=== PATIENT | male | born 1950 | race Caucasian/White ===

== ENCOUNTER 2020-03-23 05:42 | Inpatient (IN) | payer OTHER, SELFPAY ==
[2020-03-23 06:06] VITALS: BP 149/61; PULSE 60; RESP 18; TEMP 36.8; O2SAT 98; BMI 22.0
--- NOTE | 2020-03-23 06:43 | ED_ITS ---
HPI - Extremity Problem General Chief complaint: General Medical Stated complaint: SWOLLEN HAND/INJURY Time Seen by Provider: 03/23/20 06:42 Source: patient Mode of arrival: ambulatory Limitations: no limitations History of Present Illness HPI Narrative: working on tractor screw punctured L hand near thenar eminence, removed it cleansed, hand swollen with fevers and now has streaking rash up arm MD Complaint: extremity pain and extremity swelling Onset (ago): day(s) (yesterday) Pain Consistency: constant Location: left Quality: stabbing and aching Radiation: none Relieving factors: nothing Exacerbating factors: range of motion Associated symptoms: fever and rash Context: recent travel Related Data Allergies Allergy/AdvReac Type Severity Reaction Status Date / Time aspirin Allergy Unknown Unknown Verified 03/23/20 07:05 gabapentin [Neurontin] Allergy Unknown Unknown Verified 03/23/20 07:05 Codeine Sulfate AdvReac Unknown vomiting Uncoded 05/29/16 00:00 Review of Systems Review of Systems: Constitutional : pos Fever, No Chills ENT/Mouth : No sore throat, No Rhinorrhea Eyes: No Eye Pain, No Swelling, No Redness Cardiovascular : No Chest Pain, No SOB Respiratory : No Cough, No Sputum Gastrointestinal : No Nausea, No Vomiting, No Diarrhea, No abdominal Pain Genitourinary : No Dysuria, No Hematuria Musculoskeletal : pos joint pain, No Myalgias, No Joint Swelling Skin : pos Skin Lesions, positive skin rash Neuro : No Weakness, No Numbness, No Headache Psych : No Anxiety, No Depression Heme/Lymph: No Bruising, No Bleeding,No Lymphadenopathy Endocrine : No Polyuria, No Polydipsia All other systems reviewed and are negative [facility] Past Medical History Medical History Back pain Diaphragm injury Herniated disc Liver laceration Pelvis fracture Sciatica Surgical History H/O ankle fusion H/O knee surgery Social History Social History (Updated 03/23/20 @ 07:06 by Teena Durand DO) Smoking Status: Never smoker Use of substances other than those prescribed or required for medical reasons: No Advance Directives: No Physical Exam Vital Signs: Vital Signs: Last Vital Signs Temp 98.2 F 03/23/20 06:06 Pulse 60 03/23/20 06:06 Resp 18 03/23/20 06:06 BP 149/61 H 03/23/20 06:06 Pulse Ox 98 03/23/20 06:06 Body Mass Index 22.0 Appearance: Alert. Oriented X3. No acute distress. Eyes: Pupils equal, round and reactive to light. ENT: Pharynx normal. Neck: Normal inspection. Neck supple. CVS: Normal heart rate and rhythm. Pulses normal. Respiratory: No respiratory distress. Breath sounds normal. Abdomen: Soft and nontender. Skin: Skin warm and dry. L arm lymphangitis to elbow, L hand swollen thenar eminence with puncture wound no drainage swelling on palmar and dorsum of hand, ROM intact, NV intact Extremities: No lower extremity edema. No calf ttp Neuro: Oriented X 3. No motor deficit. No sensory deficit. Course Course Course Narrative: message sent to Dr. Dobbins with pictures of hand Dr. Dobbins has seen the patient in the hospital - no need for surgery at this time, will admit for IV antibiotics given cellulitis/fevers/lymphangitis MDM - Extremity (Nontraumatic) MDM Narrative Medical decision making narrative: 69 yo male with puncture wound to left hand now with cellulitis and swelling, lymphangitis will need labs, cultures, xray for retained FB, IV antibiotics discuss with Dr. Dobbins will need admission for IV antibiotics Lab Data Result diagrams: 03/23/20 07:42 03/23/20 07:42 Labs: Lab Results 03/23/20 03/23/20 03/23/20 Range/Units 06:38 06:38 06:38 WBC 10.0 (4.8-10.8) X10*3/uL RBC 4.54 L (4.60-5.80) X10*6/uL Hgb 13.4 L (14.0-18.0) g/dl Hct 41.0 L (42-52) % MCV 90.3 (80-98) fL MCH 29.5 (27.0-33.0) pg MCHC 32.7 (31.0-36.0) g/dl RDW 12.1 (11.0-16.0) % Plt Count 214 (160-400) X10*3/uL MPV 9.8 (9.4-12.4) fL Immature Gran % (Auto) 0.3 (0.0-0.4) % Neut % (Auto) 78.4 H (45-73) % Lymph % (Auto) 10.6 L (20-40) % [place] % (Auto) 9.0 (2-11) % Eos % (Auto) 1.5 (0-4) % Baso % (Auto) 0.2 (0-2) % Lymph # (Auto) 1.1 L (1.2-4.9) X10*3/uL [place] # (Auto) 0.9 (0.1-1.2) X10*3/uL Eos # (Auto) 0.2 (0.0-0.4) X10*3/uL Baso # (Auto) 0.0 (0.0-0.2) X10*3/uL Abs Immat Gran (auto) 0.03 (0.00-0.03) X10*3/uL Absolute Neuts (auto) 7.8 (2.0-8.3) X10*3/uL Absolute Nucleated RBC 0.000 (0.0-0.012) X10*3/uL Nucleated RBC % (auto) 0.0 (0.0-0.2) /100WBC PT (10.8-13.0) SEC INR (0.9-1.1) APTT (24.1-38.0) SEC Hold Blue Top Sodium Cancelled Potassium Cancelled Chloride Cancelled Carbon Dioxide Cancelled Anion Gap Cancelled BUN Cancelled Creatinine Cancelled Estim Creat Clear Calc Cancelled Estimated GFR Cancelled Random Glucose Cancelled Lactic Acid 1.5 (0.5-2.0) mmol/L Calcium Cancelled Magnesium (1.6-2.6) mg/dL Total Bilirubin Cancelled Direct Bilirubin (0.0-0.5) mg/dL AST Cancelled ALT Cancelled Alkaline Phosphatase Cancelled Total Protein Cancelled Albumin Cancelled COVID-19 (MILIND) (Negative) COVID-19 Clin Com 03/23/20 03/23/20 03/23/20 Range/Units 07:42 07:42 07:42 WBC 9.5 (4.8-10.8) X10*3/uL RBC 4.36 L (4.60-5.80) X10*6/uL Hgb 12.8 L (14.0-18.0) g/dl Hct 39.3 L (42-52) % MCV 90.1 (80-98) fL MCH 29.4 (27.0-33.0) pg MCHC 32.6 (31.0-36.0) g/dl RDW 12.0 (11.0-16.0) % Plt Count 205 (160-400) X10*3/uL MPV 10.0 (9.4-12.4) fL Immature Gran % (Auto) 0.3 (0.0-0.4) % Neut % (Auto) 78.8 H (45-73) % Lymph % (Auto) 10.4 L (20-40) % [place] % (Auto) 8.8 (2-11) % Eos % (Auto) 1.5 (0-4) % Baso % (Auto) 0.2 (0-2) % Lymph # (Auto) 1.0 L (1.2-4.9) X10*3/uL [place] # (Auto) 0.8 (0.1-1.2) X10*3/uL Eos # (Auto) 0.1 (0.0-0.4) X10*3/uL Baso # (Auto) 0.0 (0.0-0.2) X10*3/uL Abs Immat Gran (auto) 0.03 (0.00-0.03) X10*3/uL Absolute Neuts (auto) 7.5 (2.0-8.3) X10*3/uL Absolute Nucleated RBC 0.000 (0.0-0.012) X10*3/uL Nucleated RBC % (auto) 0.0 (0.0-0.2) /100WBC PT 12.3 (10.8-13.0) SEC INR 1.0 (0.9-1.1) APTT 31.4 (24.1-38.0) SEC Hold Blue Top SEE NOTE Sodium 138 Potassium 4.2 Chloride 103 Carbon Dioxide 28 Anion Gap 11 L BUN 11 Creatinine 0.90 Estim Creat Clear Calc 71.0 Estimated GFR > 60 Random Glucose 97 Lactic Acid (0.5-2.0) mmol/L Calcium 8.8 Magnesium 2.0 (1.6-2.6) mg/dL Total Bilirubin 0.8 Direct Bilirubin 0.4 (0.0-0.5) mg/dL AST 15 ALT 11 Alkaline Phosphatase 67 Total Protein 6.1 L Albumin 3.9 COVID-19 (MILIND) (Negative) COVID-19 Clin Com 03/23/20 03/23/20 Range/Units 07:42 07:42 WBC (4.8-10.8) X10*3/uL RBC (4.60-5.80) X10*6/uL Hgb (14.0-18.0) g/dl Hct (42-52) % MCV (80-98) fL MCH (27.0-33.0) pg MCHC (31.0-36.0) g/dl RDW (11.0-16.0) % Plt Count (160-400) X10*3/uL MPV (9.4-12.4) fL Immature Gran % (Auto) (0.0-0.4) % Neut % (Auto) (45-73) % Lymph % (Auto) (20-40) % [place] % (Auto) (2-11) % Eos % (Auto) (0-4) % Baso % (Auto) (0-2) % Lymph # (Auto) (1.2-4.9) X10*3/uL [place] # (Auto) (0.1-1.2) X10*3/uL Eos # (Auto) (0.0-0.4) X10*3/uL Baso # (Auto) (0.0-0.2) X10*3/uL Abs Immat Gran (auto) (0.00-0.03) X10*3/uL Absolute Neuts (auto) (2.0-8.3) X10*3/uL Absolute Nucleated RBC (0.0-0.012) X10*3/uL Nucleated RBC % (auto) (0.0-0.2) /100WBC PT (10.8-13.0) SEC INR (0.9-1.1) APTT (24.1-38.0) SEC Hold Blue Top Sodium Potassium Chloride Carbon Dioxide Anion Gap BUN Creatinine Estim Creat Clear Calc Estimated GFR Random Glucose Lactic Acid 0.5 (0.5-2.0) mmol/L Calcium Magnesium (1.6-2.6) mg/dL Total Bilirubin Direct Bilirubin (0.0-0.5) mg/dL AST ALT Alkaline Phosphatase Total Protein Albumin COVID-19 (MILIND) Negative (Negative) COVID-19 Clin Com See Note Discharge Plan Discharge Clinical Impression: Cellulitis, Puncture wound Patient Disposition: Admitted As Inpatient
--- NOTE | 2020-03-23 06:43 | XR_ITS ---
EXAMINATION: LEFT HAND 3 VIEWS CLINICAL INFORMATION: Concern for foreign body. COMPARISON: None. TECHNIQUE: PA, lateral, oblique views of the left hand were obtained. FINDINGS: There are no fractures or dislocations. There is no significant soft tissue swelling. There is mild degenerative change at the first carpal metacarpal joint. There are no demonstrable radiopaque foreign bodies. XR/XR hand LT min 3V IMPRESSION: No demonstrable radiopaque foreign bodies.
[2020-03-23 06:46] LABS: MANUAL DIFF FLAG NO
[2020-03-23 06:53] LABS: Basophils Percent Auto 0.2 % (0-2); Eosinophils Absolute Auto 0.2 X10*3/uL (0.0-0.4); Eosinophils Percent Auto 1.5 % (0-4); Hemoglobin 13.4 g/dl (14.0-18.0); Imm Gran Abs Auto 0.03 X10*3/uL (0.00-0.03); Imm Gran Pct Auto 0.3 % (0.0-0.4); Lymphocytes Absolute Auto 1.1 X10*3/uL (1.2-4.9); Lymphocytes Percent Auto 10.6 % (20-40); Mean Corpuscular HGB Conc 32.7 g/dl (31.0-36.0); Mean Corpuscular Hemoglobin 29.5 pg (27.0-33.0); Mean Corpuscular Volume 90.3 fL (80-98); Mean Platelet Volume 9.8 fL (9.4-12.4); Monocytes Absolute Auto 0.9 X10*3/uL (0.1-1.2); Neutrophils Absolute Auto 7.8 X10*3/uL (2.0-8.3); Neutrophils Percent Auto 78.4 % (45-73); Platelet Count 214 X10*3/uL (160-400); Red Blood Count 4.54 X10*6/uL (4.60-5.80); Red Cell Distribution Width 12.1 % (11.0-16.0)
--- NOTE | 2020-03-23 07:06 | PC.NURSE ---
REPORT FROM LUZMARIA ZAPIEN.
[2020-03-23 07:09] LABS: Lactic Acid 1.5 mmol/L (0.5-2.0)
[2020-03-23 07:51] LABS: MANUAL DIFF FLAG NO
[2020-03-23 07:52] LABS: Basophils Percent Auto 0.2 % (0-2); Eosinophils Absolute Auto 0.1 X10*3/uL (0.0-0.4); Eosinophils Percent Auto 1.5 % (0-4); Hematocrit 39.3 % (42-52); Hemoglobin 12.8 g/dl (14.0-18.0); Imm Gran Abs Auto 0.03 X10*3/uL (0.00-0.03); Imm Gran Pct Auto 0.3 % (0.0-0.4); Lymphocytes Percent Auto 10.4 % (20-40); Mean Corpuscular HGB Conc 32.6 g/dl (31.0-36.0); Mean Corpuscular Hemoglobin 29.4 pg (27.0-33.0); Mean Corpuscular Volume 90.1 fL (80-98); Monocytes Absolute Auto 0.8 X10*3/uL (0.1-1.2); Monocytes Percent Auto 8.8 % (2-11); Neutrophils Absolute Auto 7.5 X10*3/uL (2.0-8.3); Neutrophils Percent Auto 78.8 % (45-73); Platelet Count 205 X10*3/uL (160-400); Red Blood Count 4.36 X10*6/uL (4.60-5.80); White Blood Count 9.5 X10*3/uL (4.8-10.8)
[2020-03-23 07:56] LABS: Prothrombin Time 12.3 SEC (10.8-13.0)
[2020-03-23] MEDS: Piperacillin Sodium/Tazobactam 3.375 GM in 0.9 % Sodium Chloride 50 ML IV ×3 (07:58→20:11)
[2020-03-23 07:59] LABS: Partial Thromboplastin Time 31.4 SEC (24.1-38.0)
[2020-03-23 08:08] LABS: Lactic Acid 0.5 mmol/L (0.5-2.0)
[2020-03-23 08:12] LABS: Alanine Aminotransferase 11 U/L (0-40); Albumin Level 3.9 g/dL (3.5-5.0); Alkaline Phosphatase 67 U/L (39-117); Anion Gap 11 (12-20); Aspartate Amino Transferase 15 U/L (5-37); Bilirubin Direct 0.4 mg/dL (0.0-0.5); Bilirubin Total 0.8 mg/dL (0.0-1.0); Blood Urea Nitrogen 11 mg/dL (9-16); Calcium 8.8 mg/dL (8.4-10.2); Carbon Dioxide 28 mmol/L (22-29); Chloride 103 mmol/L (96-108); Estimated Glomerular Filt Rate > 60; Glucose Random 97 mg/dL (60-115); Potassium 4.2 mmol/l (3.3-5.1); Sodium 138 mmol/L (135-145); Total Protein 6.1 g/dL (6.5-8.0)
[2020-03-23 08:15] LABS: COVID-19 Test Negative (Negative)
[2020-03-23] MEDS: vancomycin HCL 750 MG in 0.9 % Sodium Chloride 250 ML 265 MG IV ×2 (08:23→20:56)
[2020-03-23] MEDS: 0.9 % Sodium Chloride 500 ML IV (08:26)
[2020-03-23 10:00] VITALS: BP 136/58; PULSE 58; RESP 18; O2SAT 98
--- NOTE | 2020-03-23 10:10 | P.HPHOSP_ITS ---
History of Present Illness Date of Service: 03/23/20 Chief Complaint: fever, chills, left hand injury 69M complaining of fever, chills. patient had injury to left hand on day ptp. he was fixing a lawnmower and a spring penetrating his skin. that evening he had fever and chills that resolved with tylenol. the next day he noted red streaking from hand up arm so he came to ED. in ED patient was afebrile, no signs of sepsis, but had lymphagenic streaking, therefore, hand surgeon consulted who recommended admission for IV abx. xray of hand showed no retained foreign body. ROM is ok, patient was given tDAP, vanc, zosyn. Review of Systems Review of Systems: Constitutional: fever, Chills Eyes: denies blurry vision ENT: denies sore throat CVS: denies chest pain Respiratory: Denies dyspnea GI: no abdominal pain : denies dysuria MSK: denies neck pain Skin: red streaking Neuro: denies specific motor weakness Psych: denies suicidal ideation Endocrine: denies heat/cold intoleratnce Hematologic: denies easy bleeding Allergy: denies hives [facility] Medical History (Updated 03/23/20 @ 09:49 by Aleksey Coats MD) Diaphragm injury Liver laceration Pelvis fracture Sciatica Small bowel obstruction Family History Mother Colon cancer Sister Pancreatic cancer Surgical History H/O ankle fusion H/O knee surgery Social History (Updated 03/23/20 @ 09:51 by Aleksey Coats MD) Smoking Status: Former smoker Use of substances other than those prescribed or required for medical reasons: No Advance Directives: No Meds Allergies Allergy/AdvReac Type Severity Reaction Status Date / Time aspirin Allergy Unknown Unknown Verified 03/23/20 07:05 gabapentin [Neurontin] Allergy Unknown Unknown Verified 03/23/20 07:05 Codeine Sulfate AdvReac Unknown vomiting Uncoded 05/29/16 00:00 Home Medications Medication Instructions Recorded Confirmed Type lansoprazole 60 mg PO DAILY@1500 03/23/20 03/23/20 History lovastatin 20 mg PO DAILY@1500 03/23/20 03/23/20 History oxycodone 5 mg PO BID@1900,0000 PRN 03/23/20 03/23/20 History ropinirole 0.25 mg PO DAILY@1500 03/23/20 03/23/20 History Physical Exam Vital Signs and Narrative: Vital Signs: Last Vital Signs Temp 98.2 F 03/23/20 06:06 Pulse 58 03/23/20 10:00 Resp 18 03/23/20 10:00 BP 136/58 L 03/23/20 10:00 Pulse Ox 98 03/23/20 10:00 Body Mass Index 22.0 General: no acute distress HEENT: atraumatic Neck: normal to visual inspection CVS: S1, S2, RRR Resp: CTA bilateral Chest: non tender GI: soft, non tender, non distended : no CVA tenderness Skin: left hand minimal swelling, red streaking up arm, decent ROM, no loss of sensation Extremities: no edema Neuro: Oriented X3, grossly intact Psych: cooperative, Results Labs CBC and Chem 7: 03/23/20 07:42 03/23/20 07:42 Labs: Laboratory Results - last 24 hr 03/23/20 03/23/20 03/23/20 06:38 06:38 06:38 MCV 90.3 MCH 29.5 MCHC 32.7 RDW 12.1 Plt Count 214 MPV 9.8 Immature Gran % (Auto) 0.3 Neut % (Auto) 78.4 H Lymph % (Auto) 10.6 L [place] % (Auto) 9.0 Eos % (Auto) 1.5 Baso % (Auto) 0.2 Lymph # (Auto) 1.1 L [place] # (Auto) 0.9 Eos # (Auto) 0.2 Baso # (Auto) 0.0 Abs Immat Gran (auto) 0.03 Absolute Neuts (auto) 7.8 Absolute Nucleated RBC 0.000 Nucleated RBC % (auto) 0.0 PT INR APTT Hold Blue Top Anion Gap Cancelled Estim Creat Clear Calc Cancelled Estimated GFR Cancelled Random Glucose Cancelled Lactic Acid 1.5 Calcium Cancelled Magnesium Total Bilirubin Cancelled Direct Bilirubin AST Cancelled ALT Cancelled Alkaline Phosphatase Cancelled Total Protein Cancelled Albumin Cancelled COVID-19 (MILIND) COVID-19 Clin Com 03/23/20 03/23/20 03/23/20 07:42 07:42 07:42 MCV 90.1 MCH 29.4 MCHC 32.6 RDW 12.0 Plt Count 205 MPV 10.0 Immature Gran % (Auto) 0.3 Neut % (Auto) 78.8 H Lymph % (Auto) 10.4 L [place] % (Auto) 8.8 Eos % (Auto) 1.5 Baso % (Auto) 0.2 Lymph # (Auto) 1.0 L [place] # (Auto) 0.8 Eos # (Auto) 0.1 Baso # (Auto) 0.0 Abs Immat Gran (auto) 0.03 Absolute Neuts (auto) 7.5 Absolute Nucleated RBC 0.000 Nucleated RBC % (auto) 0.0 PT 12.3 INR 1.0 APTT 31.4 Hold Blue Top SEE NOTE Anion Gap 11 L Estim Creat Clear Calc 71.0 Estimated GFR > 60 Random Glucose 97 Lactic Acid Calcium 8.8 Magnesium 2.0 Total Bilirubin 0.8 Direct Bilirubin 0.4 AST 15 ALT 11 Alkaline Phosphatase 67 Total Protein 6.1 L Albumin 3.9 COVID-19 (MILIND) COVID-19 [employer] Com 03/23/20 03/23/20 07:42 07:42 MCV MCH MCHC RDW Plt Count MPV Immature Gran % (Auto) Neut % (Auto) Lymph % (Auto) [place] % (Auto) Eos % (Auto) Baso % (Auto) Lymph # (Auto) [place] # (Auto) Eos # (Auto) Baso # (Auto) Abs Immat Gran (auto) Absolute Neuts (auto) Absolute Nucleated RBC Nucleated RBC % (auto) PT INR APTT Hold Blue Top Anion Gap Estim Creat Clear Calc Estimated GFR Random Glucose Lactic Acid 0.5 Calcium Magnesium Total Bilirubin Direct Bilirubin AST ALT Alkaline Phosphatase Total Protein Albumin COVID-19 (MILIND) Negative COVID-19 Clin Com See Note Imaging Radiologist's Impressions: Impressions Hand X-Ray 03/23/20 06:43 IMPRESSION: No demonstrable radiopaque foreign bodies. Assessment and Plan (1) Cellulitis: Qualifiers: Laterality: left Site of cellulitis: extremity Site of cellulitis of extremity: upper extremity Qualified Code(s): L03.114 - Cellulitis of left upper limb Status: Acute (2) Puncture wound: Status: Acute (3) [place] esophagus: Status: Acute (4) Restless leg syndrome: Status: Acute (5) HLD (hyperlipidemia): Status: Acute (6) Osteoarthritis: Status: Acute 69M presented with fevers and puncture wound hand injury/cellulitis vanc, zosyn, monitor saira esophogus continue ppi hld statin OA oxycodone RLS ropinirole
--- NOTE | 2020-03-23 10:56 | PM.CNOR ---
History of Present Illness HPI Consult date: 03/23/20 Consult reason: other (Left hand pain, swelling, puncture wound) Chief complaint: SWOLLEN HAND/INJURY Narrative: The patient is a 69-year-old man who sustained a puncture wound to the thenar aspect of his left hand yesterday while working a tractor. He woke up this morning with increased pain and swelling after a night with fevers and chills. He is seen today in the emergency department. He denies any problems with numbness and tingling in his fingers. PENDING SALE TO [facility] Past Medical History Medical History (Updated 03/23/20 @ 11:06 by Mini Dobbins MD) Diaphragm injury Liver laceration Pelvis fracture Sciatica Small bowel obstruction Family History Family History Mother Colon cancer Sister Pancreatic cancer Surgical History Surgical History H/O ankle fusion H/O knee surgery Social History Social History (Updated 03/23/20 @ 09:51 by Aleksey Coats MD) Smoking Status: Former smoker Use of substances other than those prescribed or required for medical reasons: No Advance Directives: No Meds Allergies Allergy/AdvReac Type Severity Reaction Status Date / Time aspirin Allergy Unknown Unknown Verified 03/23/20 07:05 gabapentin [Neurontin] Allergy Unknown Unknown Verified 03/23/20 07:05 Codeine Sulfate AdvReac Unknown vomiting Uncoded 05/29/16 00:00 Home Medications Medication Instructions Recorded Confirmed Type lansoprazole 60 mg PO DAILY@1500 03/23/20 03/23/20 History lovastatin 20 mg PO DAILY@1500 03/23/20 03/23/20 History oxycodone 5 mg PO BID@1900,0000 PRN 03/23/20 03/23/20 History ropinirole 0.25 mg PO DAILY@1500 03/23/20 03/23/20 History Physical Exam Vital Signs: Vital Signs: Last Vital Signs Temp 98.2 F 03/23/20 06:06 Pulse 58 03/23/20 10:00 Resp 18 03/23/20 10:00 BP 136/58 L 03/23/20 10:00 Pulse Ox 98 03/23/20 10:00 Body Mass Index 22.0 Const: General: cooperative, healthy appearing and no acute distress Orientation/consciousness: oriented to person and oriented to place HENMT: Head: Yes normocephalic and Yes atraumatic Eyes: EOM: EOMs intact bilaterally Resp: Effort & Inspection: normal respiratory effort and able to speak in complete sentences Cardio: Jugular venous distension: no JVD Skin: General skin exam: turgor normal Rashes: no rashes Neuro: General: oriented to person and oriented to place Extrem: Other: Evaluation of left Upper Extremity: Neuro: Median, ulnar, radial nerves motor and sensory grossly intact. Vascular: Cap refill brisk. ROM: Can bring fingers closed to a fist and back out to full or nearly full extension. Painless flexion and extension of all digits including the left thumb. Can oppose thumb to all fingertips Smooth and painless left wrist ROM Skin: He has got an approximately 4-5 mm wound over the thenar aspect of his left hand. It is crusted over without any drainage. He is tender to palpation in the thenar eminence near this puncture wound, but the area is soft and without any fluctuance. He has good active range of motion of his left thumb and other digits without significant discomfort. General: He does have some mild swelling in the thenar aspect of his left hand and does appear to have lymphangitis extending up the volar aspect of his left forearm to the mid forearm. Radiographs: Radiographs of his left hand show no evidence of metallic foreign body. This Psych: Appearance: grossly normal Affect: normal affect Attitude: cooperative Results Labs Result Diagrams: 03/23/20 07:42 03/23/20 07:42 Labs: Abnormal lab results 03/23/20 03/23/20 03/23/20 Range/Units 06:38 07:42 07:42 RBC 4.54 L 4.36 L (4.60-5.80) X10*6/uL Hgb 13.4 L 12.8 L (14.0-18.0) g/dl Hct 41.0 L 39.3 L (42-52) % Neut % (Auto) 78.4 H 78.8 H (45-73) % Lymph % (Auto) 10.6 L 10.4 L (20-40) % Lymph # (Auto) 1.1 L 1.0 L (1.2-4.9) X10*3/uL Anion Gap 11 L (12-20) Total Protein 6.1 L (6.5-8.0) g/dL H & H 03/23/20 03/23/20 Range/Units 06:38 07:42 Hgb 13.4 L 12.8 L (14.0-18.0) g/dl Hct 41.0 L 39.3 L (42-52) % Coagulation 03/23/20 Range/Units 07:42 INR 1.0 (0.9-1.1) All other labs normal. Assessment and Plan (1) Cellulitis of left hand: Status: Acute He has a puncture wound in the thenar aspect of his left hand with evidence of cellulitis and lymphangitis. At present he has no evidence of flexor tenosynovitis or the deep space hand infection. No operative treatment required at this time. Recommend medical management IV antibiotics.
[2020-03-23 11:11] VITALS: BP 140/59; PULSE 58; RESP 16; TEMP 36.8; O2SAT 98
--- NOTE | 2020-03-23 13:06 | PC.NURSE ---
REPORT ATTEMPTED. THEY WILL CALL BACK
--- NOTE | 2020-03-23 13:30 | PC.NURSE ---
gave report darren rn
[2020-03-23] MEDS: Omeprazole 40 MG CAPSULE.DR PO (14:34)
[2020-03-23] MEDS: Pravastatin Sodium 20 MG TABLET PO (14:34)
[2020-03-23] MEDS: rOPINIRole HCL 0.25 MG TABLET PO (14:34)
[2020-03-23] MEDS: oxyCODONE HCl Immed Release 5 MG TABLET PO ×2 (14:34→22:21)
[2020-03-23] MEDS: Enoxaparin Sodium 40 MG/0.4 ML SYRINGE SUBCUT (14:35)
[2020-03-23 15:29] VITALS: BP 158/88; PULSE 65; RESP 18; TEMP 36.3; O2SAT 97
[2020-03-23] MEDS: 0.9 % Sodium Chloride Flush 3 ML SYRINGE IVFLUSH (20:11)
[2020-03-23 23:25] VITALS: BP 105/52; PULSE 50; RESP 16; TEMP 36.3; O2SAT 96
[2020-03-24] MEDS: Piperacillin Sodium/Tazobactam 3.375 GM in 0.9 % Sodium Chloride 50 ML IV ×2 (01:59→08:04)
[2020-03-24 06:59] LABS: MANUAL DIFF FLAG NO
[2020-03-24 07:15] LABS: Basophils Percent Auto 0.2 % (0-2); Eosinophils Absolute Auto 0.2 X10*3/uL (0.0-0.4); Eosinophils Percent Auto 1.7 % (0-4); Hematocrit 39.7 % (42-52); Hemoglobin 12.9 g/dl (14.0-18.0); Imm Gran Abs Auto 0.03 X10*3/uL (0.00-0.03); Imm Gran Pct Auto 0.3 % (0.0-0.4); Lymphocytes Absolute Auto 0.9 X10*3/uL (1.2-4.9); Lymphocytes Percent Auto 10.1 % (20-40); Mean Corpuscular HGB Conc 32.5 g/dl (31.0-36.0); Mean Corpuscular Hemoglobin 29.3 pg (27.0-33.0); Mean Corpuscular Volume 90.2 fL (80-98); Mean Platelet Volume 10.2 fL (9.4-12.4); Monocytes Absolute Auto 0.6 X10*3/uL (0.1-1.2); Monocytes Percent Auto 6.8 % (2-11); Neutrophils Percent Auto 80.9 % (45-73); Platelet Count 207 X10*3/uL (160-400); White Blood Count 8.6 X10*3/uL (4.8-10.8)
[2020-03-24 07:51] LABS: Anion Gap 11 (12-20); Blood Urea Nitrogen 10 mg/dL (9-16); Calcium 8.6 mg/dL (8.4-10.2); Carbon Dioxide 28 mmol/L (22-29); Chloride 106 mmol/L (96-108); Creatinine Clr Calc Pharmacy 75.2; Estimated Glomerular Filt Rate > 60; Glucose Random 103 mg/dL (60-115); Sodium 141 mmol/L (135-145)
[2020-03-24 08:00] VITALS: BP 148/71; PULSE 54; RESP 18; TEMP 36.3; O2SAT 97
[2020-03-24] MEDS: 0.9 % Sodium Chloride Flush 3 ML SYRINGE IVFLUSH (08:05)
--- NOTE | 2020-03-24 09:08 | PM.DS ---
DS: Providers Provider Date of admission: 03/23/20 10:18 Primary care physician: Unknown Physician Consults: 03/23/20 08:51 Consult to Orthopedics Stat Consulting Provider: Mini Dobbins Reason for consultation: L hand infection Has provider been notified: Yes DS: Diagnosis Discharge Diagnosis (1) Cellulitis of left hand: Status: Acute DS: Medications Discharge Medications Home Medications: Home Medications Medication Instructions Recorded Confirmed lansoprazole 60 mg PO DAILY@1500 03/23/20 03/23/20 lovastatin 20 mg PO DAILY@1500 03/23/20 03/23/20 oxycodone 5 mg PO BID@1900,0000 PRN 03/23/20 03/23/20 ropinirole 0.25 mg PO DAILY@1500 03/23/20 03/23/20 Previous Rx's Medication Instructions Recorded amoxicillin-pot clavulanate 1 tab PO Q12H #14 tab 03/24/20 [Augmentin] doxycycline hyclate 100 mg PO BID #14 cap 03/24/20 DS: Summary Hospital Course Hospital Course: patient was admitted for left hand cellulitis due to puncture with foreign body. He was treated with vancomycin and Zosyn. He had no fevers while in hospital, his erythema improved. He was seen by Hand surgery who recommended antibiotics, no need for intervention. His x-ray of his hand showed no retained foreign body. Patient is now doing better and will be discharged home on 7 more days of doxycycline and Augmentin. Time Spent with Patient Time attestation: Total time spent providing and/or coordinating discharge services: Physical Exam Vital Signs: Vital Signs: Last Vital Signs Temp 97.3 F 03/24/20 08:00 Pulse 54 03/24/20 08:00 Resp 18 03/24/20 08:00 BP 148/71 H 03/24/20 08:00 Pulse Ox 97 03/24/20 08:00 Body Mass Index 22.0 General: AO X 3, no acute distress Resp: CTA bilateral CVS: S1,S2,RRR GI: soft, non tender, non distended Neuro: motor grossly intact Psych: appropriate affect left hand: puncture wound with some local inflammation, but overall swelling down and erythema resolved DS: Data Data Completed and Pending Labs on day of discharge: 03/23/20 06:38 Complete Blood Count Auto Diff Stat Lactic Acid Stat 03/23/20 06:43 XR hand LT min 3V Stat Piperacillin Sodium/Tazobactam [Zosyn] 3.375 gm 0.9 % Sodium Chloride [Ns] 50 ml IV ONCE vancomycin HCL 750 mg 0.9 % Sodium Chloride [Ns] 250 ml IV ONCE 03/23/20 06:45 0.9 % Sodium Chloride [Ns] 500 ml IV 500 mls/hr 03/23/20 07:29 vancomycin HCL 750 mg IV .STK-MED ONE 03/23/20 07:30 Piperacillin Sodium/Tazobactam [Zosyn] 3.375 gm IV .STK-MED ONE 03/23/20 07:42 Basic Metabolic Panel Stat COVID-19 ID NOW ([facility]) Stat Complete Blood Count Auto Diff Stat Hold Lt Blue - Possible Coag Stat Lactic Acid Stat Liver Panel Stat Magnesium Stat Partial Thromboplastin Time Stat Prothrombin Time INR Stat 03/23/20 08:02 Diphth,Pertuss(ACell),Tet Vacc [Boostrix TDAP] 0.5 ml IM .ONCE ONE 03/23/20 10:16 Transfer Order Routine 03/23/20 14:24 Piperacillin Sodium/Tazobactam [Zosyn] 3.375 gm IV .STK-MED ONE 03/23/20 19:59 Piperacillin Sodium/Tazobactam [Zosyn] 3.375 gm IV .STK-MED ONE 03/23/20 20:49 vancomycin HCL 750 mg IV .STK-MED ONE 03/24/20 01:54 Piperacillin Sodium/Tazobactam [Zosyn] 3.375 gm IV .STK-MED ONE 03/24/20 06:30 Basic Metabolic Panel DAILY@0600 Complete Blood Count Auto Diff DAILY@0600 03/24/20 07:52 Piperacillin Sodium/Tazobactam [Zosyn] 3.375 gm IV .STK-MED ONE Laboratory Last Values WBC 8.6 X10*3/uL (4.8-10.8) 03/24/20 06:30 RBC 4.40 X10*6/uL (4.60-5.80) L 03/24/20 06:30 Hgb 12.9 g/dl (14.0-18.0) L 03/24/20 06:30 Hct 39.7 % (42-52) L 03/24/20 06:30 MCV 90.2 fL (80-98) 03/24/20 06:30 MCH 29.3 pg (27.0-33.0) 03/24/20 06:30 MCHC 32.5 g/dl (31.0-36.0) 03/24/20 06:30 RDW 12.0 % (11.0-16.0) 03/24/20 06:30 Plt Count 207 X10*3/uL (160-400) 03/24/20 06:30 MPV 10.2 fL (9.4-12.4) 03/24/20 06:30 Immature Gran % (Auto) 0.3 % (0.0-0.4) 03/24/20 06:30 Neut % (Auto) 80.9 % (45-73) H 03/24/20 06:30 Lymph % (Auto) 10.1 % (20-40) L 03/24/20 06:30 [place] % (Auto) 6.8 % (2-11) 03/24/20 06:30 Eos % (Auto) 1.7 % (0-4) 03/24/20 06:30 Baso % (Auto) 0.2 % (0-2) 03/24/20 06:30 Lymph # (Auto) 0.9 X10*3/uL (1.2-4.9) L 03/24/20 06:30 [place] # (Auto) 0.6 X10*3/uL (0.1-1.2) 03/24/20 06:30 Eos # (Auto) 0.2 X10*3/uL (0.0-0.4) 03/24/20 06:30 Baso # (Auto) 0.0 X10*3/uL (0.0-0.2) 03/24/20 06:30 Abs Immat Gran (auto) 0.03 X10*3/uL (0.00-0.03) 03/24/20 06:30 Absolute Neuts (auto) 7.0 X10*3/uL (2.0-8.3) 03/24/20 06:30 Absolute Nucleated RBC 0.000 X10*3/uL (0.0-0.012) 03/24/20 06:30 Nucleated RBC % (auto) 0.0 /100WBC (0.0-0.2) 03/24/20 06:30 PT 12.3 SEC (10.8-13.0) 03/23/20 07:42 INR 1.0 (0.9-1.1) 03/23/20 07:42 APTT 31.4 SEC (24.1-38.0) 03/23/20 07:42 Hold Blue Top SEE NOTE 03/23/20 07:42 Sodium 141 mmol/L (135-145) 03/24/20 06:30 Potassium 4.0 mmol/l (3.3-5.1) 03/24/20 06:30 Chloride 106 mmol/L (96-108) 03/24/20 06:30 Carbon Dioxide 28 mmol/L (22-29) 03/24/20 06:30 Anion Gap 11 (12-20) L 03/24/20 06:30 BUN 10 mg/dL (9-16) 03/24/20 06:30 Creatinine 0.85 mg/dL (0.5-1.4) 03/24/20 06:30 Estim Creat Clear Calc 75.2 03/24/20 06:30 Estimated GFR > 60 03/24/20 06:30 Random Glucose 103 mg/dL (60-115) 03/24/20 06:30 Lactic Acid 0.5 mmol/L (0.5-2.0) 03/23/20 07:42 Calcium 8.6 mg/dL (8.4-10.2) 03/24/20 06:30 Magnesium 2.0 mg/dL (1.6-2.6) 03/23/20 07:42 Total Bilirubin 0.8 mg/dL (0.0-1.0) 03/23/20 07:42 Direct Bilirubin 0.4 mg/dL (0.0-0.5) 03/23/20 07:42 AST 15 U/L (5-37) 03/23/20 07:42 ALT 11 U/L (0-40) 03/23/20 07:42 Alkaline Phosphatase 67 U/L (39-117) 03/23/20 07:42 Total Protein 6.1 g/dL (6.5-8.0) L 03/23/20 07:42 Albumin 3.9 g/dL (3.5-5.0) 03/23/20 07:42 COVID-19 (MILIND) Negative (Negative) 03/23/20 07:42 COVID-19 Clin Com See Note 03/23/20 07:42 Preliminary micro results at discharge 03/23/20 06:38 Blood Culture - Preliminary Blood - Venous No growth after 24 hours. 03/23/20 06:38 Blood Culture - Preliminary Blood - Venous No growth after 24 hours. Discharge Plan Discharge Patient Disposition: Home, Self-Care Referrals: Physician,Unknown [Primary Care Provider] - Discharge Medications: New doxycycline hyclate 100 mg capsule 100 mg PO BID Qty: 14 RF: 0 amoxicillin-pot clavulanate [Augmentin] 875-125 mg tablet 1 tab PO Q12H Qty: 14 RF: 0 Continued ropinirole 0.25 mg Tablet 0.25 mg PO DAILY@1500 RF: 0 lansoprazole 30 mg Capsule,Delayed Release(Dr/Ec) 60 mg PO DAILY@1500 RF: 0 lovastatin 20 mg Tablet 20 mg PO DAILY@1500 RF: 0 oxycodone 5 mg Tablet 5 mg PO BID@1900,0000 PRN (Reason: Pain) RF: 0 Discharge Orders: Discharge Order (Routine); Ordered 03/24/20 Ordered By: Aleksey Coats Activity on Discharge: As tolerated Visit Report Forms: Patient Portal Discharge page Care Plan Goals: recovery Health Concerns: cellultis Plan of Treatment: doxy and augmentin for 7 days, monitor for fevers, redness, return to ED if symptoms worsen
--- NOTE | 2020-03-24 09:22 | MHC.CM.PN ---
PATIENT IS FULLY INDEPENDENT WITH HIS ADLS. HE DOES HAVE A SINGLE PRONG CANE THAT HE RELIES ON OCCASIONALLY HE GETS HIS MEDICATIONS [facility]ROUGH [facility]. CAR IS IN LOT, AND HE IS DISCHARGED TODAY WITH NO NEED FOR SERVICES.
== END 2020-03-24 10:31 | disposition home or self-care (01) | DRG 605 ==
LOC: HO.ED 08:53 → HO.S3 13:05
PROVIDERS: Admitting Provider Internal Medicine; Emergency Provider Emergency Medicine; Visit Provider Internal Medicine
DX: S61.432A Puncture wound without foreign body of left hand, initial encounter (principal); L03.114 Cellulitis of left upper limb; W45.0XXA Nail entering through skin, initial encounter; Y93.89 Activity, other specified; Y92.9 Unspecified place or not applicable; Y99.9 Unspecified external cause status; G25.81 Restless legs syndrome; M19.90 Unspecified osteoarthritis, unspecified site; K22.70 Barrett's esophagus without dysplasia; Z20.828 Contact with and (suspected) exposure to other viral communicable diseases; Z23 Encounter for immunization; Z87.891 Personal history of nicotine dependence; Z79.891 Long term (current) use of opiate analgesic; Z79.899 Other long term (current) drug therapy
CPT/HCPCS: 36415; 73130; 80048; 80053; 80076; 83605; 83735; 85025; 85610; 85730; 87040; 87635; 90471; 90715; 96365; 96367; 99283; 99285; J1650; J2543; J3370

== ENCOUNTER 2020-11-11 07:31 | Outpatient (REF) | payer OTHER, MEDICARE, SELFPAY ==
--- NOTE | ~2020-11-11 | CT_ITS ---
EXAMINATION: CT CHEST WITH CONTRAST CLINICAL INFORMATION: Follow-up lung nodule. Smoking history. COMPARISON: Previous chest CT scans most recent November 2018 TECHNIQUE: Multidetector volumetric CT imaging of the chest was obtained after the administration of 65 mL of Omnipaque 350 intravenous contrast without immediate adverse reactions. Axial MIP volume rendering provided. Sagittal and coronal reformatted images were obtained. This CT examination was performed using dose optimization techniques as appropriate, variously including the following: *Automated exposure control *Adjustment of mA and/or kV according to patient size (this includes techniques or standardized protocols for targeted exams where dose is matched to indication/reason for exam; i.e. extremities or head) *Use of iterative reconstruction technique DLP: 83 mGy-cm FINDINGS: OIL EXPERT: Unremarkable LUNGS: There are 2 peripheral or subpleural left lower lobe nodules that are unchanged. These measure 1 cm axial image 176 series 5 and 0.5 cm axial image 179 series 5. There is scarring or subsegmental atelectasis in the posterior medial right lower lobe adjacent to vertebral body bony osteophyte. The lungs are otherwise clear. MEDIASTINUM: There is mild coronary artery calcification. The mediastinum is otherwise normal. PLEURA: There is no pleural effusion. No pleural mass or thickening. AXILLA: No lymphadenopathy. UPPER ABDOMEN: Unremarkable OSSEOUS STRUCTURES: There are degenerative changes of the spine and scoliosis. There are degenerative changes at the shoulder joints. There is a periarticular soft tissue ossification adjacent to the right shoulder joint that is unchanged. There is old sternal and right rib fractures. CT/CT chest w con IMPRESSION: Stable pulmonary nodules.
[2020-11-11] MEDS: iohexoL 350 MG/ML 100 ML INFUS..BTL 65 ML IV (08:15)
== END 2020-11-11 07:32 | disposition home or self-care (01) ==
LOC: HO.CT 07:31
PROVIDERS: Visit Provider Internal Medicine
DX: R91.1 Solitary pulmonary nodule (principal)
CPT/HCPCS: 71260; Q9967

== ENCOUNTER 2020-11-21 11:46 | Inpatient (IN) | payer OTHER, MEDICARE, SELFPAY ==
[2020-11-21] VITALS (8 sets, daily range): BP systolic 113–134; BP diastolic 58–75; PULSE 66–109; RESP 16–20; TEMP 36.5–37.2; O2SAT 95–100; BMI 21.2
--- NOTE | ~2020-11-21 | CT_ITS ---
EXAMINATION: CT ABDOMEN AND PELVIS WITH CONTRAST CLINICAL INFORMATION: Nausea, vomiting and diarrhea and diffuse abdominal pain COMPARISON: Previous CT of the abdomen and pelvis January 2016 TECHNIQUE: Multidetector volumetric images were obtained from the superior aspect of the liver through the pubic symphysis following administration 85 mL of Omnipaque 350 intravenous contrast. Sagittal and coronal reformatted images were obtained on the technologist's workstation. Oral contrast: Yes This CT examination was performed using dose optimization techniques as appropriate, variously including the following: *Automated exposure control *Adjustment of mA and/or kV according to patient size (this includes techniques or standardized protocols for targeted exams where dose is matched to indication/reason for exam; i.e. extremities or head) *Use of iterative reconstruction technique DLP: 360 mGy-cm FINDINGS: LUNG BASES: There is a 1.1 cm left lower lobe nodule axial image 9 series 5 that is stable. There is a 5 mm left lower lobe nodule adjacent to the diaphragmatic pleural surface axial image 11 series 5 that is stable. LIVER, GALLBLADDER, AND BILIARY TREE: The liver is normal in size, shape, and attenuation. No focal hepatic lesion or biliary ductal dilatation is present. The gallbladder is upper normal in size. No gallstones are seen. PANCREAS: Unremarkable. SPLEEN: Unremarkable. ADRENAL GLANDS: Unremarkable. KIDNEYS AND URETERS: There are small left renal cysts. The kidneys are otherwise unremarkable. BLADDER: Unremarkable. GASTROINTESTINAL TRACT: There is diverticulosis of the colon. There is mild wall thickening of the distal left and sigmoid colon. Long segment distribution is more suggestive of colitis than diverticulitis. Sigmoid colon. There is also question of mild wall thickening of the distal small bowel versus changes due to underdistention. There are fluid-filled distended loops of small and large bowel suggestive of an ileus. There is no transition zone to suggest mechanical obstruction. The appendix is unremarkable. The stomach is not optimally distended. ABDOMINAL WALL: No significant hernia is appreciated. LYMPH NODES: Normal. VASCULAR: There is evidence of severe atherosclerotic disease. PELVIC VISCERA: There are radiation seeds in the prostate gland. OSSEOUS STRUCTURES: There are old right pelvic fractures. There are degenerative changes of the lumbar spine and severe scoliosis. There are degenerative changes at the hip joints. There is a sclerotic lesion in the right iliac bone that is stable and probably represents a bone island. CT/CT abdomen pelvis w con IMPRESSION: Fluid-filled loops of small and large bowel suggestive of an ileus. No transition zone to suggest mechanical obstruction. Diverticulosis of the colon. Areas of wall thickening of the distal left and sigmoid colon and small bowel questionable for colitis and enteritis. Upper normal-size gallbladder. No gallstone seen. Small left renal cysts. Radiation seeds in the prostate gland. Severe atherosclerotic disease. Stable left lower lobe pulmonary nodules.
--- NOTE | ~2020-11-21 | XR_ITS ---
EXAMINATION: XR CHEST CLINICAL INFORMATION: Diffuse abdominal pain. COMPARISON: CT chest 11/11/2020 TECHNIQUE: Frontal view of the chest was obtained. FINDINGS: The lungs are well-expanded and clear acute pneumonic process. Pulmonary nodules seen on the recent chest CT are not visualized well on this chest x-ray. Heart size and pulmonary vascularity is normal. There is mild scoliosis of lower dorsal and lumbar spine. XR/XR chest 1V IMPRESSION: No acute cardiopulmonary process seen.
--- NOTE | 2020-11-21 12:05 | ECG_ITS ---
Test Reason : NAUSEA Blood Pressure : / mmHG Vent. Rate : 072 BPM Atrial Rate : 072 BPM P-R Int : 128 ms QRS Dur : 084 ms QT Int : 362 ms P-R-T Axes : 076 083 076 degrees QTc Int : 396 ms Normal sinus rhythm Possible Left atrial enlargement Nonspecific T wave abnormality Abnormal ECG When compared with ECG of 18-NOV-2017 14:59, Nonspecific T wave abnormality now evident in Inferior leads Nonspecific T wave abnormality now evident in Lateral leads Referred By: Paris Izquierdo Electronically Signed By:Xavi Gastelum
[2020-11-21] MEDS: 0.9 % Sodium Chloride 1,000 ML 999 ML IVCONT (12:34)
[2020-11-21] MEDS: Morphine Sulfate 4 MG/ML CARTRIDGE IVPUSH ×3 (12:34→21:42)
[2020-11-21] MEDS: ondansetron HCL 4 MG/2 ML VIAL IVPUSH ×2 (12:34→16:44)
[2020-11-21 12:49] LABS: Prothrombin Time 11.7 SEC (9.9-13.0)
[2020-11-21 12:52] LABS: Basophils Percent Auto 0.1 % (0-2); Hematocrit 46.3 % (42-52); Hemoglobin 15.3 g/dl (14.0-18.0); Imm Gran Abs Auto 0.05 X10*3/uL (0.00-0.03); Imm Gran Pct Auto 0.3 % (0.0-0.4); Lymphocytes Absolute Auto 0.2 X10*3/uL (1.2-4.9); Lymphocytes Percent Auto 1.1 % (20-40); MANUAL DIFF FLAG SCAN; Mean Corpuscular Hemoglobin 29.1 pg (27.0-33.0); Mean Platelet Volume 10.2 fL (9.4-12.4); Monocytes Absolute Auto 0.7 X10*3/uL (0.1-1.2); Monocytes Percent Auto 4.4 % (2-11); Neutrophils Absolute Auto 14.6 X10*3/uL (2.0-8.3); Neutrophils Percent Auto 94.1 % (45-73); Platelet Count 214 X10*3/uL (160-400); Red Blood Count 5.26 X10*6/uL (4.60-5.80); Red Cell Distribution Width 12.3 % (11.0-16.0); SCAN SMEAR FLAG 1; White Blood Count 15.5 X10*3/uL (4.8-10.8)
[2020-11-21 13:13] LABS: SLIDE REVIEW VERIFIED
[2020-11-21 13:20] LABS: Lactic Acid 1.2 mmol/L (0.5-2.0)
--- NOTE | 2020-11-21 13:22 | ED_ITS ---
HPI - Nausea/Vomiting/Diarrhea General Chief complaint: Nausea/Vomiting/Diarrhea Stated complaint: n/v/d Time Seen by Provider: 11/21/20 12:04 Source: patient and EMS Mode of arrival: EMS Limitations: no limitations History of Present Illness HPI Narrative: 70-year-old male With a past medical history of Monterroso's e sophagus, prostate cancer, hyperlipidemia, lung nodule, osteoarthritis and restless leg syndrome presenting to the ED via EMS with complaints of nausea/vomiting/diarrhea with diffuse abdominal pain that started prior to arrival. Reports that he has vomited approximately 9 times. His also has abdominal pain with diarrhea although no nausea with vomiting. He reports that he ate a hamburger and some zucchini solid that his cooks yesterday that he believes was well cooked. He reports an associated fever of 101.0 prior to arrival with chills. He denies any headaches, dizziness, change in vision, chest pain, shortness of breath, palpitations, dyspnea on exertion, orthopnea, back pain, black or bloody stools, hematuria, dysuria, lower extremity edema, recent travel or any other symptoms complaints or concerns at this time MD elicited complaint: nausea, vomiting, diarrhea and abdominal pain Onset (ago): minute(s) Description of vomiting: bilious Description of diarrhea: watery Associated nausea: Yes Associated abdominal pain: Yes Location of pain: diffuse Pain consistency: constant Severity: severe Pain scale (0-10): 10 Quality: aching Exacerbating factors: vomiting Relieving factors: none Associated symptoms: fever/chills Treatment prior to arrival: other Related Data Home Medications Medication Instructions Recorded Confirmed lovastatin 20 mg PO DAILY 03/23/20 11/21/20 oxycodone 5 mg PO TID PRN 03/23/20 11/21/20 ropinirole 0.25 mg PO BEDTIME 03/23/20 11/21/20 omeprazole 20 mg PO DAILY 11/21/20 11/21/20 Allergies Allergy/AdvReac Type Severity Reaction Status Date / Time aspirin Allergy Unknown Unknown Verified 11/21/20 11:56 gabapentin [Neurontin] Allergy Unknown Unknown Verified 11/21/20 11:56 Codeine Sulfate AdvReac Unknown vomiting Uncoded 11/21/20 11:56 Review of Systems Review of Systems: Constitutional : + Fever, + Chills, No Night Sweats, No Fatigue, No Malaise Cardiovascular : No Chest Pain, No SOB Respiratory : No Cough, No Sputum, No Wheezing, No Dyspnea Gastrointestinal : + Nausea, + Vomiting, + Diarrhea, + abdominal Pain, No Hematochezia, No Melena Genitourinary : No irregular bleeding, No Dysuria, No Urinary Frequency, No Hematuria,No Urinary Incontinence, No Urgency, No Flank Pain Musculoskeletal : No joint pain, No Myalgias, No Joint Swelling Skin : No Skin Lesions, No rash Neuro : No Weakness, No Numbness, No Paresthesias, No Loss of Consciousness, No Dizziness, No Headache Heme/Lymph: No Lymphadenopathy Endocrine : No Temperature Intolerance Yes all other systems are reviewed and are negative Gastrointestinal: Gastrointestinal: Reports nausea PMFSH Past Medical History Attestation statement: The following information was validated with the patient. Medical History Diaphragm injury Liver laceration Lung nodule < 6cm on CT Pelvis fracture Sciatica Small bowel obstruction Surgical History H/O ankle fusion H/O knee surgery Family History Family History Mother Colon cancer Sister Pancreatic cancer Social History Social History Household Members: Spouse Housing: House Do you presently have visiting nurse or other home services: No Alcohol intake: current Alcohol intake frequency: a few times a month Alcohol type: beer Patient Tobacco Use Status: Former Tobacco user Quit Date: 1999 Cigarette Packs Per Day: 1 Use of substances other than those prescribed or required for medical reasons: No Substance Use Type: Marijuana Advance Directives: No Advance Directives Information Provided: No service: Yes Current occupational status: disabled Physical Exam Vital Signs: Vital Signs: Last Vital Signs Temp 99.0 F 11/21/20 12:58 Pulse 71 11/21/20 16:46 Resp 20 11/21/20 16:46 BP 134/66 11/21/20 16:46 Pulse Ox 97 11/21/20 16:46 Body Mass Index 21.2 vital signs have been reviewed as normal and appeared to be correct. Blood pressure normal. Heart rate tachycardic at 109. Respiration rate normal. Temperature normal. Oxygen saturation normal. Appearance: Alert. Oriented X3. No acute distress. Head: Normal external exam. Normocephalic. Eyes: PERRLA. EOMI. Conjunctiva and sclera normal. Eyelids normal. ENT: Pharynx normal. Uvula midline. Moist mucous membranes Neck: Normal inspection. Neck supple. FROM. No adenopathy. No meningeal signs. CVS: Normal heart rate and rhythm. Heart sound normal. No murmurs noted. Pulses normal throughout. Respiratory: No respiratory distress. Painless inspiration. Breath sounds normal. No wheezes/rales/rhonchi noted. Chest nontender. No accessory muscle usage noted or decreased air movement noted. Abdomen: Soft and moderate tenderness to palpation diffusely with guarding. Nondistended. No rigidity. Bowel sounds normal in all 4 quadrants. No distention noted. No organomegaly noted. No visible injury noted. No rebound tenderness. Negative Rovsing sign. Negative obturator's sign. Negative psoas sign. Negative Morales sign. Back: No CVA tenderness. Full range of motion noted. Skin: Skin warm and dry. Normal skin color. Normal skin turgor. No rashes/lesions/lacerations noted. Extremities: Extremities exhibit normal range of motion. Extremities nontender. Neuro: Oriented X 3. No motor deficit. No sensory deficit. Reflexes normal. Normal steady gait. Course Course Course Narrative: 12:05pm - 70-year-old male With a past medical history of Monterroso's esophagus, prostate cancer, hyperlipidemia, lung nodule, osteoarthritis and restless leg syndrome presenting to the ED via EMS with complaints of nausea/vomiting/diarrhea with diffuse abdominal pain that started prior to arrival. Plan: Labs, EKG, chest x-ray, blood cultures, lactic acid provide a L of IV flu ids, 4 mg of Zofran and 4 mg of morphine and obtain a CT scan of abdomen and pelvis with IV contrast and re-evaluate. Reevaluation(s) Reevaluation #1: - labs return patient [place] [id number]. This could be reactive from the nausea/vomiting/diarrhea that he had. BUN 19. Random glucose 124. Magnesium 1.5. Total bilirubin 1.3. Otherwise all other labs are within normal limits. Patient negative for COVID/RSV/flu. - chest x-ray within normal limits no acute processes are noted. - awaiting CT scan abdomen pelvis with IV contrast. Time: 13:00 Reevaluation #2: - CT scan abdomen pelvis revealed fluid-filled loops of small and large bowel suggestive of an ileus no obstruction noted at this time. Also questioning colitis and enteritis. - therefore consulted with the hospitalist for admission at this time. Patient understands agrees with this plan. Time: 17:38 MDM - Nausea/Vomiting/Diarrhea Medical Records Attestation: I reviewed the patient's medical records. Lab Data Attestation: I reviewed the patient's lab results. Result diagrams: 11/21/20 12:35 11/21/20 12:36 Labs: Lab Results 11/21/20 11/21/20 11/21/20 Range/Units 12:35 12:35 12:35 WBC 15.5 H (4.8-10.8) X10*3/uL RBC 5.26 (4.60-5.80) X10*6/uL Hgb 15.3 (14.0-18.0) g/dl Hct 46.3 (42-52) % MCV 88.0 (80-98) fL MCH 29.1 (27.0-33.0) pg MCHC 33.0 (31.0-36.0) g/dl RDW 12.3 (11.0-16.0) % Plt Count 214 (160-400) X10*3/uL MPV 10.2 (9.4-12.4) fL Immature Gran % (Auto) 0.3 (0.0-0.4) % Neut % (Auto) 94.1 H (45-73) % Lymph % (Auto) 1.1 L (20-40) % [place] % (Auto) 4.4 (2-11) % Eos % (Auto) 0.0 (0-4) % Baso % (Auto) 0.1 (0-2) % Lymph # (Auto) 0.2 L (1.2-4.9) X10*3/uL [place] # (Auto) 0.7 (0.1-1.2) X10*3/uL Eos # (Auto) 0.0 (0.0-0.4) X10*3/uL Baso # (Auto) 0.0 (0.0-0.2) X10*3/uL Abs Immat Gran (auto) 0.05 H (0.00-0.03) X10*3/uL Absolute Neuts (auto) 14.6 H (2.0-8.3) X10*3/uL Absolute Nucleated RBC 0.000 (0.0-0.012) X10*3/uL Nucleated RBC % (auto) 0.0 (0.0-0.2) /100WBC Smear Tech's Comments VERIFIED Hold Purple Top PT (9.9-13.0) SEC INR (0.9-1.1) Sodium (135-145) mmol/L Potassium (3.3-5.1) mmol/L Chloride (96-108) mmol/L Carbon Dioxide (22-29) mmol/L Anion Gap (12-20) BUN (9-16) mg/dL Creatinine (0.5-1.4) mg/dL Estim Creat Clear Calc Estimated GFR Random Glucose (60-115) mg/dL Lactic Acid 1.2 (0.5-2.0) mmol/L Calcium (8.4-10.2) mg/dL Magnesium (1.6-2.6) mg/dL Total Bilirubin (0.0-1.0) mg/dL AST (5-37) U/L ALT (0-40) U/L Alkaline Phosphatase (39-117) U/L B-Natriuretic Peptide 94 (<100) pg/mL Total Protein (6.5-8.0) g/dL Albumin (3.5-5.0) g/dL Lipase (8-78) U/L Coronavirus (PCR) (Negative) Influenza Type A (PCR) (Negative) Influenza Type B (PCR) (Negative) RSV RNA Qual (PCR) (Negative) 11/21/20 11/21/20 11/21/20 Range/Units 12:36 12:36 12:36 WBC (4.8-10.8) X10*3/uL RBC (4.60-5.80) X10*6/uL Hgb (14.0-18.0) g/dl Hct (42-52) % MCV (80-98) fL MCH (27.0-33.0) pg MCHC (31.0-36.0) g/dl RDW (11.0-16.0) % Plt Count (160-400) X10*3/uL MPV (9.4-12.4) fL Immature Gran % (Auto) (0.0-0.4) % Neut % (Auto) (45-73) % Lymph % (Auto) (20-40) % [place] % (Auto) (2-11) % Eos % (Auto) (0-4) % Baso % (Auto) (0-2) % Lymph # (Auto) (1.2-4.9) X10*3/uL [place] # (Auto) (0.1-1.2) X10*3/uL Eos # (Auto) (0.0-0.4) X10*3/uL Baso # (Auto) (0.0-0.2) X10*3/uL Abs Immat Gran (auto) (0.00-0.03) X10*3/uL Absolute Neuts (auto) (2.0-8.3) X10*3/uL Absolute Nucleated RBC (0.0-0.012) X10*3/uL Nucleated RBC % (auto) (0.0-0.2) /100WBC Smear Tech's Comments Hold Purple Top SEE NOTE PT 11.7 (9.9-13.0) SEC INR 1.0 (0.9-1.1) Sodium 141 (135-145) mmol/L Potassium 4.1 (3.3-5.1) mmol/L Chloride 107 (96-108) mmol/L Carbon Dioxide 22 (22-29) mmol/L Anion Gap 16 (12-20) BUN 19 H (9-16) mg/dL Creatinine 1.02 (0.5-1.4) mg/dL Estim Creat Clear Calc 59.6 Estimated GFR > 60 Random Glucose 124 H (60-115) mg/dL Lactic Acid (0.5-2.0) mmol/L Calcium 8.9 D (8.4-10.2) mg/dL Magnesium 1.5 L (1.6-2.6) mg/dL Total Bilirubin 1.3 H (0.0-1.0) mg/dL AST 15 (5-37) U/L ALT 11 (0-40) U/L Alkaline Phosphatase 60 (39-117) U/L B-Natriuretic Peptide (<100) pg/mL Total Protein 6.8 (6.5-8.0) g/dL Albumin 4.3 (3.5-5.0) g/dL Lipase 61 (8-78) U/L Coronavirus (PCR) (Negative) Influenza Type A (PCR) (Negative) Influenza Type B (PCR) (Negative) RSV RNA Qual (PCR) (Negative) 11/21/20 Range/Units 12:46 WBC (4.8-10.8) X10*3/uL RBC (4.60-5.80) X10*6/uL Hgb (14.0-18.0) g/dl Hct (42-52) % MCV (80-98) fL MCH (27.0-33.0) pg MCHC (31.0-36.0) g/dl RDW (11.0-16.0) % Plt Count (160-400) X10*3/uL MPV (9.4-12.4) fL Immature Gran % (Auto) (0.0-0.4) % Neut % (Auto) (45-73) % Lymph % (Auto) (20-40) % [place] % (Auto) (2-11) % Eos % (Auto) (0-4) % Baso % (Auto) (0-2) % Lymph # (Auto) (1.2-4.9) X10*3/uL [place] # (Auto) (0.1-1.2) X10*3/uL Eos # (Auto) (0.0-0.4) X10*3/uL Baso # (Auto) (0.0-0.2) X10*3/uL Abs Immat Gran (auto) (0.00-0.03) X10*3/uL Absolute Neuts (auto) (2.0-8.3) X10*3/uL Absolute Nucleated RBC (0.0-0.012) X10*3/uL Nucleated RBC % (auto) (0.0-0.2) /100WBC Smear Tech's Comments Hold Purple Top PT (9.9-13.0) SEC INR (0.9-1.1) Sodium (135-145) mmol/L Potassium (3.3-5.1) mmol/L Chloride (96-108) mmol/L Carbon Dioxide (22-29) mmol/L Anion Gap (12-20) BUN (9-16) mg/dL Creatinine (0.5-1.4) mg/dL Estim Creat Clear Calc Estimated GFR Random Glucose (60-115) mg/dL Lactic Acid (0.5-2.0) mmol/L Calcium (8.4-10.2) mg/dL Magnesium (1.6-2.6) mg/dL Total Bilirubin (0.0-1.0) mg/dL AST (5-37) U/L ALT (0-40) U/L Alkaline Phosphatase (39-117) U/L B-Natriuretic Peptide (<100) pg/mL Total Protein (6.5-8.0) g/dL Albumin (3.5-5.0) g/dL Lipase (8-78) U/L Coronavirus (PCR) NEGATIVE (Negative) Influenza Type A (PCR) NEGATIVE (Negative) Influenza Type B (PCR) NEGATIVE (Negative) RSV RNA Qual (PCR) NEGATIVE (Negative) Imaging Data Chest x-ray: Attestation: I personally reviewed and interpreted this imaging study as follows: Radiologist's impression: FINDINGS: The lungs are well-expanded and clear acute pneumonic process. Pulmonary nodules seen on the recent chest CT are not visualized well on this chest x-ray. Heart size and pulmonary vascularity is normal. There is mild scoliosis of lower dorsal and lumbar spine. XR/XR chest 1V IMPRESSION: No acute cardiopulmonary process seen. CT scan abdomen pelvis with IV contrast: Attestation: I personally reviewed and interpreted this imaging study as follows: Radiologist's impression: FINDINGS: LUNG BASES: There is a 1.1 cm left lower lobe nodule axial image 9 series 5 that is stable. There is a 5 mm left lower lobe nodule adjacent to the diaphragmatic pleural surface axial image 11 series 5 that is stable. LIVER, GALLBLADDER, AND BILIARY TREE: The liver is normal in size, shape, and attenuation. No focal hepatic lesion or biliary ductal dilatation is present. The gallbladder is upper normal in size. No gallstones are seen. PANCREAS: Unremarkable. SPLEEN: Unremarkable. ADRENAL GLANDS: Unremarkable. KIDNEYS AND URETERS: There are small left renal cysts. The kidneys are otherwise unremarkable. BLADDER: Unremarkable. GASTROINTESTINAL TRACT: There is diverticulosis of the colon. There is mild wall thickening of the distal left and sigmoid colon. Long segment distribution is more suggestive of colitis than diverticulitis. Sigmoid colon. There is also question of mild wall thickening of the distal small bowel versus changes due to underdistention. There are fluid-filled distended loops of small and large bowel suggestive of an ileus. There is no transition zone to suggest mechanical obstruction. The appendix is unremarkable. The stomach is not optimally distended. ABDOMINAL WALL: No significant hernia is appreciated. LYMPH NODES: Normal. VASCULAR: There is evidence of severe atherosclerotic disease. PELVIC VISCERA: There are radiation seeds in the prostate gland. OSSEOUS STRUCTURES: There are old right pelvic fractures. There are degenerative changes of the lumbar spine and severe scoliosis. There are degenerative changes at the hip joints. There is a sclerotic lesion in the right iliac bone that is stable and probably represents a bone island. CT/CT abdomen pelvis w con IMPRESSION: Fluid-filled loops of small and large bowel suggestive of an ileus. No transition zone to suggest mechanical obstruction. Diverticulosis of the colon. Areas of wall thickening of the distal left and sigmoid colon and small bowel questionable for colitis and enteritis. Upper normal-size gallbladder. No gallstone seen. Small left renal cysts. Radiation seeds in the prostate gland. Severe atherosclerotic disease. Stable left lower lobe pulmonary nodules. ECG Data Attestation: I personally reviewed and interpreted this ECG as follows: ECG interpretation date: 11/21/20 ECG interpretation time: 16:08 Interpretation: Normal sinus rhythm with left atrial enlargement with nonspecific T-wave abnormalities no acute ischemic changes are noted.Similar when compared to prior EKG 11/18/2017 Critical Care Time Critical Care Time Critical Care Time: Yes Total Critical Care Time: 60 Attestation: I personally attest to this time spent taking care of the patient Discharge Plan Discharge Clinical Impression: Nausea & vomiting, Diarrhea, Abdominal pain, Ileus Patient Disposition: Admitted As Inpatient Prescriptions: No Action omeprazole 20 mg Capsule,Delayed Release(Dr/Ec) 20 mg PO DAILY RF: 0 ropinirole 0.25 mg Tablet 0.25 mg PO BEDTIME RF: 0 lovastatin 20 mg Tablet 20 mg PO DAILY RF: 0 oxycodone 5 mg Tablet 5 mg PO TID PRN (Reason: Pain) RF: 0
[2020-11-21 13:24] LABS: Alanine Aminotransferase 11 U/L (0-40); Albumin Level 4.3 g/dL (3.5-5.0); Alkaline Phosphatase 60 U/L (39-117); Anion Gap 16 (12-20); Aspartate Amino Transferase 15 U/L (5-37); Bilirubin Total 1.3 mg/dL (0.0-1.0); Blood Urea Nitrogen 19 mg/dL (9-16); Calcium 8.9 mg/dL (8.4-10.2); Carbon Dioxide 22 mmol/L (22-29); Chloride 107 mmol/L (96-108); Creatinine Clr Calc Pharmacy 59.6; Estimated Glomerular Filt Rate > 60; Glucose Random 124 mg/dL (60-115); Lipase 61 U/L (8-78); Magnesium 1.5 mg/dL (1.6-2.6); Potassium 4.1 mmol/L (3.3-5.1); Sodium 141 mmol/L (135-145); Total Protein 6.8 g/dL (6.5-8.0)
[2020-11-21 13:31] LABS: B Type Natriuretic Peptide 94 pg/mL (<100)
[2020-11-21 13:37] LABS: Influenza A PCR NEGATIVE (Negative); Influenza B PCR NEGATIVE (Negative); Resp Syncy Virus RNA Qual PCR NEGATIVE (Negative); SARS COV2 PCR INHOUSE NEGATIVE (Negative)
[2020-11-21] MEDS: Magnesium Sulfate/H2O 2 GM/50 ML PIGGYBACK IV (13:45)
[2020-11-21] MEDS: Piperacillin Sodium/Tazobactam 3.375 GM in 0.9 % Sodium Chloride 50 ML IV ×2 (15:19→21:41)
[2020-11-21] MEDS: iohexoL 350 MG/ML 100 ML INFUS..BTL IV (16:34)
--- NOTE | 2020-11-21 17:26 | PHA.MEDREC ---
Pharmacy Consult ? Medication Reconciliation Pharmacy has completed the medication reconciliation.
[2020-11-21] MEDS: HYDROmorphone HCl 1 MG/ML SYRINGE IVPUSH (17:39)
--- NOTE | 2020-11-21 19:10 | PC.NURSE ---
assumed care of pt. Pt resting in stretcher c/o pain to abd area and back pain 01/20. Pt awake, respirations easy, n/l. skin w/d. VS obtained.
--- NOTE | 2020-11-21 19:13 | P.HPHOSP_ITS ---
History of Present Illness Date of Service: 11/21/20 Chief Complaint: vomiting, diarrhea, abd discomfort Mr Khan is a 70 year-old male with prostate CA s/p XRT, RLS, HLD, lung nodules, Monterroso's esophagus, and chronic back pain due to a fall sustained in the [place]. He presents to the ED with the acute onset of nausea leading to non- bloody, nonbilious emesis along with copious water diarrhea that started this morning. He also complains of crampy generalized abdominal pain, moderate in intensity. His was sick with a similar illness last night but this resolved today. They attributed their illness to a meal of hamburger and zucchini yesterday for dinner. He denies high-risk food exposures such as undercooked meats or seafood. No recent travel history. No fever. No lightheadedness. No recent antibiotic use. No chest pain and no cough or dyspnea. In the ED, he was given IV fluids, ondansetron, and IV morphine. He was found to have leukocytosis and hypomagnesemia. CT of the abdomen showed fluid-filled loops of small and large bowel suggestive of an ileus without a transition point to suggest an obstruction. There was question of enterocolitis as well. He was given a dose of IV piperacillin/tazobactam. Review of Systems Review of Systems: Yes all other systems are reviewed and are negative [facility] Medical History Diaphragm injury Liver laceration Lung nodule < 6cm on CT Pelvis fracture Sciatica Small bowel obstruction Family History Mother Colon cancer Sister Pancreatic cancer Surgical History H/O ankle fusion H/O knee surgery Social History Household Members: Spouse Housing: House Do you presently have visiting nurse or other home services: No Alcohol intake: current Alcohol intake frequency: a few times a month Alcohol type: beer Patient Tobacco Use Status: Former Tobacco user Quit Date: 1999 Cigarette Packs Per Day: 1 Use of substances other than those prescribed or required for medical reasons: No Substance Use Type: Marijuana Advance Directives: No Advance Directives Information Provided: No service: Yes Current occupational status: disabled Meds Allergies Allergy/AdvReac Type Severity Reaction Status Date / Time aspirin Allergy Unknown Unknown Verified 11/21/20 11:56 gabapentin [Neurontin] Allergy Unknown Unknown Verified 11/21/20 11:56 Codeine Sulfate AdvReac Unknown vomiting Uncoded 11/21/20 11:56 Active Medications: Current Medications Generic Name Dose Route Start Last Admin Trade Name Freq PRN Reason Stop Dose Admin Acetaminophen 650 mg 11/21/20 19:09 Acetaminophen 325 Mg Tablet PO Q6H PRN Pain, Mild (Pain Scale 1-3) Enoxaparin Sodium 40 mg 11/21/20 19:15 Enoxaparin Sodium 40 Mg/0.4 Ml Syringe SUBCUT Q24H DANNY Lactated Ringer's 1,000 mls @ 100 mls/hr 11/21/20 19:15 Lr IVCONT .Q10H DANNY Ondansetron HCl 4 mg 11/21/20 19:09 Ondansetron Hcl 4 Mg/2 Ml Vial IVPUSH Q8H PRN Nausea and Vomiting Pharmacy Consult 1 each 11/21/20 17:17 Consult Rx Perform Med Rec MISCELLANE ONCE PRN Consult order Sodium Chloride 3 ml 11/22/20 00:00 0.9 % Sodium Chloride Flush 3 Ml [facility] Medications Medication Instructions Recorded Confirmed Last Taken Type lovastatin 20 mg PO DAILY 03/23/20 11/21/20 11/20/20 History oxycodone 5 mg PO TID PRN 03/23/20 11/21/20 11/20/20 History ropinirole 0.25 mg PO BEDTIME 03/23/20 11/21/20 11/20/20 History omeprazole 20 mg PO DAILY 11/21/20 11/21/20 11/20/20 History Physical Exam Vital Signs and Narrative: Vital Signs: Last Vital Signs Temp 99.0 F 11/21/20 12:58 Pulse 71 11/21/20 16:46 Resp 20 11/21/20 16:46 BP 134/66 11/21/20 16:46 Pulse Ox 97 11/21/20 16:46 Body Mass Index 21.2 Gen: in no acute distress HEENT: sclera anicteric, moist mucus membranes Neck: supple Lungs: clear to auscultation bilaterally Heart: regular rate and rhythm, no murmurs Abd: soft, generalized tenderness without rebound or guarding Ext: no edema Skin: warm/well-perfused Neuro: alert and oriented x3, no focal findings Psych: appropriate affect Results Labs CBC and Chem 7: 11/21/20 12:35 11/21/20 12:36 Labs: Laboratory Results - last 24 hr 11/21/20 11/21/20 11/21/20 12:35 12:35 12:35 MCV 88.0 MCH 29.1 MCHC 33.0 RDW 12.3 Plt Count 214 MPV 10.2 Immature Gran % (Auto) 0.3 Neut % (Auto) 94.1 H Lymph % (Auto) 1.1 L [place] % (Auto) 4.4 Eos % (Auto) 0.0 Baso % (Auto) 0.1 Lymph # (Auto) 0.2 L [place] # (Auto) 0.7 Eos # (Auto) 0.0 Baso # (Auto) 0.0 Abs Immat Gran (auto) 0.05 H Absolute Neuts (auto) 14.6 H Absolute Nucleated RBC 0.000 Nucleated RBC % (auto) 0.0 Smear Tech's Comments VERIFIED Hold Purple Top PT INR Anion Gap Estim Creat Clear Calc Estimated GFR Random Glucose Lactic Acid 1.2 Calcium Magnesium Total Bilirubin AST ALT Alkaline Phosphatase B-Natriuretic Peptide 94 Total Protein Albumin Lipase Coronavirus (PCR) Influenza Type A (PCR) Influenza Type B (PCR) RSV RNA Qual (PCR) 11/21/20 11/21/20 11/21/20 12:36 12:36 12:36 MCV MCH MCHC RDW Plt Count MPV Immature Gran % (Auto) Neut % (Auto) Lymph % (Auto) [place] % (Auto) Eos % (Auto) Baso % (Auto) Lymph # (Auto) [place] # (Auto) Eos # (Auto) Baso # (Auto) Abs Immat Gran (auto) Absolute Neuts (auto) Absolute Nucleated RBC Nucleated RBC % (auto) Smear Tech's Comments Hold Purple Top SEE NOTE PT 11.7 INR 1.0 Anion Gap 16 Estim Creat Clear Calc 59.6 Estimated GFR > 60 Random Glucose 124 H Lactic Acid Calcium 8.9 D Magnesium 1.5 L Total Bilirubin 1.3 H AST 15 ALT 11 Alkaline Phosphatase 60 B-Natriuretic Peptide Total Protein 6.8 Albumin 4.3 Lipase 61 Coronavirus (PCR) Influenza Type A (PCR) Influenza Type B (PCR) RSV RNA Qual (PCR) 11/21/20 12:46 MCV MCH MCHC RDW Plt Count MPV Immature Gran % (Auto) Neut % (Auto) Lymph % (Auto) [place] % (Auto) Eos % (Auto) Baso % (Auto) Lymph # (Auto) [place] # (Auto) Eos # (Auto) Baso # (Auto) Abs Immat Gran (auto) Absolute Neuts (auto) Absolute Nucleated RBC Nucleated RBC % (auto) Smear Tech's Comments Hold Purple Top PT INR Anion Gap Estim Creat Clear Calc Estimated GFR Random Glucose Lactic Acid Calcium Magnesium Total Bilirubin AST ALT Alkaline Phosphatase B-Natriuretic Peptide Total Protein Albumin Lipase Coronavirus (PCR) NEGATIVE Influenza Type A (PCR) NEGATIVE Influenza Type B (PCR) NEGATIVE RSV RNA Qual (PCR) NEGATIVE Imaging Radiologist's Impressions: Impressions Chest X-Ray 11/21/20 13:27 IMPRESSION: No acute cardiopulmonary process seen. Abdomen/Pelvis CT 11/21/20 15:38 IMPRESSION: Fluid-filled loops of small and large bowel suggestive of an ileus. No transition zone to suggest mechanical obstruction. Diverticulosis of the colon. Areas of wall thickening of the distal left and sigmoid colon and small bowel questionable for colitis and enteritis. Upper normal-size gallbladder. No gallstone seen. Small left renal cysts. Radiation seeds in the prostate gland. Severe atherosclerotic disease. Stable left lower lobe pulmonary nodules. Assessment and Plan (1) Ileus: Status: Acute 70 year-old male with prostate CA s/p XRT, RLS, HLD, lung nodules, Monterroso's esophagus, and chronic back pain presenting with acute onset of nausea, vomiting, and diarrhea and found to have ileus and possible enterocolitis # ileus - ?etiology. no evidence of SBO. admit to M/S. keep NPO and give IV fluid hydration. replete Mg as below. # enterocolitis - start pip/ervin, send stool studies (C diff, WBCs, culture), consult GI # hypoMg - replete # leukocytosis - likely due to ileus + enterocolitis. not septic. monitor # RLS - continue ropinirole # HLD - continue statin # chronic pain - continue prn oxycodone # Monterroso esophagus - continue PPI # VTE ppx - LMWH # code - full Quality Stroke Does the patient have a stroke diagnosis?: No VTE Prior VTE?: No VTE Risk Level:: Medical - moderate - high VTE Device Contraindication: N/A - Device Ordered VTE Drug Contraindication: N/A - Med Ordered
[2020-11-21] MEDS: Lactated Ringers 1,000 ML 100 ML IVCONT (19:31)
[2020-11-21 19:33] LABS: C Reactive Protein 4.24 mg/dL (< or = 0.50)
[2020-11-21] MEDS: Enoxaparin Sodium 40 MG/0.4 ML SYRINGE SUBCUT (19:34)
--- NOTE | 2020-11-21 19:36 | PC.NURSE ---
pt medicated for pain to abd area and back rating pain 9/10.
--- NOTE | 2020-11-21 20:49 | MHC.CM.PN ---
Met with pt, bed pending. IMM reviewed and signed per protocol 11/21/20@2019. PCP [facility]. [place] [facility]. Pt is a [employer] and is vet connected. HCP reviewed, completed and signed per protocol. Uploaded into [employer] and [email or web address]. HCP/ Shaneka Khan ([phone]). Lives with . Occasionally uses a cane, has no services. D/C plan is home without services. to provide transportation home. CM to follow for d/c needs.
--- NOTE | 2020-11-21 23:46 | PC.NURSE ---
FLOOR UNABLE TO TAKE REPORT AT THIS TIME. WILL RETURN CALL.
--- NOTE | 2020-11-22 00:34 | PC.NURSE ---
REPORT GIVEN TO LUZMARIA PETERSON. PT TO FLOOR ON STRETCHER IN [facility] AT THIS TIME. IV FLUSHES EASILY W/O RESISTANCE.
--- NOTE | 2020-11-22 01:31 | PC.NURSE ---
PT TO ROOM AT THIS TIME. PT LEFT ED IN NAD. BELONGINGS WITH PT.
[2020-11-22 01:46] VITALS: BP 148/67; PULSE 65; RESP 15; TEMP 36.4; O2SAT 97
[2020-11-22 02:14] VITALS: BMI 20.6
[2020-11-22] MEDS: Piperacillin Sodium/Tazobactam 3.375 GM in 0.9 % Sodium Chloride 50 ML IV ×3 (03:48→14:39)
[2020-11-22 04:00] VITALS: BP 108/57; PULSE 55; RESP 16; TEMP 36.6; O2SAT 99
[2020-11-22] MEDS: Lactated Ringers 1,000 ML 100 ML IVCONT ×2 (04:52→22:20)
[2020-11-22 06:22] LABS: Hematocrit 37.4 % (42-52); Hemoglobin 12.4 g/dl (14.0-18.0); Mean Corpuscular HGB Conc 33.2 g/dl (31.0-36.0); Mean Corpuscular Hemoglobin 29.4 pg (27.0-33.0); Mean Corpuscular Volume 88.6 fL (80-98); Mean Platelet Volume 10.7 fL (9.4-12.4); Red Blood Count 4.22 X10*6/uL (4.60-5.80); Red Cell Distribution Width 12.7 % (11.0-16.0); White Blood Count 5.9 X10*3/uL (4.8-10.8)
[2020-11-22 06:48] LABS: Anion Gap 13 (12-20); Blood Urea Nitrogen 13 mg/dL (9-16); Calcium 8.1 mg/dL (8.4-10.2); Carbon Dioxide 21 mmol/L (22-29); Chloride 109 mmol/L (96-108); Creatinine Clr Calc Pharmacy 64.1; Estimated Glomerular Filt Rate > 60; Glucose Random 97 mg/dL (60-115); Potassium 3.9 mmol/L (3.3-5.1); Sodium 139 mmol/L (135-145)
[2020-11-22 07:03] LABS: Platelet Count 159 X10*3/uL (160-400)
[2020-11-22 07:24] VITALS: BP 144/67; PULSE 56; RESP 18; TEMP 36.5; O2SAT 99
[2020-11-22] MEDS: 0.9 % Sodium Chloride Flush 3 ML SYRINGE IVFLUSH (08:46)
[2020-11-22] MEDS: ondansetron HCL 4 MG/2 ML VIAL IVPUSH (09:54)
[2020-11-22] MEDS: oxyCODONE HCl Immed Release 5 MG TABLET PO (09:54)
[2020-11-22 10:51] LABS: Glucose Urine UA NEG (NEG); Leukocyte Esterase Urine NEG (NEG); Nitrite Urine NEG (NEG); PH 5.5 (5.0-8.0); Specific Gravity - Urine 1.025 (1.005-1.025); Urine Blood NEG (NEG); Urine Ketones 15 MG/DL (NEG); Urine Protein TRACE MG/DL (NEG-TRACE)
[2020-11-22 10:55] LABS: Appearance Urine CLEAR; Color Urine YELLOW
[2020-11-22 11:24] VITALS: BP 144/65; PULSE 51; RESP 17; TEMP 36.7; O2SAT 98
--- NOTE | 2020-11-22 11:30 | MHC.CM.PN ---
PER PHYSICIAN ROUNDS, PLANS ARE TWO MORE DAYS OF IV ABX AND DC TO HOME WITH NO SERVICES. CASE MANAGEMENT FOLLOWING FOR ANY CHANGE IN PLANS OR DC NEEDS.
[2020-11-22] MEDS: Morphine Sulfate 2 MG/ML CARTRIDGE IVPUSH ×3 (11:56→18:26)
[2020-11-22] MEDS: Pramoxine HCl 1 % Rectal Foam 15 GM 1 APPL PR ×2 (13:08→22:15)
[2020-11-22 13:25] LABS: Leukocytes Stool Qualitative NEGATIVE (NEGATIVE)
[2020-11-22 13:31] LABS: CDiff Gene PCR POSITIVE (Negative)
[2020-11-22 13:46] LABS: OBS Int Ctl Valid YES; OBS1 NEGATIVE (NEGATIVE)
[2020-11-22 14:11] LABS: CDIFF Internal ctrl Dots and bkg OK (V); CDiff Toxin Negative (Negative)
[2020-11-22 15:25] VITALS: BP 160/67; PULSE 50; RESP 16; TEMP 36.3; O2SAT 98
--- NOTE | 2020-11-22 16:18 | P.PNIM_ITS ---
Subjective Subjective Date of Service: 11/22/20 Interval History: Still c/o abd discomfort/cramping, nausea, and watery diarrhea Physical Exam Vital Signs: Vital Signs: Last Vital Signs Temp 97.4 F 11/22/20 15:25 Pulse 50 11/22/20 15:25 Resp 16 11/22/20 15:25 BP 160/67 H 11/22/20 15:25 Pulse Ox 98 11/22/20 15:25 Body Mass Index 20.6 Gen: in no acute distress HEENT: sclera anicteric, moist mucus membranes Neck: supple Lungs: clear to auscultation bilaterally Heart: regular rate and rhythm, no murmurs Abd: soft, generalized tenderness without rebound or guarding Ext: no edema Skin: warm/well-perfused Neuro: alert and oriented x3, no focal findings Psych: appropriate affect Objective Data Current Medications Generic Name Dose Route Start Last Admin Trade Name Freq PRN Reason Stop Dose Admin Acetaminophen 650 mg 11/21/20 19:09 Acetaminophen 325 Mg Tablet PO Q6H PRN Pain, Mild (Pain Scale 1-3) Enoxaparin Sodium 40 mg 11/21/20 19:15 11/21/20 19:34 Enoxaparin Sodium 40 Mg/0.4 Ml Syringe SUBCUT 40 mg Q24H DANNY Administration Lactated Ringer's 1,000 mls @ 100 mls/hr 11/21/20 19:15 11/22/20 15:14 Lr IVCONT Infused .Q10H DANNY Infusion Piperacillin Sod/Tazobactam 50 mls @ 100 mls/hr 11/21/20 21:00 11/22/20 15:14 Sod 3.375 gm/ Sodium Chloride IV Infused Q6H DANNY Infusion Morphine Sulfate 2 mg 11/22/20 10:35 11/22/20 14:39 Morphine Sulfate 2 Mg/Ml Cartridge IVPUSH 2 mg Q2H PRN Administration pain,severe Omeprazole 20 mg 11/22/20 06:30 11/22/20 05:44 Omeprazole 20 Mg Capsule. PO Not Given DAILY@0630 DANNY Ondansetron HCl 4 mg 11/21/20 19:09 11/22/20 09:54 Ondansetron Hcl 4 Mg/2 Ml Vial IVPUSH 4 mg Q8H PRN Administration Nausea and Vomiting Ondansetron HCl 4 mg 11/21/20 21:01 Ondansetron Hcl 4 Mg/2 Ml Vial IVPUSH Q8H PRN Nausea and Vomiting Oxycodone HCl 5 mg 11/21/20 19:12 11/22/20 09:54 Oxycodone Hcl Immed Release 5 Mg Tablet PO 5 mg TID PRN Administration Pain Pharmacy Consult 1 each 11/21/20 17:17 Consult Rx Perform Med Rec MISCELLANE ONCE PRN Consult order Pramoxine HCl 1 appl 11/22/20 11:00 11/22/20 14:39 Pramoxine Hcl 1 % Rectal Foam [address] Not Given TID DANNY Pravastatin Sodium 20 mg 11/22/20 21:00 Pravastatin Sodium 20 Mg Tablet PO BEDTIME [facility] Ropinirole HCl 0.25 mg 11/21/20 21:00 11/21/20 23:40 Ropinirole Hcl 0.25 Mg Tablet PO Not Given BEDTIME [facility] Sodium Chloride 3 ml 11/22/20 00:00 11/22/20 08:46 0.9 % Sodium Chloride Flush 3 Ml Syringe IVFLUSH 3 ml QSHIFT [facility] Administration Labs CBC & Chem 7: 11/22/20 05:36 11/22/20 05:36 Labs: Laboratory Results - last 24 hr 11/21/20 11/22/20 11/22/20 12:36 05:36 05:36 WBC 5.9 RBC 4.22 L Hgb 12.4 L Hct 37.4 L MCV 88.6 MCH 29.4 MCHC 33.2 RDW 12.7 Plt Count 159 L D MPV 10.7 Absolute Nucleated RBC 0.000 Nucleated RBC % (auto) 0.0 Sodium 139 Potassium 3.9 Chloride 109 H Carbon Dioxide 21 L Anion Gap 13 BUN 13 Creatinine 0.92 Estim Creat Clear Calc 64.1 Estimated GFR > 60 Random Glucose 97 Calcium 8.1 L D Magnesium 2.0 C-Reactive Protein 4.24 H Urine Color Urine Appearance Urine pH Ur Specific [place] Urine Protein Urine Glucose (UA) Urine Ketones Urine Blood Urine Nitrite Ur Leukocyte Esterase Stool Collect Date Stool Occult Blood Stool 2 Collect Date Stool Occult Blood #2 Stool 3 Collect Date Stool Occult Blood #3 Stool Leukocytes, Qual C. difficile Tox B Gene C. difficile Toxin A&B C. difficile Interpret 11/22/20 11/22/20 11/22/20 10:23 10:23 10:23 WBC RBC Hgb Hct MCV MCH MCHC RDW Plt Count MPV Absolute Nucleated RBC Nucleated RBC % (auto) Sodium Potassium Chloride Carbon Dioxide Anion Gap BUN Creatinine Estim Creat Clear Calc Estimated GFR Random Glucose Calcium Magnesium C-Reactive Protein Urine Color Urine Appearance Urine pH Ur Specific [place] Urine Protein Urine Glucose (UA) Urine Ketones Urine Blood Urine Nitrite Ur Leukocyte Esterase Stool Collect Date Cancelled Stool Occult Blood Cancelled Stool 2 Collect Date Cancelled Stool Occult Blood #2 Cancelled Stool 3 Collect Date Cancelled Stool Occult Blood #3 Cancelled Stool Leukocytes, Qual NEGATIVE C. difficile Tox B Gene POSITIVE A* C. difficile Toxin A&B Negative C. difficile Interpret SEE NOTE 11/22/20 11/22/20 10:23 Unknown WBC RBC Hgb Hct MCV MCH MCHC RDW Plt Count MPV Absolute Nucleated RBC Nucleated RBC % (auto) Sodium Potassium Chloride Carbon Dioxide Anion Gap BUN Creatinine Estim Creat Clear Calc Estimated GFR Random Glucose Calcium Magnesium C-Reactive Protein Urine Color YELLOW Urine Appearance CLEAR Urine pH 5.5 Ur Specific [place] 1.025 Urine Protein TRACE Urine Glucose (UA) NEG Urine Ketones 15 Urine Blood NEG Urine Nitrite NEG Ur Leukocyte Esterase NEG Stool Collect Date Stool Occult Blood NEGATIVE Stool 2 Collect Date Stool Occult Blood #2 Stool 3 Collect Date Stool Occult Blood #3 Stool Leukocytes, Qual C. difficile Tox B Gene C. difficile Toxin A&B C. difficile Interpret Microbiology Microbiology Results: Microbiology 11/21/20 12:46 Blood Culture - Preliminary Blood - Venous No growth after 24 hours. 11/21/20 12:35 Blood Culture - Preliminary Blood - Venous No growth after 24 hours. Quality Stroke Does the patient have a stroke diagnosis?: No VTE Prior VTE?: No VTE Risk Level:: Medical - moderate - high VTE Device Contraindication: N/A - Device Ordered VTE Drug Contraindication: N/A - Med Ordered Assessment and Plan (1) C. difficile colitis: Status: Acute Assessment and Plan: hospital d#2 70 year-old male with prostate CA s/p XRT, RLS, HLD, lung nodules, Monterroso's esophagus, and chronic back pain presenting with acute onset of nausea, vom iting, and diarrhea and found to have ileus and enterocolitis, C diff positive # ileus - due to colitis. continue NPO, IV fluid hydration # C diff colitis - d/c pip/ervin, start PO vancomycin d#05/26 # hypoMg - repleted # leukocytosis - due to colitis. resolved. # RLS - continue ropinirole # HLD - continue statin # chronic pain - continue prn oxycodone # Monterroso esophagus - continue PPI # VTE ppx - LMWH
[2020-11-22] MEDS: vancomycin HCL 125 MG CAPSULE 250 MG PO ×2 (18:15→22:17)
[2020-11-22] MEDS: Enoxaparin Sodium 40 MG/0.4 ML SYRINGE SUBCUT (18:16)
[2020-11-22 19:11] VITALS: BP 136/63; PULSE 48; RESP 14; TEMP 36.6; O2SAT 98
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
[2020-11-22] MEDS: Pravastatin Sodium 20 MG TABLET PO (22:16)
[2020-11-22] MEDS: rOPINIRole HCL 0.25 MG TABLET PO (22:16)
[2020-11-23] VITALS (9 sets, daily range): BP systolic 142–186; BP diastolic 69–83; PULSE 50–79; RESP 15–20; TEMP 36.2–36.8; O2SAT 98
[2020-11-23] MEDS: Morphine Sulfate 2 MG/ML CARTRIDGE IVPUSH ×5 (05:23→23:16)
[2020-11-23] MEDS: vancomycin HCL 125 MG CAPSULE 250 MG PO ×4 (05:25→23:12)
[2020-11-23] MEDS: Omeprazole 20 MG CAPSULE.DR PO (05:49)
[2020-11-23 06:57] LABS: Hematocrit 36.5 % (42-52); Hemoglobin 11.9 g/dl (14.0-18.0); Mean Corpuscular HGB Conc 32.6 g/dl (31.0-36.0); Mean Corpuscular Hemoglobin 28.8 pg (27.0-33.0); Mean Corpuscular Volume 88.4 fL (80-98); Mean Platelet Volume 10.6 fL (9.4-12.4); Platelet Count 153 X10*3/uL (160-400); Red Blood Count 4.13 X10*6/uL (4.60-5.80); Red Cell Distribution Width 12.2 % (11.0-16.0); White Blood Count 4.5 X10*3/uL (4.8-10.8)
[2020-11-23 07:24] LABS: Anion Gap 11 (12-20); Blood Urea Nitrogen 8 mg/dL (9-16); C Reactive Protein 4.04 mg/dL (< or = 0.50); Calcium 8.3 mg/dL (8.4-10.2); Carbon Dioxide 25 mmol/L (22-29); Chloride 107 mmol/L (96-108); Creatinine Clr Calc Pharmacy 73.7; Estimated Glomerular Filt Rate > 60; Glucose Random 103 mg/dL (60-115); Magnesium 1.8 mg/dL (1.6-2.6); Potassium 3.7 mmol/L (3.3-5.1); Sodium 139 mmol/L (135-145)
[2020-11-23] MEDS: Lactated Ringers 1,000 ML 100 ML IVCONT ×2 (08:04→18:17)
[2020-11-23] MEDS: Pramoxine HCl 1 % Rectal Foam 15 GM 1 APPL PR (08:05)
--- NOTE | 2020-11-23 11:38 | HO.PM.IMPN ---
Subjective Subjective Date of Service: 11/23/20 Interval History: nausea/abd cramping/diarrhea improving; tolerating clear liquids Physical Exam Vital Signs: Vital Signs: Last Vital Signs Temp 97.8 F 11/23/20 11:36 Pulse 56 11/23/20 11:36 Resp 17 11/23/20 11:36 BP 156/74 H 11/23/20 11:36 Pulse Ox 98 11/23/20 11:36 Body Mass Index 20.6 Gen: in no acute distress HEENT: sclera anicteric, moist mucus membranes Neck: supple Lungs: clear to auscultation bilaterally Heart: regular rate and rhythm, no murmurs Abd: soft, non-tender Ext: no edema Skin: warm/well-perfused Neuro: alert and oriented x3, no focal findings Psych: appropriate affect Objective Data Current Medications Generic Name Dose Route Start Last Admin Trade Name Freq PRN Reason Stop Dose Admin Acetaminophen 650 mg 11/21/20 19:09 Acetaminophen 325 Mg Tablet PO Q6H PRN Pain, Mild (Pain Scale 1-3) Enoxaparin Sodium 40 mg 11/21/20 19:15 11/22/20 18:16 Enoxaparin Sodium 40 Mg/0.4 Ml Syringe SUBCUT 40 mg Q24H DANNY Administration Lactated Ringer's 1,000 mls @ 100 mls/hr 11/21/20 19:15 11/23/20 08:04 Lr IVCONT 100 mls/hr .Q10H DANNY Administration Morphine Sulfate 2 mg 11/22/20 10:35 11/23/20 09:04 Morphine Sulfate 2 Mg/Ml Cartridge IVPUSH 2 mg Q2H PRN Administration pain,severe Omeprazole 20 mg 11/22/20 06:30 11/23/20 05:49 Omeprazole 20 Mg Capsule. PO 20 mg DAILY@0630 DANNY Administration Ondansetron HCl 4 mg 11/21/20 19:09 11/22/20 09:54 Ondansetron Hcl 4 Mg/2 Ml Vial IVPUSH 4 mg Q8H PRN Administration Nausea and Vomiting Ondansetron HCl 4 mg 11/21/20 21:01 Ondansetron Hcl 4 Mg/2 Ml Vial IVPUSH Q8H PRN Nausea and Vomiting Oxycodone HCl 5 mg 11/21/20 19:12 11/22/20 09:54 Oxycodone Hcl Immed Release 5 Mg Tablet PO 5 mg TID PRN Administration Pain Pharmacy Consult 1 each 11/21/20 17:17 Consult Rx Perform Med Rec MISCELLANE ONCE PRN Consult order Pramoxine HCl 1 appl 11/22/20 11:00 11/23/20 08:05 Pramoxine Hcl 1 % Rectal Foam 15 Gm [place] 1 appl TID DANNY Administration Pravastatin Sodium 20 mg 11/22/20 21:00 11/22/20 22:16 Pravastatin Sodium 20 Mg Tablet PO 20 mg BEDTIME DANNY Administration Ropinirole HCl 0.25 mg 11/21/20 21:00 11/22/20 22:16 Ropinirole Hcl 0.25 Mg Tablet PO 0.25 mg BEDTIME DANNY Administration Sodium Chloride 3 ml 11/22/20 00:00 11/23/20 08:04 0.9 % Sodium Chloride Flush 3 Ml Syringe IVFLUSH Not Given QSHIFT DANNY Vancomycin HCl 250 mg 11/22/20 17:00 11/23/20 05:25 Vancomycin Hcl 125 Mg Capsule PO 250 mg Q6H DANNY Administration Labs CBC & Chem 7: 11/23/20 06:07 11/23/20 06:07 Labs: Laboratory Results - last 24 hr 11/22/20 11/22/20 11/22/20 10:23 10:23 10:23 WBC RBC Hgb Hct MCV MCH MCHC RDW Plt Count MPV Absolute Nucleated RBC Nucleated RBC % (auto) Sodium Potassium Chloride Carbon Dioxide Anion Gap BUN Creatinine Estim Creat Clear Calc Estimated GFR Random Glucose Calcium Magnesium C-Reactive Protein Stool Collect Date Cancelled Stool Occult Blood Cancelled Stool 2 Collect Date Cancelled Stool Occult Blood #2 Cancelled Stool 3 Collect Date Cancelled Stool Occult Blood #3 Cancelled Stool Leukocytes, Qual NEGATIVE C. difficile Tox B Gene POSITIVE A* C. difficile Toxin A&B Negative C. difficile Interpret SEE NOTE 11/22/20 11/23/20 11/23/20 Unknown 06:07 06:07 WBC 4.5 L RBC 4.13 L Hgb 11.9 L Hct 36.5 L MCV 88.4 MCH 28.8 MCHC 32.6 RDW 12.2 Plt Count 153 L MPV 10.6 Absolute Nucleated RBC 0.000 Nucleated RBC % (auto) 0.0 Sodium 139 Potassium 3.7 Chloride 107 Carbon Dioxide 25 Anion Gap 11 L BUN 8 L Creatinine 0.80 Estim Creat Clear Calc 73.7 Estimated GFR > 60 Random Glucose 103 Calcium 8.3 L Magnesium 1.8 C-Reactive Protein 4.04 H Stool Collect Date Stool Occult Blood NEGATIVE Stool 2 Collect Date Stool Occult Blood #2 Stool 3 Collect Date Stool Occult Blood #3 Stool Leukocytes, Qual C. difficile Tox B Gene C. difficile Toxin A&B C. difficile Interpret Microbiology Microbiology Results: Microbiology 11/22/20 10:23 Stool Culture - Preliminary Stool Culture in progress. 11/21/20 12:46 Blood Culture - Preliminary Blood - Venous No growth after 24 hours. 11/21/20 12:35 Blood Culture - Preliminary Blood - Venous No growth after 24 hours. Quality Stroke Does the patient have a stroke diagnosis?: No VTE Prior VTE?: No VTE Risk Level:: Medical - moderate - high VTE Device Contraindication: N/A - Device Ordered VTE Drug Contraindication: N/A - Med Ordered Assessment and Plan (1) C. difficile colitis: Status: Acute Assessment and Plan: hospital d#3 70 year-old male with prostate CA s/p XRT, RLS, HLD, lung nodules, Monterroso's esophagus, and chronic back pain presenting with acute onset of nausea, vomiting, and diarrhea and found to have ileus and enterocolitis, C diff positive # ileus - resolving clinically, advance diet as tolerated # C diff colitis - d/c'ed pip/ervin, continue PO vancomycin d#2 # hypoMg - repleted # leukocytosis - due to colitis. resolved. # RLS - continue ropinirole # HLD - continue statin # chronic pain - continue prn oxycodone # Monterroso esophagus - continue PPI # VTE ppx - LMWH
--- NOTE | 2020-11-23 15:58 | PM.GIPN ---
Subjective Subjective Date of Service: 11/23/20 Critical Care Time (minutes): 0 Comment: feels better, no vomiting, 2 bowel movements today, tolerating liquids Physical Exam Vital Signs: Vital Signs: Last Vital Signs Temp 97.2 F 11/23/20 15:25 Pulse 50 11/23/20 15:25 Resp 20 11/23/20 15:25 BP 181/75 H 11/23/20 15:25 Pulse Ox 98 11/23/20 15:25 Body Mass Index 20.6 Const: Other: comfortable GI: Other: soft, nontender Objective Data Labs CBC & Chem 7: 11/23/20 06:07 11/23/20 06:07 Progress Note: A&P Assessment and plan (1) Diarrhea: Status: Acute Assessment and Plan: not clear that c diff is cause of this acute illness but agree with rx regardless. continue present plan advance diet as tolerated. discussed with patient and RN Time Spent With Patient Time: Total time spent is greater than 50% in coordination of care (as documented) at patient's floor/unit and/or counseling patient: Time with patient: less than 15 minutes Procedures Date of Service Date of Service: 11/23/20 Quality Stroke Does the patient have a stroke diagnosis?: No VTE Prior VTE?: No VTE Risk Level:: Medical - moderate - high VTE Device Contraindication: N/A - Device Ordered VTE Drug Contraindication: N/A - Med Ordered
[2020-11-23] MEDS: Enoxaparin Sodium 40 MG/0.4 ML SYRINGE SUBCUT (19:17)
[2020-11-23] MEDS: rOPINIRole HCL 0.25 MG TABLET PO (21:39)
[2020-11-23] MEDS: Pravastatin Sodium 20 MG TABLET PO (21:39)
[2020-11-24] VITALS (7 sets, daily range): BP systolic 114–166; BP diastolic 54–76; PULSE 50–62; RESP 15–20; TEMP 36.1–36.6; O2SAT 97–100
[2020-11-24] MEDS: Lactated Ringers 1,000 ML 100 ML IVCONT (03:17)
[2020-11-24] MEDS: Omeprazole 20 MG CAPSULE.DR PO (05:34)
[2020-11-24] MEDS: vancomycin HCL 125 MG CAPSULE 250 MG PO ×3 (05:34→16:05)
[2020-11-24] MEDS: oxyCODONE HCl Immed Release 5 MG TABLET PO (05:37)
[2020-11-24] MEDS: Pramoxine HCl 1 % Rectal Foam 15 GM 1 APPL PR ×2 (09:18→12:39)
[2020-11-24] MEDS: 0.9 % Sodium Chloride Flush 3 ML SYRINGE IVFLUSH ×2 (09:19→16:05)
[2020-11-24] MEDS: Morphine Sulfate 2 MG/ML CARTRIDGE IVPUSH ×3 (09:23→18:21)
--- NOTE | 2020-11-24 11:27 | HO.PM.IMPN ---
Subjective Subjective Date of Service: 11/24/20 Interval History: tolerating diet 5-6 watery BMs in last 24h abd pain mostly resolved, no nausea Physical Exam Vital Signs: Vital Signs: Last Vital Signs Temp 97.3 F 11/24/20 07:49 Pulse 51 11/24/20 07:49 Resp 16 11/24/20 07:49 BP 166/76 H 11/24/20 07:49 Pulse Ox 100 11/24/20 07:49 Body Mass Index 20.6 Gen: in no acute distress HEENT: sclera anicteric, moist mucus membranes Neck: supple Lungs: clear to auscultation bilaterally Heart: regular rate and rhythm, no murmurs Abd: soft, non-tender Ext: no edema Skin: warm/well-perfused Neuro: alert and oriented x3, no focal findings Psych: appropriate affect Objective Data Current Medications Generic Name Dose Route Start Last Admin Trade Name Freq PRN Reason Stop Dose Admin Acetaminophen 650 mg 11/21/20 19:09 Acetaminophen 325 Mg Tablet PO Q6H PRN Pain, Mild (Pain Scale 1-3) Enoxaparin Sodium 40 mg 11/21/20 19:15 11/23/20 19:17 Enoxaparin Sodium 40 Mg/0.4 Ml Syringe SUBCUT 40 mg Q24H DANNY Administration Morphine Sulfate 2 mg 11/22/20 10:35 11/24/20 09:23 Morphine Sulfate 2 Mg/Ml Cartridge IVPUSH 2 mg Q2H PRN Administration pain,severe Omeprazole 20 mg 11/22/20 06:30 11/24/20 05:34 Omeprazole 20 Mg Capsule. PO 20 mg DAILY@0630 DANNY Administration Ondansetron HCl 4 mg 11/21/20 19:09 11/22/20 09:54 Ondansetron Hcl 4 Mg/2 Ml Vial IVPUSH 4 mg Q8H PRN Administration Nausea and Vomiting Ondansetron HCl 4 mg 11/21/20 21:01 Ondansetron Hcl 4 Mg/2 Ml Vial IVPUSH Q8H PRN Nausea and Vomiting Oxycodone HCl 5 mg 11/21/20 19:12 11/24/20 05:37 Oxycodone Hcl Immed Release 5 Mg Tablet PO 5 mg TID PRN Administration Pain Pharmacy Consult 1 each 11/21/20 17:17 Consult Rx Perform Med Rec MISCELLANE ONCE PRN Consult order Tommyxine HCl 1 appl 11/22/20 11:00 11/24/20 09:18 Pramoxine Hcl 1 % Rectal Foam 15 Gm MA 1 appl TID DANNY Administration Pravastatin Sodium 20 mg 11/22/20 21:00 11/23/20 21:39 Pravastatin Sodium 20 Mg Tablet PO 20 mg BEDTIME DANNY Administration Ropinirole HCl 0.25 mg 11/21/20 21:00 11/23/20 21:39 Ropinirole Hcl 0.25 Mg Tablet PO 0.25 mg BEDTIME DANNY Administration Sodium Chloride 3 ml 11/22/20 00:00 11/24/20 09:19 0.9 % Sodium Chloride Flush 3 Ml Syringe IVFLUSH 3 ml QSHIFT DANNY Administration Vancomycin HCl 250 mg 11/22/20 17:00 11/24/20 05:34 Vancomycin Hcl 125 Mg Capsule PO 250 mg Q6H DANNY Administration Labs CBC & Chem 7: 11/23/20 06:07 11/23/20 06:07 Microbiology Microbiology Results: Microbiology 11/22/20 10:23 Stool Culture - Preliminary Stool Normal so far. 11/21/20 12:46 Blood Culture - Preliminary Blood - Venous No growth after 48 hours. 11/21/20 12:35 Blood Culture - Preliminary Blood - Venous No growth after 48 hours. Quality Stroke Does the patient have a stroke diagnosis?: No VTE Prior VTE?: No VTE Risk Level:: Medical - moderate - high VTE Device Contraindication: N/A - Device Ordered VTE Drug Contraindication: N/A - Med Ordered Assessment and Plan (1) C. difficile colitis: Status: Acute Assessment and Plan: hospital d#4 70 year-old male with prostate CA s/p XRT, RLS, HLD, lung nodules, Monterroso's esophagus, and chronic back pain presenting with acute onset of nausea, vomiting, and diarrhea and found to have ileus and enterocolitis, C diff positive # ileus - resolved, on low-residue diet now # C diff colitis - d/c'ed pip/ervin, continue PO vancomycin d#07/24 # hypoMg - repleted # leukocytosis - due to colitis. resolved. # RLS - continue ropinirole # HLD - continue statin # chronic pain - continue prn oxycodone # Monterroso esophagus - continue PPI # VTE ppx - LMWH # dispo - likely home tomorrow if continues to do well and BMs decreased
--- NOTE | 2020-11-24 11:49 | MHC.CM.PN ---
PER PHYSICIAN ROUNDS, PLAN IS TO KEEP PATIENT ONE MORE DAY AND DC TOMORROW (11/25/20) IF ISSUES HAVE RESOLVED.
[2020-11-24] MEDS: Enoxaparin Sodium 40 MG/0.4 ML SYRINGE SUBCUT (18:21)
[2020-11-24] MEDS: Pravastatin Sodium 20 MG TABLET PO (21:12)
[2020-11-24] MEDS: rOPINIRole HCL 0.25 MG TABLET PO (21:12)
[2020-11-25] MEDS: 0.9 % Sodium Chloride Flush 3 ML SYRINGE IVFLUSH (00:46)
[2020-11-25] MEDS: vancomycin HCL 125 MG CAPSULE 250 MG PO ×2 (00:46→10:48)
[2020-11-25] MEDS: oxyCODONE HCl Immed Release 5 MG TABLET PO ×3 (02:22→09:18)
[2020-11-25 04:00] VITALS: BP 124/60; PULSE 63; RESP 18; TEMP 36.2; O2SAT 98
--- NOTE | 2020-11-25 06:21 | PC.NURSE ---
Loss of IV access - refusing attempt of new IV. Reports oxycodone worked well which was given at 0222, but not due. Dr Dennis made aware - ordered extra dose.
[2020-11-25] MEDS: Omeprazole 20 MG CAPSULE.DR PO (06:30)
[2020-11-25 07:54] VITALS: BP 126/84; PULSE 62; RESP 16; TEMP 36.3; O2SAT 97
[2020-11-25 08:10] LABS: Hematocrit 40.1 % (42-52); Hemoglobin 13.4 g/dl (14.0-18.0); Mean Corpuscular HGB Conc 33.4 g/dl (31.0-36.0); Mean Corpuscular Hemoglobin 29.1 pg (27.0-33.0); Mean Platelet Volume 10.1 fL (9.4-12.4); Platelet Count 186 X10*3/uL (160-400); Red Blood Count 4.61 X10*6/uL (4.60-5.80); Red Cell Distribution Width 11.9 % (11.0-16.0); White Blood Count 6.2 X10*3/uL (4.8-10.8)
[2020-11-25 08:35] LABS: Anion Gap 12 (12-20); Blood Urea Nitrogen 8 mg/dL (9-16); C Reactive Protein 0.78 mg/dL (< or = 0.50); Carbon Dioxide 29 mmol/L (22-29); Creatinine Clr Calc Pharmacy 72.8; Estimated Glomerular Filt Rate > 60
[2020-11-25] MEDS: Pramoxine HCl 1 % Rectal Foam 15 GM 1 APPL PR (09:13)
[2020-11-25] MEDS: Acetaminophen 325 MG TABLET 650 MG PO (09:17)
[2020-11-25 09:28] LABS: Calcium 9.3 mg/dL (8.4-10.2); Chloride 105 mmol/L (96-108); Glucose Random 104 mg/dL (60-115); Potassium 3.9 mmol/L (3.3-5.1); Sodium 142 mmol/L (135-145)
--- NOTE | 2020-11-25 11:40 | P.DS_ITS ---
DS: Providers Provider Date of Service: 11/25/20 Date of admission: 11/21/20 19:09 Primary care physician: [facility] [address] [place] [id number] Consults: 11/21/20 19:09 Consult to Gastroenterology Routine Consulting Provider: [facility] Reason for consultation: ileus but diarrhea DS: Diagnosis Discharge Diagnosis (1) C. difficile colitis: Status: Acute (2) Ileus: Status: Acute (3) Leukocytosis: Status: Acute (4) Hypomagnesemia: Status: Acute DS: Medications Discharge Medications Home Medications: Home Medications Medication Instructions Recorded Confirmed lovastatin 20 mg PO DAILY 03/23/20 11/21/20 oxycodone 5 mg PO TID PRN 03/23/20 11/21/20 ropinirole 0.25 mg PO BEDTIME 03/23/20 11/21/20 omeprazole 20 mg PO DAILY 11/21/20 11/21/20 Previous Rx's Medication Instructions Recorded vancomycin 250 mg PO Q6H 12 Days #96 cap 11/25/20 DS: Summary Hospital Course Hospital Course: From my admission H+P, 11/21/20: Mr Khan is a 70 year-old male with prostate CA s/p XRT, RLS, HLD, lung nodules, Monterroso's esophagus, and chronic back pain due to a fall sustained in the [place]. He presents to the ED with the acute onset of nausea leading to non- bloody, nonbilious emesis along with copious water diarrhea that started this morning. He also complains of crampy generalized abdominal pain, moderate in intensity. His was sick with a similar illness last night but this resolved today. They attributed their illness to a meal of hamburger and zucchini yesterday for dinner. He denies high-risk food exposures such as undercooked meats or seafood. No recent travel history. No fever. No lightheadedness. No recent antibiotic use. No chest pain and no cough or dyspnea. In the ED, he was given IV fluids, ondansetron, and IV morphine. He was found to have leukocytosis and hypomagnesemia. CT of the abdomen showed fluid-filled loops of small and large bowel suggestive of an ileus without a transition point to suggest an obstruction. There was question of enterocolitis as well. He was given a dose of IV piperacillin/tazobactam. The patient was admitted to the medical/surgical floor. He was initially given piperacillin/tazobactam for entercolitis. He was switched to PO vancomycin when he tested positive for Clostridium difficile. Diarrhea resolved. Magnesium was repleted. He was discharged home to complete a total of 14 days of PO vancomycin including 2 days done in the hospital. He should follow up with his primary care doctor in 1 week. Time Spent with Patient Time attestation: Total time spent providing and/or coordinating discharge services: 35 Discharge coordination time: Greater than 30 minutes Quality: Stroke Does the patient have a stroke diagnosis?: No Physical Exam Vital Signs: Vital Signs: Last Vital Signs Temp 97.3 F 11/25/20 07:54 Pulse 62 11/25/20 07:54 Resp 16 11/25/20 07:54 BP 126/84 11/25/20 07:54 Pulse Ox 97 11/25/20 07:54 Body Mass Index 20.6 Gen: in no acute distress HEENT: sclera anicteric, moist mucus membranes Neck: supple Lungs: clear to auscultation bilaterally Heart: regular rate and rhythm, no murmurs Abd: soft, non-tender, non-distended, normal bowel sounds Ext: no edema Skin: warm/well-perfused Neuro: alert and oriented x3, no focal findings Psych: appropriate affect DS: Data Data Completed and Pending Completed studies during hospitalization [Text1]: Laboratory Results WBC 6.2 X10*3/uL (4.8-10.8) 11/25/20 08:00 RBC 4.61 X10*6/uL (4.60-5.80) 11/25/20 08:00 Hgb 13.4 g/dl (14.0-18.0) L 11/25/20 08:00 Hct 40.1 % (42-52) L 11/25/20 08:00 MCV 87.0 fL (80-98) 11/25/20 08:00 MCH 29.1 pg (27.0-33.0) 11/25/20 08:00 MCHC 33.4 g/dl (31.0-36.0) 11/25/20 08:00 RDW 11.9 % (11.0-16.0) 11/25/20 08:00 Plt Count 186 X10*3/uL (160-400) 11/25/20 08:00 MPV 10.1 fL (9.4-12.4) 11/25/20 08:00 Immature Gran % (Auto) 0.3 % (0.0-0.4) 11/21/20 12:35 Neut % (Auto) 94.1 % (45-73) H 11/21/20 12:35 Lymph % (Auto) 1.1 % (20-40) L 11/21/20 12:35 [place] % (Auto) 4.4 % (2-11) 11/21/20 12:35 Eos % (Auto) 0.0 % (0-4) 11/21/20 12:35 Baso % (Auto) 0.1 % (0-2) 11/21/20 12:35 Lymph # (Auto) 0.2 X10*3/uL (1.2-4.9) L 11/21/20 12:35 [place] # (Auto) 0.7 X10*3/uL (0.1-1.2) 11/21/20 12:35 Eos # (Auto) 0.0 X10*3/uL (0.0-0.4) 11/21/20 12:35 Baso # (Auto) 0.0 X10*3/uL (0.0-0.2) 11/21/20 12:35 Abs Immat Gran (auto) 0.05 X10*3/uL (0.00-0.03) H 11/21/20 12:35 Absolute Neuts (auto) 14.6 X10*3/uL (2.0-8.3) H 11/21/20 12:35 Absolute Nucleated RBC 0.000 X10*3/uL (0.0-0.012) 11/25/20 08:00 Nucleated RBC % (auto) 0.0 /100WBC (0.0-0.2) 11/25/20 08:00 Smear Tech's Comments VERIFIED 11/21/20 12:35 Hold Purple Top SEE NOTE 11/21/20 12:36 PT 11.7 SEC (9.9-13.0) 11/21/20 12:36 INR 1.0 (0.9-1.1) 11/21/20 12:36 Sodium 142 mmol/L (135-145) 11/25/20 08:00 Potassium 3.9 mmol/L (3.3-5.1) 11/25/20 08:00 Chloride 105 mmol/L (96-108) 11/25/20 08:00 Carbon Dioxide 29 mmol/L (22-29) 11/25/20 08:00 Anion Gap 12 (12-20) 11/25/20 08:00 BUN 8 mg/dL (9-16) L 11/25/20 08:00 Creatinine 0.81 mg/dL (0.5-1.4) 11/25/20 08:00 Estim Creat Clear Calc 72.8 11/25/20 08:00 Estimated GFR > 60 11/25/20 08:00 Random Glucose 104 mg/dL (60-115) 11/25/20 08:00 Lactic Acid 1.2 mmol/L (0.5-2.0) 11/21/20 12:35 Calcium 9.3 mg/dL (8.4-10.2) D 11/25/20 08:00 Magnesium 1.8 mg/dL (1.6-2.6) 11/23/20 06:07 Total Bilirubin 1.3 mg/dL (0.0-1.0) H 11/21/20 12:36 AST 15 U/L (5-37) 11/21/20 12:36 ALT 11 U/L (0-40) 11/21/20 12:36 Alkaline Phosphatase 60 U/L (39-117) 11/21/20 12:36 C-Reactive Protein 0.78 mg/dL (< or = 0.50) H 11/25/20 08:00 B-Natriuretic Peptide 94 pg/mL (<100) 11/21/20 12:35 Total Protein 6.8 g/dL (6.5-8.0) 11/21/20 12:36 Albumin 4.3 g/dL (3.5-5.0) 11/21/20 12:36 Lipase 61 U/L (8-78) 11/21/20 12:36 Urine Color YELLOW 11/22/20 10:23 Urine Appearance CLEAR 11/22/20 10:23 Urine pH 5.5 (5.0-8.0) 11/22/20 10:23 Ur Specific [place] 1.025 (1.005-1.025) 11/22/20 10:23 Urine Protein TRACE MG/DL (NEG-TRACE) 11/22/20 10:23 Urine Glucose (UA) NEG MG/DL (NEG) 11/22/20 10:23 Urine Ketones 15 MG/DL (NEG) 11/22/20 10:23 Urine Blood NEG (NEG) 11/22/20 10:23 Urine Nitrite NEG (NEG) 11/22/20 10:23 Ur Leukocyte Esterase NEG (NEG) 11/22/20 10:23 Stool Collect Date Cancelled 11/22/20 10:23 Stool Occult Blood NEGATIVE (NEGATIVE) 11/22/20 Unknown Stool 2 Collect Date Cancelled 11/22/20 10:23 Stool Occult Blood #2 Cancelled 11/22/20 10:23 Stool 3 Collect Date Cancelled 11/22/20 10:23 Stool Occult Blood #3 Cancelled 11/22/20 10:23 Stool Leukocytes, Qual NEGATIVE (NEGATIVE) 11/22/20 10:23 C. difficile Tox B Gene POSITIVE (Negative) A* 11/22/20 10:23 C. difficile Toxin A&B Negative (Negative) 11/22/20 10:23 C. difficile Interpret SEE NOTE 11/22/20 10:23 Coronavirus (PCR) NEGATIVE (Negative) 11/21/20 12:46 Influenza Type A (PCR) NEGATIVE (Negative) 11/21/20 12:46 Influenza Type B (PCR) NEGATIVE (Negative) 11/21/20 12:46 RSV RNA Qual (PCR) NEGATIVE (Negative) 11/21/20 12:46 Impressions Chest X-Ray 11/21/20 13:27 IMPRESSION: No acute cardiopulmonary process seen. Abdomen/Pelvis CT 11/21/20 15:38 IMPRESSION: Fluid-filled loops of small and large bowel suggestive of an ileus. No transition zone to suggest mechanical obstruction. Diverticulosis of the colon. Areas of wall thickening of the distal left and sigmoid colon and small bowel questionable for colitis and enteritis. Upper normal-size gallbladder. No gallstone seen. Small left renal cysts. Radiation seeds in the prostate gland. Severe atherosclerotic disease. Stable left lower lobe pulmonary nodules. Discharge Plan Discharge Patient Disposition: Home, Self-Care Discharge Diagnosis: Clostridium difficile colitis Referrals: Catherine Sutton MD [Physician] - 1 Week Physician,Unknown [Primary Care Provider] - 1 Week Discharge Medications: New vancomycin 125 mg Capsule 250 mg PO Q6H 12 Days Qty: 96 RF: 0 Continued omeprazole 20 mg Capsule,Delayed Release(Dr/Ec) 20 mg PO DAILY RF: 0 ropinirole 0.25 mg Tablet 0.25 mg PO BEDTIME RF: 0 lovastatin 20 mg Tablet 20 mg PO DAILY RF: 0 oxycodone 5 mg Tablet 5 mg PO TID PRN (Reason: Pain) RF: 0 Discharge Orders: Discharge Order (Routine); Ordered 11/25/20 Ordered By: Juliet Shelton Diet: advance to usual diet Activity on Discharge: As tolerated Stand Alone Forms: Patient Portal Discharge page Care Plan Goals: relief of abdominal symptoms Health Concerns: C. difficile colitis Plan of Treatment: vancomycin 250 mg 4x a day for 12 days see your primary care doctor in 1 week Assessment: as above Patient Instructions: C. Diff (Clostridioides Difficile) Infection (DC)
--- NOTE | 2020-11-25 11:44 | MHC.CM.PN ---
Male 70 DX Illeus Patient is discharged home today with family transport
[2020-11-25 12:00] VITALS: BP 154/70; PULSE 64; RESP 17; TEMP 36.4; O2SAT 98
--- NOTE | 2020-11-25 13:34 | MHC.CM.PN ---
Received call from after DC Fritzo @,000 thru [facility]. Requested MD to fax to [facility]
== END 2020-11-25 12:50 | disposition home or self-care (01) | DRG 372 ==
LOC: HO.ED 19:12 → HO.EDOVER 19:34 → HO.S3 22:54
PROVIDERS: Physician Assistant Medical; Admitting Provider Family Medicine; Emergency Provider Internal Medicine; Visit Provider Family Medicine
DX: A04.72 Enterocolitis due to Clostridium difficile, not specified as recurrent (principal); K56.7 Ileus, unspecified; E83.42 Hypomagnesemia; G25.81 Restless legs syndrome; E78.5 Hyperlipidemia, unspecified; D72.829 Elevated white blood cell count, unspecified; K22.70 Barrett's esophagus without dysplasia; Z85.46 Personal history of malignant neoplasm of prostate; Z20.822 Contact with and (suspected) exposure to COVID-19; Z87.891 Personal history of nicotine dependence; Z88.5 Allergy status to narcotic agent; Z88.6 Allergy status to analgesic agent; Z79.899 Other long term (current) drug therapy
CPT/HCPCS: 0241U; 36415; 71045; 74177; 80048; 80053; 81003; 82270; 82272; 83605; 83690; 83735; 83880; 85025; 85027; 85610; 86140; 87040; 87045; 87046; 87324; 87493; 89055; 93005; 99285; J1170; J1650; J2270; J2405; J2543; J3475; Q9967

== ENCOUNTER 2021-02-07 06:14 | Day surgery (SDC) | payer MEDICARE, SELFPAY ==
--- NOTE | 2021-02-06 08:10 | P.CONAN_ITS ---
Documented by User: Alivia Perdomo NP 02/06/21 08:12 HPI - Anesthesia Eval Consult details Narrative: 70yo M for Upper Endoscopy and Colonoscopy [facility] Active Problems Active Problems: All Active Problems (Updated 02/02/21 @ 11:05 by Mariama Santiago, RN) Cellulitis (Acute) Puncture wound (Acute) Monterroso esophagus (Acute) Prostate cancer (Acute) Restless leg syndrome (Acute) HLD (hyperlipidemia) (Acute) Osteoarthritis (Acute) Cellulitis of left hand (Acute) Lung nodule (Chronic) Leukocytosis (Acute) Hypomagnesemia (Acute) Past Medical History Medical History (Updated 02/06/21 @ 08:11 by Alivia Perdomo NP) Abdominal pain Barretts esophagus C. difficile colitis Diaphragm injury Diarrhea Elevated cholesterol Ileus Liver laceration Lung nodule < 6cm on CT Nausea & vomiting Pelvis fracture Restless leg syndrome Sciatica Small bowel obstruction Upper GI bleed Family History Family History Mother Colon cancer Sister Pancreatic cancer Surgical History Surgical History (Updated 02/02/21 @ 11:15 by Mariama Santiago RN) H/O ankle fusion H/O knee surgery History of esophagogastroduodenoscopy (EGD) History of exploratory laparotomy History of prostate biopsy History of total left knee replacement (TKR) Hx of colonoscopy Hx of exploratory laparotomy Social History Social History Household Members: Spouse Housing: House Do you presently have visiting nurse or other home services: No Alcohol intake: current Alcohol intake frequency: a few times a month Alcohol type: beer Patient Tobacco Use Status: Former Tobacco user Quit Date: 1999 Cigarette Packs Per Day: 1 Second Hand Smoke Exposure: No Use of substances other than those prescribed or required for medical reasons: Yes Substance Use Type: Marijuana Substance Use Frequency: Daily Are you DNR?: No Advance Directives: No Advance Directives Information Provided: Yes service: Yes Current occupational status: disabled Meds Allergies Allergy/AdvReac Type Severity Reaction Status Date / Time aspirin Allergy Unknown Unknown Verified 02/02/21 11:40 gabapentin [Neurontin] Allergy Unknown Unknown Verified 02/02/21 11:40 Codeine Sulfate AdvReac Unknown vomiting Uncoded 02/02/21 11:40 Home Medications Medication Instructions Recorded Confirmed Last Taken Type lovastatin 20 mg tablet 20 mg PO DAILY 03/23/20 02/02/21 11/20/20 History oxycodone 5 mg tablet 5 mg PO TID PRN 03/23/20 02/02/21 11/20/20 History ropinirole 0.25 mg tablet 0.25 mg PO BEDTIME 03/23/20 02/02/21 11/20/20 History omeprazole 20 mg capsule,delayed 20 mg PO DAILY 11/21/20 02/02/21 11/20/20 History release Exam Exam Date and Time: February 06, [id number] Assessment and Plan Assessment Anesthesia Assessment: Chart Reviewed Documented by User: Kishan Sanchez MD 02/07/21 07:28 [facility] Past Medical History Medical History (Updated 02/06/21 @ 08:11 by Alivia Perdomo NP) Abdominal pain Barretts esophagus C. difficile colitis Diaphragm injury Diarrhea Elevated cholesterol Ileus Liver laceration Lung nodule < 6cm on CT Nausea & vomiting Pelvis fracture Restless leg syndrome Sciatica Small bowel obstruction Upper GI bleed Family History Family History Mother Colon cancer Sister Pancreatic cancer Family history of problems with anesthesia: No Surgical History Surgical History (Updated 02/02/21 @ 11:15 by Mariama Santiago RN) H/O ankle fusion H/O knee surgery History of esophagogastroduodenoscopy (EGD) History of exploratory laparotomy History of prostate biopsy History of total left knee replacement (TKR) Hx of colonoscopy Hx of exploratory laparotomy History of Problems with Anesthesia: No Social History Social History Household Members: Spouse Housing: House Do you presently have visiting nurse or other home services: No Alcohol intake: current Alcohol intake frequency: a few times a month Alcohol type: beer Patient Tobacco Use Status: Former Tobacco user Quit Date: 1999 Cigarette Packs Per Day: 1 Second Hand Smoke Exposure: No Use of substances other than those prescribed or required for medical reasons: Yes Substance Use Type: Marijuana Substance Use Frequency: Daily Are you DNR?: No Advance Directives: No Advance Directives Information Provided: Yes service: Yes Current occupational status: disabled Meds Allergies Allergy/AdvReac Type Severity Reaction Status Date / Time aspirin Allergy Unknown Unknown Verified 02/02/21 11:40 gabapentin [Neurontin] Allergy Unknown Unknown Verified 02/02/21 11:40 Codeine Sulfate AdvReac Unknown vomiting Uncoded 02/02/21 11:40 Home Medications Medication Instructions Recorded Confirmed Last Taken Type lovastatin 20 mg tablet 20 mg PO DAILY 03/23/20 02/02/21 11/20/20 History oxycodone 5 mg tablet 5 mg PO TID PRN 03/23/20 02/02/21 11/20/20 History ropinirole 0.25 mg tablet 0.25 mg PO BEDTIME 03/23/20 02/02/21 11/20/20 History omeprazole 20 mg capsule,delayed 20 mg PO DAILY 11/21/20 02/02/21 11/20/20 History release Exam Airway Mallampati Class: II TM Dist: >3cm Neck ROM: Full Denture: Upper Loose/Missing/Broken Teeth: Yes (lower poor dentition) Heart: [id number] Lungs: CTA b/l Assessment and Plan Assessment Anesthesia Assessment: Anesthesia Plan Discussed Final Anesthetic Review Family History of Problems with Anesthesia: No History of Problems with Anesthesia: No NPO: Yes ASA Class: III Final Preanesthetic Review: No Changes in Pt Med Stat, Meds/Allgs Chart Reviewed, Consent Obtained/Reviewed and Anes Risks/Benef Reviewed Patient Risk: Intermediate Procedure Risk: Low Assessment/Block/Sedation in SS: Assess/Block/Sedation-SS Anesthetic Plan Anesthetic Plan: MAC: and Agree w/ Assess. and Plan Disposition: Standard PACU
[2021-02-07 06:30] VITALS: BP 128/55; PULSE 53; RESP 16; TEMP 37; O2SAT 99; BMI 20.5
[2021-02-07] MEDS: Lactated Ringers 1,000 ML 100 ML IVCONT (06:50)
--- NOTE | 2021-02-07 07:25 | MHC.SHP ---
Pre-Procedural Eval Section A Date of Service: 02/07/21 Section B Chief Complaint: hx of polyps,barretts Details of Present Illness: see H&P no changes Relevant Family History (Specify if Yes): No Relevant Social History: None Present Medications: see Short Stay Collaborative assessment Medical History: No relevant PMH History of Previous Operations: No relevant previous surgery Allergies: Allergies Allergy/AdvReac Type Severity Reaction Status Date / Time aspirin Allergy Unknown Unknown Verified 02/02/21 11:40 gabapentin [Neurontin] Allergy Unknown Unknown Verified 02/02/21 11:40 Codeine Sulfate AdvReac Unknown vomiting Uncoded 02/02/21 11:40 Review of Systems Sugical H&P ROS: Negative: Constitution, Cardiovascular, Respiratory, Neurological, Psychiatric, Hem-Onc, Allergic/Immunologic, Gastrointestinal, Genitourinary, Musculoskeletal, Integumentary, Endocrine and Eyes/Ears/Nose/Throat Exam Surgical H&P Exam: Normal: HEENT, Normal: Heart, Normal: Lungs, Normal: Extremities, Normal: Abdomen, Normal: Skin and Normal: Neurological Plan Diagnosis/Plan: Unchanged I have reviewed the history and physical and performed a pertinent physical examination on my patient. No changes have occurred unless specified.
[2021-02-07 08:08] VITALS: BP 97/44; PULSE 59; RESP 17; TEMP 36.2; O2SAT 97
--- NOTE | 2021-02-07 08:08 | PM.OP ---
Brief Operative Note Date of Service: 02/07/21 Pre-op diagnosis: barretts, screening Post-op diagnosis: same Procedure: egd, colon Surgeon: Teja Barraza Anesthesia: MAC Was an Substance Abuse Therapist used for this Procedure?: No Estimated blood loss (mL): 5 Pathology: other (bxs esophagus, antrum) Condition: stable Disposition: PACU
[2021-02-07 08:23] VITALS: BP 121/62; PULSE 59; RESP 20; TEMP 36.2; O2SAT 99
--- NOTE | 2021-02-07 09:21 | OP_ITS ---
SURGEON: Teja Barraza MD INDICATIONS: 1. Monterroso's esophagus. 2. Screening and history of colon polyps. PREOPERATIVE DIAGNOSIS: POSTOPERATIVE DIAGNOSIS: PROCEDURE PERFORMED: 1. Upper endoscopy with biopsy. 2. Colonoscopy to the terminal ileum. ESTIMATED BLOOD LOSS: COMPLICATIONS: ANESTHESIA: ASSISTANTS: SPECIMENS: MEDICATIONS: Monitored anesthesia care. DESCRIPTION OF PROCEDURE: History and physical performed. The risks and benefits of the procedure were explained to the patient. Informed consent was obtained. The patient was placed in the left lateral decubitus position. The Olympus video gastroscope was introduced into the esophagus, stomach, and duodenum. Examination was performed. The scope was removed. He was repositioned for colonoscopy. A digital rectal exam was performed and was found to be normal. The Olympus pediatric video colonoscope was introduced into the rectum and advanced to the cecum without difficulty. The cecum was identified by transillumination, palpation, and identification of ileocecal valve. Examination was performed. The scope was removed. He tolerated both procedures well and was taken to recovery area in stable condition. FINDINGS: Upper endoscopy: Esophagus normal. The esophagus was remarkable for a segment of Monterroso's esophagus in the distal esophagus with no raised lesions or ulcerated areas. There was no esophagitis. Biopsies were obtained in all 4 quadrants at 36, 34 and 32 cm. Stomach: The stomach showed no evidence of masses or ulcers. There were several benign-appearing gastric polyps in the fundus. Antral biopsies were obtained to rule out H pylori. Duodenum: The bulb and second portion were normal. Colonoscopy: The terminal ileum was examined and appeared normal. The visualized colonic mucosa was within normal limits without evidence of masses or ulcers. There was moderate sigmoid diverticulosis with redundancy and luminal narrowing. The quality of the prep was good. There were telangiectasias in the rectum consistent with a prior history of radiation therapy. Retroflexed examination showed moderate-sized internal hemorrhoids. IMPRESSION: 1. Monterroso's esophagus. 2. Diverticulosis. RECOMMENDATION: 1. Followup the biopsy results. 2. Repeat colonoscopy could be considered in 10 years. MD JUAN Allen/BEULAH / [id number] MTDD
== END 2021-02-07 09:00 | disposition home or self-care (01) ==
PROVIDERS: Visit Provider Internal Medicine Gastroenterology
PROC: (CPT 43239; principal; 2021-02-07 07:30)
DX: Z12.11 Encounter for screening for malignant neoplasm of colon (principal); K57.30 Diverticulosis of large intestine without perforation or abscess without bleeding; K64.8 Other hemorrhoids; K62.7 Radiation proctitis; Q43.8 Other specified congenital malformations of intestine; Z86.010 Personal history of colon polyps; K22.70 Barrett's esophagus without dysplasia; K31.7 Polyp of stomach and duodenum
CPT/HCPCS: 43239; G0105; 88305; 88342; J3010

== ENCOUNTER 2021-04-05 08:20 | Outpatient (REF) | payer MEDICARE, SELFPAY ==
[2021-04-05 09:21] LABS: CDiff Gene PCR NEGATIVE (Negative)
== END 2021-04-05 08:21 | disposition home or self-care (01) ==
LOC: HO.LNP 08:20
PROVIDERS: Visit Provider Internal Medicine Gastroenterology
DX: R19.7 Diarrhea, unspecified (principal)
CPT/HCPCS: 87493

== ENCOUNTER 2022-07-05 07:18 | Outpatient (REF) | payer OTHER, MEDICARE, SELFPAY ==
--- NOTE | ~2022-07-05 | XR_ITS ---
EXAMINATION: XR CHEST CLINICAL INFORMATION: Lung nodules. Weight loss. COMPARISON: Previous chest CT and chest x-ray November 2020 TECHNIQUE: 2 views of the chest were obtained. FINDINGS: The cardiac and mediastinal contours are stable. The lungs are clear. Small pulmonary nodules seen by chest CT are not appreciated by chest x-ray. There is no pleural effusion or pneumothorax. There are degenerative changes of the spine. There are periarticular soft tissue calcifications adjacent to the right shoulder. Old sternal fracture. XR/XR chest 2V IMPRESSION: No evidence for acute disease in the chest.
--- NOTE | ~2022-07-05 | MR_ITS ---
EXAMINATION: MR CERVICAL SPINE WITHOUT CONTRAST CLINICAL INFORMATION: Chronic neck pain and numbness in 3 digits of the left hand. COMPARISON: No relevant prior imaging. TECHNIQUE: MRI of the cervical spine was obtained using routine sequences without contrast. FINDINGS: There is 2 mm anterolisthesis of C4 on C5 and 3 mm anterolisthesis of C7 on T1 related to advanced facet degenerative changes at these levels. Slight retrolisthesis of C5 on C6 and C6 on C7. Vertebral body heights are preserved. Mixed type I and type II degenerative endplate changes at C5-C6 and type II endplate changes at C6-C7. There is loss of intervertebral disc height and T2 signal intensity at multiple levels related to disc degeneration. There is no overt cord compression and no abnormal intramedullary signal changes. The cervicomedullary junction is normal. Limited visualization of the posterior fossa reveals no abnormal finding. Occipital condyles and lateral C1 masses are intact. There is advanced degenerative arthrosis of the atlantodental joint. C1-C2 articular facets are unremarkable. At C2-C3 the annular contour is normal. No canal or neuroforaminal , scattered At C3-C4 there is a bulging disc. Mild canal stenosis. Uncovertebral joint spurring and facet degenerative change causes severe bilateral neuroforaminal encroachment. At C4-C5 there is a slightly bulging disc. No canal stenosis. No substantial neuroforaminal encroachment. At C5-C6 there is a bulging disc and buckling of the ligamenta flava. Moderate canal stenosis. Uncovertebral joint spurring and facet degenerative change causes severe bilateral neuroforaminal encroachment. At C6-C7 there is a bulging disc and buckling of ligamenta flava. Moderate canal stenosis. Uncovertebral spurring and facet degenerative change causes moderate bilateral neuroforaminal encroachment. At C7-T1 there is a pseudodisc bulge. Advanced bilateral facet degenerative change. No canal stenosis. Mild to moderate bilateral neuroforaminal encroachment. Visualized soft tissues of the neck are normal. Vascular flow voids are maintained. MR/MR cervical spine wo con IMPRESSION: There is multilevel degenerative spondylosis of the cervical spine with 2 to 3 mm anterolisthesis of C4 on C5 and C7 on T1 related to facet degenerative changes at these levels. Slight retrolisthesis of C5 on C6 and C6 on C7. There is moderate canal stenosis at C5-C6 and C6-C7. Mild canal stenosis at C3-C4. No overt cord compression and no abnormal intramedullary signal changes. There are varying degrees of neuroforaminal encroachment related to uncovertebral joint spurring and facet degenerative change as described above.
== END 2022-07-05 07:19 | disposition home or self-care (01) ==
LOC: HO.MRI 07:18
PROVIDERS: PCP Internal Medicine; Visit Provider Internal Medicine
DX: R91.1 Solitary pulmonary nodule (principal); M54.12 Radiculopathy, cervical region
CPT/HCPCS: 71046; 72141

== ENCOUNTER 2023-06-15 07:10 | Inpatient (IN) | payer OTHER, SELFPAY ==
[2023-06-15] VITALS (11 sets, daily range): BP systolic 101–144; BP diastolic 47–76; PULSE 56–185; RESP 10–23; TEMP 36.5–36.9; O2SAT 91–99; BMI 22.2; BMI 21.8
--- NOTE | 2023-06-15 | ECG_ITS ---
Test Reason : CP Blood Pressure : / mmHG Vent. Rate : 142 BPM Atrial Rate : 000 BPM P-R Int : 000 ms QRS Dur : 086 ms QT Int : 258 ms P-R-T Axes : 000 068 268 degrees QTc Int : 396 ms Atrial fibrillation with rapid ventricular response with premature ventricular or aberrantly conducted complexes Marked ST abnormality, possible inferior subendocardial injury Abnormal ECG ST less depressed in Anterior leads Referred By: Ninoska Davalos Electronically Signed By:RYAN INMAN MD
--- NOTE | 2023-06-15 | ECG_ITS ---
Test Reason : CP Blood Pressure : / mmHG Vent. Rate : 063 BPM Atrial Rate : 063 BPM P-R Int : 142 ms QRS Dur : 084 ms QT Int : 402 ms P-R-T Axes : 081 080 089 degrees QTc Int : 411 ms Normal sinus rhythm Nonspecific T wave abnormality Abnormal ECG When compared with ECG of 15-JUN-2023 10:48, Sinus rhythm has replaced Atrial fibrillation Vent. rate has decreased BY [address] no longer depressed in Inferior leads ST no longer depressed in Anterolateral leads Referred By: Aleksey Coats Electronically Signed By:JULES HAUJA
--- NOTE | ~2023-06-15 | XR_ITS ---
EXAMINATION: XR CHEST CLINICAL INFORMATION: Shortness of breath COMPARISON: Chest radiograph from 07/05/2023 TECHNIQUE: 2 views of the chest were obtained. FINDINGS: Stable hyperinflation the bilateral lung phillips. Chronic interstitial markings. No pneumothorax. Trachea is midline. Cardiac mediastinal silhouette is stable. Aorta demonstrates atherosclerotic calcification. No large pleural effusion. Osteopenia with multilevel degenerative changes of the thoracolumbar spine. Persistent ossific density overlying the right scapula. XR/XR chest 2V IMPRESSION: 1. Stable hyperinflation the bilateral lung phillips. 2. Chronic interstitial markings.
--- NOTE | 2023-06-15 07:11 | ECG_ITS ---
Test Reason : CP Blood Pressure : / mmHG Vent. Rate : 090 BPM Atrial Rate : 090 BPM P-R Int : 136 ms QRS Dur : 084 ms QT Int : 340 ms P-R-T Axes : 084 078 066 degrees QTc Int : 415 ms Normal sinus rhythm Possible Left atrial enlargement Nonspecific ST abnormality Abnormal ECG When compared with ECG of 21-NOV-2020 16:08, Nonspecific T wave abnormality no longer evident in Inferior leads Nonspecific T wave abnormality no longer evident in Lateral leads Referred By: Generic ED Physician Electronically Signed By:RYAN INMAN MD
[2023-06-15 07:51] LABS: MANUAL DIFF FLAG NO
[2023-06-15 07:54] LABS: Basophils Percent Auto 0.2 % (0-2); Eosinophils Absolute Auto 0.6 X10*3/uL (0.0-0.4); Eosinophils Percent Auto 7.2 % (0-4); Hematocrit 42.9 % (42.0-52.0); Hemoglobin 14.3 g/dl (14.0-18.0); Imm Gran Abs Auto 0.04 X10*3/uL (0.00-0.03); Imm Gran Pct Auto 0.5 % (0.0-0.4); Lymphocytes Absolute Auto 1.1 X10*3/uL (1.2-4.9); Lymphocytes Percent Auto 12.4 % (20-40); Mean Corpuscular HGB Conc 33.3 g/dl (31.0-36.0); Mean Corpuscular Hemoglobin 29.5 pg (27.0-33.0); Mean Corpuscular Volume 88.5 fL (80.0-98.0); Mean Platelet Volume 9.6 fL (9.4-12.4); Monocytes Absolute Auto 0.7 X10*3/uL (0.1-1.2); Monocytes Percent Auto 7.9 % (2-11); Neutrophils Absolute Auto 6.4 x10*3/uL (2.0-8.3); Neutrophils Percent Auto 71.8 % (45-73); Platelet Count 228 X10*3/uL (160-400); Red Blood Count 4.85 X10*6/uL (4.60-5.80); Red Cell Distribution Width 12.8 % (11.0-16.0); White Blood Count 8.9 X10*3/uL (4.8-10.8)
[2023-06-15 08:02] LABS: Prothrombin Time 11.7 SEC (11.1-13.3)
[2023-06-15 08:04] LABS: VBG Base Excess 3.9 mmol/L; VBG HCO3 31 mmol/L (22-26); VBG pCO2 58 mmHg; VBG pH 7.33 (7.32-7.43); VBG pO2 39 mmHg
[2023-06-15 08:09] LABS: Venous Blood Gas Refer to POC result
[2023-06-15 08:10] LABS: Alanine Aminotransferase 17 U/L (0-40); Albumin Level 4.5 g/dL (3.5-5.0); Alkaline Phosphatase 88 U/L (39-117); Anion Gap 13 (12-20); Aspartate Amino Transferase 17 U/L (5-37); Bilirubin Total 0.5 mg/dL (0.0-1.0); Blood Urea Nitrogen 11 mg/dL (9-16); Calcium 10.1 mg/dL (8.4-10.2); Carbon Dioxide 29 mmol/L (22-29); Chloride 106 mmol/L (96-108); Creatinine Clr Calc Pharmacy 67.5; Estimated Glomerular Filt Rate > 60; Glucose Random 112 mg/dL (60-115); Potassium 4.6 mmol/L (3.3-5.1); Sodium 143 mmol/L (135-145); Total Protein 7.3 g/dL (6.5-8.0)
[2023-06-15 08:13] LABS: B Type Natriuretic Peptide 117 pg/mL (<100)
[2023-06-15 08:14] LABS: Lactic Acid 2.4 mmol/L (0.5-2.0)
[2023-06-15 08:20] LABS: Troponin-I High Sensitivity < 2.7 ng/L (<3.5-35.0)
[2023-06-15] MEDS: methylPREDNISolone Sod Succ 125 MG/2 ML VIAL IVPUSH (08:57)
[2023-06-15] MEDS: Albuterol Sulfate 2.5 MG, Albuterol Sulfate (0.083%) 2.5 MG 5 MG INHALE (09:04)
--- NOTE | 2023-06-15 09:09 | ED.SOB ---
HPI - SOB/Dyspnea General Chief Complaint: Dyspnea Stated Complaint: chest pain diff breathing Time Seen by Provider: 06/15/23 07:29 Source: patient Mode of arrival: ambulatory History of Present Illness HPI Narrative: 72-year-old male who presents for increasing shortness of breath for the past week with increased productive cough, yellow phlegm and reports left-sided chest discomfort with dyspnea on exertion and increased work of breathing. He has a former smoker but denies any diagnoses chronic obstructive lung disease. Related Data Home Medications Medication Instructions Recorded Confirmed lovastatin 20 mg tablet 20 mg PO DAILY 03/23/20 11/12/22 oxycodone 5 mg tablet 5 mg PO TID PRN Pain 03/23/20 11/12/22 ropinirole 0.25 mg tablet 0.25 mg PO BEDTIME 03/23/20 11/12/22 omeprazole 20 mg capsule,delayed 20 mg PO DAILY 11/21/20 11/12/22 release Allergies Allergy/AdvReac Type Severity Reaction Status Date / Time Codeine Sulfate AdvReac Unknown vomiting Uncoded 06/15/23 07:23 Review of Systems Review of Systems: Pertinent positives and negatives as stated in HPI PMFSH Past Medical History Source: nursing notes reviewed Medical History Restless leg syndrome Elevated cholesterol Upper GI bleed Barretts esophagus C. difficile colitis Ileus Abdominal pain Diarrhea Nausea & vomiting Lung nodule < 6cm on CT Small bowel obstruction Diaphragm injury Pelvis fracture Liver laceration Sciatica Surgical History History of prostate biopsy History of total left knee replacement (TKR) Hx of exploratory laparotomy History of exploratory laparotomy History of esophagogastroduodenoscopy (EGD) Hx of colonoscopy H/O ankle fusion H/O knee surgery Family History Family History Mother Colon cancer Sister Pancreatic cancer Social History Social History Household Members: Spouse Housing: House Are you a primary residential child care counselor to a significant other at home: No Do you presently have visiting nurse or other home services: No Alcohol intake: current Alcohol intake frequency: a few times a month Alcohol type: beer 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 Tobacco Use Status: Former Tobacco user Quit Date: 1999 Tobacco use type: Cigarette Cigarette Packs Per Day: 1 Smoked in Last 30 Days: No Second Hand Smoke Exposure: No Use of substances other than those prescribed or required for medical reasons: No Substance Use Type: Marijuana Advance Directives: No Advance Directives Information Provided: No service: Yes Current occupational status: disabled Physical Exam Vital Signs: Vital Signs: Last Vital Signs Temp 98.4 F 06/15/23 10:55 Pulse 151 H 06/15/23 10:55 Resp 16 06/15/23 10:55 BP 117/47 L 06/15/23 10:55 Pulse Ox 96 06/15/23 10:55 O2 Del Method Nasal Cannula 06/15/23 10:55 O2 Flow Rate 3 06/15/23 10:55 BMI result Body Mass Index 22.2 VITAL SIGNS: Reviewed. GENERAL: Well developed, well nourished, in no acute distress. HEAD: Normocephalic/atraumatic EYES: PERRLA, EOMI EARS: Ext canals without abnormality NOSE: Nares patent bilateral OROPHARYNX: no oral lesions noted, posterior pharynx clear NECK: Supple, no adenopathy LUNGS: Decreased breath sounds with crackles, increased work of breathing. SpO2<95> CARDIOVASCULAR: Regular rate and rhythm without noted murmurs, no JVD or lower extremity edema. ABDOMEN: Soft, non-tender, non-distended with bowel sounds. MUSCULOSKELETAL: No tenderness, deformities, or effusions noted on gross inspection. EXTREMITIES: No cyanosis, clubbing or edema. SKIN: Inspection of the skin reveals no rashes NEUROLOGIC: Alert and oriented x 4. Strength and sensation to light touch were grossly intact x 4. Medications Administered Generic Name Dose Route Start Last Admin Trade Name Freq PRN Reason Stop Dose Admin Diltiazem HCl 125 mg/ Sodium 125 mls @ 0 mls/hr 06/15/23 11:00 06/15/23 11:04 Chloride IVCONT 10 mg/hr .Q0M DANNY 10 mls/hr Administration Protocol Per Protocol Discontinued Medications Generic Name Dose Route Start Last Admin Trade Name Freq PRN Reason Stop Dose Admin Adenosine 6 mg 06/15/23 10:29 06/15/23 10:23 Adenosine 6 Mg/2 Ml Vial IVPUSH 06/15/23 10:30 6 mg ONCE ONE Administration Adenosine 12 mg 06/15/23 10:30 06/15/23 10:26 Adenosine 6 Mg/2 Ml Vial IVPUSH 06/15/23 10:31 12 mg ONCE ONE Administration Albuterol Sulfate 2.5 mg/ 5 mg 06/15/23 08:59 06/15/23 09:04 Albuterol Sulfate 2.5 mg INHALE 06/15/23 09:00 5 mg ONCE ONE Administration Diltiazem HCl 10 mg 06/15/23 10:40 06/15/23 10:44 Diltiazem Hcl 50 Mg/10 Ml Vial IVPUSH 06/15/23 10:41 10 mg STAT STA Administration Furosemide 20 mg 06/15/23 09:12 06/15/23 09:40 Furosemide 20 Mg/2 Ml Vial IVPUSH 06/15/23 09:13 20 mg ONCE ONE Administration Protocol Doxycycline Hyclate 100 mg/ 250 mls @ 166.67 mls/hr 06/15/23 09:14 06/15/23 09:40 Sodium Chloride IV 06/15/23 10:43 166.67 mls/hr ONCE ONE Administration Methylprednisolone Sodium Succinate 125 mg 06/15/23 08:50 06/15/23 08:57 Methylprednisolone Sod Succ 125 Mg/2 Ml Vial IVPUSH 06/15/23 08:51 125 mg ONCE ONE Administration Metoprolol Tartrate 5 mg 06/15/23 10:29 06/15/23 10:14 Metoprolol Tartrate 5 Mg/5 Ml Vial IVPUSH 06/15/23 10:30 5 mg ONCE ONE Administration Metoprolol Tartrate 5 mg 06/15/23 10:30 06/15/23 10:29 Metoprolol Tartrate 5 Mg/5 Ml Vial IVPUSH 06/15/23 10:31 5 mg ONCE ONE Administration Medical Decision Making Medical Decision Making [facility] Narrative: 0730: 72-year-old male with history and clinical presentation, DDX: Viral illness, bronchitis, pneumonia, COPD, CHF I reviewed all investigations and hematologic indices do not demonstrate a leukocytosis or left shift and there is no anemia or thrombocytopenia. Coagulation studies are within normal limits. VBG does not demonstrate respiratory acidosis but there is a mild hypercapnia appreciated and likely consistent with a COPD picture. Patient will receive e.d. bronchodilator protocol as well as steroids. Chemistry indices do not demonstrate an CONCHA and there is no electrolyte or liver enzyme derangements. High sensitivity troponin is undetectable, lactic acid is noted to be elevated at 2.4 and BNP is noted to be mildly elevated-117 and will receive 20 mg of Lasix. Chest x-ray does not demonstrate any infiltrates or abnormal venous congestion but appearance is consistent with a COPD. Due to the degree of increased sputum production and COPD will treat with antibiotics. Suspected dispo is home. 1000: Informed by nursing that patient's heart rate was over 200, patient complaint of pain in the right arm as well as his neck. 1010: EKG demonstrates suspicion for atrial fibrillation, however given the rate very difficult to determine at this point in initiated 5 mg of Lopressor which did reduce patient heart rate into the 150s-170s. EKG demonstrates ST depressions likely indicative of subendocardial injury secondary to RVR/tachycardia. Patient then received 6 mg of adenosine with resumption of tachycardic rate and repeat EKG demonstrates HR-156 and still reports it as atrial fibrillation with RVR though in lead 2 as well as V1 I appreciate occasional P waves. And suspect that patient may be going in and out of atrial fibrillation. Proceeded with another 12 mg of adenosine to determine heart rhythm, however heart rate immediately resumed into the 150s. At this time, gave an additional 5 mg of Lopressor, patient remains conscious, hemodynamically stable and neck/arm pain has completely resolved. Dispo at this time will be admission. Administered 10 mg Cardizem, blood pressure remained stable, heart rate did somewhat improve, ST depressions have significantly improved, however will need to initiate Cardizem drip at this time. 1101: I discussed the case with Cardiology, Dr. Segura, who agrees with Cardizem drip and recommend Xarelto and switching breathing treatments to Xopenex. [email or web address] Score for Atrial Fibrillation Stroke Risk from [email or web address] on 06/15/2023 All calculations should be rechecked by clinician prior to use RESULT SUMMARY: 2 points Stroke risk was 2.2% per year in >90,000 patients (the [place] Atrial Fibrillation Cohort Study) and 2.9% risk of stroke/TIA/systemic embolism. One recommendation suggests a 0 score for men or 1 score for women (no clinical risk factors) is ?low? risk and may not require anticoagulation; a 1 score for men or 2 score for women is ?low-moderate? risk and should consider antiplatelet or anticoagulation; and a score >= for men or >= for women is ?moderate-high? risk and should otherwise be an anticoagulation candidate. INPUTS: Age ?> 1 = 65-74 Sex ?> 0 = Male CHF history ?> 0 = No Hypertension history ?> 1 = Yes Stroke/TIA/thromboembolism history ?> 0 = No Vascular disease history (prior SD, peripheral artery disease, or aortic plaque) ?> 0 = No Diabetes history ?> 0 = No HAS-BLED Score for Major Bleeding Risk from [email or web address] on 06/15/2023 All calculations should be rechecked by clinician prior to use RESULT SUMMARY: 2 points Risk was 4.1% in one validation study (Lorna 2010) and 1.88 bleeds per 100 patient-years in another validation study (Pisters 2010). Anticoagulation can be considered, however patient does have moderate risk for major bleeding (~2/100 patient-years). INPUTS: Hypertension ?> 0 = No Renal disease ?> 0 = No Liver disease ?> 0 = No Stroke history ?> 0 = No Prior major bleeding or predisposition to bleeding ?> 1 = Yes Labile INR ?> 0 = No Age >65 ?> 1 = Yes Medication usage predisposing to bleeding ?> 0 = No Alcohol use ?> 0 = No Antibiotics were discontinued due to critical emergent intervention being required but has been restarted. Differential Diagnosis Differential Diagnoses: The differential diagnosis associated with the presentation includes Please see the discussion above Admission/Observation Consideration of admission/observation: Escalation of care including admission/observation considered Please see the discussion above Consult Healthcare Provider Management of the patient was discussed with: Hospitalist and Organizational Psychologist Please see the discussion above Lab Data MDM Lab Attestation statement: I reviewed the patient's lab results. Please see the discussion above 06/15/23 07:44 06/15/23 07:44 Labs: Lab Results 06/15/23 06/15/23 06/15/23 Range/Units 07:44 07:46 07:57 WBC 8.9 (4.8-10.8) X10*3/uL RBC 4.85 (4.60-5.80) X10*6/uL Hgb 14.3 (14.0-18.0) g/dl Hct 42.9 (42.0-52.0) % MCV 88.5 (80.0-98.0) fL MCH 29.5 (27.0-33.0) pg MCHC 33.3 (31.0-36.0) g/dl RDW 12.8 (11.0-16.0) % Plt Count 228 (160-400) X10*3/uL MPV 9.6 (9.4-12.4) fL Immature Gran % (Auto) 0.5 H (0.0-0.4) % Neut % (Auto) 71.8 (45-73) % Lymph % (Auto) 12.4 L (20-40) % Williamson % (Auto) 7.9 (2-11) % Eos % (Auto) 7.2 H (0-4) % Baso % (Auto) 0.2 (0-2) % Lymph # (Auto) 1.1 L (1.2-4.9) X10*3/uL Williamson # (Auto) 0.7 (0.1-1.2) X10*3/uL Eos # (Auto) 0.6 H (0.0-0.4) X10*3/uL Baso # (Auto) 0.0 (0.0-0.2) X10*3/uL Abs Immat Gran (auto) 0.04 H (0.00-0.03) X10*3/uL Absolute Neuts (auto) 6.4 (2.0-8.3) x10*3/uL Absolute Nucleated RBC 0.000 (0.0-0.012) X10*3/uL Nucleated RBC % (auto) 0.0 (0.0-0.2) /100WBC PT 11.7 (11.1-13.3) SEC INR 1.0 (0.9-1.1) VBG pH 7.33 (7.32-7.43) VBG pCO2 58 mmHg VBG pO2 39 mmHg VBG HCO3 31 H (22-26) mmol/L VBG O2 Saturation 55.0 % VBG Base Excess 3.9 mmol/L Sodium 143 (135-145) mmol/L Potassium 4.6 (3.3-5.1) mmol/L Chloride 106 (96-108) mmol/L Carbon Dioxide 29 (22-29) mmol/L Anion Gap 13 (12-20) BUN 11 (9-16) mg/dL Creatinine 0.91 (0.5-1.4) mg/dL Estim Creat Clear Calc 67.5 Estimated GFR > 60 Random Glucose 112 (60-115) mg/dL Lactic Acid 2.4 H* (0.5-2.0) mmol/L Calcium 10.1 D (8.4-10.2) mg/dL Total Bilirubin 0.5 (0.0-1.0) mg/dL AST 17 (5-37) U/L ALT 17 (0-40) U/L Alkaline Phosphatase 88 (39-117) U/L Troponin I High Sens < 2.7 (<3.5-35.0) ng/L B-Natriuretic Peptide 117 H (<100) pg/mL Total Protein 7.3 (6.5-8.0) g/dL Albumin 4.5 (3.5-5.0) g/dL COVID-19 (MILIND) (Negative) COVID-19 Clin Com Influenza Type A (CARISSA) (Negative) Influenza Type B (CARISSA) (Negative) Influenza A & B Note 06/15/23 Range/Units 09:07 WBC (4.8-10.8) X10*3/uL RBC (4.60-5.80) X10*6/uL Hgb (14.0-18.0) g/dl Hct (42.0-52.0) % MCV (80.0-98.0) fL MCH (27.0-33.0) pg MCHC (31.0-36.0) g/dl RDW (11.0-16.0) % Plt Count (160-400) X10*3/uL MPV (9.4-12.4) fL Immature Gran % (Auto) (0.0-0.4) % Neut % (Auto) (45-73) % Lymph % (Auto) (20-40) % Williamson % (Auto) (2-11) % Eos % (Auto) (0-4) % Baso % (Auto) (0-2) % Lymph # (Auto) (1.2-4.9) X10*3/uL Williamson # (Auto) (0.1-1.2) X10*3/uL Eos # (Auto) (0.0-0.4) X10*3/uL Baso # (Auto) (0.0-0.2) X10*3/uL Abs Immat Gran (auto) (0.00-0.03) X10*3/uL Absolute Neuts (auto) (2.0-8.3) x10*3/uL Absolute Nucleated RBC (0.0-0.012) X10*3/uL Nucleated RBC % (auto) (0.0-0.2) /100WBC PT (11.1-13.3) SEC INR (0.9-1.1) VBG pH (7.32-7.43) VBG pCO2 mmHg VBG pO2 mmHg VBG HCO3 (22-26) mmol/L VBG O2 Saturation % VBG Base Excess mmol/L Sodium (135-145) mmol/L Potassium (3.3-5.1) mmol/L Chloride (96-108) mmol/L Carbon Dioxide (22-29) mmol/L Anion Gap (12-20) BUN (9-16) mg/dL Creatinine (0.5-1.4) mg/dL Estim Creat Clear Calc Estimated GFR Random Glucose (60-115) mg/dL Lactic Acid (0.5-2.0) mmol/L Calcium (8.4-10.2) mg/dL Total Bilirubin (0.0-1.0) mg/dL AST (5-37) U/L ALT (0-40) U/L Alkaline Phosphatase (39-117) U/L Troponin I High Sens (<3.5-35.0) ng/L B-Natriuretic Peptide (<100) pg/mL Total Protein (6.5-8.0) g/dL Albumin (3.5-5.0) g/dL COVID-19 (MILIND) Negative (Negative) COVID-19 Clin Com See Note Influenza Type A (CARISSA) Negative (Negative) Influenza Type B (CARISSA) Negative (Negative) Influenza A & B Note See Note Independent Interpretation I performed an independent interpretation of an: EKG Interpretation: Normal sinus rhythm, HR-90, AR/QRS/QTC is within normal limits. Radiology Impression Discussion of test interpretation with radiology: I have reviewed the radiologist's reading. Radiologist Impression: Please see the discussion above External Record Review External record reviewed: Outpatient record, Prior outpatient labs and Prior outpatient radiology Critical Care Time Critical Care Time Critical Care Time: Yes Total Critical Care Time: 120 Attestation: I personally attest to this time spent taking care of the patient. Discharge Plan Discharge Clinical Impression: Atrial flutter with rapid ventricular response, COPD exacerbation Patient Disposition: Admitted As Inpatient Prescriptions: No Action omeprazole 20 mg Capsule,Delayed Release(Dr/Ec) 20 mg PO DAILY ropinirole 0.25 mg Tablet 0.25 mg PO BEDTIME lovastatin 20 mg Tablet 20 mg PO DAILY oxycodone 5 mg Tablet 5 mg PO TID PRN (Reason: Pain)
[2023-06-15 09:33] LABS: COVID-19 Test Negative (Negative); IDNOW Serial# 08D9AD1C
[2023-06-15 09:34] LABS: IDNOW Serial# 152EDE1D; Influenza A Negative (Negative); Influenza B2 Negative (Negative)
[2023-06-15] MEDS: Doxycycline Hyclate 100 MG in 0.9 % Sodium Chloride 250 ML 166.67 MG IV (09:40)
[2023-06-15] MEDS: Furosemide 20 MG/2 ML VIAL IVPUSH (09:40)
[2023-06-15 09:49] LABS: Reflex Lactate? Lactic Acid Added
--- NOTE | 2023-06-15 10:08 | ECG_ITS ---
Test Reason : CP Blood Pressure : / mmHG Vent. Rate : 181 BPM Atrial Rate : 000 BPM P-R Int : 000 ms QRS Dur : 084 ms QT Int : 260 ms P-R-T Axes : 000 075 258 degrees QTc Int : 451 ms Atrial fibrillation with rapid ventricular response Marked ST abnormality, possible inferior subendocardial injury Marked ST abnormality, possible anterolateral subendocardial injury Abnormal ECG When compared with ECG of 15-JUN-2023 07:16, Significant changes have occurred Referred By: Ninoska Davalos Electronically Signed By:RYAN INMAN MD
--- NOTE | 2023-06-15 10:13 | PC.NURSE ---
PT C/O L FOREARM PAIN RADIATING TO L SIDE OF NECK. AT BEDSIDE HR 200 THEN 183. 02 APPLIED AT 3L/M VIA N/C. HEPLOCK #18 TO R AC. LOPRESSOR 5MG ADMINISTERED AT 1014 WITH SOME EFFECT THEN HEART RATE INCREASE TO 180. ADENOSINE 6MG WITH RAPID NS FLUSHED ADMINISTERED AT 1023 WITH NO EFFECT. ADENOSINE 12MG WITH RAPID NS FLUSH ADMINISTERED, HR 140-160. LOPRESSOR 5MG IV GIVEN AT 1029 AFTER WHICH HR IS UP TO 162.
[2023-06-15] MEDS: Metoprolol Tartrate 5 MG/5 ML VIAL IVPUSH ×2 (10:14→10:29)
--- NOTE | 2023-06-15 10:15 | PC.NURSE ---
PER MD - ABT DOXYCYLINE HELD. ABT WAS INFUSING IN L FOREARM.
[2023-06-15] MEDS: Adenosine 6 MG/2 ML VIAL IVPUSH (10:23)
[2023-06-15] MEDS: Adenosine 6 MG/2 ML VIAL 12 MG IVPUSH (10:26)
[2023-06-15] MEDS: dilTIAZem HCL 50 MG/10 ML VIAL 10 MG IVPUSH (10:44)
--- NOTE | 2023-06-15 10:55 | PC.NURSE ---
PER MD - ABT DOXYCYLINE IV RE-STARTED.
[2023-06-15] MEDS: dilTIAZem HCL 125 MG in 0.9 % Sodium Chloride 100 ML 10 MG IVCONT (11:04)
--- NOTE | 2023-06-15 11:25 | PC.NURSE ---
CARDIAZEM DRIP INCREASED FROM 10MG/HR TO 15MG/HR. H[facility]P [facility] ([facility]) AT BEDSIDE. PT AWARE OF PLAN OF CARE FOR ADMISSION TO HOSP. PROD-COUGH CLEAR THEN NOW YELLOW..
[2023-06-15] MEDS: Rivaroxaban 20 MG TABLET PO (11:47)
--- NOTE | 2023-06-15 11:52 | PHA.MEDREC ---
Pharmacy Consult ? Medication Reconciliation Pharmacy has completed the medication reconciliation. patient [facility]
[2023-06-15 12:12] LABS: ~Lactic Acid-LAB USE ONLY 2.3 mmol/L (0.5-2.0)
--- NOTE | 2023-06-15 12:14 | P.HPHOSP_ITS ---
History of Present Illness Date of Service: 06/15/23 Attending physician on admission: Aleksey Coats Chief Complaint: sob, cough 72 year old male with history of chronic low back pain, hld, barretts esophagus, prostate ca s/o xrt, pulmonary nodules who is a former smoker presented to the ED earlier today for evaluation of SOB ongoing x several weeks. Describes intermittent periods of both BARR and SOB at rest. Also has orthopnea. [place] with associated sharp chest pains that resolved after several minutes without radiation. No chest pressure. Has no known history of chronic lung disease but is a former smoker who quit about 20 years ago. Reports using his 's albuterol inhaler which did help his SOB. yesterday, developed productive cough w/ yellow/white sputum production. No fevers, chills, sore throat, congestion, abd pain, n/v/d, lightheadedness, palpitations, chest pressure. On arrival, pt slightly tachpneic with diffuse expiratory wheezing, vitals otherwise stable. CXR negative for pneumonia but showed chronic interstitial marking, no leukocytosis. Pt given IV methylprednisolone and duoneb. Developed new onset rapid afib/flutter with HR 180-200s. Given IV adenosine 6mg and 12 mg, 10mg labetolol, 10mg diliazem without much improvement. Starte don cardizem drip per protocol. He is currently asymptomatic with HR 130-170, maxxed on dilt drip. Renal function normal, electrolytes normal. Initial lactic acid 2.4, repeat 2.3. Trop below detectable limits, BNP 117. Negative for COVID19, influenza. TSH pending. VBG reassuring. IN the ED< also given 20mg xarelto per cardiology, doxycycline, 20mg lasix. Review of Systems 2 Review of Systems: General: No fevers, malaise, unintentional weight loss HEENT: No blurred vision, diplopia. No sore throat, nasal congestion, rhinorrhea, sinus pain, ear pain Cardiovascular: No chest pain, palpitations, or leg edema Respiratory: +orthopnea, +sob, +barr, +cough. No wheezing GI: No abdominal pain, nausea, vomiting, diarrhea, constipation, melena, hematochezia : No dysuria, hematuria, increased urinary frequency, decreased urinary output MSK: No myalgia, back pain Neuro: No headaches, weakness, paresthesias Skin: No rashes or lesions [facility] Medical History Restless leg syndrome Elevated cholesterol Upper GI bleed Barretts esophagus C. difficile colitis Ileus Abdominal pain Diarrhea Nausea & vomiting Lung nodule < 6cm on CT Small bowel obstruction Diaphragm injury Pelvis fracture Liver laceration Sciatica Family History Mother Colon cancer Sister Pancreatic cancer Surgical History History of prostate biopsy History of total left knee replacement (TKR) Hx of exploratory laparotomy History of exploratory laparotomy History of esophagogastroduodenoscopy (EGD) Hx of colonoscopy H/O ankle fusion H/O knee surgery Social History Household Members: Spouse Housing: House Are you a primary healthcare project manager to a significant other at home: No Do you presently have visiting nurse or other home services: No Alcohol intake: current Alcohol intake frequency: a few times a month Alcohol type: beer 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 Tobacco Use Status: Former Tobacco user Quit Date: 1999 Tobacco use type: Cigarette Cigarette Packs Per Day: 1 Smoked in Last 30 Days: No Second Hand Smoke Exposure: No Use of substances other than those prescribed or required for medical reasons: No Substance Use Type: Marijuana Advance Directives: No Advance Directives Information Provided: No service: Yes Current occupational status: disabled Meds Allergies Allergy/AdvReac Type Severity Reaction Status Date / Time Codeine Sulfate AdvReac Unknown vomiting Uncoded 06/15/23 07:23 Active Medications: Current Medications Acetaminophen (Acetaminophen 325 Mg Tablet) 650 mg PO Q6H PRN PRN Reason: Pain, Mild (Pain Scale 1-3) Digoxin (Digoxin 0.5 Mg/2 Ml Ampul) 0.25 mg IVPUSH Q6H DANNY Stop: 06/15/23 18:16 Diltiazem HCl 125 mg/ Sodium (Chloride) 125 mls @ 0 mls/hr IVCONT .Q0M DANNY; Protocol Last Admin: 06/15/23 11:04 Dose: 10 mg/hr, 10 mls/hr Ondansetron HCl (Ondansetron Hcl 4 Mg/2 Ml Vial) 4 mg IVPUSH Q8H PRN PRN Reason: Nausea and Vomiting Rivaroxaban (Rivaroxaban 20 Mg Tablet) 20 mg PO DAILY [facility] Senna (Sennosides 8.6 Mg Tablet) 17.2 mg PO BEDTIME PRN PRN Reason: Constipation Sodium Chloride (0.9 % Sodium Chloride Flush 3 Ml Syringe) 3 ml IVFLUSH QSHIFT [facility] Home Medications Medication Instructions Recorded Confirmed Last Taken Type lovastatin 20 mg tablet 20 mg PO BEDTIME 03/23/20 06/15/23 11/20/20 History ropinirole 0.25 mg tablet 0.25 mg PO BEDTIME 03/23/20 06/15/23 11/20/20 History omeprazole 20 mg capsule,delayed 40 mg PO DAILY 11/21/20 06/15/23 11/20/20 History release acetaminophen 500 mg tablet 1,000 mg PO Q8H PRN Pain 06/15/23 06/15/23 Unknown History food supplemt, lactose-reduced 1 ea PO DAILY 06/15/23 06/15/23 Unknown History latanoprost 0.005 % eye drops 1 drp ophthalmic (eye) BEDTIME 06/15/23 06/15/23 Unknown History lidocaine 5 % topical patch 1 patch topical DAILY PRN Pain 06/15/23 06/15/23 Unknown History ondansetron 4 mg disintegrating 4 mg PO DAILY PRN Nausea And 06/15/23 06/15/23 Unknown History tablet Vomiting oxycodone-acetaminophen 5 mg-325 1 tab PO TID PRN Pain 06/15/23 06/15/23 Unknown History mg tablet (Percocet) sodium chloride 0.65 % nasal spray 1 spray intranasal DAILY 06/15/23 06/15/23 Unknown History aerosol (Saline Nasal) Physical Exam 2 Vital Signs and Narrative: Vital Signs: Last Vital Signs Temp 98.4 F 06/15/23 10:55 Pulse 153 H 06/15/23 11:27 Resp 22 H 06/15/23 11:27 BP 102/60 06/15/23 11:27 Pulse Ox 96 06/15/23 11:27 O2 Del Method Nasal Cannula 06/15/23 11:27 O2 Flow Rate 2 06/15/23 11:27 BMI result Body Mass Index 22.2 Constitutional - Awake and Alert, No apparent distress Eyes - PERRLA, EOMI Cardiovascular - S1S2, RRR, No edema Respiratory - Normal lung expansion, Normal respiratory effort, No respiratory distress, crackles bilateral lower lobes Gastrointestinal - NT / ND; +BS; No rebound or guarding Extremities - no calf tenderness bilaterally, no swelling Skin - Warm/Dry Neurological - Alert & oriented x3 Psychological - Appropriate affect Results Labs 06/15/23 07:44 06/15/23 07:44 Labs: Laboratory Results - last 24 hr 06/15/23 06/15/23 06/15/23 07:44 07:46 07:57 MCV 88.5 MCH 29.5 MCHC 33.3 RDW 12.8 Plt Count 228 MPV 9.6 Immature Gran % (Auto) 0.5 H Neut % (Auto) 71.8 Lymph % (Auto) 12.4 L [place] % (Auto) 7.9 Eos % (Auto) 7.2 H Baso % (Auto) 0.2 Lymph # (Auto) 1.1 L [place] # (Auto) 0.7 Eos # (Auto) 0.6 H Baso # (Auto) 0.0 Abs Immat Gran (auto) 0.04 H Absolute Neuts (auto) 6.4 Absolute Nucleated RBC 0.000 Nucleated RBC % (auto) 0.0 PT 11.7 INR 1.0 VBG pH 7.33 VBG pCO2 58 VBG pO2 39 VBG HCO3 31 H VBG O2 Saturation 55.0 VBG Base Excess 3.9 Anion Gap 13 Estim Creat Clear Calc 67.5 Estimated GFR > 60 Random Glucose 112 Lactic Acid 2.4 H* Lactic Acid F/U @ 2Hr Calcium 10.1 D Total Bilirubin 0.5 AST 17 ALT 17 Alkaline Phosphatase 88 B-Natriuretic Peptide 117 H Total Protein 7.3 Albumin 4.5 COVID-19 (MILIND) COVID-19 Clin Com Influenza Type A (CARISSA) Influenza Type B (CARISSA) Influenza A & B Note 06/15/23 06/15/23 09:07 11:35 MCV MCH MCHC RDW Plt Count MPV Immature Gran % (Auto) Neut % (Auto) Lymph % (Auto) [place] % (Auto) Eos % (Auto) Baso % (Auto) Lymph # (Auto) [place] # (Auto) Eos # (Auto) Baso # (Auto) Abs Immat Gran (auto) Absolute Neuts (auto) Absolute Nucleated RBC Nucleated RBC % (auto) PT INR VBG pH VBG pCO2 VBG pO2 VBG HCO3 VBG O2 Saturation VBG Base Excess Anion Gap Estim Creat Clear Calc Estimated GFR Random Glucose Lactic Acid Lactic Acid F/U @ 2Hr 2.3 H* Calcium Total Bilirubin AST ALT Alkaline Phosphatase B-Natriuretic Peptide Total Protein Albumin COVID-19 (MILIND) Negative COVID-19 Clin Com See Note Influenza Type A (CARISSA) Negative Influenza Type B (CARISSA) Negative Influenza A & B Note See Note Imaging Radiologist's Impressions: Impressions Chest X-Ray 06/15/23 08:23 IMPRESSION: 1. Stable hyperinflation the bilateral lung phillips. 2. Chronic interstitial markings. Assessment and Plan (1) COPD exacerbation: Status: Acute (2) Atrial flutter with rapid ventricular response: Status: Acute Plan 72 year old male with history of chronic low back pain, hld, barretts esophagus, prostate ca s/o xrt, pulmonary nodules who is a former smoker admitted for further management of afib rvr. #New onset Atrial Fibrillation with RVR -HRs 180-200s received 6 mg then 12mg adenosine in ED -Continue cardizem drip per protocol -Load with digoxin 0.25mg now then q6h x2 -echo -[id number] 2. Xarelto 20mg daily per cardiology -cardiology consult. May need cardioversion per dr. ames -cardiac diet -mag WNL, tsh pending -monitor on telemetry #Possible COPD exacerbation -cxr with intersitital lung disease. has mirela improved with albuterol and productive cough -no known hx, but has signficant smoking hx quit 20years ago -resp panel -iv methylprednisolone 40mg bid -hold on further duonebs. xopenex prn -iv doxycycline -symptomatic management #HLD -continue statin #barretts esophagus -ppi #pulmonary nodules -outpt follow up DVT prophylaxis- xarelto full code pt requires inpt stay at least 2 midnights for management of new onset afib rvr on cardizem drip requiring digoxin load, ac initiation, and possible cardioversion pending expert evaluation. Quality Stroke Does the patient have a stroke diagnosis?: No VTE Prior VTE?: No VTE Risk Level:: Medical - moderate - high VTE Device Contraindication: Treatment Not Indicated VTE Drug Contraindication: N/A - Med Ordered
[2023-06-15] MEDS: Digoxin 0.5 MG/2 ML AMPUL 0.25 MG IVPUSH ×2 (12:38→18:29)
--- NOTE | 2023-06-15 12:39 | PC.NURSE ---
medication administered per provider order.
[2023-06-15 12:42] LABS: TSH reflex Free T4 1.13 uIU/mL (0.32-4.0)
[2023-06-15] MEDS: methylPREDNISolone Sod Succ 40 MG/ML VIAL IVPUSH (13:07)
[2023-06-15] MEDS: Lidocaine 4 % Patch ADH..PATCH 1 PATCH TRANSDERMA (13:07)
[2023-06-15] MEDS: oxyCODONE HCl Immed Release 5 MG TABLET PO ×2 (13:08→21:56)
--- NOTE | 2023-06-15 13:11 | PC.NURSE ---
pt c/o increase in back pain. rating level at a 8/10 at this time. prn medication administered per provider order. family bedside. call gastelum placed within reach.
[2023-06-15 13:39] LABS: Reflex Lactate? 2 Y
[2023-06-15 14:27] LABS: ~Lactic Acid-LAB USE ONLY 2.8 mmol/L (0.5-2.0)
[2023-06-15] MEDS: Metoprolol Tartrate 25 MG TABLET PO (21:44)
[2023-06-15] MEDS: Pravastatin Sodium 20 MG TABLET PO (21:44)
[2023-06-15] MEDS: rOPINIRole HCL 0.25 MG TABLET PO (21:44)
[2023-06-15] MEDS: Latanoprost 0.005 % Ophth Sol 2.5 ML DROPS 1 DROP EYE-BOTH (21:45)
[2023-06-15] MEDS: Acetaminophen 325 MG TABLET 650 MG PO (21:57)
[2023-06-15] MEDS: Magnesium Hydrox/Alum Hydrox 30 ML ORAL.SUSP PO (22:02)
[2023-06-16] MEDS: Doxycycline Hyclate 100 MG in 0.9 % Sodium Chloride 250 ML 166.67 MG IV (01:49)
[2023-06-16] MEDS: 0.9 % Sodium Chloride Flush 3 ML SYRINGE IVFLUSH ×3 (01:50→15:37)
[2023-06-16] MEDS: methylPREDNISolone Sod Succ 40 MG/ML VIAL IVPUSH (01:50)
[2023-06-16 03:06] VITALS: BP 133/60; PULSE 51; RESP 20; TEMP 36.1; O2SAT 93
[2023-06-16] MEDS: Omeprazole 40 MG CAPSULE.DR PO (06:42)
[2023-06-16] MEDS: oxyCODONE HCl Immed Release 5 MG TABLET PO ×3 (06:45→22:01)
[2023-06-16] MEDS: Acetaminophen 325 MG TABLET 650 MG PO ×2 (06:45→22:02)
[2023-06-16 07:08] LABS: Basophils Percent Auto 0.1 % (0-2); Hematocrit 39.3 % (42.0-52.0); Hemoglobin 13.1 g/dl (14.0-18.0); Imm Gran Abs Auto 0.12 X10*3/uL (0.00-0.03); Imm Gran Pct Auto 0.7 % (0.0-0.4); Lymphocytes Absolute Auto 0.7 X10*3/uL (1.2-4.9); Lymphocytes Percent Auto 3.8 % (20-40); MANUAL DIFF FLAG SCAN; Mean Corpuscular HGB Conc 33.3 g/dl (31.0-36.0); Mean Corpuscular Hemoglobin 29.4 pg (27.0-33.0); Mean Corpuscular Volume 88.1 fL (80.0-98.0); Mean Platelet Volume 10.1 fL (9.4-12.4); Monocytes Absolute Auto 0.4 X10*3/uL (0.1-1.2); Monocytes Percent Auto 2.3 % (2-11); Neutrophils Absolute Auto 17.1 x10*3/uL (2.0-8.3); Neutrophils Percent Auto 93.1 % (45-73); Platelet Count 252 X10*3/uL (160-400); Red Blood Count 4.46 X10*6/uL (4.60-5.80); Red Cell Distribution Width 13.1 % (11.0-16.0); SCAN SMEAR FLAG 1; White Blood Count 18.4 X10*3/uL (4.8-10.8)
[2023-06-16 07:17] LABS: Anion Gap 14 (12-20); Blood Urea Nitrogen 21 mg/dL (9-16); Calcium 9.8 mg/dL (8.4-10.2); Carbon Dioxide 24 mmol/L (22-29); Chloride 108 mmol/L (96-108); Creatinine Clr Calc Pharmacy 60.4; Estimated Glomerular Filt Rate > 60; Glucose Random 146 mg/dL (60-115); Potassium 4.3 mmol/L (3.3-5.1); Sodium 142 mmol/L (135-145)
[2023-06-16 07:28] VITALS: BP 140/62; PULSE 66; RESP 18; TEMP 36.7; O2SAT 94
[2023-06-16 07:28] LABS: SLIDE REVIEW VERIFIED
--- NOTE | 2023-06-16 08:26 | MHC.CM.PN ---
CM met with Patient and his /HCP at bedside. Patient lives in a house with his and he uses a cane to assist with mobility. Home/self care is the goal and CM has initiated and will follow for dc planning. PCP is Dr. Noel.
--- NOTE | 2023-06-16 08:45 | P.PNIM_ITS ---
Subjective Subjective Date of Service: 06/16/23 Interval History: converted to nsr, feeling back to baseline Physical Exam 2 Vital Signs: Vital Signs: Last Vital Signs Temp 98.1 F 06/16/23 07:28 Pulse 66 06/16/23 07:28 Resp 18 06/16/23 07:28 BP 140/62 H 06/16/23 07:28 Pulse Ox 94 06/16/23 07:28 O2 Del Method Room Air 06/16/23 07:28 O2 Flow Rate 2 06/15/23 11:27 BMI result Body Mass Index 21.8 General: AO X 3, no acute distress Resp: mostly CTA, some basilar crackles, no accessory muscles used CVS: S1,S2,RRR GI: soft, non tender, non distended Neuro: motor grossly intact, alert Psych: appropriate affect, appropriate insight Objective Data Active Medications Acetaminophen (Acetaminophen 325 Mg Tablet) 650 mg PO Q6H PRN PRN Reason: Pain, Mild (Pain Scale 1-3) Last Admin: 06/16/23 06:45 Dose: 650 mg Documented By: SARABJIT Guaifenesin (Guaifenesin 200 Mg/10 Ml 10 Ml Liquid) 10 ml PO Q4H PRN PRN Reason: Cough Latanoprost (Latanoprost 0.005 % Ophth Yuly 2.5 Ml Drops) 1 drop EYE-BOTH BEDTIME [facility] Last Admin: 06/15/23 21:45 Dose: 1 drop Documented By: SARABJIT Levalbuterol HCl (Levalbuterol Hcl 1.25 Mg/3 Ml Vial.Neb) 1.25 mg INHALE Q3H PRN PRN Reason: sob/wheezing Lidocaine (Lidocaine 4 % Patch Adh..Patch) 1 patch TRANSDERMA DAILY PRN PRN Reason: Pain Last Admin: 06/15/23 13:07 Dose: 1 patch Documented By: DARION Metoprolol Tartrate (Metoprolol Tartrate 25 Mg Tablet) 25 mg PO BID [facility]; Protocol Last Admin: 06/15/23 21:44 Dose: 25 mg Documented By: SARABJIT Omeprazole (Omeprazole 40 Mg Capsule.Dr) 40 mg PO DAILY@0630 [facility] Last Admin: 06/16/23 06:42 Dose: 40 mg Documented By: SARABJIT Ondansetron HCl (Ondansetron Hcl 4 Mg/2 Ml Vial) 4 mg IVPUSH Q8H PRN PRN Reason: Nausea and Vomiting Oxycodone HCl (Oxycodone Hcl Immed Release 5 Mg Tablet) 5 mg PO TID PRN PRN Reason: Pain Last Admin: 06/16/23 06:45 Dose: 5 mg Documented By: SARABJIT Pravastatin Sodium (Pravastatin Sodium 20 Mg Tablet) 20 mg PO BEDTIME [facility] Last Admin: 06/15/23 21:44 Dose: 20 mg Documented By: SARABJIT Rivaroxaban (Rivaroxaban 20 Mg Tablet) 20 mg PO DAILY@1730 [facility] Ropinirole HCl (Ropinirole Hcl 0.25 Mg Tablet) 0.25 mg PO BEDTIME [facility] Last Admin: 06/15/23 21:44 Dose: 0.25 mg Documented By: SARABJIT Senna (Sennosides 8.6 Mg Tablet) 17.2 mg PO BEDTIME PRN PRN Reason: Constipation Sodium Chloride (0.9 % Sodium Chloride Flush 3 Ml Syringe) 3 ml IVFLUSH QSHIFT [facility] Last Admin: 06/16/23 01:50 Dose: 3 ml Documented By: SARABJIT Sodium Chloride (Sodium Chloride 0.65 % Nasal 44 Ml Sprbtl) 1 spray NOSTRIL-B DAILY [facility] Labs 06/16/23 06:19 06/16/23 06:19 Labs: Laboratory Results - last 24 hr 06/15/23 06/15/23 06/15/23 07:44 09:07 11:35 MCV MCH MCHC RDW Plt Count MPV Immature Gran % (Auto) Neut % (Auto) Lymph % (Auto) [place] % (Auto) Eos % (Auto) Baso % (Auto) Lymph # (Auto) [place] # (Auto) Eos # (Auto) Baso # (Auto) Abs Immat Gran (auto) Absolute Neuts (auto) Absolute Nucleated RBC Nucleated RBC % (auto) Smear Tech's Comments Anion Gap Estim Creat Clear Calc Estimated GFR Random Glucose Lactic Acid F/U @ 2Hr 2.3 H* Lactic Acid F/U @ 4Hr Calcium Magnesium 2.0 TSH 1.13 COVID-19 (MILIND) Negative COVID-19 Clin Com See Note Influenza Type A (CARISSA) Negative Influenza Type B (CARISSA) Negative Influenza A & B Note See Note 06/15/23 06/16/23 14:08 06:19 MCV 88.1 MCH 29.4 MCHC 33.3 RDW 13.1 Plt Count 252 MPV 10.1 Immature Gran % (Auto) 0.7 H Neut % (Auto) 93.1 H Lymph % (Auto) 3.8 L [place] % (Auto) 2.3 Eos % (Auto) 0.0 Baso % (Auto) 0.1 Lymph # (Auto) 0.7 L [place] # (Auto) 0.4 Eos # (Auto) 0.0 Baso # (Auto) 0.0 Abs Immat Gran (auto) 0.12 H Absolute Neuts (auto) 17.1 H Absolute Nucleated RBC 0.000 Nucleated RBC % (auto) 0.0 Smear Tech's Comments VERIFIED Anion Gap 14 Estim Creat Clear Calc 60.4 Estimated GFR > 60 Random Glucose 146 H Lactic Acid F/U @ 2Hr Lactic Acid F/U @ 4Hr 2.8 H* Calcium 9.8 Magnesium TSH COVID-19 (MILIND) COVID-19 Clin Com Influenza Type A (CARISSA) Influenza Type B (CARISSA) Influenza A & B Note Assessment and Plan (1) Atrial flutter with rapid ventricular response: Status: Acute Plan 72M PMH chronic low back pain, barretss esophoagus, prostate ca, pulm nodules, former smoker presented with sob new onset afib with rvr now in NSR continue metoprolol, xarelto follow up echo, cardio eval hyperinflation on cxr/ smoking history suspect underlying copd does not appear to be in acute exacerbation at this time, will hold off on further steroids, antibiotics and monitor continue duonebs as needed hld statin barretts ppi dvt prophylaxis- xarelto full code reason for continued hospitalization:monitoring for afib control, awaiting echo, cardio eval Quality Stroke Does the patient have a stroke diagnosis?: No VTE Prior VTE?: No VTE Risk Level:: Medical - moderate - high VTE Device Contraindication: Treatment Not Indicated VTE Drug Contraindication: N/A - Med Ordered
[2023-06-16] MEDS: Metoprolol Tartrate 25 MG TABLET PO ×2 (08:56→22:00)
[2023-06-16 10:09] LABS: Adenovirus PCR Not Detected (Not Detect.); Bordetella parapertussis PCR Not Detected (Not Detect.); Bordetella pertussis PCR Not Detected (Not Detect.); Chlamydia pneumoniae PCR Not Detected (Not Detect.); Coronavirus 229E PCR Not Detected (Not Detect.); Coronavirus HKU1 PCR Not Detected (Not Detect.); Coronavirus NL63 PCR Not Detected (Not Detect.); Coronavirus OC43 PCR Not Detected (Not Detect.); Human metapneumovirus PCR Not Detected (Not Detect.); Influenza A PCR Not Detected (Not Detect.); Influenza B PCR Not Detected (Not Detect.); Mycoplasma pneumoniae PCR Not Detected (Not Detect.); Parainfluenza 1 PCR Not Detected (Not Detect.); Parainfluenza 2 PCR Not Detected (Not Detect.); Parainfluenza 3 PCR Not Detected (Not Detect.); Parainfluenza 4 PCR Not Detected (Not Detect.); RSV PCR Not Detected (Not Detect.); Rhino/Enterovirus PCR Not Detected (Not Detect.)
[2023-06-16 10:41] LABS: SARS-CoV-2 PCR Not Detected (Not Detect.)
[2023-06-16 11:21] VITALS: BP 138/62; PULSE 67; RESP 18; TEMP 37.2; O2SAT 97
--- NOTE | 2023-06-16 11:39 | P.CONCA_ITS ---
History of Present Illness History of Present Illness Date of Service: 06/16/23 Requesting physician: Aleksey Coats Consult reason: atrial fibrillation Chief complaint: AFIB RVR Narrative: I was asked to see Clifford in cardiology consultation today for new onset atrial fibrillation rapid ventricular response. He has prior history of chronic back pain and not cardiac therapy, prostate cancer, restless leg syndrome, hyperlipidemia with no prior cardiac history. Stop smoking 25 years ago over the last 3 weeks has been having exertional symptoms which have been progressing. He said 3 4 weeks ago, he is generally very active he started noticing when he would exert himself get pain in the left side of the chest. This then subsided. However he is continued to have progressively increasing shortness of breath. He tried his 's inhaler and said felt better. Then try to manage this at home but continued to deteriorate with symptoms at rest and having shortness of breath when he would lay down. He also had cough productive of phlegm. He eventually decided to come to the emergency room. In the emergency room he was noted to have COPD exacerbation with wheezing and was given treatment with Proventil. Subsequently he developed left arm discomfort into the neck and then subsequently noted that heart rate was significantly elevated. Initially try to be controlled with IV adenosine as it was felt that was SVT, subsequently given labetalol and then Cardizem drip. He was then sudden Cardizem drip due to uncontrolled rate. Also given oral anticoagulation therapy with Xarelto in the ED after discussion with me. Patient since then converted to sinus rhythm overnight. However gives concerning symptoms of orthopnea. He has had no leg edema. He says overall he feels extremely well and back to normal. Review of Systems 2 Constitutional: Constitutional: Reports no additional constitutional complaints Eyes: Eyes: Reports no additional eye complaints Cardiovascular: Cardiovascular: Reports chest pain with activity, Denies syncope, Denies rapid heart rate, Denies leg edema, Denies lightheadedness, Denies palpitations, Reports dyspnea on exertion and Reports orthopnea Respiratory: Respiratory: Reports cough, Reports excessive phlegm production and Reports dyspnea on exertion Gastrointestinal: Gastrointestinal: Reports no additional gastrointestinal complaints Musculoskeletal: Musculoskeletal: Reports no additional musculoskeletal complaints Integumentary/Breasts: Skin/Breast: Reports system reviewed and no additional complaints, except as docu Neurologic: Reports system reviewed and no additional complaints, except as documented and Denies syncope Psychiatric: Psychiatric: Reports no additional psychiatric complaints Endocrine: Endocrine: Denies palpitations PMFSH Past Medical History Medical History Restless leg syndrome Elevated cholesterol Upper GI bleed Barretts esophagus C. difficile colitis Ileus Abdominal pain Diarrhea Nausea & vomiting Lung nodule < 6cm on CT Small bowel obstruction Diaphragm injury Pelvis fracture Liver laceration Sciatica Family History Family History Mother Colon cancer Sister Pancreatic cancer Surgical History Surgical History History of prostate biopsy History of total left knee replacement (TKR) Hx of exploratory laparotomy History of exploratory laparotomy History of esophagogastroduodenoscopy (EGD) Hx of colonoscopy H/O ankle fusion H/O knee surgery Social History Social History Household Members: Spouse Housing: House Are you a primary client care consultant to a significant other at home: No Do you presently have visiting nurse or other home services: No Alcohol intake: current Alcohol intake frequency: a few times a month Alcohol type: beer 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 If so, by whom?: No Do you feel safe in your current relationship?: Yes Is there a partner from a previous relationship who is making you feel unsafe now?: No Are you made to feel afraid or neglected: No Advance Directives: No Advance Directives Information Provided: No Do you have thoughts of harming others: None Recently lost weight without trying: No Eating poorly because of decreased appetite: No Nutrition Risks: No Nutritional Risk service: Yes Current occupational status: disabled Meds Allergies Allergy/AdvReac Type Severity Reaction Status Date / Time Codeine Sulfate AdvReac Unknown vomiting Uncoded 06/15/23 07:23 Active Medications: Current Medications Acetaminophen (Acetaminophen 325 Mg Tablet) 650 mg PO Q6H PRN PRN Reason: Pain, Mild (Pain Scale 1-3) Last Admin: 06/16/23 06:45 Dose: 650 mg Dronedarone (Dronedarone Hcl 400 Mg Tablet) 400 mg PO BID [facility] Guaifenesin (Guaifenesin 200 Mg/10 Ml 10 Ml Liquid) 10 ml PO Q4H PRN PRN Reason: Cough Latanoprost (Latanoprost 0.005 % Ophth Yuly 2.5 Ml Drops) 1 drop EYE-BOTH BEDTIME [facility] Last Admin: 06/15/23 21:45 Dose: 1 drop Levalbuterol HCl (Levalbuterol Hcl 1.25 Mg/3 Ml Vial.Neb) 1.25 mg INHALE Q3H PRN PRN Reason: sob/wheezing Lidocaine (Lidocaine 4 % Patch Adh..Patch) 1 patch TRANSDERMA DAILY PRN PRN Reason: Pain Last Admin: 06/15/23 13:07 Dose: 1 patch Metoprolol Tartrate (Metoprolol Tartrate 25 Mg Tablet) 25 mg PO BID [facility]; Protocol Last Admin: 06/16/23 08:56 Dose: 25 mg Omeprazole (Omeprazole 40 Mg Capsule.Dr) 40 mg PO DAILY@0630 [facility] Last Admin: 06/16/23 06:42 Dose: 40 mg Ondansetron HCl (Ondansetron Hcl 4 Mg/2 Ml Vial) 4 mg IVPUSH Q8H PRN PRN Reason: Nausea and Vomiting Oxycodone HCl (Oxycodone Hcl Immed Release 5 Mg Tablet) 5 mg PO TID PRN PRN Reason: Pain Last Admin: 06/16/23 06:45 Dose: 5 mg Pravastatin Sodium (Pravastatin Sodium 20 Mg Tablet) 20 mg PO BEDTIME [facility] Last Admin: 06/15/23 21:44 Dose: 20 mg Rivaroxaban (Rivaroxaban 20 Mg Tablet) 20 mg PO DAILY@1730 [facility] Ropinirole HCl (Ropinirole Hcl 0.25 Mg Tablet) 0.25 mg PO BEDTIME [facility] Last Admin: 06/15/23 21:44 Dose: 0.25 mg Senna (Sennosides 8.6 Mg Tablet) 17.2 mg PO BEDTIME PRN PRN Reason: Constipation Sodium Chloride (0.9 % Sodium Chloride Flush 3 Ml Syringe) 3 ml IVFLUSH QSHIFT [facility] Last Admin: 06/16/23 08:57 Dose: 3 ml Sodium Chloride (Sodium Chloride 0.65 % Nasal 44 Ml Sprbtl) 1 spray NOSTRIL-B DAILY [facility] Home Medications Medication Instructions Recorded Confirmed Last Taken Type lovastatin 20 mg tablet 20 mg PO BEDTIME 03/23/20 06/15/23 11/20/20 History ropinirole 0.25 mg tablet 0.25 mg PO BEDTIME 03/23/20 06/15/23 11/20/20 History omeprazole 20 mg capsule,delayed 40 mg PO DAILY 11/21/20 06/15/23 11/20/20 History release acetaminophen 500 mg tablet 1,000 mg PO Q8H PRN Pain 06/15/23 06/15/23 Unknown History food supplemt, lactose-reduced 1 ea PO DAILY 06/15/23 06/15/23 Unknown History latanoprost 0.005 % eye drops 1 drp ophthalmic (eye) BEDTIME 06/15/23 06/15/23 Unknown History lidocaine 5 % topical patch 1 patch topical DAILY PRN Pain 06/15/23 06/15/23 Unknown History ondansetron 4 mg disintegrating 4 mg PO DAILY PRN Nausea And 06/15/23 06/15/23 Unknown History tablet Vomiting oxycodone-acetaminophen 5 mg-325 1 tab PO TID PRN Pain 06/15/23 06/15/23 Unknown History mg tablet (Percocet) sodium chloride 0.65 % nasal spray 1 spray intranasal DAILY 06/15/23 06/15/23 Unknown History aerosol (Saline Nasal) Physical Exam 2 Vital Signs: Vital Signs: Last Vital Signs Temp 98.9 F 06/16/23 11:21 Pulse 67 06/16/23 11:21 Resp 18 06/16/23 11:21 BP 138/62 06/16/23 11:21 Pulse Ox 97 06/16/23 11:21 O2 Del Method Room Air 06/16/23 11:21 O2 Flow Rate 2 06/15/23 11:27 BMI result Body Mass Index 21.8 Const: General: cooperative, comfortable, no acute distress, alert, awake and Physically active Nutritional Appearance: thin Orientation/consciousness: patient oriented x3 Limitations: no limitations HEENT: Head: Yes normocephalic and Yes atraumatic Neck: Neck: Yes trachea midline, Yes supple and Yes no JVD Resp: Effort & Inspection: normal respiratory effort Auscultation: crackles (coarse) on the left at the base, wheezes and diminished lung sounds Cardio: Jugular venous distension: no JVD Palpation: normal PMI Rate: r egular rate Rhythm: regular rhythm Heart sounds: S1 normal heart sound present, S2 normal heart sound present, no click, no gallops, no murmurs and no rubs GI: Auscultation: normal bowel sounds Skin: General skin exam: no rashes or lesions noted Neuro: General: patient oriented x3 and no focal motor deficits Extrem: General: Yes no clubbing, cyanosis or edema Objective Labs and Meds 06/16/23 06:19 06/16/23 06:19 Lab results: Laboratory Results - last 24 hr 06/15/23 06/15/23 06/15/23 07:44 11:35 14:08 WBC RBC Hgb Hct MCV MCH MCHC RDW Plt Count MPV Immature Gran % (Auto) Neut % (Auto) Lymph % (Auto) Greer % (Auto) Eos % (Auto) Baso % (Auto) Lymph # (Auto) Greer # (Auto) Eos # (Auto) Baso # (Auto) Abs Immat Gran (auto) Absolute Neuts (auto) Absolute Nucleated RBC Nucleated RBC % (auto) Smear Tech's Comments Sodium Potassium Chloride Carbon Dioxide Anion Gap BUN Creatinine Estim Creat Clear Calc Estimated GFR Random Glucose Lactic Acid F/U @ 2Hr 2.3 H* Lactic Acid F/U @ 4Hr 2.8 H* Calcium Magnesium 2.0 TSH 1.13 Respiratory Panel Wagner Adenovirus (Rapid PCR) B.pert (TEM-PCR) B.parapertussis DNA PCR C. pneumoniae DNA (PCR) Coronavirus OC43 (PCR) Coronavirus HKU1 (PCR) Coronavirus 229E (PCR) Coronavirus NL63 (PCR) Human Metapneumovir PCR Influenza A (RT-PCR) Influenza B (RT-PCR) M. pneumoniae (PCR) Parainfluenza 1 (PCR) Parainfluenza 2 (PCR) Parainfluenza 3 (PCR) Parainfluenza 4 (PCR) RSV (PCR) Entero/Rhino (PCR) SARS-CoV-2 RNA (RT-PCR) 06/15/23 06/16/23 14:35 06:19 WBC 18.4 H RBC 4.46 L Hgb 13.1 L Hct 39.3 L MCV 88.1 MCH 29.4 MCHC 33.3 RDW 13.1 Plt Count 252 MPV 10.1 Immature Gran % (Auto) 0.7 H Neut % (Auto) 93.1 H Lymph % (Auto) 3.8 L Greer % (Auto) 2.3 Eos % (Auto) 0.0 Baso % (Auto) 0.1 Lymph # (Auto) 0.7 L Greer # (Auto) 0.4 Eos # (Auto) 0.0 Baso # (Auto) 0.0 Abs Immat Gran (auto) 0.12 H Absolute Neuts (auto) 17.1 H Absolute Nucleated RBC 0.000 Nucleated RBC % (auto) 0.0 Smear Tech's Comments VERIFIED Sodium 142 Potassium 4.3 Chloride 108 Carbon Dioxide 24 Anion Gap 14 BUN 21 H Creatinine 1.00 Estim Creat Clear Calc 60.4 Estimated GFR > 60 Random Glucose 146 H Lactic Acid F/U @ 2Hr Lactic Acid F/U @ 4Hr Calcium 9.8 Magnesium TSH Respiratory Panel Wagner See Note Adenovirus (Rapid PCR) Not Detected B.pert (TEM-PCR) Not Detected B.parapertussis DNA PCR Not Detected C. pneumoniae DNA (PCR) Not Detected Coronavirus OC43 (PCR) Not Detected Coronavirus HKU1 (PCR) Not Detected Coronavirus 229E (PCR) Not Detected Coronavirus NL63 (PCR) Not Detected Human Metapneumovir PCR Not Detected Influenza A (RT-PCR) Not Detected Influenza B (RT-PCR) Not Detected M. pneumoniae (PCR) Not Detected Parainfluenza 1 (PCR) Not Detected Parainfluenza 2 (PCR) Not Detected Parainfluenza 3 (PCR) Not Detected Parainfluenza 4 (PCR) Not Detected RSV (PCR) Not Detected Entero/Rhino (PCR) Not Detected SARS-CoV-2 RNA (RT-PCR) Not Detected EKG 2. Showed atrial fibrillation rapid ventricular response with nonspecific ST T wave changes. EKG 3. Shows normal sinus rhythm with nonspecific ST T wave changes Assessment and Plan (1) Atrial flutter with rapid ventricular response: Status: Acute Symptomatic atrial fibrillation with rapid ventricular response. Unclear if he had prior atrial fibrillation that were causing his exertional symptoms and/or shortness of breath. Patient has converted to sinus rhythm with rate control. To avoid recurrent hospitalization related to AFib I think he will benefit from therapy with Multaq 400 mg b.i.d.. Given his symptoms of exertional chest pain as well as some symptoms suggestive of orthopnea would get an echocardiogram while inpatient. Echocardiogram to be done tomorrow. Continue Xarelto for oral anticoagulation. CHADSVASc score of 1 for now and if he has significant biatrial enlargement should consider long-term oral anticoagulation. Will need a stress test as outpatient to rule out obstructive coronary artery disease. If by tomorrow echocardiogram shows normal LV ejection fraction without any concerning findings can be discharged home. Procedures Date of Service Date of Service: 06/16/23
[2023-06-16] MEDS: Dronedarone HCl 400 MG TABLET PO ×2 (12:51→22:00)
[2023-06-16 15:32] VITALS: BP 159/67; PULSE 68; RESP 20; TEMP 36.8; O2SAT 95
[2023-06-16] MEDS: Rivaroxaban 20 MG TABLET PO (17:35)
[2023-06-16 19:54] VITALS: BP 103/48; PULSE 70; RESP 20; TEMP 36.6; O2SAT 93
[2023-06-16] MEDS: Pravastatin Sodium 20 MG TABLET PO (22:00)
[2023-06-16] MEDS: rOPINIRole HCL 0.25 MG TABLET PO (22:00)
[2023-06-16] MEDS: Lidocaine 4 % Patch ADH..PATCH 1 PATCH TRANSDERMA (22:00)
[2023-06-16] MEDS: Latanoprost 0.005 % Ophth Sol 2.5 ML DROPS 1 DROP EYE-BOTH (22:19)
[2023-06-16 23:58] VITALS: BP 127/58; PULSE 50; RESP 20; TEMP 36.6; O2SAT 96
[2023-06-17 03:40] VITALS: BP 141/63; PULSE 50; RESP 20; TEMP 36.2; O2SAT 96
[2023-06-17] MEDS: Omeprazole 40 MG CAPSULE.DR PO (06:41)
--- NOTE | 2023-06-17 07:00 | CA_ITS ---
Transthoracic Echocardiogram Patient (Last, First, Middle): Clifford Khan A Gender: Male Date of : 1950 Age: 72 Procedure Date: 06/17/2023 Procedure Type: Transthoracic Echocardiogram Location: [facility] Height: 172.72 cm Weight: 64.86 kg BSA: 1.77 m2 Heart Rate: 60 bpm BP: 141 / 63 mmHg Economic Forecaster: SB Referring MD: Ninoska BUENROSTRO Symptoms: new onset afib Study Quality: Adequate ECG Rhythm: Sinus Conclusions: - The left ventricular systolic function is normal. The calculated ejection fraction is 62% by biplane method. - No obvious valvular pathology seen on this study. Findings Left Ventricle Normal left ventricular cavity size. There is normal left ventricular wall thickness. The left ventricular systolic function is normal. The calculated ejection fraction is 62% by biplane method. There is no evidence of regional wall motion abnormalities. Diastolic function is normal for age. LV peak GLS -17.4%. Right Ventricle Mildly increased right ventricular cavity size. There is normal right ventricular systolic function. Atria The left atrium is normal in size. The right atrium is mildly dilated. Aortic Valve There is a normal trileaflet aortic valve. There is mild calcification of the aortic valve. There is no aortic valve stenosis. There is no aortic valve regurgitation. Mitral Valve The mitral valve appears normal. There is no mitral valve regurgitation. There is no mitral valve stenosis. Pulmonic Valve The pulmonic valve is likely normal. Tricuspid Valve There is mild tricuspid valve regurgitation. Borderline RVSP. Great Vessels The asc aorta is normal in size. Venous The inferior vena cava is mildly dilated and collapses greater than 50% with inspiration. Pericardium/Pleural There is no evidence of pericardial effusion. Prior Study Comparison No prior study available for comparison. Recommendations, Care & Conclusions No obvious valvular pathology seen on this study. Measurements 2D Linear Measurements IVSd: 0.96 0.6-0.9/0.6-1.0 cm LVIDd: 5.39 3.9-5.3/4.2-5.9 cm LVIDd Index: 3.05 2.4-3.2/2.2-3.1 cm/m2 LVIDs: 3.34 2.0-3.6 cm LVPWd: 0.74 0.7-1.1 cm LA Diam: 3.60 2.7-3.8/3.0-4.0 cm LAIDs Index: 2.03 1.5-2.3 cm/m2 LV Mass: 207.80 67-162/88-224 g LV Mass Index: 117.40 43-95/49-115 g/m2 LVOT Diam: 2.10 3.0+(-)1.3 cm 2D Systolic Function EF 4C: 56.90 >55% EF 2C: 66.50 >55% EF BiP: 62.40 >55% Mitral Valve MV Pk E: 0.64 MV PK A: 0.58 MV Decel Time: 155.00 E/A: 1.10 E'Lateral: 9.57 E'Medial: 7.72 E/E' Med: 8.30 E/E' Lat: 6.70 PHT: 45.00 MVA PHT: 4.89 Decel [place]: 4.11 Aortic Valve AoV Pk Luis: 1.33 AoV Pk Grad: 7.00 SANTOS: 3.72 LVOT LVOT Pk Luis: 1.30 LVOT Mn Luis: 0.83 LVOT VTI: 0.28 LVOT Pk Grad: 7.00 LVOT Mn Grad: 3.00 LVOT Diam: 2.10 LVOT Area: 3.46 Diastolic Function MV Pk E: 0.64 MV Pk A: 0.58 E/A: 1.10 E'Medial: 7.72 E/E' Med: 8.30 E' Laterial: 9.57 E/E' Lat: 6.70 Right Ventricle TAPSE (mm): 26.50 TVS' Luis: 18.50 Tricuspid Valve TR Pk Luis: 2.80 TR Pk Grad: 31.00 RA Press: 8.00 RVSP: 39.00 Great Vessels Aorta Sinus of Valsalva: 3.30 2.0-3.5 cm Ao Asc: 3.20 2.1-3.4 cm Pulmonary Valve PV Pk Luis: 1.01 Peak PV Grad: 4.00 Updated in Other Vendor System with Status of Final James Craft MD electronically signed on 06/17/2023 7:14:06 AM with status of Final
[2023-06-17 07:46] VITALS: BP 152/62; PULSE 51; RESP 18; TEMP 36.4; O2SAT 95
[2023-06-17 08:38] LABS: Hematocrit 41.5 % (42.0-52.0); Hemoglobin 13.6 g/dl (14.0-18.0); Mean Corpuscular HGB Conc 32.8 g/dl (31.0-36.0); Mean Corpuscular Hemoglobin 29.1 pg (27.0-33.0); Mean Corpuscular Volume 88.9 fL (80.0-98.0); Mean Platelet Volume 10.1 fL (9.4-12.4); Platelet Count 248 X10*3/uL (160-400); Red Blood Count 4.67 X10*6/uL (4.60-5.80); Red Cell Distribution Width 13.2 % (11.0-16.0); White Blood Count 18.5 X10*3/uL (4.8-10.8)
[2023-06-17 08:54] LABS: Anion Gap 12 (12-20); Blood Urea Nitrogen 28 mg/dL (9-16); Calcium 9.9 mg/dL (8.4-10.2); Carbon Dioxide 28 mmol/L (22-29); Chloride 104 mmol/L (96-108); Estimated Glomerular Filt Rate > 60; Glucose Fasting 85 mg/dL (60-99); Sodium 140 mmol/L (135-145)
[2023-06-17] MEDS: Metoprolol Tartrate 25 MG TABLET PO (09:37)
[2023-06-17] MEDS: Dronedarone HCl 400 MG TABLET PO (09:38)
[2023-06-17] MEDS: 0.9 % Sodium Chloride Flush 3 ML SYRINGE IVFLUSH (09:39)
--- NOTE | 2023-06-17 10:04 | PM.PNCARD ---
Subjective Subjective Date of Service: 06/17/23 Interval history: He states he is feeling better. No new complaints. On telemetry, in sinus rhythm. Review of Systems Review of Systems Yes all other systems are reviewed and are negative Constitutional: Reports as per HPI and Reports no additional constitutional complaints Eyes: Reports as per HPI and Denies no additional eye complaints Denies system reviewed and no additional complaints, except as documented and Reports as per HPI Cardiovascular: Reports as per HPI, Reports no additional cardiovascular complaints, Denies acrocyanosis, Denies cool extremities, Denies chest pain, Denies leg edema, Denies lightheadedness, Denies palpitations and Denies dyspnea Respiratory: Reports as per HPI, Denies no additional respiratory complaints and Denies dyspnea Gastrointestinal: Reports as per HPI and Denies no additional gastrointestinal complaints Genitourinary: Reports no additional male genitourinary complaints and Reports as per HPI Musculoskeletal: Reports no additional musculoskeletal complaints and Reports as per HPI Skin/Breast: Reports system reviewed and no additional complaints, except as docu Reports system reviewed and no additional complaints, except as documented and Reports as per HPI Psychiatric: Reports no additional psychiatric complaints and Reports as per HPI Endocrine: Reports no additional endocrine complaints, Reports as per HPI and Denies palpitations Hematologic/Lymphatic: Reports no additional hematologic/lymphatic complaints and Reports as per HPI Allergic/Immunologic: Reports no additional allergic/immunologic complaints and Reports as per HPI Physical Exam Vital Signs: Last Vital Signs Temp 97.6 F 06/17/23 07:46 Pulse 51 06/17/23 07:46 Resp 18 06/17/23 07:46 BP 152/62 H 06/17/23 07:46 Pulse Ox 95 06/17/23 07:46 O2 Del Method Room Air 06/17/23 07:46 O2 Flow Rate 2 06/15/23 11:27 BMI result Body Mass Index 21.8 Const General: comfortable and no acute distress Orientation/consciousness: patient oriented x3 HEENT Other: Unremarkable Head: Yes normal to inspection Neck Neck: Yes normal visual inspection Chest Chest palpation & inspection: normal inspection of the chest Resp Other: Few crackles. Cardio Palpation: normal PMI Heart sounds: S1 normal heart sound present, S2 normal heart sound present, no gallops, no murmurs and no rubs GI Palpation (GI): Soft to palpation Back/Spine/Pelvis Other: unremarkable Skin General skin exam: no rashes or lesions noted Neuro General: patient oriented x3 Extrem General: Yes normal to inspection Psych Mental Status: mental status grossly normal Objective Labs and Meds 06/17/23 08:16 06/17/23 08:16 Lab results: Laboratory Results - last 24 hr 06/15/23 06/17/23 14:35 08:16 WBC 18.5 H RBC 4.67 Hgb 13.6 L Hct 41.5 L MCV 88.9 MCH 29.1 MCHC 32.8 RDW 13.2 Plt Count 248 MPV 10.1 Absolute Nucleated RBC 0.000 Nucleated RBC % (auto) 0.0 Sodium 140 Potassium 4.0 Chloride 104 Carbon Dioxide 28 Anion Gap 12 BUN 28 H Creatinine 1.06 Estim Creat Clear Calc 57.0 Estimated GFR > 60 Fasting Glucose 85 Calcium 9.9 Respiratory Panel Wagner See Note Adenovirus (Rapid PCR) Not Detected B.pert (TEM-PCR) Not Detected B.parapertussis DNA PCR Not Detected C. pneumoniae DNA (PCR) Not Detected Coronavirus OC43 (PCR) Not Detected Coronavirus HKU1 (PCR) Not Detected Coronavirus 229E (PCR) Not Detected Coronavirus NL63 (PCR) Not Detected Human Metapneumovir PCR Not Detected Influenza A (RT-PCR) Not Detected Influenza B (RT-PCR) Not Detected M. pneumoniae (PCR) Not Detected Parainfluenza 1 (PCR) Not Detected Parainfluenza 2 (PCR) Not Detected Parainfluenza 3 (PCR) Not Detected Parainfluenza 4 (PCR) Not Detected RSV (PCR) Not Detected Entero/Rhino (PCR) Not Detected SARS-CoV-2 RNA (RT-PCR) Not Detected Progress Note: A&P Assessment and plan (1) Atrial fibrillation with rapid ventricular response: Status: Acute (2) COPD exacerbation: Status: Acute Plan In the EKG from 15 of June, he had atrial fibrillation rapid ventricular response. Currently in sinus rhythm. He has been started on Multaq and metoprolol. Also on Xarelto. Echocardiogram with LVEF of 62%. Normal diastolic function and global longitudinal strain also within normal limits. Slightly increased right size. No significant valvular issues. At the current time, continue Multaq and metoprolol without changes. Continue with anticoagulation. Follow-up will be arranged. Time Spent With Patient Time: Total time managing care of this patient today 42 minutes. This includes time spent in review of chart, laboratory data, imaging studies, review of telemetry, counseling patient, discussion with hospitalist, RN, documentation, coordination of care. Progress Note: Quality Stroke Does the patient have a stroke diagnosis?: No Procedures Date of Service Date of Service: 06/17/23
--- NOTE | 2023-06-17 10:29 | P.DS_ITS ---
DS: Providers Provider Date of Service: 06/17/23 Date of admission: 06/15/23 13:22 Primary care physician: Shahnaz Noel MD Consults: 06/15/23 12:06 Consult to Cardiology Routine Consulting Provider: [facility] [place] [facility] Reason for consultation: new onset afib rvr DS: Diagnosis Discharge Diagnosis (1) Atrial fibrillation with rapid ventricular response: Status: Acute (2) COPD exacerbation: Status: Acute DS: Summary Hospital Course Hospital Course: from initial hpi: 72 year old male with history of chronic low back pain, hld, barretts esophagus, prostate ca s/o xrt, pulmonary nodules who is a former smoker presented to the ED earlier today for evaluation of SOB ongoing x several weeks. Describes intermittent periods of both BARR and SOB at rest. Also has orthopnea. [place] with associated sharp chest pains that resolved after several minutes without radiation. No chest pressure. Has no known history of chronic lung disease but is a former smoker who quit about 20 years ago. Reports using his 's albuterol inhaler which did help his SOB. yesterday, developed productive cough w/ yellow/white sputum production. No fevers, chills, sore throat, congestion, abd pain, n/v/d, lightheadedness, palpitations, chest pressure. On arrival, pt slightly tachpneic with diffuse expiratory wheezing, vitals otherwise stable. CXR negative for pneumonia but showed chronic interstitial marking, no leukocytosis. Pt given IV methylprednisolone and duoneb. Developed new onset rapid afib/flutter with HR 180-200s. Given IV adenosine 6mg and 12 mg, 10mg labetolol, 10mg diliazem without much improvement. Starte don cardizem drip per protocol. He is currently asymptomatic with HR 130-170, maxxed on dilt drip. Renal function normal, electrolytes normal. Initial lactic acid 2.4, repeat 2.3. Trop below detectable limits, BNP 117. Negative for COVID19, influenza. TSH pending. VBG reassuring. IN the ED< also given 20mg xarelto per cardiology, doxycycline, 20mg lasix. hospital course: Patient was admitted for new onset atrial fibrillation with rapid ventricular response. He was put on IV diltiazem infusion and given IV digoxin. He converted to normal sinus rhythm. He was seen by Cardiology recommended metoprolol, Multaq, Xarelto. Echo was unremarkable. Patient is feeling back to baseline. Patient noticed to have hyperinflation on chest x-ray and given smoking history and likely underlying mild COPD. For hyperlipidemia was continued on statin. For Monterroso's esophagus continued on PPI. Patient is feeling better will be discharged home. Time Attestation Discharge coordination time: Greater than 30 minutes Quality: Safe Use of Opioids Does Pt have an Active Cancer Diagnosis on the Problem List?: No Quality: Stroke Does the patient have a stroke diagnosis?: No Physical Exam Vital Signs: Vital Signs: Last Vital Signs Temp 97.6 F 06/17/23 07:46 Pulse 51 06/17/23 07:46 Resp 18 06/17/23 07:46 BP 152/62 H 06/17/23 07:46 Pulse Ox 95 06/17/23 07:46 O2 Del Method Room Air 06/17/23 07:46 O2 Flow Rate 2 06/15/23 11:27 BMI result Body Mass Index 21.8 Const: General: comfortable and no acute distress Orientation/co nsciousness: patient oriented x3 HEENT: Other: Unremarkable Head: Yes normal to inspection Neck: Neck: Yes normal visual inspection Chest: Chest palpation & inspection: normal inspection of the chest Resp: Other: Few crackles. Cardio: Palpation: normal PMI Heart sounds: S1 normal heart sound present, S2 normal heart sound present, no gallops, no murmurs and no rubs GI: Palpation (GI): Soft to palpation Back/Spine/Pelvis: Other: unremarkable Skin: General skin exam: no rashes or lesions noted Neuro: General: patient oriented x3 Extrem: General: Yes normal to inspection Psych: Mental Status: mental status grossly normal DS: Data Data Completed and Pending Labs on day of discharge: Laboratory Results - last 24 hr 06/15/23 06/17/23 14:35 08:16 WBC 18.5 H RBC 4.67 Hgb 13.6 L Hct 41.5 L MCV 88.9 MCH 29.1 MCHC 32.8 RDW 13.2 Plt Count 248 MPV 10.1 Absolute Nucleated RBC 0.000 Nucleated RBC % (auto) 0.0 Sodium 140 Potassium 4.0 Chloride 104 Carbon Dioxide 28 Anion Gap 12 BUN 28 H Creatinine 1.06 Estim Creat Clear Calc 57.0 Estimated GFR > 60 Fasting Glucose 85 Calcium 9.9 Respiratory Panel Wagner See Note Adenovirus (Rapid PCR) Not Detected B.pert (TEM-PCR) Not Detected B.parapertussis DNA PCR Not Detected C. pneumoniae DNA (PCR) Not Detected Coronavirus OC43 (PCR) Not Detected Coronavirus HKU1 (PCR) Not Detected Coronavirus 229E (PCR) Not Detected Coronavirus NL63 (PCR) Not Detected Human Metapneumovir PCR Not Detected Influenza A (RT-PCR) Not Detected Influenza B (RT-PCR) Not Detected M. pneumoniae (PCR) Not Detected Parainfluenza 1 (PCR) Not Detected Parainfluenza 2 (PCR) Not Detected Parainfluenza 3 (PCR) Not Detected Parainfluenza 4 (PCR) Not Detected RSV (PCR) Not Detected Entero/Rhino (PCR) Not Detected SARS-CoV-2 RNA (RT-PCR) Not Detected Preliminary micro results at discharge 06/15/23 07:54 Blood Culture - Preliminary Blood - Venous No growth after 48 hours. 06/15/23 07:46 Blood Culture - Preliminary Blood - Venous No growth after 48 hours. Discharge Plan Discharge Anticipated Discharge Date/Time: 06/17/23 10:27 Patient Disposition: Home, Self-Care Discharge Diagnosis: afib Referrals: Shahnaz Noel MD [Primary Care Provider] - 1 Week Discharge Medications: New metoprolol tartrate 25 mg Tablet 25 mg PO BID Qty: 240 0RF Protocol: Hold for SBP/HR < HOLD for SBP < : 90 HOLD for HR < : 60 Multaq 400 mg Tablet 400 mg PO BID Qty: 240 0RF Xarelto 20 mg Tablet 20 mg PO DAILY@1730 Qty: 30 0RF Continued omeprazole 20 mg Capsule,Delayed Release(Dr/Ec) 40 mg PO DAILY ropinirole 0.25 mg Tablet 0.25 mg PO BEDTIME lovastatin 20 mg Tablet 20 mg PO BEDTIME latanoprost 0.005 % Drops 1 drp OPHTHALMIC (EYE) BEDTIME acetaminophen 500 mg tablet 1,000 mg PO Q8H PRN (Reason: Pain) oxycodone-acetaminophen [Percocet] 5-325 mg Tablet 1 tab PO TID PRN (Reason: Pain) lidocaine 5 % Adhesive Patch,Medicated 1 patch TOPICAL DAILY PRN (Reason: Pain) Rx Instructions: leave on most painful area for up to 12 hrs ondansetron 4 mg Tablet,Disintegrating 4 mg PO DAILY PRN (Reason: Nausea And Vomiting) food supplemt, lactose-reduced Liquid 1 ea PO DAILY Saline Nasal 0.65 % Aerosol,Shirley 1 spray INTRANASAL DAILY Discharge Orders: Discharge Order (Routine); Ordered 06/17/23 Ordered By: Aleksey Coats Diet: Advance to usual diet Activity on Discharge: As tolerated Stand Alone Forms: Patient Portal Discharge page Care Plan Goals: manage afib, prevent strokes Health Concerns: afib Plan of Treatment: start xarelto - blood thinner to prevent strokes start multaq and metoprolol - to help control/prevent afib follow up with cardiology Assessment: see above
--- NOTE | 2023-06-17 11:25 | MHC.CM.PN ---
PT MEDICALLY CLEARED FOR DC HOME SELF CARE, PT PRESCRIBED XERELTO AND CM HAS GIVEN PT 30 DAY FREE COUPON CARD/PAMPHLET D/T HIGH COST, PT'S WILL TRANSPORT PT.
== END 2023-06-17 11:50 | disposition home or self-care (01) | DRG 309 ==
LOC: HO.ED 11:29 → HO.EDOVER 13:22 → HO.IMC 15:46
PROVIDERS: Admitting Provider Physician Assistant; Emergency Provider Student in an Organized Health Care Education/Training Program; PCP Internal Medicine; Referring Provider Internal Medicine; Visit Provider Internal Medicine
DX: I48.91 Unspecified atrial fibrillation (principal); J44.1 Chronic obstructive pulmonary disease with (acute) exacerbation; I48.92 Unspecified atrial flutter; E78.5 Hyperlipidemia, unspecified; K22.70 Barrett's esophagus without dysplasia; R91.8 Other nonspecific abnormal finding of lung field; Z20.822 Contact with and (suspected) exposure to COVID-19; Z87.891 Personal history of nicotine dependence; Z79.899 Other long term (current) drug therapy
CPT/HCPCS: 36415; 71046; 80048; 80053; 82803; 83605; 83735; 83880; 84443; 84484; 85025; 85027; 85610; 87040; 87502; 87633; 87635; 93005; 93306; 93356; 94640; 99285; J0153; J1160; J1940; J2920; J2930; Q9957

== ENCOUNTER → 2023-06-15 07:11 | Outpatient (BNV) | payer OTHER, SELFPAY | PROVIDERS: Emergency Provider Student in an Organized Health Care Education/Training Program; PCP Internal Medicine; Visit Provider Internal Medicine Cardiovascular Disease | DX: R94.31 Abnormal electrocardiogram [ECG] [EKG] (principal) | CPT/HCPCS: 93010 ==

== ENCOUNTER 2023-06-15 13:22 | Outpatient (BNV) | payer OTHER, MEDICARE, SELFPAY | END 2023-06-17 07:00 | PROVIDERS: Admitting Provider Physician Assistant; Emergency Provider Student in an Organized Health Care Education/Training Program; PCP Internal Medicine; Visit Provider Internal Medicine | DX: I36.1 Nonrheumatic tricuspid (valve) insufficiency (principal); I35.8 Other nonrheumatic aortic valve disorders | CPT/HCPCS: 93306 ==

== ENCOUNTER → 2023-06-15 13:22 | Outpatient (BNV) | payer OTHER, SELFPAY | PROVIDERS: Admitting Provider Physician Assistant; Emergency Provider Student in an Organized Health Care Education/Training Program; PCP Internal Medicine; Visit Provider Internal Medicine Cardiovascular Disease | DX: I48.91 Unspecified atrial fibrillation (principal); J44.1 Chronic obstructive pulmonary disease with (acute) exacerbation | CPT/HCPCS: 99222; 99233 ==

== ENCOUNTER → 2023-06-15 13:22 | Outpatient (BNV) | payer OTHER, SELFPAY | PROVIDERS: Admitting Provider Physician Assistant; Emergency Provider Student in an Organized Health Care Education/Training Program; PCP Internal Medicine; Visit Provider Physician Assistant | DX: I48.91 Unspecified atrial fibrillation (principal); J44.1 Chronic obstructive pulmonary disease with (acute) exacerbation | CPT/HCPCS: 99223; 99232; 99239 ==

== ENCOUNTER 2023-07-05 08:35 | Outpatient (AMB) | payer OTHER, MEDICARE, SELFPAY ==
[2023-07-05 08:38] VITALS: BP 124/50; PULSE 43; BMI 22.0
--- NOTE | 2023-07-05 08:38 | MHC.OFFVIS ---
Intake Vital Signs 07/05/23 08:38 Height 5 ft 8 in Weight 144 lb 9.972 oz BMI 22.0 BP 124/50 L Blood Pressure Location Lt brachial Position Sitting Pulse 43 L Pulse Source Monitor Intake Visit Reasons: f/up [facility] [place] pt Relationship Manager Required: No Allergies Codeine Sulfate Adverse Reaction (Unknown, Uncoded 07/05/23 08:41) vomiting Medication List - Last Reconciled 07/05/23 by SHAKA Viramontes apixaban (Eliquis) 5 mg PO BID 90 days dronedarone (Multaq) 400 mg PO BID 90 days food supplemt, lactose-reduced 1 ea PO DAILY latanoprost 0.005% 1 drp ophthalmic (eye) BEDTIME lidocaine 5% 1 patch topical DAILY PRN lovastatin 20 mg PO BEDTIME metoprolol tartrate 25 mg See Protocol PO BID 90 days omeprazole 40 mg PO DAILY ondansetron 4 mg PO DAILY PRN oxycodone-acetaminophen 5-325 mg (Percocet) 1 tab PO TID PRN ropinirole 0.25 mg PO BEDTIME sodium chloride 0.65% (Saline Nasal) 1 spray intranasal DAILY HPI f/up [facility] [place] NS pt HPI Details Clifford is a 72-year-old male past medical history of prior smoking, COPD, hyperlipidemia who was recently admitted to [facility] for shortness of breath, COPD exacerbation. He was found to have new atrial fibrillation which was treated with heart rate control and converted to sinus rhythm. He initially was thought to have SVT and was treated with adenosine without affect. He was then put on a diltiazem drip. He was started on anticoagulation. Echocardiogram showed normal EF. Today he reports that he has been doing well since his hospital discharge. Does not have any concerning heart palpitations. He says he did feel his heart going fast when he was in the emergency room. He will get an occasional ache to the left chest region which is random. No chest discomfort brought on by physical activity. He has chronic issues with shortness of breath from his COPD. He sleeps with 1 pillow. No PND, edema. No lightheadedness, presyncope, syncope, falls. No bleeding issues with anticoagulation use. Takes meds as directed. [facility] Medical History Restless leg syndrome Elevated cholesterol Upper GI bleed Barretts esophagus C. difficile colitis Ileus Abdominal pain Diarrhea Nausea & vomiting Lung nodule < 6cm on CT Small bowel obstruction Diaphragm injury Pelvis fracture Liver laceration Sciatica Surgical History History of prostate biopsy History of total left knee replacement (TKR) Hx of exploratory laparotomy History of exploratory laparotomy History of esophagogastroduodenoscopy (EGD) Hx of colonoscopy H/O ankle fusion H/O knee surgery Family History Mother Colon cancer Sister Pancreatic cancer Social History Household Members: Spouse Housing: House Are you a primary child caregiver private home to a significant other at home: No Do you presently have visiting nurse or other home services: No Alcohol intake: current Alcohol intake frequency: a few times a month Alcohol type: beer 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 Tobacco Use Status: Former Tobacco user Quit Date: 1999 Tobacco use type: Cigarette Cigarette Packs Per Day: 1 Second Hand Smoke Exposure: No Substance Use Type: Marijuana service: Yes Current occupational status: disabled Review of Systems Const All systems reviewed & are unremarkable except as noted in HPI and below ENT Denies dizziness Card Denies chest pain, Denies chest pain at rest, Denies chest pain with activity, Denies rapid heart rate, Denies pedal edema, Denies edema, Denies leg edema, Denies lightheadedness, Denies palpitations, Denies dyspnea, Reports dyspnea on exertion and Denies orthopnea Resp Denies cough, Denies dyspnea and Reports dyspnea on exertion GI Denies hematochezia and Denies change in stool character Musc Denies abnormal gait, Denies limited range of motion, Denies muscle cramps, Denies muscle weakness, Denies numbness, Denies radiating pain into limb, Denies stiffness and Denies tingling Neuro Denies abnormal gait, Denies dizziness, Denies numbness and Denies tingling Endo Denies palpitations Physical Exam Vital Signs: Last Vital Signs Pulse 43 L 07/05/23 08:38 BP 124/50 L 07/05/23 08:38 BMI result Body Mass Index 22.0 Const General: cooperative, healthy appearing, comfortable and no acute distress Orientation/consciousness: patient oriented x3 Neck Neck: Yes normal visual inspection Resp Effort & Inspection: normal respiratory effort Auscultation: clear to auscultation bilaterally, no crackles, no rales, no rhonchi and no wheezes Cardio Jugular venous distension: no JVD Rate: regular rate Rhythm: regular rhythm Heart sounds: S1 normal heart sound present, S2 normal heart sound present, no murmurs and no rubs Neuro General: patient oriented x3 Extrem General: Yes normal to inspection and No no pedal edema Psych Appearance: grossly normal Mental Status: mental status grossly normal Speech and movement: Normal speech and movement present Office Procedures EKG Details: Today, read by me, marked sinus bradycardia, no acute ST or T-wave abnormalities, rate 43, QTC 380 millisecond [id number], Complete Assessment & Plan Assessment & Plan (1) Paroxysmal atrial fibrillation: Code(s): I48.0 - Paroxysmal atrial fibrillation Plan: Newer finding of atrial fibrillation while in the emergency room with COPD exacerbation. Initially thought to have SVT and treated with adenosine without affect. He was then put on diltiazem and did convert back to normal sinus rhythm. He has not had known recurrent atrial fibrillation. Echocardiogram showed EF 62%, no valve abnormalities, right atrium mildly dilated. He was discharged with Multaq and metoprolol. He is on Eliquis for anticoagulation. No bleeding issues reported. EKG done today shows marked sinus bradycardia, rate 53, QTC 390 milliseconds. He denies issues with fatigue or lightheadedness. He is currently on metoprolol tartrate 25 mg b.i.d.. Will reduce his dose by half, down to 12.5 mg b.i.d.. Continue Multaq and Eliquis. Will check Holter monitor to assess average heart rate and for recurrent atrial fibrillation. Will check a stress test to evaluate for ischemia. If he has shortness of breath that day or unable to get heart rate up with exercise then may need to change to pharmacological nuclear stress test. Cardiology follow-up in 6-8 weeks, sooner if needed. (2) Chest discomfort: Code(s): R07.89 - Other chest pain Plan: Intermittent left-sided chest aching. Nonexertional. Cardiac risks of age, remote smoking, hyperlipidemia. With new onset paroxysmal AFib and vague chest discomfort will check a nuclear stress test as above. (3) COPD exacerbation: Code(s): J44.1 - Chronic obstructive pulmonary disease with (acute) exacerbation Plan: Stable at present (4) Hospital discharge follow-up: Code(s): Z09 - Encounter for follow-up examination after completed treatment for conditions other than malignant neoplasm Plan: As above (5) Anticoagulated: Code(s): Z79.01 - technician terminal and repeater (current) use of anticoagulants Plan: On Eliquis for anticoagulation. No bleeding issues reported (6) Sinus bradycardia: Code(s): R00.1 - Bradycardia, unspecified Plan: Sinus bradycardia noted on EKG today. Reducing metoprolol. It continues to have low heart rate will plan to stop metoprolol altogether Plan Time spent on chart review, documentation, interview, assessment Orders: Orders NM cardiolite stress test Today I48.0 - Paroxysmal atrial fibrillation, R07.89 - Other chest pain CA stress test Today I48.0 - Paroxysmal atrial fibrillation, R07.89 - Other chest pain ECG 3 day holter monitor Today I48.0 - Paroxysmal atrial fibrillation Medications: Changed From metoprolol tartrate 25 mg See Protocol PO BID 90 days 180 tabs 0RF To metoprolol tartrate 12.5 mg See Protocol PO BID 90 days 90 tabs 3RF Coding Level of Care Code Est Pt Level 4 (86953) Diagnoses Paroxysmal atrial fibrillation I48.0 Chest discomfort R07.89 COPD exacerbation J44.1 Hospital discharge follow-up Z09 Anticoagulated Z79.01 Sinus bradycardia R00.1 CPT Codes EKG - CPT: [id number], Complete ([id number]) Time Spent (min) 30
== END 2023-07-05 09:18 | disposition home or self-care (01) ==
PROVIDERS: PCP Internal Medicine; Visit Provider Nurse Practitioner Family
DX: I48.0 Paroxysmal atrial fibrillation (principal); R07.89 Other chest pain; J44.1 Chronic obstructive pulmonary disease with (acute) exacerbation; Z09 Encounter for follow-up examination after completed treatment for conditions other than malignant neoplasm; Z79.01 Long term (current) use of anticoagulants; R00.1 Bradycardia, unspecified
CPT/HCPCS: 93010; 99214

== ENCOUNTER → 2023-07-05 08:35 | Outpatient (BNVA) | payer OTHER, MEDICARE, SELFPAY | PROVIDERS: PCP Internal Medicine; Visit Provider Nurse Practitioner Family | DX: Z09 Encounter for follow-up examination after completed treatment for conditions other than malignant neoplasm (principal); I48.0 Paroxysmal atrial fibrillation; R07.89 Other chest pain; R00.1 Bradycardia, unspecified; J44.1 Chronic obstructive pulmonary disease with (acute) exacerbation; Z79.01 Long term (current) use of anticoagulants | CPT/HCPCS: 93005; 99212 ==

== ENCOUNTER → 2023-08-13 07:57 | Outpatient (REF) | payer OTHER, SELFPAY ==
--- NOTE | ~2023-08-13 | NM_ITS ---
Exercise Myocardial perfusion study Indication: Paroxysmal atrial fibrillation to evaluate for myocardial ischemia Technique: The patient was brought in for an exercise perfusion study on 08/13/2023. Patient performed exercise as per Bhanu protocol and was injected 25 mCi of sestamibi was given intravenously one target HR was achieved. Images were obtained using the SPECT gamma camera interlaced with the gating device. Images were obtained in supine position. Resting perfusion study was performed on 08/19/2023. Patient was administered 25 mCi of sestamibi intravenously at rest. Images were then obtained in supine position. Images obtained with and without CT attenuation. Total DLP 79 mGy-cm. Images were processed with the software and compared side to side in short axis, horizontal long axis and vertical long axis views. Findings: Both Stress and rest perfusion study were suboptimal due to intense subdiaphragmatic uptake in the liver as well as the stomach interfering with inferior wall uptake The stress perfusion study showed non attenuated images show minimal thinning of the inferoapical wall as well as mildly reduced uptake in the inferoseptal of the LV myocardium otherwise normal myocardial uptake and other segments attenuation corrected images are suboptimal with diffuse knee reduced uptake in multiple segments.. The gated study shows normal LV systolic function with visually estimated LVEF of greater than 50%. LV cavity is normal in size. The gated study shows normal systolic wall thickening and contraction of all segments. There is no transient ischemic dilation. Resting study shows non attenuated images show no significant change in perfusion pattern compared to stress perfusion study. Gating at rest reveals normal systolic wall motion with ejection fraction at greater than 50%. The findings are consistent with no clear major reversible defect suggestive of ischemia although this test is suboptimal due to intense subdiaphragmatic uptake interfering with myocardial uptake. NM/NM cardiolite stress test Impression: 1. No clear significant ischemia although suboptimal study 2. Gated LVEF is greater than 50% 3. Transient ischemic dilatation not present Stress EKG is positive for ischemia
--- NOTE | 2023-08-13 08:05 | HM_ITS ---
Conclusion: 1. Patient was monitored for total period of 2 days and 18 hours 2. Baseline was normal sinus rhythm with average heart rate of 56 beats per minute 3. Frequent sinus bradycardia noted with 76.5% of time heart rate below 60 beats per minute without any significant pauses 4. Occasional PACs noted with brief runs of SVTs with no sustained runs of atrial fibrillation 5. No patient reported events MTDD
--- NOTE | 2023-08-13 08:05 | CA_ITS ---
Acquisition Time: 2023-08-13 08:03:50 Total Exercise Time: 00:05:15 Test Indications: AFIB Medications: Protocol: ANAYELI Max HR: 113 BPM 76% of Pred: 147 BPM Max BP: 180/064 mmHG Max Work Load: 7.0 METS Exercise stress test with exercise 5 min 15 sec of Anayeli protocol, achieving 77% MPHR, 7 METs, with moderate shortness of breath, no chest discomfort, with isolated PACs, with normotensive response to exercise, with EKG changes meeting criteria for ischemia: horizontal to upsloping ST depression inferolateral leads which becomes downsloping ST segements in those leads. In recovery his breathing normalized. Nuclear images pending. Test reviewed with Dr Segura. Referred By: Shyla Khan Overread By: SHYLA KHNA
== END ==
LOC: HO.CARD 07:57
PROVIDERS: PCP Internal Medicine; Visit Provider Nurse Practitioner Family
DX: R07.89 Other chest pain (principal); I48.0 Paroxysmal atrial fibrillation
CPT/HCPCS: 78452; 93017; 93242; A9500; J0280; J2785

== ENCOUNTER → 2023-08-13 08:05 | Outpatient (BNV) | payer OTHER, MEDICARE, SELFPAY | PROVIDERS: PCP Internal Medicine; Visit Provider Nurse Practitioner Family | DX: I48.0 Paroxysmal atrial fibrillation (principal); R00.1 Bradycardia, unspecified | CPT/HCPCS: 78452; 93016; 93018; 93244 ==

== ENCOUNTER 2023-10-29 09:01 | Outpatient (AMB) | payer OTHER, SELFPAY ==
[2023-10-29 09:14] VITALS: BP 128/74; PULSE 40; BMI 21.1
--- NOTE | 2023-10-29 09:14 | MHC.OFFVIS ---
Vital Signs 10/29/23 09:14 Height 5 ft 8 in Weight 138 lb 14.259 oz BMI 21.1 BP 128/74 Blood Pressure Location Lt brachial Position Sitting Pulse 40 L Intake Visit Reasons: 8 wk f/up stress and holter (rs) Intake Note: 8 week follow-up after stress test and holter with ekg c/o sob with excertion Hospice Aide Required: No Border Police: Border Police Present Accompanied by: Spouse Allergies Codeine Sulfate Adverse Reaction (Unknown, Uncoded 07/05/23 08:41) vomiting Medication List - Last Reconciled 10/29/23 by Franky Segura MD apixaban (Eliquis) 5 mg PO BID 90 days dronedarone (Multaq) 400 mg PO BID 90 days food supplemt, lactose-reduced 1 ea PO DAILY latanoprost 0.005% 1 drp ophthalmic (eye) BEDTIME lidocaine 5% 1 patch topical DAILY PRN lovastatin 20 mg PO BEDTIME metoprolol tartrate 12.5 mg See Protocol PO BID 90 days omeprazole 40 mg PO DAILY ondansetron 4 mg PO DAILY PRN oxycodone-acetaminophen 5-325 mg (Percocet) 1 tab PO TID PRN ropinirole 0.25 mg PO BEDTIME sodium chloride 0.65% (Saline Nasal) 1 spray intranasal DAILY HPI Comments Details: Clifford comes for follow-up. He complains of slow heart rate but denies any symptoms of lightheadedness, syncope. He says he gets short of breath when he walks his dog but has no orthopnea, PND, leg edema. Was diagnose with COPD exacerbation June but no follow-up pulmonary function test has been performed. Denies any prolonged palpitation irregular heartbeat. No bleeding issues or neurologic events. Recent myocardial perfusion imaging was within normal limits and Holter monitor showed frequent sinus bradycardia. He has no episodes of atrial flutter/fibrillation. Denies any exertional chest pain. [facility] Medical History (Updated 10/29/23 @ 09:43 by Franky Segura MD) Paroxysmal atrial flutter Atrial flutter with rapid ventricular response Restless leg syndrome Elevated cholesterol Upper GI bleed Barretts esophagus C. difficile colitis Ileus Abdominal pain Diarrhea Nausea & vomiting Lung nodule < 6cm on CT Small bowel obstruction Diaphragm injury Pelvis fracture Liver laceration Sciatica Surgical History History of prostate biopsy History of total left knee replacement (TKR) Hx of exploratory laparotomy History of exploratory laparotomy History of esophagogastroduodenoscopy (EGD) Hx of colonoscopy H/O ankle fusion H/O knee surgery Family History Mother Colon cancer Sister Pancreatic cancer Social History Household Members: Spouse Housing: House Are you a primary manager medicare marketing to a significant other at home: No Do you presently have visiting nurse or other home services: No Alcohol intake: current Alcohol intake frequency: a few times a month Alcohol type: beer 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 Tobacco Use Status: Former Tobacco user Tobacco use type: Cigarette Cigarette Packs Per Day: 1 Second Hand Smoke Exposure: No Substance Use Type: Marijuana service: Yes Current occupational status: disabled Review of Systems Const Denies chills, Denies fatigue, Denies fever(s), Denies frequent falls, Denies weakness, Denies weight gain and Denies weight loss ENT Denies dizziness Card Denies chest pain, Denies leg edema, Denies lightheadedness, Denies palpitations, Denies dyspnea, Denies dyspnea on exertion, Denies orthopnea and Denies other (loss of consciousness) Resp Denies cough, Denies dyspnea and Denies dyspnea on exertion GI Denies hematochezia and Denies change in stool character Musc Denies abnormal gait, Denies muscle weakness, Denies numbness, Denies radiating pain into limb and Denies tingling Neuro Denies abnormal gait, Denies dizziness, Denies frequent falls, Denies numbness, Denies tingling and Denies weakness Endo Denies fatigue and Denies palpitations Physical Exam Vital Signs: Last Vital Signs Pulse 40 L 10/29/23 09:14 BP 128/74 10/29/23 09:14 BMI result Body Mass Index 21.1 Const General: cooperative, healthy appearing, comfortable and no acute distress Orientation/consciousness: patient oriented x3 Neck Neck: Yes normal visual inspection Resp Effort & Inspection: normal respiratory effort Auscultation: clear to auscultation bilaterally, no crackles, no rales, no rhonchi, no wheezes and diminished lung sounds Cardio Jugular venous distension: no JVD Rate: regular rate Rhythm: regular rhythm Heart sounds: S1 normal heart sound present, S2 normal heart sound present, no murmurs and no rubs Neuro General: patient oriented x3 Extrem General: Yes normal to inspection and No no pedal edema Psych Appearance: grossly normal Mental Status: mental status grossly normal Speech and movement: Normal speech and movement present Office Procedures EKG Details: EKG shows marked sinus bradycardia 40 beats per minute [place] [id number], Complete Assessment & Plan Assessment & Plan (1) Sinus bradycardia: Code(s): R00.1 - Bradycardia, unspecified Category: Medical Plan: Sinus bradycardia suggestive sinoatrial ryan dysfunction exacerbated by medical therapy although also patient good functional status. Will discontinue metoprolol therapy at this point time. Continue Multaq therapy. I do not think patient needs a pacemaker therapy at this point time. If he develops any other symptoms of lightheadedness or syncope advised to call my office. (2) Paroxysmal atrial flutter: Code(s): I48.92 - Unspecified atrial flutter Category: Medical Plan: Paroxysmal atrial flutter currently well controlled with Multaq therapy. Continue the same. Avoidance of stimulants was discussed. Will require EKGs every 3 months. Continue full oral anticoagulation, currently on Eliquis 5 mg b.i.d.. (3) SOB (shortness of breath) on exertion: Code(s): R06.02 - Shortness of breath Plan: Shortness of breath exertion, underlying pulmonary parenchymal disease can not be ruled out. Suggest PFTs. Further follow-up based on the PFT findings. Also could be related to chronotropic incompetence. Will discontinue metoprolol therapy as above. Will follow up in the clinic every 3 months for EKG in 1 year with me. Orders: Orders PFT pulmonary function test Today Medications: Discontinued metoprolol tartrate Discontinued Reason: Doctor's Order 12.5 mg See Protocol PO BID 90 days 90 tabs 3RF Coding Level of Care Code Est Pt Level 4 (77162) Diagnoses Sinus bradycardia R00.1 Paroxysmal atrial flutter I48.92 SOB (shortness of breath) on exertion R06.02 CPT Codes EKG - CPT: 91065-[id number], Complete ([id number])
== END 2023-10-29 09:42 | disposition home or self-care (01) ==
PROVIDERS: PCP Internal Medicine; Referring Provider Internal Medicine; Visit Provider Internal Medicine Cardiovascular Disease
DX: R00.1 Bradycardia, unspecified (principal); I48.92 Unspecified atrial flutter; R06.02 Shortness of breath
CPT/HCPCS: 93010; 99214

== ENCOUNTER → 2023-10-29 09:01 | Outpatient (BNVA) | payer OTHER, SELFPAY | PROVIDERS: PCP Internal Medicine; Visit Provider Internal Medicine Cardiovascular Disease | DX: R00.1 Bradycardia, unspecified (principal); I48.92 Unspecified atrial flutter; R06.02 Shortness of breath; Z79.01 Long term (current) use of anticoagulants | CPT/HCPCS: 93005; 99212 ==

== ENCOUNTER → 2024-01-28 08:35 | Outpatient (BNVA) | payer OTHER, SELFPAY | PROVIDERS: PCP Internal Medicine; Visit Provider Internal Medicine Cardiovascular Disease ==

== ENCOUNTER 2024-03-31 15:53 | Inpatient (IN) | payer OTHER, SELFPAY ==
--- NOTE | ~2024-03-31 | CT_ITS ---
EXAMINATION: CT ABDOMEN AND PELVIS WITH CONTRAST CLINICAL INFORMATION: Testicular/pelvic pain COMPARISON: CT dated March 31, 2024 TECHNIQUE: Multidetector volumetric images were obtained from the superior aspect of the liver through the pubic symphysis following administration 85 mL of Omnipaque 350 intravenous contrast without reported immediate complication. Sagittal and coronal reformatted images were obtained on the technologist's workstation. Oral contrast: No This CT examination was performed using dose optimization techniques as appropriate, variously including the following: *Automated exposure control *Adjustment of mA and/or kV according to patient size (this includes techniques or standardized protocols for targeted exams where dose is matched to indication/reason for exam; i.e. extremities or head) *Use of iterative reconstruction technique DLP: 732 mGy-cm FINDINGS: Subcutaneous emphysema and diffuse edema pattern within the posterior scrotum /anterior perineal region into the inguinal soft tissues bilaterally. There is no extension into the peritoneal pelvic cavity. The scrotal sac demonstrates no gross fluid collection. The testicles demonstrated normal enhancement. LIVER, GALLBLADDER, AND BILIARY TREE: Liver measures 15 cm. No focal mass. Portal vein and hepatic veins are patent. Intrahepatic portion of the IVC is patent. No intrahepatic biliary ductal dilatation. Layering hyperdensity within the dependent portion of the gallbladder. No pericholecystic fluid collection or gallbladder wall thickening. Common bile duct measures 4 mm. PANCREAS: No focal pancreatic mass or peripancreatic fluid collection. No main pancreatic ductal dilatation. Reduced volume of the pancreatic parenchyma. SPLEEN: 10 cm. No focal mass. ADRENAL GLANDS: No nodular lesions. KIDNEYS AND URETERS: Normal enhancement pattern throughout the renal parenchyma. Small cystic lesions throughout the renal cortex and corticomedullary junction in both kidneys. No gross renal mass. No hydronephrosis. BLADDER: Hyperdensity within the dependent portion of the posterior bladder. There is gas in the anterior aspect of the lumen. GASTROINTESTINAL TRACT: Numerous diverticula throughout the left hemicolon. Abundant stool. Residual contrast within a nondilated large intestine. Gas and fluid-filled mildly prominent distal small bowel loops. No intestinal obstruction pattern. No pneumoperitoneum. No ascites. No peripheral enhancing fluid collection in the peritoneal cavity. No pneumatosis intestinalis. Appendix is normal. ABDOMINAL WALL: Small fat-containing periumbilical hernia. LYMPH NODES: No gross lymphadenopathy, retroperitoneal or mesentery.. VASCULAR: Irregular shaped mixed plaques throughout the abdominal aorta wall and iliac arteries the origin of the mesenteric arteries and the main renal arteries. No aneurysm or dissection in the abdominal aorta. PELVIC VISCERA: Posttreatment changes in the prostate region OSSEOUS STRUCTURES: S-shaped curvature of the thoracolumbar spine with a dextroconvex rotoscoliosis apex at L2 and a levoconvex curvature at T11-T12. Focal 1 cm blastic lesion posterior right iliac bone. Osteopenia versus osteoporosis. No acute fracture in the axial skeleton. Old traumatic deformity superior inferior right pubic rami. Coxofemoral joints are intact with normal alignment. Linear attenuation abnormalities in the lung bases. 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 Discussed with the nurse, ( Jaki), taking care of the patient at 7:25 AM on 04/02/2024 Fleischner guidelines were followed. Electronically signed by: William Hanson MD 04/02/2024 07:46 AM [facility]
--- NOTE | ~2024-03-31 | CT_ITS ---
EXAMINATION: CT ABDOMEN AND PELVIS WITH CONTRAST CLINICAL INFORMATION: Bloody urine COMPARISON: CT chest November 11, 2020, CT abdomen/pelvis November 21, 2020 TECHNIQUE: Multiple axial images were obtained from the superior aspect of the liver through the pubic symphysis after the administration of 85 mL of intravenous Omnipaque. Images were evaluated on independent dedicated 3-D workstation and 3-D images were reconstructed with concurrent radiologist supervision and subsequently interpreted. Oral contrast was not administered. This CT examination was performed using dose optimization techniques as appropriate, variously including the following: *Automated exposure control *Adjustment of mA and/or kV according to patient size (this includes techniques or standardized protocols for targeted exams where dose is matched to indication/reason for exam; i.e. extremities or head) *Use of iterative reconstruction technique DLP: 352 mGy-Cm FINDINGS: LUNG BASES: 1.2 cm pleural solid nodule, unchanged since 2020. Atelectatic changes at the bases. CARDIOMEDIASTINUM: The visualized heart is normal in size without pericardial effusion. No coronary artery calcification. LIVER: Homogeneous in attenuation. Normal in size. GALLBLADDER: Noninflamed. BILIARY SYSTEM: No intrahepatic or extrahepatic biliary dilation. PANCREAS: Homogeneous in attenuation. SPLEEN: Normal in size. GENITOURINARY: Bilateral kidneys demonstrate symmetric enhancement. Centimeter bilateral cortical renal cysts; no follow-up needed. No perinephric fluid collection. No renal calculi. Mild bilateral hydroureter. Urinary bladder wall thickening. Questionable subcentimeter hypodense mass at the left ureteral orifice. ADRENAL GLANDS: Unremarkable. REPRODUCTIVE: Prostate with brachytherapy seeds. GASTROINTESTINAL: The visualized alimentary tract is normal in course. Severe sigmoid diverticular disease. No diverticulitis. No evidence of obstruction. APPENDIX: The appendix is not visualized; however, no pericecal inflammatory changes are seen in the right lower quadrant. PERITONEUM: No pneumoperitoneum. No intra-abdominal fluid collection. VASCULATURE: The abdominal aorta is normal in course and caliber. Moderate aortic and bilateral iliac atherosclerotic disease. LYMPH NODES: No pathologically enlarged abdominal or pelvic lymph nodes. SOFT TISSUES/MUSCULOSKELETAL: Chronic right initial tuberosity fracture. Rounded sclerotic focus within the right iliac bone measuring 1.1 cm, stable since 2020 and likely represents a bone infarct versus bone island. Severe multilevel degenerative changes. CT/CT abdomen pelvis w IV con IMPRESSION: 1. No acute abdominal or pelvic pathology. 2. Circumferential bladder wall thickening may be related to underdistention or prior radiation treatment. 3. Mild bilateral hydroureter. No obstructing renal or ureteral calculus. 4. Suspected enhancing mass at the left ureteral orifice measuring 6 mm. Recommend urology consult and further evaluation with direct cystoscopy. Fleischner guidelines were followed. Electronically signed by: Nabil Reina DO 03/31/2024 09:28 PM [facility]
--- NOTE | ~2024-03-31 | CT_ITS ---
EXAMINATION: CT ANGIOGRAM HEAD CT ANGIOGRAM NECK CLINICAL INFORMATION: Ongoing severe neck pain. COMPARISON: Cervical spine MRI from 07/05/2022. TECHNIQUE: Initial noncontrast hatchery supervisor imaging of the head and neck was performed. Noncontrast head CT was also performed. Test bolus sequences followed by intravenous administration 80 mL of Omnipaque 350. Helical imaging was performed in the axial plane from the aortic arch to the skull vertex. Delayed postcontrast imaging of the head was also performed. The data was processed at the echo vascular technologist's workstation for generation of MIP sequences. Angled MIPs and volume rendered reformatted images were also generated at an offline 3D workstation. Stenoses are assessed in accordance with NASCET criteria unless otherwise indicated. This CT examination was performed using dose optimization techniques as appropriate, variously including the following: *Automated exposure control. *Adjustment of mA and/or kV according to patient size (this includes techniques or standardized protocols for targeted exams where dose is matched to indication/reason for exam; i.e. extremities or head). *Use of iterative reconstruction technique. DLP: 2446 mGy-cm FINDINGS: CT Head: There is no evidence of acute intracranial hemorrhage or edematous territorial infarction. Campbell-white matter differentiation is preserved. A few foci of hypoattenuation in the periventricular and deep white matter are consistent with mild microangiopathy. The ventricles are normal in morphology and size. No evidence for obstructive hydrocephalus. No abnormal mass effect or midline shift. No extra-axial fluid collections. No pathologic intra-axial enhancement or regional oligemia. No acute soft tissue or osseous abnormalities. Complete opacification of the left maxillary sinus with hyperostotic changes of the valdes. Hyperattenuating material centrally within the left maxillary sinus. Mild mucosal thickening of the remaining paranasal sinuses. The mastoid air cells and middle ear cavities are clear. Bilateral lens extractions. CT Neck: The thyroid gland and remaining cervical soft tissues are within normal limits. Straightening of the normal cervical lordosis. Moderate degenerative arthropathy of the atlantodental articulation. Ankylosis of the left C2-C3 facets. Mild degenerative interfaces of C4 on C5. Moderate degenerative retrolisthesis of C5 on C6. Moderate degenerative anterolisthesis of C7 on T1. Advanced degenerative disc disease from C3-C7. Disc-osteophyte complex formation from C5-C7 appears to cause at least moderate spinal canal stenoses at these levels. Facet and uncovertebral joint arthropathy leads to osseous encroachment on the neural foramina from C3-T1. CT Upper Chest: Mild centrilobular emphysema. The visualized lung apices and upper mediastinum are within normal limits. Neck CTA: Aortic Arch: Normal contour and caliber with mild calcific atherosclerotic disease. Classic 3 vessel branching pattern of the aortic arch. Great Vessel Origins: No significant stenosis of the branch origins. Right Common Carotid Artery: No focal stenosis or occlusion. Cervical Right Internal Carotid Artery: Mixed fibrofatty and calcific atherosclerotic disease of the carotid bulb and proximal internal carotid artery causing 85% stenosis. Left Common Carotid Artery: No focal stenosis or occlusion. Cervical Left Internal Carotid Artery: Mixed fibrofatty and calcific atherosclerotic disease of the carotid bulb and proximal internal carotid artery causing less than 50% stenosis. Cervical Right Vertebral Artery: Dominant. No focal stenosis or occlusion. Cervical Left Vertebral Artery: No focal stenosis or occlusion. Brain CTA: Intracranial Internal Carotid Arteries: Calcific atherosclerotic disease of the intracranial internal carotid arteries without occlusion or flow-limiting stenosis. Right Anterior Cerebral Artery: Normal A1 segment. Normal opacification of the distal DENG segments. Left Anterior Cerebral Artery: Normal A1 segment. Normal opacification of the distal DENG segments. Anterior Communicating Artery: Normal. Right Middle Cerebral Artery: Normal M1 segment of the MCA without focal stenosis or occlusion. Normal arborization of the distal segments. Left Middle Cerebral Artery: Normal M1 segment of the MCA without focal stenosis or occlusion. Normal arborization of the distal segments. Right Vertebral Artery: Normal V4 segment. Normal opacification of the proximal segments of the posterior inferior cerebellar artery. Left Vertebral Artery: Normal V4 segment. Normal opacification of the proximal segments of the posterior inferior cerebellar artery. Basilar Artery: Normal without focal stenosis or occlusion. Normal appearance of the proximal superior cerebellar arteries. Right Posterior Cerebral Artery: Normal P1 segment. Normal opacification of the distal B[place]QU[place] LEAD segments. Left Posterior Cerebral Artery: Normal P1 segment. Normal opacification of the distal B[place] LEAD segments. Normal opacification of the superior sagittal, straight, transverse, and sigmoid sinuses. CT/CT angio head neck IMPRESSION: 1. No evidence of acute intracranial hemorrhage or edematous territorial infarction. Mild underlying microangiopathy. 2. CTA of the head and neck without proximal occlusion. 3. 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 4. Advanced multilevel degenerative spondyloarthropathy of the cervical spine. Most notably on this limited exam without intrathecal contrast, there appears to be at least moderate spinal canal stenoses from C5-C7. Osseous encroachment on the neural foramina from C3-T1. 5. Prominent chronic left maxillary sinusitis. Electronically signed by: Lucas Silva DO 04/08/2024 03:49 PM [facility]
[2024-03-31 15:57] VITALS: BP 144/65; PULSE 64; O2SAT 99
[2024-03-31 16:04] VITALS: BP 149/68; PULSE 71; RESP 18; TEMP 36.7; O2SAT 96; BMI 25.1
--- NOTE | 2024-03-31 16:11 | ED_ITS ---
HPI - General Adult General Chief complaint: General Medical Stated complaint: hematuria, covid + Time Seen by Provider: 03/31/24 16:02 History of Present Illness HPI narrative: Patient is 73 years old history of prostate cancer history of atrial fibrillation currently on Eliquis presented today with having bloody urine. Patient claims that he is urinating blood. There was no clots associated with this. History of prostate cancer in the past. No abdominal pain. No change in bowel movement. Patient is from home. No coughing or congestion but tested positive for COVID recently. Related Data Home Medications ?Medication ?Instructions ?Recorded ?Confirmed lovastatin 20 mg tablet 20 mg PO BEDTIME 03/23/20 10/29/23 ropinirole 0.25 mg tablet 0.25 mg PO BEDTIME 03/23/20 10/29/23 omeprazole 20 mg capsule,delayed 40 mg PO DAILY 11/21/20 10/29/23 release latanoprost 0.005 % eye drops 1 drp ophthalmic (eye) BEDTIME 06/15/23 10/29/23 lidocaine 5 % topical patch 1 patch topical DAILY PRN Pain 06/15/23 10/29/23 ondansetron 4 mg disintegrating 4 mg PO DAILY PRN Nausea And 06/15/23 10/29/23 tablet Vomiting oxycodone-acetaminophen 5 mg-325 1 tab PO TID PRN Pain 06/15/23 10/29/23 mg tablet (Percocet) sodium chloride 0.65 % nasal spray 1 spray intranasal DAILY 06/15/23 10/29/23 aerosol (Saline Nasal) food supplemt, lactose-reduced 1 ea PO DAILY 10/29/23 10/29/23 Previous Rx's ?Medication ?Instructions ?Recorded apixaban 5 mg tablet (Eliquis) 5 mg PO BID 90 days #180 tabs 06/20/23 dronedarone 400 mg tablet (Multaq) 400 mg PO BID 90 days #180 tabs 09/17/23 Allergies Allergy/AdvReac Type Severity Reaction Status Date / Time Codeine Sulfate AdvReac Unknown vomiting Uncoded 03/31/24 16:06 Review of Systems 2 Review of Systems: Positive bloody urine Yes all other systems are reviewed and are negative PMFSH Past Medical History Attestation statement: The following information was validated with the patient. Medical History Paroxysmal atrial flutter Atrial flutter with rapid ventricular response Restless leg syndrome Elevated cholesterol Upper GI bleed Barretts esophagus C. difficile colitis Ileus Abdominal pain Diarrhea Nausea & vomiting Lung nodule < 6cm on CT Small bowel obstruction Diaphragm injury Pelvis fracture Liver laceration Sciatica Surgical History History of prostate biopsy History of total left knee replacement (TKR) Hx of exploratory laparotomy History of exploratory laparotomy History of esophagogastroduodenoscopy (EGD) Hx of colonoscopy H/O ankle fusion H/O knee surgery Family History Family History Mother Colon cancer Sister Pancreatic cancer Social History Social History Household Members: Spouse Housing: House Are you a primary care services manager to a significant other at home: No Do you presently have visiting nurse or other home services: No Alcohol intake: current Alcohol intake frequency: a few times a month Alcohol type: beer 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 Tobacco Use Status: Former Tobacco user Tobacco use type: Cigarette Cigarette Packs Per Day: 1 Smoked in Last 30 Days: No Second Hand Smoke Exposure: No Use of substances other than those prescribed or required for medical reasons: No Substance Use Type: Marijuana Advance Directives: Yes Advance Directives on File: Yes Advance Directives Date on File: 11/22/20 Do you have a plan to hurt others: No Plan service: Yes Current occupational status: disabled Physical Exam ED Vital Signs: Vital Signs - 24 hr 03/31/24 16:04 03/31/24 17:08 03/31/24 19:11 Temperature 98.0 F 99.5 F 99.5 F Pulse Rate 71 65 70 Respiratory Rate 18 18 18 Blood Pressure 149/68 H 128/69 138/64 Pulse Oximetry 96 97 96 Oxygen Delivery Method Room Air Room Air Room Air BMI result Body Mass Index 25.1 Appearance: Alert. Oriented X3. No acute distress. Eyes: Pupils equal, round and reactive to light. ENT: Pharynx normal. Neck: Normal inspection. Neck supple. No lymph nodes noted. No crepitus CVS: Normal heart rate and rhythm. Pulses normal. Normal S1 and S2 Respiratory: No respiratory distress. Breath sounds normal. No Wheezing. No rales Abdomen: Soft and nontender. No rigidity. No distention. good BS x4 Skin: Skin warm and dry. Normal skin color. Normal skin turgor. Extremities: No lower extremity edema. Neurovascular intact to all extremities. No Lacerations. No Rash Neuro: Oriented X 3. No motor deficit. No sensory deficit. Moving all extermities. No slurred speech Medications Administered Discontinued Medications Generic Name Dose Route Start Last Admin Trade Name Pj PRN Reason Stop Dose Admin Hydrocodone Bitart/Acetaminophen 1 tab 03/31/24 20:39 03/31/24 20:52 Hydrocodone Bit/Acetam 5/325 Tablet PO 03/31/24 20:40 1 tab ONCE ONE Administration Iohexol 85 ml 03/31/24 18:46 03/31/24 18:46 Iohexol 350 Mg/Ml 100 Ml Infus..Btl IV 03/31/24 18:47 85 ml ONCE ONE Administration Medical Decision Making Medical Decision Making [facility] Narrative: Will get COVID test. Postvoid bladder scan. Urine will be sent for infection. CT scan of the abdomen pelvis to look for mass. Check INR to see patient is actually taking his Eliquis. Currently in no distress. Patient has been compliant in taking his medication per him. Patient's sodium came back at 01:26. Baseline is 140. The hemoglobin came back at 12 point 4. Baseline is in the 13-,1/2 range. Considering patient is on Eliquis. He is likely compliant as INR was elevated. Will require close monitoring. Repeat hemoglobin was ordered. Patient's CT scan of the abdomen pelvis showed a likely mass in the bladder. Question contributing to the hematuria. Question malignancy. Will contact the urologist. Will contact the hospitalist team for admission. Differential Diagnosis Differential Diagnoses: The differential diagnosis associated with the presentation includes Atrial fibrillation, on anticoagulation, urinary tract infection, hematuria, urinary retention, COVID Admission/Observation Consideration of admission/observation: Escalation of care including admission/observation considered Consult Healthcare Provider Management of the patient was discussed with: Hospitalist and Glazing Machine Operator (Urology) Lab Data [facility] Lab Attestation statement: I reviewed the patient's lab results. 03/31/24 16:31 03/31/24 16:31 Labs: Lab Results 03/31/24 03/31/24 03/31/24 Range/Units 16:31 18:10 18:41 WBC 6.7 (4.8-10.8) X10*3/uL RBC 4.18 L (4.60-5.80) X10*6/uL Hgb 12.4 L (14.0-18.0) g/dl Hct 35.9 L (42.0-52.0) % MCV 85.9 (80.0-98.0) fL MCH 29.7 (27.0-33.0) pg MCHC 34.5 (31.0-36.0) g/dl RDW 12.2 (11.0-16.0) % Plt Count 195 (160-400) X10*3/uL MPV 9.6 (9.4-12.4) fL Immature Gran % (Auto) 0.9 H (0.0-0.4) % Neut % (Auto) 75.8 H (45-73) % Lymph % (Auto) 6.9 L (20-40) % [place] % (Auto) 16.0 H (2-11) % Eos % (Auto) 0.3 (0-4) % Baso % (Auto) 0.1 (0-2) % Lymph # (Auto) 0.5 L (1.2-4.9) X10*3/uL [place] # (Auto) 1.1 (0.1-1.2) X10*3/uL Eos # (Auto) 0.0 (0.0-0.4) X10*3/uL Baso # (Auto) 0.0 (0.0-0.2) X10*3/uL Abs Immat Gran (auto) 0.06 H (0.00-0.03) X10*3/uL Absolute Neuts (auto) 5.1 (2.0-8.3) x10*3/uL Absolute Nucleated RBC 0.000 (0.0-0.012) X10*3/uL Nucleated RBC % (auto) 0.0 (0.0-0.2) /100WBC PT 15.6 H (10.9-12.4) SEC INR 1.3 H (0.9-1.1) Sodium 126 L (135-145) mmol/L Potassium 3.7 (3.3-5.1) mmol/L Chloride 95 L (96-108) mmol/L Carbon Dioxide 26 (22-29) mmol/L Anion Gap 9 L (12-20) BUN 9 (9-16) mg/dL Creatinine 0.82 (0.5-1.4) mg/dL Estim Creat Clear Calc 84.1 Estimated GFR > 60 Random Glucose 95 (60-115) mg/dL Calcium 8.4 D (8.4-10.2) mg/dL Total Bilirubin 0.5 (0.0-1.0) mg/dL Direct Bilirubin 0.2 (0.0-0.5) mg/dL AST 21 (5-37) U/L ALT 17 (0-40) U/L Alkaline Phosphatase 69 (39-117) U/L Total Protein 5.9 L (6.5-8.0) g/dL Albumin 3.8 (3.5-5.0) g/dL Lipase 13 (8-78) U/L Urine Color RED Urine Appearance Cloudy Urine pH 7.0 (5.0-9.0) Ur Specific [place] 1.015 (1.005-1.025) Urine Protein 100 (2+) H (Neg-Trace) mg/dL Urine Glucose (UA) Negative (Negative) mg/dL Urine Ketones 40 (Negative) mg/dL Urine Blood Moderate (2+) H (Negative) Urine Nitrite Negative (Negative) Ur Leukocyte Esterase Trace H (Negative) Urine RBC >20 H (0-2) /HPF Urine WBC 0-5 (0-5) /HPF Ur Squamous Epith Cells 0-2 (0-2) /HPF Urine Bacteria Trace (None Seen) Hyaline Casts 0-2 (0-2) /LPF Influenza Type A (PCR) NEGATIVE (Negative) Influenza Type B (PCR) NEGATIVE (Negative) RSV RNA Qual (PCR) NEGATIVE (Negative) SARS-CoV-2 RNA (RT-PCR) POSITIVE A (Negative) Blood Type B Negative Antibody Screen NEGATIVE Discharge Plan Discharge Clinical Impression: Acute hyponatremia, Hematuria, Bladder mass, COVID Patient Disposition: Admitted As Inpatient Print Language: Turkish
[2024-03-31 16:35] LABS: MANUAL DIFF FLAG NO
[2024-03-31 16:42] LABS: Basophils Percent Auto 0.1 % (0-2); Eosinophils Percent Auto 0.3 % (0-4); Hematocrit 35.9 % (42.0-52.0); Hemoglobin 12.4 g/dl (14.0-18.0); Imm Gran Abs Auto 0.06 X10*3/uL (0.00-0.03); Imm Gran Pct Auto 0.9 % (0.0-0.4); Lymphocytes Absolute Auto 0.5 X10*3/uL (1.2-4.9); Lymphocytes Percent Auto 6.9 % (20-40); Mean Corpuscular HGB Conc 34.5 g/dl (31.0-36.0); Mean Corpuscular Hemoglobin 29.7 pg (27.0-33.0); Mean Corpuscular Volume 85.9 fL (80.0-98.0); Mean Platelet Volume 9.6 fL (9.4-12.4); Monocytes Absolute Auto 1.1 X10*3/uL (0.1-1.2); Neutrophils Absolute Auto 5.1 x10*3/uL (2.0-8.3); Neutrophils Percent Auto 75.8 % (45-73); Platelet Count 195 X10*3/uL (160-400); Red Blood Count 4.18 X10*6/uL (4.60-5.80); Red Cell Distribution Width 12.2 % (11.0-16.0); White Blood Count 6.7 X10*3/uL (4.8-10.8)
[2024-03-31 16:43] LABS: INTERNATIONAL NORM RATIO 1.3 (0.9-1.1); Prothrombin Time 15.6 SEC (10.9-12.4)
[2024-03-31 17:08] VITALS: BP 128/69; PULSE 65; RESP 18; TEMP 37.5; O2SAT 97
[2024-03-31 17:21] LABS: Alanine Aminotransferase 17 U/L (0-40); Albumin Level 3.8 g/dL (3.5-5.0); Alkaline Phosphatase 69 U/L (39-117); Anion Gap 9 (12-20); Aspartate Amino Transferase 21 U/L (5-37); Bilirubin Direct 0.2 mg/dL (0.0-0.5); Bilirubin Total 0.5 mg/dL (0.0-1.0); Blood Urea Nitrogen 9 mg/dL (9-16); Calcium 8.4 mg/dL (8.4-10.2); Carbon Dioxide 26 mmol/L (22-29); Chloride 95 mmol/L (96-108); Creatinine Clr Calc Pharmacy 84.1; Estimated Glomerular Filt Rate > 60; Glucose Random 95 mg/dL (60-115); Lipase 13 U/L (8-78); Potassium 3.7 mmol/L (3.3-5.1); Sodium 126 mmol/L (135-145); Total Protein 5.9 g/dL (6.5-8.0)
[2024-03-31 17:26] LABS: Influenza A PCR NEGATIVE (Negative); Influenza B PCR NEGATIVE (Negative); Resp Syncy Virus RNA Qual PCR NEGATIVE (Negative); SARS COV2 PCR INHOUSE POSITIVE (Negative)
[2024-03-31] MEDS: iohexoL 350 MG/ML 100 ML INFUS..BTL 85 ML IV (18:46)
[2024-03-31 18:55] LABS: Appearance Urine Cloudy; Color Urine RED; Glucose Urine UA Negative (Negative); Leukocyte Esterase Urine Trace (Negative); Nitrite Urine Negative (Negative); Specific Gravity - Urine 1.015 (1.005-1.025); UMIC TRIGGER UACC YES; Urine Blood Moderate (2+) (Negative); Urine Ketones 40 mg/dL (Negative); Urine Protein 100 (2+) mg/dL (Neg-Trace)
[2024-03-31 18:56] LABS: Bacteria Urine Trace (None Seen); Hyaline Casts Urine 0-2 /LPF (0-2); RBC Urine >20 /HPF (0-2); Squamous Epithelial Cell Urine 0-2 /HPF (0-2); WBC Urine 0-5 /HPF (0-5)
[2024-03-31 19:11] VITALS: BP 138/64; PULSE 70; RESP 18; TEMP 37.5; O2SAT 96
--- NOTE | 2024-03-31 19:12 | PC.NURSE ---
this RN assumed care of pt, pt a&ox4, respirations even and unlabored. pt denies pain at this time, pt noted to have bloody urine in urinal but denies pain to urinate. vss.
[2024-03-31] MEDS: HYDROcodone Bit/Acetam 5/325 TABLET 1 TAB PO (20:52)
--- NOTE | 2024-03-31 20:52 | PC.NURSE ---
pt reporting 10/10 lower back pain. pt reports he takes medication at home as needed for pain. pt medicated per jul, tolerated well with water.
[2024-03-31 23:13] LABS: MANUAL DIFF FLAG NO
[2024-03-31 23:15] LABS: Basophils Percent Auto 0.2 % (0-2); Eosinophils Percent Auto 0.3 % (0-4); Hematocrit 38.6 % (42.0-52.0); Hemoglobin 13.4 g/dl (14.0-18.0); Imm Gran Abs Auto 0.06 X10*3/uL (0.00-0.03); Imm Gran Pct Auto 0.9 % (0.0-0.4); Lymphocytes Absolute Auto 0.8 X10*3/uL (1.2-4.9); Lymphocytes Percent Auto 11.7 % (20-40); Mean Corpuscular HGB Conc 34.7 g/dl (31.0-36.0); Mean Corpuscular Hemoglobin 29.5 pg (27.0-33.0); Mean Corpuscular Volume 84.8 fL (80.0-98.0); Mean Platelet Volume 9.3 fL (9.4-12.4); Monocytes Percent Auto 15.5 % (2-11); Neutrophils Absolute Auto 4.7 x10*3/uL (2.0-8.3); Neutrophils Percent Auto 71.4 % (45-73); Platelet Count 191 X10*3/uL (160-400); Red Blood Count 4.55 X10*6/uL (4.60-5.80); Red Cell Distribution Width 12.1 % (11.0-16.0); White Blood Count 6.6 X10*3/uL (4.8-10.8)
--- NOTE | 2024-03-31 23:37 | PM.IMHP ---
History of Present Illness Date of Service: 03/31/24 Chief Complaint: Hematuria This is a 73-year-old male with pertinent history of prostate cancer status post radiation, atrial fibrillation on Eliquis, restless leg syndrome, mixed hyperlipidemia, gastroesophageal reflux disease, chronic pain with chronic opioid use who presents to the emergency department for evaluation of blood in urine. He noticed blood in urine on the day of presentation. It has been persistent. No clots noted. Patient took a home test and tested positive for COVID-19 infection. His also has COVID as per the patient. No dyspnea or chest pain. Hematuria is painless and patient denies nausea, vomiting or abdominal pain. No fever, chills, palpitations, changes in bowel habits. In the emergency department, imaging with suspected ureteral mass. Urology was consulted who requested admission. Review of Systems Constitutional: Constitutional: Reports no additional constitutional complaints Cardiovascular: Cardiovascular: Reports no additional cardiovascular complaints Respiratory: Respiratory: Reports no additional respiratory complaints Gastrointestinal: Gastrointestinal: Reports no additional gastrointestinal complaints Genitourinary: Genitourinary: Reports hematuria [facility] Medical History Paroxysmal atrial flutter Atrial flutter with rapid ventricular response Restless leg syndrome Elevated cholesterol Upper GI bleed Barretts esophagus C. difficile colitis Ileus Abdominal pain Diarrhea Nausea & vomiting Lung nodule < 6cm on CT Small bowel obstruction Diaphragm injury Pelvis fracture Liver laceration Sciatica Family History Mother Colon cancer Sister Pancreatic cancer Surgical History History of prostate biopsy History of total left knee replacement (TKR) Hx of exploratory laparotomy History of exploratory laparotomy History of esophagogastroduodenoscopy (EGD) Hx of colonoscopy H/O ankle fusion H/O knee surgery Social History Household Members: Spouse Housing: House Are you a primary healthcare translator to a significant other at home: No Do you presently have visiting nurse or other home services: No Alcohol intake: current Alcohol intake frequency: a few times a month Alcohol type: beer 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 Tobacco Use Status: Former Tobacco user Tobacco use type: Cigarette Cigarette Packs Per Day: 1 Smoked in Last 30 Days: No Second Hand Smoke Exposure: No Use of substances other than those prescribed or required for medical reasons: No Substance Use Type: Marijuana Advance Directives: Yes Advance Directives on File: Yes Advance Directives Date on File: 11/22/20 Do you have a plan to hurt others: No Plan service: Yes Current occupational status: disabled Meds Allergies Allergy/AdvReac Type Severity Reaction Status Date / Time Codeine Sulfate AdvReac Unknown vomiting Uncoded 03/31/24 16:06 Home Medications ?Medication ?Instructions ?Recorded ?Confirmed ?Last Taken ?Type lovastatin 20 mg tablet 20 mg PO BEDTIME 03/23/20 10/29/23 11/20/20 History ropinirole 0.25 mg tablet 0.25 mg PO BEDTIME 03/23/20 10/29/23 11/20/20 History omeprazole 20 mg capsule,delayed 40 mg PO DAILY 11/21/20 10/29/23 11/20/20 History release latanoprost 0.005 % eye drops 1 drp ophthalmic (eye) BEDTIME 06/15/23 10/29/23 Unknown History lidocaine 5 % topical patch 1 patch topical DAILY PRN Pain 06/15/23 10/29/23 Unknown History ondansetron 4 mg disintegrating 4 mg PO DAILY PRN Nausea And 06/15/23 10/29/23 Unknown History tablet Vomiting oxycodone-acetaminophen 5 mg-325 1 tab PO TID PRN Pain 06/15/23 10/29/23 Unknown History mg tablet (Percocet) sodium chloride 0.65 % nasal spray 1 spray intranasal DAILY 06/15/23 10/29/23 Unknown History aerosol (Saline Nasal) food supplemt, lactose-reduced 1 ea PO DAILY 10/29/23 10/29/23 Unknown History Physical Exam Vital Signs and Narrative: Vital Signs: Last Vital Signs Temp 99.5 F 03/31/24 19:11 Pulse 70 03/31/24 19:11 Resp 18 03/31/24 19:11 BP 138/64 03/31/24 19:11 Pulse Ox 96 03/31/24 19:11 O2 Del Method Room Air 03/31/24 19:11 BMI result Body Mass Index 25.1 Middle-aged male lying in bed in no distress Neck supple, no JVD Regular rate and rhythm, S1-S2 heard Regular breath sounds bilaterally, no wheezing or crackles appreciated Abdomen soft nontender, no guarding, no rigidity Patient is awake, alert and oriented to self, place, time and person ; no focal motor deficit Psych: Anxious No pedal edema Results Labs 03/31/24 23:08 03/31/24 16:31 Labs: Laboratory Results - last 24 hr 03/31/24 03/31/24 03/31/24 16:31 18:10 18:41 MCV 85.9 MCH 29.7 MCHC 34.5 RDW 12.2 Plt Count 195 MPV 9.6 Immature Gran % (Auto) 0.9 H Neut % (Auto) 75.8 H Lymph % (Auto) 6.9 L [place] % (Auto) 16.0 H Eos % (Auto) 0.3 Baso % (Auto) 0.1 Lymph # (Auto) 0.5 L [place] # (Auto) 1.1 Eos # (Auto) 0.0 Baso # (Auto) 0.0 Abs Immat Gran (auto) 0.06 H Absolute Neuts (auto) 5.1 Absolute Nucleated RBC 0.000 Nucleated RBC % (auto) 0.0 PT 15.6 H INR 1.3 H Anion Gap 9 L Estim Creat Clear Calc 84.1 Estimated GFR > 60 Random Glucose 95 Calcium 8.4 D Total Bilirubin 0.5 Direct Bilirubin 0.2 AST 21 ALT 17 Alkaline Phosphatase 69 Total Protein 5.9 L Albumin 3.8 Lipase 13 Urine Color RED Urine Appearance Cloudy Urine pH 7.0 Ur Specific [place] 1.015 Urine Protein 100 (2+) H Urine Glucose (UA) Negative Urine Ketones 40 Urine Blood Moderate (2+) H Urine Nitrite Negative Ur Leukocyte Esterase Trace H Urine RBC >20 H Urine WBC 0-5 Ur Squamous Epith Cells 0-2 Urine Bacteria Trace Hyaline Casts 0-2 Influenza Type A (PCR) NEGATIVE Influenza Type B (PCR) NEGATIVE RSV RNA Qual (PCR) NEGATIVE SARS-CoV-2 RNA (RT-PCR) POSITIVE A Blood Type B Negative Antibody Screen NEGATIVE 03/31/24 23:08 MCV 84.8 MCH 29.5 MCHC 34.7 RDW 12.1 Plt Count 191 MPV 9.3 L Immature Gran % (Auto) 0.9 H Neut % (Auto) 71.4 Lymph % (Auto) 11.7 L [place] % (Auto) 15.5 H Eos % (Auto) 0.3 Baso % (Auto) 0.2 Lymph # (Auto) 0.8 L [place] # (Auto) 1.0 Eos # (Auto) 0.0 Baso # (Auto) 0.0 Abs Immat Gran (auto) 0.06 H Absolute Neuts (auto) 4.7 Absolute Nucleated RBC 0.000 Nucleated RBC % (auto) 0.0 PT INR Anion Gap Estim Creat Clear Calc Estimated GFR Random Glucose Calcium Total Bilirubin Direct Bilirubin AST ALT Alkaline Phosphatase Total Protein Albumin Lipase Urine Color Urine Appearance Urine pH Ur Specific [place] Urine Protein Urine Glucose (UA) Urine Ketones Urine Blood Urine Nitrite Ur Leukocyte Esterase Urine RBC Urine WBC Ur Squamous Epith Cells Urine Bacteria Hyaline Casts Influenza Type A (PCR) Influenza Type B (PCR) RSV RNA Qual (PCR) SARS-CoV-2 RNA (RT-PCR) Blood Type Antibody Screen Imaging Radiologist's Impressions: Impressions Abdomen/Pelvis CT 03/31/24 18:30 IMPRESSION: 1. No acute abdominal or pelvic pathology. 2. Circumferential bladder wall thickening may be related to underdistention or prior radiation treatment. 3. Mild bilateral hydroureter. No obstructing renal or ureteral calculus. 4. Suspected enhancing mass at the left ureteral orifice measuring 6 mm. Recommend urology consult and further evaluation with direct cystoscopy. Fleischner guidelines were followed. Electronically signed by: Nabil Reina DO 03/31/2024 09:28 PM [facility] [place] Plan (1) Hematuria: Status: Acute (2) Hyponatremia: Status: Acute Plan This is a 73-year-old male with pertinent history of prostate cancer status post radiation, atrial fibrillation on Eliquis, restless leg syndrome, mixed hyperlipidemia, gastroesophageal reflux disease, chronic pain with chronic opioid use who presents to the emergency department for evaluation of blood in urine. #. Hematuria: Will admit patient with cardiac monitoring. Placed order for Rasmussen catheter and will initiate CBI. Imaging with suspected mass at left ureteral orifice. Consulted Urology, appreciate assistance. Closely monitor H&H. Hold Eliquis #. Hyponatremia, moderate: Monitor with IV crystalloid resuscitation in the ER. Urine studies pending #. COVID-19 infection: Patient maintaining normal oxygen saturation on room air. Defer Decadron #. Atrial fibrillation: Hold anticoagulation as above #. Mixed hyperlipidemia on statin #. Gastroesophageal reflux disease on PPI #. Restless leg syndrome on ropinirole #. Chronic pain: On p.r.n. oxycodone Med rec pending DVT prophylaxis: Mechanical Full code Admit as inpatient and will require two night minimum hospital stay for evaluation of hematuria, monitoring of hemodynamics and H&H (as above), which is not possible in a lesser acute setting. Specialist consult pending Quality Stroke Does the patient have a stroke diagnosis?: No VTE Prior VTE?: No VTE Risk Level:: Medical - moderate - high VTE Device Contraindication: N/A - Device Ordered VTE Drug Contraindication: Treatment Not Indicated
[2024-04-01] VITALS (10 sets, daily range): BP systolic 128–157; BP diastolic 57–85; PULSE 61–90; RESP 14–18; TEMP 36.4–37.3; O2SAT 94–97
[2024-04-01 00:22] LABS: Osmolality Urine 284 mosm/kg (373-1093)
[2024-04-01] MEDS: Lactated Ringers 1,000 ML 999 ML IV (00:52)
[2024-04-01] MEDS: LORazepam 1 MG TABLET PO (00:52)
--- NOTE | 2024-04-01 01:07 | PC.NURSE ---
CBI begun per provider order at this time, 22F placed, pt noted to drain 200ML bloody urine, no clots noted. pt tolerated well, denies pain at this time.
[2024-04-01] MEDS: Morphine Sulfate 4 MG/ML CARTRIDGE IVPUSH ×3 (01:36→11:36)
[2024-04-01 01:38] LABS: Osmolality, Serum 271 mosm/kg (281-305)
[2024-04-01 06:02] LABS: Hematocrit 37.9 % (42.0-52.0); Hemoglobin 13.1 g/dl (14.0-18.0); Mean Corpuscular HGB Conc 34.6 g/dl (31.0-36.0); Mean Corpuscular Hemoglobin 29.4 pg (27.0-33.0); Mean Corpuscular Volume 85.2 fL (80.0-98.0); Platelet Count 209 X10*3/uL (160-400); Red Blood Count 4.45 X10*6/uL (4.60-5.80); Red Cell Distribution Width 12.2 % (11.0-16.0); White Blood Count 4.5 X10*3/uL (4.8-10.8)
[2024-04-01 06:28] LABS: Anion Gap 14 (12-20); Blood Urea Nitrogen 8 mg/dL (9-16); Calcium 9.3 mg/dL (8.4-10.2); Carbon Dioxide 24 mmol/L (22-29); Chloride 100 mmol/L (96-108); Creatinine Clr Calc Pharmacy 89.6; Estimated Glomerular Filt Rate > 60; Glucose Random 85 mg/dL (60-115); Potassium 4.4 mmol/L (3.3-5.1); Sodium 134 mmol/L (135-145)
--- NOTE | 2024-04-01 06:50 | PC.NURSE ---
pt CBI noted to be bright red at this time, CBI continuing at this time.
[2024-04-01] MEDS: 0.9 % Sodium Chloride Flush 3 ML SYRINGE IVFLUSH ×2 (07:41→23:25)
--- NOTE | 2024-04-01 08:19 | PC.NURSE ---
Care of Pt assumed at change of shift. Pt resting quietly with family at bedside. Pt c/o pain to back and requests PRN. Rasmussen bag emptied with 2200 ml of punch colored drainage. Pt is A&Ox3 Breaths and speech are slow, even, and unlabored. Pt and family inquire about next steps and advised that a bed assignment is in the works. All care will continue in ED until Pt has an inpatient room.
--- NOTE | 2024-04-01 11:04 | P.PNIM_ITS ---
Subjective Subjective Date of Service: 04/01/24 Interval History: on CBI; urine tinged pink sick with Covid; pt has mild cold-like symptoms but no dyspnea and is not hypoxic Review of Systems Review of Systems: Yes all other systems are reviewed and are negative Physical Exam 2 Vital Signs: Vital Signs: Last Vital Signs Temp 98.4 F 04/01/24 06:48 Pulse 62 04/01/24 08:25 Resp 17 04/01/24 08:25 BP 143/67 H 04/01/24 08:25 Pulse Ox 94 04/01/24 08:25 O2 Del Method Room Air 04/01/24 08:25 BMI result Body Mass Index 25.1 Gen: in no acute distress HEENT: sclera anicteric, moist mucus membranes Neck: supple Lungs: clear to auscultation bilaterally Heart: regular rate and rhythm, no murmurs Abd: soft, non-tender, non-distended : CBI tinged pink Ext: no edema Skin: warm/well-perfused Neuro: alert and oriented x3, no focal findings Psych: appropriate affect Objective Data Active Medications Acetaminophen (Acetaminophen 325 Mg Tablet) 650 mg PO Q6H PRN PRN Reason: Pain, Mild (Pain Scale 1-3), fever or headache Calcium Carbonate (Calcium Carbonate 750 Mg Tab.Chew) 750 mg PO Q4H PRN PRN Reason: Heartburn Magnesium Hydroxide (Milk Of Magnesia 30 Ml Oral.Susp) 30 ml PO DAILY PRN PRN Reason: Constipation Melatonin (Melatonin 3 Mg Tablet) 6 mg PO BEDTIME PRN PRN Reason: Insomnia Morphine Sulfate (Morphine Sulfate 4 Mg/Ml Cartridge) 4 mg IVPUSH Q4H PRN; Protocol PRN Reason: Pain, Severe (Pain Scale 7-10) Last Admin: 04/01/24 07:41 Dose: 4 mg Documented By: JOEY Ondansetron HCl (Ondansetron Hcl 4 Mg/2 Ml Vial) 4 mg IVPUSH Q8H PRN PRN Reason: Nausea and Vomiting Sodium Chloride (0.9 % Sodium Chloride Flush 3 Ml Syringe) 3 ml IVFLUSH QSHIFT [facility] Last Admin: 04/01/24 07:41 Dose: 3 ml Documented By: JOEY Labs 04/01/24 05:16 04/01/24 05:16 Labs: Laboratory Results - last 24 hr 03/31/24 03/31/24 03/31/24 16:31 18:10 18:41 MCV 85.9 MCH 29.7 MCHC 34.5 RDW 12.2 Plt Count 195 MPV 9.6 Immature Gran % (Auto) 0.9 H Neut % (Auto) 75.8 H Lymph % (Auto) 6.9 L [place] % (Auto) 16.0 H Eos % (Auto) 0.3 Baso % (Auto) 0.1 Lymph # (Auto) 0.5 L [place] # (Auto) 1.1 Eos # (Auto) 0.0 Baso # (Auto) 0.0 Abs Immat Gran (auto) 0.06 H Absolute Neuts (auto) 5.1 Absolute Nucleated RBC 0.000 Nucleated RBC % (auto) 0.0 PT 15.6 H INR 1.3 H Anion Gap 9 L Estim Creat Clear Calc 84.1 Estimated GFR > 60 Random Glucose 95 Osmolality Calcium 8.4 D Total Bilirubin 0.5 Direct Bilirubin 0.2 AST 21 ALT 17 Alkaline Phosphatase 69 Total Protein 5.9 L Albumin 3.8 Lipase 13 Urine Color RED Urine Appearance Cloudy Urine pH 7.0 Ur Specific [place] 1.015 Urine Protein 100 (2+) H Urine Glucose (UA) Negative Urine Ketones 40 Urine Blood Moderate (2+) H Urine Nitrite Negative Ur Leukocyte Esterase Trace H Urine RBC >20 H Urine WBC 0-5 Ur Squamous Epith Cells 0-2 Urine Bacteria Trace Hyaline Casts 0-2 Urine Osmolality 284 L Ur Random Sodium 58.0 Influenza Type A (PCR) NEGATIVE Influenza Type B (PCR) NEGATIVE RSV RNA Qual (PCR) NEGATIVE SARS-CoV-2 RNA (RT-PCR) POSITIVE A Blood Type B Negative Antibody Screen NEGATIVE 03/31/24 04/01/24 04/01/24 23:08 01:15 05:16 MCV 84.8 85.2 MCH 29.5 29.4 MCHC 34.7 34.6 RDW 12.1 12.2 Plt Count 191 209 MPV 9.3 L 10.0 Immature Gran % (Auto) 0.9 H Neut % (Auto) 71.4 Lymph % (Auto) 11.7 L [place] % (Auto) 15.5 H Eos % (Auto) 0.3 Baso % (Auto) 0.2 Lymph # (Auto) 0.8 L [place] # (Auto) 1.0 Eos # (Auto) 0.0 Baso # (Auto) 0.0 Abs Immat Gran (auto) 0.06 H Absolute Neuts (auto) 4.7 Absolute Nucleated RBC 0.000 0.000 Nucleated RBC % (auto) 0.0 0.0 PT INR Anion Gap 14 Estim Creat Clear Calc 89.6 Estimated GFR > 60 Random Glucose 85 Osmolality 271 L Calcium 9.3 D Total Bilirubin Direct Bilirubin AST ALT Alkaline Phosphatase Total Protein Albumin Lipase Urine Color Urine Appearance Urine pH Ur Specific [place] Urine Protein Urine Glucose (UA) Urine Ketones Urine Blood Urine Nitrite Ur Leukocyte Esterase Urine RBC Urine WBC Ur Squamous Epith Cells Urine Bacteria Hyaline Casts Urine Osmolality Ur Random Sodium Influenza Type A (PCR) Influenza Type B (PCR) RSV RNA Qual (PCR) SARS-CoV-2 RNA (RT-PCR) Blood Type Antibody Screen Assessment and Plan (1) Hematuria: Status: Acute Plan d2 for 73yo M with prostate CA s/p XRT, pAF on apixaban, RLS, chronic pain presenting with hematuria and also to have Covid-19 without hypoxia hematuria associated with ureteral mass - CBI, Urology consult, hold apixaban hypoNa - corrected quickly after 1L LR; recheck Na q4h and ensure not correcting faster than 10-12 mEq/24 hr [if correcting too quickly, may need hypotonic fluid] Covid-19 infection - not hypoxic; no specific therapy indicated unless he becomes hypoxic pAF - hold apixaban; continue dronedarone RLS - continue ropinirole HLD - continue statin GERD - continue PPI chronic pain - prn oxycodone VTE ppx - SCDs; hold apixaban dispo - eventual home In my clinical judgment, the patient requires continued inpatient hospitalization for the following reasons: urologic consultation Total time managing care of this patient today: 40 minutes. Quality Stroke Does the patient have a stroke diagnosis?: No VTE Prior VTE?: No VTE Risk Level:: Medical - moderate - high VTE Device Contraindication: N/A - Device Ordered VTE Drug Contraindication: Treatment Not Indicated
[2024-04-01 11:41] LABS: Sodium 135 mmol/L (135-145)
--- NOTE | 2024-04-01 12:15 | MHC.CM.PN ---
Pt lives with his , HCP is on file, names his Shane[facility]. He does not have home care. PCP is confirmed: Dr. Noel at the [place] in [facility]. For DME the pt uses a cane. He is a disabled . Transport home at [place] is via family, DCP: home with services. Cm to follow for DC needs.
[2024-04-01] MEDS: Dextrose 5 % 1,000 ML 100 ML IVCONT (13:39)
--- NOTE | 2024-04-01 14:40 | PHA.MEDREC ---
Addendum entered by Masha Headley RPh 04/01/24 15:00: Med rec was reviewed by [facility]. Original Note: Pharmacy Consult ? Medication Reconciliation Pharmacy has completed the medication reconciliation. spoke to patient to confirm med list. [facility] since 8:46 am. Just received med list at 2:30pm. [facility] to confirm med rec.
[2024-04-01 15:02] LABS: Sodium 133 mmol/L (135-145)
[2024-04-01] MEDS: Omeprazole 40 MG CAPSULE.DR PO (15:18)
[2024-04-01] MEDS: HYDROmorphone HCl 1 MG/ML SYRINGE IVPUSH ×3 (16:37→23:22)
--- NOTE | 2024-04-01 19:22 | MHC.EDTECH ---
pt stated he is urinating outside his catheter, RN made aware
[2024-04-01 19:29] LABS: Sodium 134 mmol/L (135-145)
--- NOTE | 2024-04-01 20:35 | PC.NURSE ---
Irrigation bags not in ED. Notified dive supervisor.
[2024-04-01] MEDS: Dronedarone HCl 400 MG TABLET PO (22:24)
[2024-04-01] MEDS: rOPINIRole HCL 0.25 MG TABLET PO (22:24)
[2024-04-01] MEDS: Metoprolol Tartrate 12.5 MG HALFTAB PO (22:27)
[2024-04-02] MEDS: HYDROmorphone HCl 1 MG/ML SYRINGE IVPUSH ×5 (02:22→18:51)
[2024-04-02 03:47] VITALS: BP 117/58; PULSE 83; RESP 14; TEMP 36.4; O2SAT 93
--- NOTE | 2024-04-02 03:48 | PC.NURSE ---
Pt has cbi. During this shift I had to irrigate and flush cbi constantly with nursing load out supervisor. Patient was in excruciating pain when irrigated manually and PRN Dilaudid was given for pain management with little improvement. Clots and bright red urine was draining majority of night. Urine flow would intermittently stop, causing additional pain for patient when urinating. Pt at 03:30 noted to have severe scrotal edema. Nursing load out supervisor and MD notified . CBI clamped/3way removed for the mean time. On-call urologist notified via [employer].
[2024-04-02] MEDS: iohexoL 350 MG/ML 100 ML INFUS..BTL 85 ML IV (04:49)
[2024-04-02] MEDS: Omeprazole 40 MG CAPSULE.DR PO (05:26)
[2024-04-02 06:53] LABS: Anion Gap 16 (12-20); Blood Urea Nitrogen 12 mg/dL (9-16); Calcium 8.8 mg/dL (8.4-10.2); Carbon Dioxide 19 mmol/L (22-29); Chloride 99 mmol/L (96-108); Creatinine Clr Calc Pharmacy 82.1; Estimated Glomerular Filt Rate > 60; Glucose Random 98 mg/dL (60-115); Potassium 4.1 mmol/L (3.3-5.1); Sodium 130 mmol/L (135-145)
[2024-04-02 07:54] VITALS: BP 104/67; PULSE 90; RESP 18; TEMP 37.2; O2SAT 95
[2024-04-02 08:26] LABS: Estimated Average Glucose 105 mg/dL; Hemoglobin A1C 114.3153 umol/L; Hemoglobin A1c % 5.3 % (<6.0); Total Hemoglobin (HGBA1C) 3368.3856 umol/L
[2024-04-02 08:29] LABS: C Reactive Protein 1.78 mg/dL (< or = 0.50)
[2024-04-02] MEDS: Piperacillin Sodium/Tazobactam 3.375 GM in 0.9 % Sodium Chloride 50 ML IV ×3 (09:16→20:26)
[2024-04-02] MEDS: Lactated Ringers 1,000 ML 100 ML IVCONT ×2 (09:17→21:48)
[2024-04-02] MEDS: Clindamycin Phosphate/D5W 600 MG/50 ML PIGGYBACK 100 MG IV ×2 (09:53→17:38)
[2024-04-02] MEDS: Metoprolol Tartrate 12.5 MG HALFTAB PO (10:24)
[2024-04-02] MEDS: DAPTOmycin 500 MG in 0.9 % Sodium Chloride 50 ML 100.33 MG IV (10:24)
[2024-04-02] MEDS: Dronedarone HCl 400 MG TABLET PO ×2 (10:24→20:26)
[2024-04-02 11:41] VITALS: BP 112/66; PULSE 88; RESP 16; TEMP 36.9; O2SAT 96
--- NOTE | 2024-04-02 13:21 | P.PNIM_ITS ---
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 Review of Systems Review of Systems: Yes all other systems are reviewed and are negative Physical Exam 2 Vital Signs: Vital Signs: Last Vital Signs Temp 98.5 F 04/02/24 11:41 Pulse 88 04/02/24 11:41 Resp 16 04/02/24 11:41 BP 112/66 04/02/24 11:41 Pulse Ox 96 04/02/24 11:41 O2 Del Method Room Air 04/02/24 11:41 BMI result Body Mass Index 25.1 Gen: in no acute distress HEENT: sclera anicteric, moist mucus membranes Neck: supple Lungs: clear to auscultation bilaterally Heart: regular rate and rhythm, no murmurs Abd: soft, non-tender, non-distended : extensive scrotal/perineal swelling without overt necrosis Ext: no edema Skin: warm/well-perfused Neuro: alert and oriented x3, no focal findings Psych: appropriate affect Objective Data Active Medications Acetaminophen (Acetaminophen 325 Mg Tablet) 650 mg PO Q6H PRN PRN Reason: Pain, Mild (Pain Scale 1-3), fever or headache Calcium Carbonate (Calcium Carbonate 750 Mg Tab.Chew) 750 mg PO Q4H PRN PRN Reason: Heartburn Dronedarone (Dronedarone Hcl 400 Mg Tablet) 400 mg PO BID COUNTS INCLUDE 234 BEDS AT THE [facility] Last Admin: 04/02/24 10:24 Dose: 400 mg Documented By: KULDIP Hydromorphone HCl (Hydromorphone Hcl 1 Mg/Ml Syringe) 1 mg IVPUSH Q3H PRN; Protocol PRN Reason: Pain, Severe (Pain Scale 7-10) Last Admin: 04/02/24 12:50 Dose: 1 mg Documented By: KULDIP Piperacillin Sod/Tazobactam (Sod 3.375 gm/ Sodium Chloride) 50 mls @ 100 mls/hr IV Q6H COUNTS INCLUDE 234 BEDS AT THE [facility] Last Infusion: 04/02/24 09:51 Dose: Infused Documented By: KULDIP Daptomycin 500 mg/ Sodium (Chloride) 60 mls @ 100.325 mls/hr IV Q24H COUNTS INCLUDE 234 BEDS AT THE [facility] Last Infusion: 04/02/24 11:07 Dose: Infused Documented By: KULDIP Clindamycin Phosphate (Cleocin) 600 mg in 50 mls @ 100 mls/hr IV Q8H COUNTS INCLUDE 234 BEDS AT THE [facility] Last Infusion: 04/02/24 10:23 Dose: Infused Documented By: KULDIP Lactated Ringer's (Lr) 1,000 mls @ 100 mls/hr IVCONT .Q10H COUNTS INCLUDE 234 BEDS AT THE [facility] Last Admin: 04/02/24 09:17 Dose: 100 mls/hr Documented By: KULDIP Latanoprost (Latanoprost 0.005 % Ophth Yuly 2.5 Ml Drops) 1 drop EYE-BOTH BEDTIME COUNTS INCLUDE 234 BEDS AT THE [facility] Last Admin: 04/01/24 21:00 Dose: Not Given Documented By: JAYLAN Non-Admin Reason: Med Not Available Magnesium Hydroxide (Milk Of Magnesia 30 Ml Oral.Susp) 30 ml PO DAILY PRN PRN Reason: Constipation Melatonin (Melatonin 3 Mg Tablet) 6 mg PO BEDTIME PRN PRN Reason: Insomnia Metoprolol Tartrate (Metoprolol Tartrate 12.5 Mg Halftab) 12.5 mg PO BID COUNTS INCLUDE 234 BEDS AT THE [facility]; Protocol Last Admin: 04/02/24 10:24 Dose: 12.5 mg Documented By: KULDIP Omeprazole (Omeprazole 40 Mg Capsule.Dr) 40 mg PO DAILY@0630 COUNTS INCLUDE 234 BEDS AT THE [facility] Last Admin: 04/02/24 05:26 Dose: 40 mg Documented By: JAYLAN Ondansetron HCl (Ondansetron Hcl 4 Mg/2 Ml Vial) 4 mg IVPUSH Q8H PRN PRN Reason: Nausea and Vomiting Oxycodone HCl (Oxycodone Hcl Immed Release 5 Mg Tablet) 5 mg PO TID PRN PRN Reason: Pain Pravastatin Sodium (Pravastatin Sodium 20 Mg Tablet) 20 mg PO DAILY COUNTS INCLUDE 234 BEDS AT THE [facility] Ropinirole HCl (Ropinirole Hcl 0.25 Mg Tablet) 0.25 mg PO BEDTIME COUNTS INCLUDE 234 BEDS AT THE [facility] Last Admin: 04/01/24 22:24 Dose: 0.25 mg Documented By: JAYLAN Sodium Chloride (0.9 % Sodium Chloride Flush 3 Ml Syringe) 3 ml IVFLUSH QSHIFT COUNTS INCLUDE 234 BEDS AT THE [facility] Last Admin: 04/02/24 07:23 Dose: Not Given Documented By: HO.MCDONOH Non-Admin Reason: IV Running Labs 11/20/24 05:16 04/02/24 06:03 Labs: Laboratory Results - last 24 hr 04/01/24 04/02/24 06:03 06:03 Hold Purple Top SEE NOTE Anion Gap 16 Estim Creat Clear Calc 82.1 Estimated GFR > 60 Random Glucose 98 Estimat Average Glucose 105 Hemoglobin A1c % 5.3 Calcium 8.8 C-Reactive Protein 1.78 H Impressions Abdomen/Pelvis CT 04/02/24 04:20 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 Discussed with the nurse, ( Jaki), taking care of the patient at 7:25 AM on 04/02/2024 Fleischner guidelines were followed. 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 Discussed with Urology; no operative management for now until another 2 days off apixaban sclerotic iliac lesion - suspicion for metastatic prostate CA, will need Oncolgy follow-up hypoNa - corrected at appropriate rate Covid-19 infection - not hypoxic; no specific therapy indicated unless he becomes hypoxic pAF - hold apixaban; continue dronedarone RLS - continue ropinirole HLD - continue statin GERD - continue PPI chronic pain - prn oxycodone VTE ppx - SCDs; hold apixaban dispo - eventual home In my clinical judgment, the patient requires continued inpatient hospitalization for the following reasons: urologic consultation Total time managing care of this patient today: 5 minutes. Quality Stroke Does the patient have a stroke diagnosis?: No VTE Prior VTE?: No VTE Risk Level:: Medical - moderate - high VTE Device Contraindication: N/A - Device Ordered VTE Drug Contraindication: Treatment Not Indicated
[2024-04-02 15:24] VITALS: BP 105/57; PULSE 93; RESP 12; TEMP 36.6; O2SAT 95
[2024-04-02] MEDS: 0.9 % Sodium Chloride Flush 3 ML SYRINGE IVFLUSH (15:55)
[2024-04-02 19:51] VITALS: BP 110/67; PULSE 80; RESP 14; TEMP 36.6; O2SAT 94
[2024-04-02] MEDS: rOPINIRole HCL 0.25 MG TABLET PO (20:26)
[2024-04-03] VITALS (7 sets, daily range): BP systolic 96–137; BP diastolic 48–75; PULSE 74–89; RESP 16–22; TEMP 36–37.4; O2SAT 92–97
[2024-04-03] MEDS: Latanoprost 0.005 % Ophth Sol 2.5 ML DROPS 1 DROP EYE-BOTH ×2 (00:27→22:50)
[2024-04-03] MEDS: Clindamycin Phosphate/D5W 600 MG/50 ML PIGGYBACK 100 MG IV ×3 (00:27→16:44)
[2024-04-03] MEDS: Piperacillin Sodium/Tazobactam 3.375 GM in 0.9 % Sodium Chloride 50 ML IV ×4 (01:42→22:12)
[2024-04-03] MEDS: HYDROmorphone HCl 1 MG/ML SYRINGE IVPUSH ×6 (03:43→23:35)
[2024-04-03] MEDS: Omeprazole 40 MG CAPSULE.DR PO (06:09)
[2024-04-03 07:37] LABS: Hematocrit 33.9 % (42.0-52.0); Hemoglobin 11.3 g/dl (14.0-18.0); Mean Corpuscular HGB Conc 33.3 g/dl (31.0-36.0); Mean Corpuscular Hemoglobin 28.8 pg (27.0-33.0); Mean Corpuscular Volume 86.3 fL (80.0-98.0); Mean Platelet Volume 9.5 fL (9.4-12.4); Platelet Count 210 X10*3/uL (160-400); Red Blood Count 3.93 X10*6/uL (4.60-5.80); White Blood Count 5.4 X10*3/uL (4.8-10.8)
[2024-04-03] MEDS: Dronedarone HCl 400 MG TABLET PO ×2 (08:04→22:28)
[2024-04-03] MEDS: 0.9 % Sodium Chloride Flush 3 ML SYRINGE IVFLUSH ×2 (08:04→15:25)
[2024-04-03 08:05] LABS: Anion Gap 12 (12-20); Blood Urea Nitrogen 11 mg/dL (9-16); Calcium 7.8 mg/dL (8.4-10.2); Carbon Dioxide 25 mmol/L (22-29); Chloride 101 mmol/L (96-108); Creatinine Clr Calc Pharmacy 88.4; Estimated Glomerular Filt Rate > 60; Glucose Random 104 mg/dL (60-115); Sodium 134 mmol/L (135-145)
[2024-04-03] MEDS: DAPTOmycin 500 MG in 0.9 % Sodium Chloride 50 ML 100.33 MG IV (10:36)
--- NOTE | 2024-04-03 11:45 | MHC.CM.PN ---
EMR REVIEWED PT W/COVID19 AND HEMATURIA, UROLOGY PENDING, NO PLAN FOR DC AT THIS TIME, CM WILL CONT TO FOLLOW DC NEEDS.
--- NOTE | 2024-04-03 12:32 | P.PNIM_ITS ---
Subjective Subjective Date of Service: 04/03/24 Interval History: scrotal pain under control; swollen + discolored; no fever no cough urinating gregoria blood Review of Systems Review of Systems: Yes all other systems are reviewed and are negative Physical Exam 2 Vital Signs: Vital Signs: Last Vital Signs Temp 97.5 F 04/03/24 10:52 Pulse 89 04/03/24 10:52 Resp 18 04/03/24 10:52 BP 96/48 L 04/03/24 10:52 Pulse Ox 95 04/03/24 10:52 O2 Del Method Room Air 04/03/24 10:52 BMI result Body Mass Index 25.1 Gen: in no acute distress HEENT: sclera anicteric, moist mucus membranes Neck: supple Lungs: clear to auscultation bilaterally Heart: regular rate and rhythm, no murmurs Abd: soft, non-tender, non-distended : extensive scrotal/perineal swelling with dark discoloration Ext: no edema Skin: warm/well-perfused Neuro: alert and oriented x3, no focal findings Psych: appropriate affect Objective Data Active Medications Acetaminophen (Acetaminophen 325 Mg Tablet) 650 mg PO Q6H PRN PRN Reason: Pain, Mild (Pain Scale 1-3), fever or headache Calcium Carbonate (Calcium Carbonate 750 Mg Tab.Chew) 750 mg PO Q4H PRN PRN Reason: Heartburn Dronedarone (Dronedarone Hcl 400 Mg Tablet) 400 mg PO BID [facility] Last Admin: 04/03/24 08:04 Dose: 400 mg Documented By: JIMBO Hydromorphone HCl (Hydromorphone Hcl 1 Mg/Ml Syringe) 1 mg IVPUSH Q3H PRN; Protocol PRN Reason: Pain, Severe (Pain Scale 7-10) Last Admin: 04/03/24 12:10 Dose: 1 mg Documented By: JIMBO Piperacillin Sod/Tazobactam (Sod 3.375 gm/ Sodium Chloride) 50 mls @ 100 mls/hr IV Q6H [facility] Last Infusion: 04/03/24 09:22 Dose: Infused Documented By: JIMBO Daptomycin 500 mg/ Sodium (Chloride) 60 mls @ 100.325 mls/hr IV Q24H [facility] Last Infusion: 04/03/24 12:14 Dose: Infused Documented By: JIMBO Clindamycin Phosphate (Cleocin) 600 mg in 50 mls @ 100 mls/hr IV Q8H [facility] Last Infusion: 04/03/24 11:11 Dose: Infused Documented By: JIMBO Lactated Ringer's (Lr) 1,000 mls @ 100 mls/hr IVCONT .Q10H [facility] Last Admin: 04/03/24 06:08 Dose: Not Given Documented By: LINK Non-Admin Reason: IV Running Latanoprost (Latanoprost 0.005 % Ophth Yuly 2.5 Ml Drops) 1 drop EYE-BOTH BEDTIME [facility] Last Admin: 04/03/24 00:27 Dose: 1 drop Documented By: LINK Magnesium Hydroxide (Milk Of Magnesia 30 Ml Oral.Susp) 30 ml PO DAILY PRN PRN Reason: Constipation Melatonin (Melatonin 3 Mg Tablet) 6 mg PO BEDTIME PRN PRN Reason: Insomnia Metoprolol Tartrate (Metoprolol Tartrate 12.5 Mg Halftab) 12.5 mg PO BID [facility]; Protocol Last Admin: 04/03/24 08:10 Dose: Not Given Documented By: JIMBO Non-Admin Reason: pt not on med at home Omeprazole (Omeprazole 40 Mg Capsule.Dr) 40 mg PO DAILY@0630 [facility] Last Admin: 04/03/24 06:09 Dose: 40 mg Documented By: LINK Ondansetron HCl (Ondansetron Hcl 4 Mg/2 Ml Vial) 4 mg IVPUSH Q8H PRN PRN Reason: Nausea and Vomiting Oxycodone HCl (Oxycodone Hcl Immed Release 5 Mg Tablet) 5 mg PO TID PRN PRN Reason: Pain Pravastatin Sodium (Pravastatin Sodium 20 Mg Tablet) 20 mg PO DAILY [facility] Ropinirole HCl (Ropinirole Hcl 0.25 Mg Tablet) 0.25 mg PO BEDTIME [facility] Last Admin: 04/02/24 20:26 Dose: 0.25 mg Documented By: LINK Sodium Chloride (0.9 % Sodium Chloride Flush 3 Ml Syringe) 3 ml IVFLUSH QSHIFT [facility] Last Admin: 04/03/24 08:04 Dose: 3 ml Documented By: JIMBO Labs 04/03/24 07:10 04/03/24 07:10 Labs: Laboratory Results - last 24 hr 04/03/24 07:10 MCV 86.3 MCH 28.8 MCHC 33.3 RDW 12.0 Plt Count 210 MPV 9.5 Absolute Nucleated RBC 0.000 Nucleated RBC % (auto) 0.0 Anion Gap 12 Estim Creat Clear Calc 88.4 Estimated GFR > 60 Random Glucose 104 Calcium 7.8 L D Assessment and Plan (1) Hematuria: Status: Acute Plan d4 for 73yo M with prostate CA s/p XRT, pAF on apixaban, RLS, chronic pain presenting with hematuria and also to have Covid-19 without hypoxia 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 ID consult pending. Urology following. Last Eliquis was 03/31/24. sclerotic iliac lesion - suspicion for metastatic prostate CA, will need Oncology outpatient follow-up hypoNa - corrected at appropriate rate Covid-19 infection - not hypoxic; no specific therapy indicated unless he becomes hypoxic pAF - hold apixaban; continue dronedarone RLS - continue ropinirole HLD - continue statin GERD - continue PPI chronic pain - prn oxycodone, IV hydromorphone for acute pain VTE ppx - SCDs; hold apixaban dispo - eventual home In my clinical judgment, the patient requires continued inpatient hospitalization for the following reasons: IV ABX Total time managing care of this patient today: 45 minutes. Quality Stroke Does the patient have a stroke diagnosis?: No VTE Prior VTE?: No VTE Risk Level:: Medical - moderate - high VTE Device Contraindication: N/A - Device Ordered VTE Drug Contraindication: Treatment Not Indicated
[2024-04-03] MEDS: Lactated Ringers 1,000 ML 100 ML IVCONT (14:46)
[2024-04-03] MEDS: vancomycin HCL 125 MG CAPSULE PO ×2 (18:06→23:35)
[2024-04-03] MEDS: oxyCODONE HCl Immed Release 5 MG TABLET PO ×2 (18:06→22:12)
--- NOTE | 2024-04-03 21:41 | PM.EVENT ---
Event Note Date of Service: 04/03/24 Event Note: Blood splash to eye for prior shift nurse . Ordering viral hepatitis panel and HIV Time Spent With Patient Time: Total time managing care of this patient today ____ minutes.
--- NOTE | 2024-04-03 22:27 | W.PM.IDCN ---
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 He also has COVID. He has h/o prostate cancer and bladder irradiation. He has no fever or chills previously and now temperature 99.4. He is on Zosyn,Daptomycin and Clindamycin. 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 Review of Systems Review of Systems: Yes all other systems are reviewed and are negative PMFSH Past Medical History Medical History Paroxysmal atrial flutter Atrial flutter with rapid ventricular response Restless leg syndrome Elevated cholesterol Upper GI bleed Barretts esophagus C. difficile colitis Ileus Abdominal pain Diarrhea Nausea & vomiting Lung nodule < 6cm on CT Small bowel obstruction Diaphragm injury Pelvis fracture Liver laceration Sciatica Family History Family History Mother Colon cancer Sister Pancreatic cancer Family history: reviewed and not pertinent Surgical History Surgical History History of prostate biopsy History of total left knee replacement (TKR) Hx of exploratory laparotomy History of exploratory laparotomy History of esophagogastroduodenoscopy (EGD) Hx of colonoscopy H/O ankle fusion H/O knee surgery Social History Social History Household Members: Spouse Housing: House Are you a primary rn intensive care unit to a significant other at home: No Do you presently have visiting nurse or other home services: No Alcohol intake: current Alcohol intake frequency: a few times a month Alcohol type: beer 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 Tobacco Use Status: Former Tobacco user Tobacco use type: Cigarette Cigarette Packs Per Day: 1 Smoked in Last 30 Days: No Second Hand Smoke Exposure: No Use of substances other than those prescribed or required for medical reasons: No Substance Use Type: Marijuana Last Used Substance: Days (ago) Currently Displaying Signs/Symptoms of Drug Intoxication Withdrawal: No Advance Directives: Yes Advance Directives on File: Yes Advance Directives Date on File: 11/22/20 Do you have a plan to hurt others: No Plan Recently lost weight without trying: No Nutrition Risks: No Nutritional Risk service: Yes Current occupational status: disabled Meds Allergies Allergy/AdvReac Type Severity Reaction Status Date / Time Codeine Sulfate AdvReac Unknown vomiting Uncoded 03/31/24 16:06 Active Medications: Current Medications Acetaminophen (Acetaminophen 325 Mg Tablet) 650 mg PO Q6H PRN PRN Reason: Pain, Mild (Pain Scale 1-3), fever or headache Calcium Carbonate (Calcium Carbonate 750 Mg Tab.Chew) 750 mg PO Q4H PRN PRN Reason: Heartburn Dronedarone (Dronedarone Hcl 400 Mg Tablet) 400 mg PO BID [facility] Last Admin: 04/03/24 08:04 Dose: 400 mg Hydromorphone HCl (Hydromorphone Hcl 1 Mg/Ml Syringe) 1 mg IVPUSH Q3H PRN; Protocol PRN Reason: Pain, Severe (Pain Scale 7-10) Last Admin: 04/03/24 21:09 Dose: 1 mg Piperacillin Sod/Tazobactam (Sod 3.375 gm/ Sodium Chloride) 50 mls @ 100 mls/hr IV Q6H [facility] Last Admin: 04/03/24 22:12 Dose: 100 mls/hr Daptomycin 500 mg/ Sodium (Chloride) 60 mls @ 100.325 mls/hr IV Q24H [facility] Last Infusion: 04/03/24 12:14 Dose: Infused Clindamycin Phosphate (Cleocin) 600 mg in 50 mls @ 100 mls/hr IV Q8H [facility] Last Infusion: 04/03/24 17:29 Dose: Infused Lactated Ringer's (Lr) 1,000 mls @ 100 mls/hr IVCONT .Q10H [facility] Last Admin: 04/03/24 14:46 Dose: 100 mls/hr Latanoprost (Latanoprost 0.005 % Ophth Yuly 2.5 Ml Drops) 1 drop EYE-BOTH BEDTIME [facility] Last Admin: 04/03/24 00:27 Dose: 1 drop Magnesium Hydroxide (Milk Of Magnesia 30 Ml Oral.Susp) 30 ml PO DAILY PRN PRN Reason: Constipation Melatonin (Melatonin 3 Mg Tablet) 6 mg PO BEDTIME PRN PRN Reason: Insomnia Metoprolol Tartrate (Metoprolol Tartrate 12.5 Mg Halftab) 12.5 mg PO BID [facility]; Protocol Last Admin: 04/03/24 22:14 Dose: Not Given Omeprazole (Omeprazole 40 Mg Capsule.Dr) 40 mg PO DAILY@0630 [facility] Last Admin: 04/03/24 06:09 Dose: 40 mg Ondansetron HCl (Ondansetron Hcl 4 Mg/2 Ml Vial) 4 mg IVPUSH Q8H PRN PRN Reason: Nausea and Vomiting Oxycodone HCl (Oxycodone Hcl Immed Release 5 Mg Tablet) 5 mg PO TID PRN PRN Reason: Pain Last Admin: 04/03/24 22:12 Dose: 5 mg Pravastatin Sodium (Pravastatin Sodium 20 Mg Tablet) 20 mg PO DAILY [facility] Ropinirole HCl (Ropinirole Hcl 0.25 Mg Tablet) 0.25 mg PO BEDTIME [facility] Last Admin: 04/02/24 20:26 Dose: 0.25 mg Sodium Chloride (0.9 % Sodium Chloride Flush 3 Ml Syringe) 3 ml IVFLUSH QSHIFT [facility] Last Admin: 04/03/24 15:25 Dose: 3 ml Vancomycin HCl (Vancomycin Hcl 125 Mg Capsule) 125 mg PO Q6H [facility] Last Admin: 04/03/24 18:06 Dose: 125 mg Home Medications ?Medication ?Instructions ?Recorded ?Confirmed ?Last Taken ?Type lovastatin 20 mg tablet 20 mg PO BEDTIME 03/23/20 04/01/24 03/31/24 History ropinirole 0.25 mg tablet 0.25 mg PO BEDTIME 03/23/20 04/01/24 03/31/24 History omeprazole 20 mg capsule,delayed 40 mg PO DAILY@0630 11/21/20 04/01/24 03/31/24 History release latanoprost 0.005 % eye drops 1 drp ophthalmic (eye) BEDTIME 06/15/23 04/01/24 03/31/24 History lidocaine 5 % topical patch 1 patch topical DAILY PRN Pain 06/15/23 04/01/24 Unknown History ondansetron 4 mg disintegrating 4 mg PO DAILY PRN Nausea And 06/15/23 04/01/24 Unknown History tablet Vomiting oxycodone-acetaminophen 5 mg-325 1 tab PO TID PRN Pain 06/15/23 04/01/24 Unknown History mg tablet (Percocet) food supplemt, lactose-reduced 1 ea PO DAILY 10/29/23 04/01/24 Unknown History metoprolol tartrate 25 mg tablet 12.5 mg PO BID 04/01/24 04/01/24 03/31/24 History naloxone 4 mg/actuation nasal spray 4 mg intranasal Q3M PRN Opioid 04/01/24 04/01/24 Unknown History Reversal Physical Exam Vital Signs: Vital Signs: Last Vital Signs Temp 99.4 F 04/03/24 19:47 Pulse 74 04/03/24 19:47 Resp 21 H 04/03/24 19:47 BP 135/64 04/03/24 19:47 Pulse Ox 97 04/03/24 19:47 O2 Del Method Room Air 04/03/24 19:47 BMI result Body Mass Index 25.1 Const: General: cooperative HEENT: Head: Yes normal to inspection Face and sinus: Yes normal facial exam Mouth: Normal oral and palatal mucosa present Teeth and gingiva: dentition normal Eyes: General: appearance normal, both eyes and all related structures Pupils: Equal, round and reactive pupils present Resp: Effort & Inspection: normal respiratory effort Cardio: Rate: regular rate Rhythm: regular rhythm GI: Palpation (GI): Soft to palpation and nontender : Other: scrotal area covered in blood ,swelling, no specific pain or erythema General: Yes no CVA tenderness Back/Spine/Pelvis: Back: no CVA tenderness Skin: General skin exam: no rashes or lesions noted Neuro: General: moves all extremities Cranial nerves: Yes Equal, round and reactive pupils present Extrem: General: Yes normal to inspection Psych: Appearance: grossly normal Results Labs 04/03/24 07:10 04/03/24 07:10 Labs: Short CBC 04/03/24 Range/Units 07:10 WBC 5.4 (4.8-10.8) X10*3/uL Hgb 11.3 L (14.0-18.0) g/dl Hct 33.9 L (42.0-52.0) % Plt Count 210 (160-400) X10*3/uL BMP 04/03/24 07:10 Sodium 134 L Potassium 4.0 Chloride 101 Carbon Dioxide 25 BUN 11 Creatinine 0.78 Calcium 7.8 L D Assessment and Plan (1) COVID: Status: Acute (2) Bladder mass: Status: Acute (3) Cellulitis: Qualifiers: Laterality: left Site of cellulitis: extremity Site of cellulitis of extremity: upper extremity Qualified Code(s): L03.114 - Cellulitis of left upper limb Status: Acute Plan I do not see any clinical signs of Fourniers gangrene at this time. There is no toxicity with no fever,severe pain or cellulitis,just swelling and CT scan read indicating that. Swelling may not be due to infection also. He has hematuria and potential bladder mass. Suggest May continue Daptomycin and Clindamycin and Zosyn overnight but if no bacteremia by morning and not worsening or have temperature or leukocytosis then stop Daptomycin and Clindamycin and continue Zosyn and await cultures. Urology to see when bleeding improved Possbly leave when improved on Augmentin
[2024-04-03] MEDS: rOPINIRole HCL 0.25 MG TABLET PO (22:28)
[2024-04-04] MEDS: Clindamycin Phosphate/D5W 600 MG/50 ML PIGGYBACK 100 MG IV ×3 (01:31→16:25)
[2024-04-04] MEDS: Piperacillin Sodium/Tazobactam 3.375 GM in 0.9 % Sodium Chloride 50 ML IV ×4 (02:02→20:20)
[2024-04-04] MEDS: Lactated Ringers 1,000 ML 100 ML IVCONT ×3 (02:08→23:18)
[2024-04-04] MEDS: HYDROmorphone HCl 1 MG/ML SYRINGE IVPUSH ×7 (02:59→23:18)
[2024-04-04] MEDS: oxyCODONE HCl Immed Release 5 MG TABLET PO ×3 (03:01→19:40)
[2024-04-04 03:56] VITALS: BP 121/60; PULSE 85; RESP 19; TEMP 37.4; O2SAT 95
[2024-04-04] MEDS: vancomycin HCL 125 MG CAPSULE PO ×3 (06:03→17:36)
[2024-04-04] MEDS: Omeprazole 40 MG CAPSULE.DR PO (06:03)
[2024-04-04 08:00] VITALS: BP 139/66; PULSE 74; RESP 20; TEMP 37.1; O2SAT 95
[2024-04-04] MEDS: Dronedarone HCl 400 MG TABLET PO ×2 (08:25→20:47)
[2024-04-04] MEDS: 0.9 % Sodium Chloride Flush 3 ML SYRINGE IVFLUSH ×2 (08:37→16:28)
--- NOTE | 2024-04-04 10:31 | P.PNIM_ITS ---
Subjective Subjective Date of Service: 04/04/24 Interval History: retaining urine yesterday afternoon so urologist placed Rasmussen and pt now on CBI bruising/swelling of scrotum no fever no cough Review of Systems Review of Systems: Yes all other systems are reviewed and are negative Physical Exam 2 Vital Signs: Vital Signs: Last Vital Signs Temp 98.7 F 04/04/24 08:00 Pulse 74 04/04/24 08:00 Resp 20 04/04/24 08:00 BP 139/66 04/04/24 08:00 Pulse Ox 95 04/04/24 08:00 O2 Del Method Room Air 04/04/24 08:00 BMI result Body Mass Index 25.1 Gen: in no acute distress HEENT: sclera anicteric, moist mucus membranes Neck: supple Lungs: clear to auscultation bilaterally Heart: regular rate and rhythm, no murmurs Abd: soft, non-tender, non-distended : extensive scrotal/perineal swelling with dark discoloration, Rasmussen with CBI with punch-colored fluid Ext: no edema Skin: warm/well-perfused Neuro: alert and oriented x3, no focal findings Psych: appropriate affect Objective Data Active Medications Acetaminophen (Acetaminophen 325 Mg Tablet) 650 mg PO Q6H PRN PRN Reason: Pain, Mild (Pain Scale 1-3), fever or headache Calcium Carbonate (Calcium Carbonate 750 Mg Tab.Chew) 750 mg PO Q4H PRN PRN Reason: Heartburn Dronedarone (Dronedarone Hcl 400 Mg Tablet) 400 mg PO BID [facility] Last Admin: 04/04/24 08:25 Dose: 400 mg Documented By: BLAYNE Hydromorphone HCl (Hydromorphone Hcl 1 Mg/Ml Syringe) 1 mg IVPUSH Q3H PRN; Protocol PRN Reason: Pain, Severe (Pain Scale 7-10) Last Admin: 04/04/24 09:57 Dose: 1 mg Documented By: BLAYNE Piperacillin Sod/Tazobactam (Sod 3.375 gm/ Sodium Chloride) 50 mls @ 100 mls/hr IV Q6H [facility] Last Infusion: 04/04/24 09:52 Dose: Infused Documented By: BLAYNE Daptomycin 500 mg/ Sodium (Chloride) 60 mls @ 100.325 mls/hr IV Q24H [facility] Last Infusion: 04/03/24 12:14 Dose: Infused Documented By: JIMBO Clindamycin Phosphate (Cleocin) 600 mg in 50 mls @ 100 mls/hr IV Q8H [facility] Last Infusion: 04/04/24 09:52 Dose: Infused Documented By: BLAYNE Lactated Ringer's (Lr) 1,000 mls @ 100 mls/hr IVCONT .Q10H [facility] Last Admin: 04/04/24 02:08 Dose: 100 mls/hr Documented By: ANCA Latanoprost (Latanoprost 0.005 % Ophth Yuly 2.5 Ml Drops) 1 drop EYE-BOTH BEDTIME [facility] Last Admin: 04/03/24 22:50 Dose: 1 drop Documented By: JACI Magnesium Hydroxide (Milk Of Magnesia 30 Ml Oral.Susp) 30 ml PO DAILY PRN PRN Reason: Constipation Melatonin (Melatonin 3 Mg Tablet) 6 mg PO BEDTIME PRN PRN Reason: Insomnia Omeprazole (Omeprazole 40 Mg Capsule.) 40 mg PO DAILY@0630 [facility] Last Admin: 04/04/24 06:03 Dose: 40 mg Documented By: ANCA Ondansetron HCl (Ondansetron Hcl 4 Mg/2 Ml Vial) 4 mg IVPUSH Q8H PRN PRN Reason: Nausea and Vomiting Oxycodone HCl (Oxycodone Hcl Immed Release 5 Mg Tablet) 5 mg PO TID PRN PRN Reason: Pain Last Admin: 04/04/24 08:29 Dose: 5 mg Documented By: BLAYNE Pravastatin Sodium (Pravastatin Sodium 20 Mg Tablet) 20 mg PO DAILY [facility] Ropinirole HCl (Ropinirole Hcl 0.25 Mg Tablet) 0.25 mg PO BEDTIME [facility] Last Admin: 04/03/24 22:28 Dose: 0.25 mg Documented By: JACI Sodium Chloride (0.9 % Sodium Chloride Flush 3 Ml Syringe) 3 ml IVFLUSH QSHIFT [facility] Last Admin: 04/04/24 08:37 Dose: 3 ml Documented By: BLAYNE Vancomycin HCl (Vancomycin Hcl 125 Mg Capsule) 125 mg PO Q6H [facility] Last Admin: 04/04/24 06:03 Dose: 125 mg Documented By: ANCA Labs 04/03/24 07:10 04/03/24 07:10 Assessment and Plan (1) Hematuria: Status: Acute Plan d5 for 73yo M with prostate CA s/p XRT, pAF on apixaban, RLS, chronic pain presenting with hematuria and also to have Covid-19 without hypoxia 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 ID consulted. Urology following. Last Eliquis was 03/31/24 and waiting at least 5 days for operative intervention due to risk of bleeding from irradiated bladder sclerotic iliac lesion - suspicion for metastatic prostate CA, will need Oncology outpatient follow-up hypoNa - corrected at appropriate rate Covid-19 infection - not hypoxic; no specific therapy indicated unless he becomes hypoxic pAF - hold apixaban; will eventually need to go on warfarin or have Watchman device - continue dronedarone RLS - continue ropinirole HLD - continue statin GERD - continue PPI chronic pain - prn oxycodone, IV hydromorphone for acute pain VTE ppx - SCDs; hold apixaban dispo - eventual home In my clinical judgment, the patient requires continued inpatient hospitalization for the following reasons: IV ABX, operative intervention Total time managing care of this patient today: 45 minutes. Quality Stroke Does the patient have a stroke diagnosis?: No VTE Prior VTE?: No VTE Risk Level:: Medical - moderate - high VTE Device Contraindication: N/A - Device Ordered VTE Drug Contraindication: Treatment Not Indicated
[2024-04-04] MEDS: DAPTOmycin 500 MG in 0.9 % Sodium Chloride 50 ML 100.33 MG IV (10:48)
[2024-04-04 11:17] LABS: Hematocrit 30.8 % (42.0-52.0); Hemoglobin 10.6 g/dl (14.0-18.0); Mean Corpuscular HGB Conc 34.4 g/dl (31.0-36.0); Mean Corpuscular Hemoglobin 29.4 pg (27.0-33.0); Mean Corpuscular Volume 85.6 fL (80.0-98.0); Mean Platelet Volume 9.5 fL (9.4-12.4); Platelet Count 190 X10*3/uL (160-400); Red Cell Distribution Width 11.9 % (11.0-16.0)
[2024-04-04 11:33] LABS: Anion Gap 12 (12-20); Blood Urea Nitrogen 8 mg/dL (9-16); C Reactive Protein 4.27 mg/dL (< or = 0.50); Calcium 8.4 mg/dL (8.4-10.2); Carbon Dioxide 26 mmol/L (22-29); Chloride 100 mmol/L (96-108); Creatinine Clr Calc Pharmacy 84.1; Estimated Glomerular Filt Rate > 60; Glucose Random 101 mg/dL (60-115); Potassium 3.5 mmol/L (3.3-5.1); Sodium 134 mmol/L (135-145)
[2024-04-04 11:44] VITALS: BP 145/64; PULSE 75; RESP 18; TEMP 36.7; O2SAT 95
[2024-04-04 11:57] LABS: HBc Num1 0.15 S/CO (0.00-0.79); HIV AB/AG Nonreactive (Nonreactive); HIV Num 1 0.11 S/CO (0.00-0.99); Hepatitis A Antibody IgM 0.18 Index (0-0.79); Hepatitis B Core Antibody Nonreactive (Nonreactive); Hepatitis B Surface Antigen Negative (Negative); ~HepC Num1 0.09 S/CO (0.00-0.79); ~Hepatitis A Antibody IgM Nonreactive (Nonreactive); ~Hepatitis B Surface Antibody NONREACTIVE (Nonreactive); ~Hepatitis C Antibody Nonreactive (Nonreactive)
[2024-04-04 15:42] VITALS: BP 160/74; PULSE 75; RESP 17; TEMP 36.6; O2SAT 95
[2024-04-04] MEDS: Acetaminophen 325 MG TABLET 650 MG PO (19:39)
[2024-04-04 19:46] VITALS: BP 145/67; PULSE 76; RESP 17; TEMP 36.6; O2SAT 97
[2024-04-04] MEDS: rOPINIRole HCL 0.25 MG TABLET PO (20:47)
[2024-04-04 23:58] VITALS: BP 147/65; PULSE 67; RESP 17; TEMP 36.3; O2SAT 96
[2024-04-05] MEDS: vancomycin HCL 125 MG CAPSULE PO ×5 (00:48→22:41)
[2024-04-05] MEDS: Clindamycin Phosphate/D5W 600 MG/50 ML PIGGYBACK 100 MG IV ×3 (00:48→16:16)
[2024-04-05] MEDS: Piperacillin Sodium/Tazobactam 3.375 GM in 0.9 % Sodium Chloride 50 ML IV ×4 (02:29→19:39)
[2024-04-05] MEDS: HYDROmorphone HCl 1 MG/ML SYRINGE IVPUSH ×7 (03:10→22:55)
[2024-04-05 03:58] VITALS: BP 130/65; PULSE 70; RESP 18; TEMP 36.9; O2SAT 97
[2024-04-05] MEDS: Omeprazole 40 MG CAPSULE.DR PO (06:04)
[2024-04-05] MEDS: Lactated Ringers 1,000 ML 100 ML IVCONT (06:04)
--- NOTE | 2024-04-05 06:31 | PC.NURSE ---
Addendum entered by Rita Pearson RN 04/05/24 06:41: CBI changed every 30-40 minutes Original Note: CBI Wide open all shift, flowing freely no issues, punch colored urine in bag, no clots, pt reports no increased pain or spasms.
[2024-04-05 06:50] LABS: Hematocrit 28.7 % (42.0-52.0); Hemoglobin 9.9 g/dl (14.0-18.0); Mean Corpuscular HGB Conc 34.5 g/dl (31.0-36.0); Mean Corpuscular Hemoglobin 29.9 pg (27.0-33.0); Mean Corpuscular Volume 86.7 fL (80.0-98.0); Mean Platelet Volume 9.6 fL (9.4-12.4); Platelet Count 188 X10*3/uL (160-400); Red Blood Count 3.31 X10*6/uL (4.60-5.80); Red Cell Distribution Width 11.8 % (11.0-16.0); White Blood Count 8.1 X10*3/uL (4.8-10.8)
[2024-04-05 07:10] LABS: Anion Gap 13 (12-20); Blood Urea Nitrogen 7 mg/dL (9-16); Calcium 8.2 mg/dL (8.4-10.2); Carbon Dioxide 25 mmol/L (22-29); Chloride 101 mmol/L (96-108); Creatinine Clr Calc Pharmacy 89.6; Estimated Glomerular Filt Rate > 60; Glucose Random 82 mg/dL (60-115); Potassium 3.8 mmol/L (3.3-5.1); Sodium 135 mmol/L (135-145)
[2024-04-05] MEDS: 0.9 % Sodium Chloride Flush 3 ML SYRINGE IVFLUSH ×3 (07:32→19:43)
[2024-04-05] MEDS: oxyCODONE HCl Immed Release 5 MG TABLET PO ×2 (07:32→22:40)
[2024-04-05] MEDS: Acetaminophen 325 MG TABLET 650 MG PO (07:32)
[2024-04-05 08:00] VITALS: BP 157/70; PULSE 84; RESP 19; TEMP 36.7; O2SAT 93
[2024-04-05] MEDS: Dronedarone HCl 400 MG TABLET PO ×2 (08:29→19:42)
--- NOTE | 2024-04-05 09:26 | HO.PM.IMPN ---
Subjective Subjective Date of Service: 04/05/24 Interval History: no fever scrotal swelling improved Review of Systems Review of Systems: Yes all other systems are reviewed and are negative Physical Exam Vital Signs: Vital Signs: Last Vital Signs Temp 98.0 F 04/05/24 08:00 Pulse 84 04/05/24 08:00 Resp 19 04/05/24 08:00 BP 157/70 H 04/05/24 08:00 Pulse Ox 93 04/05/24 08:00 O2 Del Method Room Air 04/05/24 08:00 BMI result Body Mass Index 25.1 Gen: in no acute distress HEENT: sclera anicteric, moist mucus membranes Neck: supple Lungs: clear to auscultation bilaterally Heart: regular rate and rhythm, no murmurs Abd: soft, non-tender, non-distended : improvement in scrotal swelling with bruising, Rasmussen with CBI with punch-colored fluid Ext: no edema Skin: warm/well-perfused Neuro: alert and oriented x3, no focal findings Psych: appropriate affect Objective Data Active Medications Acetaminophen (Acetaminophen 325 Mg Tablet) 650 mg PO Q6H PRN PRN Reason: Pain, Mild (Pain Scale 1-3), fever or headache Last Admin: 04/05/24 07:32 Dose: 650 mg Documented By: HUGO Calcium Carbonate (Calcium Carbonate 750 Mg Tab.Chew) 750 mg PO Q4H PRN PRN Reason: Heartburn Dronedarone (Dronedarone Hcl 400 Mg Tablet) 400 mg PO BID [facility] Last Admin: 04/05/24 08:29 Dose: 400 mg Documented By: HUGO Hydromorphone HCl (Hydromorphone Hcl 1 Mg/Ml Syringe) 1 mg IVPUSH Q3H PRN; Protocol PRN Reason: Pain, Severe (Pain Scale 7-10) Last Admin: 04/05/24 06:20 Dose: 1 mg Documented By: REMI Piperacillin Sod/Tazobactam (Sod 3.375 gm/ Sodium Chloride) 50 mls @ 100 mls/hr IV Q6H [facility] Last Admin: 04/05/24 08:28 Dose: 100 mls/hr Documented By: HUGO Daptomycin 500 mg/ Sodium (Chloride) 60 mls @ 100.325 mls/hr IV Q24H [facility] Last Infusion: 04/04/24 11:46 Dose: Infused Documented By: BLAYNE Clindamycin Phosphate (Cleocin) 600 mg in 50 mls @ 100 mls/hr IV Q8H [facility] Last Infusion: 04/05/24 01:24 Dose: Infused Documented By: REMI Latanoprost (Latanoprost 0.005 % Ophth Yuly 2.5 Ml Drops) 1 drop EYE-BOTH BEDTIME [facility] Last Admin: 04/04/24 23:23 Dose: Not Given Documented By: REMI Non-Admin Reason: Med Not Available Magnesium Hydroxide (Milk Of Magnesia 30 Ml Oral.Susp) 30 ml PO DAILY PRN PRN Reason: Constipation Melatonin (Melatonin 3 Mg Tablet) 6 mg PO BEDTIME PRN PRN Reason: Insomnia Omeprazole (Omeprazole 40 Mg Capsule.Dr) 40 mg PO DAILY@0630 [facility] Last Admin: 04/05/24 06:04 Dose: 40 mg Documented By: REMI Ondansetron HCl (Ondansetron Hcl 4 Mg/2 Ml Vial) 4 mg IVPUSH Q8H PRN PRN Reason: Nausea and Vomiting Oxycodone HCl (Oxycodone Hcl Immed Release 5 Mg Tablet) 5 mg PO TID PRN PRN Reason: Pain Last Admin: 04/05/24 07:32 Dose: 5 mg Documented By: HUGO Pravastatin Sodium (Pravastatin Sodium 20 Mg Tablet) 20 mg PO DAILY [facility] Ropinirole HCl (Ropinirole Hcl 0.25 Mg Tablet) 0.25 mg PO BEDTIME [facility] Last Admin: 04/04/24 20:47 Dose: 0.25 mg Documented By: REMI Sodium Chloride (0.9 % Sodium Chloride Flush 3 Ml Syringe) 3 ml IVFLUSH QSHIFT [facility] Last Admin: 04/05/24 07:32 Dose: 3 ml Documented By: HUGO Vancomycin HCl (Vancomycin Hcl 125 Mg Capsule) 125 mg PO Q6H [facility] Last Admin: 04/05/24 06:04 Dose: 125 mg Documented By: REMI Labs 04/05/24 06:32 04/05/24 06:32 Labs: Laboratory Results - last 24 hr 04/04/24 04/05/24 11:09 06:32 MCV 85.6 86.7 MCH 29.4 29.9 MCHC 34.4 34.5 RDW 11.9 11.8 Plt Count 190 188 MPV 9.5 9.6 Absolute Nucleated RBC 0.000 0.000 Nucleated RBC % (auto) 0.0 0.0 Anion Gap 12 13 Estim Creat Clear Calc 84.1 89.6 Estimated GFR > 60 > 60 Random Glucose 101 82 Calcium 8.4 D 8.2 L C-Reactive Protein 4.27 H Hepatitis A IgM Ab Nonreactive Hep Bs Antigen Negative Hep Bs Antibody NONREACTIVE Hep B Core Total Ab Nonreactive Hepatitis C Ab (EIA) Nonreactive HIV 1&2 Ab/P24 Ag 4thGn Nonreactive Assessment and Plan (1) Hematuria: Status: Acute Plan d6 for 73yo M with prostate CA s/p XRT, pAF on apixaban, RLS, chronic pain presenting with hematuria and also to have Covid-19 without hypoxia 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 ID consulted. Urology following. Last Eliquis was 03/31/24 and waiting at least 5 days for operative intervention due to risk of bleeding from irradiated bladder; NPO after midnight for possible OR tomorrow sclerotic iliac lesion - suspicion for metastatic prostate CA, will need Oncology outpatient follow-up hypoNa, resolved - corrected at appropriate rate Covid-19 infection - not hypoxic; no specific therapy indicated unless he becomes hypoxic pAF - disctoninued apixaban; will eventually need to go on warfarin or have Watchman device given irradiated bladder at high risk of rebleeding - continue dronedarone; NOT on metoprolol tartrate due to hx excess bradycardia RLS - continue ropinirole HLD - continue statin GERD - continue PPI chronic pain - prn oxycodone, IV hydromorphone for acute pain VTE ppx - SCDs; hold apixaban dispo - eventual home In my clinical judgment, the patient requires continued inpatient hospitalization for the following reasons: IV ABX, operative intervention Total time managing care of this patient today: 45 minutes. Quality Stroke Does the patient have a stroke diagnosis?: No VTE Prior VTE?: No VTE Risk Level:: Medical - moderate - high VTE Device Contraindication: N/A - Device Ordered VTE Drug Contraindication: Treatment Not Indicated
[2024-04-05] MEDS: DAPTOmycin 500 MG in 0.9 % Sodium Chloride 50 ML 100.33 MG IV (10:33)
[2024-04-05 11:40] VITALS: BP 125/54; PULSE 61; RESP 19; TEMP 36.2; O2SAT 96
[2024-04-05 15:53] VITALS: BP 134/56; PULSE 73; RESP 19; TEMP 36.9; O2SAT 97
--- NOTE | 2024-04-05 16:54 | P.PNUR_ITS ---
Subjective Subjective Date of Service: 04/05/24 Interval history: Slowly resolving hematuria Eliquis reversing Adjust CBI so urine remains tinged but without clots Physical Exam 2 Vital Signs: Vital Signs: Last Vital Signs Temp 98.5 F 04/05/24 15:53 Pulse 73 04/05/24 15:53 Resp 19 04/05/24 15:53 BP 134/56 L 04/05/24 15:53 Pulse Ox 97 04/05/24 15:53 O2 Del Method Room Air 04/05/24 15:53 BMI result Body Mass Index 25.1 Const: General: cooperative, healthy appearing, comfortable and no acute distress Orientation/consciousness: patient oriented x3 HEENT: Face and sinus: Yes normal facial exam Mouth: moist mucous membranes Neck: Neck: Yes normal visual inspection, Yes full ROM and Yes trachea midline Chest: Chest palpation & inspection: normal inspection of the chest Resp: Effort & Inspection: normal respiratory effort, able to speak in complete sentences and no respiratory distress GI: Inspection: Yes normal to inspection Back/Spine/Pelvis: Cervical Spine: normal cervical lordosis Thoracic/Lumbar Spine: thoracic and lumbar spine normal to inspection Skin: General skin exam: no rashes or lesions noted Neuro: General: patient oriented x3, tone normal and moves all extremities Extrem: General: Yes normal to inspection and Yes capillary refill normal Urology Results Labs 04/05/24 06:32 04/05/24 06:32 Labs: Laboratory Results - last 24 hr 04/05/24 06:32 WBC 8.1 RBC 3.31 L Hgb 9.9 L Hct 28.7 L MCV 86.7 MCH 29.9 MCHC 34.5 RDW 11.8 Plt Count 188 MPV 9.6 Absolute Nucleated RBC 0.000 Nucleated RBC % (auto) 0.0 Sodium 135 Potassium 3.8 Chloride 101 Carbon Dioxide 25 Anion Gap 13 BUN 7 L Creatinine 0.77 Estim Creat Clear Calc 89.6 Estimated GFR > 60 Random Glucose 82 Calcium 8.2 L Progress Note: A&P Assessment and plan (1) Prostate cancer: Status: Acute (2) Hematuria: Status: Acute Plan DC Rasmussen catheter once free from hematuria for 24-36 hours Outpatient cystoscopy to review bladder Time Spent With Patient Time: Total time managing care of this patient today ____ minutes. Progress Note: Quality Stroke Does the patient have a stroke diagnosis?: No
[2024-04-05] MEDS: rOPINIRole HCL 0.25 MG TABLET PO (19:43)
[2024-04-05] MEDS: Latanoprost 0.005 % Ophth Sol 2.5 ML DROPS 1 DROP EYE-BOTH (19:44)
[2024-04-05 19:51] VITALS: BP 143/64; PULSE 85; RESP 17; TEMP 36.3; O2SAT 98
[2024-04-05 23:46] VITALS: BP 135/63; PULSE 74; RESP 14; TEMP 36.6; O2SAT 95
[2024-04-06] VITALS (9 sets, daily range): BP systolic 126–150; BP diastolic 58–67; PULSE 66–87; RESP 14–22; TEMP 36.1–37.9; O2SAT 93–99
[2024-04-06] MEDS: Clindamycin Phosphate/D5W 600 MG/50 ML PIGGYBACK 100 MG IV ×2 (01:35→09:24)
[2024-04-06] MEDS: Piperacillin Sodium/Tazobactam 3.375 GM in 0.9 % Sodium Chloride 50 ML IV ×2 (01:37→09:23)
[2024-04-06] MEDS: HYDROmorphone HCl 1 MG/ML SYRINGE IVPUSH ×5 (03:37→20:37)
[2024-04-06] MEDS: Dronedarone HCl 400 MG TABLET PO ×2 (09:24→20:16)
[2024-04-06] MEDS: 0.9 % Sodium Chloride Flush 3 ML SYRINGE IVFLUSH ×3 (09:24→20:38)
[2024-04-06] MEDS: Cyclobenzaprine HCl 5 MG TABLET PO (09:58)
[2024-04-06] MEDS: oxyCODONE HCl Immed Release 5 MG TABLET PO ×2 (09:58→17:11)
[2024-04-06] MEDS: DAPTOmycin 500 MG in 0.9 % Sodium Chloride 50 ML 100.33 MG IV (10:37)
[2024-04-06] MEDS: vancomycin HCL 125 MG CAPSULE PO (11:20)
--- NOTE | 2024-04-06 11:40 | P.PNIM_ITS ---
Subjective Subjective Date of Service: 04/06/24 Interval History: swelling of scrotum improved CBI still draining bloody urine no fever Review of Systems Review of Systems: Yes all other systems are reviewed and are negative Physical Exam 2 Vital Signs: Vital Signs: Last Vital Signs Temp 98.1 F 04/06/24 07:52 Pulse 68 04/06/24 07:52 Resp 16 04/06/24 07:52 BP 129/62 04/06/24 07:52 Pulse Ox 95 04/06/24 07:52 O2 Del Method Room Air 04/06/24 07:52 BMI result Body Mass Index 25.1 Gen: in no acute distress HEENT: sclera anicteric, moist mucus membranes Neck: supple Lungs: clear to auscultation bilaterally Heart: regular rate and rhythm, no murmurs Abd: soft, non-tender, non-distended : improvement in scrotal swelling with bruising, [place] with CBI with punch- colored fluid Ext: no edema Skin: warm/well-perfused Neuro: alert and oriented x3, no focal findings Psych: appropriate affect Objective Data Active Medications Acetaminophen (Acetaminophen 325 Mg Tablet) 650 mg PO Q6H PRN PRN Reason: Pain, Mild (Pain Scale 1-3), fever or headache Last Admin: 04/05/24 07:32 Dose: 650 mg Documented By: HUGO Calcium Carbonate (Calcium Carbonate 750 Mg Tab.Chew) 750 mg PO Q4H PRN PRN Reason: Heartburn Dronedarone (Dronedarone Hcl 400 Mg Tablet) 400 mg PO BID [facility] Last Admin: 04/06/24 09:24 Dose: 400 mg Documented By: BLAYNE Hydromorphone HCl (Hydromorphone Hcl 1 Mg/Ml Syringe) 1 mg IVPUSH Q3H PRN; Protocol PRN Reason: Pain, Severe (Pain Scale 7-10) Last Admin: 04/06/24 06:45 Dose: 1 mg Documented By: MACKENZIE Piperacillin Sod/Tazobactam (Sod 3.375 gm/ Sodium Chloride) 50 mls @ 100 mls/hr IV Q6H [facility] Last Infusion: 04/06/24 09:56 Dose: Infused Documented By: BLAYNE Daptomycin 500 mg/ Sodium (Chloride) 60 mls @ 100.325 mls/hr IV Q24H [facility] Last Infusion: 04/06/24 11:15 Dose: Infused Documented By: BLAYNE Clindamycin Phosphate (Cleocin) 600 mg in 50 mls @ 100 mls/hr IV Q8H [facility] Last Infusion: 04/06/24 09:55 Dose: Infused Documented By: BLAYNE Latanoprost (Latanoprost 0.005 % Ophth Yuly 2.5 Ml Drops) 1 drop EYE-BOTH BEDTIME [facility] Last Admin: 04/05/24 19:44 Dose: 1 drop Documented By: MACKENZIE Magnesium Hydroxide (Milk Of Magnesia 30 Ml Oral.Susp) 30 ml PO DAILY PRN PRN Reason: Constipation Melatonin (Melatonin 3 Mg Tablet) 6 mg PO BEDTIME PRN PRN Reason: Insomnia Omeprazole (Omeprazole 40 Mg Capsule.Dr) 40 mg PO DAILY@0630 [facility] Last Admin: 04/06/24 03:40 Dose: Not Given Documented By: MACKENZIE Non-Admin Reason: NPO Ondansetron HCl (Ondansetron Hcl 4 Mg/2 Ml Vial) 4 mg IVPUSH Q8H PRN PRN Reason: Nausea and Vomiting Oxycodone HCl (Oxycodone Hcl Immed Release 5 Mg Tablet) 5 mg PO TID PRN PRN Reason: Pain Last Admin: 04/06/24 09:58 Dose: 5 mg Documented By: BLAYNE Pravastatin Sodium (Pravastatin Sodium 20 Mg Tablet) 20 mg PO DAILY [facility] Ropinirole HCl (Ropinirole Hcl 0.25 Mg Tablet) 0.25 mg PO BEDTIME [facility] Last Admin: 04/05/24 19:43 Dose: 0.25 mg Documented By: MACKENZIE Sodium Chloride (0.9 % Sodium Chloride Flush 3 Ml Syringe) 3 ml IVFLUSH QSHIFT [facility] Last Admin: 04/06/24 09:24 Dose: 3 ml Documented By: BLAYNE Vancomycin HCl (Vancomycin Hcl 125 Mg Capsule) 125 mg PO Q6H [facility] Last Admin: 04/06/24 11:20 Dose: 125 mg Documented By: BLAYNE Labs 04/05/24 06:32 04/05/24 06:32 Assessment and Plan (1) Hematuria: Status: Acute Plan d7 for 73yo M with prostate CA s/p XRT, pAF on apixaban, RLS, chronic pain presenting with hematuria and also to have Covid-19 without hypoxia 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 ID consulted. Urology following. Last Eliquis was 03/31/24 and waiting at least 5 days for operative intervention due to risk of bleeding from irradiated bladder; NPO for possible OR. Will d/c antibiotics; per Urology, thought to have bruising/swelling rather than Neymar's gangrene sclerotic iliac lesion - suspicion for metastatic prostate CA, will need Oncology outpatient follow-up hypoNa, resolved - corrected at appropriate rate Covid-19 infection - not hypoxic; no specific therapy indicated unless he becomes hypoxic pAF - discontinued apixaban; will eventually need to go on warfarin or have Watchman device given irradiated bladder at high risk of rebleeding - continue dronedarone; NOT on metoprolol tartrate due to hx of excess bradycardia RLS - continue ropinirole HLD - continue statin GERD - continue PPI chronic pain - prn oxycodone, IV hydromorphone for acute pain VTE ppx - SCDs; hold apixaban dispo - eventual home In my clinical judgment, the patient requires continued inpatient hospitalization for the following reasons: IV ABX, operative intervention Total time managing care of this patient today: 35 minutes. Quality Stroke Does the patient have a stroke diagnosis?: No VTE Prior VTE?: No VTE Risk Level:: Medical - moderate - high VTE Device Contraindication: N/A - Device Ordered VTE Drug Contraindication: Treatment Not Indicated
[2024-04-06] MEDS: Hum Prothrombin Cplx(PCC)4Fact 2,000 UNIT in Container,Empty 0 ML 480 UNIT IV (18:44)
[2024-04-06] MEDS: rOPINIRole HCL 0.25 MG TABLET PO (20:16)
[2024-04-06] MEDS: Latanoprost 0.005 % Ophth Sol 2.5 ML DROPS 1 DROP EYE-BOTH (20:40)
[2024-04-07] VITALS (23 sets, daily range): BP systolic 74–155; BP diastolic 43–79; PULSE 77–164; RESP 17–20; TEMP 36.5–38; O2SAT 94–98
--- NOTE | 2024-04-07 | ECG_ITS ---
Test Reason : ST-T WAVE ABNORMALITY Blood Pressure : / mmHG Vent. Rate : 080 BPM Atrial Rate : 080 BPM P-R Int : 126 ms QRS Dur : 078 ms QT Int : 390 ms P-R-T Axes : 064 071 058 degrees QTc Int : 449 ms Sinus rhythm with Premature atrial complexes with Aberrant conduction T wave abnormality, consider anterolateral ischemia Abnormal ECG When compared with ECG of 07-APR-2024 15:08, No significant changes seen Referred By: Juliet Shelton Electronically Signed By:JULES AHUJA
--- NOTE | 2024-04-07 | ECG_ITS ---
Test Reason : tn elevation Blood Pressure : / mmHG Vent. Rate : 081 BPM Atrial Rate : 000 BPM P-R Int : 000 ms QRS Dur : 078 ms QT Int : 420 ms P-R-T Axes : 000 070 088 degrees QTc Int : 487 ms Artifact in tracing Normal sinus rhythm Premature atrial complexes Nonspecific ST and T wave abnormality Abnormal ECG When compared with ECG of 07-APR-2024 06:16, Vent. rate has decreased BY 91 BPM Rhythm change Improved ST depression Referred By: Juliet Shelton Electronically Signed By:JULES AHUJA
--- NOTE | 2024-04-07 | ECG_ITS ---
Test Reason : SVT Blood Pressure : / mmHG Vent. Rate : 172 BPM Atrial Rate : 000 BPM P-R Int : 000 ms QRS Dur : 162 ms QT Int : 264 ms P-R-T Axes : 000 076 073 degrees QTc Int : 446 ms Atrial fibrillation with rapid ventricular response Diffuse ST depression, consider ischemia Abnormal ECG When compared with ECG of 15-JUN-2023 18:20, Atrial fibrillation has replaced Sinus rhythm Vent. rate has increased BY 109 BPM QRS duration has increased ST now depressed in Inferior leads ST now depressed in Anterolateral leads Referred By: Era Burnette Electronically Signed By:JULES AHUJA
[2024-04-07] MEDS: HYDROmorphone HCl 1 MG/ML SYRINGE IVPUSH ×5 (00:33→20:32)
[2024-04-07] MEDS: Dronedarone HCl 400 MG TABLET PO (06:18)
--- NOTE | 2024-04-07 06:18 | PM.EVENT ---
Event Note Date of Service: 04/07/24 Event Note: Notified that pt went into rapid a fib with RVR on tele. He is asx, no SOB, palpitations or chest pain. has a hx of a fib on multaq and usually eliquis but has been holding due to gross hematuria. HR 160-170, BP 101/56, SBPs have been in the 140s. reheck BP 74/49, pt still alert and asx - stat EKG with rapid a fib with RVR, ST depression in the lateral leads - give multaq now and 1 dose metoprolol 5mg IV - BP low, given 1L NS bolus - check stat labs: CBC, lactic, trops Time Spent With Patient Time: Total time managing care of this patient today ____ minutes.
[2024-04-07] MEDS: Metoprolol Tartrate 5 MG/5 ML VIAL IVPUSH ×2 (06:25→17:50)
[2024-04-07] MEDS: 0.9 % Sodium Chloride 1,000 ML 999 ML IV (06:45)
[2024-04-07 06:55] LABS: MANUAL DIFF FLAG NO
[2024-04-07 06:58] LABS: Basophils Percent Auto 0.1 % (0-2); Eosinophils Absolute Auto 0.2 X10*3/uL (0.0-0.4); Eosinophils Percent Auto 1.4 % (0-4); Hematocrit 27.9 % (42.0-52.0); Hemoglobin 9.3 g/dl (14.0-18.0); Imm Gran Abs Auto 0.09 X10*3/uL (0.00-0.03); Imm Gran Pct Auto 0.6 % (0.0-0.4); Lymphocytes Absolute Auto 0.6 X10*3/uL (1.2-4.9); Lymphocytes Percent Auto 3.8 % (20-40); Mean Corpuscular HGB Conc 33.3 g/dl (31.0-36.0); Mean Corpuscular Volume 86.9 fL (80.0-98.0); Mean Platelet Volume 9.8 fL (9.4-12.4); Monocytes Absolute Auto 1.1 X10*3/uL (0.1-1.2); Monocytes Percent Auto 7.8 % (2-11); Neutrophils Absolute Auto 12.6 x10*3/uL (2.0-8.3); Neutrophils Percent Auto 86.3 % (45-73); Platelet Count 326 X10*3/uL (160-400); Red Blood Count 3.21 X10*6/uL (4.60-5.80); Red Cell Distribution Width 11.9 % (11.0-16.0); White Blood Count 14.6 X10*3/uL (4.8-10.8)
--- NOTE | 2024-04-07 07:00 | CA_ITS ---
Transthoracic Echocardiogram Patient (Last, First, Middle): Clifford Khan A Gender: Male Date of : 1950 Age: 73 Procedure Date: 04/07/2024 Procedure Type: Transthoracic Echocardiogram Location: [facility] – [place] Height: 180.34 cm Weight: 81.65 kg BSA: 2.02 m2 Heart Rate: 78 bpm BP: 98 / 76 mmHg Logistics Coordinator: ANDRESSA Referring MD: Juliet Shelton MD Symptoms: AF Study Quality: Adequate ECG Rhythm: Sinus with PACs Conclusions: - The left ventricular systolic function is low normal. The calculated ejection fraction is 52% by biplane method. - The basal inferolateral segment is hypokinetic. - No obvious valvular pathology seen on this study. Findings Left Ventricle Normal left ventricular cavity size. There is normal left ventricular wall thickness. The left ventricular systolic function is low normal. The calculated ejection fraction is 52% by biplane method. There is evidence of regional wall motion abnormalities. Diastolic function is normal for age. LV peak GLS -17.4%. Wall Motion Rest Echo Findings The basal inferolateral segment is hypokinetic. Right Ventricle Normal right ventricular cavity size and systolic function. Atria Both atria are normal in size. Aortic Valve There is a normal trileaflet aortic valve. There is no aortic valve stenosis. There is no aortic valve regurgitation. Mitral Valve The mitral valve appears normal. There is no mitral valve regurgitation. There is no mitral valve stenosis. Pulmonic Valve The pulmonic valve is likely normal. Tricuspid Valve There is mild tricuspid valve regurgitation. Mild pulmonary hypertension is present. Great Vessels The asc aorta is normal in size. Venous The inferior vena cava is mildly dilated and collapses greater than 50% with inspiration. Pericardium/Pleural There is no evidence of pericardial effusion. Prior Study Comparison Changes noted compared to prior study dated: 06/17/2023. LVEF lower. Suggestion of basal infero-lateral hypokinesis noted in prior images, but not well visualized. Just prior to the current study, he was in atrial fibrillation with rapid rate, but had converted to sinus. Recommendations, Care & Conclusions No obvious valvular pathology seen on this study. Measurements 2D Linear Measurements IVSd: 0.94 0.6-0.9/0.6-1.0 cm LVIDd: 4.62 3.9-5.3/4.2-5.9 cm LVIDd Index: 2.29 2.4-3.2/2.2-3.1 cm/m2 LVIDs: 3.11 2.0-3.6 cm LVPWd: 0.99 0.7-1.1 cm LA Diam: 3.50 2.7-3.8/3.0-4.0 cm LAIDs Index: 1.73 1.5-2.3 cm/m2 LV Mass: 189.70 67-162/88-224 g LV Mass Index: 93.91 43-95/49-115 g/m2 LVOT Diam: 2.10 3.0+(-)1.3 cm 2D Systolic Function EF 4C: 45.10 >55% EF 2C: 60.20 >55% EF BiP: 52.40 >55% Mitral Valve MV Pk E: 0.69 MV PK A: 0.72 MV Decel Time: 241.00 E/A: 1.00 E'Lateral: 11.40 E'Medial: 9.90 E/E' Med: 7.00 E/E' Lat: 6.10 PHT: 71.00 MVA PHT: 3.10 Decel Woodruff: 2.87 Aortic Valve AoV Pk Luis: 1.31 AoV Mn Luis: 0.98 AoV VTI: 0.23 AoV Pk Grad: 7.00 Aov Mn Grad: 4.00 SANTOS Cont.VTI: 2.62 LVOT LVOT Pk Luis: 0.97 LVOT Mn Luis: 0.61 LVOT VTI: 0.17 LVOT Pk Grad: 4.00 LVOT Mn Grad: 2.00 LVOT Diam: 2.10 LVOT Area: 3.46 Diastolic Function MV Pk E: 0.69 MV Pk A: 0.72 E/A: 1.00 E'Medial: 9.90 E/E' Med: 7.00 E' Laterial: 11.40 E/E' Lat: 6.10 Right Ventricle TAPSE (mm): 26.20 TVS' Luis: 16.80 Tricuspid Valve TR Pk Luis: 2.81 TR Pk Grad: 32.00 RA Press: 8.00 RVSP: 40.00 Great Vessels Aorta Sinus of Valsalva: 3.50 2.0-3.5 cm Ao Asc: 3.30 2.1-3.4 cm Updated in Other Vendor System with Status of Final James Craft MD electronically signed on 04/07/2024 12:23:18 PM with status of Final
[2024-04-07 07:14] LABS: C Reactive Protein 8.13 mg/dL (< or = 0.50); Lactic Acid 1.6 mmol/L (0.5-2.0)
--- NOTE | 2024-04-07 07:20 | PC.NURSE ---
Pt transferred to [facility] from ICU at approx 2015 s/p Kcentra administration. Upon initial assessment- pt A&Ox4, calm/cooperative, WAHL. C/o neck pain, pt states from watching TV with neck crooked, heat pack applied per pt request. NSR with frequent PACs on tele, HR 60-80s, SBP 140s. CBI infusing without issue overnight, see I&O- urine mostly pink-tinged, denies bladder discomfort. At approx 0600- pt converted to SVT up to 160s on tele, pt denies any SOB/CP or N/V. PORTER Burnette notified- orders for EKG (confirming afib RVR), administer 0900 dose of Multaq 400 mg PO now and Lopressor 5 mg IVP, given per JUL. S/p administration, SBP down to 70s. PORTER notified- order for 1L NS IV bolus. Currently HR 140-150s, SBP 110s, bolus infusing- pt remains A&Ox4. Report given to oncoming RN and nursing electronics production supervisor aware of pt status. updated and at bedside. Bed locked in lowest position, call gastelum in reach. See EMR/flowsheet for further details.
[2024-04-07 07:22] LABS: Troponin-I High Sensitivity 11.7 ng/L (<3.5-35.0)
[2024-04-07 07:39] LABS: Anion Gap 16 (12-20)
[2024-04-07 07:44] LABS: Blood Urea Nitrogen 9 mg/dL (9-16); Calcium 8.5 mg/dL (8.4-10.2); Carbon Dioxide 23 mmol/L (22-29); Chloride 100 mmol/L (96-108); Estimated Glomerular Filt Rate > 60; Glucose Random 99 mg/dL (60-115); Magnesium 2.1 mg/dL (1.6-2.6); Potassium 3.5 mmol/L (3.3-5.1); Sodium 135 mmol/L (135-145)
[2024-04-07] MEDS: dilTIAZem HCL 50 MG/10 ML VIAL 15 MG IVPUSH (07:52)
[2024-04-07] MEDS: dilTIAZem HCL 125 MG in 0.9 % Sodium Chloride 100 ML 10 MG IVCONT (08:17)
[2024-04-07] MEDS: Amiodarone HCL 200 MG TABLET 400 MG PO (09:58)
[2024-04-07] MEDS: 0.9 % Sodium Chloride Flush 3 ML SYRINGE IVFLUSH ×3 (09:59→22:54)
--- NOTE | 2024-04-07 10:03 | P.CONCA_ITS ---
History of Present Illness History of Present Illness Date of Service: 04/07/24 Chief complaint: hematuria Narrative: This is a cardiology consultation regarding atrial fibrillation with rapid ventricular response. Generally seen by Dr. Segura in clinic. Last appointment in October of this year. He has a history of paroxysmal atrial flutter/sinus bradycardia per last office note. He is maintained on Multaq. Current admissions because of hematuria issues. In this context, he has been off anticoagulation for the last several days. This morning, it seems he developed atrial fibrillation with rapid ventricular response. Hence we are consulted. Patient states he feels okay he does not really feel any clear-cut cardiac symptoms. Home medication for atrial fibrillation seems to be Multaq and Eliquis. Per hospitalist, he will not be able to take Eliquis in the future due to bleeding. Review of Systems 2 Review of Systems: Yes all other systems are reviewed and are negative Constitutional: Constitutional: Reports as per HPI and Reports no additional constitutional complaints Eyes: Eyes: Reports as per HPI and Denies no additional eye complaints ENT: Denies system reviewed and no additional complaints, except as documented and Reports as per HPI Cardiovascular: Cardiovascular: Reports as per HPI, Reports no additional cardiovascular complaints, Denies acrocyanosis, Denies cool extremities, Denies chest pain, Denies leg edema, Denies lightheadedness, Denies palpitations and Denies dyspnea Respiratory: Respiratory: Reports as per HPI, Denies no additional respiratory complaints and Denies dyspnea Gastrointestinal: Gastrointestinal: Reports as per HPI and Denies no additional gastrointestinal complaints Genitourinary: Genitourinary: Reports no additional male genitourinary complaints and Reports as per HPI Musculoskeletal: Musculoskeletal: Reports no additional musculoskeletal complaints and Reports as per HPI Integumentary/Breasts: Skin/Breast: Reports system reviewed and no additional complaints, except as docu Neurologic: Reports system reviewed and no additional complaints, except as documented and Reports as per HPI Psychiatric: Psychiatric: Reports no additional psychiatric complaints and Reports as per HPI Endocrine: Endocrine: Reports no additional endocrine complaints, Reports as per HPI and Denies palpitations Hematologic/Lymphatic: Hematologic/Lymphatic: Reports no additional hematologic/lymphatic complaints and Reports as per HPI Allergic/Immunologic: Allergic/Immunologic: Reports no additional allergic/immunologic complaints and Reports as per HPI PMFSH Past Medical History Medical History Paroxysmal atrial flutter Atrial flutter with rapid ventricular response Restless leg syndrome Elevated cholesterol Upper GI bleed Barretts esophagus C. difficile colitis Ileus Abdominal pain Diarrhea Nausea & vomiting Lung nodule < 6cm on CT Small bowel obstruction Diaphragm injury Pelvis fracture Liver laceration Sciatica Family History Family History Mother Colon cancer Sister Pancreatic cancer Family history: reviewed and not pertinent Surgical History Surgical History History of prostate biopsy History of total left knee replacement (TKR) Hx of exploratory laparotomy History of exploratory laparotomy History of esophagogastroduodenoscopy (EGD) Hx of colonoscopy H/O ankle fusion H/O knee surgery Social History Social History Household Members: Spouse Housing: House Are you a primary palliative care specialist to a significant other at home: No Do you presently have visiting nurse or other home services: No Alcohol intake: current Alcohol intake frequency: a few times a month Alcohol type: beer 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 Tobacco Use Status: Former Tobacco user Tobacco use type: Cigarette Cigarette Packs Per Day: 1 Smoked in Last 30 Days: No Second Hand Smoke Exposure: No Use of substances other than those prescribed or required for medical reasons: No Substance Use Type: Marijuana Last Used Substance: Days (ago) Currently Displaying Signs/Symptoms of Drug Intoxication Withdrawal: No Advance Directives: Yes Advance Directives on File: Yes Advance Directives Date on File: 11/22/20 Do you have a plan to hurt others: No Plan Recently lost weight without trying: No Nutrition Risks: No Nutritional Risk service: Yes Current occupational status: disabled Meds Allergies Allergy/AdvReac Type Severity Reaction Status Date / Time Codeine Sulfate AdvReac Unknown vomiting Uncoded 03/31/24 16:06 Active Medications: Current Medications Acetaminophen (Acetaminophen 325 Mg Tablet) 650 mg PO Q6H PRN PRN Reason: Pain, Mild (Pain Scale 1-3), fever or headache Last Admin: 04/05/24 07:32 Dose: 650 mg Amiodarone HCl (Amiodarone Hcl 200 Mg Tablet) 400 mg PO BID DANNY Last Admin: 04/07/24 09:58 Dose: 400 mg Calcium Carbonate (Calcium Carbonate 750 Mg Tab.Chew) 750 mg PO Q4H PRN PRN Reason: Heartburn Hydromorphone HCl (Hydromorphone Hcl 1 Mg/Ml Syringe) 1 mg IVPUSH Q3H PRN; Protocol PRN Reason: Pain, Severe (Pain Scale 7-10) Last Admin: 04/07/24 08:35 Dose: 1 mg Diltiazem HCl 125 mg/ Sodium (Chloride) 125 mls @ 0 mls/hr IVCONT .Q0M COUNT INCLUDES THE [facility]; Protocol Last Titration: 04/07/24 08:45 Dose: 15 mg/hr, 15 mls/hr Latanoprost (Latanoprost 0.005 % Ophth Yuly 2.5 Ml Drops) 1 drop EYE-BOTH BEDTIME COUNT INCLUDES THE [facility] Last Admin: 04/06/24 20:40 Dose: 1 drop Magnesium Hydroxide (Milk Of Magnesia 30 Ml Oral.Susp) 30 ml PO DAILY PRN PRN Reason: Constipation Melatonin (Melatonin 3 Mg Tablet) 6 mg PO BEDTIME PRN PRN Reason: Insomnia Omeprazole (Omeprazole 40 Mg Capsule.Dr) 40 mg PO DAILY@0630 COUNT INCLUDES THE [facility] Last Admin: 04/07/24 04:53 Dose: Not Given Ondansetron HCl (Ondansetron Hcl 4 Mg/2 Ml Vial) 4 mg IVPUSH Q8H PRN PRN Reason: Nausea and Vomiting Oxycodone HCl (Oxycodone Hcl Immed Release 5 Mg Tablet) 5 mg PO TID PRN PRN Reason: Pain Last Admin: 04/06/24 17:11 Dose: 5 mg Pravastatin Sodium (Pravastatin Sodium 20 Mg Tablet) 20 mg PO DAILY COUNT INCLUDES THE [facility] Ropinirole HCl (Ropinirole Hcl 0.25 Mg Tablet) 0.25 mg PO BEDTIME COUNT INCLUDES THE [facility] Last Admin: 04/06/24 20:16 Dose: 0.25 mg Sodium Chloride (0.9 % Sodium Chloride Flush 3 Ml Syringe) [facility] Last Admin: 04/07/24 09:59 Dose: 3 ml Home Medications ?Medication ?Instructions ?Recorded ?Confirmed ?Last Taken ?Type lovastatin 20 mg tablet 20 mg PO BEDTIME 03/23/20 04/01/24 03/31/24 History ropinirole 0.25 mg tablet 0.25 mg PO BEDTIME 03/23/20 04/01/24 03/31/24 History omeprazole 20 mg capsule,delayed 40 mg PO DAILY@0630 11/21/20 04/01/24 03/31/24 History release latanoprost 0.005 % eye drops 1 drp ophthalmic (eye) BEDTIME 06/15/23 04/01/24 03/31/24 History lidocaine 5 % topical patch 1 patch topical DAILY PRN Pain 06/15/23 04/01/24 Unknown History ondansetron 4 mg disintegrating 4 mg PO DAILY PRN Nausea And 06/15/23 04/01/24 Unknown History tablet Vomiting oxycodone-acetaminophen 5 mg-325 1 tab PO TID PRN Pain 06/15/23 04/01/24 Unknown History mg tablet (Percocet) food supplemt, lactose-reduced 1 ea PO DAILY 10/29/23 04/01/24 Unknown History naloxone 4 mg/actuation nasal spray 4 mg intranasal Q3M PRN Opioid 04/01/24 04/01/24 Unknown History Reversal Physical Exam 2 Vital Signs: Vital Signs: Last Vital Signs Temp 98.6 F 04/07/24 07:08 Pulse 91 04/07/24 09:00 Resp 20 04/07/24 07:08 BP 155/72 H 04/07/24 09:00 Pulse Ox 98 04/07/24 07:08 O2 Del Method Room Air 04/07/24 07:08 BMI result Body Mass Index 25.1 Const: General: comfortable and no acute distress O rientation/consciousness: patient oriented x3 HEENT: Other: Unremarkable Head: Yes normal to inspection Neck: Neck: Yes normal visual inspection Chest: Chest palpation & inspection: normal inspection of the chest Resp: Auscultation: clear to auscultation bilaterally Cardio: Palpation: normal PMI Heart sounds: S1 normal heart sound present, S2 normal heart sound present, no gallops, no murmurs and no rubs GI: Palpation (GI): Soft to palpation Back/Spine/Pelvis: Other: unremarkable Skin: General skin exam: no rashes or lesions noted Neuro: General: patient oriented x3 Extrem: General: Yes normal to inspection Psych: Mental Status: mental status grossly normal Objective Labs and Meds 04/07/24 06:47 04/07/24 06:47 Lab results: Laboratory Results - last 24 hr 04/07/24 04/07/24 04/07/24 06:47 06:47 06:47 WBC Cancelled 14.6 H RBC Cancelled 3.21 L Hgb Cancelled Hct MCV MCH MCHC RDW Plt Count MPV Immature Gran % (Auto) Neut % (Auto) Lymph % (Auto) [place] % (Auto) Eos % (Auto) Baso % (Auto) Lymph # (Auto) [place] # (Auto) Eos # (Auto) Baso # (Auto) Abs Immat Gran (auto) Absolute Neuts (auto) Absolute Nucleated RBC Nucleated RBC % (auto) Hold Purple Top Sodium Potassium Chloride Carbon Dioxide Anion Gap BUN Creatinine Estim Creat Clear Calc Estimated GFR Random Glucose Lactic Acid Calcium Magnesium Total Creatine Kinase Troponin I High Sens C-Reactive Protein 04/07/24 04/07/24 04/07/24 06:47 06:47 06:47 WBC RBC Hgb 9.3 L Hct Cancelled 27.9 L MCV Cancelled 86.9 MCH Cancelled MCHC RDW Plt Count MPV Immature Gran % (Auto) Neut % (Auto) Lymph % (Auto) [place] % (Auto) Eos % (Auto) Baso % (Auto) Lymph # (Auto) [place] # (Auto) Eos # (Auto) Baso # (Auto) Abs Immat Gran (auto) Absolute Neuts (auto) Absolute Nucleated RBC Nucleated RBC % (auto) Hold Purple Top Sodium Potassium Chloride Carbon Dioxide Anion Gap BUN Creatinine Estim Creat Clear Calc Estimated GFR Random Glucose Lactic Acid Calcium Magnesium Total Creatine Kinase Troponin I High Sens C-Reactive Protein 04/07/24 04/07/24 04/07/24 06:47 06:47 06:47 WBC RBC Hgb Hct MCV MCH 29.0 MCHC Cancelled 33.3 RDW Cancelled 11.9 Plt Count Cancelled MPV Immature Gran % (Auto) Neut % (Auto) Lymph % (Auto) [place] % (Auto) Eos % (Auto) Baso % (Auto) Lymph # (Auto) [place] # (Auto) Eos # (Auto) Baso # (Auto) Abs Immat Gran (auto) Absolute Neuts (auto) Absolute Nucleated RBC Nucleated RBC % (auto) Hold Purple Top Sodium Potassium Chloride Carbon Dioxide Anion Gap BUN Creatinine Estim Creat Clear Calc Estimated GFR Random Glucose Lactic Acid Calcium Magnesium Total Creatine Kinase Troponin I High Sens C-Reactive Protein 11/04/07/24 04/07/24 06:47 06:47 06:47 WBC RBC Hgb Hct MCV MCH MCHC RDW Plt Count 326 D MPV Cancelled 9.8 Immature Gran % (Auto) 0.6 H Neut % (Auto) 86.3 H Lymph % (Auto) 3.8 L [place] % (Auto) 7.8 Eos % (Auto) 1.4 Baso % (Auto) 0.1 Lymph # (Auto) 0.6 L [place] # (Auto) 1.1 Eos # (Auto) 0.2 Baso # (Auto) 0.0 Abs Immat Gran (auto) 0.09 H Absolute Neuts (auto) 12.6 H Absolute Nucleated RBC Cancelled 0.000 Nucleated RBC % (auto) Cancelled Hold Purple Top Sodium Potassium Chloride Carbon Dioxide Anion Gap BUN Creatinine Estim Creat Clear Calc Estimated GFR Random Glucose Lactic Acid Calcium Magnesium Total Creatine Kinase Troponin I High Sens C-Reactive Protein 04/07/24 04/07/24 06:47 06:52 WBC RBC Hgb Hct MCV MCH MCHC RDW Plt Count MPV Immature Gran % (Auto) Neut % (Auto) Lymph % (Auto) [place] % (Auto) Eos % (Auto) Baso % (Auto) Lymph # (Auto) [place] # (Auto) Eos # (Auto) Baso # (Auto) Abs Immat Gran (auto) Absolute Neuts (auto) Absolute Nucleated RBC Nucleated RBC % (auto) 0.0 Hold Purple Top SEE NOTE Sodium 135 Potassium 3.5 Chloride 100 Carbon Dioxide 23 Anion Gap 16 BUN 9 Creatinine 0.75 Estim Creat Clear Calc 92.0 Estimated GFR > 60 Random Glucose 99 Lactic Acid 1.6 Calcium 8.5 Magnesium 2.1 Total Creatine Kinase 56 Troponin I High Sens 11.7 D C-Reactive Protein 8.13 H ECG Interpretation: EKG from this morning shows atrial fibrillation with rapid ventricular response at 172/Min. This ST depression in the inferior as well as anterolateral leads. Currently, it seems like back in sinus rhythm with some PACs. EKG prior to this is from June of this year when he was in sinus rhythm at a rate of 63/Min. Assessment and Plan (1) Atrial fibrillation with rapid ventricular response: Status: Acute (2) Hematuria: Status: Acute (3) COVID: Status: Acute Plan High sensitivity troponin from this morning is within normal limits. Last echocardiogram is from February of this year with shows LVEF of 62%. No significant valvular findings. Overall, atrial fibrillation rapid ventricular responses a.m. during hospitalization for hematuria. Concurrent COVID infection. During the process of evaluation, he spontaneously converted to sinus rhythm with frequent PACs. We can stop the Multaq and start him on oral amiodarone. Hopefully, that will keep him in sinus rhythm. Per discussion with Dr. Shelton, he cannot be taking anticoagulation because of hematuria and that was per Urology advice. In that case, consideration for outpatient Watchman device. That will need to be addressed once the acute issues are resolved. Procedures Date of Service Date of Service: 04/07/24
[2024-04-07] MEDS: oxyCODONE HCl Immed Release 5 MG TABLET PO (11:14)
[2024-04-07 11:19] LABS: Troponin-I High Sensitivity 770.5 ng/L (<3.5-35.0)
--- NOTE | 2024-04-07 11:39 | PC.NURSE ---
at approximately 0800, dr bolden at bedside to hand irrigate da silva catheter. following hand irrigation, CBI noted to be clamped. clarified with MD: CBI to remain clamped.
--- NOTE | 2024-04-07 12:43 | P.PNUR_ITS ---
Subjective Subjective Date of Service: 04/07/24 Interval history: Slowly resolving hematuria Was given Eliquis reversal agent yesterday Irrigation performed at bedside with significant clot removal 60 cc irrigated with cath tip syringe. Second 60 cc amount irrigated and bladder clots irrigated. This process was repeated numerous times till efflux was essentially clear (CPT 95973) Slow CBI restarted This may be held and if urine clear within 12 hours Rasmussen catheter can be removed Physical Exam 2 Vital Signs: Vital Signs: Last Vital Signs Temp 99.1 F 04/07/24 11:07 Pulse 79 04/07/24 11:07 Resp 18 04/07/24 11:07 BP 101/58 L 04/07/24 11:07 Pulse Ox 96 04/07/24 11:07 O2 Del Method Room Air 04/07/24 11:07 BMI result Body Mass Index 25.1 Const: General: cooperative, healthy appearing, comfortable and no acute distress Orientation/consciousness: patient oriented x3 HEENT: Face and sinus: Yes normal facial exam Mouth: moist mucous membranes Neck: Neck: Yes normal visual inspection, Yes full ROM and Yes trachea midline Chest: Chest palpation & inspection: normal inspection of the chest Resp: Effort & Inspection: normal respiratory effort, able to speak in complete sentences and no respiratory distress GI: Inspection: Yes normal to inspection Back/Spine/Pelvis: Cervical Spine: normal cervical lordosis Thoracic/Lumbar Spine: thoracic and lumbar spine normal to inspection Skin: General skin exam: no rashes or lesions noted Neuro: General: patient oriented x3, tone normal and moves all extremities Extrem: General: Yes normal to inspection and Yes capillary refill normal Urology Results Labs 04/07/24 06:47 04/07/24 06:47 Labs: Laboratory Results - last 24 hr 04/07/24 04/07/24 04/07/24 06:47 06:47 06:47 WBC Cancelled 14.6 H RBC Cancelled 3.21 L Hgb Cancelled Hct MCV MCH MCHC RDW Plt Count MPV Immature Gran % (Auto) Neut % (Auto) Lymph % (Auto) [place] % (Auto) Eos % (Auto) Baso % (Auto) Lymph # (Auto) [place] # (Auto) Eos # (Auto) Baso # (Auto) Abs Immat Gran (auto) Absolute Neuts (auto) Absolute Nucleated RBC Nucleated RBC % (auto) Hold Purple Top Sodium Potassium Chloride Carbon Dioxide Anion Gap BUN Creatinine Estim Creat Clear Calc Estimated GFR Random Glucose Lactic Acid Calcium Magnesium Total Creatine Kinase Troponin I High Sens C-Reactive Protein 04/07/24 04/07/24 04/07/24 06:47 06:47 06:47 WBC RBC Hgb 9.3 L Hct Cancelled 27.9 L MCV Cancelled 86.9 MCH Cancelled MCHC RDW Plt Count MPV Immature Gran % (Auto) Neut % (Auto) Lymph % (Auto) [place] % (Auto) Eos % (Auto) Baso % (Auto) Lymph # (Auto) [place] # (Auto) Eos # (Auto) Baso # (Auto) Abs Immat Gran (auto) Absolute Neuts (auto) Absolute Nucleated RBC Nucleated RBC % (auto) Hold Purple Top Sodium Potassium Chloride Carbon Dioxide Anion Gap BUN Creatinine Estim Creat Clear Calc Estimated GFR Random Glucose Lactic Acid Calcium Magnesium Total Creatine Kinase Troponin I High Sens C-Reactive Protein 04/07/24 04/07/24 04/07/24 06:47 06:47 06:47 WBC RBC Hgb Hct MCV MCH 29.0 MCHC Cancelled 33.3 RDW Cancelled 11.9 Plt Count Cancelled MPV Immature Gran % (Auto) Neut % (Auto) Lymph % (Auto) [place] % (Auto) Eos % (Auto) Baso % (Auto) Lymph # (Auto) [place] # (Auto) Eos # (Auto) Baso # (Auto) Abs Immat Gran (auto) Absolute Neuts (auto) Absolute Nucleated RBC Nucleated RBC % (auto) Hold Purple Top Sodium Potassium Chloride Carbon Dioxide Anion Gap BUN Creatinine Estim Creat Clear Calc Estimated GFR Random Glucose Lactic Acid Calcium Magnesium Total Creatine Kinase Troponin I High Sens C-Reactive Protein 04/07/24 04/07/24 04/07/24 06:47 06:47 06:47 WBC RBC Hgb Hct MCV MCH MCHC RDW Plt Count 326 D MPV Cancelled 9.8 Immature Gran % (Auto) 0.6 H Neut % (Auto) 86.3 H Lymph % (Auto) 3.8 L [place] % (Auto) 7.8 Eos % (Auto) 1.4 Baso % (Auto) 0.1 Lymph # (Auto) 0.6 L [place] # (Auto) 1.1 Eos # (Auto) 0.2 Baso # (Auto) 0.0 Abs Immat Gran (auto) 0.09 H Absolute Neuts (auto) 12.6 H Absolute Nucleated RBC Cancelled 0.000 Nucleated RBC % (auto) Cancelled Hold Purple Top Sodium Potassium Chloride Carbon Dioxide Anion Gap BUN Creatinine Estim Creat Clear Calc Estimated GFR Random Glucose Lactic Acid Calcium Magnesium Total Creatine Kinase Troponin I High Sens C-Reactive Protein 04/07/24 04/07/24 04/07/24 06:47 06:52 10:31 WBC RBC Hgb Hct MCV MCH MCHC RDW Plt Count MPV Immature Gran % (Auto) Neut % (Auto) Lymph % (Auto) [place] % (Auto) Eos % (Auto) Baso % (Auto) Lymph # (Auto) [place] # (Auto) Eos # (Auto) Baso # (Auto) Abs Immat Gran (auto) Absolute Neuts (auto) Absolute Nucleated RBC Nucleated RBC % (auto) 0.0 Hold Purple Top SEE NOTE Sodium 135 Potassium 3.5 Chloride 100 Carbon Dioxide 23 Anion Gap 16 BUN 9 Creatinine 0.75 Estim Creat Clear Calc 92.0 Estimated GFR > 60 Random Glucose 99 Lactic Acid 1.6 Calcium 8.5 Magnesium 2.1 Total Creatine Kinase 56 Troponin I High Sens 11.7 D 770.5 H* D C-Reactive Protein 8.13 H Progress Note: A&P Assessment and plan (1) Prostate cancer: Status: Acute (2) Hematuria: Status: Acute Plan Stop CBI Outpatient follow-up cystoscopy Time Spent With Patient Time: Total time managing care of this patient today ____ minutes. Progress Note: Quality Stroke Does the patient have a stroke diagnosis?: No
--- NOTE | 2024-04-07 12:50 | HO.PM.IMPN ---
Subjective Subjective Date of Service: 04/07/24 Interval History: got PCC overnight per Urology recommendation [per nursing protocol, was given in ICU] pt went into symptomatic rapid AF this AM. Was given IV metoprolol and diltizem, then converted to NSR Urology hand irrigated Rasmussen, clots cleared and urine clear, now clamped c/o neck pain no chest pain Review of Systems Review of Systems: Yes all other systems are reviewed and are negative Physical Exam Vital Signs: Vital Signs: Last Vital Signs Temp 99.1 F 04/07/24 11:07 Pulse 79 04/07/24 11:07 Resp 18 04/07/24 11:07 BP 101/58 L 04/07/24 11:07 Pulse Ox 96 04/07/24 11:07 O2 Del Method Room Air 04/07/24 11:07 BMI result Body Mass Index 25.1 Gen: in no acute distress HEENT: sclera anicteric, moist mucus membranes Neck: supple Lungs: clear to auscultation bilaterally Heart: regular rate and rhythm, no murmurs Abd: soft, non-tender, non-distended : improvement in scrotal swelling with bruising, Rasmussen clear Ext: no edema Skin: warm/well-perfused Neuro: alert and oriented x3, no focal findings Psych: appropriate affect Objective Data Active Medications Acetaminophen (Acetaminophen 325 Mg Tablet) 650 mg PO Q6H PRN PRN Reason: Pain, Mild (Pain Scale 1-3), fever or headache Last Admin: 04/05/24 07:32 Dose: 650 mg Documented By: HUGO Amiodarone HCl (Amiodarone Hcl 200 Mg Tablet) 400 mg PO BID [facility] Last Admin: 04/07/24 09:58 Dose: 400 mg Documented By: RANI Calcium Carbonate (Calcium Carbonate 750 Mg Tab.Chew) 750 mg PO Q4H PRN PRN Reason: Heartburn Cyclobenzaprine HCl (Cyclobenzaprine Hcl 10 Mg Tablet) 10 mg PO TID PRN PRN Reason: neck pain Hydromorphone HCl (Hydromorphone Hcl 1 Mg/Ml Syringe) 1 mg IVPUSH Q3H PRN; Protocol PRN Reason: Pain, Severe (Pain Scale 7-10) Last Admin: 04/07/24 08:35 Dose: 1 mg Documented By: RANI Diltiazem HCl 125 mg/ Sodium (Chloride) 125 mls @ 0 mls/hr IVCONT .Q0M [facility]; Protocol Last Titration: 04/07/24 10:10 Dose: 0 mg/hr, 0 mls/hr Documented By: RANI Latanoprost (Latanoprost 0.005 % Ophth Yuly 2.5 Ml Drops) 1 drop EYE-BOTH BEDTIME [facility] Last Admin: 04/06/24 20:40 Dose: 1 drop Documented By: TRUDY Lidocaine (Lidocaine 4 % Patch Adh..Patch) 1 patch TRANSDERMA DAILY [facility]; Protocol Magnesium Hydroxide (Milk Of Magnesia 30 Ml Oral.Susp) 30 ml PO DAILY PRN PRN Reason: Constipation Melatonin (Melatonin 3 Mg Tablet) 6 mg PO BEDTIME PRN PRN Reason: Insomnia Omeprazole (Omeprazole 40 Mg Capsule.Dr) 40 mg PO DAILY@0630 [facility] Last Admin: 04/07/24 04:53 Dose: Not Given Documented By: TRUDY Non-Admin Reason: NPO Ondansetron HCl (Ondansetron Hcl 4 Mg/2 Ml Vial) 4 mg IVPUSH Q8H PRN PRN Reason: Nausea and Vomiting Oxycodone HCl (Oxycodone Hcl Immed Release 5 Mg Tablet) 5 mg PO TID PRN PRN Reason: Pain Last Admin: 04/07/24 11:14 Dose: 5 mg Documented By: RANI Pravastatin Sodium (Pravastatin Sodium 20 Mg Tablet) 20 mg PO DAILY [facility] Ropinirole HCl (Ropinirole Hcl 0.25 Mg Tablet) 0.25 mg PO BEDTIME [facility] Last Admin: 04/06/24 20:16 Dose: 0.25 mg Documented By: LEANNE Sodium Chloride (0.9 % Sodium Chloride Flush 3 Ml Syringe) 3 ml IVFLUSH QSHIFT [facility] Last Admin: 04/07/24 09:59 Dose: 3 ml Documented By: RANI Labs 04/07/24 06:47 04/07/24 06:47 Labs: Laboratory Results - last 24 hr 04/07/24 04/07/24 04/07/24 06:47 06:47 06:47 MCV Cancelled 86.9 MCH Cancelled 29.0 MCHC Cancelled RDW Plt Count MPV Immature Gran % (Auto) Neut % (Auto) Lymph % (Auto) [place] % (Auto) Eos % (Auto) Baso % (Auto) Lymph # (Auto) [place] # (Auto) Eos # (Auto) Baso # (Auto) Abs Immat Gran (auto) Absolute Neuts (auto) Absolute Nucleated RBC Nucleated RBC % (auto) Hold Purple Top Anion Gap Estim Creat Clear Calc Estimated GFR Random Glucose Lactic Acid Calcium Magnesium Total Creatine Kinase Troponin I High Sens C-Reactive Protein 04/07/24 04/07/24 04/07/24 06:47 06:47 06:47 MCV MCH MCHC 33.3 RDW Cancelled 11.9 Plt Count Cancelled 326 D MPV Cancelled Immature Gran % (Auto) Neut % (Auto) Lymph % (Auto) [place] % (Auto) Eos % (Auto) Baso % (Auto) Lymph # (Auto) [place] # (Auto) Eos # (Auto) Baso # (Auto) Abs Immat Gran (auto) Absolute Neuts (auto) Absolute Nucleated RBC Nucleated RBC % (auto) Hold Purple Top Anion Gap Estim Creat Clear Calc Estimated GFR Random Glucose Lactic Acid Calcium Magnesium Total Creatine Kinase Troponin I High Sens C-Reactive Protein 04/07/24 04/07/24 04/07/24 06:47 06:47 06:47 MCV MCH MCHC RDW Plt Count MPV 9.8 Immature Gran % (Auto) 0.6 H Neut % (Auto) 86.3 H Lymph % (Auto) 3.8 L [place] % (Auto) 7.8 Eos % (Auto) 1.4 Baso % (Auto) 0.1 Lymph # (Auto) 0.6 L [place] # (Auto) 1.1 Eos # (Auto) 0.2 Baso # (Auto) 0.0 Abs Immat Gran (auto) 0.09 H Absolute Neuts (auto) 12.6 H Absolute Nucleated RBC Cancelled 0.000 Nucleated RBC % (auto) Cancelled 0.0 Hold Purple Top SEE NOTE Anion Gap 16 Estim Creat Clear Calc 92.0 Estimated GFR > 60 Random Glucose 99 Lactic Acid 1.6 Calcium 8.5 Magnesium 2.1 Total Creatine Kinase 56 Troponin I High Sens C-Reactive Protein 8.13 H 04/07/24 04/07/24 06:52 10:31 MCV MCH MCHC RDW Plt Count MPV Immature Gran % (Auto) Neut % (Auto) Lymph % (Auto) [place] % (Auto) Eos % (Auto) Baso % (Auto) Lymph # (Auto) [place] # (Auto) Eos # (Auto) Baso # (Auto) Abs Immat Gran (auto) Absolute Neuts (auto) Absolute Nucleated RBC Nucleated RBC % (auto) Hold Purple Top Anion Gap Estim Creat Clear Calc Estimated GFR Random Glucose Lactic Acid Calcium Magnesium Total Creatine Kinase Troponin I High Sens 11.7 D 770.5 H* D C-Reactive Protein Assessment and Plan (1) Hematuria: Status: Acute Plan d8 for 73yo M with prostate CA s/p XRT, pAF on apixaban, RLS, chronic pain presenting with hematuria and also to have Covid-19 without hypoxia pAF - resolved; Cardiology consulted; changed dronaderaone to amiodarone; no more apixaban; should have outpt Watchman device evaluation troponin elevation - likely demand from hypotension [probably from PCC] or AF; no anginal symptoms; had normal nuclear stress test in August though suboptimal study; Cardiology following scrotal edema hematuria associated with ureteral mass - received antibiotic coverage with clindamycin/pip-ervin/dapto 04/02-; also on PO vancomycin given hx of Cdiff. ID consulted. Urology following. Doubt gangrene; more likely bruising/swelling related to Rasmussen - Last Eliquis was 03/31/24. Given PCC 04/07/24. - bedside irrigation of Rasmussen today until urine ran clear; if urine still clear in 12hr, to remove Rasmussen for voiding trial sclerotic iliac lesion - suspicion for metastatic prostate CA, will need Oncology outpatient follow-up hypoNa, resolved - corrected at appropriate rate Covid-19 infection - not hypoxic; no specific therapy indicated unless he becomes hypoxic RLS - continue ropinirole HLD - continue statin GERD - continue PPI chronic pain - prn oxycodone, IV hydromorphone for acute pain neck muscle spasm - lidocaine patch, cyclobenzaprine VTE ppx - SCDs; no AC due to hematuria dispo - eventual home In my clinical judgment, the patient requires continued inpatient hospitalization for the following reasons: hematuria Total time managing care of this patient today: 55 minutes. Quality Stroke Does the patient have a stroke diagnosis?: No VTE Prior VTE?: No VTE Risk Level:: Medical - moderate - high VTE Device Contraindication: N/A - Device Ordered VTE Drug Contraindication: Treatment Not Indicated
[2024-04-07] MEDS: Cyclobenzaprine HCl 10 MG TABLET PO ×2 (12:51→20:31)
[2024-04-07] MEDS: Lidocaine 4 % Patch ADH..PATCH 1 PATCH TRANSDERMA (12:52)
[2024-04-07 14:59] LABS: Troponin-I High Sensitivity 4982.1 ng/L (<3.5-35.0)
[2024-04-07] MEDS: Amiodarone/Dextrose 150 MG/100 ML PLAST..BAG 600 MG IV (16:24)
[2024-04-07] MEDS: Atorvastatin Calcium 80 MG TABLET PO (16:25)
[2024-04-07] MEDS: Digoxin 0.5 MG/2 ML AMPUL 0.25 MG IVPUSH ×2 (16:25→22:56)
[2024-04-07] MEDS: Amiodarone HCL 900 MG in 0.9 % Sodium Chloride 500 ML 34.53 MG IVCONT (16:52)
[2024-04-07] MEDS: Trolamine Salicylate 10 % Cream 141 gm Tube 1 APPL TOPICAL (17:51)
--- NOTE | 2024-04-07 19:11 | PC.NURSE ---
p: alteration in cardiac function i: per care plan e: at approximately 1600 pt flipped back into afib with rapid rate. paged. patient given: digoxin, amio loading dose, amio drip initiated, and 5 mg metoprolol. pt back to sinus with PACs at approximately 1800. p: alteration in genitourinary i: per care plan e: CBI remains clamed per Dr. Cox.
[2024-04-07] MEDS: rOPINIRole HCL 0.25 MG TABLET PO (20:31)
[2024-04-07 21:04] LABS: Troponin-I High Sensitivity 5983.2 ng/L (<3.5-35.0)
[2024-04-07] MEDS: Melatonin 3 MG TABLET 6 MG PO (22:45)
[2024-04-08] VITALS (7 sets, daily range): BP systolic 122–148; BP diastolic 53–68; PULSE 60–77; RESP 18–20; TEMP 36.4–37.1; O2SAT 93–97
[2024-04-08] MEDS: HYDROmorphone HCl 1 MG/ML SYRINGE IVPUSH ×5 (01:03→18:12)
[2024-04-08 01:21] LABS: INTERNATIONAL NORM RATIO 1.2 (0.9-1.1); Prothrombin Time 13.4 SEC (10.9-12.4)
[2024-04-08 01:24] LABS: Partial Thromboplastin Time 28.7 SEC (26.0-36.8)
[2024-04-08 01:54] LABS: Troponin-I High Sensitivity 3492.6 ng/L (<3.5-35.0)
[2024-04-08 02:05] LABS: D Dimer High Sensitivity 438 NG/ML
[2024-04-08] MEDS: Throat Lozenge, Medicated LOZENGE 1 LOZENGE MUCOUS MEM (03:10)
[2024-04-08] MEDS: iohexoL 350 MG/ML 100 ML INFUS..BTL 80 ML IV (03:30)
--- NOTE | 2024-04-08 05:39 | P.EN_ITS ---
Event Note Date of Service: 04/08/24 Event Note: 11:49 PM - Contacted in multiple occasions to let me know patient's daughter was requesting to speak with me (I already informed nursing I was taking care of other acute matters and speaking with other family members and that I will speak with daughter jackeline) and saying that if she does not speak with me she is going to look for me. I met with patient's daughter. She is very upset and expressed her concerns. She is concerned about the her dad's elevated troponin as it continues to increase and feels that his posterior neck pain is secondary to a heart attack according to a Google search that she read out loud to me. She feels we are not doing anything to help her dad. I expressed to her that I do understand her concerns. I informed that her dad is not getting treatment with blood thinners because he just had a significant bleeding event/hematuria that required Kcentra. I made her aware of the assessments/opinions and recommendations of the [employer] and urology services. She also requested that I reach out both services to ask if there is anything we can do in regards to patient's elevated troponin. Dr. Duke recommended asa/heparin drip when cleared by urology and if BP allows metoprolol [address] 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 I spoke with patient's daughter again and informed her about this. She understood and felt relieved as patient's troponin is starting to trend down. Time Spent With Patient Time: Total time managing care of this patient today ____ minutes.
[2024-04-08] MEDS: Omeprazole 40 MG CAPSULE.DR PO (06:39)
--- NOTE | 2024-04-08 07:28 | PC.NURSE ---
At the beginning of the shift, patient was c/o severe neck pain that's preventing him from moving, eating, or drinking comfortably. Patient's daughter Kari was at bedside expressing some concerns with patient's conditions at the time, sharing about two episodes of Afib RVR that occurred the same day. Repeat Troponin was more elevated than the one earlier, leading the daughter to be more anxious and worrisome about the situation. She voiced that she does not feel like the team is giving enough attention and care to the patient who could possibly crash and code with his elevated Troponin and episodes of Afib RVR happened earlier. She also expressed that his neck pain, labored breathing, and elevated Troponin level all seemed to be indications of a major cardiac event and the team is not addressing the problem appropriately. Education was provided to the daughter in multiple occasions to share the patient's conditions, to review medications and lab results, and to discuss current plan of care, with patient's presence and permission. Patient remained AOx4 with no neurological change with stable vital sign and good oxygen saturation in room air. The daughter requested to meet with the provider directly to discuss the situation - Dr. Fish was contacted and conducted a short meeting with the daughter to review the situation and discuss plan of care again. The daughter became very upset during the meeting, raised her voice a few times, and interrupted the conversation; she had to be redirected a few times, then apologized to the team at the end of the meeting for her inappropriate behaviors. She became relieved when the repeat Troponin level came down. CT head/neck was done to rule out any acute abnormality around the neck area - read pending. Patient was closely monitored overnight and was given adequate care to manage his pain and conditions.
[2024-04-08 08:03] LABS: Hematocrit 26.4 % (42.0-52.0); Hemoglobin 8.9 g/dl (14.0-18.0); Mean Corpuscular HGB Conc 33.7 g/dl (31.0-36.0); Mean Corpuscular Hemoglobin 29.1 pg (27.0-33.0); Mean Corpuscular Volume 86.3 fL (80.0-98.0); Mean Platelet Volume 10.2 fL (9.4-12.4); Platelet Count 305 X10*3/uL (160-400); Red Blood Count 3.06 X10*6/uL (4.60-5.80); Red Cell Distribution Width 11.9 % (11.0-16.0); White Blood Count 14.9 X10*3/uL (4.8-10.8)
[2024-04-08] MEDS: oxyCODONE HCl Immed Release 5 MG TABLET PO ×2 (08:04→22:52)
[2024-04-08] MEDS: Atorvastatin Calcium 80 MG TABLET PO (08:04)
[2024-04-08] MEDS: Amiodarone HCL 900 MG in 0.9 % Sodium Chloride 500 ML 34.53 MG IVCONT (08:04)
[2024-04-08] MEDS: 0.9 % Sodium Chloride Flush 3 ML SYRINGE IVFLUSH ×3 (08:07→23:47)
[2024-04-08 08:16] LABS: Anion Gap 12 (12-20); Blood Urea Nitrogen 8 mg/dL (9-16); Calcium 8.1 mg/dL (8.4-10.2); Carbon Dioxide 24 mmol/L (22-29); Chloride 99 mmol/L (96-108); Creatinine Clr Calc Pharmacy 106.1; Estimated Glomerular Filt Rate > 60; Glucose Random 108 mg/dL (60-115); Potassium 3.3 mmol/L (3.3-5.1); Sodium 132 mmol/L (135-145)
[2024-04-08 08:32] LABS: Appearance Urine Clear; Color Urine Yellow; Glucose Urine UA Negative (Negative); Leukocyte Esterase Urine Trace (Negative); Nitrite Urine Negative (Negative); Specific Gravity - Urine >= 1.030 (1.005-1.025); UMIC TRIGGER UA YES; Urine Blood Moderate (2+) (Negative); Urine Ketones 15 mg/dL (Negative); Urine Protein Trace mg/dL (Neg-Trace)
[2024-04-08 08:37] LABS: Bacteria Urine None Seen (None Seen); Hyaline Casts Urine 0-2 /LPF (0-2); RBC Urine >20 /HPF (0-2); Squamous Epithelial Cell Urine 0-2 /HPF (0-2)
--- NOTE | 2024-04-08 09:53 | PM.PNCARD ---
Subjective Subjective Date of Service: 04/08/24 Interval history: Seen and examined patient. Discussed with at the bedside and also discussed with son over the phone. Patient himself states he feels fine. No cardiac symptoms whatsoever. Clearly no chest pain. He has some neck pain which is musculoskeletal as it gets worse with turning the neck. Review of Systems Review of Systems Yes all other systems are reviewed and are negative Constitutional: Reports as per HPI and Reports no additional constitutional complaints Eyes: Reports as per HPI and Denies no additional eye complaints Denies system reviewed and no additional complaints, except as documented and Reports as per HPI Cardiovascular: Reports as per HPI, Reports no additional cardiovascular complaints, Denies acrocyanosis, Denies cool extremities, Denies chest pain, Denies leg edema, Denies lightheadedness, Denies palpitations and Denies dyspnea Respiratory: Reports as per HPI, Denies no additional respiratory complaints and Denies dyspnea Gastrointestinal: Reports as per HPI and Denies no additional gastrointestinal complaints Genitourinary: Reports no additional male genitourinary complaints and Reports as per HPI Musculoskeletal: Reports no additional musculoskeletal complaints and Reports as per HPI Skin/Breast: Reports system reviewed and no additional complaints, except as docu Reports system reviewed and no additional complaints, except as documented and Reports as per HPI Psychiatric: Reports no additional psychiatric complaints and Reports as per HPI Endocrine: Reports no additional endocrine complaints, Reports as per HPI and Denies palpitations Hematologic/Lymphatic: Reports no additional hematologic/lymphatic complaints and Reports as per HPI Allergic/Immunologic: Reports no additional allergic/immunologic complaints and Reports as per HPI Physical Exam Vital Signs: Last Vital Signs Temp 98.8 F 04/08/24 07:07 Pulse 63 04/08/24 07:07 Resp 18 04/08/24 07:07 BP 146/68 H 04/08/24 07:07 Pulse Ox 95 04/08/24 07:07 O2 Del Method Room Air 04/08/24 07:07 BMI result Body Mass Index 25.1 Const General: comfortable and no acute distress Orientation/consciousness: patient oriented x3 HEENT Other: Unremarkable Head: Yes normal to inspection Neck Neck: Yes normal visual inspection Chest Chest palpation & inspection: normal inspection of the chest Resp Auscultation: clear to auscultation bilaterally Cardio Palpation: normal PMI Heart sounds: S1 normal heart sound present, S2 normal heart sound present, no gallops, no murmurs and no rubs GI Palpation (GI): Soft to palpation Back/Spine/Pelvis Other: unremarkable Skin General skin exam: no rashes or lesions noted Neuro General: patient oriented x3 Extrem General: Yes normal to inspection Psych Mental Status: mental status grossly normal Objective Labs and Meds 04/08/24 06:25 04/08/24 06:25 Lab results: Laboratory Results - last 24 hr 04/07/24 04/07/24 04/07/24 10:31 13:54 14:03 WBC RBC Hgb Hct MCV MCH MCHC RDW Plt Count MPV Absolute Nucleated RBC Nucleated RBC % (auto) Hold Purple Top SEE NOTE PT INR APTT D-Dimer High Sensitivty Sodium Potassium Chloride Carbon Dioxide Anion Gap BUN Creatinine Estim Creat Clear Calc Estimated GFR Random Glucose Calcium Troponin I High Sens 770.5 H* D 4982.1 H* D Urine Color Urine Appearance Urine pH Ur Specific [place] Urine Protein Urine Glucose (UA) Urine Ketones Urine Blood Urine Nitrite Ur Leukocyte Esterase Urine RBC Urine WBC Ur Squamous Epith Cells Urine Bacteria Hyaline Casts 04/07/24 04/07/24 04/08/24 20:09 20:16 01:06 WBC RBC Hgb Hct MCV MCH MCHC RDW Plt Count MPV Absolute Nucleated RBC Nucleated RBC % (auto) Hold Purple Top SEE NOTE PT 13.4 H INR 1.2 H APTT 28.7 D-Dimer High Sensitivty 438 Sodium Potassium Chloride Carbon Dioxide Anion Gap BUN Creatinine Estim Creat Clear Calc Estimated GFR Random Glucose Calcium Troponin I High Sens 5983.2 H* 3492.6 H* Urine Color Urine Appearance Urine pH Ur Specific [place] Urine Protein Urine Glucose (UA) Urine Ketones Urine Blood Urine Nitrite Ur Leukocyte Esterase Urine RBC Urine WBC Ur Squamous Epith Cells Urine Bacteria Hyaline Casts 04/08/24 04/08/24 06:25 08:10 WBC 14.9 H RBC 3.06 L Hgb 8.9 L Hct 26.4 L MCV 86.3 MCH 29.1 MCHC 33.7 RDW 11.9 Plt Count 305 MPV 10.2 Absolute Nucleated RBC 0.000 Nucleated RBC % (auto) 0.0 Hold Purple Top PT INR APTT D-Dimer High Sensitivty Sodium 132 L Potassium 3.3 Chloride 99 Carbon Dioxide 24 Anion Gap 12 BUN 8 L Creatinine 0.65 Estim Creat Clear Calc 106.1 Estimated GFR > 60 Random Glucose 108 Calcium 8.1 L Troponin I High Sens Urine Color Yellow Urine Appearance Clear Urine pH 6.0 Ur Specific [place] >= 1.030 H Urine Protein Trace Urine Glucose (UA) Negative Urine Ketones 15 Urine Blood Moderate (2+) H Urine Nitrite Negative Ur Leukocyte Esterase Trace H Urine RBC >20 H Urine WBC 11-20 H Ur Squamous Epith Cells 0-2 Urine Bacteria None Seen Hyaline Casts 0-2 Progress Note: A&P Assessment and plan (1) Atrial fibrillation with rapid ventricular response: Status: Acute (2) NSTEMI (non-ST elevated myocardial infarction): Status: Acute (3) Hematuria: Status: Acute (4) COVID: Status: Acute Plan Cardiac data reviewed in detail. Yesterday, he had atrial fibrillation with rapid rate for a few hours in the morning and a couple of hours in the evening but then resolved with IV amiodarone. He is still on amiodarone drip. Anticoagulation has been stopped because of profound urinary bleeding. Troponin went up but now coming down and most likely this is the demand related troponin leak in the setting of atrial fibrillation rapid rate as well as urinary bleeding. Type 2 event. Do not believe it is acute plaque rupture. More than likely, he has got fixed coronary disease and troponin leak is from demand from the rapid rates. In the echocardiogram, there is suggestion of inferolateral wall motion abnormality but I suspect it is previously seen as well based on review of images but not as clearly. Discussed with Dr. Gaspar by tiger text who states that there is a risk of profound urinary bleeding from antiplatelet/anticoagulation but he is willing to approve just aspirin. Hence may start that. Yesterday, he had low blood pressure but today pressure is on the higher side and hence okay for beta-blockers. Statins. Recently behind the above care discussed in detail with at the bedside as well as son over the phone and they are in full agreement. In the long run, he may need a Watchman device. To be decided once acute issues resolve. Discussed with Dr. Shelton. Time Spent With Patient Time: Total time managing care of this patient today ____ minutes. Progress Note: Quality Stroke Does the patient have a stroke diagnosis?: No Procedures Date of Service Date of Service: 04/08/24
--- NOTE | 2024-04-08 10:52 | PM.UROPN ---
Subjective Subjective Date of Service: 04/08/24 Interval history: Urine clear on examination this morning CBI clamped If remains clear Rasmussen catheter can be removed later this morning Discussion regarding risk management of cardiac events using dual therapy Patient suffered from NSTEMI This is a biochemical marker based assessment of cardiac strain There was no evidence of EKG changes Management of myocardial infarction differs based on degree of cardiac hypoxia One of the difficulties with high sensitivity cardiac troponin assays is that approximately 1/3 of patients who test positive do not have significant coronary artery disease when angiography is performed. This complicates immediate management option choices. Published data from the CURE cardiac trial showed that addition of antiplatelet therapy to aspirin alone had no benefit regarding cardiovascular . The benefit from addition of antiplatelet therapy to aspirin alone was a 20% decrease in rate of recurrent NV at 12 months. Given this patient's high risk of hemorrhage from antiplatelet therapy secondary to radiation cystitis the balance of risk from addition of antiplatelet therapy to aspirin in the setting of post NSTEMI is not positive and would not be recommended from a urologic perspective. Physical Exam Vital Signs: Vital Signs: Last Vital Signs Temp 98.8 F 04/08/24 07:07 Pulse 63 04/08/24 07:07 Resp 18 04/08/24 07:07 BP 146/68 H 04/08/24 07:07 Pulse Ox 95 04/08/24 07:07 O2 Del Method Room Air 04/08/24 07:07 BMI result Body Mass Index 25.1 Const: General: cooperative, healthy appearing, comfortable and no acute distress Orientation/consciousness: patient oriented x3 HEENT: Face and sinus: Yes normal facial exam Mouth: moist mucous membranes Neck: Neck: Yes normal visual inspection, Yes full ROM and Yes trachea midline Chest: Chest palpation & inspection: normal inspection of the chest Resp: Effort & Inspection: normal respiratory effort, able to speak in complete sentences and no respiratory distress GI: Inspection: Yes normal to inspection Back/Spine/Pelvis: Cervical Spine: normal cervical lordosis Thoracic/Lumbar Spine: thoracic and lumbar spine normal to inspection Skin: General skin exam: no rashes or lesions noted Neuro: General: patient oriented x3, tone normal and moves all extremities Extrem: General: Yes normal to inspection and Yes capillary refill normal Urology Results Labs 04/08/24 06:25 04/08/24 06:25 Labs: Laboratory Results - last 24 hr 04/07/24 04/07/2424 10:31 13:54 14:03 WBC RBC Hgb Hct MCV MCH MCHC RDW Plt Count MPV Absolute Nucleated RBC Nucleated RBC % (auto) Hold Purple Top SEE NOTE PT INR APTT D-Dimer High Sensitivty Sodium Potassium Chloride Carbon Dioxide Anion Gap BUN Creatinine Estim Creat Clear Calc Estimated GFR Random Glucose Calcium Troponin I High Sens 770.5 H* D 4982.1 H* D Urine Color Urine Appearance Urine pH Ur Specific [place] Urine Protein Urine Glucose (UA) Urine Ketones Urine Blood Urine Nitrite Ur Leukocyte Esterase Urine RBC Urine WBC Ur Squamous Epith Cells Urine Bacteria Hyaline Casts 04/07/24 04/07/24 04/08/24 20:09 20:16 01:06 WBC RBC Hgb Hct MCV MCH MCHC RDW Plt Count MPV Absolute Nucleated RBC Nucleated RBC % (auto) Hold Purple Top SEE NOTE PT 13.4 H INR 1.2 H APTT 28.7 D-Dimer High Sensitivty 438 Sodium Potassium Chloride Carbon Dioxide Anion Gap BUN Creatinine Estim Creat Clear Calc Estimated GFR Random Glucose Calcium Troponin I High Sens 5983.2 H* 3492.6 H* Urine Color Urine Appearance Urine pH Ur Specific [place] Urine Protein Urine Glucose (UA) Urine Ketones Urine Blood Urine Nitrite Ur Leukocyte Esterase Urine RBC Urine WBC Ur Squamous Epith Cells Urine Bacteria Hyaline Casts 04/08/24 04/08/24 06:25 08:10 WBC 14.9 H RBC 3.06 L Hgb 8.9 L Hct 26.4 L MCV 86.3 MCH 29.1 MCHC 33.7 RDW 11.9 Plt Count 305 MPV 10.2 Absolute Nucleated RBC 0.000 Nucleated RBC % (auto) 0.0 Hold Purple Top PT INR APTT D-Dimer High Sensitivty Sodium 132 L Potassium 3.3 Chloride 99 Carbon Dioxide 24 Anion Gap 12 BUN 8 L Creatinine 0.65 Estim Creat Clear Calc 106.1 Estimated GFR > 60 Random Glucose 108 Calcium 8.1 L Troponin I High Sens Urine Color Yellow Urine Appearance Clear Urine pH 6.0 Ur Specific [place] >= 1.030 H Urine Protein Trace Urine Glucose (UA) Negative Urine Ketones 15 Urine Blood Moderate (2+) H Urine Nitrite Negative Ur Leukocyte Esterase Trace H Urine RBC >20 H Urine WBC 11-20 H Ur Squamous Epith Cells 0-2 Urine Bacteria None Seen Hyaline Casts 0-2 Progress Note: A&P Assessment and plan (1) Radiation cystitis: Status: Acute Plan Outpatient cystoscopy Time Spent With Patient Time: Total time managing care of this patient today ____ minutes. Progress Note: Quality Stroke Does the patient have a stroke diagnosis?: No
[2024-04-08] MEDS: Aspirin 81 MG TAB.CHEW PO (12:14)
[2024-04-08] MEDS: Metoprolol Tartrate 25 MG TABLET PO ×2 (12:14→20:38)
--- NOTE | 2024-04-08 12:32 | PC.NURSE ---
[address] way da silva removed at 1200, resistance noted with removal, irrigated multiple times while removing catheter. small amount of clots noted. Patient tolerated well. Due to void at 1800. at bedside.
--- NOTE | 2024-04-08 16:54 | P.PNIM_ITS ---
Subjective Subjective Date of Service: 04/08/24 Interval History: Converted back to NSR overnight. On amiodarone drip. Urine cleared of blood. Rasmussen was removed mid-day. No chest pain. Pt's main issue is neck pain. Review of Systems Review of Systems: Yes all other systems are reviewed and are negative Physical Exam 2 Vital Signs: Vital Signs: Last Vital Signs Temp 97.6 F 04/08/24 16:00 Pulse 77 04/08/24 16:00 Resp 19 04/08/24 16:00 BP 122/56 L 04/08/24 16:00 Pulse Ox 95 04/08/24 16:00 O2 Del Method Room Air 04/08/24 16:00 BMI result Body Mass Index 25.1 en: in no acute distress HEENT: sclera anicteric, moist mucus membranes Neck: supple Lungs: clear to auscultation bilaterally Heart: regular rate and rhythm, no murmurs Abd: soft, non-tender, non-distended : improved scrotal swelling and bruising Ext: no edema Skin: warm/well-perfused Neuro: alert and oriented x3, no focal findings Psych: appropriate affect Objective Data Active Medications Acetaminophen (Acetaminophen 325 Mg Tablet) 650 mg PO Q6H PRN PRN Reason: Pain, Mild (Pain Scale 1-3), fever or headache Last Admin: 04/05/24 07:32 Dose: 650 mg Documented By: HUGO Amiodarone HCl (Amiodarone Hcl 200 Mg Tablet) 400 mg PO BID [facility] Aspirin (Aspirin 81 Mg Tab.Chew) 81 mg PO DAILY [facility] Last Admin: 04/08/24 12:14 Dose: 81 mg Documented By: JIMBO Atorvastatin Calcium (Atorvastatin Calcium 80 Mg Tablet) 80 mg PO DAILY [facility] Last Admin: 04/08/24 08:04 Dose: 80 mg Documented By: JIMBO Benzocaine (Throat Lozenge, Medicated Lozenge) 1 lozenge MUCOUS MEM Q2H PRN PRN Reason: Sore Throat/cough Last Admin: 04/08/24 03:10 Dose: 1 lozenge Documented By: JAYLAN Calcium Carbonate (Calcium Carbonate 750 Mg Tab.Chew) 750 mg PO Q4H PRN PRN Reason: Heartburn Cyclobenzaprine HCl (Cyclobenzaprine Hcl 10 Mg Tablet) 10 mg PO TID PRN PRN Reason: neck pain Last Admin: 04/07/24 20:31 Dose: 10 mg Documented By: JAYLAN Guaifenesin/Dextromethorphan (Guaifenesin Dm 200/20/10 Ml 10 Ml Syrup) 10 ml PO Q4H PRN PRN Reason: Cough Hydromorphone HCl (Hydromorphone Hcl 1 Mg/Ml Syringe) 1 mg IVPUSH Q3H PRN; Protocol PRN Reason: Pain, Severe (Pain Scale 7-10) Last Admin: 04/08/24 12:13 Dose: 1 mg Documented By: JIMBO Amiodarone HCl 900 mg/ Sodium (Chloride) 518 mls @ 34.533 mls/hr IVCONT .Q15H1M [facility]; Protocol Last Admin: 04/08/24 08:04 Dose: 1 mg/min, 34.53 mls/hr Documented By: JIMBO Latanoprost (Latanoprost 0.005 % Ophth Yuly 2.5 Ml Drops) 1 drop EYE-BOTH BEDTIME [facility] Last Admin: 04/07/24 22:05 Dose: Not Given Documented By: JAYLAN Non-Admin Reason: Med Not Available Magnesium Hydroxide (Milk Of Magnesia 30 Ml Oral.Susp) 30 ml PO DAILY PRN PRN Reason: Constipation Melatonin (Melatonin 3 Mg Tablet) 6 mg PO BEDTIME PRN PRN Reason: Insomnia Last Admin: 04/07/24 22:45 Dose: 6 mg Documented By: JAYLAN Metoprolol Tartrate (Metoprolol Tartrate 25 Mg Tablet) 25 mg PO BID [facility]; Protocol Last Admin: 04/08/24 12:14 Dose: 25 mg Documented By: JIMBO Omeprazole (Omeprazole 40 Mg Capsule.Dr) 40 mg PO DAILY@0630 [facility] Last Admin: 04/08/24 06:39 Dose: 40 mg Documented By: JAYLAN Ondansetron HCl (Ondansetron Hcl 4 Mg/2 Ml Vial) 4 mg IVPUSH Q8H PRN PRN Reason: Nausea and Vomiting Oxycodone HCl (Oxycodone Hcl Immed Release 5 Mg Tablet) 5 mg PO TID PRN PRN Reason: Pain Last Admin: 04/08/24 08:04 Dose: 5 mg Documented By: JIMBO Ropinirole HCl (Ropinirole Hcl 0.25 Mg Tablet) 0.25 mg PO BEDTIME [facility] Last Admin: 04/07/24 20:31 Dose: 0.25 mg Documented By: JAYLAN Sodium Chloride (0.9 % Sodium Chloride Flush 3 Ml Syringe) 3 ml IVFLUSH QSHIFT [facility] Last Admin: 04/08/24 08:07 Dose: 3 ml Documented By: JIMBO Trolamine Salicylate (Trolamine Salicylate 10 % Cream 141 Gm Tube) 1 appl TOPICAL QID PRN; Protocol PRN Reason: neck muscle spasm Last Admin: 04/07/24 17:51 Dose: 1 appl Documented By: WOYTOWL Labs 04/08/24 06:25 04/08/24 06:25 Labs: Laboratory Results - last 24 hr 04/07/24 04/07/24 04/08/24 20:09 20:16 01:06 MCV MCH MCHC RDW Plt Count MPV Absolute Nucleated RBC Nucleated RBC % (auto) Hold Purple Top SEE NOTE PT 13.4 H INR 1.2 H APTT 28.7 D-Dimer High Sensitivty 438 Anion Gap Estim Creat Clear Calc Estimated GFR Random Glucose Calcium Magnesium Troponin I High Sens 5983.2 H* 3492.6 H* Urine Color Urine Appearance Urine pH Ur Specific [place] Urine Protein Urine Glucose (UA) Urine Ketones Urine Blood Urine Nitrite Ur Leukocyte Esterase Urine RBC Urine WBC Ur Squamous Epith Cells Urine Bacteria Hyaline Casts 04/08/24 04/08/24 04/08/24 06:25 08:10 10:40 MCV 86.3 MCH 29.1 MCHC 33.7 RDW 11.9 Plt Count 305 MPV 10.2 Absolute Nucleated RBC 0.000 Nucleated RBC % (auto) 0.0 Hold Purple Top PT INR APTT D-Dimer High Sensitivty Anion Gap 12 Estim Creat Clear Calc 106.1 Estimated GFR > 60 Random Glucose 108 Calcium 8.1 L Magnesium 2.0 Troponin I High Sens Urine Color Yellow Urine Appearance Clear Urine pH 6.0 Ur Specific [place] >= 1.030 H Urine Protein Trace Urine Glucose (UA) Negative Urine Ketones 15 Urine Blood Moderate (2+) H Urine Nitrite Negative Ur Leukocyte Esterase Trace H Urine RBC >20 H Urine WBC 11-20 H Ur Squamous Epith Cells 0-2 Urine Bacteria None Seen Hyaline Casts 0-2 Microbiology Microbiology Results: Microbiology 04/07/24 10:31 Blood Culture - Preliminary Blood - Venous No growth after 24 hours. 04/07/24 10:31 Blood Culture - Preliminary Blood - Venous No growth after 24 hours. 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 clot pAF - Recurred yesterday and was given 2 doses IV digoxin and IV amiodarone load then drip. Has now converted to NSR again. After amiodarone drip ends tonight, we will continue loading with 400 mg PO bid x10 days, then maintenance 200 mg daily. Pt's prior antiarrhythmic [dronedarone] has been discontinued. Starting metoprolol given NSTEMI - No more apixaban per Urology given irradiated bladder. Should have outpt evaluation for Watchman device. A second, less safe option, would be warfarin. NSTEMI - Had normal nuclear stress test in August though suboptimal study. TTE 04/07: - The left ventricular systolic function is low normal. The calculated ejection fraction is 52% by biplane method. - The basal inferolateral segment is hypokinetic. - No obvious valvular pathology seen on this study. - per Cardiology, likely fixed coronary disease with troponin leak from demand ischemia from hypotensive episode after PCC and AF/RVR. - per Urology, since urine clear, start ASA cautiously today. - also intensified statin to atorva 80 mg and starting metoprolol 25 mg bid hematuria associated with ureteral mass vs. clot - Last Eliquis was 03/31/24. Given PCC 04/06/24 at recommendation of urologist. Tentatively planned for OR 04/07 but then bedside irrigation of Rasmussen was done with multiple clots flushed until urine ran clear. No inpatient operative intervention planned. To follow up with Urology as outpatient for cystoscopy. acute blood loss anemia - monitor H+H; remains above transfusion threshold scrotal edema - received antibiotic coverage with clindamycin/pip-ervin/dapto 04/02-; also was on PO vancomycin given hx of Cdiff. ID and Urology consulted. Doubt gangrene; more likely bruising/swelling related to Rasmussen per both ID and Urology sclerotic iliac lesion - suspicion for metastatic prostate CA, will need Oncology outpatient follow-up hypoNa, resolved - corrected at appropriate rate Covid-19 infection - never hypoxic and has been >5d since onset; per ID can d/c isolation RLS - continue ropinirole HLD - continue statin GERD - continue PPI chronic pain - prn oxycodone, IV hydromorphone for acute pain of bladder spasm neck muscle spasm - Aspercreme, cyclobenzaprine, oxycodone VTE ppx - SCDs; no AC due to hematuria dispo - per PT eval, STR recommended In my clinical judgment, the patient requires continued inpatient hospitalization for the following reasons: hematuria, NSTEMI, AF/RVR Total time managing care of this patient today: 50 minutes. Quality Stroke Does the patient have a stroke diagnosis?: No VTE Prior VTE?: No VTE Risk Level:: Medical - moderate - high VTE Device Contraindication: N/A - Device Ordered VTE Drug Contraindication: Treatment Not Indicated
--- NOTE | 2024-04-08 18:00 | P.CDIM_ITS ---
PROVIDER RESPONSE TEXT: To clarify, the appropriate diagnosis supported by the clinical indicators: Acute Blood Loss Anemia QUERY TEXT: PHYSICIAN'S DOCUMENTATION REQUEST Date of Query: 04/06/2024 08:56 AM EST Patient Name: Clifford Khan Admit Date: 04/01/2024 Dear Juliet Shelton MD, A review of the medical record indicates additional documentation may be needed. Please review below and update the documentation accordingly. A diagnosis of hematuria was included in the signed Urology Progress Note 04/05/24. On CBI and Eliqui s reversing Additional clinical indicators in the record include: PMH: prostate cancer H&H on 04/01/24: 13.1/37.9 H&H on 04/05/24: 9.9/28.7 Please indicate diagnosis for the labs for this patient: Acute Blood Loss Anemia Other Anemia, please specify Other (explain) Clinically unable to determine (explain) Thank you, Heather Sainz RN Use of terms such as suspected, likely, concern for, or probable (associated with a specific diagnosi s that is being evaluated, monitored, or treated as if it exists) are acceptable and can be coded in the inpatient se tting, when documented at the time of discharge. Please use your independent medical judgment in providing your response. THIS QUERY IS PART OF THE PERMANENT MEDICAL RECORD
[2024-04-08] MEDS: Latanoprost 0.005 % Ophth Sol 2.5 ML DROPS 1 DROP EYE-BOTH (20:37)
[2024-04-08] MEDS: Amiodarone HCL 200 MG TABLET 400 MG PO (20:38)
[2024-04-08] MEDS: rOPINIRole HCL 0.25 MG TABLET PO (20:38)
[2024-04-09 03:06] VITALS: BP 150/64; PULSE 73; RESP 18; TEMP 36.7; O2SAT 95
[2024-04-09] MEDS: HYDROmorphone HCl 1 MG/ML SYRINGE IVPUSH ×5 (04:31→21:35)
--- NOTE | 2024-04-09 05:24 | PC.NURSE ---
Patient's CBI discontinued yesterday at 12 noon. Initially last evening urine was bright red. Dr. Gaspar notified. Encouraged to drink plenty of water. Patient has been requesting to get up to bathroom, and is refusing urinal at this time. Patient has urinated several times throughout night. Having some diarrhea, urine is now clear yellow. Will continue to monitor.
[2024-04-09] MEDS: Omeprazole 40 MG CAPSULE.DR PO (06:08)
[2024-04-09 06:38] LABS: Hematocrit 25.9 % (42.0-52.0); Mean Corpuscular HGB Conc 34.7 g/dl (31.0-36.0); Mean Corpuscular Hemoglobin 29.5 pg (27.0-33.0); Mean Corpuscular Volume 84.9 fL (80.0-98.0); Mean Platelet Volume 9.8 fL (9.4-12.4); Platelet Count 346 X10*3/uL (160-400); Red Blood Count 3.05 X10*6/uL (4.60-5.80); Red Cell Distribution Width 11.8 % (11.0-16.0)
[2024-04-09 06:51] LABS: Anion Gap 12 (12-20); Blood Urea Nitrogen 9 mg/dL (9-16); C Reactive Protein 10.42 mg/dL (< or = 0.50); Calcium 8.4 mg/dL (8.4-10.2); Carbon Dioxide 27 mmol/L (22-29); Chloride 100 mmol/L (96-108); Estimated Glomerular Filt Rate > 60; Glucose Random 117 mg/dL (60-115); Potassium 3.8 mmol/L (3.3-5.1); Sodium 135 mmol/L (135-145)
[2024-04-09] MEDS: Amiodarone HCL 200 MG TABLET 400 MG PO ×2 (07:43→21:31)
[2024-04-09] MEDS: Atorvastatin Calcium 80 MG TABLET PO (07:43)
[2024-04-09] MEDS: Aspirin 81 MG TAB.CHEW PO (07:43)
[2024-04-09] MEDS: Metoprolol Tartrate 25 MG TABLET PO ×2 (07:44→21:31)
[2024-04-09 07:49] VITALS: BP 121/63; PULSE 68; RESP 20; TEMP 36.3; O2SAT 96
[2024-04-09] MEDS: 0.9 % Sodium Chloride Flush 3 ML SYRINGE IVFLUSH ×3 (07:52→21:35)
--- NOTE | 2024-04-09 08:40 | MHC.CM.PN ---
PT is recommending STR; CM will follow.
[2024-04-09] MEDS: oxyCODONE HCl Immed Release 5 MG TABLET PO ×2 (10:24→15:25)
--- NOTE | 2024-04-09 11:32 | P.PNCA_ITS ---
Subjective Subjective Date of Service: 04/09/24 Interval history: He states he feels fine. No cardiac complaints. No chest pain whatsoever. is also at the bedside. Review of Systems Review of Systems Yes all other systems are reviewed and are negative Constitutional: Reports as per HPI and Reports no additional constitutional complaints Eyes: Reports as per HPI and Denies no additional eye complaints Denies system reviewed and no additional complaints, except as documented and Reports as per HPI Cardiovascular: Reports as per HPI, Reports no additional cardiovascular complaints, Denies acrocyanosis, Denies cool extremities, Denies chest pain, Denies leg edema, Denies lightheadedness, Denies palpitations and Denies dyspnea Respiratory: Reports as per HPI, Denies no additional respiratory complaints and Denies dyspnea Gastrointestinal: Reports as per HPI and Denies no additional gastrointestinal complaints Genitourinary: Reports no additional male genitourinary complaints and Reports as per HPI Musculoskeletal: Reports no additional musculoskeletal complaints and Reports as per HPI Skin/Breast: Reports system reviewed and no additional complaints, except as docu Reports system reviewed and no additional complaints, except as documented and Reports as per HPI Psychiatric: Reports no additional psychiatric complaints and Reports as per HPI Endocrine: Reports no additional endocrine complaints, Reports as per HPI and Denies palpitations Hematologic/Lymphatic: Reports no additional hematologic/lymphatic complaints and Reports as per HPI Allergic/Immunologic: Reports no additional allergic/immunologic complaints and Reports as per HPI Physical Exam Vital Signs: Last Vital Signs Temp 97.4 F 04/09/24 07:49 Pulse 68 04/09/24 07:49 Resp 20 04/09/24 07:49 BP 121/63 04/09/24 07:49 Pulse Ox 96 04/09/24 07:49 O2 Del Method Room Air 04/09/24 07:49 BMI result Body Mass Index 25.1 Const General: comfortable and no acute distress Orientation/consciousness: patient oriented x3 HEENT Other: Unremarkable Head: Yes normal to inspection Neck Neck: Yes normal visual inspection Chest Chest palpation & inspection: normal inspection of the chest Resp Auscultation: clear to auscultation bilaterally Cardio Palpation: normal PMI Heart sounds: S1 normal heart sound present, S2 normal heart sound present, no gallops, no murmurs and no rubs GI Palpation (GI): Soft to palpation Back/Spine/Pelvis Other: unremarkable Skin General skin exam: no rashes or lesions noted Neuro General: patient oriented x3 Extrem General: Yes normal to inspection Psych Mental Status: mental status grossly normal Objective Labs and Meds 04/09/24 06:19 04/09/24 06:19 Lab results: Laboratory Results - last 24 hr 04/09/24 06:19 WBC 14.0 H RBC 3.05 L Hgb 9.0 L Hct 25.9 L MCV 84.9 MCH 29.5 MCHC 34.7 RDW 11.8 Plt Count 346 MPV 9.8 Absolute Nucleated RBC 0.000 Nucleated RBC % (auto) 0.0 Sodium 135 Potassium 3.8 Chloride 100 Carbon Dioxide 27 Anion Gap 12 BUN 9 Creatinine 0.75 Estim Creat Clear Calc 92.0 Estimated GFR > 60 Random Glucose 117 H Calcium 8.4 C-Reactive Protein 10.42 H Imaging Radiologist's impression: Impressions Head/Neck CTA 04/08/24 02:00 IMPRESSION: 1. No evidence of acute intracranial hemorrhage or edematous territorial infarction. Mild underlying microangiopathy. 2. CTA of the head and neck without proximal occlusion. 3. 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 4. Advanced multilevel degenerative spondyloarthropathy of the cervical spine. Most notably on this limited exam without intrathecal contrast, there appears to be at least moderate spinal canal stenoses from C5-C7. Osseous encroachment on the neural foramina from C3-T1. 5. Prominent chronic left maxillary sinusitis. Electronically signed by: Lucas Silva DO 04/08/2024 03:49 PM [facility] [place]: A&P Assessment and plan (1) Atrial fibrillation with rapid ventricular response: Status: Acute (2) NSTEMI (non-ST elevated myocardial infarction): Status: Acute (3) Hematuria: Status: Acute (4) COVID: Status: Acute Plan Cardiac data reviewed in detail. Atrial fibrillation issue is resolved now with IV amiodarone and he has switched to p.o.. May continue that with loading dose 400 mg b.i.d. for 2 weeks followed by maintenance 200 mg daily. With regard to anticoagulation, contraindicated per Urology. Hence okay for aspirin. Eventually Watchman device. With regard to NSTEMI, could not anticoagulated again because of significant urinary bleeding. Clinically, no symptoms. Continue aspirin, beta-blockers, statins. Ischemic workup will need to be decided as even if we pursue a diagnostic catheterization/PCI, he will not be able to tolerate dual antiplatelet therapy. Hence more than likely conservative care only. We will need to watch out for any symptoms like angina. Outpatient follow-up will be arranged. Discussed with at the bedside and she is fully agreeable. Time Spent With Patient Time: Total time managing care of this patient today ____ minutes. Progress Note: Quality Stroke Does the patient have a stroke diagnosis?: No Procedures Date of Service Date of Service: 04/09/24
[2024-04-09 12:00] VITALS: BP 111/55; PULSE 61; RESP 20; TEMP 36.1; O2SAT 97
--- NOTE | 2024-04-09 13:11 | HO.PM.IMPN ---
Subjective Subjective Date of Service: 04/09/24 Physical Exam Vital Signs: Vital Signs: Last Vital Signs Temp 97.0 F 04/09/24 12:00 Pulse 61 04/09/24 12:00 Resp 20 04/09/24 12:00 BP 111/55 L 04/09/24 12:00 Pulse Ox 97 04/09/24 12:00 O2 Del Method Room Air 04/09/24 12:00 BMI result Body Mass Index 25.1 Objective Data Active Medications Acetaminophen (Acetaminophen 325 Mg Tablet) 650 mg PO Q6H PRN PRN Reason: Pain, Mild (Pain Scale 1-3), fever or headache Last Admin: 04/05/24 07:32 Dose: 650 mg Documented By: HUGO Amiodarone HCl (Amiodarone Hcl 200 Mg Tablet) 400 mg PO BID [facility] Last Admin: 04/09/24 07:43 Dose: 400 mg Documented By: RYANNE Aspirin (Aspirin 81 Mg Tab.Chew) 81 mg PO DAILY [facility] Last Admin: 04/09/24 07:43 Dose: 81 mg Documented By: RYANNE Atorvastatin Calcium (Atorvastatin Calcium 80 Mg Tablet) 80 mg PO DAILY [facility] Last Admin: 04/09/24 07:43 Dose: 80 mg Documented By: RYANNE Benzocaine (Throat Lozenge, Medicated Lozenge) 1 lozenge MUCOUS MEM Q2H PRN PRN Reason: Sore Throat/cough Last Admin: 04/08/24 03:10 Dose: 1 lozenge Documented By: JAYLAN Calcium Carbonate (Calcium Carbonate 750 Mg Tab.Chew) 750 mg PO Q4H PRN PRN Reason: Heartburn Cyclobenzaprine HCl (Cyclobenzaprine Hcl 10 Mg Tablet) 10 mg PO TID PRN PRN Reason: neck pain Last Admin: 04/07/24 20:31 Dose: 10 mg Documented By: JAYLAN Guaifenesin/Dextromethorphan (Guaifenesin Dm 200/20/10 Ml 10 Ml Syrup) 10 ml PO Q4H PRN PRN Reason: Cough Hydromorphone HCl (Hydromorphone Hcl 1 Mg/Ml Syringe) 1 mg IVPUSH Q3H PRN; Protocol PRN Reason: Pain, Severe (Pain Scale 7-10) Last Admin: 04/09/24 07:44 Dose: 1 mg Documented By: RYANNE Latanoprost (Latanoprost 0.005 % Ophth Yuly 2.5 Ml Drops) 1 drop EYE-BOTH BEDTIME [facility] Last Admin: 04/08/24 20:37 Dose: 1 drop Documented By: WILFREDO Magnesium Hydroxide (Milk Of Magnesia 30 Ml Oral.Susp) 30 ml PO DAILY PRN PRN Reason: Constipation Melatonin (Melatonin 3 Mg Tablet) 6 mg PO BEDTIME PRN PRN Reason: Insomnia Last Admin: 04/07/24 22:45 Dose: 6 mg Documented By: JAYLAN Metoprolol Tartrate (Metoprolol Tartrate 25 Mg Tablet) 25 mg PO BID [facility]; Protocol Last Admin: 04/09/24 07:44 Dose: 25 mg Documented By: RYANNE Omeprazole (Omeprazole 40 Mg Capsule.Dr) 40 mg PO DAILY@0630 [facility] Last Admin: 04/09/24 06:08 Dose: 40 mg Documented By: WILFREDO Ondansetron HCl (Ondansetron Hcl 4 Mg/2 Ml Vial) 4 mg IVPUSH Q8H PRN PRN Reason: Nausea and Vomiting Oxycodone HCl (Oxycodone Hcl Immed Release 5 Mg Tablet) 5 mg PO TID PRN PRN Reason: Pain Last Admin: 04/09/24 10:24 Dose: 5 mg Documented By: RYANNE Ropinirole HCl (Ropinirole Hcl 0.25 Mg Tablet) 0.25 mg PO BEDTIME [facility] Last Admin: 04/08/24 20:38 Dose: 0.25 mg Documented By: WILFREDO Sodium Chloride (0.9 % Sodium Chloride Flush 3 Ml Syringe) 3 ml IVFLUSH QSHIFT [facility] Last Admin: 04/09/24 07:52 Dose: 3 ml Documented By: RYANNE Trolamine Salicylate (Trolamine Salicylate 10 % Cream 141 Gm Tube) 1 appl TOPICAL QID PRN; Protocol PRN Reason: neck muscle spasm Last Admin: 04/07/24 17:51 Dose: 1 appl Documented By: WOYTOWL Labs 04/09/24 06:19 04/09/24 06:19 Labs: Laboratory Results - last 24 hr 04/09/24 06:19 MCV 84.9 MCH 29.5 MCHC 34.7 RDW 11.8 Plt Count 346 MPV 9.8 Absolute Nucleated RBC 0.000 Nucleated RBC % (auto) 0.0 Anion Gap 12 Estim Creat Clear Calc 92.0 Estimated GFR > 60 Random Glucose 117 H Calcium 8.4 C-Reactive Protein 10.42 H Microbiology Microbiology Results: Microbiology 04/07/24 10:31 Blood Culture - Preliminary Blood - Venous No growth after 48 hours. 04/07/24 10:31 Blood Culture - Preliminary Blood - Venous No growth after 48 hours. 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 clot PAF s/p IV digoxin and IV amiodarone load then drip. Has now converted to NSR again. continue loading with 400 mg PO bid x10 days, then maintenance 200 mg daily. Pt's prior antiarrhythmic [dronedarone] has been discontinued. Starting metoprolol given NSTEMI No more apixaban per Urology given irradiated bladder. Should have outpt evaluation for Watchman device, A second, less safe option, would be warfarin. NSTEMI Had normal nuclear stress test in August though suboptimal study. TTE 04/07 EF 52% Trop leak from demand ischemia from hypotension after afib rvr statin to high dose Started Metoprolol 25 mg BID Hematuria associated with ureteral mass vs. clot Last Eliquis was 03/31/24. Given PCC 04/06/24 at recommendation of urologist. Tentatively planned for OR 04/07 but then bedside irrigation of Rasmussen was done with multiple clots flushed until urine ran clear. No inpatient operative intervention planned. To follow up with Urology as outpatient for cystoscopy. Acute blood loss anemia monitor H+H; remains above transfusion threshold Scrotal edema received antibiotic coverage with clindamycin/pip-ervin/dapto 04/02-; also was on PO vancomycin given hx of Cdiff. ID and Urology consulted. Doubt gangrene; more likely bruising/swelling related to Rasmussen per both ID and Urology sclerotic iliac lesion suspicion for metastatic prostate CA will need Oncology outpatient follow-up HypoNa, resolved corrected Covid-19 infection never hypoxic and has been >5d since onset; per ID can d/c isolation RLS continue ropinirole HLD continue statin GERD continue PPI chronic pain prn oxycodone, IV hydromorphone for acute pain of bladder spasm neck muscle spasm Aspercreme, cyclobenzaprine, oxycodone VTE ppx CDs; no AC due to hematuria dispo per PT eval, STR recommended In my clinical judgment, the patient requires continued inpatient hospitalization for the following reasons: hematuria, NSTEMI, AF/RVR Total time managing care of this patient today: 50 minutes. Quality Stroke Does the patient have a stroke diagnosis?: No VTE Prior VTE?: No VTE Risk Level:: Medical - moderate - high VTE Device Contraindication: N/A - Device Ordered VTE Drug Contraindication: Treatment Not Indicated
[2024-04-09 16:00] VITALS: BP 108/48; PULSE 108; RESP 20; TEMP 36.7; O2SAT 97
[2024-04-09 20:00] VITALS: BP 142/67; PULSE 85; RESP 18; TEMP 36.4; O2SAT 97
[2024-04-09] MEDS: rOPINIRole HCL 0.25 MG TABLET PO (21:31)
[2024-04-09] MEDS: Latanoprost 0.005 % Ophth Sol 2.5 ML DROPS 1 DROP EYE-BOTH (21:40)
[2024-04-09 22:55] VITALS: BP 128/62; PULSE 75; RESP 18; TEMP 36.7; O2SAT 96
[2024-04-10] MEDS: HYDROmorphone HCl 1 MG/ML SYRINGE IVPUSH ×3 (01:32→08:55)
[2024-04-10 02:58] VITALS: BP 128/60; PULSE 62; RESP 18; TEMP 36.1; O2SAT 97
[2024-04-10] MEDS: Omeprazole 40 MG CAPSULE.DR PO (05:05)
[2024-04-10] MEDS: oxyCODONE HCl Immed Release 5 MG TABLET PO (07:35)
[2024-04-10 08:00] VITALS: BP 128/61; PULSE 64; RESP 20; TEMP 36.6; O2SAT 6
[2024-04-10] MEDS: Metoprolol Tartrate 25 MG TABLET PO (08:24)
[2024-04-10] MEDS: Atorvastatin Calcium 80 MG TABLET PO (08:25)
[2024-04-10] MEDS: Aspirin 81 MG TAB.CHEW PO (08:25)
[2024-04-10] MEDS: Amiodarone HCL 200 MG TABLET 400 MG PO (08:25)
[2024-04-10] MEDS: 0.9 % Sodium Chloride Flush 3 ML SYRINGE IVFLUSH (08:27)
--- NOTE | 2024-04-10 08:57 | PM.DS ---
DS: Providers Provider Date of Service: 04/10/24 Date of admission: 03/31/24 23:36 Primary care physician: Shahnaz Noel MD Consults: 03/31/24 23:35 Consult to Urology [place]ine [place] [facility] [place] [facility] Reason for consultation: hematuria 04/02/24 07:44 Consult to Infectious Diseases Routine Consulting Provider: Radha Anderson Reason for consultation: Neymar's gangrene? 04/06/24 10:00 Consult to Infectious Diseases ONCE [place]ing [place] [facility] [place] [facility] Reason for consultation: daptomycin continuation 04/07/24 07:23 Consult to Cardiology Routine Consulting Provider[place] [facility] [place] [facility] Reason for consultation: rapid afib DS: Diagnosis Discharge Diagnosis (1) Hematuria: Status: Acute DS: Summary Hospital Course Hospital Course: History and physical as per admitting provider. This is a 73-year-old male with pertinent history of prostate cancer status post radiation, atrial fibrillation on Eliquis, restless leg syndrome, mixed hyperlipidemia, gastroesophageal reflux disease, chronic pain with chronic opioid use who presents to the emergency department for evaluation of blood in urine. He noticed blood in urine on the day of presentation. It has been persistent. No clots noted. Patient took a home test and tested positive for COVID-19 infection. His also has COVID as per the patient. No dyspnea or chest pain. Hematuria is painless and patient denies nausea, vomiting or abdominal pain. No fever, chills, palpitations, changes in bowel habits. In the emergency department, imaging with suspected ureteral mass. Urology was consulted who requested admission. PAF s/p IV digoxin and IV amiodarone load then drip. Converted to NSR again. Continue loading with 400 mg PO bid x8 days, then maintenance 200 mg daily. Pt's prior antiarrhythmic [dronedarone] has been discontinued. Started on metoprolol 25mg BID given NSTEMI. No more apixaban per Urology given irradiated bladder and bleeding risk. Should have outpt evaluation for Watchman device, A second, less safe option, would be warfarin. NSTEMI Had normal nuclear stress test in August though suboptimal study. TTE 04/07 EF 52%. Trop leak from demand ischemia from hypotension after afib rvr. statin to high dose 80 mg daily. Started Metoprolol 25 mg BID Hematuria associated with ureteral mass vs. clot. Last Eliquis was 03/31/24. Given PCC 04/06/24 at recommendation of urologist. Tentatively planned for OR 04/07 but then bedside irrigation of Rasmussen was done with multiple clots flushed until urine ran clear. No inpatient operative intervention planned. Follow up with Urology as outpatient for cystoscopy. Acute blood loss anemia remained above transfusion threshold Scrotal edema received antibiotic coverage with clindamycin/pip-ervin/dapto , no gangrene; more likely bruising/swelling related to Rasmussen per both ID and Urology sclerotic iliac lesion suspicion for metastatic prostate CA. will need Oncology outpatient follow-up HypoNa, resolved corrected Covid-19 infection never hypoxic and has been >5d since onset; per ID can d/c isolation RLS continue ropinirole HLD continue statin GERD continue PPI chronic pain prn oxycodone, treated with IV Dilaudid for bladder spasms, home with 5 days of oral Dilaudid for breakthrough pain neck muscle spasm Aspercreme, cyclobenzaprine, oxycodone Time Attestation Discharge Coordination Time (in mins): 40 Quality: Safe Use of Opioids Does Pt have an Active Cancer Diagnosis on the Problem List?: No Quality: Stroke Does the patient have a stroke diagnosis?: No Physical Exam Vital Signs: Vital Signs: Last Vital Signs Temp 97.8 F 04/10/24 08:00 Pulse 64 04/10/24 08:00 Resp 20 04/10/24 08:00 BP 128/61 04/10/24 08:00 Pulse Ox 6 L 04/10/24 08:00 O2 Del Method Room Air 04/10/24 08:00 BMI result Body Mass Index 25.1 Appearing in no acute distress head is normocephalic atraumatic eyes pupils are PERRLA sclera is anicteric mouth throat mucous membranes are intact and moist neck is supple no lymphadenopathy, no JVD noted lung sounds are clear to auscultation heart regular rate rhythm, clear S1, S2 positive bowel sounds, abdomen is soft, nontender neuro patient is alert x3, no focal deficits DS: Data Data Completed and Pending Labs on day of discharge: Preliminary micro results at discharge 04/07/24 10:31 Blood Culture - Preliminary Blood - Venous No growth after 48 hours. 04/07/24 10:31 Blood Culture - Preliminary Blood - Venous No growth after 48 hours. Discharge Plan Discharge Anticipated Discharge Date/Time: 04/10/24 08:32 Patient Disposition: Home Health Service Discharge Diagnosis: Paroxysmal atrial fibrillation with rapid ventricular response NSTEMI Hematuria associated with ureteral mass versus clot Acute blood loss anemia Scrotal edema Hyponatremia COVID-19 Referrals: Jeronimo Gaspar MD [Physician] - None Shahnaz Noel MD [Primary Care Provider] - 1 Week James Craft MD [Physician] - None Discharge Medications: New atorvastatin 80 mg Tablet 80 mg PO DAILY Qty: 30 0RF amiodarone 200 mg Tablet 400 mg PO BID Qty: 54 0RF Rx Instructions: 400 mg twice daily for 8 days then 200 mg daily metoprolol tartrate 25 mg Tablet 25 mg PO BID Qty: 60 0RF Protocol: Hold for SBP/HR < HOLD for SBP < : 90 HOLD for HR < : 60 hydromorphone [Dilaudid] 2 mg tablet 2 mg PO BID PRN (Reason: pain) 5 Days Qty: 10 0RF Rx Instructions: Partial Fill upon patient request. Continued omeprazole 20 mg Capsule,Delayed Release(Dr/Ec) 40 mg PO DAILY@0630 ropinirole 0.25 mg Tablet 0.25 mg PO BEDTIME latanoprost 0.005 % Drops 1 drp OPHTHALMIC (EYE) BEDTIME oxycodone-acetaminophen [Percocet] 5-325 mg Tablet 1 tab PO TID PRN (Reason: Pain) lidocaine 5 % Adhesive Patch,Medicated 1 patch TOPICAL DAILY PRN (Reason: Pain) Rx Instructions: leave on most painful area for up to 12 hrs ondansetron 4 mg Tablet,Disintegrating 4 mg PO DAILY PRN (Reason: Nausea And Vomiting) food supplemt, lactose-reduced Liquid 1 ea PO DAILY naloxone 4 mg/actuation Delong,Non-Aerosol 4 mg INTRANASAL Q3M PRN (Reason: Opioid Reversal) Rx Instructions: spray 1 dose into ONE nostril; alternate nostrils w each dose until help arrives Discontinued Eliquis 5 mg tablet 5 mg PO BID 90 Days Qty: 180 3RF Multaq 400 mg tablet 400 mg PO BID 90 Days Qty: 180 3RF lovastatin 20 mg Tablet 20 mg PO BEDTIME Discharge Orders: Discharge Order (Routine); Ordered 04/10/24 Ordered By: Christine Mirza Diet: Advance to usual diet Activity on Discharge: As tolerated Stand Alone Forms: Patient Portal Discharge page Print Language: [place] Care Plan Goals: New has been started on new medications: Amiodarone 400 mg twice daily for 8 more days then 200 mg daily Metoprolol 25 mg twice a day Atorvastatin 80 mg daily Health Concerns: Paroxysmal atrial fibrillation with rapid ventricular response NSTEMI Hematuria associated with ureteral mass versus clot Acute blood loss anemia Scrotal edema Hyponatremia COVID-19 Plan of Treatment: Follow-up with primary care provider as needed Take all medications as prescribed Assessment: See discharge summary
--- NOTE | 2024-04-10 11:10 | MHC.CM.PN ---
Pt is medically cleared for discharge home self-care, pts to transport him home.
== END 2024-04-10 10:22 | disposition home health service (06) | DRG 698 ==
LOC: HO.ED 22:59 → HO.EDOVER 04-01 00:17 → HO.IMC 04-01 19:04 → HO.ICU 04-06 18:09 → HO.IMC 04-06 21:22
PROVIDERS: Family Medicine; Internal Medicine; Physician Assistant; Admitting Provider Student in an Organized Health Care Education/Training Program; Emergency Provider Emergency Medicine Emergency Medical Services; PCP Internal Medicine; Visit Provider Nurse Practitioner Acute Care
DX: N30.41 Irradiation cystitis with hematuria (principal); I21.A1 Myocardial infarction type 2; U07.1 COVID-19; C79.51 Secondary malignant neoplasm of bone; E87.1 Hypo-osmolality and hyponatremia; D62 Acute posthemorrhagic anemia; N28.89 Other specified disorders of kidney and ureter; I49.1 Atrial premature depolarization; N50.89 Other specified disorders of the male genital organs; T66.XXXS Radiation sickness, unspecified, sequela; I48.0 Paroxysmal atrial fibrillation; K21.9 Gastro-esophageal reflux disease without esophagitis; G89.29 Other chronic pain; G25.81 Restless legs syndrome; E78.2 Mixed hyperlipidemia; Z85.46 Personal history of malignant neoplasm of prostate; Z79.899 Other long term (current) drug therapy
CPT/HCPCS: 0241U; 36415; 70496; 70498; 74177; 80048; 80076; 81001; 82550; 83036; 83605; 83690; 83735; 83930; 83935; 84295; 84300; 84484; 85025; 85027; 85379; 85610; 85730; 86140; 86704; 86706; 86709; 86803; 86850; 86900; 86901; 87040; 87340; 87389; 93005; 93306; 93356; 97162; 97530; 99285; C1758; J0282; J0283; J0736; J0878; J1160; J1171; J2270; J2543; J7120; J7168; Q9957; Q9967

== ENCOUNTER → 2024-03-31 16:39 | Outpatient (BNV) | payer OTHER, SELFPAY | PROVIDERS: Emergency Provider Emergency Medicine Emergency Medical Services; Visit Provider Student in an Organized Health Care Education/Training Program | DX: R31.9 Hematuria, unspecified (principal) | CPT/HCPCS: 99223; 99231; 99232; 99233; 99239; 99499 ==

== ENCOUNTER 2024-03-31 23:36 | Outpatient (BNV) | payer OTHER, SELFPAY | END 2024-04-07 07:00 | PROVIDERS: Admitting Provider Student in an Organized Health Care Education/Training Program; Emergency Provider Emergency Medicine Emergency Medical Services; PCP Internal Medicine; Visit Provider Internal Medicine | DX: R94.31 Abnormal electrocardiogram [ECG] [EKG] (principal); I36.1 Nonrheumatic tricuspid (valve) insufficiency; I48.91 Unspecified atrial fibrillation; I47.10 Supraventricular tachycardia, unspecified | CPT/HCPCS: 93010; 93306; 93356 ==

== ENCOUNTER 2024-03-31 23:36 | Outpatient (BNV) | payer OTHER, SELFPAY | END 2024-04-02 04:20 | PROVIDERS: Admitting Provider Student in an Organized Health Care Education/Training Program; Emergency Provider Emergency Medicine Emergency Medical Services; PCP Internal Medicine; Visit Provider Radiology Diagnostic Radiology | DX: R10.2 Pelvic and perineal pain (principal); N50.819 Testicular pain, unspecified; N32.89 Other specified disorders of bladder | CPT/HCPCS: 74177 ==

== ENCOUNTER → 2024-03-31 23:36 | Outpatient (BNV) | payer OTHER, SELFPAY | PROVIDERS: Admitting Provider Student in an Organized Health Care Education/Training Program; Emergency Provider Emergency Medicine Emergency Medical Services; PCP Internal Medicine; Visit Provider Internal Medicine | DX: I48.91 Unspecified atrial fibrillation (principal); I21.4 Non-ST elevation (NSTEMI) myocardial infarction; R31.9 Hematuria, unspecified; U07.1 COVID-19 | CPT/HCPCS: 99223; 99233 ==

== ENCOUNTER → 2024-03-31 23:36 | Outpatient (BNV) | payer OTHER, SELFPAY | PROVIDERS: Admitting Provider Student in an Organized Health Care Education/Training Program; Emergency Provider Emergency Medicine Emergency Medical Services; PCP Internal Medicine; Visit Provider Internal Medicine | DX: U07.1 COVID-19 (principal); N32.89 Other specified disorders of bladder; L03.114 Cellulitis of left upper limb | CPT/HCPCS: 99222 ==

== ENCOUNTER → 2024-03-31 23:36 | Outpatient (BNV) | payer OTHER, SELFPAY | PROVIDERS: Admitting Provider Student in an Organized Health Care Education/Training Program; Emergency Provider Emergency Medicine Emergency Medical Services; PCP Internal Medicine; Visit Provider Urology | DX: N30.40 Irradiation cystitis without hematuria (principal) | CPT/HCPCS: 99231; 99232 ==

== ENCOUNTER → 2024-04-28 08:44 | Outpatient (BNVA) | payer OTHER, SELFPAY | PROVIDERS: PCP Internal Medicine; Visit Provider Internal Medicine Cardiovascular Disease | DX: N30.40 Irradiation cystitis without hematuria (principal); C61 Malignant neoplasm of prostate | CPT/HCPCS: 52000; 81003; 99212 ==

== ENCOUNTER 2024-04-28 10:41 | Outpatient (AMB) | payer OTHER, SELFPAY ==
--- OUTSIDE RECORDS SUMMARY | 2024-04-28 10:48 | XMS_ITS | Continuity of Care Document ---
Author Name [facility] Organization [facility] Care Team Providers Care Fabrication Specialist Name Role Phone [facility] Unavailable Unavailable Problems Combined list of problems from Department of Defense and Veterans Affairs facilities. It does not include entries that were removed or entered in error. Problem Status Onset Date Problem Type Date of Resolution Comments Source AF - Atrial fibrillation Active Condition Jul 04, 2023 Entered By: NEHEMIAH LORD Comment: Dx 06/2023 Afib w/RVR [place] Estes's esophagus Active Condition Mar 04, 2015 Entered By: VENKATA GONZALEZ Comment: Dx via EGD 2000: other EGD's Since; No Esoph or Gastric CAOct 2014 Entered By: VENKATA GONZALEZ Comment: Next EGD due 2015 (along w/ f/u Colonoscopy)Mar 04, 2015 Entered By: VENKATA GONZALEZ Comment: also, UGI Bld early : NSAID-InducedJun 2022 Entered By: NEHEMIAH LORD Comment: 01/2021 Estes's, IM, no dysplasia - repeat in 5 y [place] Care by local physician Active Condition Mar 04, 2015 Entered By: VENKATA GONZALEZ Comment: Dr Lewis at [facility]; Dr. Maher @ [facility] Degeneration of intervertebral disc Active Condition Mar 04, 2015 Entered By: VENKATA GONZALEZ Comment: TKR, L Knee early ; Candidate for TK, R Side in FutureMar 04, 2015 Entered By: VENKATA GONZALEZ Comment: MMT of R Knee as wellJan 2018 Entered By: OMER REYES Comment: cervical spondylosis, DDD imaging 03/29 C3-C7Jan 2018 Entered By: OMER REYES Comment: diffuse DDD throughout L/S 03/29 [place] History of tobacco use Active Condition Mar 04, 2015 Entered By: VENKATA GONZALEZ Comment: Quit 2007;Mar 04, 2015 Entered By: VENKATA GONZALEZ Comment: H/O Pneumothorax, L Lung ; Had Thoracostomy, etc.Mar 04, 2015 Entered By: VENKATA GONZALEZ Comment: Nodule, LLL, in FEB 24?? pending PET; METS vs. ScarSep 2017 Entered By: OMER REYES Comment: neg AAA screening 2017 [place] Hyperlipidemia Active Condition [facility] IELD LBP - Low back pain Active Condition Mar 04, 2015 Entered By: VENKATA GONZALEZ Comment: LBP; Never Surg; Focal; no Dist Radiation [place] Localized, secondary osteoarthritis of the ankle and/or foot Active Condition Mar 04, 2015 Entered By: VENKATA GONZALEZ Comment: Post-Traumatic Arthriti sL Ankle; Surg Fused about 2014 Entered By: VENKATA GONZALEZ Comment: (Pseudoarthosis) DARSHAN: Fall from Ladder; Open Fx;Mar 04, 2015 Entered By: VENKATA GONZALEZ Comment: L Ankle Pain has Persisted; Gets Inj's via Ortho as of 2014 Entered By: VENKATA GONZALEZ Comment: On Oxy Not SA due to Prolonged post Pseudoarthosis Pain [place] Long-term current use of anticoagulant Active Condition [facility] ([facility]) Lumbosacral spondylosis with radiculopathy Active Condition [facility] Prostate cancer Active Condition Mar 04, 2015 Entered By: VENKATA GONZALEZ Comment: Dx via Bx JUL 25 ([place]); 9 Sections Malig; 3 BenignMar 04, 2015 Entered By: VENKATA GONZALEZ Comment: Finished RT early FEB 24; [place] Entered By: OMER REYES Comment: see note 07/25/16- all notes sent to scan [place] Restless legs Active Condition Feb Entered By: VENKATA GONZALEZ Comment: on Ropinirole in FEB 24 [place] Screening for malignant neoplasm colon Active Condition Mar 04, 2015 Entered By: VENKATA GONZALEZ Comment: Screening Colonoscopy w/i last 10 Yrs; Neg CRCMar 04, 2015 Entered By: VENKATA GONZALEZ Comment: pending f/u Colonoscopy in 2016 (along w/ EGD)Jul 25, 2016 Entered By: OMER REYES Comment: sigmoid diverticulosis on CT 2018 Entered By: KARTHIK DOMINIQUE Comment: Dr. Teja Barraza Due Colon/EGD Apr 2021 - Q 5 Years [place] Shared care - hospice and GP Active Condition Mar 08, 2015 Entered By: OMER ERYES Comment: PCP: Dr. Maher [facility] [place] [facility] Shoulder joint pain Active Condition Mar 04, 2015 Entered By: VENKATA GONZALEZ Comment: Candidate for Replacement, R Side; Deferred; just do Inj'sOct 2014 Entered By: VENKATA GONZALEZ Comment: OA, L Shldr also (less pain than R side) [place] Solitary nodule of lung Active Condition Dec 17, 2016 Entered By: OMER REYES Comment: Ct scan 09/26Jun 2022 Entered By: NEHEMIAH LORD [facility] Entered By: NEHEMIAH LORD Comment: last CT chest 10/2021 stable subcentimeter nodules [facility] [place] [facility] Unintentional weight loss Active Condition Nov 09, 2022 Entered By: NEHEMIAH LORD Comment: after [facility] Diagnosis: ICD-10-CM I21.4 Non-ST elevation (NSTEMI) myocardial infarction Active Diagnosis [place] Diagnosis: ICD-10-CM L60.0 Ingrowing nail Active Diagnosis [facility] Diagnosis: ICD-10-CM M13.872 Other specified arthritis, left ankle and foot Active Diagnosis [facility] [place] [facility] Diagnosis: ICD-10-CM R06.09 Other forms of dyspnea Active Diagnosis [facility] Diagnosis: ICD-10-CM R06.00 Dyspnea, unspecified Active Diagnosis [facility] [place] [facility] Diagnosis: ICD-10-CM Z46.0 Encounter for fit/adjst of spectacles and contact lenses Active Diagnosis [facility] Diagnosis: ICD-10-CM H40.1111 Primary open-angle glaucoma, right eye, mild stage Active Diagnosis [facility] [place] [facility] Diagnosis: ICD-10-CM I48.91 Unspecified atrial fibrillation Active Diagnosis [place] Diagnosis: ICD-10-CM M46.1 Sacroiliitis, not elsewhere classified [facility] Diagnosis: ICD-10-CM M54.17 Radiculopathy, lumbosacral region Active [facility] [place] Diagnosis: ICD-10-CM R63.4 Abnormal weight loss Active Diagnosis [place] Diagnosis: ICD-10-CM Z79.01 snf (current) use of anticoagulants Active Diagnosis [facility] (6[facility]GE) Diagnosis: ICD-10-CM I48.20 Chronic atrial fibrillation, unspecified Active Diagnosis [facility] (6[facility]) Diagnosis: ICD-10-CM M20.41 Other hammer toe(s) (acquired), right foot Active Diagnosis [place] Diagnosis: ICD-10-CM M54.16 Radiculopathy, lumbar region [facility] [place] [facility] Diagnosis: ICD-10-CM Z71.3 Dietary counseling and surveillance Active Diagnosis [place] Diagnosis: ICD-10-CM M47.27 Other spondylosis with radiculopathy, lumbosacral region Active Diagnosis [place] Medications Combined list of outpatient medications from Department of Defense and [facility] Affairs facilities.Medications provided include 1) outpatient medications from the last 15 months, and 2) patient-reported medications. Medication Details Route Status Patient Instructions Prescription Expires Prescription Number Last Dispense Date Ordering Provider Order Date Order Qty Source ACETAMINOPH EN 500MG TAB TAKE TWO TABLETS BY MOUTH THREE TIMES DAILY NEEDED ORAL ACTIVE JOSHUA KOO 2018 [facility] IELD AMIODARONE HCL 200MG TAB TAKE ONE TABLET BY MOUTH ONCE DAILY ORAL ACTIVE NEHEMIAH CISSE 2023 [facility] IELD APIXABAN 5MG TAB TAKE ONE TABLET BY MOUTH EVERY 12 HOURS ORAL DISCONT INUED BY PROVIDE R 06/20/2024 [id number] [place] RADER 2023 180 [facility] [place] [facility] ASPIRIN 81MG TAB,EC TAKE ONE TABLET BY MOUTH ONCE DAILY ORAL ACTIVE NEHEMIAH CISSE 2023 [place] ATORVASTATI N CA 80MG TAB TAKE ONE TABLET BY MOUTH ONCE DAILY FOR HIGH CHOLESTE ROL ORAL ACTIVE 04/21/2025 [id number] 4 NEHEMIAH CISSE 2023 90 [place] DRONEDARONE 400MG TAB TAKE ONE TABLET BY MOUTH TWICE DAILY ORAL DISCONT INUED BY PROVIDE R 09/17/2024 [id number] [place] RADER 2023 180 [facility] [place] DRONEDARONE 400MG TAB TAKE ONE TABLET BY MOUTH TWICE DAILY FOR PAROXYSM AL ATRIAL FIBRILLA TION ORAL 09/16/2023 [id number] [place] RADER 2023 180 [place]ON ENSURE PLUS LIQUID VANILLA DRINK 1 CAN BY MOUTH TWICE DAILY ORAL ACTIVE 04/29/2024 [id number] NEHEMIAH CISSE 2022 48 [place] ENSURE PLUS LIQUID VANILLA DRINK 1 CAN BY MOUTH TWICE DAILY ORAL DISCONT INUED 03/28/2023 [id number] NEHEMIAH CISSE 2021 48 [place] FERROUS SO4 325MG TAB TAKE ONE TABLET BY MOUTH ONCE DAILY TO SUPPLEME NT IRON TO SUPPLEME NT IRON ORAL ACTIVE 04/27/2025 [id number] NEHEMIAH CISSE 2023 100 [place] LATANOPROST 0.005% SOLN,OPH INSTILL 1 DROP INTO EACH EYE AT BEDTIME FOR WIDE-ANG LE GLAUCOMA OPHTHA LMIC ACTIVE 08/12/2024 [id number] ,LAC EY J 2023 7.5 [facility] LATANOPROST 0.005% SOLN,OPH INSTILL 1 DROP INTO EACH EYE AT BEDTIME FOR WIDE-ANG LE GLAUCOMA OPHTHA LMIC DISCONT INUED 09/05/2023 [id number] ,LAC EY J 2022 10 [facility] LIDOCAINE 5% PATCH APPLY 1 PATCH TOPICALL Y ONCE DAILY FOR NERVE PAIN (LEAVE PATCH ON FOR 12 HOURS, THEN REMOVE PATCH) TOPICA L ACTIVE 04/21/2025 [id number] NEHEMIAH CISSE 2023 30 [place] LIDOCAINE 5% PATCH APPLY 1 PATCH TOPICALL Y ONCE DAILY FOR NERVE PAIN (LEAVE PATCH ON FOR 12 HOURS, THEN REMOVE PATCH) TOPICA L DISCONT INUED 10/11/2024 [id number] 4 NEHEMIAH CISSE 2023 30 [place] LIDOCAINE 5% PATCH APPLY 1 PATCH TOPICALL Y ONCE DAILY FOR NERVE PAIN (LEAVE PATCH ON FOR 12 HOURS, THEN REMOVE PATCH) TOPICA L DISCONT INUED 09/04/2023 [id number] NEHEMIAH CISSE 2022 30 [place] LOVASTATIN 20MG TAB TAKE ONE TABLET BY MOUTH AT BEDTIME FOR CHOLESTE ROL -- AVOID GRAPEFRU IT JUICE ORAL DISCONT INUED BY PROVIDE R 10/11/2024 [id number] NEHEMIAH CISSE 2023 90 [place] LOVASTATIN 20MG TAB TAKE ONE TABLET BY MOUTH AT BEDTIME FOR CHOLESTE ROL -- AVOID GRAPEFRU IT JUICE ORAL DISCONT INUED 10/10/2023 [id number] NEHEMIAH CISSE 2022 90 [place] METOPROLOL TARTRATE 25MG TAB TAKE ONE-HALF TABLET BY MOUTH TWICE DAILY FOR BLOOD PRESSURE /HEART ORAL DISCONT INUED BY PROVIDE R 10/08/2024 [id number] NEHEMIAH CISSE 2023 90 [place] METOPROLOL TARTRATE 25MG TAB TAKE ONE TABLET BY MOUTH TWICE DAILY FOR BLOOD PRESSURE /HEART ORAL 09/16/2023 [id number] [place] RADER 2023 180 [place] METOPROLOL TARTRATE 25MG TAB TAKE ONE TABLET BY MOUTH TWICE DAILY ORAL ACTIVE NEHEMIAH CISSE M 2023 [place] NALOXONE HCL 4MG/SPRAY SOLN,SPRAY, NASAL INSTILL 1 SPRAY ONE NOSTRIL ONE TIME NEEDED FOR OPIOID OVERDOSE CALL 911 WITH ADMINIST RATION. REPEAT WITH SECOND DEVICE IF SYMPTOMS RETURN NASAL 04/20/2024 [id number] Alphonso CARDONA AVID A 2023 2 [place] OMEPRAZOLE 20MG CAP,EC TAKE TWO CAPSULES BY MOUTH EVERY MORNING 30 MINUTES BEFORE BREAKFAS T ORAL ACTIVE 10/11/2024 [id number] 4 NEHEMIAH CISSE M 2023 180 [place] OMEPRAZOLE 20MG CAP,EC TAKE TWO CAPSULES BY MOUTH EVERY MORNING 30 MINUTES BEFORE BREAKFAS T ORAL DISCONT INUED 09/22/2023 [id number] Alphonso CARDONA AVID A 2022 180 [place] ONDANSETRON HCL 4MG TAB TAKE ONE TABLET BY MOUTH ONCE DAILY NEEDED FOR VOMITING /NAUSEA ORAL 03/29/2024 [id number] NEHEMIAH CISSE M 2022 90 [place] OXYCODONE HCL 5MG/ACETAMI NOPHEN 325MG TAB TAKE 1 TABLET BY MOUTH THREE TIMES DAILY NEEDED FOR PAIN [NEXT FILL DATE 05/15/24] ORAL ACTIVE 05/13/2024 [id number] NEHEMIAH CISSE M 2023 84 [place] OXYCODONE HCL 5MG/ACETAMI NOPHEN 325MG TAB TAKE 1 TABLET BY MOUTH THREE TIMES DAILY NEEDED FOR PAIN [NEXT FILL DATE 04/17/24] ORAL DISCONT INUED 04/19/2024 [id number] NEHEMIAH CISSE M 2023 84 [place] OXYCODONE HCL 5MG/ACETAMI NOPHEN 325MG TAB TAKE 1 TABLET BY MOUTH THREE TIMES DAILY NEEDED FOR PAIN NEXT FILL 02/19/24* * ORAL DISCONT INUED 02/20/2024 [id number] Alphonso CARDONA A 2023 84 [place] OXYCODONE HCL 5MG/ACETAMI NOPHEN 325MG TAB TAKE 1 TABLET BY MOUTH THREE TIMES DAILY NEEDED FOR PAIN NEXT FILL 01/22/24* * ORAL DISCONT INUED 01/21/2024 [id number] Alphonso CARDONA A 2023 84 [place] OXYCODONE HCL 5MG/ACETAMI NOPHEN 325MG TAB TAKE 1 TABLET BY MOUTH THREE TIMES DAILY NEEDED FOR PAIN NEXT FILL 09/27/23* * ORAL DISCONT INUED 09/26/2023 [id number] NEHEMIAH CISSE 2023 84 [place] OXYCODONE HCL 5MG/ACETAMI NOPHEN 325MG TAB TAKE 1 TABLET BY MOUTH THREE TIMES DAILY NEEDED FOR PAIN NEXT FILL 08/30/23* * ORAL DISCONT INUED 08/28/2023 [id number] NEHEMIAH CISSE 2023 84 [place] OXYCODONE HCL 5MG/ACETAMI NOPHEN 325MG TAB TAKE 1 TABLET BY MOUTH THREE TIMES DAILY NEEDED FOR PAIN (NEXT FILL 06/07/23) ORAL DISCONT INUED 06/26/2023 [id number] NEHEMIAH CISSE 2023 30 [place] OXYCODONE HCL 5MG/ACETAMI NOPHEN 325MG TAB TAKE 1 TABLET BY MOUTH THREE TIMES DAILY NEEDED FOR PAIN (NEXT FILL 06/07/23) ORAL DISCONT INUED 06/06/2023 [id number] TYRONE GONZALEZ 2022 54 [place] OXYCODONE HCL 5MG/ACETAMI NOPHEN 325MG TAB TAKE 1 TABLET BY MOUTH THREE TIMES DAILY NEEDED FOR PAIN (NEXT FILL 05/10/23 ) ORAL DISCONT INUED 05/10/2023 [id number] NEHEMIAH CISSE M 2022 54 [place] OXYCODONE HCL 5MG/ACETAMI NOPHEN 325MG TAB TAKE 1 TABLET BY MOUTH THREE TIMES A DAY FOR PAIN ORAL DISCONT INUED 05/02/2023 [id number] NEHEMIAH CISSE M 2022 54 [place] OXYCODONE HCL 5MG/ACETAMI NOPHEN 325MG TAB TAKE 1 TABLET BY MOUTH THREE TIMES A DAY FOR PAIN ORAL DISCONT INUED 04/07/2023 [id number] NEHEMIAH CISSE M 2022 84 [place] OXYCODONE HCL 5MG/ACETAMI NOPHEN 325MG TAB TAKE 1 TABLET BY MOUTH THREE TIMES DAILY NEEDED FOR PAIN NEXT FILL 03/18/24* * ORAL 03/19/2024 [id number] Alphonso CARDONA 2023 84 [place] OXYCODONE HCL 5MG/ACETAMI NOPHEN 325MG TAB TAKE 1 TABLET BY MOUTH THREE TIMES DAILY NEEDED NEXT FILL 12/23/23* * ORAL 12/22/2023 [id number] NEHEMIAH CISSE M 2023 84 [facility] OXYCODONE HCL 5MG/ACETAMI NOPHEN 325MG TAB TAKE 1 TABLET BY MOUTH THREE TIMES DAILY NEEDED NEXT FILL 11/25/23* * ORAL 11/22/2023 [id number] NEHEMIAH CISSE M 2023 84 [place] OXYCODONE HCL 5MG/ACETAMI NOPHEN 325MG TAB TAKE 1 TABLET BY MOUTH THREE TIMES DAILY NEEDED FOR PAIN NEXT FILL 10/25/23* * ORAL 10/25/2023 [id number] NEHEMIAH CISSE 2023 84 [place] OXYCODONE HCL 5MG/ACETAMI NOPHEN 325MG TAB TAKE 1 TABLET BY MOUTH THREE TIMES DAILY NEEDED FOR PAIN NEXT FILL 08/02/23* * ORAL 07/30/2023 [id number] NEHEMIAH CISSE M 2023 84 [place] OXYCODONE HCL 5MG/ACETAMI NOPHEN 325MG TAB TAKE 1 TABLET BY MOUTH THREE TIMES DAILY NEEDED FOR PAIN (NEXT FILL 07/05/23 ) ORAL 06/28/2023 [id number] NEHEMIAH CISSE M 2023 84 [facility] OXYCODONE HCL 5MG/ACETAMI NOPHEN 325MG TAB TAKE 1 TABLET BY MOUTH THREE TIMES A DAY FOR PAIN ORAL 03/08/2023 [id number] NEHEMIAH CISSE M 2022 84 [place] RIVAROXABAN 20MG TAB TAKE ONE TABLET BY MOUTH ONCE DAILY - TAKE WITH FOOD ORAL DISCONT INUED 09/16/2023 [id number] [place] RADER M 2023 90 [place] ROPINIROLE HCL 0.25MG TAB TAKE ONE TABLET BY MOUTH DAILY ORAL SUSPEND ED 12/08/2024 [id number] 5 NEHEMIAH CISSE M 2023 90 [facility] IELD ROPINIROLE HCL 0.25MG TAB TAKE ONE TABLET BY MOUTH DAILY ORAL DISCONT INUED 11/09/2023 [id number] 4 NEHEMIAH CISSE M 2022 90 [place] ZINC OXIDE 16% PASTE,TOP APPLY SUFFICIE NT AMOUNT TOPICALL Y ONCE DAILY FOR SKIN IRRITATI ON TOPICA L ACTIVE 04/21/2025 [id number] 4 NEHEMIAH CISSE M 2023 60 [place] Allergies, Adverse Reactions, Alerts Combined list of allergies from Department of Defense and Veterans Affairs facilities. It does not include entries that were removed or entered in error. Substance Category Reaction Severity Reaction type Status Date Reported Comments Source CODEINE Propensity to adverse reactions to drug (finding) Low blood pressure active 5 [facility] NEURONTIN Propensity to adverse reactions to drug (finding) Depressive disorder active 8 [facility] Immunizations Combined list of available immunizations from the Department of Defense and Veterans Affairs facilities. Immunization Series Date Given Administered By Site Reaction Lot Number CVX Code Drug Services Tech Status Comments Source INFLUENZA, UNSPECIFIED FORMULATION 2023 88 complet ed [facility] INFLUENZA, UNSPECIFIED FORMULATION 2022 88 complet ed [facility] INFLUENZA VACCINE, QUADRIVALENT, ADJUVANTED 2021 205 complet ed [facility] ZOSTER RECOMBINANT 2 2021 187 complet ed [facility] INFLUENZA VACCINE, QUADRIVALENT, ADJUVANTED 2020 205 complet ed [place] ZOSTER RECOMBINANT 1 2020 187 complet ed [place] COVID-19 (PFIZER), MRNA, LNP-S, PF, 30 MCG/0.3 ML DOSE 2 2020 208 complet ed [facility] COVID-19 (PFIZER), MRNA, LNP-S, PF, 30 MCG/0.3 ML DOSE 1 2020 208 complet ed [facility] COVID-19 (PFIZER), MRNA, LNP-S, PF, 30 MCG/0.3 ML DOSE 2 2019 208 complet ed [facility] INFLUENZA, SEASONAL, INJECTABLE 2018 141 complet ed [facility] [place] Fluzone high dose , [employer] Lot [id number], , Left Deltoid [facility] PNEUMOCOCCAL CONJUGATE PCV 13 2018 133 complet ed Pfizer lot [id number] exp Right Deltoid [facility] INFLUENZA, SEASONAL, INJECTABLE 2017 [address] [facility] [address] [place] [facility] INFLUENZA, SEASONAL, INJECTABLE 2017 [address] [facility] [address] [facility] INFLUENZA, SEASONAL, INJECTABLE 2016 141 complet ed [facility] INFLUENZA, SEASONAL, INJECTABLE 2016 141 complet ed Site: Left Deltoid [facility] PNEUMOCOCCAL POLYSACCHARID E PPV23 2016 33 complet ed [place] FLU,3 YRS (HISTORICAL) 2015 88 complet ed [facility] [place] [facility] PNEUMOCOCCAL CONJUGATE PCV 13 2014 133 complet ed [place] ZOSTER (HISTORICAL) 2014 121 complet ed [place] DTAP, UNSPECIFIED FORMULATION 2014 107 complet ed [place] [facility] FLU,3 YRS (HISTORICAL) 2014 88 complet ed outside pcp [facility] FLU,3 YRS (HISTORICAL) 2014 88 complet ed [facility] Results Combined list of recent chemistry, hematology and other laboratory results from Department of Defense and Veterans Affairs, ranging from 15 months to all on record, depending upon the facility. Order Name Results Value Reference Range Date Interpretation Specimen Comments Source BASIC METABOLIC PANEL (fasting) UREA NITROGEN [MASS/VOLUM E] IN SERUM OR PLASMA 13 mg/dL 7 - 25 04/20 Specimen Type: SERUM No comment entered. Ordering Provider: JOSE REIS Report Released Date/Time: Apr 15, 2024 02:47 PM Reporting Lab: [address] [address] Performing Lab: [address] [address] [facility] BASIC METABOLIC PANEL (fasting) GLUCOSE [MASS/VOLUM E] IN SERUM OR PLASMA 105 mg/dL 65 - 100 04/20 H Specimen Type: SERUM No comment entered. Ordering Provider: JOSE REIS Report Released Date/Time: Apr 15, 2024 02:47 PM Reporting [facility]: [facility] [address] [address] Performing Lab: [facility] [address] [address] [place] BASIC METABOLIC PANEL (fasting) SODIUM [MOLES/VOLU ME] IN SERUM OR PLASMA 136 mmol/L 135 - 145 04/20 Specimen Type: SERUM No comment entered. Ordering Provider: JOSE REIS Report Released Date/Time: Apr 15, 2024 02:47 PM Reporting Lab: [facility] [address] Performing Lab: [facility] [address] [place] BASIC METABOLIC PANEL (fasting) POTASSIUM [MOLES/VOLU ME] IN SERUM OR PLASMA 4.9 mmol/L 3.5 - 5.0 04/20 Specimen Type: SERUM No comment entered. Ordering Provider: JOSE REIS Report Released Date/Time: Apr 15, 2024 02:47 PM Reporting Lab: [facility] [address] [address] Performing Lab: [facility] [address] [address] [place] BASIC METABOLIC PANEL (fasting) CHLORIDE [MOLES/VOLU ME] IN SERUM OR PLASMA 101 mmol/L 100 - 110 04/20 Specimen Type: SERUM No comment entered. Ordering Provider: JOSE REIS Report Released Date/Time: Apr 15, 2024 02:47 PM Reporting Lab: [facility] [address] [address] Performing Lab: [facility] [address] [address] [place] BASIC METABOLIC PANEL (fasting) CARBON DIOXIDE, TOTAL [MOLES/VOLU ME] IN SERUM OR PLASMA 25 meq/L 20 - 30 04/20 Specimen Type: SERUM No comment entered. Ordering Provider: JOSE REIS Report Released Date/Time: Apr 15, 2024 02:47 PM Reporting Lab: [facility]TR[facility] [address] [address] Performing Lab: [facility] [address] [address] [place] BASIC METABOLIC PANEL (fasting) CREATININE [MASS/VOLUM E] IN SERUM OR PLASMA 1.04 mg/dL 0.50 - 1.40 04/20 Specimen Type: SERUM No comment entered. Ordering Provider: JOSE REIS Report Released Date/Time: Apr 15, 2024 02:47 PM Reporting Lab: [facility] [address] [address] Performing Lab: [facility] [address] [address] [place] BASIC METABOLIC PANEL (fasting) GLOMERULAR FILTRATION RATE/1.73 SQ M.PREDICTED [VOLUME RATE/AREA] IN SERUM, PLASMA OR BLOOD BY CREATININE- BASED FORMULA (CKD-EPI 2020) 75 mL/min 60 04/20 Specimen Type: SERUM No comment entered. Ordering Provider: JOSE REIS Report Released Date/Time: Apr 15, 2024 02:47 PM Reporting Lab: [facility]PITALTR[facility] [address] [address] Performing Lab: [facility] [address] [place] CBC AND DIFF (AUTO) LEUKOCYTES [#/VOLUME] IN BLOOD BY AUTOMATED COUNT 9.20 10*3/u L 4.50 - 11.00 04/20 Specimen Type: BLOOD No comment entered. Ordering Provider: JOSE REIS Report Released Date/Time: Apr 15, 2024 02:47 PM Reporting Lab: [facility]ITALTR[facility] [address] [address] Performing Lab: [facility] [place] [facility] [address] [facility] [address] [place] CBC AND DIFF (AUTO) ERYTHROCYTE S [#/VOLUME] IN BLOOD BY AUTOMATED COUNT 3.75 10*6/u L 4.23 - 5.66 04/20 L Specimen Type: BLOOD No comment entered. Ordering Provider: JOSE REIS Report Released Date/Time: Apr 15, 2024 02:47 PM Reporting Lab: [facility] [place] [facility] [address] [facility] [address] Performing Lab: [facility]ITALR[facility]ERN [facility]ITALUSE[address] [address] [place] CBC AND DIFF (AUTO) HEMOGLOBIN [MASS/VOLUM E] IN BLOOD 10.7 g/dL 12.8 - 17 04/20 L Specimen Type: BLOOD No comment entered. Ordering Provider: JOSE REIS Report Released Date/Time: Apr 15, 2024 02:47 PM Reporting Lab: [facility]ITALRFLORALA MEMORIAL HOSPITALTRN [facility] HOSPITALUSETS [address] [address] Performing Lab: [facility]ITALRAT[facility]ERN [facility]PITALUSE[address] [address] [place] CBC AND DIFF (AUTO) HEMATOCRIT [VOLUME FRACTION] OF BLOOD BY AUTOMATED COUNT 32.5 39.2 - 50.4 04/20 L Specimen Type: BLOOD No comment entered. Ordering Provider: JOSE REIS Report Released Date/Time: Apr 15, 2024 02:47 PM Reporting Lab: [facility]PITALRFLORALA MEMORIAL HOSPITALTRN [facility]ITALUSE[address] [address] Performing Lab: [facility]ITALRAT[facility]ERN [facility]ITALUSE[address] [address] [place] CBC AND DIFF (AUTO) MCV [ENTITIC VOLUME] BY AUTOMATED COUNT 86.7 fL 82 - 99 04/20 Specimen Type: BLOOD No comment entered. Ordering Provider: JOSE REIS Report Released Date/Time: Apr 15, 2024 02:47 PM Reporting Lab: [facility] [place] [facility] [address] [facility] [address] Performing Lab: [facility] [address] [address] [place] CBC AND DIFF (AUTO) MCHC [MASS/VOLUM E] BY AUTOMATED COUNT 32.9 g/dL 30.8 - 35.1 04/20 Specimen Type: BLOOD No comment entered. Ordering Provider: JOSE REIS Report Released Date/Time: Apr 15, 2024 02:47 PM Reporting Lab: [facility] [address] [address] Performing Lab: [facility] [address] [address] [place] CBC AND DIFF (AUTO) PLATELETS [#/VOLUME] IN BLOOD BY AUTOMATED COUNT 622 10*3/u L 140 - 360 04/20 H Specimen Type: BLOOD No comment entered. Ordering Provider: JOSE REIS Report Released Date/Time: Apr 15, 2024 02:47 PM Reporting Lab: [facility] [address] [address] Performing Lab: [facility]ERN [facility]USE[address] [address] [place] CBC AND DIFF (AUTO) ERYTHROCYTE DISTRIBUTIO N WIDTH [RATIO] BY AUTOMATED COUNT 12.3 12.0 - 16.0 04/20 Specimen Type: BLOOD No comment entered. Ordering Provider: JOSE REIS Report Released Date/Time: Apr 15, 2024 02:47 PM Reporting Lab: [facility] [address] [address] Performing Lab: [facility]ITALR[facility]ERN [facility]ITALUSE[address] [address] [place] CBC AND DIFF (AUTO) MONOCYTES [#/VOLUME] IN BLOOD BY AUTOMATED COUNT 0.71 10*3/u L 0.30 - 1.10 04/20 Specimen Type: BLOOD No comment entered. Ordering Provider: JOSE REIS Report Released Date/Time: Apr 15, 2024 02:47 PM Reporting Lab: [facility] [place] [address] [address] Performing Lab: [facility] [place] [address] [address] [place] CBC AND DIFF (AUTO) MCH [ENTITIC MASS] BY AUTOMATED COUNT 28.5 pg 26.2 - 32.6 04/20 Specimen Type: BLOOD No comment entered. Ordering Provider: JOSE REIS Report Released Date/Time: Apr 15, 2024 02:47 PM Reporting Lab: [facility] [place] [place] [address] [address] Performing Lab: [facility] [place] [address] [address] [place] CBC AND DIFF (AUTO) NEUTROPHILS /100 LEUKOCYTES IN BLOOD BY AUTOMATED COUNT 72.7 43.7 - 75.8 04/20 Specimen Type: BLOOD No comment entered. Ordering Provider: JOSE REIS Report Released Date/Time: Apr 15, 2024 02:47 PM Reporting Lab: [facility] [place] [address] [address] Performing Lab: [facility] [place] [address] [address] [place] CBC AND DIFF (AUTO) LYMPHOCYTES /100 LEUKOCYTES IN BLOOD BY AUTOMATED COUNT 9.6 14.0 - 42.3 04/20 L Specimen Type: BLOOD No comment entered. Ordering Provider: JOSE REIS Report Released Date/Time: Apr 15, 2024 02:47 PM Reporting Lab: [facility] [place] [address] [address] Performing Lab: [facility] [place] [place] [address] [address] [place] CBC AND DIFF (AUTO) MONOCYTES/1 00 LEUKOCYTES IN BLOOD BY AUTOMATED COUNT 7.7 5.1 - 13.7 12/09 /2024 Specimen Type: BLOOD No comment entered. Ordering Provider: JOSE REIS Report Released Date/Time: Apr 15, 2024 02:47 PM Reporting Lab: [facility] [place] [facility] [address] [facility] [address] Performing Lab: [facility] [address] [address] [place] CBC AND DIFF (AUTO) EOSINOPHILS /100 LEUKOCYTES IN BLOOD BY AUTOMATED COUNT 9.1 0.4 - 6.8 04/20 H Specimen Type: BLOOD No comment entered. Ordering Provider: JOSE REIS Report Released Date/Time: Apr 15, 2024 02:47 PM Reporting Lab: [facility] [address] [address] Performing Lab: [place] [facility] [address] [address] [place] CBC AND DIFF (AUTO) BASOPHILS/1 00 LEUKOCYTES IN BLOOD BY AUTOMATED COUNT 0.4 0.1 - 2.0 04/20 Specimen Type: BLOOD No comment entered. Ordering Provider: JOSE REIS Report Released Date/Time: Apr 15, 2024 02:47 PM Reporting Lab: [facility] [address] [address] Performing Lab: [facility] [address] [address] [place] CBC AND DIFF (AUTO) NEUTROPHILS [#/VOLUME] IN BLOOD BY AUTOMATED COUNT 6.68 10*3/u L 2.20 - 7.60 04/20 Specimen Type: BLOOD No comment entered. Ordering Provider: JOSE REIS Report Released Date/Time: Apr 15, 2024 02:47 PM Reporting Lab: [facility] [place] [address] [address] Performing Lab: [place] [facility] [facility] [address] [address] [place] CBC AND DIFF (AUTO) LYMPHOCYTES [#/VOLUME] IN BLOOD BY AUTOMATED COUNT 0.88 10*3/u L 1.00 - 3.20 04/20 L Specimen Type: BLOOD No comment entered. Ordering Provider: JOSE REIS Report Released Date/Time: Apr 15, 2024 02:47 PM Reporting Lab: [facility] [address] [address] Performing Lab: [facility] [address] [address] [place] CBC AND DIFF (AUTO) EOSINOPHILS [#/VOLUME] IN BLOOD BY AUTOMATED COUNT 0.84 10*3/u L 0.03 - 0.44 04/20 H Specimen Type: BLOOD No comment entered. Ordering Provider: JOSE REIS Report Released Date/Time: Apr 15, 2024 02:47 PM Reporting Lab: [facility] [address] [address] Performing Lab: [facility] [address] [address] [place] CBC AND DIFF (AUTO) BASOPHILS [#/VOLUME] IN BLOOD BY AUTOMATED COUNT 0.04 10*3/u L 0.01 - 0.13 04/20 Specimen Type: BLOOD No comment entered. Ordering Provider: JOSE REIS Report Released Date/Time: Apr 15, 2024 02:47 PM Reporting Lab: [facility] [address] [address] Performing Lab: [facility] [address] [address] [place] CBC AND DIFF (AUTO) IMMATURE GRANULOCYTE S/100 LEUKOCYTES IN BLOOD BY AUTOMATED COUNT 0.5 0.0 - 0.7 04/20 Specimen Type: BLOOD No comment entered. Ordering Provider: JOSE REIS Report Released Date/Time: Apr 15, 2024 02:47 PM Reporting Lab: [place] [address] [address] Performing Lab: [address] [address] [place] CBC AND DIFF (AUTO) IMMATURE GRANULOCYTE S [#/VOLUME] IN BLOOD 0.05 10*3/u L 0.00 - 0.06 04/20 Specimen Type: BLOOD No comment entered. Ordering Provider: JOSE REIS Report Released Date/Time: Apr 15, 2024 02:47 PM Reporting Lab: [address] [address] Performing Lab: [address] [address] [place] CBC AND DIFF (AUTO) NRBC % 0.0 0.0 - 0.0 04/20 Specimen Type: BLOOD No comment entered. Ordering Provider: JOSE REIS Report Released Date/Time: Apr 15, 2024 02:47 PM Reporting Lab: [address] [address] Performing Lab: [address] [address] [place] CBC AND DIFF (AUTO) NRBC, ABS 0.00 10*3/u L 0.00 - 0.00 04/20 Specimen Type: BLOOD No comment entered. Ordering Provider: JOSE REIS Report Released Date/Time: Apr 15, 2024 02:47 PM Reporting Lab: [address] [address] Performing Lab: [address] [address] [place] HEMOGLOBI N A1C PANEL HEMOGLOBIN A1C/HEMOGLO BIN.TOTAL IN BLOOD BY HPLC 5.1 4.0 - 5.6 04/20 Specimen Type: BLOOD Comment: Values obtained from A1C measurement s can vary. For atypical A1C assays, a reported value of 7.0 could actually be between 6.72 and 7.28 if measured by a reference method. A reported value of 9.0 could actually be between 8.73 and 9.27. Ref: http://www. ngsp.org/[place] Pdata.asp Ordering Provider: JOSE REIS Report Released Date/Time: Apr 15, 2024 02:47 PM Reporting Lab: [facility]PITALRFLORALA MEMORIAL HOSPITALTRN [facility]ITALUSETS [address] [address] Performing Lab: [facility]OSPITALRFLORALA MEMORIAL HOSPITALTRN [facility]ITALUSE[address] [address] [place] LIPID PANEL FASTING CHOLESTEROL [MASS/VOLUM E] IN SERUM OR PLASMA 118 mg/dL 04/20 Specimen Type: SERUM No comment entered. Ordering Provider: JOSE REIS Report Released Date/Time: Apr 15, 2024 02:47 PM Reporting Lab: [facility]USE[address] [address] Performing Lab: [facility]OSPITALRFLORALA MEMORIAL HOSPITALTRN [facility]ITALUSETS [address] [address] [place] LIPID PANEL FASTING TRIGLYCERID E [MASS/VOLUM E] IN SERUM OR PLASMA 58 mg/dL 0 - 150 04/20 Specimen Type: SERUM No comment entered. Ordering Provider: JOSE REIS Report Released Date/Time: Apr 15, 2024 02:47 PM Reporting Lab: [facility]ITALRFLORALA MEMORIAL HOSPITALTRN [place] [address] [address] Performing Lab: [facility]ITALRFLORALA MEMORIAL HOSPITALTRN [place] [address] [address] [place] LIPID PANEL FASTING CHOLESTEROL IN LDL [MASS/VOLUM E] IN SERUM OR PLASMA BY CALCULATION 55 mg/dL 0 - 129 04/20 Specimen Type: SERUM No comment entered. Ordering Provider: JOSE REIS Report Released Date/Time: Apr 15, 2024 02:47 PM Reporting Lab: [facility]TR[facility] [address] Performing Lab: [facility] [place] [address] [place] LIPID PANEL FASTING CHOLESTEROL .TOTAL/CHOL ESTEROL IN HDL [MASS RATIO] IN SERUM OR PLASMA 2.3 04/20 Specimen Type: SERUM No comment entered. Ordering Provider: JOSE REIS Report Released Date/Time: Apr 15, 2024 02:47 PM Reporting Lab: [facility] [address] Performing Lab: [facility] [address] [place] LIPID PANEL FASTING CHOLESTEROL IN HDL [MASS/VOLUM E] IN SERUM OR PLASMA 51 mg/dL 40 - 60 04/20 Specimen Type: SERUM No comment entered. Ordering Provider: JOSE REIS Report Released Date/Time: Apr 15, 2024 02:47 PM Reporting Lab: [facility]USE[address] [address] Performing Lab: [facility] [address] [place] LIVER FUNCTION PROTEIN [MASS/VOLUM E] IN SERUM OR PLASMA 6.6 g/dL 6.0 - 8.3 04/20 Specimen Type: SERUM No comment entered. Ordering Provider: JOSE REIS Report Released Date/Time: Apr 15, 2024 02:47 PM Reporting Lab: [facility]USE[address] [address] Performing Lab: [facility]ITALUSETS [address] [address] [place] LIVER FUNCTION ALBUMIN [MASS/VOLUM E] IN SERUM OR PLASMA 3.8 g/dL 3.5 - 5.0 04/20 Specimen Type: SERUM No comment entered. Ordering Provider: JOSE REIS Report Released Date/Time: Apr 15, 2024 02:47 PM Reporting Lab: [facility]ITALUSE[address] [address] Performing Lab: [facility] [address] [facility] [address] [place] LIVER FUNCTION ALKALINE PHOSPHATASE [ENZYMATIC ACTIVITY/VO LUME] IN SERUM OR PLASMA 111 U/L 40 - 150 04/20 Specimen Type: SERUM No comment entered. Ordering Provider: JOSE REIS Report Released Date/Time: Apr 15, 2024 02:47 PM Reporting Lab: [facility] [address] [facility] [address] Performing Lab: [facility] [facility]ITAL[facility] [address] [place] LIVER FUNCTION ASPARTATE AMINOTRANSF ERASE [ENZYMATIC ACTIVITY/VO LUME] IN SERUM OR PLASMA 18 U/L 5 - 34 04/20 Specimen Type: SERUM No comment entered. Ordering Provider: JOSE REIS Report Released Date/Time: Apr 15, 2024 02:47 PM Reporting Lab: [facility] [place] [address] [address] Performing Lab: [facility] [address] [address] [place] LIVER FUNCTION ALANINE AMINOTRANSF ERASE [ENZYMATIC ACTIVITY/VO LUME] IN SERUM OR PLASMA 34 U/L 04/20 Specimen Type: SERUM No comment entered. Ordering Provider: JOSE REIS Report Released Date/Time: Apr 15, 2024 02:47 PM Reporting Lab: [place] [facility] [place] [address] [address] Performing Lab: [facility]ITAL[facility] TRN [place] [address] [place] LIVER FUNCTION BILIRUBIN.T OTAL [MASS/VOLUM E] IN SERUM OR PLASMA 0.3 mg/dL 0.2 - 1.2 04/20 Specimen Type: SERUM No comment entered. Ordering Provider: JOSE REIS Report Released Date/Time: Apr 15, 2024 02:47 PM Reporting Lab: [facility]ITALUSETS [facility] [address] [facility] [address] Performing Lab: [facility]ITALUSE[facility] [address] [facility] [address] [place] TSH THYROTROPIN [UNITS/VOLU ME] IN SERUM OR PLASMA 2.13 u[IU]/ mL 0.35 - 5.00 04/20 Specimen Type: SERUM No comment entered. Ordering Provider: JOSE REIS Report Released Date/Time: Apr 15, 2024 02:47 PM Reporting Lab: [facility] [address] [address] Performing Lab: [address] [address] [place] FERRITIN FERRITIN [MASS/VOLUM E] IN SERUM OR PLASMA 63 ng/mL 20 - 300 04/20 Specimen Type: SERUM No comment entered. Ordering Provider: JOSE REIS Report Released Date/Time: Apr 20, 2024 09:28 AM Reporting Lab: [facility] [address] [address] Performing Lab: [facility]USE[address] [address] [place] IRON & TIBC PANEL IRON BINDING CAPACITY [MASS/VOLUM E] IN SERUM OR PLASMA 360 ug/dL 204 - 475 04/20 Specimen Type: SERUM No comment entered. Ordering Provider: JOSE REIS Report Released Date/Time: Apr 20, 2024 09:28 AM Reporting Lab: [facility]ITALUSETS [address] [address] Performing Lab: [facility]USE[address] [address] [place] IRON & TIBC PANEL IRON [MASS/VOLUM E] IN SERUM OR PLASMA 25 ug/dL 40 - 160 04/20 L Specimen Type: SERUM No comment entered. Ordering Provider: JOSE REIS Report Released Date/Time: Apr 20, 2024 09:28 AM Reporting Lab: [facility] [address] [facility] [address] Performing Lab: [facility] [address] [facility] [address] [place] IRON & TIBC PANEL IRON/IRON BINDING CAPACITY.TO ARTEMIO [MASS RATIO] IN SERUM OR PLASMA 6.9 20.0 - 50.0 04/20 L Specimen Type: SERUM No comment entered. Ordering Provider: JOSE REIS Report Released Date/Time: Apr 20, 2024 09:28 AM Reporting Lab: [facility] [address] [facility] [address] Performing Lab: [address] [address] [place] IRON & TIBC PANEL TRANSFERRIN [MASS/VOLUM E] IN SERUM OR PLASMA 273 mg/dL 200 - 360 04/20 Specimen Type: SERUM No comment entered. Ordering Provider: JOSE REIS Report Released Date/Time: Apr 20, 2024 09:28 AM Reporting Lab: [address] [address] Performing Lab: [address] [address] [place] VITAMIN B12 COBALAMIN (VITAMIN B12) [MASS/VOLUM E] IN SERUM OR PLASMA 1032 pg/mL 200 - 900 04/20 H Specimen Type: SERUM No comment entered. Ordering Provider: JOSE REIS Report Released Date/Time: Apr 20, 2024 09:28 AM Reporting Lab: [address] [address] Performing Lab: [address] [address] [place] METHADONE SCREEN METHADONE [PRESENCE] IN URINE BY SCREEN METHOD None detect ed(Neg ative) 01/23 L Specimen Type: URINE Comment: THIAGO test are qualitative , any L or H flags only indicate a [facility] alert was sent. Ordering Provider: JOSE REIS Report Released Date/Time: Jan 22, 2024 11:28 AM Reporting Lab: [facility] [place] [facility] [address] [facility] [address] Performing Lab: [facility] [place] [facility] [address] [facility] [address] [facility] Vital Signs Combined list of inpatient and outpatient Vital Signs from Department of Defense and Veterans Affairs, ranging from 12 months to all on record, depending upon the facility. Vital Sign Value Date Comments Source SYSTOLIC BLOOD PRESSURE 149 04/20/20 24 08:53:25 [place] DIASTOLIC BLOOD PRESSURE 56 024 08:53:25 [place] PULSE OXIMETRY 99 04/20/2024 08:53:25 [place] WEIGHT 132.2 04/20/2024 08:53:25 [place] BMI 20kg/m2 04/20/2024 08:53:25 [place] TEMPERATURE 97.3 04/20/2024 08:53:25 [place] PULSE 48 04/20/2024 08:53:25 [place] SYSTOLIC BLOOD PRESSURE 120 01/30/20 24 07:31:46 [facility] [place] [place] [facility] DIASTOLIC BLOOD PRESSURE 70 024 07:31:46 [facility] [place] [facility] PAIN 7 01/30/2024 07:31:46 [place] [facility] [place] [facility] SYSTOLIC BLOOD PRESSURE 135 10/08/19 24 11:04:13 [place] DIASTOLIC BLOOD PRESSURE 69 024 11:04:13 [place] PULSE OXIMETRY 99 10/08/2023 11:04:13 [place] TEMPERATURE 97.8 10/08/2023 11:04:13 [place] PULSE 56 10/08/2023 11:04:13 [place] PULSE OXIMETRY 98 10/02/2023 08:01:39 [facility] [place] [facility] WEIGHT 141 10/02/2023 08:01:39 [facility] [place] [facility] BMI 21kg/m2 10/02/2023 08:01:39 [facility] [place] [facility] PAIN 6 10/02/2023 08:01:39 [facility] [place] [facility] PULSE 44 10/02/2023 08:01:39 [facility] [place] [facility] RESPIRATION 18 10/02/2023 08:01:39 [facility] [place] [facility] SYSTOLIC BLOOD PRESSURE 130 08/12/19 24 07:32:37 [facility] [place] [facility] DIASTOLIC BLOOD PRESSURE 70 024 07:32:37 [facility] [place] [facility] PAIN 4 08/12/2023 07:32:37 [facility] [place] [facility] Encounters Combined list of: 1) Encounters from Department of Veterans Affairs facilities going back up to thelast 18 months. 2) Encounters from the Department of Defense facilities going back up to 280 months. 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
WES CESAR F 12/05 [place] [facility] Out[facility] Encounter [id number] 12/07 [facility] [place] [facility] [place] [facility] OFFICE O/P EST HI 40-54 MIN [id number] Diagnos is: ICD-10- CM M54.17 Radicul opathy, lumbosa cral region< br/> BERNABE PRIETO EDUARDO 12/12 [facility] En[facility] [id number] 12/12 [facility] [place] [facility] [place] NUTRITION INDIV SUBSEQ [id number] Diagnos is: ICD-10- CM Z71.3 Dietary personal counselor ing and surveil jerrica<b r/> DANIELLE PARR P 12/24 [place] [facility] Encounter [id number] 01/07 [facility] [place] En[facility] [id number] 01/07 [facility] [place] OFFICE O/P EST LOW 20-29 MIN [id number] Diagnos is: ICD-10- CM M54.16 Radicul opathy, lumbar region< br/> Alphonso COHEN 01/09 [facility] En[facility] [id number] 01/24 [facility] En[facility] [id number] 01/28 [facility] En[facility] [id number] 02/05 [facility] [place] [id number] 02/06 [place] [facility] Encounter [id number] 02/06 [facility] En[facility] [id number] 02/07 [facility] [place] En[facility] [id number] 02/10 [facility] [place] Encounter [id number] 02/11 [facility] [place] En[facility] [id number] 02/19 [facility] [place] Encounter [id number] 02/22 [facility] En[facility] [id number] 02/28 [facility] Encounter [id number] 03/04 [facility] [place] En[facility] [id number] 03/06 [facility] En[facility] [id number] 03/08 [facility] En[facility] [id number] 03/11 [facility] [place] En[facility] [id number] 03/15 [facility] En[facility] [id number] 03/15 [facility] GAIT TRAINING THERAPY [id number] Diagnos is: ICD-10- CM M20.41 Other hammer toe(s) (acquir ed), right foot
MANDO BULLOCK 03/18 [facility] GAIT TRAINING THERAPY [id number] Diagnos is: ICD-10- CM M20.41 Other hammer toe(s) (acquir ed), right foot
CLEOPATRA GAGE 03/19 [place] [facility] Out[facility] Encounter [id number] 03/25 [facility]counter [id number] 03/27 [facility]counter [id number] 04/01 [facility]counter [id number] 04/08 [facility] [id number] 04/10 [facility]counter [id number] 04/10 [facility] [id number] 04/29 [facility]counter [id number] 04/29 [facility] [id number] 05/07 [facility]counter [id number] 05/10 [facility] OFFICE O/P EST LOW 20 MIN [id number] Diagnos is: ICD-10- CM L60.0 Ingrowi ng nail
WES CESAR ES F 05/22 [facility] [place] [facility]counter [id number] 05/22 [facility]counter [id number] 05/24 [facility]counter [id number] 05/24 [facility]counter [id number] 05/28 [facility]counter [id number] 06/05 [facility]counter [id number] 06/15 [facility] Out[facility]counter [id number] 06/15 [facility] [id number] 06/17 [facility] [facility] [id number] 06/18 [facility] Outpatient Encounter [id number] 06/18 [place] [facility] (6[facility]GE) MTMS BY PHARM IPHONE DEVELOPER 15 MIN [id number] Diagnos is: ICD-10- CM I48.20 Chronic atrial fibrill ation, unspeci fied
RENEE,ALB ERT SHAQ 06/19 [facility] [place]631GE[facility] [place] [facility] Outpatient Encounter [id number] 06/19 [place] [facility] (6[facility]GE) MTMS BY PHARM IPHONE DEVELOPER 15 MIN [id number] Diagnos is: ICD-10- CM Z79.01 snf (curren t) use of anticoa gulants
RENEE,ALB ERT SHAQ 06/21 [facility] (631GE) [place] MED NUTRITION INDIV SUBSEQ [id number] Diagnos is: ICD-10- CM R63.4 Abnorma l weight loss
DANIELLE PARR 06/24 [place] [facility] Outpatient Encounter [id number] 06/29 [facility] Outpatient Encounter [id number] 06/30 [facility] Outpatient Encounter [id number] 07/03 [facility] Outpatient Encounter [id number] 07/04 [facility] OFFICE O/P EST HI 40 MIN [id number] Diagnos is: ICD-10- CM I48.91 Unspeci fied atrial fibrill ation<b r/> JUAN QUINONEZ 07/04 [place] [facility] Outpatient Encounter [id number] 07/05 [facility] Outpatient Encounter [id number] 07/16 [facility] OFFICE O/P EST HI 40 MIN [id number] Diagnos is: ICD-10- CM M54.17 Radicul opathy, lumbosa cral region< br/> BERNABE PRIETO THI 07/16 [facility] Outpatient Encounter [id number] 07/16 [facility] (6[facility]GE) MTMS BY PHARM EST 15 MIN [id number] Diagnos is: ICD-10- CM I48.91 Unspeci fied atrial fibrill ation<b r/> CHUY ELKINS 07/22 [facility] Encounter [id number] 07/28 [facility] Encounter [id number] 07/31 [facility] Encounter [id number] 08/06 [facility] OFF[facility] O/P EST MOD 30 MIN [id number] Diagnos is: ICD-10- CM M46.1 Sacroil iitis, not elsewhe re classif ied<br/ > Alphonso COHEN 08/11 [facility] Encounter [id number] 08/12 [facility] Encounter [id number] 08/25 [facility] Out[facility] Encounter [id number] 08/29 [facility] Encounter [id number] 09/10 [facility] Encounter [id number] 09/12 [facility] Encounter [id number] 09/16 [facility] Out[facility] Encounter [id number] 09/23 [facility] OFFICE O/P EST HI 40 MIN [id number] Diagnos is: ICD-10- CM M46.1 Sacroil iitis, not elsewhe re classif ied<br/ > BERNABE PRIETO MAGALI THI 10/01 [facility] Out[facility] Encounter [id number] 10/01 [facility] [place] OFFICE O/P EST SF 10 MIN [id number] Diagnos is: ICD-10- CM I48.91 Unspeci fied atrial fibrill ation<b r/> JUAN QUINONEZ 10/07 [place] [facility] Out[facility] Encounter [id number] 10/10 [facility] Outpatient Encounter [id number] 10/20 [facility] [place] OFFICE O/P EST MOD 30 MIN [id number] Diagnos is: ICD-10- CM L60.0 Ingrowi ng nail
WES CESAR F 10/22 [place] [facility] Out[facility] Encounter [id number] 10/28 [facility] Encounter [id number] 10/28 [facility] COMPRE OPH EXAM EST PT 1/> [id number] Diagnos is: ICD-10- CM H40.111 1 Primary open-an gle glaucom a, right eye, mild stage<b r/> CINTHYA MARKS Carolyn 11/18 [facility] FIT SPECTACLES MULTIFOCAL [id number] Diagnos is: ICD-10- CM Z46.0 Encount er for fit/adj st of spectac les and contact lenses< br/> SELINAVERONICALillian William Leon 11/18 [facility] Out[facility] Encounter [id number] 11/21 [facility] Encounter [id number] 12/04 [facility] Out[facility] Encounter [id number] 12/05 [facility] Encounter [id number] 12/07 [facility] Out[facility] Encounter [id number] 12/19 [facility] EVALUATION OF WHEEZING [id number] Diagnos is: ICD-10- CM R06.00 Dyspnea , unspeci fied
JARMOLOWIC Z,CASANDRA 12/22 [facility] CO/MEMBANE DIFFUSE CAPACITY [id number] Diagnos is: ICD-10- CM R06.00 Dyspnea , unspeci fied
Lillian MOSQUEDA MD 12/22 [facility] Encounter [id number] 12/22 [facility] PULM FUNCTION TEST BY GAS [id number] Diagnos is: ICD-10- CM R06.09 Other forms of dyspnea
Lillian MOSQUEDA MD 12/22 [facility] Out[facility] Encounter [id number] 12/29 [facility] Out[facility] Encounter [id number] 01/05 [facility] Out[facility] Encounter [id number] 01/13 [facility] Out[facility] Encounter [id number]/19 [facility] Out[facility] Encounter [id number] 01/21 [facility] Out[facility] Encounter [id number] 01/22 [facility] OFFICE O/P EST MOD 30 MIN [id number] Diagnos is: ICD-10- CM M13.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
Alphonso COHEN 01/29 [facility] Out[facility] Encounter [id number] 01/29 [facility] Out[facility] Encounter [id number] 02/16 [facility] Out[facility] Encounter [id number] 03/06 [facility] OFFICE O/P EST LOW 20 MIN [id number] Diagnos is: ICD-10- CM L60.0 Ingrowi ng nail
WES CESAR ES F 03/11 [facility] [place] [facility] Encounter [id number] 03/13 [facility] Out[facility] Encounter [id number] 03/16 [facility] Outpatient Encounter [id number] 03/18 [facility] Out[facility] Encounter [id number] 03/20 [facility] Out[facility] Encounter [id number] 03/20 [facility] Out[facility] Encounter [id number] 04/02 [facility] Out[facility] Encounter [id number] 04/07 [facility] Out[facility] Encounter [id number] 04/13 [facility] Out[facility] Encounter [id number] 04/13 [facility] Out[facility] Encounter [id number] 04/13 [facility] Out[facility]counter [id number] 1.04/13 [facility] Out[facility] Encounter [id number] 04/16 [facility] Out[facility] Encounter [id number] 1.04/16 [facility] Out[facility] Encounter [id number] 1.04/16 [facility] OFFICE O/P EST HI 40 MIN [id number] Diagnos is: ICD-10- CM I21.4 Non-ST elevati on (NSTEMI ) myocard ial infarct ion<br/ > JUAN QUINONEZ 04/20 [facility] Out[facility] Encounter [id number] 04/20 [facility] Outpatient Encounter [id number] 04/26 [facility] Social History Combined list of available smoking, tobacco, and other social history from Department of Defense and Veterans Affairs facilities. Social History Type Response Date Comment Sourc e Tobacco smoking status [facility] [place] QU[place] 15 YRS OR MORE 07/04[place]2023 [facility] History of tobacco use [facility] FOR[facility] 07/04/2023 [facility] History of tobacco use [facility] FORMER USER 03/14/2022 [facility] History of tobacco use [facility] FORMER USER 02[facility]08/2021 [facility] History of tobacco use VA-TOBACCO QUIT 5 TO < 15 YRS 10/09/2019 [facility] History of tobacco use VA-TOBACCO QUIT 15 YRS OR MORE 10/31/2018 [facility] History of tobacco use QUIT TOBACCO USE > 7 YEARS AGO 07/12/2017 [facility] History of tobacco use QUIT TOBACCO USE > 7 YEARS AGO 03/30/2016 [facility] History of tobacco use QUIT TOBACCO USE > 7 YEARS AGO 03/04/2015 [facility] Plan of Care List of future care activities from [facility] facilities. Additional future care activities may be listed in the Assessment and Plan section. Date/Time Care Activity Care Activity Detail Facili ty 04/28/2024 AMBULATORY - MEDICINE AMBULATORY [place]IC[place] [facility] [facility] 06/22/2024 AMBULATORY - NONE AMBULATORY - NONE [facility] [place] [facility] 07/10/2024 AMBULATORY - MEDICINE AMBULATORY - MEDICI NE [facility] 07/22/2024 AMBULATORY - MEDICINE AMBULATORY - MEDICI NE [facility] 04/20/2024 Consult Order [facility]Bernard MONTERO Cons Pharmacy Resource Tech's Choice [facility] Advance Directives List of completed, amended, or rescinded Advance Directives on record at [facility] facilities. An actual copy of the Directive is not included. Date Advance Directive Provider Source 02/21/2021 ADVANCE DIRECTIVE BEL ESCALANTE
--- OUTSIDE RECORDS SUMMARY | 2024-04-28 10:49 | XMS_ITS ---
Author Name [facility] [facility] [place] [facility] [place] Address [address] [place] [address] Care Team Providers Care Market Manager Name Role Phone NEHEMIAH CUEVAS Primary Care Provide r Unavailable Insurance Providers: All historical and current Section Date Range: From patient's date of to the date document was created. This section includes the names of all active insurance providers for the patient. Insurance Provider Type of Coverage Plan Name Start of Policy Coverage End of Policy Coverage Group Number Member ID Insurance Provider's Telephone Number Policy Orellana's Name Patient's Relationship to Policy Orellana ANA [facility] Aug 11, 2014 [id number] DHAVAL SHAQ Wagner PATIENT ANA [facility] MEDICARE SUPPLEMEN [facility] Aug 11, 2014 [id number] [phone] DHAVAL SHAQ Wagner PATIENT [facility] MEDICARE SUPPLEMEN ARTEMIO MEDEX 2 Aug 11, 2014 [id number] [phone] DHAVAL SHAQ Wagner PATIENT [facility] MEDIC[facility] SUPPLEMEN ARTEMIO MEDEX 2 Aug 11, 2014 [id number] DHAVAL SHAQ Wagner PATIENT [place] MEDICARE SUPPLEMEN ARTEMIO MEDEX 2 Aug 11, 2014 [id number] AR[place] SHAQ Wagner PATIENT [employer] [place] MEDICARE SUPPLEMEN [facility] [place] [facility] Aug 11, 2014 [id number] [phone] SHAQ WONG PATIENT USMANA [facility] (WNR) MEDICARE ADVANTAGE HUMAN A INSUR [facility] Jan 11, 2022 [id number] [phone] ARCHOCTAVIOEA SHAQ Wagner PATIENT USMANA [facility] (WNR) MEDICARE ADVANTAGE [facility] (WNR) Jan 11, 2022 [id number] [phone] ARCHAMBEA SHAQ Wagner PATIENT MEDICARE (WNR) MEDICARE () PART A Dec 11, 2014 PART A [id number] [phone] ARCHAMBEA SHAQ Wagner PATIENT MEDICARE (WNR) MEDICARE () PART A Aug 11, 2014 PART A [id number] ARCHAMBEA Bernard,SHAQ PATIENT MEDICARE (WNR) MEDICARE () PART B Aug 11, 2014 PART B [id number] ARCHAMBEA SHAQ Wagner PATIENT MEDICARE (WNR) MEDICARE () PART A Aug 11, 2014 PART A [id number] ARCHAMBEA SHAQ Wagner PATIENT MEDICARE (WNR) MEDICARE () PART B Aug 11, 2014 PART B [id number] ARCHAMBEA SHAQ Wagner PATIENT MEDICARE (WNR) MEDICARE () PART A Aug 11, 2014 PART A [id number] [phone] ARCHAMBEA U,SHAQ PATIENT MEDICARE (WNR) MEDICARE () PART B Aug 11, 2014 PART B [id number] ARCHAMBEA U,SHAQ PATIENT MEDICARE (WNR) MEDICARE () PART B Aug 11, 2014 PART B [id number] ARCHAMBEA SHAQ Wagner PATIENT [facility] (WNR) MEDICARE ADVANTAGE [facility] (WNR) May 13, 2020 [id number] ARCHAMBEA SHAQ Wagner PATIENT Selected Encounter This section includes the information on record at [place] for the Encounter. Date/Time Encounter Type Encounter Description Reason Provider Source October 02, 2023 08:00 AM OFFICE O/P EST HI 40 MIN PM&RS PHYSICIAN ICD-10-CM M46.1 Sacroiliitis, not elsewhere classified BERNABE PRIETO Lillian Encounter Template Text not used by [place] Assessments - Encounter Diagnoses This section includes the primary and secondary diagnoses documented for the Encounter. Date/Time Primary/Secondary Diagnosis Diagnosis Name Provider Source October 02, 2023 08:47 AM PRIMARY Sacroiliitis, not elsewhere classified BERNABE PRIETO [place] [facility] [place] [facility] October 02, 2023 08:47 AM SECONDARY Low back pain, unspecified BERNABE PRIETO [place] [facility] [place] [facility] Plan of Treatment: Future Appointments (+ 6 months) and Future Tests (+/- 45 days) The Plan of Treatment section includes future care activities for the patient from all [place] treatmentfacilities. This section includes future appointments and future orders which are active, pending or scheduled. Future Appointments This section includes appointments that were scheduled to occur 6 months from the date of the Encounter, up to a maximum of 20 appointments. The data comes from all [place] treatment facilities. Appointment Date/Time Appointment Type Appointme nt Facility Name October 08, 2023 11:00 AM AMBULATORY - MEDICINE [facility] October 09, 2023 08:30 AM AMBULATORY - MEDICINE [place] [facility] [place] [facility] Oct 23, 2023 08:30 AM AMBULATORY - MEDICINE [facility] Nov 19, 2023 08:30 AM AMBULATORY - [place]ICINE [place] [facility] [place] [facility] Nov 28, 2023 07:30 AM AMBULATORY [facility] [place] [facility] Dec 23, 2023 07:30 AM AMBULATORY - [place]ICINE [place] [facility] [place] [facility] Dec 23, 2023 03:15 PM AMBULATORY - MEDICINE [facility] Jan 28, 2024 08:00 AM AMBULATORY [place] MEDICINE [place] [facility] [place] [facility] Jan 30, 2024 07:30 AM AMBULATORY - [place]ICINE [place] [facility] [place] [facility] Mar 06, 2024 08:45 AM AMBULATORY - [place]ICINE [place] [facility] [place] [facility] Mar 11, 2024 08:30 AM [facility] Mar 16, 2024 08:30 AM AMBULATORY - MEDICINE [place] [facility] [place] [facility] Vital Signs: All taken on the encounter date This section contains inpatient and outpatient Vital Signs collected on the date of the Encounter. Date/Time Temperature Pulse Blood Pressure Respiratory Rate SP02 Pain Height Weight Body Mass Index Source October 02, 2023 08:37 AM 50 150/70 97 6 [facility] [place] [facility] October 02, 2023 08:17 AM 146/80 [facility] [place] [facility] October 02, 2023 08:01 AM 44 18 98 6 141 21 [facility] [place] [facility] Social History: Smoking Status (Most current) and Tobacco Use (All prior to encounter date) This section includes the most current, and the historical, smoking and tobacco- related health factors from the [place] facility where the Encounter took place. Current Smoking Status This section includes the most current smoking, or tobacco-related health factor, from the [place] facility where the Encounter took place. Date/Time Current Smoking Status Comment Facil ity Jul 04, 2023 09:00 AM VA-TOBACCO QUIT 15 YRS OR MORE [place] [facility] [place] [facility] Tobacco Use History This section includes a history of the smoking, or tobacco-related health factors, that were collected on or before the date of the Encounter. The data comes from the [place] facility where the Encounter took place. Date/Time Smoking Status/Tobacco Use Comment F acility Jul 04, 2023 09:00 AM VA-TOBACCO QUIT 15 YRS OR MORE [facility] [place] [facility] Mar 14, 2022 03:02 PM VA-TOBACCO FORMER USER [facility] [place] [facility] Mar 14, 2022 03:02 PM VA-TOBACCO QUIT 15 YRS OR MORE [facility] [place] [facility] Feb 08, 2021 09:00 AM VA-TOBACCO FORMER USER [facility] [place] [facility] Feb 08, 2021 09:00 AM VA-TOBACCO QUIT 15 YRS OR MORE [facility] [place] [facility] October 09, 2019 01:12 PM VA-TOBACCO FORMER USER [facility] [place] [facility] October 09, 2019 01:12 PM VA-TOBACCO QUIT 5 TO < 15 YRS [facility] Advance Directives: All historical and current Section Date Range: From patient's date of to the date document was created. This section includes ALL of a patient's completed or amended [place] Advance and Rescinded Directives. The entries below indicate that a directive exists for the patient, but an actual copy is not included with this document. The data comes from all [place] facilities. Date Advance Directives Provider Source Feb 21, 2021 ADVANCE DIRECTIVE [facility] Radiology Reports: +/- 30 days of the encounter Radiology Reports For cases when an order for radiology services may have been completed prior to the date of the Encounter, the report list includes the Radiology Reports that were completed up to 30 days before dateof the Encounter. For cases when an order for radiology services may have been completed after the date of the Encounter, the report list also includes the Radiology Reports that were completed up to30 days after date of the Encounter. The data comes from all [place] treatment facilities. Date/Time Radiology Report Provider Source October 02, 2023 08:18 AM FLUOROSCOPIC NITIN NCE FOR NEEDLE PLACEMENT: SHAQ GREGORIO [id number] -[id number] M Exm Date: OCTOBER 02, 2023@08:18 Req Phys: BERNABE PRIETO Pat Loc: [facility]/NO/MED REHAB/SPINE INJ (Re Img Loc: [facility]/BUILDING 1 Service: Unknown [facility] , (Case [id number] COMPLETE) FLUOROSCOPIC GUIDANCE FOR NEEDLE (RAD Detailed) CPT:46621 Proc Modifiers : LEFT Reason for Study: SI joint injection Clinical History: Report Status: Verified Date Reported: OCTOBER 02, 2023 Date Verified: OCTOBER 02, 2023 Supervisory Forester E-Sig:/ES/LOU VICTORIA JR Report: Study: Pain injection of the left sacroiliac joint. Findings: Fluoroscopic guidance was provided to Pain Management for interventional pain injection. No dictation provided for this study. Images captured for documentation only. Total fluoroscopy time used was 8.2 seconds. Total cumulative dose is 1.96 mGy. Impression: Fluoroscopic guidance for interventional pain injection. Primary Diagnostic Code: No immediate attention required Primary Interpreting Staff: LOU VICTORIA JR, Radiologist (Supervisory Forester) /LOU WASHINGTON JR [facility] Encounter Notes: All associated encounter notes This section contains the clinical notes associated to the Encounter. Date/Time Encounter Note(s) Provider Source October 02, 2023 08:34 AM PHYSICAL MEDICINE REHAB NOTE: LOCAL TITLE: PM&R BACK/JOINT PROCEDURE NOTE STANDARD TITLE: PHYSICAL MEDICINE REHAB NOTE DATE OF NOTE: OCTOBER 02, 2023@08:34 ENTRY DATE: OCTOBER 02, 2023@08:34:38 AUTHOR: BERNABE PRIETO TH EXP COSIGNER: URGENCY: STATUS: COMPLETED PROCEDURE NOTE: SACROILIAC JOINT INJECTION WITH FLUOROSCOPY PROCEDURE: 1) Left sacroiliac joint injection 2) Fluoroscopic needle guidance REASON FOR PROCEDURE: Sacroiliac joint pain/sacroiliitis PHYSICIAN: Bernabe Prieto DO MEDICATIONS INJECTED: 40 mg triamcinolone and 1 mL of 1%lidocaine. Lot #: [id number] Exp: 03/2025 LOCAL ANESTHETIC INJECTED: 1 mL of 1% lidocaine per site CONTRAST AGENT USED: 0.2mL of Omnipaque 300 CONTRAST AGENT WASTED: 0mL of Omnipaque 300 SEDATION MEDICATIONS: None ESTIMATED BLOOD LOSS: None COMPLICATIONS: None HISTORY: presents today for treatment of left buttock and low back symptoms. Have been attributed to left sacroiliac joint. Lumbar radicular pain improved with previous epidural injection July 17, 2023. The right foot feels wonderful since the toe amp on the right side. He has great with regard for his orthopedic surgeon. He did mention that he has been having some difficulties with pain in the left foot. He had a previous ankle fusion. Pain is below the lateral malleolus and walking on uneven surfaces seems to aggravate symptoms considerably. Pain in the low back region also bothers him with sitting. Pain is in the left buttock. Extension aggravates symptoms. No radicular symptoms. No bowel or bladder involvement. His pain levels are upwards of 6 out of 10 on an analog scale but can escalate to 8 out of 10. He has not had any fevers or chills. No recent vaccinations. EXAM: Vitals in chart. Awake, alert, in no apparent distress. Gets on and off exam table without difficulties. Provocative maneuvers for sacroiliac joint dysfunction on the left are positive. Negative Lasegue's maneuver. Negative seated straight leg raise. Mild atrophy of the gluteal region. He has well-healed incision anteriorly in the ankle. There is limited motion at the ankle itself and the subtalar joint he has discomfort with inversion and eversion. High arch noted. No tenderness in foot to light touch. Mild loss of sensation in the left foot. Good color. Distal pulses intact. INFORMED CONSENT: Verbal and written consent in Imed. TIME OUT NOTE TIME: September@08:19 correctly stated: [X]Full name: SHAQ GREGORIO [X]Last 4 of #: [id number] [X]: Aug STAFF NAME: Alivia Medel LPN LOCATION: Marked site in the left low back. TECHNIQUE: Time-out was taken to identify the correct patient, procedure and side prior to starting the procedure. With the patient lying in the prone position, the patient was prepped and draped in the usual sterile fashion using ChloraPrep and a fenestrated drape. The sacroiliac joint was determined under fluoroscopy. Local anesthetic was given by raising a skin wheal and going down to the hub of a 30-gauge 0.5-inch needle. The 3.5-inch 25-gauge Quincke needle was advanced into the above sacroiliac joint. After a negative aspirate to make sure that there was no intravascular placement, Omnipaque 300 was injected to confirm intraarticular spread, and confirm no vascular runoff. Medication was then injected slowly. The procedure was completed without complications and was tolerated well. The patient was monitored after the procedure. The patient (or responsible alliance party) was given post-procedure and discharge instructions to follow at home. The patient was discharged in stable condition. 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 PLAN: - Left SI joint injection today. - Post-injection follow-up with PM&R RANDA in 2-4 weeks. - Discharge instructions provided including the use of ice q2 hrs x 48 hrs prn post injection soreness/pain. - Referred to Dr. Alexander ([facility]) for continued care of left ankle pain, possibly needing CSI. If conservative intervention is recommended and patient wishes to continue injections at the [place], he will contact me or PCP for a referral to Podiatry (Dr. Novoa) for cortisone injections. - Bracing may provide improved control as well as potential injection. - Further consideration of surgical treatment also is an option if conservative treatment fails. - Engage in some form of low impact aerobic activity daily such as walking daily for 30 minutes or longer if tolerated. Pacing and rest breaks as needed. - Will need to revisit home exercise program pending response to today's injection. - No medication changes. - Contact me with any issues/questions MDM: 45 minutes Patient was seen and evaluated with Aki Eng PA-C prior to injection. Medication Reconciliation: Outpatient: Has the patient been taking medications as documented in the EMLR? YES: The patient has been taking medications as documented in the EMLR. Essential Medication List for Review used to complete this medication reconciliation. INCLUDED IN THIS LIST: Alphabetical list of active outpatient prescriptions dispensed from this [place] (local) and dispensed from another [place] or [facility] facility (remote) as well as inpatient orders (local, pending and active), local clinic medications, locally documented non-VA medications, and local prescriptions that have or been discontinued in the past 90 days. - All changes in medications, including all non-VA/Herbal/OTC medications were entered into CPRS. - If there were any medications the patient should no longer take, they were discontinued. - The patient/caregiver was instructed to update this list, discard old lists, and take this list to the next appointment, whether with a VA or non-VA provider. /robe/ BERNABE PRIETO DO OUT AND OUT CIGAR MAKER HAND Signed: 10/02/2023 08:47 BERNABE PRIETO [place] [facility] October 02, 2023 08:20 AM DISCHARGE NOTE: LOCAL TITLE: DISCHARGE INSTRUCTIONS/OUTPATIENT STANDARD TITLE: DISCHARGE NOTE DATE OF NOTE: OCTOBER 02, 2023@08:20 ENTRY DATE: OCTOBER 02, 2023@08:20:19 AUTHOR: BERNABE PRIETO TH EXP COSIGNER: URGENCY: STATUS: COMPLETED Your ATTENDING PHYSICIAN for today's injection is: Bernabe Prieto DO Reason for Visit: Left SI joint injection - Physical/Activity Limitations: No strenous activity for 24 Hours - Diet: Resume Previous Diet - Medication reconciliation performed. Active Outpatient Medications (including Supplies): Active Outpatient Medications Status 1) APIXABAN 5MG TAB TAKE ONE TABLET BY MOUTH EVERY 12 ACTIVE HOURS 2) DRONEDARONE 400MG TAB TAKE ONE TABLET BY MOUTH TWICE ACTIVE DAILY 3) FLUTICASONE PROP 50MCG 120D NASAL INHL INSTILL 1 ACTIVE SPRAY INTO EACH NOSTRIL AT BEDTIME 4) LATANOPROST 0.005% OPH SOLN INSTILL 1 DROP INTO EACH HOLD EYE AT BEDTIME FOR WIDE-ANGLE GLAUCOMA 5) LOVASTATIN 20MG TAB TAKE ONE TABLET BY MOUTH AT ACTIVE BEDTIME FOR CHOLESTEROL -- AVOID GRAPEFRUIT JUICE 6) NUTRITION SUPL ENSURE PLUS/VANILLA LIQ DRINK 1 CAN BY ACTIVE MOUTH TWICE DAILY 7) ONDANSETRON HCL 4MG TAB TAKE ONE TABLET BY MOUTH ONCE ACTIVE DAILY NEEDED FOR VOMITING/NAUSEA 8) OXYCODONE HCL 5MG/APAP 325MG TAB TAKE 1 TABLET BY ACTIVE MOUTH THREE TIMES DAILY NEEDED FOR PAIN NEXT FILL 10/25/23 9) ROPINIROLE HCL 0.25MG TAB TAKE ONE TABLET BY MOUTH ACTIVE DAILY Active Non-VA Medications Status 1) Non-VA ACETAMINOPHEN 500MG TAB 1000MG BY MOUTH THREE ACTIVE TIMES DAILY NEEDED 10 Total Medications No changes to current medications Resume your prior meds at you next regular scheduled dose except Aspirin, Plavix, Warfarin which can be restarted the next day if you are taking these medications. Medication Education 1. Take medications in the exact amount ordered by the clinician. Do not take more or less. 2. Keep each medication in the original and separate containers. 3. Ice every 2 hours as needed for post injection soreness/pain. Keep on for 15 minutes. Do not use heat within the first 48 hours unless specifically instructed by your doctor. 4. Keep a complete list of all your medications and share with all your health care providers, include all over the counter medications, vitamins or supplements. 5. Do not drink alcoholic beverage, drive or operate machinery, cook or make important decisions for twenty-four (24) hours. A responsible adult should remain with you for the next twenty-four hours and you should REST quietly during this time. Recommended plan for follow up: As scheduled Please call TELEPHONE ASSISTANCE if you experience: Fever 101.5, Dizziness or light-headedness, Redness, discharge, warmth to the touch or foul smelling discharge from wound, Shortness of breath, Nausea, vomiting, diarrhea, or no bowel movement for more than 48 hrs, Newly onset headache, Changes in behavior If you feel the medications are making you sick, your symptoms worsen or you are experiencing problems contact: TELEPHONE ASSISTANCE at [phone] or extension [phone] Or [phone] extension [phone] (MARAH Bunch) or extension [phone] (LUZMARIA Jett) If you are in an emotional crisis, feeling suicidal or having any troubling or self-destructive or violent impulses - please call [phone] (or [phone]); press 1 for Veterans to ask for help 24hours per day. Discharge Instructions printed and given to patient: No. Verbal instructions provided due to COVID-19 restrictions. Patient/Caregiver verbalizes understanding of discharge instructions: Yes Diagnostic studies discussed with patient: N/A I have discussed these instructions with the patient/responsible adult and/or demonstrated appropriate care for the patient post discharge. A copy of these discharge instructions have been printed and given to the patient at the time of discharge. /robe/ BERNABE PRIETO DO OUT AND OUT CIGAR MAKER HAND Signed: 10/02/2023 09:39 [facility]BE [facility]
--- OUTSIDE RECORDS SUMMARY | 2024-04-28 10:49 | XMS_ITS | Encounter Summary ---
Author Name [place] Address [address] [place] [id number] Care Team Providers Care Banking Analyst Name Role Phone NEHEMIAH CUEVAS Primary Care [...] Member ID Insurance Provider's Telephone Number Policy Orlelana's Name Patient's Relationship to Policy Orellana ANA [facility] Aug 11, 2014 [id number] DHAVAL SHAQ Wagner PATIENT [facility] SUPPLEMEN ARTEMIO [facility] Aug 11, 2014 [id number] ARCHSTEPHANIA SHAQ Wagner [facility] SUPPLEMEN ARTEMIO MEDEX 2 Aug 11, 2014 [id number] DHAVAL SHAQ Wagner [facility] SUPPLEMEN ARTEMIO MEDEX 2 Aug 11, 2014 [id number] ARCHSTEPHANIA SHAQ Wagner PATIENT BCBS [place] MEDICARE SUPPLEMEN ARTEMIO MEDEX 2 Aug 11, 2014 [id number] ARCHOCTAVIOEA SHAQ Wagner [place] MEDICARE SUPPLEMEN [facility] [place] [facility] Aug 11, 2014 [id number] [phone] SHAQ WONG PATIENT USMANA [facility] (WNR) MEDICARE ADVANTAGE HUMAN A INSUR [place] [facility] Jan 11, 2022 [id number] [phone] ARCHOCTAVIOEA SHAQ Wagner PATIENT USMANA MCR (WNR) MEDICARE ADVANTAGE [facility] (WNR) Jan 11, 2022 [id number] [phone] ARCHAMBEA SHAQ Wagner PATIENT MEDICARE (WNR) MEDICARE (M) PART A Dec 11, 2014 PART A [id number] [phone] AR[place]AMBEA SHAQ Wagner PATIENT MEDICARE (WNR) MEDICARE (M) PART A Aug 11, 2014 PART A [id number] ARCHAMBEA SHAQ Wagner PATIENT MEDICARE (WNR) MEDICARE () PART B Aug 11, 2014 PART B [id number] ARCHAMBEA SHAQ Wagner PATIENT MEDICARE (WNR) MEDICARE () PART B Aug 11, 2014 PART B [id number] [phone] ARCHAMBEA SHAQ Wagner PATIENT MEDICARE (WNR) MEDICARE (M) PART A Aug 11, 2014 PART A [id number] ARCHAMBEA SHAQ Wagner PATIENT MEDICARE (WNR) MEDICARE () PART B Aug 11, 2014 PART B [id number] ARCHAMBEA SHAQ Wagner PATIENT MEDICARE (WNR) MEDICARE (M) PART A Aug 11, 2014 PART A [id number] [phone] ARCHAMBEA SHAQ Wagner PATIENT MEDICARE (WNR) MEDICARE (M) PART B Aug 11, 2014 PART B [id number] ARCHAMBEA SHAQ Wagner [facility] (WNR) MEDICARE ADVANTAGE [facility] (WNR) May 13, 2020 [id number] ARCHOCTAVIOEA SHAQ Wagner PATIENT Selected Encounter This section includes the information on record at [place] for the Encounter. Date/Time Encounter Type Encounter Description Reason Pro vider Source Aug 13, 2023 12:00 AM Outpatient Encounter EVENT (HISTORICAL) IHE Encounter Template Text not used by [place] Plan of Treatment: Future Appointments (+ 6 months) and Future Tests (+/- 45 days) The Plan of Treatment section includes future care activities for the patient from all [place] treatmentfacilities. This section includes future appointments and future orders which are active, pending or scheduled. Future Appointments This section includes appointments that were scheduled to occur 6 months from the date of the Encounter, up to a maximum of 20 appointments. The data comes from all [place] treatment facilities. Appointment Date/Time Appointment Type Appointme nt Facility Name Aug 30, 2023 08:45 AM AMBULATORY - MEDICINE [place] [facility] [place] [facility] October 02, 2023 08:00 AM AMBULATORY - REHAB MEDICIN [facility] [place] [facility] October 08, 2023 11:00 AM [facility]ULATORY - MEDICINE [facility] October 09, 2023 08:30 AM AMBULATORY - MEDICINE [place] [facility] [place] [facility] Oct 23, 2023 08:30 AM AMBULATORY - MEDICINE [facility] Nov 19, 2023 08:30 AM AMBULATORY - MEDICINE [place] [facility] [place] [facility] Nov 28, 2023 07:30 AM AMBULATORY - REHAB MEDICIN E [place] [facility] [place] [facility] Dec 23, 2023 07:30 AM AMBULATORY - MEDICINE [place] [facility] [place] [facility] Dec 23, 2023 03:15 PM AMBULATORY - MEDICINE [facility] Jan 28, 2024 08:00 AM AMBULATORY - MEDICINE [place] [facility] [place] [facility] Jan 30, 2024 07:30 AM AMBULATORY - MEDICINE [place] [facility] [place] [facility] Social History: Smoking Status (Most current) and Tobacco Use (All prior to encounter date) This section includes the most current, and the historical, smoking and tobacco- related health factors from the [facility] facility where the Encounter took place. Current Smoking Status This section includes the most current smoking, or tobacco-related health factor, from the [place] facility where the Encounter took place. Date/Time Current Smoking Status Comment Lor gonzalez Jul 04, 2023 09:00 AM [place]-TOBACCO QUIT 15 YRS OR MORE [facility] Tobacco Use History This section includes a history of the smoking, or tobacco-related health factors, that were collected on or before the date of the Encounter. The data comes from the [place] facility where the Encounter took place. Date/Time Smoking Status/Tobacco Use Comment F acility Jul 04, 2023 09:00 AM VA-TOBACCO [facility] [place] [facility] Mar 14, 2022 03:02 PM VA-TOBACCO FORMER USER [place] [facility] [place] [facility] Mar 14, 2022 03:02 PM VA-TOBACCO QUIT 15 YRS OR MORE [facility] [place] [facility] Feb 08, 2021 09:00 AM VA-TOBACCO FORMER USER [place] [facility] [place] [facility] Feb 08, 2021 09:00 AM VA-TOBACCO QUIT 15 YRS OR MORE [facility] [place] [facility] October 09, 2019 01:12 PM VA-TOBACCO FORMER USER [facility] October 09, 2019 01:12 PM VA-TOBACCO QUIT 5 TO < 15 YRS [facility] Advance Directives: All historical and current Section Date Range: From patient's date of to the date document was created. This section includes ALL of a patient's completed or amended [place] Advance and Rescinded Directives. The entries below indicate that a directive exists for the patient, but an actual copy is not included with this document. The data comes from all [place] facilities. Date Advance Directives Provider Source Feb 21, 2021 ADVANCE DIRECTIVE BEL ESCALANTE [facility] Radiology Reports: +/- 30 days of the [...] the Encounter. The data comes from all [place] treatment facilities. Date/Time Radiology Report Provider Source Jul 17, 2023 11:09 AM FLUOROSCOPIC NITIN LOYOLA OF NEEDLE/SPINE: SHAQ GREGORIO [id number] -1950 M Exm Date: JUL 17, 2023@11:09 Req Phys: BERNABE PRIETO THI Pat Loc: CWM/NO/MED REHAB/SPINE INJ (Re Img Loc: [facility] 1 Service: Unknown (Case [id number] COMPLETE) FLUOROSCOPIC GUIDANCE OF NEEDLE/S(RAD Detailed) CPT:29536 Reason for Study: transforaminal epidural steroid injection Clinical History: Report Status: Verified Date Reported: JUL 17, 2023 Date Verified: JUL 17, 2023 Box Car Checker E-Sig:/ES/LOU VICTORIA JR Report: Study: Pain injection of the lumbar spine. Findings: Fluoroscopic guidance was provided to Pain Management for interventional pain injection. No dictation provided for this study. Images captured for documentation only. Total fluoroscopy time used was 27.6 seconds. Total cumulative dose is 10.31 mGy. Impression: Fluoroscopic guidance for interventional pain injection. Primary Diagnostic Code: No immediate attention required Primary Interpreting Staff: LOU VICTORIA JR, Radiologist (Box Car Checker) /LOU WASHINGTON JR [facility] Encounter Notes: All associated encounter notes This section contains the clinical notes associated to the Encounter. Date/Time Encounter Note(s) Provider Source Aug 13, 2023 12:00 AM NONVA CONSULT: LOCAL TITLE: COMMUNITY CARE-CONSULT RESULT NOTE STANDARD TITLE: NONVA CONSULT DATE OF NOTE: AUG 13, 2023 ENTRY DATE: OCTOBER 03, 2023@11:01:43 AUTHOR: FRANK SWANSON EXP COSIGNER: URGENCY: STATUS: COMPLETED VistA Imaging - Scanned Document SCANNED DOCUMENT SIGNATURE NOT REQUIRED Electronically Filed: 10/03/2023 by: FRANK VELARDE [facility]
--- OUTSIDE RECORDS SUMMARY | 2024-04-28 10:49 | XMS_ITS | Encounter Summary ---
Author Name [place] Address [address] [place] [address] Care Team Providers Care Peer Health Promoter Name Role Phone NEHEMIAH CUEVAS Primary Care [...] Name Patient's Relationship to Policy [facility]rellana [facility] Aug 11, 2014 [id number] DHAVAL SHAQ Wagner PATIENT [facility]MEN ARTEMIO [facility] Aug 11, 2014 [id number] [phone] DHAVAL SHAQ Wagner [facility]PP[facility] ARTEMIO MEDEX 2 Aug 11, 2014 [id number] DHAVAL SHAQ Wagner [facility] SUPPLEMEN ARTEMIO MEDEX 2 Aug 11, 2014 [id number] [phone] ARCHAMBRENATA SHAQ Wagner [place] SUPPLEMEN ARTEMIO MEDEX 2 Aug 11, 2014 [id number] ARCHAMBEA SHAQ Wagner PATIENT [place] MEDICARE SUPPLEMEN [facility] [place] [facility] Aug 11, 2014 [id number] [phone] SHAQ WONG PATIENT USMANA [facility] (WNR) MEDICARE ADVANTAGE HUMAN A INSUR [place] [facility] Jan 11, 2022 [id number] [phone] ARCHOCTAVIOEA SHAQ Wagner PATIENT USMANA [facility] (WNR) MEDICARE ADVANTAGE [facility] (WNR) Jan 11, 2022 [id number] [phone] ARCHAMBEA SHAQ Wagner PATIENT MEDICARE (WNR) MEDICARE () PART A Dec 11, 2014 PART A [id number] [phone] ARCHAMBEA SHAQ Wagner PATIENT MEDICARE (WNR) MEDICARE () PART A Aug 11, 2014 PART A [id number] ARCHAMBEA SHAQ Wagner PATIENT MEDICARE (WNR) MEDICARE () PART B Aug 11, 2014 PART B [id number] ARCHAMBEA SHAQ Wagner PATIENT MEDICARE (WNR) MEDICARE () PART A Aug 11, 2014 PART A [id number] ARCHAMBEA SHAQ Wagner PATIENT MEDICARE (WNR) MEDICARE () PART B Aug 11, 2014 PART B [id number] ARCHAMBEA SHAQ Wagner PATIENT MEDICARE (WNR) MEDICARE () PART A Aug 11, 2014 PART A [id number] [phone] ARCHAMBEA SHAQ Wagner PATIENT MEDICARE (WNR) MEDICARE () PART B Aug 11, 2014 PART B [id number] ARCHAMBEA U,SHAQ PATIENT MEDICARE (WNR) MEDICARE (M) PART B Aug 11, 2014 PART B [id number] [phone] ARCHAMBEA SHAQ Wagner [facility] (WNR) MEDICARE ADVANTAGE [facility] (WNR) May 13, 2020 [id number] ARCHAMBEA SHAQ Wagner PATIENT Selected Encounter This section includes the information on record at [place] for the Encounter. Date/Time Encounter Type Encounter Description Reason Pro vider Source October 02, 2023 08:19 AM Outpatient Encounter EVENT (HISTORICAL) IHE Encounter Template Text not used by [place] Plan of Treatment: Future Appointments (+ 6 months) and Future Tests (+/- 45 days) The Plan of Treatment section includes future care activities for the patient from all [place] treatmentfacilities. This section includes future appointments and future orders which are active, pending or scheduled. Future Appointments This section includes appointments that were scheduled to occur 6 months from the date of the Encounter, up to a maximum of 20 appointments. The data comes from all [place] treatment facilities. Appointment Date/Time Appointment Type Appointme nt Facility Name October 08, 2023 11:00 AM [facility] October 09, 2023 08:30 AM AMBULATORY - MEDICINE [place] [facility] [place] [facility] Oct 23, 2023 08:30 AM AMBULATORY - MEDICINE [facility] Nov 19, 2023 08:30 AM AMBULATORY - MEDICINE [place] [facility] [place] [facility] Nov 28, 2023 07:30 AM AMBULATORY - REHAB MEDICIN E [place] [facility] [facility] Dec 23, 2023 07:30 AM AMBULATORY - MEDICINE [place] [facility] [place] [facility] Dec 23, 2023 03:15 PM AMBULATORY - MEDICINE [facility] Jan 28, 2024 08:00 AM AMBULATORY - MEDICINE [place] [facility] [place] [facility] Jan 30, 2024 07:30 AM AMBULATORY - MEDICINE [place] [facility] [place] [facility] Mar 06, 2024 08:45 AM AMBULATORY - MEDICINE [place] [facility] [place] [facility] Mar 11, 2024 08:30 AM AMBULATORY - MEDICINE [facility] Mar 16, 2024 08:30 AM AMBULATORY - MEDICINE [place] [facility] [place] [facility] Vital Signs: All taken on the encounter date This section contains inpatient and outpatient Vital Signs collected on the date of the Encounter. Date/Time Temperature Pulse Blood Pressure Respiratory Rate SP02 Pain Height Weight Body Mass Index Source October 02, 2023 08:37 AM 50 150/70 97 6 [place] [facility] [place] [facility] October 02, 2023 08:17 AM 146/80 [facility] [place] [facility] October 02, 2023 08:01 AM 44 18 98 6 141 21 [place] [facility] Social History: Smoking Status (Most current) and Tobacco Use (All prior to encounter date) This section includes the most current, and the historical, smoking and tobacco- related health factors from the [place] facility where the Encounter took place. Current Smoking Status This section includes the most current smoking, or tobacco-related health factor, from the [place] facility where the Encounter took place. Date/Time Current Smoking Status Comment Facil ity Jul 04, 2023 09:00 AM VA-TOBACCO QUIT 15 YRS OR MORE [facility] Tobacco Use History This section includes a history of the smoking, or tobacco-related health factors, that were collected on or before the date of the Encounter. The data comes from the [place] facility where the Encounter took place. Date/Time Smoking Status/Tobacco Use Comment F acility Jul 04, 2023 09:00 AM VA-TOBACCO QUIT 15 YRS OR MORE [place] [facility] [place] [facility] Mar 14, 2022 03:02 PM VA-TOBACCO FORMER USER [place] [facility] [place] [facility] Mar 14, 2022 03:02 PM VA-TOBACCO QUIT 15 YRS OR MORE [facility] [place] [facility] Feb 08, 2021 09:00 AM VA-TOBACCO FORMER USER [place] [facility] [place] [facility] Feb 08, 2021 09:00 AM VA-TOBACCO QUIT 15 YRS OR MORE [place] [facility] [place] [facility] October 09, 2019 01:12 PM VA-TOBACCO FORMER USER [place] [facility] [place] [facility] October 09, 2019 01:12 PM VA-TOBACCO QUIT 5 TO < 15 YRS [place] [facility] [place] [facility] Advance Directives: All historical and current Section Date Range: From patient's date of to the date document was created. This section includes ALL of a patient's completed or amended [place] Advance and Rescinded Directives. The entries below indicate that a directive exists for the patient, but an actual copy is not included with this document. The data comes from all [place] facilities. Date Advance Directives Provider Source Feb 21, 2021 ADVANCE DIRECTIVE BEL ESCALANTE [facility] Radiology Reports: +/- 30 days of the [...] the Encounter. The data comes from all [place] treatment facilities. Date/Time Radiology Report Provider Source October 02, 2023 08:18 AM FLUOROSCOPIC NITIN NCE FOR NEEDLE PLACEMENT: SHAQ GREGORIO [id number] -[id number] M Exm Date: OCTOBER 02, 2023@08:18 Req Phys: BERNABE PRIETO THI Pat Loc: CWM/NO/MED REHAB/SPINE INJ (Re Img Loc: [facility] 1 Service: Unknown [facility] , (Case [id number] COMPLETE) FLUOROSCOPIC GUIDANCE FOR NEEDLE (RAD Detailed) CPT:32674 Proc Modifiers : LEFT Reason for Study: SI joint injection Clinical History: Report Status: Verified Date Reported: OCTOBER 02, 2023 Date Verified: OCTOBER 02, 2023 Power Superintendent E-Sig:/ES/LOU VICTORIA JR Report: Study: Pain injection [...] Primary Interpreting Staff: LOU VICTORIA JR, Radiologist (Power Superintendent) /LOU WASHINGTON JR [facility]
--- OUTSIDE RECORDS SUMMARY | 2024-04-28 10:50 | XMS_ITS | Encounter Summary ---
Author Name [facility] [facility] [place] Organization [facility] [place] [facility] [place] Address [address] [place] [address] Care Team Providers Care Concessionist Name Role Phone NEHEMIAH CUEVAS Primary Care [...] Name Patient's Relationship to Policy Orellana ANA [facility] Aug 11, 2014 [id number] [phone] DHAVAL SHAQ Wagner PATIENT [facility] SUPPLEMEN [facility]EMIO [facility] Aug 11, 2014 [id number] DHAVAL SHAQ [facility] ARTEMIO MEDEX 2 Aug 11, 2014 [id number] [phone] DHAVAL SHAQ Wagner [facility] MEDEX 2 Aug 11, 2014 [id number] [phone] DHAVAL SHAQ [place] MEDEX 2 Aug 11, 2014 [id number] [phone] ARCHAMBEA SHAQ Wagner PATIENT [facility] [place] MEDICARE SUPPLEMEN [facility] Aug 11, 2014 [id number] [phone] LAURIEEA SHAQ Wagner PATIENT HUMANA [facility] (WNR) MEDICARE ADVANTAGE HUMAN A INSUR [place] [facility] Jan 11, 2022 [id number] [phone] ARCHOCTAVIOEA SHAQ Wagner PATIENT USMANA [facility] (WNR) MEDICARE ADVANTAGE [facility] (WNR) Jan 11, 2022 [id number] [phone] ARCHAMBEA SHAQ Wagner PATIENT MEDICARE (WNR) MEDICARE (M) PART A Dec 11, 2014 PART A [id number] [phone] ARCHAMBEA U,SHAQ PATIENT MEDICARE (WNR) MEDICARE () PART A Aug 11, 2014 PART A [id number] ARCHAMBEA SHAQ Wagner PATIENT MEDICARE (WNR) MEDICARE () PART B Aug 11, 2014 PART B [id number] ARCHAMBEA U,SHAQ PATIENT MEDICARE (WNR) MEDICARE () PART A Aug 11, 2014 PART A [id number] ARCHAMBEA U,SHAQ PATIENT MEDICARE (WNR) MEDICARE () PART B Aug 11, 2014 PART B [id number] ARCHAMBEA Bernard,SHAQ PATIENT MEDICARE (WNR) MEDICARE () PART A Aug 11, 2014 PART A [id number] ARCHAMBEA U,SHAQ PATIENT MEDICARE (WNR) MEDICARE () PART B Aug 11, 2014 PART B [id number] [id number] ARCHAMBEA U,SHAQ PATIENT MEDICARE (WNR) MEDICARE () PART B Aug 11, 2014 PART B [id number] ARCHAMBEA SHAQ Wagner PATIENT [facility] (WNR) MEDICARE ADVANTAGE [facility] (WNR) May 13, 2020 [id number] ARCHAMBEA USHAQ PATIENT Selected Encounter This section includes the information on record at ME for the Encounter. Date/Time Encounter Type Encounter Description Reason Pro vider Source Oct 21, 2023 08:49 AM Outpatient Encounter ADMIN PAT ACTIVTIES (SURINDERNONCT) IHE Encounter Template Text not used by ME Plan of Treatment: Future Appointments (+ 6 months) and Future Tests (+/- 45 days) The Plan of Treatment section includes future care activities for the patient from all [facility]. This section includes future appointments and future orders which are active, pending or scheduled. Future Appointments This section includes appointments that were scheduled to occur 6 months from the date of the Encounter, up to a maximum of 20 appointments. The data comes from all ME treatment facilities. Appointment Date/Time Appointment Type Appointme nt Facility Name Oct 23, 2023 08:30 AM AMBULATORY - MEDICINE [facility] Nov 19, 2023 08:30 AM AMBUL[facility] [place] [facility] Nov 28, 2023 07:30 AM AMBULATORY - REHAB MEDICIN E [facility] [place] [facility] Dec 23, 2023 07:30 AM AMBULATORY - MEDICINE [facility] [place] [facility] Dec 23, 2023 03:15 PM AMBULATORY - MEDICINE [facility] Jan 28, 2024 08:00 AM AMBULATORY - MEDICINE [facility] [place] [facility] Jan 30, 2024 07:30 AM AMBULATORY - MEDICINE [facility] [place] [facility] Mar 06, 2024 08:45 AM AMBULATORY - MEDICINE [facility] [place] [facility] Mar 11, 2024 08:30 AM AMBULATORY - MEDICINE [facility] Mar 16, 2024 08:30 AM AMBULATORY - MEDICINE [facility] [place] [facility] Apr 07, 2024 10:00 AM AMBULATORY - MEDICINE [facility] [place] [facility] Apr 20, 2024 08:30 AM AMBULATORY - MEDICINE [facility] Social History: Smoking Status (Most current) and Tobacco Use (All prior to encounter date) This section includes the most current, and the historical, smoking and tobacco- related health factors from the ME facility where the Encounter took place. Current Smoking Status This section includes the most current smoking, or tobacco-related health factor, from the [place] facility where the Encounter took place. Date/Time Current Smoking Status Comment Facil carlos Jul 04, 2023 09:00 AM [facility] Tobacco Use History This section includes a history of the smoking, or tobacco-related health factors, that were collected on or before the date of the Encounter. The data comes from the ME facility where the Encounter took place. Date/Time Smoking Status/Tobacco Use Comment F acility Jul 04, 2023 09:00 AM VA-TOBACCO QUIT 15 YRS OR MORE [facility] [place] [facility] Mar 14, 2022 03:02 PM VA-TOBACCO FORMER USER [facility] [place] [facility] Mar 14, 2022 03:02 PM VA-TOBACCO QUIT 15 YRS OR MORE [facility] [place] [facility] Feb 08, 2021 09:00 AM VA-TOBACCO FORMER USER [facility] [place] [facility] Feb 08, 2021 09:00 AM VA-TOBACCO QUIT 15 YRS OR MORE [facility] [place] [facility] October 09, 2019 01:12 PM VA-TOBACCO FORMER USER [facility] [place] [facility] October 09, 2019 01:12 PM VA-TOBACCO QUIT 5 TO < 15 YRS [facility] Advance Directives: All historical and current Section Date Range: From patient's date of to the date document was created. This section includes ALL of a patient's completed or amended ME Advance and Rescinded Directives. The entries below indicate that a directive exists for the patient, but an actual copy is not included with this document. The data comes from all [place] facilities. Date Advance Directives Provider Source Feb 21, 2021 ADVANCE DIRECTIVE BEL ESCALANTE [facility] Radiology Reports: +/- 30 days of [...] the Encounter. The data comes from all [place] treatment facilities. Date/Time Radiology Report Provider Source October 02, 2023 08:18 AM FLUOROSCOPIC NITIN NCE FOR NEEDLE PLACEMENT: SHAQ GREGORIO [id number] -1950 M Exm Date: OCTOBER 02, 2023@08:18 Req Phys: BERNABE PRIETO Pat Loc: CWM/NO/MED REHAB/SPINE INJ (Re Img Loc: [facility]/BUILDING 1 Service: Unknown [facility] , (Case [id number] COMPLETE) FLUOROSCOPIC GUIDANCE FOR NEEDLE (RAD Detailed) CPT:89579 Proc Modifiers : LEFT Reason for Study: SI joint injection Clinical History: Report Status: Verified Date Reported: OCTOBER 02, 2023 Date Verified: OCTOBER 02, 2023 Letterpress Printing Machinist E-Sig:/ES/LOU VICTORIA JR Report: Study: Pain injection [...] Primary Interpreting Staff: LOU VICTORIA JR, Radiologist (Letterpress Printing Machinist) /LOU W[place] JR [facility] Encounter Notes: All associated encounter notes This section contains the clinical notes associated to the Encounter. Date/Time Encounter Note(s) Provider Source Oct 21, 2023 08:49 AM ADMINISTRATIVE NOTE: LOCAL TITLE: CCC: SCHEDULING ADMINISTRATION STANDARD TITLE: ADMINISTRATIVE NOTE DATE OF NOTE: OCT 21, 2023@08:49:34 ENTRY DATE: OCT 21, 2023@08:49:34 AUTHOR: MATEO AUSTIN COSIGNER: URGENCY: STATUS: COMPLETED Patient Demographics Patient Name: SHAQ GREGORIO Patient Primary Phone: [phone] Patient Primary Address: [address] [place] [address] Patient : 1950 Patient Age: 73 Call Back Number: Caller/Recipient Relation to Patient: Self Administrative Administrative Note Reason: Medication Renewal [place] Medications Refill/Renewal Request: MEDICATION RENEWAL Medication renewal method: Phone Medication renewal requester: Patient The name(s) of the medication(s) is/are: OXYCODONE HCL 5MG/APAP 325MG TAB Patient requesting medication for MAIL ORDER /es/ LANDEN AUSTIN Signed: 10/21/2023 08:49 Receipt Acknowledged By: 10/22/2023 14:00 /es/ MILI DEAN RN REGISTERED NURSE 10/26/2023 12:32 /es/ NEHEMIAH CUEVAS MD PHYSICIAN MATEO AUSTIN [facility]
--- OUTSIDE RECORDS SUMMARY | 2024-04-28 10:50 | XMS_ITS | Encounter Summary ---
Author Name [facility] [place] Address [address] [place] [address] Care Team Providers Care Carburizer Name Role Phone NEHEMIAH CUEVAS Primary Care [...] Name Patient's Relationship to Policy Orellana ANA [facility] Aug 11, 2014 [id number] [phone] DHAVAL SHAQ Wagner PATIENT [facility] SUPPLEMEN ARTEMIO [facility] Aug 11, 2014 [id number] [phone] DHAVAL SHAQ Wagner [facility] SUPPLEMEN ARTEMIO MEDEX 2 Aug 11, 2014 [id number] DHAVAL SHAQ Wagner [facility] SUPPLEMEN [place] MEDEX 2 Aug 11, 2014 [id number] DHAVAL SHAQ Wagner PAT[place] SUPPLEMEN [place]IO MEDEX 2 Aug 11, 2014 [id number] ARCHAMBEA SHAQ Wagner PATIENT [employer] [place] MEDICARE SUPPLEMEN [facility] [place] [facility] Aug 11, 2014 [id number] [phone] LAURIEEA SHAQ Wagner PATIENT HUMANA [facility] (WNR) MEDICARE ADVANTAGE HUMAN A INSUR [place] [facility] Jan 11, 2022 [id number] [phone] ARCHOCTAVIOEA SHAQ Wagner PATIENT USMANA [facility] (WNR) MEDICARE ADVANTAGE [facility] (WNR) Jan 11, 2022 [id number] [phone] ARCHAMBEA SHAQ Wagner PATIENT MEDICARE (WNR) MEDICARE (M) PART A Dec 11, 2014 PART A [id number] [phone] ARCHAMBEA U,SHAQ PATIENT MEDICARE (WNR) MEDICARE () PART A Aug 11, 2014 PART A [id number] ARCHAMBEA SHAQ Wagner PATIENT MEDICARE (WNR) MEDICARE () PART B Aug 11, 2014 PART B [id number] [phone] ARCHAMBEA U,SHAQ PATIENT MEDICARE (WNR) MEDICARE () PART A Aug 11, 2014 PART A [id number] ARCHAMBEA U,SHAQ PATIENT MEDICARE (WNR) MEDICARE () PART B Aug 11, 2014 PART B [id number] ARCHAMBEA Bernard,SHAQ PATIENT MEDICARE (WNR) MEDICARE () PART A Aug 11, 2014 PART A [id number] ARCHAMBEA U,SHAQ PATIENT MEDICARE (WNR) MEDICARE () PART B Aug 11, 2014 PART B [id number] ARCHAMBEA U,SHAQ PATIENT MEDICARE (WNR) MEDICARE () PART B Aug 11, 2014 PART B [id number] ARCHAMBEA SHAQ Wagner PATIENT [facility] (WNR) MEDICARE ADVANTAGE [facility] (WNR) May 13, 2020 [id number] ARCHAMBEA USHAQ PATIENT Selected Encounter This section includes the information on record at [place] for the Encounter. Date/Time Encounter Type Encounter Description Reason Pro vider Source October 11, 2023 08:08 AM Outpatient Encounter ADMIN PAT ACTIVTIES (KISHAN) IHE Encounter Template Text not used by MT Plan of Treatment: Future Appointments (+ 6 months) and Future Tests (+/- 45 days) The Plan of Treatment section includes future care activities for the patient from all [place] treatmentfaunc health caldwellities. This section includes future appointments and future orders which are active, pending or scheduled. Future Appointments This section includes appointments that were scheduled to occur 6 months from the date of the Encounter, up to a maximum of 20 appointments. The data comes from all [place] treatment facilities. Appointment Date/Time Appointment Type Appointme nt Facility Name Oct 23, 2023 08:30 AM AMBULATORY - MEDICINE [facility] Nov 19, 2023 08:30 AM AMBULATORY - MEDICINE [place] [facility] [place] [facility] Nov 28, 2023 07:30 AM AMBULATORY - [facility] Dec 23, 2023 07:30 AM AMBULATORY - MEDICINE [place] [facility] [place] [facility] Dec 23, 2023 03:15 PM AMBULATORY - MEDICINE [facility] Jan 28, 2024 08:00 AM AMBULATORY - MEDICINE [place] [facility] [place] [facility] Jan 30, 2024 07:30 AM AMBULATORY - MEDICINE [place] [facility] [place] [facility] Mar 06, 2024 08:45 AM AMBULATORY - MEDICINE [place] [facility] [place] [facility] Mar 11, 2024 08:30 AM AMBULATORY - MEDICINE [facility] Mar 16, 2024 08:30 AM AMBULATORY - MEDICINE [place] [facility] [place] [facility] Apr 07, 2024 10:00 AM AMBULATORY - MEDICINE [place] [facility] [place] [facility] Social History: Smoking Status (Most current) and Tobacco Use (All prior to encounter date) This section includes the most current, and the historical, smoking and tobacco- related health factors from the [place] facility where the Encounter took place. Current Smoking Status This section includes the most current smoking, or tobacco-related health factor, from the [place] facility where the Encounter took place. Date/Time Current Smoking Status Kristie gonzalez Jul 04, 2023 09:00 AM MT-TOBACCO QUIT 15 YRS OR MORE [facility] Tobacco Use History This section includes a history of the smoking, or tobacco-related health factors, that were collected on or before the date of the Encounter. The data comes from the [place] facility where the Encounter took place. Date/Time Smoking Status/Tobacco Use Comment F acility Jul 04, 2023 09:00 AM VA-TOBACCO QUIT 15 YRS OR MORE [place] [facility] [place] [facility] Mar 14, 2022 03:02 PM VA-TOBACCO FORMER USER [place] [facility] [facility] Mar 14, 2022 03:02 PM VA-TOBACCO QUIT 15 YRS OR MORE [place] [facility] [place] [facility] Feb 08, 2021 09:00 AM VA-TOBACCO FORMER USER [place] [facility] [place] [facility] Feb 08, 2021 09:00 AM VA-TOBACCO QUIT 15 YRS OR MORE [place] [facility] [place] [facility] October 09, 2019 01:12 PM VA-TOBACCO FORMER USER [facility] October 09, 2019 01:12 PM VA-TOBACCO QUIT 5 TO < 15 Y[facility] Advance Directives: All historical and current Section Date Range: From patient's date of to the date document was created. This section includes ALL of a patient's completed or amended [place] Advance and Rescinded Directives. The entries below indicate that a directive exists for the patient, but an actual copy is not included with this document. The data comes from all [place] facilities. Date Advance Directives Provider Source Feb 21, 2021 ADVANCE DIRECTIVE BEL ESCALANTE [facility] Radiology Reports: +/- 30 days of the [...] the Encounter. The data comes from all [place] treatment facilities. Date/Time Radiology Report Provider Source October 02, 2023 08:18 AM FLUOROSCOPIC NITIN NCE FOR NEEDLE PLACEMENT: SHAQ GREGORIO [id number] -1950 M Exm Date: OCTOBER 02, 2023@08:18 Req Phys: BERNABE PRIETO Pat Loc: CWM/NO/MED REHAB/SPINE INJ (Re Img Loc: [facility]/BUILDING 1 Service: Unknown [facility] , (Case [id number] COMPLETE) FLUOROSCOPIC GUIDANCE FOR NEEDLE (RAD Detailed) CPT:53228 Proc Modifiers : LEFT Reason for Study: SI joint injection Clinical History: Report Status: Verified Date Reported: OCTOBER 02, 2023 Date Verified: OCTOBER 02, 2023 Sql Data Analyst E-Sig:/ES/LOU VICTORIA JR Report: Study: Pain injection [...] Primary Interpreting Staff: LOU VICTORIA JR, Radiologist (Sql Data Analyst) /LOU [place] JR [facility] Encounter Notes: All associated encounter notes This section contains the clinical notes associated to the Encounter. Date/Time Encounter Note(s) Provider Source October 11, 2023 08:08 AM ADMINISTRATIVE NOTE: LOCAL TITLE: CCC: SCHEDULING ADMINISTRATION STANDARD TITLE: ADMINISTRATIVE NOTE DATE OF NOTE: OCTOBER 11, 2023@08:08:06 ENTRY DATE: OCTOBER 11, 2023@08:08:06 AUTHOR: SARAH SNEED EXP COSIGNER: URGENCY: STATUS: COMPLETED Patient Demographics Patient Name: SHAQ GREGORIO Patient Primary Phone: [phone] Patient Primary [address]: [address] [place] [address] Patient : 1950 Patient Age: 73 Caller/Recipient Relation to Patient: Self Administrative Administrative Note Reason: Medication Renewal [place] Medications Refill/Renewal Request: Rx # - Medication Name - Dosage - SIG - Number of Refills - Facility - Status [id number] - LOVASTATIN 20MG TAB - 1 TABLET - TAKE ONE TABLET BY MOUTH AT BEDTIME FOR CHOLESTEROL -- AVOID GRAPEFRUIT JUICE - 0 - READING - 631BY - [id number] - OMEPRAZOLE 20MG EC CAP - 2 CAPSULES - TAKE TWO CAPSULES BY MOUTH EVERY MORNING 30 MINUTES BEFORE BREAKFAST - 0 - READING - [id number] - LIDOCAINE 5% PATCH - 1 PATCH - APPLY 1 PATCH TOPICALLY ONCE DAILY FOR NERVE PAIN (LEAVE PATCH ON FOR 12 HOURS, THEN REMOVE PATCH) - 9 - EDIN - Mail /es/ SARAH MANCILLA 1 [facility] Signed: 10/11/2023 08:08 Receipt Acknowledged By: 10/11/2023 10:57 /es/ MILI DEAN RN REGISTERED NURSE 10/11/2023 08:49 /es/ NEHEMIAH CUEVAS MD PHYSICIAN [facility]
--- OUTSIDE RECORDS SUMMARY | 2024-04-28 10:50 | XMS_ITS | Encounter Summary ---
Author Name [facility] [place] Organization [facility] [place] Address [address] [place] [id number] Care Team Providers Care Major Gifts Director Name Role Phone NEHEMIAH CUEVAS Primary Care [...] Name Patient's Relationship to Policy Orellana ANA [facility] Aug 11, 2014 [id number] DHAVAL SHAQ Wagner PATIENT [facility]NA [facility] SUPPLEMEN [facility]IO [facility] Aug 11, 2014 [id number] DHAVAL SHAQ Wagner [facility] SUPPLEMEN ARTEMIO MEDEX 2 Aug 11, 2014 [id number] DHAVAL SHAQ Wagner PATIENT BCBS MD MEDICARE SUPPLEMEN ARTEMIO MEDEX 2 Aug 11, 2014 [id number] DHAVAL SHAQ Wagner PATIENT BCBS [place] MEDICARE SUPPLEMEN ARTEMIO MEDEX 2 Aug 11, 2014 [id number] [phone] [place] SHAQ Wagner PATIENT [facility] [place] MEDICARE SUPPLEMEN [facility] [place] [facility] Aug 11, 2014 [id number] [phone] SHAQ WONG PATIENT USMANA [facility] (WNR) MEDICARE ADVANTAGE HUMAN A INSUR [facility] Jan 11, 2022 [id number] [phone] ARCHOCTAVIOEA SHAQ Wagner PATIENT USMANA [facility] (WNR) MEDICARE ADVANTAGE [facility] (WNR) Jan 11, 2022 [id number] [phone] AR[place]AMBEA SHAQ Wagner PATIENT MEDICARE (WNR) MEDICARE () PART A Dec 11, 2014 PART A [id number] [place] SHAQ Wagner PATIENT MEDICARE (WNR) MEDICARE () PART A Aug 11, 2014 PART A [id number] [phone] [place] SHAQ Wagner PATIENT MEDICARE (WNR) MEDICARE () PART B Aug 11, 2014 PART B [id number] [place] SHAQ Wagner PATIENT MEDICARE (WNR) MEDICARE () PART B Aug 11, 2014 PART B [id number] [phone] [place] SHAQ Wagner PATIENT MEDICARE (WNR) MEDICARE () PART A Aug 11, 2014 PART A [id number] [place] SHAQ Wagner PATIENT MEDICARE (WNR) MEDICARE () PART B Aug 11, 2014 PART B [id number] [place] SHAQ Wagner PATIENT MEDICARE (WNR) MEDICARE () PART A Aug 11, 2014 PART A [id number] [place] SHAQ Wagner PATIENT MEDICARE (WNR) MEDICARE (M) PART B Aug 11, 2014 PART B [id number] [phone] AR[place] SHAQ Wagner [facility] (WNR) MEDICARE ADVANTAGE [facility] (WNR) May 13, 2020 [id number] [phone] AR[place]AMBEA SHAQ Wagner PATIENT Selected Encounter This section includes the information on record at [place] for the Encounter. Date/Time Encounter Type Encounter Description Reason Pro vider Source Jul 05, 2023 12:00 AM Outpatient Encounter COMMUNITY CARE CONSULT IHE Encounter Template Text not used by [place] Plan of Treatment: Future Appointments (+ 6 months) and Future Tests (+/- 45 days) The Plan of Treatment section includes future care activities for the patient from all [place] treatmentfacilities. This section includes future appointments and future orders which are active, pending or scheduled. Future Appointments This section includes appointments that were scheduled to occur 6 months from the date of the Encounter, up to a maximum of 20 appointments. The data comes from all [place] treatment facilities. Appointment Date/Time Appointment Type Appointme nt Facility Name Jul 17, 2023 11:00 AM AMBULATORY [facility] Aug 12, 2023 07:30 AM AMBULATORY [facility] Aug 30, 2023 08:45 AM AMBULATORY - MEDICINE [place] [facility] October 02, 2023 08:00 AM AMBULATORY [facility] October 08, 2023 11:00 AM [facility] October 09, 2023 08:30 AM AMBULATORY - MEDICINE [place] [facility] [place] Oct 23, 2023 08:30 AM [facility] Nov 19, 2023 08:30 AM AMBULATORY - MEDICINE [place] [facility] [place] Nov 28, 2023 07:30 AM AMBULATORY - [facility]ICIN [facility] Dec 23, 2023 07:30 AM AMBULATORY - MEDICINE [place] [facility] Dec 23, 2023 03:15 PM AMBULATORY - MEDICINE [facility] Lab Results: +/- 30 days of the encounter This section includes the Chemistry and Hematology Lab Results on record with [place] for the patient. Radiology Reports and Pathology Reports are provided separately, in subsequent sections. Lab Results This section contains the Chemistry/Hematology Results that were resulted 30 days before or 30 daysafter the date of the Encounter. Date/Time Source Result Type Result - Unit Interpretation Reference Range Comment Jun 27, 2023 07:32 AM [facility]ENTRAL VITAMIN D (25-OH) Specimen Type: SERUM No comment entered. Ordering Provider: NEHEMIAH DAVIES Report Released Date/Time: Nov 09, 2022 12:33 PM Reporting Lab: [address] [address] Performing Lab: [address] [address] VITAMIN D (25-OH) 48 ng/mL 20-50 Jun 27, 2023 07:32 AM CENTRAL BASIC METABOLIC PANEL (fasting) Specime n Type: SERUM No comment entered. Ordering Provider: NEHEMIAH DAVIES Report Released Date/Time: Nov 09, 2022 12:33 PM Reporting Lab: [address] [address] Performing Lab: [address] [address] UREA NITROGEN 18 mg/dL 7-25 GLUCOSE 96 mg/dL 65-100 SODIUM 141 mmol/L 135-145 POTASSIUM 4.8 mmol/L 3.5-5.0 CHLORIDE 106 mmol/L 100-110 CO2 28 meq/L 20-30 CREATININE, Serum 1.11 mg/dL 0.50-1.40 eGFR(CKD-EPI 2020) 70 mL/min >60 Jun 27, 2023 07:32 AM CENTRAL LIVER FUNCTION Specimen Type: SERUM No comment entered. Ordering Provider: NEHEMIAH DAVIES Report Released Date/Time: Nov 09, 2022 12:33 PM Reporting Lab: [address] [address] Performing Lab: [address] [address] PROTEIN,TOTAL 6.7 g/dL 6.0-8.3 ALBUMIN 4.1 g/dL 3.5-5.0 ALKALINE PHOSPHATASE 66 U/L 40-150 AST 14 U/L 5-34 ALT 21 U/L BILIRUBIN, TOTAL 0.4 mg/dL 0.2-1.2 Jun 27, 2023 07:32 AM CENTRAL LIPID PANEL FASTING Specimen Type: SERUM No comment entered. Ordering Provider: NEHEMIAH DAVIES Report Released Date/Time: Nov 09, 2022 12:33 PM Reporting Lab: [facility] [address] [address] Performing Lab: [facility] [address] [address] CHOLESTEROL 156 mg/dL TRIGLYCERIDE 83 mg/dL 0-150 LDL calculated 78 mg/dL 0-129 CHOL/HDL 2.6 HDL CHOLESTEROL 61 mg/dL H 40-60 Jun 27, 2023 07:32 AM CENTRAL VITAMIN B12 Specimen Type: SERUM No comment entered. Ordering Provider: NEHEMIAH DAVIES Report Released Date/Time: Nov 09, 2022 12:33 PM Reporting Lab: [address] [address] Performing Lab: [address] [address] VITAMIN B12 591 pg/mL 200-900 Jun 27, 2023 07:32 AM CENTRAL MAGNESIUM Specimen Type: SERUM No comment entered. Ordering Provider: NEHEMIAH DAVIES Report Released Date/Time: Nov 09, 2022 12:33 PM Reporting Lab: [facility] [address] [address] Performing Lab: [facility] [address] [address] MAGNESIUM 2.1 mg/dL 1.6-2.6 Jun 27, 2023 07:32 AM CENTRAL CBC AND DIFF (AUTO) Specimen Type: BLOOD No comment entered. Ordering Provider: NEHEMIAH DAVIES Report Released Date/Time: Nov 09, 2022 12:33 PM Reporting Lab: [facility] [address] [address] Performing Lab: [facility] [address] [address] WBC 8.96 10*3/uL 4.50-11.00 RBC 4.81 10*6/uL 4.23-5.66 HGB 14.0 g/dL 12.8-17 HCT 42.4 39.2-50.4 MCV 88.1 fL 82-99 MCHC 33.0 g/dL 30.8-35.1 PLT 312 10*3/uL 140-360 RDW-CV 12.3 12.0-16.0 [place], Abs 0.59 10*3/uL 0.30-1.10 MCH 29.1 pg 26.2-32.6 Neut % 65.4 43.7-75.8 Lymph % 21.4 14.0-42.3 [place] % 6.6 5.1-13.7 Eos % 4.4 0.4-6.8 Baso % 0.6 0.1-2.0 Neut, Abs 5.87 10*3/uL 2.20-7.60 Lymph, Abs 1.92 10*3/uL 1.00-3.20 Eos, Abs 0.39 10*3/uL 0.03-0.44 Baso, Abs 0.05 10*3/uL 0.01-0.13 Immature Gran % 1.6 H 0.0-0.7 Immature Gran, Abs 0.14 10*3/uL H 0.00-0.06 Social History: Smoking Status (Most current) and Tobacco Use (All prior to encounter date) This section includes the most current, and the historical, smoking and tobacco- related health factors from the [place] facility where the Encounter took place. Current Smoking Status This section includes the most current smoking, or tobacco-related health factor, from the [place] facility where the Encounter took place. Date/Time Current Smoking Status Comment Lor ity Jul 04, 2023 09:00 AM VA-TOBACCO FORMER USER [facility] Tobacco Use History This section includes a history of the smoking, or tobacco-related health factors, that were collected on or before the date of the Encounter. The data comes from the [place] facility where the Encounter took place. Date/Time Smoking Status/Tobacco Use Comment F [email or web address] Jul 04, 2023 09:00 AM ND-TOBACCO QUIT 15 YRS OR MORE [facility] Mar 14, 2022 03:02 PM VA-TOBACCO FORMER USER [facility] Mar 14, 2022 03:02 PM VA-TOBACCO QUIT 15 YRS OR MORE [facility] Feb 08, 2021 09:00 AM VA-TOBACCO FORMER USER [facility] [place] Feb 08, 2021 09:00 AM VA-TOBACCO QUIT 15 YRS OR MORE [facility] [place] October 09, 2019 01:12 PM VA-TOBACCO FORMER USER [facility] October 09, 2019 01:12 PM VA-TOBACCO QUIT 5 TO < 15 [facility] Advance Directives: All historical and current Section Date Range: From patient's date of to the date document was created. This section includes ALL of a patient's completed or amended [place] Advance and Rescinded Directives. The entries below indicate that a directive exists for the patient, but an actual copy is not included with this document. The data comes from all [place] facilities. Date Advance Directives Provider Source Feb 21, 2021 ADVANCE DIRECTIVE BEL ESCALANTE FORMERLY [facility], [facility]–1983 Radiology Reports: +/- 30 days of the [...] the Encounter. The data comes from all [place] treatment facilities. Date/Time Radiology Report Provider Source Jul 17, 2023 11:09 AM FLUOROSCOPIC NITIN NCE OF NEEDLE/SPINE: SHAQ GREGORIO [id number] -[id number] M Exm Date: JUL 17, 2023@11:09 Req Phys: BERNABE PRIETO Pat Loc: [facility]/NO/MED REHAB/SPINE INJ (Re Img Loc: [facility] 1 Service: Unknown (Case [id number] COMPLETE) FLUOROSCOPIC GUIDANCE OF NEEDLE/S(RAD Detailed) CPT:02127 Reason for Study: transforaminal epidural steroid injection Clinical History: Report Status: Verified Date Reported: JUL 17, 2023 Date Verified: JUL 17, 2023 Core Man E-Sig:/ES/LOU VICTORIA JR Report: Study: Pain injection [...] Primary Interpreting Staff: LOU VICTORIA JR, Radiologist (Core Man) /LOU WASHINGTON JR [facility] Encounter Notes: All associated encounter notes This section contains the clinical notes associated to the Encounter. Date/Time Encounter Note(s) Provider Source Jul 05, 2023 12:00 AM NONVA CONSULT: LOCAL TITLE: COMMUNITY CARE-CONSULT RESULT NOTE STANDARD TITLE: NONVA CONSULT DATE OF NOTE: JUL 05, 2023 ENTRY DATE: OCTOBER 03, 2023@11:03:10 AUTHOR: FRANK SWANSON EXP COSIGNER: URGENCY: STATUS: COMPLETED VistA Imaging - Scanned Document SCANNED DOCUMENT SIGNATURE NOT REQUIRED Electronically Filed: 10/03/2023 by: FRANK VELARDE [facility]
--- OUTSIDE RECORDS SUMMARY | 2024-04-28 10:50 | XMS_ITS | Encounter Summary ---
Author Name [facility] [place] [facility] [place] Address [address] [place] [address] Care Team Providers Care Geochemical Manager Name Role Phone NEHEMIAH CUEVAS Primary [...] Name Patient's Relationship to Policy Orellana ANA [facility] Aug 11, 2014 [id number] DHAVAL SHAQ Wagner PATIENT [facility] BCBS [facility] MEDICARE SUPPLEMEN ARTEMIO [facility] Aug 11, 2014 [id number] ALEJANDROOCTAVIORENATA SHAQ Wagner PATIENT [place] SUPPLEMEN ARTEMIO MEDEX 2 Aug 11, 2014 [id number] DHAVAL SHAQ Wagner [place] SUPP[place] ARTEMIO MEDEX 2 Aug 11, 2014 [id number] DHAVAL SHAQ Wagner [place] SUPPLEMEN ARTEMIO MEDEX 2 Aug 11, 2014 [id number] [phone] LAURIESHAQ CAST PATIENT [place] MEDICARE SUPPLEMEN [facility] [place] [place] [facility] Aug 11, 2014 [id number] SHAQ WONG PATIENT [employer] M[facility] (WNR) MEDICARE ADVANTAGE [facility] (WNR) Jan 11, 2022 [id number] [phone] ARCHOCTAVIOEA SHAQ Wagner PATIENT [employer]NA MCR (WNR) MEDICARE ADVANTAGE [facility] Jan 11, 2022 [id number] [phone] ARCHOCTAVIOEA SHAQ Wagner PATIENT MEDICARE (WNR) MEDICARE (M) PART A Dec 11, 2014 PART A [id number] [phone] ARCHOCTAVIOEA SHAQ Wagner PATIENT MEDICARE (WNR) MEDICARE (M) PART A Aug 11, 2014 PART A [id number] ARCHAMBEA Bernard,SHAQ PATIENT MEDICARE (WNR) MEDICARE (M) PART B Aug 11, 2014 PART B [id number] ARCHOCTAVIOEA SHAQ Wagner PATIENT MEDICARE (WNR) MEDICARE (M) PART A Aug 11, 2014 PART A [id number] ARCHAMBEA SHAQ Wagner PATIENT MEDICARE (WNR) MEDICARE (M) PART B Aug 11, 2014 PART B [id number] [phone] ARCHAMBEA Bernard,SHAQ PATIENT MEDICARE (WNR) MEDICARE (M) PART A Aug 11, 2014 PART A [id number] ARCHAMBEA SHAQ Wagner PATIENT MEDICARE (WNR) MEDICARE (M) PART B Aug 11, 2014 PART B [id number] [phone] ARCHAMBEA Bernard,SHAQ PATIENT MEDICARE (WNR) MEDICARE (M) PART B Aug 11, 2014 PART B [id number] ARCHOCTAVIOEA SHAQ Wagner [facility] (WNR) MEDICARE ADVANTAGE [facility] (WNR) May 13, 2020 [id number] [phone] ARCHOCTAVIOEA SHAQ Wagner PATIENT Selected Encounter This section includes the information on record at [place] for the Encounter. Date/Time Encounter Type Encounter Description Reason Provider Source Oct 23, 2023 08:30 AM OFFICE O/P EST MOD 30 MIN PODIATRY ICD-10-CM L60.0 Ingrowing nail RINA CESAR [facility] Encounter Template Text not used by [place] Assessments - Encounter Diagnoses This section includes the primary and secondary diagnoses documented for the Encounter. Date/Time Primary/Secondary Diagnosis Diagnosis Name Provider Source Oct 23, 2023 08:51 AM PRIMARY Ingrowing RINA Waters [place] Oct 23, 2023 08:51 AM SECONDARY Peripheral vascular disease, unspecified RINA CESAR [place] Plan of Treatment: Future Appointments (+ 6 months) and Future Tests (+/- 45 days) The Plan of Treatment section includes future care activities for the patient from [facility] [place] [facility]. This section includes future appointments and future orders which are active, pending or scheduled. Future Appointments This section includes appointments that were scheduled to occur 6 months from the date of the Encounter, up to a maximum of 20 appointments. The data comes from all [place] treatment facilities. Appointment Date/Time Appointment Type Appointme nt Facility Name Nov 19, 2023 08:30 AM AM[place]ULATORY [place]IC[place] [facility] [place] [facility] Nov 28, 2023 07:30 AM AMBULATORY - REHAB MEDICIN [facility] [place] [facility] Dec 23, 2023 07:30 AM AMBULATORY [place]IC[place] [facility] [place] [facility] Dec 23, 2023 03:15 PM AMBULATORY - MEDICINE [facility] Jan 28, 2024 08:00 AM AMBULATORY - [place]ICINE [place] [facility] [place] [facility] Jan 30, 2024 07:30 AM AMBULATORY [place]IC[place] [facility] [place] [facility] Mar 06, 2024 08:45 AM AMBULATORY [place]ICINE [place] [facility] [place] [facility] Mar 11, 2024 08:30 AM AMBULATORY - MEDICINE [facility] Mar 16, 2024 08:30 AM AMBULATORY [place]ICINE [place] [facility] [place] [facility] Apr 07, 2024 10:00 AM AMBULATORY [place]ICINE [place] [facility] [place] [facility] Apr 20, 2024 08:30 AM AMBULATORY - MEDICINE [facility] Social History: Smoking Status (Most current) and Tobacco Use (All prior to encounter date) This section includes the most current, and the historical, smoking and tobacco- related health factors from the [place] facility where the Encounter took place. Current Smoking Status This section includes the most current smoking, or tobacco-related health factor, from the [place] facility where the Encounter took place. Date/Time Current Smoking Status Comment Lor gonzalez Oct 31, 2018 11:38 AM VA-TOBACCO QUIT 15 YRS OR MORE [facility] Tobacco Use History This section includes a history of the smoking, or tobacco-related health factors, that were collected on or before the date of the Encounter. The data comes from the [place] facility where the Encounter took place. Date/Time Smoking Status/Tobacco Use Comment F acility Oct 31, 2018 11:38 AM VA-TOBACCO QUIT 15 YRS OR MORE [facility] Jul 12, 2017 08:51 AM QUIT TOBACCO USE > 7 YEARS AGO [facility] Mar 30, 2016 08:29 AM QUIT TOBACCO USE > 7 YEARS AGO [facility] Mar 04, 2015 10:57 AM QUIT TOBACCO USE > 7 YEARS AGO [facility] Advance Directives: All historical and current Section Date Range: From patient's date of to the date document was created. This section includes ALL of a patient's completed or amended [place] Advance and Rescinded Directives. The entries below indicate that a directive exists for the patient, but an actual copy is not included with this document. The data comes from all [facility]. Date Advance Directives Provider Source Feb 21, 2021 ADVANCE DIRECTIVE BEL ESCALANTE [facility] Radiology Reports: +/- 30 days of the [...] the Encounter. The data comes from all [place] treatment facilities. Date/Time Radiology Report Provider Source October 02, 2023 08:18 AM FLUOROSCOPIC NITIN NCE FOR NEEDLE PLACEMENT: SHAQ GREGORIO [id number] -[id number] M Exm Date: OCTOBER 02, 2023@08:18 Req Phys: BERNABE PRIETO THI Pat Loc: [facility]/NO/MED REHAB/SPINE INJ (Re Img Loc: [facility]/BUILDING 1 Service: Unknown [facility] , (Case [id number] COMPLETE) FLUOROSCOPIC GUIDANCE FOR NEEDLE (RAD Detailed) CPT:21041 Proc Modifiers : LEFT Reason for Study: SI joint injection Clinical History: Report Status: Verified Date Reported: OCTOBER 02, 2023 Date Verified: OCTOBER 02, 2023 Sandblast Carver E-Sig:/ES/LOU VICTORIA JR Report: Study: Pain injection [...] Primary Interpreting Staff: LOU VICTORIA JR, Radiologist (Sandblast Carver) /LOU WASHINGTON JR [facility] Encounter Notes: All associated encounter notes This section contains the clinical notes associated to the Encounter. Date/Time Encounter Note(s) Provider Source Oct 23, 2023 08:52 AM PODIATRY NOTE: LOCAL TITLE: PODIATRY PAVE FOOT EXAM STANDARD TITLE: PODIATRY NOTE DATE OF NOTE: OCT 23, 2023@08:52 ENTRY DATE: OCT 23, 2023@08:52:15 AUTHOR: RINA CESAR COSIGNER: URGENCY: STATUS: COMPLETED PAVE FOOT EXAM A foot risk level was completed. The following risk level was identified for this patient: +POD RISK SCORE+ *--LEVEL 3 - (HIGH RISK)* ANY of the following: Severe obstructive peripheral arterial disease Ulceration; OR history of ulceration, osteomyelitis, or amputation Charcot joint w/foot deformity Chronic kidney disease, stage 4 or higher (Decreased sensation, foot deformity, and minor foot infection may be present or absent) LEVEL 3 FOOT EDUCATION: 1. Advised patient that extra depth footwear with soft molded inserts and braces may be required. 2. Advised patient not to walk barefoot. Instructed the patient to pay close attention to the style and fit of shoes. 3. Explained the importance of daily foot checks. Explained that loss of sensation leads to callouses. Callouses break down, which result in ulcers that may lead to gangrene and amputation. 4. Stressed the importance of daily foot hygiene. Warm (not hot) bathing of the feet, complete drying and thorough inspection for changes in the condition of the skin constitute daily foot care. Demonstrated how to do a thorough foot check. 5. Emphasized the use of clean, non-restrictive socks/stockings and well fitting shoes. 6. Stressed the importance of immediate follow-up of any foot injuries or ulcers. Explained that he/she should be non-weight bearing whenever there are lesions on the foot, to prevent cellular damage. Level of Understanding: Good Patient/Family Response to Foot Care Teaching Patient walks barefoot: A few times per month Patient/caregiver able to clean feet at least once daily: Yes Patient/caregiver has difficulty examining feet: No /robe/ RINA CESAR DPM DRY CURER Signed: 10/23/2023 08:52 RINA CESAR [facility] Oct 23, 2023 07:23 AM PODIATRY NOTE: LOCAL TITLE: PODIATRY NOTE STANDARD TITLE: PODIATRY NOTE DATE OF NOTE: OCT 23, 2023@07:23 ENTRY DATE: OCT 23, 2023@07:23:31 AUTHOR: RINA CESAR EXP COSIGNER: URGENCY: STATUS: COMPLETED NOTE: HAS RECEIVED BOTH COVID VACCINE DOSES + BOOSTER AT [facility] LAST SEEN FOR TREATMENT: 05/22/2023 s: Pt. is a 73 yo alert [facility] MALE who is seen for CONTINUED podiatric examination & CARE for treatment of a presenting complaint of a painful ingrown toenail. Patient had BEEN RENDERING SELF CARE prior to initial visit. Patient has been referred by: DR. CUEVAS Location of symptoms are: NAILS 1-2-3-4-5 BILATERAL. Onset of symptoms has been several weeks due to this being a recurrent condition that has been exacerbating over the past few Weeks. Duration of symptoms is intermittently with periods of exacerbation and remission. Description of symptoms is of an ACHING NATURE Contributing factors are: shoes and increased activity. PMH: Active problems - Computerized Problem List is the source for the following: *NOTE: REVIEWED ABOVE, NOTING NON-CONTRIBUTORY TO THE CC *NOTE: PLEASE SEE PROBLEM LIST TEMPLATE FOR COMPLETE LIST NEEDED. Family History: Non-contributory Social History: N/A *NOTE: DENIES ANY RECENT CHANGES IN MEDS UPON QUESTIONING TODAY-SEE RECONCILIATION PERFORMED THIS DATE BELOW TOBACCO USE =NONE Allergies:CODEINE, NEURONTIN Previous Surgery/Hospitalization: N/A TO THE CC . HEIGHT:129 lb [58.51 kg] (09/07/2021 09:26) WEIGHT:68 in [172.7 cm] (02/21/2021 09:21) REVIEW OF SYSTEMS: DEFERRED BEING NON-CONTRIBUTORY TO THE CC & I HAVE REVIEWED THE PCP NOTES & PMH WELL. O: DERMATOLOGICAL: Exam reveals skin color, TEMP & text to be WNL. There is absence of hair noted. Nails are WNL BUT INCURVATED AND IN NEED OF ATTENTION AT THIS TIME. There ARE NO superficial-painful hyperkeratotic lesions noted at this time. There are no rashes, ulcers, indurations or nodules noted. VASCULAR: Exam reveals DP & PT pulses to be +2 equal & symmetrical bilateral. CFT is >3 sec x 10. There are no superficial varices noted and there is no edema noted. MUSCULOSKELETAL: Exam reveals muscle strength and tone to be equal & symmetricalbilaterally & WNL for an individual of this age and present physical- medical condition. There is pain free ROM at all joints distal to and including the ankle.THERE IS EVIDENCE OF PREVIOUS SURGERY (LEFT ANKLE FUSION) AND NOTED BILATERAL HAV DEFORMITIES-ASYMPTOMATIC AND CONTRACTED 2ND RT DIGIT. HAD HT SURGERY BUT EXPERIENCING ANKLE PAIN AND WILL BE SEEING HIS ORTHOPEDIC SURGEON FOR EVALUATION. NEUROLOGICAL: Exam reveals S/D, vibratory, light touch & proprioception sensations to be equal & symmetrical bilaterally & WNL for an individual of this age and present physical-medical status. Protective sensation utilizing a Conroy-Elaine lOg monofilament is 10/10 bilateral. *NOTE: *YEARLY COMPLETE PAVE EXAM PERFORMED TODAY - SEE BELOW. BIOMECHANICAL: Exam is deferred at this time due as BEING non-contributory to the cc . 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 All care rendered without complications & the patient is progressing well after podiatric care this date and will be scheduled for periodic podiatric care in an attempt to prevent future complications. Treatment by a non-professional could be extremely hazardous to the patient's wellbeing due to the underlying medical conditions. REturn to Clinic: 24WEEKS(03/11 @ 8:30AM) *DISCUSSED NEW PROTOCOLS AND CALLED MYA TODAY FOR RESCHEDULING I DISCUSSED THE FINDINGS & PLAN WITH PATIENT (UNCHANGED SINCE PREVIOUS VISIT) & PATIENT AGREES AND UNDERSTANDS PLAN Medication Reconciliation: PERFORMED TODAY - SEE BELOW. JLV Link Data on this list may not be complete. Please check JLV. Allergies/ADRs (Tool #5) FACILITY ALLERGY/ADR -------- [facility] NO KNOWN ALLERGIES [facility] CODEINE [facility] NEURONTIN Med Recon NoGlossary (Tool #1) INCLUDED IN THIS LIST: Alphabetical list of active outpatient prescriptions dispensed from this [place] (local) and dispensed from another [place] or [facility] facility (remote) as well as inpatient orders (local pending and active), local clinic medications, locally documented non-VA medications, and local prescriptions that have or been discontinued in the past 90 days. Non-VA Meds Last Documented On: Nov 20, 2018 NOTE The display of VA prescriptions dispensed from another [place] or [facility] facility (remote) is limited to active outpatient prescription entries matched to National Drug File at the originating site and may not include some items such as investigational drugs, compounds, etc. NOT INCLUDED IN THIS LIST: Medications self-entered by the patient into personal health records (i.e. [employer]) are NOT included in this list. Non-VA medications documented outside this [place], remote inpatient orders (regardless of status) and remote clinic medications are NOT included in this list. The patient and provider must always discuss medications the patient is taking, regardless of where the medication was dispensed or obtained. Non-VA ACETAMINOPHEN 500MG TAB TAKE TWO TABLETS BY MOUTH THREE TIMES DAILY NEEDED Medication prescribed by Non-VA provider. OUTPT APIXABAN 5MG TAB (Status = Active) TAKE ONE TABLET BY MOUTH EVERY 12 HOURS Rx# [id number] Last Released: 09/16/23 Qty/Days Supply: Rx Expiration Date: 06/20/24 Refills Remainin OUTPT DRONEDARONE 400MG TAB (Status = ) TAKE ONE TABLET BY MOUTH TWICE DAILY FOR PAROXYSMAL ATRIAL FIBRILLATION Rx# [id number] Last Released: 06/20/23 Qty/Days Supply: Rx Expiration Date: 09/16/23 Refills Remainin Indication: FOR PAROXYSMAL ATRIAL FIBRILLATION OUTPT DRONEDARONE 400MG TAB (Status = Active) TAKE ONE TABLET BY MOUTH TWICE DAILY Rx# [id number] Last Released: 09/19/23 Qty/Days Supply: Rx Expiration Date: 09/17/24 Refills Remainin OUTPT FLUTICASONE PROP 50MCG 120D NASAL INHL (Status = Active) INSTILL 1 SPRAY INTO EACH NOSTRIL AT BEDTIME Rx# [id number] Last Released: 11/12/22 Qty/Days Supply: 06/11 Rx Expiration Date: 11/09/23 Refills Remainin Indication: FOR NASAL IRRITATION/INFLAMMATION OUTPT LATANOPROST 0.005% OPH SOLN (Status = Discontinued) INSTILL 1 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 Rx# [id number] Last Released: 04/03/23 Qty/Days Supply: Rx Expiration Date: 09/05/23 Refills Remainin Indication: FOR WIDE-ANGLE GLAUCOMA OUTPT LATANOPROST 0.005% OPH SOLN (Status = Active) INSTILL 1 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 Rx# [id number] Last Released: Qt/Days Supply: Rx Expiration Date: 08/12/24 Refills Remainin Indication: FOR WIDE-ANGLE GLAUCOMA OUTPT LIDOCAINE 5% PATCH (Status = Discontinued) APPLY 1 PATCH TOPICALLY ONCE DAILY FOR NERVE PAIN (LEAVE PATCH ON FOR 12 HOURS, THEN REMOVE PATCH) Rx# [id number] Last Released: 06/08/23 Qty/Days Supply: Rx Expiration Date: 09/04/23 Refills Remainin Indication: FOR NERVE PAIN OUTPT LIDOCAINE 5% PATCH (Status = Active) APPLY 1 PATCH TOPICALLY ONCE DAILY FOR NERVE PAIN (LEAVE PATCH ON FOR 12 HOURS, THEN REMOVE PATCH) Rx# [id number] Last Released: 10/14/23 Qty/Days Supply: Rx Expiration Date: 10/11/24 Refills Remainin Indication: FOR NERVE PAIN OUTPT LOVASTATIN 20MG TAB (Status = Discontinued) TAKE ONE TABLET BY MOUTH AT BEDTIME FOR CHOLESTEROL -- AVOID GRAPEFRUIT JUICE Rx# [id number] Last Released: 07/13/23 Qty/Days Supply: Rx Expiration Date: 10/10/23 Refills Remainin OUTPT LOVASTATIN 20MG TAB (Status = Active) TAKE ONE TABLET BY MOUTH AT BEDTIME FOR CHOLESTEROL -- AVOID GRAPEFRUIT JUICE Rx# [id number] Last Released: 10/14/23 Qty/Days Supply: Rx Expiration Date: 10/11/24 Refills Remainin OUTPT METOPROLOL TARTRATE 25MG TAB (Status = ) TAKE ONE TABLET BY MOUTH TWICE DAILY FOR BLOOD PRESSURE/HEART Rx# [id number] Last Released: 06/22/23 Qty/Days Supply: 180 Rx Expiration Date: 09/16/23 Refills Remainin OUTPT METOPROLOL TARTRATE 25MG TAB (Status = Active) TAKE ONE-HALF TABLET BY MOUTH TWICE DAILY FOR BLOOD PRESSURE/HEART Rx# [id number] Last Released: 10/10/23 Qty/Days Supply: Rx Expiration Date: 10/08/24 Refills Remainin Indication: FOR HIGH BLOOD PRESSURE OUTPT NUTRITION SUPL ENSURE PLUS/VANILLA LIQ (Status = Active) DRINK 1 CAN BY MOUTH TWICE DAILY Rx# [id number] Last Released: 10/12/23 Qty/Days Supply: Rx Expiration Date: 04/29/24 Refills Remainin OUTPT OMEPRAZOLE 20MG EC CAP (Status = Discontinued) TAKE TWO CAPSULES BY MOUTH EVERY MORNING 30 MINUTES BEFORE BREAKFAST Rx# [id number] Last Released: 07/13/23 Qty/Days Supply: Rx Expiration Date: 09/22/23 Refills Remainin OUTPT OMEPRAZOLE 20MG EC CAP (Status = Active) TAKE TWO CAPSULES BY MOUTH EVERY MORNING 30 MINUTES BEFORE BREAKFAST Rx# [id number] Last Released: 10/14/23 Qty/Days Supply: Rx Expiration Date: 10/11/24 Refills Remainin OUTPT ONDANSETRON HCL 4MG TAB (Status = Active) TAKE ONE TABLET BY MOUTH ONCE DAILY NEEDED FOR VOMITING/NAUSEA Rx# [id number] Last Released: 04/01/23 Qty/Days Supply: Rx Expiration Date: 03/29/24 Refills Remainin OUTPT OXYCODONE HCL 5MG/APAP 325MG TAB (Status = ) TAKE 1 TABLET BY MOUTH THREE TIMES DAILY NEEDED FOR PAIN NEXT FILL 08/02/23 Rx# [id number] Last Released: 07/02/23 Qty/Days Supply: Rx Expiration Date: 07/30/23 Refills Remainin Indication: FOR PAIN OUTPT OXYCODONE HCL 5MG/APAP 325MG TAB (Status = Discontinued) TAKE 1 TABLET BY MOUTH THREE TIMES DAILY NEEDED FOR PAIN NEXT FILL 08/30/23 Rx# [id number] Last Released: 07/31/23 Qty/Days Supply: Rx Expiration Date: 08/28/23 Refills Remainin Indication: FOR PAIN OUTPT OXYCODONE HCL 5MG/APAP 325MG TAB (Status = Discontinued) TAKE 1 TABLET BY MOUTH THREE TIMES DAILY NEEDED FOR PAIN NEXT FILL 09/27/23 Rx# [id number] Last Released: 08/28/23 Qty/Days Supply: Rx Expiration Date: 09/26/23 Refills Remainin Indication: FOR PAIN OUTPT OXYCODONE HCL 5MG/APAP 325MG TAB (Status = Active) TAKE 1 TABLET BY MOUTH THREE TIMES DAILY NEEDED FOR PAIN NEXT FILL 10/25/23 Rx# [id number] Last Released: 09/25/23 Qty/Days Supply: Rx Expiration Date: 10/25/23 Refills Remainin Indication: FOR PAIN OUTPT ROPINIROLE HCL 0.25MG TAB (Status = Active) TAKE ONE TABLET BY MOUTH DAILY Rx# [id number] Last Released: 09/03/23 Qty/Days Supply: 90 Rx Expiration Date: 11/09/23 Refills Remainin SUPPLIES PAVE Foot Check: A complete foot check was completed at this encounter. VISUAL INSPECTION: Includes inspection for skin breaks, deformity, erythema, trauma, pallor on elevation, dependent rubor, nail deformities, extensive callus and pitting edema. Visual exam results: Normal Comment: NO GROSS ABNORMALITIES NOTED AT THIS TIME PEDAL PULSES: Includes palpation of dorsalis and posterior tibial pulses and signs/symptoms of vascular compromise like pain, pallor, parasthesia or paralysis. Absent: Comment: DP & PT PULSES ARE ABSENT NON-PALPABLE BILAT SENSORY CHECK: Includes 10 gram Monofilament (Conroy-Elaine) test of sensation. Intact (Greater than or equal to 80% of sites checked) Abnormal (Less than 80% of sites checked): Intact Comment: VIBRATORY & MONOFILAMENT ARE WNL BILAT HIGH-RISK: HIGH RISK INFORMATION PROVIDED: 1. Advised patient that extra depth footwear with soft molded inserts and braces may be required. 2. Advised patient not to walk barefoot. 3. Explained the importance of daily foot checks. 4. Stressed the importance of daily foot hygiene, including bathing, complete drying and thorough inspection for changes. The patient verbalized understanding and was offered a detailed handout on diabetic foot care. Patient is established patient of Podiatry and/or Vascular: Last scheduled appointment: MAY 22, 2023@08:00 ANDREW/SOLANGE/PODIATRY/ARSENIO Comment: 05/22/2023 /robe/ RINA CESAR DPM DRY CURER Signed: 10/23/2023 08:52 RINA CESAR
--- OUTSIDE RECORDS SUMMARY | 2024-04-28 10:51 | XMS_ITS | Encounter Summary ---
Author Name [facility] [place] [facility] [place] Organization [facility] [place] Address [address] [place] [address] Care Team Providers Care Gravity Meter Operator Name Role Phone NEHEMIAH CUEVAS Primary Care [...] [facility] Aug 11, 2014 [id number] DHAVAL SHAQ Wagner PATIENT ANA [facility] MEDICARE SUPPLEMEN ARTEMIO [facility] Aug 11, 2014 [id number] DHAVAL SHAQ [facility]PPLEMEN ARTEMIO MEDEX 2 Aug 11, 2014 [id number] DHAVAL SHAQ Wagner [facility] SUPPLEMEN ARTEMIO MEDEX 2 Aug 11, 2014 [id number] DHAVAL SHAQ Wagner PATIENT [place] SUPPLEMEN ARTEMIO MEDEX 2 Aug 11, 2014 [id number] [phone] ARCHAMBEA SHAQ Wagner PATIENT [place] MEDICARE SUPPLEMEN [facility] [place] [facility] Aug 11, 2014 [id number] LAURIEEA SHAQ Wagner PATIENT HUMANA [facility] (WNR) MEDICARE ADVANTAGE HUMAN A INSUR [facility] Jan 11, 2022 [id number] [phone] ARCHOCTAVIOEA SHAQ Wagner PATIENT USMANA [facility] (WNR) MEDICARE ADVANTAGE [facility] (WNR) Jan 11, 2022 [id number] [phone] ARCHAMBEA SHAQ Wagner PATIENT MEDICARE (WNR) MEDICARE (M) PART A Dec 11, 2014 PART A [id number] ARCHAMBEA U,SHAQ PATIENT MEDICARE (WNR) MEDICARE () PART A Aug 11, 2014 PART A [id number] ARCHAMBEA SHAQ Wagner PATIENT MEDICARE (WNR) MEDICARE () PART B Aug 11, 2014 PART B [id number] ARCHAMBEA U,SHAQ PATIENT MEDICARE (WNR) MEDICARE () PART A Aug 11, 2014 PART A [id number] ARCHAMBEA U,SHAQ PATIENT MEDICARE (WNR) MEDICARE () PART B Aug 11, 2014 PART B [id number] ARCHAMBEA Bernard,SHAQ PATIENT MEDICARE (WNR) MEDICARE () PART A Aug 11, 2014 PART A [id number] ARCHAMBEA U,SHAQ PATIENT MEDICARE (WNR) MEDICARE () PART B Aug 11, 2014 PART B [id number] ARCHAMBEA U,SHAQ PATIENT MEDICARE (WNR) MEDICARE () PART B Aug 11, 2014 PART B [id number] ARCHAMBEA SHAQ Wagner PATIENT [facility] (WNR) MEDICARE ADVANTAGE [facility] (WNR) May 13, 2020 [id number] ARCHAMBEA USHAQ PATIENT Selected Encounter This section includes the information on record at [place] for the Encounter. Date/Time Encounter Type Encounter Description Reason Pro vider Source Apr 29, 2023 10:43 AM Outpatient Encounter ADMIN PAT ACTIVTIES (MASNONCT) IHE Encounter Template Text not used by [place] Plan of Treatment: Future Appointments (+ 6 months) and Future Tests (+/- 45 days) The Plan of Treatment section includes future care activities for the patient from all [facility]. This section includes future appointments and future orders which are active, pending or scheduled. Future Appointments This section includes appointments that were scheduled to occur 6 months from the date of the Encounter, up to a maximum of 20 appointments. The data comes from all [place] treatment facilities. Appointment Date/Time Appointment Type Appointme nt Facility Name May 22, 2023 08:00 AM [facility]UL[facility] Jun 24, 2023 08:30 AM AMBULATORY - NONE [facility] [facility] Jul 04, 2023 09:00 AM AMBULATORY - MEDICINE [facility] Jul 05, 2023 08:45 AM AMBULATORY - MEDICINE [facility] [place] [facility] Jul 17, 2023 11:00 AM AMBULATORY - REHAB MEDICIN E [facility] [place] [facility] Aug 12, 2023 07:30 AM AMBULATORY - REHAB MEDICIN E [facility] [place] [facility] Aug 30, 2023 08:45 AM AMBULATORY - MEDICINE [facility] [place] [facility] October 02, 2023 08:00 AM AMBULATORY - REHAB MEDICIN E [facility] [place] [facility] October 08, 2023 11:00 AM AMBULATORY [facility] October 09, 2023 08:30 AM AMBULATORY - MEDICINE [place] [facility] [place] [facility] Oct 23, 2023 08:30 AM AMBULATORY - MEDICINE [facility] Lab Results: +/- 30 days of the encounter This section includes the Chemistry and Hematology Lab Results on record with PR for the patient. Radiology Reports and Pathology Reports are provided separately, in subsequent sections. Lab Results This section contains the Chemistry/Hematology Results that were resulted 30 days before or 30 daysafter the date of the Encounter. Date/Time Source Result Type Result - Unit Interpretation Reference Range Comment Apr 02, 2023 07:57 AM EDIN ETG SCREEN (wx) Specimen Type: URINE Comment: *ETG SCREEN(wx) Not Performed: Apr 03, 2023@04:38 by [id number] *[facility]CIALIST [employer] Reason: SEE R/VTX 23 1670 This test was developed and it's performance characteristics determined by [facility]. It has not been cleared or approved by the FDA. The laboratory is regulated under CLIA as qualified to perform high-complexity testing. This test is used for clinical purposes. It should not be regarded as investigational or for research. Cutoff: 150 ng/mL Ordering Provider: NEHEMIAH BURKS Report Released Date/Time: Apr 01, 2023 08:53 AM Reporting Lab[facility] [address] [address] Performing Lab: [facility] [address] [address] ETG SCREEN (wx) comment Apr 02, 2023 07:57 AM [place] ETHYL GLUCURONIDE CONFIRMATION (WROX) S pecimen Type: URINE Comment: *ETG SCREEN(wx) Not Performed: Apr 03, 2023@04:38 by [id number] *[employer] Reason: SEE R/VTX 23 1670 This test was developed and it's performance characteristics determined by [facility]. It has not been cleared or approved by the FDA. The laboratory is regulated under CLIA as qualified to perform high-complexity testing. This test is used for clinical purposes. It should not be regarded as investigational or for research. Cutoff: 150 ng/mL Ordering Provider: NEHEMIAH BURKS Report Released Date/Time: Apr 01, 2023 08:53 AM Reporting Lab: [facility] [address] [address] Performing Lab: [facility] [address] [address] Ethyl Sulfate None Detected ng/mL Negative, Cutoff = 100 ng/mL Ethyl Glucuronide Conf None Detected ng/mL Negative, Cutoff = 500 ng/ml Apr 02, 2023 07:57 AM [place] METHADONE SCREEN Specimen Type: URINE Comment: THIAGO test are qualitative, any L or H flags only indicate a [facility] alert was sent. Ordering Provider: NEHEMIAH BURKS Report Released Date/Time: Apr 01, 2023 08:53 AM Reporting Lab: [facility] [address] [address] Performing Lab: [facility] [address] [address] METHADONE SCREEN None detected(Negati ve) L Negative Apr 02, 2023 07:57 AM [place] AMPHETAMINES SCREEN PANEL Specimen Type : URINE Comment: Urine with Cr <5 is diluted or substituted. Cr between 5 and 20 is very dilute. Urine with SG of 1.001 or less is diluted or substituted. SG of 1.003 or less is very dilute. Urine with a pH <3 or >11 has been adulterated and is unsuitable for testing by our current method. Urine with pH between 3 and 4 OR 10 and 11 may have been adulterated. Ordering Provider: NEHEMIAH BURKS Report Released Date/Time: Apr 01, 2023 08:53 AM Reporting Lab: [address] [address] Performing Lab: [address] [address] AMPHETAMINES SCREEN NONE-DETECTED None-Detec siri, Cutoff = 1000 ng/mL PH, THIAGO 5.4 [pH] 4-10 CREATININE, THIAGO 186.37 mg/dL >20 SP.GRAVITY, THIAGO 1.019 1.00 3-1.02 0 Apr 02, 2023 07:57 AM [place] FENTANYL SCREEN PANEL Specimen Type: URINE Comment: Urine with Cr <5 is diluted or substituted. Cr between 5 and 20 is very dilute. Urine with SG of 1.001 or less is diluted or substituted. SG of 1.003 or less is very dilute. Urine with a pH <3 or >11 has been adulterated and is unsuitable for testing by our current method. Urine with pH between 3 and 4 OR 10 and 11 may have been adulterated. Ordering Provider: NEHEMIAH BURKS Report Released Date/Time: Apr 01, 2023 08:53 AM Reporting Lab: [address] [address] Performing Lab: [address] [address] FENTANYL SCREEN NONE-DETECTE D ng/mL Negative: Cutoff = 1.00 ng/mL PH, THIAGO 5.4 [pH] 4-10 CREATININE, THIAGO 189.68 mg/dL >20 SP.GRAVITY, THIAGO 1.019 1.00 3-1.02 0 Apr 02, 2023 07:57 AM [place] ALCOHOL, ETHYL URINE PANEL Specimen Typ e: URINE Comment: Urine with Cr <5 is diluted or substituted. Cr between 5 and 20 is very dilute. Urine with SG of 1.001 or less is diluted or substituted. SG of 1.003 or less is very dilute. Urine with a pH <3 or >11 has been adulterated and is unsuitable for testing by our current method. Urine with pH between 3 and 4 OR 10 and 11 may have been adulterated. Ordering Provider: NEHEMIAH BURKS Report Released Date/Time: Apr 01, 2023 08:53 AM Reporting Lab: [address] [address] Performing Lab: [address] [address] ALCOHOL, ETHYL URINE NONE-DETECTED mg/dL NONE-DETEC SIRI, cutoff = 10 mg/dL PH, THIAGO 5.4 [pH] 4-10 CREATININE, THIAGO 186.37 mg/dL >20 SP.GRAVITY, THIAGO 1.019 1.00 3-1.02 0 Apr 02, 2023 07:57 AM [place] BENZODIAZEPINES SCREEN PANEL Specimen T ype: URINE Comment: Urine with Cr <5 is diluted or substituted. Cr between 5 and 20 is very dilute. Urine with SG of 1.001 or less is diluted or substituted. SG of 1.003 or less is very dilute. Urine with a pH <3 or >11 has been adulterated and is unsuitable for testing by our current method. Urine with pH between 3 and 4 OR 10 and 11 may have been adulterated. Ordering Provider: NEHEMIAH BURKS Report Released Date/Time: Apr 01, 2023 08:53 AM Reporting Lab: [address] [address] Performing Lab: [address] [address] BENZODIAZEPINES SCREEN NONE-DETECTED None-Detec siri, Cutoff = 200 ng/mL PH, THIAGO 5.4 [pH] 4-10 CREATININE, THIAGO 186.37 mg/dL >20 SP.GRAVITY, THIAGO 1.019 1.00 3-1.02 0 Apr 02, 2023 07:57 AM [place] BUPRENORPHINE SCREEN PANEL Specimen Typ e: URINE Comment: Urine with Cr <5 is diluted or substituted. Cr between 5 and 20 is very dilute. Urine with SG of 1.001 or less is diluted or substituted. SG of 1.003 or less is very dilute. Urine with a pH <3 or >11 has been adulterated and is unsuitable for testing by our current method. Urine with pH between 3 and 4 OR 10 and 11 may have been adulterated. Ordering Provider: NEHEMIAH BURKS Report Released Date/Time: Apr 01, 2023 08:53 AM Reporting Lab: [address] [address] Performing Lab: [address] [address] BUPRENORPHINE (URINE) NONE-DETECTED None Detected, Cutoff = 10.0 ng/mL PH, THIAGO 5.4 [pH] 4-10 CREATININE, THIAGO 186.37 mg/dL >20 SP.GRAVITY, THIAGO 1.019 1.00 3-1.02 0 Apr 02, 2023 07:57 AM [place] CANNABINOIDS SCREEN PANEL Specimen Type : URINE Comment: Urine with Cr <5 is diluted or substituted. Cr between 5 and 20 is very dilute. Urine with SG of 1.001 or less is diluted or substituted. SG of 1.003 or less is very dilute. Urine with a pH <3 or >11 has been adulterated and is unsuitable for testing by our current method. Urine with pH between 3 and 4 OR 10 and 11 may have been adulterated. Ordering Provider: NEHEMIAH BURKS Report Released Date/Time: Apr 01, 2023 08:53 AM Reporting Lab: [address] [address] Performing Lab: [address] [address] CANNABINOIDS SCREEN POSITIVE HH None-Detec siri,Cutoff = 50 ng/mL PH, THIAGO 5.4 [pH] 4-10 CREATININE, THIAGO 186.37 mg/dL >20 SP.GRAVITY, THIAGO 1.019 1.00 3-1.02 0 Apr 02, 2023 07:57 AM [place] COCAINE SCREEN PANEL Specimen Type: URINE Comment: Urine with Cr <5 is diluted or substituted. Cr between 5 and 20 is very dilute. Urine with SG of 1.001 or less is diluted or substituted. SG of 1.003 or less is very dilute. Urine with a pH <3 or >11 has been adulterated and is unsuitable for testing by our current method. Urine with pH between 3 and 4 OR 10 and 11 may have been adulterated. Ordering Provider: NEHEMIAH BURKS Report Released Date/Time: Apr 01, 2023 08:53 AM Reporting Lab: [address] [address] Performing Lab: [address] [address] COCAINE SCREEN NONE-DETECTED N one-Detec siri,Cutoff = 300 ng/mL PH, THIAGO 5.4 [pH] 4-10 CREATININE, THIAGO 186.37 mg/dL >20 SP.GRAVITY, THIAGO 1.019 1.00 3-1.02 0 Apr 02, 2023 07:57 AM [place] OXYCODONE SCREEN PANEL Specimen Type: URINE Comment: Urine with Cr <5 is diluted or substituted. Cr between 5 and 20 is very dilute. Urine with SG of 1.001 or less is diluted or substituted. SG of 1.003 or less is very dilute. Urine with a pH <3 or >11 has been adulterated and is unsuitable for testing by our current method. Urine with pH between 3 and 4 OR 10 and 11 may have been adulterated. Ordering Provider: NEHEMIAH BURKS Report Released Date/Time: Apr 01, 2023 08:53 AM Reporting Lab: [address] [address] Performing Lab: [address] [address] OXYCODONE SCREEN POSITIVE HH None-Detec siri, Cutoff = 100 ng/mL PH, THIAGO 5.4 [pH] 4-10 CREATININE, THIAGO 186.37 mg/dL >20 SP.GRAVITY, THIAGO 1.019 1.00 3-1.02 0 Apr 02, 2023 07:57 AM [place] OPIATES SCREEN PANEL Specimen Type: URINE Comment: Urine with Cr <5 is diluted or substituted. Cr between 5 and 20 is very dilute. Urine with SG of 1.001 or less is diluted or substituted. SG of 1.003 or less is very dilute. Urine with a pH <3 or >11 has been adulterated and is unsuitable for testing by our current method. Urine with pH between 3 and 4 OR 10 and 11 may have been adulterated. Ordering Provider: NEHEMIAH BURKS Report Released Date/Time: Apr 01, 2023 08:53 AM Reporting Lab: [address] [address] Performing Lab: [address] [address] OPIATES SCREEN POSITIVE HH None- Detec siri, Cutoff = 300 ng/mL PH, THIAGO 5.4 [pH] 4-10 CREATININE, THIAGO 186.37 mg/dL >20 SP.GRAVITY, THIAGO 1.019 1.00 3-1.02 0 Social History: Smoking Status (Most current) and Tobacco Use (All prior to encounter date) This section includes the most current, and the historical, smoking and tobacco- related health factors from the PR facility where the Encounter took place. Current Smoking Status This section includes the most current smoking, or tobacco-related health factor, from the PR facility where the Encounter took place. Date/Time Current Smoking Status Comment Facil carlos Mar 14, 2022 03:02 PM VA-TOBACCO QUIT 15 YRS OR MORE [facility] Tobacco Use History This section includes a history of the smoking, or tobacco-related health factors, that were collected on or before the date of the Encounter. The data comes from the PR facility where the Encounter took place. Date/Time Smoking Status/Tobacco Use Comment F acility Mar 14, 2022 03:02 PM VA-TOBACCO QUIT 15 YRS OR MORE [facility] Feb 08, 2021 09:00 AM VA-TOBACCO FORMER USER [facility] Feb 08, 2021 09:00 AM VA-TOBACCO QUIT 15 YRS OR MORE [facility] [place] [facility] October 09, 2019 01:12 PM VA-TOBACCO FORMER USER [facility] [facility] October 09, 2019 01:12 PM VA-TOBACCO QUIT 5 TO < 15 [facility] Advance Directives: All historical and current Section Date Range: From patient's date of to the date document was created. This section includes ALL of a patient's completed or amended [place] Advance and Rescinded Directives. The entries below indicate that a directive exists for the patient, but an actual copy is not included with this document. The data comes from all PR facilities. Date Advance Directives Provider Source Feb 21, 2021 ADVANCE DIRECTIVE BEL ESCALANTE [facility] Encounter Notes: All associated encounter notes This section contains the clinical notes associated to the Encounter. Date/Time Encounter Note(s) Provider Source Apr 29, 2023 10:43 AM ADMINISTRATIVE NOTE: LOCAL TITLE: CCC: SCHEDULING ADMINISTRATION STANDARD TITLE: ADMINISTRATIVE NOTE DATE OF NOTE: APR 29, 2023@10:43 ENTRY DATE: APR 29, 2023@10:43:57 AUTHOR: CRISS FERNANDEZ EXP COSIGNER: URGENCY: STATUS: COMPLETED pt reported needed renewal for mail of NUTRITION SUPL ENSURE PLUS/VANILLA LIQ notified pact team /robe/ CRISS MANCILLA 1 [facility] AMSA Signed: 04/29/2023 10:46 Receipt Acknowledged By: 04/29/2023 12:22 /es/ NEHEMIAH CUEVAS MD PHYSICIAN 04/29/2023 10:51 /es/ JEREMY WICK RN REGISTERED NURSE CRISS FERNANDEZ [facility]
--- OUTSIDE RECORDS SUMMARY | 2024-04-28 10:51 | XMS_ITS | Encounter Summary ---
Author Name [facility] [place] Organization [place] Address [address] [place] [address] Care Team Providers Care Reimbursement Liaison Name Role Phone NEHEMIAH CUEVAS Primary Care [...] Member ID Insurance Provider's Telephone Number Policy Orellnaa's Name Patient's Relationship to Policy Orellana ANA [facility] Aug 11, 2014 [id number] [phone] DHAVAL SHAQ Wagner PATIENT ANA BCBS [facility] MEDICARE SUPPLEMEN [facility] Aug 11, 2014 [id number] [phone] DHAVAL SHAQ [facility] SUPPLEMEN ARTEMIO MEDEX 2 Aug 11, 2014 [id number] DHAVAL SHAQ Wagner [place] SUPP[place] ARTEMIO MEDEX 2 Aug 11, 2014 [id number] [phone] DHAVAL SHAQ Wagner [place] SUPPLEMEN ARTEMIO MEDEX 2 Aug 11, 2014 [id number] ARCHAMBEA SHAQ Wagner PATIENT [facility] [place] MEDICARE SUPPLEMEN [facility] [place] [facility] Aug 11, 2014 [id number] ARCHOCTAVIOEA SHAQ Wagner PATIENT USMANA [facility] (WNR) MEDICARE ADVANTAGE HUMAN A INSUR [place] [facility] Jan 11, 2022 [id number] ARCHAMBEA SHAQ Wagner PATIENT USMANA [facility] (WNR) MEDICARE ADVANTAGE [facility] (WNR) Jan 11, 2022 [id number] [phone] ARCHAMBEA USHAQ PATIENT MEDICARE (WNR) MEDICARE (M) PART A Dec 11, 2014 PART A [id number] ARCHAMBEA U,SHAQ PATIENT MEDICARE (WNR) MEDICARE () PART A Aug 11, 2014 PART A [id number] ARCHAMBEA U,SHAQ PATIENT MEDICARE (WNR) MEDICARE () PART B Aug 11, 2014 PART B [id number] ARCHAMBEA U,SHAQ PATIENT MEDICARE (WNR) MEDICARE () PART B Aug 11, 2014 PART B [id number] ARCHAMBEA SHAQ Wagner PATIENT MEDICARE (WNR) MEDICARE () PART A Aug 11, 2014 PART A [id number] ARCHAMBEA U,SHAQ PATIENT MEDICARE (WNR) MEDICARE () PART B Aug 11, 2014 PART B [id number] ARCHAMBEA U,SHAQ PATIENT MEDICARE (WNR) MEDICARE () PART A Aug 11, 2014 PART A [id number] ARCHAMBEA U,SHAQ PATIENT MEDICARE (WNR) MEDICARE (M) PART B Aug 11, 2014 PART B [id number] ARCHAMBEA SHAQ Wagner PATIENT [facility] (WNR) MEDICARE ADVANTAGE [facility] (WNR) May 13, 2020 [id number] ARCHAMBEA SHAQ Wagner PATIENT Selected Encounter This section includes the information on record at [place] for the Encounter. Date/Time Encounter Type Encounter Description Reason Pro vider Source May 07, 2023 01:03 PM Outpatient Encounter ADMIN PAT ACTIVTIES (KISHAN) IHE Encounter Template Text not used by [place] Plan of Treatment: Future Appointments (+ 6 months) and Future Tests (+/- 45 days) The Plan of Treatment section includes future care activities for the patient from all [place] [facility]. This section includes future appointments and future orders which are active, pending or scheduled. Future Appointments This section includes appointments that were scheduled to occur 6 months from the date of the Encounter, up to a maximum of 20 appointments. The data comes from all [place] treatment facilities. Appointment Date/Time Appointment Type Appointme nt Facility Name May 22, 2023 08:00 AM AMBULATORY - [facility]ICINE [facility] Jun 24, 2023 08:30 AM AMBULATORY - NONE [place] [facility] [place] [facility] Jul 04, 2023 09:00 AM AMBULATORY - MEDICINE [facility] Jul 05, 2023 08:45 AM AMBULATORY - MEDICINE [place] [facility] [place] [facility] Jul 17, 2023 11:00 AM AMBULATORY - REHAB MEDICIN E [facility] [place] [facility] Aug 12, 2023 07:30 AM AMBULATORY - REHAB MEDICIN E [facility] [place] [facility] Aug 30, 2023 08:45 AM AMBULATORY - MEDICINE [place] [facility] [place] [facility] October 02, 2023 08:00 AM AMBULATORY - REHAB MEDICIN E [facility] [facility] October 08, 2023 11:00 AM [facility] October 09, 2023 08:30 AM AMBULATORY - MEDICINE [place] [facility] [place] [facility] Oct 23, 2023 08:30 AM [facility]ULAT[facility] Social History: Smoking Status (Most current) and Tobacco Use (All prior to encounter date) This section includes the most current, and the historical, smoking and tobacco- related health factors from the VA facility where the Encounter took place. Current Smoking Status This section includes the most current smoking, or tobacco-related health factor, from the [place] facility where the Encounter took place. Date/Time Current Smoking Status Kristie gonzalez Mar 14, 2022 03:02 PM VA-TOBACCO FORMER USER [facility] [place] [facility] Tobacco Use History This section includes a history of the smoking, or tobacco-related health factors, that were collected on or before the date of the Encounter. The data comes from the [place] facility where the Encounter took place. Date/Time Smoking Status/Tobacco Use Comment F acility Mar 14, 2022 03:02 PM VA-TOBACCO QUIT 15 YRS OR MORE [facility] Feb 08, 2021 09:00 AM [facility] Feb 08, 2021 09:00 AM VA-TOBACCO QUIT 15 YRS OR MORE [facility] October 09, 2019 01:12 PM VA-TOBACCO FORMER USER [facility] October 09, 2019 01:12 PM DE-TOBACCO QUIT 5 TO < 15 YRS [facility] Advance Directives: All historical and current Section Date Range: From patient's date of to the date document was created. This section includes ALL of a patient's completed or amended [place] Advance and Rescinded Directives. The entries below indicate that a directive exists for the patient, but an actual copy is not included with this document. The data comes from all [place] facilities. Date Advance Directives Provider Source Feb 21, 2021 ADVANCE DIRECTIVE BEL ESCALANTE [facility] Encounter Notes: All associated encounter notes This section contains the clinical notes associated to the Encounter. Date/Time Encounter Note(s) Provider Source May 07, 2023 01:03 PM ADMINISTRATIVE NOTE: LOCAL TITLE: CCC: SCHEDULING ADMINISTRATION STANDARD TITLE: ADMINISTRATIVE NOTE DATE OF NOTE: MAY 07, 2023@13:03:22 ENTRY DATE: MAY 07, 2023@13:03:22 AUTHOR: INOCENCIA NYE COSIGNER: URGENCY: STATUS: COMPLETED Patient Demographics Patient Name: SHAQ GREGORIO Patient Primary Phone: [phone] Patient Primary [address]: [address] [id number] Patient : 1950 Patient Age: 72 Caller/Recipient Relation to Patient: Self Administrative Administrative Note Reason: Medication Renewal Medications Refill/Renewal Request: Rx #[id number] - OXYCODONE HCL 5MG/APAP 325MG TAB Administrative Note Comments: Please renew and mail to patient. /es/ INOCENCIA NYE Signed: 05/07/2023 13:03 Receipt Acknowledged By: 05/14/2023 11:15 /es/ ANGEL SANCHEZN RN-BC REGISTERED NURSE for JEREMY WICK 05/07/2023 13:17 /es/ VENKATA GONZALEZ PA-C STAFF PHYSICIAN HOME ASSESSMENT NURSE for INOCENCIA BHATTI [facility]
--- OUTSIDE RECORDS SUMMARY | 2024-04-28 10:51 | XMS_ITS | Encounter Summary ---
Author Name [facility] [place] Organization [place] Address [address] [place] [id number] Care Team Providers Care Electrical Worker Name Role Phone NEHEMIAH CUEVAS Primary Care [...] Patient's Relationship to Policy Orellana ANA [facility] Aug 11, 2014 [id number] [phone] DHAVAL WagnerSHAQ PATIENT ANA [facility] MEDICARE SUPPLEMEN [facility] Aug 11, 2014 [id number] DHAVAL SHAQ Wagner PATIENT [facility] MEDICARE SUPPLEMEN [facility]EMIO MEDEX 2 Aug 11, 2014 [id number] [phone] DHAVAL SHAQ Wagner PATIENT [facility] MEDICARE SUPPLEMEN [facility] MEDEX 2 Aug 11, 2014 [id number] DHAVAL SHAQ Wagner PATIENT [place] SUPPLEMEN [facility] MEDEX 2 Aug 11, 2014 [id number] [phone] ARCHOCTAVIOEA SHAQ Wagner [place] MEDICARE SUPPLEMEN [facility] [place] [place] [facility] Aug 11, 2014 [id number] [phone] SHAQ WONG PATIENT USMANA [facility] (WNR) MEDICARE ADVANTAGE [facility] (WNR) Jan 11, 2022 [id number] [phone] ARCHAMBEA SHAQ Wagner PATIENT USMANA [facility] (WNR) MEDICARE ADVANTAGE HUMAN A INSUR ANCE COM Jan 11, 2022 [id number] [phone] ARCHAMBEA SHAQ Wagner PATIENT MEDICARE (WNR) MEDICARE (M) PART A Dec 11, 2014 PART A [id number] ARCHAMBEA SHAQ Wagner PATIENT MEDICARE (WNR) MEDICARE (M) PART A Aug 11, 2014 PART A [id number] [phone] ARCHAMBEA SHAQ Wagner PATIENT MEDICARE (WNR) MEDICARE () PART B Aug 11, 2014 PART B [id number] [phone] ARCHAMBEA SHAQ Wagner PATIENT MEDICARE (WNR) MEDICARE () PART A Aug 11, 2014 PART A [id number] ARCHAMBEA Bernard,SHAQ PATIENT MEDICARE (WNR) MEDICARE () PART B Aug 11, 2014 PART B [id number] [phone] ARCHAMBEA U,SHAQ PATIENT MEDICARE (WNR) MEDICARE (M) PART A Aug 11, 2014 PART A [id number] ARCHAMBEA Bernard,SHAQ PATIENT MEDICARE (WNR) MEDICARE (M) PART B Aug 11, 2014 PART B [id number] ARCHAMBEA U,SHAQ PATIENT MEDICARE (WNR) MEDICARE (M) PART B Aug 11, 2014 PART B [id number] [phone] ARCHAMBEA SHAQ Wagner [facility] (WNR) MEDICARE ADVANTAGE [facility] (WNR) May 13, 2020 [id number] ARCHAMBEA SHAQ Wagner PATIENT Selected Encounter This section includes the information on record at [place] for the Encounter. Date/Time Encounter Type Encounter Description Reason Pro vider Source Apr 29, 2023 10:52 AM Outpatient Encounter PRIMARY CARE/MEDICINE IHE Encounter Template Text not used by [place] Plan of Treatment: Future Appointments (+ 6 months) and Future Tests (+/- 45 days) The Plan of Treatment section includes future care activities for the patient from all [place] treatmentfacilities. This section includes future appointments and future orders which are active, pending or scheduled. Future Appointments This section includes appointments that were scheduled to occur 6 months from the date of the Encounter, up to a maximum of 20 appointments. The data comes from all [place] treatment facilities. Appointment Date/Time Appointment Type Appointme nt Facility Name May 22, 2023 08:00 AM AMBULATORY - MEDICINE [facility] Jun 24, 2023 08:30 AM AMBULATORY - NONE [facility] [place] [facility] Jul 04, 2023 09:00 AM [facility] Jul 05, 2023 08:45 AM AMBULATORY - MEDICINE [place] [facility] [facility] Jul 17, 2023 11:00 AM AMBULATORY - REHAB MEDICIN [facility] [place] [facility] Aug 12, 2023 07:30 AM AMBULATORY - REHAB MEDICIN E [facility] [place] [facility] Aug 30, 2023 08:45 AM AMBULATORY - MEDICINE [place] [facility] [facility] October 02, 2023 08:00 AM AMBULATORY - REHAB MEDICIN E [facility] [place] [facility] October 08, 2023 11:00 AM AM[facility]ULATORY [facility] October 09, 2023 08:30 AM AMBULATORY - MEDICINE [place] [facility] [facility] Oct 23, 2023 08:30 AM AMBULATORY - MEDICINE [facility] Lab Results: +/- 30 days of the encounter This section includes the Chemistry and Hematology Lab Results on record with [place] for the patient. Radiology Reports and Pathology Reports are provided separately, in subsequent sections. Lab Results This section contains the Chemistry/Hematology Results that were resulted 30 days before or 30 daysafter the date of the Encounter. Date/Time Source Result Type Result - Unit Interpretation Reference Range Comment Apr 02, 2023 07:57 AM [facility] ETG SCREEN (wx) Specimen Type: URINE Comment: *ETG SCREEN(wx) Not Performed: Apr 03, 2023@04:38 by [id number] *SPECIAL DELIVERY MESSENGER Reason: SEE R/VTX 23 1670 This test was developed and it's performance characteristics determined by [facility]. It has not been cleared or approved by the FDA. The laboratory is regulated under CLIA as qualified to perform high-complexity testing. This test is used for clinical purposes. It should not be regarded as investigational or for research. Cutoff: 150 ng/mL Ordering Provider: NEHEMIAH BURKS Report Released Date/Time: Apr 01, 2023 08:53 AM Reporting Lab: [facility] [address] [address] Performing Lab: [facility] [address] [address] ETG SCREEN (wx) comment Apr 02, 2023 07:57 AM [facility] ETHYL GLUCURONIDE CONFIRMATION (WROX) S pecimen Type: URINE Comment: *ETG SCREEN(wx) Not Performed: Apr 03, 2023@04:38 by [id number] *SPECIAL DELIVERY MESSENGER Reason: SEE R/VTX 23 1670 This test was developed and it's performance characteristics determined by [facility]. It has not been cleared or approved by the FDA. The laboratory is regulated under CLIA as qualified to perform high-complexity testing. This test is used for clinical purposes. It should not be regarded as investigational or for research. Cutoff: 150 ng/mL Ordering Provider: NEHEMIAH BURKS Report Released Date/Time: Apr 01, 2023 08:53 AM Reporting Lab[facility] [address] [address] Performing Lab: [facility] [address] [address] Ethyl Sulfate None Detected ng/mL Negative, Cutoff = 100 ng/mL Ethyl Glucuronide Conf None Detected ng/mL Negative, Cutoff = 500 ng/ml Apr 02, 2023 07:57 AM [facility] METHADONE SCREEN Specimen Type: URINE Comment: THIAGO test are qualitative, any L or H flags only indicate a VA alert was sent. Ordering Provider: NEHEMIAH BURKS Report Released Date/Time: Apr 01, 2023 08:53 AM Reporting Lab: [facility] [address] [address] Performing Lab: [facility] [address] [address] METHADONE SCREEN None detected(Negati ve) L Negative Apr 02, 2023 07:57 AM [facility] ALCOHOL, ETHYL URINE PANEL Specimen Typ e: [...] Apr 01, 2023 08:53 AM Reporting Lab: [address] [address] Performing Lab: [address] [address] ALCOHOL, ETHYL URINE NONE-DETECTED mg/dL NONE-DETEC SIRI, cutoff = 10 mg/dL PH, THIAGO 5.4 [pH] 4-10 CREATININE, THIAGO 186.37 mg/dL >20 SP.GRAVITY, THIAGO 1.019 1.00 3-1.02 0 Apr 02, 2023 07:57 AM [facility] AMPHETAMINES SCREEN PANEL Specimen Type : URINE [...] Apr 01, 2023 08:53 AM Reporting Lab: [facility] [address] [address] Performing Lab: [address] [address] AMPHETAMINES SCREEN NONE-DETECTED None-Detec siri, Cutoff = 1000 ng/mL PH, THIAGO 5.4 [pH] 4-10 CREATININE, THIAGO 186.37 mg/dL >20 SP.GRAVITY, THIAGO 1.019 1.00 3-1.02 0 Apr 02, 2023 07:57 AM [facility] BENZODIAZEPINES SCREEN PANEL Specimen T ype: URINE [...] Apr 01, 2023 08:53 AM Reporting Lab: [address] [address] Performing Lab: [address] [address] BENZODIAZEPINES SCREEN NONE-DETECTED None-Detec siri, Cutoff = 200 ng/mL PH, THIAGO 5.4 [pH] 4-10 CREATININE, THIAGO 186.37 mg/dL >20 SP.GRAVITY, THIAGO 1.019 1.00 3-1.02 0 Apr 02, 2023 07:57 AM [facility] FENTANYL SCREEN PANEL Specimen Type: URINE Comment: [...] Apr 01, 2023 08:53 AM Reporting Lab: [address] [address] Performing Lab: [address] [address] FENTANYL SCREEN NONE-DETECTE D ng/mL Negative: Cutoff = 1.00 ng/mL PH, THIAGO 5.4 [pH] 4-10 CREATININE, THIAGO 189.68 mg/dL >20 SP.GRAVITY, THIAGO 1.019 1.00 3-1.02 0 Apr 02, 2023 07:57 AM [facility] BUPRENORPHINE SCREEN PANEL Specimen Typ e: URINE [...] Apr 01, 2023 08:53 AM Reporting Lab: [address] [address] Performing Lab: [address] [address] BUPRENORPHINE (URINE) NONE-DETECTED None Detected, Cutoff = 10.0 ng/mL PH, THIAGO 5.4 [pH] 4-10 CREATININE, THIAGO 186.37 mg/dL >20 SP.GRAVITY, THIAGO 1.019 1.00 3-1.02 0 Apr 02, 2023 07:57 AM [facility] OPIATES SCREEN PANEL Specimen Type: URINE Comment: [...] Apr 01, 2023 08:53 AM Reporting Lab: [address] [address] Performing Lab: [address] [address] OPIATES SCREEN POSITIVE HH None- Detec siri, Cutoff = 300 ng/mL PH, THIAGO 5.4 [pH] 4-10 CREATININE, THIAGO 186.37 mg/dL >20 SP.GRAVITY, THIAGO 1.019 1.00 3-1.02 0 Apr 02, 2023 07:57 AM [facility] COCAINE SCREEN PANEL Specimen Type: URINE Comment: [...] Apr 01, 2023 08:53 AM Reporting Lab: [address] [address] Performing Lab: [address] [address] COCAINE SCREEN NONE-DETECTED N one-Detec siri,Cutoff = 300 ng/mL PH, THIAGO 5.4 [pH] 4-10 CREATININE, THIAGO 186.37 mg/dL >20 SP.GRAVITY, THIAGO 1.019 1.00 3-1.02 0 Apr 02, 2023 07:57 AM [facility] CANNABINOIDS SCREEN PANEL Specimen Type : URINE [...] may have been adulterated. Ordering Provider: NEHEMIAH BUKRS Report Released Date/Time: Apr 01, 2023 08:53 AM Reporting Lab: [facility] [address] [address] Performing Lab: [address] [address] CANNABINOIDS SCREEN POSITIVE None-Detec siri,Cutoff = 50 ng/mL PH, THIAGO 5.4 [pH] 4-10 CREATININE, THIAGO 186.37 mg/dL >20 SP.GRAVITY, THIAGO 1.019 1.00 3-1.02 0 Apr 02, 2023 07:57 AM [facility] OXYCODONE SCREEN PANEL Specimen Type: URINE Comment: [...] Apr 01, 2023 08:53 AM Reporting Lab: [address] [address] Performing Lab: [address] [address] OXYCODONE SCREEN POSITIVE HH None-Detec siri, Cutoff = 100 ng/mL PH, THIAGO 5.4 [pH] 4-10 CREATININE, THIAGO 186.37 mg/dL >20 SP.GRAVITY, THIAGO 1.019 1.00 3-1.02 0 Social History: Smoking Status (Most current) and Tobacco Use (All prior to encounter date) This section includes the most current, and the historical, smoking and tobacco- related health factors from the [place] facility where the Encounter took place. Current Smoking Status This section includes the most current smoking, or tobacco-related health factor, from the [place] facility where the Encounter took place. Date/Time Current Smoking Status Comment Facil carlos Mar 14, 2022 03:02 PM VA-TOBACCO FORMER USER [facility] Tobacco Use History This section includes a history of the smoking, or tobacco-related health factors, that were collected on or before the date of the Encounter. The data comes from the [place] facility where the Encounter took place. Date/Time Smoking Status/Tobacco Use Comment F acility Mar 14, 2022 03:02 PM VA-TOBACCO QUIT 15 YRS OR MORE [facility] [place] [facility] Feb 08, 2021 09:00 AM VA-TOBACCO FORMER USER [place] [facility] [place] [facility] Feb 08, 2021 09:00 AM VA-TOBACCO QUIT 15 YRS OR MORE [place] [facility] [place] [facility] October 09, 2019 01:12 PM VA-TOBACCO FORMER USER [place] [facility] [place] [facility] October 09, 2019 01:12 PM VA-TOBACCO QUIT 5 TO < 15 YRS [facility] Advance Directives: All historical and current Section Date Range: From patient's date of to the date document was created. This section includes ALL of a patient's completed or amended [place] Advance and Rescinded Directives. The entries below indicate that a directive exists for the patient, but an actual copy is not included with this document. The data comes from all [place] facilities. Date Advance Directives Provider Source Feb 21, 2021 ADVANCE DIRECTIVE BEL [facility] Encounter Notes: All associated encounter notes This section contains the clinical notes associated to the Encounter. Date/Time Encounter Note(s) Provider Source Apr 29, 2023 10:52 AM MEDICATION MGT NOT E: LOCAL TITLE: OUTPATIENT MEDICATION REQUEST STANDARD TITLE: MEDICATION MGT NOTE DATE OF NOTE: APR 29, 2023@10:52 ENTRY DATE: APR 29, 2023@10:52:10 AUTHOR: JEREMY WICK EXP COSIGNER: URGENCY: STATUS: COMPLETED Medication Request Date of Request: Apr Please renew and mail. NUTRITION SUPL ENSURE PLUS/VANILLA LIQ DRINK 1 CAN BY MOUTH TWICE DAILY Quantity: 48 Refills: 11 /robe/ JEREMY WICK RN REGISTERED NURSE Signed: 04/29/2023 10:52 Receipt Acknowledged By: 04/29/2023 10:54 /es/ NEHEMIAH CUEVAS MD PHYSICIAN JEREMY WICK
--- OUTSIDE RECORDS SUMMARY | 2024-04-28 10:51 | XMS_ITS ---
Author Name [facility] [place] Organization [place] Address [address] [place] [address] Care Team Providers Care Sample Wrapper Name Role Phone NEHEMIAH CUEVAS Primary Care [...] Name Patient's Relationship to Policy [facility] Aug 11, 2014 [id number] DHAVAL SHAQ Wagner PATIENT ANA BCBS [facility] MEDICARE SUPPLEMEN [facility] Aug 11, 2014 [id number] DHAVAL SHAQ Wagner [facility] SUPPLEMEN [facility] MEDEX 2 Aug 11, 2014 [id number] [phone] DHAVAL SHAQ Wagner PATIENT [place] MED[place] SUPPLEMEN [facility] MEDEX 2 Aug 11, 2014 [id number] ARCHAMBRENATA SHAQ Wagner [place] SUPPLEMEN [facility] MEDEX 2 Aug 11, 2014 [id number] ARCHAMBEA SHAQ Wagner PATIENT [place] MEDICARE SUPPLEMEN [facility] [place] [facility] [place] Aug 11, 2014 [id number] SHAQ WONG PATIENT USMANA [facility] (WNR) MEDICARE ADVANTAGE [facility] (WNR) Jan 11, 2022 [id number] [phone] ARCHAMBEA SHAQ Wagner PATIENT USMANA [facility] (WNR) MEDICARE ADVANTAGE HUMAN A INSUR ANCE [facility] Jan 11, 2022 [id number] [phone] ARCHAMBEA SHAQ Wagner PATIENT MEDICARE (WNR) MEDICARE () PART A Dec 11, 2014 PART A [id number] ARCHAMBEA U,SHAQ PATIENT MEDICARE (WNR) MEDICARE () PART B Aug 11, 2014 PART B [id number] ARCHAMBEA Brenard,SHAQ PATIENT MEDICARE (WNR) MEDICARE () PART A Aug 11, 2014 PART A [id number] ARCHAMBEA Bernard,SHAQ PATIENT MEDICARE (WNR) MEDICARE () PART B Aug 11, 2014 PART B [id number] ARCHAMBEA Bernard,SHAQ PATIENT MEDICARE (WNR) MEDICARE () PART A Aug 11, 2014 PART A [id number] ARCHAMBEA Bernard,SHAQ PATIENT MEDICARE (WNR) MEDICARE () PART B Aug 11, 2014 PART B [id number] [phone] ARCHAMBEA U,SHAQ PATIENT MEDICARE (WNR) MEDICARE () PART A Aug 11, 2014 PART A [id number] [phone] ARCHAMBEA U,SHAQ PATIENT MEDICARE (WNR) MEDICARE (M) PART B Aug 11, 2014 PART B [id number] [phone] ARCHAMBEA SHAQ Wagner [facility] (WNR) MEDICARE ADVANTAGE [facility] (WNR) May 13, 2020 [id number] [phone] ARCHAMBEA SHAQ Wagner PATIENT Selected Encounter This section includes the information on record at [place] for the Encounter. Date/Time Encounter Type Encounter Description Reason Pro vider Source May 22, 2023 08:00 AM Outpatient Encounter PRIMARY CARE/MEDICINE IHE Encounter Template Text not used by [place] Plan of Treatment: Future Appointments (+ 6 months) and Future Tests (+/- 45 days) The Plan of Treatment section includes future care activities for the patient from all [place] treatmentfacilities. This section includes future appointments and future orders which are active, pending or scheduled. Future Appointments This section includes appointments that were scheduled to occur 6 months from the date of the Encounter, up to a maximum of 20 appointments. The data comes from all [place] treatment facilities. Appointment Date/Time Appointment Type Appointme nt Facility Name Jun 24, 2023 08:30 AM AMBULATORY - NONE [facility] [place] [facility] Jul 04, 2023 09:00 AM AMBULATORY - MEDICINE [facility] Jul 05, 2023 08:45 AM AMBULATORY - MEDICINE [place] [facility] [place] [facility] Jul 17, 2023 11:00 AM AMBULATORY - REHAB MEDICIN E [facility] [place] [facility] Aug 12, 2023 07:30 AM AMBULATORY - REHAB MEDICIN E [facility] [place] [facility] Aug 30, 2023 08:45 AM AMBULATORY - MEDICINE [place] [facility] [place] [facility] October 02, 2023 08:00 AM AMBULATORY - REHAB MEDICIN E [facility] [place] [facility] October 08, 2023 11:00 AM AMBULATORY - MEDICINE [facility] October 09, 2023 08:30 AM AMBULATORY - MEDICINE [place] [facility] [place] [facility] Oct 23, 2023 08:30 AM AMBULATORY - MEDICINE [facility] Nov 19, 2023 08:30 AM AMBULATORY - MEDICINE [place] [facility] [place] [facility] Social History: Smoking Status (Most current) and Tobacco Use (All prior to encounter date) This section includes the most current, and the historical, smoking and tobacco- related health factors from the [place] facility where the Encounter took place. Current Smoking Status This section includes the most current smoking, or tobacco-related health factor, from the [place] facility where the Encounter took place. Date/Time Current Smoking Status Comment Lor gonzalez Mar 14, 2022 03:02 PM VA-TOBACCO FORMER USER [facility] [place] [facility] Tobacco Use History This section includes a history of the smoking, or tobacco-related health factors, that were collected on or before the date of the Encounter. The data comes from the [place] facility where the Encounter took place. Date/Time Smoking Status/Tobacco Use Comment F acility Mar 14, 2022 03:02 PM VA-TOBACCO QUIT 15 YRS OR MORE [facility] Feb 08, 2021 09:00 AM [facility] Feb 08, 2021 09:00 AM VA-TOBACCO QUIT 15 YRS OR [facility] October 09, 2019 01:12 PM VA-TOBACCO FORMER USER [facility] October 09, 2019 01:12 PM SD-TOBACCO QUIT 5 TO < 15 YRS [facility] Advance Directives: All historical and current Section Date Range: From patient's date of to the date document was created. This section includes ALL of a patient's completed or amended [place] Advance and Rescinded Directives. The entries below indicate that a directive exists for the patient, but an actual copy is not included with this document. The data comes from all [place] facilities. Date Advance Directives Provider Source Feb 21, 2021 ADVANCE DIRECTIVE BEL [facility] Encounter Notes: All associated encounter notes This section contains the clinical notes associated to the Encounter. Date/Time Encounter Note(s) Provider Source May 09, 2023 12:16 PM ACCOUNTING OF DISC LOSURES NOTE: LOCAL TITLE: STATE PRESCRIPTION DRUG MONITORING PROGRAM STANDARD TITLE: ACCOUNTING OF DISCLOSURES NOTE DATE OF NOTE: MAY 09, 2023@12:16:51 ENTRY DATE: MAY 09, 2023@12:16:51 AUTHOR: VENKATA BARDALES EXP COSIGNER: URGENCY: STATUS: COMPLETED This PDMP query was submitted by Venkata Bardales. The clinical justification for this PDMP query is to review controlled substances prescribed outside of the [facility], and any additional information that may become available, as an important component of standard clinical care, and in accordance with [facility] policy. Patient information was shared with the PDMP [place]. No prescription(s) for controlled substances outside the [facility] were found in the last 90 days. /robe/ VENKATA BARDALES PA-C STAFF PHYSICIAN SAMPLE WRAPPER Signed: 05/09/2023 12:17 VENKATA BARDALES
--- OUTSIDE RECORDS SUMMARY | 2024-04-28 10:53 | XMS_ITS ---
[place] N[place]ITION [place] SUBSEQ [place] Encounter Summary Created on: April 28, 2024 DARLINE SHAQ Bhakta : 1950 Sex: Male Author Name [facility] [place] [facility] [place] [facility] [place] Address [address] [place] [id number] Care Team Providers Care Skirt Trimmer Name Role Phone NEHEMIAH NOEL Primary Care Provide r Unavailable Insurance Providers: [...] Name Patient's Relationship to Policy Orellana ANA [facility] Aug 11, 2014 [id number] [phone] DHAVAL SHAQ Wagner PATIENT ANTHEM [place] SUPPLEMEN [facility]EMIO [facility] Aug 11, 2014 [id number] DHAVAL SHAQ Wagner PATIENT [place] SUPP[place] ARTEMIO MEDEX 2 Aug 11, 2014 [id number] DHAVAL SHAQ [place] [facility]EX 2 Aug 11, 2014 [id number] [phone] ARCHSTEPHANIA SHAQ [place] [facility] MEDEX 2 Aug 11, 2014 [id number] [phone] SHAQ WONG [place] MED[place] SUPPLEMEN [facility] [facility] [place] Aug 11, 2014 [id number] SHAQ WONG PATIENT USMANA [facility] (WNR) MEDICARE ADVANTAGE HUMAN A INSUR [facility] Jan 11, 2022 [id number] [phone] LAURIEEA SHAQ Wagner PATIENT USMANA MCR (WNR) MEDICARE ADVANTAGE [facility] (WNR) Jan 11, 2022 [id number] [phone] LAURIEEA SHAQ Wagner PATIENT MEDICARE (WNR) MEDICARE (M) PART A Dec 11, 2014 PART A [id number] ARCHAMBEA SHAQ Wagner PATIENT MEDICARE (WNR) MEDICARE (M) PART A Aug 11, 2014 PART A [id number] ARCHAMBEA SHAQ Wagner PATIENT MEDICARE (WNR) MEDICARE (M) PART B Aug 11, 2014 PART B [id number] ARCHAMBEA SHAQ Wagner PATIENT MEDICARE (WNR) MEDICARE (M) PART A Aug 11, 2014 PART A [id number] [phone] ARCHAMBEA SHAQ Wagner PATIENT MEDICARE (WNR) MEDICARE (M) PART B Aug 11, 2014 PART B [id number] [phone] ARCHAMBEA SHAQ Wagner PATIENT MEDICARE (WNR) MEDICARE (M) PART A Aug 11, 2014 PART A [id number] ARCHOCTAVIOEA SHAQ Wagner PATIENT MEDICARE (WNR) MEDICARE (M) PART B Aug 11, 2014 PART B [id number] ARCHAMBEA SHAQ Wagner PATIENT MEDICARE (WNR) MEDICARE (M) PART B Aug 11, 2014 PART B [id number] LAURIEEA SHAQ Wagner [facility] (WNR) MEDICARE ADVANTAGE [facility] (WNR) May 13, 2020 [id number] ARCHOCTAVIOEA SHAQ Wagner PATIENT Selected Encounter This section includes the information on record at [place] for the Encounter. Date/Time Encounter Type Encounter Description Reason Provider Source Jun 24, 2023 08:30 AM MED NUTRITION INDIV SUBSEQ NUTRITION/DIETETIC S-INDIVIDUAL ICD-10-CM R63.4 Abnormal weight loss VICTORIA PARR [facility] Encounter Template Text not used by [place] Assessments - Encounter Diagnoses This section includes the primary and secondary diagnoses documented for the Encounter. Date/Time Primary/Secondary Diagnosis Diagnosis Name Provider Source Jun 24, 2023 08:47 AM PRIMARY Abnormal weight loss VICTORIA PARR [place] Jun 24, 2023 08:47 AM SECONDARY Body mass index [BMI] 22.0-22.9, adult VICTORIA PARR [place] Jun 24, 2023 08:47 AM SECONDARY Dietary counseling and surveillance VICTORIA PARR [place] Plan of Treatment: Future Appointments (+ 6 months) and Future Tests (+/- 45 days) The Plan of Treatment section includes future care activities for the patient [facility] [place] [facility] This section includes future appointments and future orders which are active, pending or scheduled. Future Appointments This section includes appointments that were scheduled to occur 6 months from the date of the Encounter, up to a maximum of 20 appointments. The data comes from all [place] treatment facilities. Appointment Date/Time Appointment Type Appointme nt Facility Name Jul 04, 2023 09:00 AM AMBULATORY - MEDICINE [facility] Jul 05, 2023 08:45 AM AM[place] [facility] Jul 17, 2023 11:00 AM [facility] [place] Aug 12, 2023 07:30 AM [facility]BULAT[facility] Aug 30, 2023 08:45 AM [place] [facility] [place] [facility] October 02, 2023 08:00 AM AMBULATORY [facility] [place] [facility] [place] [facility] October 08, 2023 11:00 AM AMBULATORY - MEDICINE [facility] October 09, 2023 08:30 AM [place] [facility] [place] [facility] Oct 23, 2023 08:30 AM [facility] Nov 19, 2023 08:30 AM [place] [facility] [place] [facility] Nov 28, 2023 07:30 AM [facility] Dec 23, 2023 07:30 AM [facility] Dec 23, 2023 03:15 PM AMBULATORY - MEDICINE [facility] Lab Results: +/- 30 days of the encounter This section includes the Chemistry and Hematology Lab Results on record with [place] for the patient. Radiology Reports and Pathology Reports are provided separately, in subsequent sections. Lab Results This section contains the Chemistry/Hematology Results that were resulted 30 days before or 30 daysafter the date of the Encounter. Date/Time Source Result Type Result - Unit Interpretation Reference Range Comment Jun 27, 2023 07:32 AM [facility] LIPID PANEL FASTING Specimen Type: SERUM No comment entered. Ordering Provider: NEHEMIAH DAVIES Report Released Date/Time: Nov 09, 2022 12:33 PM Reporting Lab: [address] [address] Performing Lab: [facility] [address] [address] CHOLESTEROL 156 mg/dL TRIGLYCERIDE 83 mg/dL 0-150 LDL calculated 78 mg/dL 0-129 CHOL/HDL 2.6 HDL CHOLESTEROL 61 mg/dL H 40-60 Jun 27, 2023 07:32 AM [place] BASIC METABOLIC PANEL (fasting) Specime n Type: SERUM No comment entered. Ordering Provider: NEHEMIAH DAVIES Report Released Date/Time: Nov 09, 2022 12:33 PM Reporting Lab: [facility] [address] [address] Performing Lab: [address] [address] UREA NITROGEN 18 mg/dL 7-25 GLUCOSE 96 mg/dL 65-100 SODIUM 141 mmol/L 135-145 POTASSIUM 4.8 mmol/L 3.5-5.0 CHLORIDE 106 mmol/L 100-110 CO2 28 meq/L 20-30 CREATININE, Serum 1.11 mg/dL 0.50-1.40 eGFR(CKD-EPI 2020) 70 mL/min >60 Jun 27, 2023 07:32 AM [place] LIVER FUNCTION Specimen Type: SERUM No comment entered. Ordering Provider: NEHEMIAH DAVIES Report Released Date/Time: Nov 09, 2022 12:33 PM Reporting Lab: [facility] [address] [facility] [address] Performing Lab: [address] [address] PROTEIN,TOTAL 6.7 g/dL 6.0-8.3 ALBUMIN 4.1 g/dL 3.5-5.0 ALKALINE PHOSPHATASE 66 U/L 40-150 AST 14 U/L 5-34 ALT 21 U/L BILIRUBIN, TOTAL 0.4 mg/dL 0.2-1.2 Jun 27, 2023 07:32 AM [place] VITAMIN D (25-OH) Specimen Type: SERUM No comment entered. Ordering Provider: NEHEMIAH DAVIES Report Released Date/Time: Nov 09, 2022 12:33 PM Reporting Lab: [facility] [address] [address] Performing Lab: [address] [address] VITAMIN D (25-OH) 48 ng/mL 20-50 Jun 27, 2023 07:32 AM [place] VITAMIN B12 Specimen Type: SERUM No comment entered. Ordering Provider: NEHEMIAH DAVIES Report Released Date/Time: Nov 09, 2022 12:33 PM Reporting Lab: [address] [address] Performing Lab: [address] [address] VITAMIN B12 591 pg/mL 200-900 Jun 27, 2023 07:32 AM [place] MAGNESIUM Specimen Type: SERUM No comment entered. Ordering Provider: NEHEMIAH DAVIES Report Released Date/Time: Nov 09, 2022 12:33 PM Reporting Lab: [address] [address] Performing Lab: [facility] [address] [facility] [address] MAGNESIUM 2.1 mg/dL 1.6-2.6 Jun 27, 2023 07:32 AM [place] CBC AND DIFF (AUTO) Specimen Type: BLOOD No comment entered. Ordering Provider: NEHEMIAH DAVIES Report Released Date/Time: Nov 09, 2022 12:33 PM Reporting Lab: [facility] [address] [facility] [address] Performing Lab: [facility] [address] [facility] [address] WBC 8.96 10*3/uL 4.50-11.00 RBC 4.81 10*6/uL 4.23-5.66 HGB 14.0 g/dL 12.8-17 HCT 42.4 39.2-50.4 MCV 88.1 fL 82-99 MCHC 33.0 g/dL 30.8-35.1 PLT 312 10*3/uL 140-360 RDW-CV 12.3 12.0-16.0 [place], Abs 0.59 10*3/uL 0.30-1.10 MCH 29.1 pg 26.2-32.6 Neut % 65.4 43.7-75.8 Lymph % 21.4 14.0-42.3 [place] % 6.6 5.1-13.7 Eos % 4.4 0.4-6.8 [...] and tobacco- related health factors from the [place] facility where the Encounter took place. Current Smoking Status This section includes the most current smoking, or tobacco-related health factor, from the [place] facility where the Encounter took place. Date/Time Current Smoking Status Comment Lor ity Oct 31, 2018 11:38 AM VA-TOBACCO QUIT 15 YRS OR MORE [facility] Tobacco Use History This section includes a history of the smoking, or tobacco-related health factors, that were collected on or before the date of the Encounter. The data comes from the [place] facility where the Encounter took place. Date/Time Smoking Status/Tobacco Use Comment F acility Oct 31, 2018 11:38 AM VA-TOBACCO QUIT 15 YRS OR MORE [facility] Jul 12, 2017 08:51 AM QUIT TOBACCO USE > 7 YEARS AGO [place] Mar 30, 2016 08:29 AM QUIT TOBACCO USE > 7 YEARS AGO [place] Mar 04, 2015 10:57 AM QUIT TOBACCO USE > 7 YEARS AGO [place] Advance Directives: All historical and current Section Date Range: From patient's date of to the date document was created. This section includes ALL of a patient's completed or amended [place] Advance and Rescinded Directives. The entries below indicate that a directive exists for the patient, but an actual copy is not included with this document. The data comes from all [facility]. Date Advance Directives Provider Source Feb 21, 2021 ADVANCE DIRECTIVE BEL ESCALANTE [facility] Radiology Reports: +/- 30 days of the [...] the Encounter. The data comes from all [place] treatment facilities. Date/Time Radiology Report Provider Source Jul 17, 2023 11:09 AM FLUOROSCOPIC NITIN NCE OF NEEDLE/SPINE: SHAQ GREGORIO [id number] -1950 M Ex Date: JUL 17, 2023@11:09 Req Phys: BERNABE PRIETO THI Pat Loc: [facility]/NO/MED REHAB/SPINE INJ (Re Img Loc: [facility] 1 Service: Unknown (Case [id number] COMPLETE) FLUOROSCOPIC GUIDANCE OF NEEDLE/S(RAD Detailed) CPT:02524 Reason for Study: transforaminal epidural steroid injection Clinical History: Report Status: Verified Date Reported: JUL 17, 2023 Date Verified: JUL 17, 2023 Incubator Machine Operator E-Sig:/ES/LOU VICTORIA JR Report: Study: Pain injection [...] Primary Interpreting Staff: LOU VICTORIA JR, Radiologist (Incubator Machine Operator) /LOU WASHINGTON JR [facility] Encounter Notes: All associated encounter notes This section contains the clinical notes associated to the Encounter. Date/Time Encounter Note(s) Provider Source Jun 24, 2023 08:30 AM NUTRITION DIETETIC S NOTE: LOCAL TITLE: NUTRITION PROGRESS NOTE STANDARD TITLE: NUTRITION DIETETICS NOTE DATE OF NOTE: JUN 24, 2023@08:30 ENTRY DATE: JUN 24, 2023@08:41:51 AUTHOR: BRENDA PARR COSIGNER: URGENCY: STATUS: COMPLETED Reason for Nutrition referral: Primary Diagnosis: Dietary Surveillance and Counseling (Z71.3) Secondary Diagnosis: Abnormal Weight Loss (R63.4) Date of Nutrition Referral: 03/15/22 Referred to Nutrition Clinic By: Dr. Noel Date of Nutrition Visit: Jun 24, 2023 Visit #: 4 Time Spent with Patient: 40 minutes Patient identified using the following two forms of ID: Date of , Patient Full Name NUTRITION ASSESSMENT: Anthropometric Measurements: Ht:68 in [172.7 cm] (02/21/2021 09:21) Wt:145.8 lb [66.13 kg] (06/24/2023 08:27) Weight History: 138.9 lb 07/09/2022 134.1 lb 03/26/2022 Wt is up over past year BMI: 22.2 IBW: 154 lb Biochemical Data/Medical Tests: No updated labs Nutrition Focused Physical Findings: Appetite: Good Other issues/concerns: None Nutrition-Focused Physical Exam Reminder: A selection MUST be made in The Nutrition-Focused Physical Exam Summary section No significant physical signs of nutrient excesses or deficits Nutrition History: Food/Nutrition Related History: Met with who reports he has decreased ensure intake to 1 bottle per day. He is happy with his weight gain and feels like he is close to his goal weight. He reports good energy level and continues to walk regulary during the day. he Continues to eat 2-3 meals per day. Occassionally will skip lunch. In the past 3 months, did you ever run out of food and you were not able to access more food or have the money to buy more food? No Physical Activity: Walks daily NUTRITION DIAGNOSIS: Involuntary weight loss related to physiological causes increasing nutrient needs,(e.g., due to prolonged catabolic illness, trauma, malabsorption, infection) as evidenced by reported weight loss. [X] Resolved [ ] Improvement Shown [ ] Unresolved/No Improvement [ ] No Longer Appropriate NUTRITION INTERVENTION: NUTRITION EDUCATION provided on the following topic(s): Healthy Meal Planning, Healthy Weight Gain Strategies , Potential Benefits of Weight Gain, Oral medical nutritional supplement , Printed Nutrition educational materials provided during this encounter: None Food and/or Nutrient Delivery: Recommend Oral Nutritional Supplement as follows: Product:Ensure Plus Dosage:1 bottles per day Provides: 350 kcal / 13 gm protein Education Narrative: Discussed supplement use and small frequent meals. Barriers to Education: None Comprehension: Good Motivation: Good Goals: 1. Consume 1 bottles of ensure plus per day. 2. Consume small frequent meals/snacks every 2-3 hours NUTRITION COUNSELING: Strategies: Goal Setting, Self Monitoring, Problem Solving COORDINATION OF NUTRITION CARE: Follow-up with: PCP MONITORING/EVALUATION: 1. Follow-up visit: Jun 22, 2024 2. Monitor progress toward achievement of Nutrition Intervention Goals 3. Assess comprehension and motivation based on dietary changes made 4. Monitor progress toward achievement of Clinical Outcome Goals: Weight, Labs, Oral Intake CLINICAL OUTCOME GOALS: Indicator: Weight Criteria: Unintentional weight loss Goal: Stable weight by follow-up Progress: Wt is up. Continue goal. WHOLE HEALTH WHOLE HEALTH EDUCATION Whole Health Education was provided. /robe/ BRENDA PARR STAFF DIETITIAN Signed: 06/24/2023 08:53 BRENDA PARR [place] [facility]
--- OUTSIDE RECORDS SUMMARY | 2024-04-28 10:53 | XMS_ITS | Encounter Summary ---
Author Name [facility] [place] [facility] [place] [facility] [place] Address [address] [place] [id number] Care Team Providers Care Drill Sharpener Operator Name Role Phone NEHEMIAH CUEVAS Primary [...] Name Patient's Relationship to Policy Orellana ANA [facility] Aug 11, 2014 [id number] [phone] DHAVAL WagnerSHAQ [facility]IENT [facility] SUPPLEMEN ARTEMIO [facility] Aug 11, 2014 [id number] [phone] DHAVAL SHAQ [facility] ARTEMIO MEDEX 2 Aug 11, 2014 [id number] DHAVAL SHAQ [facility] SUPP[facility]MEN ARTEMIO MEDEX 2 Aug 11, 2014 [id number] DHAVAL WagnerSHAQ PATIENT [place] MEDIC[place] SUPPLEMEN ARTEMIO MEDEX 2 Aug 11, 2014 [id number] [phone] ARCHAMBEA SHAQ Wagner PATIENT [facility] MEDICARE SUPPLEMEN [facility] [place] [facility] Aug 11, 2014 [id number] [phone] SHAQ WONG PATIENT [facility] (WNR) MEDICARE ADVANTAGE HUMAN A INSUR [facility] Jan 11, 2022 [id number] [phone] ARCHOCTAVIOEA SHAQ Wagner PATIENT [employer] MCR (WNR) MEDICARE ADVANTAGE [facility] (WNR) Jan 11, 2022 [id number] [phone] ARCHAMBEA SHAQ Wagner PATIENT MEDICARE (WNR) MEDICARE (M) PART A Dec 11, 2014 PART A [id number] [phone] ARCHAMBEA SHAQ Wagner PATIENT MEDICARE (WNR) MEDICARE () PART A Aug 11, 2014 PART A [id number] ARCHAMBEA SHAQ Wagnre PATIENT MEDICARE (WNR) MEDICARE () PART B Aug 11, 2014 PART B [id number] ARCHAMBEA SHAQ Wagner PATIENT MEDICARE (WNR) MEDICARE () PART B Aug 11, 2014 PART B [id number] [phone] ARCHAMBEA SHAQ Wagner PATIENT MEDICARE (WNR) MEDICARE () PART A Aug 11, 2014 PART A [id number] ARCHAMBEA SHAQ Wagner PATIENT MEDICARE (WNR) MEDICARE () PART B Aug 11, 2014 PART B [id number] ARCHAMBEA SHAQ Wagner PATIENT MEDICARE (WNR) MEDICARE () PART A Aug 11, 2014 PART A [id number] ARCHAMBEA SHAQ Wagner PATIENT MEDICARE (WNR) MEDICARE (M) PART B Aug 11, 2014 PART B [id number] ARCHAMBEA SHAQ Wagner [facility] (WNR) MEDICARE ADVANTAGE [facility] (WNR) May 13, 2020 [id number] ARCHOCTAVIOEA SHAQ Wagner PATIENT Selected Encounter This section includes the information on record at [place] for the Encounter. 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 This section includes future appointments and future orders which are active, pending or scheduled. Future Appointments This section includes appointments that were scheduled to occur 6 months from the date of the Encounter, up to a maximum of 20 appointments. The data comes from all [place] treatment facilities. Appointment Date/Time Appointment Type Appointme nt Facility Name Jun 24, 2023 08:30 AM AMBULATORY - NONE [facility] [place] [facility] Jul 04, 2023 09:00 AM [facility] Jul 05, 2023 08:45 AM AMBULATORY - [place]ICINE [place] [facility] [place] [facility] Jul 17, 2023 11:00 AM AMBULATORY - REHAB MEDICIN E [facility] [place] [facility] Aug 12, 2023 07:30 AM AMBULATORY - REHAB MEDICIN E [facility] [place] [facility] Aug 30, 2023 08:45 AM AMBULATORY - MEDICINE [facility] [place] [facility] October 02, 2023 08:00 AM AMBULATORY - REHAB MEDICIN E [facility] [place] [facility] October 08, 2023 11:00 AM AMBULATORY - MEDICINE [facility] October 09, 2023 08:30 AM AMBULATORY - MEDICINE [place] [facility] [place] [facility] Oct 23, 2023 08:30 AM AMBULATORY - MEDICINE [facility] Nov 19, 2023 08:30 AM AMBULATORY [facility] MEDICINE [facility] Nov 28, 2023 07:30 AM AMBULAT[facility] Lab Results: +/- 30 days of the encounter This section includes the Chemistry and Hematology Lab Results on record with [place] for the patient. Radiology Reports and Pathology Reports are provided separately, in subsequent sections. Lab Results This section contains the Chemistry/Hematology Results that were resulted 30 days before or 30 daysafter the date of the Encounter. Date/Time Source Result Type Result - Unit Interpretation Reference Range Comment Jun 27, 2023 07:32 AM [place] VITAMIN D (25-OH) Specimen Type: SERUM No comment entered. Ordering Provider: NEHEMIAH DAVIES Report Released Date/Time: Nov 09, 2022 12:33 PM Reporting Lab: [address] [address] Performing Lab: [address] [address] VITAMIN D (25-OH) 48 ng/mL 20-50 Jun 27, 2023 07:32 AM [place] BASIC METABOLIC PANEL (fasting) Specime n Type: SERUM No comment entered. Ordering Provider: NEHEMIAH DAVIES Report Released Date/Time: Nov 09, 2022 12:33 PM Reporting Lab: [address] [address] Performing Lab: [address] [address] [place]A NITROGEN 18 mg/dL 7-25 GLUCOSE 96 mg/dL 65-100 SODIUM 141 mmol/L 135-145 POTASSIUM 4.8 mmol/L 3.5-5.0 CHLORIDE 106 mmol/L 100-110 CO2 28 meq/L 20-30 CREATININE, Serum 1.11 mg/dL 0.50-1.40 eGFR(CKD-EPI 2020) 70 mL/min >60 Jun 27, 2023 07:32 AM [place] LIVER FUNCTION Specimen Type: SERUM No comment entered. Ordering Provider: NEHEMIAH DAVIES Report Released Date/Time: Nov 09, 2022 12:33 PM Reporting [facility]: [facility] [address] [address] Performing Lab: [facility] [address] [address] PROTEIN,TOTAL 6.7 g/dL 6.0-8.3 ALBUMIN 4.1 g/dL 3.5-5.0 ALKALINE PHOSPHATASE 66 U/L 40-150 AST 14 U/L 5-34 ALT 21 U/L BILIRUBIN, TOTAL 0.4 mg/dL 0.2-1.2 Jun 27, 2023 07:32 AM [place] LIPID PANEL FASTING Specimen Type: SERUM No comment entered. Ordering Provider: NEHEMIAH DAVIES Report Released Date/Time: Nov 09, 2022 12:33 PM Reporting Lab: [address] [address] Performing Lab: [address] [address] CHOLESTEROL 156 mg/dL TRIGLYCERIDE 83 mg/dL 0-150 LDL calculated 78 mg/dL 0-129 CHOL/HDL 2.6 HDL CHOLESTEROL 61 mg/dL H 40-60 Jun 27, 2023 07:32 AM [place] VITAMIN B12 Specimen Type: SERUM No comment entered. Ordering Provider: NEHEMIAH DAVIES Report Released Date/Time: Nov 09, 2022 12:33 PM Reporting Lab: [address] [address] Performing Lab: [facility] [address] [address] VITAMIN B12 591 pg/mL 200-900 Jun 27, 2023 07:32 AM [place] MAGNESIUM Specimen Type: SERUM No comment entered. Ordering Provider: NEHEMIAH DAVIES Report Released Date/Time: Nov 09, 2022 12:33 PM Reporting Lab: [address] [address] Performing Lab: [facility] [address] [place] [address] MAGNESIUM 2.1 mg/dL 1.6-2.6 Jun 27, 2023 07:32 AM [place] CBC AND DIFF (AUTO) Specimen Type: BLOOD No comment entered. Ordering Provider: NEHEMIAH DAVIES Report Released Date/Time: Nov 09, 2022 12:33 PM Reporting Lab: [facility] [address] [facility] [address] Performing Lab: [facility] [address] [address] WBC 8.96 10*3/uL 4.50-11.00 RBC 4.81 10*6/uL 4.23-5.66 HGB 14.0 g/dL 12.8-17 HCT 42.4 39.2-50.4 MCV 88.1 fL 82-99 MCHC 33.0 g/dL 30.8-35.1 PLT 312 10*3/uL 140-360 RDW-CV 12.3 12.0-16.0 G[place]rie, Abs 0.59 10*3/uL 0.30-1.10 MCH 29.1 pg 26.2-32.6 Neut % 65.4 43.7-75.8 Lymph % 21.4 14.0-42.3 [place] % 6.6 5.1-13.7 Eos % 4.4 0.4-6.8 Baso % 0.6 0.1-2.0 Neut, Abs 5.87 10*3/uL 2.20-7.60 Lymph, Abs 1.92 10*3/uL 1.00-3.20 Eos, Abs 0.39 10*3/uL 0.03-0.44 Baso, Abs 0.05 10*3/uL 0.01-0.13 Immature Gran % 1.6 H 0.0-0.7 Immature Gran, Abs 0.14 10*3/uL H 0.00-0.06 Advance Directives: All historical and current Section Date Range: From patient's date of to the date document was created. This section includes ALL of a patient's completed or amended [place] Advance and Rescinded Directives. The entries below indicate that a directive exists for the patient, but an actual copy is not included with this document. The data comes from all [place] facilities. Date Advance Directives Provider Source Feb 21, 2021 ADVANCE DIRECTIVE BEL ESCALANTE MLKAVIN [facility] Radiology Reports: +/- 30 days of the [...] the Encounter. The data comes from all [place] treatment facilities. Date/Time Radiology Report Provider Source Jul 17, 2023 11:09 AM FLUOROSCOPIC NITIN NCE OF NEEDLE/SPINE: DARLINESHAQ Yony [id number] -1950 M Exm Date: JUL 17, 2023@11:09 Req Phys: BERNABE PRIETO THI Pat Loc: [facility]/NO/MED REHAB/SPINE INJ (Re Img Loc: [facility]BUILDING 1 Service: Unknown (Case [id number] COMPLETE) FLUOROSCOPIC GUIDANCE OF NEEDLE/S(RAD Detailed) CPT:30367 Reason for Study: transforaminal epidural steroid injection Clinical History: Report Status: Verified Date Reported: JUL 17, 2023 Date Verified: JUL 17, 2023 Distilling Department Supervisor E-Sig:/ES/LOU VICTORIA JR Report: Study: Pain injection [...] Primary Interpreting Staff: LOU VICTORIA JR, Radiologist (Distilling Department Supervisor) /LOU WASHINGTON JR [facility] Encounter Notes: All associated encounter notes This section contains the clinical notes associated to the Encounter. Date/Time Encounter Note(s) Provider Source Jun 21, 2023 08:27 AM PHARMACY MEDICATION MGT NOTE: LOCAL TITLE: PHARMACY ANTICOAGULATION NOTE STANDARD TITLE: PHARMACY MEDICATION MGT NOTE DATE OF NOTE: JUN 21, 2023@08:27 ENTRY DATE: JUN 21, 2023@08:31:38 AUTHOR: VIJAYA DURAN EXP COSIGNER: URGENCY: STATUS: COMPLETED Reason for visit: Initial Education for Apixaban/Eliquis Indication: atrial fibrillation Start Date: 06/25/23 Expected Duration: indefinite Referring Provider: Shyla Khan ([facility]) Patient Contact: Patient has given permission to leave anticoagulation message on answering machine or with person listed. Subjective: [place] seen by [facility] 06/17/23 following ER visit. EKG from 06/15 revealed AFib and [place] was initiated on Multaq, metoprolol and Xarelto. [place] is currently taking Xarelto without issue. [employer] [employer] identified significant DDI with Xarelto and Multaq and notifid [facility]. [facility] sent new rx for apixaban 5mg BID. reports he discussed transition with [facility] yesterday. denies any upcoming procedures. Denies alcohol. Labs: An INR was performed by a lab outside the [facility]. Patient reports outside Hgb results: Date: June 17, 2023 Results: 13.6 Location: Outside Healthcare Provider Patient reports outside HCT results: Date: June 17, 2023 Results: 41.5 Location: Outside Healthcare Provider Patient reports outside PLT results: Date: June 17, 2023 Results: 248 Location: Outside Healthcare Provider Patient reports outside SCR results: Date: June 17, 2023 Results: 1.06 Location: Outside Healthcare Provider Patient reports outside BUN results: Date: June 17, 2023 Results: 28 Location: Outside Healthcare Provider Patient reports outside ALT results: Date: June 15, 2023 Results: 17 Location: Outside Healthcare Provider Patient reports outside AST results: Date: June 15, 2023 Results: 17 Location: Outside Healthcare Provider CrCl: 57mL/min (Act BW) Vitals: Weight (BMI): 143 lb [64.86 kg] (12/24/2022 08:25) BMI: 21.8 Height: 68 in [172.7 cm] (02/21/2021 09:21) Active Outpatient Medications (including Supplies): APIXABAN 5MG TAB TAKE ONE TABLET BY MOUTH EVERY 12 HOURS HOLD DRONEDARONE 400MG TAB TAKE ONE TABLET BY MOUTH TWICE DAILY ACTIVE FOR PAROXYSMAL ATRIAL FIBRILLATION FLUTICASONE PROP 50MCG 120D NASAL INHL INSTILL 1 SPRAY ACTIVE INTO EACH NOSTRIL AT BEDTIME LATANOPROST 0.005% OPH SOLN INSTILL 1 DROP INTO EACH EYE ACTIVE AT BEDTIME FOR WIDE-ANGLE GLAUCOMA LIDOCAINE 5% PATCH APPLY 1 PATCH TOPICALLY ONCE DAILY FOR ACTIVE NERVE PAIN (LEAVE PATCH ON FOR 12 HOURS, THEN REMOVE PATCH) LOVASTATIN 20MG TAB TAKE ONE TABLET BY MOUTH AT BEDTIME ACTIVE FOR CHOLESTEROL -- AVOID GRAPEFRUIT JUICE METOPROLOL TARTRATE 25MG TAB TAKE ONE TABLET BY MOUTH ACTIVE TWICE DAILY FOR BLOOD PRESSURE/HEART NUTRITION SUPL ENSURE PLUS/VANILLA LIQ DRINK 1 CAN BY ACTIVE MOUTH TWICE DAILY OMEPRAZOLE 20MG EC CAP TAKE TWO CAPSULES BY MOUTH EVERY ACTIVE MORNING 30 MINUTES BEFORE BREAKFAST ONDANSETRON HCL 4MG TAB TAKE ONE TABLET BY MOUTH ONCE ACTIVE DAILY NEEDED FOR VOMITING/NAUSEA OXYCODONE HCL 5MG/APAP 325MG TAB TAKE 1 TABLET BY MOUTH ACTIVE THREE TIMES DAILY NEEDED FOR PAIN (NEXT FILL 07/05/23) ROPINIROLE HCL 0.25MG TAB TAKE ONE TABLET BY MOUTH DAILY ACTIVE Non-VA ACETAMINOPHEN 500MG TAB 1000MG BY MOUTH THREE TIMES ACTIVE DAILY NEEDED Interacting Meds: dronedarone (monitor) Apixaban: The patient was provided with the following education: --Purpose of Apixaban --Signs and symptoms of stroke and thrombosis and what to do should they occur --Medication Identification --Dosing recommendations -Apixaban may be taken with or without food --Storage recommendations -Store medication in a dry area at room temperature --Recommendations for missed doses or overdosage --Importance of medication compliance and avoiding lapses in therapy to minimize the risk of stroke --Monitor for signs/symptoms of bleeding, including: -[place] or brown urine -Red or black tarry stools -Coughing up blood -Vomiting blood or vomit that looks like coffee grounds -Reoccurring nosebleeds -Unusual bleeding from the gums -Bleeding from a cut that does not stop -Headaches, dizziness or weakness --Contact this clinic or provider if patient experiences and serious or intolerable adverse effects --Review risks associated with falling --Which medications to avoid due to drug interactions - avoid NSAIDs - limit EtOH --Importance of notifying all providers of any medication patient is taking or changes that may occur --What to do if patient wants to discontinue therapy --Contact this clinic or provider if scheduled for a procedure --Contact number for the [facility] provided Assessment/Plan: - Stop Xarelto - Initiate apixaban 5mg twice daily IN THE EVENING the day after last Xarelto dose - Consult for medical alert necklace placed Time Spent: 15 min Next Appt: 07/23/23 please mail handout Next PCP Appt: 07/04/23 EDUCATION Provided with verbal instructions: Yes Provided with written instructions: Yes Barriers to learning: No Readiness to learn: Yes Specific dose directions reviewed: Yes Opportunity for questions/discussion: Yes Reports understanding of instructions: Yes Further learning needs: No PBM PharmD Pharmacotherapy Rem V12: PHARMACIST INTERVENTIONS: ANTICOAGULATION THERAPY DIRECT ORAL ANTICOAGULANT (DOAC) MANAGEMENT Medication monitoring, no dosage change required, continue to monitor and assess Identify drug interaction Medication monitoring or diagnostic evaluation (e.g., other labs, EKG) Medication reconciliation (changes to active VA and non-VA medication lists to reconcile differences) No changes to medication lists made (medication review completed, no discrepancies identified) /robe/ VIJAYA DURAN Signed: 06/21/2023 08:55 Receipt Acknowledged By: 06/21/2023 09:02 /robe/ ALLISON PORTER CPHT Clinical Autotransfusionist VIJAYA DURAN [facility] ([id number])
--- OUTSIDE RECORDS SUMMARY | 2024-04-28 10:53 | XMS_ITS | Encounter Summary ---
Author Name Department of [place] Organization Department [place] Address [address] [place] [address] Care Team Providers Care Card Table Attendant Name Role Phone NEHEMIAH CUEVAS Primary Care [...] Name Patient's Relationship to Policy Orellana ANA [facility] Aug 11, 2014 [id number] DHAVAL SHAQ Wagner PATIENT [facility] MEDIC[facility] SUPPLEMEN ARTEMIO [facility] Aug 11, 2014 [id number] ARCHSTEPHANIA SHAQ [facility] SUPPLEMEN ARTEMIO MEDEX 2 Aug 11, 2014 [id number] DHAAVL SHAQ [facility] SUPPLEMEN ARTEMIO MEDEX 2 Aug 11, 2014 [id number] [phone] ARCHSTEPHANIA SHAQ [facility] MEDIC[facility] SUPPLEMEN ARTEMIO MEDEX 2 Aug 11, 2014 [id number] ARCHOCTAVIOEA SHAQ Wagner [facility] BLUEC[facility] MEDICARE SUPPLEMEN [facility] [place] Aug 11, 2014 [id number] [phone] SHAQ WONG PATIENT USMANA [facility] (WNR) MEDICARE ADVANTAGE HUMAN A INSUR [place] [facility] Jan 11, 2022 [id number] [phone] ARCHOCTAVIOEA SHAQ Wagner PATIENT USMANA MCR (WNR) MEDICARE ADVANTAGE [facility] (WNR) Jan 11, 2022 [id number] [phone] ARCHAMBEA SHAQ Wagner PATIENT MEDICARE (WNR) MEDICARE (M) PART A Dec 11, 2014 PART A [id number] ARCHAMBEA SHAQ Wagner PATIENT MEDICARE (WNR) MEDICARE () PART A Aug 11, 2014 PART A [id number] ARCHAMBEA SHAQ Wagner PATIENT MEDICARE (WNR) MEDICARE () PART B Aug 11, 2014 PART B [id number] ARCHAMBEA SHAQ Wagner PATIENT MEDICARE (WNR) MEDICARE () PART B Aug 11, 2014 PART B [id number] [phone] ARCHAMBEA SHAQ Wagner PATIENT MEDICARE (WNR) MEDICARE () PART A Aug 11, 2014 PART A [id number] [phone] ARCHAMBEA SHAQ Wagner PATIENT MEDICARE (WNR) MEDICARE () PART B Aug 11, 2014 PART B [id number] ARCHAMBEA SHAQ Wagner PATIENT MEDICARE (WNR) MEDICARE () PART A Aug 11, 2014 PART A [id number] ARCHAMBEA SHAQ Wagner PATIENT MEDICARE (WNR) MEDICARE (M) PART B Aug 11, 2014 PART B [id number] [phone] ARCHAMBEA SHAQ Wagner [facility] (WNR) MEDICARE ADVANTAGE [facility] (WNR) May 13, 2020 [id number] ARCHAMBEA SHAQ Wagner PATIENT Selected Encounter This section includes the information on record at [place] for the Encounter. Date/Time Encounter Type Encounter Description Reason Pro vider Source Jun 15, 2023 12:00 AM Outpatient Encounter EVENT (HISTORICAL) IHE Encounter Template Text not used by [place] Plan of Treatment: Future Appointments (+ 6 months) and Future Tests (+/- 45 days) The Plan of Treatment section includes future care activities for the patient from all [place] treatmentfacilities. This section includes future appointments and future orders which are active, pending or scheduled. Future Appointments This section includes appointments that were scheduled to occur 6 months from the date of the Encounter, up to a maximum of 20 appointments. The data comes from all [place] treatment facilities. Appointment Date/Time Appointment Type Appointme nt Facility Name Jun 24, 2023 08:30 AM AMBULATORY - NONE [facility] [place] [facility] Jul 04, 2023 09:00 AM AMBULATORY - MEDICINE [facility] Jul 05, 2023 08:45 AM AMBULATORY - MEDICINE [facility] [place] [place] [facility] Jul 17, 2023 11:00 AM AMBULATORY - REHAB MEDICIN E [facility] [place] [facility] Aug 12, 2023 07:30 AM AMBULATORY - REHAB MEDICIN E [facility] [facility] Aug 30, 2023 08:45 AM AMBULATORY - MEDICINE [facility] [place] [place] [facility] October 02, 2023 08:00 AM AMBULATORY - REHAB MEDICIN E [facility] [place] [facility] October 08, 2023 11:00 AM AMBULATORY - MEDICINE [facility] October 09, 2023 08:30 AM AMBULATORY - MEDICINE [facility] [place] [facility] Oct 23, 2023 08:30 AM AMBULATORY - MEDICINE [facility] Nov 19, 2023 08:30 AM AMBULATORY - MEDICINE [place] [facility] [place] [facility] Nov 28, 2023 07:30 AM AMBULATORY - REHAB MEDICIN E [facility] [place] [facility] Lab Results: +/- 30 days of the encounter This section includes the Chemistry and Hematology Lab Results on record with AL for the patient. Radiology Reports and Pathology Reports are provided separately, in subsequent sections. Lab Results This section contains the Chemistry/Hematology Results that were resulted 30 days before or 30 daysafter the date of the Encounter. Date/Time Source Result Type Result - Unit Interpretation Reference Range Comment Jun 27, 2023 07:32 AM [place] VITAMIN D (25-OH) Specimen Type: SERUM No comment entered. Ordering Provider: NEHEMIAH DAVIES Report Released Date/Time: Nov 09, 2022 12:33 PM Reporting Lab: [address] [address] Performing Lab: [address] [address] VITAMIN D (25-OH) 48 ng/mL 20-50 Jun 27, 2023 07:32 AM [place] BASIC METABOLIC PANEL (fasting) Specime n Type: SERUM No comment entered. Ordering Provider: NEHEMIAH DAVIES Report Released Date/Time: Nov 09, 2022 12:33 PM Reporting Lab: [address] [address] Performing Lab: [address] [address] UREA NITROGEN 18 mg/dL 7-25 GLUCOSE 96 mg/dL 65-100 SODIUM 141 mmol/L 135-145 POTASSIUM 4.8 mmol/L 3.5-5.0 CHLORIDE 106 mmol/L 100-110 CO2 28 meq/L 20-30 CREATININE, Serum 1.11 mg/dL 0.50-1.40 eGFR(CKD-EPI 2020) 70 mL/min >60 Jun 27, 2023 07:32 AM [place] LIVER FUNCTION Specimen Type: SERUM No comment entered. Ordering Provider: NEHEMIAH DAVIES Report Released Date/Time: Nov 09, 2022 12:33 PM Reporting Lab: [address] [address] Performing Lab: [address] [address] PROTEIN,TOTAL 6.7 g/dL 6.0-8.3 ALBUMIN 4.1 g/dL 3.5-5.0 ALKALINE PHOSPHATASE 66 U/L 40-150 AST 14 U/L 5-34 ALT 21 U/L BILIRUBIN, TOTAL 0.4 mg/dL 0.2-1.2 Jun 27, 2023 07:32 AM [place] LIPID PANEL FASTING Specimen Type: SERUM No comment entered. Ordering Provider: NEHEMIAH DAVIES Report Released Date/Time: Nov 09, 2022 12:33 PM Reporting Lab: [address] [address] Performing [facility]: [facility] [address] [address] CHOLESTEROL 156 mg/dL TRIGLYCERIDE 83 mg/dL 0-150 LDL calculated 78 mg/dL 0-129 CHOL/HDL 2.6 HDL CHOLESTEROL 61 mg/dL H 40-60 Jun 27, 2023 07:32 AM [place] VITAMIN B12 Specimen Type: SERUM No comment entered. Ordering Provider: NEHEMIAH DAVIES Report Released Date/Time: Nov 09, 2022 12:33 PM Reporting Lab: [address] [address] Performing Lab: [address] [address] VITAMIN B12 591 pg/mL 200-900 Jun 27, 2023 07:32 AM [place] MAGNESIUM Specimen Type: SERUM No comment entered. Ordering Provider: NEHEMIAH DAVIES Report Released Date/Time: Nov 09, 2022 12:33 PM Reporting Lab: [address] [address] [facility]forming [facility]: [facility] [address] MAGNESIUM 2.1 mg/dL 1.6-2.6 Jun 27, 2023 07:32 AM [place] CBC AND DIFF (AUTO) Specimen Type: BLOOD No comment entered. Ordering Provider: NEHEMIAH DAVIES Report Released Date/Time: Nov 09, 2022 12:33 PM Reporting Lab: [address] [address] Performing [facility]: [facility] [address] [facility] [address] WBC 8.96 10*3/uL 4.50-11.00 RBC 4.81 10*6/uL 4.23-5.66 HGB 14.0 g/dL 12.8-17 HCT 42.4 39.2-50.4 MCV 88.1 fL 82-99 MCHC 33.0 g/dL 30.8-35.1 PLT 312 10*3/uL 140-360 RDW-CV 12.3 12.0-16.0 [place], Abs 0.59 10*3/uL 0.30-1.10 MCH 29.1 pg 26.2-32.6 Neut % 65.4 43.7-75.8 Lymph % 21.4 14.0-42.3 [place] % 6.6 5.1-13.7 Eos % 4.4 0.4-6.8 [...] and tobacco- related health factors from the [place] facility where the Encounter took place. Current Smoking Status This section includes the most current smoking, or tobacco-related health factor, from the [place] facility where the Encounter took place. Date/Time Current Smoking Status Comment Facil ity Mar 14, 2022 03:02 PM VA-TOBACCO FORMER USER [facility] Tobacco Use History This section includes a history of the smoking, or tobacco-related health factors, that were collected on or before the date of the Encounter. The data comes from the [place] facility where the Encounter took place. Date/Time Smoking Status/Tobacco Use Comment F acility Mar 14, 2022 03:02 PM AL-TOBACCO QUIT 15 YRS OR MORE [facility] [place] [facility] Feb 08, 2021 09:00 AM VA-TOBACCO [facility] Feb 08, 2021 09:00 AM VA-TOBACCO QUIT [facility]RS OR [facility] October 09, 2019 01:12 PM [facility] October 09, 2019 01:12 PM VA-TOBACCO QUIT 5 TO < 15 YRS [facility] Advance Directives: All historical and current Section Date Range: From patient's date of to the date document was created. This section includes ALL of a patient's completed or amended VA Advance and Rescinded Directives. The entries below indicate that a directive exists for the patient, but an actual copy is not included with this document. The data comes from all [place] facilities. Date Advance Directives Provider Source Feb 21, 2021 ADVANCE DIRECTIVE BEL ESCALANTE
--- OUTSIDE RECORDS SUMMARY | 2024-04-28 10:53 | XMS_ITS | Encounter Summary ---
Author Name Department of Vetera Affairs [place]) Organization Department of Vetera [place] Address [address] [place] [address] Care Team Providers Care Automobile Radiator Mechanic Name Role Phone NEHEMIAH CUEVAS Primary Care [...] Name Patient's Relationship to Policy Orellana ANA [facility] Aug 11, 2014 [id number] [phone] DHAVAL WagnerSHAQ PATIENT [facility] MEDIC[facility] SUPPLEMEN ARTEMIO [facility] Aug 11, 2014 [id number] HDAVAL SHAQ Wagner [facility] SUPPLEMEN ARTEMIO MEDEX 2 Aug 11, 2014 [id number] DHAVAL SHAQ Wagner [facility] SUPPLEMEN ARTEMIO MEDEX 2 Aug 11, 2014 [id number] DHAVAL SHAQ Wagner PATIENT [place] MEDICARE SUPPLEMEN ARTEMIO MEDEX 2 Aug 11, 2014 [id number] [phone] ARCHOCTAVIOEA SHAQ Wagner [facility] [place] MEDICARE SUPPLEMEN [facility] [facility] [facility] [place] [facility] Aug 11, 2014 [id number] SHAQ WONG PATIENT USMANA [facility] (WNR) MEDICARE ADVANTAGE [facility] (WNR) Jan 11, 2022 [id number] [phone] ARCHAMBEA SHAQ Wagner PATIENT USMANA [facility] (WNR) MEDICARE ADVANTAGE HUMAN A INSUR ANCE COM Jan 11, 2022 [id number] [phone] ARCHAMBEA SHAQ Wagner PATIENT MEDICARE (WNR) MEDICARE (M) PART A Dec 11, 2014 PART A [id number] [phone] ARCHAMBEA SHAQ Wagner PATIENT MEDICARE (WNR) MEDICARE (M) PART A Aug 11, 2014 PART A [id number] ARCHAMBEA SHAQ Wagner PATIENT MEDICARE (WNR) MEDICARE () PART B Aug 11, 2014 PART B [id number] ARCHAMBEA SHAQ Wagner PATIENT MEDICARE (WNR) MEDICARE () PART A Aug 11, 2014 PART A [id number] ARCHAMBEA Bernard,SHAQ PATIENT MEDICARE (WNR) MEDICARE () PART B Aug 11, 2014 PART B [id number] ARCHAMBEA U,SHAQ PATIENT MEDICARE (WNR) MEDICARE (M) PART A Aug 11, 2014 PART A [id number] ARCHAMBEA Bernard,SHAQ PATIENT MEDICARE (WNR) MEDICARE (M) PART B Aug 11, 2014 PART B [id number] ARCHAMBEA U,SHAQ PATIENT MEDICARE (WNR) MEDICARE (M) PART B Aug 11, 2014 PART B [id number] ARCHAMBEA SHAQ Wagner [facility] (WNR) MEDICARE ADVANTAGE [facility] (WNR) May 13, 2020 [id number] ARCHAMBEA SHAQ Wagner PATIENT Selected Encounter This section includes the information on record at MD for the Encounter. Date/Time Encounter Type Encounter Description Reason Pro vider Source May 24, 2023 08:10 AM Outpatient Encounter PRIMARY CARE/MEDICINE IHE Encounter Template Text not used by MD Plan of Treatment: Future Appointments (+ 6 months) and Future Tests (+/- 45 days) The Plan of Treatment section includes future care activities for the patient from all [place] treatmentfacilities. This section includes future appointments and future orders which are active, pending or scheduled. Future Appointments This section includes appointments that were scheduled to occur 6 months from the date of the Encounter, up to a maximum of 20 appointments. The data comes from all MD treatment facilities. Appointment Date/Time Appointment Type Appointme nt Facility Name Jun 24, 2023 08:30 AM AMBULATORY - NONE [facility] [place] [facility] Jul 04, 2023 09:00 AM AMBULATORY - MEDICINE [facility] Jul 05, 2023 08:45 AM AMBULATORY - MEDICINE [facility] [place] [facility] Jul 17, 2023 11:00 AM AMBULATORY - REHAB MEDICIN E [facility] [place] [facility] Aug 12, 2023 07:30 AM AMBULATORY - REHAB MEDICIN E [facility] [place] [facility] Aug 30, 2023 08:45 AM AMBULATORY - MEDICINE [place] [facility] [place] [facility] October 02, 2023 08:00 AM AMBULATORY - REHAB MEDICIN E [facility] [place] [facility] October 08, 2023 11:00 AM AMBULATORY - [facility] October 09, 2023 08:30 AM AMBULATORY - MEDICINE [place] [facility] [place] [facility] Oct 23, 2023 08:30 AM AMBULATORY - MEDICINE [facility] Nov 19, 2023 08:30 AM AMBULATORY - MEDICINE [place] [facility] [place] [facility] Social History: Smoking Status (Most current) and Tobacco Use (All prior to encounter date) This section includes the most current, and the historical, smoking and tobacco- related health factors from the VA facility where the Encounter took place. Current Smoking Status This section includes the most current smoking, or tobacco-related health factor, from the MD facility where the Encounter took place. Date/Time Current Smoking Status Comment Lor gonzalez Mar 14, 2022 03:02 PM VA-TOBACCO FORMER USER [facility] [place] [facility] Tobacco Use History This section includes a history of the smoking, or tobacco-related health factors, that were collected on or before the date of the Encounter. The data comes from the MD facility where the Encounter took place. Date/Time Smoking Status/Tobacco Use Comment F acility Mar 14, 2022 03:02 PM VA-TOBACCO QUIT 15 YRS OR MORE [facility] Feb 08, 2021 09:00 AM [facility] Feb 08, 2021 09:00 AM [facility]-TOBACCO QUIT [facility]RS [facility] October 09, 2019 01:12 PM VA-TOBACCO FORMER USER [facility] October 09, 2019 01:12 PM MD-TOBACCO QUIT 5 TO < 15 YRS [facility] Advance Directives: All historical and current Section Date Range: From patient's date of to the date document was created. This section includes ALL of a patient's completed or amended MD Advance and Rescinded Directives. The entries below indicate that a directive exists for the patient, but an actual copy is not included with this document. The data comes from all MD facilities. Date Advance Directives Provider Source Feb 21, 2021 ADVANCE DIRECTIVE BEL ESCALANTE [facility] Encounter Notes: All associated encounter notes This section contains the clinical notes associated to the Encounter. Date/Time Encounter Note(s) Provider Source May 24, 2023 08:10 AM PRIMARY CARE NOTE: LOCAL TITLE: WALK-IN NOTE PRIMARY CARE (T) STANDARD TITLE: PRIMARY CARE NOTE DATE OF NOTE: MAY 24, 2023@08:10 ENTRY DATE: MAY 24, 2023@08:10:20 AUTHOR: NAKUL GERONIMO EXP COSIGNER: URGENCY: STATUS: COMPLETED <====Click to Start Advanced Medical Support [place] presents to the Primary Care clinic with the following request: [ X ]Medication Renewal/Refill [ ]Consultation with Team RN [ ]Symptoms [ ]Other The [place] states they are: [ ]Waiting [ X ]Not Waiting No Walk in visit scheduled with PACT Nurse [ X ] At this encounter the 's demographics were verified. [ X ] At this encounter the 's Insurance information was verified. [ ] At this encounter the below scheduled visits for the [place] were discussed and appointment reminder card was offered. Future appointments: 06/24/2023 08:30 CWM/SO/NUTRITION1 07/04/2023 09:00 CWM/SO/PACT 5 07/22/2023 09:00 CWM/NO/MED REHAB/SPINE IN 10/23/2023 08:30 CWM/SO/PODIATRY/ROSS 11/19/2023 08:30 NHM/OPTOMETRY// Patient presents to clinic requesting REFILL for OXYDODONE Patient states he was shorted one month supply Please contact patient /es/ GILBERT GERONIMO Advanced Information Systems Administrator Signed: 05/24/2023 08:12 Receipt Acknowledged By: 05/24/2023 10:04 /robe/ JEREMY WICK RN REGISTERED NURSE GILBERT GERONIMO [place]
--- OUTSIDE RECORDS SUMMARY | 2024-04-28 10:53 | XMS_ITS | Encounter Summary ---
Author Name Department [place] Address [address] [place] [address] Care Team Providers Care Parks Recreation Director Name Role Phone NEHEMIAH CUEVAS Primary [...] Name Patient's Relationship to Policy Orellana ANA [facility] Aug 11, 2014 [id number] DHAVAL SHAQ Wagner PATIENT ANA [place] MEDICARE SUPPLEMEN [facility] Aug 11, 2014 [id number] DHAVAL SHAQ Wagner PATIENT [place] MED[place] SUPPLEMEN ARTEMIO MEDEX 2 Aug 11, 2014 [id number] [phone] DHAVAL SHAQ Wagner [place] SUPPLEMEN ARTEMIO MEDEX 2 Aug 11, 2014 [id number] ARCHSTEPHANIA SHAQ Wagner PATIENT [place] MED[place] SUPPLEMEN ARTEMIO MEDEX 2 Aug 11, 2014 [id number] [phone] DHAVAL SHAQ Wagner [employer] MEDICARE SUPPLEMEN [facility] [facility] [place] [facility] Aug 11, 2014 [id number] LAURIEEA SHAQ Wagner PATIENT USMANA [facility] (WNR) MEDICARE ADVANTAGE [facility] (WNR) Jan 11, 2022 [id number] [phone] ARCHAMBEA SHAQ Wagner PATIENT USMANA [facility] (WNR) MEDICARE ADVANTAGE HUMAN A INSUR ANCLillian COM Jan 11, 2022 [id number] [phone] ARCHAMBEA U,SHAQ PATIENT MEDICARE (WNR) MEDICARE (M) PART A Dec 11, 2014 PART A [id number] ARCHAMBEA Bernard,SHAQ PATIENT MEDICARE (WNR) MEDICARE (M) PART A Aug 11, 2014 PART A [id number] ARCHAMBEA U,SHAQ PATIENT MEDICARE (WNR) MEDICARE (M) PART B Aug 11, 2014 PART B [id number] ARCHAMBEA U,SHAQ PATIENT MEDICARE (WNR) MEDICARE (M) PART A Aug 11, 2014 PART A [id number] [phone] ARCHAMBEA U,SHAQ PATIENT MEDICARE (WNR) MEDICARE (M) PART B Aug 11, 2014 PART B [id number] [phone] ARCHAMBEA U,SHAQ PATIENT MEDICARE (WNR) MEDICARE (M) PART A Aug 11, 2014 PART A [id number] ARCHAMBEA Bernard,SHAQ PATIENT MEDICARE (WNR) MEDICARE (M) PART B Aug 11, 2014 PART B [id number] ARCHAMBEA Bernard,SHAQ PATIENT MEDICARE (WNR) MEDICARE (M) PART B Aug 11, 2014 PART B [id number] [phone] ARCHAMBEA SHAQ Wagner [facility] (WNR) MEDICARE ADVANTAGE [facility] (WNR) May 13, 2020 [id number] ARCHAMBEA SHAQ Wagner PATIENT Selected Encounter This section includes the information on record at [place] for the Encounter. Date/Time Encounter Type Encounter Description Reason Pro vider Source IHE Encounter Template Text not used by VA Advance Directives: All historical and current Section Date Range: From patient's date of to the date document was created. This section includes ALL of a patient's completed or amended VA Advance and Rescinded Directives. The entries below indicate that a directive exists for the patient, but an actual copy is not included with this document. The data comes from all [place] facilities. Date Advance Directives Provider Source Feb 21, 2021 ADVANCE DIRECTIVE BEL ESCALANTE
--- OUTSIDE RECORDS SUMMARY | 2024-04-28 10:53 | XMS_ITS | Encounter Summary ---
Author Name [place] Address [address] [place] [address] Care Team Providers Care Senior Staff Psychologist Name Role Phone NEHEMIAH CUEVAS Primary Care [...] Name Patient's Relationship to Policy Orellana ANA [facility] Aug 11, 2014 [id number] [phone] DHAVAL SHAQ Wagner PATIENT ANA BCBS [facility] MEDICARE SUPPLEMEN ARTEMIO [facility] Aug 11, 2014 [id number] DHAVAL SHAQ [facility] SUPPLEMEN ARTEMIO MEDEX 2 Aug 11, 2014 [id number] [phone] DHAVAL SHAQ [place] SUPPLEMEN ARTEMIO MEDEX 2 Aug 11, 2014 [id number] DHAVAL SHAQ [place] SUPPLEMEN ARTEMIO MEDEX 2 Aug 11, 2014 [id number] ARCHAMBEA SHAQ Wagner PATIENT [facility] BLUECARD MEDICARE SUPPLEMEN [facility] [place] [facility] Aug 11, 2014 [id number] SHAQ WONG PATIENT USMANA [facility] (WNR) MEDICARE ADVANTAGE HUMAN A INSUR [facility] Jan 11, 2022 [id number] [phone] ARCHOCTAVIOEA SHAQ Wagner PATIENT USMANA MCR (WNR) MEDICARE ADVANTAGE [facility] (WNR) Jan 11, 2022 [id number] [phone] ARCHAMBEA SHAQ Wagner PATIENT MEDICARE (WNR) MEDICARE (M) PART A Dec 11, 2014 PART A [id number] [phone] ARCHAMBEA USHAQ PATIENT MEDICARE (WNR) MEDICARE () PART A Aug 11, 2014 PART A [id number] ARCHAMBEA SHAQ Wagner PATIENT MEDICARE (WNR) MEDICARE () PART B Aug 11, 2014 PART B [id number] [phone] ARCHAMBEA USHAQ PATIENT MEDICARE (WNR) MEDICARE () PART A Aug 11, 2014 PART A [id number] ARCHAMBEA SHAQ Wagner PATIENT MEDICARE (WNR) MEDICARE () PART B Aug 11, 2014 PART B [id number] ARCHAMBEA SHAQ Wagner PATIENT MEDICARE (WNR) MEDICARE () PART A Aug 11, 2014 PART A [id number] ARCHAMBEA U,SHAQ PATIENT MEDICARE (WNR) MEDICARE (M) PART B Aug 11, 2014 PART B [id number] ARCHAMBEA U,SHAQ PATIENT MEDICARE (WNR) MEDICARE (M) PART B Aug 11, 2014 PART B [id number] ARCHAMBEA SHAQ Wagner PATIENT [facility] (WNR) MEDICARE ADVANTAGE [facility] (WNR) May 13, 2020 [id number] ARCHAMBEA SHAQ Wagner PATIENT Selected Encounter This section includes the information on record at [place] for the Encounter. Date/Time Encounter Type Encounter Description Reason Pro vider Source Jun 05, 2023 08:39 AM Outpatient Encounter ADMIN PAT ACTIVTIES (MASNONCT) IHE Encounter Template Text not used by [place] Plan of Treatment: Future Appointments (+ 6 months) and Future Tests (+/- 45 days) The Plan of Treatment section includes future care activities for the patient from all [place] [facility]. This section includes future appointments and future orders which are active, pending or scheduled. Future Appointments This section includes appointments that were scheduled to occur 6 months from the date of the Encounter, up to a maximum of 20 appointments. The data comes from all [place] treatment facilities. Appointment Date/Time Appointment Type Appointme nt Facility Name Jun 24, 2023 08:30 AM AMBULATORY - NONE [facility] [place] [facility] Jul 04, 2023 09:00 AM [facility] Jul 05, 2023 08:45 AM AMBULATORY - MEDICINE [facility] [place] [facility] Jul 17, 2023 11:00 AM AMBULATORY - REHAB MEDICIN E [facility] [place] [facility] Aug 12, 2023 07:30 AM AMBULATORY - REHAB MEDICIN E [facility] [place] [facility] Aug 30, 2023 08:45 AM AMBULATORY - [place]ICINE [place] [facility] [place] [facility] October 02, 2023 08:00 AM AMBULATORY - REHAB MEDICIN E [facility] [place] [facility] October 08, 2023 11:00 AM [facility]ATORY [facility] MEDICINE [facility] October 09, 2023 08:30 AM AMBULATORY - MEDICINE [facility] [place] [facility] Oct 23, 2023 08:30 AM [facility]ATORY - MEDICINE [facility] Nov 19, 2023 08:30 AM AMBULATORY - MEDICINE [place] [facility] [place] [facility] Nov 28, 2023 07:30 AM AMBULATORY - REHAB MEDICIN E [facility] [place] [facility] Lab Results: +/- 30 days of the encounter This section includes the Chemistry and Hematology Lab Results on record with [place] for the patient. Radiology Reports and Pathology Reports are provided separately, in subsequent sections. Lab Results This section contains the Chemistry/Hematology Results that were resulted 30 days before or 30 daysafter the date of the Encounter. Date/Time Source Result Type Result - Unit Interpretation Reference Range Comment Jun 27, 2023 07:32 AM [facility] BASIC METABOLIC PANEL (fasting) Specime n Type: SERUM No comment entered. Ordering Provider: NEHEMIAH DAVIES Report Released Date/Time: Nov 09, 2022 12:33 PM Reporting Lab: [address] [address] Performing Lab: [address] [address] UREA NITROGEN 18 mg/dL 7-25 GLUCOSE 96 mg/dL 65-100 SODIUM 141 mmol/L 135-145 POTASSIUM 4.8 mmol/L 3.5-5.0 CHLORIDE 106 mmol/L 100-110 CO2 28 meq/L 20-30 CREATININE, Serum 1.11 mg/dL 0.50-1.40 eGFR(CKD-EPI 2020) 70 mL/min >60 Jun 27, 2023 07:32 AM [facility] VITAMIN D (25-OH) Specimen Type: SERUM No comment entered. Ordering Provider: NEHEMIAH DAVIES Report Released Date/Time: Nov 09, 2022 12:33 PM Reporting Lab: [address] [address] Performing Lab: [address] [address] VITAMIN D (25-OH) 48 ng/mL 20-50 Jun 27, 2023 07:32 AM [facility] LIPID PANEL FASTING Specimen Type: SERUM No comment entered. Ordering Provider: NEHEMIAH DAVIES Report Released Date/Time: Nov 09, 2022 12:33 PM Reporting Lab: [address] [address] Performing Lab: [address] [address] CHOLESTEROL 156 mg/dL TRIGLYCERIDE 83 mg/dL 0-150 LDL calculated 78 mg/dL 0-129 CHOL/HDL 2.6 HDL CHOLESTEROL 61 mg/dL H 40-60 Jun 27, 2023 07:32 AM [facility] LIVER FUNCTION Specimen Type: SERUM No comment entered. Ordering Provider: NEHEMIAH DAVIES Report Released Date/Time: Nov 09, 2022 12:33 PM Reporting Lab: [facility] [address] [address] Performing Lab: [address] [address] PROTEIN,TOTAL 6.7 g/dL 6.0-8.3 ALBUMIN 4.1 g/dL 3.5-5.0 ALKALINE PHOSPHATASE 66 U/L 40-150 AST 14 U/L 5-34 ALT 21 U/L BILIRUBIN, TOTAL 0.4 mg/dL 0.2-1.2 Jun 27, 2023 07:32 AM [facility] MAGNESIUM Specimen Type: SERUM No comment entered. Ordering Provider: NEHEMIAH DAVIES Report Released Date/Time: Nov 09, 2022 12:33 PM Reporting Lab: [facility] [address] [address] Performing Lab: [address] [address] MAGNESIUM 2.1 mg/dL 1.6-2.6 Jun 27, 2023 07:32 AM [facility] VITAMIN B12 Specimen Type: SERUM No comment entered. Ordering Provider: NEHEMIAH DAVIES Report Released Date/Time: Nov 09, 2022 12:33 PM Reporting Lab: [facility] [address] [address] Performing Lab: [facility] [address] VITAMIN B12 591 pg/mL 200-900 Jun 27, 2023 07:32 AM [facility] CBC AND DIFF (AUTO) Specimen Type: BLOOD No comment entered. Ordering Provider: NEHEMIAH DAVIES Report Released Date/Time: Nov 09, 2022 12:33 PM Reporting Lab: [facility] [address] [address] Performing Lab: [facility] [address] [facility] [address] WBC 8.96 10*3/uL 4.50-11.00 RBC 4.81 10*6/uL 4.23-5.66 HGB 14.0 g/dL 12.8-17 HCT 42.4 39.2-50.4 MCV 88.1 fL 82-99 MCHC 33.0 g/dL 30.8-35.1 PLT 312 10*3/uL 140-360 RDW-CV 12.3 12.0-16.0 [place], Abs 0.59 10*3/uL 0.30-1.10 MCH 29.1 pg 26.2-32.6 Neut % 65.4 43.7-75.8 Lymph % 21.4 14.0-42.3 [place] % 6.6 5.1-13.7 Eos % 4.4 0.4-6.8 [...] and tobacco- related health factors from the [place] facility where the Encounter took place. Current Smoking Status This section includes the most current smoking, or tobacco-related health factor, from the [place] facility where the Encounter took place. Date/Time Current Smoking Status Comment Facil ity Mar 14, 2022 03:02 PM VA-TOBACCO FORMER USER [facility] Tobacco Use History This section includes a history of the smoking, or tobacco-related health factors, that were collected on or before the date of the Encounter. The data comes from the [place] facility where the Encounter took place. Date/Time Smoking Status/Tobacco Use Comment F acility Mar 14, 2022 03:02 PM VA-TOBACCO QUIT 15 YRS OR MORE [place] [facility] [place] [facility] Feb 08, 2021 09:00 AM VA-TOBACCO FORMER USER [place] [facility] [place] [facility] Feb 08, 2021 09:00 AM VA-TOBACCO QUIT 15 YRS OR MORE [place] [facility] [place] [facility] October 09, 2019 01:12 PM VA-TOBACCO FORMER USER [place] [facility] [place] [facility] October 09, 2019 01:12 PM VA-TOBACCO QUIT 5 TO < 15 YRS [place] [facility] Advance Directives: All historical and current Section Date Range: From patient's date of to the date document was created. This section includes ALL of a patient's completed or amended [place] Advance and Rescinded Directives. The entries below indicate that a directive exists for the patient, but an actual copy is not included with this document. The data comes from all [place] facilities. Date Advance Directives Provider Source Feb 21, 2021 ADVANCE DIRECTIVE BEL ESCALANTE [facility] Encounter Notes: All associated encounter notes This section contains the clinical notes associated to the Encounter. Date/Time Encounter Note(s) Provider Source Jun 05, 2023 08:39 AM ADMINISTRATIVE NOT E: LOCAL TITLE: CCC: SCHEDULING ADMINISTRATION STANDARD TITLE: ADMINISTRATIVE NOTE DATE OF NOTE: JUN 05, 2023@08:39 ENTRY DATE: JUN 05, 2023@08:39:47 AUTHOR: MAYKEL LIU EXP COSIGNER: URGENCY: STATUS: COMPLETED CCC: SCHEDULING ADMINISTRATION Has ADDENDA Patient Demographics Patient Name: SHAQ GREGORIO Patient Primary Phone: [phone] Patient Primary Address: [address] [place] [address] Patient : 1950 Patient Age: 72 Caller/Recipient Relation to Patient: Self RENEWAL OXYCODONE MAIL /robe/ MAYKEL LIU VISN 1 [facility] AMSA Signed: 06/05/2023 08:40 Receipt Acknowledged By: 06/05/2023 09:36 /es/ JEREMY WICK RN REGISTERED NURSE 06/05/2023 14:54 /es/ NEHEMIAH CUEVAS MD PHYSICIAN 06/05/2023 ADDENDUM STATUS: COMPLETED Medication was mailed to the on 06/04/23 and he should receive the prescription in 7-10 days. /robe/ JEREMY WICK RN REGISTERED NURSE Signed: 06/05/2023 09:37 MAYKEL LIURL GUIDO [facility]
--- OUTSIDE RECORDS SUMMARY | 2024-04-28 10:53 | XMS_ITS | Encounter Summary ---
Author Name [facility] [place] Address [address] [place] [address] Care Team Providers Care Director Online Marketing Name Role Phone NEHEMIAH CUEVAS Primary Care [...] Name Patient's Relationship to Policy Orellana ANA [facility] Aug 11, 2014 [id number] DHAVAL SHAQ Wagner PATIENT ANA BCBS [facility] MEDICARE SUPPLEMEN ARTEMIO [facility] Aug 11, 2014 [id number] [phone] DHAVAL SHAQ [place] SUPPLEMEN ARTEMIO MEDEX 2 Aug 11, 2014 [id number] DHAVAL SHAQ [place] SUPPLEMEN ARTEMIO MEDEX 2 Aug 11, 2014 [id number] ARCHSTEPHANIA SHAQ Wagner [place] SUPPLEMEN ARTEMIO MEDEX 2 Aug 11, 2014 [id number] ARCHOCTAVIOEA SHAQ Wagner PATIENT [place] BLU[place]ARD MEDICARE SUPPLEMEN [facility] [place] [facility] Aug 11, 2014 [id number] SHAQ WONG PATIENT USMANA [facility] (WNR) MEDICARE ADVANTAGE [facility] (WNR) Jan 11, 2022 [id number] [phone] ARCHAMBEA SHAQ Wagner PATIENT USMANA [facility] (WNR) MEDICARE ADVANTAGE HUMAN A INSUR ANCE COM Jan 11, 2022 [id number] [phone] ARCHAMBEA SHAQ Wagner PATIENT MEDICARE (WNR) MEDICARE () PART A Dec 11, 2014 PART A [id number] ARCHAMBEA U,SHAQ PATIENT MEDICARE (WNR) MEDICARE () PART B Aug 11, 2014 PART B [id number] ARCHAMBEA Bernard,SHAQ PATIENT MEDICARE (WNR) MEDICARE () PART A Aug 11, 2014 PART A [id number] ARCHAMBEA Bernard,SHAQ PATIENT MEDICARE (WNR) MEDICARE () PART B Aug 11, 2014 PART B [id number] ARCHAMBEA Bernard,SHAQ PATIENT MEDICARE (WNR) MEDICARE () PART A Aug 11, 2014 PART A [id number] ARCHAMBEA Bernard,SHAQ PATIENT MEDICARE (WNR) MEDICARE () PART B Aug 11, 2014 PART B [id number] ARCHAMBEA U,SHAQ PATIENT MEDICARE (WNR) MEDICARE () PART A Aug 11, 2014 PART A [id number] [phone] ARCHAMBEA U,SHAQ PATIENT MEDICARE (WNR) MEDICARE () PART B Aug 11, 2014 PART B [id number] ARCHAMBEA SHAQ Wagner [facility] (WNR) MEDICARE ADVANTAGE [facility] (WNR) May 13, 2020 [id number] ARCHAMBEA SHAQ Wagner PATIENT Selected Encounter This section includes the information on record at [place] for the Encounter. Date/Time Encounter Type Encounter Description Reason Provider Source Jun 19, 2023 11:38 AM MTMS BY PHARM SENIOR CASE MANAGER 15 MIN TELEPHONE/KAYLIILLA RUCHI ICD-10-CM I48.20 Chronic atrial fibrillation, unspecified VIJAYA DURAN [facility] Encounter Template Text not used by [place] Assessments - Encounter Diagnoses This section includes the primary and secondary diagnoses documented for the Encounter. Date/Time Primary/Secondary Diagnosis Diagnosis Name Provider Source Jun 19, 2023 11:38 AM PRIMARY Chronic atrial fibrillation, unspecified VIJAYA DURAN [facility] ([id number]) Plan of Treatment: Future Appointments (+ 6 months) and Future Tests (+/- 45 days) The Plan of Treatment section includes future care activities for the patient from all [place] [facility]. This section includes future appointments and [...] AMBULATORY - NONE [facility] [place] [facility] Jul 04, 2023 09:00 AM [facility] Jul 05, 2023 08:45 AM AMBULATORY - MEDICINE [place] [facility] [facility] Jul 17, 2023 11:00 AM AMBULATORY - REHAB MEDICIN E [facility] [place] [facility] Aug 12, 2023 07:30 AM AMBULATORY - REHAB MEDICIN E [facility] [place] [facility] Aug 30, 2023 08:45 AM AMBULATORY - MEDICINE [facility] [place] [facility] October 02, 2023 08:00 AM AMBULATORY - REHAB MEDICIN E [facility] [place] [facility] October 08, 2023 11:00 AM [facility] October 09, 2023 08:30 AM AMBULATORY - MEDICINE [facility] [place] [facility] Oct 23, 2023 08:30 AM AMBULATORY - MEDICINE [facility] Nov 19, 2023 08:30 AM AMBULATORY - MEDICINE [place] [facility] [place] [facility] Nov 28, 2023 07:30 AM AMBULATORY - REHAB MEDICIN E [facility] [place] [facility] Lab Results: +/- 30 days of the [...] Range Comment Jun 27, 2023 07:32 AM [facility] LIPID PANEL FASTING Specimen Type: SERUM No comment entered. Ordering Provider: NEHEMIAH DAVIES Report Released Date/Time: Nov 09, 2022 12:33 PM Reporting Lab: [address] [address] Performing Lab: [address] [address] CHOLESTEROL 156 mg/dL TRIGLYCERIDE 83 mg/dL 0-150 LDL calculated 78 mg/dL 0-129 CHOL/HDL 2.6 HDL CHOLESTEROL 61 mg/dL H 40-60 Jun 27, 2023 07:32 AM [place] VITAMIN D (25-OH) Specimen Type: SERUM No comment entered. Ordering Provider: NEHEMIAH DAVIES Report Released Date/Time: Nov 09, 2022 12:33 PM Reporting Lab: [address] [address] Performing Lab: [address] [address] VITAMIN D (25-OH) 48 ng/mL 20-50 Jun 27, 2023 07:32 AM [place] LIVER FUNCTION Specimen Type: SERUM No comment entered. Ordering Provider: NEHEMIAH DAVIES Report Released Date/Time: Nov 09, 2022 12:33 PM Reporting Lab: [address] [address] Performing Lab: [address] [address] PROTEIN,TOTAL 6.7 g/dL 6.0-8.3 ALBUMIN 4.1 g/dL 3.5-5.0 ALKALINE PHOSPHATASE 66 U/L 40-150 AST 14 U/L 5-34 ALT 21 U/L BILIRUBIN, TOTAL 0.4 mg/dL 0.2-1.2 Jun 27, 2023 07:32 AM [place] BASIC METABOLIC PANEL (fasting) Specime n Type: SERUM No comment entered. Ordering Provider: NEHEMIAH DAVIES Report Released Date/Time: Nov 09, 2022 12:33 PM Reporting Lab: [facility] [address] [facility] [address] Performing Lab: [facility] [address] [address] UREA NITROGEN 18 mg/dL 7-25 GLUCOSE 96 mg/dL 65-100 SODIUM 141 mmol/L 135-145 POTASSIUM 4.8 mmol/L 3.5-5.0 CHLORIDE 106 mmol/L 100-110 CO2 28 meq/L 20-30 CREATININE, Serum 1.11 mg/dL 0.50-1.40 eGFR(CKD-EPI 2020) 70 mL/min >60 Jun 27, 2023 07:32 AM [place] MAGNESIUM Specimen Type: SERUM No comment entered. Ordering Provider: NEHEMIAH DAVIES Report Released Date/Time: Nov 09, 2022 12:33 PM Reporting Lab: [facility] [address] [address] Performing Lab: [facility] [address] [address] MAGNESIUM 2.1 mg/dL 1.6-2.6 Jun 27, 2023 07:32 AM [place] VITAMIN B12 Specimen Type: SERUM No comment entered. Ordering Provider: NEHEMIAH DAVIES Report Released Date/Time: Nov 09, 2022 12:33 PM Reporting Lab: [facility] [address] [address] Performing Lab: [facility] [address] [address] VITAMIN B12 591 pg/mL 200-900 Jun 27, 2023 07:32 AM [facility] CBC AND DIFF (AUTO) Specimen Type: BLOOD No comment entered. Ordering Provider: NEHEMIAH DAVIES Report Released Date/Time: Nov 09, 2022 12:33 PM Reporting Lab: [facility] [address] [facility] [address] Performing Lab: [facility] [address] [facility] [address] WBC 8.96 10*3/uL 4.50-11.00 RBC 4.81 10*6/uL 4.23-5.66 HGB 14.0 g/dL 12.8-17 HCT 42.4 39.2-50.4 MCV 88.1 fL 82-99 MCHC 33.0 g/dL 30.8-35.1 PLT 312 10*3/uL 140-360 RDW-CV 12.3 12.0-16.0 [place], Abs 0.59 10*3/uL 0.30-1.10 MCH 29.1 pg 26.2-32.6 Neut % 65.4 43.7-75.8 Lymph % 21.4 14.0-42.3 [place] % 6.6 5.1-13.7 Eos % 4.4 0.4-6.8 [...] BEL ESCALANTE [facility] Radiology Reports: +/- 30 days [...] AM FLUOROSCOPIC NITIN NCE OF NEEDLE/SPINE: DARLINESHAQ Bhakta [id number] -1950 M Exm Date: JUL 17, 2023@11:09 Req Phys: BERNABE PRIETO Pat Loc: CWM/NO/MED REHAB/SPINE INJ (Re Img Loc: [facility]BUILD[facility] 1 Service: Unknown (Case [id number] COMPLETE) FLUOROSCOPIC GUIDANCE OF NEEDLE/S(RAD Detailed) CPT:28971 Reason for Study: transforaminal epidural steroid injection Clinical History: Report Status: Verified Date Reported: JUL 17, 2023 Date Verified: JUL 17, 2023 Rn Faculty E-Sig:/ES/LOU VICTORIA JR Report: Study: Pain injection [...] Primary Interpreting Staff: LOU VICTORIA JR, Radiologist (Rn Faculty) /LOU WASHINGTON JR [place] [facility] Encounter Notes: All associated encounter notes This section contains the clinical notes associated to the Encounter. Date/Time Encounter Note(s) Provider Source Jun 19, 2023 04:26 PM ADDENDUM: LOCAL TITLE: Addendum STANDARD TITLE: ADDENDUM DATE OF NOTE: JUN 19, 2023@16:26:43 ENTRY DATE: JUN 19, 2023@16:26:44 AUTHOR: VIJAYA DURAN EXP COSIGNER: URGENCY: STATUS: COMPLETED [facility] ([phone]) returned message. RN states ordering provider is OOO. Informed RN that the [facility] is unable to provide Xarelto given significant DDI. Recommended consideration for apixaban. RN will review with covering provider 06/20/23. Provided [facility] tele number for questions/concerns and CC fax number for new rx if agreeable. /reba DURAN Signed: 06/19/2023 16:30 Receipt Acknowledged By: 06/20/2023 07:44 /robe/ ALLISON PORTER CPHT Clinical Airplane Engineer --- Original Document --- 06/19/23 PHARMACY ANTICOAGULATION NOTE: recently presented to non-VA ER and was diagnosed with AFib. [facility] received rx for Xarelto 20mg daily. Of note, non-[facility] Cardiology also initiated metoprolol and dronedarone. Spoke to Force via tele and confirmed event and medication changes. Upon review, significant DDI exists b/w Xarelto and dronedarone. Contacted [facility] at [phone] to review. Unable to speak with anyone, LVM requesting call back. Could consider apixaban over rivaroxaban as DDI is less severe. Will review in 3 business days unless non-VA Cardio calls back before then. /reba DURAN Signed: 06/19/2023 11:57 Receipt Acknowledged By: 06/19/2023 12:02 /reba PORTER CPHT Clinical Airplane Engineer 06/19/2023 12:00 /reba ROJO Clinical Airplane Engineer VIJAYA DURAN [facility] ([id number]) Jun 19, 2023 11:51 AM PHARMACY MEDICATION MGT NOTE: LOCAL TITLE: PHARMACY ANTICOAGULATION NOTE STANDARD TITLE: PHARMACY MEDICATION MGT NOTE DATE OF NOTE: JUN 19, 2023@11:51 ENTRY DATE: JUN 19, 2023@11:52:06 AUTHOR: VIJAYA DURAN EXP COSIGNER: URGENCY: STATUS: COMPLETED PHARMACY ANTICOAGULATION NOTE Has ADDENDA recently presented to non-VA ER and was diagnosed with AFib. [facility] received rx for Xarelto 20mg daily. Of note, non-[facility] Cardiology also initiated metoprolol and dronedarone. Spoke to via tele and Force confirmed event and medication changes. Upon review, significant DDI exists b/w Xarelto and dronedarone. Contacted [facility] at [phone] to review. Unable to speak with anyone, M requesting call back. Could consider apixaban over rivaroxaban as DDI is less severe. Will review in 3 business days unless non-[place] Cardio calls back before then. /robe/ VIJAYA DURAN Signed: 06/19/2023 11:57 Receipt Acknowledged By: 06/19/2023 12:02 /robe/ ALLISON PORTER CPHT Clinical Airplane Engineer 06/19/2023 12:00 /robe/ KEITH ROJO Clinical Airplane Engineer 06/19/2023 ADDENDUM STATUS: COMPLETED [facility] ([phone]) returned message. RN states ordering provider is OOO. Informed RN that the [facility] is unable to provide Xarelto given significant DDI. Recommended consideration for apixaban. RN will review with covering provider 06/20/23. Provided [facility] tele number for questions/concerns and CC fax number for new rx if agreeable. /robe/ VIJAYA DURAN Signed: 06/19/2023 16:30 Receipt Acknowledged By: * AWAITING SIGNATURE * ALLISON PORTER [facility] ([id number])
--- OUTSIDE RECORDS SUMMARY | 2024-04-28 10:53 | XMS_ITS | Encounter Summary ---
Author Name [facility] [place] Address [address] [place] [id number] Care Team Providers Care Mine Exploration Engineer Name Role Phone NEHEMIAH CUEVAS Primary Care [...] Name Patient's Relationship to Policy Orellana ANA [facility] Aug 11, 2014 [id number] [phone] DHAVAL SHAQ Wagner PATIENT [facility] BCBS [facility] MEDICARE SUPPLEMEN ARTEMIO [facility] Aug 11, 2014 [id number] ALEJANDROSHAQ COATES [place]IENT [place] SUPPLEMEN ARTEMIO MEDEX 2 Aug 11, 2014 [id number] DHAVAL SHAQ [place] ARTEMIO MEDEX 2 Aug 11, 2014 [id number] [phone] ARCHAMBRENATA SHAQ Wagner [place]PP[place] ARTEMIO MEDEX 2 Aug 11, 2014 [id number] ALEJANDROSHAQ COATES [place] MEDICARE SUPPLEMEN [place] [place] [facility] [place] Aug 11, 2014 [id number] [phone] SHAQ WONGA MCR (WNR) MEDICARE ADVANTAGE [facility] (WNR) Jan 11, 2022 [id number] [phone] LAURIEEA SHAQ Wagner PATIENT USMANA MCR (WNR) MEDICARE ADVANTAGE HUMAN A INSUR [facility] Jan 11, 2022 [id number] [phone] ARCHOCTAVIOEA SHAQ Wagner PATIENT MEDICARE (WNR) MEDICARE (M) PART A Dec 11, 2014 PART A [id number] ARCHOCTAVIOEA SHAQ Wagner PATIENT MEDICARE (WNR) MEDICARE (M) PART B Aug 11, 2014 PART B [id number] ARCHAMBEA SHAQ Wagner PATIENT MEDICARE (WNR) MEDICARE (M) PART A Aug 11, 2014 PART A [id number] [phone] ARCHAMBEA SHAQ Wagner PATIENT MEDICARE (WNR) MEDICARE (M) PART B Aug 11, 2014 PART B [id number] [phone] ARCHAMBEA SHAQ Wagner PATIENT MEDICARE (WNR) MEDICARE (M) PART A Aug 11, 2014 PART A [id number] ARCHAMBEA Bernard,SHAQ PATIENT MEDICARE (WNR) MEDICARE (M) PART B Aug 11, 2014 PART B [id number] [phone] ARCHOCTAVIOEA SHAQ Wagner PATIENT MEDICARE (WNR) MEDICARE (M) PART A Aug 11, 2014 PART A [id number] ARCHAMBEA SHAQ Wagner PATIENT MEDICARE (WNR) MEDICARE (M) PART B Aug 11, 2014 PART B [id number] ARCHOCTAVIOEA SHAQ Wagner [facility] (WNR) MEDICARE ADVANTAGE [facility] (WNR) May 13, 2020 [id number] SHAQ WONG PATIENT Selected Encounter This section includes the information on record at [place] for the Encounter. Date/Time Encounter Type Encounter Description Reason Provider Source May 22, 2023 08:00 AM OFFICE O/P EST LOW 20 MIN PODIATRY ICD-10-CM L60.0 Ingrowing nail RINA CESAR [facility] Encounter Template Text not used by [place] Assessments - Encounter Diagnoses This section includes the primary and secondary diagnoses documented for the Encounter. Date/Time Primary/Secondary Diagnosis Diagnosis Name Provider Source May 22, 2023 08:21 AM PRIMARY Ingrowing nail RINA CESAR [place] May 22, 2023 08:21 AM SECONDARY Pain in left toe(s) RINA CESAR [place] May 22, 2023 08:21 AM SECONDARY Pain in right toe(s) RINA CESAR [place] Plan of Treatment: Future Appointments (+ 6 months) and Future Tests (+/- 45 days) The Plan of Treatment section includes future care activities for the patient from all [place] [facility] This section includes future appointments and future orders which are active, pending or scheduled. Future Appointments This section includes appointments that were scheduled to occur 6 months from the date of the Encounter, up to a maximum of 20 appointments. The data comes from all [place] treatment facilities. Appointment Date/Time Appointment Type Appointme nt Facility Name Jun 24, 2023 08:30 AM AMBULATORY - NONE [facility] [place] [facility] Jul 04, 2023 09:00 AM AMBULATORY - MEDICINE [facility] Jul 05, 2023 08:45 AM AMBULATORY - MEDICINE [place] [facility] [place] [facility] Jul 17, 2023 11:00 AM AMBULATORY - REHAB MEDICIN E [facility] [place] [facility] Aug 12, 2023 07:30 AM AMBULATORY - REHAB MEDICIN E [facility] [facility] Aug 30, 2023 08:45 AM AMBULATORY - MEDICINE [facility] [place] [facility] October 02, 2023 08:00 AM AMBULATORY - REHAB MEDICIN E [facility] [facility] October 08, 2023 11:00 AM AMBULATORY - MEDICINE [facility] October 09, 2023 08:30 AM AMBULATORY - MEDICINE [place] [facility] [place] [facility] Oct 23, 2023 08:30 AM [facility] Nov 19, 2023 08:30 AM AMBULATORY - MEDICINE [place] [facility] [place] [facility] Social History: Smoking Status (Most current) and Tobacco Use (All prior to encounter date) This section includes the most current, and the historical, smoking and tobacco- related health factors from the [place] facility where the Encounter took place. Current Smoking Status This section includes the most current smoking, or tobacco-related health factor, from the [place] facility where the Encounter took place. Date/Time Current Smoking Status Comment Facil ity Oct 31, 2018 11:38 AM VA-TOBACCO QUIT 15 YRS OR MORE [place] Tobacco Use History This section includes a history of the smoking, or tobacco-related health factors, that were collected on or before the date of the Encounter. The data comes from the [place] facility where the Encounter took place. Date/Time Smoking Status/Tobacco Use Comment F acdaniel Oct 31, 2018 11:38 AM VA-TOBACCO QUIT 15 YRS OR MORE [place] Jul 12, 2017 08:51 AM QUIT TOBACCO USE > 7 YEARS AGO [place] Mar 30, 2016 08:29 AM QUIT TOBACCO USE > 7 YEARS AGO [place] Mar 04, 2015 10:57 AM QUIT TOBACCO USE > 7 YEARS AGO [place] Advance Directives: All historical and current Section Date Range: From patient's date of to the date document was created. This section includes ALL of a patient's completed or amended [place] Advance and Rescinded Directives. The entries below indicate that a directive exists for the patient, but an actual copy is not included with this document. The data comes from all [facility]. Date Advance Directives Provider Source Feb 21, 2021 ADVANCE DIRECTIVE BEL ESCALANTE [facility] Encounter Notes: All associated encounter notes This section contains the clinical notes associated to the Encounter. Date/Time Encounter Note(s) Provider Source May 22, 2023 07:24 AM PODIATRY NOTE: LOCAL TITLE: PODIATRY NOTE STANDARD TITLE: PODIATRY NOTE DATE OF NOTE: MAY 22, 2023@07:24 ENTRY DATE: MAY 22, 2023@07:24:52 AUTHOR: RINA CESAR EXP COSIGNER: URGENCY: STATUS: COMPLETED NOTE: HAS RECEIVED BOTH COVID VACCINE DOSES + BOOSTER AT [facility] LAST SEEN for treatment: 12/05/2022 s: Pt. is a 72 yo alert WDWN CAUC MALE who is seen for CONTINUED podiatric examination & CARE for treatment of a presenting complaint of a painful ingrown toenail. Patient had BEEN RENDERING SELF CARE prior to initial visit. THE AREA OF CONCERN IS THE LATERAL DISTAL ASPECT OF THE 3RD RT DIGIT WHERE THERE IS A HYPERKERATOSIS AT THAT SITE BUT NAIL IS NOT THE ISSUE Patient has been referred by: DR. CUEVAS Location of symptoms are: SEE ABOVE WELL CONTRACTED 2ND RT DIGIT WITH MEDIAL DIPJ AREA OF PREVIOUS DISCOMFORT THAT HE HAS BEEN TREATING WELL. Onset of symptoms has been several weeks due to this being a recurrent condition that has been exacerbating over the past few Weeks. Duration of symptoms is intermittently with periods of exacerbation and remission. Description of symptoms is of an ACHING NATURE WITH PAIN LEVEL 6/10 WHEN BAD AND 2-3/10 AFTER HE TREATS THE SITE Contributing factors are: shoes and increased activity. [...] is absence of hair noted. Nails are WNLBUT INCURVATED AND NOT IN NEED OF ATTENTION AT THIS TIME. [...] strength and tone to be equal & symmetrical bilaterally & WNL for an individual of this age and present physical-medical condition. There is pain free ROM at all joints distal to and including the ankle.THERE IS EVIDENCE OF PREVIOUS SURGERY (LEFT ANKLE FUSION) AND NOTED BILATERAL HAV DEFORMITIES-ASYMPTOMATIC AND CONTRACTED 2ND RT DIGIT. NEUROLOGICAL: Exam reveals S/D, vibratory, light touch & proprioception sensations to be equal & symmetrical bilaterally & WNL for an individual of this age and present physical-medical status. Protective sensation utilizing a Barnhill-Elaine lOg monofilament is 10/10 bilateral. BIOMECHANICAL: Exam is deferred at this time due as BEING non-contributory to the cc . 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 NOTE: PATIENT REQUESTED APPLICATION OF AGNO3 FOR LATERAL 3RD RT DIGIT EPONYCHIUM WHICH HAS SOME RESIDUAL HYPERKERATOSIS THAT HE STATES IS 90% BETTER SINCE LAST TREATMENT. ALSO NOTED THAT HE WILL HAD MULTIPLE HT CORRECTIONS RT FOOT APPROX 8 WEEKS AGO BARBI IS DOING QUITE WELL AT THIS TIME P: Treatment consists of TRIMMING-DEBRIDEMENT OF NAILS [...] the underlying medical conditions. REturn to Clinic: 24WEEKS DISCUSSED HIS SURGICAL PROCEDURES HAVING 3TOES RATHER THAN JUST ONE CORRECTED 2 WERE DISLOCATED AND ONE WAS FRACTURED. HAPPY THAT IT IS OVER *DISCUSSED NEW PROTOCOLS AND CALLED MYA TODAY FOR RESCHEDULING I DISCUSSED THE FINDINGS & PLAN WITH PATIENT (UNCHANGED SINCE PREVIOUS VISIT) & PATIENT AGREES AND UNDERSTANDS PLAN Medication Reconciliation: PERFORMED TODAY - SEE BELOW. Outpatient: Has the patient been taking medications as documented in the EMLR? YES: The patient has been taking medications as documented in the EMLR. Essential Medication List for Review used to complete this medication reconciliation. INCLUDED IN THIS LIST: Alphabetical list of active outpatient prescriptions dispensed from this VA (local) and dispensed from another VA or DoD facility (remote) as well as inpatient orders [...] whether with a VA or non-VA provider. JLV Link Data on this list may not be complete. Please check JLV. Allergies/ADRs (Tool #5) FACILITY ALLERGY/ADR -------- [facility] NO KNOWN ALLERGIES [facility] [place] [facility] CODEINE [facility] [place] [facility] NEURONTIN Med Recon NoGlossary (Tool #1) INCLUDED IN THIS LIST: Alphabetical list of active outpatient prescriptions dispensed from this VA (local) and dispensed from another [place] or [facility] facility (remote) as well as inpatient orders (local pending and active), local clinic medications, locally documented non-VA medications, and local prescriptions that have or been discontinued in the past 90 days. Non-VA Meds Last Documented On: Nov 20, 2018 NOTE The display of VA prescriptions dispensed from another VA or DoD facility (remote) is limited to active outpatient prescription entries matched to National Drug File at the originating site and may not include some items such as investigational drugs, compounds, etc. NOT INCLUDED IN THIS LIST: Medications self-entered by the patient into personal health records (i.e. LOOK[employer]) are NOT included in this list. Non-VA medications documented outside this [place], remote inpatient orders (regardless of status) and remote clinic medications are NOT included in this list. The patient and provider must always discuss medications the patient is taking, regardless of where the medication was dispensed or obtained. Non-VA ACETAMINOPHEN 500MG TAB TAKE TWO TABLETS BY MOUTH THREE TIMES DAILY NEEDED Medication prescribed by Non-VA provider. 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 Rx# [id number] Last Released: 04/03/23 Qty/Days Supply: Rx Expiration Date: 09/05/23 Refills Remainin Indication: FOR WIDE-ANGLE GLAUCOMA OUTPT LIDOCAINE 5% PATCH (Status = Active) APPLY 1 PATCH TOPICALLY ONCE DAILY FOR NERVE PAIN (LEAVE PATCH ON FOR 12 HOURS, THEN REMOVE PATCH) Rx# [id number] Last Released: 11/12/22 Qty/Days Supply: Rx Expiration Date: 09/04/23 Refills Remainin Indication: FOR NERVE PAIN OUTPT LOVASTATIN 20MG TAB (Status = Active) TAKE ONE TABLET BY MOUTH AT BEDTIME FOR CHOLESTEROL -- AVOID GRAPEFRUIT JUICE Rx# [id number] Last Released: 04/12/23 Qty/Days Supply: Rx Expiration Date: 10/10/23 Refills Remainin OUTPT NUTRITION SUPL ENSURE PLUS/VANILLA LIQ (Status = Discontinued) DRINK 1 CAN BY MOUTH TWICE DAILY Rx# [id number] Last Released: 03/04/23 Qty/Days Supply: Rx Expiration Date: 03/28/23 Refills Remainin OUTPT NUTRITION SUPL ENSURE PLUS/VANILLA LIQ (Status = Active) DRINK 1 CAN BY MOUTH TWICE DAILY Rx# [id number] Last Released: 05/07/23 Qty/Days Supply: Rx Expiration Date: 04/29/24 Refills Remainin OUTPT OMEPRAZOLE 20MG EC CAP (Status = Active) TAKE TWO CAPSULES BY MOUTH EVERY MORNING 30 MINUTES BEFORE BREAKFAST Rx# [id number] Last Released: 04/12/23 Qty/Days Supply: Rx Expiration Date: 09/22/23 Refills Remainin OUTPT ONDANSETRON HCL 4MG TAB (Status = Discontinued) TAKE ONE TABLET BY MOUTH ONCE DAILY NEEDED FOR VOMITING/NAUSEA Rx# [id number] Last Released: 03/16/22 Qty/Days Supply: Rx Expiration Date: 03/16/23 Refills Remainin OUTPT ONDANSETRON HCL 4MG TAB (Status = Active) TAKE ONE TABLET BY MOUTH ONCE DAILY NEEDED FOR VOMITING/NAUSEA Rx# [id number] Last Released: 04/01/23 Qty/Days Supply: Rx Expiration Date: 03/29/24 Refills Remainin OUTPT OXYCODONE HCL 5MG/APAP 325MG TAB (Status = ) TAKE 1 TABLET BY MOUTH THREE TIMES A DAY FOR PAIN Rx# [id number] Last Released: 02/11/23 Qty/Days Supply: Rx Expiration Date: 03/08/23 Refills Remainin Indication: FOR PAIN OUTPT OXYCODONE HCL 5MG/APAP 325MG TAB (Status = Discontinued) TAKE 1 TABLET BY MOUTH THREE TIMES A DAY FOR PAIN Rx# [id number] Last Released: 03/13/23 Qty/Days Supply: Rx Expiration Date: 04/07/23 Refills Remainin Indication: FOR PAIN OUTPT OXYCODONE HCL 5MG/APAP 325MG TAB (Status = Discontinued) TAKE 1 TABLET BY MOUTH THREE TIMES A DAY FOR PAIN Rx# [id number] Last Released: Qty/Days Supply: Rx Expiration Date: 05/02/23 Refills Remainin Indication: FOR PAIN OUTPT OXYCODONE HCL 5MG/APAP 325MG TAB (Status = Discontinued) TAKE 1 TABLET BY MOUTH THREE TIMES DAILY NEEDED FOR PAIN (NEXT FILL 05/10/23) Rx# [id number] Last Released: 04/12/23 Qty/Days Supply: Rx Expiration Date: 05/10/23 Refills Remainin Indication: FOR PAIN OUTPT OXYCODONE HCL 5MG/APAP 325MG TAB (Status = Active) TAKE 1 TABLET BY MOUTH THREE TIMES DAILY NEEDED FOR PAIN (NEXT FILL 06/07/23) Rx# [id number] Last Released: 05/09/23 Qty/Days Supply: 54/28 Rx Expiration Date: 06/06/23 Refills Remainin Indication: FOR PAIN OUTPT ROPINIROLE HCL 0.25MG TAB (Status = Active) TAKE ONE TABLET BY MOUTH DAILY Rx# [id number] Last Released: 03/13/23 Qty/Days Supply: Rx Expiration Date: 11/09/23 Refills Remainin SUPPLIES /robe/ RINA CESAR DPM CABLE TOOL OPERATOR Signed: 05/22/2023 08:22 RINA CESAR [place]
--- OUTSIDE RECORDS SUMMARY | 2024-04-28 10:53 | XMS_ITS | Encounter Summary ---
Author Name Department [place] Organization [place] Address [address] [place] [address] Care Team Providers Care Movie Shot Cameraman Name Role Phone NEHEMIAH CUEVAS Primary Care [...] Name Patient's Relationship to Policy [facility] Aug 11, 2014 [id number] DHAVAL SHAQ Wagner PATIENT [facility] MED[facility] SUPPLEMEN [facility]EMIO [facility] Aug 11, 2014 [id number] DHAVAL SHAQ Wagner [facility] SUPPLEMEN ARTEMIO MEDEX 2 Aug 11, 2014 [id number] DHAVAL SHAQ Wagner [facility] SUPPLEMEN ARTEMIO MEDEX 2 Aug 11, 2014 [id number] [phone] ARCHAMBRENATA SHAQ Wagner PATIENT [place] MED[place] SUPPLEMEN ARTEMIO MEDEX 2 Aug 11, 2014 [id number] [phone] ARCHAMBEA SHAQ Wagner PATIENT [place] MEDICARE SUPPLEMEN [employer] [place] [employer] [place] Aug 11, 2014 [id number] SHAQ WONG PATIENT USMANA [facility] (WNR) MEDICARE ADVANTAGE HUMAN A INSUR [place] [facility] Jan 11, 2022 [id number] [phone] ARCHOCTAVIOEA SHAQ Wagner PATIENT USMANA MCR (WNR) MEDICARE ADVANTAGE [facility] (WNR) Jan 11, 2022 [id number] [phone] ARCHAMBEA SHAQ Wagner PATIENT MEDICARE (WNR) MEDICARE () PART A Dec 11, 2014 PART A [id number] ARCHAMBEA SHAQ Wagner PATIENT MEDICARE (WNR) MEDICARE () PART A Aug 11, 2014 PART A [id number] ARCHAMBEA SHAQ Wagner PATIENT MEDICARE (WNR) MEDICARE () PART B Aug 11, 2014 PART B [id number] ARCHAMBEA SHAQ Wagner PATIENT MEDICARE (WNR) MEDICARE () PART A Aug 11, 2014 PART A [id number] ARCHAMBEA Bernard,SHAQ PATIENT MEDICARE (WNR) MEDICARE () PART B Aug 11, 2014 PART B [id number] [phone] ARCHAMBEA Bernard,SHAQ PATIENT MEDICARE (WNR) MEDICARE () PART A Aug 11, 2014 PART A [id number] [phone] ARCHAMBEA Bernard,SHAQ PATIENT MEDICARE (WNR) MEDICARE () PART B Aug 11, 2014 PART B [id number] ARCHAMBEA U,SHAQ PATIENT MEDICARE (WNR) MEDICARE (M) PART B Aug 11, 2014 PART B [id number] [phone] ARCHAMBEA SHAQ Wagner [facility] (WNR) MEDICARE ADVANTAGE [facility] (WNR) May 13, 2020 [id number] ARCHAMBEA SHAQ Wagner PATIENT Selected Encounter This section includes the information on record at [place] for the Encounter. Date/Time Encounter Type Encounter Description Reason Pro vider Source May 10, 2023 01:17 PM Outpatient Encounter PODIATRY IHE Encounter Template Text not used by [place] Plan of Treatment: Future Appointments (+ 6 months) and Future Tests (+/- 45 days) The Plan of Treatment section includes future care activities for the patient from all [place] [facility] This section includes future appointments and future orders which are active, pending or scheduled. Future Appointments This section includes appointments that were scheduled to occur 6 months from the date of the Encounter, up to a maximum of 20 appointments. The data comes from all [place] treatment facilities. Appointment Date/Time Appointment Type Appointme nt Facility Name May 22, 2023 08:00 AM AMBULATORY [facility] Jun 24, 2023 08:30 AM AMBULATORY - NONE [place] [facility] [place] [facility] Jul 04, 2023 09:00 AM AMBULATORY [facility] Jul 05, 2023 08:45 AM AMBULATORY - MEDICINE [place] [facility] [place] [facility] Jul 17, 2023 11:00 AM AMBULATORY - REHAB MEDICIN E [facility] [place] [facility] Aug 12, 2023 07:30 AM AMBULATORY - REHAB MEDICIN E [facility] [place] [facility] Aug 30, 2023 08:45 AM AMBULATORY - MEDICINE [place] [facility] [place] [facility] October 02, 2023 08:00 AM AMBULATORY - REHAB MEDICIN E [facility] [place] [facility] October 08, 2023 11:00 AM AM[facility]ULATORY [facility] October 09, 2023 08:30 AM AMBULATORY - MEDICINE [place] [facility] [place] [facility] Oct 23, 2023 08:30 AM AMBULATORY - MEDICINE [facility] Social History: Smoking Status (Most current) and Tobacco Use (All prior to encounter date) This section includes the most current, and the historical, smoking and tobacco- related health factors from the [place] facility where the Encounter took place. Current Smoking Status This section includes the most current smoking, or tobacco-related health factor, from the [place] facility where the Encounter took place. Date/Time Current Smoking Status Comment Lor gonzalez Mar 14, 2022 03:02 PM VA-TOBACCO QUIT 15 YRS OR MORE [facility] Tobacco Use History This section includes a history of the smoking, or tobacco-related health factors, that were collected on or before the date of the Encounter. The data comes from the [place] facility where the Encounter took place. Date/Time Smoking Status/Tobacco Use Comment F acility Mar 14, 2022 03:02 PM VA-TOBACCO QUIT 15 YRS OR MORE [facility] Feb 08, 2021 09:00 AM VA-TOBACCO FORMER USER [place] [facility] [place] [facility] Feb 08, 2021 09:00 AM VA-TOBACCO QUIT 15 YRS OR MORE [place] [facility] [place] [facility] October 09, 2019 01:12 PM VA-TOBACCO FORMER USER [place] [facility] [place] [facility] October 09, 2019 01:12 PM VA-TOBACCO QUIT 5 TO < 15 YRS [facility] Advance Directives: All historical and current Section Date Range: From patient's date of to the date document was created. This section includes ALL of a patient's completed or amended [place] Advance and Rescinded Directives. The entries below indicate that a directive exists for the patient, but an actual copy is not included with this document. The data comes from all [place] facilities. Date Advance Directives Provider Source Feb 21, 2021 ADVANCE DIRECTIVE BEL ESCALANTE [facility] Encounter Notes: All associated encounter notes This section contains the clinical notes associated to the Encounter. Date/Time Encounter Note(s) Provider Source May 10, 2023 01:17 PM ADMINISTRATIVE NOT E: LOCAL TITLE: ADMINISTRATIVE NOTE STANDARD TITLE: ADMINISTRATIVE NOTE DATE OF NOTE: MAY 10, 2023@13:17 ENTRY DATE: MAY 10, 2023@13:17:10 AUTHOR: TELMA CERVANTES EXP COSIGNER: URGENCY: STATUS: COMPLETED MSA spoke with and reminded of podiatry appt on 05/22/2023 8am. Location confirmed- [place] aware and agreeable /robe/ TELMA CERVANTES BURNER TECHNICIAN Signed: 05/10/2023 13:17 TELMA CERVANTES [place]
--- OUTSIDE RECORDS SUMMARY | 2024-04-28 10:53 | XMS_ITS | Encounter Summary ---
Author Name [facility] [place] Organization [place] Address [address] [place] [address] Care Team Providers Care Science Instructor Name Role Phone NEHEMIAH CUEVAS Primary Care [...] ANA [facility] Aug 11, 2014 [id number] [phone] DHAVAL SHAQ Wagner PATIENT [facility] MEDIC[facility] SUPPLEMEN ARTEMIO [facility] Aug 11, 2014 [id number] DHAVAL SHAQ Wagner [facility] SUPPLEMEN ARTEMIO MEDEX 2 Aug 11, 2014 [id number] DHAVAL SHAQ Wagner [facility] SUPPLEMEN ARTEMIO MEDEX 2 Aug 11, 2014 [id number] [phone] DHAVAL SHAQ Wagner PATIENT [place] SUPPLEMEN ARTEMIO MEDEX 2 Aug 11, 2014 [id number] ARCHAMBEA SHAQ Wagner PATIENT [place] MEDICARE SUPPLEMEN [employer] [place] [facility] [place] Aug 11, 2014 [id number] [phone] LAURIEEA SHAQ Wagner PATIENT USMANA [facility] (WNR) MEDICARE ADVANTAGE [facility] (WNR) Jan 11, 2022 [id number] [phone] ARCHAMBEA SHAQ Wagner PATIENT USMANA [facility] (WNR) MEDICARE ADVANTAGE HUMAN A INSUR ANCE COM Jan 11, 2022 [id number] [phone] ARCHAMBEA U,SHAQ PATIENT MEDICARE (WNR) MEDICARE () PART A Dec 11, 2014 PART A [id number] ARCHAMBEA U,SHAQ PATIENT MEDICARE (WNR) MEDICARE () PART B Aug 11, 2014 PART B [id number] [phone] ARCHAMBEA U,SHAQ PATIENT MEDICARE (WNR) MEDICARE () PART A Aug 11, 2014 PART A [id number] ARCHAMBEA U,SHAQ PATIENT MEDICARE (WNR) MEDICARE () PART B Aug 11, 2014 PART B [id number] ARCHAMBEA U,SHAQ PATIENT MEDICARE (WNR) MEDICARE () PART A Aug 11, 2014 PART A [id number] ARCHAMBEA U,SHAQ PATIENT MEDICARE (WNR) MEDICARE () PART B Aug 11, 2014 PART B [id number] [phone] ARCHAMBEA U,SHAQ PATIENT MEDICARE (WNR) MEDICARE () PART A Aug 11, 2014 PART A [id number] [phone] ARCHAMBEA U,SHAQ PATIENT MEDICARE (WNR) MEDICARE () PART B Aug 11, 2014 PART B [id number] ARCHAMBEA SHAQ Wagner PATIENT [facility] (WNR) MEDICARE ADVANTAGE [facility] (WNR) May 13, 2020 [id number] ARCHAMBEA USHAQ PATIENT Selected Encounter This section includes the information on record at MD for the Encounter. Date/Time Encounter Type Encounter Description Reason Pro vider Source Jun 19, 2023 03:00 PM Outpatient Encounter ADMIN PAT ACTIVTIES (MASNONCT) IHE Encounter Template Text not used by MD Plan of Treatment: Future Appointments (+ 6 months) and Future Tests (+/- 45 days) The Plan of Treatment section includes future care activities for the patient from all MD treatmentmulticare allen[facility] hospitalities. This section includes future appointments and [...] AMBULATORY - NONE [facility] [place] [facility] Jul 04, 2023 09:00 AM [facility]ORY - [facility]ICINE [facility] Jul 05, 2023 08:45 AM AMBULATORY - MEDICINE [facility] [place] [facility] Jul 17, 2023 11:00 AM AMBULATORY - REHAB MEDICIN E [facility] [place] [facility] Aug 12, 2023 07:30 AM AMBULATORY - REHAB MEDICIN E [facility] [place] [facility] Aug 30, 2023 08:45 AM AMBULATORY - MEDICINE [place] [facility] [place] [facility] October 02, 2023 08:00 AM AMBULATORY - REHAB MEDICIN E [facility] [place] [facility] October 08, 2023 11:00 AM [facility]ATORY [facility]IC[facility] October 09, 2023 08:30 AM AMBULATORY - MEDICINE [facility] [place] [facility] Oct 23, 2023 08:30 AM [facility]ATORY - MEDICINE [facility] Nov 19, 2023 08:30 AM AMBULATORY - MEDICINE [place] [facility] [place] [facility] Nov 28, 2023 07:30 AM AMBULATORY - REHAB MEDICIN E [facility] [place] [facility] Lab Results: +/- 30 days of the encounter This section includes the Chemistry and Hematology Lab Results on record with MD for the patient. Radiology Reports and Pathology Reports are provided separately, in subsequent sections. Lab Results This section contains the Chemistry/Hematology Results that were resulted 30 days before or 30 daysafter the date of the Encounter. Date/Time Source Result Type Result - Unit Interpretation Reference Range Comment Jun 27, 2023 07:32 AM PATERSON LIPID PANEL FASTING Specimen Type: SERUM No comment entered. Ordering Provider: NEHEMIAH DAVIES Report Released Date/Time: Nov 09, 2022 12:33 PM Reporting [facility] [address] [address] Performing [facility]: [facility] [address] [address] CHOLESTEROL 156 mg/dL TRIGLYCERIDE 83 mg/dL 0-150 LDL calculated 78 mg/dL 0-129 CHOL/HDL 2.6 HDL CHOLESTEROL 61 mg/dL H 40-60 Jun 27, 2023 07:32 AM PATERSON VITAMIN D (25-OH) Specimen Type: SERUM No comment entered. Ordering Provider: NEHEMIAH DAVIES Report Released Date/Time: Nov 09, 2022 12:33 PM [facility] [address] [facility]: [facility] [address] VITAMIN D (25-OH) 48 ng/mL 20-50 Jun 27, 2023 07:32 AM PATERSON LIVER FUNCTION Specimen Type: SERUM No comment entered. Ordering Provider: NEHEMIAH DAVIES Report Released Date/Time: Nov 09, 2022 12:33 PM Reporting [facility] [address] [facility]forming [facility] [address] [address] PROTEIN,TOTAL 6.7 g/dL 6.0-8.3 ALBUMIN 4.1 g/dL 3.5-5.0 ALKALINE PHOSPHATASE 66 U/L 40-150 AST 14 U/L 5-34 ALT 21 U/L BILIRUBIN, TOTAL 0.4 mg/dL 0.2-1.2 Jun 27, 2023 07:32 AM PATERSON BASIC METABOLIC PANEL (fasting) Specime n Type: SERUM No comment entered. Ordering Provider: NEHEMIAH DAVIES Report Released Date/Time: Nov 09, 2022 12:33 PM Reporting [facility] [address] [address] Performing [facility]: [facility] [address] [address] UREA NITROGEN 18 mg/dL 7-25 GLUCOSE 96 mg/dL 65-100 SODIUM 141 mmol/L 135-145 POTASSIUM 4.8 mmol/L 3.5-5.0 CHLORIDE 106 mmol/L 100-110 CO2 28 meq/L 20-30 CREATININE, Serum 1.11 mg/dL 0.50-1.40 eGFR(CKD-EPI 2020) 70 mL/min >60 Jun 27, 2023 07:32 AM PATERSON MAGNESIUM Specimen Type: SERUM No comment entered. Ordering Provider: NEHEMIAH DAVIES Report Released Date/Time: Nov 09, 2022 12:33 PM Reporting [facility] [address] [address] Performing Lab: [address] [address] MAGNESIUM 2.1 mg/dL 1.6-2.6 Jun 27, 2023 07:32 AM PATERSON VITAMIN B12 Specimen Type: SERUM No comment entered. Ordering Provider: NEHEMIAH DAVIES Report Released Date/Time: Nov 09, 2022 12:33 PM Reporting [facility] [address] [address] Performing [facility] [address] VITAMIN B12 591 pg/mL 200-900 Jun 27, 2023 07:32 AM PATERSON CBC AND DIFF (AUTO) Specimen Type: BLOOD No comment entered. Ordering Provider: NEHEMIAH DAVIES Report Released Date/Time: Nov 09, 2022 12:33 PM Reporting Lab: [address] [address] Performing Lab: [facility] [address] [facility] [address] WBC 8.96 10*3/uL 4.50-11.00 RBC 4.81 10*6/uL 4.23-5.66 HGB 14.0 g/dL 12.8-17 HCT 42.4 39.2-50.4 MCV 88.1 fL 82-99 MCHC 33.0 g/dL 30.8-35.1 PLT 312 10*3/uL 140-360 RDW-CV 12.3 12.0-16.0 [place], Abs 0.59 10*3/uL 0.30-1.10 MCH 29.1 pg 26.2-32.6 Neut % 65.4 43.7-75.8 Lymph % 21.4 14.0-42.3 [place] % 6.6 5.1-13.7 Eos % 4.4 0.4-6.8 [...] and tobacco- related health factors from the MD facility where the Encounter took place. Current Smoking Status This section includes the most current smoking, or tobacco-related health factor, from the [place] facility where the Encounter took place. Date/Time Current Smoking Status Comment Facil ity Mar 14, 2022 03:02 PM VA-TOBACCO FORMER USER [facility] Tobacco Use History This section includes a history of the smoking, or tobacco-related health factors, that were collected on or before the date of the Encounter. The data comes from the [place] facility where the Encounter took place. Date/Time Smoking Status/Tobacco Use Comment F acility Mar 14, 2022 03:02 PM VA-TOBACCO QUIT 15 YRS OR MORE [facility] [place] [facility] Feb 08, 2021 09:00 AM VA-TOBACCO FORMER USER [place] [facility] [place] [facility] Feb 08, 2021 09:00 AM VA-TOBACCO QUIT 15 YRS OR MORE [facility] [place] [facility] October 09, 2019 01:12 PM VA-TOBACCO [facility] October 09, 2019 01:12 PM VA-TOBACCO QUIT 5 TO < 15 YRS [facility] Advance Directives: All historical and current [...] Feb 21, 2021 ADVANCE DIRECTIVE BEL ESCALANTE [facility] Radiology Reports: +/- 30 days of [...] the Encounter. The data comes from all MD treatment facilities. Date/Time Radiology Report Provider Source Jul 17, 2023 11:09 AM FLUOROSCOPIC NITIN NCE OF NEEDLE/SPINE: SHAQ GREGORIO [id number] M Ex Date: JUL 17, 2023@11:09 Req Phys: BERNABE PRIETO THI Pat Loc: CWM/NO/MED REHAB/SPINE INJ (Re Img Loc: [facility] 1 Service: Unknown (Case [id number] COMPLETE) FLUOROSCOPIC GUIDANCE OF NEEDLE/S(RAD Detailed) CPT:64873 Reason for Study: transforaminal epidural steroid injection Clinical History: Report Status: Verified Date Reported: JUL 17, 2023 Date Verified: JUL 17, 2023 Nurse Wound E-Sig:/ES/LOU VICTORIA JR Report: Study: Pain injection [...] Primary Interpreting Staff: LOU VICTORIA JR, Radiologist (Nurse Wound) /LOU WASHINGTON JR [facility] Encounter Notes: All associated encounter notes This section contains the clinical notes associated to the Encounter. Date/Time Encounter Note(s) Provider Source Jun 19, 2023 03:01 PM PHARMACY OUTPATIENT MEDICATION MGT NOTE: LOCAL TITLE: [facility] PRESCRIPTION NOTE STANDARD TITLE: PHARMACY OUTPATIENT MEDICATION MGT NOTE DATE OF NOTE: JUN 19, 2023@15:01 ENTRY DATE: JUN 19, 2023@15:01:20 AUTHOR: JOHANA NYE COSIGNER: URGENCY: STATUS: COMPLETED Patient presented to MD pharmacy requesting the below medication/prescription be filled; or the below medication was faxed to MD pharmacy requesting to be filled for SHAQ GREGORIO THE BELOW MEDICATION(S) ARE NON-FORMULARY === NON-MD PRESCRIPTION DETAILS === Rx written:06/18/23 Medication:DRONEDARONE 400MG Dose/Directions:1 TABLET TWICE DAILY Quantity:180 Refills:90 Prescriber:ORVILLE RADER Practice site:[facility] CARDIOVASCULAR LULI: NPI (if available):[id number] === ELIGIBILITY TO FILL NON-VA RX: === Community Care Consult:NO- HOSPITAL DISCHARGE Type of Service Consult:CARDIOLOGY Medical history relevant to request:AFIB RVR === ACTION TAKEN/STATUS OF NON-VA RX: === [ ] Initiate request for Non-formulary or Prior Authorization medication ( ) Contacted provider's office to consider a formulary therapeutic alternative ( ) Contacted provider's office for additional necessary information to review PA & N/F ( ) Requested PA & NF to be reviewed by Clinical Pharmacist Specialist (X ) Medication approved and processed Inclusion Criteria The answers to ALL of the following must be fulfilled in order to meet criteria. [X]Restricted to MD / MD [facility] Cardiology provider or other locally designated provider for initial prescription [X]Symptomatic recurrent paroxysmal or persistent atrial fibrillation documented by electrocardiogram (ECG) within the past 6 months, with a second ECG in sinus rhythm or pending cardioversion [X] Intolerance (e.g., unmanageable significant adverse event), contraindication to, or ineffective therapy with at least one other antiarrhythmic agent used for the rhythm management of atrial fibrillation Patient failed rate control carvedilol while hospitalized Provider states patient is not a candidate for amiodarone or flecainide due to CAD and pulmonary concerns ( ) Medication does not meet criteria and therapeutic alternative suggested Time Spent:20 min /robe/ JOHANA NYE [facility] CLINICAL PHARMACIST Signed: 06/19/2023 15:11 JOHANA NYE [facility]
--- OUTSIDE RECORDS SUMMARY | 2024-04-28 10:53 | XMS_ITS | Encounter Summary ---
Author Name [place] Address [address] [place] [address] Care Team Providers Care Engineering Manager Electronics Name Role Phone NEHEMIAH NOEL Primary Care [...] Name Patient's Relationship to Policy [facility]rellana [facility] Aug 11, 2014 [id number] DHAVAL SHAQ Wagner PATIENT ANA BCBS [facility] MEDICARE SUPPLEMEN ARTEMIO [facility] Aug 11, 2014 [id number] DHAVAL SHAQ Wagner PATIENT [place] MEDIC[place] SUPPLEMEN ARTEMIO MEDEX 2 Aug 11, 2014 [id number] DHAVAL SHAQ Wagner PATIENT [facility] [place] MEDICARE SUPPLEMEN ARTEMIO MEDEX 2 Aug 11, 2014 [id number] [phone] ARCHSTEPHANIA SHAQ Wagner PATIENT [place] MED[place] SUPPLEMEN ARTEMIO MEDEX 2 Aug 11, 2014 [id number] ARCHOCTAVIOEA SHAQ Wagner [facility] [place] MEDICARE SUPPLEMEN [employer] [place] [place] Aug 11, 2014 [id number] SHAQ WONG PATIENT USMANA [facility] (WNR) MEDICARE ADVANTAGE HUMAN A INSUR [place] [facility] Jan 11, 2022 [id number] [phone] ARCHOCTAVIOEA SHAQ Wagner PATIENT USMANA [facility] (WNR) MEDICARE ADVANTAGE [facility] (WNR) Jan 11, 2022 [id number] [phone] ARCHAMBEA SHAQ Wagner PATIENT MEDICARE (WNR) MEDICARE (M) PART A Dec 11, 2014 PART A [id number] ARCHAMBEA SHAQ Wagner PATIENT MEDICARE (WNR) MEDICARE () PART A Aug 11, 2014 PART A [id number] ARCHAMBEA SHAQ Wagner PATIENT MEDICARE (WNR) MEDICARE () PART B Aug 11, 2014 PART B [id number] ARCHAMBEA SHAQ Wagner PATIENT MEDICARE (WNR) MEDICARE () PART B Aug 11, 2014 PART B [id number] [phone] ARCHAMBEA SHAQ Wagner PATIENT MEDICARE (WNR) MEDICARE () PART A Aug 11, 2014 PART A [id number] ARCHAMBEA SHAQ Wagner PATIENT MEDICARE (WNR) MEDICARE () PART B Aug 11, 2014 PART B [id number] ARCHAMBEA SHAQ Wagner PATIENT MEDICARE (WNR) MEDICARE () PART A Aug 11, 2014 PART A [id number] [phone] ARCHAMBEA SHAQ Wagner PATIENT MEDICARE (WNR) MEDICARE (M) PART B Aug 11, 2014 PART B [id number] ARCHAMBEA SHAQ Wagner [facility] (WNR) MEDICARE ADVANTAGE [facility] (WNR) May 13, 2020 [id number] [phone] ARCHAMBEA SHAQ Wagner PATIENT Selected Encounter This section includes the information on record at [place] for the Encounter. Date/Time Encounter Type Encounter Description Reason Pro vider Source May 24, 2023 10:06 AM Outpatient Encounter PRIMARY CARE/MEDICINE IHE Encounter Template Text not used by [place] Plan of Treatment: Future Appointments (+ 6 months) and Future Tests (+/- 45 days) The Plan of Treatment section includes future care activities for the patient from all [place] treatmentfacilities. This section includes future appointments and future orders which are active, pending or scheduled. Future Appointments This section includes appointments that were scheduled to occur 6 months from the date of the Encounter, up to a maximum of 20 appointments. The data comes from all [place] treatment facilities. Appointment Date/Time Appointment Type Appointme nt Facility Name Jun 24, 2023 08:30 AM AMBULATORY - NONE [facility] [place] [facility] Jul 04, 2023 09:00 AM AMBULATORY - MEDICINE [facility] Jul 05, 2023 08:45 AM AMBULATORY - MEDICINE [facility] [place] [facility] Jul 17, 2023 11:00 AM AMBULATORY - REHAB MEDICIN E [facility] [place] [facility] Aug 12, 2023 07:30 AM AMBULATORY - REHAB MEDICIN E [facility] [facility] Aug 30, 2023 08:45 AM AMBULATORY - MEDICINE [place] [facility] [place] [facility] October 02, 2023 08:00 AM AMBULATORY - REHAB MEDICIN E [facility] [facility] October 08, 2023 11:00 [facility] October 09, 2023 08:30 AM AMBULATORY - MEDICINE [place] [facility] [facility] Oct 23, 2023 08:30 AM AMBULATORY - MEDICINE [facility] Nov 19, 2023 08:30 AM AMBULATORY - MEDICINE [place] [facility] [facility] Social History: Smoking Status (Most current) and Tobacco Use (All prior to encounter date) This section includes the most current, and the historical, smoking and tobacco- related health factors from the VA facility where the Encounter took place. Current Smoking Status This section includes the most current smoking, or tobacco-related health factor, from the [place] facility where the Encounter took place. Date/Time Current Smoking Status Comment Lor gonzalez Mar 14, 2022 03:02 PM VA-TOBACCO FORMER USER [facility] [place] [facility] Tobacco Use History This section includes a history of the smoking, or tobacco-related health factors, that were collected on or before the date of the Encounter. The data comes from the [place] facility where the Encounter took place. Date/Time Smoking Status/Tobacco Use Comment F acility Mar 14, 2022 03:02 PM VA-TOBACCO [facility]IT 15 YRS [facility] Feb 08, 2021 09:00 AM [facility] Feb 08, 2021 09:00 AM VA-TOBACCO QUIT 15 YRS OR MORE [facility] October 09, 2019 01:12 PM VA-TOBACCO [facility] October 09, 2019 01:12 PM VA-TOBACCO QUIT 5 TO < 15 YRS [facility] Advance Directives: All historical and current Section Date Range: From patient's date of to the date document was created. This section includes ALL of a patient's completed or amended VA Advance and Rescinded Directives. The entries below indicate that a directive exists for the patient, but an actual copy is not included with this document. The data comes from all [place] facilities. Date Advance Directives Provider Source Feb 21, 2021 ADVANCE DIRECTIVE BEL ESCALANTE [facility] Encounter Notes: All associated encounter notes This section contains the clinical notes associated to the Encounter. Date/Time Encounter Note(s) Provider Source May 24, 2023 10:08 AM ACCOUNTING OF DISC LOSURES NOTE: LOCAL TITLE: STATE PRESCRIPTION DRUG MONITORING PROGRAM STANDARD TITLE: ACCOUNTING OF DISCLOSURES NOTE DATE OF NOTE: MAY 24, 2023@10:08:32 ENTRY DATE: MAY 24, 2023@10:08:32 AUTHOR: RAVINDER BUNN EXP COSIGNER: NEHEMIAH NOEL URGENCY: STATUS: COMPLETED This PDMP query was submitted by Ravinder Bunn LPN on behalf of Nehemiah Noel The clinical justification for this PDMP query is to review controlled substances prescribed outside of the [place], and any additional information that may become available, as an important component of standard clinical care, and in accordance with [facility] policy. Patient information was shared with the PDMP [facility] [place]. The VA prescriber, for which I am a delegate, will be alerted of these PDMP findings through co-signature of this progress note. No prescription(s) for controlled substances outside the VA were found in the last 90 days. /robe/ RAVINDER BUNN RN REGISTERED NURSE Signed: 05/24/2023 10:08 /robe/ NEHEMIAH NOEL MD PHYSICIAN Cosigned: 05/27/2023 19:33 RAVINDER BUNN IBAPAH May 24, 2023 10:06 AM PAIN MEDICATION MG T NOTE: LOCAL TITLE: OPIOID/CONTROLLED SUBSTANCE NOTE STANDARD TITLE: PAIN MEDICATION MGT NOTE DATE OF NOTE: MAY 24, 2023@10:06 ENTRY DATE: MAY 24, 2023@10:06:58 AUTHOR: RAVINDER BUNN EXP COSIGNER: URGENCY: STATUS: COMPLETED OPIOID/CONTROLLED SUBSTANCE NOTE Controlled Substance Renewal Request REQUESTED MEDICATIONS: OXYCODONE HCL NOT SA TAB 5MG TAKE ONE TABLET BY MOUTH TWICE DAILY NEEDED AND TAKE ONE TABLET ONCE DAILY NEEDED Quantity: 84 Refills: 0 MAIL TO PATIENT A valid consent for Long-Term Opioid therapy for Pain is required for opioid duration of 90 days or greater. CONSENT FOR LONG-TERM OPIOIDS FOR PAIN Apr 21, 2015 Prescription Drug Monitoring Program (PDMP): A PDMP note is required at every new prescription for a controlled substance. PDMP HISTORY 1 YEAR Info Disclosed: Patient Demographics Purpose: Accessing Prescription Drug Monitoring Program (PDMP) databases for review of controlled substances prescribed outside of the VA, and any additional information that may become available, as an important component of standard clinical care and in accordance with [facility] policy. 05/30/22 09:04 Ramsey Patel PDMP [facility] [place] 05/30/22 10:58 Liliya Noel PDMP [facility] [place] 06/28/22 15:15 Liliya Noel PDMP [facility] [place] 07/27/22 11:42 Haritha Nevarez PDMP [facility] [place] 09/04/22 16:11 Ramsey Patel PDMP [facility] [place] 10/05/22 13:14 Ramsey Patel PDMP [facility] [place] 11/08/22 09:34 Nadazdin-Bosjinnyic,Ognjenk PDMP [facility] [place] 12/07/22 14:07 Ramsey Patel PDMP [facility] [place] 01/07/23 08:26 Nadazdin-Boskovic,Ognjenk PDMP [facility] [place] 01/07/23 08:27 Nadazdin-Boskovic,Ognjenk PDMP [facility] [place] 02/05/23 13:11 Ramsey Patel PDMP [facility] [place] 03/06/23 13:07 HimanshuDidier Shaq PDMP [facility] [place] 03/08/23 09:53 Nadazdin-Boskovic,Ognjenk PDMP [facility] [place] 04/01/23 08:33 Amy Pittman PDMP [facility] [place] 04/01/23 08:35 Amy Pittman PDMP [facility] [place] 05/09/23 12:16 Zheng Bardales PDMP [facility] [place] Urine Drug Screen: A urine drug screen is required prior to reaching 90 days of opioid therapy and at least annually thereafter. Collection DT Specimen Test Name Result Units Ref Range 04/02/2023 07:57 URINE !! OPIATES SCREEN POSITIVE H* Ref: None-Detected, Cutoff = 300 ng/mL 04/02/2023 07:57 URINE !! OXYCODONE SCREEN POSITIVE H* Ref: None-Detected, Cutoff = 100 ng/mL 04/02/2023 07:57 URINE !! METHADONE SCREEN None detected(Negative) LRef: Negative 04/02/2023 07:57 URINE !! BenzoSc NONE-DETECTED Ref: None-Detected, Cutoff = 200 ng/mL 04/02/2023 07:57 URINE !! COCAINE SCREEN NONE-DETECTED Ref: None-Detected,Cutoff = 300 ng/mL 04/02/2023 07:57 URINE !! CANNABINOIDS SCREPOSITIVE H* Ref: None-Detected,Cutoff = 50 ng/mL 04/02/2023 07:57 URINE !! ALCOHOL, ETHYL URNONE-DETECTED mg/dL Ref: NONE-DETECTED, cutoff = 10 mg/dL 04/02/2023 07:57 URINE !! AMPHETAMINES SCRENONE-DETECTED Ref: None-Detected, Cutoff = 1000 ng/mL 04/02/2023 07:57 URINE !! BupreUr NONE-DETECTED Ref: None Detected, Cutoff = 10.0 ng/mL 04/02/2023 07:57 URINE !! Ethyl Sulfate None Detected ng/mL Ref: Negative, Cutoff = 100 ng/mL 04/02/2023 07:57 URINE !! EthylGlucConf None Detected ng/mL Ref: Negative, Cutoff = 500 ng/ml !! Indicates COMMENTS AVAILABLE...Refer to Interim Lab Report. Most Recent Naloxone Prescription Information: Reminder Term: VA-NALOXONE USE Drug: NALOXONE HCL 4MG/SPRAY SOLN NASAL SPRAY Outpatient Medication: NALOXONE HCL 4MG/SPRAY SOLN NASAL SPRAY 08/17/2021@16:29 Status: Start date: 08/16/2021@16:29 Stop date: 08/17/2021@16:29 Duration: 1 D Last release date: 08/16/2021@16:29 Days supply: Devendra /robe/ RAVINDER BUNN RN REGISTERED NURSE Signed: 05/24/2023 10:07 Receipt Acknowledged By: * AWAITING SIGNATURE * NEHEMIAH NOEL [place]
--- OUTSIDE RECORDS SUMMARY | 2024-04-28 10:53 | XMS_ITS | Encounter Summary ---
Author Name [facility] [place] Organization [place] Address [address] [place] [address] Care Team Providers Care Acupuncturist Name Role Phone NEHEMIAH CUEVAS Primary Care [...] Name Patient's Relationship to Policy Orellana [facility]NA [facility] Aug 11, 2014 [id number] DHAVAL SHAQ Wagner PATIENT [facility] MEDIC[facility] SUPPLEMEN [facility]EMIO [facility] Aug 11, 2014 [id number] [phone] DHAVAL [facility] SUPPLEMEN ARTEMIO MEDEX 2 Aug 11, 2014 [id number] [phone] DHAVAL SHAQ Wagner PATIENT [place] MEDICARE SUPPLEMEN ART[facility]IO MEDEX 2 Aug 11, 2014 [id number] [phone] DHAVAL SHAQ Wagner PATIENT [place] MEDICARE SUPPLEMEN ART[facility]IO MEDEX 2 Aug 11, 2014 [id number] ARCHAMBEA SHAQ Wagner PATIENT [place] MEDICARE SUPPLEMEN [facility] [place] [facility] [place] Aug 11, 2014 [id number] SHAQ WONG PATIENT USMANA [facility] (WNR) MEDICARE ADVANTAGE HUMAN A INSUR [facility] Jan 11, 2022 [id number] [phone] ARCHOCTAVIOEA SHAQ Wagner PATIENT USMANA [facility] (WNR) MEDICARE ADVANTAGE [facility] (WNR) Jan 11, 2022 [id number] [phone] ARCHAMBEA SHAQ Wagner PATIENT MEDICARE (WNR) MEDICARE () PART A Dec 11, 2014 PART A [id number] ARCHAMBEA SHAQ Wagner PATIENT MEDICARE (WNR) MEDICARE () PART A Aug 11, 2014 PART A [id number] ARCHAMBEA SHAQ Wagner PATIENT MEDICARE (WNR) MEDICARE () PART B Aug 11, 2014 PART B [id number] ARCHAMBEA SHAQ Wagner PATIENT MEDICARE (WNR) MEDICARE () PART A Aug 11, 2014 PART A [id number] ARCHAMBEA SHAQ Wagner PATIENT MEDICARE (WNR) MEDICARE () PART B Aug 11, 2014 PART B [id number] ARCHAMBEA SHAQ Wagner PATIENT MEDICARE (WNR) MEDICARE () PART A Aug 11, 2014 PART A [id number] ARCHAMBEA Bernard,SHAQ PATIENT MEDICARE (WNR) MEDICARE () PART B Aug 11, 2014 PART B [id number] ARCHAMBEA SHAQ Wagner PATIENT MEDICARE (WNR) MEDICARE () PART B Aug 11, 2014 PART B [id number] ARCHAMBEA SHAQ Wagner [facility] (WNR) MEDICARE ADVANTAGE [facility] (WNR) May 13, 2020 [id number] ARCHAMBEA SHAQ Wagner PATIENT Selected Encounter This section includes the information on record at [place] for the Encounter. Date/Time Encounter Type Encounter Description Reason Pro vider Source Jun 18, 2023 10:46 AM Outpatient Encounter COMMUNITY CARE CONSULT IHE Encounter Template Text not used by VA Plan of Treatment: Future Appointments (+ 6 months) and Future Tests (+/- 45 days) The Plan of Treatment section includes future care activities for the patient from all [place] treatmentfacilities. This section includes future appointments and future orders which are active, pending or scheduled. Future Appointments This section includes appointments that were scheduled to occur 6 months from the date of the Encounter, up to a maximum of 20 appointments. The data comes from all [place] treatment facilities. Appointment Date/Time Appointment Type Appointme nt Facility Name Jun 24, 2023 08:30 AM AMBULATORY - NONE [facility] [place] [facility] Jul 04, 2023 09:00 AM AMBULATORY - MEDICINE [facility] Jul 05, 2023 08:45 AM AMBULATORY - MEDICINE [facility] [place] [facility] Jul 17, 2023 11:00 AM AMBULATORY - REHAB MEDICIN E [facility] [place] [facility] Aug 12, 2023 07:30 AM AMBULATORY - REHAB MEDICIN E [facility] [place] [facility] Aug 30, 2023 08:45 AM AMBULATORY - MEDICINE [facility] [place] [facility] October 02, 2023 08:00 AM AMBULATORY - REHAB MEDICIN E [facility] [place] [facility] October 08, 2023 11:00 AM AMBULATORY - MEDICINE [facility] October 09, 2023 08:30 AM AMBULATORY - MEDICINE [facility] [place] [facility] Oct 23, 2023 08:30 AM AMBULATORY - MEDICINE [facility] Nov 19, 2023 08:30 AM AMBULATORY - MEDICINE [facility] [place] [facility] Nov 28, 2023 07:30 AM AMBULATORY - REHAB MEDICIN E [facility] [place] Lab Results: +/- 30 days of the encounter This section includes the Chemistry and Hematology Lab Results on record with [place] for the patient. Radiology Reports and Pathology Reports are provided separately, in subsequent sections. Lab Results This section contains the Chemistry/Hematology Results that were resulted 30 days before or 30 daysafter the date of the Encounter. Date/Time Source Result Type Result - Unit Interpretation Reference Range Comment Jun 27, 2023 07:32 AM [facility] BASIC METABOLIC PANEL (fasting) Specime n Type: SERUM No comment entered. Ordering Provider: NEHEMIAH DAVIES Report Released Date/Time: Nov 09, 2022 12:33 PM Reporting Lab: [address] [address] Performing Lab: [address] [address] UREA NITROGEN 18 mg/dL 7-25 GLUCOSE 96 mg/dL 65-100 SODIUM 141 mmol/L 135-145 POTASSIUM 4.8 mmol/L 3.5-5.0 CHLORIDE 106 mmol/L 100-110 CO2 28 meq/L 20-30 CREATININE, Serum 1.11 mg/dL 0.50-1.40 eGFR(CKD-EPI 2020) 70 mL/min >60 Jun 27, 2023 07:32 AM [facility] VITAMIN D (25-OH) Specimen Type: SERUM No comment entered. Ordering Provider: NEHEMIAH DAVIES Report Released Date/Time: Nov 09, 2022 12:33 PM Reporting Lab: [address] [address] Performing Lab: [address] [address] VITAMIN D (25-OH) 48 ng/mL 20-50 Jun 27, 2023 07:32 AM [facility] LIPID PANEL FASTING Specimen Type: SERUM No comment entered. Ordering Provider: NEHEMIAH DAVIES Report Released Date/Time: Nov 09, 2022 12:33 PM Reporting Lab: [address] [address] Performing Lab: [address] [address] CHOLESTEROL 156 mg/dL TRIGLYCERIDE 83 mg/dL 0-150 LDL calculated 78 mg/dL 0-129 CHOL/HDL 2.6 HDL CHOLESTEROL 61 mg/dL H 40-60 Jun 27, 2023 07:32 AM [facility] LIVER FUNCTION Specimen Type: SERUM No comment entered. Ordering Provider: NEHEMIAH DAVIES Report Released Date/Time: Nov 09, 2022 12:33 PM Reporting [facility]: [facility] [address] [address] Performing Lab: [address] [address] PROTEIN,TOTAL 6.7 g/dL 6.0-8.3 ALBUMIN 4.1 g/dL 3.5-5.0 ALKALINE PHOSPHATASE 66 U/L 40-150 AST 14 U/L 5-34 ALT 21 U/L BILIRUBIN, TOTAL 0.4 mg/dL 0.2-1.2 Jun 27, 2023 07:32 AM [facility] MAGNESIUM Specimen Type: SERUM No comment entered. Ordering Provider: NEHEMIAH DAVIES Report Released Date/Time: Nov 09, 2022 12:33 PM Reporting Lab: [address] [address] Performing [facility]: [facility] [address] [address] MAGNESIUM 2.1 mg/dL 1.6-2.6 Jun 27, 2023 07:32 AM [facility] VITAMIN B12 Specimen Type: SERUM No comment entered. Ordering Provider: NEHEMIAH DAVIES Report Released Date/Time: Nov 09, 2022 12:33 PM Reporting Lab: [facility] [address] [address] Performing Lab: [facility] [address] [address] VITAMIN B12 591 pg/mL 200-900 Jun 27, 2023 07:32 AM [facility] CBC AND DIFF (AUTO) Specimen Type: BLOOD No comment entered. Ordering Provider: NEHEMIAH DAVIES Report Released Date/Time: Nov 09, 2022 12:33 PM Reporting Lab: [address] [address] Performing Lab: [facility] [address] [address] WBC 8.96 10*3/uL 4.50-11.00 RBC 4.81 10*6/uL 4.23-5.66 HGB 14.0 g/dL 12.8-17 HCT 42.4 39.2-50.4 MCV 88.1 fL 82-99 MCHC 33.0 g/dL 30.8-35.1 PLT 312 10*3/uL 140-360 RDW-CV 12.3 12.0-16.0 [place], Abs 0.59 10*3/uL 0.30-1.10 MCH 29.1 pg 26.2-32.6 Neut % 65.4 43.7-75.8 Lymph % 21.4 14.0-42.3 [place] % 6.6 5.1-13.7 Eos % 4.4 0.4-6.8 [...] and tobacco- related health factors from the AR facility where the Encounter took place. Current Smoking Status This section includes the most current smoking, or tobacco-related health factor, from the AR facility where the Encounter took place. Date/Time Current Smoking Status Comment Facil ity Mar 14, 2022 03:02 PM VA-TOBACCO FORMER USER [facility] Tobacco Use History This section includes a history of the smoking, or tobacco-related health factors, that were collected on or before the date of the Encounter. The data comes from the AR facility where the Encounter took place. Date/Time Smoking Status/Tobacco Use Comment F acility Mar 14, 2022 03:02 PM VA-TOBACCO QUIT 15 YRS OR MORE [facility] [place] [facility] Feb 08, 2021 09:00 AM VA-TOBACCO FORMER USER [facility] [place] [facility] Feb 08, 2021 09:00 AM VA-TOBACCO QUIT 15 YRS OR MORE [facility] [place] [facility] October 09, 2019 01:12 PM VA-TOBACCO FORMER USER [facility] [place] [facility] October 09, 2019 01:12 PM VA-TOBACCO QUIT 5 TO < 15 YRS [facility] Advance Directives: All historical and current Section Date Range: From patient's date of to the date document was created. This section includes ALL of a patient's completed or amended VA Advance and Rescinded Directives. The entries below indicate that a directive exists for the patient, but an actual copy is not included with this document. The data comes from all AR facilities. Date Advance Directives Provider Source Feb [...] the Encounter. The data comes from all [place] treatment facilities. Date/Time Radiology Report Provider Source Jul 17, 2023 11:09 AM FLUOROSCOPIC NITIN NCE OF NEEDLE/SPINE: SHAQ GREGORIO [id number] -[id number] M Ex Date: JUL 17, 2023@11:09 Req Phys: BERNBAE PRIETOONG THI Pat Loc: [facility]/NO/MED REHAB/SPINE INJ (Re Img Loc: [facility] Service: Unknown (Case [id number] COMPLETE) FLUOROSCOPIC GUIDANCE OF NEEDLE/S(RAD Detailed) CPT:60794 Reason for Study: transforaminal epidural steroid injection Clinical History: Report Status: Verified Date Reported: JUL 17, 2023 Date Verified: JUL 17, 2023 Power Saw Operator E-Sig:/ES/LOU VICTORIA JR Report: Study: Pain [...] Interpreting Staff: LOU VICTORIA JR, Radiologist (Power Saw Operator) /LOU WASHINGTON JR [facility] Encounter Notes: All associated encounter notes This section contains the clinical notes associated to the Encounter. Date/Time Encounter Note(s) Provider Source Jun 18, 2023 11:21 AM ADDENDUM: LOCAL TITLE: Addendum STANDARD TITLE: ADDENDUM DATE OF NOTE: JUN 18, 2023@11:21:03 ENTRY DATE: JUN 18, 2023@11:21:04 AUTHOR: JEREMY WICK COSIGNER: URGENCY: STATUS: COMPLETED Will forward to PACT AMSA to please obtain the medical records. /robe/ JEREMY WICK RN REGISTERED NURSE Signed: 06/18/2023 11:21 Receipt Acknowledged By: 06/18/2023 12:13 /robe/ MONICA LINDQUIST --- Original Document --- 06/18/23 [facility] PRESENTING CARE COORD PLAN NOTE: Emergency Notification Intake Date Presenting to the Facility: Jun Method of Contact: Notified from [employer] worklist Notification ID: [id number] [facility] [place] [facility] [place] Hospital: [facility] Address: City: [place]: [place] Zip Code: Phone : Community Facility Point of Contact: Name: jennifer Phone: Chief complaint: CHEST PAIN, DIFF BREATHING Primary Diagnosis: AFIB RVR Disposition Admitted Route of Admission: ER Date of Admission: Jun Admitting Diagnosis: AFIB RVR Community Care Provider: Confirm Level of Care: /reba BERRIOS AMSA Signed: 06/18/2023 10:47 Receipt Acknowledged By: * AWAITING SIGNATURE * SHABNAM GREEN 06/18/2023 11:20 /robe/ JEREMY WICK RN REGISTERED NURSE * AWAITING SIGNATURE * VETO ACHARYA * AWAITING SIGNATURE * NEHEMIAH CUEVAS * AWAITING SIGNATURE * EUNICE COHEN * AWAITING SIGNATURE * ALLYSSA DIAZ 06/18/2023 ADDENDUM STATUS: UNSIGNED You may not VIEW this UNSIGNED Addendum. JEREMY WICK FINGAL Jun 18, 2023 10:46 AM NONVA NOTE: LOCAL TITLE: COMMUNITY CARE-BRENT SELF PRESENTING CARE COORD PLAN STANDARD TITLE: NONVA NOTE DATE OF NOTE: JUN 18, 2023@10:46 ENTRY DATE: JUN 18, 2023@10:46:20 AUTHOR: ORVILLE BERRIOS EXP COSIGNER: URGENCY: STATUS: COMPLETED COMMUNITY CARE-BRENT SELF PRESENTING CARE COORD PLAN NOTE Has ADDENDA Emergency Notification Intake Date Presenting to the Facility: Jun Method of Contact: Notified from [facility] worklist Notification ID: [id number] [facility] Ref[place] #: [facility] [place] Name: Hospital: [facility] Address: City: [place]: [place] Zip Code: Phone : [facility] Facility Point of Contact: Name: jennifer Phone: Chief complaint: CHEST PAIN, DIFF BREATHING Primary Diagnosis: AFIB RVR Disposition Admitted Route of Admission: ER Date of Admission: Jun Admitting Diagnosis: AFIB RVR Community Care Provider: Confirm Level of Care: /reba BERRIOS AMSA Signed: 06/18/2023 10:47 Receipt Acknowledged By: * AWAITING SIGNATURE * SHABNAM GREEN 06/18/2023 11:20 /robe/ JEREMY WICK RN REGISTERED NURSE * AWAITING SIGNATURE * VETO ACHARYA 06/20/2023 22:20 /robe/ NEHEMIAH CUEVAS MD PHYSICIAN * AWAITING SIGNATURE * EUNICE COHEN * AWAITING SIGNATURE * ALLYSSA DIAZ 06/18/2023 ADDENDUM STATUS: COMPLETED Will forward to PACT AMSA to please obtain the medical records. /robe/ JEREMY WICK RN REGISTERED NURSE Signed: 06/18/2023 11:21 Receipt Acknowledged By: 06/18/2023 12:13 /robe/ MONICA LINDQUIST 06/18/2023 ADDENDUM STATUS: COMPLETED STREAMING MEDIA SPECIALIST REQUESTED RECORDS. /robe/ MONICA LINDQUIST Signed: 06/18/2023 12:13 [place]LE BERRIOS FINGAL
--- OUTSIDE RECORDS SUMMARY | 2024-04-28 10:53 | XMS_ITS | Encounter Summary ---
Author Name [facility] [place] [facility] [place] Organization [place] Address [address] [place] [address] Care Team Providers Care General Handling Supervisor Name Role Phone NEHEMIAH CUEVAS Primary Care [...] Patient's Relationship to Policy Orellana ANA [facility] Aug 11, 2014 [id number] [phone] DHAVAL SHAQ Wagner PATIENT ANA BCBS OF [place] MEDICARE SUPPLEMEN [facility] Aug 11, 2014 [id number] DHAVAL SHAQ Wagner PATIENT [place] MED[place]ARE SUPPLEMEN [facility] MEDEX 2 Aug 11, 2014 [id number] DHAVAL SHAQ [place] [employer] MEDEX 2 Aug 11, 2014 [id number] [phone] ARCHSTEPHANIA SHAQ Wagner [place]MEN [facility]IO MEDEX 2 Aug 11, 2014 [id number] DHAVAL SHAQ Wagner [place] MEDICARE SUPPLEMEN [place] [place] Aug 11, 2014 [id number] [phone] LAURIEEA SHAQ Wanger PATIENT USMANA MCR (WNR) MEDICARE ADVANTAGE HUMAN A INSUR [facility] Jan 11, 2022 [id number] [phone] ARCHOCTAVIOEA SHAQ Wagner PATIENT USMANA MCR (WNR) MEDICARE ADVANTAGE [facility] (WNR) Jan 11, 2022 [id number] [phone] ARCHAMBEA Bernard,SHAQ PATIENT MEDICARE (WNR) MEDICARE (M) PART A Dec 11, 2014 PART A [id number] [phone] ARCHAMBEA Bernard,SHAQ PATIENT MEDICARE (WNR) MEDICARE (M) PART A Aug 11, 2014 PART A [id number] ARCHAMBEA Bernard,SHAQ PATIENT MEDICARE (WNR) MEDICARE () PART B Aug 11, 2014 PART B [id number] ARCHAMBEA U,SHAQ PATIENT MEDICARE (WNR) MEDICARE () PART A Aug 11, 2014 PART A [id number] ARCHAMBEA U,SHAQ PATIENT MEDICARE (WNR) MEDICARE () PART B Aug 11, 2014 PART B [id number] ARCHAMBEA U,SHAQ PATIENT MEDICARE (WNR) MEDICARE () PART A Aug 11, 2014 PART A [id number] [phone] ARCHAMBEA Bernard,SHAQ PATIENT MEDICARE (WNR) MEDICARE (M) PART B Aug 11, 2014 PART B [id number] ARCHAMBEA U,SHAQ PATIENT MEDICARE (WNR) MEDICARE (M) PART B Aug 11, 2014 PART B [id number] ARCHOCTAVIOEA SHAQ Wagner [facility] (WNR) MEDICARE ADVANTAGE [facility] (WNR) May 13, 2020 [id number] ARCHAMBEA SHAQ Wagner PATIENT Selected Encounter This section includes the information on record at [place] for the Encounter. Date/Time Encounter Type Encounter [...] this document. The data comes from all [place] facilities. Date Advance Directives Provider Source Feb 21, 2021 ADVANCE DIRECTIVE BEL ESCALANTE
--- OUTSIDE RECORDS SUMMARY | 2024-04-28 10:53 | XMS_ITS ---
Author Name [facility] [place] Organization [place] Address [address] [place] [address] Care Team Providers Care Legal Entity Controller Name Role Phone NEHEMIAH CUEVAS Primary Care [...] Name Patient's Relationship to Policy [facility] Aug 11, 2014 [id number] [phone] DHAVAL SHAQ Wagner PATIENT [facility] MEDIC[facility] SUPPLEMEN ARTEMIO [facility] Aug 11, 2014 [id number] [phone] DHAVAL SHAQ Wagner [facility] SUPPLEMEN ARTEMIO MEDEX 2 Aug 11, 2014 [id number] [phone] DHAVAL SHAQ Wagner [facility] MEDIC[facility] SUPPLEMEN ARTEMIO MEDEX 2 Aug 11, 2014 [id number] [phone] ARCHAMBRENTAA SHAQ Wagner PATIENT [place] SUPPLEMEN ARTEMIO MEDEX 2 Aug 11, 2014 [id number] ARCHAMBEA SHAQ Wagner PATIENT [place] MEDICARE SUPPLEMEN [employer] [facility] [place] Aug 11, 2014 [id number] [phone] SHAQ WONG PATIENT USMANA [facility] (WNR) MEDICARE ADVANTAGE [facility] (WNR) Jan 11, 2022 [id number] [phone] ARCHAMBEA SHAQ Wagner PATIENT USMANA [facility] (WNR) MEDICARE ADVANTAGE HUMAN A INSUR ANCE [facility] Jan 11, 2022 [id number] [phone] ARCHAMBEA SHAQ Wagner PATIENT MEDICARE (WNR) MEDICARE () PART A Dec 11, 2014 PART A [id number] [phone] ARCHAMBEA U,SHAQ PATIENT MEDICARE (WNR) MEDICARE () PART B Aug 11, 2014 PART B [id number] ARCHAMBEA Bernard,SHAQ PATIENT MEDICARE (WNR) MEDICARE () PART A Aug 11, 2014 PART A [id number] [phone] ARCHAMBEA Bernard,SHAQ PATIENT MEDICARE (WNR) MEDICARE () PART B Aug 11, 2014 PART B [id number] ARCHAMBEA Bernard,SHAQ PATIENT MEDICARE (WNR) MEDICARE () PART A Aug 11, 2014 PART A [id number] [phone] ARCHAMBEA Bernard,SHAQ PATIENT MEDICARE (WNR) MEDICARE () PART B Aug 11, 2014 PART B [id number] [phone] ARCHAMBEA U,SHAQ PATIENT MEDICARE (WNR) MEDICARE () PART A Aug 11, 2014 PART A [id number] [phone] ARCHAMBEA U,SHAQ PATIENT MEDICARE (WNR) MEDICARE (M) PART B Aug 11, 2014 PART B [id number] ARCHAMBEA SHAQ Wagner [facility] (WNR) MEDICARE ADVANTAGE [facility] (WNR) May 13, 2020 [id number] [phone] ARCHAMBEA SHAQ Wagner PATIENT Selected Encounter This section includes the information on record at [place] for the Encounter. Date/Time Encounter Type Encounter Description Reason Pro vider Source Jun 17, 2023 12:00 AM Outpatient Encounter EVENT (HISTORICAL) IHE Encounter Template Text not used by VA Plan of Treatment: Future Appointments (+ 6 months) and Future Tests (+/- 45 days) The Plan of Treatment section includes future care activities for the patient from all [place] treatmentfacilities. This section includes future appointments and future orders which are active, pending or scheduled. Future Appointments This section includes appointments that were scheduled to occur 6 months from the date of the Encounter, up to a maximum of 20 appointments. The data comes from all [place] treatment facilities. Appointment Date/Time Appointment Type Appointme nt Facility Name Jun 24, 2023 08:30 AM AMBULATORY - NONE [facility] [place] [facility] Jul 04, 2023 09:00 AM AMBULATORY - MEDICINE [facility] Jul 05, 2023 08:45 AM AMBULATORY - MEDICINE [facility] [place] [facility] Jul 17, 2023 11:00 AM AMBULATORY - REHAB MEDICIN E [facility] [place] [facility] Aug 12, 2023 07:30 AM AMBULATORY - REHAB MEDICIN E [facility] [place] [facility] Aug 30, 2023 08:45 AM AMBULATORY - MEDICINE [facility] [place] [facility] October 02, 2023 08:00 AM AMBULATORY - REHAB MEDICIN E [facility] [place] [facility] October 08, 2023 11:00 AM AMBULATORY - MEDICINE [facility] October 09, 2023 08:30 AM AMBULATORY - MEDICINE [facility] [place] [facility] Oct 23, 2023 08:30 AM AMBULATORY - MEDICINE [facility] Nov 19, 2023 08:30 AM AMBULATORY - MEDICINE [facility] [place] [facility] Nov 28, 2023 07:30 AM AMBULATORY - REHAB MEDICIN E [facility] [place] [facility] Lab Results: +/- 30 days of the encounter This section includes the Chemistry and Hematology Lab Results on record with [place] for the patient. Radiology Reports and Pathology Reports are provided separately, in subsequent sections. Lab Results This section contains the Chemistry/Hematology Results that were resulted 30 days before or 30 daysafter the date of the Encounter. Date/Time Source Result Type Result - Unit Interpretation Reference Range Comment Jun 27, 2023 07:32 AM [place] LIPID PANEL FASTING Specimen Type: SERUM No comment entered. Ordering Provider: NEHEMIAH DAVIES Report Released Date/Time: Nov 09, 2022 12:33 PM Reporting Lab: [address] [address] Performing Lab: [address] [address] CHOLESTEROL 156 mg/dL TRIGLYCERIDE 83 mg/dL 0-150 LDL calculated 78 mg/dL 0-129 CHOL/HDL 2.6 HDL CHOLESTEROL 61 mg/dL H 40-60 Jun 27, 2023 07:32 AM [place] VITAMIN D (25-OH) Specimen Type: SERUM No comment entered. Ordering Provider: NEHEMIAH DAVIES Report Released Date/Time: Nov 09, 2022 12:33 PM Reporting Lab: [address] [address] Performing Lab: [address] [address] VITAMIN D (25-OH) 48 ng/mL 20-50 Jun 27, 2023 07:32 AM [place] LIVER FUNCTION Specimen Type: SERUM No comment entered. Ordering Provider: NEHEMIAH DAVIES Report Released Date/Time: Nov 09, 2022 12:33 PM Reporting Lab: [address] [address] [facility] [address] PROTEIN,TOTAL 6.7 g/dL 6.0-8.3 ALBUMIN 4.1 g/dL 3.5-5.0 ALKALINE PHOSPHATASE 66 U/L 40-150 AST 14 U/L 5-34 ALT 21 U/L BILIRUBIN, TOTAL 0.4 mg/dL 0.2-1.2 Jun 27, 2023 07:32 AM [place] BASIC METABOLIC PANEL (fasting) Specime n Type: SERUM No comment entered. Ordering Provider: PAPI DAVIESKA M Report Released Date/Time: Nov 09, 2022 12:33 PM Reporting Lab: [address] [address] Performing Lab: [facility] [address] [address] UREA NITROGEN 18 mg/dL 7-25 GLUCOSE 96 mg/dL 65-100 SODIUM 141 mmol/L 135-145 POTASSIUM 4.8 mmol/L 3.5-5.0 CHLORIDE 106 mmol/L 100-110 CO2 28 meq/L 20-30 CREATININE, Serum 1.11 mg/dL 0.50-1.40 eGFR(CKD-EPI 2020) 70 mL/min >60 Jun 27, 2023 07:32 AM [place] MAGNESIUM Specimen Type: SERUM No comment entered. Ordering Provider: NEHEMIAH DAVIES Report Released Date/Time: Nov 09, 2022 12:33 PM Reporting Lab: [address] [address] Performing Lab: [address] [address] MAGNESIUM 2.1 mg/dL 1.6-2.6 Jun 27, 2023 07:32 AM [place] VITAMIN B12 Specimen Type: SERUM No comment entered. Ordering Provider: NEHEMIAH DAVIES Report Released Date/Time: Nov 09, 2022 12:33 PM Reporting Lab: [address] [address] Performing Lab: [facility] [address] [address] VITAMIN B12 591 pg/mL 200-900 Jun 27, 2023 07:32 AM [place] CBC AND DIFF (AUTO) Specimen Type: BLOOD No comment entered. Ordering Provider: NEHEMIAH DAVIES Report Released Date/Time: Nov 09, 2022 12:33 PM Reporting Lab: [address] [address] Performing Lab: [facility] [place] [facility] [address] [facility] [address] WBC 8.96 10*3/uL 4.50-11.00 RBC 4.81 10*6/uL 4.23-5.66 HGB 14.0 g/dL 12.8-17 HCT 42.4 39.2-50.4 MCV 88.1 fL 82-99 MCHC 33.0 g/dL 30.8-35.1 PLT 312 10*3/uL 140-360 RDW-CV 12.3 12.0-16.0 [place], Abs 0.59 10*3/uL 0.30-1.10 MCH 29.1 pg 26.2-32.6 Neut % 65.4 43.7-75.8 Lymph % 21.4 14.0-42.3 [place] % 6.6 5.1-13.7 Eos % 4.4 0.4-6.8 [...] and tobacco- related health factors from the [place] facility where the Encounter took place. Current Smoking Status This section includes the most current smoking, or tobacco-related health factor, from the [place] facility where the Encounter took place. Date/Time Current Smoking Status Comment Facil ity Mar 14, 2022 03:02 PM VA-TOBACCO FORMER USER [facility] Tobacco Use History This section includes a history of the smoking, or tobacco-related health factors, that were collected on or before the date of the Encounter. The data comes from the [place] facility where the Encounter took place. Date/Time Smoking Status/Tobacco Use Comment F acility Mar 14, 2022 03:02 PM HI-TOBACCO QUIT 15 YRS OR MORE [facility] [place] [facility] Feb 08, 2021 09:00 AM VA-TOBACCO FORMER USER [facility] [place] [facility] Feb 08, 2021 09:00 AM VA-TOBACCO QUIT 15 YRS OR MORE [facility] [place] [facility] October 09, 2019 01:12 PM VA-TOBACCO FORMER [facility] October 09, 2019 01:12 PM VA-TOBACCO QUIT 5 TO < 15 YRS [facility] Advance Directives: All historical and current Section Date Range: From patient's date of to the date document was created. This section includes ALL of a patient's completed or amended VA Advance and Rescinded Directives. The entries below indicate that a directive exists for the patient, but an actual copy is not included with this document. The data comes from all [place] facilities. Date Advance Directives Provider Source Feb 21, 2021 ADVANCE DIRECTIVE BEL ESCALANTE [facility] Radiology Reports: +/- 30 days of the [...] the Encounter. The data comes from all [place] treatment facilities. Date/Time Radiology Report Provider Source Jul 17, 2023 11:09 AM FLUOROSCOPIC NITIN NCE OF NEEDLE/SPINE: SHAQ GREGORIO [id number] M Ex Date: JUL 17, 2023@11:09 Req Phys: BERNABE PRIETOONG THI Pat Loc: CWM/NO/MED REHAB/SPINE INJ (Re Img Loc: [facility] 1 Service: Unknown (Case [id number] COMPLETE) FLUOROSCOPIC GUIDANCE OF NEEDLE/S(RAD Detailed) CPT:72202 Reason for Study: transforaminal epidural steroid injection Clinical History: Report Status: Verified Date Reported: JUL 17, 2023 Date Verified: JUL 17, 2023 Spray Technician E-Sig:/ES/LOU VICTORIA JR Report: Study: Pain injection [...] Primary Interpreting Staff: LOU VICTORIA JR, Radiologist (Spray Technician) /LOU WASHINGTON JR [facility]
--- OUTSIDE RECORDS SUMMARY | 2024-04-28 10:53 | XMS_ITS ---
Author Name [facility] [place] Organization [place] Address [address] [place] [address] Care Team Providers Care Fruit [employer] Farm Manager Name Role Phone NEHEMIAH CUEVAS Primary [...] Patient's Relationship to Policy [facility] Aug 11, 2014 [id number] [phone] DHAVAL SHAQ Wagner PATIENT ANA BCBS [facility] MEDICARE SUPPLEMEN ARTEMIO [facility] Aug 11, 2014 [id number] DHAVAL SHAQ Wagner [place]IENT [place] SUPPLEMEN ARTEMIO MEDEX 2 Aug 11, 2014 [id number] [phone] DHAVAL SHAQ Wagner [facility] SUPPLEMEN ARTEMIO MEDEX 2 Aug 11, 2014 [id number] ARCHSTEPHANIA SHAQ Wagner [place] SUPPLEMEN ARTEMIO MEDEX 2 Aug 11, 2014 [id number] ARCHOCTAVIOEA SHAQ Wagner [place] MEDICARE SUPPLEMEN [employer] [place] Aug 11, 2014 [id number] [phone] SHAQ WONG PATIENT USMANA [facility] (WNR) MEDICARE ADVANTAGE HUMAN A INSUR [facility] Jan 11, 2022 [id number] [phone] ARCHOCTAVIOEA SHAQ Wagner PATIENT USMANA [facility] (WNR) MEDICARE ADVANTAGE [facility] (WNR) Jan 11, 2022 [id number] [phone] ARCHAMBEA SHAQ Wagner PATIENT MEDICARE (WNR) MEDICARE (M) PART A Dec 11, 2014 PART A [id number] ARCHAMBEA SHAQ Wagner PATIENT MEDICARE (WNR) MEDICARE (M) PART A Aug 11, 2014 PART A [id number] ARCHAMBEA SHAQ Wagner PATIENT MEDICARE (WNR) MEDICARE () PART B Aug 11, 2014 PART B [id number] ARCHAMBEA SHAQ Wagner PATIENT MEDICARE (WNR) MEDICARE () PART B Aug 11, 2014 PART B [id number] [phone] ARCHAMBEA SHAQ Wagner PATIENT MEDICARE (WNR) MEDICARE (M) PART A Aug 11, 2014 PART A [id number] ARCHAMBEA SHAQ Wagner PATIENT MEDICARE (WNR) MEDICARE () PART B Aug 11, 2014 PART B [id number] [phone] ARCHAMBEA SHAQ Wagner PATIENT MEDICARE (WNR) MEDICARE (M) PART A Aug 11, 2014 PART A [id number] [phone] ARCHAMBEA SHAQ Wagner PATIENT MEDICARE (WNR) MEDICARE (M) PART B Aug 11, 2014 PART B [id number] ARCHAMBEA SHAQ Wagner [facility] (WNR) MEDICARE ADVANTAGE [facility] (WNR) May 13, 2020 [id number] [phone] ARCHOCTAVIOEA SHAQ Wagner PATIENT Selected Encounter This section includes the information on record at [place] for the Encounter. Date/Time Encounter Type Encounter Description Reason Pro vider Source May 28, 2023 08:33 AM Outpatient Encounter PRIMARY CARE/MEDICINE IHE Encounter Template Text not used by [place] Plan of Treatment: Future Appointments (+ 6 months) and Future Tests (+/- 45 days) The Plan of Treatment section includes future care activities for the patient from all [place] treatmentfacilities. This section includes future appointments and [...] AMBULATORY - NONE [facility] [place] [facility] Jul 04, 2023 09:00 AM AMBULATORY - MEDICINE [facility] Jul 05, 2023 08:45 AM AMBULATORY - MEDICINE [facility] [place] [facility] Jul 17, 2023 11:00 AM AMBULATORY - REHAB MEDICIN E [facility] [place] [facility] Aug 12, 2023 07:30 AM AMBULATORY - REHAB MEDICIN E [facility] [place] [facility] Aug 30, 2023 08:45 AM AMBULATORY - MEDICINE [place] [facility] [place] [facility] October 02, 2023 08:00 AM AMBULATORY - REHAB MEDICIN E [facility] [place] [facility] October 08, 2023 11:00 AM AMBULATORY - MEDICINE [facility] October 09, 2023 08:30 AM AMBULATORY - MEDICINE [place] [facility] [place] [facility] Oct 23, 2023 08:30 AM AMBULATORY - MEDICINE [facility] Nov 19, 2023 08:30 AM AMBULATORY - MEDICINE [place] [facility] [place] [facility] Lab Results: +/- 30 days of the encounter This section includes the Chemistry and Hematology Lab Results on record with [place] for the patient. Radiology Reports and Pathology Reports are provided separately, in subsequent sections. Lab Results This section contains the Chemistry/Hematology Results that were resulted 30 days before or 30 daysafter the date of the Encounter. Date/Time Source Result Type Result - Unit Interpretation Reference Range Comment Jun 27, 2023 07:32 AM [place] LIPID PANEL FASTING Specimen Type: SERUM No comment entered. Ordering Provider: NEHEMIAH DAVIES Report Released Date/Time: Nov 09, 2022 12:33 PM Reporting Lab: [address] [address] Performing Lab: [address] [address] CHOLESTEROL 156 mg/dL TRIGLYCERIDE 83 mg/dL 0-150 LDL calculated 78 mg/dL 0-129 CHOL/HDL 2.6 HDL CHOLESTEROL 61 mg/dL H 40-60 Jun 27, 2023 07:32 AM [place] LIVER FUNCTION Specimen Type: SERUM No comment entered. Ordering Provider: NEHEMIAH DAVIES Report Released Date/Time: Nov 09, 2022 12:33 PM Reporting Lab: [address] [address] Performing Lab: [address] [address] PROTEIN,TOTAL 6.7 g/dL 6.0-8.3 ALBUMIN 4.1 g/dL 3.5-5.0 ALKALINE PHOSPHATASE 66 U/L 40-150 AST 14 U/L 5-34 ALT 21 U/L BILIRUBIN, TOTAL 0.4 mg/dL 0.2-1.2 Jun 27, 2023 07:32 AM [place] VITAMIN B12 Specimen Type: SERUM No comment entered. Ordering Provider: NEHEMIAH DAVIES Report Released Date/Time: Nov 09, 2022 12:33 PM Reporting Lab: [address] [address] Performing Lab: [address] [address] VITAMIN B12 591 pg/mL 200-900 Jun 27, 2023 07:32 AM [place] BASIC METABOLIC PANEL (fasting) Specime n Type: SERUM No comment entered. Ordering Provider: NEHEMIAH DAVIES Report Released Date/Time: Nov 09, 2022 12:33 PM Reporting Lab: [address] [place] [address] Performing Lab: [address] [address] UREA NITROGEN 18 mg/dL 7-25 GLUCOSE 96 mg/dL 65-100 SODIUM 141 mmol/L 135-145 POTASSIUM 4.8 mmol/L 3.5-5.0 CHLORIDE 106 mmol/L 100-110 CO2 28 meq/L 20-30 CREATININE, Serum 1.11 mg/dL 0.50-1.40 eGFR(CKD-EPI 2020) 70 mL/min >60 Jun 27, 2023 07:32 AM [place] VITAMIN D (25-OH) Specimen Type: SERUM No comment entered. Ordering Provider: NEHEMIAH DAVIES Report Released Date/Time: Nov 09, 2022 12:33 PM Reporting Lab: [address] [address] Performing Lab: [address] [address] VITAMIN D (25-OH) 48 ng/mL 20-50 Jun 27, 2023 07:32 AM [place] MAGNESIUM Specimen Type: SERUM No comment entered. Ordering Provider: NEHEMIAH DAVIES Report Released Date/Time: Nov 09, 2022 12:33 PM Reporting Lab: [address] [address] Performing Lab: [address] [address] MAGNESIUM 2.1 mg/dL 1.6-2.6 Jun 27, 2023 07:32 AM [place] CBC AND DIFF (AUTO) Specimen Type: BLOOD No comment entered. Ordering Provider: NEHEMIAH DAVIES Report Released Date/Time: Nov 09, 2022 12:33 PM Reporting Lab: [address] [address] Performing Lab: [address] [address] WBC 8.96 10*3/uL 4.50-11.00 RBC 4.81 10*6/uL 4.23-5.66 HGB 14.0 g/dL 12.8-17 HCT 42.4 39.2-50.4 MCV 88.1 fL 82-99 MCHC 33.0 g/dL 30.8-35.1 PLT 312 10*3/uL 140-360 RDW-CV 12.3 12.0-16.0 [place], Abs 0.59 10*3/uL 0.30-1.10 MCH 29.1 pg 26.2-32.6 Neut % 65.4 43.7-75.8 Lymph % 21.4 14.0-42.3 [place] % 6.6 5.1-13.7 Eos % 4.4 0.4-6.8 [...] 14, 2022 03:02 PM VA-TOBACCO FORMER USER [facility] Tobacco Use History This section includes a history of the smoking, or tobacco-related health factors, that were collected on or before the date of the Encounter. The data comes from the [place] facility where the Encounter took place. Date/Time Smoking Status/Tobacco Use Comment F acility Mar 14, 2022 03:02 PM [place]-TO[facility]ACCO [facility] Feb 08, 2021 09:00 AM VA-TOBACCO FORMER USER [facility] [place] [facility] Feb 08, 2021 09:00 AM VA-TOBACCO QUIT 15 YRS OR MORE [place] [facility] [place] [facility] October 09, 2019 01:12 PM VA-TOBACCO FORMER USER [place] [facility] [place] [facility] October 09, 2019 01:12 PM VA-TOBACCO QUIT 5 TO < 15 YRS [facility] Advance Directives: All historical and current Section [...] Encounter. Date/Time Encounter Note(s) Provider Source May 28, 2023 08:46 AM ADDENDUM: LOCAL TITLE: Addendum STANDARD TITLE: ADDENDUM DATE OF NOTE: MAY 28, 2023@08:46:50 ENTRY DATE: MAY 28, 2023@08:46:48 AUTHOR: JEREMY WICK EXP COSIGNER: URGENCY: STATUS: COMPLETED came to the clinic because he was only prescribed 54 tablets of Percocet the last time it was ordered when it should have been 84 tablets. Pharmacy covered the missing amount for the , but the wants to make sure that his next refill is for the correct amount. Will forward this message to the provider. /robe/ JEREMY WICK RN REGISTERED NURSE Signed: 05/28/2023 08:48 Receipt Acknowledged By: 05/29/2023 15:38 /robe/ NEHEMIAH CUEVAS MD PHYSICIAN --- Original Document --- 05/28/23 WALK-IN NOTE PRIMARY CARE (T): <====Click to Start Advanced Medical Support [place] presents to the Primary Care clinic with the following request: [ X ]Medication Renewal/Refill [ ]Consultation with Team RN [ ]Symptoms [ ]Other The [place] states they are: [ X ]Waiting [ ]Not Waiting No Walk in visit scheduled with PACT Nurse [ X ] At this encounter the 's demographics were verified. [ X ] At this encounter the 's Insurance information was verified. [ X ] At this encounter the below scheduled visits for the [place] were discussed and appointment reminder card was offered. IS REQUESTING PRESCRIPTION RENEWAL/REFILL FOR OXYCODONE 5MG. GUIDOKYLIE WOULD LIKE TO SPEAK TO NURSE ABOUT PRESCRIPTION RENEWAL FOR . PLEASE CALL [phone]. Future appointments: 06/24/2023 08:30 CWM/SO/NUTRITION1 07/04/2023 09:00 CWM/SO/PACT 5 07/22/2023 09:00 CWM/NO/MED REHAB/SPINE IN 10/23/2023 08:30 CWM/SO/PODIATRY/ROSS 11/19/2023 08:30 NHM/OPTOMETRY// /es/ GERRI LAWRENCE ADVANCED ARMATURE BANDER Signed: 05/28/2023 08:36 Receipt Acknowledged By: 05/28/2023 08:46 /es/ JEREMY WICK RN REGISTERED NURSE 05/29/2023 10:13 /es/ MARAH MOSS LPN, NICHOLAS [place] May 28, 2023 08:33 AM PRIMARY CARE NOTE: LOCAL TITLE: WALK-IN NOTE PRIMARY CARE (T) STANDARD TITLE: PRIMARY CARE NOTE DATE OF NOTE: MAY 28, 2023@08:33 ENTRY DATE: MAY 28, 2023@08:33:44 AUTHOR: VÍCTOR LAWRENCE COSIGNER: URGENCY: STATUS: COMPLETED WALK-IN NOTE PRIMARY CARE (T) Has ADDENDA <====Click to Start Advanced Medical Support presents to the Primary Care clinic with the following request: [ X ]Medication Renewal/Refill [ ]Consultation with Team RN [ ]Symptoms [ ]Other The [place] states they are: [ X ]Waiting [ ]Not Waiting No Walk in visit scheduled with PACT Nurse [ X ] At this encounter the 's demographics were verified. [ X ] At this encounter the 's Insurance information was verified. [ X ] At this encounter the below scheduled visits for the were discussed and appointment reminder card was offered. IS REQUESTING PRESCRIPTION RENEWAL/REFILL FOR OXYCODONE 5MG. KRISTANHelena WOULD LIKE TO SPEAK TO NURSE ABOUT PRESCRIPTION RENEWAL FOR . PLEASE CALL [phone]. Future appointments: 06/24/2023 08:30 CWM/SO/NUTRITION1 07/04/2023 09:00 CWM/SO/PACT 5 07/22/2023 09:00 CWM/NO/MED REHAB/SPINE IN 10/23/2023 08:30 CWM/SO/PODIATRY/ROSS 11/19/2023 08:30 NHM/OPTOMETRY// /robe/ GERRI LAWRENCE ADVANCED ARMATURE BANDER Signed: 05/28/2023 08:36 Receipt Acknowledged By: 05/28/2023 08:46 /es/ JEREMY WICK RN REGISTERED NURSE 05/29/2023 10:13 /robe/ NATA MULLIGAN LPN LPN 05/28/2023 ADDENDUM STATUS: COMPLETED [place] came to the clinic because he was only prescribed 54 tablets of Percocet the last time it was ordered when it should have been 84 tablets. Pharmacy covered the missing amount for the , but the wants to make sure that his next refill is for the correct amount. Will forward this message to the provider. /robe/ JEREMY WICK RN REGISTERED NURSE Signed: 05/28/2023 08:48 Receipt Acknowledged By: * AWAITING SIGNATURE * NEHEMIAH CUEVAS SHARI K [place]
--- OUTSIDE RECORDS SUMMARY | 2024-04-28 10:54 | XMS_ITS | Encounter Summary ---
Author Name [facility] [place] [facility] [place] Address [address] [place] [address] Care Team Providers Care Management Trainee Marketing Name Role Phone NEHEMIAH CUEVAS Primary [...] Name Patient's Relationship to Policy Orellana ANA [facility] Aug 11, 2014 [id number] [phone] DHAVAL SHAQ Wagner PATIENT ANA [facility] MEDICARE SUPPLEMEN ARTEMIO [facility] Aug 11, 2014 [id number] [phone] DHAVAL SHAQ Wagner PATIENT [facility] MEDICARE SUPPLEMEN [facility] 2 Aug 11, 2014 [id number] DHAVAL SHAQ Wagner PATIENT [facility] MEDICARE SUPPLEMEN [facility] 2 Aug 11, 2014 [id number] DHAVAL SHAQ Wagner PATIENT [place] MEDICARE SUPPLEMEN [facility] 2 Aug 11, 2014 [id number] [phone] ARCHAMBEA SHAQ Wagner PATIENT [place] MEDICARE SUPPLEMEN [facility] [place] Aug 11, 2014 [id number] [phone] LAURIEEA SHAQ Wagner PATIENT HUMANA [facility] (WNR) MEDICARE ADVANTAGE HUMAN A INSUR [place] [facility] Jan 11, 2022 [id number] [phone] ARCHOCTAVIOEA SHAQ Wagner PATIENT USMANA [facility] (WNR) MEDICARE ADVANTAGE [facility] (WNR) Jan 11, 2022 [id number] [phone] ARCHAMBEA SHAQ Wagner PATIENT MEDICARE (WNR) MEDICARE (M) PART A Dec 11, 2014 PART A [id number] [phone] ARCHAMBEA U,SHAQ PATIENT MEDICARE (WNR) MEDICARE () PART A Aug 11, 2014 PART A [id number] ARCHAMBEA SHAQ Wagner PATIENT MEDICARE (WNR) MEDICARE () PART B Aug 11, 2014 PART B [id number] ARCHAMBEA U,SHAQ PATIENT MEDICARE (WNR) MEDICARE () PART A Aug 11, 2014 PART A [id number] ARCHAMBEA U,SHAQ PATIENT MEDICARE (WNR) MEDICARE () PART B Aug 11, 2014 PART B [id number] ARCHAMBEA Bernard,SHAQ PATIENT MEDICARE (WNR) MEDICARE () PART A Aug 11, 2014 PART A [id number] ARCHAMBEA U,SHAQ PATIENT MEDICARE (WNR) MEDICARE () PART B Aug 11, 2014 PART B [id number] ARCHAMBEA U,SHAQ PATIENT MEDICARE (WNR) MEDICARE () PART B Aug 11, 2014 PART B [id number] [phone] ARCHAMBEA SHAQ Wagner PATIENT [facility] (WNR) MEDICARE ADVANTAGE [facility] (WNR) May 13, 2020 [id number] ARCHAMBEA USHAQ PATIENT Selected Encounter This section includes the information on record at [place] for the Encounter. Date/Time Encounter Type Encounter Description Reason Pro vider Source Jun 29, 2023 09:47 AM Outpatient Encounter ADMIN PAT ACTIVTIES (MASNONCT) IHE Encounter Template Text not used by [place] Plan of Treatment: Future Appointments (+ 6 months) and Future Tests (+/- 45 days) The Plan of Treatment section includes future care activities for the patient from all [place] treatmentfaunc health rexities. This section includes future appointments and future [...] 04, 2023 09:00 AM AMBULATORY - MEDICINE [facility] Jul 05, 2023 08:45 AM AMBULATORY - MEDICINE [place] [facility] [place] [facility] Jul 17, 2023 11:00 AM AMBULATORY - [facility]HAB MEDICIN [facility] [place] [facility] Aug 12, 2023 07:30 AM AMBULATORY - REHAB MEDICIN E [facility] [place] [facility] Aug 30, 2023 08:45 AM AMBULATORY - MEDICINE [place] [facility] [place] [facility] October 02, 2023 08:00 AM AMBULATORY - REHAB MEDICIN E [facility] [place] [facility] October 08, 2023 11:00 AM [facility] October 09, 2023 08:30 AM AMBULATORY - MEDICINE [place] [facility] [place] [facility] Oct 23, 2023 08:30 AM AMBULATORY - MEDICINE [facility] Nov 19, 2023 08:30 AM AMBULATORY - MEDICINE [place] [facility] [place] [facility] Nov 28, 2023 07:30 AM AMBULATORY - REHAB MEDICIN E [facility] [place] [facility] Dec 23, 2023 07:30 AM AMBULATORY - MEDICINE [place] [facility] [place] [facility] Dec 23, 2023 03:15 PM AMBULATORY - MEDICINE [facility] Lab Results: +/- 30 days of the [...] Range Comment Jun 27, 2023 07:32 AM [facility] LIPID PANEL FASTING Specimen Type: SERUM No comment entered. Ordering Provider: NEHEMIAH DAVIES Report Released Date/Time: Nov 09, 2022 12:33 PM Reporting Lab: [facility] [address] [address] Performing Lab: [address] [address] CHOLESTEROL 156 mg/dL TRIGLYCERIDE 83 mg/dL 0-150 LDL calculated 78 mg/dL 0-129 CHOL/HDL 2.6 HDL CHOLESTEROL 61 mg/dL H 40-60 Jun 27, 2023 07:32 AM [facility] BASIC METABOLIC PANEL (fasting) Specime n Type: SERUM No comment entered. Ordering Provider: NEHEMIAH DAVIES Report Released Date/Time: Nov 09, 2022 12:33 PM Reporting Lab: [facility] [address] [address] Performing Lab: [facility] [address] UREA NITROGEN 18 mg/dL 7-25 GLUCOSE 96 mg/dL 65-100 SODIUM 141 mmol/L 135-145 POTASSIUM 4.8 mmol/L 3.5-5.0 CHLORIDE 106 mmol/L 100-110 CO2 28 meq/L 20-30 CREATININE, Serum 1.11 mg/dL 0.50-1.40 eGFR(CKD-EPI 2020) 70 mL/min >60 Jun 27, 2023 07:32 AM [facility] LIVER FUNCTION Specimen Type: SERUM No comment entered. Ordering Provider: NEHEMIAH DAVIES Report Released Date/Time: Nov 09, 2022 12:33 PM Reporting Lab: [facility] [address] [address] Performing Lab: [address] [address] PROTEIN,TOTAL 6.7 g/dL 6.0-8.3 ALBUMIN 4.1 g/dL 3.5-5.0 ALKALINE PHOSPHATASE 66 U/L 40-150 AST 14 U/L 5-34 ALT 21 U/L BILIRUBIN, TOTAL 0.4 mg/dL 0.2-1.2 Jun 27, 2023 07:32 AM [facility] VITAMIN D (25-OH) Specimen Type: SERUM No comment entered. Ordering Provider: NEHEMIAH DAVIES Report Released Date/Time: Nov 09, 2022 12:33 PM Reporting Lab: [address] [address] Performing Lab: [address] [address] VITAMIN D (25-OH) 48 ng/mL 20-50 Jun 27, 2023 07:32 AM [facility] VITAMIN B12 Specimen Type: SERUM No comment entered. Ordering Provider: NEHEMIAH DAVIES Report Released Date/Time: Nov 09, 2022 12:33 PM Reporting Lab: [address] [address] Performing Lab: [address] [address] VITAMIN B12 591 pg/mL 200-900 Jun 27, 2023 07:32 AM [facility] MAGNESIUM Specimen Type: SERUM No comment entered. Ordering Provider: NEHEMIAH DAVIES Report Released Date/Time: Nov 09, 2022 12:33 PM Reporting Lab: [address] [address] Performing Lab: [address] [address] MAGNESIUM 2.1 mg/dL 1.6-2.6 Jun 27, 2023 07:32 AM [facility] CBC AND DIFF (AUTO) Specimen Type: BLOOD No comment entered. Ordering Provider: NEHEMIAH DAVIES Report Released Date/Time: Nov 09, 2022 12:33 PM Reporting Lab: [address] [place] [address] Performing Lab: [facility] [address] [facility] [address] WBC 8.96 10*3/uL 4.50-11.00 RBC 4.81 10*6/uL 4.23-5.66 HGB 14.0 g/dL 12.8-17 HCT 42.4 39.2-50.4 MCV 88.1 fL 82-99 MCHC 33.0 g/dL 30.8-35.1 PLT 312 10*3/uL 140-360 RDW-CV 12.3 12.0-16.0 [place], Abs 0.59 10*3/uL 0.30-1.10 MCH 29.1 pg 26.2-32.6 Neut % 65.4 43.7-75.8 Lymph % 21.4 14.0-42.3 [place] % 6.6 5.1-13.7 Eos % 4.4 0.4-6.8 [...] ity Mar 14, 2022 03:02 PM VA-TOBACCO QUIT 15 YRS OR MORE [facility] Tobacco Use History This section includes a history of the smoking, or tobacco-related health factors, that were collected on or before the date of the Encounter. The data comes from the [place] facility where the Encounter took place. Date/Time Smoking Status/Tobacco Use Comment F acility Mar 14, 2022 03:02 PM VA-TOBACCO QUIT 15 YRS [facility] Feb 08, 2021 09:00 AM VA-TOBACCO FORMER USER [place] [facility] [place] [facility] Feb 08, 2021 09:00 AM VA-TOBACCO QUIT 15 YRS OR MORE [facility] October 09, 2019 01:12 PM VA-TOBACCO FORMER USER [facility] October 09, 2019 01:12 PM VA-TOBACCO QUIT 5 TO < 15 YRS [facility] Advance Directives: All historical and current Section Date Range: From patient's date of to the date document was created. This section includes ALL of a patient's completed or amended [place] Advance and Rescinded Directives. The entries below indicate that a directive exists for the patient, but an actual copy is not included with this document. The data comes from all [place] facilities. Date Advance Directives Provider Source Feb 21, 2021 ADVANCE DIRECTIVE BEL ESCALANTE [facility] Radiology Reports: +/- 30 days of [...] the Encounter. The data comes from all [place] treatment facilities. Date/Time Radiology Report Provider Source Jul 17, 2023 11:09 AM FLUOROSCOPIC NITIN NCE OF NEEDLE/SPINE: SHAQ GREGORIO [id number] -[id number] M Exm Date: JUL 17, 2023@11:09 Req Phys: BERNABE PRIETO Pat Loc: CWM/NO/MED REHAB/SPINE INJ (Re Img Loc: [facility]BUILDING 1 Service: Unknown (Case [id number] COMPLETE) FLUOROSCOPIC GUIDANCE OF NEEDLE/S(RAD Detailed) CPT:17962 Reason for Study: transforaminal epidural steroid injection Clinical History: Report Status: Verified Date Reported: JUL 17, 2023 Date Verified: JUL 17, 2023 Coil Machine Supervisor E-Sig:/ES/LOU VICTORIA JR Report: Study: Pain [...] Primary Interpreting Staff: LOU VICTORIA JR, Radiologist (Coil Machine Supervisor) /LOU WASHINGTON JR [facility] Encounter Notes: All associated encounter notes This section contains the clinical notes associated to the Encounter. Date/Time Encounter Note(s) Provider Source Jun 29, 2023 09:47 AM ADMINISTRATIVE NOT E: LOCAL TITLE: CCC: SCHEDULING ADMINISTRATION STANDARD TITLE: ADMINISTRATIVE NOTE DATE OF NOTE: JUN 29, 2023@09:47 ENTRY DATE: JUN 29, 2023@09:47:27 AUTHOR: JAIME VERA EXP COSIGNER: URGENCY: STATUS: COMPLETED Medication Verify Patient Demographics Successfully verified patient demographics Medication support request: Medication renewal Refill would like these mailed out OXYCODONE 5MG/APAP 325MG TAB OXYCODONE HCL 5MG/APAP 325MG TAB TAKE 1 TABLET BY MOUTH THREE TIMES A DAY FOR PAIN Quantity: 84 Refills: 0 Indication: FOR PAIN /robe/ JAIME LINDQUIST Signed: 06/29/2023 09:48 Receipt Acknowledged By: 06/30/2023 09:57 /es/ NEHEMIAH CUEVAS MD PHYSICIAN 07/02/2023 09:13 /es/ MILI DEAN RN REGISTERED NURSE JAIME VERA [facility]
--- OUTSIDE RECORDS SUMMARY | 2024-04-28 10:55 | XMS_ITS | Encounter Summary ---
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 Signed: 07/04/2023 14:10 Receipt Acknowledged By: 07/04/2023 14:23 /robe/ JOSE GALLEGOS [place]
--- OUTSIDE RECORDS SUMMARY | 2024-04-28 10:55 | XMS_ITS ---
Author Name [facility] [place] [facility] [place] [facility] [place] Address [address] [place] [id number] Care Team Providers Care Ore Bridge Operator Name Role Phone SHAHNAZ NOEL Primary Care Provide r Unavailable Insurance [...] ANA [facility] Aug 11, 2014 [id number] [phone] DHAVAL WagnerSHAQ PATIENT [facility] SUPPLEMEN ARTEMIO [facility] Aug 11, 2014 [id number] DHAVAL SHAQ Wagner [facility] ARTEMIO MEDEX 2 Aug 11, 2014 [id number] DHAVAL SHAQ Wagner [facility] SUPPLEMEN ARTEMIO MEDEX 2 Aug 11, 2014 [id number] DHAVAL SHAQ Wagner PATIENT [place] MED[place] SUPPLEMEN ARTEMIO MEDEX 2 Aug 11, 2014 [id number] ARCHOCTAVIOEA SHAQ Wagner [employer] MEDICARE SUPPLEMEN [facility] [facility] [facility] [place] Aug 11, 2014 [id number] [phone] SHAQ WONG PATIENT USMANA [facility] (WNR) MEDICARE ADVANTAGE HUMAN A INSUR [facility] Jan 11, 2022 [id number] [phone] ARCHOCTAVIOEA SHAQ Wagner PATIENT USMANA [facility] (WNR) MEDICARE ADVANTAGE [facility] (WNR) Jan 11, 2022 [id number] [phone] [place]A SHAQ Wagner PATIENT MEDICARE (WNR) MEDICARE () PART A Dec 11, 2014 PART A [id number] [place] SHAQ Wagner PATIENT MEDICARE ([place]NR) MEDICARE () PART A Aug 11, 2014 PART A [id number] [place] SHAQ Wagner PATIENT MEDICARE ([place]) MEDICARE () PART B Aug 11, 2014 PART B [id number] [place] SHAQ Wagner PATIENT MEDICARE ([place]NR) MEDICARE () PART A Aug 11, 2014 PART A [id number] [phone] [place] SHAQ Wagner PATIENT MEDICARE ([place]NR) MEDICARE () PART B Aug 11, 2014 PART B [id number] [place] SHAQ Wagner PATIENT MEDICARE ([place]NR) MEDICARE () PART A Aug 11, 2014 PART A [id number] [place] SHAQ Wagner PATIENT MEDICARE ([place]NR) MEDICARE () PART B Aug 11, 2014 PART B [id number] AR[place] SHAQ Wagner PATIENT MEDICARE ([place]NR) MEDICARE () PART B Aug 11, 2014 PART B [id number] AR[place] SHAQ Wagner [facility] (WNR) MEDICARE ADVANTAGE [facility] (WNR) May 13, 2020 [id number] [phone] ARCHAMBEA SHAQ Wagner PATIENT Selected Encounter This section includes the information on record at [place] for the Encounter. Date/Time Encounter Type Encounter Description Reason Pro vider Source Jun 30, 2023 09:50 AM Outpatient Encounter PRIMARY CARE/MEDICINE IHE Encounter Template Text not used by [place] Plan of Treatment: Future Appointments (+ 6 months) and Future Tests (+/- 45 days) The Plan of Treatment section includes future care activities for the patient from all [place] treatmentfacilities. This section includes future appointments and future orders which are active, pending or scheduled. Future Appointments This section includes appointments that were scheduled to occur 6 months from the date of the Encounter, up to a maximum of 20 appointments. The data comes from all [place] treatment facilities. Appointment Date/Time Appointment Type Appointme nt Facility Name Jul 04, 2023 09:00 AM AMBULATORY - MEDICINE [facility] Jul 05, 2023 08:45 AM AM[place]ORY [place] [facility] [facility] [place] [facility] Jul 17, 2023 11:00 AM AMBULATORY - [facility]ICIN [facility] [place] [facility] Aug 12, 2023 07:30 AM AMBULATORY - [facility]AB MEDICIN [facility] [place] [facility] Aug 30, 2023 08:45 AM AMBULATORY [place] [facility] [facility] [place] [facility] October 02, 2023 08:00 AM AMBULATORY - REHAB MEDICIN [facility] [place] [facility] October 08, 2023 11:00 AM AMBULATORY - MEDICINE [facility] October 09, 2023 08:30 AM [facility] [place] [facility] [facility] [place] [facility] Oct 23, 2023 08:30 AM AMBULATORY - MEDICINE [facility] Nov 19, 2023 08:30 AM [facility] [place] [facility] [facility] [place] [facility] Nov 28, 2023 07:30 AM AMBULATORY - REHAB MEDICIN [facility] [place] [facility] Dec 23, 2023 07:30 AM AM[place]ORY [place] [facility] [facility] [place] [facility] Dec 23, 2023 03:15 PM AMBULATORY - MEDICINE [facility] Lab Results: +/- 30 days of the encounter This section includes the Chemistry and Hematology Lab Results on record with [place] for the patient. Radiology Reports and Pathology Reports are provided separately, in subsequent sections. Lab Results This section contains the Chemistry/Hematology Results that were resulted 30 days before or 30 daysafter the date of the Encounter. Date/Time Source Result Type Result - Unit Interpretation Reference Range Comment Jun 27, 2023 07:32 AM [facility] BASIC METABOLIC PANEL (fasting) Specime n Type: SERUM No comment entered. Ordering Provider: SHAHNAZ DAVIES Report Released Date/Time: Nov 09, 2022 12:33 PM Reporting Lab: [address] [address] Performing Lab: [address] [address] UREA NITROGEN 18 mg/dL 7-25 GLUCOSE 96 mg/dL 65-100 SODIUM 141 mmol/L 135-145 POTASSIUM 4.8 mmol/L 3.5-5.0 CHLORIDE 106 mmol/L 100-110 CO2 28 meq/L 20-30 CREATININE, Serum 1.11 mg/dL 0.50-1.40 eGFR(CKD-EPI 2020) 70 mL/min >60 Jun 27, 2023 07:32 AM [facility] LIPID PANEL FASTING Specimen Type: SERUM No comment entered. Ordering Provider: SHAHNAZ DAVIES Report Released Date/Time: Nov 09, 2022 12:33 PM Reporting Lab: [address] [address] Performing Lab: [address] [address] CHOLESTEROL 156 mg/dL TRIGLYCERIDE 83 mg/dL 0-150 LDL calculated 78 mg/dL 0-129 CHOL/HDL 2.6 HDL CHOLESTEROL 61 mg/dL H 40-60 Jun 27, 2023 07:32 AM [facility] VITAMIN D (25-OH) Specimen Type: SERUM No comment entered. Ordering Provider: SHAHNAZ DAVIES Report Released Date/Time: Nov 09, 2022 12:33 PM Reporting Lab: [address] [address] Performing Lab: [address] [address] VITAMIN D (25-OH) 48 ng/mL 20-50 Jun 27, 2023 07:32 AM [facility] LIVER FUNCTION Specimen Type: SERUM No comment entered. Ordering Provider: SHAHNAZ DAVIES Report Released Date/Time: Nov 09, 2022 12:33 PM Reporting Lab: [facility] [address] [address] Performing Lab: [address] [address] PROTEIN,TOTAL 6.7 g/dL 6.0-8.3 ALBUMIN 4.1 g/dL 3.5-5.0 ALKALINE PHOSPHATASE 66 U/L 40-150 AST 14 U/L 5-34 ALT 21 U/L BILIRUBIN, TOTAL 0.4 mg/dL 0.2-1.2 Jun 27, 2023 07:32 AM [place] VITAMIN B12 Specimen Type: SERUM No comment entered. Ordering Provider: SHAHNAZ DAVIES Report Released Date/Time: Nov 09, 2022 12:33 PM Reporting Lab: [address] [address] Performing Lab: [address] [address] VITAMIN B12 591 pg/mL 200-900 Jun 27, 2023 07:32 AM [facility] MAGNESIUM Specimen Type: SERUM No comment entered. Ordering Provider: SHAHNAZ DAVIES Report Released Date/Time: Nov 09, 2022 12:33 PM Reporting Lab: [address] [address] Performing Lab: [address] [address] MAGNESIUM 2.1 mg/dL 1.6-2.6 Jun 27, 2023 07:32 AM [facility] CBC AND DIFF (AUTO) Specimen Type: BLOOD No comment entered. Ordering Provider: SHAHNAZ DAVIES Report Released Date/Time: Nov 09, 2022 12:33 PM Reporting Lab: [facility] [address] [address] Performing Lab: [facility] [address] [facility] [address] WBC 8.96 10*3/uL 4.50-11.00 RBC 4.81 10*6/uL 4.23-5.66 HGB 14.0 g/dL 12.8-17 HCT 42.4 39.2-50.4 MCV 88.1 fL 82-99 MCHC 33.0 g/dL 30.8-35.1 PLT 312 10*3/uL 140-360 RDW-CV 12.3 12.0-16.0 Dillon, Abs 0.59 10*3/uL 0.30-1.10 MCH 29.1 pg 26.2-32.6 Neut % 65.4 43.7-75.8 Lymph % 21.4 14.0-42.3 Dillon % 6.6 5.1-13.7 Eos % 4.4 0.4-6.8 [...] and tobacco- related health factors from the [place] facility where the Encounter took place. Current Smoking Status This section includes the most current smoking, or tobacco-related health factor, from the [place] facility where the Encounter took place. Date/Time Current Smoking Status Comment Facil ity Mar 14, 2022 03:02 PM VA-TOBACCO FORMER USER [facility] Tobacco Use History This section includes a history of the smoking, or tobacco-related health factors, that were collected on or before the date of the Encounter. The data comes from the [place] facility where the Encounter took place. Date/Time Smoking Status/Tobacco Use Comment F acility Mar 14, 2022 03:02 PM VA-TOBACCO QUIT 15 YRS OR MORE [facility] [place] [facility] Feb 08, 2021 09:00 AM VA-TOBACCO FORMER USER [facility] [place] [facility] Feb 08, 2021 09:00 AM VA-TOBACCO QUIT 15 YRS OR MORE [facility] [place] [facility] October 09, 2019 01:12 PM VA-TOBACCO FORMER USER [facility] [place] [facility] October 09, 2019 01:12 PM VA-TOBACCO QUIT 5 TO < 15 YRS [facility] Advance Directives: All historical and current Section Date Range: From patient's date of to the date document was created. This section includes ALL of a patient's completed or amended [place] Advance and Rescinded Directives. The entries below indicate that a directive exists for the patient, but an actual copy is not included with this document. The data comes from all [place] facilities. Date Advance Directives Provider Source Feb 21, 2021 ADVANCE DIRECTIVE BEL [facility] Radiology Reports: +/- 30 days of [...] the Encounter. The data comes from all [place] treatment facilities. Date/Time Radiology Report Provider Source Jul 17, 2023 11:09 AM FLUOROSCOPIC NITIN NCE OF NEEDLE/SPINE: SHAQ GREGORIO [id number] -[id number] M Exm Date: JUL 17, 2023@11:09 Req Phys: BERNABE PRIETO Pat Loc: C[facility]/NO/MED REHAB/SPINE INJ (Re Img Loc: [facility]/BUILDING 1 Service: Unknown (Case [id number] COMPLETE) FLUOROSCOPIC GUIDANCE OF NEEDLE/S(RAD Detailed) CPT:79665 Reason for Study: transforaminal epidural steroid injection Clinical History: Report Status: Verified Date Reported: JUL 17, 2023 Date Verified: JUL 17, 2023 Lpn Rn E-Sig:/ES/LOU VICTORIA JR Report: Study: Pain injection [...] Primary Interpreting Staff: LOU VICTORIA JR, Radiologist (Lpn Rn) /LOU WASHINGTON JR [facility] Encounter Notes: All associated encounter notes This section contains the clinical notes associated to the Encounter. Date/Time Encounter Note(s) Provider Source Jun 30, 2023 09:56 AM ACCOUNTING OF DISC LOSURES NOTE: LOCAL TITLE: STATE PRESCRIPTION DRUG MONITORING PROGRAM STANDARD TITLE: ACCOUNTING OF DISCLOSURES NOTE DATE OF NOTE: JUN 30, 2023@09:56:53 ENTRY DATE: JUN 30, 2023@09:56:53 AUTHOR: Anali NOEL COSIGNER: URGENCY: STATUS: COMPLETED This PDMP query was submitted by Shahnaz Noel. The clinical justification for this PDMP query is to review controlled substances prescribed outside of the [facility], and any additional information that may become available, as an important component of standard clinical care, and in accordance with [facility] policy. Patient information was shared with the PDMP Appriss Schlater. No prescription(s) for controlled substances outside the [facility] were found in the last 90 days. /robe/ SHAHNAZ NOEL MD PHYSICIAN Signed: 06/30/2023 09:56 BABAK NOEL [place]
--- OUTSIDE RECORDS SUMMARY | 2024-04-28 10:55 | XMS_ITS | Encounter Summary ---
Author Name [facility] [place] [facility] [place] Address [address] [place] [id number] Care Team Providers Care Print Color Matcher Name Role Phone NEHEMIAH CUEVAS Primary Care [...] Name Patient's Relationship to Policy [facility] Aug 11, 2014 [id number] [phone] DHAVAL SHAQ Wagner PATIENT ANA BCBS [facility]LY [facility] MEDICARE SUPPLEMEN [facility] Aug 11, 2014 [id number] [phone] DHAVAL SHAQ [facility] SUPPLEMEN [facility] Aug 11, 2014 [id number] DHAVAL SHAQ Wagner PATIENT [place] SUPPLEMEN [facility] Aug 11, 2014 [id number] [phone] ARCHAMBRENATA SHAQ Wagner PATIENT [place] SUPPLEMEN [facility] 2 Aug 11, 2014 [id number] ARCHAMBEA SHAQ Wagner PATIENT [place] MEDICARE SUPPLEMEN [facility] [place] [facility] Aug 11, 2014 [id number] [phone] SHAQ WONG PATIENT USMANA [facility] (WNR) MEDICARE ADVANTAGE [facility] (WNR) Jan 11, 2022 [id number] [phone] ARCHOCTAVIOEA SHAQ Wagner PATIENT USMANA [facility] (WNR) MEDICARE ADVANTAGE HUMAN A INSUR ANCE [facility] Jan 11, 2022 [id number] [phone] ARCHAMBEA SHAQ Wagner PATIENT MEDICARE (WNR) MEDICARE () PART A Dec 11, 2014 PART A [id number] [phone] ARCHAMBEA Bernard,SHAQ PATIENT MEDICARE (WNR) MEDICARE () PART B Aug 11, 2014 PART B [id number] ARCHAMBEA Bernard,SHAQ PATIENT MEDICARE (WNR) MEDICARE () PART A Aug 11, 2014 PART A [id number] ARCHAMBEA Bernard,SHAQ PATIENT MEDICARE (WNR) MEDICARE () PART B Aug 11, 2014 PART B [id number] [phone] ARCHAMBEA Bernard,SHAQ PATIENT MEDICARE (WNR) MEDICARE () PART A Aug 11, 2014 PART A [id number] [phone] ARCHAMBEA Bernard,SHAQ PATIENT MEDICARE (WNR) MEDICARE () PART B Aug 11, 2014 PART B [id number] ARCHAMBEA Bernard,SHAQ PATIENT MEDICARE (WNR) MEDICARE () PART A Aug 11, 2014 PART A [id number] [phone] ARCHAMBEA Bernard,SHAQ PATIENT MEDICARE (WNR) MEDICARE () PART B Aug 11, 2014 PART B [id number] ARCHAMBEA SHAQ Wagner [facility] (WNR) MEDICARE ADVANTAGE [facility] (WNR) May 13, 2020 [id number] ARCHAMBEA SHAQ Wagner PATIENT Selected Encounter This section includes the information on record at [place] for the Encounter. Date/Time Encounter Type Encounter Description Reason Pro vider Source Jul 03, 2023 12:34 PM Outpatient Encounter COMMUNITY CARE CONSULT IHE Encounter Template Text not used by [facility] Plan of Treatment: Future Appointments (+ 6 months) and Future Tests (+/- 45 days) The Plan of Treatment section includes future care activities for the patient from all [place] treatmentfacilities. This section includes future appointments and future orders which are active, pending or scheduled. Future Appointments This section includes appointments that were scheduled to occur 6 months from the date of the Encounter, up to a maximum of 20 appointments. The data comes from all [place] treatment facilities. Appointment Date/Time Appointment Type Appointme nt Facility Name Jul 04, 2023 09:00 AM AMBULATORY - MEDICINE [facility] Jul 05, 2023 08:45 AM AMBULATORY - MEDICINE [facility] [place] [facility] Jul 17, 2023 11:00 AM AMBULATORY [facility] [place] [facility] Aug 12, 2023 07:30 AM AMBULATORY - [facility]ICIN [facility] [place] [facility] Aug 30, 2023 08:45 AM AMBULATORY - MEDICINE [facility] [place] [facility] October 02, 2023 08:00 AM AMBULATORY - [facility]HAB MEDICIN [facility] [place] [facility] October 08, 2023 11:00 AM AMBULATORY - MEDICINE [facility] October 09, 2023 08:30 AM AMBULATORY - MEDICINE [place] [facility] [place] [facility] Oct 23, 2023 08:30 AM AMBULATORY - MEDICINE [facility] Nov 19, 2023 08:30 AM AMBULATORY - MEDICINE [place] [facility] [place] [facility] Nov 28, 2023 07:30 AM AMBULATORY - [facility]AB MEDICIN [facility] [place] [facility] Dec 23, 2023 07:30 AM AMBULATORY - MEDICINE [facility] [place] [facility] Dec 23, 2023 03:15 PM AMBULATORY - MEDICINE [facility] Lab Results: +/- 30 days of the encounter This section includes the Chemistry and Hematology Lab Results on record with [place] for the patient. Radiology Reports and Pathology Reports are provided separately, in subsequent sections. Lab Results This section contains the Chemistry/Hematology Results that were resulted 30 days before or 30 daysafter the date of the Encounter. Date/Time Source Result Type Result - Unit Interpretation Reference Range Comment Jun 27, 2023 07:32 AM [facility] LIPID PANEL FASTING Specimen Type: SERUM No comment entered. Ordering Provider: NEHEMIAH DAVIES Report Released Date/Time: Nov 09, 2022 12:33 PM Reporting Lab: [facility] [address] Performing Lab: [facility] [address] CHOLESTEROL 156 mg/dL TRIGLYCERIDE 83 mg/dL 0-150 LDL calculated 78 mg/dL 0-129 CHOL/HDL 2.6 HDL CHOLESTEROL 61 mg/dL H 40-60 Jun 27, 2023 07:32 AM [facility] VITAMIN D (25-OH) Specimen Type: SERUM No comment entered. Ordering Provider: NEHEMIAH DAVIES Report Released Date/Time: Nov 09, 2022 12:33 PM Reporting Lab: [facility] [place] [facility] [address] [facility] [address] Performing Lab: [facility] [address] VITAMIN D (25-OH) 48 ng/mL 20-50 Jun 27, 2023 07:32 AM [place] LIVER FUNCTION Specimen Type: SERUM No comment entered. Ordering Provider: NEHEMIAH DAVIES Report Released Date/Time: Nov 09, 2022 12:33 PM Reporting Lab: [facility] [address] [address] Performing Lab: [facility] [address] [address] PROTEIN,TOTAL 6.7 g/dL 6.0-8.3 ALBUMIN 4.1 g/dL 3.5-5.0 ALKALINE PHOSPHATASE 66 U/L 40-150 AST 14 U/L 5-34 ALT 21 U/L BILIRUBIN, TOTAL 0.4 mg/dL 0.2-1.2 Jun 27, 2023 07:32 AM [place] BASIC METABOLIC PANEL (fasting) Specime n Type: SERUM No comment entered. Ordering Provider: NEHEMIAH DAVIES Report Released Date/Time: Nov 09, 2022 12:33 PM Reporting [facility]: [facility] [address] [address] Performing Lab: [facility] [address] [address] UREA NITROGEN 18 mg/dL 7-25 GLUCOSE 96 mg/dL 65-100 SODIUM 141 mmol/L 135-145 POTASSIUM 4.8 mmol/L 3.5-5.0 CHLORIDE 106 mmol/L 100-110 CO2 28 meq/L 20-30 CREATININE, Serum 1.11 mg/dL 0.50-1.40 eGFR(CKD-EPI 2020) 70 mL/min >60 Jun 27, 2023 07:32 AM [place] MAGNESIUM Specimen Type: SERUM No comment entered. Ordering Provider: NEHEMIAH DAVIES Report Released Date/Time: Nov 09, 2022 12:33 PM Reporting Lab: [facility] [address] [address] Performing Lab: [address] [address] MAGNESIUM 2.1 mg/dL 1.6-2.6 Jun 27, 2023 07:32 AM [place] VITAMIN B12 Specimen Type: SERUM No comment entered. Ordering Provider: NEHEMIAH DAVIES Report Released Date/Time: Nov 09, 2022 12:33 PM Reporting [facility]: [facility] [address] [address] Performing Lab: [facility] [address] [address] VITAMIN B12 591 pg/mL 200-900 Jun 27, 2023 07:32 AM [place] CBC AND DIFF (AUTO) Specimen Type: BLOOD No comment entered. Ordering Provider: NEHEMIAH DAVIES Report Released Date/Time: Nov 09, 2022 12:33 PM Reporting Lab: [facility] [address] [address] Performing Lab: [facility] [address] [facility] [address] WBC 8.96 10*3/uL 4.50-11.00 RBC 4.81 10*6/uL 4.23-5.66 HGB 14.0 g/dL 12.8-17 HCT 42.4 39.2-50.4 MCV 88.1 fL 82-99 MCHC 33.0 g/dL 30.8-35.1 PLT 312 10*3/uL 140-360 RDW-CV 12.3 12.0-16.0 Bent, Abs 0.59 10*3/uL 0.30-1.10 MCH 29.1 pg 26.2-32.6 Neut % 65.4 43.7-75.8 Lymph % 21.4 14.0-42.3 Bent % 6.6 5.1-13.7 Eos % 4.4 0.4-6.8 [...] and tobacco- related health factors from the [place] facility where the Encounter took place. Current Smoking Status This section includes the most current smoking, or tobacco-related health factor, from the [place] facility where the Encounter took place. Date/Time Current Smoking Status Comment Facil ity Mar 14, 2022 03:02 PM VA-TOBACCO FORMER USER [facility] Tobacco Use History This section includes a history of the smoking, or tobacco-related health factors, that were collected on or before the date of the Encounter. The data comes from the [place] facility where the Encounter took place. Date/Time Smoking Status/Tobacco Use Comment F acility Mar 14, 2022 03:02 PM VA-TOBACCO QUIT 15 YRS OR MORE IN [facility] [place] [facility] Feb 08, 2021 09:00 AM VA-TOBACCO FORMER USER IN [facility] [place] [facility] Feb 08, 2021 09:00 AM VA-TOBACCO QUIT 15 YRS OR MORE IN [facility] [place] [facility] October 09, 2019 01:12 PM VA-TOBACCO FORMER USER IN [facility] [place] [facility] October 09, 2019 01:12 PM VA-TOBACCO QUIT 5 TO < 15 YRS [facility] Advance Directives: All historical and current Section Date Range: From patient's date of to the date document was created. This section includes ALL of a patient's completed or amended VA Advance and Rescinded Directives. The entries below indicate that a directive exists for the patient, but an actual copy is not included with this document. The data comes from all [place] facilities. Date Advance Directives Provider Source Feb 21, 2021 ADVANCE DIRECTIVE BEL ESCALANTE [facility] Radiology Reports: +/- 30 days of [...] the Encounter. The data comes from all [place] treatment facilities. Date/Time Radiology Report Provider Source Jul 17, 2023 11:09 AM FLUOROSCOPIC NITIN NCE OF NEEDLE/SPINE: SHAQ GREGORIO [id number] -[id number] M Exm Date: JUL 17, 2023@11:09 Req Phys: BERNABE PRIETO THI Pat Loc: [facility]/NO/MED REHAB/SPINE INJ (Re Img Loc: [facility]BUILDING 1 Service: Unknown (Case [id number] COMPLETE) FLUOROSCOPIC GUIDANCE OF NEEDLE/S(RAD Detailed) CPT:83024 Reason for Study: transforaminal epidural steroid injection Clinical History: Report Status: Verified Date Reported: JUL 17, 2023 Date Verified: JUL 17, 2023 Fare Enforcement Officer E-Sig:/ES/EDWARD A VICTORIA JR Report: Study: Pain injection of [...] Primary Interpreting Staff: LOU VICTORIA JR, Radiologist (Jordan) /LOU WASHINGTON JR [facility] Encounter Notes: All associated encounter notes This section contains the clinical notes associated to the Encounter. Date/Time Encounter Note(s) Provider Source Jul 03, 2023 12:34 PM ADMINISTRATIVE NOTE: LOCAL TITLE: ADMINISTRATIVE NOTE STANDARD TITLE: ADMINISTRATIVE NOTE DATE OF NOTE: JUL 03, 2023@12:34 ENTRY DATE: JUL 03, 2023@12:34:36 AUTHOR: BEKAH GARCIA COSIGNER: URGENCY: STATUS: COMPLETED [place] called community care provider to request a referral [place] is being followed by [facility] This [place] has a scheduled Cardiology appointment for this 07-05@[address] Segura has an appointment with Mack Mary Please submit a new community care cardiology consult if in agreement [facility] [address] [place] [address], [place] [address] /robe/ BEKAH GARCIA Signed: 07/03/2023 13:16 Receipt Acknowledged By: 07/05/2023 15:08 /es/ MILI DEAN RN REGISTERED NURSE 07/03/2023 20:40 /es/ NEHEMIAH CUEVAS MD PHYSICIAN 07/08/2023 19:44 /es/ JESSICA LYNN RN STAFF NURSE BEKAH GARCIA [facility]
--- OUTSIDE RECORDS SUMMARY | 2024-04-28 10:55 | XMS_ITS | Encounter Summary ---
Author Name [facility] [place] Organization [facility] [place] Address [address] [place] [id number] Care Team Providers Care Stationary Equipment Mechanic Name Role Phone NEHEMIAH CUEVAS Primary [...] Relationship to Policy [facility]rell[facility] Aug 11, 2014 [id number] [phone] DHAVAL SHAQ Wagner PATIENT ANA [facility] MEDICARE SUPPLEMEN ARTEMIO [facility] Aug 11, 2014 [id number] DHAVAL SHAQ Wagner PATIENT [place] SUPPLEMEN [facility]EX 2 Aug 11, 2014 [id number] DHAVAL SAHQ [facility] SUPPLEMEN ARTEMIO MEDEX 2 Aug 11, 2014 [id number] ARCHSTEPHANIA SAHQ Wagner [place] SUPPLEMEN ARTEMIO MEDEX 2 Aug 11, 2014 [id number] ARCHOCTAVIOEA SHAQ Wagner [facility] BLUECARD MEDICARE SUPPLEMEN [facility] Aug 11, 2014 [id number] SHAQ WONG PATIENT USMANA [facility] (WNR) MEDICARE ADVANTAGE HUMAN A INSUR [facility] Jan 11, 2022 [id number] [phone] ARCHOCTAVIOEA SHAQ Wagner PATIENT USMANA MCR (WNR) MEDICARE ADVANTAGE [facility] (WNR) Jan 11, 2022 [id number] [phone] ARCHAMBEA SHAQ Wagner PATIENT MEDICARE (WNR) MEDICARE () PART A Dec 11, 2014 PART A [id number] [phone] ARCHAMBEA SHAQ Wagner PATIENT MEDICARE ([place]NR) MEDICARE () PART A Aug 11, 2014 PART A [id number] ARCHAMBEA SHAQ Wagner PATIENT MEDICARE ([place]NR) MEDICARE () PART B Aug 11, 2014 PART B [id number] ARCHAMBEA SHAQ Wagner PATIENT MEDICARE ([place]NR) MEDICARE () PART A Aug 11, 2014 PART A [id number] ARCHAMBEA Bernard,SHAQ PATIENT MEDICARE (WNR) MEDICARE () PART B Aug 11, 2014 PART B [id number] [phone] ARCHAMBEA Bernard,SHAQ PATIENT MEDICARE ([place]NR) MEDICARE () PART A Aug 11, 2014 PART A [id number] ARCHAMBEA Bernard,SHAQ PATIENT MEDICARE ([place]NR) MEDICARE (M) PART B Aug 11, 2014 PART B [id number] ARCHAMBEA Bernard,SHAQ PATIENT MEDICARE ([place]NR) MEDICARE (M) PART B Aug 11, 2014 PART B [id number] ARCHAMBEA SHAQ Wagner [facility] (WNR) MEDICARE ADVANTAGE [facility] (WNR) May 13, 2020 [id number] ARCHAMBEA SHAQ Wagner PATIENT Selected Encounter This section includes the information on record at [place] for the Encounter. Date/Time Encounter Type Encounter Description Reason Pro vider Source Jul 04, 2023 09:00 AM Outpatient Encounter PRIMARY CARE/MEDICINE IHE Encounter Template Text not used by [place] Plan of Treatment: Future Appointments (+ 6 months) and Future Tests (+/- 45 days) The Plan of Treatment section includes future care activities for the patient from all [place] treatmentfacilities. This section includes future appointments and future orders which are active, pending or scheduled. Future Appointments This section includes appointments that were scheduled to occur 6 months from the date of the Encounter, up to a maximum of 20 appointments. The data comes from all [place] treatment facilities. Appointment Date/Time Appointment Type Appointme nt Facility Name Jul 05, 2023 08:45 AM [place]ATORY [place] [facility] Jul 17, 2023 11:00 AM AMBULATORY - [facility]ICIN [facility] Aug 12, 2023 07:30 AM AMBULATORY - REHAB MEDICIN E [facility] Aug 30, 2023 08:45 AM AMBULATORY [facility] MEDICINE [facility] [place] October 02, 2023 08:00 AM AMBULATORY - REHAB MEDICIN E [facility] [place] October 08, 2023 11:00 AM [facility]ULATORY - MEDICINE [facility] October 09, 2023 08:30 AM [place] [facility] [place] [facility] Oct 23, 2023 08:30 AM AMBULATORY - MEDICINE [facility] Nov 19, 2023 08:30 AM AM[facility]ULATORY [place] [facility]ICINE [place] [facility] [place] Nov 28, 2023 07:30 AM AMBULATORY - REHAB MEDICIN E [facility] [place] Dec 23, 2023 07:30 AM AM[place]ULATORY [place]INE [place] [facility] [place] [facility] Dec 23, 2023 03:15 PM AMBULATORY - MEDICINE [facility] Lab Results: +/- 30 days of the encounter This section includes the Chemistry and Hematology Lab Results on record with [place] for the patient. Radiology Reports and Pathology Reports are provided separately, in subsequent sections. Lab Results This section contains the Chemistry/Hematology Results that were resulted 30 days before or 30 daysafter the date of the Encounter. Date/Time Source Result Type Result - Unit Interpretation Reference Range Comment Jun 27, 2023 07:32 AM [facility] LIPID PANEL FASTING Specimen Type: SERUM No comment entered. Ordering Provider: NEHEMIAH DAVIES Report Released Date/Time: Nov 09, 2022 12:33 PM Reporting Lab: [address] [address] Performing Lab: [address] [address] CHOLESTEROL 156 mg/dL TRIGLYCERIDE 83 mg/dL 0-150 LDL calculated 78 mg/dL 0-129 CHOL/HDL 2.6 HDL CHOLESTEROL 61 mg/dL H 40-60 Jun 27, 2023 07:32 AM [facility] VITAMIN D (25-OH) Specimen Type: SERUM No comment entered. Ordering Provider: NEHEMIAH DAVIES Report Released Date/Time: Nov 09, 2022 12:33 PM Reporting Lab: [address] [address] Performing Lab: [address] [address] VITAMIN D (25-OH) 48 ng/mL 20-50 Jun 27, 2023 07:32 AM [facility] LIVER FUNCTION Specimen Type: SERUM No comment entered. Ordering Provider: NEHEMIAH DAVIES Report Released Date/Time: Nov 09, 2022 12:33 PM Reporting Lab: [address] [address] [facility] [address] PROTEIN,TOTAL 6.7 g/dL 6.0-8.3 ALBUMIN 4.1 g/dL 3.5-5.0 ALKALINE PHOSPHATASE 66 U/L 40-150 AST 14 U/L 5-34 ALT 21 U/L BILIRUBIN, TOTAL 0.4 mg/dL 0.2-1.2 Jun 27, 2023 07:32 AM [facility] BASIC METABOLIC PANEL (fasting) Specime n Type: SERUM No comment entered. Ordering Provider: PAPI DAVIESKA M Report Released Date/Time: Nov 09, 2022 12:33 PM Reporting Lab: [address] [address] Performing Lab: [address] [address] UREA NITROGEN 18 mg/dL 7-25 GLUCOSE 96 mg/dL 65-100 SODIUM 141 mmol/L 135-145 POTASSIUM 4.8 mmol/L 3.5-5.0 CHLORIDE 106 mmol/L 100-110 CO2 28 meq/L 20-30 CREATININE, Serum 1.11 mg/dL 0.50-1.40 eGFR(CKD-EPI 2020) 70 mL/min >60 Jun 27, 2023 07:32 AM [facility] VITAMIN B12 Specimen Type: SERUM No comment entered. Ordering Provider: NEHEMIAH DAVIES Report Released Date/Time: Nov 09, 2022 12:33 PM Reporting Lab: [address] [address] Performing Lab: [address] [address] VITAMIN B12 591 pg/mL 200-900 Jun 27, 2023 07:32 AM [facility] MAGNESIUM Specimen Type: SERUM No comment entered. Ordering Provider: NEHEMIAH DAVIES Report Released Date/Time: Nov 09, 2022 12:33 PM Reporting Lab: [address] [address] Performing Lab: [address] [address] MAGNESIUM 2.1 mg/dL 1.6-2.6 Jun 27, 2023 07:32 AM [facility] CBC AND DIFF (AUTO) Specimen Type: BLOOD No comment entered. Ordering Provider: NEHEMIAH DAVIES Report Released Date/Time: Nov 09, 2022 12:33 PM Reporting Lab: [address] [address] Performing Lab: [address] [place] [address] WBC 8.96 10*3/uL 4.50-11.00 RBC 4.81 10*6/uL 4.23-5.66 HGB 14.0 g/dL 12.8-17 HCT 42.4 39.2-50.4 MCV 88.1 fL 82-99 MCHC 33.0 g/dL 30.8-35.1 PLT 312 10*3/uL 140-360 RDW-CV 12.3 12.0-16.0 [place], Abs 0.59 10*3/uL 0.30-1.10 MCH 29.1 pg 26.2-32.6 Neut % 65.4 43.7-75.8 Lymph % 21.4 14.0-42.3 [place] % 6.6 5.1-13.7 Eos % 4.4 0.4-6.8 [...] and tobacco- related health factors from the [place] facility where the Encounter took place. Current Smoking Status This section includes the most current smoking, or tobacco-related health factor, from the [place] facility where the Encounter took place. Date/Time Current Smoking Status Comment Facil ity Jul 04, 2023 09:00 AM [place]-TOBACCO FORMER USER [facility] Tobacco Use History This section includes a history of the smoking, or tobacco-related health factors, that were collected on or before the date of the Encounter. The data comes from the [place] facility where the Encounter took place. Date/Time Smoking Status/Tobacco Use Comment F acility Jul 04, 2023 09:00 AM [place]-TOBAC[place] QUIT 15 YRS OR MORE [facility] Mar 14, 2022 03:02 PM VA-TOBACCO FORMER USER [facility] Mar 14, 2022 03:02 PM VA-TOBACCO QUIT 15 YRS OR MORE [facility] Feb 08, 2021 09:00 AM VA-TOBACCO FORMER USER [facility] Feb 08, 2021 09:00 AM VA-TOBACCO QUIT 15 YRS OR MORE [facility] [place] October 09, 2019 01:12 PM VA-TOBACCO FORMER USER [facility] [place] October 09, 2019 01:12 PM VA-TOBACCO QUIT 5 TO < 15 YRS [facility] [place] Advance Directives: All historical and current Section Date Range: From patient's date of to the date document was created. This section includes ALL of a patient's completed or amended [place] Advance and Rescinded Directives. The entries below indicate that a directive exists for the patient, but an actual copy is not included with this document. The data comes from all [place] facilities. Date Advance Directives Provider Source Feb 21, 2021 ADVANCE DIRECTIVE [facility] Radiology Reports: +/- 30 days of [...] the Encounter. The data comes from all [place] treatment facilities. Date/Time Radiology Report Provider Source Jul 17, 2023 11:09 AM FLUOROSCOPIC NITIN NCE OF NEEDLE/SPINE: SHAQ GREGORIO [id number] -[id number] M Exm Date: JUL 17, 2023@11:09 Req Phys: BERNABE PRIETO Pat Loc: [facility]/NO/MED REHAB/SPINE INJ (Re Img Loc: [facility]BUILD[facility] 1 Service: Unknown (Case [id number] COMPLETE) FLUOROSCOPIC GUIDANCE OF NEEDLE/S(RAD Detailed) CPT:85946 Reason for Study: transforaminal epidural steroid injection Clinical History: Report Status: Verified Date Reported: JUL 17, 2023 Date Verified: JUL 17, 2023 Driver License Agent E-Sig:/ES/LOU VICTORIA JR Report: Study: Pain injection [...] Primary Interpreting Staff: LOU VICTORIA JR, Radiologist (Driver License Agent) /LOU WASHINGTON JR [facility] Encounter Notes: All associated encounter notes This section contains the clinical notes associated to the Encounter. Date/Time Encounter Note(s) Provider Source Jul 04, 2023 09:14 AM PREVENTIVE MEDICIN E NURSING NOTE: LOCAL TITLE: CLINICAL REMINDERS/NURSING STANDARD TITLE: PREVENTIVE MEDICINE NURSING NOTE DATE OF NOTE: JUL 04, 2023@09:14 ENTRY DATE: JUL 04, 2023@09:14:55 AUTHOR: NATA MULLIGAN EXP COSIGNER: URGENCY: STATUS: COMPLETED Influenza Immunization: The patient has received the seasonal influenza vaccine for the current season at another location. Documented: INFLUENZA, UNSPECIFIED FORMULATION Historical Date Administered: Feb 2023 Exact date unknown Information Source: SOURCE UNSPECIFIED RHS Screen: RHS Screen Environmental Check Screening was not completed at this time due to: Another adult present Sexual Orientation: The patient thinks of their sexual orientation as: Straight or Heterosexual Alcohol Use Screen (AUDIT-C): Alcohol Screen: SCREEN FOR ALCOHOL (AUDIT-C) An alcohol screening test (AUDIT-C) was negative (score=1). 1. How often did you have a drink containing alcohol in the past year? Consider a drink to be a 12 ounce can or bottle of regular beer, 8 ounces of malt liquor, a 5 ounce glass of table wine, or a 1.5 ounce shot of liquor (like scotch, gin, or vodka). Monthly or less 2. How many drinks containing alcohol did you have on a typical day when you were drinking in the past year? One or two drinks 3. How often did you have six or more drinks on one occasion in the past year? Never Tobacco Use Screening: The patient is a former tobacco user. The patient quit fifteen or more years ago. Depression Screening: Perform PHQ-2 A PHQ-2 screen was performed. The score was 0 which is a negative screen for depression. Over the past two weeks, how often have you been bothered by the following problems? 1. Little interest or pleasure in doing things Not at all 2. Feeling down, depressed, or hopeless Not at all Homelessness/Food Insecurity Screen: In the past 2 months, have you been living in stable housing that you own, rent, or stay in as part of a household? Yes - Living in stable housing. Are you worried or concerned that in the next 2 months you may NOT have stable housing that you own, rent, or stay in as part of a household? No - Not worried about housing near future The reports the following: Within the past 12 months, you worried whether your food would run out before you got money to buy more. Never true Within the past 12 months, the food you bought just didn't last and you didn't have money to get more. Never true Advance Directive Screen MH AD: Patient has an Advance Directive on file at this [facility]. No updates are needed at this time. The patient received education about Advance Directives and written notification of his/her rights. Comment: DENIES ANY CHANGES COVID VACCINE - WILL SCHEDULE WHEN READY EYE EXAM - GOES TO [place] /robe/ NATA MULLIGAN LPN LPN Signed: 07/04/2023 09:18 NATA MULLIGAN
--- OUTSIDE RECORDS SUMMARY | 2024-04-28 10:56 | XMS_ITS ---
Author Name [facility] [place] [facility] [place] [facility] [place] [facility] [place] Address [address] [place] [address] Care Team Providers Care Fur Cutter Name Role Phone NEHEMIAH CUEVAS Primary Care [...] Name Patient's Relationship to Policy Orellana ANA [facility] Aug 11, 2014 [id number] DHAVAL SHAQ Wagner PATIENT ANA [facility] MEDICARE SUPPLEMEN ARTEMIO [facility] Aug 11, 2014 [id number] [phone] DHAVAL SHAQ Wagner PATIENT [facility] MEDICARE SUPPLEMEN ARTEMIO MEDEX 2 Aug 11, 2014 [id number] DHAVAL SHAQ Wagner PATIENT [facility] MEDICARE SUPPLEMEN ARTEMIO MEDEX 2 Aug 11, 2014 [id number] DHAVAL SHAQ [facility] SUPPLEMEN ARTEMIO MEDEX 2 Aug 11, 2014 [id number] [phone] ARCHAMBEA SHAQ Wagner PATIENT [facility] [place] [facility] MEDICARE SUPPLEMEN [facility] [place] [place] [facility] Aug 11, 2014 [id number] [phone] LAURIEEA SHAQ Wagner PATIENT HUMANA [facility] (WNR) MEDICARE ADVANTAGE HUMAN A INSUR [facility] Jan 11, 2022 [id number] [phone] ARCHOCTAVIOEA SHAQ Wagner PATIENT USMANA [facility] (WNR) MEDICARE ADVANTAGE [facility] (WNR) Jan 11, 2022 [id number] [phone] ARCHAMBEA SHAQ Wagner PATIENT MEDICARE (WNR) MEDICARE () PART A Dec 11, 2014 PART A [id number] ARCHAMBEA U,SHAQ PATIENT MEDICARE (WNR) MEDICARE () PART B Aug 11, 2014 PART B [id number] ARCHAMBEA SHAQ Wagner PATIENT MEDICARE (WNR) MEDICARE () PART A Aug 11, 2014 PART A [id number] [phone] ARCHAMBEA U,SHAQ PATIENT MEDICARE (WNR) MEDICARE () PART B Aug 11, 2014 PART B [id number] ARCHAMBEA U,SHAQ PATIENT MEDICARE (WNR) MEDICARE () PART A Aug 11, 2014 PART A [id number] ARCHAMBEA Bernard,SHAQ PATIENT MEDICARE (WNR) MEDICARE () PART B Aug 11, 2014 PART B [id number] [phone] ARCHAMBEA USHAQ PATIENT MEDICARE (WNR) MEDICARE () PART B Aug 11, 2014 PART B [id number] [phone] ARCHAMBEA U,SHAQ PATIENT MEDICARE (WNR) MEDICARE () PART A Aug 11, 2014 PART A [id number] ARCHAMBEA SHAQ Wagner PATIENT [facility] (WNR) MEDICARE ADVANTAGE [facility] (WNR) May 13, 2020 [id number] ARCHAMBEA SHAQ Wagner PATIENT Selected Encounter This section includes the information on record at [place] for the Encounter. Date/Time Encounter Type Encounter Description Reason Provider Source Jul 17, 2023 11:00 AM OFFICE O/P EST HI 40 MIN PM&RS PHYSICIAN ICD-10-CM M54.17 Radiculopathy, lumbosacral region BERNABE PRIETO Lillian Encounter Template Text not used by [place] Assessments - Encounter Diagnoses This section includes the primary and secondary diagnoses documented for the Encounter. Date/Time Primary/Secondary Diagnosis Diagnosis Name Provider Source Jul 17, 2023 01:43 PM PRIMARY Radiculopathy, lumbosacral region BERNABE PRIETO [place] [facility] [place] [facility] Jul 17, 2023 01:43 PM SECONDARY Low back pain, unspecified BERNABE PRIETO [place] [facility] [place] [facility] Plan of Treatment: Future Appointments (+ 6 months) and Future Tests (+/- 45 days) The Plan of Treatment section includes future care activities for the patient from all [place] [facility] This section includes future appointments and future orders which are active, pending or scheduled. Future Appointments This section includes appointments that were scheduled to occur 6 months from the date of the Encounter, up to a maximum of 20 appointments. The data comes from all [place] treatment facilities. Appointment Date/Time Appointment Type Appointme nt Facility Name Aug 12, 2023 07:30 AM AMBULATORY - REHAB MEDICIN E [facility] [place] [facility] Aug 30, 2023 08:45 AM AMBULATORY - MEDICINE [facility] [place] [facility] October 02, 2023 08:00 AM AMBULATORY - REHAB MEDICIN E [facility] [place] [facility] October 08, 2023 11:00 AM AM[facility]ULATORY - MEDICINE [facility] October 09, 2023 08:30 AM AMBULATORY - MEDICINE [facility] [place] [facility] Oct 23, 2023 08:30 AM [facility] Nov 19, 2023 08:30 AM AMBULATORY - MEDICINE [facility] [place] [facility] Nov 28, 2023 07:30 AM AMBULATORY - REHAB MEDICIN E [facility] [place] [facility] Dec 23, 2023 07:30 AM AMBULATORY - MEDICINE [facility] [place] [facility] Dec 23, 2023 03:15 PM AMBULATORY - MEDICINE [facility] Lab Results: +/- 30 days of the encounter This section includes the Chemistry and Hematology Lab Results on record with [place] for the patient. Radiology Reports and Pathology Reports are provided separately, in subsequent sections. Lab Results This section contains the Chemistry/Hematology Results that were resulted 30 days before or 30 daysafter the date of the Encounter. Date/Time Source Result Type Result - Unit Interpretation Reference Range Comment Jun 27, 2023 07:32 AM APPOMATTOX BASIC METABOLIC PANEL (fasting) Specime n Type: SERUM No comment entered. Ordering Provider: NEHEMIAH DAVIES Report Released Date/Time: Nov 09, 2022 12:33 PM Reporting Lab: [address] [address] Performing Lab: [address] [address] UREA NITROGEN 18 mg/dL 7-25 GLUCOSE 96 mg/dL 65-100 SODIUM 141 mmol/L 135-145 POTASSIUM 4.8 mmol/L 3.5-5.0 CHLORIDE 106 mmol/L 100-110 CO2 28 meq/L 20-30 CREATININE, Serum 1.11 mg/dL 0.50-1.40 eGFR(CKD-EPI 2020) 70 mL/min >60 Jun 27, 2023 07:32 AM APPOMATTOX VITAMIN D (25-OH) Specimen Type: SERUM No comment entered. Ordering Provider: NEHEMIAH DAVIES Report Released Date/Time: Nov 09, 2022 12:33 PM Reporting Lab: [address] [address] Performing Lab: [address] [address] VITAMIN D (25-OH) 48 ng/mL 20-50 Jun 27, 2023 07:32 AM APPOMATTOX LIPID PANEL FASTING Specimen Type: SERUM No comment entered. Ordering Provider: NEHEMIAH DAVIES Report Released Date/Time: Nov 09, 2022 12:33 PM Reporting Lab: [address] [address] Performing Lab: [facility] [address] [facility] [address] CHOLESTEROL 156 mg/dL TRIGLYCERIDE 83 mg/dL 0-150 LDL calculated 78 mg/dL 0-129 CHOL/HDL 2.6 HDL CHOLESTEROL 61 mg/dL H 40-60 Jun 27, 2023 07:32 AM APPOMATTOX LIVER FUNCTION Specimen Type: SERUM No comment entered. Ordering Provider: NEHEMIAH DAVIES Report Released Date/Time: Nov 09, 2022 12:33 PM Reporting Lab: [facility] [address] [facility] [address] Performing Lab: [facility] [address] [address] PROTEIN,TOTAL 6.7 g/dL 6.0-8.3 ALBUMIN 4.1 g/dL 3.5-5.0 ALKALINE PHOSPHATASE 66 U/L 40-150 AST 14 U/L 5-34 ALT 21 U/L BILIRUBIN, TOTAL 0.4 mg/dL 0.2-1.2 Jun 27, 2023 07:32 AM APPOMATTOX VITAMIN B12 Specimen Type: SERUM No comment entered. Ordering Provider: NEHEMIAH DAVIES Report Released Date/Time: Nov 09, 2022 12:33 PM Reporting Lab: [facility] [address] [facility] [address] Performing Lab: [facility]ITAL[facility]ENTER[facility] [address] VITAMIN B12 591 pg/mL 200-900 Jun 27, 2023 07:32 AM APPOMATTOX MAGNESIUM Specimen Type: SERUM No comment entered. Ordering Provider: NEHEMIAH DAVIES Report Released Date/Time: Nov 09, 2022 12:33 PM Reporting Lab: [facility]ENTERUSE[address] [address] Performing Lab: [facility] [address] MAGNESIUM 2.1 mg/dL 1.6-2.6 Jun 27, 2023 07:32 AM APPOMATTOX CBC AND DIFF (AUTO) Specimen Type: BLOOD No comment entered. Ordering Provider: NEHEMIAH DAVIES Report Released Date/Time: Nov 09, 2022 12:33 PM Reporting Lab: [place] [facility] [place] [facility] [address] [facility] [address] Performing Lab: [place] CNT [facility] [address] [facility] [address] WBC 8.96 10*3/uL 4.50-11.00 RBC 4.81 10*6/uL 4.23-5.66 HGB 14.0 g/dL 12.8-17 HCT 42.4 39.2-50.4 MCV 88.1 fL 82-99 MCHC 33.0 g/dL 30.8-35.1 PLT 312 10*3/uL 140-360 RDW-CV 12.3 12.0-16.0 [place], Abs 0.59 10*3/uL 0.30-1.10 MCH 29.1 pg 26.2-32.6 Neut % 65.4 43.7-75.8 Lymph % 21.4 14.0-42.3 [place] % 6.6 5.1-13.7 Eos % 4.4 0.4-6.8 [...] Height Weight Body Mass Index Source Jul 17, 2023 11:39 AM 50 [facility] [place] [facility] Jul 17, 2023 11:37 AM 130/70 95 6 [facility] [place] [facility] Jul 17, 2023 10:48 AM 48 160/80 24 98 7 [place] [facility] Social History: Smoking Status (Most current) and Tobacco Use (All prior to encounter date) This section includes the most current, and the historical, smoking and tobacco- related health factors from the [place] facility where the Encounter took place. Current Smoking Status This section includes the most current smoking, or tobacco-related health factor, from the [place] facility where the Encounter took place. Date/Time Current Smoking Status Comment Lor ity Jul 04, 2023 09:00 AM VA-TOBACCO FORMER USER [facility] Tobacco Use History This section includes a history of the smoking, or tobacco-related health factors, that were collected on or before the date of the Encounter. The data comes from the [place] facility where the Encounter took place. Date/Time Smoking Status/Tobacco Use Comment F roopa Jul 04, 2023 09:00 AM VA-TOBACCO QUIT 15 YRS OR MORE [place] [facility] [place] [facility] Mar 14, 2022 03:02 PM VA-TOBACCO FORMER USER [place] [facility] [place] [facility] Mar 14, 2022 03:02 PM VA-TOBACCO QUIT 15 YRS OR MORE [place] [facility] [place] [facility] Feb 08, 2021 09:00 AM VA-TOBACCO FORMER USER [place] [facility] [place] [facility] Feb 08, 2021 09:00 AM VA-TOBACCO QUIT 15 YRS OR MORE [place] [facility] [place] [facility] October 09, 2019 01:12 PM VA-TOBACCO FORMER USER [place] [facility] [place] [facility] October 09, 2019 01:12 PM VA-TOBACCO QUIT 5 TO < 15 YRS [facility] Advance Directives: All historical and current Section Date Range: From patient's date of to the date document was created. This section includes ALL of a patient's completed or amended [place] Advance and Rescinded Directives. The entries below indicate that a directive exists for the patient, but an actual copy is not included with this document. The data comes from all [place] facilities. Date Advance Directives Provider Source Feb 21, 2021 ADVANCE DIRECTIVE BEL ESCALANTE [facility] Radiology Reports: +/- 30 days of [...] the Encounter. The data comes from all [place] treatment facilities. Date/Time Radiology Report Provider Source Jul 17, 2023 11:09 AM FLUOROSCOPIC NITIN NCE OF NEEDLE/SPINE: SHAQ GREGORIO [id number] M Exm Date: JUL 17, 2023@11:09 Req Phys: BERNABE PRIETO THI Pat Loc: CWM/NO/MED REHAB/SPINE INJ (Re Img Loc: [facility]/BUILDING 1 Service: Unknown (Case [id number] COMPLETE) FLUOROSCOPIC GUIDANCE OF NEEDLE/S(RAD Detailed) CPT:65352 Reason for Study: transforaminal epidural steroid injection Clinical History: Report Status: Verified Date Reported: JUL 17, 2023 Date Verified: JUL 17, 2023 Candy Separator Hard E-Sig:/ES/LOU VICTORIA JR Report: Study: Pain injection [...] No immediate attention required Primary Interpreting Staff: OLU VICTORIA JR, Radiologist (Candy Separator Hard) /LOU WASHINGTON JR [place] [facility] Encounter Notes: All associated encounter notes This section contains the clinical notes associated to the Encounter. Date/Time Encounter Note(s) Provider Source Jul 17, 2023 11:35 AM PHYSICAL MEDICINE REHAB NOTE: LOCAL TITLE: PM&R BACK/JOINT PROCEDURE NOTE STANDARD TITLE: PHYSICAL MEDICINE REHAB NOTE DATE OF NOTE: JUL 17, 2023@11:35 ENTRY DATE: JUL 17, 2023@11:35:48 AUTHOR: BERNABE PRIETO EXP COSIGNER: URGENCY: STATUS: COMPLETED PROCEDURE NOTE: LUMBAR/SACRAL TRANSFORAMINAL EPIDURAL STEROID INJECTION PROCEDURE: 1) Left L5-S1 and S1 transforaminal epidural steroid injection 2) Fluoroscopic needle guidance REASON FOR PROCEDURE: Lumbosacral radiculopathy HISTORY: reports that the last left L5 and S1 transforaminal epidural injection 12/13/23 provided excellent pain relief, >70%, for about 4 months. During this time, he was able to sleep through the night and function with significantly decreased pain. Pain has since returned, not as severe as prior to injections but is still rated at 5/10 on average. Symptoms intermittently radiate down the left posterior leg, often ending at the knee but occasionally past the knee. Denies weakness, numbness, or tingling of the lower extremities. He has not been able to sleep well due to pain when turning in bed, and activities including prolonged walking increases pain. Cold, rainy weather also exacerbates pain. Denies fever, chills, night sweat, weight loss, bowel/bladder incontinence, or saddle paresthesia. Requests to proceed with repeat TFESI Patient was recently diagnosed with atrial fibrillation, on apixaban. Medical comorbidities include He had fusion of the right toes 15 secondary to hammertoes in March 2023 by NEOS, with removal of pins shortly after. He recovered well, though there is no significant mobility of those toes. EXAM: Vitals in chart. Vet is awake, alert, oriented, in NAD. Gets on/off table with minimal difficulties, not requiring assistance. Decreased lumbar range of motion with discomfort on flexion and rotation to the left. Lateral flexion and extension did not elicit pain, however did reproduce some of his radicular symptoms into the left buttocks and posterior leg in primarily L5 and S1 distribution. Tightness in the left hamstring. Negative straight leg raise bilaterally. Mild weakness of the left EHL and plantar flexion. Otherwise normal strength of all major muscle groups tested in bilateral lower extremities. Sensations intact to light touch in bilateral lower extremities. Gait is normal, symmetric, nonantalgic PHYSICIAN: Bernabe Prieto DO MEDICATIONS INJECTED: 5mg of dexamethasone + 1 ml of 1%Lidocaine + 0.5mL of 0.9% preservative free normal saline at each level. Total dose of dexamethasone: 10mg Total dose of lidocaine: 40mg LOT#: [id number] Exp: 07/07 LOCAL ANESTHETIC INJECTED: 1.0 mL of 1% lidocaine per site CONTRAST AGENT USED: 1.0 mL of Omnipaque 300 Contrast AGENT WASTED: 0mL of Omnipaque 300 SEDATION MEDICATIONS: None ESTIMATED BLOOD LOSS: None COMPLICATIONS: None INFORMED CONSENT: Verbal and written iMed consent in chart. TIME OUT NOTE TIME: JUL 17, 2023@11:10 [place] correctly stated: [X]Full name: SHAQ GREGORIO [X]Last 4 of #: [id number] [X]: Aug STAFF NAME: Alivia Medel LPN LOCATION: Marked site of injection on Left low back. TECHNIQUE: Time-out was taken to identify the correct patient, procedure and side prior to starting the procedure. Lying in a prone position, the patient was prepped and draped in the usual sterile fashion using ChloraPrep and a fenestrated drape. The area to be injected was determined under fluoroscopic guidance. Local anesthetic was given by raising a skin wheal and going down to the hub of a 30-gauge 0.5-inch needle. The 3.5-inch 22-gauge Quincke needle was advanced toward the 6 o'clock position of the pedicle at each above-named nerve root level. The needle was advanced to the final position via a lateral fluoroscopic intermittent image. Omnipaque 300 was injected and showed epidural spread and there was no vascular runoff. The medication was then injected after negative aspiration. Patient reported concordant radicular pain down the posterior leg during injections, moreso at L5-S1 than S1 neural foramen. The procedure was completed without complications and was tolerated well. The patient was monitored after the procedure. The patient (or responsible alliance party) was given post-procedure and discharge instructions to follow at home. The patient was discharged in stable condition. Pre-procedure pain level: 10 Post-procedure pain level: 10 ASSESSMENT: 72-year-old gentleman with chronic low back pain secondary to lumbosacral radiculopathy, presenting today for repeat left L5 and S1 transforaminal epidural injection. Recent diagnosis of atrial fibrillation, on apixaban, as well as recent surgery for hammertoes. PLAN: -Left L5-S1 and S1 transforaminal epidural steroid injection provided today. Discharge instructions provided including the use of ice every 2 hours for the next 24 hours if needed for postinjection soreness/pain - Follow-up with PM&R PA in 2-3 weeks. - Will consider repeating lumbar epidural injection in 4 months, if he continues to respond well. - Heat q2 hrs prn for muscle pain/tightness starting for 72 hours after today's injection. - Con't to take Oxycodone judiciously. Minimize use when cortisone is effective. - Encouraged Vet to continue engaging in some form of low impact aerobic activity daily, and engage in HEP as discussed. - Contact me with any issues. Total time: 45 minutes. Medication Reconciliation: Outpatient: Has the patient been taking medications as documented in the EMLR? YES: The patient has been taking medications as documented in the EMLR. Essential Medication List for Review used to complete this medication reconciliation. INCLUDED IN THIS LIST: Alphabetical list of active outpatient prescriptions dispensed from this [place] (local) and dispensed from another [place] or [facility] facility (remote) as well as inpatient [...] or non-VA provider. /robe/ BERNABE PRIETO DO PROMOTIONS ASSOCIATE Signed: 07/17/2023 13:44 BERNABE PRIETO [place] [facility] [place] [facility] Jul 17, 2023 11:07 AM DISCHARGE NOTE: LOCAL TITLE: DISCHARGE INSTRUCTIONS/OUTPATIENT STANDARD TITLE: DISCHARGE NOTE DATE OF NOTE: JUL 17, 2023@11:07 ENTRY DATE: JUL 17, 2023@11:07:10 AUTHOR: CONNERBERNABE DE [place] TH EXP COSIGNER: URGENCY: STATUS: COMPLETED Your ATTENDING PHYSICIAN for today's injection is: Bernabe Prieto DO Reason for Visit: Left L5-S1 and S1 transforaminal epidural steroid injection - Physical/Activity Limitations: No strenous activity for 24 Hours - Diet: Resume Previous Diet - Medication reconciliation performed. Active Outpatient Medications (including Supplies): Active Outpatient Medications Status 1) APIXABAN 5MG TAB TAKE ONE TABLET BY MOUTH EVERY 12 ACTIVE HOURS 2) DRONEDARONE 400MG TAB TAKE ONE TABLET BY MOUTH TWICE ACTIVE DAILY FOR PAROXYSMAL ATRIAL FIBRILLATION 3) FLUTICASONE PROP 50MCG 120D NASAL INHL INSTILL 1 ACTIVE SPRAY INTO EACH NOSTRIL AT BEDTIME 4) LATANOPROST 0.005% OPH SOLN INSTILL 1 DROP INTO EACH ACTIVE EYE AT BEDTIME FOR WIDE-ANGLE GLAUCOMA 5) LIDOCAINE 5% PATCH APPLY 1 PATCH TOPICALLY ONCE DAILY ACTIVE FOR NERVE PAIN (LEAVE PATCH ON FOR 12 HOURS, THEN REMOVE PATCH) 6) LOVASTATIN 20MG TAB TAKE ONE TABLET BY MOUTH AT ACTIVE BEDTIME FOR CHOLESTEROL -- AVOID GRAPEFRUIT JUICE 7) METOPROLOL TARTRATE 25MG TAB TAKE ONE TABLET BY MOUTH ACTIVE TWICE DAILY FOR BLOOD PRESSURE/HEART 8) NUTRITION SUPL ENSURE PLUS/VANILLA LIQ DRINK 1 CAN BY ACTIVE MOUTH TWICE DAILY 9) OMEPRAZOLE 20MG EC CAP TAKE TWO CAPSULES BY MOUTH ACTIVE EVERY MORNING 30 MINUTES BEFORE BREAKFAST 10) ONDANSETRON HCL 4MG TAB TAKE ONE TABLET BY MOUTH ONCE ACTIVE DAILY NEEDED FOR VOMITING/NAUSEA 11) OXYCODONE HCL 5MG/APAP 325MG TAB TAKE 1 TABLET BY ACTIVE MOUTH THREE TIMES DAILY NEEDED FOR PAIN NEXT FILL 08/02/23 12) ROPINIROLE HCL 0.25MG TAB TAKE ONE TABLET BY MOUTH ACTIVE DAILY Active Non-VA Medications Status 1) Non-VA ACETAMINOPHEN 500MG TAB 1000MG BY MOUTH THREE ACTIVE TIMES DAILY NEEDED 13 Total Medications No changes to current medications [...] are experiencing problems contact: TELEPHONE ASSISTANCE at [phone] or extension [phone] extension [phone] (MARAH Bunch) or extension [phone] (LUZMARIA Jett) If you are in an emotional crisis, feeling suicidal or having any troubling or self-destructive or violent impulses - please call [phone] (or [phone]); press 1 for Veterans to ask for [...] time of discharge. /robe/ BERNABE PRIETO DO PROMOTIONS ASSOCIATE Signed: 07/17/2023 11:11 BERNABE PRIETO [facility]
--- OUTSIDE RECORDS SUMMARY | 2024-04-28 10:56 | XMS_ITS | Encounter Summary ---
Author Name [facility] [place] Organization [place] Address [address] [place] [address] Care Team Providers [place] Agricultural Agent Name Role Phone NEHEMIAH CUEVAS Primary Care [...] Name Patient's Relationship to Policy Orellana ANA [facility] Aug 11, 2014 [id number] DHAVAL SHAQ Wagner [facility] SUPPLEMEN ARTEMIO [facility] Aug 11, 2014 [id number] ARCHSTEPHANIA SHAQ Wagner [facility] SUPPLEMEN ARTEMIO MEDEX 2 Aug 11, 2014 [id number] [phone] DHAVAL SHAQ Wagner [facility] SUPPLEMEN ARTEMIO MEDEX 2 Aug 11, 2014 [id number] ARCHSTEPHANIA SHAQ Wagner PATIENT BCBS [place] MEDICARE SUPPLEMEN ARTEMIO MEDEX 2 Aug 11, 2014 [id number] AR[address]CTAVIOEA SHAQ Wagner [facility] MEDICARE SUPPLEMEN [facility] [place] [facility] [place] [facility] Aug 11, 2014 [id number] SHAQ WONG PATIENT USMANA [facility] (WNR) MEDICARE ADVANTAGE HUMAN A INSUR [facility] Jan 11, 2022 [id number] [phone] ARCHOCTAVIOEA SHAQ Wagner PATIENT USMANA MCR (WNR) MEDICARE ADVANTAGE [facility] (WNR) Jan 11, 2022 [id number] [phone] ARCHAMBEA SHAQ Wagner PATIENT MEDICARE (WNR) MEDICARE () PART A Dec 11, 2014 PART A [id number] ARCHAMBEA SHAQ Wagner PATIENT MEDICARE (WNR) MEDICARE () PART A Aug 11, 2014 PART A [id number] ARCHAMBEA SHAQ Wagner PATIENT MEDICARE (WNR) MEDICARE () PART B Aug 11, 2014 PART B [id number] ARCHAMBEA SHAQ Wagner PATIENT MEDICARE (WNR) MEDICARE () PART A Aug 11, 2014 PART A [id number] ARCHAMBEA Bernard,SHAQ PATIENT MEDICARE (WNR) MEDICARE () PART B Aug 11, 2014 PART B [id number] ARCHAMBEA Bernard,SHAQ PATIENT MEDICARE (WNR) MEDICARE () PART A Aug 11, 2014 PART A [id number] ARCHAMBEA Bernard,SHAQ PATIENT MEDICARE (WNR) MEDICARE (M) PART B Aug 11, 2014 PART B [id number] ARCHAMBEA Bernard,SHAQ PATIENT MEDICARE (WNR) MEDICARE (M) PART B Aug 11, 2014 PART B [id number] [phone] ARCHAMBEA SHAQ Wagner [facility] (WNR) MEDICARE ADVANTAGE [facility] (WNR) May 13, 2020 [id number] ARCHAMBEA SHAQ Wagner PATIENT Selected Encounter This section includes the information on record at [place] for the Encounter. Date/Time Encounter Type Encounter Description Reason Pro vider Source Jun 18, 2023 12:00 AM Outpatient Encounter EVENT (HISTORICAL) IHE Encounter Template Text not used by [place] Plan of Treatment: Future Appointments (+ 6 months) and Future Tests (+/- 45 days) The Plan of Treatment section includes future care activities for the patient from all [place] treatmentfacilities. This section includes future appointments and [...] - NONE [facility] [place] [facility] Jul 04, 2023 09:00 AM AMBULATORY - MEDICINE [facility] Jul 05, 2023 08:45 AM AMBULATORY - MEDICINE [facility] [place] [facility] Jul 17, 2023 11:00 AM AMBULATORY - REHAB MEDICIN E [facility] [place] [facility] Aug 12, 2023 07:30 AM AMBULATORY - REHAB MEDICIN E [facility] [place] [facility] Aug 30, 2023 08:45 AM AMBULATORY - MEDICINE [facility] [place] [facility] October 02, 2023 08:00 AM AMBULATORY - REHAB MEDICIN E [facility] [place] [facility] October 08, 2023 11:00 AM AMBULATORY - MEDICINE [facility] October 09, 2023 08:30 AM AMBULATORY - MEDICINE [facility] [place] [facility] Oct 23, 2023 08:30 AM AMBULATORY - MEDICINE [facility] Nov 19, 2023 08:30 AM AMBULATORY - MEDICINE [place] [facility] [place] [facility] Nov 28, 2023 07:30 AM AMBULATORY - REHAB MEDICIN E [facility] [place] [facility] Lab Results: +/- 30 days of the [...] Range Comment Jun 27, 2023 07:32 AM [facility] LIPID PANEL FASTING Specimen Type: SERUM No comment entered. Ordering Provider: NEHEMIAH DAVIES Report Released Date/Time: Nov 09, 2022 12:33 PM Reporting Lab: [address] [address] Performing Lab: [address] [address] CHOLESTEROL 156 mg/dL TRIGLYCERIDE 83 mg/dL 0-150 LDL calculated 78 mg/dL 0-129 CHOL/HDL 2.6 HDL CHOLESTEROL 61 mg/dL H 40-60 Jun 27, 2023 07:32 AM [facility] VITAMIN D (25-OH) Specimen Type: SERUM No comment entered. Ordering Provider: NEHEMIAH DAVIES Report Released Date/Time: Nov 09, 2022 12:33 PM Reporting Lab: [address] [address] Performing Lab: [address] [address] VITAMIN D (25-OH) 48 ng/mL 20-50 Jun 27, 2023 07:32 AM [facility] LIVER FUNCTION Specimen Type: SERUM No comment entered. Ordering Provider: NEHEMIAH DAVIES Report Released Date/Time: Nov 09, 2022 12:33 PM Reporting Lab: [address] [address] Performing Lab: [address] [address] PROTEIN,TOTAL 6.7 g/dL 6.0-8.3 ALBUMIN 4.1 g/dL 3.5-5.0 ALKALINE PHOSPHATASE 66 U/L 40-150 AST 14 U/L 5-34 ALT 21 U/L BILIRUBIN, TOTAL 0.4 mg/dL 0.2-1.2 Jun 27, 2023 07:32 AM [facility] BASIC METABOLIC PANEL (fasting) Specime n Type: SERUM No comment entered. Ordering Provider: BABAK DAVIESNKA M Report Released Date/Time: Nov 09, 2022 12:33 PM Reporting Lab: [facility] [address] [facility] [address] Performing Lab: [facility] [address] [address] UREA NITROGEN 18 mg/dL 7-25 GLUCOSE 96 mg/dL 65-100 SODIUM 141 mmol/L 135-145 POTASSIUM 4.8 mmol/L 3.5-5.0 CHLORIDE 106 mmol/L 100-110 CO2 28 meq/L 20-30 CREATININE, Serum 1.11 mg/dL 0.50-1.40 eGFR(CKD-EPI 2020) 70 mL/min >60 Jun 27, 2023 07:32 AM [facility] VITAMIN B12 Specimen Type: SERUM No comment entered. Ordering Provider: NEHEMIAH DAVIES Report Released Date/Time: Nov 09, 2022 12:33 PM Reporting Lab: [address] [address] Performing Lab: [address] [address] VITAMIN B12 591 pg/mL 200-900 Jun 27, 2023 07:32 AM [facility] MAGNESIUM Specimen Type: SERUM No comment entered. Ordering Provider: NEHEMIAH DAVIES Report Released Date/Time: Nov 09, 2022 12:33 PM Reporting Lab: [address] [address] Performing Lab: [address] [address] MAGNESIUM 2.1 mg/dL 1.6-2.6 Jun 27, 2023 07:32 AM [facility] CBC AND DIFF (AUTO) Specimen Type: BLOOD No comment entered. Ordering Provider: NEHEMIAH DAVIES Report Released Date/Time: Nov 09, 2022 12:33 PM Reporting Lab: [address] [address] Performing Lab: [place] [address] [facility] [address] WBC 8.96 10*3/uL 4.50-11.00 RBC 4.81 10*6/uL 4.23-5.66 HGB 14.0 g/dL 12.8-17 HCT 42.4 39.2-50.4 MCV 88.1 fL 82-99 MCHC 33.0 g/dL 30.8-35.1 PLT 312 10*3/uL 140-360 RDW-CV 12.3 12.0-16.0 Tensas, Abs 0.59 10*3/uL 0.30-1.10 MCH 29.1 pg 26.2-32.6 Neut % 65.4 43.7-75.8 Lymph % 21.4 14.0-42.3 Tensas % 6.6 5.1-13.7 Eos % 4.4 0.4-6.8 [...] 14, 2022 03:02 PM VA-TOBACCO FORMER USER [facility] Tobacco Use History This section includes a history of the smoking, or tobacco-related health factors, that were collected on or before the date of the Encounter. The data comes from the [place] facility where the Encounter took place. Date/Time Smoking Status/Tobacco Use Comment F acility Mar 14, 2022 03:02 PM [place]-TOBACCO QUIT 15 YRS OR MORE [facility] [place] [facility] Feb 08, 2021 09:00 AM VA-TOBACCO FORMER USER [place] [facility] Feb 08, 2021 09:00 AM VA-TOBACCO QUIT 15 YRS OR MORE [place] [facility] [place] [facility] October 09, 2019 01:12 PM VA-TOBACCO FORMER USER [place] [facility] October 09, 2019 01:12 PM [facility]-TOBACCO QUIT 5 TO < 15 [facility] Advance Directives: All historical and current [...] Feb 21, 2021 ADVANCE DIRECTIVE BEL [facility] Radiology Reports: +/- 30 days [...] FLUOROSCOPIC NITIN NCE OF NEEDLE/SPINE: SHAQ GREGORIO [id number] -1950 M Ex Date: JUL 17, 2023@11:09 Req Phys: BERNABE PRIETO THI Pat Loc: CWM/NO/MED REHAB/SPINE INJ (Re Img Loc: [facility] 1 Service: Unknown (Case [id number] COMPLETE) FLUOROSCOPIC GUIDANCE OF NEEDLE/S(RAD Detailed) CPT:53753 Reason for Study: transforaminal epidural steroid injection Clinical History: Report Status: Verified Date Reported: JUL 17, 2023 Date Verified: JUL 17, 2023 Clinical Biostatistician E-Sig:/ES/LOU VICTORIA JR Report: Study: Pain injection [...] Primary Interpreting Staff: LOU VICTORIA JR, Radiologist (Clinical Biostatistician) /LOU WASHINGTON JR [facility] Encounter Notes: All associated encounter notes This section contains the clinical notes associated to the Encounter. Date/Time Encounter Note(s) Provider Source Jun 18, 2023 12:00 AM NURSING ADMINISTRA TIVE NOTE: LOCAL TITLE: NON-VA PRESCRIPTION STANDARD TITLE: NURSING ADMINISTRATIVE NOTE DATE OF NOTE: JUN 18, 2023 ENTRY DATE: JUL 19, 2023@06:58:56 AUTHOR: NARCISA AGUIRRE COSIGNER: URGENCY: STATUS: COMPLETED VistA Imaging - Scanned Document SCANNED DOCUMENT SIGNATURE NOT REQUIRED Electronically Filed: 07/19/2023 by: NARCISA YAN [facility]
--- OUTSIDE RECORDS SUMMARY | 2024-04-28 10:56 | XMS_ITS | Encounter Summary ---
Author Name [place] Address [address] [place] [address] Care Team Providers Care Deckhand Name Role Phone NEHEMIAH CUEVAS Primary Care [...] Name Patient's Relationship to Policy [facility] Aug 11, 2014 [id number] DHAVAL SHAQ Wagner PATIENT ANA BCBS [facility] MEDICARE SUPPLEMEN ARTEMIO [facility] Aug 11, 2014 [id number] DHAVAL SHAQ Wagner PATIENT BCBS [place] MEDICARE SUPPLEMEN ARTEMIO MEDEX 2 Aug 11, 2014 [id number] DHAVAL SHAQ Wagner PAT[place] SUPPLEMEN ARTEMIO MEDEX 2 Aug 11, 2014 [id number] ARCHSTEPHANIA SHAQ Wagner PATIENT [place] MED[place] SUPPLEMEN ARTEMIO MEDEX 2 Aug 11, 2014 [id number] [phone] ARCHOCTAVIOEA SHAQ Wagner [facility] BLUECARD MEDICARE SUPPLEMEN [facility] [place] [facility] [place] [facility] Aug 11, 2014 [id number] SHAQ WONG PATIENT USMANA [facility] (WNR) MEDICARE ADVANTAGE HUMAN A INSUR [facility] Jan 11, 2022 [id number] ARCHOCTAVIOEA SHAQ Wagner PATIENT USMANA MCR (WNR) MEDICARE ADVANTAGE [facility] (WNR) Jan 11, 2022 [id number] [phone] ARCHAMBEA SHAQ Wagner PATIENT MEDICARE (WNR) MEDICARE () PART A Dec 11, 2014 PART A [id number] ARCHAMBEA SHAQ Wagner PATIENT MEDICARE (WNR) MEDICARE () PART B Aug 11, 2014 PART B [id number] [phone] ARCHAMBEA SHAQ Wagner PATIENT MEDICARE (WNR) MEDICARE () PART A Aug 11, 2014 PART A [id number] ARCHAMBEA SHAQ Wagner PATIENT MEDICARE (WNR) MEDICARE () PART B Aug 11, 2014 PART B [id number] ARCHAMBEA SHAQ Wagner PATIENT MEDICARE (WNR) MEDICARE () PART A Aug 11, 2014 PART A [id number] ARCHAMBEA SHAQ Wagner PATIENT MEDICARE (WNR) MEDICARE () PART B Aug 11, 2014 PART B [id number] [phone] ARCHAMBEA SHAQ Wagner PATIENT MEDICARE (WNR) MEDICARE () PART B Aug 11, 2014 PART B [id number] ARCHAMBEA SHAQ Wagner PATIENT MEDICARE (WNR) MEDICARE () PART A Aug 11, 2014 PART A [id number] [phone] ARCHAMBEA SHAQ Wagner [facility] (WNR) MEDICARE ADVANTAGE [facility] (WNR) May 13, 2020 [id number] ARCHAMBEA SHAQ Wagner PATIENT Selected Encounter This section includes the information on record at [place] for the Encounter. Date/Time Encounter Type Encounter Description Reason Pro vider Source Jul 17, 2023 11:10 AM Outpatient Encounter EVENT (HISTORICAL) IHE Encounter Template Text not used by [place] Plan of Treatment: Future Appointments (+ 6 months) and Future Tests (+/- 45 days) The Plan of Treatment section includes future care activities for the patient from all [place] treatmentfacilities. This section includes future appointments and future orders which are active, pending or scheduled. Future Appointments This section includes appointments that were scheduled to occur 6 months from the date of the Encounter, up to a maximum of 20 appointments. The data comes from all [place] treatment facilities. Appointment Date/Time Appointment Type Appointme nt Facility Name Aug 12, 2023 07:30 AM AMBULATORY - REHAB MEDICIN E [place] [facility] [place] [facility] Aug 30, 2023 08:45 AM AMBULATORY - MEDICINE [place] [facility] [place] [facility] October 02, 2023 08:00 AM AMBULATORY - REHAB MEDICIN E [facility] [place] [facility] October 08, 2023 11:00 AM [facility]ULATORY - MEDICINE [facility] October 09, 2023 08:30 AM AMBULATORY - MEDICINE [place] [facility] [place] [facility] Oct 23, 2023 08:30 AM AMBULATORY - MEDICINE [facility] Nov 19, 2023 08:30 AM AMBULATORY - MEDICINE [place] [facility] [place] [facility] Nov 28, 2023 07:30 AM AMBULATORY - REHAB MEDICIN E [facility] [place] [facility] Dec 23, 2023 07:30 AM AMBULATORY - MEDICINE [place] [facility] [place] [facility] Dec 23, 2023 03:15 PM AMBULATORY - MEDICINE [facility] Lab Results: +/- 30 days of the encounter This section includes the Chemistry and Hematology Lab Results on record with [place] for the patient. Radiology Reports and Pathology Reports are provided separately, in subsequent sections. Lab Results This section contains the Chemistry/Hematology Results that were resulted 30 days before or 30 daysafter the date of the Encounter. Date/Time Source Result Type Result - Unit Interpretation Reference Range Comment Jun 27, 2023 07:32 AM [facility] BASIC METABOLIC PANEL (fasting) Specime n Type: SERUM No comment entered. Ordering Provider: NEHEMIAH DAVIES Report Released Date/Time: Nov 09, 2022 12:33 PM Reporting Lab: [address] [address] Performing Lab: [address] [address] UREA NITROGEN 18 mg/dL 7-25 GLUCOSE 96 mg/dL 65-100 SODIUM 141 mmol/L 135-145 POTASSIUM 4.8 mmol/L 3.5-5.0 CHLORIDE 106 mmol/L 100-110 CO2 28 meq/L 20-30 CREATININE, Serum 1.11 mg/dL 0.50-1.40 eGFR(CKD-EPI 2020) 70 mL/min >60 Jun 27, 2023 07:32 AM [facility] VITAMIN D (25-OH) Specimen Type: SERUM No comment entered. Ordering Provider: NEHEMIAH DAVIES Report Released Date/Time: Nov 09, 2022 12:33 PM Reporting Lab: [address] [address] Performing Lab: [address] [address] VITAMIN D (25-OH) 48 ng/mL 20-50 Jun 27, 2023 07:32 AM [facility] LIPID PANEL FASTING Specimen Type: SERUM No comment entered. Ordering Provider: NEHEMIAH DAVIES Report Released Date/Time: Nov 09, 2022 12:33 PM Reporting Lab: [address] [address] Performing Lab: [address] [address] CHOLESTEROL 156 mg/dL TRIGLYCERIDE 83 mg/dL 0-150 LDL calculated 78 mg/dL 0-129 CHOL/HDL 2.6 HDL CHOLESTEROL 61 mg/dL H 40-60 Jun 27, 2023 07:32 AM [facility] LIVER FUNCTION Specimen Type: SERUM No comment entered. Ordering Provider: NEHEMIAH DAVIES Report Released Date/Time: Nov 09, 2022 12:33 PM Reporting Lab: [facility] [address] [address] Performing Lab: [address] [address] PROTEIN,TOTAL 6.7 g/dL 6.0-8.3 ALBUMIN 4.1 g/dL 3.5-5.0 ALKALINE PHOSPHATASE 66 U/L 40-150 AST 14 U/L 5-34 ALT 21 U/L BILIRUBIN, TOTAL 0.4 mg/dL 0.2-1.2 Jun 27, 2023 07:32 AM [facility] VITAMIN B12 Specimen Type: SERUM No comment entered. Ordering Provider: NEHEMIAH DAVIES Report Released Date/Time: Nov 09, 2022 12:33 PM Reporting Lab: [address] [address] Performing Lab: [address] [address] VITAMIN B12 591 pg/mL 200-900 Jun 27, 2023 07:32 AM [facility] MAGNESIUM Specimen Type: SERUM No comment entered. Ordering Provider: NEHEMIAH DAVIES Report Released Date/Time: Nov 09, 2022 12:33 PM Reporting Lab: [address] [address] Performing Lab: [address] [address] MAGNESIUM 2.1 mg/dL 1.6-2.6 Jun 27, 2023 07:32 AM [facility] CBC AND DIFF (AUTO) Specimen Type: BLOOD No comment entered. Ordering Provider: NEHEMIAH DAVIES Report Released Date/Time: Nov 09, 2022 12:33 PM Reporting Lab: [address] [address] Performing Lab: [address] [address] WBC 8.96 10*3/uL 4.50-11.00 RBC 4.81 10*6/uL 4.23-5.66 HGB 14.0 g/dL 12.8-17 HCT 42.4 39.2-50.4 MCV 88.1 fL 82-99 MCHC 33.0 g/dL 30.8-35.1 PLT 312 10*3/uL 140-360 RDW-CV 12.3 12.0-16.0 Foard, Abs 0.59 10*3/uL 0.30-1.10 MCH 29.1 pg 26.2-32.6 Neut % 65.4 43.7-75.8 Lymph % 21.4 14.0-42.3 Foard % 6.6 5.1-13.7 Eos % 4.4 0.4-6.8 [...] Source Jul 17, 2023 11:39 AM 50 [facility] Jul 17, 2023 11:37 AM 130/70 95 6 [facility] Jul 17, 2023 10:48 AM 48 160/80 24 98 7 [facility] Social History: Smoking Status (Most current) and Tobacco Use (All prior to encounter date) This section includes the most current, and the historical, smoking and tobacco- related health factors from the [place] facility where the Encounter took place. Current Smoking Status This section includes the most current smoking, or tobacco-related health factor, from the [place] facility where the Encounter took place. Date/Time Current Smoking Status Kristie gonzalez Jul 04, 2023 09:00 AM [place]-TOBACCO FORMER USER [facility] Tobacco Use History This section includes a history of the smoking, or tobacco-related health factors, that were collected on or before the date of the Encounter. The data comes from the [place] facility where the Encounter took place. Date/Time Smoking Status/Tobacco Use Comment F acility Jul 04, 2023 09:00 AM VA-TOBACCO QUIT 15 YRS OR MORE [place] [facility] [place] [facility] Mar 14, 2022 03:02 PM VA-TOBACCO FORMER USER [place] [facility] [place] [facility] Mar 14, 2022 03:02 PM VA-TOBACCO QUIT 15 YRS OR MORE [facility] [place] [facility] Feb 08, 2021 09:00 AM VA-TOBACCO FORMER USER [place] [facility] [place] [facility] Feb 08, 2021 09:00 AM VA-TOBACCO QUIT 15 YRS OR MORE [place] [facility] [place] [facility] October 09, 2019 01:12 PM VA-TOBACCO FORMER USER [place] [facility] [place] [facility] October 09, 2019 01:12 PM VA-TOBACCO QUIT 5 TO < 15 YRS [place] [facility] [place] [facility] Advance Directives: All historical and current Section Date Range: From patient's date of to the date document was created. This section includes ALL of a patient's completed or amended [place] Advance and Rescinded Directives. The entries below indicate that a directive exists for the patient, but an actual copy is not included with this document. The data comes from all [place] facilities. Date Advance Directives Provider Source Feb 21, 2021 ADVANCE DIRECTIVE BEL ESCALANTE [facility] Radiology Reports: +/- 30 days [...] the Encounter. The data comes from all [place] treatment facilities. Date/Time Radiology Report Provider Source Jul 17, 2023 11:09 AM FLUOROSCOPIC NITIN NCE OF NEEDLE/SPINE: SHAQ GREGORIO [id number] -[id number] M Exm Date: JUL 17, 2023@11:09 Req Phys: BERNABE PRIETO THI Pat Loc: C[facility]/NO/MED REHAB/SPINE INJ (Re Img Loc: [facility] 1 Service: Unknown (Case [id number] COMPLETE) FLUOROSCOPIC GUIDANCE OF NEEDLE/S(RAD Detailed) CPT:22735 Reason for Study: transforaminal epidural steroid injection Clinical History: Report Status: Verified Date Reported: JUL 17, 2023 Date Verified: JUL 17, 2023 Senior Compliance Officer E-Sig:/ES/LOU VICTORIA JR Report: Study: Pain injection [...] Primary Interpreting Staff: LOU VICTORIA JR, Radiologist (Senior Compliance Officer) /LOU WASHINGTON JR [facility]
--- OUTSIDE RECORDS SUMMARY | 2024-04-28 10:56 | XMS_ITS | Encounter Summary ---
Author Name [place] Address [address] [place] [address] Care Team Providers Care Bowl Topper Name Role Phone NEHEMIAH CUEVAS Primary Care [...] Name Patient's Relationship to Policy Orellana ANA [facility] Aug 11, 2014 [id number] DHAVAL SHAQ Wagner PATIENT [facility] MEDICARE SUPPLEMEN ARTEMIO [facility] Aug 11, 2014 [id number] DHAVAL SHAQ Wagner PATIENT [employer] [place] MEDICARE SUPPLEMEN ARTEMIO MEDEX 2 Aug 11, 2014 [id number] [phone] DHAVAL SHAQ Wagner PATIENT [employer] [place] MEDICARE SUPPLEMEN ARTEMIO MEDEX 2 Aug 11, 2014 [id number] DHAVAL SHAQ Wagner PATIENT [place] SUPPLEMEN ARTEMIO MEDEX 2 Aug 11, 2014 [id number] [phone] ARCHAMBEA SHAQ Wagner PATIENT [place] MEDICARE SUPPLEMEN [facility] [place] [facility] [place] Aug 11, 2014 [id number] LAURIEEA SHAQ Wagner PATIENT USMANA [facility] (WNR) MEDICARE ADVANTAGE [facility] (WNR) Jan 11, 2022 [id number] [phone] ARCHAMBEA SHAQ Wagner PATIENT USMANA [facility] (WNR) MEDICARE ADVANTAGE HUMAN A INSUR ANCE COM Jan 11, 2022 [id number] [phone] ARCHAMBEA U,SHAQ PATIENT MEDICARE (WNR) MEDICARE () PART A Dec 11, 2014 PART A [id number] ARCHAMBEA U,SHAQ PATIENT MEDICARE ([place]NR) MEDICARE () PART B Aug 11, 2014 PART B [id number] ARCHAMBEA U,SHAQ PATIENT MEDICARE ([place]) MEDICARE () PART A Aug 11, 2014 PART A [id number] ARCHAMBEA U,SHAQ PATIENT MEDICARE ([place]) MEDICARE () PART B Aug 11, 2014 PART B [id number] ARCHAMBEA U,SHAQ PATIENT MEDICARE ([place]) MEDICARE () PART A Aug 11, 2014 PART A [id number] [phone] [id number] ARCHAMBEA U,SHAQ PATIENT MEDICARE ([place]) MEDICARE () PART B Aug 11, 2014 PART B [id number] [phone] [id number] ARCHAMBEA U,SHAQ PATIENT MEDICARE ([place]) MEDICARE () PART A Aug 11, 2014 PART A [id number] [phone] ARCHAMBEA U,SHAQ PATIENT MEDICARE ([place]) MEDICARE () PART B Aug 11, 2014 PART B [id number] ARCHAMBEA SHAQ Wagner PATIENT [facility] (WNR) MEDICARE ADVANTAGE [facility] (WNR) May 13, 2020 [id number] ARCHAMBEA USHAQ PATIENT Selected Encounter This section includes the information on record at [place] for the Encounter. Date/Time Encounter Type Encounter Description Reason Pro vider Source Jul 29, 2023 08:04 AM Outpatient Encounter ADMIN PAT ACTIVTIES (KISHAN) IHE Encounter Template Text not used by [place] Plan of Treatment: Future Appointments (+ 6 months) and Future Tests (+/- 45 days) The Plan of Treatment section includes future care activities for the patient from all [place] [facility]. This section includes future appointments and future [...] 07:30 AM AMBULATORY - [place]IC[place] [facility] [place] [facility] Aug 30, 2023 08:45 AM AMBULATORY [place]ICINE [place] [facility] [place] [facility] October 02, 2023 08:00 AM AMBULATORY - [facility] [facility]IN [place] [facility] [place] [facility] October 08, 2023 11:00 AM AMBULATORY - MEDICINE [facility] October 09, 2023 08:30 AM AMBULATORY [place]INE [place] [facility] [place] [facility] Oct 23, 2023 08:30 AM AMBULATORY - MEDICINE [facility] Nov 19, 2023 08:30 AM AMBULATORY - [place]ICINE [place] [facility] [place] [facility] Nov 28, 2023 07:30 AM AMBULATORY - REHAB MEDICIN E [facility] [place] [facility] Dec 23, 2023 07:30 AM AMBULATORY [place]ICINE [place] [facility] [place] [facility] Dec 23, 2023 03:15 PM AMBULATORY - MEDICINE [facility] Jan 28, 2024 08:00 AM AMBULATORY [place]ICINE [place] [facility] [place] [facility] Social History: Smoking Status (Most current) [...] Kristie gonzalez Jul 04, 2023 09:00 AM [facility] Tobacco Use History This section includes a history of the smoking, or tobacco-related health factors, that were collected on or before the date of the Encounter. The data comes from the [place] facility where the Encounter took place. Date/Time Smoking Status/Tobacco Use Comment F acility Jul 04, 2023 09:00 AM VA-TOBACCO QUIT 15 YRS OR MORE [facility] [place] [facility] Mar 14, 2022 03:02 PM VA-TOBACCO FORMER USER [place] [facility] [place] [facility] Mar 14, 2022 03:02 PM VA-TOBACCO QUIT 15 YRS OR MORE [facility] [place] [facility] Feb 08, 2021 09:00 AM VA-TOBACCO FORMER USER [place] [facility] [place] [facility] Feb 08, 2021 09:00 AM VA-TOBACCO QUIT 15 YRS OR MORE [facility] [place] [facility] October 09, 2019 01:12 PM VA-TOBACCO FORMER USER [place] [facility] [place] [facility] October 09, 2019 01:12 PM VA-TOBACCO QUIT 5 TO < [address] [facility] Advance Directives: All historical and current [...] 2021 ADVANCE DIRECTIVE BEL ESCALANTE [facility] Radiology Reports: +/- 30 days [...] FLUOROSCOPIC NITIN NCE OF NEEDLE/SPINE: SHAQ GREGORIO [id number] -1950 M Exm Date: JUL 17, 2023@11:09 Req Phys: BERNABE PRIETO Loc: CWM/NO/MED REHAB/SPINE INJ (Re Img Loc: [facility] 1 Service: Unknown (Case [id number] COMPLETE) FLUOROSCOPIC GUIDANCE OF NEEDLE/S(RAD Detailed) CPT:07391 Reason for Study: transforaminal epidural steroid injection Clinical History: Report Status: Verified Date Reported: JUL 17, 2023 Date Verified: JUL 17, 2023 Friction Paint Machine Tender E-Sig:/ES/LOU VICTORIA JR Report: Study: Pain injection [...] Primary Interpreting Staff: LOU VICTORIA JR, Radiologist (Friction Paint Machine Tender) /LOU WASHINGTON JR [facility] Encounter Notes: All associated encounter notes This section contains the clinical notes associated to the Encounter. Date/Time Encounter Note(s) Provider Source Jul 29, 2023 08:04 AM ADMINISTRATIVE NOT E: LOCAL TITLE: [facility]: SCHEDULING ADMINISTRATION STANDARD TITLE: ADMINISTRATIVE NOTE DATE OF NOTE: JUL 29, 2023@08:04:34 ENTRY DATE: JUL 29, 2023@08:04:34 AUTHOR: RICCO GUPTA EXP COSIGNER: URGENCY: STATUS: COMPLETED Patient Demographics Patient Name: SHAQ GREGORIO Patient Primary Phone: [phone] Patient Primary Address: [address] [place] [address] Patient : 1950 Patient Age: 72 Caller/Recipient Relation to Patient: Self Administrative Administrative Note Reason: Medication Renewal [place] Medications Refill/Renewal Request: [place] Requesting Refill of: Rx #[id number] - OXYCODONE HCL 5MG/APAP 325MG TAB [place] requesting medications to be mailed to address on file, commercial lines underwriter confirmed. /robe/ RICCO GUPTA [facility] A[facility] Signed: 07/29/2023 08:04 Receipt Acknowledged By: 07/29/2023 13:55 /es/ MILI DEAN RN REGISTERED NURSE 07/29/2023 09:13 /es/ NEHEMIAH CUEVAS MD PHYSICIAN [facility]
--- OUTSIDE RECORDS SUMMARY | 2024-04-28 10:56 | XMS_ITS | Encounter Summary ---
Author Name [place] Address [address] [place] [id number] Care Team Providers Care Electronics Technology Instructor Name Role Phone NEHEMIAH CUEVAS Primary [...] Name Patient's Relationship to Policy Orellana ANA [facility] Aug 11, 2014 [id number] DHAVAL SHAQ Wagner PATIENT [place] BCBS [facility] MEDICARE SUPPLEMEN ARTEMIO [facility] Aug 11, 2014 [id number] [phone] DHAVAL SHAQ Wagner PATIENT [place] MEDICARE SUPPLEMEN ARTEMIO MEDEX 2 Aug 11, 2014 [id number] [phone] DHAVAL SHAQ Wagner PATIENT [place] SUPPLEMEN ARTEMIO MEDEX 2 Aug 11, 2014 [id number] [phone] ARCHAMBRENATA SHAQ Wagner PATIENT [place] MEDICARE SUPPLEMEN ARTEMIO MEDEX 2 Aug 11, 2014 [id number] [phone] [place] SHAQ Wagner [place] MEDICARE SUPPLEMEN [facility] [place] [facility] [place] Aug 11, 2014 [id number] [phone] SHAQ WONG PATIENT USMANA [facility] (WNR) MEDICARE ADVANTAGE [facility] (WNR) Jan 11, 2022 [id number] [phone] ARCHOCTAVIOEA SHAQ Wagner PATIENT USMANA [facility] (WNR) MEDICARE ADVANTAGE HUMAN A INSUR ANCLillian [facility] Jan 11, 2022 [id number] ARCHAMBEA SHAQ Wagner PATIENT MEDICARE (WNR) MEDICARE () PART A Dec 11, 2014 PART A [id number] ARCHAMBEA SHAQ Wagner PATIENT MEDICARE ([place]NR) MEDICARE () PART A Aug 11, 2014 PART A [id number] [phone] ARCHAMBEA SHAQ Wagner PATIENT MEDICARE ([place]NR) MEDICARE () PART B Aug 11, 2014 PART B [id number] ARCHAMBEA SHAQ Wagner PATIENT MEDICARE ([place]NR) MEDICARE () PART A Aug 11, 2014 PART A [id number] ARCHAMBEA Bernard,SHAQ PATIENT MEDICARE ([place]NR) MEDICARE () PART B Aug 11, 2014 PART B [id number] ARCHAMBEA U,SHAQ PATIENT MEDICARE ([place]) MEDICARE () PART A Aug 11, 2014 PART A [id number] ARCHAMBEA Bernard,SHAQ PATIENT MEDICARE ([place]NR) MEDICARE () PART B Aug 11, 2014 PART B [id number] ARCHAMBEA U,SHAQ PATIENT MEDICARE ([place]) MEDICARE () PART B Aug 11, 2014 PART B [id number] ARCHAMBEA SHAQ Wagner [facility] (WNR) MEDICARE ADVANTAGE [facility] (WNR) May 13, 2020 [id number] ARCHAMBEA SHAQ Wagner PATIENT Selected Encounter This section includes the information on record at [place] for the Encounter. Date/Time Encounter Type Encounter Description Reason Pro vider Source Jul 17, 2023 10:51 AM Outpatient Encounter GENERAL INTERNAL MEDICINE IHE Encounter Template Text not used by [place] Plan of Treatment: Future Appointments (+ 6 months) and Future Tests (+/- 45 days) The Plan of Treatment section includes future care activities for the patient from all [place] [facility]. This section includes future appointments and future orders which are active, pending or scheduled. Future Appointments This section includes appointments that were scheduled to occur 6 months from the date of the Encounter, up to a maximum of 20 appointments. The data comes from all [place] treatment facilities. Appointment Date/Time Appointment Type Appointme nt Facility Name Aug 12, 2023 07:30 AM AMBULATORY - RE[place] MEDICIN E [place] [facility] [place] [place] [facility] Aug 30, 2023 08:45 AM AMBULATORY - MEDICINE [place] [facility] [place] [facility] October 02, 2023 08:00 AM AMBULATORY - REHAB MEDICIN E [place] [facility] [place] [facility] October 08, 2023 11:00 AM [facility]ORY [facility] October 09, 2023 08:30 AM AMBULATORY - MEDICINE [place] [facility] [place] [facility] Oct 23, 2023 08:30 AM AM[facility]ATORY - MEDICINE [facility] Nov 19, 2023 08:30 AM AMBULATORY - MEDICINE [place] [facility] [place] [facility] Nov 28, 2023 07:30 AM AMBULATORY - REHAB MEDICIN E [facility] [place] [facility] Dec 23, 2023 07:30 AM AMBULATORY - MEDICINE [place] [facility] [place] [facility] Dec 23, 2023 03:15 PM AMBULATORY - MEDICINE [facility] Lab Results: +/- 30 days of the encounter This section includes the Chemistry and Hematology Lab Results on record with [place] for the patient. Radiology Reports and Pathology Reports are provided separately, in subsequent sections. Lab Results This section contains the Chemistry/Hematology Results that were resulted 30 days before or 30 daysafter the date of the Encounter. Date/Time Source Result Type Result - Unit Interpretation Reference Range Comment Jun 27, 2023 07:32 AM POST LIPID PANEL FASTING Specimen Type: SERUM No comment entered. Ordering Provider: NEHEMIAH DAVIES Report Released Date/Time: Nov 09, 2022 12:33 PM Reporting Lab: [address] [address] Performing Lab: [address] [address] CHOLESTEROL 156 mg/dL TRIGLYCERIDE 83 mg/dL 0-150 LDL calculated 78 mg/dL 0-129 CHOL/HDL 2.6 HDL CHOLESTEROL 61 mg/dL H 40-60 Jun 27, 2023 07:32 AM POST BASIC METABOLIC PANEL (fasting) Specime n Type: SERUM No comment entered. Ordering Provider: NEHEMIAH DAVIES Report Released Date/Time: Nov 09, 2022 12:33 PM Reporting Lab: [address] [address] Performing Lab: [address] [address] UREA NITROGEN 18 mg/dL 7-25 GLUCOSE 96 mg/dL 65-100 SODIUM 141 mmol/L 135-145 POTASSIUM 4.8 mmol/L 3.5-5.0 CHLORIDE 106 mmol/L 100-110 CO2 28 meq/L 20-30 CREATININE, Serum 1.11 mg/dL 0.50-1.40 eGFR(CKD-EPI 2020) 70 mL/min >60 Jun 27, 2023 07:32 AM POST VITAMIN D (25-OH) Specimen Type: SERUM No comment entered. Ordering Provider: NEHEMIAH DAVIES Report Released Date/Time: Nov 09, 2022 12:33 PM Reporting Lab: [address] [address] Performing Lab: [address] [address] VITAMIN D (25-OH) 48 ng/mL 20-50 Jun 27, 2023 07:32 AM POST LIVER FUNCTION Specimen Type: SERUM No comment entered. Ordering Provider: NEHEMIAH DAVIES Report Released Date/Time: Nov 09, 2022 12:33 PM Reporting Lab: [address] [address] [facility] [address] [address] PROTEIN,TOTAL 6.7 g/dL 6.0-8.3 ALBUMIN 4.1 g/dL 3.5-5.0 ALKALINE PHOSPHATASE 66 U/L 40-150 AST 14 U/L 5-34 ALT 21 U/L BILIRUBIN, TOTAL 0.4 mg/dL 0.2-1.2 Jun 27, 2023 07:32 AM POST VITAMIN B12 Specimen Type: SERUM No comment entered. Ordering Provider: NEHEMIAH DAVIES Report Released Date/Time: Nov 09, 2022 12:33 PM Reporting Lab: [address] [address] Performing Lab: [address] [address] VITAMIN B12 591 pg/mL 200-900 Jun 27, 2023 07:32 AM POST MAGNESIUM Specimen Type: SERUM No comment entered. Ordering Provider: NEHEMIAH DAVIES Report Released Date/Time: Nov 09, 2022 12:33 PM Reporting Lab: [address] [address] Performing Lab: [address] [address] MAGNESIUM 2.1 mg/dL 1.6-2.6 Jun 27, 2023 07:32 AM POST CBC AND DIFF (AUTO) Specimen Type: BLOOD No comment entered. Ordering Provider: NEHEMIAH DAVIES Report Released Date/Time: Nov 09, 2022 12:33 PM Reporting Lab: [address] [address] Performing [facility]: [facility] [address] [address] WBC 8.96 10*3/uL 4.50-11.00 RBC 4.81 10*6/uL 4.23-5.66 HGB 14.0 g/dL 12.8-17 HCT 42.4 39.2-50.4 MCV 88.1 fL 82-99 MCHC 33.0 g/dL 30.8-35.1 PLT 312 10*3/uL 140-360 RDW-CV 12.3 12.0-16.0 [place], Abs 0.59 10*3/uL 0.30-1.10 MCH 29.1 pg 26.2-32.6 Neut % 65.4 43.7-75.8 Lymph % 21.4 14.0-42.3 [place] % 6.6 5.1-13.7 Eos % 4.4 0.4-6.8 [...] Source Jul 17, 2023 11:39 AM [facility] Jul 17, 2023 11:37 AM 130/70 95 6 [facility] Jul 17, 2023 10:48 AM 48 160/80 24 98 7 [facility] Social History: Smoking Status (Most current) and Tobacco Use (All prior to encounter date) This section includes the most current, and the historical, smoking and tobacco- related health factors from the [place] facility where the Encounter took place. Current Smoking Status This section includes the most current smoking, or tobacco-related health factor, from the [place] facility where the Encounter took place. Date/Time Current Smoking Status Kristie gonzalez Jul 04, 2023 09:00 AM [place]-TOBACCO FORMER USER [facility] Tobacco Use History This section includes a history of the smoking, or tobacco-related health factors, that were collected on or before the date of the Encounter. The data comes from the [place] facility where the Encounter took place. Date/Time Smoking Status/Tobacco Use Comment F acility Jul 04, 2023 09:00 AM VA-TOBACCO QUIT 15 YRS OR MORE [place] [facility] [place] [facility] Mar 14, 2022 03:02 PM VA-TOBACCO FORMER USER [facility] [place] [facility] Mar 14, 2022 03:02 PM VA-TOBACCO QUIT 15 YRS OR MORE [place] [facility] [place] [facility] Feb 08, 2021 09:00 AM VA-TOBACCO FORMER USER [place] [facility] [facility] Feb 08, 2021 09:00 AM VA-TOBACCO QUIT 15 YRS OR MORE [place] [facility] [place] [facility] October 09, 2019 01:12 PM VA-TOBACCO FORMER USER [place] [facility] [place] [facility] October 09, 2019 01:12 PM VA-TOBACCO QUIT 5 TO < 15 YRS [place] [facility] [place] [facility] Advance Directives: All historical and current Section Date Range: From patient's date of to the date document was created. This section includes ALL of a patient's completed or amended [place] Advance and Rescinded Directives. The entries below indicate that a directive exists for the patient, but an actual copy is not included with this document. The data comes from all [place] facilities. Date Advance Directives Provider Source Feb 21, 2021 ADVANCE DIRECTIVE BEL ESCALANTE [facility] Radiology Reports: +/- 30 days of the [...] the Encounter. The data comes from all [place] treatment facilities. Date/Time Radiology Report Provider Source Jul 17, 2023 11:09 AM FLUOROSCOPIC NITIN NCE OF NEEDLE/SPINE: SHAQ GREGORIO [id number] -1950 M Exm Date: JUL 17, 2023@11:09 Req Phys: BERNABE PRIETO Loc: CWM/NO/MED REHAB/SPINE INJ (Re Img Loc: [facility] 1 Service: Unknown (Case [id number] COMPLETE) FLUOROSCOPIC GUIDANCE OF NEEDLE/S(RAD Detailed) CPT:14990 Reason for Study: transforaminal epidural steroid injection Clinical History: Report Status: Verified Date Reported: JUL 17, 2023 Date Verified: JUL 17, 2023 Rotor Pilot E-Sig:/ES/LOU VICTORIA JR Report: Study: Pain injection [...] Primary Interpreting Staff: LOU VICTORIA JR, Radiologist (Rotor Pilot) /LOU WASHINGTON JR [facility] Encounter Notes: All associated encounter notes This section contains the clinical notes associated to the Encounter. Date/Time Encounter Note(s) Provider Source Jul 17, 2023 10:51 AM NURSING OUTPATIENT NOTE: LOCAL TITLE: NURSING/SPECIALTY CLINIC NOTE STANDARD TITLE: NURSING OUTPATIENT NOTE DATE OF NOTE: JUL 17, 2023@10:51 ENTRY DATE: JUL 17, 2023@10:51:49 AUTHOR: LILY MOJICA EXP COSIGNER: URGENCY: STATUS: COMPLETED Ophelia SHAQ GREGORIO into Medical Rehabilitation this date. B/P 160/80 (07/17/2023 10:48) right arm, sitting, taken manually level of heart. pulse 48 auscultate apical full minute. (07/17/2023 10:48). B/P left arm, sitting automatic cuff 174/74 . B/P re-check pre procedure Right arm, sitting taken manually level of heart 146/72. B/P taken end of visit / post procedure 130/70. Medications taken as prescribed. Denies chest pain/ +SOB - AFIB. agreeable and cooperative. Will alert PCP LANCE CUEVAS and care program resident. /robe/ Lily Mojica LPN LPN Signed: 07/17/2023 13:02 Receipt Acknowledged By: 07/17/2023 14:55 /es/ NEHEMIAH CUEVAS MD PHYSICIAN 07/17/2023 13:39 /es/ JEREMY WICK RN REGISTERED NURSE for [facility]
--- OUTSIDE RECORDS SUMMARY | 2024-04-28 10:56 | XMS_ITS | Encounter Summary ---
Author Name [facility] [place] Address [address] [place] [id number] Care Team Providers Care Inspector Final Assembly Mechanical Name Role Phone NEHEMIAH CUEVAS Primary Care [...] Name Patient's Relationship to Policy Orellana ANA [facility] Aug 11, 2014 [id number] [phone] DHAVAL SHAQ Wagner PATIENT ANA BCBS [facility] MEDICARE SUPPLEMEN ARTEMIO [facility] Aug 11, 2014 [id number] DHAVAL SHAQ Wagner PATIENT [place] MED[place] SUPPLEMEN ARTEMIO MEDEX 2 Aug 11, 2014 [id number] [phone] DHAVAL SHAQ Wagner [place] ARTEMIO MEDEX 2 Aug 11, 2014 [id number] [phone] DHAVAL SHAQ Wagner [place] ARTEMIO MEDEX 2 Aug 11, 2014 [id number] ARCHAMBEA SHAQ Wagner PATIENT [place] MEDICARE SUPPLEMEN [place] [place] [place] Aug 11, 2014 [id number] SHAQ WONG PATIENT USMANA [facility] (WNR) MEDICARE ADVANTAGE HUMAN A INSUR [facility] Jan 11, 2022 [id number] [phone] ARCHOCTAVIOEA SHAQ Wagner PATIENT USMANA [facility] (WNR) MEDICARE ADVANTAGE [facility] (WNR) Jan 11, 2022 [id number] [phone] ARCHAMBEA SHAQ Wagner PATIENT MEDICARE (WNR) MEDICARE () PART A Dec 11, 2014 PART A [id number] ARCHAMBEA SHAQ Wagner PATIENT MEDICARE (WNR) MEDICARE () PART B Aug 11, 2014 PART B [id number] ARCHAMBEA SHAQ Wagner PATIENT MEDICARE (WNR) MEDICARE () PART A Aug 11, 2014 PART A [id number] ARCHAMBEA SHAQ Wagner PATIENT MEDICARE (WNR) MEDICARE () PART B Aug 11, 2014 PART B [id number] [id number] ARCHAMBEA SHAQ Wagner PATIENT MEDICARE (WNR) MEDICARE () PART A Aug 11, 2014 PART A [id number] [phone] ARCHAMBEA SHAQ Wagner PATIENT MEDICARE (WNR) MEDICARE () PART B Aug 11, 2014 PART B [id number] ARCHAMBEA SHAQ Wagner PATIENT MEDICARE (WNR) MEDICARE () PART B Aug 11, 2014 PART B [id number] ARCHAMBEA SHAQ Wagner PATIENT MEDICARE (WNR) MEDICARE () PART A Aug 11, 2014 PART A [id number] ARCHAMBEA SHAQ Wagner [facility] (WNR) MEDICARE ADVANTAGE [facility] (WNR) May 13, 2020 [id number] ARCHOCTAVIOEA SHAQ Wagner PATIENT Selected Encounter This section includes the information on record at [place] for the Encounter. Date/Time Encounter Type Encounter Description Reason Provider Source Jul 23, 2023 09:59 AM MTMS BY PHARM JOSE 15 MIN TELEPHONE/ANCILLAR Y ICD-10-CM I48.91 Unspecified atrial fibrillation CHUY ELKINS Lillian Encounter Template Text not used by [place] Assessments - Encounter Diagnoses This section includes the primary and secondary diagnoses documented for the Encounter. 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. This section includes future appointments and future [...] MEDICIN E [facility] [facility] Aug 30, 2023 08:45 AM AMBULATORY - MEDICINE [place] [facility] [place] [facility] October 02, 2023 08:00 AM AMBULATORY - REHAB MEDICIN E [facility] [place] [facility] October 08, 2023 11:00 AM AMBUL[facility]ORY [facility] October 09, 2023 08:30 AM AMBULATORY - MEDICINE [place] [facility] [place] [place] [facility] Oct 23, 2023 08:30 AM [facility] Nov 19, 2023 08:30 AM AMBULATORY - MEDICINE [place] [facility] [place] [facility] Nov 28, 2023 07:30 AM AMBULATORY - REHAB MEDICIN E [facility] [place] [facility] Dec 23, 2023 07:30 AM AMBULATORY - MEDICINE [place] [facility] [place] [facility] Dec 23, 2023 03:15 PM AMBULATORY - MEDICINE [facility] Lab Results: +/- 30 days of the [...] Range Comment Jun 27, 2023 07:32 AM CANVAS BASIC METABOLIC PANEL (fasting) Specime n Type: SERUM No comment entered. Ordering Provider: NEHEMIAH DAVIES Report Released Date/Time: Nov 09, 2022 12:33 PM Reporting Lab: [address] [address] Performing Lab: [address] [address] UREA NITROGEN 18 mg/dL 7-25 GLUCOSE 96 mg/dL 65-100 SODIUM 141 mmol/L 135-145 POTASSIUM 4.8 mmol/L 3.5-5.0 CHLORIDE 106 mmol/L 100-110 CO2 28 meq/L 20-30 CREATININE, Serum 1.11 mg/dL 0.50-1.40 eGFR(CKD-EPI 2020) 70 mL/min >60 Jun 27, 2023 07:32 AM [facility]AS VITAMIN D (25-OH) Specimen Type: SERUM No comment entered. Ordering Provider: NEHEMIAH DAVIES Report Released Date/Time: Nov 09, 2022 12:33 PM Reporting Lab: [address] [address] Performing Lab: [address] [address] VITAMIN D (25-OH) 48 ng/mL 20-50 Jun 27, 2023 07:32 AM CANVAS LIPID PANEL FASTING Specimen Type: SERUM No comment entered. Ordering Provider: NEHEMIAH DAVIES Report Released Date/Time: Nov 09, 2022 12:33 PM Reporting Lab: [address] [address] Performing Lab: [address] [address] CHOLESTEROL 156 mg/dL TRIGLYCERIDE 83 mg/dL 0-150 LDL calculated 78 mg/dL 0-129 CHOL/HDL 2.6 HDL CHOLESTEROL 61 mg/dL H 40-60 Jun 27, 2023 07:32 AM CANVAS LIVER FUNCTION Specimen Type: SERUM No comment entered. Ordering Provider: NEHEMIAH DAVIES Report Released Date/Time: Nov 09, 2022 12:33 PM Reporting [facility]: [facility] [address] Performing Lab: [facility] [address] [address] PROTEIN,TOTAL 6.7 g/dL 6.0-8.3 ALBUMIN 4.1 g/dL 3.5-5.0 ALKALINE PHOSPHATASE 66 U/L 40-150 AST 14 U/L 5-34 ALT 21 U/L BILIRUBIN, TOTAL 0.4 mg/dL 0.2-1.2 Jun 27, 2023 07:32 AM [facility] VITAMIN B12 Specimen Type: SERUM No comment entered. Ordering Provider: NEHEMIAH DAVIES Report Released Date/Time: Nov 09, 2022 12:33 PM Reporting Lab: [facility] [address] [address] Performing Lab: [facility] [address] [address] VITAMIN B12 591 pg/mL 200-900 Jun 27, 2023 07:32 AM [facility] MAGNESIUM Specimen Type: SERUM No comment entered. Ordering Provider: NEHEMIAH DAVIES Report Released Date/Time: Nov 09, 2022 12:33 PM Reporting Lab: [facility] [address] [address] Performing Lab: [address] [address] MAGNESIUM 2.1 mg/dL 1.6-2.6 Jun 27, 2023 07:32 AM CANVAS CBC AND DIFF (AUTO) Specimen Type: BLOOD No comment entered. Ordering Provider: NEHEMIAH DAVIES Report Released Date/Time: Nov 09, 2022 12:33 PM Reporting Lab: [facility] [address] [address] Performing Lab: [facility] [address] [address] WBC 8.96 10*3/uL 4.50-11.00 RBC 4.81 10*6/uL 4.23-5.66 HGB 14.0 g/dL 12.8-17 HCT 42.4 39.2-50.4 MCV 88.1 fL 82-99 MCHC 33.0 g/dL 30.8-35.1 PLT 312 10*3/uL 140-360 RDW-CV 12.3 12.0-16.0 Briscoe, Abs 0.59 10*3/uL 0.30-1.10 MCH 29.1 pg 26.2-32.6 Neut % 65.4 43.7-75.8 Lymph % 21.4 14.0-42.3 Briscoe % 6.6 5.1-13.7 Eos % 4.4 0.4-6.8 [...] BEL ESCALANTE [facility] Radiology Reports: +/- 30 days of the [...] FLUOROSCOPIC NITIN NCE OF NEEDLE/SPINE: SHAQ GREGORIO [id number] -1950 M Exm Date: JUL 17, 2023@11:09 Req Phys: BERNABE PRIETO THI Pat Loc: CWM/NO/MED REHAB/SPINE INJ (Re Img Loc: [facility]/BUILDING 1 Service: Unknown (Case [id number] COMPLETE) FLUOROSCOPIC GUIDANCE OF NEEDLE/S(RAD Detailed) CPT:37577 Reason for Study: transforaminal epidural steroid injection Clinical History: Report Status: Verified Date Reported: JUL 17, 2023 Date Verified: JUL 17, 2023 Job Printer Apprentice E-Sig:/ES/LOU VICTORIA JR Report: Study: Pain injection [...] Primary Interpreting Staff: LOU VICTORIA JR, Radiologist (Job Printer Apprentice) /LOU WASHINGTON JR [facility] Encounter Notes: All associated encounter notes This section contains the clinical notes associated to the Encounter. Date/Time Encounter Note(s) Provider Source Jul 23, 2023 09:59 AM PHARMACY MEDICATIO N MGT NOTE: LOCAL TITLE: PHARMACY ANTICOAGULATION NOTE STANDARD TITLE: PHARMACY MEDICATION MGT NOTE DATE OF NOTE: JUL 23, 2023@09:59 ENTRY DATE: JUL 23, 2023@09:59:20 AUTHOR: CHUY ELKINS COSIGNER: URGENCY: STATUS: COMPLETED Follow-up: Anticoagulation DOAC Agent Progress Note Reason for visit: 4 week Apixaban/Eliquis Follow-Up Start Date: 06/25/23 Expected Duration: indefinite Referring Provider: Shyla Khan ([facility]) Patient Contact: Patient has given permission to leave anticoagulation message on answering machine or with person listed. Subjective: Called pt for 4 week apixaban f/u, he offers the following information: Missed Doses: No Last Refill: 06/21/23 for 90DS Refill Needed: No Administration Time: 5am and 5pm Bleeding: No Dizziness/Vision Changes/Extremity Weakness: No Med Changes: No Alcohol: Yes 1 beer once in a while Storage of Medication: Appropriate Surgeries/Procedures: No Objective: Labs: CBC (last 90 days): Collection DT Specimen Test Name Result Units Ref Range 06/27/2023 07:32 BLOOD WBC 8.96 K/cmm 4.50 - 11.00 06/27/2023 07:32 BLOOD RBC 4.81 M/cmm 4.23 - 5.66 06/27/2023 07:32 BLOOD HGB 14.0 g/dL 12.8 - 17 06/27/2023 07:32 BLOOD HCT 42.4 % 39.2 - 50.4 06/27/2023 07:32 BLOOD MCV 88.1 fl 82 - 99 06/27/2023 07:32 BLOOD MCHC 33.0 g/dL 30.8 - 35.1 06/27/2023 07:32 BLOOD PLT 312 K/cmm 140 - 360 06/27/2023 07:32 BLOOD RDW-CV 12.3 % 12.0 - 16.0 06/27/2023 07:32 BLOOD Neut % 65.4 % 43.7 - 75.8 06/27/2023 07:32 BLOOD Lymph % 21.4 % 14.0 - 42.3 06/27/2023 07:32 BLOOD Briscoe % 6.6 % 5.1 - 13.7 06/27/2023 07:32 BLOOD Eos % 4.4 % 0.4 - 6.8 06/27/2023 07:32 BLOOD Baso % 0.6 % 0.1 - 2.0 SrCr (last 6 weeks): CREATININE-EGFR 06/27/23 07:32 1.11 CRCL IBW: CrCl(est): 55.7 mL/min (Creat:1.11 06/27/23) CRCL ACT: 55.86 mL/min CRCL ADJ: 55.7 mL/min (06/27/23) LFTs WNL Jun 2023 Vitals: Weight (BMI): 146.6 lb [66.50 kg] (07/04/2023 08:49) Height: 68 in [172.7 cm] (02/21/2021 09:21) BMI: 22.3 Active Outpatient Medications (including Supplies): APIXABAN 5MG TAB TAKE ONE TABLET BY MOUTH EVERY 12 HOURS ACTIVE DRONEDARONE 400MG TAB TAKE ONE TABLET BY [...] ACTIVE THREE TIMES DAILY NEEDED FOR PAIN NEXT FILL 08/02/23 ROPINIROLE HCL 0.25MG TAB TAKE ONE TABLET BY MOUTH DAILY ACTIVE Non-VA ACETAMINOPHEN 500MG TAB 1000MG BY MOUTH THREE TIMES ACTIVE DAILY NEEDED Interacting Meds: dronedarone (increased bleeding risk) Assessment/Plan: - Pt taking medication appropriately - Continue : Apixaban 5mg twice daily - Given completion of therapy x4 weeks w/o concerns, will discharge to passive monitoring via DOAC dashboard Time Spent: 5 mins Next Appt: N/A- discharge to passive monitoring Next PCP Appt: 01/06/2024 09:00 CWM/SO/PACT 5 EDUCATION Provided with verbal instructions: Yes Provided with written instructions: No Barriers to learning: No Readiness to learn: Yes Specific dose directions reviewed: Yes Opportunity for questions/discussion: Yes Reports understanding of instructions: Yes Further learning needs: No /robe/ Chuy Elkins PharmD, BCACP Clinical Fact Checker Signed: 07/23/2023 10:03 Receipt Acknowledged By: 07/23/2023 10:06 /robe/ ALLISON PORTER CPHT Clinical Major General CHUY ELKINS [facility] (270GE)
--- OUTSIDE RECORDS SUMMARY | 2024-04-28 10:57 | XMS_ITS | Encounter Summary ---
Author Name [place] Address [address] [place] [address] Care Team Providers Care Outside Energy Sales Representatives Name Role Phone NEHEMIAH CUEVAS Primary Care [...] Name Patient's Relationship to Policy Orellana ANA [facility] Aug 11, 2014 [id number] [phone] DHAVAL SHAQ Wagner [facility] SUPP[facility] ARTEMIO [facility] Aug 11, 2014 [id number] [phone] DHAVAL SHAQ Wagner [facility] SUPPLEMEN ARTEMIO MEDEX 2 Aug 11, 2014 [id number] DHAVAL SHAQ Wagner [facility] SUPPLEMEN ARTEMIO MEDEX 2 Aug 11, 2014 [id number] DHAVAL SHAQ Wagner PATIENT [place] MEDICARE SUPPLEMEN ARTEMIO MEDEX 2 Aug 11, 2014 [id number] [phone] ARCHAMBEA SHAQ Wagner PATIENT [place] MEDICARE SUPPLEMEN [employer] [place] Aug 11, 2014 [id number] SHAQ WONG PATIENT USMANA [facility] (WNR) MEDICARE ADVANTAGE [facility] (WNR) Jan 11, 2022 [id number] [phone] ARCHAMBEA SHAQ Wagner PATIENT USMANA [facility] (WNR) MEDICARE ADVANTAGE HUMAN A INSUR ANCE COM Jan 11, 2022 [id number] [phone] ARCHAMBEA SHAQ Wagner PATIENT MEDICARE (WNR) MEDICARE () PART A Dec 11, 2014 PART A [id number] [phone] ARCHAMBEA U,SHAQ PATIENT MEDICARE (WNR) MEDICARE () PART A Aug 11, 2014 PART A [id number] ARCHAMBEA Bernard,SHAQ PATIENT MEDICARE (WNR) MEDICARE () PART B Aug 11, 2014 PART B [id number] ARCHAMBEA SHAQ Wagner PATIENT MEDICARE (WNR) MEDICARE () PART A Aug 11, 2014 PART A [id number] ARCHAMBEA U,SHAQ PATIENT MEDICARE (WNR) MEDICARE () PART B Aug 11, 2014 PART B [id number] ARCHAMBEA U,SHAQ PATIENT MEDICARE (WNR) MEDICARE () PART A Aug 11, 2014 PART A [id number] ARCHAMBEA U,SHAQ PATIENT MEDICARE (WNR) MEDICARE (M) PART B Aug 11, 2014 PART B [id number] ARCHAMBEA U,SHAQ PATIENT MEDICARE (WNR) MEDICARE () PART B Aug 11, 2014 PART B [id number] ARCHAMBEA SHAQ Wagner PATIENT [facility] (WNR) MEDICARE ADVANTAGE [facility] (WNR) May 13, 2020 [id number] ARCHAMBEA SHAQ Wagner PATIENT Selected Encounter This section includes the information on record at [place] for the Encounter. Date/Time Encounter Type Encounter Description Reason Pro vider Source Aug 07, 2023 12:23 PM Outpatient Encounter ADMIN PAT ACTIVTIES (KISHAN) IHE Encounter Template Text not used by [place] Plan of Treatment: Future Appointments (+ 6 months) and Future Tests (+/- 45 days) The Plan of Treatment section includes future care activities for the patient from all [place] [facility]. This section includes future appointments and future orders which are active, pending or scheduled. Future Appointments This section includes appointments that were scheduled to occur 6 months from the date of the Encounter, up to a maximum of 20 appointments. The data comes from all [place] treatment facilities. Appointment Date/Time Appointment Type Appointme nt Facility Name Aug 12, 2023 07:30 AM AMBULATORY - REHAB MEDICIN E [facility] [place] [facility] Aug 30, 2023 08:45 AM AMBULATORY - MEDICINE [place] [facility] October 02, 2023 08:00 AM AMBULATORY - REHAB MEDICIN E [place] [facility] [place] [facility] October 08, 2023 11:00 AM AMBULATORY - MEDICINE [facility] October 09, 2023 08:30 AM AMBULATORY - MEDICINE [place] [facility] Oct 23, 2023 08:30 AM AMBULATORY - MEDICINE [facility] Nov 19, 2023 08:30 AM AMBULATORY - MEDICINE [place] [facility] Nov 28, 2023 07:30 AM AMBULATORY - REHAB MEDICIN E [facility] [place] [facility] Dec 23, 2023 07:30 AM AMBULATORY - MEDICINE [place] [facility] [place] [facility] Dec 23, 2023 03:15 PM AMBULATORY - MEDICINE [facility] Jan 28, 2024 08:00 AM AMBULATORY - MEDICINE [place] [facility] [place] [facility] Jan 30, 2024 07:30 AM AMBULATORY - MEDICINE [place] [facility] [place] [facility] Social History: Smoking Status (Most current) and Tobacco Use (All prior to encounter date) This section includes the most current, and the historical, smoking and tobacco- related health factors from the [place] facility where the Encounter took place. Current Smoking Status This section includes the most current smoking, or tobacco-related health factor, from the [place] facility where the Encounter took place. Date/Time Current Smoking Status Comment Lor itgiuseppe Jul 04, 2023 09:00 AM [facility] Tobacco Use History This section includes a history of the smoking, or tobacco-related health factors, that were collected on or before the date of the Encounter. The data comes from the [place] facility where the Encounter took place. Date/Time Smoking Status/Tobacco Use Comment F acility Jul 04, 2023 09:00 AM VA-TOBACCO QUIT 15 YRS OR MORE [facility] [place] [facility] Mar 14, 2022 03:02 PM VA-TOBACCO FORMER USER [place] [facility] [place] [facility] Mar 14, 2022 03:02 PM VA-TOBACCO QUIT 15 YRS OR MORE [facility] [place] [facility] Feb 08, 2021 09:00 AM VA-TOBACCO FORMER USER [place] [facility] [place] [facility] Feb 08, 2021 09:00 AM VA-TOBACCO QUIT 15 YRS OR MORE [facility] [place] [facility] October 09, 2019 01:12 PM VA-TOBACCO FORMER USER [place] [facility] [place] [facility] October 09, 2019 01:12 PM VA-TOBACCO QUIT 5 TO < 15 YRS [facility] Advance Directives: All historical and current Section Date Range: From patient's date of to the date document was created. This section includes ALL of a patient's completed or amended [place] Advance and Rescinded Directives. The entries below indicate that a directive exists for the patient, but an actual copy is not included with this document. The data comes from all [place] facilities. Date Advance Directives Provider Source Feb 21, 2021 ADVANCE DIRECTIVE BEL ESCALANTE [facility] Radiology Reports: +/- 30 days of the [...] the Encounter. The data comes from all [place] treatment facilities. Date/Time Radiology Report Provider Source Jul 17, 2023 11:09 AM FLUOROSCOPIC NITIN NCE OF NEEDLE/SPINE: SHAQ GREGORIO [id number] -1950 M Exm Date: JUL 17, 2023@11:09 Req Phys: BERNABE PRIETO Loc: CWM/NO/MED REHAB/SPINE INJ (Re Img Loc: [facility]/BUILDING 1 Service: Unknown (Case [id number] COMPLETE) FLUOROSCOPIC GUIDANCE OF NEEDLE/S(RAD Detailed) CPT:32127 Reason for Study: transforaminal epidural steroid injection Clinical History: Report Status: Verified Date Reported: JUL 17, 2023 Date Verified: JUL 17, 2023 Flight/Transport Nurse E-Sig:/ROBE/LOU VICTORIA JR Report: Study: Pain injection of [...] Primary Interpreting Staff: LOU VICTORIA JR, Radiologist (Flight/Transport Nurse) /LOU WASHINGTON JR [facility] Encounter Notes: All associated encounter notes This section contains the clinical notes associated to the Encounter. Date/Time Encounter Note(s) Provider Source Aug 09, 2023 10:02 AM ADDENDUM: LOCAL TITLE: Addendum STANDARD TITLE: ADDENDUM DATE OF NOTE: AUG 09, 2023@10:02:08 ENTRY DATE: AUG 09, 2023@10:02:08 AUTHOR: MILI DEAN EXP COSIGNER: URGENCY: STATUS: COMPLETED contacted via telephone, advised that he would need to be assessed prior to issuing a consult for orthopedics. [place] offered sick-call and urgent care options. declines at this time, asks for appointment with PCP to address. Forwarding to [facility]- Please contact to assist with scheduling focused visit for foot pain. /robe/ MILI DEAN RN REGISTERED NURSE Signed: 08/09/2023 10:09 Receipt Acknowledged By: 08/09/2023 10:21 /robe/ MONICA RED AMSA --- Original Document --- 08/07/23 CCC: SCHEDULING ADMINISTRATION: Patient Demographics Patient Name: SHAQ GREGORIO Patient Primary Phone: [phone] Patient Primary Address: [address] [place] [address] Patient : 1950 Patient Age: 72 Caller/Recipient Relation to Patient: Self Administrative Administrative Note Reason: Other Administrative Note Comments: is asking for referral to get a left foot xray and f/u appt with [facility] [address] [place] [address], [place] [address] /es/ KENROY MANCILLA 1 [facility] AMSA Signed: 08/07/2023 12:24 Receipt Acknowledged By: 08/09/2023 10:09 /es/ MILI DEAN RN REGISTERED NURSE * AWAITING SIGNATURE * NATA MULLIGAN 08/09/2023 ADDENDUM STATUS: UNSIGNED You may not VIEW this UNSIGNED Addendum. MILI DEAN [facility] [place] [facility] Aug 07, 2023 12:23 PM ADMINISTRATIVE NOT E: LOCAL TITLE: CCC: SCHEDULING ADMINISTRATION STANDARD TITLE: ADMINISTRATIVE NOTE DATE OF NOTE: AUG 07, 2023@12:23:56 ENTRY DATE: AUG 07, 2023@12:23:56 AUTHOR: KENROY OROZCO EXP COSIGNER: URGENCY: STATUS: COMPLETED CCC: SCHEDULING ADMINISTRATION Has ADDENDA Patient Demographics Patient Name: SHAQ GREGORIO Patient Primary Phone: [phone] Patient Primary Address: [address] [place] [address] Patient : 1950 Patient Age: 72 Caller/Recipient Relation to Patient: Self Administrative Administrative Note Reason: Other Administrative Note Comments: [place] is asking for referral to get a left foot xray and f/u appt with [facility] [address] [place] [address], [place] [address] /es/ KENROY MANCILLA 1 [facility] LEXA Signed: 08/07/2023 12:24 Receipt Acknowledged By: 08/09/2023 10:09 /robe/ MILI DEAN RN REGISTERED NURSE 08/09/2023 13:24 /es/ NATA MULLIGAN LPN LPN 08/09/2023 ADDENDUM STATUS: COMPLETED contacted via telephone, advised that he would need to be assessed prior to issuing a consult for orthopedics. offered sick-call and urgent care options. [place] declines at this time, asks for appointment with PCP to address. Forwarding to [facility]- Please contact to assist with scheduling focused visit for foot pain. /robe/ MILI DEAN RN REGISTERED NURSE Signed: 08/09/2023 10:09 Receipt Acknowledged By: 08/09/2023 10:21 /reba LINDQUIST 08/09/2023 ADDENDUM STATUS: COMPLETED Heat Treat Worker spoke with to make appointment with PCP. /robe/ MONICA LINDQUIST Signed: 08/09/2023 10:21 KENROY OROZCO CN[facility]L [facility] GARZA [facility]
--- OUTSIDE RECORDS SUMMARY | 2024-04-28 10:57 | XMS_ITS | Encounter Summary ---
Author Name [facility] [place] Address [address] [place] [address] Care Team Providers Care Desktop Administrator Name Role Phone NEHEMIAH CUEVAS Primary Care [...] Name Patient's Relationship to Policy Orellana ANA [facility] Aug 11, 2014 [id number] DHAVAL SHAQ Wagner PATIENT ANA BCBS [facility] MEDICARE SUPPLEMEN ARTEMIO [facility] Aug 11, 2014 [id number] [phone] DHAVAL SHAQ Wagner PATIENT [facility] MEDICARE SUPPLEMEN ARTEMIO MEDEX 2 Aug 11, 2014 [id number] DHAVAL SHAQ Wagner PATIENT [place] MED[place] SUPPLEMEN ARTEMIO MEDEX 2 Aug 11, 2014 [id number] [phone] DHAVAL SHAQ Wagner [place] SUPPLEMEN ARTEMIO MEDEX 2 Aug 11, 2014 [id number] ARCHAMBEA SHAQ Wagner PATIENT [facility] BLUECARD MEDICARE SUPPLEMEN [facility] [place] [facility] Aug 11, 2014 [id number] [phone] LAURIEEA SHAQ Wagner PATIENT USMANA [facility] (WNR) MEDICARE ADVANTAGE HUMAN A INSUR [facility] Jan 11, 2022 [id number] [phone] ARCHOCTAVIOEA SHAQ Wagner PATIENT USMANA MCR (WNR) MEDICARE ADVANTAGE [facility] (WNR) Jan 11, 2022 [id number] [phone] ARCHAMBEA SHAQ Wagner PATIENT MEDICARE (WNR) MEDICARE (M) PART A Dec 11, 2014 PART A [id number] [phone] ARCHAMBEA U,SHAQ PATIENT MEDICARE (WNR) MEDICARE (M) PART A Aug 11, 2014 PART A [id number] ARCHAMBEA SHAQ Wagner PATIENT MEDICARE (WNR) MEDICARE (M) PART B Aug 11, 2014 PART B [id number] [phone] ARCHAMBEA SHAQ Wagner PATIENT MEDICARE (WNR) MEDICARE () PART A Aug 11, 2014 PART A [id number] [phone] ARCHAMBEA U,SHAQ PATIENT MEDICARE (WNR) MEDICARE (M) PART B Aug 11, 2014 PART B [id number] ARCHAMBEA U,SHAQ PATIENT MEDICARE (WNR) MEDICARE (M) PART A Aug 11, 2014 PART A [id number] ARCHAMBEA U,SHAQ PATIENT MEDICARE (WNR) MEDICARE (M) PART B Aug 11, 2014 PART B [id number] [phone] ARCHAMBEA U,SHAQ PATIENT MEDICARE (WNR) MEDICARE (M) PART B Aug 11, 2014 PART B [id number] [phone] ARCHAMBEA SHAQ Wagner PATIENT [facility] (WNR) MEDICARE ADVANTAGE [facility] (WNR) May 13, 2020 [id number] ARCHAMBEA SHAQ Wagner PATIENT Selected Encounter This section includes the information on record at [place] for the Encounter. Date/Time Encounter Type Encounter Description Reason Pro vider Source Aug 01, 2023 09:09 AM Outpatient Encounter ADMIN PAT ACTIVTIES (SURINDERNONCT) IHE Encounter Template Text not used by [place] Plan of Treatment: Future Appointments (+ 6 months) and Future Tests (+/- 45 days) The Plan of Treatment section includes future care activities for the patient from all [place] [facility] This section includes future appointments and [...] MEDICIN E [place] [facility] [place] [facility] Aug 30, 2023 08:45 AM AMBULATORY - MEDICINE [place] [facility] [place] [facility] October 02, 2023 08:00 AM AMBULATORY - REHAB MEDICIN E [facility] [place] [facility] October 08, 2023 11:00 [facility] October 09, 2023 08:30 AM AMBULATORY - MEDICINE [place] [facility] [place] [facility] Oct 23, 2023 08:30 AM AMBULATORY - MEDICINE [facility] Nov 19, 2023 08:30 AM AMBULATORY - MEDICINE [place] [facility] [facility] Nov 28, 2023 07:30 AM AMBULATORY - REHAB MEDICIN E [facility] [place] [facility] Dec 23, 2023 07:30 AM AMBULATORY - MEDICINE [place] [facility] [place] [facility] Dec 23, 2023 03:15 PM AMBULATORY - MEDICINE [facility] Jan 28, 2024 08:00 AM AMBULATORY - MEDICINE [place] [facility] [place] [facility] Jan 30, 2024 07:30 AM AMBULATORY - MEDICINE [place] [facility] [place] [facility] Social History: Smoking Status (Most [...] 04, 2023 09:00 AM [facility]CO [facility] Tobacco Use History This section includes a history of the smoking, or tobacco-related health factors, that were collected on or before the date of the Encounter. The data comes from the [place] facility where the Encounter took place. Date/Time Smoking Status/Tobacco Use Comment F acility Jul 04, 2023 09:00 AM VA-TOBACCO QUIT 15 YRS OR MORE [place] [facility] [place] [facility] Mar 14, 2022 03:02 PM VA-TOBACCO FORMER USER [place] [facility] [place] [facility] Mar 14, 2022 03:02 PM VA-TOBACCO QUIT 15 YRS OR MORE [place] [facility] [place] [facility] Feb 08, 2021 09:00 AM VA-TOBACCO FORMER USER [place] [facility] [place] [facility] Feb 08, 2021 09:00 AM VA-TOBACCO QUIT 15 YRS OR MORE [place] [facility] [place] [facility] October 09, 2019 01:12 PM VA-TOBACCO FORMER USER [place] [facility] [place] [facility] October 09, 2019 01:12 PM VA-TOBACCO QUIT 5 TO < 15 YRS [facility] Advance Directives: All historical and [...] 2021 ADVANCE DIRECTIVE BEL ESCALANTE [facility] Radiology Reports: +/- 30 days [...] FLUOROSCOPIC NITIN NCE OF NEEDLE/SPINE: SHAQ GREGORIO [id number] -1950 M Exm Date: JUL 17, 2023@11:09 Req Phys: BERNABE PRIETO Loc: CWM/NO/MED REHAB/SPINE INJ (Re Img Loc: [facility]/BUILDING 1 Service: Unknown (Case [id number] COMPLETE) FLUOROSCOPIC GUIDANCE OF NEEDLE/S(RAD Detailed) CPT:11210 Reason for Study: transforaminal epidural steroid injection Clinical History: Report Status: Verified Date Reported: JUL 17, 2023 Date Verified: JUL 17, 2023 Breaker Hand E-Sig:/ES/LOU VICTORIA JR Report: Study: Pain injection [...] Primary Interpreting Staff: LOU VICTORIA JR, Radiologist (Breaker Hand) /LOU WASHINGTON JR [facility] Encounter Notes: All associated encounter notes This section contains the clinical notes associated to the Encounter. Date/Time Encounter Note(s) Provider Source Aug 01, 2023 09:09 AM ADMINISTRATIVE NOTE: LOCAL TITLE: CCC: SCHEDULING ADMINISTRATION STANDARD TITLE: ADMINISTRATIVE NOTE DATE OF NOTE: AUG 01, 2023@09:09:52 ENTRY DATE: AUG 01, 2023@09:09:52 AUTHOR: CHAN PERDEU COSIGNER: URGENCY: STATUS: COMPLETED CCC: SCHEDULING ADMINISTRATION Has ADDENDA Patient Demographics Patient Name: SHAQ GREGORIO Patient Primary Phone: [phone] Patient Primary Address: [address] [place] [id number] Patient : 1950 Patient Age: 72 Caller/Recipient Relation to Patient: Self Administrative Administrative Note Reason: Community Care / [place] Act Administrative Note Comments: REQUESTING AUTHORIZATION TO BE SEEN OUTSIDE THE [place] [facility] AT [address] [address] PHONE NUMBER [phone] FAX NUMBER [phone] DR. RYAN INMAN HAS UPCOMING APPT ON AUGUST 27 2023 8:45AM. PLEASE ASSIST. /robe/ CHAN PERDUE Signed: 08/01/2023 09:10 Receipt Acknowledged By: 08/01/2023 16:10 /robe/ MILI DEAN RN REGISTERED NURSE 08/02/2023 15:17 /robe/ NATA MULLIGAN LPN LPN 08/01/2023 ADDENDUM STATUS: COMPLETED [place] has active CC Cardiology consult with [facility] Cardiology. No action required prior to visit on 08/27/23. Referral Number: [id number] Priority: Routine Referral Issue Date: 2023-07-04 Expiration Date: 2024-01-01 First Appointment Date: 2023-07-05 /reba DEAN RN REGISTERED NURSE Signed: 08/01/2023 16:10 CHAN PERDUE [place] [facility]
--- OUTSIDE RECORDS SUMMARY | 2024-04-28 10:57 | XMS_ITS | Encounter Summary ---
Author Name [facility] [place] Address [address] [place] [address] Care Team Providers Care Emergency Preparedness Coordinator Name Role Phone NEHEMIAH CUEVAS Primary Care [...] Name Patient's Relationship to Policy Orellana ANA [facility] Aug 11, 2014 [id number] DHAVAL SHAQ Wagner [facility] SUPPLEMEN ARTEMIO [facility] Aug 11, 2014 [id number] DHAVAL SHAQ [facility]PP[facility]MEN ARTEMIO MEDEX 2 Aug 11, 2014 [id number] DHAVAL SHAQ Wagner [facility] SUPPLEMEN ARTEMIO MEDEX 2 Aug 11, 2014 [id number] [phone] DHAVAL SHAQ Wagner PATIENT [place] MEDICARE SUPPLEMEN ARTEMIO MEDEX 2 Aug 11, 2014 [id number] AR[place]BEA SHAQ Wagner PATIENT [facility] MEDICARE SUPPLEMEN [facility] [place] [facility] Aug 11, 2014 [id number] SHAQ WONG PATIENT USMANA [facility] (WNR) MEDICARE ADVANTAGE [facility] (WNR) Jan 11, 2022 [id number] [phone] ARCHAMBEA SHAQ Wagner PATIENT USMANA [facility] (WNR) MEDICARE ADVANTAGE HUMAN A INSUR ANCE COM Jan 11, 2022 [id number] [phone] ARCHAMBEA SHAQ Wagner PATIENT MEDICARE (WNR) MEDICARE () PART A Dec 11, 2014 PART A [id number] ARCHAMBEA U,SHAQ PATIENT MEDICARE (WNR) MEDICARE () PART A Aug 11, 2014 PART A [id number] [phone] ARCHAMBEA Bernard,SHAQ PATIENT MEDICARE (WNR) MEDICARE () PART B Aug 11, 2014 PART B [id number] ARCHAMBEA SHAQ Wagner PATIENT MEDICARE (WNR) MEDICARE () PART A Aug 11, 2014 PART A [id number] ARCHAMBEA U,SHAQ PATIENT MEDICARE (WNR) MEDICARE () PART B Aug 11, 2014 PART B [id number] ARCHAMBEA U,SHAQ PATIENT MEDICARE (WNR) MEDICARE () PART A Aug 11, 2014 PART A [id number] [phone] ARCHAMBEA U,SHAQ PATIENT MEDICARE (WNR) MEDICARE (M) PART B Aug 11, 2014 PART B [id number] ARCHAMBEA U,SHAQ PATIENT MEDICARE (WNR) MEDICARE () PART B Aug 11, 2014 PART B [id number] [phone] ARCHAMBEA SHAQ Wagner PATIENT [facility] (WNR) MEDICARE ADVANTAGE [facility] (WNR) May 13, 2020 [id number] ARCHAMBEA SHAQ Wagner PATIENT Selected Encounter This section includes the information on record at [place] for the Encounter. Date/Time Encounter Type Encounter Description Reason Pro vider Source Aug 26, 2023 10:09 AM Outpatient Encounter ADMIN PAT ACTIVTIES (KISHAN) IHE Encounter Template Text not used by CT Plan of Treatment: Future Appointments (+ 6 months) and Future Tests (+/- 45 days) The Plan of Treatment section includes future care activities for the patient from all [place] treatment[facility]. This section includes future appointments and future [...] 30, 2023 08:45 AM AMBULATORY - MEDICINE [facility] [place] [place] [facility] October 02, 2023 08:00 AM AMBULATORY - REHAB MEDICIN E [place] [facility] [place] [facility] October 08, 2023 11:00 AM AMBULATORY - MEDICINE [facility] October 09, 2023 08:30 AM AMBULATORY - MEDICINE [facility] C [place] [place] [facility] Oct 23, 2023 08:30 AM AMBULATORY - MEDICINE [facility] Nov 19, 2023 08:30 AM AMBULATORY - MEDICINE [facility] [place] [place] [facility] Nov 28, 2023 07:30 AM AMBULATORY - REHAB MEDICIN E [place] [facility] [place] [facility] Dec 23, 2023 07:30 AM AMBULATORY - MEDICINE CT C [place] [place] [facility] Dec 23, 2023 03:15 PM AMBULATORY - MEDICINE [facility] Jan 28, 2024 08:00 AM AMBULATORY - MEDICINE [facility] [place] [place] [facility] Jan 30, 2024 07:30 AM AMBULAT[facility] Social History: Smoking Status (Most current) [...] 04, 2023 09:00 AM [facility] Tobacco Use History This section includes a history of the smoking, or tobacco-related health factors, that were collected on or before the date of the Encounter. The data comes from the [place] facility where the Encounter took place. Date/Time Smoking Status/Tobacco Use Comment F acility Jul 04, 2023 09:00 AM VA-TOBACCO QUIT 15 YRS OR [facility] Mar 14, 2022 03:02 PM VA-TOBACCO FORMER USER [facility] CNTR [facility] Mar 14, 2022 03:02 PM VA-TOBACCO QUIT 15 YRS OR [facility] Feb 08, 2021 09:00 AM VA-TOBACCO [facility] Feb 08, 2021 09:00 AM VA-TOBACCO QUIT 15 YRS OR MORE [facility] October 09, 2019 01:12 PM [facility]AC[facility] October 09, 2019 01:12 PM VA-TOBACCO QUIT 5 TO < 15 YRS [facility] Advance Directives: All historical and current [...] ADVANCE DIRECTIVE BEL ESCALANTE [facility] Encounter Notes: All associated encounter notes This section contains the clinical notes associated to the Encounter. Date/Time Encounter Note(s) Provider Source Aug 26, 2023 10:09 AM PHARMACY NOTE: LOCAL TITLE: PHARMACY CUSTOMER CARE MEDICATION RENEWAL STANDARD TITLE: PHARMACY NOTE DATE OF NOTE: AUG 26, 2023@10:09 ENTRY DATE: AUG 26, 2023@10:09:58 AUTHOR: JESSEE NGUYEN COSIGNER: URGENCY: STATUS: COMPLETED Date: Aug Division: [facility] referred by Pharmacy Call Center for medication renewal: Controlled substance Medications requested: [id number] OXYCODONE HCL 5MG/APAP 325MG TAB Defer to primary care provider To be mailed . Please review and renew if appropriate. *This note was generated by [facility] [facility] Customer Care. If you have any questions or need assistance, do not contact this author. Please refer all questions to your local, on-site pharmacy departments. /robe/ JESSEE NGUYEN CPhT [place], [place]/Pharmacy Customer Care Signed: 08/26/2023 10:10 Receipt Acknowledged By: 08/26/2023 16:00 /robe/ MILI DEAN RN REGISTERED NURSE 08/27/2023 13:24 /robe/ NEHEMIAH CUEVAS MD PHYSICIAN JESSEE NGUYEN [facility]
--- OUTSIDE RECORDS SUMMARY | 2024-04-28 10:57 | XMS_ITS | Encounter Summary ---
Author Name [place] Address [address] [place] [id number] Care Team Providers Care Blind Lacer Name Role Phone NEHEMIAH CUEAVS Primary Care Provide r Unavailable Insurance Providers: [...] Name Patient's Relationship to Policy Orellana ANA [facility] Aug 11, 2014 [id number] [phone] DHAVAL SHAQ Wagner PATIENT ANA BCBS [facility] MEDICARE SUPPLEMEN ARTEMIO [facility] Aug 11, 2014 [id number] DHAVAL SHAQ Wagner PATIENT [place] SUPPLEMEN ARTEMIO MEDEX 2 Aug 11, 2014 [id number] DHAVAL SHAQ [place] [facility] MEDEX 2 Aug 11, 2014 [id number] DHAVAL SHAQ Wagner [place] SUPPLE[place] [facility] MEDEX 2 Aug 11, 2014 [id number] ARCHAMBEA SHAQ Wagner PATIENT [place] MEDICARE SUPPLEMEN [facility] [place] Aug 11, 2014 [id number] [phone] LAURIEEA SHAQ Wagner PATIENT HUMANA [facility] (WNR) MEDICARE ADVANTAGE [facility] (WNR) Jan 11, 2022 [id number] [phone] ARCHAMBEA SHAQ Wagner PATIENT HUMANA [facility] (WNR) MEDICARE ADVANTAGE HUMAN A INSUR ANCE COM Jan 11, 2022 [id number] [phone] ARCHAMBEA U,SHAQ PATIENT MEDICARE (WNR) MEDICARE (M) PART A Dec 11, 2014 PART A [id number] [phone] ARCHAMBEA U,SHAQ PATIENT MEDICARE (WNR) MEDICARE () PART B Aug 11, 2014 PART B [id number] [phone] ARCHAMBEA U,SHAQ PATIENT MEDICARE (WNR) MEDICARE () PART A Aug 11, 2014 PART A [id number] ARCHAMBEA U,SHAQ PATIENT MEDICARE (WNR) MEDICARE () PART B Aug 11, 2014 PART B [id number] ARCHAMBEA U,SHAQ PATIENT MEDICARE (WNR) MEDICARE () PART A Aug 11, 2014 PART A [id number] ARCHAMBEA U,SHAQ PATIENT MEDICARE (WNR) MEDICARE () PART B Aug 11, 2014 PART B [id number] ARCHAMBEA U,SHAQ PATIENT MEDICARE (WNR) MEDICARE () PART A Aug 11, 2014 PART A [id number] ARCHAMBEA U,SHAQ PATIENT MEDICARE (WNR) MEDICARE (M) PART B Aug 11, 2014 PART B [id number] ARCHAMBEA SHAQ Wagner PATIENT [facility] (WNR) MEDICARE ADVANTAGE [facility] (WNR) May 13, 2020 [id number] ARCHAMBEA U,SHAQ PATIENT Selected Encounter This section includes the information on record at [place] for the Encounter. Date/Time Encounter Type Encounter Description Reason Provider Source Aug 12, 2023 07:30 AM OFFICE O/P EST MOD 30 MIN PM&RS PHYSICIAN ICD-10-CM M46.1 Sacroiliitis, not elsewhere classified NOEMY COHEN [facility] Encounter Template Text not used by [place] Assessments - Encounter Diagnoses This section includes the primary and secondary diagnoses documented for the Encounter. Date/Time Primary/Secondary Diagnosis Diagnosis Name Provider Source September 18, 2023 11:50 AM PRIMARY Sacroiliitis, not elsewhere classified ALYCE COHEN [place] [facility] [place] [facility] September 18, 2023 11:50 AM SECONDARY Intervertebral disc disorders w radiculopathy, lumbar region ALYCE COHEN [place] [facility] [place] [facility] Plan of Treatment: Future Appointments (+ 6 months) and Future Tests (+/- 45 days) The Plan of Treatment section includes future care activities for the patient from all [place] treatmentfacilities. This section includes future appointments and future orders which are active, pending or scheduled. Future Appointments This section includes appointments that were scheduled to occur 6 months from the date of the Encounter, up to a maximum of 20 appointments. The data comes from all [place] treatment facilities. Appointment Date/Time Appointment Type Appointme nt Facility Name Aug 30, 2023 08:45 AM AMBULATORY - MEDICINE [place] [facility] [place] [facility] October 02, 2023 08:00 AM AMBULATORY - REHAB MEDICIN E [place] [facility] [place] [facility] October 08, 2023 11:00 AM AM[facility]ULATORY [facility] October 09, 2023 08:30 AM AMBULATORY - MEDICINE [place] [facility] [facility] Oct 23, 2023 08:30 AM AMBULATORY - MEDICINE [facility] Nov 19, 2023 08:30 AM AMBULATORY - MEDICINE [place] [facility] [place] [facility] Nov 28, 2023 07:30 AM AMBULATORY - REHAB MEDICIN E [place] [facility] [place] [facility] Dec 23, 2023 07:30 AM AMBULATORY - MEDICINE [place] [facility] [place] [facility] Dec 23, 2023 03:15 PM AMBULATORY - MEDICINE [facility] Jan 28, 2024 08:00 AM AMBULATORY - MEDICINE [place] [facility] [place] [facility] Jan 30, 2024 07:30 AM AMBULATORY - MEDICINE [place] [facility] [place] [facility] Vital Signs: All taken on the encounter date This section contains inpatient and outpatient Vital Signs collected on the date of the Encounter. Date/Time Temperature Pulse Blood Pressure Respiratory Rate SP02 Pain Height Weight Body Mass Index Source Aug 12, 2023 07:32 AM 130/70 4 [place] [facility] [place] [facility] Social History: Smoking Status (Most current) and Tobacco Use (All prior to encounter date) This section includes the most current, and the historical, smoking and tobacco- related health factors from the [place] facility where the Encounter took place. Current Smoking Status This section includes the most current smoking, or tobacco-related health factor, from the [place] facility where the Encounter took place. Date/Time Current Smoking Status Comment Facil ity Jul 04, 2023 09:00 AM [facility] Tobacco Use History This section includes a history of the smoking, or tobacco-related health factors, that were collected on or before the date of the Encounter. The data comes from the [place] facility where the Encounter took place. Date/Time Smoking Status/Tobacco Use Comment F acility Jul 04, 2023 09:00 AM VA-TOBACCO QUIT 15 YRS OR MORE [place] [facility] [place] [facility] Mar 14, 2022 03:02 PM VA-TOBACCO FORMER USER [place] [facility] [place] [facility] Mar 14, 2022 03:02 PM VA-TOBACCO QUIT 15 YRS OR MORE [place] [facility] [place] [facility] Feb 08, 2021 09:00 AM VA-TOBACCO FORMER USER [place] [facility] [place] [facility] Feb 08, 2021 09:00 AM VA-TOBACCO QUIT 15 YRS OR MORE [place] [facility] [place] [facility] October 09, 2019 01:12 PM VA-TOBACCO FORMER USER [place] [facility] [place] [facility] October 09, 2019 01:12 PM VA-TOBACCO QUIT 5 TO < 15 YRS [place] [facility] [place] [facility] Advance Directives: All historical and current Section Date Range: From patient's date of to the date document was created. This section includes ALL of a patient's completed or amended [place] Advance and Rescinded Directives. The entries below indicate that a directive exists for the patient, but an actual copy is not included with this document. The data comes from all [place] facilities. Date Advance Directives Provider Source Feb 21, 2021 ADVANCE DIRECTIVE BORISBEL Carolyn IBRAHIM REPLACED BY [facility] Radiology Reports: +/- 30 days of the [...] the Encounter. The data comes from all [place] treatment facilities. Date/Time Radiology Report Provider Source Jul 17, 2023 11:09 AM FLUOROSCOPIC NITIN NCE OF NEEDLE/SPINE: SHAQ GREGORIO [id number] -[id number] M Exm Date: JUL 17, 2023@11:09 Req Phys: BERNABE PRIETO THI Pat Loc: CWM/NO/MED REHAB/SPINE INJ (Re Img Loc: [facility] 1 Service: Unknown (Case [id number] COMPLETE) FLUOROSCOPIC GUIDANCE OF NEEDLE/S(RAD Detailed) CPT:36964 Reason for Study: transforaminal epidural steroid injection Clinical History: Report Status: Verified Date Reported: JUL 17, 2023 Date Verified: JUL 17, 2023 Coke Oven Patcher E-Sig:/ES/LOU VICTORIA JR Report: Study: Pain injection [...] Primary Interpreting Staff: LOU VICTORIA JR, Radiologist (Coke Oven Patcher) /LOU WASHINGTON JR [facility] Encounter Notes: All associated encounter notes This section contains the clinical notes associated to the Encounter. Date/Time Encounter Note(s) Provider Source Aug 12, 2023 07:59 AM PHYSICAL MEDICINE REHAB PHYSICIAN NOTE: LOCAL TITLE: PM&R FOLLOW-UP STANDARD TITLE: PHYSICAL MEDICINE REHAB PHYSICIAN NOTE DATE OF NOTE: AUG 12, 2023@07:59 ENTRY DATE: AUG 12, 2023@07:59:41 AUTHOR: EMILY COHEN EXP COSIGNER: URGENCY: STATUS: COMPLETED AUG 12, 2023 SHAQ GREGORIO is a 72 y/o MALE who presents today for follow-up of left low back pain and left leg pain. 65% improvement and left leg pain after L5-S1 and S1 transforaminal epidural injection. Persistent pain left buttock and iliac crest pain. No numbness and tingling in the left leg. In May, had fusion of the toes on the right foot. Was placing much more weight on the left side. He has a left ankle fusion. Significant pain noted at nighttime with sleep. Accustomed to sleeping on his right side and has a aching sensation in the left buttock. He has to oftentimes shift to his back but then ultimately gets out of bed. Spends more time up in the recliner. Sleep is impaired. PMHx as obtained from Chart: Active problems - Computerized Problem List is the source for the followin. AF - Atrial fibrillation 2. Long-term current use of anticoagulant 3. Unintentional weight loss 4. Lumbosacral spondylosis with radiculopathy 5. Solitary nodule of lung 6. Shared care - hospice and GP 7. Screening for malignant neoplasm colon 8. Monterroso's esophagus 9. Prostate cancer 10. Localized, secondary osteoarthritis of the ankle and/or foot 11. Degeneration of intervertebral disc 12. LBP - Low back pain 13. Shoulder joint pain 14. Restless legs 15. Care by local physician 16. Hyperlipidemia 17. History of tobacco use Soc Hx: MARITAL STATUS - [employer] FROM Jan TO Oct ALL: CODEINE, NEURONTIN MEDS: Reviewed and Reconciled ROS: Constitutional - Denies fever or chills, night sweats, or unexplained weight loss. Head/Eyes/Ears/Neck- Denies headaches, visual changes. Cardiovascular - Denies chest pain/tightness, lower extremity swelling. Respiratory - Denies shortness of breath, or cough. GI - Denies nausea, vomiting, or loss of bowel fx/control. - Denies pelvic pain or loss of bladder function. Musculoskeletal - See HPI. Neuro - Denies numbness or tingling of the extremities. Skin/integuments - Denies rashes, lesions, or skin breakdown in the extremities. All other systems reviewed and are negative. PHYSICAL EXAMINATION: Vitals in chart. GEN: WD, WN. Awake, alert, cooperative with exam. PSYCH: Good eye contact. Appropriate affect and social interaction. HEENT: Normocephalic, atraumatic. CVS: Extremities warm/well perfused. No lower extremity edema. PULM: Breathing unlabored, no accessory muscle use. ABD: Nondistended. EXTREMITIES: No cyanosis or edema of bilateral upper and lower extremities. MUSCULOSKELETAL EXAM: Appears his stated age. Somewhat frail in appearance. Cervical posture is anterior. He has elevation of the left iliac crest. Some mild tenderness in the right parathoracic region. Levoscoliosis is noted by x- ray. Elevation of the left iliac crest as previously mentioned in part due to left total knee replacement. Ambulates with antalgic gait. Tenderness over the left sacroiliac joint. Positive German sign positive Tana positive Gaenslen's maneuver. Lasegue's maneuver negative. Knee reflexes intact. Weakness in hip abduction is noted. No sensory deficit in the lower extremity. Diagnostic Studies: No new imaging. ASSESSMENT/PLAN: Patient is a 72-year-old [place] with levoscoliosis and thoracic and low back pain. Lumbar radicular pain improved after epidural injection. Residual pain due to left sacroiliac joint dysfunction and pelvic instability. -Proceed with left sacroiliac joint injection. -Lift was placed under the right leg but this increases thoracic pain so we will not utilize. -After SI joint injection we will consider physical therapy. -Discussed difficulty and getting oxycodone in a timely fashion. He wishes to have this picked up. He will communicate this with primary care physician. Does not overutilize. FOLLOW-UP: Left sacroiliac joint injection Potential risks and side effects of any medication(s) prescribed today was reviewed with . Patient had many excellent questions, which I answered to the best of my ability and to patient's apparent satisfaction. MDM: _30 minutes which includes reviewing records, evaluating patient, documenting in medical record, educating, counseling and coordinating care. Medication Reconciliation: Outpatient: Has the patient been taking medications as documented in the EMLR? YES: The patient has been taking medications as documented in the EMLR. Essential Medication List for Review used to complete this medication reconciliation. INCLUDED IN THIS LIST: Alphabetical list of active outpatient prescriptions dispensed from this [place] (local) and dispensed from another VA or [...] with a VA or non-VA provider. /robe/ EMILY COHEN [facility] Signed: 08/12/2023 08:14 EMILY COHEN [place] [facility]
--- OUTSIDE RECORDS SUMMARY | 2024-04-28 10:59 | XMS_ITS | Encounter Summary ---
Author Name [place] Address [address] [place] [address] Care Team Providers Care Locomotive Boilermaker Name Role Phone NEHEMIAH CUEVAS Primary Care [...] Name Patient's Relationship to Policy Orellana ANA [facility] Aug 11, 2014 [id number] DHAVAL SHAQ Wagner PATIENT ANA BCBS [facility] MEDICARE SUPPLEMEN ARTEMIO [facility] Aug 11, 2014 [id number] [phone] DHAVAL SHAQ Wagner [facility] SUPPLEMEN ARTEMIO MEDEX 2 Aug 11, 2014 [id number] [phone] DHAVAL SHAQ Wagner [place]PP[place] ARTEMIO MEDEX 2 Aug 11, 2014 [id number] DHAVAL SHAQ Wagner [place]PPLEMEN ARTEMIO MEDEX 2 Aug 11, 2014 [id number] ARCHAMBEA SHAQ Wagner PATIENT [facility] [place] MEDICARE SUPPLEMEN [facility] [place] [facility] [place] Aug 11, 2014 [id number] [phone] LAURIEEA SHAQ Wagner PATIENT USMANA [facility] (WNR) MEDICARE ADVANTAGE HUMAN A INSUR [place] [facility] Jan 11, 2022 [id number] [phone] ARCHOCTAVIOEA SHAQ Wagner PATIENT USMANA MCR (WNR) MEDICARE ADVANTAGE [facility] (WNR) Jan 11, 2022 [id number] [phone] ARCHAMBEA SHAQ Wagner PATIENT MEDICARE (WNR) MEDICARE (M) PART A Dec 11, 2014 PART A [id number] ARCHAMBEA U,SHAQ PATIENT MEDICARE (WNR) MEDICARE () PART A Aug 11, 2014 PART A [id number] [phone] ARCHAMBEA SHAQ Wagner PATIENT MEDICARE (WNR) MEDICARE () PART B Aug 11, 2014 PART B [id number] [phone] ARCHAMBEA SHAQ Wagner PATIENT MEDICARE (WNR) MEDICARE () PART A Aug 11, 2014 PART A [id number] [phone] ARCHAMBEA U,SHAQ PATIENT MEDICARE (WNR) MEDICARE () PART B Aug 11, 2014 PART B [id number] ARCHAMBEA U,SHAQ PATIENT MEDICARE (WNR) MEDICARE () PART B Aug 11, 2014 PART B [id number] ARCHAMBEA USHAQ PATIENT MEDICARE (WNR) MEDICARE () PART A Aug 11, 2014 PART A [id number] ARCHAMBEA U,SHAQ PATIENT MEDICARE (WNR) MEDICARE (M) PART B Aug 11, 2014 PART B [id number] [phone] ARCHAMBEA SHAQ Wagner PATIENT [facility] (WNR) MEDICARE ADVANTAGE [facility] (WNR) May 13, 2020 [id number] ARCHAMBEA SHAQ Wagner PATIENT Selected Encounter This section includes the information on record at [place] for the Encounter. Date/Time Encounter Type Encounter Description Reason Pro vider Source September 11, 2023 07:17 AM Outpatient Encounter ADMIN PAT ACTIVTIES (KISHAN) IHE Encounter Template Text not used by [place] Plan of Treatment: Future Appointments (+ 6 months) and Future Tests (+/- 45 days) The Plan of Treatment section includes future care activities for the patient from all [place] [facility] This section includes future appointments and future orders which are active, pending or scheduled. Future Appointments This section includes appointments that were scheduled to occur 6 months from the date of the Encounter, up to a maximum of 20 appointments. The data comes from all [place] treatment facilities. Appointment Date/Time Appointment Type Appointme nt Facility Name October 02, 2023 08:00 AM AMBULATORY - REHAB MEDICIN E [place] [facility] [place] [facility] October 08, 2023 11:00 AM AMBULATORY - MEDICINE [facility] October 09, 2023 08:30 AM AMBULATORY - MEDICINE [place] [facility] [place] [facility] Oct 23, 2023 08:30 AM AMBULATORY - MEDICINE [facility] Nov 19, 2023 08:30 AM AMBULATORY - MEDICINE [place] [facility] [place] [facility] Nov 28, 2023 07:30 AM AMBULATORY - REHAB MEDICIN E [place] [facility] [place] [facility] Dec 23, 2023 07:30 AM AMBULATORY - MEDICINE [place] [facility] [place] [facility] Dec 23, 2023 03:15 PM AMBULATORY - MEDICINE [facility] Jan 28, 2024 08:00 AM AMBULATORY - MEDICINE [place] [facility] [place] [facility] Jan 30, 2024 07:30 AM AMBULATORY - MEDICINE [place] [facility] [place] [facility] Mar 06, 2024 08:45 AM AMBULATORY - MEDICINE [place] [facility] [place] [facility] Mar 11, 2024 08:30 AM AMBULATORY - MEDICINE [facility] Social History: Smoking Status (Most current) and Tobacco Use (All prior to encounter date) This section includes the most current, and the historical, smoking and tobacco- related health factors from the [place] facility where the Encounter took place. Current Smoking Status This section includes the most current smoking, or tobacco-related health factor, from the [place] facility where the Encounter took place. Date/Time Current Smoking Status Comment Facil carlos Jul 04, 2023 09:00 AM [facility] [place] [facility] Tobacco Use History This section includes a history of the smoking, or tobacco-related health factors, that were collected on or before the date of the Encounter. The data comes from the [place] facility where the Encounter took place. Date/Time Smoking Status/Tobacco Use Comment Joselyn blas Jul 04, 2023 09:00 AM VA-TOBACCO QUIT 15 YRS OR MORE [place] [facility] [place] [facility] Mar 14, 2022 03:02 PM VA-TOBACCO FORMER USER [place] [facility] [place] [facility] Mar 14, 2022 03:02 PM VA-TOBACCO QUIT 15 YRS OR MORE [place] [facility] [place] [facility] Feb 08, 2021 09:00 AM VA-TOBACCO FORMER USER [place] [facility] [place] [facility] Feb 08, 2021 09:00 AM VA-TOBACCO QUIT 15 YRS OR MORE [place] [facility] [place] [facility] October 09, 2019 01:12 PM VA-TOBACCO FORMER USER [place] [facility] [place] [facility] October 09, 2019 01:12 PM VA-TOBACCO QUIT 5 TO < 15 YRS [place] [facility] [place] [facility] Advance Directives: All historical and current Section Date Range: From patient's date of to the date document was created. This section includes ALL of a patient's completed or amended [place] Advance and Rescinded Directives. The entries below indicate that a directive exists for the patient, but an actual copy is not included with this document. The data comes from all [place] facilities. Date Advance Directives Provider Source Feb 21, 2021 ADVANCE DIRECTIVE BEL ESCALANTE [facility] Radiology Reports: +/- 30 days [...] the Encounter. The data comes from all [place] treatment facilities. Date/Time Radiology Report Provider Source October 02, 2023 08:18 AM FLUOROSCOPIC NITIN NCE FOR NEEDLE PLACEMENT: SHAQ GREGORIO [id number] -[id number] M Exm Date: OCTOBER 02, 2023@08:18 Req Phys: BERNABE PRIETO Loc: CWM/NO/MED REHAB/SPINE INJ (Re Img Loc: [facility]BUILDING 1 Service: Unknown [facility] , (Case [id number] COMPLETE) FLUOROSCOPIC GUIDANCE FOR NEEDLE (RAD Detailed) CPT:26002 Proc Modifiers : LEFT Reason for Study: SI joint injection Clinical History: Report Status: Verified Date Reported: OCTOBER 02, 2023 Date Verified: OCTOBER 02, 2023 Law Secretary E-Sig:/ES/LOU VICTORIA JR Report: Study: Pain injection [...] Primary Interpreting Staff: LOU VICTORIA JR, Radiologist (Law Secretary) /LOU WASHINGTON JR [facility] Encounter Notes: All associated encounter notes This section contains the clinical notes associated to the Encounter. Date/Time Encounter Note(s) Provider Source September 11, 2023 07:17 AM ADMINISTRATIVE NOT E: LOCAL TITLE: CCC: SCHEDULING ADMINISTRATION STANDARD TITLE: ADMINISTRATIVE NOTE DATE OF NOTE: SEPTEMBER 11, 2023@07:17 ENTRY DATE: SEPTEMBER 11, 2023@07:17:50 AUTHOR: CHERYL BROWN EXP COSIGNER: URGENCY: STATUS: COMPLETED CCC: SCHEDULING ADMINISTRATION Has ADDENDA vet stated he needs a call back in regards to prostate cancer - needs preauthorization from pcp vets # [phone] ref to pact team /robe/ CHERYL BROWN Signed: 09/11/2023 07:19 Receipt Acknowledged By: 09/12/2023 16:14 /es/ MILI DEAN RN REGISTERED NURSE 09/13/2023 11:45 /es/ NATA MULLIGAN LPN LPN 09/12/2023 ADDENDUM STATUS: COMPLETED Orma with history of prostate cancer, but no previous Urology consults found. Attempted to contact via telephone to discuss, unable to leave message as has non-descript voicemail. /robe/ MILI DEAN RN REGISTERED NURSE Signed: 09/12/2023 11:22 09/12/2023 ADDENDUM STATUS: COMPLETED contacted via telephone, confirmed request, provider is Dr. So at [facility]. Community care consult submitted for PCP review. /robe/ MILI DEAN RN REGISTERED NURSE Signed: 09/12/2023 16:14 [facility]
--- OUTSIDE RECORDS SUMMARY | 2024-04-28 10:59 | XMS_ITS | Encounter Summary ---
Author Name Department of [place] Organization [place] Address [address] [place] [id number] Care Team Providers Care Data Management Engineer Name Role Phone NEHEMIAH CUEVAS Primary [...] Name Patient's Relationship to Policy [facility] Aug 11, 2014 [id number] DHAVAL SHAQ Wagner PATIENT ANA BCBS [facility] MEDICARE SUPPLEMEN ARTEMIO [facility] Aug 11, 2014 [id number] DHAVAL SHAQ Wagner PATIENT [place] MEDIC[place] SUPPLEMEN ARTEMIO MEDEX 2 Aug 11, 2014 [id number] DHAVAL SHAQ Wagner PATIENT [place] SUPPLE[place] ARTEMIO MEDEX 2 Aug 11, 2014 [id number] DHAVAL SHAQ Wagner PATIENT [place] MED[place] SUPPLEMEN ARTEMIO MEDEX 2 Aug 11, 2014 [id number] [phone] ARCHAMBEA SHAQ Wagner PATIENT [place] MEDICARE SUPPLEMEN [place] [place] [facility] [place] Aug 11, 2014 [id number] [phone] SHAQ WONG PATIENT USMANA [facility] (WNR) MEDICARE ADVANTAGE HUMAN A INSUR [facility] Jan 11, 2022 [id number] [phone] ARCHOCTAVIOEA SHAQ Wagner PATIENT USMANA [facility] (WNR) MEDICARE ADVANTAGE [facility] (WNR) Jan 11, 2022 [id number] [phone] ARCHAMBEA SHAQ Wagner PATIENT MEDICARE (WNR) MEDICARE () PART A Dec 11, 2014 PART A [id number] ARCHAMBEA SHAQ Wagner PATIENT MEDICARE (WN) MEDICARE () PART A Aug 11, 2014 PART A [id number] ARCHAMBEA SHAQ Wagner PATIENT MEDICARE (WNR) MEDICARE () PART B Aug 11, 2014 PART B [id number] ARCHAMBEA SHAQ Wagner PATIENT MEDICARE (WNR) MEDICARE () PART A Aug 11, 2014 PART A [id number] [phone] ARCHAMBEA SHAQ Wganer PATIENT MEDICARE (WNR) MEDICARE () PART B Aug 11, 2014 PART B [id number] [phone] ARCHAMBEA SHAQ Wagner PATIENT MEDICARE (WNR) MEDICARE () PART B Aug 11, 2014 PART B [id number] ARCHAMBEA SHAQ Wagner PATIENT MEDICARE (WNR) MEDICARE () PART A Aug 11, 2014 PART A [id number] ARCHAMBEA Bernard,SHAQ PATIENT MEDICARE (WNR) MEDICARE () PART B Aug 11, 2014 PART B [id number] ARCHAMBEA SHAQ Wagner PATIENT [facility] (WNR) MEDICARE ADVANTAGE [facility] (WNR) May 13, 2020 [id number] ARCHAMBEA SHAQ Wagner PATIENT Selected Encounter This section includes the information on record at [place] for the Encounter. Date/Time Encounter Type Encounter Description Reason Pro vider Source Aug 30, 2023 12:00 AM Outpatient Encounter COMMUNITY CARE CONSULT IHE Encounter Template Text not used by VA Plan of Treatment: Future Appointments (+ 6 months) and Future Tests (+/- 45 days) The Plan of Treatment section includes future care activities for the patient from all [place] treatmentfacilities. This section includes future appointments and future orders which are active, pending or scheduled. Future Appointments This section includes appointments that were scheduled to occur 6 months from the date of the Encounter, up to a maximum of 20 appointments. The data comes from all [place] treatment facilities. Appointment Date/Time Appointment Type Appointme nt Facility Name October 02, 2023 08:00 AM AMBULATORY - REHAB MEDICIN E [place] [facility] [place] [facility] October 08, 2023 11:00 AM AMBULATORY - MEDICINE [facility] October 09, 2023 08:30 AM AMBULATORY - MEDICINE ID C [facility] [place] [facility] Oct 23, 2023 08:30 AM AMBULATORY - MEDICINE [facility] Nov 19, 2023 08:30 AM AMBULATORY - MEDICINE ID C [facility] [place] [facility] Nov 28, 2023 07:30 AM AMBULATORY - REHAB MEDICIN E ID [facility] [place] [facility] Dec 23, 2023 07:30 AM AMBULATORY - MEDICINE ID C [facility] [place] [facility] Dec 23, 2023 03:15 PM AMBULATORY - MEDICINE [facility] Jan 28, 2024 08:00 AM AMBULATORY - MEDICINE ID C [facility] [place] [facility] Jan 30, 2024 07:30 AM AMBULATORY - MEDICINE [facility] [place] [facility] Social History: Smoking Status (Most current) and Tobacco Use (All prior to encounter date) This section includes the most current, and the historical, smoking and tobacco- related health factors from the [place] facility where the Encounter took place. Current Smoking Status This section includes the most current smoking, or tobacco-related health factor, from the [place] facility where the Encounter took place. Date/Time Current Smoking Status Kristie gonzalez Jul 04, 2023 09:00 AM VA-TOBACCO FORMER USER ID CNT [facility] Tobacco Use History This section includes a history of the smoking, or tobacco-related health factors, that were collected on or before the date of the Encounter. The data comes from the [place] facility where the Encounter took place. Date/Time Smoking Status/Tobacco Use Comment F acility Jul 04, 2023 09:00 AM VA-TOBACCO QUIT 15 YRS OR MORE ID [facility] [place] [facility] Mar 14, 2022 03:02 PM VA-TOBACCO FORMER USER ID [facility] [place] [facility] Mar 14, 2022 03:02 PM VA-TOBACCO QUIT 15 YRS OR MORE VA [facility] [place] [facility] Feb 08, 2021 09:00 AM VA-TOBACCO FORMER USER VA [facility] [place] [facility] Feb 08, 2021 09:00 AM VA-TOBACCO QUIT 15 YRS OR MORE ID [facility] [place] [facility] October 09, 2019 01:12 PM VA-TOBACCO FORMER USER ID [facility] [place] [facility] October 09, 2019 01:12 PM VA-TOBACCO QUIT 5 TO < 15 YRS ID [facility] Advance Directives: All historical and current Section Date Range: From patient's date of to the date document was created. This section includes ALL of a patient's completed or amended [place] Advance and Rescinded Directives. The entries below indicate that a directive exists for the patient, but an actual copy is not included with this document. The data comes from all [place] facilities. Date Advance Directives Provider Source Feb 21, 2021 ADVANCE DIRECTIVE BEL ESCALANTE [facility] Encounter Notes: All associated encounter notes This section contains the clinical notes associated to the Encounter. Date/Time Encounter Note(s) Provider Source Aug 30, 2023 12:00 AM NONVA CONSULT: LOCAL TITLE: COMMUNITY CARE-CONSULT RESULT NOTE STANDARD TITLE: NONVA CONSULT DATE OF NOTE: AUG 30, 2023 ENTRY DATE: 2023@10:45:43 AUTHOR: FRANK SWANOSN EXP COSIGNER: URGENCY: STATUS: COMPLETED VistA Imaging - Scanned Document SCANNED DOCUMENT SIGNATURE NOT REQUIRED Electronically Filed: 2023 by: FRANK VELARDE [facility]
--- OUTSIDE RECORDS SUMMARY | 2024-04-28 11:00 | XMS_ITS | Encounter Summary ---
Author Name [place] Address [address] [place] [address] Care Team Providers Care Machine Shop Inspector Name Role Phone NEHEMIAH CUEVAS Primary Care [...] ANA [facility] Aug 11, 2014 [id number] DHAVAL SHAQ Wagner PATIENT ANA BCBS [facility] MEDICARE SUPPLEMEN ARTEMIO [facility] Aug 11, 2014 [id number] DHAVAL SHAQ Wagner [facility] SUPP[facility] ARTEMIO MEDEX 2 Aug 11, 2014 [id number] DHAVAL SHAQ Wagner PATIENT [place] MED[place]ARE SUPPLEMEN ARTEMIO MEDEX 2 Aug 11, 2014 [id number] DHAVLA SHAQ Wagner PAT[place] SUPPLEMEN ARTEMIO MEDEX 2 Aug 11, 2014 [id number] [phone] ARCHAMBEA SHAQ Wagner PATIENT [facility] [place] MEDICARE SUPPLEMEN [facility] [facility] [place] Aug 11, 2014 [id number] LAURIEEA SHAQ Wagner PATIENT USMANA [facility] (WNR) MEDICARE ADVANTAGE HUMAN A INSUR [facility] Jan 11, 2022 [id number] [phone] ARCHOCTAVIOEA SHAQ Wagner PATIENT USMANA [facility] (WNR) MEDICARE ADVANTAGE [facility] (WNR) Jan 11, 2022 [id number] [phone] ARCHAMBEA SHAQ Wagner PATIENT MEDICARE (WNR) MEDICARE (M) PART A Dec 11, 2014 PART A [id number] [phone] ARCHAMBEA U,SHAQ PATIENT MEDICARE (WNR) MEDICARE () PART A Aug 11, 2014 PART A [id number] ARCHAMBEA SHAQ Wagner PATIENT MEDICARE (WNR) MEDICARE () PART B Aug 11, 2014 PART B [id number] [phone] ARCHAMBEA SHAQ Wagner PATIENT MEDICARE (WNR) MEDICARE () PART A Aug 11, 2014 PART A [id number] [phone] ARCHAMBEA U,SHAQ PATIENT MEDICARE (WNR) MEDICARE () PART B Aug 11, 2014 PART B [id number] [phone] ARCHAMBEA U,SHAQ PATIENT MEDICARE (WNR) MEDICARE () PART B Aug 11, 2014 PART B [id number] ARCHAMBEA USHAQ PATIENT MEDICARE (WNR) MEDICARE () PART A Aug 11, 2014 PART A [id number] ARCHAMBEA U,SHAQ PATIENT MEDICARE (WNR) MEDICARE (M) PART B Aug 11, 2014 PART B [id number] [phone] ARCHAMBEA SHAQ Wagner PATIENT [facility] (WNR) MEDICARE ADVANTAGE [facility] (WNR) May 13, 2020 [id number] ARCHAMBEA SHAQ Wagner PATIENT Selected Encounter This section includes the information on record at [place] for the Encounter. Date/Time Encounter Type Encounter Description Reason Pro vider Source September 24, 2023 08:07 AM Outpatient Encounter ADMIN PAT ACTIVTIES (SURINDERNONCT) IHE Encounter Template Text not used by [place] Plan of Treatment: Future Appointments (+ 6 months) and Future Tests (+/- 45 days) The Plan of Treatment section includes future care activities for the patient from all [place] [facility]. This section includes future appointments and [...] REHAB MEDICIN E [place] [facility] [place] [facility] October 08, 2023 11:00 AM AMBULATORY - MEDICINE [facility] October 09, 2023 08:30 AM AMBULATORY - MEDICINE [place] [facility] [place] [facility] Oct 23, 2023 08:30 AM [facility] Nov 19, 2023 08:30 AM AMBULATORY - MEDICINE [place] [facility] [place] [facility] Nov 28, 2023 07:30 AM AMBULATORY - REHAB MEDICIN E [place] [facility] [place] [facility] Dec 23, 2023 07:30 AM AMBULATORY - MEDICINE [place] [facility] [place] [facility] Dec 23, 2023 03:15 PM AMBULATORY - MEDICINE [facility] Jan 28, 2024 08:00 AM AMBULATORY - MEDICINE [place] C [facility] [place] [facility] Jan 30, 2024 07:30 AM AMBULATORY - MEDICINE [place] C [facility] [place] [facility] Mar 06, 2024 08:45 AM AMBULATORY - MEDICINE [place] C [facility] [place] [facility] Mar 11, 2024 08:30 AM AMBULATORY - MEDICINE [facility] Mar 16, 2024 08:30 AM AMBULATORY - MEDICINE [place] [facility] [place] [facility] Social History: Smoking Status (Most current) and [...] 04, 2023 09:00 AM VA-TOBACCO FORMER USER [place] [facility] [place] [facility] Tobacco Use History This section includes a history of the smoking, or tobacco-related health factors, that were collected on or before the date of the Encounter. The data comes from the [place] facility where the Encounter took place. Date/Time Smoking Status/Tobacco Use Comment F acdaniel Jul 04, 2023 09:00 AM VA-TOBACCO QUIT 15 YRS OR MORE [place] [facility] [place] [facility] Mar 14, 2022 03:02 PM VA-TOBACCO FORMER USER [place] [facility] [place] [facility] Mar 14, 2022 03:02 PM VA-TOBACCO QUIT 15 YRS OR MORE [place] [facility] [place] [facility] Feb 08, 2021 09:00 AM VA-TOBACCO FORMER USER [place] [facility] [place] [facility] Feb 08, 2021 09:00 AM VA-TOBACCO QUIT 15 YRS OR MORE [place] [facility] [place] [facility] October 09, 2019 01:12 PM VA-TOBACCO FORMER USER [place] [facility] [place] [facility] October 09, 2019 01:12 PM VA-TOBACCO QUIT 5 TO < 15 YRS [place] [facility] [place] [facility] Advance Directives: All historical and current Section [...] 2021 ADVANCE DIRECTIVE BEL ESCALANTE [facility] Radiology Reports: +/- 30 days of the [...] NITIN NCE FOR NEEDLE PLACEMENT: SHAQ GREGORIO [id number] -1950 M Exm Date: OCTOBER 02, 2023@08:18 Req Phys: BERNABE PRIETO THI Pat Loc: CWM/NO/MED REHAB/SPINE INJ (Re Img Loc: [facility] 1 Service: Unknown [facility] , (Case [id number] COMPLETE) FLUOROSCOPIC GUIDANCE FOR NEEDLE (RAD Detailed) CPT:17175 Proc Modifiers : LEFT Reason for Study: SI joint injection Clinical History: Report Status: Verified Date Reported: OCTOBER 02, 2023 Date Verified: OCTOBER 02, 2023 Director Of Philanthropy E-Sig:/ES/LOU VICTORIA JR Report: Study: Pain injection [...] Primary Interpreting Staff: LOU VICTORIA JR, Radiologist (Director Of Philanthropy) /LOU WASHINGTON JR [facility] Encounter Notes: All associated encounter notes This section contains the clinical notes associated to the Encounter. Date/Time Encounter Note(s) Provider Source September 24, 2023 08:07 AM ADMINISTRATIVE NOT E: LOCAL TITLE: CCC: SCHEDULING ADMINISTRATION STANDARD TITLE: ADMINISTRATIVE NOTE DATE OF NOTE: SEPTEMBER 24, 2023@08:07:55 ENTRY DATE: SEPTEMBER 24, 2023@08:07:55 AUTHOR: JESUS ALBERTO FOREMAN COSIGNER: URGENCY: STATUS: COMPLETED Patient Demographics Patient Name: SHAQ GREGORIO Patient Primary Phone: [phone] Patient Primary Address: [address] [place] [id number] Patient : 1950 Patient Age: 73 Caller/Recipient Relation to Patient: Self Administrative Administrative Note Reason: Medication Renewal [place] Medications Refill/Renewal Request: Please renew, refill and send through the mail today. Thank you. Rx #[id number] - OXYCODONE HCL 5MG/APAP 325MG TAB /es/ JESUS ALBERTO FOREMAN VISN 1 CCC AMSA Signed: 09/24/2023 08:08 Receipt Acknowledged By: 09/24/2023 15:22 /es/ MILI DEAN RN REGISTERED NURSE 09/26/2023 12:47 /es/ NEHEMIAH CUEVAS MD PHYSICIAN JESUS ALBERTO FOREMAN [facility]
--- OUTSIDE RECORDS SUMMARY | 2024-04-28 11:00 | XMS_ITS ---
Author Name [place] Address [address] [place] [address] Care Team Providers Care Serging Machine Operator Name Role Phone NEHEMIAH CUEVAS Primary [...] Patient's Relationship to Policy [facility]rellana [facility] Aug 11, 2014 [id number] [phone] DHAVAL SHAQ Wagner PATIENT ANA BCBS [facility] MEDICARE SUPPLEMEN ARTEMIO [facility] Aug 11, 2014 [id number] [phone] DHAVAL SHAQ Wagner [place] SUPPLEMEN ARTEMIO MEDEX 2 Aug 11, 2014 [id number] [phone] DHAVAL SHAQ Wagner [place] ARTEMIO MEDEX 2 Aug 11, 2014 [id number] DHAVAL SHAQ Wagner [place]PP[place] ARTEMIO MEDEX 2 Aug 11, 2014 [id number] [phone] ARCHAMBEA SHAQ Wagner PATIENT [place] MEDICARE SUPPLEMEN [employer] [facility] [place] Aug 11, 2014 [id number] SHAQ WONG PATIENT USMANA [facility] (WNR) MEDICARE ADVANTAGE HUMAN A INSUR [facility] Jan 11, 2022 [id number] [phone] ARCHOCTAVIOEA SHAQ Wagner PATIENT USMANA [facility] (WNR) MEDICARE ADVANTAGE [facility] (WNR) Jan 11, 2022 [id number] [phone] ARCHAMBEA SHAQ Wagner PATIENT MEDICARE (WNR) MEDICARE () PART A Dec 11, 2014 PART A [id number] ARCHAMBEA SHAQ Wagner PATIENT MEDICARE (WNR) MEDICARE () PART A Aug 11, 2014 PART A [id number] ARCHAMBEA SHAQ Wagner PATIENT MEDICARE (WNR) MEDICARE () PART B Aug 11, 2014 PART B [id number] ARCHAMBEA SHAQ Wagner PATIENT MEDICARE (WNR) MEDICARE () PART A Aug 11, 2014 PART A [id number] ARCHAMBEA SHAQ Wagner PATIENT MEDICARE (WNR) MEDICARE () PART B Aug 11, 2014 PART B [id number] ARCHAMBEA SHAQ Wagner PATIENT MEDICARE (WNR) MEDICARE () PART A Aug 11, 2014 PART A [id number] ARCHAMBEA Bernard,SHAQ PATIENT MEDICARE (WNR) MEDICARE () PART B Aug 11, 2014 PART B [id number] [phone] ARCHAMBEA SHAQ Wagner PATIENT MEDICARE (WNR) MEDICARE () PART B Aug 11, 2014 PART B [id number] [phone] ARCHAMBEA SHAQ Wagner [facility] (WNR) MEDICARE ADVANTAGE [facility] (WNR) May 13, 2020 [id number] [phone] ARCHAMBEA SHAQ Wagner PATIENT Selected Encounter This section includes the information on record at [place] for the Encounter. Date/Time Encounter Type Encounter Description Reason Pro vider Source Oct 29, 2023 12:00 AM Outpatient Encounter COMMUNITY CARE CONSULT IHE Encounter Template Text not used by VA Plan of Treatment: Future Appointments (+ 6 months) and Future Tests (+/- 45 days) The Plan of Treatment section includes future care activities for the patient from all [place] treatmentfacilities. This section includes future appointments and future orders which are active, pending or scheduled. Future Appointments This section includes appointments that were scheduled to occur 6 months from the date of the Encounter, up to a maximum of 20 appointments. The data comes from all [place] treatment facilities. Appointment Date/Time Appointment Type Appointme nt Facility Name Nov 19, 2023 08:30 AM AMBULATORY - MEDICINE [place] [facility] [place] [facility] Nov 28, 2023 07:30 AM AMBULATORY - REHAB MEDICIN E [place] [facility] [place] [facility] Dec 23, 2023 07:30 AM AMBULATORY - MEDICINE [place] [facility] [facility] Dec 23, 2023 03:15 PM AMBULATORY - MEDICINE [facility] Jan 28, 2024 08:00 AM AMBULATORY - MEDICINE [place] [facility] [place] [facility] Jan 30, 2024 07:30 AM AMBULATORY - MEDICINE [place] [facility] [place] [facility] Mar 06, 2024 08:45 AM AMBULATORY - MEDICINE [place] [facility] [place] [facility] Mar 11, 2024 08:30 AM AMBULATORY - MEDICINE [facility] Mar 16, 2024 08:30 AM AMBULATORY - MEDICINE [place] [facility] [place] [place] [facility] Apr 07, 2024 10:00 AM AMBULATORY - MEDICINE [place] [facility] [facility] Apr 20, 2024 08:30 AM AMBULATORY - MEDICINE [facility] Apr 28, 2024 11:00 AM AMBULATORY - MEDICINE [place] [facility] [place] [place] [facility] Social History: Smoking Status (Most current) and Tobacco Use (All prior to encounter date) This section includes the most current, and the historical, smoking and tobacco- related health factors from the [place] facility where the Encounter took place. Current Smoking Status This section includes the most current smoking, or tobacco-related health factor, from the [place] facility where the Encounter took place. Date/Time Current Smoking Status Comment Lor gonzalez Jul 04, 2023 09:00 AM VA-TOBACCO FOR[facility] Tobacco Use History This section includes a history of the smoking, or tobacco-related health factors, that were collected on or before the date of the Encounter. The data comes from the [place] facility where the Encounter took place. Date/Time Smoking Status/Tobacco Use Comment F acility Jul 04, 2023 09:00 AM VA-TOBACCO QUIT 15 YRS OR MORE [place] [facility] [place] [facility] Mar 14, 2022 03:02 PM VA-TOBACCO FORMER USER [place] [facility] [facility] Mar 14, 2022 03:02 PM VA-TOBACCO QUIT 15 YRS OR MORE [place] [facility] [place] [facility] Feb 08, 2021 09:00 AM VA-TOBACCO FORMER USER [place] [facility] [place] [facility] Feb 08, 2021 09:00 AM VA-TOBACCO QUIT 15 YRS OR MORE [place] [facility] [place] [facility] October 09, 2019 01:12 PM VA-TOBACCO FORMER USER [place] [facility] October 09, 2019 01:12 PM VA-TOBACCO QUIT 5 TO < 15 YRS [facility] Advance Directives: All historical and current Section Date Range: From patient's date of to the date document was created. This section includes ALL of a patient's completed or amended [place] Advance and Rescinded Directives. The entries below indicate that a directive exists for the patient, but an actual copy is not included with this document. The data comes from all [place] facilities. Date Advance Directives Provider Source Feb 21, 2021 ADVANCE DIRECTIVE BEL ESCALANTE [facility] Radiology Reports: +/- 30 days of [...] the Encounter. The data comes from all [place] treatment facilities. Date/Time Radiology Report Provider Source October 02, 2023 08:18 AM FLUOROSCOPIC NITIN NCE FOR NEEDLE PLACEMENT: ARCHAMBEAU,SHAQ A [id number] -1950 M Exm Date: OCTOBER 02, 2023@08:18 Req Phys: BERNABE PRIETO Pat Loc: CWM/NO/MED REHAB/SPINE INJ (Re Img Loc: [facility] 1 Service: Unknown [facility] , (Case [id number] COMPLETE) FLUOROSCOPIC GUIDANCE FOR NEEDLE (RAD Detailed) CPT:39499 Proc Modifiers : LEFT Reason for Study: SI joint injection Clinical History: Report Status: Verified Date Reported: OCTOBER 02, 2023 Date Verified: OCTOBER 02, 2023 Home Health Billing Specialist E-Sig:/ES/LOU VICTORIA JR Report: Study: Pain injection [...] Primary Interpreting Staff: LOU VICTORIA JR, Radiologist (Home Health Billing Specialist) /LOU WASHINGTON JR [facility] Encounter Notes: All associated encounter notes This section contains the clinical notes associated to the Encounter. Date/Time Encounter Note(s) Provider Source Oct 29, 2023 12:00 AM NONVA CONSULT: LOCAL TITLE: COMMUNITY CARE-CONSULT RESULT NOTE STANDARD TITLE: NONVA CONSULT DATE OF NOTE: OCT 29, 2023 ENTRY DATE: NOV 11, 2023@10:24:45 AUTHOR: FRANK SWANSON EXP COSIGNER: URGENCY: STATUS: COMPLETED VistA Imaging - Scanned Document SCANNED DOCUMENT SIGNATURE NOT REQUIRED Electronically Filed: 11/11/2023 by: FRANK VELARDE [facility]
--- OUTSIDE RECORDS SUMMARY | 2024-04-28 11:00 | XMS_ITS | Encounter Summary ---
Author Name [facility] [facility] [place] Address [address] [place] [id number] Care Team Providers Care Scientific Systems Analyst Name Role Phone NEHEMIAH CUEVAS Primary [...] Name Patient's Relationship to Policy Orellana ANA [facility] Aug 11, 2014 [id number] LAURIESHAQ CAST PATIENT ANTHEM BCBS [facility] MEDICARE SUPPLEMEN ARTEMIO [facility] Aug 11, 2014 [id number] ALEJANDROSHAQ COATES [place] SUPPLEMEN ARTEMIO MEDEX 2 Aug 11, 2014 [id number] [phone] ALEJANDROSHAQ COATES [place] SUPPLEMEN ARTEMIO MEDEX 2 Aug 11, 2014 [id number] DHAVAL SHAQ Wagner [place] SUPPLE[place] ARTEMIO MEDEX 2 Aug 11, 2014 [id number] [phone] ALEJANDROSHAQ COATES PATIENT [place] MEDICARE SUPPLEMEN [facility] [place] [place] [facility] Aug 11, 2014 [id number] [phone] SHAQ WONG PATIENT USMANA MCR (WNR) MEDICARE ADVANTAGE HUMAN A INSUR [place] [facility] Jan 11, 2022 [id number] [phone] LAURIEEA SHAQ Wagner PATIENT USMANA MCR (WNR) MEDICARE ADVANTAGE [facility] (WNR) Jan 11, 2022 [id number] [phone] ARCHOCTAVIOEA SHAQ Wagner PATIENT MEDICARE (WNR) MEDICARE (M) PART A Dec 11, 2014 PART A [id number] ARCHAMBEA SHAQ Wagner PATIENT MEDICARE (WNR) MEDICARE (M) PART B Aug 11, 2014 PART B [id number] ARCHAMBEA SHAQ Wagner PATIENT MEDICARE (WNR) MEDICARE (M) PART A Aug 11, 2014 PART A [id number] [phone] ARCHOCTAVIOEA SHAQ Wagner PATIENT MEDICARE (WNR) MEDICARE (M) PART B Aug 11, 2014 PART B [id number] ARCHAMBEA SHAQ Wagner PATIENT MEDICARE (WNR) MEDICARE (M) PART A Aug 11, 2014 PART A [id number] ARCHAMBEA SHAQ Wagner PATIENT MEDICARE (WNR) MEDICARE (M) PART B Aug 11, 2014 PART B [id number] ARCHOCTAVIOEA SHAQ Wagner PATIENT MEDICARE (WNR) MEDICARE (M) PART B Aug 11, 2014 PART B [id number] ARCHAMBEA SHAQ Wagner PATIENT MEDICARE (WNR) MEDICARE (M) PART A Aug 11, 2014 PART A [id number] ARCHOCTAVIOEA SHAQ Wagner [facility] (WNR) MEDICARE ADVANTAGE [facility] (WNR) May 13, 2020 [id number] [phone] ARCHOCTAVIOEA SHAQ Wagner PATIENT Selected Encounter This section includes the information on record at [place] for the Encounter. Date/Time Encounter Type Encounter Description Reason Provider Source October 08, 2023 11:00 AM OFFICE O/P EST SF 10 MIN PRIMARY CARE/MEDICINE ICD-10-CM I48.91 Unspecified atrial fibrillation NEHEMIAH DAVIES Encounter Template Text not used by [place] Assessments - Encounter Diagnoses This section includes the primary and secondary diagnoses documented for the Encounter. 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 This section includes future appointments and future orders which are active, pending or scheduled. Future Appointments This section includes appointments that were scheduled to occur 6 months from the date of the Encounter, up to a maximum of 20 appointments. The data comes from all [place] treatment facilities. Appointment Date/Time Appointment Type Appointme nt Facility Name October 09, 2023 08:30 AM AMBULATORY [place] MEDICINE [place] [facility] Oct 23, 2023 08:30 AM AMBULATORY - MEDICINE [facility] Nov 19, 2023 08:30 AM AMBULATORY - MEDICINE [place] [facility] Nov 28, 2023 07:30 AM AMBULATORY - REHAB [facility]ICIN [facility] Dec 23, 2023 07:30 AM AMBULATORY - MEDICINE [place] [facility] Dec 23, 2023 03:15 PM AMBULATORY - MEDICINE [facility] Jan 28, 2024 08:00 AM AMBULATORY - MEDICINE [place] [facility] Jan 30, 2024 07:30 AM AMBULATORY - MEDICINE [place] [facility] Mar 06, 2024 08:45 AM AMBULATORY - MEDICINE [place] [facility] Mar 11, 2024 08:30 AM AMBULATORY - MEDICINE [facility] Mar 16, 2024 08:30 AM AMBULATORY - MEDICINE [place] [facility] Apr 07, 2024 10:00 AM AMBULATORY - MEDICINE [place] [facility] Vital Signs: All taken on the encounter date This section contains inpatient and outpatient Vital Signs collected on the date of the Encounter. Date/Time Temperature Pulse Blood Pressure Respiratory Rate SP02 Pain Height Weight Body Mass Index Source October 08, 2023 11:04 AM 97.8 56 135/69 99 [facility] Social History: Smoking Status (Most current) [...] Lor gonzalez Oct 31, 2018 11:38 AM [place]-TOBACCO QUIT 15 YRS OR MORE [facility] Tobacco Use History This section includes a history of the smoking, or tobacco-related health factors, that were collected on or before the date of the Encounter. The data comes from the [place] facility where the Encounter took place. Date/Time Smoking Status/Tobacco Use Comment Joselyn blas Oct 31, 2018 11:38 AM [place]-TOBACCO QUIT 15 YRS OR MORE [facility] Jul 12, 2017 08:51 AM QUIT TOBACCO USE > 7 YEARS AGO [facility] Mar 30, 2016 08:29 AM QUIT TOBACCO USE > 7 YEARS AGO [facility] Mar 04, 2015 10:57 AM QUIT TOBACCO USE > 7 YEARS AGO [facility] Advance Directives: All historical and current Section Date Range: From patient's date of to the date document was created. This section includes ALL of a patient's completed or amended [place] Advance and Rescinded Directives. The entries below indicate that a directive exists for the patient, but an actual copy is not included with this document. The data comes from all [facility]. Date Advance Directives Provider Source Feb 21, 2021 ADVANCE DIRECTIVE BEL ESCALANTE [facility] Radiology Reports: +/- 30 days of [...] NITIN NCE FOR NEEDLE PLACEMENT: SHAQ GREGORIO [id number] -[id number] M Exm Date: OCTOBER 02, 2023@08:18 Req Phys: BERNABE PRIETO THI Pat Loc: [facility]/NO/MED REHAB/SPINE INJ (Re Img Loc: [facility]/BUILDING 1 Service: Unknown [facility] , (Case [id number] COMPLETE) FLUOROSCOPIC GUIDANCE FOR NEEDLE (RAD Detailed) CPT:27034 Proc Modifiers : LEFT Reason for Study: SI joint injection Clinical History: Report Status: Verified Date Reported: OCTOBER 02, 2023 Date Verified: OCTOBER 02, 2023 Hunter Trapper E-Sig:/ES/LOU VICTORIA JR Report: Study: Pain injection [...] Primary Interpreting Staff: LOU VICTORIA JR, Radiologist (Hunter Trapper) /LOU WASHINGTON JR [facility] Encounter Notes: All associated encounter notes This section contains the clinical notes associated to the Encounter. Date/Time Encounter Note(s) Provider Source Nov 22, 2023 03:48 PM PAIN MEDICATION MG T NOTE: LOCAL TITLE: OPIOID/CONTROLLED SUBSTANCE NOTE STANDARD TITLE: PAIN MEDICATION MGT NOTE DATE OF NOTE: NOV 22, 2023@15:48 ENTRY DATE: NOV 22, 2023@15:48:25 AUTHOR: JOHN AL EXP COSIGNER: URGENCY: STATUS: COMPLETED OPIOID/CONTROLLED SUBSTANCE NOTE Controlled Substance Renewal Request REQUESTED MEDICATIONS: OXYCODONE 5MG/APAP 325MG TAB OXYCODONE HCL 5MG/APAP 325MG TAB TAKE 1 TABLET BY MOUTH THREE TIMES DAILY NEEDED NEXT FILL 11/25/23 Quantity: 84 Refills: 0 Indication: FOR PAIN MAIL TO PATIENT Last Filled: 10/28/23 Refills Remainin A valid consent for Long-Term Opioid therapy [...] standard clinical care and in accordance with [facility] policy. 12/07/22 14:07 Ramsey Patel PDMP [place] [place] 01/07/23 08:26 Jeff-Lisy,Ognvetok PDMP [facility] [place] 01/07/23 08:27 Nadazausten-Lisy,Ognjenk PDMP [facility] [place] 02/05/23 13:11 Ramsey Patel PDMP [facility] [place] 03/06/23 13:07 Didier Downs PDMP [facility] [place] 03/08/23 09:53 Nadazdin-Boskovic,Ognjenk PDMP [facility] [place] 04/01/23 08:33 Amy Pittman PDMP [facility] [place] 04/01/23 08:35 Amy Pittman PDMP [facility] [place] 05/09/23 12:16 Zheng Bardales PDMP [facility] [place] 05/24/23 10:07 Ravinder Bunn LPN PDMP [facility] [place] 05/29/23 15:39 Nadazdin-Boskovic,Ognjenk PDMP [facility] [place] 06/30/23 09:50 Nadazdin-Boslilo,Ognjenk PDMP [facility] [place] 07/29/23 09:13 Nadazdin-Lisy,Ognjenk PDMP [facility] [place] 08/26/23 15:57 Ramsey Patel PDMP [facility] [place] 09/24/23 15:22 Ramsey Patel PDMP [facility] [place] 10/22/23 13:59 Ramsey Patel [facility] [place] 11/22/23 15:46 John Al [facility] [place] Urine Drug Screen: A urine drug screen [...] D Last release date: 08/16/2021@16:29 Days supply: 1 /robe/ JOHN AL RN REGISTERED NURSE Signed: 11/22/2023 15:49 Receipt Acknowledged By: 11/22/2023 16:18 /robe/ NEHEMIAH CUEVAS MD PHYSICIAN JOHN AL Nov 22, 2023 03:47 PM ACCOUNTING OF DISC LOSURES NOTE: LOCAL TITLE: STATE PRESCRIPTION DRUG MONITORING PROGRAM STANDARD TITLE: ACCOUNTING OF DISCLOSURES NOTE DATE OF NOTE: NOV 22, 2023@15:47:22 ENTRY DATE: NOV 22, 2023@15:47:22 AUTHOR: JOHN AL EXP COSIGNER: NEHEMIAH CUEVAS URGENCY: STATUS: COMPLETED This PDMP query was submitted by John Al on behalf of Nehemiah Cuevas The clinical justification for this PDMP query is to review controlled substances prescribed outside of the [facility], and any additional information that may become available, as an important component of standard clinical care, and in accordance with [facility] policy. Patient information was shared with the PDMP [facility] [place]. The VA prescriber, for which I am a delegate, will be alerted of these PDMP findings through co-signature of this progress note. No prescription(s) for controlled substances outside the VA were found in the last 90 days. /reba AL RN REGISTERED NURSE Signed: 11/22/2023 15:47 /reba CUEVAS MD PHYSICIAN Cosigned: 11/22/2023 16:17 JOHN AL Oct 22, 2023 02:00 PM ACCOUNTING OF DISC LOSURES NOTE: LOCAL TITLE: STATE PRESCRIPTION DRUG MONITORING PROGRAM STANDARD TITLE: ACCOUNTING OF DISCLOSURES NOTE DATE OF NOTE: OCT 22, 2023@14:00:35 ENTRY DATE: OCT 22, 2023@14:00:35 AUTHOR: RAMSEY PATEL EXP COSIGNER: NEHEMIAH CUEVAS URGENCY: STATUS: COMPLETED This PDMP query was submitted by Ramsey Patel on behalf of NadNehemiah Mcfarland The clinical justification for this PDMP query is to review controlled substances prescribed outside of the VA, and any additional information that may become available, as an important component of standard clinical care, and in accordance with [facility] policy. Patient information was shared with the PDMP [place]. The VA prescriber, for which I am a delegate, will be alerted of these PDMP findings through co-signature of this progress note. No prescription(s) for controlled substances outside the VA were found in the last 90 days. /robe/ RAMSEY PATEL RN REGISTERED NURSE Signed: 10/22/2023 14:00 /reba CUEVAS MD PHYSICIAN Cosigned: 10/23/2023 08:56 RAMSEY PATEL Oct 22, 2023 01:59 PM MEDICATION MGT NOT E: LOCAL TITLE: OUTPATIENT MEDICATION REQUEST STANDARD TITLE: MEDICATION MGT NOTE DATE OF NOTE: OCT 22, 2023@13:59 ENTRY DATE: OCT 22, 2023@13:59:05 AUTHOR: RAMSEY PATEL EXP COSIGNER: URGENCY: STATUS: COMPLETED Medication Request Date of Request: Oct OXYCODONE 5MG/APAP 325MG TAB OXYCODONE HCL 5MG/APAP 325MG TAB TAKE 1 TABLET BY MOUTH THREE TIMES DAILY NEEDED FOR PAIN NEXT FILL 10/25/23 Quantity: 84 Refills: 0 Indication: FOR PAIN Requests for MAIL /reba PATEL RN REGISTERED NURSE Signed: 10/22/2023 13:59 Receipt Acknowledged By: 10/25/2023 12:40 /reba CUEVAS MD PHYSICIAN RAMSEY PATEL October 08, 2023 12:22 PM PHYSICIAN NOTE: LOCAL TITLE: NOTE STANDARD TITLE: PHYSICIAN NOTE DATE OF NOTE: OCTOBER 08, 2023@12:22 ENTRY DATE: OCTOBER 08, 2023@12:22:54 AUTHOR: Anali CUEVAS EXP COSIGNER: URGENCY: STATUS: COMPLETED NOTE Has ADDENDA 73 y/o M with PMH of HL, paroxismal A. fib , prostate cancer, lung nodule, Estes's esophagus, LBP, RLS Last visit 06/2023 PCP is [place] Other providers: -- Cardiology [place]- Dr. Segura [phone]- -- [facility] DR Kevin Bunch 2022 -->s/p foot surgery -- Rehab [facility]: Dr. Prieto s/p Left L5-S1 and S1 transforaminal epidural steroid injection q4m -- urologist: Dr. 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- reports CT yearly- annually last 10/2021 -- GI: Dr. Barraza/Dr. Lawson- [facility] [phone] -- optometry: [facility] -- derm 10/02/18 w DX: [place], [place], Garcias angiomas RTC PRN Recent falls (x)none pt accompanied by his reports feeling well visit today scheduled for L foot pain consult for [facility] has already yogesh placed by [facility] pt has regular visit with ca scheduled for 12/2023 will complete blood work prior visit #paroxismal atrial fibrillation Dx 05/2023 apixaban 5mg BID. denies alcohol use tolerates medications well no sx of bleeding denies any CP, palpitations, dizziness, SOB since hospital discharge evaluated by community care cardiology [facility] 08/2023 No clear significant ischemia although suboptimal study Gated LVEF is more than 50% Stress EKG is positive for ischemia BB decreased to 12.5mg BID for bradycardia - refilled next cardio f/u 11/2023 #h/o prostate cancer seen by Dr So 10/2022, PSA 0.3 f/w urology annually Denies any new urinary symptoms, no hematuria, Denies new bone pain, weight loss, night sweats urology f/u scheduled for 10/2023 PAST MEDICAL HISTORY: -- paroxismal Afib Dx [...] accident and extensive thoracic/abd surgery in the -- left TKR -- rt knee arthroscopic synvisc -- 2 prostate biopsies last one 10/28- completed radiation for prostate CA ~ 2014 -- SBO 2011 -- s/p right 2-5 hammertoe correction, second metatarsal osteotomy with possible plantar plate repair -[facility] 2022 ALLERGIES:CODEINE, NEURONTIN MEDICATIONS: Reconciled today APIXABAN 5MG TAB BID METOPROLOL TARTRATE 12.5MG BID DRONEDARONE 400MG BID PAROXYSMAL ATRIAL FIBRILLATION LOVASTATIN 20MG ONDANSETRON 4MG q8h prn - not frequently OXYCODONE HCL 5MG TAB NOT SA TID prn -LIDOCAINE 5% PATCH -DICLOFENAC NA 1% TOP GEL Non-VA ACETAMINOPHEN 1000MG TID - -OMEPRAZOLE 40MG ROPINIROLE HCL 0.25MG FLUTICASONE PROP 50MCG 120D NASAL KETOROLAC TROMETHAMINE 0.5% OPH SOLN LATANOPROST 0.005% OPH 1 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 NUTRITION SUPL ENSURE PLUS/VANILLA LIQ DRINK 1 CAN TWICE DAILY ROS: weight 146s lbs stable Constitutional: no fever/no chills, no ns Eyes: improved after cataract surgery Ears/Nose/Throat: no hearing change Respiratory: no cough/wheezing/SOB Cardiovascular: no CP /palpitations/ le edema Gastrointestinal: no abdominal pain/bloody/black stools :no dysuria/hematuria/trouble voiding MSK: chronic back/neck pain +-stable Neuro: no dizziness/H/A Skin: no pruritus/rash ambulates with a cane, no falls PHYSICAL EXAM: Vital Signs: Blood Pressure: 135/69 (10/08/2023 11:04) 124/52 (07/04/2023 08:49) 131/64 (11/08/2022 09:07) 146/68 (03/15/2022 09:10) 135/80 (08/01/2021 09:37) 145/67 (08/01/2021 09:02)-->repeat 135/80 130/69 (02/21/2021 09:21) Pulse: 56 (10/08/2023 11:04) Respiration: 18 (10/02/2023 08:01) Temperature: 97.8 F [36.6 C] (10/08/2023 11:04) Patient Weight: BMI 21.5 141 lb [63.96 kg] (10/02/2023 08:01) 146.6 lb [66.50 kg] (07/04/2023 08:49) 138 lb [62.60 kg] (11/08/2022 09:07) 130.8 lb [59.33 kg] (03/15/2022 09:10) 132.2 lb [59.96 kg] (08/01/2021 09:02) 134 lb [60.9 kg] (02/21/2021 09:21) Gen: pleasant, engaged, NAD LABORATORY: 06/2023 WBC: 8.96 HGB: 14.0 HCT: 42.4 MCV: [...] D TOTAL: 48 -10/2022- U/A negative ASSESSMENT/PLAN: 73 y/o M with PMH of HL, paroxismal A. fib , prostate cancer, lung nodule, Estes's esophagus, LBP, RLS #Paroxysmal atrial fibrillation -Dx 2023-patient asymptomatic, ventricular rate controlled on metoprolol, dronedarone Tolerating apixaban well, denies any signs of bleeding -c/w APIXABAN 5MG TAB BID -c/w METOPROLOL TARTRATE 12.5MG BID -c/w DRONEDARONE 400MG BID -f/w non-[place] cardiology #Adenocarcinoma of prostate:completed radiation/ADT (1305-1982) 01/2016 CT a/p, bone scan - no mets, thickened right bladder base (Negative cystoscopy) 2017 TRUS-benign Bx (PSA 0.69) -f/w non [place] urology annually PSA indefinitely, last PSA 0.34 (10/2022) next urology f/u scheduled for 10/2023 Healthcare maintenance: --Lipids: LDl 78 (06/2023) --Diabetes: A1c 5 (10/2022) --Colon CA (50-75): due 01/2031 diverticulosis --Lung CA: f/w oncology stable lung nodule [address] chest with contrast In 2020 showed stable subcentimeter pulmonary nodules. --PSA PSA 0.34 (10/2022) --AAA (smoker/65): 2017 negative --Influenza (yrly): 2022 --COVID-19 (PFIZER) x3 --PCV13 2019 --PCV23: 2017 --HZV (>60yrs, x1): 2015 --RZV (>50yrs, x1): --TDAP: 2014 --Hep C screen: --HIV screen: --DEXA: --Advanced Directives: completed address at next visit : oncology/urology/cardiology notes Return to clinic to see me as scheduled and PRN. Virtual ( ), F2F ( x ) (x )labs ordered prior to f/u (x )request records from outside providers please obtain notes prior to visit in december (not now) -- oncologist: Dr Corina Phoenix, Left lung nodule: [facility]- seen- annually please obtain last note prior to next visit -- urology and cardiology notes prior to next visit Medication Reconciliation: Outpatient: Has the patient been taking medications as documented in the EMLR? No: Discrepencies were identified. See below. Essential Medication List for Review used to complete this medication reconciliation. INCLUDED IN THIS LIST: Alphabetical list of active outpatient prescriptions dispensed from this [facility] (local) and dispensed from another [place] or [facility] facility (remote) as well as inpatient orders (local, pending and active), local clinic medications, locally documented non-VA medications, and local prescriptions that have or been discontinued in the past 90 days. - Discrepancies were identified, addressed, and discussed with the patient/caregiver at this encounter. Discrepancies: chart updated - All changes in medications, including all non-VA/Herbal/OTC medications were entered into CPRS. - If there were any medications the patient should no longer take, they were discontinued. - The patient/caregiver was instructed to update this list, discard old lists, and take this list to the next appointment, whether with a VA or non-VA provider. /robe/ NEHEMIAH CUEVAS MD PHYSICIAN Signed: 10/08/2023 12:32 Receipt Acknowledged By: 10/08/2023 12:38 /robe/ MONICA LINDQUIST 10/31/2023 ADDENDUM STATUS: COMPLETED Cardiology and Urology Notes received /robe/ Amy Pittman RN Registered Nurse (RN) Signed: 10/31/2023 10:33 01/05/2024 ADDENDUM STATUS: COMPLETED #PFT 12/2023 Abnormal SPIROMETRY: Normal FVC 3.35 L (102%) After bronchodilator there is significant change in FVC (to 4.16 L, 24% increase) Mildly reduced FEV1 1.62 L (64%) After bronchodilator there is no significant change in FEV1 (3% increase to 1.71 L) Reduced FEV1/FVC LUNG VOLUMES: Normal TLC Normal FRC Increased RV Increased RV/TLC DIFFUSION: Normal diffusion 18.55 ml/min/mmHg (84%) INTERPRETATION: Mild obstructive ventilatory defect Increased RV/TLC and RV consistent with gas trapping Normal diffusion There is no significant response to bronchodilator. /robe/ NEHEMIAH CUEVAS MD PHYSICIAN Signed: 01/05/2024 02:21 01/06/2024 ADDENDUM STATUS: COMPLETED HGB A1C (WR): 4.9 GLUCOSE: 100 WBC: 6.84 HGB: 13.2 HCT: 40.1 MCV: 88.7 PLT: 249 PROSTATIC SP ANTIGEN: 0.26 TSH (Access): 0.57 UREA NITROGEN: 13 CREATININE-EGFR: 0.96 eGFR CKD-EPI 2020: 83 SODIUM: 136 POTASSIUM: 4.5 MAGNESIUM: 1.9 CHLORIDE: 102 CO2: 26 PROTEIN,TOTAL: 6.4 ALBUMIN: 4.0 ALKALINE PHOSPHATASE: 64 BILIRUBIN,TOT.: 0.5 SGOT: 17 SGPT: 19 CHOLESTEROL: 159 TRIGLYCERIDE: 76 LDL CHOL: 66 CHOL/HDL RATIO: 2.0 HDL: 78 H /es/ NEHEMIAH CUEVAS MD PHYSICIAN Signed: 01/06/2024 01:56 01/29/2024 ADDENDUM STATUS: COMPLETED [place]ovascular [place] [facility]. Per Notes: R06.02 -Shortness of breath Plan: Shortness of breath exertion, underlying pulmonary parenchymal disease can not be ruled out. Suggest PFTs, Further follow-up based on the PFT findings. Also could be related to chronotropic incompetence. Will discontinue metoprolol therapy as above. [facility] 3 [facility] for EKG In 1 year with me. Medications: Discontinued metoprolol tartrate 12.5 mg See Protocol PO BID 90 days 90 tabs 3RF Discontinued Reason: Doctor's Order Notes sent to [facility] to be scanned into pt chart. /reba AL RN REGISTERED NURSE Signed: 01/29/2024 11:28 01/29/2024 ADDENDUM STATUS: COMPLETED Correction: Service date for cardiovascular office note was 10/29/23 and NOT 12/29/23. /reba AL RN REGISTERED NURSE Signed: 01/29/2024 11:35 JOSE CUEVAS BIXBY September 24, 2023 03:22 PM ACCOUNTING OF DISC LOSURES NOTE: LOCAL TITLE: STATE PRESCRIPTION DRUG MONITORING PROGRAM STANDARD TITLE: ACCOUNTING OF DISCLOSURES NOTE DATE OF NOTE: SEPTEMBER 24, 2023@15:22:38 ENTRY DATE: SEPTEMBER 24, 2023@15:22:38 AUTHOR: RAMSEY PATEL EXP COSIGNER: NEHEMIAH CUEVAS URGENCY: STATUS: COMPLETED This PDMP query was submitted by Ramsey Patel on behalf of Nehemiah Cuevas. The clinical justification for this PDMP query is to review controlled substances prescribed outside of the VA, and any additional information that may become available, as an important component of standard clinical care, and in accordance with [facility] policy. Patient information was shared with the PDMP [facility] [place]. The VA prescriber, for which I am a delegate, will be alerted of these PDMP findings through co-signature of this progress note. No prescription(s) for controlled substances outside the VA were found in the last 90 days. /robe/ RAMSEY PATEL RN REGISTERED NURSE Signed: 09/24/2023 15:22 /robe/ NEHEMIAH CUEVAS MD PHYSICIAN Cosigned: 09/25/2023 08:49 RAMSEY PATEL September 24, 2023 03:21 PM MEDICATION MGT NOT E: LOCAL TITLE: OUTPATIENT MEDICATION REQUEST STANDARD TITLE: MEDICATION MGT NOTE DATE OF NOTE: SEPTEMBER 24, 2023@15:21 ENTRY DATE: SEPTEMBER 24, 2023@15:21:34 AUTHOR: RAMSEY PATEL EXP COSIGNER: URGENCY: STATUS: COMPLETED Medication Request Date of Request: September OXYCODONE 5MG/APAP 325MG TAB OXYCODONE HCL 5MG/APAP 325MG TAB TAKE 1 TABLET BY MOUTH THREE TIMES DAILY NEEDED FOR PAIN NEXT FILL 09/27/23 Quantity: 84 Refills: 0 Indication: FOR PAIN Requests for MAIL /es/ RAMSEY PATEL RN REGISTERED NURSE Signed: 09/24/2023 15:21 Receipt Acknowledged By: 09/25/2023 08:48 /es/ NEHEMIAH CUEVAS MD PHYSICIAN RAMSEY PATEL
--- OUTSIDE RECORDS SUMMARY | 2024-04-28 11:02 | XMS_ITS | Encounter Summary ---
Author Name [facility] Organization [facility] Address [address] [place] [id number] Care Team Providers Care Vulcanizer Rubber Plate Name Role Phone NEHEMIAH CUEVAS Primary Care [...] [facility] Aug 11, 2014 [id number] DHAVAL SHAQ Wagner PATIENT [facility] SUPPLEMEN [facility]EMIO [facility] Aug 11, 2014 [id number] DHAVAL SHAQ Wagner PATIENT [facility] MEDICARE SUPPLEMEN [facility] 2 Aug 11, 2014 [id number] DHAVAL SHAQ Wagner PATIENT [facility] MEDICARE SUPPLEMEN [facility] 2 Aug 11, 2014 [id number] DHAVAL SHAQ Wagner PATIENT [facility] MEDICARE SUPPLEMEN [facility] 2 Aug 11, 2014 [id number] ARCHAMBEA SHAQ Wagner PATIENT [employer] [place] [employer] MEDICARE SUPPLEMEN [facility] [facility] [facility] [place] [facility] Aug 11, 2014 [id number] LAURIEEA SHAQ Wagner PATIENT [employer]MANA [facility] (WNR) MEDICARE ADVANTAGE HUMAN A INSUR [facility] Jan 11, 2022 [id number] [phone] ARCHOCTAVIOEA SHAQ Wagner PATIENT [employer] [facility] (WNR) MEDICARE ADVANTAGE [facility] (WNR) Jan 11, 2022 [id number] [phone] ARCHAMBEA SHAQ Wagner PATIENT MEDICARE (WNR) MEDICARE (M) PART A Dec 11, 2014 PART A [id number] [phone] ARCHAMBEA SHAQ Wagner PATIENT MEDICARE (WNR) MEDICARE () PART A Aug 11, 2014 PART A [id number] ARCHAMBEA SHAQ Wagner PATIENT MEDICARE (WNR) MEDICARE () PART B Aug 11, 2014 PART B [id number] [phone] ARCHAMBEA SHAQ Wagner PATIENT MEDICARE (WNR) MEDICARE () PART A Aug 11, 2014 PART A [id number] ARCHAMBEA Bernard,SHAQ PATIENT MEDICARE (WNR) MEDICARE () PART B Aug 11, 2014 PART B [id number] ARCHAMBEA U,SHAQ PATIENT MEDICARE (WNR) MEDICARE () PART A Aug 11, 2014 PART A [id number] ARCHAMBEA U,SHAQ PATIENT MEDICARE (WNR) MEDICARE (M) PART B Aug 11, 2014 PART B [id number] ARCHAMBEA U,SHAQ PATIENT MEDICARE (WNR) MEDICARE (M) PART B Aug 11, 2014 PART B [id number] [phone] ARCHAMBEA SHAQ Wagner [facility] (WNR) MEDICARE ADVANTAGE [facility] (WNR) May 13, 2020 [id number] ARCHAMBEA SHAQ Wagner PATIENT Selected Encounter This section includes the information on record at ID for the Encounter. Date/Time Encounter Type Encounter Description Reason Provider Source Nov 19, 2023 01:28 PM FIT SPECTACLES MULTIFOCAL OPTOMETRY ICD-10-CM Z46.0 Encounter for fit/adjst of spectacles and contact lenses CRYSTAL MARKS Lililan Encounter Template Text not used by ID Assessments - Encounter Diagnoses This section includes the primary and secondary diagnoses documented for the Encounter. Date/Time Primary/Secondary Diagnosis Diagnosis Name Provider Source Nov 19, 2023 01:28 PM PRIMARY Encounter for fit/adjst of spectacles and contact lenses MARY JO DEWITT ID [facility] Plan of Treatment: Future Appointments (+ [...] Appointment Type Appointme nt Facility Name Nov 28, 2023 07:30 AM AMBULATORY - REHAB MEDICIN E ID [facility] Dec 23, 2023 07:30 AM AMBULATORY - MEDICINE ID C [facility] Dec 23, 2023 03:15 PM AMBULATORY - MEDICINE [facility] Jan 28, 2024 08:00 AM AMBULATORY - MEDICINE ID C [facility] Jan 30, 2024 07:30 AM AMBULATORY - MEDICINE ID C [facility] Mar 06, 2024 08:45 AM AMBULATORY - MEDICINE ID C [facility] Mar 11, 2024 08:30 AM AMBULATORY - MEDICINE [facility] Mar 16, 2024 08:30 AM AMBULATORY - MEDICINE ID C [facility] Apr 07, 2024 10:00 AM AMBULATORY - MEDICINE ID C [facility] Apr 20, 2024 08:30 AM AM[facility]UL[facility]ORY [facility]INE [facility] Apr 28, 2024 11:00 AM AMBULATORY - MEDICINE [facility] Social History: Smoking Status (Most current) [...] 04, 2023 09:00 AM [facility] Tobacco Use History This section includes a history of the smoking, or tobacco-related health factors, that were collected on or before the date of the Encounter. The data comes from the ID facility where the Encounter took place. Date/Time Smoking Status/Tobacco Use Comment Joselyn [email or web address] Jul 04, 2023 09:00 AM VA-TOBACCO QUIT 15 YRS OR MORE ID [facility] Mar 14, 2022 03:02 PM VA-TOBACCO FORMER USER ID [facility] Mar 14, 2022 03:02 PM VA-TOBACCO QUIT 15 YRS OR MORE ID [facility] Feb 08, 2021 09:00 AM VA-TOBACCO FORMER USER ID [facility] Feb 08, 2021 09:00 AM VA-TOBACCO QUIT 15 YRS OR MORE ID [facility] October 09, 2019 01:12 PM VA-TOBACCO FORMER USER ID [facility] October 09, 2019 01:12 PM VA-TOBACCO QUIT 5 TO < 15 YRS ID [facility] Advance Directives: All historical and current [...] 2021 ADVANCE DIRECTIVE BEL ESCALANTE [facility] Encounter Notes: All associated encounter notes This section contains the clinical notes associated to the Encounter. Date/Time Encounter Note(s) Provider Source Nov 19, 2023 01:28 PM OPTOMETRY NOTE: LOCAL TITLE: OPTOMETRY NOTE STANDARD TITLE: OPTOMETRY NOTE DATE OF NOTE: NOV 19, 2023@13:28 ENTRY DATE: NOV 19, 2023@13:29 AUTHOR: RAINA VERA EXP COSIGNER: URGENCY: STATUS: COMPLETED OPTOMETRY NOTE Has ADDENDA The quote provided below is for informational purposes only. Please verify prior to the creation of a purchase order. SHAQ GREGORIO [id number] RX INFORMATION OD 0.00 0.00 X Add:+2.50 Pzm:0.00 Dir: Prz2:0.00 Dir2: OS +1.50 -2.25 X90 Add:+2.50 Pzm:0.00 Dir: Prz2:0.00 Dir2: FITTING INFORMATION FPD: NPD: [place]:R:30.5 L:33.5 SEG HT:R:24 L:24 Tint:None Shade:None VA Billable Items FRAME: [address] [id number] Right Lens: POLY VA PROGRESSIVE PHOTOCHROMIC [place] 1.586 POLY Left Lens: POLY VA PROGRESSIVE PHOTOCHROMIC [place] 1.586 POLY /robe/ RAINA VERA Signed: 11/19/2023 13:29 Receipt Acknowledged By: 11/20/2023 10:04 /robe/ Frances Garcia [facility]er 11/20/2023 ADDENDUM STATUS: COMPLETED PDS junction maker fit 1 PAL eyeglasses on 11/19/2023. OPT HT entered consult(s) as requested for provider signature. /robe/ Mary Jo Dewitt LPN Licensed Practical Nurse Signed: 11/20/2023 10:01 RAINA VERA [facility]
--- OUTSIDE RECORDS SUMMARY | 2024-04-28 11:02 | XMS_ITS ---
Author Name [facility] [place] Organization [facility] [place] Address [address] [place] [address] Care Team Providers Care Air Grinder Name Role Phone NEHEMIAH CUEVAS Primary Care [...] ANA [facility] Aug 11, 2014 [id number] DHAVAL SHAQ Wagner PATIENT [facility]NA [facility] SUPPLEMEN [facility]EMIO [facility] Aug 11, 2014 [id number] [phone] DHAVAL SHAQ Wagner PATIENT [facility] MEDIC[facility] SUPPLEMEN ARTEMIO MEDEX 2 Aug 11, 2014 [id number] DHAVAL SHAQ Wagner PATIENT [facility] MEDICARE SUPPLEMEN [facility] 2 Aug 11, 2014 [id number] DHAVAL SHAQ Wagner PATIENT [facility] MEDICARE SUPPLEMEN ARTEMIO MEDEX 2 Aug 11, 2014 [id number] [phone] ARCHAMBE[place] SHAQ Wagner PATIENT [facility] [place] [facility] MEDICARE SUPPLEMEN [facility] [place] [facility] Aug 11, 2014 [id number] [phone] LAURIEEA SHAQ Wagner PATIENT [facility]MANA [facility] (WNR) MEDICARE ADVANTAGE HUMAN A INSUR [place] Jan 11, 2022 [id number] [phone] ARCHOCTAVIOEA SHAQ Wagner PATIENT [facility]MANA [facility] (WNR) MEDICARE ADVANTAGE [facility] (WNR) Jan 11, 2022 [id number] [phone] ARCHAMBEA USHAQ PATIENT MEDICARE (WNR) MEDICARE (M) PART A Dec 11, 2014 PART A [id number] ARCHAMBEA U,SHAQ PATIENT MEDICARE (WNR) MEDICARE (M) PART A Aug 11, 2014 PART A [id number] ARCHAMBEA U,SHAQ PATIENT MEDICARE (WNR) MEDICARE () PART B Aug 11, 2014 PART B [id number] [phone] ARCHAMBEA U,SHAQ PATIENT MEDICARE (WNR) MEDICARE () PART A Aug 11, 2014 PART A [id number] ARCHAMBEA U,SHAQ PATIENT MEDICARE (WNR) MEDICARE () PART B Aug 11, 2014 PART B [id number] ARCHAMBEA U,SHAQ PATIENT MEDICARE (WNR) MEDICARE () PART A Aug 11, 2014 PART A [id number] ARCHAMBEA U,SHAQ PATIENT MEDICARE (WNR) MEDICARE (M) PART B Aug 11, 2014 PART B [id number] [phone] ARCHAMBEA U,SHAQ PATIENT MEDICARE (WNR) MEDICARE (M) PART B Aug 11, 2014 PART B [id number] ARCHAMBEA SHAQ Wagner PATIENT [facility] (WNR) MEDICARE ADVANTAGE [facility] (WNR) May 13, 2020 [id number] ARCHAMBEA USHAQ PATIENT Selected Encounter This section includes the information on record at [place] for the Encounter. Date/Time Encounter Type Encounter Description Reason Provider Source Nov 19, 2023 08:30 AM COMPRE OPH EXAM EST PT 1/> OPTOMETRY ICD-10-CM H40.1111 Primary open-angle glaucoma, right eye, mild stage ,CRYSTAL Leon Lillian Encounter Template Text not used by [place] Assessments - Encounter Diagnoses This section includes the primary and secondary diagnoses documented for the Encounter. Date/Time Primary/Secondary Diagnosis Diagnosis Name Provider Source Nov 19, 2023 08:46 AM PRIMARY Primary open-angle glaucoma, right eye, mild stage ,CRYSTAL J [facility] [place] [facility] Nov 19, 2023 08:46 AM SECONDARY Presbyopia ,CRYSTAL Carolyn [facility] [place] [facility] Nov 19, 2023 08:46 AM SECONDARY Presence of intraocular lens VERONICA MARKSEY Carolyn [facility] [place] [facility] Nov 19, 2023 08:46 AM SECONDARY Primary open-angle glaucoma, left eye, moderate stage ,CRYSTAL Carolyn [facility] [place] [facility] Plan of Treatment: Future Appointments (+ 6 months) and Future Tests (+/- 45 days) The Plan of Treatment section includes future care activities for the patient from all [facility] This section includes future appointments [...] REHAB MEDICIN E [facility] [place] [facility] Dec 23, 2023 07:30 AM AMBULATORY - MEDICINE [facility] [place] [facility] Dec 23, 2023 03:15 PM AMBULATORY - MEDICINE [facility] Jan 28, 2024 08:00 AM AMBULATORY - MEDICINE [facility] [place] [facility] Jan 30, 2024 07:30 AM AMBULATORY - MEDICINE [facility] [place] [facility] Mar 06, 2024 08:45 AM AMBULATORY - MEDICINE [facility] [place] [facility] Mar 11, 2024 08:30 AM AMBULATORY - MEDICINE [facility] Mar 16, 2024 08:30 AM AMBULATORY - MEDICINE [facility] [place] [facility] Apr 07, 2024 10:00 AM AMBULATORY - MEDICINE [facility] [place] [facility] Apr 20, 2024 08:30 AM AMBULATORY - MEDICINE [facility] Apr 28, 2024 11:00 AM AMBULATORY - MEDICINE [facility] [place] [facility] Social History: Smoking Status (Most [...] 04, 2023 09:00 AM VA-TOBACCO FORMER USER [facility] [place] [facility] Tobacco Use History This section includes a history of the smoking, or tobacco-related health factors, that were collected on or before the date of the Encounter. The data comes from the AR facility where the Encounter took place. Date/Time Smoking Status/Tobacco Use Comment F acdaniel Jul 04, 2023 09:00 AM VA-TOBACCO QUIT 15 YRS OR MORE [facility] [place] [facility] Mar 14, 2022 03:02 PM VA-TOBACCO FORMER USER [facility] [place] [facility] Mar 14, 2022 03:02 PM VA-TOBACCO QUIT 15 YRS OR MORE [facility] [place] [facility] Feb 08, 2021 09:00 AM VA-TOBACCO FORMER USER [facility] [place] [facility] Feb 08, 2021 09:00 AM VA-TOBACCO QUIT 15 YRS OR MORE [facility] [place] [facility] October 09, 2019 01:12 PM VA-TOBACCO FORMER USER [facility] [place] [facility] October 09, 2019 01:12 PM VA-TOBACCO QUIT 5 TO < 15 YRS [facility] [place] [facility] Advance Directives: All historical and current Section Date Range: From patient's date of to the date document was created. This section includes ALL of a patient's completed or amended [place] Advance and Rescinded Directives. The entries below indicate that a directive exists for the patient, but an actual copy is not included with this document. The data comes from all [place] facilities. Date Advance Directives Provider Source Feb 21, 2021 ADVANCE DIRECTIVE BEL ESCALANTE FORMERLY [facility] Encounter Notes: All associated encounter notes This section contains the clinical notes associated to the Encounter. Date/Time Encounter Note(s) Provider Source Nov 19, 2023 07:44 AM OPTOMETRY NOTE: LOCAL TITLE: OPTOMETRY NOTE STANDARD TITLE: OPTOMETRY NOTE DATE OF NOTE: NOV 19, 2023@07:44 ENTRY DATE: NOV 19, 2023@07:44:35 AUTHOR: CRYSTAL MARKS EXP COSIGNER: URGENCY: STATUS: COMPLETED Eye Examination for: SHAQ GREGORIO, 73 year old WHITE MALE RASHAD: 4.25.23 Reason for Visit/CC: Patient here for CEE, lost to follow-up since August 2022 at which time 3 month follow-up requested as switched from Latanoprost QHS OS only to Latanoprost QHS OU. Reports excellent compliance with Latanoprost QHS OU. Denies changes in vision or other complaints. Current Ocular Meds: Latanoprost QHS OU OHx/HPI: 1. Mild POAG OD, Moderate POAG OS 2. Pseudophakia OU 3. RE, P OU (-) Pain: (-) IZAGUIRRE: (-) Diplopia: (-) Flashes: (-) Floaters: (-) Amaurosis Fugax/Tia's: (-) Eye Injury: (+) Eye Surgery: CE/PCIOL OU (-) TBI FOHx: (-) Glaucoma (-) ARMD (-) Blindness MHx: Code Description I48.91 AF - Atrial fibrillation ([facility] [id number]) Z79.01 Long-term current use of anticoagulant ([facility] [id number]) R63.4 Unintentional weight loss ([facility] 508646683) M47.27 Lumbosacral spondylosis with radiculopathy ([facility] 652601942) R69. Solitary nodule of lung ([facility] [id number]) R69. Shared care - hospice and GP ([facility] [id number]) R69. Screening for malignant neoplasm colon (ICD-10-CM R69.) K22.70 Monterroso's esophagus ([facility] 864158392) D07.5 Prostate cancer (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 [id number]) R69. Degeneration of intervertebral disc ([facility] [id number]) M54.51 LBP - Low back pain ([facility] 946464131) M25.511 Shoulder joint pain ([facility] 835712622) G25.81 Restless legs ([facility] [id number]) R69. Care by local physician ([facility] [id number]) E78.5 Hyperlipidemia ([facility] [id number]) R69. History of tobacco use ([facility] [id number]) SYSTEMIC MEDICATIONS/OCULAR MEDICATIONS: Active Outpatient Medications (including Supplies): Active Outpatient Medications Status 1) APIXABAN 5MG TAB TAKE ONE TABLET BY MOUTH EVERY 12 ACTIVE HOURS 2) DRONEDARONE 400MG TAB TAKE ONE TABLET BY MOUTH TWICE ACTIVE DAILY 3) LATANOPROST 0.005% OPH SOLN INSTILL 1 DROP INTO EACH ACTIVE EYE AT BEDTIME FOR WIDE-ANGLE GLAUCOMA 4) LIDOCAINE 5% PATCH APPLY 1 PATCH TOPICALLY ONCE DAILY ACTIVE FOR NERVE PAIN (LEAVE PATCH ON FOR 12 HOURS, THEN REMOVE PATCH) 5) LOVASTATIN 20MG TAB TAKE ONE TABLET BY MOUTH AT ACTIVE BEDTIME FOR CHOLESTEROL -- AVOID GRAPEFRUIT JUICE 6) METOPROLOL TARTRATE 25MG TAB TAKE ONE-HALF TABLET BY ACTIVE MOUTH TWICE DAILY FOR BLOOD PRESSURE/HEART 7) NUTRITION SUPL ENSURE PLUS/VANILLA LIQ DRINK 1 CAN BY ACTIVE MOUTH TWICE DAILY 8) OMEPRAZOLE 20MG EC CAP TAKE TWO CAPSULES BY MOUTH ACTIVE EVERY MORNING 30 MINUTES BEFORE BREAKFAST 9) ONDANSETRON HCL 4MG TAB TAKE ONE TABLET BY MOUTH ONCE ACTIVE DAILY NEEDED FOR VOMITING/NAUSEA 10) OXYCODONE HCL 5MG/APAP 325MG TAB TAKE 1 TABLET BY ACTIVE MOUTH THREE TIMES DAILY NEEDED NEXT FILL 11/25/23 Active Non-VA Medications Status 1) Non-VA ACETAMINOPHEN 500MG TAB 1000MG BY MOUTH THREE ACTIVE TIMES DAILY NEEDED 11 Total Medications ALLERGIES: CODEINE, NEURONTIN VITALS (most recent, as listed in the electronic record): B/P: 135/69 (10/08/2023 11:04) Pulse: 56 (10/08/2023 11:04) Temperature: 97.8 F [36.6 C] (10/08/2023 11:04) Weight: 141 lb [63.96 kg] (10/02/2023 08:01) Height: 68 in [172.7 cm] (02/21/2021 09:21) BMI: BMI: 21.5 PERTINENT LABS: HEMOGLOBIN A1C TREND Collection DT Spec HGBA1c 11/05/2022 07:32 BLOOD 5.0 09/15/2021 08:01 BLOOD 5.1 02/23/2021 07:27 BLOOD 5.0 12/08/2015 09:00 BLOOD 5.3 Current Rx with last BCVA: OD: plano 20/20 OS: +0.75-1.53x895 20/20 Add: +2.50 DVA ( )sc ( x )cc - [x]phoropter []specs []CL OD: 20/15-1 OS: 20/30-2 Entrance Testing: Pupil: PERRL (-)APD EOM: SAFE OU, (-)Pain/Diplopia CVF: FTFC OU Subjective Refraction: OD: plano 20/15-1 OS: +1.50-2.03b413 20/20 Add: +2.50 SLE: Lids/Lashes: dermatochalasis OU, MGD OU Conjunctiva: white and quiet bulbar conj OU quiet palpebral conj OU Corneas: clear OU Iris: flat and clear OU, (-)TID OU AC: D & Q OU Angles: 4x4 OU TAP @ 8:25am OD 12 mmHg OS 13 mmHg [x]Obrien []iCare []GAT Last IOP: OD: 14 OS: 14 Tmax: OD: 19 OS: 27 Previous Pachymetry: OD: 576 OS: 560 Percent Reduction in IOP: OD: 37% OS: 52% Dilating Drops: 1GTT 1 % Tropicamide OU & 1GTT 2.5% Phenylephrine OU (Pt. ed. on side effects, dilation warning given and verbal consent obtained) Patient advised not to drive if they feel they have any symptoms which could affect their ability to drive safely. Patient advised not to engage in any activities which could put themselves or others at risk if they feel they have any symptoms which could affect their ability to perform those activities safely. Dilated Fundus Exam: Vit: syneresis OU Lens: PCIOL OU (-)PXF OU C/D (Size and Rim Description) OD 0.60 pink and healthy, no focal notching OS 0.80 inferior thinning and notching, mild pallor (-)Drance heme OU PPole OD clear OS clear Macula OD flat and clear OS flat and clear A/V: normal caliber OU Periphery: flat and intact (-)holes, tears, detachments 360 OU Assessment/Plan: 1. Mild primary open-angle glaucoma OD with Moderate primary open-angle glaucoma OS currently on Latanoprost QHS OU with excellent compliance and appropriate reduction in IOP based on ONH appearance. No evidence of pigment dispersion or pseudoexfoliation OU. No known family history of glaucoma. No acute change in ONH appearance. Low index of suspicion for progression at present. -Pt ed re today's findings -Pt ed re glaucoma as well as the natural history of this diagnosis including prognosis. -Stress importance of compliance and persistency with medications -Stress importance of continued follow-up appointments -Continue Latanoprost QHS OU - repeated back the plan and education. -RTC 4 months for visual imaging and IOP check 2. Pseudophakia OU -Pt ed re today's findings and the importance of UV protection - repeated back the plan and education. -Monitor 3. Refractive Error and Presbyopia OU -Rx updated and ordered per pt request PALx1 -Monitor RTC 4 mos or earlier PRN (x)Appointment with coordinated visual imaging (x) HVF 24-2 (x) RNFL OCT Glasses adjusted/repaired in office: () Yes (x) No If yes, how many pairs: Education: Glaucoma: Patient was educated regarding glaucoma/glaucoma suspect as well as the natural history of this diagnosis including prognosis. Stress importance of compliance and persistency with glaucoma medication when prescribed, timely follow up as well as the role of ancillary testing. Exclusion criteria for ancillary testing include significantly reduced acuity, mental status changes affecting the patient's ability to attend to the test or other physical limitations that would prohibit the patient's ability to participate in testing. Medication Reconciliation: Outpatient: Has the patient been taking medications as documented in the EMLR? YES: The patient has been taking medications as documented in the EMLR. Essential Medication List for Review used to complete this medication reconciliation. INCLUDED IN THIS LIST: Alphabetical list of active outpatient prescriptions dispensed from this AR (local) and dispensed from another AR or [facility] facility (remote) as well as inpatient orders [...] whether with a VA or non-VA provider. Medication List: JLV Link Data on this list may not be complete. Please check JLV. Allergies/ADRs (Tool #5) FACILITY ALLERGY/ADR -------- [facility] NO KNOWN ALLERGIES [facility] [place] [facility] CODEINE [facility] [place] [facility] NEURONTIN Med. Reconciliation (Tool #1) INCLUDED IN THIS LIST: Alphabetical list of active outpatient prescriptions dispensed from this AR (local) and dispensed from another AR or [facility] facility (remote) as well as [...] the patient into personal health records (i.e. [employer]) are NOT included in this list. Non-VA medications documented outside this AR, remote inpatient orders (regardless of status) and [...] TABLET BY MOUTH EVERY 12 HOURS Rx# [id number] Last Released: 09/16/23 Qty/Days Supply: 180/90 Rx Expiration Date: 06/20/24 Refills Remainin OUTPT DRONEDARONE 400MG TAB (Status = ) TAKE ONE TABLET BY MOUTH TWICE DAILY FOR PAROXYSMAL ATRIAL FIBRILLATION Rx# [id number] Last Released: 06/20/23 Qty/Days Supply: 180/90 Rx Expiration Date: 09/16/23 Refills Remainin Indication: FOR PAROXYSMAL ATRIAL FIBRILLATION OUTPT DRONEDARONE 400MG TAB (Status = Active) TAKE ONE TABLET BY MOUTH TWICE DAILY Rx# [id number] Last Released: 09/19/23 Qty/Days Supply: 180/ Rx Expiration Date: 09/17/24 Refills Remainin OUTPT FLUTICASONE PROP 50MCG 120D NASAL INHL (Status = ) INSTILL 1 SPRAY INTO EACH NOSTRIL AT BEDTIME Rx# [id number] Last Released: 11/12/22 Qty/Days Supply: 06/11 Rx Expiration Date: 11/09/23 Refills Remainin Indication: FOR NASAL IRRITATION/INFLAMMATION OUTPT LATANOPROST 0.005% OPH SOLN (Status = Active) INSTILL 1 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 Rx# [id number] Last Released: 10/23/23 Qty/Days Supply: 7. Rx Expiration Date: 08/12/24 Refills Remainin Indication: FOR WIDE-ANGLE GLAUCOMA OUTPT LIDOCAINE 5% PATCH (Status = Discontinued) APPLY 1 PATCH TOPICALLY ONCE DAILY FOR NERVE PAIN (LEAVE PATCH ON FOR 12 HOURS, THEN REMOVE PATCH) Rx# [id number] Last Released: 06/08/23 Qty/Days Supply: Rx Expiration Date: 09/04/23 Refills Remainin Indication: FOR NERVE PAIN OUTPT LIDOCAINE 5% PATCH (Status = Active) APPLY 1 PATCH TOPICALLY ONCE DAILY FOR NERVE PAIN (LEAVE PATCH ON FOR 12 HOURS, THEN REMOVE PATCH) Rx# [id number] Last Released: 10/14/23 Qty/Days Supply: Rx Expiration Date: 10/11/24 Refills Remainin Indication: FOR NERVE PAIN OUTPT LOVASTATIN 20MG TAB (Status = Discontinued) TAKE ONE TABLET BY MOUTH AT BEDTIME FOR CHOLESTEROL -- AVOID GRAPEFRUIT JUICE Rx# [id number] Last Released: 07/13/23 Qty/Days Supply: 90 Rx Expiration Date: 10/10/23 Refills Remainin OUTPT LOVASTATIN 20MG TAB (Status = Active) TAKE ONE TABLET BY MOUTH AT BEDTIME FOR CHOLESTEROL -- AVOID GRAPEFRUIT JUICE Rx# [id number] Last Released: 10/14/23 Qty/Days Supply: 90 Rx Expiration Date: 10/11/24 Refills Remainin OUTPT METOPROLOL TARTRATE 25MG TAB (Status = ) TAKE ONE TABLET BY MOUTH TWICE DAILY FOR BLOOD PRESSURE/HEART Rx# [id number] Last Released: 06/22/23 Qty/Days Supply: 180 Rx Expiration Date: 09/16/23 Refills Remainin OUTPT METOPROLOL TARTRATE 25MG TAB (Status = Active) TAKE ONE-HALF TABLET BY MOUTH TWICE DAILY FOR BLOOD PRESSURE/HEART Rx# [id number] Last Released: 10/10/23 Qty/Days Supply: 90 Rx Expiration Date: 10/08/24 Refills Remainin Indication: FOR HIGH BLOOD PRESSURE OUTPT NUTRITION SUPL ENSURE PLUS/VANILLA LIQ (Status = Active) DRINK 1 CAN BY MOUTH TWICE DAILY Rx# [id number] Last Released: 10/12/23 Qty/Days Supply: Rx Expiration Date: 04/29/24 Refills Remainin OUTPT OMEPRAZOLE 20MG EC CAP (Status = Discontinued) TAKE TWO CAPSULES BY MOUTH EVERY MORNING 30 MINUTES BEFORE BREAKFAST Rx# [id number] Last Released: 07/13/23 Qty/Days Supply: 180 Rx Expiration Date: 09/22/23 Refills Remainin OUTPT OMEPRAZOLE 20MG EC CAP (Status = Active) TAKE TWO CAPSULES BY MOUTH EVERY MORNING 30 MINUTES BEFORE BREAKFAST Rx# [id number] Last Released: 10/14/23 Qty/Days Supply: 180 Rx Expiration Date: 10/11/24 Refills Remainin OUTPT ONDANSETRON HCL 4MG TAB (Status = Active) TAKE ONE TABLET BY MOUTH ONCE DAILY NEEDED FOR VOMITING/NAUSEA Rx# [id number] Last Released: 04/01/23 Qty/Days Supply: 90 Rx Expiration Date: 03/29/24 Refills Remainin OUTPT OXYCODONE HCL 5MG/APAP 325MG TAB (Status = Discontinued) TAKE 1 TABLET BY MOUTH THREE TIMES DAILY NEEDED FOR PAIN NEXT FILL 08/30/23 Rx# [id number] Last Released: 07/31/23 Qty/Days Supply: Rx Expiration Date: 08/28/23 Refills Remainin Indication: FOR PAIN OUTPT OXYCODONE HCL 5MG/APAP 325MG TAB (Status = Discontinued) TAKE 1 TABLET BY MOUTH THREE TIMES DAILY NEEDED FOR PAIN NEXT FILL 09/27/23 Rx# [id number] Last Released: 08/28/23 Qty/Days Supply: Rx Expiration Date: 09/26/23 Refills Remainin Indication: FOR PAIN OUTPT OXYCODONE HCL 5MG/APAP 325MG TAB (Status = ) TAKE 1 TABLET BY MOUTH THREE TIMES DAILY NEEDED FOR PAIN NEXT FILL 10/25/23 Rx# [id number] Last Released: 09/25/23 Qty/Days Supply: Rx Expiration Date: 10/25/23 Refills Remainin Indication: FOR PAIN OUTPT OXYCODONE HCL 5MG/APAP 325MG TAB (Status = Active) TAKE 1 TABLET BY MOUTH THREE TIMES DAILY NEEDED NEXT FILL 11/25/23 Rx# [id number] Last Released: 10/28/23 Qty/Days Supply: Rx Expiration Date: 11/22/23 Refills Remainin Indication: FOR PAIN OUTPT ROPINIROLE HCL 0.25MG TAB (Status = ) TAKE ONE TABLET BY MOUTH DAILY Rx# [id number] Last Released: 09/03/23 Qty/Days Supply: Rx Expiration Date: 11/09/23 Refills Remainin SUPPLIES PHARMACY TERMS AND POSSIBLE PATIENT ACTIONS INPT = AR inpatient order IV = AR intravenous medication OUTPT = AR outpatient prescription PHARMACY POSSIBLE PATIENT TERMS EXPLANATION ACTIONS -------- ----- ACTIVE A prescription that can be If you have refills, filled at the local VA pharmacy. you may request a refill of this prescription from your VA pharmacy. CLINIC A medication you received during If you have questions a visit to a VA clinic or about this medication emergency department. contact your VA healthcare team. DISCONTINUED A prescription your provider has Contact your VA stopped. It is no longer healthcare team if you available to be sent to you or need more of this picked up at the AR pharmacy medication. window. A prescription which is too old Contact your VA to fill. This does not refer to healthcare team if you the expiration date of the need more of this medication in the container. medication. NON-VA A medication that came from If this medication someplace other than a VA information is pharmacy. This may be a incorrect or out of prescription from either the VA date, please tell your or non VA providers that was VA healthcare team. filled outside the VA. Or, it may be an [id number] (OTC), herbal, dietary supplements or sample medication. ON HOLD An active prescription that will Contact your VA not be filled until pharmacy pharmacy when you need resolves the issue. more of this medication. PARKED An active prescription that will Contact your VA not be filled until the patient pharmacy when you need requests it. this medication. PENDING This prescription order has been If you have been sent to the pharmacy for review instructed to start and is not ready yet. this medication now, contact your VA pharmacy. SUSPENDED An active prescription that is Contact your VA not scheduled to be filled yet. pharmacy if you need You should receive it before this medication now. you run out. (x) Printed Medication Reconciliation List Offered and Declined by () Medication Reconciliation List Printed for [place] at Exam () Optometry HT Please Print and Mail Copy of Medication Reconciliation List () AMSA Please Print and Mail Copy of Medication Reconciliation List /es/ CRYSTAL MARKS OD OUTSIDE SALES PROFESSIONAL Signed: 11/19/2023 08:48 CRYSTAL MARKS [facility]
--- OUTSIDE RECORDS SUMMARY | 2024-04-28 11:02 | XMS_ITS | Encounter Summary ---
Author Name [place] Address [address] [place] [address] Care Team Providers Care Type Mapper Name Role Phone NEHEMIAH CUEVAS Primary Care [...] Name Patient's Relationship to Policy Orellana ANA [facility] Aug 11, 2014 [id number] [phone] DHAVAL SHAQ Wagner PATIENT ANA BCBS [facility] MEDICARE SUPPLEMEN ARTEMIO [facility] Aug 11, 2014 [id number] DHAVAL SHAQ [facility] SUPPLEMEN ARTEMIO MEDEX 2 Aug 11, 2014 [id number] DHAVAL SHAQ Wagner PATIENT [place] MED[place] SUPPLEMEN ARTEMIO MEDEX 2 Aug 11, 2014 [id number] DHAVAL SHAQ Wagner PATIENT [place] MEDICARE SUPPLEMEN ARTEMIO MEDEX 2 Aug 11, 2014 [id number] [phone] ARCHAMBEA SHAQ Wagner PATIENT [facility] BLUECARD MEDICARE SUPPLEMEN [facility] Aug 11, 2014 [id number] [phone] ARCHOCTAVIOEA SHAQ Wagner PATIENT HUMANA [facility] (WNR) MEDICARE ADVANTAGE HUMAN A INSUR [place] [facility] Jan 11, 2022 [id number] [phone] ARCHAMBEA SHAQ Wagner PATIENT USMANA MCR (WNR) MEDICARE ADVANTAGE [facility] (WNR) Jan 11, 2022 [id number] [phone] ARCHAMBEA U,SHAQ PATIENT MEDICARE (WNR) MEDICARE (M) PART A Dec 11, 2014 PART A [id number] [phone] ARCHAMBEA U,SHAQ PATIENT MEDICARE (WNR) MEDICARE (M) PART A Aug 11, 2014 PART A [id number] [phone] ARCHAMBEA U,SHAQ PATIENT MEDICARE (WNR) MEDICARE () PART B Aug 11, 2014 PART B [id number] ARCHAMBEA U,SHAQ PATIENT MEDICARE (WNR) MEDICARE () PART A Aug 11, 2014 PART A [id number] [phone] ARCHAMBEA U,SHAQ PATIENT MEDICARE (WNR) MEDICARE (M) PART B Aug 11, 2014 PART B [id number] ARCHAMBEA U,SHAQ PATIENT MEDICARE (WNR) MEDICARE () PART B Aug 11, 2014 PART B [id number] [phone] ARCHAMBEA U,SHAQ PATIENT MEDICARE (WNR) MEDICARE (M) PART A Aug 11, 2014 PART A [id number] ARCHAMBEA U,SHAQ PATIENT MEDICARE (WNR) MEDICARE (M) PART B Aug 11, 2014 PART B [id number] ARCHAMBEA U,SHAQ PATIENT [facility] (WNR) MEDICARE ADVANTAGE [facility] (WNR) May 13, 2020 [id number] ARCHAMBEA U,SHAQ PATIENT Selected Encounter This section includes the information on record at [place] for the Encounter. Date/Time Encounter Type Encounter Description Reason Pro vider Source Nov 22, 2023 03:20 PM Outpatient Encounter ADMIN PAT ACTIVTIES (KISHAN) IHE Encounter Template Text not used by [place] Plan of Treatment: Future Appointments (+ 6 months) and Future Tests (+/- 45 days) The Plan of Treatment section includes future care activities for the patient from all [place] treatmentfacritical access hospitalities. This section includes future appointments and future orders which are active, pending or scheduled. Future Appointments This section includes appointments that were scheduled to occur 6 months from the date of the Encounter, up to a maximum of 20 appointments. The data comes from all [place] treatment facilities. Appointment Date/Time Appointment Type Appointme nt Facility Name Nov 28, 2023 07:30 AM AMBULATORY - [facility] [place] [facility] Dec 23, 2023 07:30 AM AMBULATORY - MEDICINE [place] [facility] [place] [facility] Dec 23, 2023 03:15 PM AMBULATORY - MEDICINE [facility] Jan 28, 2024 08:00 AM AMBULATORY - MEDICINE [place] [facility] [place] [facility] Jan 30, 2024 07:30 AM AMBULATORY - MEDICINE [place] [facility] [place] [facility] Mar 06, 2024 08:45 AM AMBULATORY - MEDICINE [place] [facility] [place] [facility] Mar 11, 2024 08:30 AM AMBULATORY - MEDICINE [facility] Mar 16, 2024 08:30 AM AMBULATORY - MEDICINE [place] [facility] [place] [facility] Apr 07, 2024 10:00 AM AMBULATORY - MEDICINE [place] [facility] [place] [facility] Apr 20, 2024 08:30 AM AMBULATORY - MEDICINE [facility] Apr 28, 2024 11:00 AM [facility] Social History: Smoking Status (Most current) and Tobacco Use (All prior to encounter date) This section includes the most current, and the historical, smoking and tobacco- related health factors from the [place] facility where the Encounter took place. Current Smoking Status This section includes the most current smoking, or tobacco-related health factor, from the [place] facility where the Encounter took place. Date/Time Current Smoking Status Kristie gonzalez Jul 04, 2023 09:00 AM VA-TOBACCO FORMER USER [facility] Tobacco Use History This section includes a history of the smoking, or tobacco-related health factors, that were collected on or before the date of the Encounter. The data comes from the [place] facility where the Encounter took place. Date/Time Smoking Status/Tobacco Use Comment F acility Jul 04, 2023 09:00 AM VA-TOBACCO QUIT 15 YRS OR MORE [facility] Mar 14, 2022 03:02 PM [facility] Mar 14, 2022 03:02 PM VA-TOBACCO QUIT 15 YRS OR MORE [facility] Feb 08, 2021 09:00 AM [facility] Feb 08, 2021 09:00 AM VA-TOBACCO QUIT 15 YRS OR MORE [facility] October 09, 2019 01:12 PM [facility]ACCO [facility] October 09, 2019 01:12 PM VA-TOBACCO QUIT 5 TO < 15 YRS [facility] Advance Directives: All historical and current Section Date Range: From patient's date of to the date document was created. This section includes ALL of a patient's completed or amended [place] Advance and Rescinded Directives. The entries below indicate that a directive exists for the patient, but an actual copy is not included with this document. The data comes from all [place] facilities. Date Advance Directives Provider Source Feb 21, 2021 ADVANCE DIRECTIVE BEL ESCALANTE [facility] Encounter Notes: All associated encounter notes This section contains the clinical notes associated to the Encounter. Date/Time Encounter Note(s) Provider Source Nov 22, 2023 03:20 PM PHARMACY NOTE: LOCAL TITLE: PHARMACY CUSTOMER CARE MEDICATION RENEWAL STANDARD TITLE: PHARMACY NOTE DATE OF NOTE: NOV 22, 2023@15:20 ENTRY DATE: NOV 22, 2023@15:20:52 AUTHOR: DONALD DE OLIVEIRA COSIGNER: URGENCY: STATUS: COMPLETED Date: Nov Division: [facility] referred by Pharmacy Call Center for medication renewal: Controlled substance Medications requested: [id number] OXYCODONE HCL 5MG/APAP 325MG TAB Defer to primary care provider To be mailed . Please review and renew if appropriate. *This note was generated by [facility] Customer Care. If you have any questions or need assistance, do not contact this author. Please refer all questions to your local, on-site pharmacy departments. /robe/ DONALD DE OLIVEIRA CPhT Cheese Maker, MS/Pharmacy Customer Care Signed: 11/22/2023 15:21 Receipt Acknowledged By: 11/22/2023 16:18 /es/ NEHEMIAH CUEVAS MD PHYSICIAN 11/22/2023 15:51 /es/ CECILIO AL RN REGISTERED NURSE DONALD DE [facility]IRA [place] [facility]
--- OUTSIDE RECORDS SUMMARY | 2024-04-28 11:03 | XMS_ITS | Encounter Summary ---
Author Name [place] Address [address] [place] [address] Care Team Providers Care Bookbinder Chief Name Role Phone NEHEMIAH CUEVAS Primary Care [...] Name Patient's Relationship to Policy Orellana [facility]NA [facility] Aug 11, 2014 [id number] DHAVAL SHAQ Wagner PATIENT ANA BCBS [facility] MEDICARE SUPPLEMEN ARTEMIO [facility] Aug 11, 2014 [id number] [phone] [facility]AL [facility]AQ [facility] SUPPLEMEN ARTEMIO MEDEX 2 Aug 11, 2014 [id number] DHAVAL SHAQ Wagner PATIENT BCBS [place] MEDICARE SUPPLEMEN ARTEMIO MEDEX 2 Aug 11, 2014 [id number] DHAVAL SHAQ Wagner PATIENT [place]BS [place] MEDICARE SUPPLEMEN ARTEMIO MEDEX 2 Aug 11, 2014 [id number] [phone] ARCHAMBEA SHAQ Wagner PATIENT [facility] MEDICARE SUPPLEMEN [facility] Aug 11, 2014 [id number] SHAQ WONG PATIENT USMANA [facility] (WNR) MEDICARE ADVANTAGE HUMAN A INSUR [place] [facility] Jan 11, 2022 [id number] [phone] ARCHOCTAVIOEA SHAQ Wagner PATIENT USMANA [facility] (WNR) MEDICARE ADVANTAGE [facility] (WNR) Jan 11, 2022 [id number] [phone] ARCHAMBEA SHAQ Wagner PATIENT MEDICARE (WNR) MEDICARE (M) PART A Dec 11, 2014 PART A [id number] ARCHAMBEA USHAQ PATIENT MEDICARE (WNR) MEDICARE () PART A Aug 11, 2014 PART A [id number] [phone] ARCHAMBEA SHAQ Wagner PATIENT MEDICARE (WNR) MEDICARE () PART B Aug 11, 2014 PART B [id number] ARCHAMBEA USHAQ PATIENT MEDICARE (WNR) MEDICARE () PART A Aug 11, 2014 PART A [id number] ARCHAMBEA SHAQ Wagner PATIENT MEDICARE (WNR) MEDICARE () PART B Aug 11, 2014 PART B [id number] [phone] ARCHAMBEA SHAQ Wagner PATIENT MEDICARE (WNR) MEDICARE () PART A Aug 11, 2014 PART A [id number] ARCHAMBEA U,SHAQ PATIENT MEDICARE (WNR) MEDICARE (M) PART B Aug 11, 2014 PART B [id number] ARCHAMBEA U,SHAQ PATIENT MEDICARE (WNR) MEDICARE (M) PART B Aug 11, 2014 PART B [id number] [phone] ARCHAMBEA SHAQ Wagner PATIENT [facility] (WNR) MEDICARE ADVANTAGE [facility] (WNR) May 13, 2020 [id number] ARCHAMBEA SHAQ Wagner PATIENT Selected Encounter This section includes the information on record at [place] for the Encounter. Date/Time Encounter Type Encounter Description Reason Pro vider Source Dec 20, 2023 07:20 AM Outpatient Encounter ADMIN PAT ACTIVTIES (MASNONCT) IHE Encounter Template Text not used by [place] Plan of Treatment: Future Appointments (+ 6 months) and Future Tests (+/- 45 days) The Plan of Treatment section includes future care activities for the patient from [facility] [place] [facility]. This section includes future appointments and future orders which are active, pending or scheduled. Future Appointments This section includes appointments that were scheduled to occur 6 months from the date of the Encounter, up to a maximum of 20 appointments. The data comes from all [facility]. Appointment Date/Time Appointment Type Appointme nt Facility Name Dec 23, 2023 07:30 AM AMBULATORY MEDICINE [place] [facility] [facility] Dec 23, 2023 03:15 PM AMBULATORY - MEDICINE [facility] Jan 28, 2024 08:00 AM AMBULATORY MEDICINE [place] [facility] [place] [facility] Jan 30, 2024 07:30 AM AMBULATORY MEDICINE [facility] [place] [facility] Mar 06, 2024 08:45 AM AMBULATORY MEDICINE [place] [facility] [place] [facility] Mar 11, 2024 08:30 AM AMBULATORY - MEDICINE [facility] Mar 16, 2024 08:30 AM AMBULATORY MEDICINE [place] [facility] [place] [facility] Apr 07, 2024 10:00 AM AMBULATORY MEDICINE [place] [facility] [place] [facility] Apr 20, 2024 08:30 AM AMBULATORY [facility] Apr 28, 2024 11:00 AM AMBULATORY [facility] Active, Pending, and Scheduled Orders This section includes a listing of several types of active, pending, and scheduled orders, including clinic medications orders, diagnostic test orders, procedure orders and consult orders; where the start date of the order is 45 days before the date of the Encounter or 45 days after the date of theEncounter. The data comes from all [facility]. Test Date/Time Test Type Test Details Facility Name Jan 29, 2024 06:05 PM Consult Order COMMUNITY CARE-CARDIOLOGY Cons [facility] [place] Lab Results: +/- 30 days of the encounter This section includes the Chemistry and Hematology Lab Results on record with [place] for the patient. Radiology Reports and Pathology Reports are provided separately, in subsequent sections. Lab Results This section contains the Chemistry/Hematology Results that were resulted 30 days before or 30 daysafter the date of the Encounter. Date/Time Source Result Type Result - Unit Interpretation Reference Range Comment Dec 30, 2023 08:44 AM [place] MAGNESIUM Specimen Type: SERUM No comment entered. Ordering Provider: NEHEMIAH BOWERS Report Released Date/Time: Jul 04, 2023 09:50 AM Reporting Lab: [facility] [address] [address] Performing Lab: [address] [address] MAGNESIUM 1.9 mg/dL 1.6-2.6 Dec 30, 2023 08:44 AM [place] PSA Specimen Type: SERUM No comment entered. Ordering Provider: NEHEMIAH BOWERS Report Released Date/Time: Jul 04, 2023 09:50 AM Reporting Lab: [facility] [place] [address] Performing Lab: [facility] [address] [address] PSA 0.26 ng/mL 0.00-4.00 Dec 30, 2023 08:44 AM [place] TSH Specimen Type: SERUM No comment entered. Ordering Provider: NEHEMIAH BOWERS Report Released Date/Time: Jul 04, 2023 09:50 AM Reporting Lab: [facility] [address] Performing Lab: [facility] [address] [address] TSH 0.57 u[IU]/mL 0.35-5.00 Dec 30, 2023 08:44 AM [place] HEMOGLOBIN A1C PANEL Specimen Type: BLOOD Comment: Values obtained from A1C measurements can vary. For atypical A1C assays, a reported value of 7.0 could actually be between 6.72 and 7.28 if measured by a reference method. A reported value of 9.0 could actually be between 8.73 and 9.27. Ref: http://www.ngs p.org/CAPdata. asp Ordering Provider: NEHEMIAH BOWERS Report Released Date/Time: Jul 04, 2023 09:50 AM Reporting Lab: [address] [address] Performing Lab: [address] [address] HEMOGLOBIN A1C 4.9 4.0-5.6 Dec 30, 2023 08:44 AM [place] BASIC METABOLIC PANEL (fasting) Specime n Type: SERUM No comment entered. Ordering Provider: NEHEMIAH BOWERS Report Released Date/Time: Jul 04, 2023 09:50 AM Reporting Lab: [address] [address] Performing Lab: [address] [address] UREA NITROGEN 13 mg/dL 7-25 GLUCOSE 100 mg/dL 65-100 SODIUM 136 mmol/L 135-145 POTASSIUM 4.5 mmol/L 3.5-5.0 CHLORIDE 102 mmol/L 100-110 CO2 26 meq/L 20-30 CREATININE, Serum 0.96 mg/dL 0.50-1.40 eGFR(CKD-EPI 2020) 83 mL/min >60 Dec 30, 2023 08:44 AM [place] LIVER FUNCTION Specimen Type: SERUM No comment entered. Ordering Provider: NEHEMIAH BOWERS Report Released Date/Time: Jul 04, 2023 09:50 AM Reporting Lab: [address] [address] Performing Lab: [address] [address] PROTEIN,TOTAL 6.4 g/dL 6.0-8.3 ALBUMIN 4.0 g/dL 3.5-5.0 ALKALINE PHOSPHATASE 64 U/L 40-150 AST 17 U/L 5-34 ALT 19 U/L BILIRUBIN, TOTAL 0.5 mg/dL 0.2-1.2 Dec 30, 2023 08:44 AM [place] LIPID PANEL FASTING Specimen Type: SERUM No comment entered. Ordering Provider: NEHEMIAH BOWERS Report Released Date/Time: Jul 04, 2023 09:50 AM Reporting Lab: [address] [address] Performing Lab: [address] [address] CHOLESTEROL 159 mg/dL TRIGLYCERIDE 76 mg/dL 0-150 LDL calculated 66 mg/dL 0-129 CHOL/HDL 2.0 HDL CHOLESTEROL 78 mg/dL H 40-60 Dec 30, 2023 08:44 AM [place] CBC AND DIFF (AUTO) Specimen Type: BLOOD No comment entered. Ordering Provider: NEHEMIAH BOWERS Report Released Date/Time: Jul 04, 2023 09:50 AM Reporting Lab: [address] [address] Performing Lab: [address] [address] WBC 6.84 10*3/uL 4.50-11.00 RBC 4.52 10*6/uL 4.23-5.66 HGB 13.2 g/dL 12.8-17 HCT 40.1 39.2-50.4 MCV 88.7 fL 82-99 MCHC 32.9 g/dL 30.8-35.1 PLT 249 10*3/uL 140-360 RDW-CV 12.1 12.0-16.0 MONO, ABS 0.83 10*3/uL 0.30-1.10 MCH 29.2 pg 26.2-32.6 NEUT % 71.2 43.7-75.8 LYMPH % 12.9 L 14.0-42.3 MONO % 12.1 5.1-13.7 EOS % 2.9 0.4-6.8 BASO % 0.3 0.1-2.0 NEUT, ABS 4.87 10*3/uL 2.20-7.60 LYMPH, ABS 0.88 10*3/uL L 1.00-3.20 EOS, ABS 0.20 10*3/uL 0.03-0.44 BASO, ABS 0.02 10*3/uL 0.01-0.13 IMMATURE GRAN % 0.6 0.0-0.7 IMMATURE GRAN, ABS 0.04 10*3/uL 0.00-0.06 NRBC % 0.0 0.0-0.0 NRBC, ABS 0.00 10*3/uL 0.00-0.00 Social History: Smoking Status (Most current) and Tobacco Use (All prior to encounter date) This section includes the most current, and the historical, smoking and tobacco- related health factors from the [place] facility where the Encounter took place. Current Smoking Status This section includes the most current smoking, or tobacco-related health factor, from the [place] facility where the Encounter took place. Date/Time Current Smoking Status Comment Facil ity Jul 04, 2023 09:00 AM VA-TOBACCO FORMER USER [place] [facility] [place] [facility] Tobacco Use History This section includes a history of the smoking, or tobacco-related health factors, that were collected on or before the date of the Encounter. The data comes from the [place] facility where the Encounter took place. Date/Time Smoking Status/Tobacco Use Comment F acility Jul 04, 2023 09:00 AM VA-TOBACCO QUIT 15 YRS OR MORE [place] [facility] [place] [facility] Mar 14, 2022 03:02 PM VA-TOBACCO FORMER USER [place] [facility] [place] [facility] Mar 14, 2022 03:02 PM VA-TOBACCO QUIT 15 YRS OR MORE [place] [facility] [place] [facility] Feb 08, 2021 09:00 AM VA-TOBACCO FORMER USER [place] [facility] [place] [facility] Feb 08, 2021 09:00 AM VA-TOBACCO QUIT 15 YRS OR MORE [place] [facility] [place] [facility] October 09, 2019 01:12 PM VA-TOBACCO FORMER USER [place] [facility] [place] [facility] October 09, 2019 01:12 PM VA-TOBACCO QUIT 5 TO < 15 YRS [place] [facility] [place] [facility] Advance Directives: All historical and current Section Date Range: From patient's date of to the date document was created. This section includes ALL of a patient's completed or amended [place] Advance and Rescinded Directives. The entries below indicate that a directive exists for the patient, but an actual copy is not included with this document. The data comes from all [place] facilities. Date Advance Directives Provider Source Feb 21, 2021 ADVANCE DIRECTIVE BORISEBL Carolyn IBRAHIM [facility] Encounter Notes: All associated encounter notes This section contains the clinical notes associated to the Encounter. Date/Time Encounter Note(s) Provider Source Dec 20, 2023 07:20 AM ADMINISTRATIVE NOT E: LOCAL TITLE: CCC: SCHEDULING ADMINISTRATION STANDARD TITLE: ADMINISTRATIVE NOTE DATE OF NOTE: DEC 20, 2023@07:20 ENTRY DATE: DEC 20, 2023@07:20:17 AUTHOR: SONALI MAY EXP COSIGNER: URGENCY: STATUS: COMPLETED Vet is in need of a refill on his OXYCODONE 5MG/APAP 325MG TAB. Please mail. /robe/ SONALI MAY Advanced Steelscope Operator Signed: 12/20/2023 07:20 Receipt Acknowledged By: 12/25/2023 16:22 /es/ CECILIO AL RN REGISTERED NURSE 12/23/2023 13:28 /es/ NATA MULLIGAN LPN LPN 12/22/2023 12:28 /es/ WENDY CARDONA NP NURSE PRACTITIONER for SONALI [facility] [place]
--- OUTSIDE RECORDS SUMMARY | 2024-04-28 11:03 | XMS_ITS | Encounter Summary ---
Author Name [place] Address [address] [place] [address] Care Team Providers Care Apple Picking Supervisor Name Role Phone NEHEMIAH CUEVAS Primary [...] Name Patient's Relationship to Policy [facility] Aug 11, 2014 [id number] [phone] HDAVAL SHAQ aWgner PATIENT [facility] SUPPLEMEN ARTEMIO [facility] Aug 11, 2014 [id number] DHAVAL SHAQ Wagner PATIENT [facility] MEDICARE SUPPLEMEN ARTEMIO MEDEX 2 Aug 11, 2014 [id number] DHAVAL SHAQ Wagner PATIENT [place] MED[place] SUPPLEMEN ARTEMIO MEDEX 2 Aug 11, 2014 [id number] DHAVAL SHAQ Wagner PATIENT [place] SUPPLEMEN ARTEMIO MEDEX 2 Aug 11, 2014 [id number] [phone] [place] SHAQ Wagner [place] MEDICARE SUPPLEMEN [employer] [facility] [place] [facility] Aug 11, 2014 [id number] SHAQ WONG PATIENT USMANA [facility] (WNR) MEDICARE ADVANTAGE HUMAN A INSUR [facility] Jan 11, 2022 [id number] [phone] ARCHOCTAVIOEA SHAQ Wagner PATIENT USMANA [facility] (WNR) MEDICARE ADVANTAGE [facility] (WNR) Jan 11, 2022 [id number] [phone] ARCHAMBEA SHAQ Wagner PATIENT MEDICARE (WNR) MEDICARE () PART A Dec 11, 2014 PART A [id number] [phone] AR[place]A SHAQ Wagner PATIENT MEDICARE (WNR) MEDICARE () PART A Aug 11, 2014 PART A [id number] ARCHAM[place]A SHAQ Wagner PATIENT MEDICARE (WNR) MEDICARE () PART B Aug 11, 2014 PART B [id number] [phone] ARCHAMBEA SHAQ Wagner PATIENT MEDICARE (WNR) MEDICARE () PART A Aug 11, 2014 PART A [id number] [phone] ARCHAMBEA SHAQ Wagner PATIENT MEDICARE (WNR) MEDICARE () PART B Aug 11, 2014 PART B [id number] [phone] ARCHAMBEA Bernard,SHAQ PATIENT MEDICARE (WNR) MEDICARE () PART A Aug 11, 2014 PART A [id number] AR[place]AM[place]A SHAQ Wagner PATIENT MEDICARE (WNR) MEDICARE () PART B Aug 11, 2014 PART B [id number] AR[place]AM[place]A SHAQ Wagner PATIENT MEDICARE (WNR) MEDICARE () PART B Aug 11, 2014 PART B [id number] ARCHAMBEA SHAQ Wagner [facility] (WNR) MEDICARE ADVANTAGE [facility] (WNR) May 13, 2020 [id number] ARCHAMBEA SHAQ Wagner PATIENT Selected Encounter This section includes the information on record at [place] for the Encounter. Date/Time Encounter Type Encounter Description Reason Pro vider Source Dec 05, 2023 12:00 PM Outpatient Encounter COMMUNITY CARE CONSULT IHE Encounter Template Text not used by [place] Plan of Treatment: Future Appointments (+ 6 months) and Future Tests (+/- 45 days) The Plan of Treatment section includes future care activities for the patient from all [place] treatmentfacilities. This section includes future appointments and future orders which are active, pending or scheduled. Future Appointments This section includes appointments that were scheduled to occur 6 months from the date of the Encounter, up to a maximum of 20 appointments. The data comes from all [place] treatment facilities. Appointment Date/Time Appointment Type Appointme nt Facility Name Dec 23, 2023 07:30 AM AM[place]ULATORY [place]ICINE [place] [facility] [place] [facility] Dec 23, 2023 03:15 PM AMBULATORY - MEDICINE [facility] Jan 28, 2024 08:00 AM AM[place]ULATORY [place] [facility] [place] [facility] [facility] Jan 30, 2024 07:30 AM AM[place]ULATORY [place]IC[place] [facility] [facility] Mar 06, 2024 08:45 AM AMBULATORY [place]ICINE [place] [facility] [place] [facility] Mar 11, 2024 08:30 AM AMBULATORY - MEDICINE [facility] Mar 16, 2024 08:30 AM AMBULATORY [place]ICINE [place] [facility] [place] [facility] Apr 07, 2024 10:00 AM AMBULATORY [place] [facility] [place] [facility] Apr 20, 2024 08:30 AM AMBULATORY - MEDICINE [facility] Apr 28, 2024 11:00 AM AMBULATORY - [place]ICINE [place] [facility] [place] [place] [facility] Lab Results: +/- 30 days of the encounter This section includes the Chemistry and Hematology Lab Results on record with [place] for the patient. Radiology Reports and Pathology Reports are provided separately, in subsequent sections. Lab Results This section contains the Chemistry/Hematology Results that were resulted 30 days before or 30 daysafter the date of the Encounter. Date/Time Source Result Type Result - Unit Interpretation Reference Range Comment Dec 30, 2023 08:44 AM [facility] MAGNESIUM Specimen Type: SERUM No comment entered. Ordering Provider: NEHEMIAH BOWERS Report Released Date/Time: Jul 04, 2023 09:50 AM Reporting [facility]: [facility] [address] [facility] [address] Performing Lab: [facility] [address] [facility] [address] MAGNESIUM 1.9 mg/dL 1.6-2.6 Dec 30, 2023 08:44 AM [facility] PSA Specimen Type: SERUM No comment entered. Ordering Provider: NEHEMIAH BOWERS Report Released Date/Time: Jul 04, 2023 09:50 AM Reporting Lab: [facility] [address] [facility] [address] Performing Lab: [address] [address] PSA 0.26 ng/mL 0.00-4.00 Dec 30, 2023 08:44 AM [facility] TSH Specimen Type: SERUM No comment entered. Ordering Provider: NEHEMIAH BOWERS Report Released Date/Time: Jul 04, 2023 09:50 AM Reporting [facility] [address] [address] Performing Lab: [address] [address] TSH 0.57 u[IU]/mL 0.35-5.00 Dec 30, 2023 08:44 AM [facility] HEMOGLOBIN A1C PANEL Specimen Type: BLOOD Comment: [...] Jul 04, 2023 09:50 AM Reporting Lab: [address] [address] Performing Lab: [address] [address] HEMOGLOBIN A1C 4.9 4.0-5.6 Dec 30, 2023 08:44 AM [facility] LIPID PANEL FASTING Specimen Type: SERUM No comment entered. Ordering Provider: NEHEMIAH BOWERS Report Released Date/Time: Jul 04, 2023 09:50 AM Reporting Lab: [address] [address] Performing Lab: [address] [address] CHOLESTEROL 159 mg/dL TRIGLYCERIDE 76 mg/dL 0-150 LDL calculated 66 mg/dL 0-129 CHOL/HDL 2.0 HDL CHOLESTEROL 78 mg/dL H 40-60 Dec 30, 2023 08:44 AM [facility] BASIC METABOLIC PANEL (fasting) Specime n Type: SERUM No comment entered. Ordering Provider: NEHEMIAH BOWERS Report Released Date/Time: Jul 04, 2023 09:50 AM Reporting Lab: [address] [address] Performing Lab: [address] [address] UREA NITROGEN 13 mg/dL 7-25 GLUCOSE 100 mg/dL 65-100 SODIUM 136 mmol/L 135-145 POTASSIUM 4.5 mmol/L 3.5-5.0 CHLORIDE 102 mmol/L 100-110 CO2 26 meq/L 20-30 CREATININE, Serum 0.96 mg/dL 0.50-1.40 eGFR(CKD-EPI 2020) 83 mL/min >60 Dec 30, 2023 08:44 AM [facility] LIVER FUNCTION Specimen Type: SERUM No comment entered. Ordering Provider: NEHEMIAH BOWERS Report Released Date/Time: Jul 04, 2023 09:50 AM Reporting Lab: [address] [address] Performing Lab: [address] [address] PROTEIN,TOTAL 6.4 g/dL 6.0-8.3 ALBUMIN 4.0 g/dL 3.5-5.0 ALKALINE PHOSPHATASE 64 U/L 40-150 AST 17 U/L 5-34 ALT 19 U/L BILIRUBIN, TOTAL 0.5 mg/dL 0.2-1.2 Dec 30, 2023 08:44 AM [facility] CBC AND DIFF (AUTO) Specimen Type: BLOOD No comment entered. Ordering Provider: NEHEMIAH BOWERS Report Released Date/Time: Jul 04, 2023 09:50 AM Reporting Lab: [facility] [address] [facility] [address] Performing Lab: [facility] [address] [facility] [address] WBC 6.84 10*3/uL 4.50-11.00 RBC 4.52 10*6/uL [...] and tobacco- related health factors from the [place] facility where the Encounter took place. Current Smoking Status This section includes the most current smoking, or tobacco-related health factor, from the [place] facility where the Encounter took place. Date/Time Current Smoking Status Comment Lor gonzalez Jul 04, 2023 09:00 AM VA-TOBACCO [facility] Tobacco Use History This section includes a history of the smoking, or tobacco-related health factors, that were collected on or before the date of the Encounter. The data comes from the [place] facility where the Encounter took place. Date/Time Smoking Status/Tobacco Use Comment Joselyn blas Jul 04, 2023 09:00 AM VA-TOBACCO QUIT 15 YRS OR MORE [place] [facility] [place] [facility] Mar 14, 2022 03:02 PM VA-TOBACCO FORMER USER [place] [facility] [facility] Mar 14, 2022 03:02 PM VA-TOBACCO QUIT 15 YRS OR MORE [place] [facility] [place] [facility] Feb 08, 2021 09:00 AM VA-TOBACCO FORMER USER [place] [facility] [facility] Feb 08, 2021 09:00 AM VA-TOBACCO QUIT 15 YRS OR MORE [place] [facility] [place] [facility] October 09, 2019 01:12 PM VA-TOBACCO FORMER USER [place] [facility] [place] [facility] October 09, 2019 01:12 PM VA-TOBACCO QUIT 5 TO < 15 YRS [place] [facility] Advance Directives: All historical and current Section Date Range: From patient's date of to the date document was created. This section includes ALL of a patient's completed or amended [place] Advance and Rescinded Directives. The entries below indicate that a directive exists for the patient, but an actual copy is not included with this document. The data comes from all [place] facilities. Date Advance Directives Provider Source Feb 21, 2021 ADVANCE DIRECTIVE BEL ESCALANTE [facility] Encounter Notes: All associated encounter notes This section contains the clinical notes associated to the Encounter. Date/Time Encounter Note(s) Provider Source Dec 05, 2023 12:00 PM NONVA CONSULT: LOCAL TITLE: COMMUNITY CARE-CONSULT RESULT NOTE STANDARD TITLE: NONVA CONSULT DATE OF NOTE: DEC 05, 2023@12:00 ENTRY DATE: DEC 20, 2023@09:56:58 AUTHOR: SENDY DEXTER EXP COSIGNER: URGENCY: STATUS: COMPLETED VistA Imaging - Scanned Document SCANNED DOCUMENT SIGNATURE NOT REQUIRED Electronically Filed: 12/20/2023 by: SENDY DEXTER INFORMATION SECURITY DIRECTOR SENDY DEXTER [place] [facility]
--- OUTSIDE RECORDS SUMMARY | 2024-04-28 11:03 | XMS_ITS ---
Author Name [place] Organization [place] Address [address] [place] [address] Care Team Providers Care Clerical Coordinator Name Role Phone NEHEMIAH CUEVAS Primary [...] Relationship to Policy [facility] Aug 11, 2014 [id number] DHAVAL SHAQ Wagner PATIENT [facility] MEDICARE SUPPLEMEN [facility]IO [facility] Aug 11, 2014 [id number] [phone] DHAVAL SHAQ Wagner [facility]IENT [facility]IC[facility] SUPPLEMEN ARTEMIO MEDEX 2 Aug 11, 2014 [id number] DHAVAL SHAQ Wagner PATIENT [place] SUPPLEMEN ARTEMIO MEDEX 2 Aug 11, 2014 [id number] [phone] ARCHAMBRENATA SHAQ Wagner PATIENT [place] SUPPLEMEN ARTEMIO MEDEX 2 Aug 11, 2014 [id number] ARCHAMBEA SHAQ Wagner PATIENT [place] MEDICARE SUPPLEMEN [employer] [place] Aug 11, 2014 [id number] SHAQ WONG PATIENT USMANA [facility] (WNR) MEDICARE ADVANTAGE HUMAN A INSUR [place] [facility] Jan 11, 2022 [id number] [phone] ARCHOCTAVIOEA SHAQ Wagner PATIENT USMANA [facility] (WNR) MEDICARE ADVANTAGE [facility] (WNR) Jan 11, 2022 [id number] [phone] ARCHAMBEA SHAQ Wagner PATIENT MEDICARE (WNR) MEDICARE () PART A Dec 11, 2014 PART A [id number] ARCHAMBEA SHAQ Wagner PATIENT MEDICARE (WNR) MEDICARE () PART A Aug 11, 2014 PART A [id number] ARCHAMBEA SHAQ Wagner PATIENT MEDICARE (WNR) MEDICARE () PART B Aug 11, 2014 PART B [id number] [phone] ARCHAMBEA SHAQ Wagner PATIENT MEDICARE (WNR) MEDICARE () PART A Aug 11, 2014 PART A [id number] [phone] ARCHAMBEA SHAQ Wagner PATIENT MEDICARE (WNR) MEDICARE () PART B Aug 11, 2014 PART B [id number] ARCHAMBEA SHAQ Wagner PATIENT MEDICARE (WNR) MEDICARE () PART A Aug 11, 2014 PART A [id number] [phone] ARCHAMBEA Bernard,SHAQ PATIENT MEDICARE (WNR) MEDICARE () PART B Aug 11, 2014 PART B [id number] [phone] ARCHAMBEA SHAQ Wagner PATIENT MEDICARE (WNR) MEDICARE () PART B Aug 11, 2014 PART B [id number] ARCHAMBEA SHAQ Wagner [facility] (WNR) MEDICARE ADVANTAGE [facility] (WNR) May 13, 2020 [id number] [phone] ARCHAMBEA SHAQ Wagner PATIENT Selected Encounter This section includes the information on record at [place] for the Encounter. Date/Time Encounter Type Encounter Description Reason Pro vider Source Oct 29, 2023 12:00 PM Outpatient Encounter COMMUNITY CARE CONSULT IHE Encounter Template Text not used by [facility] Plan of Treatment: Future Appointments (+ 6 months) and Future Tests (+/- 45 days) The Plan of Treatment section includes future care activities for the patient from all [place] treatmentfacilities. This section includes future appointments and [...] - MEDICINE [place] [facility] [place] [facility] Nov 28, 2023 07:30 AM AMBULATORY - REHAB MEDICIN E [place] [facility] [place] [facility] Dec 23, 2023 07:30 AM AMBULATORY - MEDICINE [place] [place] [facility] Dec 23, 2023 03:15 PM AMBULATORY - MEDICINE [facility] Jan 28, 2024 08:00 AM AMBULATORY - MEDICINE [place] [facility] Jan 30, 2024 07:30 AM AMBULATORY - MEDICINE [place] [facility] [place] [place] [facility] Mar 06, 2024 08:45 AM AMBULATORY - MEDICINE [place] [facility] Mar 11, 2024 08:30 AM AMBULATORY - MEDICINE [facility] Mar 16, 2024 08:30 AM AMBULATORY - MEDICINE [place] [facility] Apr 07, 2024 10:00 AM AMBULATORY - MEDICINE [place] [facility] Apr 20, 2024 08:30 AM AMBULATORY - MEDICINE [facility] Apr 28, 2024 11:00 AM AMBULATORY - MEDICINE [place] [place] [facility] Social History: Smoking Status (Most current) and Tobacco Use (All prior to encounter date) This section includes the most current, and the historical, smoking and tobacco- related health factors from the [place] facility where the Encounter took place. Current Smoking Status This section includes the most current smoking, or tobacco-related health factor, from the [place] facility where the Encounter took place. Date/Time Current Smoking Status Comment Lor gonzalez Jul 04, 2023 09:00 AM VA-TOBACCO [facility] Tobacco Use History This section includes a history of the smoking, or tobacco-related health factors, that were collected on or before the date of the Encounter. The data comes from the [place] facility where the Encounter took place. Date/Time Smoking Status/Tobacco Use Comment F acility Jul 04, 2023 09:00 AM VA-TOBACCO QUIT 15 YRS OR MORE [place] [facility] [place] [facility] Mar 14, 2022 03:02 PM VA-TOBACCO FORMER USER [place] [facility] [place] [facility] Mar 14, 2022 03:02 PM VA-TOBACCO QUIT 15 YRS OR MORE [place] [facility] [place] [facility] Feb 08, 2021 09:00 AM VA-TOBACCO FORMER USER [place] [place] [facility] Feb 08, 2021 09:00 AM VA-TOBACCO QUIT 15 YRS OR MORE [place] [place] [facility] October 09, 2019 01:12 PM VA-TOBACCO FORMER USER [place] [place] [facility] October 09, 2019 01:12 PM VA-TOBACCO QUIT 5 TO < 15 YRS [facility] Advance Directives: All historical and current [...] Feb 21, 2021 ADVANCE DIRECTIVE BEL ESCALANTE [facility] Radiology Reports: +/- 30 days of [...] the Encounter. The data comes from all [place] treatment facilities. Date/Time Radiology Report Provider Source October 02, 2023 08:18 AM FLUOROSCOPIC NITIN NCE FOR NEEDLE PLACEMENT: ARCHAMBEAU,SHAQ A [id number] -[id number] M Exm Date: OCTOBER 02, 2023@08:18 Req Phys: BERNABE PRIETO Pat Loc: CWM/NO/MED REHAB/SPINE INJ (Re Img Loc: [facility] 1 Service: Unknown [facility] , (Case [id number] COMPLETE) FLUOROSCOPIC GUIDANCE FOR NEEDLE (RAD Detailed) CPT:15443 Proc Modifiers : LEFT Reason for Study: SI joint injection Clinical History: Report Status: Verified Date Reported: OCTOBER 02, 2023 Date Verified: OCTOBER 02, 2023 [place] E-Sig:/ES/LOU VICTORIA JR Report: Study: Pain injection [...] Primary Interpreting Staff: LOU VICTORIA JR, Radiologist ([place]) /LOU WASHINGTON JR [facility] Encounter Notes: All associated encounter notes This section contains the clinical notes associated to the Encounter. Date/Time Encounter Note(s) Provider Source Oct 29, 2023 12:00 PM NONVA CONSULT: LOCAL TITLE: COMMUNITY CARE-CONSULT RESULT NOTE STANDARD TITLE: NONVA CONSULT DATE OF NOTE: OCT 29, 2023@12:00 ENTRY DATE: DEC 06, 2023@13:35:33 AUTHOR: VIRGIL CUADRA EXP COSIGNER: URGENCY: STATUS: COMPLETED VistA Imaging - Scanned Document SCANNED DOCUMENT SIGNATURE NOT REQUIRED Electronically Filed: 12/06/2023 by: VIRGIL COVARRUBIAS [facility]
--- OUTSIDE RECORDS SUMMARY | 2024-04-28 11:03 | XMS_ITS | Encounter Summary ---
Author Name [facility] [place] Organization [place] Address [address] [place] [address] Care Team Providers Care Materials Planning Analyst Name Role Phone NEHEMIAH CUEVAS Primary [...] Name Patient's Relationship to Policy Orellana ANA [place] Aug 11, 2014 [id number] DHAVAL SHAQ Wagner PATIENT ANA BCBS [facility] MEDICARE SUPPLEMEN ARTEMIO [facility] Aug 11, 2014 [id number] [phone] [facility]AVAL SHAQ [facility] ARTEMIO MEDEX 2 Aug 11, 2014 [id number] DHAVAL SHAQ Wagner PATIENT BC[place] MED[place] SUPPLEMEN ARTEMIO MEDEX 2 Aug 11, 2014 [id number] DHAVAL SHAQ Wagner PATIENT BCBS [place] MEDICARE SUPPLEMEN ARTEMIO MEDEX 2 Aug 11, 2014 [id number] [phone] ARCHAMBEA SHAQ Wagner PATIENT [facility] [place] [facility] MEDICARE SUPPLEMEN [place] [place] [facility] [place] Aug 11, 2014 [id number] SHAQ WONG PATIENT USMANA [facility] (WNR) MEDICARE ADVANTAGE HUMAN A INSUR [facility] Jan 11, 2022 [id number] [phone] ARCHOCTAVIOEA SHAQ Wagner PATIENT USMANA MCR (WNR) MEDICARE ADVANTAGE [facility] (WNR) Jan 11, 2022 [id number] [phone] ARCHAMBEA SHAQ Wagner PATIENT MEDICARE (WNR) MEDICARE (M) PART A Dec 11, 2014 PART A [id number] ARCHAMBEA USHAQ PATIENT MEDICARE (WNR) MEDICARE () PART A Aug 11, 2014 PART A [id number] [phone] ARCHAMBEA SHAQ Wagner PATIENT MEDICARE (WNR) MEDICARE () PART B Aug 11, 2014 PART B [id number] [phone] ARCHAMBEA USHAQ PATIENT MEDICARE (WNR) MEDICARE () PART A Aug 11, 2014 PART A [id number] ARCHAMBEA SHAQ Wagner PATIENT MEDICARE (WNR) MEDICARE () PART B Aug 11, 2014 PART B [id number] ARCHAMBEA SHAQ Wagner PATIENT MEDICARE (WNR) MEDICARE () PART A Aug 11, 2014 PART A [id number] ARCHAMBEA U,SHAQ PATIENT MEDICARE (WNR) MEDICARE (M) PART B Aug 11, 2014 PART B [id number] ARCHAMBEA U,SHAQ PATIENT MEDICARE (WNR) MEDICARE (M) PART B Aug 11, 2014 PART B [id number] ARCHAMBEA SHAQ Wagner PATIENT [facility] (WNR) MEDICARE ADVANTAGE [facility] (WNR) May 13, 2020 [id number] ARCHAMBEA SHAQ Wagner PATIENT Selected Encounter This section includes the information on record at [place] for the Encounter. Date/Time Encounter Type Encounter Description Reason Pro vider Source Dec 08, 2023 07:49 AM Outpatient Encounter ADMIN PAT ACTIVTIES (MASNONCT) IHE Encounter Template Text not used by [place] Plan of Treatment: Future Appointments (+ 6 months) and Future Tests (+/- 45 days) The Plan of Treatment section includes future care activities for the patient from all [place] [facility]. This section includes future appointments and [...] Dec 23, 2023 07:30 AM AMBULATORY MEDICINE [place] [facility] Dec 23, 2023 03:15 PM AMBULATORY - MEDICINE [facility] Jan 28, 2024 08:00 AM AMBULATORY MEDICINE [place] [facility] Jan 30, 2024 07:30 AM AMBULATORY MEDICINE [place] [facility] Mar 06, 2024 08:45 AM AMBULATORY MEDICINE [place] [facility] Mar 11, 2024 08:30 AM AMBULATORY - MEDICINE [facility] Mar 16, 2024 08:30 AM AMBULATORY MEDICINE [place] [facility] Apr 07, 2024 10:00 AM AMBULATORY MEDICINE [place] [facility] Apr 20, 2024 08:30 AM AMBULATORY - MEDICINE [facility] Apr 28, 2024 11:00 AM AMBULATORY MEDICINE [facility] N[facility]L [facility] Lab Results: +/- 30 days of the [...] Range Comment Dec 30, 2023 08:44 AM [place] MAGNESIUM Specimen Type: SERUM No comment entered. Ordering Provider: NEHEMIAH BOWERS Report Released Date/Time: Jul 04, 2023 09:50 AM Reporting Lab: [facility] [address] [facility] [facility] [address] Performing Lab: [facility] [place] [facility] [address] [facility] [address] MAGNESIUM 1.9 mg/dL 1.6-2.6 Dec 30, 2023 08:44 AM [place] PSA Specimen Type: SERUM No comment entered. Ordering Provider: NEHEMIAH BOWERS Report Released Date/Time: Jul 04, 2023 09:50 AM Reporting Lab: [facility]TR[facility] [address] [facility] [facility] [address] Performing [facility]: [facility] [address] [facility] [address] PSA 0.26 ng/mL 0.00-4.00 Dec 30, 2023 08:44 AM [place] TSH Specimen Type: SERUM No comment entered. Ordering Provider: NEHEMIAH BOWERS Report Released Date/Time: Jul 04, 2023 09:50 AM Reporting Lab: [facility]TRN [facility] [address] [facility] [address] Performing Lab: [facility]ERN [facility] [address] [facility] [address] TSH 0.57 u[IU]/mL 0.35-5.00 Dec 30, 2023 08:44 AM [place] HEMOGLOBIN A1C PANEL Specimen Type: BLOOD Comment: [...] Jul 04, 2023 09:50 AM Reporting [facility] [address] [address] Performing Lab: [address] [address] HEMOGLOBIN A1C 4.9 4.0-5.6 Dec 30, 2023 08:44 AM [place] BASIC METABOLIC PANEL (fasting) Specime n Type: SERUM No comment entered. Ordering Provider: NEHEMIAH BOWERS Report Released Date/Time: Jul 04, 2023 09:50 AM Reporting Lab: [address] [address] Performing Lab: [address] [address] UREA NITROGEN 13 mg/dL 7-25 GLUCOSE 100 mg/dL 65-100 SODIUM 136 mmol/L 135-145 POTASSIUM 4.5 mmol/L 3.5-5.0 CHLORIDE 102 mmol/L 100-110 CO2 26 meq/L 20-30 CREATININE, Serum 0.96 mg/dL 0.50-1.40 eGFR(CKD-EPI 2020) 83 mL/min >60 Dec 30, 2023 08:44 AM [place] LIVER FUNCTION Specimen Type: SERUM No comment entered. Ordering Provider: NEHEMIAH BOWERS Report Released Date/Time: Jul 04, 2023 09:50 AM Reporting Lab: [address] [address] Performing Lab: [address] [address] PROTEIN,TOTAL 6.4 g/dL 6.0-8.3 ALBUMIN 4.0 g/dL 3.5-5.0 ALKALINE PHOSPHATASE 64 U/L 40-150 AST 17 U/L 5-34 ALT 19 U/L BILIRUBIN, TOTAL 0.5 mg/dL 0.2-1.2 Dec 30, 2023 08:44 AM [place] LIPID PANEL FASTING Specimen Type: SERUM No comment entered. Ordering Provider: NEHEMIAH BOWERS Report Released Date/Time: Jul 04, 2023 09:50 AM Reporting Lab: [address] [address] Performing Lab: [address] [address] CHOLESTEROL 159 mg/dL TRIGLYCERIDE 76 mg/dL 0-150 LDL calculated 66 mg/dL 0-129 CHOL/HDL 2.0 HDL CHOLESTEROL 78 mg/dL H 40-60 Dec 30, 2023 08:44 AM [place] CBC AND DIFF (AUTO) Specimen Type: BLOOD No comment entered. Ordering Provider: NEHEMIAH BOWERS Report Released Date/Time: Jul 04, 2023 09:50 AM Reporting Lab: [facility] [address] [facility] [address] Performing Lab: [facility] [address] [facility] [address] WBC 6.84 10*3/uL 4.50-11.00 RBC 4.52 10*6/uL [...] 04, 2023 09:00 AM VA-TOBACCO FORMER [facility]ER [facility] Tobacco Use History This section includes a history of the smoking, or tobacco-related health factors, that were collected on or before the date of the Encounter. The data comes from the [place] facility where the Encounter took place. Date/Time Smoking Status/Tobacco Use Comment Joselyn blas Jul 04, 2023 09:00 AM VA-TOBACCO QUIT 15 YRS OR MORE [place] [facility] Mar 14, 2022 03:02 PM VA-TOBACCO FORMER USER [place] [facility] Mar 14, 2022 03:02 PM VA-TOBACCO QUIT 15 YRS OR MORE [place] [facility] Feb 08, 2021 09:00 AM VA-TOBACCO FORMER USER [place] [facility] Feb 08, 2021 09:00 AM VA-TOBACCO QUIT 15 YRS OR MORE [place] [facility] October 09, 2019 01:12 PM VA-TOBACCO FORMER USER [place] [facility] October 09, 2019 01:12 PM VA-TOBACCO QUIT 5 TO < 15 YRS [place] [facility] Advance Directives: All historical and [...] Encounter. Date/Time Encounter Note(s) Provider Source Dec 08, 2023 07:50 AM ADMINISTRATIVE NOTE: LOCAL TITLE: CCC: SCHEDULING ADMINISTRATION STANDARD TITLE: ADMINISTRATIVE NOTE DATE OF NOTE: DEC 08, 2023@07:50 ENTRY DATE: DEC 08, 2023@07:50:12 AUTHOR: JAGJIT LARA EXP COSIGNER: URGENCY: STATUS: COMPLETED requesting rx refill ROPINIROLE TAB 0.25MG(to be mailed out) /robe/ ELDA LARA VISN2 [facility] AMSA Signed: 12/08/2023 07:50 Receipt Acknowledged By: 12/08/2023 12:25 /robe/ Joi Hill, RN Registered Nurse for CECILIO AL * AWAITING SIGNATURE * LANCE CUEVAS CARME N O [place] CNTRL [facility]
--- OUTSIDE RECORDS SUMMARY | 2024-04-28 11:03 | XMS_ITS ---
Author Name [facility] [place] Organization [place] Address [address] [place] [address] Care Team Providers Care Paint Technician Name Role Phone NEHEMIAH CUEVAS Primary Care [...] Patient's Relationship to Policy Orellana ANA [facility] Aug 11, 2014 [id number] DHAVAL SHAQ Wagner PATIENT ANA BCBS [facility] MEDICARE SUPPLEMEN ARTEMIO [facility] Aug 11, 2014 [id number] [phone] DHAVAL SHAQ [facility] SUPPLEMEN ARTEMIO MEDEX 2 Aug 11, 2014 [id number] [phone] DHAVAL SHAQ [place] SUPPLEMEN ARTEMIO MEDEX 2 Aug 11, 2014 [id number] DHAVAL SHQA Wagner [place] SUPPLEMEN ARTEMIO MEDEX 2 Aug 11, 2014 [id number] [phone] ARCHAMBEA SHAQ Wagner PATIENT [place] MEDICARE SUPPLEMEN [facility] [place] [facility] [place] Aug 11, 2014 [id number] ARCHOCTAVIOEA SHAQ Wagner PATIENT HUMANA [facility] (WNR) MEDICARE ADVANTAGE HUMAN A INSUR [facility] Jan 11, 2022 [id number] [phone] ARCHAMBEA USHAQ PATIENT USMANA [facility] (WNR) MEDICARE ADVANTAGE [facility] (WNR) Jan 11, 2022 [id number] [phone] ARCHAMBEA U,SHAQ PATIENT MEDICARE (WNR) MEDICARE () PART A Dec 11, 2014 PART A [id number] ARCHAMBEA U,SHAQ PATIENT MEDICARE (WNR) MEDICARE () PART A Aug 11, 2014 PART A [id number] [phone] ARCHAMBEA U,SHAQ PATIENT MEDICARE (WNR) MEDICARE () PART B Aug 11, 2014 PART B [id number] ARCHAMBEA U,SHAQ PATIENT MEDICARE (WNR) MEDICARE () PART A Aug 11, 2014 PART A [id number] ARCHAMBEA U,SHAQ PATIENT MEDICARE (WNR) MEDICARE () PART B Aug 11, 2014 PART B [id number] ARCHAMBEA U,SHAQ PATIENT MEDICARE (WNR) MEDICARE () PART B Aug 11, 2014 PART B [id number] [phone] ARCHAMBEA U,SHAQ PATIENT MEDICARE (WNR) MEDICARE () PART A Aug 11, 2014 PART A [id number] ARCHAMBEA U,SHAQ PATIENT MEDICARE (WNR) MEDICARE () PART B Aug 11, 2014 PART B [id number] [phone] ARCHAMBEA U,SHAQ PATIENT [facility] (WNR) MEDICARE ADVANTAGE [facility] (WNR) May 13, 2020 [id number] ARCHAMBEA U,SHAQ PATIENT Selected Encounter This section includes the information on record at [place] for the Encounter. Date/Time Encounter Type Encounter Description Reason Provider Source Dec 23, 2023 07:30 AM [place] DIFFUSE CAPACITY PULMONARY FUNCTION ICD-10-CM R06.00 Dyspnea, unspecified SIMON MOSQUEDA MD [facility] Encounter Template Text not used by [place] Assessments - Encounter Diagnoses This section includes the primary and secondary diagnoses documented for the Encounter. Date/Time Primary/Secondary Diagnosis Diagnosis Name Provider Source Dec 25, 2023 10:32 AM PRIMARY Dyspnea, unspecified SIMON MOSQUEDA MD [facility] Plan of Treatment: Future Appointments (+ 6 months) and Future Tests (+/- 45 days) The Plan of Treatment section includes future care activities for the patient from all [place] [facility]. This section includes future appointments and future orders which are active, pending or scheduled. Future Appointments This section includes appointments that were scheduled to occur 6 months from the date of the Encounter, up to a maximum of 20 appointments. The data comes from all [place] treatment facilities. Appointment Date/Time Appointment Type Appointme nt Facility Name Jan 28, 2024 08:00 AM AMBULATORY - MEDICINE [place] [facility] Jan 30, 2024 07:30 AM AMBULATORY - MEDICINE [place] C [place] [facility] Mar 06, 2024 08:45 AM AMBULATORY - MEDICINE [place] C [place] [facility] Mar 11, 2024 08:30 AM AMBULATORY - MEDICINE [facility] Mar 16, 2024 08:30 AM AMBULATORY - MEDICINE [place] C [place] [facility] Apr 07, 2024 10:00 AM AMBULATORY - MEDICINE [place] C [place] [facility] Apr 20, 2024 08:30 AM AMBULATORY - MEDICINE [facility] Apr 28, 2024 11:00 AM AMBULATORY - MEDICINE [place] C [place] [facility] Jun 22, 2024 08:30 AM AMBULATORY - NONE [place] [facility] Active, Pending, and Scheduled Orders This section includes a listing of several types of active, pending, and scheduled orders, including clinic medications orders, diagnostic test orders, procedure orders and consult orders; where the start date of the order is 45 days before the date of the Encounter or 45 days after the date of theEncounter. The data comes from all [place] treatment facilities. Test Date/Time Test Type Test Details Facility Name Jan 29, 2024 06:05 PM Consult Order [facility]-CARD[facility]OLOG[facility] Cons [employer] [place] Lab Results: +/- 30 days of the [...] Range Comment Dec 30, 2023 08:44 AM [place] PSA Specimen Type: SERUM No comment entered. Ordering Provider: NEHEMIAH BOWERS Report Released Date/Time: Jul 04, 2023 09:50 AM Reporting [facility] [address] [address] Performing Lab: [facility] [address] [address] PSA 0.26 ng/mL 0.00-4.00 Dec 30, 2023 08:44 AM [place] MAGNESIUM Specimen Type: SERUM No comment entered. Ordering Provider: NEHEMIAH BOWERS Report Released Date/Time: Jul 04, 2023 09:50 AM Reporting Lab: [facility] [address] [facility] [address] Performing Lab: [facility] [address] [address] MAGNESIUM 1.9 mg/dL 1.6-2.6 Dec 30, 2023 08:44 AM [place] TSH Specimen Type: SERUM No comment entered. Ordering Provider: NEHEMIAH BOWERS Report Released Date/Time: Jul 04, 2023 09:50 AM Reporting Lab: [facility] [address] Performing Lab: [facility] [address] TSH 0.57 u[IU]/mL 0.35-5.00 Dec 30, 2023 08:44 AM [place] HEMOGLOBIN A1C PANEL Specimen Type: BLOOD Comment: [...] Jul 04, 2023 09:50 AM Reporting Lab: [address] [address] Performing Lab: [address] [address] HEMOGLOBIN A1C 4.9 4.0-5.6 Dec 30, 2023 08:44 AM [place] LIPID PANEL FASTING Specimen Type: SERUM No comment entered. Ordering Provider: NEHEMIAH BOWERS Report Released Date/Time: Jul 04, 2023 09:50 AM Reporting Lab: [address] [address] Performing Lab: [address] [address] CHOLESTEROL 159 mg/dL TRIGLYCERIDE 76 mg/dL 0-150 LDL calculated 66 mg/dL 0-129 CHOL/HDL 2.0 HDL CHOLESTEROL 78 mg/dL H 40-60 Dec 30, 2023 08:44 AM [place] LIVER FUNCTION Specimen Type: SERUM No comment entered. Ordering Provider: NEHEMIAH BOWERS Report Released Date/Time: Jul 04, 2023 09:50 AM Reporting Lab: [address] [address] Performing Lab: [address] [address] PROTEIN,TOTAL 6.4 g/dL 6.0-8.3 ALBUMIN 4.0 g/dL 3.5-5.0 ALKALINE PHOSPHATASE 64 U/L 40-150 AST 17 U/L 5-34 ALT 19 U/L BILIRUBIN, TOTAL 0.5 mg/dL 0.2-1.2 Dec 30, 2023 08:44 AM [place] BASIC METABOLIC PANEL (fasting) Specime n Type: SERUM No comment entered. Ordering Provider: NEHEMIAH BOWERS Report Released Date/Time: Jul 04, 2023 09:50 AM Reporting Lab: [address] [address] Performing Lab: [address] [address] UREA NITROGEN 13 mg/dL 7-25 GLUCOSE 100 mg/dL 65-100 SODIUM 136 mmol/L 135-145 POTASSIUM 4.5 mmol/L 3.5-5.0 CHLORIDE 102 mmol/L 100-110 CO2 26 meq/L 20-30 CREATININE, Serum 0.96 mg/dL 0.50-1.40 eGFR(CKD-EPI 2020) 83 mL/min >60 Dec 30, 2023 08:44 AM [place] CBC AND DIFF (AUTO) Specimen Type: BLOOD No comment entered. Ordering Provider: NEHEMIAH BOWERS Report Released Date/Time: Jul 04, 2023 09:50 AM Reporting Lab: [address] [address] Performing Lab: [address] [address] WBC 6.84 10*3/uL 4.50-11.00 RBC 4.52 10*6/uL [...] 04, 2023 09:00 AM VA-TOBACCO FORMER USER [place] [facility] Tobacco Use History This section includes a history of the smoking, or tobacco-related health factors, that were collected on or before the date of the Encounter. The data comes from the [place] facility where the Encounter took place. Date/Time Smoking Status/Tobacco Use Comment F roopa Jul 04, 2023 09:00 AM VA-TOBACCO QUIT 15 YRS OR MORE [place]TRL [place] [facility] Mar 14, 2022 03:02 PM VA-TOBACCO FORMER USER [place] [facility] Mar 14, 2022 03:02 PM VA-TOBACCO QUIT 15 YRS OR MORE [place] [facility] [facility] Feb 08, 2021 09:00 AM VA-TOBACCO FORMER USER [place] [place] [facility] Feb 08, 2021 09:00 AM VA-TOBACCO QUIT 15 YRS OR MORE [place] [facility] [place] [facility] October 09, 2019 01:12 PM VA-TOBACCO FORMER USER [place] [place] [facility] October 09, 2019 01:12 PM VA-TOBACCO QUIT 5 TO < 15 YRS [place] [facility] [place] [facility] Advance Directives: All historical and current Section [...] ADVANCE DIRECTIVE BEL ESCALANTE MLKAVIN [facility] Encounter Notes: All associated encounter notes This section contains the clinical notes associated to the Encounter. Date/Time Encounter Note(s) Provider Source Dec 23, 2023 09:03 AM PULMONARY DIAGNOSTIC STUDY CONSULT: LOCAL TITLE: CP PULMONARY FUNCTION TEST STANDARD TITLE: PULMONARY DIAGNOSTIC STUDY CONSULT DATE OF NOTE: DEC 23, 2023@09:03 ENTRY DATE: DEC 23, 2023@09:03:07 AUTHOR: SIMON MOSQUEDA MD EXP COSIGNER: URGENCY: STATUS: COMPLETED PROCEDURE SUMMARY CODE: Abnormal DATE/TIME PERFORMED: DEC 23, 2023@09:02 For complete results please go to [facility]. SPIROMETRY: Normal FVC 3.35 L (102%) After [...] is no significant response to bronchodilator. /robe/ Simon Mosqueda MD Director, [facility]monary [facility] Signed: 12/25/2023 10:32 SIMON MOSQUEDA MD [facility]
--- OUTSIDE RECORDS SUMMARY | 2024-04-28 11:03 | XMS_ITS | Encounter Summary ---
Author Name [facility] Organization [facility] [place] Address [address] [place] [id number] Care Team Providers Care Levi Maker Name Role Phone NEHEMIAH CUEVAS Primary Care [...] Patient's Relationship to Policy Orellana [facility]NA [facility] Aug 11, 2014 [id number] [phone] DHAVAL SHAQ Wagner PATIENT ANA BCBS [facility] MEDICARE SUPPLEMEN [facility] Aug 11, 2014 [id number] DHAVAL SHAQ Wagner PATIENT BCBS OR MEDICARE SUPPLEMEN [facility] Aug 11, 2014 [id number] [phone] DHAVAL SHAQ Wagner [facility] SUPPLEMEN [facility] Aug 11, 2014 [id number] ARCHSTEPHANIA SHAQ Wagner PATIENT BCBS OR MEDICARE SUPPLEMEN [facility] Aug 11, 2014 [id number] ARCHOCTAVIOEA SHAQ Wagner [place] MEDICARE SUPPLEMEN [facility] [place] [place] [facility] Aug 11, 2014 [id number] [phone] SHAQ WONG PATIENT USMANA [facility] (WNR) MEDICARE ADVANTAGE HUMAN A INSUR [place] [facility] Jan 11, 2022 [id number] [phone] ARCHOCTAVIOEA SHAQ Wagner PATIENT USMANA MCR (WNR) MEDICARE ADVANTAGE [facility] (WNR) Jan 11, 2022 [id number] [phone] ARCHAMBEA SHAQ Wagner PATIENT MEDICARE (WNR) MEDICARE () PART A Dec 11, 2014 PART A [id number] ARCHAMBEA SHAQ Wagner PATIENT MEDICARE (WNR) MEDICARE () PART A Aug 11, 2014 PART A [id number] [phone] ARCHAMBEA SHAQ Wagner PATIENT MEDICARE (WNR) MEDICARE () PART B Aug 11, 2014 PART B [id number] ARCHAMBEA SHAQ Wagner PATIENT MEDICARE (WNR) MEDICARE () PART A Aug 11, 2014 PART A [id number] ARCHAMBEA SHAQ Wagner PATIENT MEDICARE (WNR) MEDICARE () PART B Aug 11, 2014 PART B [id number] ARCHAMBEA SHAQ Wagner PATIENT MEDICARE (WNR) MEDICARE () PART A Aug 11, 2014 PART A [id number] ARCHAMBEA SHAQ Wagner PATIENT MEDICARE (WNR) MEDICARE () PART B Aug 11, 2014 PART B [id number] ARCHAMBEA SHAQ Wagner PATIENT MEDICARE (WNR) MEDICARE () PART B Aug 11, 2014 PART B [id number] ARCHAMBEA SHAQ Wagner [facility] (WNR) MEDICARE ADVANTAGE [facility] (WNR) May 13, 2020 [id number] ARCHAMBEA SHAQ Wagner PATIENT Selected Encounter This section includes the information on record at [place] for the Encounter. Date/Time Encounter Type Encounter Description Reason Pro vider Source Dec 06, 2023 12:48 PM Outpatient Encounter PRIMARY CARE/MEDICINE I[facility] Encounter Template Text not used by [place] Plan of Treatment: Future Appointments (+ 6 [...] 23, 2023 07:30 AM AMBULATORY - MEDICINE [place] [facility] [place] [facility] Dec 23, 2023 03:15 PM AMBULATORY - MEDICINE [facility] Jan 28, 2024 08:00 AM AMBULATORY - MEDICINE [place] [facility] [place] [facility] Jan 30, 2024 07:30 AM AMBULATORY MEDICINE [place] [facility] [place] [facility] Mar 06, 2024 08:45 AM AMBULATORY - MEDICINE [place] [facility] [place] [facility] Mar 11, 2024 08:30 AM AMBULATORY - MEDICINE [facility] Mar 16, 2024 08:30 AM AMBULATORY MEDICINE [place] [facility] [place] [facility] Apr 07, 2024 10:00 AM AMBULATORY - MEDICINE [place] [facility] [place] [facility] Apr 20, 2024 08:30 AM AMBULATORY - MEDICINE [facility] Apr 28, 2024 11:00 AM AMBULATORY MEDICINE [place] [facility] [place] [facility] Lab Results: [...] Range Comment Dec 30, 2023 08:44 AM [place] MAGNESIUM Specimen Type: SERUM No comment entered. Ordering Provider: NEHEMIAH BOWERS Report Released Date/Time: Jul 04, 2023 09:50 AM Reporting Lab: [facility] [address] [address] Performing Lab: [facility] [address] [address] MAGNESIUM 1.9 mg/dL 1.6-2.6 Dec 30, 2023 08:44 AM [place] PSA Specimen Type: SERUM No comment entered. Ordering Provider: NEHEMIAH BOWERS Report Released Date/Time: Jul 04, 2023 09:50 AM Reporting Lab: [facility] [address] [address] [address] Performing Lab: [address] [address] PSA 0.26 ng/mL 0.00-4.00 Dec 30, 2023 08:44 AM [place] TSH Specimen Type: SERUM No comment entered. Ordering Provider: NEHEMIAH BOWERS Report Released Date/Time: Jul 04, 2023 09:50 AM Reporting Lab: [facility] [address] [address] Performing Lab: [address] [address] TSH 0.57 u[IU]/mL 0.35-5.00 Dec 30, 2023 08:44 AM [place] HEMOGLOBIN A1C PANEL Specimen Type: BLOOD Comment: [...] Jul 04, 2023 09:50 AM Reporting Lab: [address] [address] Performing Lab: [address] [address] HEMOGLOBIN A1C 4.9 4.0-5.6 Dec 30, 2023 08:44 AM [place] BASIC METABOLIC PANEL (fasting) Specime n Type: SERUM No comment entered. Ordering Provider: NEHEMIAH BOWERS Report Released Date/Time: Jul 04, 2023 09:50 AM Reporting Lab: [facility] [address] [address] Performing Lab: [address] [address] UREA NITROGEN 13 mg/dL 7-25 GLUCOSE 100 mg/dL 65-100 SODIUM 136 mmol/L 135-145 POTASSIUM 4.5 mmol/L 3.5-5.0 CHLORIDE 102 mmol/L 100-110 CO2 26 meq/L 20-30 CREATININE, Serum 0.96 mg/dL 0.50-1.40 eGFR(CKD-EPI 2020) 83 mL/min >60 Dec 30, 2023 08:44 AM [place] LIVER FUNCTION Specimen Type: SERUM No comment entered. Ordering Provider: NEHEMIAH BOWERS Report Released Date/Time: Jul 04, 2023 09:50 AM Reporting Lab: [address] [address] Performing Lab: [address] [address] PROTEIN,TOTAL 6.4 g/dL 6.0-8.3 ALBUMIN 4.0 g/dL 3.5-5.0 ALKALINE PHOSPHATASE 64 U/L 40-150 AST 17 U/L 5-34 ALT 19 U/L BILIRUBIN, TOTAL 0.5 mg/dL 0.2-1.2 Dec 30, 2023 08:44 AM [place] LIPID PANEL FASTING Specimen Type: SERUM No comment entered. Ordering Provider: NEHEMIAH BOWERS Report Released Date/Time: Jul 04, 2023 09:50 AM Reporting Lab: [address] [address] Performing Lab: [address] [address] CHOLESTEROL 159 mg/dL TRIGLYCERIDE 76 mg/dL 0-150 LDL calculated 66 mg/dL 0-129 CHOL/HDL 2.0 HDL CHOLESTEROL 78 mg/dL H 40-60 Dec 30, 2023 08:44 AM [place] CBC AND DIFF (AUTO) Specimen Type: BLOOD No comment entered. Ordering Provider: NEHEMIAH BOWERS Report Released Date/Time: Jul 04, 2023 09:50 AM Reporting Lab: [facility] [address] [address] Performing Lab: [place] [facility] [address] [address] WBC 6.84 10*3/uL 4.50-11.00 RBC 4.52 10*6/uL [...] 04, 2023 09:00 AM VA-TOBACCO FORMER USER [facility] WSN [facility] Tobacco Use History This section includes a history of the smoking, or tobacco-related health factors, that were collected on or before the date of the Encounter. The data comes from the [place] facility where the Encounter took place. Date/Time Smoking Status/Tobacco Use Comment Joselyn blas Jul 04, 2023 09:00 AM VA-TOBACCO QUIT 15 YRS OR MORE [place] [facility] [place] [facility] Mar 14, 2022 03:02 PM VA-TOBACCO FORMER USER [place] [facility] [place] [facility] Mar 14, 2022 03:02 PM VA-TOBACCO QUIT 15 YRS OR MORE [facility] [place] [facility] Feb 08, 2021 09:00 AM VA-TOBACCO FORMER USER [place] [facility] [place] [facility] Feb 08, 2021 09:00 AM VA-TOBACCO QUIT 15 YRS OR MORE [facility] [place] [facility] October 09, 2019 01:12 PM VA-TOBACCO FORMER USER [place] [facility] [place] [facility] October 09, 2019 01:12 PM VA-TOBACCO QUIT 5 TO < 15 YRS [facility] Advance Directives: All historical and current Section Date Range: From patient's date of to the date document was created. This section includes ALL of a patient's completed or amended [place] Advance and Rescinded Directives. The entries below [...] Encounter. Date/Time Encounter Note(s) Provider Source Dec 06, 2023 12:48 PM NURSING NONVA NOTE : LOCAL TITLE: OUTSIDE LAB RESULTS STANDARD TITLE: NURSING NONVA NOTE DATE OF NOTE: DEC 06, 2023@12:48 ENTRY DATE: DEC 06, 2023@12:48:14 AUTHOR: SANDRO DEAN COSIGNER: URGENCY: STATUS: COMPLETED Outside Lab Values [facility] Ordered by Judah Patel MD Date of Lab draw: Nov Notated Outside Lab Values: OTHER LAB VALUES: PSA 0.3 /es/ Sandro Dean RN Registered Nurse Signed: 12/06/2023 12:49 SANDRO DEAN [place]
--- OUTSIDE RECORDS SUMMARY | 2024-04-28 11:04 | XMS_ITS | Encounter Summary ---
Author Name [facility] [place] [facility] [place] Address [address] [place] [address] Care Team Providers Care Cork Sorter Name Role Phone NEHEMIAH CUEVAS Primary Care [...] Patient's Relationship to Policy Orellana ANA [facility] Aug 11, 2014 [id number] DHAVAL SHAQ Wagner PATIENT [facility] MED[facility] SUPPLEMEN ARTEMIO [facility] Aug 11, 2014 [id number] DHAVAL SHAQ Wagner [facility]PPLEMEN ARTEMIO MEDEX 2 Aug 11, 2014 [id number] DHAVAL SHAQ Wagner [facility] SUPPLEMEN ARTEMIO MEDEX 2 Aug 11, 2014 [id number] DHAVAL SHAQ [place]IENT [place] SUPP[place] ARTEMIO MEDEX 2 Aug 11, 2014 [id number] [phone] AR[place]A SHAQ Wagner PATIENT [facility] MEDICARE SUPPLEMEN [facility] [place] [place] [facility] Aug 11, 2014 [id number] [phone] LAURIEEA SHAQ Wagner PATIENT [facility] ([place]) MEDICARE ADVANTAGE [facility] ([place]NR) Jan 11, 2022 [id number] [phone] ARCHAMBEA SHAQ Wagner PATIENT [facility] ([place]) MEDICARE ADVANTAGE HUMAN A INSUR ANCE COM Jan 11, 2022 [id number] [phone] ARCHAMBEA USHAQ PATIENT MEDICARE ([place]) MEDICARE () PART A Dec 11, 2014 PART A [id number] [phone] ARCHAMBEA U,SHAQ PATIENT MEDICARE ([place]) MEDICARE () PART A Aug 11, 2014 PART A [id number] [phone] ARCHAMBEA Bernard,SHAQ PATIENT MEDICARE [place] MEDICARE () PART B Aug 11, 2014 PART B [id number] ARCHAMBEA SHAQ Wagner PATIENT MEDICARE [place] MEDICARE () PART A Aug 11, 2014 PART A [id number] [phone] ARCHAMBEA U,SHAQ PATIENT MEDICARE ([place] MEDICARE () PART B Aug 11, 2014 PART B [id number] ARCHAMBEA U,SHAQ PATIENT MEDICARE ([place]) MEDICARE () PART B Aug 11, 2014 PART B [id number] ARCHAMBEA U,SHAQ PATIENT MEDICARE [place] MEDICARE () PART A Aug 11, 2014 PART A [id number] ARCHAMBEA U,SHAQ PATIENT MEDICARE [place] MEDICARE () PART B Aug 11, 2014 PART B [id number] [phone] ARCHAMBEA SHAQ Wagner PATIENT [facility] ([place]) MEDICARE ADVANTAGE [facility] ([place]NR) May 13, 2020 [id number] ARCHAMBEA SHAQ Wagner PATIENT Selected Encounter This section includes the information on record at [place] for the Encounter. Date/Time Encounter Type Encounter Description Reason Pro vider Source Jan 14, 2024 08:53 AM Outpatient Encounter ADMIN PAT ACTIVTIES (MASNONCT) IHE Encounter Template Text not used by [place] Plan of Treatment: Future Appointments (+ 6 months) and Future Tests (+/- 45 days) The Plan of Treatment section includes future care activities for the patient from all [place] [facility] This section includes future appointments and future orders which are active, pending or scheduled. Future Appointments This section includes appointments that were scheduled to occur 6 months from the date of the Encounter, up to a maximum of 20 appointments. The data comes from all [facility]. Appointment Date/Time Appointment Type Appointme nt Facility Name Jan 28, 2024 08:00 AM [place] [facility] [place] [facility] Jan 30, 2024 07:30 AM [place] [facility] [place] [facility] Mar 06, 2024 08:45 AM [place] [facility] [place] [facility] Mar 11, 2024 08:30 AM [facility]ICINE [facility] Mar 16, 2024 08:30 AM [place] [facility] [place] [facility] Apr 07, 2024 10:00 AM [place] [facility] [place] [facility] Apr 20, 2024 08:30 AM [facility]ORY [facility]ICINE [facility] Apr 28, 2024 11:00 AM [place] [facility] [place] [facility] Jun 22, 2024 08:30 AM AM[place]ULATORY - NONE [place] [facility] [place] [facility] Jul 10, 2024 09:00 AM AMBULATORY - MEDICINE [facility] Active, Pending, and Scheduled Orders This section includes a listing of several types of active, pending, and scheduled orders, including clinic medications orders, diagnostic test orders, procedure orders and consult orders; where the start date of the order is 45 days before the date of the Encounter or 45 days after the date of theEncounter. The data comes from all [facility]. Test Date/Time Test Type Test Details Facility Name Jan 29, 2024 06:05 PM Consult Order COMMUNITY CARE-CARDIOLOGY Cons Assessment Specialist's Choice [facility] Lab Results: +/- 30 days of the encounter This section includes the Chemistry and Hematology Lab Results on record with [place] for the patient. Radiology Reports and Pathology Reports are provided separately, in subsequent sections. Lab Results This section contains the Chemistry/Hematology Results that were resulted 30 days before or 30 daysafter the date of the Encounter. Date/Time Source Result Type Result - Unit Interpretation Reference Range Comment Jan 24, 2024 08:23 AM [facility] METHADONE SCREEN Specimen Type: URINE Comment: THIAGO test are qualitative, any L or H flags only indicate a [place] alert was sent. Ordering Provider: NEHEMIAH DAVIES Report Released Date/Time: Jan 22, 2024 11:28 AM Reporting Lab: [facility] [address] [facility] [address] Performing Lab: [facility] [address] [facility] [address] METHADONE SCREEN None detected(Nega tive) L Negative Jan 24, 2024 08:23 AM [facility] ALCOHOL, ETHYL URINE PANEL Specimen Type: URINE Comment: Urine with [...] may have been adulterated. Ordering Provider: NEHEMIAH DAVIES Report Released Date/Time: Jan 22, 2024 11:28 AM Reporting Lab: [facility] [address] [facility] [address] Performing Lab: [address] [address] ALCOHOL, ETHYL URINE NONE-DETECTED mg/dL NONE-DETEC SIRI, cutoff = 10 mg/dL PH, THIAGO 5.8 [pH] 4-10 CREATININE, THIAGO 29.33 mg/dL >20 SP.GRAVITY, THIAGO 1.009 1.00 3-1.02 0 Jan 24, 2024 08:23 AM [facility] AMPHETAMINES SCREEN PANEL Specimen Type: URINE Comment: Urine [...] may have been adulterated. Ordering Provider: NEHEMIAH DAVIES Report Released Date/Time: Jan 22, 2024 11:28 AM Reporting Lab: [address] [address] Performing Lab: [address] [address] AMPHETAMINES SCREEN NONE-DETECTED None-Detec siri, Cutoff = 1000 ng/mL PH, THIAGO 5.8 [pH] 4-10 CREATININE, THIAGO 29.33 mg/dL >20 SP.GRAVITY, THIAGO 1.009 1.00 3-1.02 0 Jan 24, 2024 08:23 AM [facility] FENTANYL SCREEN PANEL Specimen Type: URINE Comment: [...] 10 and 11 may have been adulterated. FENTANYL CONFIRMATION NOT SENT BY LAB. Ordering Provider: NEHEMIAH DAVIES Report Released Date/Time: Jan 22, 2024 11:28 AM Reporting Lab: [address] [address] Performing Lab: [address] [address] FENTANYL SCREEN NONE-DETECTE D ng/mL Negative: Cutoff = 1.00 ng/mL PH, THIAGO 5.7 [pH] 4-10 CREATININE, THIAGO 29.05 mg/dL >20 SP.GRAVITY, THIAGO 1.010 1.00 3-1.02 0 Jan 24, 2024 08:23 AM [facility] BENZODIAZEPINES SCREEN PANEL Specimen Type: URINE Comment: Urine [...] may have been adulterated. Ordering Provider: NEHEMIAH DAVIES Report Released Date/Time: Jan 22, 2024 11:28 AM Reporting Lab: [address] [address] Performing Lab: [address] [address] BENZODIAZEPINES SCREEN NONE-DETECTED None-Detec siri, Cutoff = 200 ng/mL PH, THIAGO 5.8 [pH] 4-10 CREATININE, THIAGO 29.33 mg/dL >20 SP.GRAVITY, THIAGO 1.009 1.00 3-1.02 0 Jan 24, 2024 08:23 AM [facility] CANNABINOIDS SCREEN PANEL Specimen Type: URINE Comment: Urine [...] may have been adulterated. Ordering Provider: NEHEMIAH DAVIES Report Released Date/Time: Jan 22, 2024 11:28 AM Reporting Lab: [address] [address] Performing Lab: [address] [address] CANNABINOIDS SCREEN POSITIVE HH None-Detec siri,Cutoff = 50 ng/mL PH, THIAGO 5.8 [pH] 4-10 CREATININE, THIAGO 29.33 mg/dL >20 SP.GRAVITY, THIAGO 1.009 1.00 3-1.02 0 Jan 24, 2024 08:23 AM [facility] COCAINE SCREEN PANEL Specimen Type: URINE Comment: [...] may have been adulterated. Ordering Provider: NEHEMIAH DAVIES Report Released Date/Time: Jan 22, 2024 11:28 AM Reporting Lab: [facility] [address] [facility] [address] Performing Lab: [address] [address] COCAINE SCREEN NONE-DETECTED N one-Detec siri,Cutoff = 300 ng/mL PH, THIAGO 5.8 [pH] 4-10 CREATININE, THIAGO 29.33 mg/dL >20 SP.GRAVITY, THIAGO 1.009 1.00 3-1.02 0 Jan 24, 2024 08:23 AM [facility] BUPRENORPHINE SCREEN PANEL Specimen Type: URINE Comment: Urine [...] may have been adulterated. Ordering Provider: NEHEMIAH DAVIES Report Released Date/Time: Jan 22, 2024 11:28 AM Reporting Lab: [address] [address] Performing Lab: [address] [address] BUPRENORPHINE (URINE) NONE-DETECTED None Detected, Cutoff = 10.0 ng/mL PH, THIAGO 5.8 [pH] 4-10 CREATININE, THIAGO 29.33 mg/dL >20 SP.GRAVITY, THIAGO 1.009 1.00 3-1.02 0 Jan 24, 2024 08:23 AM [facility] OPIATES SCREEN PANEL Specimen Type: URINE Comment: [...] may have been adulterated. Ordering Provider: NEHEMIAH DAVIES Report Released Date/Time: Jan 22, 2024 11:28 AM Reporting Lab: [facility] [address] [facility] [address] Performing Lab: [address] [address] OPIATES SCREEN NONE-DETECTED N one-Detec siri, Cutoff = 300 ng/mL PH, THIAGO 5.8 [pH] 4-10 CREATININE, THIAGO 29.33 mg/dL >20 SP.GRAVITY, THIAGO 1.009 1.00 3-1.02 0 Jan 24, 2024 08:23 AM [facility] OXYCODONE SCREEN PANEL Specimen Type: URINE Comment: [...] may have been adulterated. Ordering Provider: NEHEMIAH DAVIES Report Released Date/Time: Jan 22, 2024 11:28 AM Reporting Lab: [facility] [address] [address] Performing Lab: [address] [address] OXYCODONE SCREEN POSITIVE HH Non e-Detec siri, Cutoff = 100 ng/mL PH, THIAGO 5.8 [pH] 4-10 CREATININE, THIAGO 29.33 mg/dL >20 SP.GRAVITY, THIAGO 1.009 1.00 3-1.02 0 Dec 30, 2023 08:44 AM [facility] MAGNESIUM Specimen Type: SERUM No comment entered. Ordering Provider: NEHEMIAH DAVIES Report Released Date/Time: Jul 04, 2023 09:50 AM Reporting Lab: [facility] [address] [address] Performing Lab: [facility] [address] [address] MAGNESIUM 1.9 mg/dL 1.6-2.6 Dec 30, 2023 08:44 AM [facility] PSA Specimen Type: SERUM No comment entered. Ordering Provider: NEHEMIAH DAVIES Report Released Date/Time: Jul 04, 2023 09:50 AM Reporting Lab: [facility] [address] [address] Performing Lab: [facility] [address] [address] PSA 0.26 ng/mL 0.00-4.00 Dec 30, 2023 08:44 AM [facility] TSH Specimen Type: SERUM No comment entered. Ordering Provider: NEHEMIAH DAVIES Report Released Date/Time: Jul 04, 2023 09:50 AM Reporting Lab: [facility] [address] [address] Performing Lab: [facility] [address] [address] TSH 0.57 u[IU]/mL 0.35-5.00 Dec 30, 2023 08:44 AM [facility] HEMOGLOBIN A1C PANEL Specimen Type: BLOOD Comment: Values obtained from A1C measurements can vary. For atypical A1C assays, a reported value of 7.0 could actually be between 6.72 and 7.28 if measured by a reference method. A reported value of 9.0 could actually be between 8.73 and 9.27. Ref: http://www.ng sp.org/CAPdat a.asp Ordering Provider: NEHEMIAH DAVIES Report Released Date/Time: Jul 04, 2023 09:50 AM Reporting Lab: [facility] [address] [address] Performing Lab: [address] [address] HEMOGLOBIN A1C 4.9 4.0-5.6 Dec 30, 2023 08:44 AM [facility] BASIC METABOLIC PANEL (fasting) Specime n Type: SERUM No comment entered. Ordering Provider: NEHEMIAH DAVIES Report Released Date/Time: Jul 04, 2023 09:50 AM Reporting Lab: [address] [address] Performing Lab: [address] [address] UREA NITROGEN 13 mg/dL 7-25 GLUCOSE 100 mg/dL 65-100 SODIUM 136 mmol/L 135-145 POTASSIUM 4.5 mmol/L 3.5-5.0 CHLORIDE 102 mmol/L 100-110 CO2 26 meq/L 20-30 CREATININE, Serum 0.96 mg/dL 0.50-1.40 eGFR(CKD-EPI 2020) 83 mL/min >60 Dec 30, 2023 08:44 AM [facility] LIVER FUNCTION Specimen Type: SERUM No comment entered. Ordering Provider: NEHEMIAH DAVIES Report Released Date/Time: Jul 04, 2023 09:50 AM Reporting Lab: [address] [address] Performing Lab: [address] [address] PROTEIN,TOTAL 6.4 g/dL 6.0-8.3 ALBUMIN 4.0 g/dL 3.5-5.0 ALKALINE PHOSPHATASE 64 U/L 40-150 AST 17 U/L 5-34 ALT 19 U/L BILIRUBIN, TOTAL 0.5 mg/dL 0.2-1.2 Dec 30, 2023 08:44 AM [facility] LIPID PANEL FASTING Specimen Type: SERUM No comment entered. Ordering Provider: NEHEMIAH DAVIES Report Released Date/Time: Jul 04, 2023 09:50 AM Reporting Lab: [facility] [address] [facility] [address] Performing Lab: [facility] [address] [facility] [address] CHOLESTEROL 159 mg/dL TRIGLYCERIDE 76 mg/dL 0-150 LDL calculated 66 mg/dL 0-129 CHOL/HDL 2.0 HDL CHOLESTEROL 78 mg/dL H 40-60 Dec 30, 2023 08:44 AM [facility] CBC AND DIFF (AUTO) Specimen Type: BLOOD No comment entered. Ordering Provider: NEHEMIAH DAVIES Report Released Date/Time: Jul 04, 2023 09:50 AM Reporting Lab: [address] [address] Performing Lab: [address] [address] WBC 6.84 10*3/uL 4.50-11.00 RBC 4.52 10*6/uL [...] and tobacco- related health factors from the [place] facility where the Encounter took place. Current Smoking Status This section includes the most current smoking, or tobacco-related health factor, from the [place] facility where the Encounter took place. Date/Time Current Smoking Status Comment Facil ity Jul 04, 2023 09:00 AM VA-TOBACCO QUIT 15 YRS OR MORE [facility] Tobacco Use History This section includes a history of the smoking, or tobacco-related health factors, that were collected on or before the date of the Encounter. The data comes from the [place] facility where the Encounter took place. Date/Time Smoking Status/Tobacco Use Comment F acility Jul 04, 2023 09:00 AM VA-TOBACCO QUIT 15 YRS OR MORE [facility] [facility] [place] [facility] Mar 14, 2022 03:02 PM VA-TOBACCO FORMER USER [facility] [place] [facility] Mar 14, 2022 03:02 PM VA-TOBACCO QUIT 15 YRS OR MORE [facility] [place] [facility] Feb 08, 2021 09:00 AM VA-TOBACCO FORMER USER [facility] [facility] [place] [facility] Feb 08, 2021 09:00 AM VA-TOBACCO QUIT 15 YRS OR MORE [facility] [facility] [place] [facility] October 09, 2019 01:12 PM VA-TOBACCO FORMER USER [facility] [facility] [place] [facility] October 09, 2019 01:12 PM VA-TOBACCO QUIT 5 TO < 15 YRS [facility] [facility] [place] [facility] Advance Directives: All historical and current Section Date Range: From patient's date of to the date document was created. This section includes ALL of a patient's completed or amended [place] Advance and Rescinded Directives. The entries below indicate that a directive exists for the patient, but an actual copy is not included with this document. The data comes from all [place] facilities. Date Advance Directives Provider Source Feb 21, 2021 ADVANCE DIRECTIVE BEL ESCALANTE [facility] Encounter Notes: All associated encounter notes This section contains the clinical notes associated to the Encounter. Date/Time Encounter Note(s) Provider Source Jan 16, 2024 04:23 PM ADDENDUM: LOCAL TITLE: Addendum STANDARD TITLE: ADDENDUM DATE OF NOTE: JAN 16, 2024@16:23:47 ENTRY DATE: JAN 16, 2024@16:23:48 AUTHOR: CECILIO AL COSIGNER: URGENCY: STATUS: COMPLETED Per PFT Report in [facility]: SPIROMETRY: Normal FVC 3.35 L (102%) After [...] There is no significant response to bronchodilator. ----- Forwarding to covering provider to please advise. /robe/ CECILIO AL RN REGISTERED NURSE Signed: 01/16/2024 16:25 Receipt Acknowledged By: 01/21/2024 07:51 /robe/ WENDY CARDONA NP NURSE PRACTITIONER for NEHEMIAH CUEVAS === --- Original Document --- 01/14/24 CCC: SCHEDULING ADMINISTRATION: Patient Demographics Patient Name: SHAQ GREGORIO Patient Primary Phone: [phone] Patient Primary Address: [address] [place] [address] Patient : 1950 Patient Age: 73 Caller/Recipient Relation to Patient: Self Administrative Administrative Note Reason: Lab / Imaging Results Administrative Note Comments: PATIENT HAD BREATHING TESTING DONE RECENTLY AND WOULD LIKE A CALL BACK FROM PCP TO GO OVER RESULTS. PLEASE ASSIST. IMPORTANT: This note was created by [facility] Clinical Contact Center staff. Please do not alert the staff member by adding them as a signer for future communications. Alerts are not monitored by this user. /reba PERDUE Signed: 01/14/2024 08:53 Receipt Acknowledged By: 01/17/2024 15:57 /robe/ RAJIV CARRASCO LPN LPN for NATA MULLIGAN 01/16/2024 16:26 /robe/ CECILIO AL RN REGISTERED NURSE CECILIO AL [facility] Jan 14, 2024 08:53 AM ADMINISTRATIVE NOTE: LOCAL TITLE: CCC: SCHEDULING ADMINISTRATION STANDARD TITLE: ADMINISTRATIVE NOTE DATE OF NOTE: JAN 14, 2024@08:53:21 ENTRY DATE: JAN 14, 2024@08:53:21 AUTHOR: CHAN PERDUE EXP COSIGNER: URGENCY: STATUS: COMPLETED CCC: SCHEDULING ADMINISTRATION Has ADDENDA Patient Demographics Patient Name: SHAQ GREGORIO Patient Primary Phone: [phone] Patient Primary Address: [address] [place] [address] Patient : 1950 Patient Age: 73 Caller/Recipient Relation to Patient: Self Administrative Administrative Note Reason: Lab / Imaging Results Administrative Note Comments: PATIENT HAD BREATHING TESTING DONE RECENTLY AND WOULD LIKE A CALL BACK FROM PCP TO GO OVER RESULTS. PLEASE ASSIST. IMPORTANT: This note was created by [facility] Clinical Contact Center staff. Please do not alert the staff member by adding them as a signer for future communications. Alerts are not monitored by this user. olu PERDUE Signed: 01/14/2024 08:53 Receipt Acknowledged By: 01/17/2024 15:57 /es/ RAJIV CARRASCO LPN LPN for NATA MULLIGAN 01/16/2024 16:26 /es/ CECILIO AL RN REGISTERED NURSE 01/16/2024 ADDENDUM STATUS: COMPLETED Per PFT Report in [facility]: SPIROMETRY: Normal FVC 3.35 L (102%) After [...] There is no significant response to bronchodilator. ----- Forwarding to covering provider to please advise. /robe/ CECILIO AL RN REGISTERED NURSE Signed: 01/16/2024 16:25 Receipt Acknowledged By: * AWAITING SIGNATURE * LANCE CUEVAS AILEEN [facility]
--- OUTSIDE RECORDS SUMMARY | 2024-04-28 11:04 | XMS_ITS | Encounter Summary ---
Author Name [facility] Organization [facility] [place] Address [address] [place] [id number] Care Team Providers Care Precast Molder Name Role Phone NEHEMIAH CUEVAS Primary Care [...] Relationship to Policy Orellana ANA [facility] Aug 11, 2014 [id number] DHAVAL SHAQ Wagner PATIENT [facility] SUPPLEMEN ARTEMIO [facility] Aug 11, 2014 [id number] DHAVAL SHAQ Wagner [facility] SUPP[facility]MEN ARTEMIO MEDEX 2 Aug 11, 2014 [id number] DHAVAL SHAQ Wagner [place] SUPPLEMEN ARTEMIO MEDEX 2 Aug 11, 2014 [id number] ARCHSTEPHANIA SHAQ Wagner PATIENT [place] SUPPLEMEN ARTEMIO MEDEX 2 Aug 11, 2014 [id number] ARCHAMBEA SHAQ Wagner PATIENT [facility] MEDICARE SUPPLEMEN [facility] [place] [facility] Aug 11, 2014 [id number] ARCHOCTAVIOEA SHAQ Wagner PATIENT USMANA [facility] (WNR) MEDICARE ADVANTAGE HUMAN A INSUR [facility] Jan 11, 2022 [id number] [phone] ARCHOCTAVIOEA SHAQ Wagner PATIENT USMANA [facility] (WNR) MEDICARE ADVANTAGE [facility] (WNR) Jan 11, 2022 [id number] [phone] ARCHAMBEA U,SHAQ PATIENT MEDICARE (WNR) MEDICARE () PART A Dec 11, 2014 PART A [id number] ARCHAMBEA U,SHAQ PATIENT MEDICARE (WNR) MEDICARE () PART B Aug 11, 2014 PART B [id number] ARCHAMBEA U,SHAQ PATIENT MEDICARE (WNR) MEDICARE () PART A Aug 11, 2014 PART A [id number] ARCHAMBEA U,SHAQ PATIENT MEDICARE (WNR) MEDICARE () PART B Aug 11, 2014 PART B [id number] ARCHAMBEA U,SHAQ PATIENT MEDICARE (WNR) MEDICARE () PART A Aug 11, 2014 PART A [id number] [phone] ARCHAMBEA U,SHAQ PATIENT MEDICARE (WNR) MEDICARE () PART B Aug 11, 2014 PART B [id number] [phone] ARCHAMBEA U,SHAQ PATIENT MEDICARE (WNR) MEDICARE () PART A Aug 11, 2014 PART A [id number] [phone] ARCHAMBEA U,SHAQ PATIENT MEDICARE (WNR) MEDICARE () PART B Aug 11, 2014 PART B [id number] ARCHAMBEA U,SHAQ PATIENT [facility] (WNR) MEDICARE ADVANTAGE [facility] (WNR) May 13, 2020 [id number] ARCHAMBEA U,SHAQ PATIENT Selected Encounter This section includes the information on record at [place] for the Encounter. Date/Time Encounter Type Encounter Description Reason Pro vider Source Dec 30, 2023 08:08 AM Outpatient Encounter TELEPHONE TRIAGE IHE Encounter Template Text not used by MS Plan of Treatment: Future Appointments (+ 6 months) and Future Tests (+/- 45 days) The Plan of Treatment section includes future care activities for the patient [facility] This section includes future appointments and future orders which are active, pending or scheduled. Future Appointments This section includes appointments that were scheduled to occur 6 months from the date of the Encounter, up to a maximum of 20 appointments. The data comes from all [facility]. Appointment Date/Time Appointment Type Appointme nt Facility Name Jan 28, 2024 08:00 AM AMBULATORY - MEDICINE [place] [facility] [place] [facility] Jan 30, 2024 07:30 AM AMBULATORY - MEDICINE [facility] [place] [facility] Mar 06, 2024 08:45 AM AMBULATORY - MEDICINE [place] [facility] [place] [facility] Mar 11, 2024 08:30 AM AMBULATORY - MEDICINE [facility] Mar 16, 2024 08:30 AM AMBULATORY - MEDICINE [facility] [place] [facility] Apr 07, 2024 10:00 AM AMBULATORY - MEDICINE [facility] [place] [facility] Apr 20, 2024 08:30 AM AMBULATORY - MEDICINE [facility] Apr 28, 2024 11:00 AM AMBULATORY - MEDICINE [place] [facility] [place] [facility] Jun 22, 2024 08:30 AM AMBULATORY - [facility] [place] [facility] Active, Pending, and Scheduled Orders This section includes a listing of several types of active, pending, and scheduled orders, including clinic medications orders, diagnostic test orders, procedure orders and consult orders; where the start date of the order is 45 days before the date of the Encounter or 45 days after the date of theEncounter. The data comes from all [facility]. Test Date/Time Test Type Test Details Facility Name Jan 29, 2024 06:05 PM Consult Order [facility] Cons [employer] [facility] Lab Results: +/- 30 days of the encounter This section includes the Chemistry and Hematology Lab Results on record with MS for the patient. Radiology Reports and Pathology Reports are provided separately, in subsequent sections. Lab Results This section contains the Chemistry/Hematology Results that were resulted 30 days before or 30 daysafter the date of the Encounter. Date/Time Source Result Type Result - Unit Interpretation Reference Range Comment Jan 24, 2024 08:23 AM [facility] METHADONE SCREEN Specimen Type: URINE Comment: THIAGO test are qualitative, any L or H flags only indicate a MS alert was sent. Ordering Provider: NEHEMIAH DAVIES Report Released Date/Time: Jan 22, 2024 11:28 AM Reporting Lab: [facility] [address] [address] Performing Lab: [facility] [address] [facility] [address] METHADONE SCREEN None detected(Nega tive) L Negative Jan 24, 2024 08:23 AM [facility] ALCOHOL, ETHYL URINE PANEL Specimen Type: URINE [...] 2024 11:28 AM Reporting Lab: [facility] [address] [facility] [address] Performing Lab: [address] [address] ALCOHOL, ETHYL URINE NONE-DETECTED mg/dL NONE-DETEC SIRI, cutoff = 10 mg/dL PH, THIAGO 5.8 [pH] 4-10 CREATININE, THIAGO 29.33 mg/dL >20 SP.GRAVITY, THIAGO 1.009 1.00 3-1.02 0 Jan 24, 2024 08:23 AM [facility] AMPHETAMINES SCREEN PANEL Specimen Type: URINE Comment: [...] Jan 22, 2024 11:28 AM Reporting Lab: [address] [address] Performing Lab: [address] [address] AMPHETAMINES SCREEN NONE-DETECTED None-Detec siri, Cutoff = 1000 ng/mL PH, THIAGO 5.8 [pH] 4-10 CREATININE, THIAGO 29.33 mg/dL >20 SP.GRAVITY, THIAGO 1.009 1.00 3-1.02 0 Jan 24, 2024 08:23 AM [facility] FENTANYL SCREEN PANEL Specimen Type: URINE Comment: [...] Jan 22, 2024 11:28 AM Reporting Lab: [address] [address] Performing Lab: [address] [address] FENTANYL SCREEN NONE-DETECTE D ng/mL Negative: Cutoff = 1.00 ng/mL PH, THIAGO 5.7 [pH] 4-10 CREATININE, THIAGO 29.05 mg/dL >20 SP.GRAVITY, THIAGO 1.010 1.00 3-1.02 0 Jan 24, 2024 08:23 AM [facility] BENZODIAZEPINES SCREEN PANEL Specimen Type: URINE Comment: [...] Jan 22, 2024 11:28 AM Reporting Lab: [address] [address] Performing Lab: [address] [address] BENZODIAZEPINES SCREEN NONE-DETECTED None-Detec siri, Cutoff = 200 ng/mL PH, THIAGO 5.8 [pH] 4-10 CREATININE, THIAGO 29.33 mg/dL >20 SP.GRAVITY, THIAGO 1.009 1.00 3-1.02 0 Jan 24, 2024 08:23 AM [facility] BUPRENORPHINE SCREEN PANEL Specimen Type: URINE Comment: [...] Jan 22, 2024 11:28 AM Reporting Lab: [address] [address] Performing Lab: [address] [address] BUPRENORPHINE (URINE) NONE-DETECTED None Detected, Cutoff = 10.0 ng/mL PH, THIAGO 5.8 [pH] 4-10 CREATININE, THIAGO 29.33 mg/dL >20 SP.GRAVITY, THIAGO 1.009 1.00 3-1.02 0 Jan 24, 2024 08:23 AM [facility] CANNABINOIDS SCREEN PANEL Specimen Type: URINE Comment: [...] Jan 22, 2024 11:28 AM Reporting Lab: [address] [address] Performing Lab: [address] [address] CANNABINOIDS SCREEN POSITIVE HH None-Detec siri,Cutoff = 50 ng/mL PH, THIAGO 5.8 [pH] 4-10 CREATININE, THIAGO 29.33 mg/dL >20 SP.GRAVITY, THIAGO 1.009 1.00 3-1.02 0 Jan 24, 2024 08:23 AM [facility] COCAINE SCREEN PANEL Specimen Type: URINE Comment: [...] Jan 22, 2024 11:28 AM Reporting Lab: [address] [address] Performing Lab: [address] [address] COCAINE SCREEN NONE-DETECTED N one-Detec siri,Cutoff = 300 ng/mL PH, THIAGO 5.8 [pH] 4-10 CREATININE, THIAGO 29.33 mg/dL >20 SP.GRAVITY, THIAGO 1.009 1.00 3-1.02 0 Jan 24, 2024 08:23 AM [facility] OPIATES SCREEN PANEL Specimen Type: URINE Comment: [...] Jan 22, 2024 11:28 AM Reporting Lab: [address] [address] Performing Lab: [address] [address] OPIATES SCREEN NONE-DETECTED N one-Detec siri, Cutoff = 300 ng/mL PH, THIAGO 5.8 [pH] 4-10 CREATININE, THIAGO 29.33 mg/dL >20 SP.GRAVITY, THIAGO 1.009 1.00 3-1.02 0 Jan 24, 2024 08:23 AM [facility] OXYCODONE SCREEN PANEL Specimen Type: URINE Comment: [...] Jan 22, 2024 11:28 AM Reporting Lab: [address] [address] Performing Lab: [address] [address] OXYCODONE SCREEN POSITIVE HH Non e-Detec siri, Cutoff = 100 ng/mL PH, THIAGO 5.8 [pH] 4-10 CREATININE, THIAGO 29.33 mg/dL >20 SP.GRAVITY, THIAGO 1.009 1.00 3-1.02 0 Dec 30, 2023 08:44 AM [facility] PSA Specimen Type: SERUM No comment entered. Ordering Provider: NEHEMIAH DAVIES Report Released Date/Time: Jul 04, 2023 09:50 AM Reporting Lab: [facility] [address] [facility] [address] Performing Lab: [facility] [address] [address] PSA 0.26 ng/mL 0.00-4.00 Dec 30, 2023 08:44 AM [facility] MAGNESIUM Specimen Type: SERUM No comment entered. Ordering Provider: NEHEMIAH DAVIES Report Released Date/Time: Jul 04, 2023 09:50 AM Reporting Lab: [facility] [address] [facility] [address] Performing Lab: [facility] [address] [address] MAGNESIUM 1.9 mg/dL 1.6-2.6 Dec 30, 2023 08:44 AM [facility] TSH Specimen Type: SERUM No comment entered. Ordering Provider: NEHEMIAH DAVIES Report Released Date/Time: Jul 04, 2023 09:50 AM Reporting Lab: [facility] [address] [facility] [address] Performing Lab: [facility] [address] TSH 0.57 u[IU]/mL 0.35-5.00 Dec 30, 2023 08:44 AM [facility] HEMOGLOBIN A1C PANEL Specimen Type: BLOOD Comment: [...] Jul 04, 2023 09:50 AM Reporting Lab: [facility] [address] [address] Performing Lab: [facility] [address] [address] HEMOGLOBIN A1C 4.9 4.0-5.6 Dec 30, 2023 08:44 AM [facility] LIPID PANEL FASTING Specimen Type: SERUM No comment entered. Ordering Provider: NEHEMIAH DAVIES Report Released Date/Time: Jul 04, 2023 09:50 AM Reporting Lab: [address] [address] Performing Lab: [address] [address] CHOLESTEROL 159 mg/dL TRIGLYCERIDE 76 mg/dL 0-150 LDL calculated 66 mg/dL 0-129 CHOL/HDL 2.0 HDL CHOLESTEROL 78 mg/dL H 40-60 Dec 30, 2023 08:44 AM [facility] BASIC METABOLIC PANEL (fasting) Specime n Type: SERUM No comment entered. Ordering Provider: NEHEMIAH DAVIES Report Released Date/Time: Jul 04, 2023 09:50 AM Reporting Lab: [address] [address] Performing Lab: [address] [address] UREA NITROGEN 13 mg/dL 7-25 GLUCOSE 100 mg/dL 65-100 SODIUM 136 mmol/L 135-145 POTASSIUM 4.5 mmol/L 3.5-5.0 CHLORIDE 102 mmol/L 100-110 CO2 26 meq/L 20-30 CREATININE, Serum 0.96 mg/dL 0.50-1.40 eGFR(CKD-EPI 2020) 83 mL/min >60 Dec 30, 2023 08:44 AM [facility] LIVER FUNCTION Specimen Type: SERUM No comment entered. Ordering Provider: NEHEMIAH DAVIES Report Released Date/Time: Jul 04, 2023 09:50 AM Reporting Lab: [address] [address] Performing Lab: [address] [address] PROTEIN,TOTAL 6.4 g/dL 6.0-8.3 ALBUMIN 4.0 g/dL 3.5-5.0 ALKALINE PHOSPHATASE 64 U/L 40-150 AST 17 U/L 5-34 ALT 19 U/L BILIRUBIN, TOTAL 0.5 mg/dL 0.2-1.2 Dec 30, 2023 08:44 AM [facility] CBC AND DIFF (AUTO) Specimen Type: BLOOD No comment entered. Ordering Provider: NEHEMIAH DAVIES Report Released Date/Time: Jul 04, 2023 09:50 AM Reporting Lab: [facility] [address] [facility] [address] Performing Lab: [facility] [address] [facility] [address] WBC 6.84 10*3/uL 4.50-11.00 RBC 4.52 10*6/uL [...] and tobacco- related health factors from the [place] facility where the Encounter took place. Current Smoking Status This section includes the most current smoking, or tobacco-related health factor, from the [place] facility where the Encounter took place. Date/Time Current Smoking Status Comment Lor ity Jul 04, 2023 09:00 AM MS-TOBACCO QUIT 15 YRS OR MORE [facility] Tobacco Use History This section includes a history of the smoking, or tobacco-related health factors, that were collected on or before the date of the Encounter. The data comes from the [place] facility where the Encounter took place. Date/Time Smoking Status/Tobacco Use Comment Joselyn [email or web address] Jul 04, 2023 09:00 AM VA-TOBACCO QUIT 15 YRS OR MORE [facility] [place] [facility] Mar 14, 2022 03:02 PM VA-TOBACCO FORMER USER [facility] [place] [facility] Mar 14, 2022 03:02 PM VA-TOBACCO QUIT 15 YRS OR MORE [facility] [place] [facility] Feb 08, 2021 09:00 AM VA-TOBACCO FORMER USER [facility] [place] [facility] Feb 08, 2021 09:00 AM VA-TOBACCO QUIT 15 YRS OR MORE [facility] [place] [facility] October 09, 2019 01:12 PM VA-TOBACCO FORMER USER [facility] [place] [facility] October 09, 2019 01:12 PM VA-TOBACCO QUIT 5 TO < 15 YRS [facility] [place] [facility] Advance Directives: All historical and current Section Date Range: From patient's date of to the date document was created. This section includes ALL of a patient's completed or amended [place] Advance and Rescinded Directives. The entries below indicate that a directive exists for the patient, but an actual copy is not included with this document. The data comes from all [place] facilities. Date Advance Directives Provider Source Feb 21, 2021 ADVANCE DIRECTIVE [facility] Encounter Notes: All associated encounter notes This section contains the clinical notes associated to the Encounter. Date/Time Encounter Note(s) Provider Source Dec 30, 2023 08:08 AM ADMINISTRATIVE NOT E: LOCAL TITLE: CCC: SCHEDULING ADMINISTRATION STANDARD TITLE: ADMINISTRATIVE NOTE DATE OF NOTE: DEC 30, 2023@08:08 ENTRY DATE: DEC 30, 2023@08:08:12 AUTHOR: ALLEN PATRICK EXP COSIGNER: URGENCY: STATUS: COMPLETED CCC: SCHEDULING ADMINISTRATION Has ADDENDA Verify Patient Demographics Successfully verified patient demographics [place] requesting a size large back brace for mail. poem writer alerting primary care. /robe/ ALLEN MANCILLA 2 [facility] AMSA Signed: 12/30/2023 08:08 Receipt Acknowledged By: 12/31/2023 10:53 /robe/ CECILIO AL RN REGISTERED NURSE 01/01/2024 07:49 /es/ NATA MULLIGAN LPN LPN 12/31/2023 ADDENDUM STATUS: COMPLETED Prosthetic consult placed as requested. /reba AL RN REGISTERED NURSE Signed: 12/31/2023 10:53 ALLEN PATRICK [facility]
--- OUTSIDE RECORDS SUMMARY | 2024-04-28 11:04 | XMS_ITS | Encounter Summary ---
Author Name [place] Address [address] [place] [address] Care Team Providers Care Marketing Strategy Analyst Name Role Phone NEHEMIAH CUEVAS Primary [...] Name Patient's Relationship to Policy [facility]rellana [facility] Aug 11, 2014 [id number] [phone] DHAVAL SHAQ Wagner PATIENT ANA [facility] MEDICARE SUPPLEMEN ARTEMIO [facility] Aug 11, 2014 [id number] DHAVAL SHAQ Wagner PATIENT [facility] MEDICARE SUPPLEMEN ARTEMIO MEDEX 2 Aug 11, 2014 [id number] DHAVAL SHAQ Wagner PATIENT [facility] MEDICARE SUPPLEMEN ARTEMIO MEDEX 2 Aug 11, 2014 [id number] [phone] ARCHAMBRENATA SHAQ Wagner PATIENT [place] MEDICARE SUPPLEMEN ARTEMIO MEDEX 2 Aug 11, 2014 [id number] [phone] ARCHAMBEA SHAQ Wagner PATIENT [place] MEDICARE SUPPLEMEN [facility] [place] Aug 11, 2014 [id number] [phone] SHAQ WONG PATIENT USMANA [facility] (WNR) MEDICARE ADVANTAGE HUMAN A INSUR [facility] Jan 11, 2022 [id number] [phone] ARCHOCTAVIOEA SHAQ Wagner PATIENT USMANA [facility] (WNR) MEDICARE ADVANTAGE [facility] (WNR) Jan 11, 2022 [id number] [phone] ARCHAMBEA SHAQ Wagner PATIENT MEDICARE (WNR) MEDICARE () PART A Dec 11, 2014 PART A [id number] [phone] ARCHAMBEA SHAQ Wagner PATIENT MEDICARE (WNR) MEDICARE () PART A Aug 11, 2014 PART A [id number] ARCHAMBEA SHAQ Wagner PATIENT MEDICARE (WNR) MEDICARE () PART B Aug 11, 2014 PART B [id number] ARCHAMBEA SHAQ Wagner PATIENT MEDICARE (WNR) MEDICARE () PART A Aug 11, 2014 PART A [id number] ARCHAMBEA SHAQ Wagner PATIENT MEDICARE (WNR) MEDICARE () PART B Aug 11, 2014 PART B [id number] ARCHAMBEA SHAQ Wagner PATIENT MEDICARE (WNR) MEDICARE () PART B Aug 11, 2014 PART B [id number] ARCHAMBEA SHAQ Wagner PATIENT MEDICARE (WNR) MEDICARE () PART A Aug 11, 2014 PART A [id number] [phone] ARCHAMBEA Bernard,SHAQ PATIENT MEDICARE (WNR) MEDICARE () PART B Aug 11, 2014 PART B [id number] ARCHAMBEA SHAQ Wagner PATIENT [facility] (WNR) MEDICARE ADVANTAGE [facility] (WNR) May 13, 2020 [id number] ARCHAMBEA SHAQ Wagner PATIENT Selected Encounter This section includes the information on record at [place] for the Encounter. Date/Time Encounter Type Encounter Description Reason Provider Source Dec 23, 2023 07:30 AM EVALUATION OF WHEEZING PULMONARY FUNCTION ICD-10-CM R06.00 Dyspnea, unspecified Yumiko PRETTY E Encounter Template Text not used by [place] Assessments - Encounter Diagnoses This section includes the primary and secondary diagnoses documented for the Encounter. Date/Time Primary/Secondary Diagnosis Diagnosis Name Provider Source Dec 23, 2023 09:18 AM PRIMARY Dyspnea, unspecified [facility]KH[facility]ERBE [facility] [place] [facility] Plan of Treatment: Future Appointments (+ 6 months) and Future Tests (+/- 45 days) The Plan of Treatment section includes future care activities for the patient from all [place] [facility]. This section includes future appointments and future orders which are active, pending or scheduled. Future Appointments This section includes appointments that were scheduled to occur 6 months from the date of the Encounter, up to a maximum of 20 appointments. The data comes from all [facility]. Appointment Date/Time Appointment Type Appointme nt Facility Name Jan 28, 2024 08:00 AM AM[place]ULATORY [place]ICINE [place] [facility] Jan 30, 2024 07:30 AM AM[place]ULATORY [place]ICINE [place] [facility] Mar 06, 2024 08:45 AM AMBULATORY [place]ICINE [place] [facility] Mar 11, 2024 08:30 AM AMBULATORY - MEDICINE [facility] Mar 16, 2024 08:30 AM AMBULATORY [place] MEDICINE [place] [facility] Apr 07, 2024 10:00 AM AMBULATORY [place]ICINE [place] [facility] Apr 20, 2024 08:30 AM AMBULATORY - MEDICINE [facility] Apr 28, 2024 11:00 AM AM[place]ULATORY [place]ICINE [place] [facility] Jun 22, 2024 08:30 AM [facility] [place] [facility] Active, Pending, and Scheduled Orders This section includes a listing of several types of active, pending, and scheduled orders, including clinic medications orders, diagnostic test orders, procedure orders and consult orders; where the start date of the order is 45 days before the date of the Encounter or 45 days after the date of theEncounter. The data comes from all [facility] treatment facilities. Test Date/Time Test Type Test Details Facility Name Jan 29, 2024 06:05 PM Consult Order [facility]-CARDIOLOG[facility] Cons [facility] [place] Lab Results: +/- 30 days of the [...] Range Comment Dec 30, 2023 08:44 AM [place] PSA Specimen Type: SERUM No comment entered. Ordering Provider: NEHEMIAH BOWERS Report Released Date/Time: Jul 04, 2023 09:50 AM Reporting Lab: [facility]TRN [address] [address] Performing Lab: [facility] [address] [address] PSA 0.26 ng/mL 0.00-4.00 Dec 30, 2023 08:44 AM [place] MAGNESIUM Specimen Type: SERUM No comment entered. Ordering Provider: NEHEMIAH BOWERS Report Released Date/Time: Jul 04, 2023 09:50 AM Reporting Lab: [facility] [address] [facility] [address] Performing Lab: [facility] [address] [address] MAGNESIUM 1.9 mg/dL 1.6-2.6 Dec 30, 2023 08:44 AM [place] TSH Specimen Type: SERUM No comment entered. Ordering Provider: NEHEMIAH BOWERS Report Released Date/Time: Jul 04, 2023 09:50 AM Reporting Lab: [facility]TRN [facility] [address] Performing Lab: [facility] [address] [address] TSH 0.57 u[IU]/mL 0.35-5.00 Dec 30, 2023 08:44 AM [place] HEMOGLOBIN A1C PANEL Specimen Type: BLOOD Comment: [...] Jul 04, 2023 09:50 AM Reporting Lab: [address] [address] Performing Lab: [address] [address] HEMOGLOBIN A1C 4.9 4.0-5.6 Dec 30, 2023 08:44 AM [place] LIPID PANEL FASTING Specimen Type: SERUM No comment entered. Ordering Provider: NEHEMIAH BOWERS Report Released Date/Time: Jul 04, 2023 09:50 AM Reporting Lab: [address] [address] Performing Lab: [address] [address] CHOLESTEROL 159 mg/dL TRIGLYCERIDE 76 mg/dL 0-150 LDL calculated 66 mg/dL 0-129 CHOL/HDL 2.0 HDL CHOLESTEROL 78 mg/dL H 40-60 Dec 30, 2023 08:44 AM [place] LIVER FUNCTION Specimen Type: SERUM No comment entered. Ordering Provider: NEHEMIAH BOWERS Report Released Date/Time: Jul 04, 2023 09:50 AM Reporting Lab: [facility] [address] [address] Performing Lab: [address] [address] PROTEIN,TOTAL 6.4 g/dL 6.0-8.3 ALBUMIN 4.0 g/dL 3.5-5.0 ALKALINE PHOSPHATASE 64 U/L 40-150 AST 17 U/L 5-34 ALT 19 U/L BILIRUBIN, TOTAL 0.5 mg/dL 0.2-1.2 Dec 30, 2023 08:44 AM [place] BASIC METABOLIC PANEL (fasting) Specime n Type: SERUM No comment entered. Ordering Provider: NEHEMIAH BOWERS Report Released Date/Time: Jul 04, 2023 09:50 AM Reporting Lab: [address] [address] Performing Lab: [address] [address] UREA NITROGEN 13 mg/dL 7-25 GLUCOSE 100 mg/dL 65-100 SODIUM 136 mmol/L 135-145 POTASSIUM 4.5 mmol/L 3.5-5.0 CHLORIDE 102 mmol/L 100-110 CO2 26 meq/L 20-30 CREATININE, Serum 0.96 mg/dL 0.50-1.40 eGFR(CKD-EPI 2020) 83 mL/min >60 Dec 30, 2023 08:44 AM [place] CBC AND DIFF (AUTO) Specimen Type: BLOOD No comment entered. Ordering Provider: NEHEMIAH BOWERS Report Released Date/Time: Jul 04, 2023 09:50 AM Reporting Lab: [address] [address] Performing Lab: [address] [address] WBC 6.84 10*3/uL 4.50-11.00 RBC 4.52 10*6/uL [...] 04, 2023 09:00 AM VA-TOBACCO FORMER USER [place] [facility] Tobacco Use History This section includes a history of the smoking, or tobacco-related health factors, that were collected on or before the date of the Encounter. The data comes from the [place] facility where the Encounter took place. Date/Time Smoking Status/Tobacco Use Comment F ro[place] Jul 04, 2023 09:00 AM VA-TOBACCO QUIT 15 YRS OR MORE [place] [facility] Mar 14, 2022 03:02 PM VA-TOBACCO FORMER USER [place] [facility] Mar 14, 2022 03:02 PM VA-TOBACCO QUIT 15 YRS OR MORE [place] [facility] [place] [facility] Feb 08, 2021 09:00 AM VA-TOBACCO FORMER USER [place] [facility] Feb 08, 2021 09:00 AM VA-TOBACCO QUIT 15 YRS OR MORE [place] [facility] [facility] October 09, 2019 01:12 PM VA-TOBACCO FORMER USER [place] [facility] October 09, 2019 01:12 PM VA-TOBACCO QUIT 5 TO < 15 YRS [place] [facility] Advance Directives: All historical and [...] 2021 ADVANCE DIRECTIVE BEL ESCALANTE [facility] Encounter Notes: All associated encounter notes This section contains the clinical notes associated to the Encounter. Date/Time Encounter Note(s) Provider Source Dec 23, 2023 09:17 AM RESPIRATORY THERAP Y NOTE: LOCAL TITLE: RESPIRATORY THERAPY NOTE(BLANK) STANDARD TITLE: RESPIRATORY THERAPY NOTE DATE OF NOTE: DEC 23, 2023@09:17 ENTRY DATE: DEC 23, 2023@09:17:30 AUTHOR: CASANDRA PRETTY EXP COSIGNER: URGENCY: STATUS: COMPLETED [place] with a diagnosis of dyspnea on exertion came in today for PFTs. PFTs were completed and [place] tolerated procedure well. [place] was advised that the results will be read by the Costume Draper at [facility] and they will be notified of results by their PCP as soon as they are available. 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 /robe/ CASANDRA PRETTY BA, SHANK BONER, RPFT RESPIRATORY THERAPIST Signed: 12/23/2023 09:19 CASANDRA PRETTY [facility]
--- OUTSIDE RECORDS SUMMARY | 2024-04-28 11:04 | XMS_ITS | Encounter Summary ---
Author Name [place] Organization [place] Address [address] [place] [id number] Care Team Providers Care Wire Steward Name Role Phone NEHEMIAH CUEVAS Primary Care [...] Relationship to Policy Orellana ANA [facility] Aug 11, 2014 [id number] DHAVAL SHAQ Wagner PATIENT ANA BCBS [facility] MEDICARE SUPPLEMEN ARTEMIO [facility] Aug 11, 2014 [id number] DHAVAL SHAQ [facility] SUPP[facility]MEN ARTEMIO MEDEX 2 Aug 11, 2014 [id number] [phone] DHAVAL SHAQ Wagner [place] SUPP[place] ARTEMIO MEDEX 2 Aug 11, 2014 [id number] ARCHAMBRENATA SHAQ Wagner [place] SUPPLEMEN ARTEMIO MEDEX 2 Aug 11, 2014 [id number] [phone] ARCHAMBEA SHAQ Wagner [place] MEDICARE SUPPLEMEN [facility] [facility] [facility] [place] [facility] Aug 11, 2014 [id number] SHAQ WONG PATIENT USMANA [facility] (WNR) MEDICARE ADVANTAGE [facility] (WNR) Jan 11, 2022 [id number] [phone] ARCHAMBEA SHAQ Wagner PATIENT USMANA [facility] (WNR) MEDICARE ADVANTAGE HUMAN A INSUR [facility]CE [facility] Jan 11, 2022 [id number] ARCHAMBEA SHAQ Wagner PATIENT MEDICARE (WNR) MEDICARE () PART A Dec 11, 2014 PART A [id number] [phone] ARCHAMBEA SHAQ Wagner PATIENT MEDICARE (WNR) MEDICARE () PART A Aug 11, 2014 PART A [id number] ARCHAMBEA SHAQ Wagner PATIENT MEDICARE (WNR) MEDICARE () PART B Aug 11, 2014 PART B [id number] ARCHAMBEA SHAQ Wagner PATIENT MEDICARE (WNR) MEDICARE () PART A Aug 11, 2014 PART A [id number] ARCHAMBEA SHAQ Wagner PATIENT MEDICARE (WNR) MEDICARE () PART B Aug 11, 2014 PART B [id number] ARCHAMBEA Bernard,SHAQ PATIENT MEDICARE (WNR) MEDICARE () PART B Aug 11, 2014 PART B [id number] ARCHAMBEA SHAQ Wagner PATIENT MEDICARE (WNR) MEDICARE () PART A Aug 11, 2014 PART A [id number] ARCHAMBEA SAHQ Wagner PATIENT MEDICARE (WNR) MEDICARE (M) PART B Aug 11, 2014 PART B [id number] ARCHAMBEA SHAQ Wagner [facility] (WNR) MEDICARE ADVANTAGE [facility] (WNR) May 13, 2020 [id number] ARCHAMBEA SHAQ Wagner PATIENT Selected Encounter This section includes the information on record at [place] for the Encounter. Date/Time Encounter Type Encounter Description Reason Pro vider Source Dec 23, 2023 01:28 PM Outpatient Encounter PRIMARY CARE/MEDICINE IHE Encounter Template Text not used by [place] Plan of Treatment: Future Appointments (+ 6 months) and Future Tests (+/- 45 days) The Plan of Treatment section includes future care activities for the patient from all [place] [facility] This section includes future appointments [...] 28, 2024 08:00 AM AMBULATORY - MEDICINE [place] [facility] Jan 30, 2024 07:30 AM AMBULATORY - MEDICINE [place] C [place] [facility] Mar 06, 2024 08:45 AM AMBULATORY - MEDICINE [place] C [place] [facility] Mar 11, 2024 08:30 AM AMBULATORY - MEDICINE [facility] Mar 16, 2024 08:30 AM AMBULATORY - MEDICINE [place] C [place] [facility] Apr 07, 2024 10:00 AM AMBULATORY - MEDICINE [place] C [place] [facility] Apr 20, 2024 08:30 AM AMBULATORY - MEDICINE [facility] Apr 28, 2024 11:00 AM AMBULATORY - MEDICINE [place] C [place] [facility] Jun 22, 2024 08:30 AM AMBULATORY - NONE [place]TRL [place] [facility] Active, Pending, and Scheduled Orders This [...] 06:05 PM Consult Order [facility]CARDIOLOGY Cons Theater Set Production Designer's Choice [facility] Lab Results: +/- 30 days of the encounter This section includes the Chemistry and Hematology Lab Results on record with [place] for the patient. Radiology Reports and Pathology Reports are provided separately, in subsequent sections. Lab Results This section contains the Chemistry/Hematology Results that were resulted 30 days before or 30 daysafter the date of the Encounter. Date/Time Source Result Type Result - Unit Interpretation Reference Range Comment Dec 30, 2023 08:44 AM [facility] MAGNESIUM Specimen Type: SERUM No comment entered. Ordering Provider: NEHEMIAH BOEWRS Report Released Date/Time: Jul 04, 2023 09:50 AM Reporting [facility]: [facility] [address] [address] Performing Lab: [facility] [address] [address] MAGNESIUM 1.9 mg/dL 1.6-2.6 Dec 30, 2023 08:44 AM [facility] PSA Specimen Type: SERUM No comment entered. Ordering Provider: NEHEMIAH BOWERS Report Released Date/Time: Jul 04, 2023 09:50 AM Reporting Lab: [facility] [address] [address] Performing Lab: [facility] [address] [address] PSA 0.26 ng/mL 0.00-4.00 Dec 30, 2023 08:44 AM [facility] TSH Specimen Type: SERUM No comment entered. Ordering Provider: NEHEMIAH BOWERS Report Released Date/Time: Jul 04, 2023 09:50 AM Reporting Lab: [facility] [address] [address] Performing Lab: [facility] [address] TSH 0.57 u[IU]/mL 0.35-5.00 Dec 30, 2023 08:44 AM [facility] HEMOGLOBIN A1C PANEL Specimen Type: BLOOD Comment: [...] Jul 04, 2023 09:50 AM Reporting Lab: [address] [address] Performing Lab: [address] [address] HEMOGLOBIN A1C 4.9 4.0-5.6 Dec 30, 2023 08:44 AM [facility] BASIC METABOLIC PANEL (fasting) Specime n Type: SERUM No comment entered. Ordering Provider: NEHEMIAH BOWERS Report Released Date/Time: Jul 04, 2023 09:50 AM Reporting Lab: [address] [address] Performing Lab: [address] [address] UREA NITROGEN 13 mg/dL 7-25 GLUCOSE 100 mg/dL 65-100 SODIUM 136 mmol/L 135-145 POTASSIUM 4.5 mmol/L 3.5-5.0 CHLORIDE 102 mmol/L 100-110 CO2 26 meq/L 20-30 CREATININE, Serum 0.96 mg/dL 0.50-1.40 eGFR(CKD-EPI 2020) 83 mL/min >60 Dec 30, 2023 08:44 AM [facility] LIVER FUNCTION Specimen Type: SERUM No comment entered. Ordering Provider: NEHEMIAH BOWERS Report Released Date/Time: Jul 04, 2023 09:50 AM Reporting Lab: [address] [address] Performing Lab: [address] [address] PROTEIN,TOTAL 6.4 g/dL 6.0-8.3 ALBUMIN 4.0 g/dL 3.5-5.0 ALKALINE PHOSPHATASE 64 U/L 40-150 AST 17 U/L 5-34 ALT 19 U/L BILIRUBIN, TOTAL 0.5 mg/dL 0.2-1.2 Dec 30, 2023 08:44 AM [facility] LIPID PANEL FASTING Specimen Type: SERUM No comment entered. Ordering Provider: NEHEMIAH BOWERS Report Released Date/Time: Jul 04, 2023 09:50 AM Reporting Lab: [address] [address] Performing Lab: [address] [address] CHOLESTEROL 159 mg/dL TRIGLYCERIDE 76 mg/dL 0-150 LDL calculated 66 mg/dL 0-129 CHOL/HDL 2.0 HDL CHOLESTEROL 78 mg/dL H 40-60 Dec 30, 2023 08:44 AM [facility] CBC AND DIFF (AUTO) Specimen Type: BLOOD No comment entered. Ordering Provider: NEHEMIAH BOWRES Report Released Date/Time: Jul 04, 2023 09:50 AM Reporting Lab: [address] [address] Performing Lab: [address] [address] WBC 6.84 10*3/uL 4.50-11.00 RBC 4.52 10*6/uL [...] and tobacco- related health factors from the [place] facility where the Encounter took place. Current Smoking Status This section includes the most current smoking, or tobacco-related health factor, from the [place] facility where the Encounter took place. Date/Time Current Smoking Status Comment Facil ity Jul 04, 2023 09:00 AM OR-TOBACCO QUIT 15 YRS OR MORE [facility] Tobacco Use History This section includes a history of the smoking, or tobacco-related health factors, that were collected on or before the date of the Encounter. The data comes from the [place] facility where the Encounter took place. Date/Time Smoking Status/Tobacco Use Comment F acility Jul 04, 2023 09:00 AM VA-TOBACCO QUIT 15 YRS OR MORE [place] [facility]TRL [place] [facility] Mar 14, 2022 03:02 PM VA-TOBACCO FORMER USER [place] CNTRL [place] [facility] Mar 14, 2022 03:02 PM VA-TOBACCO QUIT 15 YRS OR MORE [place] [facility]TRL [place] [facility] Feb 08, 2021 09:00 AM VA-TOBACCO FORMER USER [place] CNTRL [place] [facility] Feb 08, 2021 09:00 AM VA-TOBACCO QUIT 15 YRS OR MORE [place] [facility]L [place] [facility] October 09, 2019 01:12 PM VA-TOBACCO FORMER USER [place] CNTRL [place] [facility] October 09, 2019 01:12 PM VA-TOBACCO QUIT 5 TO < 15 YRS [place] CNTRL [place] [facility] Advance Directives: All historical and current Section Date Range: From patient's date of to the date document was created. This section includes ALL of a patient's completed or amended [place] Advance and Rescinded Directives. The entries below indicate that a directive exists for the patient, but an actual copy is not included with this document. The data comes from all [place] facilities. Date Advance Directives Provider Source Feb 21, 2021 ADVANCE DIRECTIVE BEL ESCALANTE [facility] Encounter Notes: All associated encounter notes This section contains the clinical notes associated to the Encounter. Date/Time Encounter Note(s) Provider Source Dec 23, 2023 01:29 PM ACCOUNTING OF DISC LOSURES NOTE: LOCAL TITLE: STATE PRESCRIPTION DRUG MONITORING PROGRAM STANDARD TITLE: ACCOUNTING OF DISCLOSURES NOTE DATE OF NOTE: DEC 23, 2023@13:29:05 ENTRY DATE: DEC 23, 2023@13:29:05 AUTHOR: JIMENA MULLIGAN EXP COSIGNER: WENDY PETERS URGENCY: STATUS: COMPLETED This PDMP query was submitted by Jimena Mulligan on behalf of Wendy Peters. The clinical justification for this PDMP query is to review controlled substances prescribed outside of the [facility], and any additional information that may become available, as an important component of standard clinical care, and in accordance with [facility] policy. Patient information was shared with the PDMP [place]. The VA prescriber, for which I am a delegate, will be alerted of these PDMP findings through co-signature of this progress note. No prescription(s) for controlled substances outside the [facility] were found in the last 90 days. /robe/ JIMENA MULLIGAN LPN CLOTHING EXAMINER Signed: 12/23/2023 13:29 /robe/ WENDY PETERS NP NURSE PRACTITIONER Cosigned: 12/26/2023 09:17 JIMENA MULLIGAN Dec 23, 2023 01:29 PM PAIN MEDICATION MG T NOTE: LOCAL TITLE: OPIOID/CONTROLLED SUBSTANCE NOTE STANDARD TITLE: PAIN MEDICATION MGT NOTE DATE OF NOTE: DEC 23, 2023@13:29 ENTRY DATE: DEC 23, 2023@13:29:23 AUTHOR: JIMENA MULLIGAN EXP COSIGNER: URGENCY: STATUS: COMPLETED OPIOID/CONTROLLED SUBSTANCE NOTE Controlled Substance Renewal Request REQUESTED MEDICATIONS: MAIL TO PATIENT A valid consent for [...] in accordance with [facility] policy. 01/07/23 08:26 Nadazdin-Boskovic,Ognjenk PDMP [facility] [place] 01/07/23 08:27 Nadazdin-Boskovic,Ognjenk PDMP [facility] [place] 02/05/23 13:11 Ramsey Patel PDMP [facility] [place] 03/06/23 13:07 Didier Downs PDMP [facility] [place] 03/08/23 09:53 Nadazdin-Boskovic,Ognjenk PDMP [facility] [place] 04/01/23 08:33 Amy Pittman PDMP [facility] [place] 04/01/23 08:35 Amy Pittman PDMP [facility] [place] 05/09/23 12:16 Zheng Bardales PDMP [facility] [place] 05/24/23 10:07 Ravinder Bunn LPN PDMP [facility] [place] 05/29/23 15:39 Nadazdin-Boskovic,Ognjenk PDMP [facility] [place] 06/30/23 09:50 Nadazdin-Boskovic,Ognjenk PDMP [facility] [place] 07/29/23 09:13 Nadazdin-Boskovic,Ognjenk PDMP [facility] [place] 08/26/23 15:57 Ramsey Patel PDMP [facility] [place] 09/24/23 15:22 Ramsey Patel PDMP [facility] [place] 10/22/23 13:59 Ramsey Patel PDMP [facility] [place] 11/22/23 15:46 John Camacho PDMP [facility] [place] 12/23/23 13:28 Jimena Mulligan PDMP [facility] [place] Urine Drug Screen: A urine drug screen [...] D Last release date: 08/16/2021@16:29 Days supply: /robe/ JIMENA MULLIGAN LPN LPN Signed: 12/23/2023 13:29 JIMENA MULLIGAN
--- OUTSIDE RECORDS SUMMARY | 2024-04-28 11:04 | XMS_ITS | Encounter Summary ---
Author Name [facility] [place] [facility] [place] [facility] [facility] [place] Address [address] [place] [address] Care Team Providers Care Banana Loader Name Role Phone NEHEMIAH CUEVAS Primary Care [...] Name Patient's Relationship to Policy Orellana ANA [facility] Aug 11, 2014 [id number] DHAVAL SHAQ Wagner PATIENT ANA BCBS [facility] MEDICARE SUPPLEMEN [facility] Aug 11, 2014 [id number] DHAVAL SHAQ Wagner PATIENT [facility] MEDICARE SUPPLEMEN ARTEMIO MEDEX 2 Aug 11, 2014 [id number] DHAVAL SHAQ Wagner PATIENT [place] SUPPLEMEN [facility]EX 2 Aug 11, 2014 [id number] DHAVAL SHAQ Wagner PATIENT [place] SUPPLEMEN [facility] MEDEX 2 Aug 11, 2014 [id number] [phone] ARCHAMBEA SHAQ Wagner PATIENT [facility] MEDICARE SUPPLEMEN [facility] Aug 11, 2014 [id number] [phone] ARCHOCTAVIOEA SHAQ Wagner PATIENT HUMANA [facility] (WNR) MEDICARE ADVANTAGE HUMAN A INSUR [facility] Jan 11, 2022 [id number] [phone] ARCHAMBEA SHAQ Wagner PATIENT [employer] [facility] (WNR) MEDICARE ADVANTAGE [facility] (WNR) Jan 11, 2022 [id number] [phone] ARCHAMBEA U,SHAQ PATIENT MEDICARE (WNR) MEDICARE () PART A Dec 11, 2014 PART A [id number] ARCHAMBEA U,SHAQ PATIENT MEDICARE (WNR) MEDICARE () PART B Aug 11, 2014 PART B [id number] ARCHAMBEA U,SHAQ PATIENT MEDICARE (WNR) MEDICARE () PART A Aug 11, 2014 PART A [id number] [phone] ARCHAMBEA U,SHAQ PATIENT MEDICARE (WNR) MEDICARE () PART B Aug 11, 2014 PART B [id number] [phone] ARCHAMBEA U,SHAQ PATIENT MEDICARE (WNR) MEDICARE () PART A Aug 11, 2014 PART A [id number] ARCHAMBEA U,SHAQ PATIENT MEDICARE (WNR) MEDICARE () PART B Aug 11, 2014 PART B [id number] [phone] ARCHAMBEA U,SHAQ PATIENT MEDICARE (WNR) MEDICARE () PART A Aug 11, 2014 PART A [id number] ARCHAMBEA U,SHAQ PATIENT MEDICARE (WNR) MEDICARE () PART B Aug 11, 2014 PART B [id number] ARCHAMBEA U,SHAQ PATIENT [facility] (WNR) MEDICARE ADVANTAGE [facility] (WNR) May 13, 2020 [id number] ARCHAMBEA U,SHAQ PATIENT Selected Encounter This section includes the information on record at [place] for the Encounter. Date/Time Encounter Type Encounter Description Reason Pro vider Source Jan 22, 2024 02:19 PM Outpatient Encounter ADMIN PAT ACTIVTIES (MASNONCT) IHE Encounter Template Text not used by [place] Plan of Treatment: Future Appointments (+ 6 months) and Future Tests (+/- 45 days) The Plan of Treatment section includes future care activities for the [facility] [place] [facility] This section includes future appointments and future orders which are active, pending or scheduled. Future Appointments This section includes appointments that were scheduled to occur 6 months from the date of the Encounter, up to a maximum of 20 appointments. The data comes from all [facility]. Appointment Date/Time Appointment Type Appointme nt Facility Name Jan 28, 2024 08:00 AM AMBULATORY - MEDICINE [facility] [place] [facility] Jan 30, 2024 07:30 AM AMBULATORY - MEDICINE [facility] [place] [facility] Mar 06, 2024 08:45 AM AMBULATORY - MEDICINE [facility] [place] [facility] Mar 11, 2024 08:30 AM AM[facility]ULATORY - MEDICINE [facility] Mar 16, 2024 08:30 AM AMBULATORY - MEDICINE [facility] [place] [facility] Apr 07, 2024 10:00 AM AMBULATORY - MEDICINE [facility] [place] [facility] Apr 20, 2024 08:30 AM AMBULATORY - MEDICINE [facility] Apr 28, 2024 11:00 AM AMBULATORY - MEDICINE [facility] [place] [facility] Jun 22, 2024 08:30 AM AMBULATORY - NONE [facility] [place] [facility] Jul 10, 2024 09:00 AM AMBULATORY - MEDICINE [facility] Active, Pending, and Scheduled Orders This section includes a listing of several types of active, pending, and scheduled orders, including clinic medications orders, diagnostic test orders, procedure orders and consult orders; where the start date of the order is 45 days before the date of the Encounter or 45 days after the date of theEncounter. The data comes from all [facility]. Test Date/Time Test Type Test Details Facility Name Jan 29, 2024 06:05 PM Consult Order COMMUNITY [facility]ARE-CARDIOLOGY Cons Delivery Technician's Choice [facility] Mar 06, 2024 04:47 PM Consult Order COMMUNITY CARE-DENTAL GENERAL Cons Delivery Technician's Choice [facility] Lab Results: +/- 30 days of the encounter This section includes the Chemistry and Hematology Lab Results on record with [place] for the patient. Radiology Reports and Pathology Reports are provided separately, in subsequent sections. Lab Results This section contains the Chemistry/Hematology Results that were resulted 30 days before or 30 daysafter the date of the Encounter. Date/Time Source Result Type Result - Unit Interpretation Reference Range Comment Jan 24, 2024 08:23 AM [facility] METHADONE SCREEN Specimen Type: URINE Comment: THIAGO test are qualitative, any L or H flags only indicate a [place] alert was sent. Ordering Provider: NEHEMIAH DAVIES Report Released Date/Time: Jan 22, 2024 11:28 AM Reporting Lab: [facility] [address] [facility] [address] Performing Lab: [facility] [address] [facility] [address] METHADONE SCREEN None detected(Nega tive) L Negative Jan 24, 2024 08:23 AM [facility] ALCOHOL, ETHYL URINE PANEL Specimen Type: URINE [...] Jan 22, 2024 11:28 AM Reporting Lab: [facility] [address] [address] Performing Lab: [address] [address] ALCOHOL, ETHYL URINE NONE-DETECTED mg/dL NONE-DETEC SIRI, cutoff = 10 mg/dL PH, THIAGO 5.8 [pH] 4-10 CREATININE, THIAGO 29.33 mg/dL >20 SP.GRAVITY, THIAGO 1.009 1.00 3-1.02 0 Jan 24, 2024 08:23 AM [place] AMPHETAMINES SCREEN PANEL Specimen Type: URINE Comment: [...] Jan 22, 2024 11:28 AM Reporting Lab: [address] [address] Performing Lab: [address] [address] AMPHETAMINES SCREEN NONE-DETECTED None-Detec siri, Cutoff = 1000 ng/mL PH, THIAGO 5.8 [pH] 4-10 CREATININE, THIAGO 29.33 mg/dL >20 SP.GRAVITY, THIAGO 1.009 1.00 3-1.02 0 Jan 24, 2024 08:23 AM [place] FENTANYL SCREEN PANEL Specimen Type: URINE Comment: [...] Jan 22, 2024 11:28 AM Reporting Lab: [address] [address] Performing Lab: [address] [address] FENTANYL SCREEN NONE-DETECTE D ng/mL Negative: Cutoff = 1.00 ng/mL PH, THIAGO 5.7 [pH] 4-10 CREATININE, THIAGO 29.05 mg/dL >20 SP.GRAVITY, THIAGO 1.010 1.00 3-1.02 0 Jan 24, 2024 08:23 AM [place] BENZODIAZEPINES SCREEN PANEL Specimen Type: URINE Comment: [...] Jan 22, 2024 11:28 AM Reporting Lab: [facility] [address] [address] Performing Lab: [address] [address] BENZODIAZEPINES SCREEN NONE-DETECTED None-Detec siri, Cutoff = 200 ng/mL PH, THIAGO 5.8 [pH] 4-10 CREATININE, THIAGO 29.33 mg/dL >20 SP.GRAVITY, THIAGO 1.009 1.00 3-1.02 0 Jan 24, 2024 08:23 AM [place] BUPRENORPHINE SCREEN PANEL Specimen Type: URINE Comment: [...] Jan 22, 2024 11:28 AM Reporting Lab: [facility] [address] [address] Performing Lab: [address] [address] BUPRENORPHINE (URINE) NONE-DETECTED None Detected, Cutoff = 10.0 ng/mL PH, THIAGO 5.8 [pH] 4-10 CREATININE, THIAGO 29.33 mg/dL >20 SP.GRAVITY, THIAGO 1.009 1.00 3-1.02 0 Jan 24, 2024 08:23 AM [place] CANNABINOIDS SCREEN PANEL Specimen Type: URINE Comment: [...] Jan 22, 2024 11:28 AM Reporting Lab: [facility] [address] [address] Performing Lab: [address] [address] CANNABINOIDS SCREEN POSITIVE HH None-Detec siri,Cutoff = 50 ng/mL PH, THIAGO 5.8 [pH] 4-10 CREATININE, THIAGO 29.33 mg/dL >20 SP.GRAVITY, THIAGO 1.009 1.00 3-1.02 0 Jan 24, 2024 08:23 AM [place] COCAINE SCREEN PANEL Specimen Type: URINE Comment: [...] Jan 22, 2024 11:28 AM Reporting Lab: [facility] [address] [address] Performing Lab: [address] [address] COCAINE SCREEN NONE-DETECTED N one-Detec siri,Cutoff = 300 ng/mL PH, THIAGO 5.8 [pH] 4-10 CREATININE, THIAGO 29.33 mg/dL >20 SP.GRAVITY, THIAGO 1.009 1.00 3-1.02 0 Jan 24, 2024 08:23 AM [place] OPIATES SCREEN PANEL Specimen Type: URINE Comment: [...] Jan 22, 2024 11:28 AM Reporting Lab: [address] [address] Performing Lab: [address] [address] OPIATES SCREEN NONE-DETECTED N one-Detec siri, Cutoff = 300 ng/mL PH, THIAGO 5.8 [pH] 4-10 CREATININE, THIAGO 29.33 mg/dL >20 SP.GRAVITY, THIAGO 1.009 1.00 3-1.02 0 Jan 24, 2024 08:23 AM [place] OXYCODONE SCREEN PANEL Specimen Type: URINE Comment: [...] Jan 22, 2024 11:28 AM Reporting Lab: [address] [address] Performing Lab: [address] [address] OXYCODONE SCREEN POSITIVE HH Non e-Detec siri, Cutoff = 100 ng/mL PH, THIAGO 5.8 [pH] 4-10 CREATININE, THIAGO 29.33 mg/dL >20 SP.GRAVITY, THIAGO 1.009 1.00 3-1.02 0 Dec 30, 2023 08:44 AM [facility] PSA Specimen Type: SERUM No comment entered. Ordering Provider: NEHEMIAH DAVIES Report Released Date/Time: Jul 04, 2023 09:50 AM Reporting Lab: [address] [address] Performing Lab: [address] [address] PSA 0.26 ng/mL 0.00-4.00 Dec 30, 2023 08:44 AM [facility] MAGNESIUM Specimen Type: SERUM No comment entered. Ordering Provider: NEHEMIAH DAVIES Report Released Date/Time: Jul 04, 2023 09:50 AM Reporting Lab: [address] [address] Performing Lab: [address] [address] MAGNESIUM 1.9 mg/dL 1.6-2.6 Dec 30, 2023 08:44 AM [facility] TSH Specimen Type: SERUM No comment entered. Ordering Provider: NEHEMIAH DAVIES Report Released Date/Time: Jul 04, 2023 09:50 AM Reporting Lab: [address] [address] Performing Lab: [address] [address] TSH 0.57 u[IU]/mL 0.35-5.00 Dec 30, 2023 08:44 AM [facility] HEMOGLOBIN A1C PANEL Specimen Type: BLOOD Comment: Values obtained from A1C measurements can vary. For atypical A1C assays, a reported value of 7.0 could actually be between 6.72 and 7.28 if measured by a reference method. A reported value of 9.0 could actually be between 8.73 and 9.27. Ref: http://www.ng sp.org/CAPdat a.asp Ordering Provider: NADNEHEMIAH HILL Report Released Date/Time: Jul 04, 2023 09:50 AM Reporting Lab: [facility] [address] [facility] [address] Performing Lab: [facility] [address] [address] HEMOGLOBIN A1C 4.9 4.0-5.6 Dec 30, 2023 08:44 AM [place] LIPID PANEL FASTING Specimen Type: SERUM No comment entered. Ordering Provider: NEHEMIAH DAVIES Report Released Date/Time: Jul 04, 2023 09:50 AM Reporting Lab: [facility] [address] [address] Performing Lab: [facility] [address] [address] CHOLESTEROL 159 mg/dL TRIGLYCERIDE 76 mg/dL 0-150 LDL calculated 66 mg/dL 0-129 CHOL/HDL 2.0 HDL CHOLESTEROL 78 mg/dL H 40-60 Dec 30, 2023 08:44 AM [facility] BASIC METABOLIC PANEL (fasting) Specime n Type: SERUM No comment entered. Ordering Provider: NEHEMIAH DAVIES Report Released Date/Time: Jul 04, 2023 09:50 AM Reporting Lab: [facility] [address] [facility] [address] Performing Lab: [facility] [address] [address] UREA NITROGEN 13 mg/dL 7-25 GLUCOSE 100 mg/dL 65-100 SODIUM 136 mmol/L 135-145 POTASSIUM 4.5 mmol/L 3.5-5.0 CHLORIDE 102 mmol/L 100-110 CO2 26 meq/L 20-30 CREATININE, Serum 0.96 mg/dL 0.50-1.40 eGFR(CKD-EPI 2020) 83 mL/min >60 Dec 30, 2023 08:44 AM [facility] LIVER FUNCTION Specimen Type: SERUM No comment entered. Ordering Provider: NEHEMIAH DAVIES Report Released Date/Time: Jul 04, 2023 09:50 AM Reporting Lab: [address] [address] Performing Lab: [address] [address] PROTEIN,TOTAL 6.4 g/dL 6.0-8.3 ALBUMIN 4.0 g/dL 3.5-5.0 ALKALINE PHOSPHATASE 64 U/L 40-150 AST 17 U/L 5-34 ALT 19 U/L BILIRUBIN, TOTAL 0.5 mg/dL 0.2-1.2 Dec 30, 2023 08:44 AM [place] CBC AND DIFF (AUTO) Specimen Type: BLOOD No comment entered. Ordering Provider: NEHEMIAH DAVIES Report Released Date/Time: Jul 04, 2023 09:50 AM Reporting Lab: [address] [address] Performing Lab: [address] [address] WBC 6.84 10*3/uL 4.50-11.00 RBC 4.52 10*6/uL [...] Facil ity Jul 04, 2023 09:00 AM CO-TOBACCO QUIT 15 YRS OR MORE [facility] Tobacco Use History This section includes a history of the smoking, or tobacco-related health factors, that were collected on or before the date of the Encounter. The data comes from the [place] facility where the Encounter took place. Date/Time Smoking Status/Tobacco Use Comment F acility Jul 04, 2023 09:00 AM [place]-TOBACCO QUIT 15 YRS OR MORE [facility] [place] [facility] Mar 14, 2022 03:02 PM VA-TOBACCO FORMER USER [facility] [place] [facility] Mar 14, 2022 03:02 PM VA-TOBACCO QUIT 15 YRS OR MORE [facility] [place] [facility] Feb 08, 2021 09:00 AM VA-TOBACCO FORMER USER [facility] [place] [facility] Feb 08, 2021 09:00 AM VA-TOBACCO QUIT 15 YRS OR MORE [facility] [place] [facility] October 09, 2019 01:12 PM VA-TOBACCO FORMER USER [facility] [place] [facility] October 09, 2019 01:12 PM VA-TOBACCO QUIT 5 TO < 15 YRS [facility] [place] [facility] Advance Directives: All historical and [...] ADVANCE DIRECTIVE BEL ESCALANTE [facility] Encounter Notes: All associated encounter notes This section contains the clinical notes associated to the Encounter. Date/Time Encounter Note(s) Provider Source Jan 22, 2024 02:19 PM ADMINISTRATIVE NOT E: LOCAL TITLE: CCC: SCHEDULING ADMINISTRATION STANDARD TITLE: ADMINISTRATIVE NOTE DATE OF NOTE: JAN 22, 2024@14:19:31 ENTRY DATE: JAN 22, 2024@14:19:32 AUTHOR: AMBER WHITING EXP COSIGNER: URGENCY: STATUS: COMPLETED Patient Demographics Patient Name: SHAQ GREGORIO Patient Primary Phone: [phone] Patient Primary Address: [address] [place] [address] Patient : 1950 Patient Age: 73 Caller/Recipient Relation to Patient: Self Administrative Administrative Note Reason: Returned Call Administrative Note Comments: 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 [phone] IMPORTANT: This note was created by [facility] Clinical Contact Center staff. Please do not alert the staff member by adding them as a signer for future communications. Alerts are not monitored by this user. /robe/ AMBER WHITING ADVANCED SENIOR ELECTRONICS TECHNICIAN Signed: 01/22/2024 14:19 Receipt Acknowledged By: 01/23/2024 08:21 /robe/ NATA MULLIGAN LPN LPN 01/27/2024 13:49 /robe/ CECILIO AL RN REGISTERED NURSE AMBER WHITING [facility]
--- OUTSIDE RECORDS SUMMARY | 2024-04-28 11:04 | XMS_ITS | Encounter Summary ---
Author Name [facility] [place] [facility] [place] Address [address] [place] [address] Care Team Providers Care Well Blower Name Role Phone NEHEMIAH CUEVAS Primary Care [...] Name Patient's Relationship to Policy Orellana ANA [facility] Aug 11, 2014 [id number] DHAVAL SHAQ Wagner PATIENT ANA BCBS [facility] MEDICARE SUPPLEMEN [facility] Aug 11, 2014 [id number] DHAVAL SHAQ [facility] SUPPLEMEN ARTEMIO MEDEX 2 Aug 11, 2014 [id number] [phone] DHAVAL SHAQ Wagner PATIENT [place] SUPPLEMEN ART[facility] MEDEX 2 Aug 11, 2014 [id number] DHAVAL SHAQ Wagner PATIENT [place] SUPPLEMEN ARTEMIO MEDEX 2 Aug 11, 2014 [id number] ARCHAMBEA SHAQ Wagner PATIENT [facility] BLUECARD MEDICARE SUPPLEMEN [facility] Aug 11, 2014 [id number] ARCHOCTAVIOEA SHAQ Wagner PATIENT HUMANA [facility] (WNR) MEDICARE ADVANTAGE HUMAN A INSUR [facility] Jan 11, 2022 [id number] [phone] ARCHAMBEA SHAQ Wagner PATIENT USMANA MCR (WNR) MEDICARE ADVANTAGE [facility] (WNR) Jan 11, 2022 [id number] [phone] ARCHAMBEA U,SHAQ PATIENT MEDICARE (WNR) MEDICARE (M) PART A Dec 11, 2014 PART A [id number] [phone] ARCHAMBEA U,SHAQ PATIENT MEDICARE (WNR) MEDICARE (M) PART A Aug 11, 2014 PART A [id number] ARCHAMBEA U,SHAQ PATIENT MEDICARE (WNR) MEDICARE () PART B Aug 11, 2014 PART B [id number] ARCHAMBEA U,SHAQ PATIENT MEDICARE (WNR) MEDICARE () PART A Aug 11, 2014 PART A [id number] ARCHAMBEA U,SHAQ PATIENT MEDICARE (WNR) MEDICARE (M) PART B Aug 11, 2014 PART B [id number] ARCHAMBEA U,SHAQ PATIENT MEDICARE (WNR) MEDICARE () PART B Aug 11, 2014 PART B [id number] [phone] ARCHAMBEA U,SHAQ PATIENT MEDICARE (WNR) MEDICARE (M) PART A Aug 11, 2014 PART A [id number] ARCHAMBEA U,SHAQ PATIENT MEDICARE (WNR) MEDICARE (M) PART B Aug 11, 2014 PART B [id number] ARCHAMBEA U,SAHQ PATIENT [facility] (WNR) MEDICARE ADVANTAGE [facility] (WNR) May 13, 2020 [id number] ARCHAMBEA U,SHAQ PATIENT Selected Encounter This section includes the information on record at [place] for the Encounter. Date/Time Encounter Type Encounter Description Reason Pro vider Source Jan 20, 2024 08:53 AM Outpatient Encounter ADMIN PAT ACTIVTIES (MASNONCT) IHE Encounter Template Text not used by [place] Plan of Treatment: Future Appointments (+ 6 months) and Future Tests (+/- 45 days) The Plan of Treatment section includes future care activities for the patient [facility] [place] [facility] This section includes future appointments and future orders which are active, pending or scheduled. Future Appointments This section includes appointments that were scheduled to occur 6 months from the date of the Encounter, up to a maximum of 20 appointments. The data comes from all [facility]. Appointment Date/Time Appointment Type Appointme nt Facility Name Jan 28, 2024 08:00 AM AMBULATORY [place]ICINE [place] [facility] [place] [facility] Jan 30, 2024 07:30 AM AMBULATORY [place]IC[place] [facility] [place] [facility] Mar 06, 2024 08:45 AM AMBULATORY - MEDICINE [place] [facility] [place] [facility] Mar 11, 2024 08:30 AM [facility]ORY - MEDICINE [facility] Mar 16, 2024 08:30 AM AMBULATORY - MEDICINE [place] [facility] [place] [facility] Apr 07, 2024 10:00 AM AMBULATORY - MEDICINE [place] [facility] [place] [facility] Apr 20, 2024 08:30 AM [facility]ATORY - MEDIC[facility] Apr 28, 2024 11:00 AM AMBULATORY - MEDICINE [place] [facility] [place] [facility] Jun 22, 2024 08:30 AM AMBULATORY - NONE [place] [facility] [place] [facility] Jul 10, 2024 09:00 AM AMBULATORY - MEDICINE [facility] Active, Pending, and Scheduled Orders This section includes a listing of several types of active, pending, and scheduled orders, including clinic medications orders, diagnostic test orders, procedure orders and consult orders; where the start date of the order is 45 days before the date of the Encounter or 45 days after the date of theEncounter. The data comes from all [facility]. Test Date/Time Test Type Test Details Facility Name Jan 29, 2024 06:05 PM Consult Order COMMUNITY CARE-CARDIOLOGY Cons Application Support Administrator's Choice [facility] Lab Results: +/- 30 days of the [...] Range Comment Jan 24, 2024 08:23 AM [facility] METHADONE SCREEN Specimen Type: URINE Comment: THIAGO test are qualitative, any L or H flags only indicate a [place] alert was sent. Ordering Provider: NEHEMIAH DAVIES Report Released Date/Time: Jan 22, 2024 11:28 AM Reporting Lab: [facility] [address] [facility] [address] Performing Lab: [facility] [address] [facility] [address] METHADONE SCREEN None detected(Nega tive) L Negative Jan 24, 2024 08:23 AM [place] ALCOHOL, ETHYL URINE PANEL Specimen Type: URINE [...] Jan 22, 2024 11:28 AM Reporting Lab: [facility] [address] [facility] [address] Performing Lab: [address] [address] ALCOHOL, ETHYL URINE NONE-DETECTED mg/dL NONE-DETEC SIRI, cutoff = 10 mg/dL PH, THIAGO 5.8 [pH] 4-10 CREATININE, THIAGO 29.33 mg/dL >20 SP.GRAVITY, THIAGO 1.009 1.00 3-1.02 0 Jan 24, 2024 08:23 AM [place] AMPHETAMINES SCREEN PANEL Specimen Type: URINE Comment: [...] Jan 22, 2024 11:28 AM Reporting Lab: [address] [address] Performing Lab: [address] [address] AMPHETAMINES SCREEN NONE-DETECTED None-Detec siri, Cutoff = 1000 ng/mL PH, THIAGO 5.8 [pH] 4-10 CREATININE, THIAGO 29.33 mg/dL >20 SP.GRAVITY, THIAGO 1.009 1.00 3-1.02 0 Jan 24, 2024 08:23 AM [place] FENTANYL SCREEN PANEL Specimen Type: URINE Comment: [...] Jan 22, 2024 11:28 AM Reporting Lab: [address] [address] Performing Lab: [address] [address] FENTANYL SCREEN NONE-DETECTE D ng/mL Negative: Cutoff = 1.00 ng/mL PH, THIAGO 5.7 [pH] 4-10 CREATININE, THIAGO 29.05 mg/dL >20 SP.GRAVITY, THIAGO 1.010 1.00 3-1.02 0 Jan 24, 2024 08:23 AM [place] BUPRENORPHINE SCREEN PANEL Specimen Type: URINE Comment: [...] Jan 22, 2024 11:28 AM Reporting Lab: [address] [address] Performing Lab: [address] [address] BUPRENORPHINE (URINE) NONE-DETECTED None Detected, Cutoff = 10.0 ng/mL PH, THIAGO 5.8 [pH] 4-10 CREATININE, THIAGO 29.33 mg/dL >20 SP.GRAVITY, THIAGO 1.009 1.00 3-1.02 0 Jan 24, 2024 08:23 AM [place] BENZODIAZEPINES SCREEN PANEL Specimen Type: URINE Comment: [...] Jan 22, 2024 11:28 AM Reporting Lab: [address] [address] Performing Lab: [address] [address] BENZODIAZEPINES SCREEN NONE-DETECTED None-Detec siri, Cutoff = 200 ng/mL PH, THIAGO 5.8 [pH] 4-10 CREATININE, THIAGO 29.33 mg/dL >20 SP.GRAVITY, THIAGO 1.009 1.00 3-1.02 0 Jan 24, 2024 08:23 AM [place] CANNABINOIDS SCREEN PANEL Specimen Type: URINE Comment: [...] Jan 22, 2024 11:28 AM Reporting Lab: [facility] [address] [facility] [address] Performing Lab: [address] [address] CANNABINOIDS SCREEN POSITIVE HH None-Detec siri,Cutoff = 50 ng/mL PH, THIAGO 5.8 [pH] 4-10 CREATININE, THIAGO 29.33 mg/dL >20 SP.GRAVITY, THIAGO 1.009 1.00 3-1.02 0 Jan 24, 2024 08:23 AM [place] COCAINE SCREEN PANEL Specimen Type: URINE Comment: [...] Jan 22, 2024 11:28 AM Reporting Lab: [address] [address] Performing Lab: [address] [address] COCAINE SCREEN NONE-DETECTED N one-Detec siri,Cutoff = 300 ng/mL PH, THIAGO 5.8 [pH] 4-10 CREATININE, THIAGO 29.33 mg/dL >20 SP.GRAVITY, THIAGO 1.009 1.00 3-1.02 0 Jan 24, 2024 08:23 AM [place] OPIATES SCREEN PANEL Specimen Type: URINE Comment: [...] Jan 22, 2024 11:28 AM Reporting Lab: [address] [address] Performing Lab: [address] [address] OPIATES SCREEN NONE-DETECTED N one-Detec siri, Cutoff = 300 ng/mL PH, THIAGO 5.8 [pH] 4-10 CREATININE, THIAGO 29.33 mg/dL >20 SP.GRAVITY, THIAGO 1.009 1.00 3-1.02 0 Jan 24, 2024 08:23 AM [place] OXYCODONE SCREEN PANEL Specimen Type: URINE Comment: [...] Jan 22, 2024 11:28 AM Reporting Lab: [facility] Email Data Source[address] [address] Performing Lab: [address] [address] OXYCODONE SCREEN POSITIVE HH Non e-Detec siri, Cutoff = 100 ng/mL PH, THIAGO 5.8 [pH] 4-10 CREATININE, THIAGO 29.33 mg/dL >20 SP.GRAVITY, THIAGO 1.009 1.00 3-1.02 0 Dec 30, 2023 08:44 AM [place] PSA Specimen Type: SERUM No comment entered. Ordering Provider: NEHEMIAH DAVIES Report Released Date/Time: Jul 04, 2023 09:50 AM Reporting Lab: [facility] [address] [facility] [address] Performing Lab: [facility] [address] [facility] [address] PSA 0.26 ng/mL 0.00-4.00 Dec 30, 2023 08:44 AM [place] MAGNESIUM Specimen Type: SERUM No comment entered. Ordering Provider: NEHEMIAH DAVIES Report Released Date/Time: Jul 04, 2023 09:50 AM Reporting Lab: [facility] [address] [facility] [address] Performing Lab: [facility] [address] [address] MAGNESIUM 1.9 mg/dL 1.6-2.6 Dec 30, 2023 08:44 AM [place] TSH Specimen Type: SERUM No comment entered. Ordering Provider: NEHEMIAH DAVIES Report Released Date/Time: Jul 04, 2023 09:50 AM Reporting Lab: [facility] [address] [facility] [address] Performing Lab: [facility] [address] [address] TSH 0.57 u[IU]/mL 0.35-5.00 Dec 30, 2023 08:44 AM [place] HEMOGLOBIN A1C PANEL Specimen Type: BLOOD Comment: [...] 04, 2023 09:50 AM Reporting Lab: [facility] [place] [facility] [address] [facility] [address] Performing Lab: [facility] [address] [facility] [address] HEMOGLOBIN A1C 4.9 4.0-5.6 Dec 30, 2023 08:44 AM [place] LIPID PANEL FASTING Specimen Type: SERUM No comment entered. Ordering Provider: NEHEMIAH DAVIES Report Released Date/Time: Jul 04, 2023 09:50 AM Reporting Lab: [facility] [address] [facility] [address] Performing Lab: [facility] [address] [address] CHOLESTEROL 159 mg/dL TRIGLYCERIDE 76 mg/dL 0-150 LDL calculated 66 mg/dL 0-129 CHOL/HDL 2.0 HDL CHOLESTEROL 78 mg/dL H 40-60 Dec 30, 2023 08:44 AM [place] LIVER FUNCTION Specimen Type: SERUM No comment entered. Ordering Provider: NEHEMIAH DAVIES Report Released Date/Time: Jul 04, 2023 09:50 AM Reporting Lab: [facility] [address] [address] Performing Lab: [facility] [address] [address] PROTEIN,TOTAL 6.4 g/dL 6.0-8.3 ALBUMIN 4.0 g/dL 3.5-5.0 ALKALINE PHOSPHATASE 64 U/L 40-150 AST 17 U/L 5-34 ALT 19 U/L BILIRUBIN, TOTAL 0.5 mg/dL 0.2-1.2 Dec 30, 2023 08:44 AM [place] BASIC METABOLIC PANEL (fasting) Specime n Type: SERUM No comment entered. Ordering Provider: NEHEMIAH DAVIES Report Released Date/Time: Jul 04, 2023 09:50 AM Reporting Lab: [facility] [address] [address] Performing Lab: [facility]ENTERUSE[address] [address] UREA NITROGEN 13 mg/dL 7-25 GLUCOSE 100 mg/dL 65-100 SODIUM 136 mmol/L 135-145 POTASSIUM 4.5 mmol/L 3.5-5.0 CHLORIDE 102 mmol/L 100-110 CO2 26 meq/L 20-30 CREATININE, Serum 0.96 mg/dL 0.50-1.40 eGFR(CKD-EPI 2020) 83 mL/min >60 Dec 30, 2023 08:44 AM [place] CBC AND DIFF (AUTO) Specimen Type: BLOOD No comment entered. Ordering Provider: NEHEMIAH DAVIES Report Released Date/Time: Jul 04, 2023 09:50 AM Reporting Lab: [facility] [address] [facility] [address] Performing Lab: [facility] [address] [facility] [address] WBC 6.84 10*3/uL 4.50-11.00 RBC 4.52 10*6/uL [...] and tobacco- related health factors from the [place] facility where the Encounter took place. Current Smoking Status This section includes the most current smoking, or tobacco-related health factor, from the [place] facility where the Encounter took place. Date/Time Current Smoking Status Comment Facil ity Jul 04, 2023 09:00 AM [place]AC[place] FORMER USER [facility] Tobacco Use History This section includes a history of the smoking, or tobacco-related health factors, that were collected on or before the date of the Encounter. The data comes from the [place] facility where the Encounter took place. Date/Time Smoking Status/Tobacco Use Comment F acility Jul 04, 2023 09:00 AM VA-TOBACCO QUIT 15 YRS OR MORE [facility] [place] [facility] Mar 14, 2022 03:02 PM VA-TOBACCO FORMER USER [place] [facility] [place] [facility] Mar 14, 2022 03:02 PM VA-TOBACCO QUIT 15 YRS OR MORE [facility] [place] [facility] Feb 08, 2021 09:00 AM VA-TOBACCO FORMER USER [place] [facility] [place] [facility] Feb 08, 2021 09:00 AM VA-TOBACCO QUIT 15 YRS OR MORE [facility] [place] [facility] October 09, 2019 01:12 PM VA-TOBACCO FORMER USER [facility] [place] [facility] October 09, 2019 01:12 PM VA-TOBACCO QUIT 5 TO < 15 YRS [place] [facility] [place] [facility] Advance Directives: All historical and [...] Feb 21, 2021 ADVANCE DIRECTIVE BEL ESCALANTE [facility] Encounter Notes: All associated encounter notes This section contains the clinical notes associated to the Encounter. Date/Time Encounter Note(s) Provider Source Jan 21, 2024 07:54 AM ADDENDUM: LOCAL TITLE: Addendum STANDARD TITLE: ADDENDUM DATE OF NOTE: JAN 21, 2024@07:54:51 ENTRY DATE: JAN 21, 2024@07:54:52 AUTHOR: WENDY CARDONA COSIGNER: URGENCY: STATUS: COMPLETED oxycodone refilled and naloxone added for mail. Please contact him and request he come for UDS. /robe/ WENDY CARDONA NP NURSE PRACTITIONER Signed: 01/21/2024 07:56 Receipt Acknowledged By: 01/22/2024 11:31 /robe/ NATA MULLIGAN LPN LPN 01/27/2024 13:48 /robe/ CECILIO AL RN REGISTERED NURSE --- Original Document --- 01/20/24 CCC: SCHEDULING ADMINISTRATION: Patient Demographics Patient Name: SHAQ GREGORIO Patient Primary Phone: [phone] Patient Primary Address: [address] [place] [id number] Patient : 1950 Patient Age: 73 Caller/Recipient Relation to Patient: Self Administrative Administrative Note Reason: Other Administrative Note Comments: Patient called to renew their OXYCODONE HCL 5MG/APAP 325MG TAB medication and have it mailed to them. Please assist IMPORTANT: This note was created by [facility] Contact Center staff. Please do not alert the staff member by adding them as a signer for future communications. Alerts are not monitored by this user. /robe/ DANTE AUSTIN Signed: 01/20/2024 08:54 Receipt Acknowledged By: 01/22/2024 11:24 /robe/ NATA MULLIGAN LPN LPN * AWAITING SIGNATURE * CECILIO AL 01/22/2024 ADDENDUM STATUS: COMPLETED contacted generic message left requesting a call back. /robe/ NATA MULLIGAN LPN LPN Signed: 01/22/2024 11:31 WENDY CARDONA [facility] [place] [facility] Jan 20, 2024 08:53 AM ADMINISTRATIVE NOT E: LOCAL TITLE: CCC: SCHEDULING ADMINISTRATION STANDARD TITLE: ADMINISTRATIVE NOTE DATE OF NOTE: JAN 20, 2024@08:53:54 ENTRY DATE: JAN 20, 2024@08:53:54 AUTHOR: DANTE AUSTIN COSIGNER: URGENCY: STATUS: COMPLETED CCC: SCHEDULING ADMINISTRATION Has ADDENDA Patient Demographics Patient Name: SHAQ GREGORIO Patient Primary Phone: [phone] Patient Primary [address]: [address] [place] [address] Patient : 1950 Patient Age: 73 Caller/Recipient Relation to Patient: Self Administrative Administrative Note Reason: Other Administrative Note Comments: Patient called to renew their OXYCODONE HCL 5MG/APAP 325MG TAB medication and have it mailed to them. Please assist IMPORTANT: This note was created by [facility] Clinical Contact Center staff. Please do not alert the staff member by adding them as a signer for future communications. Alerts are not monitored by this user. /reba AUSTIN Signed: 01/20/2024 08:54 Receipt Acknowledged By: 01/22/2024 11:24 /reba MULLIGAN LPN LPN 01/28/2024 15:37 /robe/ CECILIO AL RN REGISTERED NURSE 01/21/2024 ADDENDUM STATUS: COMPLETED oxycodone refilled and naloxone added for mail. Please contact him and request he come for UDS. /robe/ WENDY CARDONA NP NURSE PRACTITIONER Signed: 01/21/2024 07:56 Receipt Acknowledged By: 01/22/2024 11:31 /reba MULLIGAN LPN LPN 01/27/2024 13:48 /reba AL RN REGISTERED NURSE 01/22/2024 ADDENDUM STATUS: COMPLETED contacted generic message left requesting a call back. /es/ NATA MULLIGAN LPN LPN Signed: 01/22/2024 11:31 DANTE UASTIN [facility]
--- OUTSIDE RECORDS SUMMARY | 2024-04-28 11:05 | XMS_ITS | Encounter Summary ---
Author Name [facility] [place] Address [address] [place] [address] Care Team Providers Care Demolition Crane Operator Name Role Phone NEHEMIAH CUEVAS Primary [...] Member ID Insurance Provider's Telephone Number Policy Roellana's Name Patient's Relationship to Policy Orellana ANA [facility] Aug 11, 2014 [id number] DHAVAL SHAQ Wagner PATIENT ANA BCBS [facility] MEDICARE SUPPLEMEN ARTEMIO [facility] Aug 11, 2014 [id number] [phone] DHAVAL SHAQ Wagner [facility] SUPPLEMEN ARTEMIO MEDEX 2 Aug 11, 2014 [id number] DHAVAL SHAQ [place] ARTEMIO MEDEX 2 Aug 11, 2014 [id number] [phone] DHAVAL SHAQ Wagner [place] SU[place]LE[place] ARTEMIO MEDEX 2 Aug 11, 2014 [id number] [phone] ARCHAMBEA SHAQ Wagner PATIENT [facility] [place] MEDICARE SUPPLEMEN [facility] Aug 11, 2014 [id number] [phone] ARCHOCTAVIOEA SHAQ Wagner PATIENT HUMANA [facility] (WNR) MEDICARE ADVANTAGE HUMAN A INSUR [place] [facility] Jan 11, 2022 [id number] [phone] ARCHAMBEA SHAQ Wagner PATIENT USMANA MCR (WNR) MEDICARE ADVANTAGE [facility] (WNR) Jan 11, 2022 [id number] [phone] ARCHAMBEA U,SHAQ PATIENT MEDICARE (WNR) MEDICARE () PART A Dec 11, 2014 PART A [id number] ARCHAMBEA U,SHAQ PATIENT MEDICARE (WNR) MEDICARE () PART B Aug 11, 2014 PART B [id number] ARCHAMBEA U,SHAQ PATIENT MEDICARE (WNR) MEDICARE () PART A Aug 11, 2014 PART A [id number] ARCHAMBEA U,SHAQ PATIENT MEDICARE (WNR) MEDICARE () PART B Aug 11, 2014 PART B [id number] ARCHAMBEA U,SHAQ PATIENT MEDICARE (WNR) MEDICARE () PART A Aug 11, 2014 PART A [id number] ARCHAMBEA U,SHAQ PATIENT MEDICARE (WNR) MEDICARE () PART B Aug 11, 2014 PART B [id number] ARCHAMBEA U,SHAQ PATIENT MEDICARE (WNR) MEDICARE () PART A Aug 11, 2014 PART A [id number] [phone] ARCHAMBEA U,SHAQ PATIENT MEDICARE (WNR) MEDICARE () PART B Aug 11, 2014 PART B [id number] [phone] ARCHAMBEA U,SHAQ PATIENT [facility] (WNR) MEDICARE ADVANTAGE [facility] (WNR) May 13, 2020 [id number] ARCHAMBEA U,SHAQ PATIENT Selected Encounter This section includes the information on record at [place] for the Encounter. Date/Time Encounter Type Encounter Description Reason Pro vider Source Feb 17, 2024 09:46 AM Outpatient Encounter ADMIN PAT ACTIVTIES (MASNONCT) IHE Encounter Template Text not used by [place] Plan of Treatment: Future Appointments (+ 6 months) and Future Tests (+/- 45 days) The Plan of Treatment section includes future care activities for the patient [facility] [place] [facility] This section includes future appointments and future orders which are active, pending or scheduled. Future Appointments This section includes appointments that were scheduled to occur 6 months from the date of the Encounter, up to a maximum of 20 appointments. The data comes from all [place] treatment [facility]. Appointment Date/Time Appointment Type Appointme nt Facility Name Mar 06, 2024 08:45 AM AMBULATORY - MEDICINE [place] [facility] Mar 11, 2024 08:30 AM [facility] Mar 16, 2024 08:30 AM AMBULATORY - MEDICINE IN [place] [facility] Apr 07, 2024 10:00 AM AMBULATORY - MEDICINE IN [place] [facility] Apr 20, 2024 08:30 AM [facility] Apr 28, 2024 11:00 AM AMBULATORY - MEDICINE IN [place] [facility] Jun 22, 2024 08:30 AM AMBULATORY - NONE IN [place] [facility] Jul 10, 2024 09:00 AM [facility] Jul 22, 2024 08:00 AM AMBULATORY - MEDICINE SPR[facility] Active, Pending, and Scheduled Orders This section includes a listing of several types of active, pending, and scheduled orders, including clinic medications orders, diagnostic test orders, procedure orders and consult orders; where the start date of the order is 45 days before the date of the Encounter or 45 days after the date of theEncounter. The data comes from all [place] treatment [facility]. Test Date/Time Test Type Test Details Facility Name Jan 29, 2024 06:05 PM Consult Order COMMUNITY CARE-CARDIOLOGY Cons Gluing Machine Operator[facility] Choice [facility] Mar 06, 2024 04:47 PM Consult Order COMMUNITY CARE-DENTAL GENERAL Cons Gluing Machine Operator's Choice [facility] Lab Results: +/- 30 days of the [...] Range Comment Jan 24, 2024 08:23 AM [facility] METHADONE SCREEN Specimen Type: URINE Comment: THIAGO test are qualitative, any L or H flags only indicate a [place] alert was sent. Ordering Provider: NEHEMIAH DAVIES Report Released Date/Time: Jan 22, 2024 11:28 AM Reporting Lab: [facility] [address] [facility] [address] Performing Lab: [facility] [address] [facility] [address] METHADONE SCREEN None detected(Nega tive) L Negative Jan 24, 2024 08:23 AM [facility] ALCOHOL, ETHYL URINE PANEL Specimen Type: URINE [...] Jan 22, 2024 11:28 AM Reporting Lab: [facility] [address] [facility] [address] Performing Lab: [address] [address] ALCOHOL, ETHYL URINE NONE-DETECTED mg/dL NONE-DETEC SIRI, cutoff = 10 mg/dL PH, THIAGO 5.8 [pH] 4-10 CREATININE, THIAGO 29.33 mg/dL >20 SP.GRAVITY, THIAGO 1.009 1.00 3-1.02 0 Jan 24, 2024 08:23 AM [facility] AMPHETAMINES SCREEN PANEL Specimen Type: URINE Comment: [...] Jan 22, 2024 11:28 AM Reporting Lab: [address] [address] Performing Lab: [address] [address] AMPHETAMINES SCREEN NONE-DETECTED None-Detec siri, Cutoff = 1000 ng/mL PH, THIAGO 5.8 [pH] 4-10 CREATININE, THIAGO 29.33 mg/dL >20 SP.GRAVITY, THIAGO 1.009 1.00 3-1.02 0 Jan 24, 2024 08:23 AM [facility] FENTANYL SCREEN PANEL Specimen Type: URINE Comment: [...] Jan 22, 2024 11:28 AM Reporting Lab: [address] [address] Performing Lab: [address] [address] FENTANYL SCREEN NONE-DETECTE D ng/mL Negative: Cutoff = 1.00 ng/mL PH, THIAGO 5.7 [pH] 4-10 CREATININE, THIAGO 29.05 mg/dL >20 SP.GRAVITY, THIAGO 1.010 1.00 3-1.02 0 Jan 24, 2024 08:23 AM [facility] BENZODIAZEPINES SCREEN PANEL Specimen Type: URINE Comment: [...] Jan 22, 2024 11:28 AM Reporting Lab: [facility] [address] [facility] [address] Performing Lab: [address] [address] BENZODIAZEPINES SCREEN NONE-DETECTED None-Detec siri, Cutoff = 200 ng/mL PH, THIAGO 5.8 [pH] 4-10 CREATININE, THIAGO 29.33 mg/dL >20 SP.GRAVITY, THIAGO 1.009 1.00 3-1.02 0 Jan 24, 2024 08:23 AM [facility] BUPRENORPHINE SCREEN PANEL Specimen Type: URINE Comment: [...] Jan 22, 2024 11:28 AM Reporting Lab: [address] [address] Performing Lab: [address] [address] BUPRENORPHINE (URINE) NONE-DETECTED None Detected, Cutoff = 10.0 ng/mL PH, THIAGO 5.8 [pH] 4-10 CREATININE, THIAGO 29.33 mg/dL >20 SP.GRAVITY, THIAGO 1.009 1.00 3-1.02 0 Jan 24, 2024 08:23 AM [facility] CANNABINOIDS SCREEN PANEL Specimen Type: URINE Comment: [...] Jan 22, 2024 11:28 AM Reporting Lab: [facility] [address] [facility] [address] Performing Lab: [address] [address] CANNABINOIDS SCREEN POSITIVE HH None-Detec siri,Cutoff = 50 ng/mL PH, THIAGO 5.8 [pH] 4-10 CREATININE, THIAGO 29.33 mg/dL >20 SP.GRAVITY, THIAGO 1.009 1.00 3-1.02 0 Jan 24, 2024 08:23 AM [facility] COCAINE SCREEN PANEL Specimen Type: URINE Comment: [...] Jan 22, 2024 11:28 AM Reporting Lab: [address] [address] Performing Lab: [address] [address] COCAINE SCREEN NONE-DETECTED N one-Detec siri,Cutoff = 300 ng/mL PH, THIAGO 5.8 [pH] 4-10 CREATININE, THIAGO 29.33 mg/dL >20 SP.GRAVITY, THIAGO 1.009 1.00 3-1.02 0 Jan 24, 2024 08:23 AM [facility] OPIATES SCREEN PANEL Specimen Type: URINE Comment: [...] Jan 22, 2024 11:28 AM Reporting Lab: [facility] [address] [address] Performing Lab: [address] [address] OPIATES SCREEN NONE-DETECTED N one-Detec siri, Cutoff = 300 ng/mL PH, THIAGO 5.8 [pH] 4-10 CREATININE, THIAGO 29.33 mg/dL >20 SP.GRAVITY, THIAGO 1.009 1.00 3-1.02 0 Jan 24, 2024 08:23 AM [facility] OXYCODONE SCREEN PANEL Specimen Type: URINE Comment: [...] Jan 22, 2024 11:28 AM Reporting Lab: [facility] [address] [address] Performing Lab: [address] [address] OXYCODONE SCREEN POSITIVE HH Non e-Detec siri, Cutoff = 100 ng/mL PH, THIAGO 5.8 [pH] 4-10 CREATININE, THIAGO 29.33 mg/dL >20 SP.GRAVITY, THIAGO 1.009 1.00 3-1.02 0 Social History: Smoking Status [...] Lor ity Jul 04, 2023 09:00 AM [place]-TOBACCO QUIT 15 YRS [facility] Tobacco Use History This section includes a history of the smoking, or tobacco-related health factors, that were collected on or before the date of the Encounter. The data comes from the [place] facility where the Encounter took place. Date/Time Smoking Status/Tobacco Use Comment Joselyn acdaniel Jul 04, 2023 09:00 AM VA-TOBACCO QUIT 15 YRS OR MORE [place] [facility] [place] [facility] Mar 14, 2022 03:02 PM VA-TOBACCO FORMER USER IN [facility] [facility] Mar 14, 2022 03:02 PM VA-TOBACCO QUIT 15 YRS OR MORE [place] [facility] Feb 08, 2021 09:00 AM VA-TOBACCO FORMER USER IN [place] [facility] Feb 08, 2021 09:00 AM VA-TOBACCO QUIT 15 YRS OR MORE IN [place] [facility] October 09, 2019 01:12 PM VA-TOBACCO FORMER USER IN [place] [facility] October 09, 2019 01:12 PM VA-TOBACCO QUIT 5 TO < 15 YRS [facility] Advance Directives: All historical and current Section Date Range: From patient's date of to the date document was created. This section includes ALL of a patient's completed or amended [place] Advance and Rescinded Directives. The entries below indicate that a directive exists for the patient, but an actual copy is not included with this document. The data comes from all [facility]. Date Advance Directives Provider Source Feb 21, 2021 ADVANCE DIRECTIVE BEL ESCALANTE [facility] Encounter Notes: All associated encounter notes This section contains the clinical notes associated to the Encounter. Date/Time Encounter Note(s) Provider Source Feb 17, 2024 09:46 AM PHARMACY NOTE: LOCAL TITLE: V1 PHARMACY CUSTOMER CARE MEDICATION RENEWAL STANDARD TITLE: PHARMACY NOTE DATE OF NOTE: FEB 17, 2024@09:46 ENTRY DATE: FEB 17, 2024@09:47:05 AUTHOR: LAURYN DORMAN V EXP COSIGNER: URGENCY: STATUS: COMPLETED Date: Feb Division: [facility] referred by Pharmacy Call Center for medication renewal: Controlled substance Medications requested: [id number] OXYCODONE HCL 5MG/APAP 325MG TAB Defer to specialty clinic To be mailed . Please review and renew if appropriate. *This note was generated by [facility]/[place] Pharmacy Customer Care. If you have any questions or need assistance, do not contact this author. Please refer all questions to your local, on-site pharmacy departments. /robe/ LAURYN DORMAN CPhT Entry Level Marketing Representative, [place]/Pharmacy Customer Care Signed: 02/17/2024 09:47 Receipt Acknowledged By: 02/18/2024 18:58 /robe/ WENDY CARDONA NP NURSE PRACTITIONER LAURYN DORMAN V IN [facility]L [facility]
--- OUTSIDE RECORDS SUMMARY | 2024-04-28 11:05 | XMS_ITS | Encounter Summary ---
Author Name Department [place] Organization [place] Address [address] [place] [address] Care Team Providers Care Patcher Helper Name Role Phone NEHEMIAH CUEVAS Primary Care [...] ANA [facility] Aug 11, 2014 [id number] DHAVAL SHAQ Wagner PATIENT [facility] SUPPLEMEN ARTEMIO [facility] Aug 11, 2014 [id number] [phone] ARCHSTEPHANIA SHAQ Wagner [facility] SUPPLEMEN ARTEMIO MEDEX 2 Aug 11, 2014 [id number] [phone] DHAVAL SHAQ Wagner [facility] SUPPLEMEN ARTEMIO MEDEX 2 Aug 11, 2014 [id number] ARCHSTEPHANIA SHAQ Wagner [place] SUPP[place] ARTEMIO MEDEX 2 Aug 11, 2014 [id number] ARCHOCTAVIOEA SHAQ Wagner [place] MEDICARE SUPPLEMEN [facility] [place] [facility] Aug 11, 2014 [id number] SHAQ WONG PATIENT USMANA [facility] (WNR) MEDICARE ADVANTAGE HUMAN A INSUR [place] [facility] Jan 11, 2022 [id number] [phone] ARCHOCTAVIOEA SHAQ Wagner PATIENT USMANA MCR (WNR) MEDICARE ADVANTAGE [facility] (WNR) Jan 11, 2022 [id number] [phone] ARCHAMBEA SHAQ Wagner PATIENT MEDICARE (WNR) MEDICARE () PART A Dec 11, 2014 PART A [id number] [phone] ARCHAMBEA SHAQ Wagner PATIENT MEDICARE (WNR) MEDICARE () PART A Aug 11, 2014 PART A [id number] ARCHAMBEA SHAQ Wagner PATIENT MEDICARE (WNR) MEDICARE () PART B Aug 11, 2014 PART B [id number] [phone] ARCHAMBEA SHAQ Wagner PATIENT MEDICARE (WNR) MEDICARE () PART A Aug 11, 2014 PART A [id number] ARCHAMBEA SHAQ Wagner PATIENT MEDICARE (WNR) MEDICARE () PART B Aug 11, 2014 PART B [id number] ARCHAMBEA SHAQ Wagner PATIENT MEDICARE (WNR) MEDICARE () PART A Aug 11, 2014 PART A [id number] [phone] ARCHAMBEA SHAQ Wagner PATIENT MEDICARE (WNR) MEDICARE () PART B Aug 11, 2014 PART B [id number] ARCHAMBEA SHAQ Wagner PATIENT MEDICARE (WNR) MEDICARE () PART B Aug 11, 2014 PART B [id number] [phone] ARCHAMBEA SHAQ Wagner [facility] (WNR) MEDICARE ADVANTAGE [facility] (WNR) May 13, 2020 [id number] ARCHAMBEA SHAQ Wagner PATIENT Selected Encounter This section includes the information on record at [place] for the Encounter. Date/Time Encounter Type Encounter Description Reason Pro vider Source Jan 30, 2024 08:03 AM Outpatient Encounter EVENT (HISTORICAL) IHE Encounter [...] 06, 2024 08:45 AM AMBULATORY - MEDICINE [place] [place] [facility] Mar 11, 2024 08:30 AM AMBULATORY - MEDICINE [facility] Mar 16, 2024 08:30 AM AMBULATORY - MEDICINE [place] [facility] Apr 07, 2024 10:00 AM AMBULATORY - MEDICINE [place] [facility] Apr 20, 2024 08:30 AM AMBULATORY - MEDICINE [facility] Apr 28, 2024 11:00 AM AMBULATORY - MEDICINE [place] [facility] Jun 22, 2024 08:30 AM AMBULATORY - NONE [place] [facility] [facility] Jul 10, 2024 09:00 AM AMBULATORY - MEDICINE [facility] Jul 22, 2024 08:00 AM AMBULATORY - MEDICINE [facility] Active, Pending, and Scheduled Orders This section includes a listing of several types of active, pending, and scheduled orders, including clinic medications orders, diagnostic test orders, procedure orders and consult orders; where the start date of the order is 45 days before the date of the Encounter or 45 days after the date of theEncounter. The data comes from all [place] treatment [facility]. Test Date/Time Test Type Test Details Facility Name Jan 29, 2024 06:05 PM Consult Order COMMUNITY CARE-CARDIOLOGY Cons Dog Obedience Instructor's Choice [facility] Mar 06, 2024 04:47 PM Consult Order COMMUNITY CARE-DENTAL GENERAL Cons [facility] Lab Results: +/- 30 days of the encounter This section includes the Chemistry and Hematology Lab Results on record with [place] for the patient. Radiology Reports and Pathology Reports are provided separately, in subsequent sections. Lab Results This section contains the Chemistry/Hematology Results that were resulted 30 days before or 30 daysafter the date of the Encounter. Date/Time Source Result Type Result - Unit Interpretation Reference Range Comment Jan 24, 2024 08:23 AM [facility] METHADONE SCREEN Specimen Type: URINE Comment: THIAGO test are qualitative, any L or H flags only indicate a [place] alert was sent. Ordering Provider: NEHEMIAH DAVIES Report Released Date/Time: Jan 22, 2024 11:28 AM Reporting Lab: [facility] [address] [facility] [address] Performing Lab: [facility] [address] [facility] [address] METHADONE SCREEN None detected(Nega tive) L Negative Jan 24, 2024 08:23 AM [facility] ALCOHOL, ETHYL URINE PANEL Specimen Type: URINE [...] Jan 22, 2024 11:28 AM Reporting Lab: [address] [address] Performing Lab: [address] [address] ALCOHOL, ETHYL URINE NONE-DETECTED mg/dL NONE-DETEC SIRI, cutoff = 10 mg/dL PH, THIAGO 5.8 [pH] 4-10 CREATININE, THIAGO 29.33 mg/dL >20 SP.GRAVITY, THIAGO 1.009 1.00 3-1.02 0 Jan 24, 2024 08:23 AM [facility] AMPHETAMINES SCREEN PANEL Specimen Type: URINE Comment: [...] Jan 22, 2024 11:28 AM Reporting Lab: [address] [address] Performing Lab: [address] [address] AMPHETAMINES SCREEN NONE-DETECTED None-Detec siri, Cutoff = 1000 ng/mL PH, THIAGO 5.8 [pH] 4-10 CREATININE, THIAGO 29.33 mg/dL >20 SP.GRAVITY, THIAGO 1.009 1.00 3-1.02 0 Jan 24, 2024 08:23 AM [facility] BENZODIAZEPINES SCREEN PANEL Specimen Type: URINE Comment: [...] Jan 22, 2024 11:28 AM Reporting Lab: [address] [address] Performing Lab: [address] [address] BENZODIAZEPINES SCREEN NONE-DETECTED None-Detec siri, Cutoff = 200 ng/mL PH, THIAGO 5.8 [pH] 4-10 CREATININE, THIAGO 29.33 mg/dL >20 SP.GRAVITY, THIAGO 1.009 1.00 3-1.02 0 Jan 24, 2024 08:23 AM [facility] FENTANYL SCREEN PANEL Specimen Type: URINE Comment: [...] Jan 22, 2024 11:28 AM Reporting Lab: [address] [address] Performing Lab: [address] [address] FENTANYL SCREEN NONE-DETECTE D ng/mL Negative: Cutoff = 1.00 ng/mL PH, THIAGO 5.7 [pH] 4-10 CREATININE, THIAGO 29.05 mg/dL >20 SP.GRAVITY, THIAGO 1.010 1.00 3-1.02 0 Jan 24, 2024 08:23 AM [facility] BUPRENORPHINE SCREEN PANEL Specimen Type: URINE Comment: [...] Jan 22, 2024 11:28 AM Reporting Lab: [address] [address] Performing Lab: [address] [address] BUPRENORPHINE (URINE) NONE-DETECTED None Detected, Cutoff = 10.0 ng/mL PH, THIAGO 5.8 [pH] 4-10 CREATININE, THIAGO 29.33 mg/dL >20 SP.GRAVITY, THIAGO 1.009 1.00 3-1.02 0 Jan 24, 2024 08:23 AM [facility] CANNABINOIDS SCREEN PANEL Specimen Type: URINE Comment: [...] Jan 22, 2024 11:28 AM Reporting Lab: [address] [address] Performing Lab: [address] [address] CANNABINOIDS SCREEN POSITIVE HH None-Detec siri,Cutoff = 50 ng/mL PH, THIAGO 5.8 [pH] 4-10 CREATININE, THIAGO 29.33 mg/dL >20 SP.GRAVITY, THIAGO 1.009 1.00 3-1.02 0 Jan 24, 2024 08:23 AM [facility] COCAINE SCREEN PANEL Specimen Type: URINE Comment: [...] Jan 22, 2024 11:28 AM Reporting Lab: [address] [address] Performing Lab: [address] [address] COCAINE SCREEN NONE-DETECTED N one-Detec siri,Cutoff = 300 ng/mL PH, THIAGO 5.8 [pH] 4-10 CREATININE, THIAGO 29.33 mg/dL >20 SP.GRAVITY, THIAGO 1.009 1.00 3-1.02 0 Jan 24, 2024 08:23 AM [facility] OPIATES SCREEN PANEL Specimen Type: URINE Comment: [...] Jan 22, 2024 11:28 AM Reporting Lab: [address] [address] Performing Lab: [address] [address] OPIATES SCREEN NONE-DETECTED N one-Detec siri, Cutoff = 300 ng/mL PH, THIAGO 5.8 [pH] 4-10 CREATININE, THIAGO 29.33 mg/dL >20 SP.GRAVITY, THIAGO 1.009 1.00 3-1.02 0 Jan 24, 2024 08:23 AM [facility] OXYCODONE SCREEN PANEL Specimen Type: URINE Comment: [...] Jan 22, 2024 11:28 AM Reporting Lab: [address] [address] Performing Lab: [address] [address] OXYCODONE SCREEN POSITIVE HH Non e-Detec siri, Cutoff = 100 ng/mL PH, THIAGO 5.8 [pH] 4-10 CREATININE, THIAGO 29.33 mg/dL >20 SP.GRAVITY, THIAGO 1.009 1.00 3-1.02 0 Vital Signs: All taken on the encounter date This section contains inpatient and outpatient Vital Signs collected on the date of the Encounter. Date/Time Temperature Pulse Blood Pressure Respiratory Rate SP02 Pain Height Weight Body Mass Index Source Jan 30, 2024 07:31 AM 120/70 7 [place] [facility] [place] [facility] Social History: Smoking Status (Most current) and Tobacco Use (All prior to encounter date) This section includes the most current, and the historical, smoking and tobacco- related health factors from the [place] facility where the Encounter took place. Current Smoking Status This section includes the most current smoking, or tobacco-related health factor, from the [place] facility where the Encounter took place. Date/Time Current Smoking Status Comment Facil ity Jul 04, 2023 09:00 AM VA-TOBACCO [facility] Tobacco Use History This section includes a history of the smoking, or tobacco-related health factors, that were collected on or before the date of the Encounter. The data comes from the [place] facility where the Encounter took place. Date/Time Smoking Status/Tobacco Use Comment F acility Jul 04, 2023 09:00 AM VA-TOBACCO QUIT 15 YRS OR MORE [place] [facility] [place] [facility] Mar 14, 2022 03:02 PM VA-TOBACCO FORMER USER [place] [facility] [place] [facility] Mar 14, 2022 03:02 PM VA-TOBACCO QUIT 15 YRS OR MORE [place] [facility] [place] [facility] Feb 08, 2021 09:00 AM VA-TOBACCO FORMER USER [place] [facility] [place] [facility] Feb 08, 2021 09:00 AM VA-TOBACCO QUIT 15 YRS OR MORE [place] [facility] [place] [facility] October 09, 2019 01:12 PM VA-TOBACCO FORMER USER [place] [facility] [place] [facility] October 09, 2019 01:12 PM VA-TOBACCO QUIT 5 TO < 15 [facility] Advance Directives: All historical and current Section Date Range: From patient's date of to the date document was created. This section includes ALL of a patient's completed or amended [place] Advance and Rescinded Directives. The entries below indicate that a directive exists for the patient, but an actual copy is not included with this document. The data comes from all [place] facilities. Date Advance Directives Provider Source Feb 21, 2021 ADVANCE DIRECTIVE BLE ESCALANTE
--- OUTSIDE RECORDS SUMMARY | 2024-04-28 11:05 | XMS_ITS ---
Author Name [facility] [place] [facility] [place] Address [address] [place] [address] Care Team Providers Care Log Hooker Name Role Phone NEHEMIAH CUEVAS Primary Care [...] Name Patient's Relationship to Policy Orellana ANA [facility] Aug 11, 2014 [id number] DHAVAL SHAQ Wagner PATIENT ANA [facility] MEDICARE SUPPLEMEN ARTEMIO [facility] Aug 11, 2014 [id number] [phone] DHAVAL SHAQ Wagner PATIENT [facility] MEDICARE SUPPLEMEN ARTEMIO MEDEX 2 Aug 11, 2014 [id number] DHAVAL SHAQ Wagner [facility]IENT [facility] MEDIC[facility] SUPPLEMEN ARTEMIO MEDEX 2 Aug 11, 2014 [id number] [phone] DHAVAL SHAQ Wagner PATIENT [place] MEDIC[place] SUPPLEMEN ARTEMIO MEDEX 2 Aug 11, 2014 [id number] ARCHAMBEA SHAQ Wagner PATIENT [place] MEDICARE SUPPLEMEN [facility] [place] Aug 11, 2014 [id number] [phone] LAURIEEA SHAQ Wagner PATIENT [facility]NA [facility] (WNR) MEDICARE ADVANTAGE HUMAN A INSUR [facility] Jan 11, 2022 [id number] [phone] ARCHOCTAVIOEA SHAQ Wagner PATIENT [facility]NA [facility] (WNR) MEDICARE ADVANTAGE [facility] (WNR) Jan 11, 2022 [id number] [phone] ARCHAMBEA SHAQ Wagner PATIENT MEDICARE (WNR) MEDICARE (M) PART A Dec 11, 2014 PART A [id number] ARCHAMBEA U,SHAQ PATIENT MEDICARE (WNR) MEDICARE () PART A Aug 11, 2014 PART A [id number] [phone] ARCHAMBEA SHAQ Wagner PATIENT MEDICARE (WNR) MEDICARE () PART B Aug 11, 2014 PART B [id number] ARCHAMBEA Bernard,SHAQ PATIENT MEDICARE (WNR) MEDICARE () PART A Aug 11, 2014 PART A [id number] [phone] ARCHAMBEA U,SHAQ PATIENT MEDICARE (WNR) MEDICARE () PART B Aug 11, 2014 PART B [id number] [phone] ARCHAMBEA U,SHAQ PATIENT MEDICARE (WNR) MEDICARE () PART A Aug 11, 2014 PART A [id number] [phone] ARCHAMBEA U,SHAQ PATIENT MEDICARE (WNR) MEDICARE (M) PART B Aug 11, 2014 PART B [id number] ARCHAMBEA U,SHAQ PATIENT MEDICARE (WNR) MEDICARE (M) PART B Aug 11, 2014 PART B [id number] ARCHAMBEA SHAQ Wagner PATIENT [facility] (WNR) MEDICARE ADVANTAGE [facility] (WNR) May 13, 2020 [id number] ARCHAMBEA USHAQ PATIENT Selected Encounter This section includes the information on record at [place] for the Encounter. Date/Time Encounter Type Encounter Description Reason Provider Source Jan 30, 2024 07:30 AM OFFICE O/P EST MOD 30 MIN PM&RS PHYSICIAN ICD-10-CM M13.872 Other specified arthritis, left ankle and foot NOELNOEMY Barnett [facility] Encounter Template Text not used by [place] Assessments - Encounter Diagnoses This section includes the primary and secondary diagnoses documented for the Encounter. Date/Time Primary/Secondary Diagnosis Diagnosis Name Provider Source Jan 30, 2024 08:22 AM PRIMARY Other specified arthritis, left ankle and foot ALYCE ENG [place] [facility] [place] [facility] Jan 30, 2024 08:22 AM SECONDARY Intervertebral disc disorders w radiculopathy, lumbar region ALYCE ENG [place] [facility] [place] [facility] Jan 30, 2024 08:22 AM SECONDARY Scoliosis, unspecified ALYCE ENG [place] [facility] [place] [facility] Plan of Treatment: Future Appointments (+ 6 months) and Future Tests (+/- 45 days) The Plan of Treatment section includes future care activities for the [facility] [place] [facility] This section includes future appointments and [...] 06, 2024 08:45 AM AMBULATORY - MEDICINE [place] C [facility] [place] [facility] Mar 11, 2024 08:30 AM [facility] Mar 16, 2024 08:30 AM AMBULATORY - MEDICINE [place] [facility] [place] [facility] Apr 07, 2024 10:00 AM AMBULATORY - MEDICINE [place] [facility] [facility] Apr 20, 2024 08:30 AM AMBULATORY - MEDICINE [facility] Apr 28, 2024 11:00 AM AMBULATORY - MEDICINE [place] [facility] [place] [facility] Jun 22, 2024 08:30 AM AMBULATORY - NONE [place] [facility] [place] [facility] Jul 10, 2024 09:00 AM AMBULATORY - MEDICINE [facility] [place] Jul 22, 2024 08:00 AM AMBULATORY - MEDICINE [facility] Active, Pending, and Scheduled Orders This section includes a listing of several types of active, pending, and scheduled orders, including clinic medications orders, diagnostic test orders, procedure orders and consult orders; where the start date of the order is 45 days before the date of the Encounter or 45 days after the date of theEncounter. The data comes from all [place] treatment facilities. Test Date/Time Test Type Test Details Facility Name Jan 29, 2024 06:05 PM Consult Order [facility] Cons Cp Bleacher Operator's Choice [facility] Mar 06, 2024 04:47 PM Consult Order [facility] Cons Cp Bleacher Operator's Choice [facility] Lab Results: +/- 30 days of the encounter This section includes the Chemistry and Hematology Lab Results on record with [place] for the patient. Radiology Reports and Pathology Reports are provided separately, in subsequent sections. Lab Results This section contains the Chemistry/Hematology Results that were resulted 30 days before or 30 daysafter the date of the Encounter. Date/Time Source Result Type Result - Unit Interpretation Reference Range Comment Jan 24, 2024 08:23 AM [facility] METHADONE SCREEN Specimen Type: URINE Comment: THIAGO test are qualitative, any L or H flags only indicate a [place] alert was sent. Ordering Provider: NEHEMIAH DAVIES Report Released Date/Time: Jan 22, 2024 11:28 AM Reporting Lab: [facility] [address] [facility] [facility] [address] Performing Lab: [facility] [address] [facility] [facility] [address] METHADONE SCREEN None detected(Nega tive) L Negative Jan 24, 2024 08:23 AM [facility] ALCOHOL, ETHYL URINE PANEL Specimen Type: URINE [...] Jan 22, 2024 11:28 AM Reporting Lab: [address] [address] Performing Lab: [address] [address] ALCOHOL, ETHYL URINE NONE-DETECTED mg/dL NONE-DETEC SIRI, cutoff = 10 mg/dL PH, THIAGO 5.8 [pH] 4-10 CREATININE, THIAGO 29.33 mg/dL >20 SP.GRAVITY, THIAGO 1.009 1.00 3-1.02 0 Jan 24, 2024 08:23 AM [facility] AMPHETAMINES SCREEN PANEL Specimen Type: URINE Comment: [...] Jan 22, 2024 11:28 AM Reporting Lab: [address] [address] Performing Lab: [address] [address] AMPHETAMINES SCREEN NONE-DETECTED None-Detec siri, Cutoff = 1000 ng/mL PH, THIAGO 5.8 [pH] 4-10 CREATININE, THIAGO 29.33 mg/dL >20 SP.GRAVITY, THIAGO 1.009 1.00 3-1.02 0 Jan 24, 2024 08:23 AM [facility] BENZODIAZEPINES SCREEN PANEL Specimen Type: URINE Comment: [...] Jan 22, 2024 11:28 AM Reporting Lab: [address] [address] Performing Lab: [address] [address] BENZODIAZEPINES SCREEN NONE-DETECTED None-Detec siri, Cutoff = 200 ng/mL PH, THIAGO 5.8 [pH] 4-10 CREATININE, THIAGO 29.33 mg/dL >20 SP.GRAVITY, THIAGO 1.009 1.00 3-1.02 0 Jan 24, 2024 08:23 AM [facility] FENTANYL SCREEN PANEL Specimen Type: URINE Comment: [...] Jan 22, 2024 11:28 AM Reporting Lab: [address] [address] Performing Lab: [address] [address] FENTANYL SCREEN NONE-DETECTE D ng/mL Negative: Cutoff = 1.00 ng/mL PH, THIAGO 5.7 [pH] 4-10 CREATININE, THIAGO 29.05 mg/dL >20 SP.GRAVITY, THIAGO 1.010 1.00 3-1.02 0 Jan 24, 2024 08:23 AM [facility] BUPRENORPHINE SCREEN PANEL Specimen Type: URINE Comment: [...] Jan 22, 2024 11:28 AM Reporting Lab: [address] [address] Performing Lab: [place] [id number] BUPRENORPHINE (URINE) NONE-DETECTED None Detected, Cutoff = 10.0 ng/mL PH, THIAGO 5.8 [pH] 4-10 CREATININE, THIAGO 29.33 mg/dL >20 SP.GRAVITY, THIAGO 1.009 1.00 3-1.02 0 Jan 24, 2024 08:23 AM [facility] CANNABINOIDS SCREEN PANEL Specimen Type: URINE Comment: [...] Jan 22, 2024 11:28 AM Reporting Lab: [address] [address] Performing Lab: [address] [address] CANNABINOIDS SCREEN POSITIVE HH None-Detec siri,Cutoff = 50 ng/mL PH, THIAGO 5.8 [pH] 4-10 CREATININE, THIAGO 29.33 mg/dL >20 SP.GRAVITY, THIAGO 1.009 1.00 3-1.02 0 Jan 24, 2024 08:23 AM [facility] COCAINE SCREEN PANEL Specimen Type: URINE Comment: [...] 11 may have been adulterated. Ordering Provider: PAPI DAVIESKA M Report Released Date/Time: Jan 22, 2024 11:28 AM Reporting Lab: [address] [address] Performing Lab: [address] [address] COCAINE SCREEN NONE-DETECTED N one-Detec siri,Cutoff = 300 ng/mL PH, THIAGO 5.8 [pH] 4-10 CREATININE, THIAGO 29.33 mg/dL >20 SP.GRAVITY, THIAGO 1.009 1.00 3-1.02 0 Jan 24, 2024 08:23 AM [facility] OPIATES SCREEN PANEL Specimen Type: URINE Comment: [...] Jan 22, 2024 11:28 AM Reporting Lab: [address] [address] Performing Lab: [address] [address] OPIATES SCREEN NONE-DETECTED N one-Detec siri, Cutoff = 300 ng/mL PH, THIAGO 5.8 [pH] 4-10 CREATININE, THIAGO 29.33 mg/dL >20 SP.GRAVITY, THIAGO 1.009 1.00 3-1.02 0 Jan 24, 2024 08:23 AM [facility] OXYCODONE SCREEN PANEL Specimen Type: URINE Comment: [...] Jan 22, 2024 11:28 AM Reporting [facility]: [facility] [place] [facility] [address] [address] [facility]: [facility] [address] [facility] [address] OXYCODONE SCREEN POSITIVE HH Non e-Detec siri, [...] Jan 30, 2024 07:31 AM 120/70 7 [place] [facility] Social History: Smoking Status (Most current) and [...] 04, 2023 09:00 AM [place]-TOBACCO [facility] Tobacco Use History This section includes a history of the smoking, or tobacco-related health factors, that were collected on or before the date of the Encounter. The data comes from the [place] facility where the Encounter took place. Date/Time Smoking Status/Tobacco Use Comment F [email or web address] Jul 04, 2023 09:00 AM VA-TOBACCO QUIT 15 YRS OR MORE [place] [facility] [place] [facility] Mar 14, 2022 03:02 PM VA-TOBACCO FORMER USER [place] [facility] [place] [facility] Mar 14, 2022 03:02 PM VA-TOBACCO QUIT 15 YRS OR MORE [place] [facility] [place] [facility] Feb 08, 2021 09:00 AM VA-TOBACCO FORMER USER [place] [facility] [place] [facility] Feb 08, 2021 09:00 AM VA-TOBACCO QUIT 15 [facility]RS [facility] [place] [facility] October 09, 2019 01:12 PM [place]-TOBACCO [facility] October 09, 2019 01:12 PM [place]-TOBACCO QUIT 5 TO < 15 YRS [facility] Advance Directives: All historical and current Section Date Range: From patient's date of to the date document was created. This section includes ALL of a patient's completed or amended [place] Advance and Rescinded Directives. The entries below indicate that a directive exists for the patient, but an actual copy is not included with this document. The data comes from all [place] facilities. Date Advance Directives Provider Source Feb 21, 2021 ADVANCE DIRECTIVE BEL ESCALANTE [facility] Encounter Notes: All associated encounter notes This section contains the clinical notes associated to the Encounter. Date/Time Encounter Note(s) Provider Source Jan 30, 2024 08:14 AM PHYSICAL MEDICINE REHAB NOTE: LOCAL TITLE: PM&R BACK/JOINT PROCEDURE NOTE STANDARD TITLE: PHYSICAL MEDICINE REHAB NOTE DATE OF NOTE: JAN 30, 2024@08:14 ENTRY DATE: JAN 30, 2024@08:14:21 AUTHOR: AKI ENG COSIGNER: URGENCY: STATUS: COMPLETED PROCEDURE: subtalar Left injection with cortisone. INDICATION: left ankle pain MEDICATIONS: 40mg triamcinolone and 1mL of 1% lidocaine. HISTORY: reports that the back has been quite uncomfortable but the ankle has been more uncomfortable as of late. Previous left sacroiliac joint injection did not provide any significant improvement in fact he felt some increased discomfort for approximately 2 months. Sitting and standing are bothersome. He does get some pain that radiates distally just below the level of the ankle. He has an aching sensation that can be present for several days. Walking on uneven surfaces is uncomfortable for him. In the past he had Dr. Beckett injected him but this was approximately 2007. EXAM: Exam of the low back demonstrates a right scoliosis with tenderness over the left paralumbar region radiating into the buttock and lateral hamstring region. He has some tenderness in the subtalar joint. There is no motion within the ankle joint itself. Well-healed incisions are noted. Has had several ankle surgeries in the past. There is some slight subtalar motion this does reproduce his symptoms. INFORMED CONSENT: Obtained verbally, and through IMED. The procedure as well as potential risks and benefits of a subacromial shoulder injection were discussed with patient, who agreed to proceed. The potential risks include, but not limited to: local injection reaction, pain, bruising/hematoma, nerve damage, temporary increase in blood sugar (if applicable), adverse side effects to cortisone or lidocaine including rash/itching, infection, and swelling of the shoulder. TIME OUT NOTE TIME:Jan@08:05 [place] correctly stated: [X]Full name: SHAQ GREGORIO [X]Last #: [id number] [X]: Aug PROVIDER NAME: Aki Eng PA-c STAFF NAME: Ayaka Willson RN Lot #:[id number] Exp:May 2025 Patient was seated with shoulder relaxed. The joint was palpated and marked. Cleansed with povidone x3. Direct caudad no touch approach was utilized. 25- gauge 1-1/2 inch needle was advanced in the subtalar joint. After negative aspiration for heme, injectate was given. needle was withdrawn and light compression was applied with a 2x2 gauze until bleeding stopped. A band-aid was applied. No complications. No blood loss. The patient tolerated the procedure well without any immediate adverse side effects. Patient was instructed on the use of ice prn post injection pain/swelling. The patient was discharged home with instructions to monitor for any adverse reactions/side effects, and to contact me with any issues. Pre-procedure pain level: 6/10 Post-procedure pain level: 10 73-year-old with advanced scoliosis and degenerative disc changes. Left L5-S1 transforaminal epidural injection will be provided. Previous epidural injections provided approximately 60% relief. Last visit he was having more discomfort over the sacroiliac joint but unfortunately this injection did not help him. We therefore will go back to L5-S1 interlaminar injection is to be scheduled. 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 Subtalar injection provided today. If effective can repeat in 4 months. Medication Reconciliation: Outpatient: Has the patient been taking medications as documented in the EMLR? YES: The patient has been taking medications as documented in the EMLR. Essential Medication List for Review used to complete this medication reconciliation. INCLUDED IN THIS LIST: Alphabetical list of active outpatient prescriptions dispensed from this [facility] (local) and dispensed from another [place] or [place] facility (remote) as well as [...] JLV. Allergies/ADRs (Tool #5) FACILITY ALLERGY/ADR -------- HEALTH SYSTEM NO KNOWN ALLERGIES [facility] NEURONTIN Med Recon NoGlossary (Tool #1) INCLUDED IN THIS LIST: Alphabetical list of active outpatient prescriptions dispensed from this [place] (local) and dispensed from another [place] or [place] facility (remote) as well as inpatient orders (local pending and active), local clinic medications, locally documented non-VA medications, and local prescriptions that have or been discontinued in the past 90 days. Non-VA Meds Last Documented On: Nov 20, 2018 NOTE The display of VA prescriptions dispensed from another [place] or DoD facility (remote) is limited to active outpatient prescription entries matched to National Drug File at the originating site and may not include some items such as investigational drugs, compounds, etc. NOT INCLUDED IN THIS LIST: Medications self-entered by the patient into personal health records (i.e. [employer]) are NOT included in this list. Non-VA medications documented outside this VA, remote inpatient orders (regardless of status) and [...] TABLET BY MOUTH EVERY 12 HOURS Rx# [id number] Last Released: 12/20/23 Qty/Days Supply: 180 Rx Expiration Date: 06/20/24 Refills Remainin OUTPT DRONEDARONE 400MG TAB (Status = Active) TAKE ONE TABLET BY MOUTH TWICE DAILY Rx# [id number] Last Released: 12/20/23 Qty/Days Supply: 180 Rx Expiration Date: 09/17/24 Refills Remainin OUTPT FLUTICASONE PROP 50MCG 120D NASAL INHL (Status = ) INSTILL 1 SPRAY INTO EACH NOSTRIL AT BEDTIME Rx# [id number] Last Released: 11/12/22 Qty/Days Supply: 06/11 Rx Expiration Date: 11/09/23 Refills Remainin Indication: FOR NASAL IRRITATION/INFLAMMATION OUTPT LATANOPROST 0.005% OPH SOLN (Status = Active) 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 Rx Expiration Date: 08/12/24 Refills Remainin Indication: FOR WIDE-ANGLE GLAUCOMA OUTPT LIDOCAINE 5% PATCH (Status = Active) APPLY 1 PATCH TOPICALLY ONCE DAILY FOR NERVE PAIN (LEAVE PATCH ON FOR 12 HOURS, THEN REMOVE PATCH) Rx# [id number] Last Released: 10/14/23 Qty/Days Supply: Rx Expiration Date: 10/11/24 Refills Remainin Indication: FOR NERVE PAIN OUTPT LOVASTATIN 20MG TAB (Status = Active) TAKE ONE TABLET BY MOUTH AT BEDTIME FOR CHOLESTEROL -- AVOID GRAPEFRUIT JUICE Rx# [id number] Last Released: 01/16/24 Qty/Days Supply: Rx Expiration Date: 10/11/24 Refills Remainin OUTPT METOPROLOL TARTRATE 25MG TAB (Status = Active) TAKE ONE-HALF TABLET BY MOUTH TWICE DAILY FOR BLOOD PRESSURE/HEART Rx# [id number] Last Released: 10/10/23 Qty/Days Supply: Rx Expiration Date: 10/08/24 Refills Remainin Indication: FOR HIGH BLOOD PRESSURE OUTPT NALOXONE HCL 4MG/SPRAY SOLN NASAL SPRAY (Status = Active) INSTILL 1 SPRAY ONE NOSTRIL ONE TIME NEEDED FOR OPIOID OVERDOSE CALL 911 WITH ADMINISTRATION. REPEAT WITH SECOND DEVICE IF SYMPTOMS RETURN Rx# [id number] Last Released: 01/25/24 Qty/Days Supply: Rx Expiration Date: 04/20/24 Refills Remainin Indication: FOR OPIOID OVERDOSE OUTPT NUTRITION SUPL ENSURE PLUS/VANILLA LIQ (Status = Active) DRINK 1 CAN BY MOUTH TWICE DAILY Rx# [id number] Last Released: 01/04/24 Qty/Days Supply: Rx Expiration Date: 04/29/24 Refills Remainin OUTPT OMEPRAZOLE 20MG EC CAP (Status = Active) TAKE TWO CAPSULES BY MOUTH EVERY MORNING 30 MINUTES BEFORE BREAKFAST Rx# [id number] Last Released: 01/16/24 Qty/Days Supply: Rx Expiration Date: 10/11/24 Refills Remainin OUTPT ONDANSETRON HCL 4MG TAB (Status = Active) TAKE ONE TABLET BY MOUTH ONCE DAILY NEEDED FOR VOMITING/NAUSEA Rx# [id number] Last Released: 04/01/23 Qty/Days Supply: Rx Expiration Date: 03/29/24 Refills Remainin OUTPT OXYCODONE HCL 5MG/APAP 325MG TAB (Status = ) TAKE 1 TABLET BY MOUTH THREE TIMES DAILY NEEDED NEXT FILL 11/25/23 Rx# [id number] Last Released: 10/28/23 Qty/Days Supply: Rx Expiration Date: 11/22/23 Refills Remainin Indication: FOR PAIN OUTPT OXYCODONE HCL 5MG/APAP 325MG TAB (Status = ) TAKE 1 TABLET BY MOUTH THREE TIMES DAILY NEEDED NEXT FILL 12/23/23 Rx# [id number] Last Released: 11/27/23 Qty/Days Supply: Rx Expiration Date: 12/22/23 Refills Remainin OUTPT OXYCODONE HCL 5MG/APAP 325MG TAB (Status = Discontinued) TAKE 1 TABLET BY MOUTH THREE TIMES DAILY NEEDED FOR PAIN NEXT FILL 01/22/24 Rx# [id number] Last Released: 12/25/23 Qty/Days Supply: Rx Expiration Date: 01/21/24 Refills Remainin Indication: FOR PAIN OUTPT OXYCODONE HCL 5MG/APAP 325MG TAB (Status = Active) TAKE 1 TABLET BY MOUTH THREE TIMES DAILY NEEDED FOR PAIN NEXT FILL 02/19/24 Rx# [id number] Last Released: 01/21/24 Qty/Days Supply: Rx Expiration Date: 02/20/24 Refills Remainin Indication: FOR PAIN OUTPT ROPINIROLE HCL 0.25MG TAB (Status = Discontinued) TAKE ONE TABLET BY MOUTH DAILY Rx# [id number] Last Released: 09/03/23 Qty/Days Supply: Rx Expiration Date: 11/09/23 Refills Remainin OUTPT ROPINIROLE HCL 0.25MG TAB (Status = Active) TAKE ONE TABLET BY MOUTH DAILY Rx# [id number] Last Released: 12/11/23 Qty/Days Supply: Rx Expiration Date: 12/08/24 Refills Remainin SUPPLIES /robe/ AKI ENG [facility] Signed: 01/30/2024 08:22 AKI ENG [facility]
--- OUTSIDE RECORDS SUMMARY | 2024-04-28 11:05 | XMS_ITS | Encounter Summary ---
Author Name [facility] [place] [facility] [place] Address [address] [place] [address] Care Team Providers Care General Farm Hand Name Role Phone NEHEMIAH CUEVAS Primary Care [...] Name Patient's Relationship to Policy Orellana ANA [facility] Aug 11, 2014 [id number] DHAVAL SHAQ Wagner PATIENT ANA BCBS [facility] MEDICARE SUPPLEMEN ARTEMIO [facility] Aug 11, 2014 [id number] DHAVAL SHAQ Wagner [facility]IENT [facility] SUPPLEMEN ARTEMIO MEDEX 2 Aug 11, 2014 [id number] [phone] DHAVAL SHAQ Wagner PATIENT [place] SUPPLEMEN ARTEMIO MEDEX 2 Aug 11, 2014 [id number] DHAVAL SHAQ Wagner [place] SUPPLEMEN ARTEMIO MEDEX 2 Aug 11, 2014 [id number] ARCHAMBEA SHAQ Wagner PATIENT [place] MEDICARE SUPPLEMEN [facility] [place] [facility] Aug 11, 2014 [id number] [phone] LAURIEEA SHAQ Wagner PATIENT USMANA [facility] (WNR) MEDICARE ADVANTAGE HUMAN A INSUR [facility] Jan 11, 2022 [id number] [phone] ARCHOCTAVIOEA SHAQ Wagner PATIENT USMANA MCR (WNR) MEDICARE ADVANTAGE [facility] (WNR) Jan 11, 2022 [id number] [phone] ARCHAMBEA USHAQ PATIENT MEDICARE (WNR) MEDICARE (M) PART A Dec 11, 2014 PART A [id number] ARCHAMBEA U,SHAQ PATIENT MEDICARE (WNR) MEDICARE (M) PART A Aug 11, 2014 PART A [id number] [phone] ARCHAMBEA U,SHAQ PATIENT MEDICARE (WNR) MEDICARE () PART B Aug 11, 2014 PART B [id number] ARCHAMBEA U,SHAQ PATIENT MEDICARE (WNR) MEDICARE () PART A Aug 11, 2014 PART A [id number] ARCHAMBEA U,SHAQ PATIENT MEDICARE (WNR) MEDICARE () PART B Aug 11, 2014 PART B [id number] ARCHAMBEA U,SHAQ PATIENT MEDICARE (WNR) MEDICARE () PART A Aug 11, 2014 PART A [id number] [phone] ARCHAMBEA U,SHAQ PATIENT MEDICARE (WNR) MEDICARE (M) PART B Aug 11, 2014 PART B [id number] [phone] ARCHAMBEA U,SHAQ PATIENT MEDICARE (WNR) MEDICARE (M) PART B Aug 11, 2014 PART B [id number] ARCHAMBEA SHAQ Wagner PATIENT [facility] (WNR) MEDICARE ADVANTAGE [facility] (WNR) May 13, 2020 [id number] ARCHAMBEA USHAQ PATIENT Selected Encounter This section includes the information on record at [place] for the Encounter. Date/Time Encounter Type Encounter Description Reason Pro vider Source Jan 23, 2024 08:17 AM Outpatient Encounter ADMIN PAT ACTIVTIES (MASNONCT) IHE Encounter Template Text not used by [place] Plan of Treatment: Future Appointments (+ 6 months) and Future Tests (+/- 45 days) The Plan of Treatment section includes future care activities for the patient from all [place] [facility] This section includes future appointments and future orders which are active, pending or scheduled. Future Appointments This section includes appointments that were scheduled to occur 6 months from the date of the Encounter, up to a maximum of 20 appointments. The data comes from all [facility]. Appointment Date/Time Appointment Type Appointme nt Facility Name Jan 28, 2024 08:00 AM AM[place]ULATORY [place]ICINE [place] [facility] [place] [facility] Jan 30, 2024 07:30 AM AM[place]ULAT[place]IC[place] [facility] [place] [facility] Mar 06, 2024 08:45 AM AMBULATORY [place]ICINE [place] [facility] [place] [facility] Mar 11, 2024 08:30 AM [facility]ICINE [facility] Mar 16, 2024 08:30 AM AMBULATORY - MEDICINE [place] [facility] [place] [facility] Apr 07, 2024 10:00 AM AMBULATORY - MEDICINE [place] [facility] [place] [facility] Apr 20, 2024 08:30 AM [facility]ORY [facility]IC[facility] Apr 28, 2024 11:00 AM AMBULATORY - MEDICINE [place] [facility] [place] [facility] Jun 22, 2024 08:30 AM AMBULATORY - NONE [place] [facility] [place] [facility] Jul 10, 2024 09:00 AM [facility]ATORY - MEDICINE [facility] Jul 22, 2024 08:00 AM [facility]ATORY - [facility]ICINE [facility] Active, Pending, and Scheduled Orders This section includes a listing of several types of active, pending, and scheduled orders, including clinic medications orders, diagnostic test orders, procedure orders and consult orders; where the start date of the order is 45 days before the date of the Encounter or 45 days after the date of theEncounter. The data comes from all [facility]. Test Date/Time Test Type Test Details Facility Name Jan 29, 2024 06:05 PM Consult Order COMM[facility]ITY [facility]-CARDIOLOGY Cons [employer] [facility] Mar 06, 2024 04:47 PM Consult Order COMMUNITY CARE-DENTAL GENERAL [facility] Lab Results: +/- 30 days of the [...] Range Comment Jan 24, 2024 08:23 AM [facility] METHADONE SCREEN Specimen Type: URINE Comment: THIAGO test are qualitative, any L or H flags only indicate a [place] alert was sent. Ordering Provider: NEHEMIAH DAVIES Report Released Date/Time: Jan 22, 2024 11:28 AM Reporting Lab: [facility] [address] [facility] [address] Performing Lab: [facility] [address] [facility] [address] METHADONE SCREEN None detected(Nega tive) L Negative Jan 24, 2024 08:23 AM [facility] ALCOHOL, ETHYL URINE PANEL Specimen Type: URINE [...] Jan 22, 2024 11:28 AM Reporting Lab: [facility] [address] [facility] [address] Performing Lab: [facility] [address] [facility] [address] ALCOHOL, ETHYL URINE NONE-DETECTED mg/dL NONE-DETEC SIRI, cutoff = 10 mg/dL PH, THIAGO 5.8 [pH] 4-10 CREATININE, THIAGO 29.33 mg/dL >20 SP.GRAVITY, THIAGO 1.009 1.00 3-1.02 0 Jan 24, 2024 08:23 AM [facility] AMPHETAMINES SCREEN PANEL Specimen Type: URINE Comment: [...] Jan 22, 2024 11:28 AM Reporting Lab: [address] [address] Performing Lab: [address] [address] AMPHETAMINES SCREEN NONE-DETECTED None-Detec siri, Cutoff = 1000 ng/mL PH, THIAGO 5.8 [pH] 4-10 CREATININE, THIAGO 29.33 mg/dL >20 SP.GRAVITY, THIAGO 1.009 1.00 3-1.02 0 Jan 24, 2024 08:23 AM [facility] BENZODIAZEPINES SCREEN PANEL Specimen Type: URINE Comment: [...] Jan 22, 2024 11:28 AM Reporting Lab: [address] [address] Performing Lab: [address] [address] BENZODIAZEPINES SCREEN NONE-DETECTED None-Detec siri, Cutoff = 200 ng/mL PH, THIAGO 5.8 [pH] 4-10 CREATININE, THIAGO 29.33 mg/dL >20 SP.GRAVITY, THIAGO 1.009 1.00 3-1.02 0 Jan 24, 2024 08:23 AM [facility] FENTANYL SCREEN PANEL Specimen Type: URINE Comment: [...] Jan 22, 2024 11:28 AM Reporting Lab: [address] [address] Performing Lab: [address] [address] FENTANYL SCREEN NONE-DETECTE D ng/mL Negative: Cutoff = 1.00 ng/mL PH, THIAGO 5.7 [pH] 4-10 CREATININE, THIAGO 29.05 mg/dL >20 SP.GRAVITY, THIAGO 1.010 1.00 3-1.02 0 Jan 24, 2024 08:23 AM [facility] BUPRENORPHINE SCREEN PANEL Specimen Type: URINE Comment: [...] Jan 22, 2024 11:28 AM Reporting Lab: [address] [address] Performing Lab: [address] [address] BUPRENORPHINE (URINE) NONE-DETECTED None Detected, Cutoff = 10.0 ng/mL PH, THIAGO 5.8 [pH] 4-10 CREATININE, THIAGO 29.33 mg/dL >20 SP.GRAVITY, THIAGO 1.009 1.00 3-1.02 0 Jan 24, 2024 08:23 AM [facility] CANNABINOIDS SCREEN PANEL Specimen Type: URINE Comment: [...] Jan 22, 2024 11:28 AM Reporting Lab: [place] rumr: [facility] [id number] [address] Performing Lab: [address] [address] CANNABINOIDS SCREEN POSITIVE HH None-Detec siri,Cutoff = 50 ng/mL PH, THIAGO 5.8 [pH] 4-10 CREATININE, THIAGO 29.33 mg/dL >20 SP.GRAVITY, THIAGO 1.009 1.00 3-1.02 0 Jan 24, 2024 08:23 AM [facility] COCAINE SCREEN PANEL Specimen Type: URINE Comment: [...] Jan 22, 2024 11:28 AM Reporting Lab: [facility] [address] [address] Performing Lab: [address] [address] COCAINE SCREEN NONE-DETECTED N one-Detec siri,Cutoff = 300 ng/mL PH, THIAGO 5.8 [pH] 4-10 CREATININE, THIAGO 29.33 mg/dL >20 SP.GRAVITY, THIAGO 1.009 1.00 3-1.02 0 Jan 24, 2024 08:23 AM [facility] OPIATES SCREEN PANEL Specimen Type: URINE Comment: [...] Jan 22, 2024 11:28 AM Reporting Lab: [address] [address] Performing Lab: [address] [address] OPIATES SCREEN NONE-DETECTED N one-Detec siri, Cutoff = 300 ng/mL PH, THIAGO 5.8 [pH] 4-10 CREATININE, THIAGO 29.33 mg/dL >20 SP.GRAVITY, THIAGO 1.009 1.00 3-1.02 0 Jan 24, 2024 08:23 AM [facility] OXYCODONE SCREEN PANEL Specimen Type: URINE Comment: [...] Jan 22, 2024 11:28 AM Reporting Lab: [facility] [address] [address] Performing Lab: [address] [address] OXYCODONE SCREEN POSITIVE HH Non e-Detec siri, Cutoff = 100 ng/mL PH, THIAGO 5.8 [pH] 4-10 CREATININE, THIAGO 29.33 mg/dL >20 SP.GRAVITY, THIAGO 1.009 1.00 3-1.02 0 Dec 30, 2023 08:44 AM [facility] PSA Specimen Type: SERUM No comment entered. Ordering Provider: NEHEMIAH DAVIES Report Released Date/Time: Jul 04, 2023 09:50 AM Reporting Lab[facility] [place] [facility] [address] [facility] [address] Performing Lab: [facility] [place] [address] [address] PSA 0.26 ng/mL 0.00-4.00 Dec 30, 2023 08:44 AM [facility] MAGNESIUM Specimen Type: SERUM No comment entered. Ordering Provider: NEHEMIAH DAVIES Report Released Date/Time: Jul 04, 2023 09:50 AM Reporting Lab: [facility] [place] [address] [address] Performing Lab: [facility] [address] MAGNESIUM 1.9 mg/dL 1.6-2.6 Dec 30, 2023 08:44 AM [facility] TSH Specimen Type: SERUM No comment entered. Ordering Provider: NEHEMIAH DAVIES Report Released Date/Time: Jul 04, 2023 09:50 AM Reporting Lab: [facility] [place] [address] [address] Performing Lab: [facility] [address] [address] TSH 0.57 u[IU]/mL 0.35-5.00 Dec 30, 2023 08:44 AM [facility] HEMOGLOBIN A1C PANEL Specimen Type: BLOOD Comment: [...] Jul 04, 2023 09:50 AM Reporting Lab: [address] [address] Performing Lab: [address] [address] HEMOGLOBIN A1C 4.9 4.0-5.6 Dec 30, 2023 08:44 AM [facility] BASIC METABOLIC PANEL (fasting) Specime n Type: SERUM No comment entered. Ordering Provider: NEHEMIAH DAVIES Report Released Date/Time: Jul 04, 2023 09:50 AM Reporting Lab: [address] [address] Performing Lab: [address] [address] UREA NITROGEN 13 mg/dL 7-25 GLUCOSE 100 mg/dL 65-100 SODIUM 136 mmol/L 135-145 POTASSIUM 4.5 mmol/L 3.5-5.0 CHLORIDE 102 mmol/L 100-110 CO2 26 meq/L 20-30 CREATININE, Serum 0.96 mg/dL 0.50-1.40 eGFR(CKD-EPI 2020) 83 mL/min >60 Dec 30, 2023 08:44 AM [facility] LIPID PANEL FASTING Specimen Type: SERUM No comment entered. Ordering Provider: NEHEMIAH DAVIES Report Released Date/Time: Jul 04, 2023 09:50 AM Reporting Lab: [address] [address] Performing Lab: [address] [address] CHOLESTEROL 159 mg/dL TRIGLYCERIDE 76 mg/dL 0-150 LDL calculated 66 mg/dL 0-129 CHOL/HDL 2.0 HDL CHOLESTEROL 78 mg/dL H 40-60 Dec 30, 2023 08:44 AM [facility] LIVER FUNCTION Specimen Type: SERUM No comment entered. Ordering Provider: NEHEMIAH DAVIES Report Released Date/Time: Jul 04, 2023 09:50 AM Reporting Lab: [address] [address] Performing Lab: [address] [address] PROTEIN,TOTAL 6.4 g/dL 6.0-8.3 ALBUMIN 4.0 g/dL 3.5-5.0 ALKALINE PHOSPHATASE 64 U/L 40-150 AST 17 U/L 5-34 ALT 19 U/L BILIRUBIN, TOTAL 0.5 mg/dL 0.2-1.2 Dec 30, 2023 08:44 AM [facility] CBC AND DIFF (AUTO) Specimen Type: BLOOD No comment entered. Ordering Provider: NEHEMIAH DAVIES Report Released Date/Time: Jul 04, 2023 09:50 AM Reporting Lab: [address] [address] Performing Lab: [address] [address] WBC 6.84 10*3/uL 4.50-11.00 RBC 4.52 10*6/uL [...] 04, 2023 09:00 AM VA-TOBACCO [facility] Tobacco Use History This section includes a history of the smoking, or tobacco-related health factors, that were collected on or before the date of the Encounter. The data comes from the [place] facility where the Encounter took place. Date/Time Smoking Status/Tobacco Use Comment F acility Jul 04, 2023 09:00 AM VA-TOBACCO QUIT 15 YRS OR MORE [place] [facility] [place] [facility] Mar 14, 2022 03:02 PM VA-TOBACCO FORMER USER [place] [facility] [place] [facility] Mar 14, 2022 03:02 PM VA-TOBACCO QUIT 15 YRS OR MORE [place] [facility] [place] [facility] Feb 08, 2021 09:00 AM VA-TOBACCO FORMER USER [place] [facility] [place] [facility] Feb 08, 2021 09:00 AM VA-TOBACCO QUIT 15 YRS OR MORE [place] [facility] [place] [facility] October 09, 2019 01:12 PM VA-TOBACCO FORMER USER [place] [facility] [place] [facility] October 09, 2019 01:12 PM VA-TOBACCO QUIT 5 TO < 15 YRS [place] [facility] [place] [facility] Advance Directives: All historical and [...] Feb 21, 2021 ADVANCE DIRECTIVE BEL ESCALANTE [facility] Encounter Notes: All associated encounter notes This section contains the clinical notes associated to the Encounter. Date/Time Encounter Note(s) Provider Source Jan 23, 2024 08:17 AM ADMINISTRATIVE NOTE: LOCAL TITLE: CCC: SCHEDULING ADMINISTRATION STANDARD TITLE: ADMINISTRATIVE NOTE DATE OF NOTE: JAN 23, 2024@08:17:30 ENTRY DATE: JAN 23, 2024@08:17:30 AUTHOR: ELIE VERONICA EXP COSIGNER: URGENCY: STATUS: COMPLETED CCC: SCHEDULING ADMINISTRATION Has ADDENDA Patient Demographics Patient Name: SHAQ GREGORIO Patient Primary Phone: [phone] Patient Primary Address: [address] [place] [id number] Patient : 1950 Patient Age: 73 Caller/Recipient Relation to Patient: Self Administrative Administrative Note Reason: Returned Call Administrative Note Comments: returning call to pact, please call back [phone] IMPORTANT: This note was created by [facility] staff. Please do not alert the staff member by adding them as a signer for future communications. Alerts are not monitored by this user. /robe/ ELIE MANCILLA [facility] Signed: 01/23/2024 08:17 Receipt Acknowledged By: 01/23/2024 08:21 /robe/ NATA MULLIGAN LPN LPN 01/27/2024 13:52 /robe/ CECILIO AL RN REGISTERED NURSE 01/23/2024 ADDENDUM STATUS: COMPLETED contacted and spoke with spouse Audra - on comm auth -,message delivered and he will come to complete labs. /robe/ NATA MULLIGAN LPN LPN Signed: 01/23/2024 08:23 ELIE VERONICA [facility]
--- OUTSIDE RECORDS SUMMARY | 2024-04-28 11:05 | XMS_ITS | Encounter Summary ---
Author Name [place] Address [address] [place] [address] Care Team Providers Care Ticket Sales Supervisor Name Role Phone NEHEMIAH CUEVAS Primary [...] [facility] Aug 11, 2014 [id number] DHAVAL SHAQ Wagner PATIENT [facility] BCBS [facility] MED[facility]ARE SUPPLEMEN ARTEMIO [facility] Aug 11, 2014 [id number] DHAVAL SHAQ Wagner PATIENT [place] MED[place] SUPPLEMEN ARTEMIO MEDEX 2 Aug 11, 2014 [id number] DHAVAL SHAQ Wagner [place]IENT [place] SUPPLE[place] ARTEMIO MEDEX 2 Aug 11, 2014 [id number] [phone] DHAVAL SHAQ Wagner [place]IENT [place] SUPPLEMEN ARTEMIO MEDEX 2 Aug 11, 2014 [id number] [phone] LAURIESHAQ CAST PATIENT [place] MEDICARE SUPPLEMEN [employer] [facility] [place] Aug 11, 2014 [id number] [phone] SHAQ WONG PATIENT USMANA MCR (WNR) MEDICARE ADVANTAGE HUMAN A INSUR [place] [facility] Jan 11, 2022 [id number] [phone] ARCHOCTAVIOEA SHAQ Wagner PATIENT USMANA MCR (WNR) MEDICARE ADVANTAGE [facility] (WNR) Jan 11, 2022 [id number] [phone] ARCHOCTAVIOEA SHAQ Wagner PATIENT MEDICARE (WNR) MEDICARE (M) PART A Dec 11, 2014 PART A [id number] [phone] ARCHAMBEA SHAQ Wagner PATIENT MEDICARE (WNR) MEDICARE (M) PART A Aug 11, 2014 PART A [id number] [phone] ARCHAMBEA SHAQ Wagner PATIENT MEDICARE (WNR) MEDICARE (M) PART B Aug 11, 2014 PART B [id number] ARCHAMBEA SHAQ Wagner PATIENT MEDICARE (WNR) MEDICARE (M) PART A Aug 11, 2014 PART A [id number] [phone] ARCHAMBEA Bernard,SHAQ PATIENT MEDICARE (WNR) MEDICARE (M) PART B Aug 11, 2014 PART B [id number] ARCHAMBEA Bernard,SHAQ PATIENT MEDICARE (WNR) MEDICARE (M) PART A Aug 11, 2014 PART A [id number] ARCHAMBEA SHAQ Wagner PATIENT MEDICARE (WNR) MEDICARE (M) PART B Aug 11, 2014 PART B [id number] ARCHAMBEA Bernard,SHAQ PATIENT MEDICARE (WNR) MEDICARE (M) PART B Aug 11, 2014 PART B [id number] [phone] ARCHOCTAVIOEA SHAQ Wagner [facility] (WNR) MEDICARE ADVANTAGE [facility] (WNR) May 13, 2020 [id number] [phone] ARCHOCTAVIOEA SHAQ Wagner PATIENT Selected Encounter This section includes the information on record at [place] for the Encounter. Date/Time Encounter Type Encounter Description Reason Provider Source Mar 11, 2024 08:30 AM OFFICE O/P EST LOW 20 MIN PODIATRY ICD-10-CM L60.0 Ingrowing nail RINA CESAR [place] Encounter Template Text not used by [place] Assessments - Encounter Diagnoses This section includes the primary and secondary diagnoses documented for the Encounter. Date/Time Primary/Secondary Diagnosis Diagnosis Name Provider Source Mar 11, 2024 08:56 AM PRIMARY Ingrowing nail RINA CESAR [place] Mar 11, 2024 08:56 AM SECONDARY Pain in left toe(s) RINA CESAR [place] Mar 11, 2024 08:56 AM SECONDARY Pain in right toe(s) RINA CESAR [place] Mar 11, 2024 08:56 AM SECONDARY Peripheral vascular disease, unspecified RINA CESAR [place] Plan of Treatment: Future Appointments (+ 6 months) and Future Tests (+/- 45 days) The Plan of Treatment section includes future care activities for the patient from all [place] [facility] This section includes future appointments and future orders which are active, pending or scheduled. Future Appointments This section includes appointments that were scheduled to occur 6 months from the date of the Encounter, up to a maximum of 20 appointments. The data comes from all [facility]. Appointment Date/Time Appointment Type Appointme nt Facility Name Mar 16, 2024 08:30 AM AMBULATORY [facility] [place] [facility] Apr 07, 2024 10:00 AM AM[place]ULATORY [place] MEDIC[place] [facility] Apr 20, 2024 08:30 AM AMBULATORY - MEDICINE [facility] Apr 28, 2024 11:00 AM AMBULATORY - MEDICINE [place] [facility] Jun 22, 2024 08:30 AM AMBULATORY - NONE [place] [facility] [place] [facility] Jul 10, 2024 09:00 AM [facility] Jul 22, 2024 08:00 AM AMBULATORY - MEDICINE [facility] Active, Pending, and Scheduled Orders This [...] 06:05 PM Consult Order COMMUNITY CARE-CARDIOLOGY Cons Data [facility] Mar 06, 2024 04:47 PM Consult Order COMMUNITY CARE-DENTAL GENERAL [facility] Data [facility] CNTRL [facility] Apr 20, 2024 01:10 PM Consult Order COMMUNITY CARE-UROLOGY Cons Data [facility] Social History: Smoking Status (Most current) and Tobacco Use (All prior to encounter date) This section includes the most current, and the historical, smoking and tobacco- related health factors from the [place] facility where the Encounter took place. Current Smoking Status This section includes the most current smoking, or tobacco-related health factor, from the [place] facility where the Encounter took place. Date/Time Current Smoking Status Comment Facil ity Oct 31, 2018 11:38 AM VA-TOBACCO QUIT 15 YRS OR MORE [place] Tobacco Use History This section includes a history of the smoking, or tobacco-related health factors, that were collected on or before the date of the Encounter. The data comes from the [place] facility where the Encounter took place. Date/Time Smoking Status/Tobacco Use Comment F acility Oct 31, 2018 11:38 AM VA-TOBACCO QUIT 15 YRS OR MORE [place] Jul 12, 2017 08:51 AM QUIT TOBACCO USE > 7 YEARS AGO [place] Mar 30, 2016 08:29 AM QUIT TOBACCO USE > 7 YEARS AGO [place] Mar 04, 2015 10:57 AM QUIT TOBACCO USE > 7 YEARS AGO [place] Advance Directives: All historical and current Section Date Range: From patient's date of to the date document was created. This section includes ALL of a patient's completed or amended [place] Advance and Rescinded Directives. The entries below indicate that a directive exists for the patient, but an actual copy is not included with this document. The data comes from all [facility]. Date Advance Directives Provider Source Feb 21, 2021 ADVANCE DIRECTIVE BEL [facility] Encounter Notes: All associated encounter notes This section contains the clinical notes associated to the Encounter. Date/Time Encounter Note(s) Provider Source Mar 11, 2024 07:30 AM PODIATRY NOTE: LOCAL TITLE: PODIATRY NOTE STANDARD TITLE: PODIATRY NOTE DATE OF NOTE: MAR 11, 2024@07:30 ENTRY DATE: MAR 11, 2024@07:30:53 AUTHOR: RINA CESAR EXP COSIGNER: URGENCY: STATUS: COMPLETED NOTE: HAS RECEIVED BOTH COVID VACCINE DOSES + BOOSTER AT [facility] LAST SEEN FOR TREATMENT: 10/23/2023 s: Pt. is a 73 yo alert [facility] MALE who is seen for CONTINUED [...] present physical-medical status. Protective sensation utilizing a [place]-Elaine lOg monofilament is 10/10 bilateral. BIOMECHANICAL: Exam [...] this VA (local) and dispensed from another [place] or DoD facility (remote) as well as [...] JLV. Allergies/ADRs (Tool #5) FACILITY ALLERGY/ADR -------- [facility] NO KNOWN ALLERGIES [place] [facility] NEURONTIN Med Recon NoGlossary (Tool #1) INCLUDED IN THIS LIST: Alphabetical list of active outpatient prescriptions dispensed from this [place] (local) and dispensed from another [place] or [facility] facility (remote) as well as inpatient orders (local pending and active), local clinic medications, locally documented non-VA medications, and local prescriptions that have or been discontinued in the past 90 days. Non-VA Meds Last Documented On: Nov 20, 2018 NOTE The display of VA prescriptions dispensed from another [place] or DoD facility (remote) is limited to active outpatient prescription entries matched to National Drug File at the originating site and may not include some items such as investigational drugs, compounds, etc. NOT INCLUDED IN THIS LIST: Medications self-entered by the patient into personal health records (i.e. [employer]) are NOT included in this list. 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 Rx Expiration Date: 08/12/24 Refills Remainin Indication: FOR WIDE-ANGLE GLAUCOMA OUTPT LIDOCAINE 5% PATCH (Status = Active) APPLY 1 PATCH TOPICALLY ONCE DAILY FOR NERVE PAIN (LEAVE PATCH ON FOR 12 HOURS, THEN REMOVE PATCH) Rx# [id number] Last Released: 10/14/23 Qty/Days Supply: Rx Expiration Date: 10/11/24 Refills Remainin Indication: FOR NERVE PAIN OUTPT LOVASTATIN 20MG TAB (Status = Active) TAKE ONE TABLET BY MOUTH AT BEDTIME FOR CHOLESTEROL -- AVOID GRAPEFRUIT JUICE Rx# [id number] Last Released: 01/16/24 Qty/Days Supply: Rx Expiration Date: 10/11/24 Refills Remainin OUTPT METOPROLOL TARTRATE 25MG TAB (Status = Active) TAKE ONE-HALF TABLET BY MOUTH TWICE DAILY FOR BLOOD PRESSURE/HEART Rx# [id number] Last Released: 10/10/23 Qty/Days Supply: Rx Expiration Date: 10/08/24 Refills Remainin Indication: FOR HIGH BLOOD PRESSURE OUTPT NALOXONE HCL 4MG/SPRAY SOLN NASAL SPRAY (Status = Active) INSTILL 1 SPRAY ONE NOSTRIL ONE TIME NEEDED FOR OPIOID OVERDOSE CALL 911 WITH ADMINISTRATION. REPEAT WITH SECOND DEVICE IF SYMPTOMS RETURN Rx# [id number] Last Released: 01/25/24 Qty/Days Supply: Rx Expiration Date: 04/20/24 Refills Remainin Indication: FOR OPIOID OVERDOSE OUTPT NUTRITION SUPL ENSURE PLUS/VANILLA LIQ (Status = Active) DRINK 1 CAN BY MOUTH TWICE DAILY Rx# [id number] Last Released: 01/04/24 Qty/Days Supply: Rx Expiration Date: 04/29/24 Refills Remainin OUTPT OMEPRAZOLE 20MG EC CAP (Status = Active) TAKE TWO CAPSULES BY MOUTH EVERY MORNING 30 MINUTES BEFORE BREAKFAST Rx# [id number] Last Released: 01/16/24 Qty/Days Supply: Rx Expiration Date: 10/11/24 Refills Remainin OUTPT ONDANSETRON HCL 4MG TAB (Status = Active) TAKE ONE TABLET BY MOUTH ONCE DAILY NEEDED FOR VOMITING/NAUSEA Rx# [id number] Last Released: 03/09/24 Qty/Days Supply: Rx Expiration Date: 03/29/24 Refills Remainin OUTPT OXYCODONE HCL 5MG/APAP 325MG TAB (Status = ) TAKE 1 TABLET BY MOUTH THREE TIMES DAILY NEEDED NEXT FILL 12/23/23 Rx# [id number] Last Released: 11/27/23 Qty/Days Supply: Rx Expiration Date: 12/22/23 Refills Remainin OUTPT OXYCODONE HCL 5MG/APAP 325MG TAB (Status = Discontinued) TAKE 1 TABLET BY MOUTH THREE TIMES DAILY NEEDED FOR PAIN NEXT FILL 01/22/24 Rx# [id number] Last Released: 12/25/23 Qty/Days Supply: Rx Expiration Date: 01/21/24 Refills Remainin Indication: FOR PAIN OUTPT OXYCODONE HCL 5MG/APAP 325MG TAB (Status = Discontinued) TAKE 1 TABLET BY MOUTH THREE TIMES DAILY NEEDED FOR PAIN NEXT FILL 02/19/24 Rx# [id number] Last Released: 01/21/24 Qty/Days Supply: Rx Expiration Date: 02/20/24 Refills Remainin Indication: FOR PAIN OUTPT OXYCODONE HCL 5MG/APAP 325MG TAB (Status = Active) TAKE 1 TABLET BY MOUTH THREE TIMES DAILY NEEDED FOR PAIN NEXT FILL 03/18/24 Rx# [id number] Last Released: 02/19/24 Qty/Days Supply: Rx Expiration Date: 03/19/24 Refills Remainin Indication: FOR PAIN OUTPT ROPINIROLE HCL 0.25MG TAB (Status = Active) TAKE ONE TABLET BY MOUTH DAILY Rx# [id number] Last Released: 12/11/23 Qty/Days Supply: Rx Expiration Date: 12/08/24 Refills Remainin SUPPLIES Suicide Screen: C-SSRS Screening Molt-Suicide Severity Rating Scale (C-SSRS Screener) 1. Over the past month, have you wished you were or wished you could go to sleep and not wake up? No 2. Over the past month, have you had any actual thoughts of killing yourself? No 3. Over the past month, have you been thinking about how you might do this? Response not required due to responses to other questions. 4. Over the past month, have you had these thoughts and had some intention of acting on them? Response not required due to responses to other questions. 5. Over the past month, have you started to work out or worked out the details of how to kill yourself? Response not required due to responses to other questions. 6. If yes, at any time in the past month did you intend to carry out this plan? Response not required due to responses to other questions. 7. In your lifetime, have you ever done anything, started to do anything, or prepared to do anything to end your life (for example, collected pills, obtained a gun, gave away valuables, went to the roof but didn't jump)? No 8. If YES, was this within the past 3 months? Response not required due to responses to other questions. /robe/ RINA CESAR DPM PRECISION OPT[employer] TECHNICIAN Signed: 03/11/2024 08:57 RNIA CESAR
--- OUTSIDE RECORDS SUMMARY | 2024-04-28 11:06 | XMS_ITS | Encounter Summary ---
Author Name Department [place] Organization [place] Address [address] [place] [address] Care Team Providers Care Twenty One Dealer Name Role Phone NEHEMIAH CUEVAS Primary Care [...] Name Patient's Relationship to Policy [facility] Aug 11, 2014 [id number] [phone] DHAVAL SHAQ Wagner PATIENT ANA [facility] MEDICARE SUPPLEMEN ARTEMIO [facility] Aug 11, 2014 [id number] [phone] DHAVAL SHAQ Wagner [facility] SUPPLEMEN ARTEMIO MEDEX 2 Aug 11, 2014 [id number] DHAVAL SHAQ Wagner [facility] SUPPLEMEN ARTEMIO MEDEX 2 Aug 11, 2014 [id number] ARCHAMBRENATA SHAQ Wagner PAT[place] SUPPLEMEN ARTEMIO MEDEX 2 Aug 11, 2014 [id number] ARCHAMBEA SHAQ Wagner PATIENT [place] MEDICARE SUPPLEMEN [employer] [place] Aug 11, 2014 [id number] SHAQ WONG PATIENT USMANA [facility] (WNR) MEDICARE ADVANTAGE HUMAN A INSUR [place] [facility] Jan 11, 2022 [id number] [phone] ARCHOCTAVIOEA SHAQ Wagner PATIENT USMANA [facility] (WNR) MEDICARE ADVANTAGE [facility] (W[facility]) Jan 11, 2022 [id number] [phone] ARCHAMBEA SHAQ Wagner PATIENT MEDICARE (WNR) MEDICARE () PART A Dec 11, 2014 PART A [id number] ARCHAMBEA SHAQ Wagner PATIENT MEDICARE (WNR) MEDICARE () PART A Aug 11, 2014 PART A [id number] [phone] ARCHAMBEA SHAQ Wagner PATIENT MEDICARE (WNR) MEDICARE () PART B Aug 11, 2014 PART B [id number] [phone] ARCHAMBEA SHAQ Wagner PATIENT MEDICARE (WNR) MEDICARE () PART B Aug 11, 2014 PART B [id number] ARCHAMBEA SHAQ Wagner PATIENT MEDICARE (WNR) MEDICARE () PART A Aug 11, 2014 PART A [id number] ARCHAMBEA SHAQ Wagner PATIENT MEDICARE (WNR) MEDICARE () PART B Aug 11, 2014 PART B [id number] ARCHAMBEA SHAQ Wagner PATIENT MEDICARE (WNR) MEDICARE () PART A Aug 11, 2014 PART A [id number] [phone] ARCHAMBEA SHAQ Wagner PATIENT MEDICARE (WNR) MEDICARE (M) PART B Aug 11, 2014 PART B [id number] ARCHAMBEA SHAQ Wagner [facility] (WNR) MEDICARE ADVANTAGE [facility] ([facility]) May 13, 2020 [id number] [phone] ARCHAMBEA SHAQ Wagner PATIENT Selected Encounter This section includes the information on record at [place] for the Encounter. Date/Time Encounter Type Encounter Description Reason Pro vider Source Mar 20, 2024 01:38 PM Outpatient Encounter PODIATRY IHE Encounter Template Text not used by [place] Plan of Treatment: Future Appointments (+ 6 months) and Future Tests (+/- 45 days) The Plan of Treatment section includes future care activities for the patient from all [place] treatmentfacilities. This section includes future appointments and future orders which are active, pending or scheduled. Future Appointments This section includes appointments that were scheduled to occur 6 months from the date of the Encounter, up to a maximum of 20 appointments. The data comes from all [place] treatment [facility]. Appointment Date/Time Appointment Type Appointme nt Facility Name Apr 07, 2024 10:00 AM AMBULATORY - [facility]ICINE [facility] Apr 20, 2024 08:30 AM AMBULATORY - MEDICINE [facility] Apr 28, 2024 11:00 AM AMBULAT[facility]IC[facility] Jun 22, 2024 08:30 AM [facility] Jul 10, 2024 09:00 AM [facility] Jul 22, 2024 08:00 AM AMBULATORY [...] of theEncounter. The data comes from all [facility]. Test Date/Time Test Type Test Details Facility Name Mar 06, 2024 04:47 PM Consult Order COMMUNITY CARE-DENTAL GENERAL Cons Archives Specialist's Choice [facility] Apr 20, 2024 01:10 PM Consult Order COMMUNITY CARE-UROLOGY Cons Archives [facility] Social History: Smoking Status (Most current) and Tobacco Use (All prior to encounter date) This section includes the most current, and the historical, smoking and tobacco- related health factors from the [place] facility where the Encounter took place. Current Smoking Status This section includes the most current smoking, or tobacco-related health factor, from the [place] facility where the Encounter took place. Date/Time Current Smoking Status Comment Facil ity Jul 04, 2023 09:00 AM VA-TOBACCO QUIT 15 YRS OR MORE [facility] Tobacco Use History This section includes a history of the smoking, or tobacco-related health factors, that were collected on or before the date of the Encounter. The data comes from the [place] facility where the Encounter took place. Date/Time Smoking Status/Tobacco Use Comment F acility Jul 04, 2023 09:00 AM VA-TOBACCO QUIT 15 YRS OR MORE [place] [facility] [facility] Mar 14, 2022 03:02 PM VA-TOBACCO FORMER USER [place] [facility] [facility] Mar 14, 2022 03:02 PM VA-TOBACCO QUIT 15 YRS OR MORE [place] [facility] [place] [facility] Feb 08, 2021 09:00 AM VA-TOBACCO FORMER USER [place] [facility] [place] [facility] Feb 08, 2021 09:00 AM VA-TOBACCO QUIT 15 [facility]RS OR [facility] [place] [facility] October 09, 2019 01:12 PM VA-TOBACCO FORMER USER [place] [facility] [facility] October 09, 2019 01:12 PM VA-TOBACCO QUIT 5 TO < 15 YRS [facility] Advance Directives: All historical and current Section Date Range: From patient's date of to the date document was created. This section includes ALL of a patient's completed or amended [place] Advance and Rescinded Directives. The entries below indicate that a directive exists for the patient, but an actual copy is not included with this document. The data comes from all [place] facilities. Date Advance Directives Provider Source Feb 21, 2021 ADVANCE DIRECTIVE BEL ESCALANTE [facility] Encounter Notes: All associated encounter notes This section contains the clinical notes associated to the Encounter. Date/Time Encounter Note(s) Provider Source Mar 20, 2024 01:38 PM TELEPHONE ENCOUNTE R NOTE: LOCAL TITLE: TELEPHONE NOTE/SPECIALTY CLINIC STANDARD TITLE: TELEPHONE ENCOUNTER NOTE DATE OF NOTE: MAR 20, 2024@13:38 ENTRY DATE: MAR 20, 2024@13:38:16 AUTHOR: MYA LARES COSIGNER: URGENCY: STATUS: COMPLETED RTC orders: Unable to contact patient: Attempts to contact: 1st attempt: Left voicemail 2nd attempt: Letter mailedDisposition onNov 22,2024 3rd attempt: 4th attempt: /es/ MYA LARES AMSA Signed: 03/20/2024 13:38 LUDAMYA MAURO Yony JESUS Mar 20, 2024 01:38 PM PRIMARY CARE SHIV RS: STEPHANIE TITLE: PATIENT LETTER - SPECIALTY [facility] STANDARD TITLE: PRIMARY CARE LETTERS DATE OF NOTE: MAR 20, 2024@13:38 ENTRY DATE: MAR 20, 2024@13:38:38 AUTHOR: MYA LARES COSIGNER: URGENCY: STATUS: COMPLETED DEPARTMENT OF [facility] Specialty Outpatient Clinic Telephone number: [phone] SHAQ PUENTESBernard [address], [place], [address] MAR 20, 2024 Dear Jasper, We would like to assist you in scheduling a Podiatry appointment at the [place]. We have been unable to reach you by phone. To schedule this appointment please call us at ext. [phone]. Our booking appointment hours are Saturday through Saturday from 8:00 am to 4:00 pm. Please leave a message if you receive voicemail and let us know a good time and telephone number where we can reach you. If we don't hear back from you within 14 days from the date of this letter we will discontinue the request. If you have already scheduled this appointment, please disregard this letter. Your health is important to us. Sincerely, [facility] [address] [facility] [address] [place] [address] [place] [address] [facility] [address] [place] [address] [place] [address] ext. [phone] [facility] [address] [facility] [address] [place] [address] [place] [address] ext. [phone] [facility] [address] [place] [address] ext. [phone] Special[facility] Outpatient [facility] [address] [place] [phone] MYA LARES [facility]
--- OUTSIDE RECORDS SUMMARY | 2024-04-28 11:06 | XMS_ITS | Encounter Summary ---
Author Name [place] Address [address] [place] [address] Care Team Providers Care Regulatory Coordinator Name Role Phone NEHEMIAH CUEVAS Primary [...] ANA [facility] Aug 11, 2014 [id number] DHAVAL SHAQ Wagner PATIENT ANA BCBS [facility] MEDICARE SUPPLEMEN ARTEMIO [facility] Aug 11, 2014 [id number] DHAVAL SHAQ Wagner [facility]IENT [facility] MEDIC[facility] SUPPLEMEN ARTEMIO MEDEX 2 Aug 11, 2014 [id number] DHAVAL SAHQ Wagner PATIENT BCBS [place] MEDICARE SUPPLEMEN ARTEMIO MEDEX 2 Aug 11, 2014 [id number] [phone] DHAVAL SHAQ Wagner PATIENT [place] MEDICARE SUPPLEMEN ARTEMIO MEDEX 2 Aug 11, 2014 [id number] ARCHAMBEA SHAQ Wagner PATIENT [facility]EC[facility] MEDICARE SUPPLEMEN [facility] Aug 11, 2014 [id number] [phone] ARCHOCTAVIOEA SHAQ Wagner PATIENT HUMANA [facility] (WNR) MEDICARE ADVANTAGE HUMAN A INSUR [place] [facility] Jan 11, 2022 [id number] [phone] ARCHAMBEA SHAQ Wagner PATIENT USMANA MCR (WNR) MEDICARE ADVANTAGE [facility] (WNR) Jan 11, 2022 [id number] [phone] ARCHAMBEA U,SHAQ PATIENT MEDICARE (WNR) MEDICARE (M) PART A Dec 11, 2014 PART A [id number] [phone] ARCHAMBEA U,SHAQ PATIENT MEDICARE (WNR) MEDICARE (M) PART A Aug 11, 2014 PART A [id number] ARCHAMBEA U,SHAQ PATIENT MEDICARE (WNR) MEDICARE () PART B Aug 11, 2014 PART B [id number] ARCHAMBEA U,SHAQ PATIENT MEDICARE (WNR) MEDICARE () PART A Aug 11, 2014 PART A [id number] ARCHAMBEA U,SHAQ PATIENT MEDICARE (WNR) MEDICARE (M) PART B Aug 11, 2014 PART B [id number] ARCHAMBEA U,SHAQ PATIENT MEDICARE (WNR) MEDICARE () PART B Aug 11, 2014 PART B [id number] ARCHAMBEA U,SHAQ PATIENT MEDICARE (WNR) MEDICARE (M) PART A Aug 11, 2014 PART A [id number] ARCHAMBEA U,SHAQ PATIENT MEDICARE (WNR) MEDICARE (M) PART B Aug 11, 2014 PART B [id number] ARCHAMBEA U,SHAQ PATIENT [facility] (WNR) MEDICARE ADVANTAGE [facility] (WNR) May 13, 2020 [id number] ARCHAMBEA U,SHAQ PATIENT Selected Encounter This section includes the information on record at [place] for the Encounter. Date/Time Encounter Type Encounter Description Reason Pro vider Source Mar 16, 2024 01:25 PM Outpatient Encounter ADMIN PAT ACTIVTIES (KISHAN) IHE Encounter Template Text not used by [place] Plan of Treatment: Future Appointments (+ 6 [...] The data comes from all [place] treatment [facility]. Appointment Date/Time Appointment Type Appointme nt Facility Name Apr 07, 2024 10:00 AM AM[place]ULATORY - [place] [facility] [place] [facility] Apr 20, 2024 08:30 AM [facility] Apr 28, 2024 11:00 AM AM[facility]ULATORY - MEDICINE [place] [facility] Jun 22, 2024 08:30 AM [facility] [place] Jul 10, 2024 09:00 AM AMBULATORY - MEDICINE [place] Jul 22, 2024 08:00 AM AMBULATORY - MEDICINE [place] Active, Pending, and Scheduled Orders This section includes a listing of several types of active, pending, and scheduled orders, including clinic medications orders, diagnostic test orders, procedure orders and consult orders; where the start date of the order is 45 days before the date of the Encounter or 45 days after the date of theEncounter. The data comes from all [facility]. Test Date/Time Test Type Test Details Facility Name Mar 06, 2024 04:47 PM Consult Order COMMUNITY CARE-DENTAL GENERAL Cons Strategic Manager's Choice [facility] Apr 20, 2024 01:10 PM Consult Order COMMUNITY CARE-UROLOGY Cons Strategic Manager's [facility] Social History: Smoking Status (Most current) and [...] 04, 2023 09:00 AM [place]-TOBACCO FORMER USER [facility] Tobacco Use History This section includes a history of the smoking, or tobacco-related health factors, that were collected on or before the date of the Encounter. The data comes from the [place] facility where the Encounter took place. Date/Time Smoking Status/Tobacco Use Comment Joselyn blas Jul 04, 2023 09:00 AM [place]-TOBACCO QUIT 15 YRS OR MORE [place] [facility] [place] [facility] Mar 14, 2022 03:02 PM VA-TOBACCO FORMER USER [place] [facility] [place] [facility] Mar 14, 2022 03:02 PM VA-TOBACCO QUIT 15 YRS OR MORE [place] [facility] [place] [facility] Feb 08, 2021 09:00 AM VA-TOBACCO FORMER USER [place] [facility] [place] [facility] Feb 08, 2021 09:00 AM VA-TOBACCO QUIT 15 YRS OR MORE [place] [facility] [place] [facility] October 09, 2019 01:12 PM VA-TOBACCO FORMER USER [place] [facility] [place] [facility] October 09, 2019 01:12 PM VA-TOBACCO QUIT 5 TO < 15 YRS [facility] Advance Directives: All historical and [...] Feb 21, 2021 ADVANCE DIRECTIVE BEL ESCALANTE [facility] Encounter Notes: All associated encounter notes This section contains the clinical notes associated to the Encounter. Date/Time Encounter Note(s) Provider Source Mar 16, 2024 01:25 PM ADMINISTRATIVE NOTE: LOCAL TITLE: CCC: SCHEDULING ADMINISTRATION STANDARD TITLE: ADMINISTRATIVE NOTE DATE OF NOTE: MAR 16, 2024@13:25:27 ENTRY DATE: MAR 16, 2024@13:25:28 AUTHOR: ROBLES SALVADOR COSIGNER: URGENCY: STATUS: COMPLETED Patient Demographics Patient Name: SHAQ GREGORIO Patient Primary Phone: [phone] Patient Primary Address: [address] [place] [id number] Patient : 1950 Patient Age: 73 Caller/Recipient Relation to Patient: Self Administrative Administrative Note Reason: Medication Renewal [place] Medications Refill/Renewal Request: is requesting renewals on Rx #[id number] - OXYCODONE HCL 5MG/APAP 325MG TAB to be sent by mail. Please contact to assist IMPORTANT: This note was created by [facility] Clinical Contact Center staff. Please do not alert the staff member by adding them as a signer for future communications. Alerts are not monitored by this user. /robe/ ROBLES SALVADOR ADVANCED DEPARTMENT DIRECTOR Signed: 03/16/2024 13:25 Receipt Acknowledged By: 03/18/2024 16:30 /robe/ NATA MULLIGAN LPN LPN 03/18/2024 16:30 /es/ CECILIO AL RN REGISTERED NURSE ROBLES SALVADOR AR [facility]
--- OUTSIDE RECORDS SUMMARY | 2024-04-28 11:06 | XMS_ITS | Encounter Summary ---
Author Name [facility] [place] Address [address] [place] [address] Care Team Providers Care College [employer] Faculty Member Name Role Phone NEHEMIAH CUEVAS Primary Care [...] Name Patient's Relationship to Policy Orellana ANA [facility] Aug 11, 2014 [id number] DHAVAL SHAQ Wagner PATIENT ANA BCBS [facility] MEDICARE SUPPLEMEN ARTEMIO [facility] Aug 11, 2014 [id number] [phone] DHAVAL SHAQ Wagner [facility] SUPPLEMEN ARTEMIO MEDEX 2 Aug 11, 2014 [id number] DHAVAL SHAQ Wagner PATIENT BCBS [place] MEDICARE SUPPLEMEN ARTEMIO MEDEX 2 Aug 11, 2014 [id number] [phone] DHAVAL SHAQ Wagner PATIENT [place] MED[place] SUPPLEMEN ARTEMIO MEDEX 2 Aug 11, 2014 [id number] [phone] ARCHAMBEA SHAQ Wagner PATIENT [facility] BLUECARD MEDICARE SUPPLEMEN [facility] Aug 11, 2014 [id number] [phone] ARCHOCTAVIOEA SHAQ Wagner PATIENT HUMANA [facility] (WNR) MEDICARE ADVANTAGE HUMAN A INSUR [place] [facility] Jan 11, 2022 [id number] ARCHAMBEA SHAQ Wagner PATIENT USMANA MCR (WNR) MEDICARE ADVANTAGE [facility] (WNR) Jan 11, 2022 [id number] [phone] ARCHAMBEA U,SHAQ PATIENT MEDICARE (WNR) MEDICARE () PART A Dec 11, 2014 PART A [id number] ARCHAMBEA U,SHAQ PATIENT MEDICARE (WNR) MEDICARE () PART B Aug 11, 2014 PART B [id number] ARCHAMBEA U,SHAQ PATIENT MEDICARE (WNR) MEDICARE () PART A Aug 11, 2014 PART A [id number] ARCHAMBEA U,SHAQ PATIENT MEDICARE (WNR) MEDICARE () PART B Aug 11, 2014 PART B [id number] ARCHAMBEA U,SHAQ PATIENT MEDICARE (WNR) MEDICARE () PART A Aug 11, 2014 PART A [id number] ARCHAMBEA U,SHAQ PATIENT MEDICARE (WNR) MEDICARE () PART B Aug 11, 2014 PART B [id number] [phone] ARCHAMBEA U,SHAQ PATIENT MEDICARE (WNR) MEDICARE () PART A Aug 11, 2014 PART A [id number] ARCHAMBEA U,SHAQ PATIENT MEDICARE (WNR) MEDICARE () PART B Aug 11, 2014 PART B [id number] [phone] ARCHAMBEA U,SHAQ PATIENT [facility] (WNR) MEDICARE ADVANTAGE [facility] (WNR) May 13, 2020 [id number] ARCHAMBEA U,HSAQ PATIENT Selected Encounter This section includes the information on record at [place] for the Encounter. Date/Time Encounter Type Encounter Description Reason Pro vider Source Mar 20, 2024 04:45 PM Outpatient Encounter ADMIN PAT ACTIVTIES (ROSSANACT) IHE Encounter Template Text not used by [...] The data comes from all [place] treatment [facility]. Appointment Date/Time Appointment Type Appointme nt Facility Name Apr 07, 2024 10:00 AM AM[facility] [place] [facility] Apr 20, 2024 08:30 AM [facility] Apr 28, 2024 11:00 AM [facility] [place] [facility] Jun 22, 2024 08:30 AM [facility] Jul 10, 2024 09:00 AM AMBULATORY [...] of theEncounter. The data comes from all [facility]. Test Date/Time Test Type Test Details Facility Name Mar 06, 2024 04:47 PM Consult Order COMMUNITY CARE-DENTAL GENERAL Cons C D Still Operator's Choice [facility] Apr 20, 2024 01:10 PM Consult Order COMMUNITY CARE-UROLOGY Cons C D Still Operator's [facility] Social History: Smoking Status (Most current) and [...] Facil ity Jul 04, 2023 09:00 AM [place]-TOBACCO QUIT 15 YRS OR MORE [facility] Tobacco Use History This section includes a history of the smoking, or tobacco-related health factors, that were collected on or before the date of the Encounter. The data comes from the [place] facility where the Encounter took place. Date/Time Smoking Status/Tobacco Use Comment Joselyn blas Jul 04, 2023 09:00 AM [place]-TOBACCO QUIT 15 YRS OR MORE [place] [facility] [place] [facility] Mar 14, 2022 03:02 PM VA-TOBACCO FORMER USER [place] [facility] [place] [facility] Mar 14, 2022 03:02 PM VA-TOBACCO QUIT 15 YRS OR MORE [place] [facility] [place] [facility] Feb 08, 2021 09:00 AM VA-TOBACCO FORMER USER [place] [facility] [place] [facility] Feb 08, 2021 09:00 AM VA-TOBACCO QUIT 15 YRS OR MORE [place] [facility] [place] [facility] October 09, 2019 01:12 PM VA-TOBACCO FORMER USER [place] [facility] October 09, 2019 01:12 PM VA-TOBACCO QUIT 5 TO < 15 YRS [facility] Advance Directives: All historical and current [...] Feb 21, 2021 ADVANCE DIRECTIVE BEL ESCALANTE [facility] Encounter Notes: All associated encounter notes This section contains the clinical notes associated to the Encounter. Date/Time Encounter Note(s) Provider Source Mar 20, 2024 04:45 PM PHARMACY NOTE: LOCAL TITLE: V1 PHARMACY CUSTOMER CARE MEDICATION RENEWAL STANDARD TITLE: PHARMACY NOTE DATE OF NOTE: MAR 20, 2024@16:45 ENTRY DATE: MAR 20, 2024@16:45:10 AUTHOR: RIA WEBBER COSIGNER: URGENCY: STATUS: COMPLETED Date: Mar Division: [place] Pt referred by Pharmacy Call Center for medication renewal: Controlled substance Medications requested: [id number] OXYCODONE HCL 5MG/APAP 325MG TAB Defer to primary care provider To be mailed . Please review and renew if appropriate. *This note was generated by [facility]/[place] Pharmacy Customer Care. If you have any questions or need assistance, do not contact this author. Please refer all questions to your local, on-site pharmacy departments. /robe/ RIA WEBBER Hydrotechnical Specialist, [place]/Pharmacy Customer Care Signed: 03/20/2024 16:45 Receipt Acknowledged By: 03/23/2024 23:55 /es/ NEHEMIAH CUEVAS MD PHYSICIAN 03/26/2024 11:39 /es/ CECILIO AL RN REGISTERED NURSE RIA WEBBER [facility]
--- OUTSIDE RECORDS SUMMARY | 2024-04-28 11:06 | XMS_ITS | Encounter Summary ---
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PPLEMEN ARTEMIO MEDEX 2 Aug 11, 2014 [id number] ARCHSTEPHANIA SHAQ Wagner PATIENT [place] SUPPLEMEN ARTEMIO MEDEX 2 Aug 11, 2014 [id number] [phone] ARCHOCTAVIOEA SHAQ Wagner [facility] BLUECARD MEDICARE SUPPLEMEN [facility] Aug 11, 2014 [id number] [phone] SHAQ WONG PATIENT USMANA [facility] (WNR) MEDICARE ADVANTAGE HUMAN A INSUR [place] [facility] Jan 11, 2022 [id number] [phone] ARCHOCTAVIOEA SHAQ Wagner PATIENT USMANA [facility] (WNR) MEDICARE ADVANTAGE [facility] (WNR) Jan 11, 2022 [id number] [phone] ARCHAMBEA SHAQ Wagner PATIENT MEDICARE (WNR) MEDICARE (M) PART A Dec 11, 2014 PART A [id number] ARCHAMBEA SHAQ Wagner PATIENT MEDICARE (WNR) MEDICARE () PART A Aug 11, 2014 PART A [id number] ARCHAMBEA SHAQ Wagner PATIENT MEDICARE (WNR) MEDICARE () PART B Aug 11, 2014 PART B [id number] ARCHAMBEA SHAQ Wagner PATIENT MEDICARE (WNR) MEDICARE () PART B Aug 11, 2014 PART B [id number] ARCHAMBEA SHAQ Wagner PATIENT MEDICARE (WNR) MEDICARE () PART A Aug 11, 2014 PART A [id number] ARCHAMBEA SHAQ Wagner PATIENT MEDICARE (WNR) MEDICARE () PART B Aug 11, 2014 PART B [id number] ARCHAMBEA SHAQ Wagner PATIENT MEDICARE (WNR) MEDICARE () PART A Aug 11, 2014 PART A [id number] ARCHAMBEA SHAQ Wagner PATIENT MEDICARE (WNR) MEDICARE (M) PART B Aug 11, 2014 PART B [id number] [phone] ARCHAMBEA SHAQ Wagner [facility] (WNR) MEDICARE ADVANTAGE [facility] (WNR) May 13, 2020 [id number] ARCHAMBEA SHAQ Wagner PATIENT Selected Encounter This section includes the information on record at NE for the Encounter. Date/Time Encounter Type Encounter Description Reason Pro vider Source Jan 06, 2024 09:00 AM Outpatient Encounter PRIMARY CARE/MEDICINE IHE Encounter Template Text not used by NE Plan of Treatment: Future Appointments (+ 6 months) and Future Tests (+/- 45 days) The Plan of Treatment section includes future care activities for the patient [facility] This section includes future appointments and future orders which are active, pending or scheduled. Future Appointments This section includes appointments that were scheduled to occur 6 months from the date of the Encounter, up to a maximum of 20 appointments. The data comes from all [facility]. Appointment Date/Time Appointment Type Appointme nt Facility Name Jan 28, 2024 08:00 AM AMBULATORY - MEDICINE [place] [facility] [place] [facility] Jan 30, 2024 07:30 AM AMBULATORY - MEDICINE [place] [facility] [place] [facility] Mar 06, 2024 08:45 AM AMBULATORY - MEDICINE [place] [facility] [place] [facility] Mar 11, 2024 08:30 AM AMBULATORY - MEDICINE [facility] Mar 16, 2024 08:30 AM AMBULATORY - MEDICINE [place] [place] [facility] Apr 07, 2024 10:00 AM AMBULATORY - MEDICINE [place] [facility] [place] [facility] Apr 20, 2024 08:30 AM AMBULATORY - MEDICINE [facility] Apr 28, 2024 11:00 AM AMBULATORY - MEDICINE [place] [facility] [place] [facility] Jun 22, 2024 08:30 AM AMBULATORY - NONE [place] [facility] [place] [facility] Active, Pending, and Scheduled Orders This section includes a listing of several types of active, pending, and scheduled orders, including clinic medications orders, diagnostic test orders, procedure orders and consult orders; where the start date of the order is 45 days before the date of the Encounter or 45 days after the date of theEncounter. The data comes from all [facility]. Test Date/Time Test Type Test Details Facility Name Jan 29, 2024 06:05 PM Consult Order COMMUNITY CARE-CARDIOLOGY Cons Emergency Preparedness Manager[facility] Choice [facility] Lab Results: +/- 30 days of the encounter This section includes the Chemistry and Hematology Lab Results on record with NE for the patient. Radiology Reports and Pathology Reports are provided separately, in subsequent sections. Lab Results This section contains the Chemistry/Hematology Results that were resulted 30 days before or 30 daysafter the date of the Encounter. Date/Time Source Result Type Result - Unit Interpretation Reference Range Comment Jan 24, 2024 08:23 AM [facility] METHADONE SCREEN Specimen Type: URINE Comment: THIAGO test are qualitative, any L or H flags only indicate a NE alert was sent. Ordering Provider: NEHEMIAH DAVIES Report Released Date/Time: Jan 22, 2024 11:28 AM Reporting Lab: [facility] [address] [facility] [address] Performing Lab: [facility] [address] [facility] [address] METHADONE SCREEN None detected(Nega tive) L Negative Jan 24, 2024 08:23 AM [facility] ALCOHOL, ETHYL URINE PANEL Specimen Type: URINE [...] Jan 22, 2024 11:28 AM Reporting Lab: [facility] [address] [facility] [address] Performing Lab: [address] [address] ALCOHOL, ETHYL URINE NONE-DETECTED mg/dL NONE-DETEC SIRI, cutoff = 10 mg/dL PH, THIAGO 5.8 [pH] 4-10 CREATININE, THIAGO 29.33 mg/dL >20 SP.GRAVITY, THIAGO 1.009 1.00 3-1.02 0 Jan 24, 2024 08:23 AM [facility] AMPHETAMINES SCREEN PANEL Specimen Type: URINE Comment: [...] Jan 22, 2024 11:28 AM Reporting Lab: [address] [address] Performing Lab: [address] [address] AMPHETAMINES SCREEN NONE-DETECTED None-Detec siri, Cutoff = 1000 ng/mL PH, THIAGO 5.8 [pH] 4-10 CREATININE, THIAGO 29.33 mg/dL >20 SP.GRAVITY, THIAGO 1.009 1.00 3-1.02 0 Jan 24, 2024 08:23 AM [facility] BENZODIAZEPINES SCREEN PANEL Specimen Type: URINE Comment: [...] Jan 22, 2024 11:28 AM Reporting Lab: [address] [address] Performing Lab: [address] [address] BENZODIAZEPINES SCREEN NONE-DETECTED None-Detec siri, Cutoff = 200 ng/mL PH, THIAGO 5.8 [pH] 4-10 CREATININE, THIAGO 29.33 mg/dL >20 SP.GRAVITY, THIAGO 1.009 1.00 3-1.02 0 Jan 24, 2024 08:23 AM [facility] FENTANYL SCREEN PANEL Specimen Type: URINE Comment: [...] Jan 22, 2024 11:28 AM Reporting Lab: [address] [address] Performing Lab: [address] [address] FENTANYL SCREEN NONE-DETECTE D ng/mL Negative: Cutoff = 1.00 ng/mL PH, THIAGO 5.7 [pH] 4-10 CREATININE, THIAGO 29.05 mg/dL >20 SP.GRAVITY, THIAGO 1.010 1.00 3-1.02 0 Jan 24, 2024 08:23 AM [facility] BUPRENORPHINE SCREEN PANEL Specimen Type: URINE Comment: [...] Jan 22, 2024 11:28 AM Reporting Lab: [address] [address] Performing Lab: [address] [address] BUPRENORPHINE (URINE) NONE-DETECTED None Detected, Cutoff = 10.0 ng/mL PH, THIAGO 5.8 [pH] 4-10 CREATININE, THIAGO 29.33 mg/dL >20 SP.GRAVITY, THIAGO 1.009 1.00 3-1.02 0 Jan 24, 2024 08:23 AM [facility] CANNABINOIDS SCREEN PANEL Specimen Type: URINE Comment: [...] Jan 22, 2024 11:28 AM Reporting Lab: [address] [address] Performing Lab: [address] [address] CANNABINOIDS SCREEN POSITIVE HH None-Detec siri,Cutoff = 50 ng/mL PH, THIAGO 5.8 [pH] 4-10 CREATININE, THIAGO 29.33 mg/dL >20 SP.GRAVITY, THIAGO 1.009 1.00 3-1.02 0 Jan 24, 2024 08:23 AM [facility] COCAINE SCREEN PANEL Specimen Type: URINE Comment: [...] Jan 22, 2024 11:28 AM Reporting Lab: [address] [address] Performing Lab: [address] [address] COCAINE SCREEN NONE-DETECTED N one-Detec siri,Cutoff = 300 ng/mL PH, THIAGO 5.8 [pH] 4-10 CREATININE, THIAGO 29.33 mg/dL >20 SP.GRAVITY, THIAGO 1.009 1.00 3-1.02 0 Jan 24, 2024 08:23 AM [facility] OXYCODONE SCREEN PANEL Specimen Type: URINE Comment: [...] Jan 22, 2024 11:28 AM Reporting Lab: [address] [address] Performing Lab: [address] [address] OXYCODONE SCREEN POSITIVE HH Non e-Detec siri, Cutoff = 100 ng/mL PH, THIAGO 5.8 [pH] 4-10 CREATININE, THIAGO 29.33 mg/dL >20 SP.GRAVITY, THIAGO 1.009 1.00 3-1.02 0 Jan 24, 2024 08:23 AM [facility] OPIATES SCREEN PANEL Specimen Type: URINE Comment: [...] Jan 22, 2024 11:28 AM Reporting Lab: [address] [address] Performing Lab: [address] [address] OPIATES SCREEN NONE-DETECTED N one-Detec siri, Cutoff = 300 ng/mL PH, THIAGO 5.8 [pH] 4-10 CREATININE, THIAGO 29.33 mg/dL >20 SP.GRAVITY, THIAGO 1.009 1.00 3-1.02 0 Dec 30, 2023 08:44 AM [facility] MAGNESIUM Specimen Type: SERUM No comment entered. Ordering Provider: NEHEMIAH DAVIES Report Released Date/Time: Jul 04, 2023 09:50 AM Reporting Lab: [facility] [place] [address] [address] Performing Lab: [facility] [place] [address] [address] MAGNESIUM 1.9 mg/dL 1.6-2.6 Dec 30, 2023 08:44 AM [facility] PSA Specimen Type: SERUM No comment entered. Ordering Provider: NEHEMIAH DAVIES Report Released Date/Time: Jul 04, 2023 09:50 AM Reporting Lab: [facility] [place] [address] [address] Performing Lab: [facility] [address] [address] PSA 0.26 ng/mL 0.00-4.00 Dec 30, 2023 08:44 AM [facility] TSH Specimen Type: SERUM No comment entered. Ordering Provider: NEHEMIAH DAVIES Report Released Date/Time: Jul 04, 2023 09:50 AM Reporting Lab: [facility] [address] [address] Performing Lab: [facility] [place] [address] [address] TSH 0.57 u[IU]/mL 0.35-5.00 Dec 30, 2023 08:44 AM [facility] HEMOGLOBIN A1C PANEL Specimen Type: BLOOD Comment: [...] Jul 04, 2023 09:50 AM Reporting Lab[facility] [address] [address] Performing Lab: [facility] [address] [facility] [address] HEMOGLOBIN A1C 4.9 4.0-5.6 Dec 30, 2023 08:44 AM [facility] LIPID PANEL FASTING Specimen Type: SERUM No comment entered. Ordering Provider: NEHEMIAH DAVIES Report Released Date/Time: Jul 04, 2023 09:50 AM Reporting Lab: [address] [address] Performing Lab: [address] [address] CHOLESTEROL 159 mg/dL TRIGLYCERIDE 76 mg/dL 0-150 LDL calculated 66 mg/dL 0-129 CHOL/HDL 2.0 HDL CHOLESTEROL 78 mg/dL H 40-60 Dec 30, 2023 08:44 AM [facility] BASIC METABOLIC PANEL (fasting) Specime n Type: SERUM No comment entered. Ordering Provider: NEHEMIAH DAVIES Report Released Date/Time: Jul 04, 2023 09:50 AM Reporting Lab: [address] [address] Performing Lab: [address] [address] UREA NITROGEN 13 mg/dL 7-25 GLUCOSE 100 mg/dL 65-100 SODIUM 136 mmol/L 135-145 POTASSIUM 4.5 mmol/L 3.5-5.0 CHLORIDE 102 mmol/L 100-110 CO2 26 meq/L 20-30 CREATININE, Serum 0.96 mg/dL 0.50-1.40 eGFR(CKD-EPI 2020) 83 mL/min >60 Dec 30, 2023 08:44 AM [facility] LIVER FUNCTION Specimen Type: SERUM No comment entered. Ordering Provider: NEHEMIAH DAVIES Report Released Date/Time: Jul 04, 2023 09:50 AM Reporting Lab: [address] [address] Performing Lab: [address] [address] PROTEIN,TOTAL 6.4 g/dL 6.0-8.3 ALBUMIN 4.0 g/dL 3.5-5.0 ALKALINE PHOSPHATASE 64 U/L 40-150 AST 17 U/L 5-34 ALT 19 U/L BILIRUBIN, TOTAL 0.5 mg/dL 0.2-1.2 Dec 30, 2023 08:44 AM [facility] CBC AND DIFF (AUTO) Specimen Type: BLOOD No comment entered. Ordering Provider: NEHEMIAH DAVIES Report Released Date/Time: Jul 04, 2023 09:50 AM Reporting Lab: [facility] [address] [facility] [address] Performing Lab: [facility] [address] [facility] [address] WBC 6.84 10*3/uL 4.50-11.00 RBC 4.52 10*6/uL [...] and tobacco- related health factors from the NE facility where the Encounter took place. Current Smoking Status This section includes the most current smoking, or tobacco-related health factor, from the NE facility where the Encounter took place. Date/Time Current Smoking Status Comment Facil ity Jul 04, 2023 09:00 AM VA-TOBACCO QUIT 15 YRS OR MORE [facility] Tobacco Use History This section includes a history of the smoking, or tobacco-related health factors, that were collected on or before the date of the Encounter. The data comes from the NE facility where the Encounter took place. Date/Time Smoking Status/Tobacco Use Comment F acility Jul 04, 2023 09:00 AM VA-TOBACCO QUIT 15 YRS OR MORE [place] [facility] [place] [facility] Mar 14, 2022 03:02 PM VA-TOBACCO FORMER USER [place] [facility] [place] [facility] Mar 14, 2022 03:02 PM VA-TOBACCO QUIT 15 YRS OR MORE [place] [facility] [place] [facility] Feb 08, 2021 09:00 AM VA-TOBACCO FORMER USER [place] [facility] [place] [facility] Feb 08, 2021 09:00 AM VA-TOBACCO QUIT 15 YRS OR MORE [place] [facility] [place] [facility] October 09, 2019 01:12 PM VA-TOBACCO FORMER USER [place] [facility] [place] [facility] October 09, 2019 01:12 PM VA-TOBACCO QUIT 5 TO < 15 YRS [place] [facility] [place] [facility] Advance Directives: All historical and current Section Date Range: From patient's date of to the date document was created. This section includes ALL of a patient's completed or amended NE Advance and Rescinded Directives. The entries below indicate that a directive exists for the patient, but an actual copy is not included with this document. The data comes from all NE facilities. Date Advance Directives Provider Source Feb 21, 2021 ADVANCE DIRECTIVE BEL ESCALANTE [facility] Encounter Notes: All associated encounter notes This section contains the clinical notes associated to the Encounter. Date/Time Encounter Note(s) Provider Source Mar 26, 2024 11:36 AM ACCOUNTING OF DISC LOSURES NOTE: LOCAL TITLE: STATE PRESCRIPTION DRUG MONITORING PROGRAM STANDARD TITLE: ACCOUNTING OF DISCLOSURES NOTE DATE OF NOTE: MAR 26, 2024@11:36:27 ENTRY DATE: MAR 26, 2024@11:36:27 AUTHOR: JOHN CAMACHO COSIGNER: NEHEMIAH NOEL URGENCY: STATUS: COMPLETED This PDMP query was submitted by John Camacho on behalf of Nehemiah Noel The clinical justification for this PDMP query is to review controlled substances prescribed outside of the [facility], and any additional information that may become available, as an important component of standard clinical care, and in accordance with [facility] policy. Patient information was shared with the PDMP [employer]. The VA prescriber, for which I am a delegate, will be alerted of these PDMP findings through co-signature of this progress note. No prescription(s) for controlled substances outside the [facility] were found in the last 90 days. /robe/ JOHN CAMACHO RN REGISTERED NURSE Signed: 03/26/2024 11:36 /robe/ NEHEMIAH NOEL MD PHYSICIAN Cosigned: 03/29/2024 01:27 JOHN CAMACHO [facility] Mar 26, 2024 11:36 AM PAIN MEDICATION MG T NOTE: LOCAL TITLE: OPIOID/CONTROLLED SUBSTANCE NOTE STANDARD TITLE: PAIN MEDICATION MGT NOTE DATE OF NOTE: MAR 26, 2024@11:36 ENTRY DATE: MAR 26, 2024@11:36:51 AUTHOR: JOHN CAMACHO EXP COSIGNER: URGENCY: STATUS: COMPLETED OPIOID/CONTROLLED SUBSTANCE NOTE Controlled Substance Renewal Request REQUESTED MEDICATIONS: OXYCODONE HCL 5MG/APAP 325MG TAB MAIL TO PATIENT A valid consent for [...] standard clinical care and in accordance with [facility] policy. 04/01/23 08:33 Amy Pittman PDMP [employer] 04/01/23 08:35 Amy Pittman PDMP [employer] 05/09/23 12:16 Zheng Bardales PDMP [employer] 05/24/23 10:07 Ravinder Bunn LPN PDMP [employer] 05/29/23 15:39 Nadazdin-Boskovic,Ognjenk PDMP [employer] 06/30/23 09:50 Nadazdin-Boskovic,Ognjenk PDMP [employer] 07/29/23 09:13 Nadazdin-Boskovic,Ognjenk PDMP [employer] 08/26/23 15:57 Ramsey Patel PDMP [employer] 09/24/23 15:22 Ramsey Patel PDMP [employer] 10/22/23 13:59 Ramsey Patel PDMP [employer] 11/22/23 15:46 Omar-MirekuJohn PDMP [employer] 12/23/23 13:28 Jimena Cox PDMP [employer] 03/18/24 16:28 Jimena Cox PDMP [employer] 03/26/24 11:35 Omar-Mireku,John PDMP [employer] Urine Drug Screen: A urine drug screen is required prior to reaching 90 days of opioid therapy and at least annually thereafter. Collection DT Specimen Test Name Result Units Ref Range 01/24/2024 08:23 URINE !! OPIATES SCREEN NONE-DETECTED Ref: None-Detected, Cutoff = 300 ng/mL 01/24/2024 08:23 URINE !! OXYCODONE SCREEN POSITIVE H* Ref: None-Detected, Cutoff = 100 ng/mL 01/24/2024 08:23 URINE !! METHADONE SCREEN None detected(Negative) LRef: Negative 01/24/2024 08:23 URINE !! BenzoSc NONE-DETECTED Ref: None-Detected, Cutoff = 200 ng/mL 01/24/2024 08:23 URINE !! COCAINE SCREEN NONE-DETECTED Ref: None-Detected,Cutoff = 300 ng/mL 01/24/2024 08:23 URINE !! CANNABINOIDS SCREPOSITIVE H* Ref: None-Detected,Cutoff = 50 ng/mL 01/24/2024 08:23 URINE !! ALCOHOL, ETHYL URNONE-DETECTED mg/dL Ref: NONE-DETECTED, cutoff = 10 mg/dL 01/24/2024 08:23 URINE !! AMPHETAMINES SCRENONE-DETECTED Ref: None-Detected, Cutoff = 1000 ng/mL 01/24/2024 08:23 URINE !! BupreUr NONE-DETECTED Ref: None Detected, Cutoff = 10.0 ng/mL !! Indicates COMMENTS AVAILABLE...Refer to Interim Lab Report. Most Recent Naloxone Prescription Information: Reminder Term: VA-NALOXONE USE Drug: NALOXONE HCL 4MG/SPRAY SOLN NASAL SPRAY Outpatient Medication: NALOXONE HCL 4MG/SPRAY SOLN NASAL SPRAY 04/24/2024@06:08:07 Status: ACTIVE Start date: 01/25/2024@06:08:07 Stop date: 04/24/2024@06:08:07 Duration: 61 D Last release date: 01/25/2024@06:08:07 Days supply: 90 /es/ JOHN CAMACHO RN REGISTERED NURSE Signed: 03/26/2024 11:38 JOHN CAMACHO [facility]
--- OUTSIDE RECORDS SUMMARY | 2024-04-28 11:06 | XMS_ITS | Encounter Summary ---
Author Name [place] Organization [place] Address [address] [place] [address] Care Team Providers Care Lodging Facilities Manager Name Role Phone NEHEMIAH CUEVAS Primary [...] Name Patient's Relationship to Policy [facility] Aug 11, 2014 [id number] DHAVAL SHAQ Wagner [facility]IENT [facility] SUPPLEMEN ARTEMIO [facility] Aug 11, 2014 [id number] [phone] DHAVAL SHAQ Wagner PATIENT [facility] MEDICARE SUPPLEMEN ARTEMIO MEDEX 2 Aug 11, 2014 [id number] DHAVAL SHAQ Wagner PATIENT [place] SUPPLEMEN ARTEMIO MEDEX 2 Aug 11, 2014 [id number] [phone] ARCHAMBRENATA SHAQ Wagner PAT[place] SUPPLEMEN ARTEMIO MEDEX 2 Aug 11, 2014 [id number] [phone] ARCHAMBEA SHAQ Wagner PATIENT [place] MEDICARE SUPPLEMEN [facility] [place] Aug 11, 2014 [id number] SHAQ WONG PATIENT USMANA [facility] (WNR) MEDICARE ADVANTAGE HUMAN A INSUR [place] [facility] Jan 11, 2022 [id number] [phone] ARCHOCTAVIOEA SHAQ Wagner PATIENT USMANA [facility] (WNR) MEDICARE ADVANTAGE [facility] (WNR) Jan 11, 2022 [id number] [phone] ARCHAMBEA SHAQ Wagner PATIENT MEDICARE (WNR) MEDICARE () PART A Dec 11, 2014 PART A [id number] ARCHAMBEA SHAQ Wagner PATIENT MEDICARE (WNR) MEDICARE () PART A Aug 11, 2014 PART A [id number] [phone] ARCHAMBEA SHAQ Wagner PATIENT MEDICARE (WNR) MEDICARE () PART B Aug 11, 2014 PART B [id number] ARCHAMBEA SHAQ Wagner PATIENT MEDICARE (WNR) MEDICARE () PART A Aug 11, 2014 PART A [id number] ARCHAMBEA SHAQ Wagner PATIENT MEDICARE (WNR) MEDICARE () PART B Aug 11, 2014 PART B [id number] [phone] ARCHAMBEA SHAQ Wagner PATIENT MEDICARE (WNR) MEDICARE () PART B Aug 11, 2014 PART B [id number] ARCHAMBEA SHAQ Wagner PATIENT MEDICARE (WNR) MEDICARE () PART A Aug 11, 2014 PART A [id number] [phone] ARCHAMBEA Bernard,SHAQ PATIENT MEDICARE (WNR) MEDICARE () PART B Aug 11, 2014 PART B [id number] ARCHAMBEA SHAQ Wagner PATIENT [facility] (WNR) MEDICARE ADVANTAGE [facility] (WNR) May 13, 2020 [id number] ARCHAMBEA SHAQ Wagner PATIENT Selected Encounter This section includes the information on record at [place] for the Encounter. Date/Time Encounter Type Encounter Description Reason Pro vider Source Apr 02, 2024 10:00 AM Outpatient Encounter COMMUNITY CARE CONSULT IHE Encounter Template Text not used by [place] Plan of Treatment: Future Appointments (+ 6 months) and Future Tests (+/- 45 days) The Plan of Treatment section includes future care activities for the patient from all [place] treatmentfacilities. This section includes future appointments and future orders which are active, pending or scheduled. Future Appointments This section includes appointments that were scheduled to occur 6 months from the date of the Encounter, up to a maximum of 20 appointments. The data comes from all [place] treatment facilities. Appointment Date/Time Appointment Type Appointme nt Facility Name Apr 07, 2024 10:00 AM AMBULATORY - MEDICINE [place] C [facility]L [facility] Apr 20, 2024 08:30 AM AMBULATORY - MEDICINE [facility] Apr 28, 2024 11:00 AM AMBULATORY - MEDICINE [facility] Jun 22, 2024 08:30 AM [facility]ONE [facility] Jul 10, 2024 09:00 AM [facility] Jul 22, 2024 08:00 AM [facility] [...] of theEncounter. The data comes from all [facility]. Test Date/Time Test Type Test Details Facility Name Mar 06, 2024 04:47 PM Consult Order COMMUNITY CARE-DENTAL GENERAL Cons [facility] Apr 20, 2024 01:10 PM Consult Order [facility]-UROLOGY Cons [facility] Lab Results: +/- 30 days of the encounter This section includes the Chemistry and Hematology Lab Results on record with [place] for the patient. Radiology Reports and Pathology Reports are provided separately, in subsequent sections. Lab Results This section contains the Chemistry/Hematology Results that were resulted 30 days before or 30 daysafter the date of the Encounter. Date/Time Source Result Type Result - Unit Interpretation Reference Range Comment Apr 20, 2024 09:33 AM [facility] LIPID PANEL FASTING Specimen Type: SERUM No comment entered. Ordering Provider: NEHEMIAH BOWERS Report Released Date/Time: Apr 15, 2024 02:47 PM Reporting Lab: [facility] [address] [facility] [address] Performing Lab: [facility] [address] [address] CHOLESTEROL 118 mg/dL TRIGLYCERIDE 58 mg/dL 0-150 LDL calculated 55 mg/dL 0-129 CHOL/HDL 2.3 HDL CHOLESTEROL 51 mg/dL 40-60 Apr 20, 2024 09:33 AM [facility] HEMOGLOBIN A1C PANEL Specimen Type: BLOOD Comment: Values obtained from A1C measurements can vary. For atypical A1C assays, a reported value of 7.0 could actually be between 6.72 and 7.28 if measured by a reference method. A reported value of 9.0 could actually be between 8.73 and 9.27. Ref: http://www.ngs p.org/CAPdata. asp Ordering Provider: NEHEMIAH BOWERS Report Released Date/Time: Apr 15, 2024 02:47 PM Reporting Lab: [facility] [address] Performing Lab: [facility] [address] [address] HEMOGLOBIN A1C 5.1 4.0-5.6 Apr 20, 2024 09:33 AM [facility] TSH Specimen Type: SERUM No comment entered. Ordering Provider: NEHEMIAH BOWERS Report Released Date/Time: Apr 15, 2024 02:47 PM Reporting Lab: [facility] [address] [address] Performing Lab: [facility] [address] [address] TSH 2.13 u[IU]/mL 0.35-5.00 Apr 20, 2024 09:33 AM [facility] BASIC METABOLIC PANEL (fasting) Specime n Type: SERUM No comment entered. Ordering Provider: NEHEMIAH BOWERS Report Released Date/Time: Apr 15, 2024 02:47 PM Reporting Lab: [address] [address] Performing Lab: [address] [address] UREA NITROGEN 13 mg/dL 7-25 GLUCOSE 105 mg/dL H 65-100 SODIUM 136 mmol/L 135-145 POTASSIUM 4.9 mmol/L 3.5-5.0 CHLORIDE 101 mmol/L 100-110 CO2 25 meq/L 20-30 CREATININE, Serum 1.04 mg/dL 0.50-1.40 eGFR(CKD-EPI 2020) 75 mL/min >60 Apr 20, 2024 09:33 AM [facility] LIVER FUNCTION Specimen Type: SERUM No comment entered. Ordering Provider: NEHEMIAH BOWERS Report Released Date/Time: Apr 15, 2024 02:47 PM Reporting Lab: [address] [address] Performing Lab: [address] [address] PROTEIN,TOTAL 6.6 g/dL 6.0-8.3 ALBUMIN 3.8 g/dL 3.5-5.0 ALKALINE PHOSPHATASE 111 U/L 40-150 AST 18 U/L 5-34 ALT 34 U/L BILIRUBIN, TOTAL 0.3 mg/dL 0.2-1.2 Apr 20, 2024 09:33 AM [facility] CBC AND DIFF (AUTO) Specimen Type: BLOOD No comment entered. Ordering Provider: NEHEMIAH BOWERS Report Released Date/Time: Apr 15, 2024 02:47 PM Reporting Lab: [address] [address] Performing Lab: [address] [address] WBC 9.20 10*3/uL 4.50-11.00 RBC 3.75 10*6/uL L 4.23-5.66 HGB 10.7 g/dL L 12.8-17 HCT 32.5 L 39.2-50.4 MCV 86.7 fL 82-99 MCHC 32.9 g/dL 30.8-35.1 PLT 622 10*3/uL H 140-360 RDW-CV 12.3 12.0-16.0 MONO, ABS 0.71 10*3/uL 0.30-1.10 MCH 28.5 pg 26.2-32.6 NEUT % 72.7 43.7-75.8 LYMPH % 9.6 L 14.0-42.3 MONO % 7.7 5.1-13.7 EOS % 9.1 H 0.4-6.8 BASO % 0.4 0.1-2.0 NEUT, ABS 6.68 10*3/uL 2.20-7.60 LYMPH, ABS 0.88 10*3/uL L 1.00-3.20 EOS, ABS 0.84 10*3/uL H 0.03-0.44 BASO, ABS 0.04 10*3/uL 0.01-0.13 IMMATURE GRAN % 0.5 0.0-0.7 IMMATURE GRAN, ABS 0.05 10*3/uL 0.00-0.06 NRBC % 0.0 0.0-0.0 NRBC, ABS 0.00 10*3/uL 0.00-0.00 Apr 20, 2024 09:33 AM [facility] FERRITIN Specimen Type: SERUM No comment entered. Ordering Provider: NEHEMIAH BOWERS Report Released Date/Time: Apr 20, 2024 09:28 AM Reporting Lab: [address] [address] Performing Lab: [address] [address] FERRITIN 63 ng/mL 20-300 Apr 20, 2024 09:33 AM [facility] VITAMIN B12 Specimen Type: SERUM No comment entered. Ordering Provider: NEHEMIAH BOWERS Report Released Date/Time: Apr 20, 2024 09:28 AM Reporting Lab: [address] [address] Performing Lab: [address] [address] VITAMIN B12 1032 pg/mL H 200-900 Apr 20, 2024 09:33 AM [facility] IRON & TIBC PANEL Specimen Type: SERUM No comment entered. Ordering Provider: NEHEMIAH BOWERS Report Released Date/Time: Apr 20, 2024 09:28 AM Reporting Lab: [facility] [place] [facility] [address] [facility] [address] Performing Lab: [place] CNTRL [facility] [address] [facility] [address] TIBC 360 ug/dL 204-475 IRON 25 ug/dL L 40-160 Transferrin Saturation 6.9 L 20.0-50.0 Transferrin (TRF) 273 mg/dL 200-360 Social History: Smoking Status (Most current) and Tobacco Use (All prior to encounter date) This section includes the most current, and the historical, smoking and tobacco- related health factors from the [place] facility where the Encounter took place. Current Smoking Status This section includes the most current smoking, or tobacco-related health factor, from the [place] facility where the Encounter took place. Date/Time Current Smoking Status Comment Lor gonzalez Jul 04, 2023 09:00 AM VA-TOBACCO FORMER USER [place] [facility] Tobacco Use History This section includes a history of the smoking, or tobacco-related health factors, that were collected on or before the date of the Encounter. The data comes from the [place] facility where the Encounter took place. Date/Time Smoking Status/Tobacco Use Comment F acdaniel Jul 04, 2023 09:00 AM VA-TOBACCO QUIT 15 YRS OR MORE [place] [facility] [place] [facility] Mar 14, 2022 03:02 PM VA-TOBACCO FORMER USER [place] [facility] [facility] Mar 14, 2022 03:02 PM VA-TOBACCO QUIT 15 YRS OR MORE [place] [facility] [place] [facility] Feb 08, 2021 09:00 AM VA-TOBACCO FORMER USER [place] [facility] [facility] Feb 08, 2021 09:00 AM VA-TOBACCO QUIT 15 YRS OR MORE [place] [facility] [place] [facility] October 09, 2019 01:12 PM VA-TOBACCO FORMER USER [place] [facility] [place] [facility] October 09, 2019 01:12 PM VA-TOBACCO QUIT 5 TO < 15 YRS [place] [facility] Advance Directives: All historical and current Section Date Range: From patient's date of to the date document was created. This section includes ALL of a patient's completed or amended VA Advance and Rescinded Directives. The entries below indicate that a directive exists for the patient, but an actual copy is not included with this document. The data comes from all [place] facilities. Date Advance Directives Provider Source Feb 21, 2021 ADVANCE DIRECTIVE BEL ESCALANTE [facility] Encounter Notes: All associated encounter notes This section contains the clinical notes associated to the Encounter. Date/Time Encounter Note(s) Provider Source Apr 02, 2024 10:00 AM NONVA NOTE: LOCAL TITLE: COMMUNITY CARE-BRENT SELF PRESENTING CARE COORD PLAN STANDARD TITLE: NONVA NOTE DATE OF NOTE: APR 02, 2024@10:00 ENTRY DATE: APR 02, 2024@10:00:33 AUTHOR: ORVILLE BERRIOS EXP COSIGNER: URGENCY: STATUS: COMPLETED COMMUNITY CARE-BRENT SELF PRESENTING CARE COORD PLAN NOTE Has ADDENDA Emergency Notification Intake Date Presenting to the Facility: Mar Method of Contact: Notified from [facility] worklist Notification ID: [id number] [facility] Referral #: [facility] Name: Hospital: [facility] Address: City: [place] State: [place] Zip Code: Phone : [facility] Facility Point of Contact: Name: Yadira Phone: Chief complaint: HEMATURIA, COVID+ Primary Diagnosis: HEMATURIA,HYPO-OSMOLALITY AND HYPONATREMIA Disposition Admitted Route of Admission: ER Date of Admission: Mar Admitting Diagnosis: HEMATURIA,HYPO-OSMOLALITY AND HYPONATREMIA Community Care Provider: Confirm Level of Care: /robe/ ORVILLE LINDQUIST Signed: 04/02/2024 10:01 Receipt Acknowledged By: * AWAITING SIGNATURE * SHABNAM GREEN * AWAITING SIGNATURE * VETO ACHARYA 04/02/2024 11:55 /es/ NEHEMIAH CUEVAS MD PHYSICIAN 04/04/2024 00:18 /es/ CECILIO AL RN REGISTERED NURSE * AWAITING SIGNATURE * EUNICE COHEN * AWAITING SIGNATURE * ALLYSSA DIAZ 04/13/2024 ADDENDUM STATUS: COMPLETED Per call from [place] today, he stated he was discharged on 04/10/24 /robe/ GELA MOYA CARE IN THE COMMUNITY RELATIONS Signed: 04/13/2024 14:09 ORVILLE BERRIOS [place]
--- OUTSIDE RECORDS SUMMARY | 2024-04-28 11:06 | XMS_ITS | Encounter Summary ---
Author Name [place] Address [address] [place] [address] Care Team Providers Care Padding Machine Operator Name Role Phone NEHEMIAH CUEVAS [...] Name Patient's Relationship to Policy [facility] Aug 11, 2014 [id number] [phone] DHAVAL SHAQ Wagner PATIENT ANA BCBS [facility] MEDICARE SUPPLEMEN [facility] Aug 11, 2014 [id number] DHAVAL SHAQ [facility] SUPPLEMEN ARTEMIO MEDEX 2 Aug 11, 2014 [id number] [phone] DHAVAL SHAQ Wagner PATIENT BCBS CT MEDICARE SUPPLEMEN ARTEMIO MEDEX 2 Aug 11, 2014 [id number] ARCHAMBRENATA SHAQ Wagner PATIENT BCBS CT MEDICARE SUPPLEMEN ARTEMIO MEDEX 2 Aug 11, 2014 [id number] ARCHAMBEA SHAQ Wagner [place] MEDICARE SUPPLEMEN [facility] [place] [facility] [place] Aug 11, 2014 [id number] SHAQ WONG PATIENT USMANA [facility] (WNR) MEDICARE ADVANTAGE [facility] (WNR) Jan 11, 2022 [id number] [phone] ARCHOCTAVIOEA SHAQ Wagner PATIENT USMANA [facility] (WNR) MEDICARE ADVANTAGE HUMAN A INSUR [facility] Jan 11, 2022 [id number] [phone] ARCHOCTAVIOEA SHAQ Wagner PATIENT MEDICARE (WNR) MEDICARE () PART A Dec 11, 2014 PART A [id number] ARCHAMBEA SHAQ Wagner PATIENT MEDICARE (WNR) MEDICARE () PART A Aug 11, 2014 PART A [id number] ARCHAMBEA SHAQ Wagner PATIENT MEDICARE (WNR) MEDICARE () PART B Aug 11, 2014 PART B [id number] [phone] ARCHAMBEA SHAQ Wagner PATIENT MEDICARE (WNR) MEDICARE () PART A Aug 11, 2014 PART A [id number] [phone] [id number] ARCHAMBEA SHAQ Wagner PATIENT MEDICARE (WNR) MEDICARE () PART B Aug 11, 2014 PART B [id number] [phone] ARCHAMBEA Bernard,SHAQ PATIENT MEDICARE (WNR) MEDICARE () PART B Aug 11, 2014 PART B [id number] ARCHAMBEA SHAQ Wagner PATIENT MEDICARE (WNR) MEDICARE () PART A Aug 11, 2014 PART A [id number] [phone] ARCHAMBEA SHAQ Wagner PATIENT MEDICARE (WNR) MEDICARE () PART B Aug 11, 2014 PART B [id number] [phone] ARCHAMBEA SHAQ Wagner [facility] (WNR) MEDICARE ADVANTAGE [facility] (WNR) May 13, 2020 [id number] ARCHOCTAVIOEA SHAQ Wagner PATIENT Selected Encounter This section includes the information on record at [place] for the Encounter. Date/Time Encounter Type Encounter Description Reason Pro vider Source Mar 06, 2024 12:00 AM Outpatient Encounter COMMUNITY CARE CONSULT IHE Encounter Template Text not used by [place] Plan of Treatment: Future Appointments (+ 6 months) and Future Tests (+/- 45 days) The Plan of Treatment section includes future care activities for the patient [facility] [place] [facility] This section includes future appointments and future orders which are active, pending or scheduled. Future Appointments This section includes appointments that were scheduled to occur 6 months from the date of the Encounter, up to a maximum of 20 appointments. The data comes from all [place] treatment [facility]. Appointment Date/Time Appointment Type Appointme nt Facility Name Mar 11, 2024 08:30 AM AMBULATORY - MEDICINE [facility] Mar 16, 2024 08:30 AM AMBULATORY - [facility]ICINE [place] [facility] Apr 07, 2024 10:00 AM AMBULATORY - MEDICINE [place] [facility] Apr 20, 2024 08:30 AM AM[facility]ULATORY - MEDICINE [facility] Apr 28, 2024 11:00 AM AMBULATORY - MEDICINE [place] [facility] Jun 22, 2024 08:30 AM AMBULATORY - NONE [place] [facility] [place] [facility] Jul 10, 2024 09:00 AM [facility]UL[facility] Jul 22, 2024 08:00 AM AMBULATORY - MEDICINE [facility] Active, Pending, and Scheduled Orders This section includes a listing of several types of active, pending, and scheduled orders, including clinic medications orders, diagnostic test orders, procedure orders and consult orders; where the start date of the order is 45 days before the date of the Encounter or 45 days after the date of theEncounter. The data comes from all [place] treatment [facility]. Test Date/Time Test Type Test Details Facility Name Jan 29, 2024 06:05 PM Consult Order COMMUNITY CARE-CARDIOLOGY Cons Tit[facility]'s [facility] Mar 06, 2024 04:47 PM Consult Order COMMUNITY CARE-DENTAL GENERAL Cons Titrator's [facility] Apr 20, 2024 01:10 PM Consult Order COMMUNITY CARE-UROLOGY Cons Titrator's [facility] Social History: Smoking Status (Most current) and Tobacco Use (All prior to encounter date) This section includes the most current, and the historical, smoking and tobacco- related health factors from the [place] facility where the Encounter took place. Current Smoking Status This section includes the most current smoking, or tobacco-related health factor, from the [place] facility where the Encounter took place. Date/Time Current Smoking Status Comment Lor gonzalez Jul 04, 2023 09:00 AM VA-TOBACCO QUIT 15 YRS OR MORE [facility] Tobacco Use History This section includes a history of the smoking, or tobacco-related health factors, that were collected on or before the date of the Encounter. The data comes from the [place] facility where the Encounter took place. Date/Time Smoking Status/Tobacco Use Comment Joselyn blas Jul 04, 2023 09:00 AM VA-TOBACCO QUIT 15 YRS OR MORE [place] [facility] [place] [facility] Mar 14, 2022 03:02 PM VA-TOBACCO FORMER USER [place] CNTRL [place] [facility] Mar 14, 2022 03:02 PM VA-TOBACCO QUIT 15 YRS OR MORE [place] [facility] [place] [facility] Feb 08, 2021 09:00 AM VA-TOBACCO FORMER USER [place] [facility]TRL [place] [facility] Feb 08, 2021 09:00 AM VA-TOBACCO QUIT 15 YRS OR MORE [place] [facility] [place] [facility] October 09, 2019 01:12 PM VA-TOBACCO FORMER USER [place]TRL [place] [facility] October 09, 2019 01:12 PM VA-TOBACCO QUIT 5 TO < 15 YRS [place] [facility] [place] [facility] Advance Directives: All historical and [...] 21, 2021 ADVANCE DIRECTIVE BEL ESCALANTE [facility] Encounter Notes: All associated encounter notes This section contains the clinical notes associated to the Encounter. Date/Time Encounter Note(s) Provider Source Mar 06, 2024 12:00 AM NONVA CONSULT: LOCAL TITLE: COMMUNITY CARE-CONSULT RESULT NOTE STANDARD TITLE: NONVA CONSULT DATE OF NOTE: MAR 06, 2024 ENTRY DATE: MAR 31, 2024@12:58:24 AUTHOR: FRANK SWANSON EXP COSIGNER: URGENCY: STATUS: COMPLETED VistA Imaging - Scanned Document SCANNED DOCUMENT SIGNATURE NOT REQUIRED Electronically Filed: 03/31/2024 by: FRANK VELARDE CN[facility]L [facility]
--- OUTSIDE RECORDS SUMMARY | 2024-04-28 11:07 | XMS_ITS | Encounter Summary ---
Author Name [facility] [place] Address [address] [place] [id number] Care Team Providers Care Deliverer Outside Name Role Phone NEHEMIAH CUEVAS Primary Care [...] Name Patient's Relationship to Policy Orellana ANA [facility] Aug 11, 2014 [id number] [phone] DHAVAL SHAQ Wagner PATIENT ANTHEM BCBS [facility] MEDICARE SUPPLEMEN ARTEMIO [facility] Aug 11, 2014 [id number] [phone] ALEJANDROSHAQ COATES PATIENT [place] SUPPLEMEN ARTEMIO MEDEX 2 Aug 11, 2014 [id number] [phone] DHAVAL SHAQ Wagner [place] SUPPLEMEN ARTEMIO MEDEX 2 Aug 11, 2014 [id number] [phone] ARCHSTEPHANIA SHAQ Wagner [place] SUPPLEMEN ARTEMIO MEDEX 2 Aug 11, 2014 [id number] ALEJANDROSHAQ COATES PATIENT [place] MEDICARE SUPPLEMEN [facility] [place] [place] [facility] Aug 11, 2014 [id number] [phone] SHAQ WONG PATIENT USMANA MCR (WNR) MEDICARE ADVANTAGE HUMAN A INSUR [facility] Jan 11, 2022 [id number] [phone] ARCHOCTAVIOEA SHAQ Wagner PATIENT USMANA MCR (WNR) MEDICARE ADVANTAGE [employer] (WNR) Jan 11, 2022 [id number] [phone] ARCHOCTAVIOEA SHAQ Wagner PATIENT MEDICARE (WNR) MEDICARE (M) PART A Dec 11, 2014 PART A [id number] ARCHAMBEA SHAQ Wagner PATIENT MEDICARE (WNR) MEDICARE (M) PART A Aug 11, 2014 PART A [id number] [phone] ARCHAMBEA SHAQ Wagner PATIENT MEDICARE (WNR) MEDICARE (M) PART B Aug 11, 2014 PART B [id number] ARCHAMBEA SHAQ Wagner PATIENT MEDICARE (WNR) MEDICARE (M) PART A Aug 11, 2014 PART A [id number] ARCHAMBEA SHAQ Wagner PATIENT MEDICARE (WNR) MEDICARE (M) PART B Aug 11, 2014 PART B [id number] ARCHAMBEA SHAQ Wagner PATIENT MEDICARE (WNR) MEDICARE (M) PART B Aug 11, 2014 PART B [id number] ARCHOCTAVIOEA SHAQ Wagner PATIENT MEDICARE (WNR) MEDICARE (M) PART A Aug 11, 2014 PART A [id number] ARCHAMBEA SHAQ Wagner PATIENT MEDICARE (WNR) MEDICARE (M) PART B Aug 11, 2014 PART B [id number] ARCHAMBEA SHAQ Wagner [facility] (WNR) MEDICARE ADVANTAGE [employer] (WNR) May 13, 2020 [id number] ARCHOCTAVIOEA SHAQ Wagner PATIENT Selected Encounter This section includes the information on record at [place] for the Encounter. Date/Time Encounter Type Encounter Description Reason Provider Source Apr 20, 2024 08:30 AM OFFICE O/P EST HI 40 MIN PRIMARY CARE/MEDICINE ICD-10-CM I21.4 Non-ST elevation (NSTEMI) myocardial infarction NEHEMIAH BOWERS Lillian Encounter Template Text not used by [place] Assessments - Encounter Diagnoses This section includes the primary and secondary diagnoses documented for the Encounter. Date/Time Primary/Secondary Diagnosis Diagnosis Name Provider Source Apr 26, 2024 02:31 AM PRIMARY Non-ST elevation (NSTEMI) myocardial infarction NEHEMIAH BOWERS [facility] Apr 26, 2024 02:31 AM SECONDARY Abnormal weight loss NEHEMIAH BOWERS [facility] Apr 26, 2024 02:31 AM SECONDARY Estes's esophagus without dysplasia NEHEMIAH BOWERS [facility] Apr 26, 2024 02:31 AM SECONDARY Carcinoma in situ of prostate NEHEMIAH BOWERS [facility] Apr 26, 2024 02:31 AM SECONDARY Hyperlipidemia, unspecified PAULINE BOWERSKELVINEAGLE Lomax [facility] Apr 26, 2024 02:31 AM SECONDARY Iron deficiency anemia secondary to blood loss (chronic) PAULINE BOWERSKELVINEAGLE [facility] Apr 26, 2024 02:31 AM SECONDARY Restless legs syndrome PAULINE BOWERSKELVINEAGLE Lomax [facility] Apr 26, 2024 02:31 AM SECONDARY Solitary pulmonary nodule NEHEMIAH BOWERS [facility] Apr 26, 2024 02:31 AM SECONDARY Unspecified atrial fibrillation PAULINE BOWERSKELVINEAGLE [facility] Apr 26, 2024 02:31 AM SECONDARY Vertebrogenic low back pain PAULINE BOWERSKELVINEAGLE [facility] Plan of Treatment: Future Appointments (+ 6 months) and Future Tests (+/- 45 days) The Plan of Treatment section includes future care activities for the patient from all [place] treatmentfacilities. This section includes future appointments and future orders which are active, pending or scheduled. Future Appointments This section includes appointments that were scheduled to occur 6 months from the date of the Encounter, up to a maximum of 20 appointments. The data comes from all [place] treatment [facility]. Appointment Date/Time Appointment Type Appointme nt Facility Name Apr 28, 2024 11:00 AM AMBULATORY - MEDICINE [facility] Jun 22, 2024 08:30 AM AMBULATORY - NONE [facility] Jul 10, 2024 09:00 AM [facility] - MEDICINE [facility] Jul 22, 2024 08:00 AM [facility] Active, Pending, and Scheduled Orders This section includes a listing of several types of active, pending, and scheduled orders, including clinic medications orders, diagnostic test orders, procedure orders and consult orders; where the start date of the order is 45 days before the date of the Encounter or 45 days after the date of theEncounter. The data comes from all [facility]. Test Date/Time Test Type Test Details Facility Name Mar 06, 2024 04:47 PM Consult Order [facility] Apr 20, 2024 01:10 PM Consult Order [facility]UR[facility] Lab Results: +/- 30 days of the encounter This section includes the Chemistry and Hematology Lab Results on record with [place] for the patient. Radiology Reports and Pathology Reports are provided separately, in subsequent sections. Lab Results This section contains the Chemistry/Hematology Results that were resulted 30 days before or 30 daysafter the date of the Encounter. Date/Time Source Result Type Result - Unit Interpretation Reference Range Comment Apr 20, 2024 09:33 AM [facility] LIPID PANEL FASTING Specimen Type: SERUM No comment entered. Ordering Provider: NEHEMIAH BOWERS Report Released Date/Time: Apr 15, 2024 02:47 PM Reporting Lab: [address] [address] Performing Lab: [address] [address] CHOLESTEROL 118 mg/dL TRIGLYCERIDE 58 mg/dL 0-150 LDL calculated 55 mg/dL 0-129 CHOL/HDL 2.3 HDL CHOLESTEROL 51 mg/dL 40-60 Apr 20, 2024 09:33 AM [facility] HEMOGLOBIN A1C PANEL Specimen Type: BLOOD Comment: [...] Apr 15, 2024 02:47 PM Reporting Lab: [address] [address] Performing Lab: [address] [address] HEMOGLOBIN A1C 5.1 4.0-5.6 Apr 20, 2024 09:33 AM [facility] TSH Specimen Type: SERUM No comment entered. Ordering Provider: NEHEMIAH BOWERS Report Released Date/Time: Apr 15, 2024 02:47 PM Reporting Lab: [address] [address] [facility]: [facility] [address] [address] TSH 2.13 u[IU]/mL 0.35-5.00 Apr 20, 2024 09:33 AM [facility] BASIC METABOLIC PANEL (fasting) Specime n Type: SERUM No comment entered. Ordering Provider: NEHEMIAH BOWERS Report Released Date/Time: Apr 15, 2024 02:47 PM Reporting Lab: [address] [address] Performing [facility]: [facility] [address] [address] UREA NITROGEN 13 mg/dL 7-25 GLUCOSE 105 mg/dL H 65-100 SODIUM 136 mmol/L 135-145 POTASSIUM 4.9 mmol/L 3.5-5.0 CHLORIDE 101 mmol/L 100-110 CO2 25 meq/L 20-30 CREATININE, Serum 1.04 mg/dL 0.50-1.40 eGFR(CKD-EPI 2020) 75 mL/min >60 Apr 20, 2024 09:33 AM [facility] LIVER FUNCTION Specimen Type: SERUM No comment entered. Ordering Provider: NEHEMIAH BOWERS Report Released Date/Time: Apr 15, 2024 02:47 PM Reporting Lab: [address] [address] Performing Lab: [address] [address] PROTEIN,TOTAL 6.6 g/dL 6.0-8.3 ALBUMIN 3.8 g/dL 3.5-5.0 ALKALINE PHOSPHATASE 111 U/L 40-150 AST 18 U/L 5-34 ALT 34 U/L BILIRUBIN, TOTAL 0.3 mg/dL 0.2-1.2 Apr 20, 2024 09:33 AM [facility] CBC AND DIFF (AUTO) Specimen Type: BLOOD No comment entered. Ordering Provider: NEHEMIAH BOWERS Report Released Date/Time: Apr 15, 2024 02:47 PM Reporting Lab: [address] [address] Performing Lab: [address] [address] WBC 9.20 10*3/uL 4.50-11.00 RBC 3.75 10*6/uL [...] 10*3/uL 0.00-0.00 Apr 20, 2024 09:33 AM [facility] FERRITIN Specimen Type: SERUM No comment entered. Ordering Provider: NEHEMIAH BOWERS Report Released Date/Time: Apr 20, 2024 09:28 AM Reporting Lab: [address] [address] Performing Lab: [address] [address] FERRITIN 63 ng/mL 20-300 Apr 20, 2024 09:33 AM [facility] VITAMIN B12 Specimen Type: SERUM No comment entered. Ordering Provider: NEHEMIAH BOWERS Report Released Date/Time: Apr 20, 2024 09:28 AM Reporting Lab: [address] [address] Performing Lab: [address] [address] VITAMIN B12 1032 pg/mL H 200-900 Apr 20, 2024 09:33 AM [facility] IRON & TIBC PANEL Specimen Type: SERUM No comment entered. Ordering Provider: NEHEMIAH BOWERS Report Released Date/Time: Apr 20, 2024 09:28 AM Reporting Lab: [address] [address] Performing Lab: [address] [address] TIBC 360 ug/dL 204-475 IRON 25 ug/dL L 40-160 Transferrin Saturation 6.9 L 20.0-50.0 Transferrin (TRF) 273 mg/dL 200-360 Vital Signs: All taken on the encounter date This section contains inpatient and outpatient Vital Signs collected on the date of the Encounter. Date/Time Temperature Pulse Blood Pressure Respiratory Rate SP02 Pain Height Weight Body Mass Index Source Apr 20, 2024 08:53 AM 97.3 48 149/[address] [facility] Social History: Smoking Status (Most current) and Tobacco Use (All prior to encounter date) This section includes the most current, and the historical, smoking and tobacco- related health factors from the [place] facility where the Encounter took place. Current Smoking Status This section includes the most current smoking, or tobacco-related health factor, from the [place] facility where the Encounter took place. Date/Time Current Smoking Status Comment Facil ity Oct 31, 2018 11:38 AM [place]-TOBACCO QUIT 15 YRS OR MORE [facility] Tobacco Use History This section includes a history of the smoking, or tobacco-related health factors, that were collected on or before the date of the Encounter. The data comes from the [place] facility where the Encounter took place. Date/Time Smoking Status/Tobacco Use Comment F acility Oct 31, 2018 11:38 AM [facility]-TOBACCO QUIT 15 YRS OR MORE [facility] Jul 12, 2017 08:51 AM QUIT TOBACCO USE > 7 YEARS AGO [facility] Mar 30, 2016 08:29 AM QUIT TOBACCO USE > 7 YEARS AGO [facility] Mar 04, 2015 10:57 AM QUIT TOBACCO USE > 7 YEARS AGO [facility] Advance Directives: All historical and current Section Date Range: From patient's date of to the date document was created. This section includes ALL of a patient's completed or amended [place] Advance and Rescinded Directives. The entries below indicate that a directive exists for the patient, but an actual copy is not included with this document. The data comes from all [facility]. Date Advance Directives Provider Source Feb 21, 2021 ADVANCE DIRECTIVE BEL ESCALANTE [facility] Encounter Notes: All associated encounter notes This section contains the clinical notes associated to the Encounter. Date/Time Encounter Note(s) Provider Source Apr 20, 2024 08:30 AM PHYSICIAN NOTE: LOCAL TITLE: NOTE STANDARD TITLE: PHYSICIAN NOTE DATE OF NOTE: APR 20, 2024@08:30 ENTRY DATE: APR 18, 2024@21:23:43 AUTHOR: Anali CUEVAS COSIGNER: URGENCY: STATUS: COMPLETED 73 y/o M with PMH of HL, NSTEMI 2023, paroxismal A. fib , prostate cancer, lung nodule, Estes's esophagus, LBP, RLS here today for posthospital discharge follow-up Last visit 09/2023 PCP is [place] Other providers: -- Cardiology [place]- Dr. Segura [phone]- -- [facility] DR Kevin Bunch 2022 -->s/p foot surgery -- [facility] Headley s/p Left L5-S1 and S1 transforaminal epidural steroid injection q4m -- urologist: Dr. 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 Barraza/Dr. Lawson- [facility] -- [facility]ometry: [facility] -- derm 10/02/18 w DX: SK, [place], Garcias angiomas RTC PRN Recent falls (x)none pt accompanied by his today [facility] [place] Admitted 03/31/2024 Discharged on 04/10/2024 Discharge diagnoses: Hematuria associated with ureteral mass versus clot Acute blood loss anemia COVID-19 Scrotal edema Paroxysmal A-fib with RVR NSTEMI Hyponatremia he was in ICU Discharged to follow-up with 1.urology for hematuria 2.Cardiology for rapid A-fib Patient presented with hematuria Positive for COVID A-fib received IV digoxin and IV amiodarone load and drip Converted to NSR Loaded with amiodarone 400 mg twice daily for 8 days then maintenance 200 mg d Dronedarone was discontinued Started on metoprolol 25 mg twice daily given NSTEMI Given irradiated bladder and bleeding risk discontinued apixaban Plan to get evaluated for Watchman device or start on warfarin f/u cardiology Dr Moreno scheduled for 04/28/2024 at 9 am - referral is active NSTEMI Had normal NMPI in August 2023, suboptimal study TTE March 2024 EF 52% Due to hypertension, A-fib with RVR troponin leak from demand ischemia Switched to atorvastatin 80 mg daily Hematuria associated with ureteral mass versus clot Last Eliquis March 31, 2024 follow-up with urology for cystoscopy scheduled for next saturday 11 am since discharge no hematuria noted Acute blood loss anemia not requiring transfusion Scrotal edema treated with antibiotic clindamycin, pip-tazo, dapto for 3 days, No gangrene, more likely bruising related to Rasmussen evaluated IP by for ?Neymar's gangrene and continuation of daptomycin not indicated- discharged home off antibiotics Sclerotic iliac lesion suspicion for metastatic prostate cancer--> Dr. Cox urology has appointment next week and will schedule f/u with Dr So ---> who has been following him for prostate cancer Discharge medications non [place] ASA Atorvastatin 80mg Amiodarone 200 mg Metoprolol tartrate 25 mg twice daily Continue with Omeprazole 40 mg daily Ropinirole 0.25 mg at bedtime Percocet 1 tablet p.o. 3 times daily as needed Lidocaine patches Ondansetron Naloxone Fluid supplement Discontinued Eliquis 5 mg Lovastatin 20 mg Multaq 400 mg #paroxismal atrial fibrillation Dx 05/2023 On amiodarone and metoprolol apixaban 5mg BID discontinued 03/2024 for hematuria denies alcohol use tolerates medications well no sx of bleeding denies any CP, palpitations, dizziness, SOB since hospital discharge evaluated by community care cardiology NMPI 08/2023 No clear significant ischemia although suboptimal study Gated LVEF is more than 50% Stress EKG is positive for ischemia Per cardiology note 10/2023. LOMBARDI, underlying pulmonary parenchymal disease can not be ruled out. Suggest PFTs, Further follow-up based on the PFT findings. Also could be related to chronotropic incompetence. discontinued metoprolol 10/2023, restarted 03/2024 25 mg Hypertensive today to monitor BP at home and bring log to cardio next week #h/o prostate cancer seen by Dr So 10/2022, PSA 0.3 f/w urology annually new bone pain left illiac area 10 lbs weight loss +, denies night sweats urology f/u PAST MEDICAL HISTORY: -- paroxismal Afib Dx 06/2023 (admitted for Afib w/RVR) -- HL -- Solitary nodule of lung-incidental finding-lung nodule 1 cm, second 0.5 cm History of facility restless exposure, ex-smoker Repeat CT chest 2017, 2018 showed stable nodules since 2014 -- Estes's esophagus last EGD 01/2021 Estes's, no dysplasia -- NSTEMI 2023 -- Prostate cancer -- RLS -- Cdiff [...] -[facility] 2022 ALLERGIES:CODEINE, NEURONTIN MEDICATIONS: Reconciled today Amiodarone 200 mg Metoprolol tartrate 25 twice daily Atorvastatin 80 mg non [place] ASA 81mg ONDANSETRON 4MG q8h prn - not frequently -OXYCODONE HCL 5MG TAB NOT SA TID prn -LIDOCAINE 5% PATCH -DICLOFENAC NA 1% TOP GEL -Non-VA ACETAMINOPHEN 1000MG TID - -OMEPRAZOLE 40MG -ROPINIROLE HCL 0.25MG FLUTICASONE PROP 50MCG 120D NASAL KETOROLAC TROMETHAMINE 0.5% OPH SOLN -LATANOPROST 0.005% OPH 1 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 -NUTRITION SUPL ENSURE PLUS/VANILLA LIQ DRINK 1 CAN TWICE DAILY ROS: Constitutional: no fever/no chills, no ns Eyes: improved after cataract surgery Ears/Nose/Throat: no hearing change Respiratory: no cough/wheezing/SOB Cardiovascular: no CP /palpitations/ le edema Gastrointestinal: no abdominal pain/bloody/black stools :no dysuria/hematuria/trouble voiding MSK: chronic back/neck pain +-stable Neuro: no dizziness/H/A Skin: no pruritus/rash ambulates with a cane, no falls PHYSICAL EXAM: Vital Signs: Blood Pressure: 149/56 (04/20/2024 08:53) 135/69 (10/08/2023 11:04) 124/52 (07/04/2023 08:49) 131/64 (11/08/2022 09:07) 146/68 (03/15/2022 09:10) 135/80 (08/01/2021 09:37) 145/67 (08/01/2021 09:02)-->repeat 135/80 130/69 (02/21/2021 09:21) Pulse: 48 (04/20/2024 08:53) Respiration: 18 (10/02/2023 08:01) Temperature: 97.3 F [36.3 C] (04/20/2024 08:53) Patient Weight: BMI 20.5 132.2 lb [59.96 kg] (04/20/2024 08:53) 141 lb [63.96 kg] (10/02/2023 08:01) 146.6 lb [66.50 kg] (07/04/2023 08:49) 138 lb [62.60 kg] (11/08/2022 09:07) 130.8 lb [59.33 kg] (03/15/2022 09:10) 132.2 lb [59.96 kg] (08/01/2021 09:02) 134 lb [60.9 kg] (02/21/2021 09:21) Gen: pleasant, engaged, NAD neck supple, no LAD Chest/CV: RRR Lungs: CTA b/l Abdomen: BS+, Soft, NT/ND Extremities: no edema, wwp LABORATORY:04/2024 BLOOD Apr 20 Dec 29 Jun 27 Nov 05 Reference 2023 2023 2023 2022 WBC 9.20 6.84 8.96 8.32 K/cmm 4.5 - 11 HGB 10.7 L 13.2 14.0 14.5 g/dL 12.8 - 17 HCT 32.5 L 40.1 42.4 44.7 % 39.2 - 50.4 MCV 86.7 88.7 88.1 90.7 fl 82 - 99 PLT 622 H 249 312 253 K/cmm 140 - 360 FERRITIN (WR): 63 TIBC (WROX): 360 IRON (WROX): 25 L --> TRANSFERRIN SATURATION: 6.9 L --> Transferrin: 273 VIT. B12 (WROX): 1032 H TSH (Access): 2.13 HGB A1C (WR): 5.1 GLUCOSE: 105 H UREA NITROGEN: 13 CREATININE-EGFR: 1.04 eGFR CKD-EPI 2020: 75 SODIUM: 136 POTASSIUM: 4.9 CHLORIDE: 101 CO2: 25 PROTEIN,TOTAL: 6.6 ALBUMIN: 3.8 ALKALINE PHOSPHATASE: 111 BILIRUBIN,TOT.: 0.3 SGOT: 18 SGPT: 34 CHOLESTEROL: 118 TRIGLYCERIDE: 58 LDL CHOL: 55 CHOL/HDL RATIO: 2.3 HDL: 51 IMAGING: #PFT 12/2023 SPIROMETRY: Normal FVC 3.35 L (102%) After [...] There is no significant response to bronchodilator. ASSESSMENT/PLAN: 73 y/o M with PMH of HL, NSTEMI 2023, paroxismal A. fib , prostate cancer, lung nodule, Estes's esophagus, LBP, RLS here today for posthospital discharge follow-up # NSTEMI 02/2024 # HL: Well-controlled LDL 55 -c/w ASA 81mg daily -c/w atorvastatin 80 mg daily -c/w metoprolol 25mg twice daily -Follow-up with cardiology #Paroxysmal Afib -Dx 2023-patient asymptomatic, ventricular rate controlled on metoprolol, amiodarone apixaban discontinued March 2024 for hematuria -c/w non [place] ASA 81 mg -c/w amiodarone 200 mg daily -c/w metoprolol tartrate 25 mg BID -f/w non-VA cardiology to address Watchman procedure #KADEN due to blood loss -Start iron supplementation 325 mg daily, instructed to take iron 4h apart from PPI -check CBC, iron panel prior to next visit # Hematuria -03/2024 CT A/P suspected enhancing mass at the left ureteral orifice measuring 6 mm--> scheduled with Dr. Cox on 04/28/2024 for cystoscopy Discontinued apixaban #Adenocarcinoma of prostate:completed radiation/ADT ([id number]) 01/2016 CT a/p, bone scan - no mets, thickened right bladder base (Negative cystoscopy) 2017 TRUS-benign Bx (PSA 0.69) 2023 at [facility] [place] CT a/p showed Sclerotic posterior right iliac 1cm lesion suspicion for metastatic prostate cancer, -f/w [facility] urology annually PSA indefinitely, last PSA 0.26 (12/2023) urology f/u #Lumbosacral spondylosis with radiculopathy -Degeneration of intervertebral disc cervical spondylosis, -f/w rehab at [facility] -s/p injections --cancelled last injection due to acute issues with afib, hematurria -oxycodone TID prn #RLS: sx well controlled on Ropinirole #ex smoker: quit #lung nodule - f/w nonVA oncology annually stable nodule since 2014 - -Repeat CT chest with contrast In 2020 showed stable subcentimeter pulmonary nodules. CXR 06/2023 ([facility] IP)-Stable hyperinflation b/l, CT chest with contrast 03/2024 showed stable 1.2cm pulmonary nodules, unchanged since 2020 #Estes's esophagus: asymptomatic on PPI UGIB early : NSAID-Induced : avoid NSAIDS- EGD: 01/2021 Estes's, IM, no dysplasia - repeat in 5 y -c/w omeprazole 40mg daily --> B12, Mg wnl f/w GI Dr. Barraza #Unintentional weight loss (since cdiff) -stabilized on nutritional supplements now with 10 lb weight loss after most recent hospitalization-=- -Ensure daily -f/w nutrition Healthcare maintenance: --Lipids: LDL 55 (04/2024) --Diabetes: A1c 5.1 (04/2024) --Colon CA (50-75): due 01/2031 diverticulosis --Lung CA: f/w oncology stable lung nodule [address] chest with contrast 03/2024 showed stable 1.2cm pulmonary nodules, unchanged since 2020 --PSA PSA 0.26 (12/2023) --AAA (smoker/65): 2017 negative --Influenza (yrly): 2023 --COVID-19 (PFIZER) x3 --PCV13 2018 --PCV23: 2016 --HZV (>60yrs, x1): 2014 --RZV (>50yrs, x1): --TDAP: 2014 --Hep C screen: --HIV screen: --DEXA: --Advanced Directives: completed address at next visit : oncology/urology/cardiology notes Return to clinic to see me as scheduled and PRN. Virtual ( ), F2F ( x ) (x )labs ordered prior to f/u ( )request records from outside providers -- urology and cardiology notes prior to next visit --Please call patient, for anemia I prescribed iron to take daily at least 4 hours apart from omeprazole. Complete blood work prior to next visit thank you Medication Reconciliation: Outpatient: Has the patient been taking medications as documented in the EMLR? YES: The patient has been taking medications as documented in the EMLR. Essential Medication List for Review used to complete this medication reconciliation. INCLUDED IN THIS LIST: Alphabetical list of active outpatient prescriptions dispensed from this [facility] (local) and dispensed from another [place] or [place] facility (remote) as well as [...] provider. /robe/ NEHEMIAH CUEVAS MD PHYSICIAN Signed: 04/26/2024 02:31 Receipt Acknowledged By: * AWAITING SIGNATURE * CECILIO AL 04/27/2024 10:21 /robe/ JOSE WEEKS [facility] Apr 10, 2024 12:18 PM ADMINISTRATIVE NOT E: LOCAL TITLE: ADMINISTRATIVE NOTE STANDARD TITLE: ADMINISTRATIVE NOTE DATE OF NOTE: APR 10, 2024@12:18 ENTRY DATE: APR 10, 2024@12:18:28 AUTHOR: CHERELLE KERR EXP COSIGNER: URGENCY: STATUS: COMPLETED [facility] [address] [address] [phone] * SHAQ GREGORIO [address] [place] [id number] Date: APR 10, 2024 re: This is a reminder of your upcoming PCP appt with NEHEMIAH CUEVAS. Appointment Date: Apr@08:30 Appointment Type: In-person visit Fasting blood work NON fasting blood work LEFT MESSAGE ON VOICEMAIL ON HOME PHONE TO CONFIRM APPT Sincerely, Office Staff for: NEHMEIAH CUEVAS Primary Care Provider [place] [facility] [address] [address] T [phone] F [phone] Upcoming Appointments: 04/20/2024 08:30 CWM/SO/PACT 5 04/29/2024 08:30 CWM/NO/MED REHAB/SPINE IN 06/22/2024 08:30 CWM/SO/NUTRITION1 07/22/2024 08:00 CWM/SO/PODIATRY/ROSS APPOINTMENT [facility] (SPOPC OR SO = [place], [address] [facility]) (GOPC OR GO = [place], [address] [facility]) (NHM or NO = [facility]) (VVC - Video Call) (Tel-X Telephone Visit) (TH - Telehealth) /robe/ CHERELLE LINDQUIST Signed: 04/10/2024 12:19 CHERELLE KERR
--- OUTSIDE RECORDS SUMMARY | 2024-04-28 11:07 | XMS_ITS | Encounter Summary ---
Author Name [place] Address [address] [place] [address] Care Team Providers Care Batterboard Setter Name Role Phone NEHEMIAH CUEVAS Primary Care [...] Name Patient's Relationship to Policy Orellana ANA [facility] Aug 11, 2014 [id number] DHAVAL SHAQ Wagner PATIENT ANA BCBS [facility] MEDICARE SUPPLEMEN ARTEMIO [facility] Aug 11, 2014 [id number] [phone] DHAVAL SHAQ Wagner [facility] MEDICARE SUPPLEMEN ARTEMIO MEDEX 2 Aug 11, 2014 [id number] DHAVAL SHAQ [place] ARTEMIO MEDEX 2 Aug 11, 2014 [id number] DHAVAL SHAQ Wagner [place] SUPPLE[place] ARTEMIO MEDEX 2 Aug 11, 2014 [id number] ARCHAMBEA SHAQ Wagner PATIENT [place] MEDICARE SUPPLEMEN [place] Aug 11, 2014 [id number] LAURIEEA SHAQ Wagner PATIENT USMANA [facility] (WNR) MEDICARE ADVANTAGE HUMAN A INSUR [place] [facility] Jan 11, 2022 [id number] [phone] ARCHOCTAVIOEA SHAQ Wagner PATIENT USMANA MCR (WNR) MEDICARE ADVANTAGE [facility] (WNR) Jan 11, 2022 [id number] [phone] ARCHAMBEA USHAQ PATIENT MEDICARE (WNR) MEDICARE (M) PART A Dec 11, 2014 PART A [id number] [phone] ARCHAMBEA U,SHAQ PATIENT MEDICARE (WNR) MEDICARE (M) PART A Aug 11, 2014 PART A [id number] ARCHAMBEA U,SHAQ PATIENT MEDICARE (WNR) MEDICARE () PART B Aug 11, 2014 PART B [id number] [phone] ARCHAMBEA U,SHAQ PATIENT MEDICARE (WNR) MEDICARE () PART A Aug 11, 2014 PART A [id number] [phone] ARCHAMBEA U,SHAQ PATIENT MEDICARE (WNR) MEDICARE () PART B Aug 11, 2014 PART B [id number] [phone] ARCHAMBEA U,SHAQ PATIENT MEDICARE (WNR) MEDICARE () PART A Aug 11, 2014 PART A [id number] ARCHAMBEA U,SHAQ PATIENT MEDICARE (WNR) MEDICARE (M) PART B Aug 11, 2014 PART B [id number] [phone] ARCHAMBEA U,SHAQ PATIENT MEDICARE (WNR) MEDICARE (M) PART B Aug 11, 2014 PART B [id number] [phone] ARCHAMBEA SHAQ Wagner PATIENT [facility] (WNR) MEDICARE ADVANTAGE [facility] (WNR) May 13, 2020 [id number] ARCHAMBEA USHAQ PATIENT Selected Encounter This section includes the information on record at [place] for the Encounter. Date/Time Encounter Type Encounter Description Reason Pro vider Source Apr 07, 2024 05:11 AM Outpatient Encounter ADMIN PAT ACTIVTIES (MASNONCT) IHE Encounter Template Text not used by [place] Plan of Treatment: Future Appointments (+ 6 months) and Future Tests (+/- 45 days) The Plan of Treatment section includes future care activities for the patient from all [place] treatmentfacilities. This section includes future appointments and future orders which are active, pending or scheduled. Future Appointments This section includes appointments that were scheduled to occur 6 months from the date of the Encounter, up to a maximum of 20 appointments. The data comes from all [place] treatment facilities. Appointment Date/Time Appointment Type Appointme nt Facility Name Apr 20, 2024 08:30 AM AMBULATORY - MEDICINE [facility] Apr 28, 2024 11:00 AM AM[facility] Jun 22, 2024 08:30 AM [facility] Jul 10, 2024 09:00 AM AMBULATORY - MEDICINE [facility] Jul 22, 2024 08:00 AM AMBULATORY - MEDICINE [facility] Active, Pending, and Scheduled Orders [...] The data comes from all [place] treatment [facility]. Test Date/Time Test Type Test Details Facility Name Mar 06, 2024 04:47 PM Consult Order COMMUNITY CARE-DENTAL GENERAL Cons Residential Property Tax Appraiser's Choice [facility] Apr 20, 2024 01:10 PM Consult Order COMMUNITY CARE-UROLOGY Cons Residential Property Tax Appraiser's [facility] Lab Results: +/- 30 days of [...] Range Comment Apr 20, 2024 09:33 AM MOBILE LIPID PANEL FASTING Specimen Type: SERUM No comment entered. Ordering Provider: NEHEMIAH BOWERS Report Released Date/Time: Apr 15, 2024 02:47 PM Reporting Lab: [facility] [address] [address] Performing Lab: [facility] [address] [address] CHOLESTEROL 118 mg/dL TRIGLYCERIDE 58 mg/dL 0-150 LDL calculated 55 mg/dL 0-129 CHOL/HDL 2.3 HDL CHOLESTEROL 51 mg/dL 40-60 Apr 20, 2024 09:33 AM MOBILE HEMOGLOBIN A1C PANEL Specimen Type: BLOOD Comment: [...] Apr 15, 2024 02:47 PM Reporting Lab: [facility] [address] [address] Performing Lab: [facility] [address] [address] HEMOGLOBIN A1C 5.1 4.0-5.6 Apr 20, 2024 09:33 AM MOBILE TSH Specimen Type: SERUM No comment entered. Ordering Provider: NEHEMIAH BOWERS Report Released Date/Time: Apr 15, 2024 02:47 PM Reporting Lab: [facility] [address] [address] Performing Lab: [facility] [address] [address] TSH 2.13 u[IU]/mL 0.35-5.00 Apr 20, 2024 09:33 AM MOBILE BASIC METABOLIC PANEL (fasting) Specime n Type: SERUM No comment entered. Ordering Provider: NEHEMIAH BOWERS Report Released Date/Time: Apr 15, 2024 02:47 PM Reporting Lab: [address] [address] Performing Lab: [address] [address] UREA NITROGEN 13 mg/dL 7-25 GLUCOSE 105 mg/dL H 65-100 SODIUM 136 mmol/L 135-145 POTASSIUM 4.9 mmol/L 3.5-5.0 CHLORIDE 101 mmol/L 100-110 CO2 25 meq/L 20-30 CREATININE, Serum 1.04 mg/dL 0.50-1.40 eGFR(CKD-EPI 2020) 75 mL/min >60 Apr 20, 2024 09:33 AM MOBILE LIVER FUNCTION Specimen Type: SERUM No comment entered. Ordering Provider: NEHEMIAH BOWERS Report Released Date/Time: Apr 15, 2024 02:47 PM Reporting Lab: [address] [address] Performing Lab: [address] [address] PROTEIN,TOTAL 6.6 g/dL 6.0-8.3 ALBUMIN 3.8 g/dL 3.5-5.0 ALKALINE PHOSPHATASE 111 U/L 40-150 AST 18 U/L 5-34 ALT 34 U/L BILIRUBIN, TOTAL 0.3 mg/dL 0.2-1.2 Apr 20, 2024 09:33 AM MOBILE CBC AND DIFF (AUTO) Specimen Type: BLOOD No comment entered. Ordering Provider: NEHEMIAH BOWERS Report Released Date/Time: Apr 15, 2024 02:47 PM Reporting Lab: [address] [address] Performing Lab: [address] [address] WBC 9.20 10*3/uL 4.50-11.00 RBC 3.75 10*6/uL [...] 10*3/uL 0.00-0.00 Apr 20, 2024 09:33 AM MOBILE FERRITIN Specimen Type: SERUM No comment entered. Ordering Provider: NEHEMIAH BOWERS Report Released Date/Time: Apr 20, 2024 09:28 AM Reporting Lab: [address] [address] Performing Lab: [address] [address] FERRITIN 63 ng/mL 20-300 Apr 20, 2024 09:33 AM MOBILE VITAMIN B12 Specimen Type: SERUM No comment entered. Ordering Provider: NEHEMIAH BOWERS Report Released Date/Time: Apr 20, 2024 09:28 AM Reporting Lab: [address] [address] Performing Lab: [address] [address] VITAMIN B12 1032 pg/mL H 200-900 Apr 20, 2024 09:33 AM MOBILE IRON & TIBC PANEL Specimen Type: SERUM No comment entered. Ordering Provider: NEHEMIAH BOWERS Report Released Date/Time: Apr 20, 2024 09:28 AM Reporting Lab: [place] [facility] [place] [facility] [address] [facility] [address] Performing Lab: [place] [facility] [facility] [address] [facility] [address] TIBC 360 ug/dL 204-475 IRON 25 ug/dL [...] 04, 2023 09:00 AM VA-TOBACCO FORMER USER [place] [facility] Tobacco Use History This section includes a history of the smoking, or tobacco-related health factors, that were collected on or before the date of the Encounter. The data comes from the [place] facility where the Encounter took place. Date/Time Smoking Status/Tobacco Use Comment Joselyn blas Jul 04, 2023 09:00 AM VA-TOBACCO QUIT 15 YRS OR MORE [place] [facility] [facility] Mar 14, 2022 03:02 PM VA-TOBACCO FORMER USER [place] [facility] [place] [facility] Mar 14, 2022 03:02 PM VA-TOBACCO QUIT 15 YRS OR MORE [place] [facility] [place] [facility] Feb 08, 2021 09:00 AM VA-TOBACCO FORMER USER [place] [facility] [place] [facility] Feb 08, 2021 09:00 AM VA-TOBACCO QUIT 15 YRS OR MORE [place] [facility] [place] [facility] October 09, 2019 01:12 PM VA-TOBACCO FORMER USER [place] [facility] [place] [facility] October 09, 2019 01:12 PM VA-TOBACCO QUIT 5 TO < 15 YRS [facility] Advance Directives: All historical and current [...] ADVANCE DIRECTIVE [facility] Encounter Notes: All associated encounter notes This section contains the clinical notes associated to the Encounter. Date/Time Encounter Note(s) Provider Source Apr 10, 2024 10:53 AM ADDENDUM: LOCAL TITLE: Addendum STANDARD TITLE: ADDENDUM DATE OF NOTE: APR 10, 2024@10:53:47 ENTRY DATE: APR 10, 2024@10:53:48 AUTHOR: NATA MULLIGAN COSIGNER: URGENCY: STATUS: COMPLETED please request d/c summary from [facility]. /robe/ NATA MULLIGAN LPN LPN Signed: 04/10/2024 10:54 Receipt Acknowledged By: 04/10/2024 11:15 /es/ CHERELLE KERR AMSA === --- Original Document --- 04/07/24 CCC: SCHEDULING ADMINISTRATION: Verified Patient Demographics Successfully verified Demographics [place] called to cx appts NHM/OPT/VISUAL IMAGING Apr 07, 2024@10:00 [place] NHM/OPTOMETRY// Apr 07, 2024@10:30 [place]. [place] is currently in [facility] as inpatient due to have surgery 04/07/24 for blood in urine. /es/ JAIME WILCOX Signed: 04/07/2024 05:15 Receipt Acknowledged By: 04/07/2024 15:26 /es/ TELMA CERVANTES GLOST KILN PLACER * AWAITING SIGNATURE * CECILIO AL 04/10/2024 10:53 /robe/ NATA MULLIGAN LPN LPN 04/10/2024 ADDENDUM STATUS: UNSIGNED You may not VIEW this UNSIGNED Addendum. NATA MULLIGAN [facility] Apr 07, 2024 05:11 AM ADMINISTRATIVE NOTE: LOCAL TITLE: CCC: SCHEDULING ADMINISTRATION STANDARD TITLE: ADMINISTRATIVE NOTE DATE OF NOTE: APR 07, 2024@05:11 ENTRY DATE: APR 07, 2024@05:11:36 AUTHOR: COLIN WILCOX COSIGNER: URGENCY: STATUS: COMPLETED CCC: SCHEDULING ADMINISTRATION Has ADDENDA Verified Patient Demographics Successfully verified Demographics called to cx appts NHM/OPT/VISUAL IMAGING Apr 07, 2024@10:00 [place] NHM/OPTOMETRY// Apr 07, 2024@10:30 [place]. [place] is currently in [facility] as inpatient due to have surgery 04/07/24 for blood in urine. /robe/ JAIME WILCOX Signed: 04/07/2024 05:15 Receipt Acknowledged By: 04/07/2024 15:26 /robe/ TELMA CERVANTES GLOST KILN PLACER 04/13/2024 16:22 /es/ CECILIO AL RN REGISTERED NURSE 04/10/2024 10:53 /robe/ NATA MULLIGAN LPN LPN 04/10/2024 ADDENDUM STATUS: COMPLETED please request d/c summary from [facility]. /robe/ NATA MULLIGAN LPN LPN Signed: 04/10/2024 10:54 Receipt Acknowledged By: 04/10/2024 11:15 /robe/ CHERELLE LINDQUIST 04/10/2024 ADDENDUM STATUS: COMPLETED Records requested from [facility] as directed /robe/ CHERELLE LINDQUIST Signed: 04/10/2024 11:16 JAIME WILCOX [facility]
--- OUTSIDE RECORDS SUMMARY | 2024-04-28 11:08 | XMS_ITS | Encounter Summary ---
Author Name Department [place] Organization [place] Address [address] [place] [address] Care Team Providers Care Movement Assembler Name Role Phone NEHEMIAH CUEVAS Primary Care [...] Name Patient's Relationship to Policy Orellana ANA [facility] Aug 11, 2014 [id number] DHAVAL SHAQ Wagner PATIENT [facility] SUPPLEMEN ARTEMIO [facility] Aug 11, 2014 [id number] DHAVAL SHAQ Wagner [facility] SUPPLEMEN ARTEMIO MEDEX 2 Aug 11, 2014 [id number] DHAVAL SHAQ Wagner PATIENT [place] MEDICARE SUPPLEMEN ARTEMIO MEDEX 2 Aug 11, 2014 [id number] [phone] ARCHAMBRENATA SHAQ Wagner PATIENT [place] MED[place]ARE SUPPLEMEN ARTEMIO MEDEX 2 Aug 11, 2014 [id number] ARCHAMBEA SHAQ Wagner [place] MEDICARE SUPPLEMEN [place] Aug 11, 2014 [id number] SHAQ WONG PATIENT USMANA [facility] (WNR) MEDICARE ADVANTAGE HUMAN A INSUR [place] [facility] Jan 11, 2022 [id number] ARCHOCTAVIOEA SHAQ Wagner PATIENT USMANA MCR (WNR) MEDICARE ADVANTAGE [facility] (WNR) Jan 11, 2022 [id number] [phone] ARCHAMBEA SHAQ Wagner PATIENT MEDICARE (WNR) MEDICARE () PART A Dec 11, 2014 PART A [id number] ARCHAMBEA SHAQ Wagner PATIENT MEDICARE (WNR) MEDICARE () PART A Aug 11, 2014 PART A [id number] [id number] [id number] ARCHAMBEA SHAQ Wagner PATIENT MEDICARE (WNR) MEDICARE () PART B Aug 11, 2014 PART B [id number] [id number] [id number] ARCHAMBEA SHAQ Wagner PATIENT MEDICARE (WNR) MEDICARE () PART B Aug 11, 2014 PART B [id number] [phone] ARCHAMBEA SHAQ Wagner PATIENT MEDICARE (WNR) MEDICARE () PART A Aug 11, 2014 PART A [id number] ARCHAMBEA SHAQ Wagner PATIENT MEDICARE (WNR) MEDICARE () PART B Aug 11, 2014 PART B [id number] ARCHAMBEA SHAQ Wagenr PATIENT MEDICARE (WNR) MEDICARE () PART A Aug 11, 2014 PART A [id number] ARCHAMBEA SHAQ Wagner PATIENT MEDICARE (WNR) MEDICARE () PART B Aug 11, 2014 PART B [id number] ARCHAMBEA SHAQ Wagner [facility] (WNR) MEDICARE ADVANTAGE [facility] (WNR) May 13, 2020 [id number] ARCHAMBEA SHAQ Wagner PATIENT Selected Encounter This section includes the information on record at [place] for the Encounter. Date/Time Encounter Type Encounter Description Reason Pro vider Source Apr 16, 2024 11:53 AM Outpatient Encounter OPTOMETRY IHE Encounter Template Text not used by [place] Plan of Treatment: Future Appointments (+ 6 months) and Future Tests (+/- 45 days) The Plan of Treatment section includes future care activities for the patient [facility] [place] [facility] This section includes future appointments and [...] 20, 2024 08:30 AM AMBULATORY - MEDICINE [facility] Apr 28, 2024 11:00 AM AMBULATORY - MEDICINE [facility] Jun 22, 2024 08:30 AM AMBULATORY - NONE [facility] Jul 10, 2024 09:00 AM AMBULATORY - MEDICINE [facility] Jul 22, 2024 08:00 AM AMBULATORY - MEDICINE [facility] Active, [...] of theEncounter. The data comes from all [facility]. Test Date/Time Test Type Test Details Facility Name Mar 06, 2024 04:47 PM Consult Order COMMUNITY CARE-DENTAL GENERAL Cons Methodologist's Choice [facility] Apr 20, 2024 01:10 PM Consult Order COMMUNITY CARE-UROLOGY Cons Methodologist's [facility] Lab Results: +/- 30 days of the [...] Range Comment Apr 20, 2024 09:33 AM [place] HEMOGLOBIN A1C PANEL Specimen Type: BLOOD Comment: [...] Apr 15, 2024 02:47 PM Reporting Lab: [facility] [address] Performing Lab: [facility] [address] HEMOGLOBIN A1C 5.1 4.0-5.6 Apr 20, 2024 09:33 AM [place] TSH Specimen Type: SERUM No comment entered. Ordering Provider: NEHEMIAH BOWERS Report Released Date/Time: Apr 15, 2024 02:47 PM Reporting Lab: [facility] [address] Performing Lab: [facility] [address] [address] TSH 2.13 u[IU]/mL 0.35-5.00 Apr 20, 2024 09:33 AM [place] LIPID PANEL FASTING Specimen Type: SERUM No comment entered. Ordering Provider: NEHEMIAH BOWERS Report Released Date/Time: Apr 15, 2024 02:47 PM Reporting Lab: [facility] [address] Performing Lab: [facility] [address] [address] CHOLESTEROL 118 mg/dL TRIGLYCERIDE 58 mg/dL 0-150 LDL calculated 55 mg/dL 0-129 CHOL/HDL 2.3 HDL CHOLESTEROL 51 mg/dL 40-60 Apr 20, 2024 09:33 AM [place] BASIC METABOLIC PANEL (fasting) Specime n Type: SERUM No comment entered. Ordering Provider: NEHEMIAH BOWERS Report Released Date/Time: Apr 15, 2024 02:47 PM Reporting Lab: [facility] [address] Performing Lab: [address] [address] [place] NITROGEN 13 mg/dL 7-25 GLUCOSE 105 mg/dL H 65-100 SODIUM 136 mmol/L 135-145 POTASSIUM 4.9 mmol/L 3.5-5.0 CHLORIDE 101 mmol/L 100-110 CO2 25 meq/L 20-30 CREATININE, Serum 1.04 mg/dL 0.50-1.40 eGFR(CKD-EPI 2020) 75 mL/min >60 Apr 20, 2024 09:33 AM [place] LIVER FUNCTION Specimen Type: SERUM No comment entered. Ordering Provider: NEHEMIAH BOWERS Report Released Date/Time: Apr 15, 2024 02:47 PM Reporting Lab: [address] [address] Performing Lab: [address] [address] PROTEIN,TOTAL 6.6 g/dL 6.0-8.3 ALBUMIN 3.8 g/dL 3.5-5.0 ALKALINE PHOSPHATASE 111 U/L 40-150 AST 18 U/L 5-34 ALT 34 U/L BILIRUBIN, TOTAL 0.3 mg/dL 0.2-1.2 Apr 20, 2024 09:33 AM [place] CBC AND DIFF (AUTO) Specimen Type: BLOOD No comment entered. Ordering Provider: NEHEMIAH BOWERS Report Released Date/Time: Apr 15, 2024 02:47 PM Reporting Lab: [address] [address] Performing Lab: [address] [address] WBC 9.20 10*3/uL 4.50-11.00 RBC 3.75 10*6/uL [...] 10*3/uL 0.00-0.00 Apr 20, 2024 09:33 AM [place] FERRITIN Specimen Type: SERUM No comment entered. Ordering Provider: NEHEMIAH BOWERS Report Released Date/Time: Apr 20, 2024 09:28 AM Reporting Lab: [address] [address] Performing Lab: [address] [address] FERRITIN 63 ng/mL 20-300 Apr 20, 2024 09:33 AM [place] VITAMIN B12 Specimen Type: SERUM No comment entered. Ordering Provider: NEHEMIAH BOWERS Report Released Date/Time: Apr 20, 2024 09:28 AM Reporting Lab: [address] [address] Performing Lab: [address] [address] VITAMIN B12 1032 pg/mL H 200-900 Apr 20, 2024 09:33 AM [place] IRON & TIBC PANEL Specimen Type: SERUM No comment entered. Ordering Provider: NEHEMIAH BOWERS Report Released Date/Time: Apr 20, 2024 09:28 AM Reporting Lab: [place] [facility] [place] [facility] [address] [facility] [address] Performing Lab: [place] [facility] [address] [facility] [address] TIBC 360 ug/dL 204-475 IRON 25 ug/dL [...] AM VA-TOBACCO QUIT 15 YRS OR MORE [facility] Tobacco Use History This section includes a history of the smoking, or tobacco-related health factors, that were collected on or before the date of the Encounter. The data comes from the [place] facility where the Encounter took place. Date/Time Smoking Status/Tobacco Use Comment F roopa Jul 04, 2023 09:00 AM VA-TOBACCO QUIT 15 YRS OR MORE [place] [facility] [place] [facility] Mar 14, 2022 03:02 PM VA-TOBACCO FORMER USER [place] [facility] [place] [facility] Mar 14, 2022 03:02 PM VA-TOBACCO QUIT 15 YRS OR MORE [place] [facility] [facility] Feb 08, 2021 09:00 AM VA-TOBACCO FORMER USER [place] [facility] [place] [facility] Feb 08, 2021 09:00 AM VA-TOBACCO QUIT 15 YRS OR MORE [facility] [place] [facility] October 09, 2019 01:12 PM VA-TOBACCO FORMER USER [place] [facility] [place] [facility] October 09, 2019 01:12 PM VA-TOBACCO QUIT 5 TO < 15 YRS [place] [facility] [facility] Advance Directives: All historical and current [...] Feb 21, 2021 ADVANCE DIRECTIVE BEL ESCALANTE [facility] Encounter Notes: All associated encounter notes This section contains the clinical notes associated to the Encounter. Date/Time Encounter Note(s) Provider Source Apr 16, 2024 11:53 AM ADMINISTRATIVE NOTE: LOCAL TITLE: ADMINISTRATIVE RECALL NOTE STANDARD TITLE: ADMINISTRATIVE NOTE DATE OF NOTE: APR 16, 2024@11:53 ENTRY DATE: APR 16, 2024@11:53:26 AUTHOR: GILBERT LEE SA COSIGNER: URGENCY: STATUS: COMPLETED RTC orders: Able to contact patient: Spoke to Patient/Patient b2b outside sales representative per policy utilizing HIPAA Guidelines. Identity actively confirmed by: Full name, Full SSN Patient Information/Action: LEXA called and spoke to the . stated that he was just released form the hospital a few days ago for a major bladder bleed and he is having major medical issues and needs to have them addressed before scheduling a future optometry appointment. LEXA informed the that when he is ready to schedule again he can call the [facility] clinic to reschedule the appointment and provided the phone number [phone]. Dispositioned RTC PID 03/18/2024 as the appointment is no longer necessary. Dispositioned on 04/16/2024. /robe/ GILBERT LEE Signed: 04/16/2024 12:02 GILBERT LEE [place] [facility]
--- OUTSIDE RECORDS SUMMARY | 2024-04-28 11:08 | XMS_ITS | Encounter Summary ---
Author Name [place] Address [address] [place] [address] Care Team Providers Care Die Finisher Forging Name Role Phone NEHEMIAH CUEVAS Primary Care [...] Relationship to Policy Orellana ANA [facility] Aug 11, 2014 [id number] DHAVAL SHAQ Wagner PATIENT ANA BCBS [facility] MEDICARE SUPPLEMEN [facility] Aug 11, 2014 [id number] DHAVAL SHAQ Wagner [facility] SUPPLEMEN [facility]EMIO MEDEX 2 Aug 11, 2014 [id number] DHAVAL SHAQ Wagner PATIENT [place] MED[place] SUPPLEMEN [facility] MEDEX 2 Aug 11, 2014 [id number] DHAVAL SHAQ [place] SUPPLEMEN [facility] MEDEX 2 Aug 11, 2014 [id number] ARCHAMBEA SHAQ Wagner PATIENT [facility] BLUECARD MEDICARE SUPPLEMEN [facility] [place] [facility] Aug 11, 2014 [id number] ARCHOCTAVIOEA SHAQ Wagner PATIENT HUMANA [facility] (WNR) MEDICARE ADVANTAGE HUMAN A INSUR [facility] Jan 11, 2022 [id number] [phone] ARCHAMBEA HSAQ Wagner PATIENT USMANA MCR (WNR) MEDICARE ADVANTAGE [facility] (WNR) Jan 11, 2022 [id number] [phone] ARCHAMBEA U,SHAQ PATIENT MEDICARE (WNR) MEDICARE () PART A Dec 11, 2014 PART A [id number] ARCHAMBEA U,SHAQ PATIENT MEDICARE (WNR) MEDICARE () PART B Aug 11, 2014 PART B [id number] ARCHAMBEA U,SHAQ PATIENT MEDICARE (WNR) MEDICARE () PART A Aug 11, 2014 PART A [id number] [phone] ARCHAMBEA U,SHAQ PATIENT MEDICARE (WNR) MEDICARE () PART B Aug 11, 2014 PART B [id number] ARCHAMBEA U,SHAQ PATIENT MEDICARE (WNR) MEDICARE () PART A Aug 11, 2014 PART A [id number] ARCHAMBEA U,SHAQ PATIENT MEDICARE (WNR) MEDICARE () PART B Aug 11, 2014 PART B [id number] ARCHAMBEA U,SHAQ PATIENT MEDICARE (WNR) MEDICARE () PART A Aug 11, 2014 PART A [id number] [phone] ARCHAMBEA U,SHAQ PATIENT MEDICARE (WNR) MEDICARE () PART B Aug 11, 2014 PART B [id number] ARCHAMBEA U,SHAQ PATIENT [facility] (WNR) MEDICARE ADVANTAGE [facility] (WNR) May 13, 2020 [id number] ARCHAMBEA U,SHAQ PATIENT Selected Encounter This section includes the information on record at [place] for the Encounter. Date/Time Encounter Type Encounter Description Reason Pro vider Source Apr 13, 2024 08:30 AM Outpatient Encounter ADMIN PAT ACTIVTIES (MASNONCT) [...] AM AMBULATORY - MEDICINE [facility] Apr 28, 2024 11:00 AM [facility] Jun 22, 2024 08:30 AM [facility] Jul 10, 2024 09:00 AM AMBULATORY - MEDICINE [facility] Jul 22, 2024 08:00 AM AMBULATORY - MEDICINE [facility] Active, Pending, and Scheduled Orders This section includes a listing of several types of active, pending, and scheduled orders, including clinic medications orders, diagnostic test orders, procedure orders and consult orders; where the start date of the order is 45 days before the date of the Encounter or 45 days after the date of theEncounter. The data comes from all [place] treatment [facility]. Test Date/Time Test Type Test Details Facility Name Mar 06, 2024 04:47 PM Consult Order COMMUNITY CARE-DENTAL GENERAL Cons [facility]ert[facility] Apr 20, 2024 01:10 PM Consult Order COMMUNITY CARE-UROLOGY Cons Cook Dessert's [facility] Lab Results: +/- 30 days of the [...] Range Comment Apr 20, 2024 09:33 AM [facility] HEMOGLOBIN A1C PANEL Specimen Type: BLOOD Comment: [...] Apr 15, 2024 02:47 PM Reporting Lab: [address] [address] Performing Lab: [address] [address] HEMOGLOBIN A1C 5.1 4.0-5.6 Apr 20, 2024 09:33 AM [facility] LIPID PANEL FASTING Specimen Type: SERUM No comment entered. Ordering Provider: NEHEMIAH BOWERS Report Released Date/Time: Apr 15, 2024 02:47 PM Reporting Lab: [facility] [address] Performing Lab: [address] [address] CHOLESTEROL 118 mg/dL TRIGLYCERIDE 58 mg/dL 0-150 LDL calculated 55 mg/dL 0-129 CHOL/HDL 2.3 HDL CHOLESTEROL 51 mg/dL 40-60 Apr 20, 2024 09:33 AM [facility] BASIC METABOLIC PANEL (fasting) Specime n Type: SERUM No comment entered. Ordering Provider: NEHEMIAH BOWERS Report Released Date/Time: Apr 15, 2024 02:47 PM Reporting Lab: [facility] [address] [address] Performing Lab: [address] [address] UREA NITROGEN 13 mg/dL 7-25 GLUCOSE 105 mg/dL H 65-100 SODIUM 136 mmol/L 135-145 POTASSIUM 4.9 mmol/L 3.5-5.0 CHLORIDE 101 mmol/L 100-110 CO2 25 meq/L 20-30 CREATININE, Serum 1.04 mg/dL 0.50-1.40 eGFR(CKD-EPI 2020) 75 mL/min >60 Apr 20, 2024 09:33 AM [facility] LIVER FUNCTION Specimen Type: SERUM No comment entered. Ordering Provider: NEHEMIAH BOWERS Report Released Date/Time: Apr 15, 2024 02:47 PM Reporting Lab: [address] [address] Performing Lab: [address] [address] PROTEIN,TOTAL 6.6 g/dL 6.0-8.3 ALBUMIN 3.8 g/dL 3.5-5.0 ALKALINE PHOSPHATASE 111 U/L 40-150 AST 18 U/L 5-34 ALT 34 U/L BILIRUBIN, TOTAL 0.3 mg/dL 0.2-1.2 Apr 20, 2024 09:33 AM [facility] TSH Specimen Type: SERUM No comment entered. Ordering Provider: NEHEMIAH BOWERS Report Released Date/Time: Apr 15, 2024 02:47 PM Reporting Lab: [facility] [address] [facility] [facility] [address] Performing Lab: [address] [address] TSH 2.13 u[IU]/mL 0.35-5.00 Apr 20, 2024 09:33 AM [facility] CBC AND DIFF (AUTO) Specimen Type: BLOOD No comment entered. Ordering Provider: NEHEMIAH BOWERS Report Released Date/Time: Apr 15, 2024 02:47 PM Reporting Lab: [address] [address] Performing Lab: [address] [address] WBC 9.20 10*3/uL 4.50-11.00 RBC 3.75 10*6/uL [...] 10*3/uL 0.00-0.00 Apr 20, 2024 09:33 AM [facility] FERRITIN Specimen Type: SERUM No comment entered. Ordering Provider: NEHEMIAH BOWERS Report Released Date/Time: Apr 20, 2024 09:28 AM Reporting Lab: [address] [address] Performing Lab: [address] [address] FERRITIN 63 ng/mL 20-300 Apr 20, 2024 09:33 AM [facility] IRON & TIBC PANEL Specimen Type: SERUM No comment entered. Ordering Provider: NEHEMIAH BOWERS Report Released Date/Time: Apr 20, 2024 09:28 AM Reporting Lab: [address] [address] Performing Lab: [address] [address] TIBC 360 ug/dL 204-475 IRON 25 ug/dL L 40-160 Transferrin Saturation 6.9 L 20.0-50.0 Transferrin (TRF) 273 mg/dL 200-360 Apr 20, 2024 09:33 AM [facility] VITAMIN B12 Specimen Type: SERUM No comment entered. Ordering Provider: NEHEMIAH BOWERS Report Released Date/Time: Apr 20, 2024 09:28 AM Reporting Lab: [place] [facility] [place] [facility] [address] [facility] [address] Performing Lab: [place] [facility] [place] [facility] [address] [facility] [address] VITAMIN B12 1032 pg/mL H 200-900 Social History: Smoking Status (Most current) and [...] VA-TOBACCO FORMER USER [place] [facility] [place] [facility] Tobacco Use History This section includes a history of the smoking, or tobacco-related health factors, that were collected on or before the date of the Encounter. The data comes from the [place] facility where the Encounter took place. Date/Time Smoking Status/Tobacco Use Comment F roopa Jul 04, 2023 09:00 AM VA-TOBACCO QUIT 15 YRS OR MORE [place] [facility] [place] [facility] Mar 14, 2022 03:02 PM VA-TOBACCO FORMER USER [place] [facility] [place] [facility] Mar 14, 2022 03:02 PM VA-TOBACCO QUIT 15 YRS OR MORE [place] [facility] [place] [facility] Feb 08, 2021 09:00 AM VA-TOBACCO FORMER USER [place] [facility] [place] [facility] Feb 08, 2021 09:00 AM VA-TOBACCO QUIT 15 YRS OR MORE [place] [facility] [place] [facility] October 09, 2019 01:12 PM VA-TOBACCO FORMER USER [place] [facility] [place] [facility] October 09, 2019 01:12 PM [...] Feb 21, 2021 ADVANCE DIRECTIVE BEL ESCALANTE PATRICE [facility] Encounter Notes: All associated encounter notes This section contains the clinical notes associated to the Encounter. Date/Time Encounter Note(s) Provider Source Apr 13, 2024 08:30 AM ADMINISTRATIVE NOT E: LOCAL TITLE: CCC: SCHEDULING ADMINISTRATION STANDARD TITLE: ADMINISTRATIVE NOTE DATE OF NOTE: APR 13, 2024@08:30:15 ENTRY DATE: APR 13, 2024@08:30:15 AUTHOR: HERNANDEZ SALES EXP COSIGNER: URGENCY: STATUS: COMPLETED Patient Demographics Patient Name: SHAQ GREGORIO Patient Primary Phone: [phone] Patient Primary Address: [address] [place] [address] Patient : 1950 Patient Age: 73 Caller/Recipient Relation to Patient: Self Caller Name: SHAQ GREGORIO Administrative Administrative Note Reason: Other Administrative Note Comments: Confirmed/verified the following appt(s) with caller. Pt states he will be attending appt. Date/Time 04/20/2024 08:30 Clinic Name CWM/SO/PACT 5 IMPORTANT: This note was created by [facility] Clinical Contact Center staff. Please do not alert the staff member by adding them as a signer for future communications. Alerts are not monitored by this user. /robe/ HERNANDEZ MANCILLA [facility] Signed: 04/13/2024 08:30 Receipt Acknowledged By: 04/16/2024 09:43 /es/ NATA MULLIGAN LPN LPN 04/13/2024 16:22 /es/ CECILIO AL RN REGISTERED NURSE HERNANDEZ SALES [facility]
--- OUTSIDE RECORDS SUMMARY | 2024-04-28 11:08 | XMS_ITS | Encounter Summary ---
Author Name [place] Organization [place] Address [address] [place] [address] Care Team Providers Care Electromechanic Name Role Phone NEHEMIAH CUEVAS Primary Care [...] Name Patient's Relationship to Policy Orellana [facility] Aug 11, 2014 [id number] DHAVAL SHAQ Wagner [facility] SUPPLEMEN [facility] Aug 11, 2014 [id number] [phone] DHAVAL SHAQ Wagner [facility]IENT [facility] SUPPLEMEN [facility]EMIO MEDEX 2 Aug 11, 2014 [id number] [phone] DHAVAL SHAQ Wagner PATIENT [place]BS [place] MEDICARE SUPPLEMEN [facility]IO MEDEX 2 Aug 11, 2014 [id number] ARCHAMBRENATA SHAQ Wagner PATIENT [place]BS [place] MEDICARE SUPPLEMEN [facility]IO MEDEX 2 Aug 11, 2014 [id number] ARCHAMBEA SHAQ Wagner PATIENT [facility] MEDICARE SUPPLEMEN [facility] [facility] [place] [facility] Aug 11, 2014 [id number] SHAQ WONG PATIENT USMANA [facility] (WNR) MEDICARE ADVANTAGE HUMAN A INSUR [facility] Jan 11, 2022 [id number] [phone] ARCHOCTAVIOEA SHAQ Wagner PATIENT USMANA MCR (WNR) MEDICARE ADVANTAGE [facility] (WNR) Jan 11, 2022 [id number] [phone] ARCHAMBEA SHAQ Wagner PATIENT MEDICARE (WNR) MEDICARE () PART A Dec 11, 2014 PART A [id number] ARCHAMBEA SHAQ Wagner PATIENT MEDICARE (WNR) MEDICARE () PART A Aug 11, 2014 PART A [id number] [phone] ARCHAMBEA SHAQ Wagner PATIENT MEDICARE (WNR) MEDICARE () PART B Aug 11, 2014 PART B [id number] [phone] ARCHAMBEA SHAQ Wagner PATIENT MEDICARE (WNR) MEDICARE () PART A Aug 11, 2014 PART A [id number] ARCHAMBEA SHAQ Wagner PATIENT MEDICARE (WNR) MEDICARE () PART B Aug 11, 2014 PART B [id number] ARCHAMBEA SHAQ Wagner PATIENT MEDICARE (WNR) MEDICARE () PART A Aug 11, 2014 PART A [id number] ARCHAMBEA Bernard,SHAQ PATIENT MEDICARE (WNR) MEDICARE () PART B Aug 11, 2014 PART B [id number] ARCHAMBEA SHAQ Wagner PATIENT MEDICARE (WNR) MEDICARE () PART B Aug 11, 2014 PART B [id number] ARCHAMBEA SHAQ Wagner [facility] (WNR) MEDICARE ADVANTAGE [facility] (WNR) May 13, 2020 [id number] ARCHAMBEA SHAQ Wagner PATIENT Selected Encounter This section includes the information on record at [place] for the Encounter. Date/Time Encounter Type Encounter Description Reason Pro vider Source Apr 16, 2024 12:03 PM Outpatient Encounter OPTOMETRY IHE Encounter Template Text not used by [place] Plan of Treatment: Future Appointments (+ 6 months) and Future Tests (+/- 45 days) The Plan of Treatment section includes future care activities for the patient from all [place] [facility] This section includes future appointments [...] 20, 2024 08:30 AM [facility] Apr 28, 2024 11:00 AM AMBULATORY - MEDICINE [facility] Jun 22, 2024 08:30 AM AMBULATORY - NONE [facility] Jul 10, 2024 09:00 AM AMBULATORY - MEDICINE [facility] Jul 22, 2024 08:00 AM AMBULATORY - MEDICINE [facility] Active, [...] of theEncounter. The data comes from all [place] treatment [facility]. Test Date/Time Test Type Test Details Facility Name Mar 06, 2024 04:47 PM Consult Order COMMUNITY CARE-DENTAL GENERAL Cons Nurse Educator's Choice [facility] Apr 20, 2024 01:10 PM Consult Order COMMUNITY CARE-UROLOGY Cons Nurse Educator's [facility] Lab Results: +/- 30 days of the encounter This section includes the Chemistry and Hematology Lab Results on record with [place] for the patient. Radiology Reports and Pathology Reports are provided separately, in subsequent sections. Lab Results This section contains the Chemistry/Hematology Results that were resulted 30 days before or 30 daysafter the date of the Encounter. Date/Time Source Result Type Result - Unit Interpretation Reference Range Comment Apr 20, 2024 09:33 AM PHILOMATH LIPID PANEL FASTING Specimen Type: SERUM No comment entered. Ordering Provider: NEHEMIAH BOWERS Report Released Date/Time: Apr 15, 2024 02:47 PM Reporting Lab[facility] [address] [address] Performing Lab: [facility] [address] CHOLESTEROL 118 mg/dL TRIGLYCERIDE 58 mg/dL 0-150 LDL calculated 55 mg/dL 0-129 CHOL/HDL 2.3 HDL CHOLESTEROL 51 mg/dL 40-60 Apr 20, 2024 09:33 AM PHILOMATH HEMOGLOBIN A1C PANEL Specimen Type: BLOOD Comment: [...] Apr 15, 2024 02:47 PM Reporting Lab: [facility] [address] Performing Lab: [facility] [address] [address] HEMOGLOBIN A1C 5.1 4.0-5.6 Apr 20, 2024 09:33 AM PHILOMATH TSH Specimen Type: SERUM No comment entered. Ordering Provider: NEHEMIAH BOWERS Report Released Date/Time: Apr 15, 2024 02:47 PM Reporting Lab: [facility] [place] [address] [address] Performing Lab: [facility] [address] TSH 2.13 u[IU]/mL 0.35-5.00 Apr 20, 2024 09:33 AM PHILOMATH BASIC METABOLIC PANEL (fasting) Specime n Type: SERUM No comment entered. Ordering Provider: NEHEMIAH BOWERS Report Released Date/Time: Apr 15, 2024 02:47 PM Reporting Lab: [facility] [address] Performing Lab: [address] [address] UREA NITROGEN 13 mg/dL 7-25 GLUCOSE 105 mg/dL H 65-100 SODIUM 136 mmol/L 135-145 POTASSIUM 4.9 mmol/L 3.5-5.0 CHLORIDE 101 mmol/L 100-110 CO2 25 meq/L 20-30 CREATININE, Serum 1.04 mg/dL 0.50-1.40 eGFR(CKD-EPI 2020) 75 mL/min >60 Apr 20, 2024 09:33 AM PHILOMATH LIVER FUNCTION Specimen Type: SERUM No comment entered. Ordering Provider: NEHEMIAH BOWERS Report Released Date/Time: Apr 15, 2024 02:47 PM Reporting Lab: [address] [address] Performing Lab: [address] [address] PROTEIN,TOTAL 6.6 g/dL 6.0-8.3 ALBUMIN 3.8 g/dL 3.5-5.0 ALKALINE PHOSPHATASE 111 U/L 40-150 AST 18 U/L 5-34 ALT 34 U/L BILIRUBIN, TOTAL 0.3 mg/dL 0.2-1.2 Apr 20, 2024 09:33 AM PHILOMATH CBC AND DIFF (AUTO) Specimen Type: BLOOD No comment entered. Ordering Provider: NEHEMIAH BOWERS Report Released Date/Time: Apr 15, 2024 02:47 PM Reporting Lab: [address] [address] Performing Lab: [address] [address] WBC 9.20 10*3/uL 4.50-11.00 RBC 3.75 10*6/uL [...] 10*3/uL 0.00-0.00 Apr 20, 2024 09:33 AM PHILOMATH FERRITIN Specimen Type: SERUM No comment entered. Ordering Provider: NEHEMIAH BOWERS Report Released Date/Time: Apr 20, 2024 09:28 AM Reporting Lab: [address] [address] Performing Lab: [address] [address] FERRITIN 63 ng/mL 20-300 Apr 20, 2024 09:33 AM PHILOMATH VITAMIN B12 Specimen Type: SERUM No comment entered. Ordering Provider: NEHEMIAH BOWERS Report Released Date/Time: Apr 20, 2024 09:28 AM Reporting Lab: [address] [address] Performing Lab: [address] [address] VITAMIN B12 1032 pg/mL H 200-900 Apr 20, 2024 09:33 AM PHILOMATH IRON & TIBC PANEL Specimen Type: SERUM No comment entered. Ordering Provider: NEHEMIAH BOWERS Report Released Date/Time: Apr 20, 2024 09:28 AM Reporting Lab: [place] [facility] [place] [facility] [address] [facility] [address] Performing Lab: [place] [facility] [facility] [address] [facility] [address] TIBC 360 ug/dL 204-475 IRON 25 ug/dL [...] 04, 2023 09:00 AM VA-TOBACCO FORMER USER [place] CNTRL [facility] Tobacco Use History This section includes a history of the smoking, or tobacco-related health factors, that were collected on or before the date of the Encounter. The data comes from the [place] facility where the Encounter took place. Date/Time Smoking Status/Tobacco Use Comment F roopa Jul 04, 2023 09:00 AM VA-TOBACCO QUIT 15 YRS OR MORE [place] [facility] [place] [facility] Mar 14, 2022 03:02 PM VA-TOBACCO FORMER USER [place] [facility] [place] [facility] Mar 14, 2022 03:02 PM VA-TOBACCO QUIT 15 YRS OR MORE [place] [facility] [place] [facility] Feb 08, 2021 09:00 AM VA-TOBACCO FORMER USER [place] [facility] [place] [facility] Feb 08, 2021 09:00 AM VA-TOBACCO QUIT 15 YRS OR MORE [place] [facility] [facility] October 09, 2019 01:12 PM VA-TOBACCO FORMER USER [place] [facility] [facility] October 09, 2019 01:12 PM VA-TOBACCO QUIT 5 TO < 15 YRS [place] [facility] [facility] Advance Directives: All historical and [...] Provider Source Feb 21, 2021 ADVANCE DIRECTIVE BORISBLE Carolyn [facility] Encounter Notes: All associated encounter notes This section contains the clinical notes associated to the Encounter. Date/Time Encounter Note(s) Provider Source Apr 16, 2024 12:03 PM ADMINISTRATIVE NOTE: LOCAL TITLE: ADMINISTRATIVE RECALL NOTE STANDARD TITLE: ADMINISTRATIVE NOTE DATE OF NOTE: APR 16, 2024@12:03 ENTRY DATE: APR 16, 2024@12:03:12 AUTHOR: GILBERT LEE SA COSIGNER: URGENCY: STATUS: COMPLETED RTC orders: Able to contact patient: Spoke to Patient/Patient food service representative per policy utilizing HIPAA Guidelines. Identity actively confirmed by: Full name, Full SSN Patient Information/Action: LEXA called and spoke to the . stated that he was just released form the hospital a few days ago for a major bladder bleed and he is having major medical issues and needs to have them addressed before scheduling a future VISUAL IMAGING appointment. LEXA informed the that when he is ready to schedule again he can call the [facility] clinic to reschedule the appointment and provided the phone number [phone]. Dispositioned RTC PID 03/18/2024 as the appointment is no longer necessary. Dispositioned on 04/16/2024. /robe/ GILBERT LEE Signed: 04/16/2024 12:03 GILBERT LEE [place] [facility]
--- OUTSIDE RECORDS SUMMARY | 2024-04-28 11:08 | XMS_ITS | Encounter Summary ---
Author Name [place] Address [address] [place] [id number] Care Team Providers Care Remote Encoding Center Manager Name Role Phone NEHEMIAH NOEL Primary Care [...] Patient's Relationship to Policy [facility] Aug 11, 2014 [id number] DHAVAL SHAQ Wagner PATIENT ANA BCBS [facility] MEDICARE SUPPLEMEN [facility]EMIO [facility] Aug 11, 2014 [id number] DHAVAL SHAQ Wagner PATIENT [place] MED[place] SUPPLEMEN ARTEMIO MEDEX 2 Aug 11, 2014 [id number] DHAVAL SHAQ Wagner [facility] ARTEM[facility] MEDEX 2 Aug 11, 2014 [id number] ARCHSTEPHANIA SHAQ Wagner PATIENT [place] SUPPLEMEN ARTEMIO MEDEX 2 Aug 11, 2014 [id number] ARCHOCTAVIOEA SHAQ Wagner [facility] [place] BLUECARD MEDICARE SUPPLEMEN [facility] [place] Aug 11, 2014 [id number] SHAQ WONG PATIENT USMANA [facility] (WNR) MEDICARE ADVANTAGE HUMAN A INSUR [place] Jan 11, 2022 [id number] [phone] ARCHOCTAVIOEA SHAQ Wagner PATIENT USMANA MCR (WNR) MEDICARE ADVANTAGE [facility] (WNR) Jan 11, 2022 [id number] [phone] ARCHAMBEA SHAQ Wagner PATIENT MEDICARE (WNR) MEDICARE (M) PART A Dec 11, 2014 PART A [id number] ARCHAMBEA SHAQ Wagner PATIENT MEDICARE (WNR) MEDICARE () PART A Aug 11, 2014 PART A [id number] ARCHAMBEA SHAQ Wagner PATIENT MEDICARE (WNR) MEDICARE () PART B Aug 11, 2014 PART B [id number] [id number] ARCHAMBEA SHAQ Wagner PATIENT MEDICARE (WNR) MEDICARE () PART B Aug 11, 2014 PART B [id number] [phone] ARCHAMBEA SHAQ Wagner PATIENT MEDICARE (WNR) MEDICARE () PART A Aug 11, 2014 PART A [id number] ARCHAMBEA SHAQ Wagner PATIENT MEDICARE (WNR) MEDICARE () PART B Aug 11, 2014 PART B [id number] ARCHAMBEA SHAQ Wagner PATIENT MEDICARE (WNR) MEDICARE () PART A Aug 11, 2014 PART A [id number] ARCHAMBEA SHAQ Wagner PATIENT MEDICARE (WNR) MEDICARE (M) PART B Aug 11, 2014 PART B [id number] ARCHAMBEA SHAQ Wagner [facility] (WNR) MEDICARE ADVANTAGE [facility] (WNR) May 13, 2020 [id number] ARCHAMBEA SHAQ Wagner PATIENT Selected Encounter This section includes the information on record at [place] for the Encounter. Date/Time Encounter Type Encounter Description Reason Pro vider Source Apr 13, 2024 04:23 PM Outpatient Encounter PRIMARY CARE/MEDICINE IHE Encounter [...] 28, 2024 11:00 AM AMBUL[facility] Jun 22, 2024 08:30 AM [facility] Jul 10, 2024 09:00 AM AMBULATORY - MEDICINE [facility] Jul 22, 2024 08:00 AM AMBULATORY - MEDICINE [facility] Active, Pending, and Scheduled Orders This section includes a listing of several types of active, pending, and scheduled orders, including clinic medications orders, diagnostic test orders, procedure orders and consult orders; where the start date of the order is 45 days before the date of the Encounter or 45 days after the date of theEncounter. The data comes from all [facility]. Test Date/Time Test Type Test Details Facility Name Mar 06, 2024 04:47 PM Consult Order COMMUNITY CARE-DENTAL GENERAL Cons Chief Nurse [facility] Apr 20, 2024 01:10 PM Consult Order COMMUNITY CARE-UROLOGY Cons Chief Nurse Anesthetist[facility] Lab Results: +/- 30 days of [...] Range Comment Apr 20, 2024 09:33 AM [place] HEMOGLOBIN A1C PANEL Specimen Type: BLOOD Comment: [...] Apr 15, 2024 02:47 PM Reporting [facility] [address] [address] Performing [facility]: [facility] [address] [address] HEMOGLOBIN A1C 5.1 4.0-5.6 Apr 20, 2024 09:33 AM [facility] TSH Specimen Type: SERUM No comment entered. Ordering Provider: NEHEMIAH BOWERS Report Released Date/Time: Apr 15, 2024 02:47 PM Reporting [facility] [address] [address] Performing [facility] [address] [address] TSH 2.13 u[IU]/mL 0.35-5.00 Apr 20, 2024 09:33 AM [place] LIPID PANEL FASTING Specimen Type: SERUM No comment entered. Ordering Provider: NEHEMIAH BOWERS Report Released Date/Time: Apr 15, 2024 02:47 PM Reporting Lab: [address] [address] Per[facility] [address] [address] CHOLESTEROL 118 mg/dL TRIGLYCERIDE 58 mg/dL 0-150 LDL calculated 55 mg/dL 0-129 CHOL/HDL 2.3 HDL CHOLESTEROL 51 mg/dL 40-60 Apr 20, 2024 09:33 AM [place] BASIC METABOLIC PANEL (fasting) Specime n Type: SERUM No comment entered. Ordering Provider: NEHEMIAH BOWERS Report Released Date/Time: Apr 15, 2024 02:47 PM Reporting Lab: [place] [facility] [address] [address] Performing Lab: [address] [address] UREA NITROGEN 13 mg/dL 7-25 GLUCOSE 105 mg/dL H 65-100 SODIUM 136 mmol/L 135-145 POTASSIUM 4.9 mmol/L 3.5-5.0 CHLORIDE 101 mmol/L 100-110 CO2 25 meq/L 20-30 CREATININE, Serum 1.04 mg/dL 0.50-1.40 eGFR(CKD-EPI 2020) 75 mL/min >60 Apr 20, 2024 09:33 AM [place] LIVER FUNCTION Specimen Type: SERUM No comment entered. Ordering Provider: NEHEMIAH BOWERS Report Released Date/Time: Apr 15, 2024 02:47 PM Reporting Lab: [address] [address] Performing Lab: [address] [address] PROTEIN,TOTAL 6.6 g/dL 6.0-8.3 ALBUMIN 3.8 g/dL 3.5-5.0 ALKALINE PHOSPHATASE 111 U/L 40-150 AST 18 U/L 5-34 ALT 34 U/L BILIRUBIN, TOTAL 0.3 mg/dL 0.2-1.2 Apr 20, 2024 09:33 AM [place] CBC AND DIFF (AUTO) Specimen Type: BLOOD No comment entered. Ordering Provider: NEHEMIAH BOWERS Report Released Date/Time: Apr 15, 2024 02:47 PM Reporting Lab: [address] [address] Performing Lab: [address] [address] WBC 9.20 10*3/uL 4.50-11.00 RBC 3.75 10*6/uL [...] 10*3/uL 0.00-0.00 Apr 20, 2024 09:33 AM [place] FERRITIN Specimen Type: SERUM No comment entered. Ordering Provider: NEHEMIAH BOWERS Report Released Date/Time: Apr 20, 2024 09:28 AM Reporting Lab: [address] [address] Performing Lab: [address] [address] FERRITIN 63 ng/mL 20-300 Apr 20, 2024 09:33 AM [place] VITAMIN B12 Specimen Type: SERUM No comment entered. Ordering Provider: NEHEMIAH BOWERS Report Released Date/Time: Apr 20, 2024 09:28 AM Reporting Lab: [address] [address] Performing Lab: [address] [address] VITAMIN B12 1032 pg/mL H 200-900 Apr 20, 2024 09:33 AM [place] IRON & TIBC PANEL Specimen Type: SERUM No comment entered. Ordering Provider: NEHEMIAH BOWERS Report Released Date/Time: Apr 20, 2024 09:28 AM Reporting Lab: [place] [facility] [place] [facility] [address] [address] Performing Lab: [place] [facility] [address] [address] TIBC 360 ug/dL 204-475 IRON 25 ug/dL [...] AM VA-TOBACCO QUIT 15 YRS OR MORE [facility] Tobacco Use History This section includes a history of the smoking, or tobacco-related health factors, that were collected on or before the date of the Encounter. The data comes from the [place] facility where the Encounter took place. Date/Time Smoking Status/Tobacco Use Comment Joselyn blas Jul 04, 2023 09:00 AM VA-TOBACCO QUIT 15 YRS OR MORE [place] [facility] [place] [facility] Mar 14, 2022 03:02 PM VA-TOBACCO FORMER USER [place] [facility] [facility] Mar 14, 2022 03:02 PM VA-TOBACCO QUIT 15 YRS OR MORE [place] [facility] [facility] Feb 08, 2021 09:00 AM VA-TOBACCO FORMER USER [place] [facility] [facility] Feb 08, 2021 09:00 AM VA-TOBACCO QUIT 15 YRS OR MORE [place] [facility] [facility] October 09, 2019 01:12 PM VA-TOBACCO FORMER USER [place] [facility] [facility] October 09, 2019 01:12 PM VA-TOBACCO QUIT 5 TO < 15 YRS [place] [facility] [place] [facility] Advance Directives: All historical and [...] 21, 2021 ADVANCE DIRECTIVE BEL ESCALANTE [facility] Encounter Notes: All associated encounter notes This section contains the clinical notes associated to the Encounter. Date/Time Encounter Note(s) Provider Source Apr 13, 2024 04:23 PM PAIN MEDICATION MG T NOTE: LOCAL TITLE: OPIOID/CONTROLLED SUBSTANCE NOTE STANDARD TITLE: PAIN MEDICATION MGT NOTE DATE OF NOTE: APR 13, 2024@16:23 ENTRY DATE: APR 13, 2024@16:23:36 AUTHOR: JOHN CAMACHO COSIGNER: URGENCY: STATUS: COMPLETED OPIOID/CONTROLLED SUBSTANCE NOTE Controlled Substance Renewal Request REQUESTED MEDICATIONS: OXYCODONE HCL 5MG/APAP 325MG TAB - 1 TABLET - TAKE 1 TABLET BY MOUTH THREE TIMES DAILY NEEDED FOR PAIN MAIL TO PATIENT A valid consent for [...] standard clinical care and in accordance with [facility] policy. 05/09/23 12:16 Zheng Bardales PDMP [facility] [place] 05/24/23 10:07 Ravinder Bunn LPN PDMP [facility] [place] 05/29/23 15:39 Liliya Noel PDMP [facility] [place] 06/30/23 09:50 Liliya Noel PDMP [facility] [place] 07/29/23 09:13 Liliya Noel PDMP [facility] [place] 08/26/23 15:57 Ramsey Patel PDMP [facility] [place] 09/24/23 15:22 Ramsey Patel PDMP [facility] [place] 10/22/23 13:59 Ramsey Patel PDMP [facility] [place] 11/22/23 15:46 John Camacho PDMP [facility] [place] 12/23/23 13:28 Jimena Cox PDMP [facility] [place] 03/18/24 16:28 Jimena Cox PDMP [facility] [place] 03/26/24 11:35 John Camacho PDMP [facility] [place] 04/13/24 08:33 SadieCarsonakilahjulián PDMP [facility] [place] Urine Drug Screen: A urine drug screen [...] Start date: 01/25/2024@06:08:07 Stop date: 04/24/2024@06:08:07 Duration: 79 D Last release date: 01/25/2024@06:08:07 Days supply: 90 /es/ JOHN CAMACHO RN REGISTERED NURSE Signed: 04/13/2024 16:23 JOHN CAMACHOFIELD
--- OUTSIDE RECORDS SUMMARY | 2024-04-28 11:08 | XMS_ITS | Encounter Summary ---
Author Name [place] Address [address] [place] [address] Care Team Providers Care Deputy City Clerk Name Role Phone NEHEMIAH NOEL Primary Care [...] Relationship to Policy Orellana ANA [facility] Aug 11, 2014 [id number] DHAVAL SHAQ Wagner PATIENT ANA BCBS [facility] MEDICARE SUPPLEMEN ARTEMIO [facility] Aug 11, 2014 [id number] [phone] DHAVAL SHAQ Wagner PATIENT [place]BS [place] MEDICARE SUPPLEMEN ARTEMIO MEDEX 2 Aug 11, 2014 [id number] DHAVAL SHAQ Wagner [facility] SUPP[facility]MEN ARTEMIO MEDEX 2 Aug 11, 2014 [id number] [phone] ARCHSTEPHANIA SHAQ Wagner PATIENT [place] MEDICARE SUPPLEMEN ARTEMIO MEDEX 2 Aug 11, 2014 [id number] [phone] ARCHOCTAVIOEA SHAQ Wagner [facility] [place] BLU[place]ARD MEDICARE SUPPLEMEN [facility] [place] [facility] Aug 11, 2014 [id number] SHAQ WONG PATIENT USMANA [facility] (WNR) MEDICARE ADVANTAGE HUMAN A INSUR [place] [facility] Jan 11, 2022 [id number] [phone] ARCHOCTAVIOEA SHAQ Wagner PATIENT USMANA MCR (WNR) MEDICARE ADVANTAGE [facility] (WNR) Jan 11, 2022 [id number] [phone] ARCHAMBEA SHAQ Wagner PATIENT MEDICARE (WNR) MEDICARE (M) PART A Dec 11, 2014 PART A [id number] ARCHAMBEA SHAQ Wagner PATIENT MEDICARE (WNR) MEDICARE () PART A Aug 11, 2014 PART A [id number] [phone] ARCHAMBEA SHAQ Wagner PATIENT MEDICARE (WNR) MEDICARE () PART B Aug 11, 2014 PART B [id number] ARCHAMBEA SHAQ Wagner PATIENT MEDICARE (WNR) MEDICARE () PART B Aug 11, 2014 PART B [id number] ARCHAMBEA SHAQ Wagner PATIENT MEDICARE (WNR) MEDICARE () PART A Aug 11, 2014 PART A [id number] ARCHAMBEA SHAQ Wagner PATIENT MEDICARE (WNR) MEDICARE () PART B Aug 11, 2014 PART B [id number] ARCHAMBEA SHAQ Wagner PATIENT MEDICARE (WNR) MEDICARE () PART A Aug 11, 2014 PART A [id number] ARCHAMBEA SHAQ Wagner PATIENT MEDICARE (WNR) MEDICARE (M) PART B Aug 11, 2014 PART B [id number] ARCHAMBEA SHAQ Wagner [facility] (WNR) MEDICARE ADVANTAGE [facility] (WNR) May 13, 2020 [id number] ARCHAMBEA SHAQ Wagner PATIENT Selected Encounter This section includes the information on record at [place] for the Encounter. Date/Time Encounter Type Encounter Description Reason Pro vider Source Apr 13, 2024 08:32 AM Outpatient Encounter PRIMARY CARE/MEDICINE IHE Encounter [...] 20, 2024 08:30 AM AMBULATORY - MEDICINE [facility] Apr 28, 2024 11:00 AM AMBULAT[facility] Jun 22, 2024 08:30 AM [facility] Jul 10, 2024 09:00 AM AMBULATORY - MEDICINE [facility] Jul 22, 2024 08:00 AM AMBULATORY - MEDICINE [facility] Active, Pending, and Scheduled Orders This section includes a listing of several types of active, pending, and scheduled orders, including clinic medications orders, diagnostic test orders, procedure orders and consult orders; where the start date of the order is 45 days before the date of the Encounter or 45 days after the date of theEncounter. The data comes from all [facility]. Test Date/Time Test Type Test Details Facility Name Mar 06, 2024 04:47 PM Consult Order COMMUNITY CARE-DENTAL GENERAL Cons Skid Wrapper's Choice [facility] Apr 20, 2024 01:10 PM Consult Order COMMUNITY CARE-UROLOGY Cons Skid Wrapper's [facility] Lab Results: +/- 30 days [...] Range Comment Apr 20, 2024 09:33 AM [place] HEMOGLOBIN A1C PANEL Specimen Type: BLOOD Comment: [...] Apr 15, 2024 02:47 PM Reporting Lab: [facility] [address] [address] Performing Lab: [facility] [address] [address] HEMOGLOBIN A1C 5.1 4.0-5.6 Apr 20, 2024 09:33 AM [place] TSH Specimen Type: SERUM No comment entered. Ordering Provider: NEHEMIAH BOWERS Report Released Date/Time: Apr 15, 2024 02:47 PM Reporting Lab: [facility] [address] [address] Performing Lab: [facility] [address] [address] TSH 2.13 u[IU]/mL 0.35-5.00 Apr 20, 2024 09:33 AM [place] LIPID PANEL FASTING Specimen Type: SERUM No comment entered. Ordering Provider: NEHEMIAH BOWERS Report Released Date/Time: Apr 15, 2024 02:47 PM Reporting Lab: [address] [address] Performing Lab: [facility] [address] [address] CHOLESTEROL 118 mg/dL TRIGLYCERIDE 58 mg/dL 0-150 LDL calculated 55 mg/dL 0-129 CHOL/HDL 2.3 HDL CHOLESTEROL 51 mg/dL 40-60 Apr 20, 2024 09:33 AM [place] BASIC METABOLIC PANEL (fasting) Specime n Type: SERUM No comment entered. Ordering Provider: NEHEMIAH BOWERS Report Released Date/Time: Apr 15, 2024 02:47 PM Reporting Lab: [facility] [address] [address] Performing Lab: [address] [address] UREA NITROGEN 13 mg/dL 7-25 GLUCOSE 105 mg/dL H 65-100 SODIUM 136 mmol/L 135-145 POTASSIUM 4.9 mmol/L 3.5-5.0 CHLORIDE 101 mmol/L 100-110 CO2 25 meq/L 20-30 CREATININE, Serum 1.04 mg/dL 0.50-1.40 eGFR(CKD-EPI 2020) 75 mL/min >60 Apr 20, 2024 09:33 AM [place] LIVER FUNCTION Specimen Type: SERUM No comment entered. Ordering Provider: NEHEMIAH BOWERS Report Released Date/Time: Apr 15, 2024 02:47 PM Reporting Lab: [address] [address] Performing Lab: [address] [address] PROTEIN,TOTAL 6.6 g/dL 6.0-8.3 ALBUMIN 3.8 g/dL 3.5-5.0 ALKALINE PHOSPHATASE 111 U/L 40-150 AST 18 U/L 5-34 ALT 34 U/L BILIRUBIN, TOTAL 0.3 mg/dL 0.2-1.2 Apr 20, 2024 09:33 AM [place] CBC AND DIFF (AUTO) Specimen Type: BLOOD No comment entered. Ordering Provider: NEHEMIAH BOWERS Report Released Date/Time: Apr 15, 2024 02:47 PM Reporting Lab: [address] [address] Performing Lab: [address] [address] WBC 9.20 10*3/uL 4.50-11.00 RBC 3.75 10*6/uL [...] 10*3/uL 0.00-0.00 Apr 20, 2024 09:33 AM [place] FERRITIN Specimen Type: SERUM No comment entered. Ordering Provider: NEHEMIAH BOWERS Report Released Date/Time: Apr 20, 2024 09:28 AM Reporting Lab: [address] [address] Performing Lab: [address] [address] FERRITIN 63 ng/mL 20-300 Apr 20, 2024 09:33 AM [place] VITAMIN B12 Specimen Type: SERUM No comment entered. Ordering Provider: NEHEMIAH BOWERS Report Released Date/Time: Apr 20, 2024 09:28 AM Reporting Lab: [address] [address] Performing Lab: [address] [address] VITAMIN B12 1032 pg/mL H 200-900 Apr 20, 2024 09:33 AM [place] IRON & TIBC PANEL Specimen Type: SERUM No comment entered. Ordering Provider: NEHEMIAH BOWERS Report Released Date/Time: Apr 20, 2024 09:28 AM Reporting Lab: [place] [facility] [place] [facility] [address] [facility] [address] Performing Lab: [place] [facility] [address] [facility] [facility] [address] TIBC 360 ug/dL 204-475 IRON 25 ug/dL [...] 15 YRS OR MORE [facility] Tobacco Use History This section includes a history of the smoking, or tobacco-related health factors, that were collected on or before the date of the Encounter. The data comes from the [place] facility where the Encounter took place. Date/Time Smoking Status/Tobacco Use Comment Joselyn blas Jul 04, 2023 09:00 AM VA-TOBACCO QUIT 15 YRS OR MORE [place] [facility] [place] [facility] Mar 14, 2022 03:02 PM VA-TOBACCO FORMER USER [place] [facility] [place] [facility] Mar 14, 2022 03:02 PM VA-TOBACCO QUIT 15 YRS OR MORE [place] [facility] [place] [facility] Feb 08, 2021 09:00 AM VA-TOBACCO FORMER USER [place] [facility] [place] [facility] Feb 08, 2021 09:00 AM VA-TOBACCO QUIT 15 YRS OR MORE [place] [facility] [place] [facility] October 09, 2019 01:12 PM VA-TOBACCO FORMER USER [place] [facility] [place] [facility] October 09, 2019 01:12 PM VA-TOBACCO QUIT 5 TO < 15 YRS [place] [facility] [place] [facility] Advance Directives: All historical and current [...] Provider Source Feb 21, 2021 ADVANCE DIRECTIVE ESCALANTEBEL Carolyn [facility] Encounter Notes: All associated encounter notes This section contains the clinical notes associated to the Encounter. Date/Time Encounter Note(s) Provider Source Apr 13, 2024 08:36 AM ACCOUNTING OF DISC LOSURES NOTE: LOCAL TITLE: STATE PRESCRIPTION DRUG MONITORING PROGRAM STANDARD TITLE: ACCOUNTING OF DISCLOSURES NOTE DATE OF NOTE: APR 13, 2024@08:36:59 ENTRY DATE: APR 13, 2024@08:36:59 AUTHOR: Anali NOEL COSIGNER: URGENCY: STATUS: COMPLETED This PDMP query was submitted by Nehemiah Noel. The clinical justification for this PDMP query is to review controlled substances prescribed outside of the [facility], and any additional information that may become available, as an important component of standard clinical care, and in accordance with [facility] policy. Patient information was shared with the PDMP [facility] [place]. No prescription(s) for controlled substances outside the [facility] were found in the last 90 days. /robe/ NEHEMIAH NOEL MD PHYSICIAN Signed: 04/13/2024 08:37 BABAK NOEL [place]
--- OUTSIDE RECORDS SUMMARY | 2024-04-28 11:09 | XMS_ITS | Encounter Summary ---
Author Name Department of Vetera Affairs [place] Organization Department of Vetera [place] Address [address] [place] [address] Care Team Providers Care Director [employer] Name Role Phone NEHEMIAH CUEVAS Primary Care [...] Relationship to Policy Orellana [facility]NA [facility] Aug 11, 2014 [id number] [phone] DHAVAL SHAQ Wagner PATIENT ANA BCBS [facility] MEDICARE SUPPLEMEN ARTEMIO [facility] Aug 11, 2014 [id number] DHAVAL SHAQ Wagner PATIENT [place] SUPPLEMEN ARTEMIO MEDEX 2 Aug 11, 2014 [id number] DHAVAL SHAQ Wagner [facility] SUPPLEMEN ARTEMIO MEDEX 2 Aug 11, 2014 [id number] [phone] ARCHSTEPHANIA SHAQ Wagner PAT[place] SUPPLEMEN ARTEMIO MEDEX 2 Aug 11, 2014 [id number] [phone] ARCHOCTAVIOEA SHAQ Wagner [place] MEDICARE SUPPLEMEN [facility] [place] [facility] Aug 11, 2014 [id number] [phone] SHAQ WONG PATIENT USMANA [facility] (WNR) MEDICARE ADVANTAGE HUMAN A INSUR [facility] Jan 11, 2022 [id number] [phone] ARCHOCTAVIOEA SHAQ Wagner PATIENT USMANA MCR (WNR) MEDICARE ADVANTAGE [facility] (WNR) Jan 11, 2022 [id number] [phone] ARCHAMBEA SHAQ Wagner PATIENT MEDICARE (WNR) MEDICARE () PART A Dec 11, 2014 PART A [id number] [phone] ARCHAMBEA SHAQ Wagner PATIENT MEDICARE (WNR) MEDICARE () PART A Aug 11, 2014 PART A [id number] ARCHAMBEA SHAQ Wagner PATIENT MEDICARE (WNR) MEDICARE () PART B Aug 11, 2014 PART B [id number] ARCHAMBEA SHAQ Wagner PATIENT MEDICARE (WNR) MEDICARE () PART A Aug 11, 2014 PART A [id number] ARCHAMBEA SHAQ Wagner PATIENT MEDICARE (WNR) MEDICARE () PART B Aug 11, 2014 PART B [id number] [phone] ARCHAMBEA Bernard,SHAQ PATIENT MEDICARE (WNR) MEDICARE () PART B Aug 11, 2014 PART B [id number] ARCHAMBEA SHAQ Wagner PATIENT MEDICARE (WNR) MEDICARE () PART A Aug 11, 2014 PART A [id number] [phone] ARCHAMBEA SHAQ Wagner PATIENT MEDICARE (WNR) MEDICARE () PART B Aug 11, 2014 PART B [id number] ARCHAMBEA SHAQ Wagner [facility] (WNR) MEDICARE ADVANTAGE [facility] (WNR) May 13, 2020 [id number] [phone] ARCHAMBEA SHAQ Wagner PATIENT Selected Encounter This section includes the information on record at [place] for the Encounter. Date/Time Encounter Type Encounter Description Reason Pro vider Source Apr 20, 2024 08:54 AM Outpatient Encounter PRIMARY CARE/MEDICINE IHE Encounter Template Text not used by ID Plan of Treatment: Future Appointments (+ 6 [...] 28, 2024 11:00 AM [facility] Jun 22, 2024 08:30 AM AMBULATORY - NONE [facility] Jul 10, 2024 09:00 AM [facility] Jul 22, 2024 08:00 AM [...] of theEncounter. The data comes from all [facility]. Test Date/Time Test Type Test Details Facility Name Mar 06, 2024 04:47 PM Consult Order COMMUNITY CARE-DENTAL GENERAL Cons [employer]ing [employer] [facility] Apr 20, 2024 01:10 PM Consult Order COMMUNITY CARE-UROLOGY [facility] [employer] [employer] [facility] Lab Results: +/- 30 days of the encounter This section includes the Chemistry and Hematology Lab Results on record with ID for the patient. Radiology Reports and Pathology Reports are provided separately, in subsequent sections. Lab Results This section contains the Chemistry/Hematology Results that were resulted 30 days before or 30 daysafter the date of the Encounter. Date/Time Source Result Type Result - Unit Interpretation Reference Range Comment Apr 20, 2024 09:33 AM [facility] HEMOGLOBIN A1C PANEL Specimen Type: BLOOD Comment: [...] Apr 15, 2024 02:47 PM Reporting Lab: [address] [address] [facility]: [facility] [address] HEMOGLOBIN A1C 5.1 4.0-5.6 Apr 20, 2024 09:33 AM [facility] LIPID PANEL FASTING Specimen Type: SERUM No comment entered. Ordering Provider: NEHEMIAH BOWERS Report Released Date/Time: Apr 15, 2024 02:47 PM Reporting Lab: [address] [address] Performing Lab: [address] [address] CHOLESTEROL 118 mg/dL TRIGLYCERIDE 58 mg/dL 0-150 LDL calculated 55 mg/dL 0-129 CHOL/HDL 2.3 HDL CHOLESTEROL 51 mg/dL 40-60 Apr 20, 2024 09:33 AM [facility] TSH Specimen Type: SERUM No comment entered. Ordering Provider: NEHEMIAH BOWERS Report Released Date/Time: Apr 15, 2024 02:47 PM Reporting [facility]: [facility] [address] [address] Performing [facility]: [facility] [address] [address] TSH 2.13 u[IU]/mL 0.35-5.00 Apr 20, 2024 09:33 AM [facility] BASIC METABOLIC PANEL (fasting) Specime n Type: SERUM No comment entered. Ordering Provider: NEHEMIAH BOWERS Report Released Date/Time: Apr 15, 2024 02:47 PM Reporting [facility]: [facility] [address] [address] Performing Lab: [address] [address] UREA NITROGEN 13 mg/dL 7-25 GLUCOSE 105 mg/dL H 65-100 SODIUM 136 mmol/L 135-145 POTASSIUM 4.9 mmol/L 3.5-5.0 CHLORIDE 101 mmol/L 100-110 CO2 25 meq/L 20-30 CREATININE, Serum 1.04 mg/dL 0.50-1.40 eGFR(CKD-EPI 2020) 75 mL/min >60 Apr 20, 2024 09:33 AM [facility] LIVER FUNCTION Specimen Type: SERUM No comment entered. Ordering Provider: NEHEMIAH BOWERS Report Released Date/Time: Apr 15, 2024 02:47 PM Reporting Lab: [address] [address] Performing Lab: [address] [address] PROTEIN,TOTAL 6.6 g/dL 6.0-8.3 ALBUMIN 3.8 g/dL 3.5-5.0 ALKALINE PHOSPHATASE 111 U/L 40-150 AST 18 U/L 5-34 ALT 34 U/L BILIRUBIN, TOTAL 0.3 mg/dL 0.2-1.2 Apr 20, 2024 09:33 AM LANSE CBC AND DIFF (AUTO) Specimen Type: BLOOD No comment entered. Ordering Provider: NEHEMIAH OBWERS Report Released Date/Time: Apr 15, 2024 02:47 PM Reporting Lab: [address] [address] Performing Lab: [address] [address] WBC 9.20 10*3/uL 4.50-11.00 RBC 3.75 10*6/uL [...] 10*3/uL 0.00-0.00 Apr 20, 2024 09:33 AM [facility] FERRITIN Specimen Type: SERUM No comment entered. Ordering Provider: NEHEMIAH BOWERS Report Released Date/Time: Apr 20, 2024 09:28 AM Reporting Lab: [address] [address] Performing Lab: [address] [address] FERRITIN 63 ng/mL 20-300 Apr 20, 2024 09:33 AM [facility] VITAMIN B12 Specimen Type: SERUM No comment entered. Ordering Provider: NEHEMIAH BOWERS Report Released Date/Time: Apr 20, 2024 09:28 AM Reporting Lab: [address] [address] Performing Lab: [address] [address] VITAMIN B12 1032 pg/mL H 200-900 Apr 20, 2024 09:33 AM [facility] IRON & TIBC PANEL Specimen Type: SERUM No comment entered. Ordering Provider: NEHEMIAH BOWERS Report Released Date/Time: Apr 20, 2024 09:28 AM Reporting Lab: [place] [facility] [place] [facility] [address] [facility] [address] Performing Lab: [place] [facility] [place] [facility] [address] [facility] [address] TIBC 360 ug/dL 204-475 IRON 25 ug/dL [...] 2023 09:00 AM VA-TOBACCO FORMER USER ID [facility] Tobacco Use History This section includes a history of the smoking, or tobacco-related health factors, that were collected on or before the date of the Encounter. The data comes from the [place] facility where the Encounter took place. Date/Time Smoking Status/Tobacco Use Comment F acility Jul 04, 2023 09:00 AM VA-TOBACCO QUIT 15 YRS OR MORE ID [facility] [place] [facility] Mar 14, 2022 03:02 PM VA-TOBACCO FORMER USER [place] [facility] [place] [facility] Mar 14, 2022 03:02 PM VA-TOBACCO QUIT 15 YRS OR MORE [place] [facility] [place] [facility] Feb 08, 2021 09:00 AM VA-TOBACCO FORMER USER [place] [facility] [place] [facility] Feb 08, 2021 09:00 AM VA-TOBACCO QUIT 15 YRS OR MORE [place] [facility] [facility] October 09, 2019 01:12 PM VA-TOBACCO FORMER USER [place] [facility] [place] [facility] October 09, 2019 01:12 PM VA-TOBACCO QUIT 5 TO < 15 YRS ID [facility] [facility] Advance Directives: All historical and [...] 21, 2021 ADVANCE DIRECTIVE BEL ESCALANTE [facility] Encounter Notes: All associated encounter notes This section contains the clinical notes associated to the Encounter. Date/Time Encounter Note(s) Provider Source Apr 20, 2024 08:54 AM PREVENTIVE MEDICIN E NURSING NOTE: LOCAL TITLE: CLINICAL REMINDERS/NURSING STANDARD TITLE: PREVENTIVE MEDICINE NURSING NOTE DATE OF NOTE: APR 20, 2024@08:54 ENTRY DATE: APR 20, 2024@08:54:34 AUTHOR: NATA MULLIGAN COSIGNER: URGENCY: STATUS: COMPLETED Influenza Immunization: The patient has received the seasonal influenza vaccine for the current season at another location. Documented: INFLUENZA, UNSPECIFIED FORMULATION Historical Date Administered: Mar 2024 Exact date unknown Information Source: SOURCE UNSPECIFIED RHS Screen: RHS Screen Environmental Check Screening was not completed at this time due to: Another adult present COVID VACCINE - WILL SCHEDULE WHEN READY. /robe/ NATA MULLIGAN LPN LPN Signed: 04/20/2024 08:55 NATA MULLIGAN
--- OUTSIDE RECORDS SUMMARY | 2024-04-28 11:09 | XMS_ITS | Encounter Summary ---
Author Name [place] Address [address] [place] [address] Care Team Providers Care Offset Machine Operator Name Role Phone NEHEMIAH CUEVAS [...] Name Patient's Relationship to Policy [facility] Aug 11, 2014 [id number] DHAVAL SHAQ Wagner PATIENT ANA BCBS [facility] MEDICARE SUPPLEMEN ARTEMIO [facility] Aug 11, 2014 [id number] DHAVAL SHAQ Wagner PATIENT BCBS [place] MEDICARE SUPPLEMEN ARTEMIO MEDEX 2 Aug 11, 2014 [id number] DHAVAL SHAQ Wagner PATIENT BCBS [place] MEDICARE SUPPLEMEN ARTEMIO MEDEX 2 Aug 11, 2014 [id number] DHAVAL SHAQ Wagner PATIENT BCBS [place] MEDICARE SUPPLEMEN ARTEMIO MEDEX 2 Aug 11, 2014 [id number] ARCHAMBEA SHAQ Wagner PATIENT [place] MEDICARE SUPPLEMEN [facility] [place] Aug 11, 2014 [id number] [phone] SHAQ WONG PATIENT USMANA [facility] (WNR) MEDICARE ADVANTAGE HUMAN A INSUR [place] [facility] Jan 11, 2022 [id number] [phone] ARCHOCTAVIOEA SHAQ Wagner PATIENT USMANA MCR (WNR) MEDICARE ADVANTAGE [facility] (WNR) Jan 11, 2022 [id number] [phone] ARCHAMBEA SHAQ Wagner PATIENT MEDICARE (WNR) MEDICARE () PART A Dec 11, 2014 PART A [id number] [phone] ARCHAMBEA U,SHAQ PATIENT MEDICARE (WNR) MEDICARE () PART B Aug 11, 2014 PART B [id number] ARCHAMBEA U,SHAQ PATIENT MEDICARE (WNR) MEDICARE () PART A Aug 11, 2014 PART A [id number] ARCHAMBEA Bernard,SHAQ PATIENT MEDICARE (WNR) MEDICARE () PART B Aug 11, 2014 PART B [id number] [phone] ARCHAMBEA Bernard,SHAQ PATIENT MEDICARE (WNR) MEDICARE () PART A Aug 11, 2014 PART A [id number] ARCHAMBEA U,SHAQ PATIENT MEDICARE (WNR) MEDICARE () PART B Aug 11, 2014 PART B [id number] [phone] ARCHAMBEA U,SHAQ PATIENT MEDICARE (WNR) MEDICARE () PART A Aug 11, 2014 PART A [id number] [phone] ARCHAMBEA U,SHAQ PATIENT MEDICARE (WNR) MEDICARE () PART B Aug 11, 2014 PART B [id number] ARCHAMBEA SHAQ Wagner [facility] (WNR) MEDICARE ADVANTAGE [facility] (WNR) May 13, 2020 [id number] ARCHAMBEA SHAQ Wagner PATIENT Selected Encounter This section includes the information on record at [place] for the Encounter. Date/Time Encounter Type Encounter Description Reason Pro vider Source Apr 16, 2024 12:05 PM Outpatient Encounter PM&RS PHYSICIAN IHE Encounter Template Text not used by [place] Plan of Treatment: Future Appointments (+ 6 [...] 20, 2024 08:30 AM [facility] Apr 28, 2024 11:00 AM [facility] Jun 22, 2024 08:30 AM [facility] Jul 10, 2024 09:00 AM AMBULATORY - MEDICINE [facility] Jul 22, 2024 08:00 AM AMBULATORY - MEDICINE [facility] Active, Pending, and Scheduled Orders This section includes a listing of several types of active, pending, and scheduled orders, including clinic medications orders, diagnostic test orders, procedure orders and consult orders; where the start date of the order is 45 days before the date of the Encounter or 45 days after the date of theEncounter. The data comes from all [facility]. Test Date/Time Test Type Test Details Facility Name Mar 06, 2024 04:47 PM Consult Order COMMUNITY CARE-DENTAL GENERAL Cons [employer] [facility] Apr 20, 2024 01:10 PM Consult Order COMMUNITY [facility]OLOG[facility] Cons Metalizer Field Operation's [facility] Lab Results: +/- 30 days of the encounter This section includes the Chemistry and Hematology Lab Results on record with [place] for the patient. Radiology Reports and Pathology Reports are provided separately, in subsequent sections. Lab Results This section contains the Chemistry/Hematology Results that were resulted 30 days before or 30 daysafter the date of the Encounter. Date/Time Source Result Type Result - Unit Interpretation Reference Range Comment Apr 20, 2024 09:33 AM [facility]IDE LIPID PANEL FASTING Specimen Type: SERUM No comment entered. Ordering Provider: NEHEMIAH BOWERS Report Released Date/Time: Apr 15, 2024 02:47 PM Reporting [facility] [address] [address] Performing Lab: [facility] [address] [address] CHOLESTEROL 118 mg/dL TRIGLYCERIDE 58 mg/dL 0-150 LDL calculated 55 mg/dL 0-129 CHOL/HDL 2.3 HDL CHOLESTEROL 51 mg/dL 40-60 Apr 20, 2024 09:33 AM WINSIDE TSH Specimen Type: SERUM No comment entered. Ordering Provider: NEHEMIAH BOWERS Report Released Date/Time: Apr 15, 2024 02:47 PM Reporting Lab[facility] [address] [address] Performing Lab: [address] [address] TSH 2.13 u[IU]/mL 0.35-5.00 Apr 20, 2024 09:33 AM [facility]IDE HEMOGLOBIN A1C PANEL Specimen Type: BLOOD Comment: [...] Apr 15, 2024 02:47 PM Reporting [facility] [address] [address] Performing Lab: [address] [address] HEMOGLOBIN A1C 5.1 4.0-5.6 Apr 20, 2024 09:33 AM [facility]IDE BASIC METABOLIC PANEL (fasting) Specime n Type: SERUM No comment entered. Ordering Provider: NEHEMIAH BOWERS Report Released Date/Time: Apr 15, 2024 02:47 PM Reporting Lab: [facility] [address] Performing Lab: [address] [address] UREA NITROGEN 13 mg/dL 7-25 GLUCOSE 105 mg/dL H 65-100 SODIUM 136 mmol/L 135-145 POTASSIUM 4.9 mmol/L 3.5-5.0 CHLORIDE 101 mmol/L 100-110 CO2 25 meq/L 20-30 CREATININE, Serum 1.04 mg/dL 0.50-1.40 eGFR(CKD-EPI 2020) 75 mL/min >60 Apr 20, 2024 09:33 AM WINSIDE LIVER FUNCTION Specimen Type: SERUM No comment entered. Ordering Provider: NEHEMIAH BOWERS Report Released Date/Time: Apr 15, 2024 02:47 PM Reporting Lab: [address] [address] Performing Lab: [address] [address] PROTEIN,TOTAL 6.6 g/dL 6.0-8.3 ALBUMIN 3.8 g/dL 3.5-5.0 ALKALINE PHOSPHATASE 111 U/L 40-150 AST 18 U/L 5-34 ALT 34 U/L BILIRUBIN, TOTAL 0.3 mg/dL 0.2-1.2 Apr 20, 2024 09:33 AM WINSIDE CBC AND DIFF (AUTO) Specimen Type: BLOOD No comment entered. Ordering Provider: NEHEMIAH BOWERS Report Released Date/Time: Apr 15, 2024 02:47 PM Reporting Lab: [address] [address] Performing Lab: [address] [address] WBC 9.20 10*3/uL 4.50-11.00 RBC 3.75 10*6/uL [...] 10*3/uL 0.00-0.00 Apr 20, 2024 09:33 AM WINSIDE FERRITIN Specimen Type: SERUM No comment entered. Ordering Provider: NEHEMIAH BOWERS Report Released Date/Time: Apr 20, 2024 09:28 AM Reporting Lab: [address] [address] Performing Lab: [address] [address] FERRITIN 63 ng/mL 20-300 Apr 20, 2024 09:33 AM WINSIDE VITAMIN B12 Specimen Type: SERUM No comment entered. Ordering Provider: NEHEMIAH BOWERS Report Released Date/Time: Apr 20, 2024 09:28 AM Reporting Lab: [address] [address] Performing Lab: [address] [address] VITAMIN B12 1032 pg/mL H 200-900 Apr 20, 2024 09:33 AM WINSIDE IRON & TIBC PANEL Specimen Type: SERUM No comment entered. Ordering Provider: NEHEMIAH BOWERS Report Released Date/Time: Apr 20, 2024 09:28 AM Reporting Lab: [place] [facility] [place] [facility] [address] [facility] [address] Performing Lab: [place] [facility] [place] [facility] [address] [facility] [address] TIBC 360 ug/dL 204-475 IRON 25 ug/dL [...] 04, 2023 09:00 AM VA-TOBACCO [facility] Tobacco Use History This section includes a history of the smoking, or tobacco-related health factors, that were collected on or before the date of the Encounter. The data comes from the [place] facility where the Encounter took place. Date/Time Smoking Status/Tobacco Use Comment Joselyn blas Jul 04, 2023 09:00 AM VA-TOBACCO QUIT 15 YRS OR MORE [place] [facility] [place] [facility] Mar 14, 2022 03:02 PM VA-TOBACCO FORMER USER [place] [facility] [place] [facility] Mar 14, 2022 03:02 PM VA-TOBACCO QUIT 15 YRS OR MORE [place] [facility] [place] [facility] Feb 08, 2021 09:00 AM VA-TOBACCO FORMER USER [place] [facility] [place] [facility] Feb 08, 2021 09:00 AM VA-TOBACCO QUIT 15 YRS OR MORE [place] [facility] [place] [facility] October 09, 2019 01:12 PM VA-TOBACCO FORMER USER [place] [facility] [place] [facility] October 09, 2019 01:12 PM VA-TOBACCO QUIT 5 TO < 15 YRS [place] [facility] [facility] Advance Directives: All historical and current Section [...] 2021 ADVANCE DIRECTIVE BEL ESCALANTE [facility] Encounter Notes: All associated encounter notes This section contains the clinical notes associated to the Encounter. Date/Time Encounter Note(s) Provider Source Apr 16, 2024 12:18 PM ADDENDUM: LOCAL TITLE: Addendum STANDARD TITLE: ADDENDUM DATE OF NOTE: APR 16, 2024@12:18:55 ENTRY DATE: APR 16, 2024@12:18:56 AUTHOR: JAVIER HARPER COSIGNER: URGENCY: STATUS: COMPLETED FYI to Rehab Medicine team /robe/ JAVIER HARPER ADVANCED INSPECTOR PRECISION ASSEMBLY Signed: 04/16/2024 12:19 Receipt Acknowledged By: 04/16/2024 13:05 /robe/ Lily Mojica LPN LPN 04/16/2024 13:03 /robe/ Rashida Willson RN Med Rehab === --- Original Document --- 04/16/24 ADMINISTRATIVE RECALL NOTE: RTC orders: Able to contact patient: Spoke to Patient/Patient pharmaceutical representative per policy utilizing HIPAA Guidelines. Identity actively confirmed by: Full name, Full SSN Patient Information/Action: LEXA called and spoke to the to rs cx cl cwm/no/med rehab/spine inj appointment that was scheduled for 04/29/2024 at 8:30am. stated that he was just released form the hospital a few days ago for a major bladder bleed and he is having major medical issues and needs to have them addressed before scheduling a future CWM/NO/MED REHAB/SPINE INJECTION appointment. AMSA informed the that when he is ready to schedule again he can call the [facility] clinic to reschedule the appointment and provided the phone number [phone]. Dispositioned RTC PID 02/29/2024 as the appointment is no longer necessary. Dispositioned on 04/16/2024. /reba LEE Signed: 04/16/2024 12:08 Receipt Acknowledged By: 04/16/2024 12:18 /reba HAPRER ADVANCED INSPECTOR PRECISION ASSEMBLY JAVIER HARPER [place] [facility] [place] [facility] Apr 16, 2024 12:05 PM ADMINISTRATIVE NOTE: LOCAL TITLE: ADMINISTRATIVE RECALL NOTE STANDARD TITLE: ADMINISTRATIVE NOTE DATE OF NOTE: APR 16, 2024@12:05 ENTRY DATE: APR 16, 2024@12:05:23 AUTHOR: GILBERT LEE SA COSIGNER: URGENCY: STATUS: COMPLETED ADMINISTRATIVE RECALL NOTE Has ADDENDA RTC orders: Able to contact patient: Spoke to Patient/Patient pharmaceutical representative per policy utilizing HIPAA Guidelines. Identity actively confirmed by: Full name, Full SSN Patient Information/Action: LEXA called and spoke to the to rs cx cl cwm/no/med rehab/spine inj appointment that was scheduled for 04/29/2024 at 8:30am. stated that he was just released form the hospital a few days ago for a major bladder bleed and he is having major medical issues and needs to have them addressed before scheduling a future CWM/NO/MED REHAB/SPINE INJECTION appointment. LEXA informed the that when he is ready to schedule again he can call the [facility] clinic to reschedule the appointment and provided the phone number [phone]. Dispositioned RTC PID 02/29/2024 as the appointment is no longer necessary. Dispositioned on 04/16/2024. /reba LEE Signed: 04/16/2024 12:08 Receipt Acknowledged By: 04/16/2024 12:18 /reba HARPER ADVANCED INSPECTOR PRECISION ASSEMBLY 04/16/2024 ADDENDUM STATUS: COMPLETED FYI to Rehab Medicine team /reba HARPER ADVANCED INSPECTOR PRECISION ASSEMBLY Signed: 04/16/2024 12:19 Receipt Acknowledged By: * AWAITING SIGNATURE * LILY MOJICA * AWAITING SIGNATURE * RASHIDA WILLSON [facility]STINE SARAH [facility]
--- OUTSIDE RECORDS SUMMARY | 2024-04-28 11:09 | XMS_ITS | Encounter Summary ---
Author Name [place] Address [address] [place] [address] Care Team Providers Care Paper Machine Back Tender Name Role Phone NEHEMIAH CUEVAS Primary Care [...] [facility] Aug 11, 2014 [id number] [phone] DHAVAL SHAQ Wagner PATIENT [facility] SUPPLEMEN ARTEMIO [facility] Aug 11, 2014 [id number] ARCHSTEPHANIA SHAQ Wagner [facility]PP[facility] ARTEMIO MEDEX 2 Aug 11, 2014 [id number] DHAVAL SHAQ Wagner [facility] SUPPLEMEN ARTEMIO MEDEX 2 Aug 11, 2014 [id number] [phone] ARCHSTEPHANIA SHAQ Wagner [place] SUPPLEMEN ARTEMIO MEDEX 2 Aug 11, 2014 [id number] ARCHOCTAVIOEA SHAQ Wagner [place] MEDICARE SUPPLEMEN [facility] [place] [facility] Aug 11, 2014 [id number] [phone] SHAQ WONG PATIENT USMANA [facility] (WNR) MEDICARE ADVANTAGE HUMAN A INSUR [place] [facility] Jan 11, 2022 [id number] [phone] ARCHOCTAVIOEA SHAQ Wagner PATIENT USMANA MCR (WNR) MEDICARE ADVANTAGE [facility] (WNR) Jan 11, 2022 [id number] [phone] ARCHAMBEA SHAQ Wagner PATIENT MEDICARE (WNR) MEDICARE (M) PART A Dec 11, 2014 PART A [id number] [phone] ARCHAMBEA SHAQ Wagner PATIENT MEDICARE (WNR) MEDICARE (M) PART A Aug 11, 2014 PART A [id number] ARCHAMBEA SHAQ Wagner PATIENT MEDICARE (WNR) MEDICARE () PART B Aug 11, 2014 PART B [id number] ARCHAMBEA SHAQ Wagner PATIENT MEDICARE (WNR) MEDICARE () PART A Aug 11, 2014 PART A [id number] ARCHAMBEA Bernard,SHAQ PATIENT MEDICARE (WNR) MEDICARE () PART B Aug 11, 2014 PART B [id number] ARCHAMBEA U,SHAQ PATIENT MEDICARE (WNR) MEDICARE (M) PART A Aug 11, 2014 PART A [id number] ARCHAMBEA Bernard,SHAQ PATIENT MEDICARE (WNR) MEDICARE (M) PART B Aug 11, 2014 PART B [id number] ARCHAMBEA U,SHAQ PATIENT MEDICARE (WNR) MEDICARE (M) PART B Aug 11, 2014 PART B [id number] [phone] ARCHAMBEA SHAQ Wagner [facility] (WNR) MEDICARE ADVANTAGE [facility] (WNR) May 13, 2020 [id number] ARCHAMBEA SHAQ Wagner PATIENT Selected Encounter This section includes the information on record at [place] for the Encounter. Date/Time Encounter Type Encounter Description Reason Pro vider Source Mar 13, 2024 12:00 AM Outpatient Encounter EVENT (HISTORICAL) IHE [...] appointments. The data comes from all [facility]. Appointment Date/Time Appointment Type Appointme nt Facility Name Mar 16, 2024 08:30 AM AMBULATORY - MEDICINE [facility] NTR [facility] Apr 07, 2024 10:00 AM AMBULATORY - MEDICINE [facility] Apr 20, 2024 08:30 AM [facility] - [facility]ICINE [facility] Apr 28, 2024 11:00 AM AMBULATORY - MEDICINE [facility] Jun 22, 2024 08:30 AM [facility] Jul 10, 2024 09:00 AM AM[facility]ULATORY - MEDICINE [facility] Jul 22, 2024 08:00 AM [facility] Active, Pending, and Scheduled Orders This section includes a listing of several types of active, pending, and scheduled orders, including clinic medications orders, diagnostic test orders, procedure orders and consult orders; where the start date of the order is 45 days before the date of the Encounter or 45 days after the date of theEncounter. The data comes from all [facility]. Test Date/Time Test Type Test Details Facility Name Jan 29, 2024 06:05 PM Consult Order [facility]ITY [facility]-CARDIOLOGY Cons Vice President [employer] [facility] Mar 06, 2024 04:47 PM Consult Order COMMUNITY CARE-DENTAL GENERAL Cons [employer] President [employer] [facility] Apr 20, 2024 01:10 PM Consult Order COMMUNITY CARE-UROLOGY Cons Vice President [employer] [facility] Immunizations: All administered on the encounter date This section contains immunizations associated to the Encounter. Immunization Series Date Issued Reaction Comments INFLUENZA, UNSPECIFIED FORMULATION Mar 13, 2024 Social History: Smoking Status (Most current) and [...] 04, 2023 09:00 AM VA-TOBACCO FOR[facility] USER [facility] Tobacco Use History This section includes a history of the smoking, or tobacco-related health factors, that were collected on or before the date of the Encounter. The data comes from the [place] facility where the Encounter took place. Date/Time Smoking Status/Tobacco Use Comment F acdaniel Jul 04, 2023 09:00 AM VA-TOBACCO QUIT 15 YRS OR MORE [place] [facility] Mar 14, 2022 03:02 PM VA-TOBACCO FORMER USER [place] [facility] Mar 14, 2022 03:02 PM VA-TOBACCO QUIT 15 YRS OR MORE [place] [facility] Feb 08, 2021 09:00 AM VA-TOBACCO FORMER USER [place] [facility] Feb 08, 2021 09:00 AM VA-TOBACCO QUIT 15 YRS OR MORE [place] [facility] October 09, 2019 01:12 PM VA-TOBACCO FORMER USER [place] [facility] October 09, 2019 01:12 PM VA-TOBACCO QUIT 5 TO < 15 YRS [place] [facility] Advance Directives: All historical and current Section [...]
--- OUTSIDE RECORDS SUMMARY | 2024-04-28 11:10 | XMS_ITS | Encounter Summary ---
Author Name [facility] [place] Address [address] [place] [address] Care Team Providers Care Distillation Operator Helper Name Role Phone NEHEMIAH CUEVAS Primary [...] to Policy Orellana [facility] Aug 11, 2014 [id number] DHAVAL SHAQ Wagner [facility]IENT [facility] MEDIC[facility] SUPPLEMEN ARTEMIO [facility] Aug 11, 2014 [id number] DHAVAL SHAQ Wagner PATIENT [place] MED[place] SUPPLEMEN ARTEMIO MEDEX 2 Aug 11, 2014 [id number] DHAVAL SHAQ Wagner [place] SUPPLEMEN [facility]IO MEDEX 2 Aug 11, 2014 [id number] DHAVAL SHAQ Wagner PAT[place] SUPPLEMEN [facility] MEDEX 2 Aug 11, 2014 [id number] DHAVAL WagnerSHAQ PATIENT [place] MEDICARE SUPPLEMEN [facility] [place] Aug 11, 2014 [id number] [phone] SHAQ WONG PATIENT HUMANA [facility] (WNR) MEDICARE ADVANTAGE HUMAN A INSUR [place] Jan 11, 2022 [id number] [phone] ARCHOCTAVIOEA SHAQ Wagner PATIENT USMANA MCR (WNR) MEDICARE ADVANTAGE [facility] (WNR) Jan 11, 2022 [id number] [phone] ARCHAMBEA SHAQ Wagner PATIENT MEDICARE (WNR) MEDICARE () PART A Dec 11, 2014 PART A [id number] [phone] ARCHAMBEA Bernard,SHAQ PATIENT MEDICARE (WNR) MEDICARE () PART B Aug 11, 2014 PART B [id number] ARCHAMBEA SHAQ Wagner PATIENT MEDICARE (WNR) MEDICARE () PART B Aug 11, 2014 PART B [id number] [phone] ARCHAMBEA SHAQ Wagner PATIENT MEDICARE (WNR) MEDICARE () PART A Aug 11, 2014 PART A [id number] ARCHAMBEA SHAQ Wagner PATIENT MEDICARE (WNR) MEDICARE () PART B Aug 11, 2014 PART B [id number] ARCHAMBEA Bernard,SHAQ PATIENT MEDICARE (WNR) MEDICARE () PART A Aug 11, 2014 PART A [id number] ARCHAMBEA Bernard,SHAQ PATIENT MEDICARE (WNR) MEDICARE (M) PART B Aug 11, 2014 PART B [id number] ARCHAMBEA Bernard,SHAQ PATIENT MEDICARE (WNR) MEDICARE () PART A Aug 11, 2014 PART A [id number] ARCHOCTAVIOEA SHAQ Wagner [facility] (WNR) MEDICARE ADVANTAGE [facility] (WNR) May 13, 2020 [id number] ARCHAMBEA SHAQ Wagner PATIENT Selected Encounter This section includes the information on record at [place] for the Encounter. Date/Time Encounter Type Encounter Description Reason Provider Source Dec 23, 2023 03:15 PM PULM FUNCTION TEST BY GAS PULMONARY FUNCTION ICD-10-CM R06.09 Other forms of dyspnea SIMON MOSQUEDA MD [facility] Encounter Template Text not used by [place] Assessments - Encounter Diagnoses This section includes the primary and secondary diagnoses documented for the Encounter. Date/Time Primary/Secondary Diagnosis Diagnosis Name Provider Source Dec 25, 2023 10:18 AM PRIMARY Other forms of dyspnea SIMON MOSQUEDA MD [facility] Plan of Treatment: Future Appointments (+ 6 months) and Future Tests (+/- 45 days) The Plan of Treatment section includes future care activities for the patient from all [place] [facility]. This section includes future appointments and future [...] - MEDICINE [place] [facility] Jan 30, 2024 07:30 AM AMBULATORY - MEDICINE [place] C [place] [facility] Mar 06, 2024 08:45 AM AMBULATORY - MEDICINE [place] C [place] [facility] Mar 11, 2024 08:30 AM AMBULATORY - MEDICINE [facility] Mar 16, 2024 08:30 AM AMBULATORY - MEDICINE [place] C [place] [facility] Apr 07, 2024 10:00 AM AMBULATORY - MEDICINE [place] C [place] [facility] Apr 20, 2024 08:30 AM AMBULATORY - MEDICINE [facility] Apr 28, 2024 11:00 AM AMBULATORY - MEDICINE [place] C [place] [facility] Jun 22, 2024 08:30 AM AMBULATORY - NONE [place] [facility] Active, Pending, and Scheduled Orders This [...] data comes from all [place] treatment facilities. Test Date/Time Test Type Test Details Facility Name Jan 29, 2024 06:05 PM Consult Order [facility]-CARDIOLOGY Cons Caustic Strength Inspector's Choice [facility] Lab Results: +/- 30 days of the encounter This section includes the Chemistry and Hematology Lab Results on record with [place] for the patient. Radiology Reports and Pathology Reports are provided separately, in subsequent sections. Lab Results This section contains the Chemistry/Hematology Results that were resulted 30 days before or 30 daysafter the date of the Encounter. Date/Time Source Result Type Result - Unit Interpretation Reference Range Comment Dec 30, 2023 08:44 AM [facility] [place] MAGNESIUM Specimen Type: SERUM No comment entered. Ordering Provider: NEHEMIAH BOWERS Report Released Date/Time: Jul 04, 2023 09:50 AM Reporting [facility]: [facility] [address] Performing Lab: [facility] [address] [address] MAGNESIUM 1.9 mg/dL 1.6-2.6 Dec 30, 2023 08:44 AM [facility] TSH Specimen Type: SERUM No comment entered. Ordering Provider: NEHEMIAH BOWERS Report Released Date/Time: Jul 04, 2023 09:50 AM Reporting Lab: [facility] [address] Performing Lab: [facility] [address] [address] TSH 0.57 u[IU]/mL 0.35-5.00 Dec 30, 2023 08:44 AM [facility] PSA Specimen Type: SERUM No comment entered. Ordering Provider: NEHEMIAH BOWERS Report Released Date/Time: Jul 04, 2023 09:50 AM Reporting Lab: [facility] [address] Performing Lab: [facility] [address] [address] PSA 0.26 ng/mL 0.00-4.00 Dec 30, 2023 08:44 AM [facility] HEMOGLOBIN A1C PANEL Specimen Type: BLOOD Comment: [...] Jul 04, 2023 09:50 AM Reporting Lab: [facility] [address] [address] Performing Lab: [address] [address] HEMOGLOBIN A1C 4.9 4.0-5.6 Dec 30, 2023 08:44 AM [facility] [place] BASIC METABOLIC PANEL (fasting) Specime n Type: SERUM No comment entered. Ordering Provider: NEHEMIAH BOWERS Report Released Date/Time: Jul 04, 2023 09:50 AM Reporting Lab: [facility] [address] [address] Performing Lab: [facility] [address] [address] UREA NITROGEN 13 mg/dL 7-25 GLUCOSE 100 mg/dL 65-100 SODIUM 136 mmol/L 135-145 POTASSIUM 4.5 mmol/L 3.5-5.0 CHLORIDE 102 mmol/L 100-110 CO2 26 meq/L 20-30 CREATININE, Serum 0.96 mg/dL 0.50-1.40 eGFR(CKD-EPI 2020) 83 mL/min >60 Dec 30, 2023 08:44 AM [facility] LIVER FUNCTION Specimen Type: SERUM No comment entered. Ordering Provider: NEHEMIAH BOWERS Report Released Date/Time: Jul 04, 2023 09:50 AM Reporting Lab: [facility] [address] [address] Performing Lab: [address] [address] PROTEIN,TOTAL 6.4 g/dL 6.0-8.3 ALBUMIN 4.0 g/dL 3.5-5.0 ALKALINE PHOSPHATASE 64 U/L 40-150 AST 17 U/L 5-34 ALT 19 U/L BILIRUBIN, TOTAL 0.5 mg/dL 0.2-1.2 Dec 30, 2023 08:44 AM [facility] LIPID PANEL FASTING Specimen Type: SERUM No comment entered. Ordering Provider: NEHEMIAH BOWERS Report Released Date/Time: Jul 04, 2023 09:50 AM Reporting Lab: [facility] [address] [facility] [address] Performing Lab: [address] [address] CHOLESTEROL 159 mg/dL TRIGLYCERIDE 76 mg/dL 0-150 LDL calculated 66 mg/dL 0-129 CHOL/HDL 2.0 HDL CHOLESTEROL 78 mg/dL H 40-60 Dec 30, 2023 08:44 AM [facility] CBC AND DIFF (AUTO) Specimen Type: BLOOD No comment entered. Ordering Provider: NEHEMIAH BOWERS Report Released Date/Time: Jul 04, 2023 09:50 AM Reporting Lab: [facility] [address] [facility] [address] Performing Lab: [address] [address] WBC 6.84 10*3/uL 4.50-11.00 RBC 4.52 10*6/uL [...] 0.0 0.0-0.0 NRBC, ABS 0.00 10*3/uL 0.00-0.00 Advance Directives: All historical and current Section [...] Feb 21, 2021 ADVANCE DIRECTIVE [facility] Encounter Notes: All associated encounter notes This section contains the clinical notes associated to the Encounter. Date/Time Encounter Note(s) Provider Source Dec 25, 2023 10:18 AM PULMONARY DIAGNOST IC STUDY REPORT: LOCAL TITLE: CONSULT /DALE PFT STANDARD TITLE: PULMONARY DIAGNOSTIC STUDY REPORT DATE OF NOTE: DEC 25, 2023@10:18 ENTRY DATE: DEC 25, 2023@10:18:15 AUTHOR: SIMON MOSQUEDA MD EXP COSIGNER: URGENCY: STATUS: COMPLETED Pulmonary Function Test interpretation report completed. See [facility] CPRS for report. /es/ SIMON MOSQUEDA MD PULMONARY/CRITICAL CARE SECTION Signed: 12/25/2023 10:19 SIMON MOSQUEDA MD [facility]
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
--- NOTE | 2024-04-28 11:21 | A.OFFVIS_ITS ---
Intake Visit Reasons: cysto(Inpatient Follow Up) Intake Note: Patient is present for Cystoscopy Urology Medication:NONE Antibiotic Allergy:NONE Blood Thinner:NONE Lot:[id number] Exp:03/16/27 Public Health Service Officer Required: No Allergies Codeine Sulfate Adverse Reaction (Unknown, Uncoded 04/28/24 11:23) vomiting [facility] Medical History (Updated 04/28/24 @ 12:23 by Jeronimo Gaspar MD) Radiation cystitis COVID Bladder mass Atrial fibrillation with rapid ventricular response Prostate cancer Paroxysmal atrial flutter Atrial flutter with rapid ventricular response Restless leg syndrome Elevated cholesterol Upper GI bleed Barretts esophagus C. difficile colitis Ileus Abdominal pain Diarrhea Nausea & vomiting Lung nodule < 6cm on CT Small bowel obstruction Diaphragm injury Pelvis fracture Liver laceration Sciatica Surgical History History of prostate biopsy History of total left knee replacement (TKR) Hx of exploratory laparotomy History of exploratory laparotomy History of esophagogastroduodenoscopy (EGD) Hx of colonoscopy H/O ankle fusion H/O knee surgery Family History Mother Colon cancer Sister Pancreatic cancer Social History Household Members: Spouse Housing: House Are you a primary healthcare specialist to a significant other at home: No Do you presently have visiting nurse or other home services: No Alcohol intake: current Alcohol intake frequency: a few times a month Alcohol type: beer 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 Tobacco Use Status: Former Tobacco user Tobacco use type: Cigarette Cigarette Packs Per Day: 1 Second Hand Smoke Exposure: No Substance Use Type: Marijuana Advance Directives Date on File: 11/22/20 service: Yes Current occupational status: disabled Results AMB Urinalysis, Automated UA Leukoctes 0 Raul/uL Last Edit by SEAN Caraballo on 04/28/24 11:49 UA Nitrite Negative Last Edit by SEAN Caraballo on 04/28/24 11:49 UA Urobilinogen 0.2 mg/dL Last Edit by SEAN Caraballo on 04/28/24 11:4 9 UA Protein 15 mg/dL Last Edit by SEAN Caraballo on 04/28/24 11:49 UA pH 6.0 Last Edit by SEAN Caraballo on 04/28/24 11:49 UA Blood 0 Vega/uL Last Edit by SEAN Caraballo on 04/28/24 11:49 UA Specific [place] 1.015 Last Edit by SEAN Caraballo on 04/28/24 11: 49 UA Ketone Positive Last Edit by SEAN Caraballo on 04/28/24 11:49 UA Bilirubin 1 mg/dL Last Edit by SEAN Caraballo on 04/28/24 11:49 UA Glucose 0 mg/dL Last Edit by SEAN Caraballo on 04/28/24 11:49 Results Reviewed Results Reviewed: Laboratory Last Values Urine pH (Auto) 6.0 04/28/24 11:48 Specific [place] (Auto) 1.015 04/28/24 11:48 Urine Protein (Auto) 15 mg/dL 04/28/24 11:48 Glucose (UA)(Auto) 0 mg/dL 04/28/24 11:48 Urine Ketones (Auto) Positive 04/28/24 11:48 Urine Blood (Auto) 0 Vega/uL 04/28/24 11:48 Urine Nitrite (Auto) Negative 04/28/24 11:48 Urine Bilirubin (Auto) 1 mg/dL 04/28/24 11:48 Urine Urobilinogen (Auto) 0.2 mg/dL 04/28/24 11:48 Leukocyte Esterase (Auto) 0 Raul/uL 04/28/24 11:48 Assessment & Plan Assessment & Plan (1) Radiation cystitis: Code(s): 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
== END 2024-04-28 12:28 | disposition home or self-care (01) ==
PROVIDERS: PCP Internal Medicine; Visit Provider Urology
DX: Z13.9 Encounter for screening, unspecified (principal)

== ENCOUNTER 2024-05-28 10:57 | Outpatient (AMB) | payer OTHER, SELFPAY ==
--- NOTE | 2024-05-28 11:10 | A.OFFVIS_ITS ---
Vital Signs 05/28/24 11:11 Height 5 ft 8 in Weight 134 lb 7.712 oz BMI 20.4 BP 124/72 Blood Pressure Location Lt brachial Position Sitting Pulse 58 Intake Visit Reasons: f/u [facility] [place] Intake Note: Follow-up [facility] [place] for bleed with ekg today feeling better [employer] Required: No Province Archivist: Province Archivist Present Accompanied by: Spouse Allergies Codeine Sulfate Adverse Reaction (Unknown, Uncoded 04/28/24 11:23) vomiting Medication List - Last Reconciled 05/28/24 by Franky Segura MD amiodarone 200 mg PO DAILY aspirin (Adult Aspirin Regimen) 81 mg PO DAILY atorvastatin 80 mg PO DAILY food supplemt, lactose-reduced 1 ea PO DAILY latanoprost 0.005% 1 drp ophthalmic (eye) BEDTIME lidocaine 5% 1 patch topical DAILY PRN naloxone 4 mg/actuation 4 mg intranasal Q3M PRN omeprazole 40 mg PO DAILY@0630 ondansetron 4 mg PO DAILY PRN oxycodone-acetaminophen 5-325 mg (Percocet) 1 tab PO TID PRN ropinirole 0.25 mg PO BEDTIME HPI Comments Details: Clifford comes for follow-up, accompanied by his . This is 1st visit since his hospitalization March for acute bladder bleeding NSTEMI at that time he had recurrent atrial fibrillation. He was started on amiodarone therapy. Urology recommended no anticoagulation for him for ever. He has not had any major bleeding on aspirin. He has not had any neurologic events. Has not had any apparent atrial fibrillation episodes. Denies any heart failure episodes. Says walks every day denies any exertional chest pain. During hospitalization he also had significantly elevated troponins consistent with NSTEMI. Has not had any ischemic workup. [facility] Medical History Prostate cancer Radiation cystitis COVID Bladder mass Atrial fibrillation with rapid ventricular response Paroxysmal atrial flutter Atrial flutter with rapid ventricular response Restless leg syndrome Elevated cholesterol Upper GI bleed Barretts esophagus C. difficile colitis Ileus Abdominal pain Diarrhea Nausea & vomiting Lung nodule < 6cm on CT Small bowel obstruction Diaphragm injury Pelvis fracture Liver laceration Sciatica Surgical History History of prostate biopsy History of total left knee replacement (TKR) Hx of exploratory laparotomy History of exploratory laparotomy History of esophagogastroduodenoscopy (EGD) Hx of colonoscopy H/O ankle fusion H/O knee surgery Family History Mother Colon cancer Sister Pancreatic cancer Social History Household Members: Spouse Housing: House Are you a primary care director to a significant other at home: No Do you presently have visiting nurse or other home services: No Alcohol intake: current Alcohol intake frequency: a few times a month Alcohol type: beer 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 Tobacco Use Status: Former Tobacco user Tobacco use type: Cigarette Cigarette Packs Per Day: 1 Second Hand Smoke Exposure: No Substance Use Type: Marijuana Advance Directives Date on File: 11/22/20 service: Yes Current occupational status: disabled Review of Systems Const Denies chills, Denies fatigue, Denies fever(s), Denies frequent falls, Denies weakness, Denies weight gain and Denies weight loss ENT Denies dizziness Card Denies chest pain, Denies leg edema, Denies lightheadedness, Denies palpitations, Denies dyspnea, Denies dyspnea on exertion, Denies orthopnea and Denies other (loss of consciousness) Resp Denies cough, Denies dyspnea and Denies dyspnea on exertion GI Denies hematochezia and Denies change in stool character Musc Denies abnormal gait, Denies muscle weakness, Denies numbness, Denies radiating pain into limb and Denies tingling Neuro Denies abnormal gait, Denies dizziness, Denies frequent falls, Denies numbness, Denies tingling and Denies weakness Endo Denies fatigue and Denies palpitations Physical Exam Vital Signs: Last Vital Signs Pulse 58 05/28/24 11:11 BP 124/72 05/28/24 11:11 BMI result Body Mass Index 20.4 Const General: cooperative, comfortable, no acute distress, alert, awake and P hysically active Nutritional Appearance: thin Orientation/consciousness: patient oriented x3 Limitations: no limitations Neck Neck: Yes trachea midline, Yes supple and Yes no JVD Resp Effort & Inspection: normal respiratory effort Auscultation: clear to auscultation bilaterally and diminished lung sounds Cardio Jugular venous distension: no JVD Palpation: normal PMI Rate: regular rate Rhythm: regular rhythm Heart sounds: S1 normal heart sound present, S2 normal heart sound present, no click, no gallops, no murmurs and no rubs GI Auscultation: normal bowel sounds Skin General skin exam: no rashes or lesions noted Neuro General: patient oriented x3 and no focal motor deficits Extrem General: Yes no clubbing, cyanosis or edema Psych Appearance: grossly normal Office Procedures EKG Details: EKG shows sinus bradycardia with PACs otherwise normal EKG [id number], Complete Assessment & Plan Assessment & Plan (1) Paroxysmal atrial flutter: Code(s): I48.92 - Unspecified atrial flutter Category: Medical Plan: Paroxysmal atrial flutter, suppressed on amiodarone therapy. No clinical recurrence since then. Urology has recommended no anticoagulation for him due to his high chance of recurrent hematuria. We discussed that if he was to undergo Watchman device he will need short term oral anticoagulation along with dual antiplatelet therapy for at least 6 months. He will think about it. I have provided him with literature. His CHADS-VASc score is only 1 at current time with his age unless he has underlying significant coronary artery disease which she will elevate his risk. For now pursue aspirin therapy. Continue rhythm control approach. (2) Subsequent non-ST elevation (NSTEMI) myocardial infarction: Code(s): I22.2 - Subsequent non-ST elevation (NSTEMI) myocardial infarction Category: Medical Plan: NSTEMI in the setting of acute bleeding as well as atrial fibrillation could be secondary although underlying significant coronary artery disease highly likely. He had myocardial perfusion imaging in August which appeared normal. I would suggest a coronary CTA to further evaluate for significant coronary artery disease which may change prognosis. Be scheduled in near future. Continue high-intensity statin therapy. Continue blood pressure control. Continue low- dose aspirin therapy. Follow up in the clinic in 3 months time, sooner p.r.n.. Thank you for allowing me to partake in his care Coding Level of Care Code Est Pt Level 4 (45868) Complex EM visit Add On G2211 Diagnoses Paroxysmal atrial flutter I48.92 Subsequent non-ST elevation (NSTEMI) myocardial infarction I22.2 CPT Codes EKG - CPT: 66528-[id number], Complete ([id number])
[2024-05-28 11:11] VITALS: BP 124/72; PULSE 58; BMI 20.4
--- OUTSIDE RECORDS SUMMARY | 2024-05-28 13:42 | XMS_ITS | Continuity of Care Document ---
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 It does not include entries that were removed or entered in error. Problem Status Onset Date Problem Type Date of Resolution Comments Source AF - Atrial fibrillation Active Condition Jul 04, 2023 Entered By: NEHEMIAH LORD Comment: Dx 06/2023 Afib w/RVR [place] Estes's esophagus Active Condition Mar 04, 2015 [...] no dysplasia - repeat in 5 y [place] Care by local physician Active Condition Mar 04, 2015 Entered By: VENKATA GONZALEZ Comment: Dr Lewis at [facility]; Dr. Maher @ [facility] Degeneration of intervertebral disc Active Condition Mar 04, 2015 Entered By: VENKATA GONZALEZ Comment: TKR, L Knee early ; Candidate for TK, R Side in FutureMar 04, 2015 Entered By: VENKATA GONZALEZ Comment: MMT of R Knee as wellJan 2018 Entered By: OMER REYES Comment: cervical spondylosis, DDD imaging 03/29 C3-C7Jan 2018 Entered By: OMER REYES Comment: diffuse DDD throughout L/S 03/29 [place] History of tobacco use Active Condition Mar 04, 2015 Entered By: VENKATA GONZALEZ Comment: Quit 2007;Mar 04, 2015 Entered By: VENKATA GONZALEZ Comment: H/O Pneumothorax, L Lung ; Had Thoracostomy, etc.Mar 04, 2015 Entered By: VENKATA GONZALEZ Comment: Nodule, LLL, in FEB 24?? pending PET; METS vs. ScarSep 2017 Entered By: OMER REYES Comment: neg AAA screening 2017 [place] Hyperlipidemia Active Condition 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 to Prolonged post Pseudoarthosis Pain [place] Long-term current use of anticoagulant Active Condition [facility] ([facility]) Lumbosacral spondylosis with radiculopathy Active Condition [facility] Prostate cancer Active Condition Mar 04, 2015 Entered By: VENKATA GONZALEZ Comment: Dx via Bx JUL 25 ([place]); 9 Sections [place]; 3 BenignMar 04, 2015 Entered By: VENKATA GONZALEZ Comment: Finished RT early FEB 24; f/u w/ URO MAR 27 in [place] 25, 2016 Entered By: OMER REYES Comment: see note 07/25/16- all notes sent to scan [place] Restless legs Active Condition Feb Entered By: VENKATA GONZALEZ Comment: on Ropinirole in FEB 24 [place] Screening for malignant neoplasm colon Active Condition [...] Colon/EGD Apr 2021 - Q 5 Years [place] Shared care - hospice and GP Active Condition Mar 08, 2015 Entered By: OMER REYES Comment: PCP: Dr. Maher [facility] [place] [facility] Shoulder joint pain Active Condition Mar 04, 2015 Entered By: VENKATA GONZALEZ Comment: Candidate for Replacement, R Side; Deferred; just do Inj'sOct 2014 Entered By: VENKATA GONZALEZ Comment: OA, L Shldr also (less pain than R side) [place] Solitary nodule of lung Active Condition Dec 17, 2016 Entered By: OMER REYES Comment: Ct scan 09/26Jun 2022 Entered By: NEHEMIAH LORD [facility] Entered By: NEHEMIAH LORD Comment: last CT chest 10/2021 stable subcentimeter nodules [facility] [place] [facility] Unintentional weight loss Active Condition Nov 09, 2022 Entered By: NEHEMIAH LORD Comment: after [facility] Diagnosis: ICD-10-CM I21.4 Non-ST elevation (NSTEMI) myocardial infarction Active Diagnosis [place] Diagnosis: ICD-10-CM L60.0 Ingrowing nail Active Diagnosis [facility] Diagnosis: ICD-10-CM M13.872 Other specified arthritis, left ankle and foot Active Diagnosis [facility] [place] [facility] Diagnosis: ICD-10-CM R06.09 Other forms of dyspnea Active Diagnosis [facility] Diagnosis: ICD-10-CM R06.00 Dyspnea, unspecified Active Diagnosis [facility] [place] [facility] Diagnosis: ICD-10-CM Z46.0 Encounter for fit/adjst of spectacles and contact lenses Active Diagnosis [facility] Diagnosis: ICD-10-CM H40.1111 Primary open-angle glaucoma, right eye, mild stage Active Diagnosis [facility] [place] [facility] Diagnosis: ICD-10-CM I48.91 Unspecified atrial fibrillation Active Diagnosis [place] Diagnosis: ICD-10-CM M46.1 Sacroiliitis, not elsewhere classified Active Diagnosis [facility] [place] Diagnosis: ICD-10-CM M54.17 Radiculopathy, lumbosacral region Active Diagnosis [facility] Diagnosis: ICD-10-CM R63.4 Abnormal weight loss Active Diagnosis [place] Diagnosis: ICD-10-CM 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 Active Diagnosis [facility] (6[facility]) Diagnosis: ICD-10-CM I48.20 Chronic atrial fibrillation, unspecified Active Diagnosis [facility] ([facility]) Diagnosis: ICD-10-CM M20.41 Other hammer toe(s) (acquired), right foot Active Diagnosis [place] Diagnosis: ICD-10-CM M54.16 Radiculopathy, lumbar region Active Diagnosis [facility] [place] [facility] Diagnosis: ICD-10-CM Z71.3 Dietary counseling and surveillance Active Diagnosis [place] Medications Combined list of outpatient medications from Department of Defense and [facility] Affairs facilities.Medications provided include 1) outpatient medications from the last 15 months, and 2) patient-reported medications. Medication Details Route Status Patient Instructions Prescription Expires Prescription Number Last Dispense Date Ordering Provider Order Date Order Qty Source ACETAMINOPH EN 500MG TAB TAKE TWO TABLETS BY MOUTH THREE TIMES DAILY NEEDED ORAL ACTIVE [place]HUA KOO [place] [address] [facility] IELD AMIODARONE HCL 200MG TAB TAKE ONE TABLET BY MOUTH ONCE DAILY ORAL ACTIVE 04/29/2025 [id number] RUBY INMAN 2023 [facility] AMIODARONE HCL 200MG TAB TAKE ONE TABLET BY MOUTH ONCE DAILY ORAL ACTIVE NEHEMIAH CISSE M [address] [facility] IELD APIXABAN 5MG TAB TAKE ONE TABLET BY MOUTH EVERY 12 HOURS ORAL DISCONT INUED BY PROVIDE R 06/20/2024 [id number] ORVILLE RADER M 2023 180 [facility] ASPIRIN 81MG TAB,EC TAKE ONE TABLET BY MOUTH ONCE DAILY ORAL ACTIVE NADAZDIN- BOSKOVIC, OGNJENKA M 2023 [place] ATORVASTATI N CA 80MG TAB TAKE ONE TABLET BY MOUTH ONCE DAILY FOR HIGH CHOLESTE ROL ORAL ACTIVE 04/21/2025 [id number] 4 NEHEMIAH CISSE 2023 90 [place] DRONEDARONE 400MG TAB TAKE ONE TABLET BY MOUTH TWICE DAILY ORAL DISCONT INUED BY PROVIDE R 09/17/2024 [id number] 4 [place] 2023 180 [facility] DRONEDARONE 400MG TAB TAKE ONE TABLET BY MOUTH TWICE DAILY FOR PAROXYSM AL ATRIAL FIBRILLA TION ORAL 09/16/2023 [id number] 4 [place] 2023 180 [place] [facility] ENSURE PLUS LIQUID [place]AN[place]A DRINK 1 CAN BY MOUTH TWICE DAILY FOR NUTRITIO NAL SUPPLEME NTATION ORAL ACTIVE 05/10/2025 [id number] 4 NEHEMIAH CISSE 2023 48 [place] ENSURE PLUS LIQUID [place] DRINK 1 CAN BY MOUTH TWICE DAILY ORAL DISCONT INUED 04/29/2024 [id number] NEHEMIAH CISSE 2022 48 [place] ENSURE PLUS LIQUID [place] DRINK 1 CAN BY MOUTH TWICE DAILY ORAL DISCONT INUED 03/28/2023 [id number] NEHEMIAH CISSE 2021 48 [place] FERROUS SO4 325MG TAB TAKE ONE TABLET BY MOUTH ONCE DAILY TO SUPPLEME NT IRON TO SUPPLEME NT IRON ORAL ACTIVE 04/27/2025 [id number] 4 NEHEMIAH CISSE 2023 100 [place] LATANOPROST 0.005% SOLN,OPH INSTILL 1 DROP INTO EACH EYE AT BEDTIME FOR WIDE-ANG LE GLAUCOMA OPHTHA LMIC ACTIVE 08/12/2024 [id number] 5 VERONICA MARKS EY J 2023 7.5 [facility] LATANOPROST 0.005% SOLN,OPH INSTILL 1 DROP INTO EACH EYE AT BEDTIME FOR WIDE-ANG LE GLAUCOMA OPHTHA LMIC DISCONT INUED 09/05/2023 [id number] SELINA,LAC EY J 2022 10 [facility] LIDOCAINE 5% PATCH APPLY 1 PATCH TOPICALL Y ONCE DAILY FOR NERVE PAIN (LEAVE PATCH ON FOR 12 HOURS, THEN REMOVE PATCH) TOPICA L ACTIVE 04/21/2025 [id number] 4 NEHEMIAH CISSE M 2023 30 [place] LIDOCAINE 5% PATCH APPLY 1 PATCH TOPICALL Y ONCE DAILY FOR NERVE PAIN (LEAVE PATCH ON FOR 12 HOURS, THEN REMOVE PATCH) TOPICA L DISCONT INUED 10/11/2024 [id number] 4 NEHEMIAH CISSE 2023 30 [place] LIDOCAINE 5% PATCH APPLY 1 PATCH TOPICALL Y ONCE DAILY FOR NERVE PAIN (LEAVE PATCH ON FOR 12 HOURS, THEN REMOVE PATCH) TOPICA L DISCONT INUED 09/04/2023 [id number] NEHEMIAH CISSE 2022 30 [place] LOVASTATIN 20MG TAB TAKE ONE TABLET BY MOUTH AT BEDTIME FOR CHOLESTE ROL -- AVOID GRAPEFRU IT JUICE ORAL DISCONT INUED BY PROVIDE R 10/11/2024 [id number] 4 NEHEMIAH CISSE 2023 90 [place] LOVASTATIN 20MG TAB TAKE ONE TABLET BY MOUTH AT BEDTIME FOR CHOLESTE ROL -- AVOID GRAPEFRU IT JUICE ORAL DISCONT INUED 10/10/2023 [id number] NEHEMIAH CISSE 2022 90 [place] METOPROLOL TARTRATE 25MG TAB TAKE ONE TABLET BY MOUTH TWICE DAILY FOR BLOOD PRESSURE /HEART ORAL ACTIVE 04/29/2025 [id number] RUBY INMAN AV 2023 180 [facility] METOPROLOL TARTRATE 25MG TAB TAKE ONE-HALF TABLET BY MOUTH TWICE DAILY FOR BLOOD PRESSURE /HEART ORAL DISCONT INUED BY PROVIDE R 10/08/2024 [id number] 4 NEHEMIAH CISSE M 2023 90 [place] METOPROLOL TARTRATE 25MG TAB TAKE ONE TABLET BY MOUTH TWICE DAILY FOR BLOOD PRESSURE /HEART ORAL 09/16/2023 [id number] ORVILLE RADER M 2023 180 [facility]ON METOPROLOL TARTRATE 25MG TAB TAKE ONE TABLET BY MOUTH TWICE DAILY ORAL ACTIVE NEHEMIAH CISSE M 2023 [place] NALOXONE HCL 4MG/SPRAY SOLN,SPRAY, NASAL INSTILL 1 SPRAY ONE NOSTRIL ONE TIME NEEDED FOR OPIOID OVERDOSE CALL 911 WITH ADMINIST RATION. REPEAT WITH SECOND DEVICE IF SYMPTOMS RETURN NASAL 04/20/2024 [id number] 4 Alphonso CARDONA AVID A 2023 2 [place] OMEPRAZOLE 20MG CAP,EC TAKE TWO CAPSULES BY MOUTH EVERY MORNING 30 MINUTES BEFORE BREAKFAS T ORAL ACTIVE 10/11/2024 [id number] 4 NEHEMIAH CISSE M 2023 180 [place] OMEPRAZOLE 20MG CAP,EC TAKE TWO CAPSULES BY MOUTH EVERY MORNING 30 MINUTES BEFORE BREAKFAS T ORAL DISCONT INUED 09/22/2023 [id number] 4 Alphonso CARDONAD A 2022 180 [place] ONDANSETRON HCL 4MG TAB TAKE ONE TABLET BY MOUTH ONCE DAILY NEEDED FOR VOMITING /NAUSEA ORAL 03/29/2024 [id number] 4 NEHEMIAH CISSE M 2022 90 [place] OXYCODONE HCL 5MG/ACETAMI NOPHEN 325MG TAB TAKE 1 TABLET BY MOUTH THREE TIMES DAILY NEEDED FOR PAIN [NEXT FILL DATE ] ORAL ACTIVE 06/08/2024 [id number] NEHEMIAH CISSE 2023 84 [place] OXYCODONE HCL 5MG/ACETAMI NOPHEN 325MG TAB TAKE 1 TABLET BY MOUTH THREE TIMES DAILY NEEDED FOR PAIN [NEXT FILL DATE 05/15/24] ORAL DISCONT INUED 05/13/2024 [id number] NEHEMIAH CISSE 2023 84 [place] OXYCODONE HCL 5MG/ACETAMI NOPHEN 325MG TAB TAKE 1 TABLET BY MOUTH THREE TIMES DAILY NEEDED FOR PAIN [NEXT FILL DATE 04/17/24] ORAL DISCONT INUED 04/19/2024 [id number] NEHEMIAH CISSE 2023 84 [place] OXYCODONE HCL 5MG/ACETAMI NOPHEN 325MG TAB TAKE 1 TABLET BY MOUTH THREE TIMES DAILY NEEDED FOR PAIN NEXT FILL 02/19/24* * ORAL DISCONT INUED 02/20/2024 [id number] Alhponso CARDONA 2023 84 [place] OXYCODONE HCL 5MG/ACETAMI NOPHEN 325MG TAB TAKE 1 TABLET BY MOUTH THREE TIMES DAILY NEEDED FOR PAIN NEXT FILL 01/22/24* * ORAL DISCONT INUED 01/21/2024 [id number] Alphonso CARDONA 2023 84 [place] OXYCODONE HCL 5MG/ACETAMI NOPHEN 325MG TAB TAKE 1 TABLET BY MOUTH THREE TIMES DAILY NEEDED FOR PAIN NEXT FILL 09/27/23* * ORAL DISCONT INUED 09/26/2023 [id number] NEHEMIAH CISSE 2023 84 [place] OXYCODONE HCL 5MG/ACETAMI NOPHEN 325MG TAB TAKE 1 TABLET BY MOUTH THREE TIMES DAILY NEEDED FOR PAIN NEXT FILL 08/30/23* * ORAL DISCONT INUED 08/28/2023 [id number] NEHEMIAH CISSE 2023 84 [place] OXYCODONE HCL 5MG/ACETAMI NOPHEN 325MG TAB TAKE 1 TABLET BY MOUTH THREE TIMES DAILY NEEDED FOR PAIN (NEXT FILL 06/07/23) ORAL DISCONT INUED 06/26/2023 [id number] NEHEMIAH CISSE 2023 30 [place] OXYCODONE HCL 5MG/ACETAMI NOPHEN 325MG TAB TAKE 1 TABLET BY MOUTH THREE TIMES DAILY NEEDED FOR PAIN (NEXT FILL 06/07/23) ORAL DISCONT INUED 06/06/2023 [id number] TYRONE GONZALEZ 2022 54 [place] OXYCODONE HCL 5MG/ACETAMI NOPHEN 325MG TAB TAKE 1 TABLET BY MOUTH THREE TIMES DAILY NEEDED FOR PAIN (NEXT FILL 05/10/23 ) ORAL DISCONT INUED 05/10/2023 [id number] NEHEMIAH CISSE 2022 54 [place] OXYCODONE HCL 5MG/ACETAMI NOPHEN 325MG TAB TAKE 1 TABLET BY MOUTH THREE TIMES A DAY FOR PAIN ORAL DISCONT INUED 05/02/2023 [id number] NEHEMIAH CISSE 2022 54 [place] OXYCODONE HCL 5MG/ACETAMI NOPHEN 325MG TAB TAKE 1 TABLET BY MOUTH THREE TIMES A DAY FOR PAIN ORAL DISCONT INUED 04/07/2023 [id number] NEHEMIAH CISSE 2022 84 [place] OXYCODONE HCL 5MG/ACETAMI NOPHEN 325MG TAB TAKE 1 TABLET BY MOUTH THREE TIMES DAILY NEEDED FOR PAIN NEXT FILL 03/18/24* * ORAL 03/19/2024 [id number] Alphonso CARDONA 2023 84 [place] OXYCODONE HCL 5MG/ACETAMI NOPHEN 325MG TAB TAKE 1 TABLET BY MOUTH THREE TIMES DAILY NEEDED NEXT FILL 12/23/23* * ORAL 12/22/2023 [id number] NEHEMIAH CISSE 2023 84 [facility] OXYCODONE HCL 5MG/ACETAMI NOPHEN 325MG TAB TAKE 1 TABLET BY MOUTH THREE TIMES DAILY NEEDED NEXT FILL 11/25/23* * ORAL 11/22/2023 [id number] NEHEMIAH CISSE 2023 84 [place] OXYCODONE HCL 5MG/ACETAMI NOPHEN 325MG TAB TAKE 1 TABLET BY MOUTH THREE TIMES DAILY NEEDED FOR PAIN NEXT FILL 10/25/23* * ORAL 10/25/2023 [id number] NEHEMIAH CISSE 2023 84 [place] OXYCODONE HCL 5MG/ACETAMI NOPHEN 325MG TAB TAKE 1 TABLET BY MOUTH THREE TIMES DAILY NEEDED FOR PAIN NEXT FILL 08/02/23* * ORAL 07/30/2023 [id number] NEHEMIAH CISSE M 2023 84 [place] OXYCODONE HCL 5MG/ACETAMI NOPHEN 325MG TAB TAKE 1 TABLET BY MOUTH THREE TIMES DAILY NEEDED FOR PAIN (NEXT FILL 07/05/23 ) ORAL 06/28/2023 [id number] NEHEMIAH CISSE M 2023 84 [facility] RIVAROXABAN 20MG TAB TAKE ONE TABLET BY MOUTH ONCE DAILY - TAKE WITH FOOD ORAL DISCONT INUED 09/16/2023 [id number] ORVILLE RADER 2023 90 [place] ROPINIROLE HCL 0.25MG TAB TAKE ONE TABLET BY MOUTH DAILY ORAL ACTIVE 12/08/2024 [id number] NEHEMIAH CISSE 2023 90 [place] ROPINIROLE HCL 0.25MG TAB TAKE ONE TABLET BY MOUTH DAILY ORAL DISCONT INUED 11/09/2023 [id number] NEHEMIAH CISSE [address] [facility] IELD ZINC OXIDE 16% PASTE,TOP APPLY SUFFICIE NT AMOUNT TOPICALL Y ONCE DAILY FOR SKIN IRRITATI ON TOPICA L ACTIVE 04/21/2025 [id number] 4 NEHEMIAH CISSE [address] [facility] IELD Allergies, Adverse Reactions, Alerts Combined list of allergies from Department of Defense and Veterans Affairs facilities. It does not include entries that were removed or entered in error. Substance Category Reaction Severity Reaction type Status Date Reported Comments Source CODEINE Propensity to adverse reactions to drug (finding) Low blood pressure active 5 [facility] NEURONTIN Propensity to adverse reactions to drug (finding) Depressive disorder active 8 [facility] Immunizations Combined list of available immunizations from the Department of Defense and Veterans Affairs facilities. Immunization Series Date Given Administered By Site Reaction Lot Number CVX Code Drug Guide Plant Status Comments Source INFLUENZA, UNSPECIFIED FORMULATION 2023 88 complet ed [facility] INFLUENZA, UNSPECIFIED FORMULATION 2022 88 complet ed [facility] [place] INFLUENZA VACCINE, QUADRIVALENT, ADJUVANTED 2021 205 complet ed [facility] [place] [facility] ZOSTER RECOMBINANT 2 2021 187 complet ed [facility] [place] [facility] INFLUENZA VACCINE, QUADRIVALENT, ADJUVANTED [address] [facility] IELD ZOSTER RECOMBINANT [address] [facility] IELD COVID-19 (PFIZER), MRNA, LNP-S, PF, 30 MCG/0.3 ML DOSE 2 2020 208 complet ed [facility] COVID-19 (PFIZER), MRNA, LNP-S, PF, 30 MCG/0.3 ML DOSE 1 2020 208 complet ed [facility] COVID-19 (PFIZER), MRNA, LNP-S, PF, 30 MCG/0.3 ML DOSE 2 2019 208 complet ed [facility] INFLUENZA, SEASONAL, INJECTABLE 2018 141 complet ed [facility] Fluzone high dose , [employer] Lot [id number], , Left Deltoid [facility] PNEUMOCOCCAL CONJUGATE PCV 13 2018 133 complet ed Pfizer lot [id number] exp Right Deltoid [facility] INFLUENZA, SEASONAL, INJECTABLE 2017 141 complet ed [facility] [place] INFLUENZA, SEASONAL, INJECTABLE 2017 141 complet ed [facility] [place] INFLUENZA, SEASONAL, INJECTABLE 2016 141 complet ed [facility] INFLUENZA, SEASONAL, INJECTABLE 2016 141 complet ed Site: Left Deltoid [facility] PNEUMOCOCCAL POLYSACCHARID E PPV23 2016 33 complet ed [place] FLU,3 YRS (HISTORICAL) 2015 88 complet ed [place] [facility] [place] PNEUMOCOCCAL CONJUGATE PCV 13 2014 133 complet ed [place] ZOSTER (HISTORICAL) 2014 121 complet ed [place] DTAP, UNSPECIFIED FORMULATION 2014 107 complet ed [facility] [place] [facility] FLU,3 YRS (HISTORICAL) 2014 88 complet ed outside [facility] [place] FLU,3 YRS (HISTORICAL) 2014 88 complet ed [facility] Results Combined list of recent chemistry, hematology and other laboratory results from Department of Defense and Veterans Affairs, ranging from 15 months to all on record, depending upon the facility. Order Name Results Value Reference Range Date Interpretation Specimen Comments Source HEMOGLOBI N A1C PANEL HEMOGLOBIN A1C/HEMOGLO BIN.TOTAL [...] Apr 15, 2024 02:47 PM Reporting Lab: [address] [address] Performing Lab: [address] [address] [facility] [place] LIPID PANEL FASTING CHOLESTEROL [MASS/VOLUM E] IN SERUM OR PLASMA 118 mg/dL 04/20 Specimen Type: SERUM No comment entered. Ordering Provider: JOSE REIS Report Released Date/Time: Apr 15, 2024 02:47 PM Reporting Lab: [address] [address] Performing Lab: [address] [address] [facility] [place] LIPID PANEL FASTING TRIGLYCERID E [MASS/VOLUM E] IN SERUM OR PLASMA 58 mg/dL 0 - 150 04/20 Specimen Type: SERUM No comment entered. Ordering Provider: JOSE REIS Report Released Date/Time: Apr 15, 2024 02:47 PM Reporting Lab: [address] [address] Performing Lab: [address] [address] [facility] eTelemetry LIPID PANEL FASTING CHOLESTEROL IN LDL [MASS/VOLUM E] IN SERUM OR PLASMA BY CALCULATION 55 mg/dL 0 - 129 04/20 Specimen Type: SERUM No comment entered. Ordering Provider: JOSE REIS Report Released Date/Time: Apr 15, 2024 02:47 PM Reporting Lab: [address] [address] Performing Lab: [address] [address] [place] LIPID PANEL FASTING CHOLESTEROL .TOTAL/CHOL ESTEROL IN HDL [MASS RATIO] IN SERUM OR PLASMA 2.3 04/20 Specimen Type: SERUM No comment entered. Ordering Provider: JOSE REIS Report Released Date/Time: Apr 15, 2024 02:47 PM Reporting Lab: [address] [address] Performing Lab: [address] [address] [place] LIPID PANEL FASTING CHOLESTEROL IN HDL [MASS/VOLUM E] IN SERUM OR PLASMA 51 mg/dL 40 - 60 04/20 Specimen Type: SERUM No comment entered. Ordering Provider: JOSE REIS Report Released Date/Time: Apr 15, 2024 02:47 PM Reporting Lab: [address] [address] Performing Lab: [address] [address] [facility] [place] BASIC METABOLIC PANEL (fasting) UREA NITROGEN [MASS/VOLUM E] IN SERUM OR PLASMA 13 mg/dL 7 - 25 04/20 Specimen Type: SERUM No comment entered. Ordering Provider: JOSE REIS Report Released Date/Time: Apr 15, 2024 02:47 PM Reporting Lab: [address] [address] Performing Lab: [address] [address] [facility] [place] BASIC METABOLIC PANEL (fasting) GLUCOSE [MASS/VOLUM E] IN SERUM OR PLASMA 105 mg/dL 65 - 100 04/20 H Specimen Type: SERUM No comment entered. Ordering Provider: JOSE REISKA M Report Released Date/Time: Apr 15, 2024 02:47 PM Reporting Lab: [facility] [address] [address] Performing Lab: [facility] [address] [address] [place] BASIC METABOLIC PANEL (fasting) SODIUM [MOLES/VOLU ME] IN SERUM OR PLASMA 136 mmol/L 135 - 145 04/20 Specimen Type: SERUM No comment entered. Ordering Provider: JOSE REIS Report Released Date/Time: Apr 15, 2024 02:47 PM Reporting Lab: [facility] [address] Performing Lab: [facility] [address] [place] BASIC METABOLIC PANEL (fasting) POTASSIUM [MOLES/VOLU ME] IN SERUM OR PLASMA 4.9 mmol/L 3.5 - 5.0 04/20 Specimen Type: SERUM No comment entered. Ordering Provider: JOSE REIS Report Released Date/Time: Apr 15, 2024 02:47 PM Reporting Lab: [facility] [address] [address] Performing Lab: [facility] [address] [address] [place] BASIC METABOLIC PANEL (fasting) CHLORIDE [MOLES/VOLU ME] IN SERUM OR PLASMA 101 mmol/L 100 - 110 04/20 Specimen Type: SERUM No comment entered. Ordering Provider: JOSE REIS Report Released Date/Time: Apr 15, 2024 02:47 PM Reporting Lab: [facility] [address] [address] Performing Lab: [facility] [address] [address] [place] BASIC METABOLIC PANEL (fasting) CARBON DIOXIDE, TOTAL [MOLES/VOLU ME] IN SERUM OR PLASMA 25 meq/L 20 - 30 04/20 Specimen Type: SERUM No comment entered. Ordering Provider: JOSE REIS Report Released Date/Time: Apr 15, 2024 02:47 PM Reporting Lab: [facility] [address] [address] Performing Lab: [address] [address] [place] BASIC METABOLIC PANEL (fasting) CREATININE [MASS/VOLUM E] IN SERUM OR PLASMA 1.04 mg/dL 0.50 - 1.40 04/20 Specimen Type: SERUM No comment entered. Ordering Provider: JOSE REIS Report Released Date/Time: Apr 15, 2024 02:47 PM Reporting Lab: [facility] [address] [address] Performing Lab: [facility] [address] [address] [place] BASIC METABOLIC PANEL (fasting) GLOMERULAR FILTRATION RATE/1.73 SQ M.PREDICTED [VOLUME RATE/AREA] IN SERUM, PLASMA OR BLOOD BY CREATININE- BASED FORMULA (CKD-EPI 2020) 75 mL/min 60 04/20 Specimen Type: SERUM No comment entered. Ordering Provider: JOSE REIS Report Released Date/Time: Apr 15, 2024 02:47 PM Reporting Lab: [facility] [address] [address] Performing Lab: [facility] [address] [place] TSH THYROTROPIN [UNITS/VOLU ME] IN SERUM OR PLASMA 2.13 u[IU]/ mL 0.35 - 5.00 04/20 Specimen Type: SERUM No comment entered. Ordering Provider: JOSE REIS Report Released Date/Time: Apr 15, 2024 02:47 PM Reporting Lab: [facility] [address] [address] Performing Lab: [facility] [address] [facility] [address] [place] LIVER FUNCTION PROTEIN [MASS/VOLUM E] IN SERUM OR PLASMA 6.6 g/dL 6.0 - 8.3 04/20 Specimen Type: SERUM No comment entered. Ordering Provider: JOSE REIS Report Released Date/Time: Apr 15, 2024 02:47 PM Reporting Lab: [facility]PITALRLAWRENCE [facility]ICAL CENTERN [facility]ENTERUSE[facility] [address] [facility] [address] Performing Lab: [facility]OSPITALRLAWRENCE MEDICAL CENTERN [facility] CENTERUSE[address] [address] [place] LIVER FUNCTION ALBUMIN [MASS/VOLUM E] IN SERUM OR PLASMA 3.8 g/dL 3.5 - 5.0 04/20 Specimen Type: SERUM No comment entered. Ordering Provider: JOSE REIS Report Released Date/Time: Apr 15, 2024 02:47 PM Reporting Lab: [facility]PITALRLAWRENCE MEDICAL CENTERN [facility] CENTERUSE[address] [address] Performing Lab: [facility] [address] [address] [place] L[place] FUNCTION ALKALINE PHOSPHATASE [ENZYMATIC ACTIVITY/VO LUME] IN SERUM OR PLASMA 111 U/L 40 - 150 04/20 Specimen Type: SERUM No comment entered. Ordering Provider: JOSE REIS Report Released Date/Time: Apr 15, 2024 02:47 PM Reporting Lab: [facility]PITALRLAWRENCE MEDICAL CENTERN [facility] CENTERUSE[address] [address] Performing Lab: [facility] [address] [address] [place] LIVER FUNCTION ASPARTATE AMINOTRANSF ERASE [ENZYMATIC ACTIVITY/VO LUME] IN SERUM OR PLASMA 18 U/L 5 - 34 04/20 Specimen Type: SERUM No comment entered. Ordering Provider: JOSE REIS Report Released Date/Time: Apr 15, 2024 02:47 PM Reporting Lab: [facility] HOSPITALRL [address] [address] Performing Lab: [facility] HOSPITALRL TRN [facility]ENTERUSE[address] [address] [place] LIVER FUNCTION ALANINE AMINOTRANSF ERASE [ENZYMATIC ACTIVITY/VO LUME] IN SERUM OR PLASMA 34 U/L 04/20 Specimen Type: SERUM No comment entered. Ordering Provider: JOSE REIS Report Released Date/Time: Apr 15, 2024 02:47 PM Reporting Lab: [facility] HOSPITALRL W[facility]N [address] [address] Performing Lab: [facility] [address] [address] [place] LIVER FUNCTION BILIRUBIN.T OTAL [MASS/VOLUM E] IN SERUM OR PLASMA 0.3 mg/dL 0.2 - 1.2 04/20 Specimen Type: SERUM No comment entered. Ordering Provider: JOSE REIS Report Released Date/Time: Apr 15, 2024 02:47 PM Reporting Lab: [facility]OSPITALRL [facility]N [address] [address] Performing Lab: [facility]PITALRL [facility]N [address] [address] [place] CBC AND DIFF (AUTO) LEUKOCYTES [#/VOLUME] IN BLOOD BY AUTOMATED COUNT 9.20 10*3/u L 4.50 - 11.00 04/20 Specimen Type: BLOOD No comment entered. Ordering Provider: JOSE REIS Report Released Date/Time: Apr 15, 2024 02:47 PM Reporting Lab: [facility]PITALRL [facility]N [address] [address] Performing Lab: [facility]OSPITALRL [facility]N [address] [address] [place] CBC AND DIFF (AUTO) ERYTHROCYTE S [#/VOLUME] IN BLOOD BY AUTOMATED COUNT 3.75 10*6/u L 4.23 - 5.66 04/20 L Specimen Type: BLOOD No comment entered. Ordering Provider: JSOE REIS Report Released Date/Time: Apr 15, 2024 02:47 PM Reporting Lab: [facility] HOSPITALRL WSTRN [facility] CENTERUSETS [facility] [address] [address] Performing Lab: [facility] CENTERUSETS [address] [address] [place] CBC AND DIFF (AUTO) HEMOGLOBIN [MASS/VOLUM E] IN BLOOD 10.7 g/dL 12.8 - 17 04/20 L Specimen Type: BLOOD No comment entered. Ordering Provider: JOSE REIS Report Released Date/Time: Apr 15, 2024 02:47 PM Reporting Lab: [facility]OSPITALRL TRN [facility] CENTERUSE[address] [address] Performing Lab: [facility]OSPITALRL TRN [facility] CENTERUSE[address] [address] [place] CBC AND DIFF (AUTO) HEMATOCRIT [VOLUME FRACTION] OF BLOOD BY AUTOMATED COUNT 32.5 39.2 - 50.4 04/20 L Specimen Type: BLOOD No comment entered. Ordering Provider: JOSE REIS Report Released Date/Time: Apr 15, 2024 02:47 PM Reporting Lab: [facility]OSPITALRL WSTRN [facility] CENTERUSETS [address] [address] Performing Lab: [facility]OSPITALRL TRN [facility] CENTERUSETS [address] [address] [place] CBC AND DIFF (AUTO) MCV [ENTITIC VOLUME] BY AUTOMATED COUNT 86.7 fL 82 - 99 04/20 Specimen Type: BLOOD No comment entered. Ordering Provider: JOSE REIS Report Released Date/Time: Apr 15, 2024 02:47 PM Reporting Lab: [facility]OSPITALRL [place] [address] [address] Performing Lab: [facility] CENTERUSETS [address] [address] [place] CBC AND DIFF (AUTO) MCHC [MASS/VOLUM E] BY AUTOMATED COUNT 32.9 g/dL 30.8 - 35.1 04/20 Specimen Type: BLOOD No comment entered. Ordering Provider: JOSE REIS Report Released Date/Time: Apr 15, 2024 02:47 PM Reporting Lab: [facility] [place] [facility] [address] [address] Performing Lab: [facility] [place] [address] [address] [place] CBC AND DIFF (AUTO) PLATELETS [#/VOLUME] IN BLOOD BY AUTOMATED COUNT 622 10*3/u L 140 - 360 04/20 H Specimen Type: BLOOD No comment entered. Ordering Provider: JOSE REIS Report Released Date/Time: Apr 15, 2024 02:47 PM Reporting Lab: [facility] [place] [address] [address] Performing Lab: [facility] [place] [address] [address] [place] CBC AND DIFF (AUTO) ERYTHROCYTE DISTRIBUTIO N WIDTH [RATIO] BY AUTOMATED COUNT 12.3 12.0 - 16.0 04/20 Specimen Type: BLOOD No comment entered. Ordering Provider: JOSE REIS Report Released Date/Time: Apr 15, 2024 02:47 PM Reporting Lab: [facility] [place] [address] [address] Performing Lab: [facility] [place] [address] [address] [place] CBC AND DIFF (AUTO) MONOCYTES [#/VOLUME] IN BLOOD BY AUTOMATED COUNT 0.71 10*3/u L 0.30 - 1.10 04/20 Specimen Type: BLOOD No comment entered. Ordering Provider: JOSE REIS Report Released Date/Time: Apr 15, 2024 02:47 PM Reporting Lab: [facility] [place] [address] [address] Performing Lab: [facility] [place] [address] [address] [place] CBC AND DIFF (AUTO) MCH [ENTITIC MASS] BY AUTOMATED COUNT 28.5 pg 26.2 - 32.6 04/20 Specimen Type: BLOOD No comment entered. Ordering Provider: JOSE REIS Report Released Date/Time: Apr 15, 2024 02:47 PM Reporting Lab: [facility] [place] [address] [address] Performing Lab: [facility] [place] [place] [address] [address] [place] CBC AND DIFF (AUTO) NEUTROPHILS /100 LEUKOCYTES IN BLOOD BY AUTOMATED COUNT 72.7 43.7 - 75.8 04/20 Specimen Type: BLOOD No comment entered. Ordering Provider: JOSE REIS Report Released Date/Time: Apr 15, 2024 02:47 PM Reporting Lab: [facility] [place] [address] [address] Performing Lab: [facility] [place] [address] [address] [place] CBC AND DIFF (AUTO) LYMPHOCYTES /100 LEUKOCYTES IN BLOOD BY AUTOMATED COUNT 9.6 14.0 - 42.3 04/20 L Specimen Type: BLOOD No comment entered. Ordering Provider: JOSE REIS Report Released Date/Time: Apr 15, 2024 02:47 PM Reporting Lab: [facility] [place] [address] [address] Performing Lab: [facility] [place] [address] [address] [place] CBC AND DIFF (AUTO) MONOCYTES/1 00 LEUKOCYTES IN BLOOD BY AUTOMATED COUNT 7.7 5.1 - 13.7 04/20 Specimen Type: BLOOD No comment entered. Ordering Provider: JOSE REIS Report Released Date/Time: Apr 15, 2024 02:47 PM Reporting Lab: [facility] [place] [address] [address] Performing Lab: [facility]ENTERUSE[address] [address] [place] CBC AND DIFF (AUTO) EOSINOPHILS /100 LEUKOCYTES IN BLOOD BY AUTOMATED COUNT 9.1 0.4 - 6.8 04/20 H Specimen Type: BLOOD No comment entered. Ordering Provider: JOSE REIS Report Released Date/Time: Apr 15, 2024 02:47 PM Reporting Lab: [facility]OSPITALRLAWRENCE MEDICAL CENTERN [facility] CENTERUSE[address] [address] Performing Lab: [facility]OSPITALRLAWRENCE MEDICAL CENTERN [facility] CENTERUSE[address] [address] [place] CBC AND DIFF (AUTO) BASOPHILS/1 00 LEUKOCYTES IN BLOOD BY AUTOMATED COUNT 0.4 0.1 - 2.0 04/20 Specimen Type: BLOOD No comment entered. Ordering Provider: JOSE REIS Report Released Date/Time: Apr 15, 2024 02:47 PM Reporting Lab: [facility]OSPITALRLAWRENCE MEDICAL CENTERN [facility] CENTERUSE[address] [address] Performing Lab: [facility] [address] [address] [place] CBC AND DIFF (AUTO) NEUTROPHILS [#/VOLUME] IN BLOOD BY AUTOMATED COUNT 6.68 10*3/u L 2.20 - 7.60 04/20 Specimen Type: BLOOD No comment entered. Ordering Provider: JOSE REIS Report Released Date/Time: Apr 15, 2024 02:47 PM Reporting Lab: [facility] HOSPITALRFLOWERS HOSPITALTRN [facility] CENTERUSE[address] [address] Performing Lab: [facility]ERN [address] [address] [place] CBC AND DIFF (AUTO) LYMPHOCYTES [#/VOLUME] IN BLOOD BY AUTOMATED COUNT 0.88 10*3/u L 1.00 - 3.20 04/20 L Specimen Type: BLOOD No comment entered. Ordering Provider: JOSE REIS Report Released Date/Time: Apr 15, 2024 02:47 PM Reporting Lab: [facility] [place] [place] [facility] [address] [address] Performing Lab: [facility] [place] [address] [address] [place] CBC AND DIFF (AUTO) EOSINOPHILS [#/VOLUME] IN BLOOD BY AUTOMATED COUNT 0.84 10*3/u L 0.03 - 0.44 04/20 H Specimen Type: BLOOD No comment entered. Ordering Provider: JOSE REIS Report Released Date/Time: Apr 15, 2024 02:47 PM Reporting Lab: [facility]ENTERUSETS [address] [address] Performing Lab: [facility]ENTERUSETS [address] [address] [place] CBC AND DIFF (AUTO) BASOPHILS [#/VOLUME] IN BLOOD BY AUTOMATED COUNT 0.04 10*3/u L 0.01 - 0.13 04/20 Specimen Type: BLOOD No comment entered. Ordering Provider: JOSE REIS Report Released Date/Time: Apr 15, 2024 02:47 PM Reporting Lab: [facility]ENTERUSETS [address] [address] Performing Lab: [facility]ENTERUSETS [address] [address] [place] CBC AND DIFF (AUTO) IMMATURE GRANULOCYTE S/100 LEUKOCYTES IN BLOOD BY AUTOMATED COUNT 0.5 0.0 - 0.7 04/20 Specimen Type: BLOOD No comment entered. Ordering Provider: JOSE REIS Report Released Date/Time: Apr 15, 2024 02:47 PM Reporting Lab: [facility] [address] [address] Performing Lab: [facility] [address] [address] [place] CBC AND DIFF (AUTO) IMMATURE GRANULOCYTE S [#/VOLUME] IN BLOOD 0.05 10*3/u L 0.00 - 0.06 04/20 Specimen Type: BLOOD No comment entered. Ordering Provider: JOSE REIS Report Released Date/Time: Apr 15, 2024 02:47 PM Reporting Lab: [facility]OSPITALRLAWRENCE MEDICAL CENTERN [address] [address] Performing Lab: [facility] [address] [address] [place] CBC AND DIFF (AUTO) NRBC % 0.0 0.0 - 0.0 04/20 Specimen Type: BLOOD No comment entered. Ordering Provider: JOSE REIS Report Released Date/Time: Apr 15, 2024 02:47 PM Reporting Lab: [facility] HOSPITALR[address] [address] Performing Lab: [address] [address] [place] CBC AND DIFF (AUTO) NRBC, ABS 0.00 10*3/u L 0.00 - 0.00 04/20 Specimen Type: BLOOD No comment entered. Ordering Provider: JOSE REIS Report Released Date/Time: Apr 15, 2024 02:47 PM Reporting Lab: [facility] HOSPITALR[address] [address] Performing Lab: [address] [address] [place] FERRITIN FERRITIN [MASS/VOLUM E] IN SERUM OR PLASMA 63 ng/mL 20 - 300 04/20 Specimen Type: SERUM No comment entered. Ordering Provider: JOSE REIS Report Released Date/Time: Apr 20, 2024 09:28 AM Reporting Lab: [facility]OSPITALRLAWRENCE MEDICAL CENTERN [address] [address] Performing Lab: [address] [address] [place] VITAMIN B12 COBALAMIN (VITAMIN B12) [MASS/VOLUM E] IN SERUM OR PLASMA 1032 pg/mL 200 - 900 04/20 H Specimen Type: SERUM No comment entered. Ordering Provider: JOSE REIS Report Released Date/Time: Apr 20, 2024 09:28 AM Reporting Lab: [facility] HOSPITALRL [place]N [place] [facility] [address] [address] Performing Lab: [facility] HOSPITALTRN [facility]ENTERUSETS [facility] [address] [address] [place] IRON & TIBC PANEL IRON BINDING CAPACITY [MASS/VOLUM E] IN SERUM OR PLASMA 360 ug/dL 204 - 475 04/20 Specimen Type: SERUM No comment entered. Ordering Provider: JOSE REIS Report Released Date/Time: Apr 20, 2024 09:28 AM Reporting Lab: [facility]OSPITALRLAWRENCE MEDICAL CENTERN [facility] CENTERUSE[address] [address] Performing Lab: [facility] HOSPITALTRN [facility] CENTERUSETS [address] [address] [place] IRON & TIBC PANEL IRON [MASS/VOLUM E] IN SERUM OR PLASMA 25 ug/dL 40 - 160 04/20 L Specimen Type: SERUM No comment entered. Ordering Provider: JOSE REIS Report Released Date/Time: Apr 20, 2024 09:28 AM Reporting Lab: [facility] HOSPITALRFLOWERS HOSPITALTRN [facility] CENTERUSETS [address] [address] Performing Lab: [facility] HOSPITALRL TRN [facility] CENTERUSETS [address] [address] [place] IRON & TIBC PANEL IRON/IRON BINDING CAPACITY.TO ARTEMIO [MASS RATIO] IN SERUM OR PLASMA 6.9 20.0 - 50.0 04/20 L Specimen Type: SERUM No comment entered. Ordering Provider: JOSE REIS Report Released Date/Time: Apr 20, 2024 09:28 AM Reporting Lab: [facility] HOSPITALRFLOWERS HOSPITALTRN [facility] CENTERUSETS [address] [address] Performing Lab: [facility]OSPITALRFLOWERS HOSPITALTRN [facility] CENTERUSETS [address] [address] [place] IRON & TIBC PANEL TRANSFERRIN [MASS/VOLUM E] IN SERUM OR PLASMA 273 mg/dL 200 - 360 04/20 Specimen Type: SERUM No comment entered. Ordering Provider: JOSE REIS Report Released Date/Time: Apr 20, 2024 09:28 AM Reporting Lab: [facility] HOSPITALRL [facility]STRN [place] [facility] [address] [address] Performing Lab: [facility] [place] [facility] [address] [address] [facility] METHADONE SCREEN METHADONE [PRESENCE] IN URINE BY SCREEN METHOD None detect ed(Neg ative) 01/23 L Specimen Type: URINE Comment: THIAGO test are qualitative , any L or H flags only indicate a [facility] alert was sent. Ordering Provider: JOSE REIS Report Released Date/Time: Jan 22, 2024 11:28 AM Reporting Lab: [facility] [place] [facility] [address] [address] Performing Lab: [facility] [place] [facility] [address] [facility] [address] [facility] Vital Signs Combined list of inpatient and outpatient Vital Signs from Department of Defense and Veterans Affairs, ranging from 12 months to all on record, depending upon the facility. Vital Sign Value Date Comments Source SYSTOLIC BLOOD PRESSURE 149 04/20/20 08:53:25 [place] DIASTOLIC BLOOD PRESSURE 56 08:53:25 [facility] [place] PULSE OXIMETRY 99 04/20/2024 08:53:25 [place] WEIGHT 132.2 04/20/2024 08:53:25 [place] BMI 20kg/m2 04/20/2024 08:53:25 [place] TEMPERATURE 97.3 04/20/2024 08:53:25 [place] PULSE 48 04/20/2024 08:53:25 [place] SYSTOLIC BLOOD PRESSURE 120 01/30/20 24 07:31:46 [facility] [place] [place] [facility] DIASTOLIC BLOOD PRESSURE 70 024 07:31:46 [facility] [place] [facility] PAIN 7 01/30/2024 07:31:46 [facility] [place] [facility] SYSTOLIC BLOOD PRESSURE 135 10/08/19 24 11:04:13 [place] DIASTOLIC BLOOD PRESSURE 69 024 11:04:13 [place] [place] PULSE OXIMETRY 99 10/08/2023 11:04:13 [place] TEMPERATURE 97.8 10/08/2023 11:04:13 [place] PULSE 56 10/08/2023 11:04:13 [place] PULSE OXIMETRY 98 10/02/2023 08:01:39 [facility] [...] ADM Date DC Date Status Disposition Source [facility] OFFICE O/P EST LOW 20-29 MIN [id number] Diagnos is: ICD-10- CM L60.0 Ingrowi ng nail
WES CESAR ES F 12/05 [facility] En[facility] [id number] 12/07 [facility] [place] OFF[facility] O/P EST HI 40-54 MIN [id number] Diagnos is: ICD-10- CM M54.17 Radicul opathy, lumbosa cral region< br/> BERNABE PRIETO EDUARDO 12/12 [facility] [place] En[facility] [id number] 12/12 [facility] [place] [facility] MED NUTRITION INDIV SUBSEQ [id number] Diagnos is: ICD-10- CM Z71.3 Dietary family counselor ing and surveil jerrica<b r/> DANIELLE PARR 12/24 [place] [facility] En[facility] [id number] 01/07 [facility] [place] En[facility] [id number] 01/07 [facility] [place] [facility] [place] [facility] OFFICE O/P EST LOW 20-29 MIN [id number] Diagnos is: ICD-10- CM M54.16 Radicul opathy, lumbar region< br/> Alphonso COHEN 01/09 [facility] En[facility] [id number] 01/24 [facility] [place] En[facility] [id number] 01/28 [facility] [place] [facility] En[facility] [id number] 02/05 [facility] [place] [place] Outpatient Encounter [id number] 02/06 [place] [facility] En[facility] [id number] 02/06 [facility] [place] En[facility] [id number] 02/07 [facility] [place] En[facility] [id number] 02/10 [facility] [place] En[facility] [id number] 02/11 [facility] [place] En[facility] [id number] 02/19 [facility] [place] En[facility] [id number] 02/22 [facility] [place] En[facility] [id number] 02/28 [facility] [place] En[facility] [id number] 03/04 [facility] [place] En[facility] [id number] 03/06 [facility] [place] En[facility] [id number] 03/08 [facility] [place] En[facility] [id number] 03/11 [facility] [place] En[facility] [id number] 03/15 [facility] En[facility] [id number] 03/15 [facility] GAIT TRAINING THERAPY [id number] Diagnos is: ICD-10- CM M20.41 Other hammer toe(s) (acquir ed), right foot
MANDO BULLOCK 03/18 [facility] [place] GAIT TRAINING THERAPY [id number] Diagnos is: ICD-10- CM M20.41 Other hammer toe(s) (acquir ed), right foot
CLEOPATRA GAGE 03/19 [place] [facility] En[facility] [id number] 03/25 [facility] En[facility] [id number] 03/27 [facility] [place] En[facility] [id number] 04/01 [facility] [place] En[facility] [id number] 04/08 [facility] [place] En[facility] [id number] 04/10 [facility] [place] En[facility] [id number] 04/10 [facility] [place] En[facility] [id number] 04/29 [facility] [place] En[facility] [id number] 04/29 [facility] En[facility] [id number] 05/07 [facility] [place] En[facility] [id number] 05/10 [facility] [place] [facility] OFFICE O/P EST LOW 20 MIN [id number] Diagnos is: ICD-10- CM L60.0 Ingrowi ng nail
WES CESAR ES F 05/22 [place] [facility] Out[facility] Encounter [id number] 05/22 [facility] [id number] 05/24 [facility]counter [id number] 05/24 [facility]counter [id number] 05/28 [facility] Out[facility]counter [id number] 06/05 [facility]counter [id number] 06/15 [facility]counter [id number] 06/15 [facility] Out[facility] Encounter [id number] 06/17 [facility]counter [id number] 06/18 [facility] Out[facility] Encounter [id number] 06/18 [facility] (631GE) MTMS BY PHARM COPY COORDINATOR 15 MIN [id number] Diagnos is: ICD-10- CM I48.20 Chronic atrial fibrill ation, unspeci fied
RENEE,ALB ERT SHAQ 06/19 [facility] (531GE[facility] Outpatient Encounter [id number] 06/19 [facility] (631GE) MTMS BY PHARM COPY COORDINATOR 15 MIN [id number] Diagnos is: ICD-10- CM Z79.01 skilled nursing (curren t) use of anticoa gulants
RENEE,ALB ERT SHAQ 06/21 [facility] (631GE) [facility] MED NUTRITION INDIV SUBSEQ [id number] Diagnos is: ICD-10- CM R63.4 Abnorma l weight loss
DANIELLE PARR 06/24 [place] [facility] Out[facility] Encounter [id number] 06/29 [facility] Encounter [id number] 06/30 [facility] Out[facility] Encounter [id number] 07/03 [facility] Out[facility] Encounter [id number] 07/04 [facility] OFFICE O/P EST HI 40 MIN [id number] Diagnos is: ICD-10- CM I48.91 Unspeci fied atrial fibrill ation<b r/> JUAN QUINONEZ 07/04 [place] [facility] [facility] Outpatient Encounter [id number] 07/05 [facility] Outpatient Encounter [id number] 07/16 [facility] OFFICE O/P EST HI 40 MIN [id number] Diagnos is: ICD-10- CM M54.17 Radicul opathy, lumbosa cral region< br/> PRIETO,BERNABE OSEGUERAONG THI 07/16 [facility] Outpatient Encounter [id number] 07/16 [facility] (631GE) MTMS BY PHARM EST 15 MIN [id number] Diagnos is: ICD-10- CM I48.91 Unspeci fied atrial fibrill ation<b r/> CHUY ELKINS 07/22 [facility] (6[facility]GE) [facility] Outpatient Encounter [id number] 07/28 [facility] Outpatient Encounter [id number] 07/31 [facility] Outpatient Encounter [id number] 08/06 [facility] OFFICE O/P EST MOD 30 MIN [id number] Diagnos is: ICD-10- CM M46.1 Sacroil iitis, not elsewhe re classif ied<br/ > Alphonso COHEN 08/11 [facility] Outpatient Encounter [id number] 08/12 [facility] Outpatient Encounter [id number] 08/25 [facility] Outpatient Encounter [id number] 08/29 [facility] Outpatient Encounter [id number] 09/10 [facility] Outpatient Encounter [id number] 09/12 [facility] Outpatient Encounter [id number] 09/16 [facility] Outpatient Encounter [id number] 09/23 [facility] OFFICE O/[place] HI 40 MIN [id number] Diagnos is: ICD-10- CM M46.1 Sacroil iitis, not elsewhe re classif ied<br/ > PRIETO,BERNABE MAGALI THI 10/01 [facility] Outpatient Encounter [id number] 10/01 [facility] OFFICE O/P EST SF 10 MIN [id number] Diagnos is: ICD-10- CM I48.91 Unspeci fied atrial fibrill ation<b r/> KRYSTLE VEEOG ETIENNE Lomax 10/07 [place] [facility] Outpatient Encounter [id number] 10/10 [facility] Outpatient Encounter [id number] 10/20 [facility] OFFICE O/P EST MOD 30 MIN [id number] Diagnos is: ICD-10- CM L60.0 Ingrowi ng nail
WES CESAR F 10/22 [place] [facility] Out[facility] Encounter [id number] 10/28 [facility] Outpatient Encounter [id number] 10/28 [facility] COMPRE OPH EXAM EST PT 1/> [id number] Diagnos is: ICD-10- CM H40.111 1 Primary open-an gle glaucom a, right eye, mild stage<b r/> CINTHYA MARKS 11/18 [facility] FIT SPECTACLES MULTIFOCAL [id number] Diagnos is: ICD-10- CM Z46.0 Encount er for fit/adj st of spectac les and contact lenses< br/> CINTHYA MARKS 11/18 [facility] Outpatient Encounter [id number] 11/21 [facility] Outpatient Encounter [id number] 12/04 [facility] Outpatient Encounter [id number] 12/05 [facility] Outpatient Encounter [id number] 12/07 [facility] Outpatient Encounter [id number] 12/19 [facility] EVALUATION OF WHEEZING [id number] Diagnos is: ICD-10- CM R06.00 Dyspnea , unspeci fied
JARMOLOWIC Z,CASANDRA 12/22 [facility] CO/MEMBANE DIFFUSE CAPACITY [id number] Diagnos is: ICD-10- CM R06.00 Dyspnea , unspeci fied
Lillian MOSQUEDA MD 12/22 [facility] Outpatient Encounter [id number] 12/22 [facility] PULM FUNCTION TEST BY GAS [id number] Diagnos is: ICD-10- CM R06.09 Other forms of dyspnea
Lillian MOSQUDEA MD 12/22 [facility] Outpatient Encounter [id number] 12/29 [facility] Outpatient Encounter [id number] 1.01/05 [facility] Outpatient Encounter [id number] 01/13 [facility] Outpatient Encounter [id number]/19 [facility] Outpatient Encounter [id number] 01/21 [facility] Outpatient Encounter [id number] 01/22 [facility] Outpatient Encounter [id number] 01/27 [facility] OFFICE O/P EST MOD 30 MIN [id number] Diagnos is: ICD-10- CM M13.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
Alphonso COHEN 01/29 [facility] Outpatient Encounter [id number] 01/29 [facility] Outpatient Encounter [id number] 02/16 [facility] Outpatient Encounter [id number] 03/06 [facility] [place] OFFICE O/P EST LOW 20 MIN [id number] Diagnos is: ICD-10- CM L60.0 Ingrowi ng nail
WES CESAR F 03/11 [place] [facility] Outpatient Encounter [id number] 03/13 [facility] Outpatient Encounter [id number] 03/16 [facility] Outpatient Encounter [id number] 03/16 [facility] Outpatient Encounter [id number] 03/18 [facility] Outpatient Encounter [id number] 03/20 [facility] Outpatient Encounter [id number] 03/20 [facility] Outpatient Encounter [id number] 04/02 [facility] Outpatient Encounter [id number] 04/07 [facility] Outpatient Encounter [id number] 04/13 [facility] Outpatient Encounter [id number]/13 [facility] Outpatient Encounter [id number] 1.04/13 [facility] Outpatient Encounter [id number] 1.04/13 [facility] Outpatient Encounter [id number] 1.04/16 [facility] Outpatient Encounter [id number] 1.04/16 [facility] Outpatient Encounter [id number] 1.04/16 [facility] OFFICE O/[place] HI 40 MIN [id number] Diagnos is: ICD-10- CM I21.4 Non-ST elevati on (NSTEMI ) myocard ial infarct ion<br/ > JUAN QUINONEZ 04/20 [facility] [place] [facility] Outpatient Encounter [id number] 04/20 [facility] Outpatient Encounter [id number] 04/26 [facility] Outpatient Encounter [id number] 05/04 [facility] Outpatient Encounter [id number] 05/08 [facility] Outpatient Encounter [id number] 05/25 [facility] Social History Combined list of available smoking, tobacco, and other social history from Department of Defense and Veterans Affairs facilities. Social History Type Response Date Comment Sour e Tobacco smoking status MDIS VA-TOBACCO QUIT 15 YRS OR MORE 07/04/2023 [facility] History of tobacco use VA-TOBACCO FORMER USER 07/04/2023 [facility] History of tobacco use VA-TOBACCO FORMER USER 03[facility]14/2022 [facility] History of tobacco use VA-TOBACCO FORMER USER 02/08/2021 [facility] History of tobacco use VA-TOBACCO FORMER USER 10/09/2019 [facility] History of tobacco use VA-TOBACCO QUIT 15 YRS OR MORE 10/31/2018 [place] History of tobacco use QUIT TOBACCO USE > 7 YEARS AGO 07/12/2017 [place] History of tobacco use QUIT TOBACCO USE > 7 YEARS AGO 03/30/2016 [place] History of tobacco use QUIT TOBACCO USE > 7 YEARS AGO 03/04/2015 [place] Plan of Care List of future care activities from Department of Veterans Affairs facilities. Additional future care activities may be listed in the Assessment and Plan section. Date/Time Care Activity Care Activity Detail Facili ty 06/22/2024 AMBULATORY - NONE AMBULATORY - NONE [facility] 07[facility]03/2024 AMBULATORY - MEDICINE [facility]10/2024 AMBULATORY - MEDICINE AMBULATORY - MEDICI [facility] 07/22/2024 AMBULATORY - MEDICINE AMBULATORY - MEDICI [facility] 04/20/2024 Consult Order COMM[facility]ITY [facility]ARE-U ROLOGY Cons Sde's Choice [facility] [place] 05/12/2024 Consult Order COMMUNITY CARE-D ENTAL GENERAL Cons [facility]/27/[facility]24 Laboratory - Informal Waiter/Waitress ry Order CBC AND DIFF (AUTO) BLOOD (LAV-BLOOD) [facility] 06/27/2024 Laboratory - Informal Waiter/Waitress ry Order IRON and TIBC PANEL BLOOD (SST-SERUM) [facility] 06/27/2024 Laboratory - Informal Waiter/Waitress ry Order FERRITIN BLOOD (SST-SERUM) [facility] 06/27/2024 Laboratory - Informal Waiter/Waitress ry Order RETICULOCYTES BLOOD (LAV-BLOOD) [facility] Advance Directives List of completed, amended, or rescinded Advance Directives on record at Department of [facility] facilities. An actual copy of the Directive is not included. Date Advance Directive Provider Source 02/21/2021 ADVANCE DIRECTIVE BEL ESCALANTE
--- OUTSIDE RECORDS SUMMARY | 2024-05-28 13:44 | XMS_ITS | Encounter Summary ---
Author Name [facility] [place] [facility] [place] [facility] [place] Address [address] [place] [id number] Care Team Providers Care Cleaning Technician Name Role Phone NEHEMIAH CUEVAS Primary [...] Name Patient's Relationship to Policy Orellana ANA [facility] Aug 11, 2014 [id number] [phone] DHAVAL SHAQ Wagner PATIENT [facility] SUPPLEMEN ARTEMIO [facility] Aug 11, 2014 [id number] [phone] ARCHSTEPHANIA SHAQ Wagner [facility] SUPPLEMEN ARTEMIO MEDEX 2 Aug 11, 2014 [id number] DHAVAL SHAQ Wagner [facility] SUPPLEMEN ART[facility]IO MEDEX 2 Aug 11, 2014 [id number] [phone] ARCHAMBRENATA SHAQ Wagner PATIENT [place] SUPPLEMEN ARTEMIO MEDEX 2 Aug 11, 2014 [id number] [phone] ARCHAMBEA SHAQ Wagner PATIENT BCBS [facility] BLUECARD MEDICARE SUPPLEMEN ARTEMIO [facility] Aug 11, 2014 [id number] [phone] ARCHAMBEA SHAQ Wagner PATIENT [place] MEDICARE SUPPLEMEN ARTEMIO [facility] GF Aug 11, 2014 [id number] [phone] ARCHOCTAVIOEA SHAQ Wagner PATIENT HUMANA [facility] (WNR) MEDICARE ADVANTAGE HUMAN A INSUR [facility] Jan 11, 2022 [id number] [phone] ARCHAMBEA Bernard,SHAQ PATIENT [employer] [facility] (WNR) MEDICARE ADVANTAGE [facility] (R) Jan 11, 2022 [id number] [phone] ARCHAMBEA Bernard,SHAQ PATIENT MEDICARE (WNR) MEDICARE () PART A Dec 11, 2014 PART A [id number] ARCHAMBEA Bernard,SHAQ PATIENT MEDICARE (WNR) MEDICARE () PART A Aug 11, 2014 PART A [id number] ARCHAMBEA U,SHAQ PATIENT MEDICARE (WNR) MEDICARE () PART B Aug 11, 2014 PART B [id number] ARCHAMBEA U,SHAQ PATIENT MEDICARE (WNR) MEDICARE () PART A Aug 11, 2014 PART A [id number] ARCHAMBEA Bernard,SHAQ PATIENT MEDICARE (WNR) MEDICARE () PART B Aug 11, 2014 PART B [id number] ARCHAMBEA U,SHAQ PATIENT MEDICARE (WNR) MEDICARE () PART A Aug 11, 2014 PART A [id number] ARCHAMBEA U,SHAQ PATIENT MEDICARE (WNR) MEDICARE () PART B Aug 11, 2014 PART B [id number] ARCHAMBEA U,SHAQ PATIENT MEDICARE (WNR) MEDICARE () PART B Aug 11, 2014 PART B [id number] ARCHAMBEA Bernard,SHAQ PATIENT [employer] MCR (WNR) MEDICARE ADVANTAGE MCR (WNR) May 13, 2020 [id number] DHAVAL BernardSHAQ PATIENT Selected Encounter This section includes the information on record at [place] for the Encounter. Date/Time Encounter Type Encounter Description Reason Pro vider Source Jun 15, 2023 12:00 AM Outpatient Encounter EVENT (HISTORICAL) IHE Encounter Template Text not used by [place] Plan of Treatment: Future Appointments (+ 6 [...] 24, 2023 08:30 AM AMBULATORY - NONE [place] [facility] [place] [facility] Jul 04, 2023 09:00 AM AMBULATORY - MEDIC[facility] Jul 05, 2023 08:45 AM AM[place] [facility] [place] [facility] Jul 17, 2023 11:00 AM AMBULATORY - [facility]HAB [facility]ICIN [facility] Aug 12, 2023 07:30 AM AMBULATORY - REHAB MEDICIN [facility] [place] [facility] Aug 30, 2023 08:45 AM AM[place]UL[place] [facility] [place] [facility] October 02, 2023 08:00 AM AMBULATORY - REHAB MEDICIN [facility] [place] [facility] October 08, 2023 11:00 AM AMBULATORY [facility] October 09, 2023 08:30 AM AM[place] [facility] [place] [facility] Oct 23, 2023 08:30 AM AMBULATORY [facility] Nov 19, 2023 08:30 AM AM[place] [facility] [place] [facility] Nov 28, 2023 07:30 AM AMBULATORY - [place]IN [place] [facility] [place] [facility] Lab Results: +/- 30 days of the encounter This section includes the Chemistry and Hematology Lab Results on record with [place] for the patient. Radiology Reports and Pathology Reports are provided separately, in subsequent sections. Lab Results This section contains the Chemistry/Hematology Results that were resulted 30 days before or 30 daysafter the date of the Encounter. Date/Time Source Result Type Result - Unit Interpretation Reference Range Comment Jun 27, 2023 07:32 AM [place] LIPID PANEL FASTING Specimen Type: SERUM No comment entered. Ordering Provider: NEHEMIAH DAVIES Report Released Date/Time: Nov 09, 2022 12:33 PM Reporting Lab: [address] [address] Performing Lab: [address] [address] CHOLESTEROL 156 mg/dL TRIGLYCERIDE 83 mg/dL 0-150 LDL calculated 78 mg/dL 0-129 CHOL/HDL 2.6 HDL CHOLESTEROL 61 mg/dL H 40-60 Jun 27, 2023 07:32 AM [place] VITAMIN D (25-OH) Specimen Type: SERUM No comment entered. Ordering Provider: NEHEMIAH DAVIES Report Released Date/Time: Nov 09, 2022 12:33 PM Reporting Lab: [address] [address] Performing Lab: [address] [address] VITAMIN D (25-OH) 48 ng/mL 20-50 Jun 27, 2023 07:32 AM [place] LIVER FUNCTION Specimen Type: SERUM No comment entered. Ordering Provider: NEHEMIAH DAVIES Report Released Date/Time: Nov 09, 2022 12:33 PM Reporting Lab: [address] [address] Performing Lab: [address] [address] PROTEIN,TOTAL 6.7 g/dL 6.0-8.3 ALBUMIN 4.1 g/dL 3.5-5.0 ALKALINE PHOSPHATASE 66 U/L 40-150 AST 14 U/L 5-34 ALT 21 U/L BILIRUBIN, TOTAL 0.4 mg/dL 0.2-1.2 Jun 27, 2023 07:32 AM [place] BASIC METABOLIC PANEL (fasting) Specime n Type: SERUM No comment entered. Ordering Provider: NEHEMIAH DAVIES Report Released Date/Time: Nov 09, 2022 12:33 PM Reporting Lab: [address] [address] Performing Lab: [address] [address] UREA NITROGEN 18 mg/dL 7-25 GLUCOSE 96 mg/dL 65-100 SODIUM 141 mmol/L 135-145 POTASSIUM 4.8 mmol/L 3.5-5.0 CHLORIDE 106 mmol/L 100-110 CO2 28 meq/L 20-30 CREATININE, Serum 1.11 mg/dL 0.50-1.40 eGFR(CKD-EPI 2020) 70 mL/min >60 Jun 27, 2023 07:32 AM [place] VITAMIN B12 Specimen Type: SERUM No comment entered. Ordering Provider: NEHEMIAH DAVIES Report Released Date/Time: Nov 09, 2022 12:33 PM Reporting Lab: [address] [address] Performing Lab: [address] [address] VITAMIN B12 591 pg/mL 200-900 Jun 27, 2023 07:32 AM [place] MAGNESIUM Specimen Type: SERUM No comment entered. Ordering Provider: NEHEMIAH DAVIES Report Released Date/Time: Nov 09, 2022 12:33 PM Reporting Lab: [address] [address] Performing Lab: [address] [address] MAGNESIUM 2.1 mg/dL 1.6-2.6 Jun 27, 2023 07:32 AM [place] CBC AND DIFF (AUTO) Specimen Type: BLOOD No comment entered. Ordering Provider: NEHEMIAH DAVIES Report Released Date/Time: Nov 09, 2022 12:33 PM Reporting Lab: [facility] [address] [facility] [address] Performing Lab: [facility] [address] [facility] [address] WBC 8.96 10*3/uL 4.50-11.00 RBC 4.81 10*6/uL 4.23-5.66 HGB 14.0 g/dL 12.8-17 HCT 42.4 39.2-50.4 MCV 88.1 fL 82-99 MCHC 33.0 g/dL 30.8-35.1 PLT 312 10*3/uL 140-360 RDW-CV 12.3 12.0-16.0 Ford, Abs 0.59 10*3/uL 0.30-1.10 MCH 29.1 pg 26.2-32.6 Neut % 65.4 43.7-75.8 Lymph % 21.4 14.0-42.3 Ford % 6.6 5.1-13.7 Eos % 4.4 0.4-6.8 [...] 14, 2022 03:02 PM VA-TOBACCO FORMER USER [facility] Tobacco Use History This section includes a history of the smoking, or tobacco-related health factors, that were collected on or before the date of the Encounter. The data comes from the [place] facility where the Encounter took place. Date/Time Smoking Status/Tobacco Use Comment F acility Mar 14, 2022 03:02 PM VA-TOBACCO QUIT 15 YRS OR MORE [place] [facility] [place] [facility] Feb 08, 2021 09:00 AM [facility] [facility] [facility] Feb 08, 2021 09:00 AM [place]-TOBACCO QUIT 15 YRS OR MORE [place] [facility] October 09, 2019 01:12 PM VA-TOBACCO FORMER USER [place] [facility] [place] [facility] October 09, 2019 01:12 PM VA-TOBACCO QUIT 5 TO < 15 YRS [facility] Advance Directives: All historical and current [...] 2021 ADVANCE DIRECTIVE BEL ESCALANTE [facility] Encounter Notes: All associated encounter notes This section contains the clinical notes associated to the Encounter. Date/Time Encounter Note(s) Provider Source Jun 15, 2023 12:00 AM NONVA NOTE: LOCAL TITLE: NON-VA HOSPITALIZATIONS/ER STANDARD TITLE: NONVA NOTE DATE OF NOTE: JUN 15, 2023 ENTRY DATE: JUN 26, 2023@15:16:18 AUTHOR: LEÓN HAM EXP COSIGNER: URGENCY: STATUS: COMPLETED VistA Imaging - Scanned Document SCANNED DOCUMENT SIGNATURE NOT REQUIRED Electronically Filed: 06/26/2023 by: LEÓN HAM LICENSED PRACTICAL NURSE LEÓN HAM [facility]
--- OUTSIDE RECORDS SUMMARY | 2024-05-28 13:47 | XMS_ITS | Encounter Summary ---
Author Name [place] Address [address] [place] [address] Care Team Providers Care Powertrain Calibration Engineer Name Role Phone NEHEMIAH CUEVAS Primary [...] Patient's Relationship to Policy Orellana ANA [facility] Aug 11, 2014 [id number] DHAVAL SHAQ Wagner PATIENT ANA BCBS [facility] MEDICARE SUPPLEMEN ARTEMIO [facility] Aug 11, 2014 [id number] DHAVAL SHAQ Wagner PATIENT [facility] MEDICARE SUPPLEMEN ARTEMIO MEDEX 2 Aug 11, 2014 [id number] DHAVAL SHAQ [place] SUPPLEMEN ARTEMIO MEDEX 2 Aug 11, 2014 [id number] DHAVAL SHAQ Wagner [place] SUPPLEMEN ARTEMIO MEDEX 2 Aug 11, 2014 [id number] ARCHAMBEA SHAQ Wagner PATIENT BCBS OF [facility] BLUECARD MEDICARE SUPPLEMEN ARTEMIO [facility] Aug 11, 2014 [id number] ARCHAMBEA SHAQ Wagner PATIENT [place] MEDICARE SUPPLEMEN ARTEMIO [facility] Aug 11, 2014 [id number] ARCHAMBEA Bernard,SHAQ PATIENT HUMANA [facility] (WNR) MEDICARE ADVANTAGE HUMAN A INSUR ANCE [facility] Jan 11, 2022 [id number] ARCHAMBEA U,SHAQ PATIENT HUMANA [facility] (WNR) MEDICARE ADVANTAGE MCR (WNR) Jan 11, 2022 [id number] ARCHAMBEA U,SHAQ PATIENT MEDICARE (WNR) MEDICARE () PART A Dec 11, 2014 PART A [id number] ARCHAMBEA U,SHAQ PATIENT MEDICARE (WNR) MEDICARE () PART A Aug 11, 2014 PART A [id number] [phone] [id number] ARCHAMBEA U,SHAQ PATIENT MEDICARE (WNR) MEDICARE () PART B Aug 11, 2014 PART B [id number] ARCHAMBEA U,SHAQ PATIENT MEDICARE (WNR) MEDICARE () PART A Aug 11, 2014 PART A [id number] ARCHAMBEA U,SHAQ PATIENT MEDICARE (WNR) MEDICARE () PART B Aug 11, 2014 PART B [id number] ARCHAMBEA U,SHAQ PATIENT MEDICARE (WNR) MEDICARE () PART A Aug 11, 2014 PART A [id number] ARCHAMBEA U,SHAQ PATIENT MEDICARE (WNR) MEDICARE () PART B Aug 11, 2014 PART B [id number] ARCHAMBEA U,SHAQ PATIENT MEDICARE (WNR) MEDICARE (M) PART B Aug 11, 2014 PART B [id number] [id number] ARCHAMBEA U,SHAQ PATIENT [facility] (WNR) MEDICARE ADVANTAGE [facility] (WNR) May 13, 2020 [id number] SHAQ WONG PATIENT Selected Encounter This section includes the information on record at [place] for the Encounter. Date/Time Encounter Type Encounter Description Reason Pro vider Source September 13, 2023 07:54 AM Outpatient Encounter ADMIN PAT ACTIVTIES (MASNONCT) IHE Encounter Template Text not used by [place] Plan of Treatment: Future Appointments (+ 6 months) and Future Tests (+/- 45 days) The Plan of Treatment section includes future care activities for the patient from all [place] treatmentfacilities. This section includes future appointments and future orders which are active, pending or scheduled. Future Appointments This section includes appointments that were scheduled to occur 6 months from the date of the Encounter, up to a maximum of 20 appointments. The data comes from all [place] treatment facilities. Appointment Date/Time Appointment Type Appointme nt Facility Name October 02, 2023 08:00 AM AMBULATORY - [place]IC[place] [facility] [place] [facility] October 08, 2023 11:00 AM [facility]ATORY - MEDICINE [facility] October 09, 2023 08:30 AM AM[place]ULATORY [place] [facility] [place] [facility] Oct 23, 2023 08:30 AM AMBULATORY - MEDICINE [facility] Nov 19, 2023 08:30 AM AM[place]ULATORY [place] [facility] [place] [facility] Nov 28, 2023 07:30 AM AMBULATORY - [place]IN [place] [facility] [place] [facility] Dec 23, 2023 07:30 AM AM[place]UL[place]ORY [place] [facility] [facility] Dec 23, 2023 03:15 PM AMBULATORY - MEDICINE [facility] Jan 28, 2024 08:00 AM AM[place]ULATORY [place] [facility] [place] [facility] Jan 30, 2024 07:30 AM AM[place]UL[place]ORY [place] [facility] [facility] Mar 06, 2024 08:45 AM AM[place]UL[place]ORY [place] [facility] [facility] Mar 11, 2024 08:30 AM AMBULATORY - MEDICINE [facility] Social History: Smoking Status (Most current) [...] 2023 09:00 AM VA-TOBACCO FORMER USER [place] [facility] [place] [facility] Tobacco Use History This section includes a history of the smoking, or tobacco-related health factors, that were collected on or before the date of the Encounter. The data comes from the [place] facility where the Encounter took place. Date/Time Smoking Status/Tobacco Use Comment Joselyn blas Jul 04, 2023 09:00 AM VA-TOBACCO QUIT 15 YRS OR MORE [place] [facility] [place] [facility] Mar 14, 2022 03:02 PM VA-TOBACCO FORMER USER [place] [facility] [place] [facility] Mar 14, 2022 03:02 PM VA-TOBACCO QUIT 15 YRS OR MORE [place] [facility] [place] [facility] Feb 08, 2021 09:00 AM VA-TOBACCO FORMER USER [place] [facility] [place] [facility] Feb 08, 2021 09:00 AM VA-TOBACCO QUIT 15 YRS OR MORE [place] [facility] [place] [facility] October 09, 2019 01:12 PM VA-TOBACCO FORMER USER [place] [facility] [place] [facility] October 09, 2019 01:12 PM VA-TOBACCO QUIT 5 TO < 15 YRS [place] [facility] [place] [facility] Advance Directives: All historical and [...] Feb 21, 2021 ADVANCE DIRECTIVE BEL ESCALANTE ЮЛИЯ Radiology Reports: +/- 30 days of the [...] the Encounter. The data comes from all [place] treatment facilities. Date/Time Radiology Report Provider Source October 02, 2023 08:18 AM FLUOROSCOPIC NITIN NCE FOR NEEDLE PLACEMENT: SHAQ GREGORIO [id number] -1950 M Exm Date: OCTOBER 02, 2023@08:18 Req Phys: BERNABE PRIETO THI Pat Loc: CWM/NO/MED REHAB/SPINE INJ (Re Img Loc: [facility]BUILDING 1 Service: Unknown [facility] , (Case [id number] COMPLETE) FLUOROSCOPIC GUIDANCE FOR NEEDLE (RAD Detailed) CPT:51250 Proc Modifiers : LEFT Reason for Study: SI joint injection Clinical History: Report Status: Verified Date Reported: OCTOBER 02, 2023 Date Verified: OCTOBER 02, 2023 Crop And Soil Scientist E-Sig:/ROBE/LOU VICTORIA JR Report: Study: Pain injection [...] Primary Interpreting Staff: LOU VICTORIA JR, Radiologist (Crop And Soil Scientist) /LOU WASHINGTON JR [facility] Encounter Notes: All associated encounter notes This section contains the clinical notes associated to the Encounter. Date/Time Encounter Note(s) Provider Source September 13, 2023 07:54 AM ADMINISTRATIVE NOT E: LOCAL TITLE: CCC: SCHEDULING ADMINISTRATION STANDARD TITLE: ADMINISTRATIVE NOTE DATE OF NOTE: SEPTEMBER 13, 2023@07:54 ENTRY DATE: SEPTEMBER 13, 2023@07:54:29 AUTHOR: LILY MATHEWS EXP COSIGNER: URGENCY: STATUS: COMPLETED CCC: SCHEDULING ADMINISTRATION Has ADDENDA VERIFIED [employer] IS REQUESTING RENEWAL OF THE FOLLOWING MEDICATION: DRONEDARONE (MULTAQ) PA-F TAB 400MG TAKE ONE TABLET BY MOUTH TWICE DAILY FOR PAROXYSMAL ATRIAL FIBRILLATION Quantity: 180 Refills: 0 /robe/ LILY MATHEWS AMSA Signed: 09/13/2023 07:55 Receipt Acknowledged By: 09/16/2023 09:59 /robe/ MILI DEAN RN REGISTERED NURSE 09/13/2023 11:45 /es/ NATA MULLIGAN LPN LPN 09/13/2023 ADDENDUM STATUS: COMPLETED Medication prescribed by CC [employer] Feeder INSTRUMENT AND CONTROLS TECHNICIAN Bill at [facility]. Consult is active. Attempted to contact to discuss, unable to leave message as has non-descript voicemail. Will re-attempt contact at later time. /robe/ MILI DEAN RN REGISTERED NURSE Signed: 09/13/2023 11:44 09/16/2023 ADDENDUM STATUS: COMPLETED [place] contacted via telephone, state they will contact INSTRUMENT AND CONTROLS TECHNICIAN Bill at [facility] for renewal. /robe/ MILI DEAN RN REGISTERED NURSE Signed: 09/16/2023 09:59 LILY MATHEWS [facility]
--- OUTSIDE RECORDS SUMMARY | 2024-05-28 13:48 | XMS_ITS | Encounter Summary ---
Author Name [place] Address [address] [place] [id number] Care Team Providers Care Breastfeeding Program Coordinator Name Role Phone NEHEMIAH CUEVAS Primary [...] Name Patient's Relationship to Policy [facility]rell[facility] Aug 11, 2014 [id number] [phone] DHAVAL SHAQ Wagner [facility]IENT [facility] SUPPLEMEN ARTEMIO [facility] Aug 11, 2014 [id number] DHAVAL SHAQ Wagner [facility] SUPPLEMEN ARTEMIO MEDEX 2 Aug 11, 2014 [id number] DHAVAL SHAQ Wagner PAT[place] SUPPLEMEN ARTEMIO MEDEX 2 Aug 11, 2014 [id number] ARCHSTEPHANIA SHAQ Wagner [place] SUPPLEMEN ARTEMIO MEDEX 2 Aug 11, 2014 [id number] ARCHAMBEA SHAQ Wagner PATIENT BCBS OF [facility] BLUECARD MEDICARE SUPPLEMEN [facility] GF Aug 11, 2014 [id number] ARCHAMBEA SHAQ Wagner PATIENT [place] MEDICARE SUPPLEMEN [facility] GF Aug 11, 2014 [id number] ARCHOCTAVIOEA SHAQ Wagner PATIENT HUMANA [facility] (WNR) MEDICARE ADVANTAGE HUMAN A INSUR ANCE [facility] Jan 11, 2022 [id number] ARCHAMBEA Bernard,SHAQ PATIENT HUMANA [facility] (WNR) MEDICARE ADVANTAGE [facility] (WNR) Jan 11, 2022 [id number] [phone] ARCHAMBEA Bernard,SHAQ PATIENT MEDICARE (WNR) MEDICARE () PART A Dec 11, 2014 PART A [id number] ARCHAMBEA Bernard,SHAQ PATIENT MEDICARE (WNR) MEDICARE () PART A Aug 11, 2014 PART A [id number] ARCHAMBEA Bernard,SHAQ PATIENT MEDICARE (WNR) MEDICARE () PART B Aug 11, 2014 PART B [id number] ARCHAMBEA U,SHAQ PATIENT MEDICARE (WNR) MEDICARE () PART A Aug 11, 2014 PART A [id number] ARCHAMBEA Bernard,SHAQ PATIENT MEDICARE (WNR) MEDICARE () PART B Aug 11, 2014 PART B [id number] ARCHAMBEA U,SHAQ PATIENT MEDICARE (WNR) MEDICARE () PART A Aug 11, 2014 PART A [id number] ARCHAMBEA U,SHAQ PATIENT MEDICARE (WNR) MEDICARE () PART B Aug 11, 2014 PART B [id number] ARCHAMBEA U,SHAQ PATIENT MEDICARE (WNR) MEDICARE () PART B Aug 11, 2014 PART B [id number] ARCHAMBEA Bernard,SHAQ PATIENT [facility] (WNR) MEDICARE ADVANTAGE [facility] (WNR) May 13, 2020 [id number] SHAQ WONG PATIENT Selected Encounter This section includes the information on record at [place] for the Encounter. Date/Time Encounter Type Encounter Description Reason Pro vider Source September 17, 2023 12:00 AM Outpatient Encounter EVENT (HISTORICAL) IHE Encounter Template Text not used by [place] Plan of Treatment: Future Appointments (+ 6 [...] The data comes from all [place] treatment facilities. Appointment Date/Time Appointment Type Appointme nt Facility Name October 02, 2023 08:00 AM AMBULATORY - [place]IN [place] [facility] [place] [facility] October 08, 2023 11:00 AM AMBULATORY - MEDICINE [facility] October 09, 2023 08:30 AM AM[place]UL[place]ORY [place] [facility] Oct 23, 2023 08:30 AM AMBULATORY - MEDICINE [facility] Nov 19, 2023 08:30 AM AMBULATORY [place]INE [place] [facility] Nov 28, 2023 07:30 AM AMBULATORY - REHAB MEDICIN [place] [facility] [place] [facility] Dec 23, 2023 07:30 AM AMBULATORY - [place]INE [place] [facility] [place] [facility] Dec 23, 2023 03:15 PM AMBULATORY - MEDICINE [facility] Jan 28, 2024 08:00 AM AMBULATORY [place]INE [place] [facility] [facility] Jan 30, 2024 07:30 AM AMBULATORY - [place]ICINE [place] [facility] [place] [facility] Mar 06, 2024 08:45 AM AMBULATORY - MEDICINE [place] [facility] [place] [facility] Mar 11, 2024 08:30 AM AMBULATORY - MEDICINE [facility] Mar 16, 2024 08:30 AM AMBULATORY - [place]INE [place] [facility] [place] [facility] Social History: Smoking Status (Most current) [...] 04, 2023 09:00 AM VA-TOBACCO FORMER USER [place] [facility] [place] [facility] Tobacco Use History This section includes a history of the smoking, or tobacco-related health factors, that were collected on or before the date of the Encounter. The data comes from the [place] facility where the Encounter took place. Date/Time Smoking Status/Tobacco Use Comment Joselyn blas Jul 04, 2023 09:00 AM VA-TOBACCO QUIT 15 YRS OR MORE [place] [facility] [place] [facility] Mar 14, 2022 03:02 PM VA-TOBACCO FORMER USER [place] [facility] [place] [facility] Mar 14, 2022 03:02 PM VA-TOBACCO QUIT 15 YRS OR MORE [place] [facility] [place] [facility] Feb 08, 2021 09:00 AM VA-TOBACCO FORMER USER [place] [facility] [place] [facility] Feb 08, 2021 09:00 AM VA-TOBACCO QUIT 15 YRS OR MORE [place] [facility] [place] [facility] October 09, 2019 01:12 PM VA-TOBACCO FORMER USER [place] [facility] [place] [facility] October 09, 2019 01:12 PM VA-TOBACCO QUIT 5 TO < 15 YRS [place] [facility] [place] [facility] Advance Directives: All historical and current Section Date Range: From patient's date of to the date document was created. This section includes ALL of a patient's completed or amended [place] Advance and Rescinded Directives. The entries below indicate that a directive exists for the patient, but an actual copy is not included with this document. The data comes from all [place] facilities. Date Advance Directives Provider Source Feb [...] the Encounter. The data comes from all [place] treatment facilities. Date/Time Radiology Report Provider Source October 02, 2023 08:18 AM FLUOROSCOPIC NITIN NCE FOR NEEDLE PLACEMENT: SHAQ GREGORIO [id number] -1950 M Exm Date: OCTOBER 02, 2023@08:18 Req Phys: BERNABE PRIETO THI Pat Loc: CWM/NO/MED REHAB/SPINE INJ (Re Img Loc: [facility]ING 1 Service: Unknown [facility] , (Case 190 COMPLETE) FLUOROSCOPIC GUIDANCE FOR NEEDLE (RAD Detailed) CPT:43551 Proc Modifiers : LEFT Reason for Study: SI joint injection Clinical History: Report Status: Verified Date Reported: OCTOBER 02, 2023 Date Verified: OCTOBER 02, 2023 Intermodal Dispatcher E-Sig:/ES/LOU VICTORIA JR Report: Study: Pain injection [...] Primary Interpreting Staff: LOU VICTORIA JR, Radiologist (Intermodal Dispatcher) /LOU WASHINGTON JR [facility] Encounter Notes: All associated encounter notes This section contains the clinical notes associated to the Encounter. Date/Time Encounter Note(s) Provider Source September 17, 2023 12:00 AM NURSING ADMINISTRATIVE NOTE: LOCAL TITLE: NON-[place] PRESCRIPTION STANDARD TITLE: NURSING ADMINISTRATIVE NOTE DATE OF NOTE: SEPTEMBER 17, 2023 ENTRY DATE: NOV 12, 2023@15:41:39 AUTHOR: HAYLEY RENTERIA MA EXP COSIGNER: URGENCY: STATUS: COMPLETED VistA Imaging - Scanned Document SCANNED DOCUMENT SIGNATURE NOT REQUIRED Electronically Filed: 11/12/2023 by: HAYLEY RENTERIA [facility]OWER [facility]ENTERIA [facility]
--- OUTSIDE RECORDS SUMMARY | 2024-05-28 13:52 | XMS_ITS | Encounter Summary ---
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 MEDICARE SUPPLEMEN ARTEMIO MEDEX 2 Aug 11, 2014 [id number] DHAVAL SHAQ Wagner PATIENT [facility] MEDICARE SUPPLEMEN ARTEMIO [facility]EX 2 Aug 11, 2014 [id number] [phone] ARCHSTEPHANIA SHAQ Wagner PATIENT BCBS OR MEDICARE SUPPLEMEN ARTEMIO MEDEX 2 Aug 11, 2014 [id number] ARCHAMBEA SHAQ Wagner PATIENT BCBS OF [facility] BLUECARD MEDICARE SUPPLEMEN ARTEMIO [facility] Aug 11, 2014 [id number] [phone] ARCHAMBEA SHAQ Wagner PATIENT [place] MEDICARE SUPPLEMEN ARTEMIO [facility] GF Aug 11, 2014 [id number] ARCHOCTAVIOEA SHAQ Wagner PATIENT [facility] (WNR) MEDICARE ADVANTAGE HUMAN A INSUR ANCE [facility] Jan 11, 2022 [id number] [phone] ARCHAMBEA SHAQ Wagner PATIENT [facility] (WNR) MEDICARE ADVANTAGE [facility] (R) Jan 11, 2022 [id number] [phone] ARCHAMBEA Bernard,SHAQ PATIENT MEDICARE (WNR) MEDICARE () PART A Dec 11, 2014 PART A [id number] [phone] ARCHAMBEA Bernard,SHAQ PATIENT MEDICARE (WNR) MEDICARE () PART A Aug 11, 2014 PART A [id number] ARCHAMBEA Bernard,SHAQ PATIENT MEDICARE (WNR) MEDICARE () PART B Aug 11, 2014 PART B [id number] [phone] ARCHAMBEA U,SHAQ PATIENT MEDICARE (WNR) MEDICARE () PART A Aug 11, 2014 PART A [id number] ARCHAMBEA Bernard,SHAQ PATIENT MEDICARE (WNR) MEDICARE () PART B Aug 11, 2014 PART B [id number] ARCHAMBEA U,SHAQ PATIENT MEDICARE (WNR) MEDICARE () PART A Aug 11, 2014 PART A [id number] ARCHAMBEA U,SHAQ PATIENT MEDICARE ([place]NR) MEDICARE () PART B Aug 11, 2014 PART B [id number] ARCHAMBEA U,SHAQ PATIENT MEDICARE (WNR) MEDICARE () PART B Aug 11, 2014 PART B [id number] ARCHAMBEA Bernard,SHAQ PATIENT [employer] [facility] MCR (WNR) MEDICARE ADVANTAGE MCR (WNR) May 13, 2020 [id number] SHAQ WONG PATIENT Selected Encounter This section includes the information on record at [place] for the Encounter. Date/Time Encounter Type Encounter Description Reason Pro vider Source Mar 18, 2024 04:29 PM Outpatient Encounter PRIMARY CARE/MEDICINE IHE Encounter Template Text not used by [place] Plan of Treatment: Future Appointments (+ 6 months) and Future Tests (+/- 45 days) The Plan of Treatment section includes future care activities for the patient from [facility] This section includes future appointments and future orders which are active, pending or scheduled. Future Appointments This section includes appointments that were scheduled to occur 6 months from the date of the Encounter, up to a maximum of 20 appointments. The data comes from all [facility]. Appointment Date/Time Appointment Type Appointme nt Facility Name Apr 07, 2024 10:00 AM AMBULATORY - MEDICINE [place] [facility] [place] [facility] Apr 20, 2024 08:30 [facility] Apr 28, 2024 11[facility]00 AM AMBULATORY - MEDICINE [facility] [place] [facility] Jun 22, 2024 08:30 AM AMBULATORY - NONE [facility] [place] [facility] Jul 03, 2024 08:30 AM AMBULATORY - MEDICINE [facility] [place] [facility] Jul 10, 2024 09:00 AM [facility]UL[facility]ORY - [place]ICINE [place] [place] Jul 22, 2024 08:00 AM [facility]ULATORY - MEDICINE [facility] Active, Pending, and Scheduled Orders This section includes a listing of several types of active, pending, and scheduled orders, including clinic medications orders, diagnostic test orders, procedure orders and consult orders; where the start date of the order is 45 days before the date of the Encounter or 45 days after the date of theEncounter. The data comes from all [facility]. Test Date/Time Test Type Test Details Facility Name Apr 20, 2024 01:10 PM Consult Order COMMUNITY CARE-UROLOGY Cons Hand Deicer Element [facility] [place] Social History: Smoking Status (Most current) and [...] 04, 2023 09:00 AM VA-TOBACCO FORMER USER [facility] Tobacco Use History This section includes a history of the smoking, or tobacco-related health factors, that were collected on or before the date of the Encounter. The data comes from the [place] facility where the Encounter took place. Date/Time Smoking Status/Tobacco Use Comment Joselyn blas Jul 04, 2023 09:00 AM VA-TOBACCO QUIT 15 YRS OR MORE [facility] [place] [facility] Mar 14, 2022 03:02 PM VA-TOBACCO FORMER USER [facility] [place] [facility] Mar 14, 2022 03:02 PM VA-TOBACCO QUIT 15 YRS OR MORE [facility] [place] [facility] Feb 08, 2021 09:00 AM VA-TOBACCO FORMER USER [facility] [place] [facility] Feb 08, 2021 09:00 AM VA-TOBACCO QUIT 15 YRS OR MORE [facility] [place] [facility] October 09, 2019 01:12 PM VA-TOBACCO FORMER USER [facility] [place] [facility] October 09, 2019 01:12 PM VA-TOBACCO QUIT 5 TO < 15 YRS [facility] Advance Directives: All historical and [...] Feb 21, 2021 ADVANCE DIRECTIVE BEL ESCALANTE [facility] Encounter Notes: All associated encounter notes This section contains the clinical notes associated to the Encounter. Date/Time Encounter Note(s) Provider Source Mar 18, 2024 04:30 PM PAIN MEDICATION MG T NOTE: LOCAL TITLE: OPIOID/CONTROLLED SUBSTANCE NOTE STANDARD TITLE: PAIN MEDICATION MGT NOTE DATE OF NOTE: MAR 18, 2024@16:30 ENTRY DATE: MAR 18, 2024@16:30:17 AUTHOR: JIMENA MULLIGAN EXP COSIGNER: URGENCY: STATUS: [...] standard clinical care and in accordance with [facility] policy. 04/01/23 08:33 Amy Pittman PDMP [facility] [place] 04/01/23 08:35 Amy Pittman PDMP [facility] [place] 05/09/23 12:16 Zheng Bardales PDMP [facility] [place] 05/24/23 10:07 Ravinder Bunn LPN PDMP [facility] [place] 05/29/23 15:39 Nadazdin-Boskovic,Ognjenk PDMP [facility] [place] 06/30/23 09:50 Nadazdin-Boskovic,Ognjenk PDMP [facility] [place] 07/29/23 09:13 Nadazdin-Boskovic,Ognjenk PDMP [facility] [place] 08/26/23 15:57 Ramsey Patel PDMP [facility] [place] 09/24/23 15:22 Ramsey Patel PDMP [facility] [place] 10/22/23 13:59 Ramsey Patel PDMP [facility] [place] 11/22/23 15:46 John Camacho PDMP [facility] [place] 12/23/23 13:28 Jimena Mulligan PDMP [facility] [place] 03/18/24 16:28 Jimena Mulligan PDMP [facility] [place] Urine Drug Screen: A urine drug screen [...] Start date: 01/25/2024@06:08:07 Stop date: 04/24/2024@06:08:07 Duration: 53 D Last release date: 01/25/2024@06:08:07 Days supply: Carlos /robe/ JIMENA MULLIGAN LPN LPN Signed: 03/18/2024 16:30 JIMENA MULLIGAN EDIN Mar 18, 2024 04:29 PM ACCOUNTING OF DISC LOSURES NOTE: LOCAL TITLE: STATE PRESCRIPTION DRUG MONITORING PROGRAM STANDARD TITLE: ACCOUNTING OF DISCLOSURES NOTE DATE OF NOTE: MAR 18, 2024@16:29:59 ENTRY DATE: MAR 18, 2024@16:29:59 AUTHOR: JIMENA MULLIGAN EXP COSIGNER: NEHEMIAH NOEL URGENCY: STATUS: COMPLETED This PDMP query was submitted by Jimena Mulligan on behalf of Nehemiah Noel The clinical justification for this PDMP query is to review controlled substances prescribed outside of the [facility], and any additional information that may become available, as an important component of standard clinical care, and in accordance with [facility] policy. Patient information was shared with the PDMP [facility] [place]. The [facility] prescriber, for which I am a delegate, will be alerted of these PDMP findings through co-signature of this progress note. No prescription(s) for controlled substances outside the [facility] were found in the last 90 days. /robe/ JIMENA MULLIGAN LPN LPN Signed: 03/18/2024 16:30 /robe/ NEHEMIAH NOEL MD PHYSICIAN Cosigned: 03/20/2024 09:56 JIMENA MULLIGAN Mar 18, 2024 04:29 PM MEDICATION MGT NOT E: LOCAL TITLE: OUTPATIENT MEDICATION REQUEST STANDARD TITLE: MEDICATION MGT NOTE DATE OF NOTE: MAR 18, 2024@16:29 ENTRY DATE: MAR 18, 2024@16:29:14 AUTHOR: JIMENA MULLIGAN EXP COSIGNER: URGENCY: STATUS: COMPLETED Medication Request Date of Request: Mar Is this a New Medication? No PLEASE RENEW AND MAIL OXYCODONE HCL 5MG/APAP 325MG TAB TAKE 1 TABLET BY ACTIVE MOUTH THREE TIMES DAILY NEEDED FOR PAIN NEXT FILL 03/18/24 /reba MULLIGAN LPN LPN Signed: 03/18/2024 16:29 Receipt Acknowledged By: 03/20/2024 09:56 /reba NOEL MD PHYSICIAN JIMENA MULLIGAN
--- OUTSIDE RECORDS SUMMARY | 2024-05-28 13:53 | XMS_ITS | Encounter Summary ---
Author Name [facility] [place] [facility] [place] Address [address] [place] [id number] Care Team Providers Care Catering Staff Member Name Role Phone NEHEMIAH CUEVAS Primary [...] Name Patient's Relationship to Policy Orellana ANA [facility] Aug 11, 2014 [id number] DHAVAL SHAQ Wagner PATIENT [facility] BCBS [facility] MEDICARE SUPPLEMEN [facility]EMIO [facility] Aug 11, 2014 [id number] [phone] ALEJANDROSHAQ COATES [place] SUPPLEMEN ARTEMIO MEDEX 2 Aug 11, 2014 [id number] [phone] DHAVAL SHAQ Wagner PATIENT [place] SUPPLEMEN ARTEMIO MEDEX 2 Aug 11, 2014 [id number] DHAVAL SHAQ Wagner PAT[place] SUPPLEMEN ARTEMIO MEDEX 2 Aug 11, 2014 [id number] ARCHSHAQ COATES PATIENT BCBS OF [facility] BLUECARD MEDICARE [facility] Aug 11, 2014 [id number] [phone] ARCHAMBEA SHAQ Wagner PATIENT [place] [facility]ICARE [facility] Aug 11, 2014 [id number] ARCHAMBEA SHAQ Wagner PATIENT [facility] (WNR) MEDICARE ADVANTAGE [facility] (WNR) Jan 11, 2022 [id number] [phone] ARCHAMBEA Bernard,SHAQ PATIENT [facility] (WNR) MEDICARE ADVANTAGE HUMAN A INSUR ANCE [facility] Jan 11, 2022 [id number] [phone] ARCHAMBEA Bernard,SHAQ PATIENT MEDICARE (WNR) MEDICARE () PART A Dec 11, 2014 PART A [id number] ARCHAMBEA Bernard,SHAQ PATIENT MEDICARE ([place]) MEDICARE () PART A Aug 11, 2014 PART A [id number] ARCHAMBEA U,SHAQ PATIENT MEDICARE ([place] MEDICARE () PART B Aug 11, 2014 PART B [id number] [phone] ARCHAMBEA U,SHAQ PATIENT MEDICARE ([place]) MEDICARE () PART A Aug 11, 2014 PART A [id number] ARCHAMBEA U,SHAQ PATIENT MEDICARE ([place]) MEDICARE () PART B Aug 11, 2014 PART B [id number] ARCHAMBEA U,SHAQ PATIENT MEDICARE ([place]) MEDICARE () PART A Aug 11, 2014 PART A [id number] ARCHAMBEA U,SHAQ PATIENT MEDICARE ([place]) MEDICARE () PART B Aug 11, 2014 PART B [id number] ARCHAMBEA U,SHAQ PATIENT MEDICARE ([place]) MEDICARE () PART B Aug 11, 2014 PART B [id number] [phone] ARCHAMBEA Bernard,SHAQ PATIENT [facility] (WNR) MEDICARE ADVANTAGE [facility] (WNR) May 13, 2020 [id number] SHAQ WONG PATIENT Selected Encounter This section includes the information on record at [place] for the Encounter. Date/Time Encounter Type Encounter Description Reason Provider Source Apr 20, 2024 08:30 AM OFFICE O/P EST HI 40 MIN PRIMARY CARE/MEDICINE ICD-10-CM I21.4 Non-ST elevation (NSTEMI) myocardial infarction NEHEMIAH BOWERS Lillian Encounter Template Text not used by [place] Assessments - Encounter Diagnoses This section includes the primary and secondary diagnoses documented for the Encounter. Date/Time Primary/Secondary Diagnosis Diagnosis Name Provider Source Apr 26, 2024 02:31 AM PRIMARY Non-ST elevation (NSTEMI) myocardial infarction NEHEMIAH BOWERS [facility] Apr 26, 2024 02:31 AM SECONDARY Abnormal weight loss NEHEMIAH BOWERS [facility] Apr 26, 2024 02:31 AM SECONDARY Estes's esophagus without dysplasia NEHEMIAH BOWERS [facility] Apr 26, 2024 02:31 AM SECONDARY Carcinoma in situ of prostate NEHEMIAH BOWERS [facility] Apr 26, 2024 02:31 AM SECONDARY Hyperlipidemia, unspecified NEHEMIAH BOWERS [facility] Apr 26, 2024 02:31 AM SECONDARY Iron deficiency anemia secondary to blood loss (chronic) NEHEMIAH BOWERS [facility] Apr 26, 2024 02:31 AM SECONDARY Restless legs syndrome NEHEMIAH BOWERS [facility] Apr 26, 2024 02:31 AM SECONDARY Solitary pulmonary nodule NEHEMIAH BOWERS [facility] Apr 26, 2024 02:31 AM SECONDARY Unspecified atrial fibrillation NEHEMIAH BOWERS [facility] Apr 26, 2024 02:31 AM SECONDARY Vertebrogenic low back pain NEHEMIAH BOWERS [facility] Plan of Treatment: Future Appointments (+ 6 months) and Future Tests (+/- 45 days) The Plan of Treatment section includes future care activities for the patient from all [place] treatmentfacilities. This section includes future appointments and future orders which are active, pending or scheduled. Future Appointments This section includes appointments that were scheduled to occur 6 months from the date of the Encounter, up to a maximum of 20 appointments. The data comes from all [facility]. Appointment Date/Time Appointment Type Appointme nt Facility Name Apr 28, 2024 11:00 AM AMBULATORY - MEDICINE [facility] Jun 22, 2024 08:30 AM AMBUL[place]ORY - NONE [place] [facility] Jul 03, 2024 08:30 AM AMBULATORY - MEDICINE [facility] [place] [facility] Jul 10, 2024 09:00 AM AMBULATORY - MEDICINE [facility] [place] Jul 22, 2024 08:00 AM [facility] - MEDICINE [facility] Active, Pending, and Scheduled Orders This section includes a listing of several types of active, pending, and scheduled orders, including clinic medications orders, diagnostic test orders, procedure orders and consult orders; where the start date of the order is 45 days before the date of the Encounter or 45 days after the date of theEncounter. The data comes from all [facility]. Test Date/Time Test Type Test Details Facility Name Apr 20, 2024 01:10 PM Consult Order COMMUNITY CARE-UROLOGY [facility] [employer] [facility] May 12, 2024 02:53 PM Consult Order COMMUNITY CARE-DENTAL GENERAL [facility] Lab Results: +/- 30 days of [...] Range Comment Apr 20, 2024 09:33 AM [facility] LIPID PANEL FASTING Specimen Type: SERUM No comment entered. Ordering Provider: NEHEMIAH BOWERS Report Released Date/Time: Apr 15, 2024 02:47 PM Reporting Lab: [address] [address] Performing Lab: [address] [address] CHOLESTEROL 118 mg/dL TRIGLYCERIDE 58 mg/dL 0-150 LDL calculated 55 mg/dL 0-129 CHOL/HDL 2.3 HDL CHOLESTEROL 51 mg/dL 40-60 Apr 20, 2024 09:33 AM [facility] HEMOGLOBIN A1C PANEL Specimen Type: BLOOD Comment: [...] Apr 15, 2024 02:47 PM Reporting Lab: [address] [address] Performing Lab: [address] [address] HEMOGLOBIN A1C 5.1 4.0-5.6 Apr 20, 2024 09:33 AM [facility] BASIC METABOLIC PANEL (fasting) Specime n Type: SERUM No comment entered. Ordering Provider: NEHEMIAH BOWERS Report Released Date/Time: Apr 15, 2024 02:47 PM Reporting Lab: [address] [address] Performing Lab: [address] [address] UREA NITROGEN 13 mg/dL 7-25 GLUCOSE 105 mg/dL H 65-100 SODIUM 136 mmol/L 135-145 POTASSIUM 4.9 mmol/L 3.5-5.0 CHLORIDE 101 mmol/L 100-110 CO2 25 meq/L 20-30 CREATININE, Serum 1.04 mg/dL 0.50-1.40 eGFR(CKD-EPI 2020) 75 mL/min >60 Apr 20, 2024 09:33 AM [facility] LIVER FUNCTION Specimen Type: SERUM No comment entered. Ordering Provider: NEHEMIAH BOWERS Report Released Date/Time: Apr 15, 2024 02:47 PM Reporting Lab: [facility] [address] [address] Performing Lab: [address] [address] PROTEIN,TOTAL 6.6 g/dL 6.0-8.3 ALBUMIN 3.8 g/dL 3.5-5.0 ALKALINE PHOSPHATASE 111 U/L 40-150 AST 18 U/L 5-34 ALT 34 U/L BILIRUBIN, TOTAL 0.3 mg/dL 0.2-1.2 Apr 20, 2024 09:33 AM [facility] TSH Specimen Type: SERUM No comment entered. Ordering Provider: NEHEMIAH BOWERS Report Released Date/Time: Apr 15, 2024 02:47 PM Reporting Lab: [address] [address] Performing Lab: [address] [address] TSH 2.13 u[IU]/mL 0.35-5.00 Apr 20, 2024 09:33 AM [facility] CBC AND DIFF (AUTO) Specimen Type: BLOOD No comment entered. Ordering Provider: NEHEMIAH BOWERS Report Released Date/Time: Apr 15, 2024 02:47 PM Reporting Lab: [address] [address] Performing Lab: [address] [address] WBC 9.20 10*3/uL 4.50-11.00 RBC 3.75 10*6/uL [...] 10*3/uL 0.00-0.00 Apr 20, 2024 09:33 AM [facility] FERRITIN Specimen Type: SERUM No comment entered. Ordering Provider: NEHEMIAH BOWERS Report Released Date/Time: Apr 20, 2024 09:28 AM Reporting Lab: [facility] [address] [facility] [address] Performing Lab: [address] [address] FERRITIN 63 ng/mL 20-300 Apr 20, 2024 09:33 AM [facility] IRON & TIBC PANEL Specimen Type: SERUM No comment entered. Ordering Provider: NEHEMIAH BOWERS Report Released Date/Time: Apr 20, 2024 09:28 AM Reporting Lab: [facility] [address] [facility] [address] Performing Lab: [address] [address] TIBC 360 ug/dL 204-475 IRON 25 ug/dL L 40-160 Transferrin Saturation 6.9 L 20.0-50.0 Transferrin (TRF) 273 mg/dL 200-360 Apr 20, 2024 09:33 AM [facility] VITAMIN B12 Specimen Type: SERUM No comment entered. Ordering Provider: NEHEMIAH BOWERS Report Released Date/Time: Apr 20, 2024 09:28 AM Reporting Lab: [facility] [address] [facility] [address] Performing Lab: [facility] [address] [facility] [address] VITAMIN B12 1032 pg/mL H 200-900 Vital Signs: All taken on the encounter date This section contains inpatient and outpatient Vital Signs collected on the date of the Encounter. Date/Time Temperature Pulse Blood Pressure Respiratory Rate SP02 Pain Height Weight Body Mass Index Source Apr 20, 2024 08:53 AM 97.3 48 149/56 99 132.2 20 [place] Social History: Smoking Status (Most current) [...] AM [place]-TOBACCO QUIT 15 YRS OR MORE [facility] Tobacco Use History This section includes a history of the smoking, or tobacco-related health factors, that were collected on or before the date of the Encounter. The data comes from the [place] facility where the Encounter took place. Date/Time Smoking Status/Tobacco Use Comment F roopa Oct 31, 2018 11:38 AM [place]-TO[place] QU[place] 15 YRS OR MORE [facility] Jul 12, 2017 08:51 AM QUIT TOBACCO USE > 7 YEARS AGO [facility] Mar 30, 2016 08:29 AM QUIT TOBACCO USE > 7 YEARS AGO [facility] Mar 04, 2015 10:57 AM QUIT TOBACCO USE > 7 YEARS AGO [facility] Advance Directives: All historical and current Section [...] Feb 21, 2021 ADVANCE DIRECTIVE BEL [facility] Encounter Notes: All associated encounter notes This section contains the clinical notes associated to the Encounter. Date/Time Encounter Note(s) Provider Source May 12, 2024 03:44 PM ACCOUNTING OF DISC LOSURES NOTE: LOCAL TITLE: STATE PRESCRIPTION DRUG MONITORING PROGRAM STANDARD TITLE: ACCOUNTING OF DISCLOSURES NOTE DATE OF NOTE: MAY 12, 2024@15:44:22 ENTRY DATE: MAY 12, 2024@15:44:22 AUTHOR: JOHN AL EXP COSIGNER: NEHEMIAH CUEVAS URGENCY: STATUS: COMPLETED This PDMP query was submitted by John Al on behalf of Nehemiah Cuevas The clinical justification for this PDMP query is to review controlled substances prescribed outside of the [facility], and any additional information that may become available, as an important component of standard clinical care, and in accordance with [facility] policy. Patient information was shared with the PDMP [place]. The VA prescriber, for which I am a delegate, will be alerted of these PDMP findings through co-signature of this progress note. Prescription(s) which have been filled outside the [facility] in the last 90 days are noted. Hydromorphone 2 mg was filled on 04/10/24 with Commercial Insurance at [facility]. /robe/ JOHN AL RN REGISTERED NURSE Signed: 05/12/2024 15:44 /robe/ NEHEMIAH CUEVAS MD PHYSICIAN Cosigned: 05/20/2024 14:20 JOHN AL May 12, 2024 03:44 PM PAIN MEDICATION MG T NOTE: LOCAL TITLE: OPIOID/CONTROLLED SUBSTANCE NOTE STANDARD TITLE: PAIN MEDICATION MGT NOTE DATE OF NOTE: MAY 12, 2024@15:44 ENTRY DATE: MAY 12, 2024@15:44:36 AUTHOR: JOHN AL EXP COSIGNER: URGENCY: STATUS: [...] standard clinical care and in accordance with [facility] policy. 05/24/23 10:07 Ravinder Bunn LPN PDMP [place] 05/29/23 15:39 Nadazdin-Boslilo,Ognjulián PDMP [place] [place] 06/30/23 09:50 Nadazausten-Boslilo,Ognjenk PDMP [place] [place] 07/29/23 09:13 Nadazdin-Boslilo,Ognjenk PDMP [place] [place] 08/26/23 15:57 Ramsey Patel PDMP [place] [place] 09/24/23 15:22 Ramsey Patel PDMP [place] [place] 10/22/23 13:59 Ramsey Patel PDMP [facility] [place] 11/22/23 15:46 Omar-John Hong PDMP [place] [place] 12/23/23 13:28 Jimena Cox PDMP [facility] [place] 03/18/24 16:28 Jimena Cox PDMP [facility] [place] 03/26/24 11:35 Omar-MirJohn moralez PDMP [facility] [place] 04/13/24 08:33 Jeff-Lisy,Ognjejennifer PDMP [facility] [place] 05/12/24 15:39 Omar-MirekuJohn PDMP [place] Urine Drug Screen: A urine drug screen [...] HCL 4MG/SPRAY SOLN NASAL SPRAY 04/24/2024@06:08:07 Status: Start date: 01/25/2024@06:08:07 Stop date: 04/24/2024@06:08:07 Duration: 90 D Last release date: 01/25/2024@06:08:07 Days supply: 90 /es/ JOHN AL RN REGISTERED NURSE Signed: 05/12/2024 15:45 JOHN AL Apr 20, 2024 08:30 AM PHYSICIAN NOTE: LOCAL TITLE: NOTE STANDARD TITLE: PHYSICIAN NOTE DATE OF NOTE: APR 20, 2024@08:30 ENTRY DATE: APR 18, 2024@21:23:43 AUTHOR: Anali CUEVAS COSIGNER: URGENCY: STATUS: COMPLETED NOTE Has ADDENDA 73 y/o M with PMH of HL, NSTEMI 2023, paroxismal A. fib , prostate cancer, lung nodule, Estes's esophagus, LBP, RLS here today for posthospital discharge follow-up Last visit 09/2023 PCP is [place] Other providers: -- Cardiology [facility]- Dr. Segura [phone]- -- [facility] DR Kevin Bunch 2022 -->s/p foot surgery -- Rehab [facility]: Dr. Headley s/p Left L5-S1 and S1 transforaminal epidural steroid injection q4m -- urologist: Dr. 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 Barraza/Dr. Lawson- [facility] -- optometry: [facility] -- derm 10/02/18 w DX: SK, [place], Garcias angiomas RTC PRN Recent falls (x)none pt accompanied by his today [facility] Admitted 03/31/2024 Discharged on 04/10/2024 Discharge diagnoses: Hematuria associated with ureteral mass versus clot Acute blood loss anemia COVID- Scrotal edema Paroxysmal A-fib with RVR NSTEMI [...] chest 2017, 2018 showed stable nodules since 2015 -- Estes's esophagus last EGD 01/2021 Estes's, [...] discontinued March 2024 for hematuria -c/w non [facility] ASA 81 mg -c/w amiodarone 200 mg [...] cystoscopy Discontinued apixaban #Adenocarcinoma of prostate:completed radiation/ADT ([id number]) 01/2016 CT a/p, bone scan - no mets, thickened right bladder base (Negative cystoscopy) 2017 TRUS-benign Bx (PSA 0.69) 2023 at [facility] CT a/p showed Sclerotic posterior right iliac 1cm lesion suspicion for metastatic prostate cancer, -f/w [facility] urology annually PSA indefinitely, last PSA 0.26 (12/2023) urology f/u #Lumbosacral spondylosis with radiculopathy -Degeneration of intervertebral disc cervical spondylosis, -f/w rehab at [facility] -s/p injections --cancelled last injection due to acute issues with afib, hematurria -oxycodone TID prn #RLS: sx well controlled on Ropinirole #ex smoker: quit #lung nodule - f/w nonVA oncology annually stable nodule since 2014 - -Repeat CT chest with contrast In 2020 showed stable subcentimeter pulmonary nodules. CXR 06/2023 ([facility])-Stable hyperinflation b/l, CT chest with contrast 03/2024 showed stable 1.2cm pulmonary nodules, unchanged since 2020 #Estes's esophagus: asymptomatic on PPI UGIB early : NSAID-Induced : avoid NSAIDS- EGD: 01/2021 Estes's, IM, no dysplasia - repeat in 5 y -c/w omeprazole 40mg daily --> B12, Mg wnl f/w GI Dr. Barraza #Unintentional weight loss (since ) -stabilized on nutritional supplements now with 10 lb weight loss after most recent hospitalization-=- -Ensure daily -f/w nutrition Healthcare maintenance: --Lipids: LDL 55 (04/2024) --Diabetes: A1c 5.1 (04/2024) --Colon CA (50-75): due 01/2031 diverticulosis --Lung CA: f/w oncology stable lung nodule 2014- [address] chest with contrast 03/2024 [...] this [facility] (local) and dispensed from another [place] or [place] facility (remote) as well as [...] PHYSICIAN Signed: 04/26/2024 02:31 Receipt Acknowledged By: 05/14/2024 13:11 /robe/ JOHN AL RN REGISTERED NURSE 04/27/2024 10:21 /es/ CHERELLE KERR AMSYony 05/05/2024 ADDENDUM STATUS: COMPLETED March 2024 hospitalization notes received, sent to [facility]. /robe/ Joi Hill RN Registered Nurse Signed: 05/05/2024 08:04 05/14/2024 ADDENDUM STATUS: COMPLETED Spoke with 's , BEL. Advised as requested by PCP. She verbalized understanding. All questions answered. /robe/ JOHN AL RN REGISTERED NURSE Signed: 05/14/2024 13:11 JOSE CUEVAS [facility] Apr 10, 2024 12:18 PM ADMINISTRATIVE NOT E: LOCAL TITLE: ADMINISTRATIVE NOTE STANDARD TITLE: ADMINISTRATIVE NOTE DATE OF NOTE: APR 10, 2024@12:18 ENTRY DATE: APR 10, 2024@12:18:28 AUTHOR: CHERELLE KERR EXP COSIGNER: URGENCY: STATUS: COMPLETED [facility] [address] [place] [phone] * [facility] [address] [place] [phone] Date: APR 10, 2024 re: This is a reminder of your upcoming PCP appt with NEHEMIAH CUEVAS. Appointment Date: Apr@08:30 Appointment Type: In-person visit Fasting blood work NON fasting blood work LEFT MESSAGE ON VOICEMAIL ON HOME PHONE TO CONFIRM APPT Sincerely, Office Staff for: NEHEMIAH CUEVAS Primary Care Provider [facility] [address] [place] [id number] T [phone] F [phone] Upcoming Appointments: 04/20/2024 08:30 CWM/SO/PACT 5 04/29/2024 08:30 CWM/NO/MED REHAB/SPINE IN 06/22/2024 08:30 CWM/SO/NUTRITION1 07/22/2024 08:00 CWM/SO/PODIATRY/ROSS APPOINTMENT [facility]BBREVIATION [facility]ENDR[facility] (SPOPC OR SO = [facility], [facility]) (GOPC OR GO = [place], [address] [facility]) (NHM or NO = [facility]) (VVC - Video Call) (Tel-X Telephone Visit) (TH - Telehealth) /robe/ CHERELLE LINDQUIST Signed: 04/10/2024 12:19 CHERELLE KERR
--- OUTSIDE RECORDS SUMMARY | 2024-05-28 13:54 | XMS_ITS | Encounter Summary ---
Author Name [facility] [place] Address [address] [place] [address] Care Team Providers Care Reference Archivist Name Role Phone NEHEMIAH CUEVAS Primary Care [...] Orellana ANA [facility] Aug 11, 2014 [id number] DHAVAL SHAQ Wagner PATIENT [facility] MEDICARE SUPPLEMEN ARTEMIO [facility] Aug 11, 2014 [id number] [phone] DHAVAL SHAQ Wagner [facility]IENT [facility] MEDIC[facility] SUPPLEMEN ARTEMIO MEDEX 2 Aug 11, 2014 [id number] [phone] DHAVAL SHAQ Wagner [facility] MEDIC[facility] SUPPLEMEN ARTEMIO MEDEX 2 Aug 11, 2014 [id number] DHAVAL SHAQ Wagner PATIENT [facility] MEDICARE SUPPLEMEN ARTEMIO MEDEX 2 Aug 11, 2014 [id number] ARCHAMBEA SHAQ Wagner PATIENT BCBS OF [facility] BLUECARD MEDICARE SUPPLEMEN ARTEMIO [place] [facility] GF Aug 11, 2014 [id number] [phone] ARCHAMBEA SHAQ Wagner PATIENT [place] BCBS [place] MEDICARE SUPPLEMEN [place]EMIO [place] [facility] GF Aug 11, 2014 [id number] ARCHAMBEA Bernard,SHAQ PATIENT HUMANA [facility] (WNR) MEDICARE ADVANTAGE HUMAN A INSUR ANCE [facility] Jan 11, 2022 [id number] [phone] ARCHAMBEA U,SHAQ PATIENT HUMANA MCR (WNR) MEDICARE ADVANTAGE MCR (WNR) Jan 11, 2022 [id number] [phone] ARCHAMBEA U,SHAQ PATIENT MEDICARE (WNR) MEDICARE () PART A Dec 11, 2014 PART A [id number] ARCHAMBEA U,SHAQ PATIENT MEDICARE (WNR) MEDICARE () PART A Aug 11, 2014 PART A [id number] ARCHAMBEA U,SHAQ PATIENT MEDICARE (WNR) MEDICARE () PART B Aug 11, 2014 PART B [id number] ARCHAMBEA U,SHAQ PATIENT MEDICARE (WNR) MEDICARE () PART A Aug 11, 2014 PART A [id number] ARCHAMBEA U,SHAQ PATIENT MEDICARE (WNR) MEDICARE () PART B Aug 11, 2014 PART B [id number] ARCHAMBEA U,SHAQ PATIENT MEDICARE (WNR) MEDICARE () PART A Aug 11, 2014 PART A [id number] ARCHAMBEA U,SHAQ PATIENT MEDICARE (WNR) MEDICARE () PART B Aug 11, 2014 PART B [id number] [phone] ARCHAMBEA U,SHAQ PATIENT MEDICARE (WNR) MEDICARE (M) PART B Aug 11, 2014 PART B [id number] ARCHAMBEA U,SHAQ PATIENT [facility] (WNR) MEDICARE ADVANTAGE [facility] (WNR) May 13, 2020 [id number] SHAQ WONG PATIENT Selected Encounter This section includes the information [place] at [place] for the Encounter. Date/Time Encounter Type Encounter Description Reason Pro vider Source Apr 13, 2024 08:31 AM Outpatient Encounter ADMIN PAT ACTIVTIES (MASNONCT) [...] 2024 08:30 AM AMBULATORY - MEDICINE [facility] Apr 28, 2024 11:00 AM AMBULATORY - MEDICINE [place] [facility] [place] [facility] Jun 22, 2024 08:30 AM AMBULATORY - NONE [place] [facility] [place] [facility] Jul 03, 2024 08:30 AM AMBULATORY - MEDICINE [place] [facility] Jul 10, 2024 09:00 AM AMBULATORY - MEDICINE [facility] Jul 22, 2024 08:00 [facility] Active, Pending, and Scheduled Orders [...] data comes from all [place] treatment facilities. Test Date/Time Test Type Test Details Facility Name Apr 20, 2024 01:10 PM Consult Order COMMUNITY CARE-UROLOGY Cons Concrete [facility] [place] May 12, 2024 02:53 PM Consult Order COMMUNITY CARE-DENTAL GENERAL Cons Concrete Puddler[facility] Choice [facility] Lab Results: +/- 30 days of [...] Range Comment Apr 20, 2024 09:33 AM [place] LIPID PANEL FASTING Specimen Type: SERUM No comment entered. Ordering Provider: NEHEMIAH BOWERS Report Released Date/Time: Apr 15, 2024 02:47 PM Reporting Lab: [facility]ITALUSE[address] [address] Performing Lab: [address] [address] CHOLESTEROL 118 mg/dL TRIGLYCERIDE 58 mg/dL 0-150 LDL calculated 55 mg/dL 0-129 CHOL/HDL 2.3 HDL CHOLESTEROL 51 mg/dL 40-60 Apr 20, 2024 09:33 AM [place] HEMOGLOBIN A1C PANEL Specimen Type: BLOOD Comment: [...] Apr 15, 2024 02:47 PM Reporting Lab: [facility] [address] [address] Performing Lab: [facility]ITALUSE[address] [address] HEMOGLOBIN A1C 5.1 4.0-5.6 Apr 20, 2024 09:33 AM [place] TSH Specimen Type: SERUM No comment entered. Ordering Provider: NEHEMIAH BOWERS Report Released Date/Time: Apr 15, 2024 02:47 PM Reporting Lab: [facility]ITAL[facility] [address] Performing Lab: [facility]ITALUSE[address] [address] TSH 2.13 u[IU]/mL 0.35-5.00 Apr 20, 2024 09:33 AM [place] BASIC METABOLIC PANEL (fasting) Specime n Type: SERUM No comment entered. Ordering Provider: NEHEMIAH BOWERS Report Released Date/Time: Apr 15, 2024 02:47 PM Reporting Lab: [address] [address] Performing Lab: [address] [address] UREA NITROGEN 13 mg/dL 7-25 GLUCOSE 105 mg/dL H 65-100 SODIUM 136 mmol/L 135-145 POTASSIUM 4.9 mmol/L 3.5-5.0 CHLORIDE 101 mmol/L 100-110 CO2 25 meq/L 20-30 CREATININE, Serum 1.04 mg/dL 0.50-1.40 eGFR(CKD-EPI 2020) 75 mL/min >60 Apr 20, 2024 09:33 AM [place] LIVER FUNCTION Specimen Type: SERUM No comment entered. Ordering Provider: NEHEMIAH BOWERS Report Released Date/Time: Apr 15, 2024 02:47 PM Reporting Lab: [address] [address] Performing Lab: [address] [address] PROTEIN,TOTAL 6.6 g/dL 6.0-8.3 ALBUMIN 3.8 g/dL 3.5-5.0 ALKALINE PHOSPHATASE 111 U/L 40-150 AST 18 U/L 5-34 ALT 34 U/L BILIRUBIN, TOTAL 0.3 mg/dL 0.2-1.2 Apr 20, 2024 09:33 AM [place] CBC AND DIFF (AUTO) Specimen Type: BLOOD No comment entered. Ordering Provider: NEHEMIAH BOWERS Report Released Date/Time: Apr 15, 2024 02:47 PM Reporting Lab: [address] [address] Performing Lab: [address] [address] WBC 9.20 10*3/uL 4.50-11.00 RBC 3.75 10*6/uL [...] 10*3/uL 0.00-0.00 Apr 20, 2024 09:33 AM [place] FERRITIN Specimen Type: SERUM No comment entered. Ordering Provider: NEHEMIAH BOWERS Report Released Date/Time: Apr 20, 2024 09:28 AM Reporting Lab: [address] [address] Performing Lab: [address] [address] FERRITIN 63 ng/mL 20-300 Apr 20, 2024 09:33 AM [place] VITAMIN B12 Specimen Type: SERUM No comment entered. Ordering Provider: NEHEMIAH BOWERS Report Released Date/Time: Apr 20, 2024 09:28 AM Reporting Lab: [facility] [address] [facility] [address] Performing Lab: [facility]ITALUSE[facility] [address] [facility] [address] VITAMIN B12 1032 pg/mL H 200-900 Apr 20, 2024 09:33 AM [place] IRON & TIBC PANEL Specimen Type: SERUM No comment entered. Ordering Provider: NEHEMIAH BOWERS Report Released Date/Time: Apr 20, 2024 09:28 AM Reporting Lab: [facility]ITALUSE[facility] [address] [facility] [address] Performing Lab: [facility]ITALUSE[facility] [address] [facility] [address] TIBC 360 ug/dL 204-475 IRON 25 ug/dL [...] 04, 2023 09:00 AM VA-TOBACCO FORMER USER [facility]USE[facility] Tobacco Use History This section includes a history of the smoking, or tobacco-related health factors, that were collected on or before the date of the Encounter. The data comes from the [place] facility where the Encounter took place. Date/Time Smoking Status/Tobacco Use Comment F [email or web address] Jul 04, 2023 09:00 AM VA-TOBACCO QUIT 15 YRS OR MORE [place] [facility] [place] [facility] Mar 14, 2022 03:02 PM VA-TOBACCO FORMER USER [place] [facility] Mar 14, 2022 03:02 PM VA-TOBACCO QUIT 15 YRS OR MORE [place] [facility] Feb 08, 2021 09:00 AM VA-TOBACCO FORMER USER [place] [facility] Feb 08, 2021 09:00 AM VA-TOBACCO QUIT 15 YRS OR MORE [facility] October 09, 2019 01:12 PM VA-TOBACCO [facility] October 09, 2019 01:12 PM [place]-TO[place]ACCO QUIT 5 TO < 15 YRS [facility] Advance Directives: All historical [...] Feb 21, 2021 ADVANCE DIRECTIVE BEL ESCALANTE [facility] Encounter Notes: All associated encounter notes This section contains the clinical notes associated to the Encounter. Date/Time Encounter Note(s) Provider Source Apr 13, 2024 08:31 AM ADMINISTRATIVE NOT E: LOCAL TITLE: CCC: SCHEDULING ADMINISTRATION STANDARD TITLE: ADMINISTRATIVE NOTE DATE OF NOTE: APR 13, 2024@08:31:58 ENTRY DATE: APR 13, 2024@08:31:59 AUTHOR: HERNANDEZ SALES EXP COSIGNER: URGENCY: STATUS: COMPLETED Patient Demographics Patient Name: SHAQ GREGOROI Patient Primary Phone: [phone] Patient Primary Address: [address] [place] [id number] Patient : 1950 Patient Age: 73 Caller/Recipient Relation to Patient: Self Caller Name: SHAQ GREGORIO Administrative Administrative Note Reason: Medication Renewal [place] Medications Refill/Renewal Request: Rx # - Medication Name - Dosage - SIG - Number of Refills - Facility - Status [id number] - OXYCODONE HCL 5MG/APAP 325MG TAB - 1 TABLET - TAKE 1 TABLET BY MOUTH THREE TIMES DAILY NEEDED FOR PAIN [NEXT FILL DATE 04/17/24] - 0 - [facility] - 631BY - ACTIVE Administrative Note Comments: 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 IMPORTANT: This note was created by [facility] Clinical Contact Center staff. Please do not alert the staff member by adding them as a signer for future communications. Alerts are not monitored by this user. /robe/ HERNANDEZ MANCILLA 1 [facility] AMSA Signed: 04/13/2024 08:31 Receipt Acknowledged By: 04/13/2024 08:33 /es/ NEHEMIAH CUEVAS MD PHYSICIAN 04/13/2024 16:22 /es/ CECILIO AL RN REGISTERED NURSE HERNANDEZ SALES [facility]
--- OUTSIDE RECORDS SUMMARY | 2024-05-28 13:56 | XMS_ITS | Encounter Summary ---
Author Name [facility] [place] Address [address] [place] [address] Care Team Providers Care Casting Supervisor Name Role Phone NEHEMIAH CUEVAS Primary [...] ANA [facility] Aug 11, 2014 [id number] DHAVAL SHAQ Wagner [facility]IENT [facility] SUPPLEMEN [facility]EMIO [facility] Aug 11, 2014 [id number] DHAVAL SHAQ Wagner [facility] SUPPLEMEN ARTEMIO MEDEX 2 Aug 11, 2014 [id number] [phone] DHAVAL SHAQ Wagner [facility] SUPPLEMEN ARTEMIO MEDEX 2 Aug 11, 2014 [id number] DHAVAL SHAQ Wagner PATIENT [facility] MEDICARE SUPPLEMEN ARTEMIO MEDEX 2 Aug 11, 2014 [id number] [phone] ARCHAMBEA SHAQ Wagner PATIENT BCBS OF [facility] BLUECARD MEDICARE SUPPLEMEN [place]EMIO [place] [facility] GF Aug 11, 2014 [id number] [phone] ARCHAMBEA SHAQ Wagner PATIENT [place] BCBS [place]) MEDICARE SUPPLEMEN ARTEMIO [place] [facility] GF Aug 11, 2014 [id number] ARCHAMBEA Bernard,SHAQ PATIENT HUMANA [facility] (WNR) MEDICARE ADVANTAGE HUMAN A INSUR ANCE [facility] Jan 11, 2022 [id number] [phone] ARCHAMBEA U,SHAQ PATIENT HUMANA MCR (WNR) MEDICARE ADVANTAGE MCR (WNR) Jan 11, 2022 [id number] [phone] ARCHAMBEA U,SHAQ PATIENT MEDICARE (WNR) MEDICARE () PART A Dec 11, 2014 PART A [id number] ARCHAMBEA U,SHAQ PATIENT MEDICARE (WNR) MEDICARE () PART A Aug 11, 2014 PART A [id number] ARCHAMBEA U,SHAQ PATIENT MEDICARE (WNR) MEDICARE () PART B Aug 11, 2014 PART B [id number] [phone] ARCHAMBEA U,SHAQ PATIENT MEDICARE (WNR) MEDICARE () PART A Aug 11, 2014 PART A [id number] [phone] ARCHAMBEA U,SHAQ PATIENT MEDICARE (WNR) MEDICARE () PART B Aug 11, 2014 PART B [id number] ARCHAMBEA U,SHAQ PATIENT MEDICARE (WNR) MEDICARE () PART A Aug 11, 2014 PART A [id number] [phone] ARCHAMBEA U,SHAQ PATIENT MEDICARE (WNR) MEDICARE () PART B Aug 11, 2014 PART B [id number] [phone] ARCHAMBEA U,SHAQ PATIENT MEDICARE (WNR) MEDICARE (M) PART B Aug 11, 2014 PART B [id number] ARCHAMBEA U,SHAQ PATIENT [facility] (WNR) MEDICARE ADVANTAGE [facility] (WNR) May 13, 2020 [id number] SHAQ WONG PATIENT Selected Encounter This section includes the information on record at [place] for the Encounter. Date/Time Encounter Type Encounter Description Reason Pro vider Source Apr 26, 2024 09:16 AM Outpatient Encounter ADMIN PAT ACTIVTIES (MASNONCT) IHE Encounter Template Text not used by [place] Plan of Treatment: Future Appointments (+ 6 [...] 28, 2024 11:00 AM AMBULATORY - MEDICINE [facility] [place] [facility] Jun 22, 2024 08:30 AM [facility] NONE [facility] [place] [place] [facility] Jul 03, 2024 08:30 AM AMBULATORY - MEDICINE [facility] [place] [facility] Jul 10, 2024 09:00 AM AMBULATORY [...] of theEncounter. The data comes from all [place] treatment [facility]. Test Date/Time Test Type Test Details Facility Name Apr 20, 2024 01:10 PM Consult Order COMMUNITY CARE-UROLOGY Cons Carpentry [facility] [place] May 12, 2024 02:53 PM Consult Order COMMUNITY CARE-DENTAL GENERAL Cons Carpentry Foreman's Choice [facility] [place] [facility] Lab Results: +/- 30 days of the encounter This section includes the Chemistry and Hematology Lab Results on record with [place] for the patient. Radiology Reports and Pathology Reports are provided separately, in subsequent sections. Lab Results This section contains the Chemistry/Hematology Results that were resulted 30 days before or 30 daysafter the date of the Encounter. Date/Time Source Result Type Result - Unit Interpretation Reference Range Comment Apr 20, 2024 09:33 AM [place] LIPID PANEL FASTING Specimen Type: SERUM No comment entered. Ordering Provider: NEHEMIAH BOWERS Report Released Date/Time: Apr 15, 2024 02:47 PM Reporting Lab: [place] [facility] [address] [facility] [address] Performing Lab: [facility] WSN [facility]ENTERUSE[address] [address] CHOLESTEROL 118 mg/dL TRIGLYCERIDE 58 mg/dL 0-150 LDL calculated 55 mg/dL 0-129 CHOL/HDL 2.3 HDL CHOLESTEROL 51 mg/dL 40-60 Apr 20, 2024 09:33 AM [place] HEMOGLOBIN A1C PANEL Specimen Type: BLOOD Comment: [...] Apr 15, 2024 02:47 PM Reporting Lab: [place] [facility] [address] [facility] [address] Performing Lab: [place] CN[facility] [facility] CENTERUSETS [address] [address] HEMOGLOBIN A1C 5.1 4.0-5.6 Apr 20, 2024 09:33 AM [place] TSH Specimen Type: SERUM No comment entered. Ordering Provider: NEHEMIAH BOWERS Report Released Date/Time: Apr 15, 2024 02:47 PM Reporting Lab: [place] [facility] [address] [facility] [address] Performing Lab: [place] [address] [address] TSH 2.13 u[IU]/mL 0.35-5.00 Apr 20, 2024 09:33 AM [place] BASIC METABOLIC PANEL (fasting) Specime n Type: SERUM No comment entered. Ordering Provider: NEHEMIAH BOWERS Report Released Date/Time: Apr 15, 2024 02:47 PM Reporting Lab: [address] [address] Performing Lab: [address] [address] UREA NITROGEN 13 mg/dL 7-25 GLUCOSE 105 mg/dL H 65-100 SODIUM 136 mmol/L 135-145 POTASSIUM 4.9 mmol/L 3.5-5.0 CHLORIDE 101 mmol/L 100-110 CO2 25 meq/L 20-30 CREATININE, Serum 1.04 mg/dL 0.50-1.40 eGFR(CKD-EPI 2020) 75 mL/min >60 Apr 20, 2024 09:33 AM [place] LIVER FUNCTION Specimen Type: SERUM No comment entered. Ordering Provider: NEHEMIAH BOWERS Report Released Date/Time: Apr 15, 2024 02:47 PM Reporting Lab: [address] [address] Performing Lab: [address] [address] PROTEIN,TOTAL 6.6 g/dL 6.0-8.3 ALBUMIN 3.8 g/dL 3.5-5.0 ALKALINE PHOSPHATASE 111 U/L 40-150 AST 18 U/L 5-34 ALT 34 U/L BILIRUBIN, TOTAL 0.3 mg/dL 0.2-1.2 Apr 20, 2024 09:33 AM [place] CBC AND DIFF (AUTO) Specimen Type: BLOOD No comment entered. Ordering Provider: NEHEMIAH BOWERS Report Released Date/Time: Apr 15, 2024 02:47 PM Reporting Lab: [address] [address] Performing Lab: [address] [address] WBC 9.20 10*3/uL 4.50-11.00 RBC 3.75 10*6/uL [...] 10*3/uL 0.00-0.00 Apr 20, 2024 09:33 AM [place] FERRITIN Specimen Type: SERUM No comment entered. Ordering Provider: NEHEMIAH BOWERS Report Released Date/Time: Apr 20, 2024 09:28 AM Reporting Lab: [facility] [address] [facility] [address] Performing Lab: [facility] [address] [facility] [address] FERRITIN 63 ng/mL 20-300 Apr 20, 2024 09:33 AM [place] VITAMIN B12 Specimen Type: SERUM No comment entered. Ordering Provider: NEHEMIAH BOWERS Report Released Date/Time: Apr 20, 2024 09:28 AM Reporting Lab: [place] [address] [facility] [address] Performing Lab: [facility] W[facility]N [facility]ENTERUS[facility] [address] [facility] [address] VITAMIN B12 1032 pg/mL H 200-900 Apr 20, 2024 09:33 AM [place] IRON & TIBC PANEL Specimen Type: SERUM No comment entered. Ordering Provider: NEHEMIAH BOWERS Report Released Date/Time: Apr 20, 2024 09:28 AM Reporting Lab: [facility] W[facility]ENTER[facility]ETS [facility] [address] [facility] [address] Performing Lab: [facility]ITALTRN [facility]ENTERUSEADIRONDACK [facility] [address] [facility] [address] TIBC 360 ug/dL 204-475 IRON 25 ug/dL [...] 04, 2023 09:00 AM VA-TOBACCO [facility]USEADIROND[facility] Tobacco Use History This section includes a history of the smoking, or tobacco-related health factors, that were collected on or before the date of the Encounter. The data comes from the [place] facility where the Encounter took place. Date/Time Smoking Status/Tobacco Use Comment F [email or web address] Jul 04, 2023 09:00 AM VA-TOBACCO QUIT 15 YRS OR MORE [place] [facility] Mar 14, 2022 03:02 PM VA-TOBACCO FORMER USER [place] [facility] Mar 14, 2022 03:02 PM VA-TOBACCO QUIT 15 YRS OR MORE [place] [facility] Feb 08, 2021 09:00 AM VA-TOBACCO FORMER USER [place] [facility] Feb 08, 2021 09:00 AM VA-TOBACCO QUIT 15 [facility]RS OR [facility] October 09, 2019 01:12 PM VA-TOBACCO FORMER USER [facility] October 09, 2019 01:12 PM VA-TOBACCO QUIT 5 TO < 15 YRS [facility] Advance Directives: All historical and [...] 2021 ADVANCE DIRECTIVE BEL ESCALANTE [facility] Encounter Notes: All associated encounter notes This section contains the clinical notes associated to the Encounter. Date/Time Encounter Note(s) Provider Source Apr 26, 2024 09:16 AM ADMINISTRATIVE NOTE: LOCAL TITLE: CCC: SCHEDULING ADMINISTRATION STANDARD TITLE: ADMINISTRATIVE NOTE DATE OF NOTE: APR 26, 2024@09:16 ENTRY DATE: APR 26, 2024@09:16:24 AUTHOR: JOSE FLYNN EXP COSIGNER: URGENCY: STATUS: COMPLETED CCC: SCHEDULING ADMINISTRATION Has ADDENDA is requesting for provider to send him a blood pressure machine and a odometer. please call vet. for more details /reba MANCILLA 2 ARACELI AMSA Signed: 04/26/2024 09:17 Receipt Acknowledged By: 04/28/2024 16:18 /robe/ NATA MULLIGAN LPN LPN 05/12/2024 15:38 /robe/ CECILIO AL RN REGISTERED NURSE 04/28/2024 ADDENDUM STATUS: COMPLETED contacted, spoke with spouse - she reports patient is requesting a blood pressure kit, prosthetics consult was placed. /robe/ NATA MULLIGAN LPN LPN Signed: 04/28/2024 16:18 JOSE FLYNN [facility]
--- OUTSIDE RECORDS SUMMARY | 2024-05-28 13:57 | XMS_ITS | Encounter Summary ---
Author Name [place] Organization [place] Address [address] [place] [address] Care Team Providers Care Cell Operation Supervisor Name Role Phone NEHEMIAH CUEVAS Primary [...] to Policy [facility] Aug 11, 2014 [id number] [phone] DHAVAL SHAQ Wagner PATIENT ANA [facility] MEDICARE SUPPLEMEN [facility] Aug 11, 2014 [id number] [phone] DHAVAL SHAQ Wagner [facility] SUPPLEMEN ARTEMIO MEDEX 2 Aug 11, 2014 [id number] DHAVAL SHAQ Wagner PATIENT BCBS [place] MEDICARE SUPPLEMEN [facility]IO MEDEX 2 Aug 11, 2014 [id number] DHAVAL SHAQ Wagner PATIENT BCBS [place] MEDICARE SUPPLEMEN ARTEMIO MEDEX 2 Aug 11, 2014 [id number] ARCHAMBEA SHAQ Wagner PATIENT BCBS OF [facility] BLUECARD MEDICARE SUPPLEMEN [facility] GF Aug 11, 2014 [id number] ARCHAMBEA SHAQ Wagner PATIENT [place]BS [place] MEDICARE SUPPLEMEN [facility] GF Aug 11, 2014 [id number] ARCHOCTAVIOEA SHAQ Wagner PATIENT HUMANA [facility] (WNR) MEDICARE ADVANTAGE HUMAN A INSUR ANCE [facility] Jan 11, 2022 [id number] [phone] ARCHAMBEA SHAQ Wagner PATIENT HUMANA MCR (WNR) MEDICARE ADVANTAGE [facility] (WNR) Jan 11, 2022 [id number] [phone] ARCHAMBEA Bernard,SHAQ PATIENT MEDICARE (WNR) MEDICARE () PART A Dec 11, 2014 PART A [id number] ARCHAMBEA Bernard,SHAQ PATIENT MEDICARE (WNR) MEDICARE () PART A Aug 11, 2014 PART A [id number] [phone] ARCHAMBEA Bernard,SHAQ PATIENT MEDICARE (WNR) MEDICARE () PART B Aug 11, 2014 PART B [id number] ARCHAMBEA Bernard,SHAQ PATIENT MEDICARE (WNR) MEDICARE () PART A Aug 11, 2014 PART A [id number] ARCHAMBEA Bernard,SHAQ PATIENT MEDICARE (WNR) MEDICARE () PART B Aug 11, 2014 PART B [id number] ARCHAMBEA U,SHAQ PATIENT MEDICARE (WNR) MEDICARE () PART A Aug 11, 2014 PART A [id number] ARCHAMBEA U,SHAQ PATIENT MEDICARE (WNR) MEDICARE () PART B Aug 11, 2014 PART B [id number] ARCHAMBEA U,SHAQ PATIENT MEDICARE (WNR) MEDICARE () PART B Aug 11, 2014 PART B [id number] ARCHAMBEA Bernard,SHAQ PATIENT [facility] (WNR) MEDICARE ADVANTAGE [facility] (WNR) May 13, 2020 [id number] DHAVAL BernardSHAQ PATIENT Selected Encounter This section includes the information on record at [place] for the Encounter. Date/Time Encounter Type Encounter Description Reason Pro vider Source Jan 28, 2024 12:00 PM Outpatient Encounter COMMUNITY CARE CONSULT IHE Encounter Template Text not used by [place] Plan of Treatment: Future Appointments (+ 6 months) and Future Tests (+/- 45 days) The Plan of Treatment section includes future care activities for the patient from all [place] treatmentfacilities. This section includes future appointments and future orders which are active, pending or scheduled. Future Appointments This section includes appointments that were scheduled to occur 6 months from the date of the Encounter, up to a maximum of 20 appointments. The data comes from all [place] treatment facilities. Appointment Date/Time Appointment Type Appointme nt Facility Name Jan 30, 2024 07:30 AM AM[place]ULATORY [place]ICINE [place] [facility] [place] [facility] Mar 06, 2024 08:45 AM AMBULATORY [place] MEDICINE [place] [facility] [facility] Mar 11, 2024 08:30 AM AM[place]ORY - MEDICINE [place] Mar 16, 2024 08:30 AM AMBULATORY - MEDICINE [place] [facility] [place] [facility] Apr 07, 2024 10:00 AM AMBULATORY - MEDICINE [place] [place] [facility] Apr 20, 2024 08:30 AM AMBULATORY - MEDICINE [place] Apr 28, 2024 11:00 AM AMBULATORY - MEDICINE [place] [facility] [place] [facility] Jun 22, 2024 08:30 AM AMBULATORY - NONE [place] [facility] [place] [facility] Jul 03, 2024 08:30 AM AMBULATORY - MEDICINE [place] [facility] [place] [facility] Jul 10, 2024 09:00 AM AMBULATORY - [place]ICINE [place] Jul 22, 2024 08:00 AM [facility] - [facility]ICINE [facility] Lab Results: +/- 30 days [...] Range Comment Jan 24, 2024 08:23 AM [place] METHADONE SCREEN Specimen Type: URINE Comment: THIAGO test are qualitative, any L or H flags only indicate a [place] alert was sent. Ordering Provider: NEHEMIAH DAVIES Report Released Date/Time: Jan 22, 2024 11:28 AM Reporting Lab: [facility] [address] [facility] [address] Performing Lab: [facility] [address] [facility] [address] METHADONE SCREEN None detected(Nega tive) L Negative Jan 24, 2024 08:23 AM [place] ALCOHOL, ETHYL URINE PANEL Specimen Type: URINE [...] 11 may have been adulterated. Ordering Provider: ENHEMIAH DAVIES Report Released Date/Time: Jan 22, 2024 11:28 AM Reporting Lab: [facility] [address] [facility] [address] Performing Lab: [address] [address] ALCOHOL, ETHYL URINE NONE-DETECTED mg/dL NONE-DETEC SIRI, cutoff = 10 mg/dL PH, THIAGO 5.8 [pH] 4-10 CREATININE, THIAGO 29.33 mg/dL >20 SP.GRAVITY, THIAGO 1.009 1.00 3-1.02 0 Jan 24, 2024 08:23 AM [place] FENTANYL SCREEN PANEL Specimen Type: URINE Comment: [...] Jan 22, 2024 11:28 AM Reporting Lab: [address] [address] Performing Lab: [address] [address] FENTANYL SCREEN NONE-DETECTE D ng/mL Negative: Cutoff = 1.00 ng/mL PH, THIAGO 5.7 [pH] 4-10 CREATININE, THIAGO 29.05 mg/dL >20 SP.GRAVITY, THIAGO 1.010 1.00 3-1.02 0 Jan 24, 2024 08:23 AM [place] AMPHETAMINES SCREEN PANEL Specimen Type: URINE Comment: [...] Jan 22, 2024 11:28 AM Reporting Lab: [address] [address] Performing Lab: [address] [address] AMPHETAMINES SCREEN NONE-DETECTED None-Detec siri, Cutoff = 1000 ng/mL PH, THIAGO 5.8 [pH] 4-10 CREATININE, THIAGO 29.33 mg/dL >20 SP.GRAVITY, THIAGO 1.009 1.00 3-1.02 0 Jan 24, 2024 08:23 AM [place] BENZODIAZEPINES SCREEN PANEL Specimen Type: URINE Comment: [...] Jan 22, 2024 11:28 AM Reporting Lab: [address] [address] Performing Lab: [address] [address] BENZODIAZEPINES SCREEN NONE-DETECTED None-Detec siri, Cutoff = 200 ng/mL PH, THIAGO 5.8 [pH] 4-10 CREATININE, THIAGO 29.33 mg/dL >20 SP.GRAVITY, THIAGO 1.009 1.00 3-1.02 0 Jan 24, 2024 08:23 AM [place] BUPRENORPHINE SCREEN PANEL Specimen Type: URINE Comment: [...] Jan 22, 2024 11:28 AM Reporting Lab: [address] [address] Performing Lab: [address] [address] BUPRENORPHINE (URINE) NONE-DETECTED None Detected, Cutoff = 10.0 ng/mL PH, THIAGO 5.8 [pH] 4-10 CREATININE, THIAGO 29.33 mg/dL >20 SP.GRAVITY, THIAGO 1.009 1.00 3-1.02 0 Jan 24, 2024 08:23 AM [place] CANNABINOIDS SCREEN PANEL Specimen Type: URINE Comment: [...] Jan 22, 2024 11:28 AM Reporting Lab: [address] [address] Performing Lab: [address] [address] CANNABINOIDS SCREEN POSITIVE HH None-Detec siri,Cutoff = 50 ng/mL PH, THIAGO 5.8 [pH] 4-10 CREATININE, THIAGO 29.33 mg/dL >20 SP.GRAVITY, THIAGO 1.009 1.00 3-1.02 0 Jan 24, 2024 08:23 AM [place] COCAINE SCREEN PANEL Specimen Type: URINE Comment: [...] Jan 22, 2024 11:28 AM Reporting Lab: [address] [address] Performing Lab: [address] [address] COCAINE SCREEN NONE-DETECTED N one-Detec siri,Cutoff = 300 ng/mL PH, THIAGO 5.8 [pH] 4-10 CREATININE, THIAGO 29.33 mg/dL >20 SP.GRAVITY, THIAGO 1.009 1.00 3-1.02 0 Jan 24, 2024 08:23 AM [place] OPIATES SCREEN PANEL Specimen Type: URINE Comment: [...] Jan 22, 2024 11:28 AM Reporting Lab: [address] [address] Performing Lab: [address] [address] OPIATES SCREEN NONE-DETECTED N one-Detec siri, Cutoff = 300 ng/mL PH, THIAGO 5.8 [pH] 4-10 CREATININE, THIAGO 29.33 mg/dL >20 SP.GRAVITY, THIAGO 1.009 1.00 3-1.02 0 Jan 24, 2024 08:23 AM [place] OXYCODONE SCREEN PANEL Specimen Type: URINE Comment: [...] Jan 22, 2024 11:28 AM Reporting Lab: [address] [address] Performing Lab: [address] [address] OXYCODONE SCREEN POSITIVE HH Non e-Detec siri, Cutoff = 100 ng/mL PH, THIAGO 5.8 [pH] 4-10 CREATININE, THIAGO 29.33 mg/dL >20 SP.GRAVITY, THIAGO 1.009 1.00 3-1.02 0 Dec 30, 2023 08:44 AM [place] MAGNESIUM Specimen Type: SERUM No comment entered. Ordering Provider: NEHEMIAH DAVIES Report Released Date/Time: Jul 04, 2023 09:50 AM Reporting Lab: [facility] [address] [facility] [address] Performing Lab: [facility] [address] [facility] [address] MAGNESIUM 1.9 mg/dL 1.6-2.6 Dec 30, 2023 08:44 AM [place] PSA Specimen Type: SERUM No comment entered. Ordering Provider: NEHEMIAH DAVIES Report Released Date/Time: Jul 04, 2023 09:50 AM Reporting Lab: [facility] [address] [facility] [address] Performing Lab: [facility] [address] [address] PSA 0.26 ng/mL 0.00-4.00 Dec 30, 2023 08:44 AM [place] TSH Specimen Type: SERUM No comment entered. Ordering Provider: NEHEMIAH DAVIES Report Released Date/Time: Jul 04, 2023 09:50 AM Reporting Lab: [facility] [address] [facility] [address] Performing Lab: [facility] [address] [facility] [address] TSH 0.57 u[IU]/mL 0.35-5.00 Dec 30, 2023 08:44 AM [place] LIPID PANEL FASTING Specimen Type: SERUM No comment entered. Ordering Provider: NEHEMIAH DAVIES Report Released Date/Time: Jul 04, 2023 09:50 AM Reporting Lab: [facility] [address] [address] Performing Lab: [facility] [address] [address] CHOLESTEROL 159 mg/dL TRIGLYCERIDE 76 mg/dL 0-150 LDL calculated 66 mg/dL 0-129 CHOL/HDL 2.0 HDL CHOLESTEROL 78 mg/dL H 40-60 Dec 30, 2023 08:44 AM [place] BASIC METABOLIC PANEL (fasting) Specime n Type: SERUM No comment entered. Ordering Provider: NEHEMIAH DAVIES Report Released Date/Time: Jul 04, 2023 09:50 AM Reporting Lab: [address] [address] Performing Lab: [address] [address] UREA NITROGEN 13 mg/dL 7-25 GLUCOSE 100 mg/dL 65-100 SODIUM 136 mmol/L 135-145 POTASSIUM 4.5 mmol/L 3.5-5.0 CHLORIDE 102 mmol/L 100-110 CO2 26 meq/L 20-30 CREATININE, Serum 0.96 mg/dL 0.50-1.40 eGFR(CKD-EPI 2020) 83 mL/min >60 Dec 30, 2023 08:44 AM [place] LIVER FUNCTION Specimen Type: SERUM No comment entered. Ordering Provider: NEHEMIAH DAVIES Report Released Date/Time: Jul 04, 2023 09:50 AM Reporting Lab: [address] [address] Performing Lab: [address] [address] PROTEIN,TOTAL 6.4 g/dL 6.0-8.3 ALBUMIN 4.0 g/dL 3.5-5.0 ALKALINE PHOSPHATASE 64 U/L 40-150 AST 17 U/L 5-34 ALT 19 U/L BILIRUBIN, TOTAL 0.5 mg/dL 0.2-1.2 Dec 30, 2023 08:44 AM [place] HEMOGLOBIN A1C PANEL Specimen Type: BLOOD Comment: [...] Jul 04, 2023 09:50 AM Reporting Lab: [address] [address] Performing Lab: [place] [address] [facility] [address] HEMOGLOBIN A1C 4.9 4.0-5.6 Dec 30, 2023 08:44 AM [place] CBC AND DIFF (AUTO) Specimen Type: BLOOD No comment entered. Ordering Provider: NEHEMIAH DAVIES Report Released Date/Time: Jul 04, 2023 09:50 AM Reporting Lab: [facility] [address] [facility] [address] Performing Lab: [address] [address] WBC 6.84 10*3/uL 4.50-11.00 RBC 4.52 10*6/uL [...] 04, 2023 09:00 AM VA-TOBACCO [facility] Tobacco Use History This section includes a history of the smoking, or tobacco-related health factors, that were collected on or before the date of the Encounter. The data comes from the [place] facility where the Encounter took place. Date/Time Smoking Status/Tobacco Use Comment Joselyn blas Jul 04, 2023 09:00 AM VA-TOBACCO QUIT 15 YRS OR MORE [place] [facility] [place] [facility] Mar 14, 2022 03:02 PM VA-TOBACCO FORMER USER [place] [facility] [place] [facility] Mar 14, 2022 03:02 PM VA-TOBACCO QUIT 15 YRS OR MORE [place] [facility] [place] [facility] Feb 08, 2021 09:00 AM VA-TOBACCO FORMER USER [place] [facility] [place] [facility] Feb 08, 2021 09:00 AM VA-TOBACCO QUIT 15 YRS OR MORE [place] [facility] [place] [facility] October 09, 2019 01:12 PM VA-TOBACCO FORMER USER [place] [facility] [place] [facility] October 09, 2019 01:12 PM VA-TOBACCO QUIT 5 TO < 15 YRS [place] [facility] [place] [facility] Advance Directives: All historical and [...] Feb 21, 2021 ADVANCE DIRECTIVE BEL ESCALANTE [facility] Encounter Notes: All associated encounter notes This section contains the clinical notes associated to the Encounter. Date/Time Encounter Note(s) Provider Source Jan 28, 2024 12:00 PM NONVA CONSULT: LOCAL TITLE: COMMUNITY CARE-CONSULT RESULT NOTE STANDARD TITLE: NONVA CONSULT DATE OF NOTE: JAN 28, 2024@12:00 ENTRY DATE: MAY 12, 2024@11:24:19 AUTHOR: SENDY DEXTER EXP COSIGNER: URGENCY: STATUS: COMPLETED VistA Imaging - Scanned Document SCANNED DOCUMENT SIGNATURE NOT REQUIRED Electronically Filed: 05/12/2024 by: SENDY DEXTER NURSE PRACTITIONER HOME ASSESSMENTS SENDY DEXTER [place] [facility]
--- OUTSIDE RECORDS SUMMARY | 2024-05-28 13:57 | XMS_ITS | Encounter Summary ---
Author Name [facility] [place] Organization [place] Address [address] [place] [address] Care Team Providers Care Refuge Manager Name Role Phone NEHEMIAH CUEVAS Primary [...] Name Patient's Relationship to Policy Orellana ANA [facility] Aug 11, 2014 [id number] DHAVAL SHAQ Wagner PATIENT ANA BCBS [facility] MEDICARE SUPPLEMEN [facility]EMIO [facility] Aug 11, 2014 [id number] DHAVAL SHAQ Wagner [facility] MED[facility] SUPPLEMEN ARTEMIO MEDEX 2 Aug 11, 2014 [id number] [phone] DHAVAL SHAQ Wagner PATIENT [place] MED[place] SUPPLEMEN ART[facility]IO MEDEX 2 Aug 11, 2014 [id number] DHAVAL SHAQ Wagner [place] SUPPLEMEN ART[facility]IO MEDEX 2 Aug 11, 2014 [id number] ARCHAMBEA SHAQ Wagner PATIENT BCBS OF [facility] BLUECARD MEDICARE SUPPLEMEN [facility] [place] [facility] GF Aug 11, 2014 [id number] [phone] ARCHAMBEA SHAQ Wagner PATIENT [place]BS [place] MEDICARE SUPPLEMEN [place]IO [place] [facility] GF Aug 11, 2014 [id number] [phone] ARCHAMBEA SHAQ Wagner PATIENT HUMANA [facility] (WNR) MEDICARE ADVANTAGE HUMAN A INSUR ANCE [facility] Jan 11, 2022 [id number] [phone] ARCHAMBEA SHAQ Wagner PATIENT HUMANA MCR (WNR) MEDICARE ADVANTAGE MCR (WNR) Jan 11, 2022 [id number] [phone] ARCHAMBEA Bernard,SHAQ PATIENT MEDICARE (WNR) MEDICARE () PART A Dec 11, 2014 PART A [id number] [phone] ARCHAMBEA Bernard,SHAQ PATIENT MEDICARE (WNR) MEDICARE () PART A Aug 11, 2014 PART A [id number] ARCHAMBEA U,SHAQ PATIENT MEDICARE (WNR) MEDICARE () PART B Aug 11, 2014 PART B [id number] ARCHAMBEA U,SHAQ PATIENT MEDICARE (WNR) MEDICARE () PART A Aug 11, 2014 PART A [id number] ARCHAMBEA U,SHAQ PATIENT MEDICARE (WNR) MEDICARE () PART B Aug 11, 2014 PART B [id number] ARCHAMBEA U,SHAQ PATIENT MEDICARE (WNR) MEDICARE () PART A Aug 11, 2014 PART A [id number] [phone] ARCHAMBEA U,SHAQ PATIENT MEDICARE (WNR) MEDICARE () PART B Aug 11, 2014 PART B [id number] [phone] ARCHAMBEA U,SHAQ PATIENT MEDICARE (WNR) MEDICARE () PART B Aug 11, 2014 PART B [id number] ARCHAMBEA U,SHAQ PATIENT [facility] (WNR) MEDICARE ADVANTAGE [facility] (WNR) May 13, 2020 [id number] SHAQ WONG PATIENT Selected Encounter This section includes the information on record at [place] for the Encounter. Date/Time Encounter Type Encounter Description Reason Pro vider Source May 08, 2024 08:40 PM Outpatient Encounter ADMIN PAT ACTIVTIES (MASNONCT) IHE Encounter Template Text not used by [place] Plan of Treatment: Future Appointments (+ 6 months) and Future Tests (+/- 45 days) The Plan of Treatment section includes future care activities for the patient from all [place] treatmentfacilities. This section includes future appointments and future orders which are active, pending or scheduled. Future Appointments This section includes appointments that were scheduled to occur 6 months from the date of the Encounter, up to a maximum of 20 appointments. The data comes from all [place] treatment facilities. Appointment Date/Time Appointment Type Appointme nt Facility Name Jun 22, 2024 08:30 AM [facility] Jul 03, 2024 08:30 AM AMBULATORY - MEDICINE [facility] Jul 10, 2024 09:00 AM [facility] Jul 22, 2024 08:00 AM [...] of theEncounter. The data comes from all [place] treatment facilities. Test Date/Time Test Type Test Details Facility Name Apr 20, 2024 01:10 PM Consult Order COMMUNITY CARE-UROLOGY Cons [facility] May 12, 2024 02:53 PM Consult Order COMMUNITY CARE-DENTAL GENERAL Cons [facility] Lab Results: +/- 30 days [...] Range Comment Apr 20, 2024 09:33 AM [place] LIPID PANEL FASTING Specimen Type: SERUM No comment entered. Ordering Provider: NEHEMIAH BOWERS Report Released Date/Time: Apr 15, 2024 02:47 PM Reporting Lab: [facility] [address] [facility] [address] Performing Lab: [address] [address] CHOLESTEROL 118 mg/dL TRIGLYCERIDE 58 mg/dL 0-150 LDL calculated 55 mg/dL 0-129 CHOL/HDL 2.3 HDL CHOLESTEROL 51 mg/dL 40-60 Apr 20, 2024 09:33 AM [place] BASIC METABOLIC PANEL (fasting) Specime n Type: SERUM No comment entered. Ordering Provider: NEHEMIAH BOWERS Report Released Date/Time: Apr 15, 2024 02:47 PM Reporting Lab: [facility] [address] [facility] [address] Performing Lab: [facility] [address] [facility] [address] UREA NITROGEN 13 mg/dL 7-25 GLUCOSE 105 mg/dL H 65-100 SODIUM 136 mmol/L 135-145 POTASSIUM 4.9 mmol/L 3.5-5.0 CHLORIDE 101 mmol/L 100-110 CO2 25 meq/L 20-30 CREATININE, Serum 1.04 mg/dL 0.50-1.40 eGFR(CKD-EPI 2020) 75 mL/min >60 Apr 20, 2024 09:33 AM [place] LIVER FUNCTION Specimen Type: SERUM No comment entered. Ordering Provider: NEHEMIAH BOWERS Report Released Date/Time: Apr 15, 2024 02:47 PM Reporting Lab: [facility] [address] [facility] [address] Performing Lab: [address] [address] PROTEIN,TOTAL 6.6 g/dL 6.0-8.3 ALBUMIN 3.8 g/dL 3.5-5.0 ALKALINE PHOSPHATASE 111 U/L 40-150 AST 18 U/L 5-34 ALT 34 U/L BILIRUBIN, TOTAL 0.3 mg/dL 0.2-1.2 Apr 20, 2024 09:33 AM [place] HEMOGLOBIN A1C PANEL Specimen Type: BLOOD Comment: [...] Apr 15, 2024 02:47 PM Reporting Lab: [address] [address] Performing Lab: [address] [address] HEMOGLOBIN A1C 5.1 4.0-5.6 Apr 20, 2024 09:33 AM [place] TSH Specimen Type: SERUM No comment entered. Ordering Provider: NEHEMIAH BOWERS Report Released Date/Time: Apr 15, 2024 02:47 PM Reporting Lab: [address] [address] Performing Lab: [address] [address] TSH 2.13 u[IU]/mL 0.35-5.00 Apr 20, 2024 09:33 AM [place] CBC AND DIFF (AUTO) Specimen Type: BLOOD No comment entered. Ordering Provider: NEHEMIAH BOWERS Report Released Date/Time: Apr 15, 2024 02:47 PM Reporting Lab: [address] [address] Performing Lab: [address] [address] WBC 9.20 10*3/uL 4.50-11.00 RBC 3.75 10*6/uL [...] 10*3/uL 0.00-0.00 Apr 20, 2024 09:33 AM [place] FERRITIN Specimen Type: SERUM No comment entered. Ordering Provider: NEHEMIAH BOWERS Report Released Date/Time: Apr 20, 2024 09:28 AM Reporting Lab: [address] [address] Performing Lab: [address] [address] FERRITIN 63 ng/mL 20-300 Apr 20, 2024 09:33 AM [place] IRON & TIBC PANEL Specimen Type: SERUM No comment entered. Ordering Provider: NEHEMIAH BOWERS Report Released Date/Time: Apr 20, 2024 09:28 AM Reporting Lab: [facility] [address] [address] Performing Lab: [place] [facility] [place] [facility] [address] [facility] [address] TIBC 360 ug/dL 204-475 IRON 25 ug/dL L 40-160 Transferrin Saturation 6.9 L 20.0-50.0 Transferrin (TRF) 273 mg/dL 200-360 Apr 20, 2024 09:33 AM [place] VITAMIN B12 Specimen Type: SERUM No comment entered. Ordering Provider: NEHEMIAH BOWERS Report Released Date/Time: Apr 20, 2024 09:28 AM Reporting Lab: [facility] [address] [facility] [address] Performing Lab: [facility] [address] [facility] [address] VITAMIN B12 1032 pg/mL H 200-900 Social [...] USER [facility] Tobacco Use History This section includes a history of the smoking, or tobacco-related health factors, that were collected on or before the date of the Encounter. The data comes from the [place] facility where the Encounter took place. Date/Time Smoking Status/Tobacco Use Comment F acdaniel Jul 04, 2023 09:00 AM VA-TOBACCO QUIT 15 YRS OR MORE [place] [facility] [place] [facility] Mar 14, 2022 03:02 PM VA-TOBACCO FORMER USER [place] [facility] [place] [facility] Mar 14, 2022 03:02 PM VA-TOBACCO QUIT 15 YRS OR MORE [place] [facility] [place] [facility] Feb 08, 2021 09:00 AM VA-TOBACCO FORMER USER [place] [facility] [place] [facility] Feb 08, 2021 09:00 AM VA-TOBACCO QUIT 15 YRS OR MORE [place] [facility] [place] [facility] October 09, 2019 01:12 PM VA-TOBACCO FORMER USER [facility] October 09, 2019 01:12 PM VA-TOBACCO QUIT 5 TO < 15 YRS [facility] Advance Directives: All historical and current Section [...] 21, 2021 ADVANCE DIRECTIVE BEL ESCALANTE [facility] Encounter Notes: All associated encounter notes This section contains the clinical notes associated to the Encounter. Date/Time Encounter Note(s) Provider Source May 08, 2024 08:40 PM PHARMACY NOTE: LOCAL TITLE: PHARMACY CUSTOMER CARE MEDICATION RENEWAL STANDARD TITLE: PHARMACY NOTE DATE OF NOTE: MAY 08, 2024@20:40 ENTRY DATE: MAY 08, 2024@20:40:10 AUTHOR: FRIDA MAR EXP COSIGNER: URGENCY: STATUS: COMPLETED Date: Apr Division: [facility] referred by Pharmacy Call Center for medication renewal: Controlled substance Medications requested: [id number] OXYCODONE HCL 5MG/APAP 325MG TAB Defer to primary care provider To be mailed . Please review and renew if appropriate. *This note was generated by [facility] Pharmacy Customer Care. If you have any questions or need assistance, do not contact this author. Please refer all questions to your local, on-site pharmacy departments. /robe/ FRIDA MAR CPhT [employer] Supervisor, [place]/Pharmacy Customer Care Signed: 05/08/2024 20:40 Receipt Acknowledged By: 05/09/2024 18:16 /es/ NEHEMIAH CUEVAS MD PHYSICIAN 05/12/2024 15:45 /robe/ CECILIO AL RN REGISTERED NURSE FRIDA MAR [facility]
--- OUTSIDE RECORDS SUMMARY | 2024-05-28 13:57 | XMS_ITS ---
Author Name [facility] [place] Organization [place] Address [address] [place] [id number] Care Team Providers Care Geodetic Surveyor Technologist Name Role Phone NEHEMIAH CUEVAS Primary Care [...] to Policy [facility]rell[facility] Aug 11, 2014 [id number] DHAVAL SHAQ Wagner [facility] Aug 11, 2014 [id number] DHAVAL SHAQ Wagner [facility] SUPPLEMEN ARTEMIO MEDEX 2 Aug 11, 2014 [id number] DHAVAL SHAQ Wagner PATIENT [place] SUPPLEMEN ARTEMIO MEDEX 2 Aug 11, 2014 [id number] [phone] DHAVAL SHAQ Wagner PATIENT [place] SUPPLEMEN ARTEMIO MEDEX 2 Aug 11, 2014 [id number] [phone] ARCHAMBEA SHAQ Wagner PATIENT BCBS OF [facility] MEDICARE SUPPLEMEN [facility] GF Aug 11, 2014 [id number] [phone] ARCHAMBEA SHAQ Wagner PATIENT [place] MEDICARE SUPPLEMEN ARTEMIO [facility] GF Aug 11, 2014 [id number] ARCHAMBEA SHAQ Wagner PATIENT HUMANA [facility] (WNR) MEDICARE ADVANTAGE [facility] (WNR) Jan 11, 2022 [id number] [phone] ARCHAMBEA Bernard,SHAQ PATIENT HUMANA [facility] (WNR) MEDICARE ADVANTAGE HUMAN A INSUR ANCE [facility] Jan 11, 2022 [id number] [phone] ARCHAMBEA Bernard,SHAQ PATIENT MEDICARE ([place]) MEDICARE () PART A Dec 11, 2014 PART A [id number] ARCHAMBEA Bernard,SHAQ PATIENT MEDICARE ([place]) MEDICARE () PART A Aug 11, 2014 PART A [id number] ARCHAMBEA U,SHAQ PATIENT MEDICARE ([place]) MEDICARE () PART B Aug 11, 2014 PART B [id number] ARCHAMBEA U,SHAQ PATIENT MEDICARE ([place]) MEDICARE () PART A Aug 11, 2014 PART A [id number] ARCHAMBEA Bernard,SHAQ PATIENT MEDICARE ([place]) MEDICARE () PART B Aug 11, 2014 PART B [id number] ARCHAMBEA U,SHAQ PATIENT MEDICARE ([place]) MEDICARE () PART A Aug 11, 2014 PART A [id number] [phone] ARCHAMBEA U,SHAQ PATIENT MEDICARE ([place]) MEDICARE () PART B Aug 11, 2014 PART B [id number] [phone] ARCHAMBEA U,SHAQ PATIENT MEDICARE ([place]NR) MEDICARE () PART B Aug 11, 2014 PART B [id number] ARCHAMBEA Bernard,SHAQ PATIENT [facility] (WNR) MEDICARE ADVANTAGE [facility] (WNR) May 13, 2020 [id number] DHAVAL BernardSHAQ PATIENT Selected Encounter This section includes the information on record at [place] for the Encounter. Date/Time Encounter Type Encounter Description Reason Pro vider Source Mar 16, 2024 12:00 AM Outpatient Encounter COMMUNITY CARE CONSULT IHE Encounter Template Text not used by [facility] Plan of Treatment: Future Appointments (+ 6 months) and Future Tests (+/- 45 days) The Plan of Treatment section includes future care activities for the patient from all [place] [facility] This section includes future appointments and future orders which are active, pending or scheduled. Future Appointments This section includes appointments that were scheduled to occur 6 months from the date of the Encounter, up to a maximum of 20 appointments. The data comes from all [facility]. Appointment Date/Time Appointment Type Appointme nt Facility Name Apr 07, 2024 10:00 AM AMBULATORY - MEDICINE [place] [facility] Apr 20, 2024 08:30 AM [facility] Apr 28, 2024 11:00 AM AMBULATORY - MEDICINE [place] [facility] Jun 22, 2024 08:30 AM AMBULATORY - NONE [place] [facility] [place] [place] [facility] Jul 03, 2024 08:30 AM AMBULATORY - MEDICINE [place] [facility] Jul 10, 2024 09:00 AM AMBULATORY - [place]ICINE [place] Jul 22, 2024 08:00 AM [facility] Active, Pending, and Scheduled Orders This section includes a listing of several types of active, pending, and scheduled orders, including clinic medications orders, diagnostic test orders, procedure orders and consult orders; where the start date of the order is 45 days before the date of the Encounter or 45 days after the date of theEncounter. The data comes from all [facility]. Test Date/Time Test Type Test Details Facility Name Apr 20, 2024 01:10 PM Consult Order COMMUNITY CARE-UROLOGY Cons [facility] Social History: Smoking Status (Most current) and [...] 04, 2023 09:00 AM VA-TOBACCO [facility] Tobacco Use History This section includes a history of the smoking, or tobacco-related health factors, that were collected on or before the date of the Encounter. The data comes from the [place] facility where the Encounter took place. Date/Time Smoking Status/Tobacco Use Comment Joselyn blas Jul 04, 2023 09:00 AM VA-TOBACCO QUIT 15 YRS OR MORE [place] [facility] [place] [facility] Mar 14, 2022 03:02 PM VA-TOBACCO FORMER USER [place] [facility] [place] [facility] Mar 14, 2022 03:02 PM VA-TOBACCO QUIT 15 YRS OR MORE [place] [facility] [place] [facility] Feb 08, 2021 09:00 AM VA-TOBACCO FORMER USER [place] [facility] [place] [facility] Feb 08, 2021 09:00 AM VA-TOBACCO QUIT 15 YRS OR MORE [place] [facility] [place] [facility] October 09, 2019 01:12 PM VA-TOBACCO FORMER USER [place] [facility] [place] [facility] October 09, 2019 01:12 PM VA-TOBACCO QUIT 5 TO < 15 YRS [place] [facility] Advance [...] 2021 ADVANCE DIRECTIVE BEL ESCALANTE [facility] Encounter Notes: All associated encounter notes This section contains the clinical notes associated to the Encounter. Date/Time Encounter Note(s) Provider Source Mar 16, 2024 12:00 AM NONVA CONSULT: LOCAL TITLE: COMMUNITY CARE-CONSULT RESULT NOTE STANDARD TITLE: NONVA CONSULT DATE OF NOTE: MAR 16, 2024 ENTRY DATE: MAY 28, 2024@08:56:09 AUTHOR: HUARD,RICHIE R EXP COSIGNER: URGENCY: STATUS: COMPLETED VistA Imaging - Scanned Document SCANNED DOCUMENT SIGNATURE NOT REQUIRED Electronically Filed: 05/28/2024 by: RICHIE COYLE [facility]
--- OUTSIDE RECORDS SUMMARY | 2024-05-28 13:57 | XMS_ITS ---
Author Name [facility] [place] Organization [place] Address [address] [place] [address] Care Team Providers Care Cut Order Hand Name Role Phone NEHEMIAH CUEVAS Primary [...] Name Patient's Relationship to Policy [facility] Aug 11, 2014 [id number] DHAVAL SHAQ Wagner PATIENT ANA BCBS [facility] MEDICARE SUPPLEMEN ARTEMIO [facility] Aug 11, 2014 [id number] DHAVAL SHAQ Wagner PATIENT [place] MEDICARE SUPPLEMEN ARTEMIO MEDEX 2 Aug 11, 2014 [id number] DHAVAL SHAQ Wagner PATIENT [place] MED[place] SUPPLEMEN ARTEMIO MEDEX 2 Aug 11, 2014 [id number] [phone] ARCHSTEPHANIA SHAQ Wagner PATIENT [place] MED[place] SUPPLEMEN ARTEMIO MEDEX 2 Aug 11, 2014 [id number] ARCHAMBEA SHAQ Wagner PATIENT BCBS OF [facility] MEDICARE SUPPLEMEN ARTEMIO [facility] GF Aug 11, 2014 [id number] ARCHAMBEA SHAQ Wagner PATIENT [place] MEDICARE SUPPLEMEN ARTEMIO [facility] GF Aug 11, 2014 [id number] ARCHOCTAVIOEA SHAQ Wagner PATIENT HUMANA [facility] (WNR) MEDICARE ADVANTAGE HUMAN A INSUR ANCE [facility] Jan 11, 2022 [id number] [phone] ARCHAMBEA Bernard,SHAQ PATIENT HUMANA [facility] (WNR) MEDICARE ADVANTAGE [facility] (R) Jan 11, 2022 [id number] [phone] ARCHAMBEA Bernard,SHAQ PATIENT MEDICARE (WNR) MEDICARE () PART A Dec 11, 2014 PART A [id number] ARCHAMBEA Bernard,SHAQ PATIENT MEDICARE (WNR) MEDICARE () PART A Aug 11, 2014 PART A [id number] ARCHAMBEA U,SHAQ PATIENT MEDICARE (WNR) MEDICARE () PART B Aug 11, 2014 PART B [id number] ARCHAMBEA U,SHAQ PATIENT MEDICARE (WNR) MEDICARE () PART A Aug 11, 2014 PART A [id number] ARCHAMBEA Bernard,SHAQ PATIENT MEDICARE (WNR) MEDICARE () PART B Aug 11, 2014 PART B [id number] ARCHAMBEA U,SHAQ PATIENT MEDICARE (WNR) MEDICARE () PART A Aug 11, 2014 PART A [id number] [phone] ARCHAMBEA U,SHAQ PATIENT MEDICARE (WNR) MEDICARE () PART B Aug 11, 2014 PART B [id number] ARCHAMBEA U,SHAQ PATIENT MEDICARE (WNR) MEDICARE () PART B Aug 11, 2014 PART B [id number] ARCHAMBEA Bernard,SHAQ PATIENT [facility] (WNR) MEDICARE ADVANTAGE [facility] (WNR) May 13, 2020 [id number] DHAVAL BernardSHAQ PATIENT Selected Encounter This section includes the information on record at [place] for the Encounter. Date/Time Encounter Type Encounter Description Reason Pro vider Source May 25, 2024 08:12 AM Outpatient Encounter PM&RS PHYSICIAN IHE Encounter Template Text not used by [place] Plan of Treatment: Future Appointments (+ 6 months) and Future Tests (+/- 45 days) The Plan of Treatment section includes future care activities for the patient from all [place] [facility]. This section includes future appointments and [...] 2024 08:30 AM [facility] Jul 03, 2024 08:30 AM AMBULATORY - MEDICINE [place] [facility] Jul 10, 2024 09:00 AM [...] The data comes from all [place] treatment [facility]. Test Date/Time Test Type Test Details Facility Name Apr 20, 2024 01:10 PM Consult Order COMMUNITY CARE-UROLOGY Cons Remote Encoding Center Manager's Choice [place] May 12, 2024 02:53 PM Consult Order COMMUNITY CARE-DENTAL GENERAL Cons Remote Encoding Center [facility] Jun 27, 2024 12:00 AM Laboratory - Chemistry Order CBC AND DIFF (AUTO) BLOOD (LAV-BLOOD) [facility] Jun 27, 2024 12:00 AM Laboratory - Chemistry Order IRON & TIBC PANEL BLOOD (SST-SERUM) [facility] Jun 27, 2024 12:00 AM Laboratory - Chemistry Order RETICULOCYTES BLOOD ([facility] 12:00 AM Laboratory - Chemistry Order FERRITIN BLOOD (SST-SERUM) [facility] Social History: Smoking Status (Most current) [...] 04, 2023 09:00 AM VA-TOBACCO FORMER USER [facility] Tobacco Use History This section includes a history of the smoking, or tobacco-related health factors, that were collected on or before the date of the Encounter. The data comes from the [place] facility where the Encounter took place. Date/Time Smoking Status/Tobacco Use Comment F acdaniel Jul 04, 2023 09:00 AM VA-TOBACCO QUIT 15 YRS OR MORE [place] [facility] [facility] Mar 14, 2022 03:02 PM VA-TOBACCO FORMER USER [place] [facility] [place] [facility] Mar 14, 2022 03:02 PM VA-TOBACCO QUIT 15 YRS OR MORE [place] [facility] [place] [facility] Feb 08, 2021 09:00 AM VA-TOBACCO FORMER USER [place] [facility] [place] [facility] Feb 08, 2021 09:00 AM VA-TOBACCO QUIT 15 YRS OR MORE [place] [facility] [place] [facility] October 09, 2019 01:12 PM VA-TOBACCO FORMER USER [place] [facility] [place] [facility] October 09, 2019 01:12 PM VA-TOBACCO QUIT 5 TO < 15 YRS [place] [facility] Advance Directives: All historical and current Section [...] Feb 21, 2021 ADVANCE DIRECTIVE BEL ESCALANTE [facility] Encounter Notes: All associated encounter notes This section contains the clinical notes associated to the Encounter. Date/Time Encounter Note(s) Provider Source May 25, 2024 08:12 AM TELEPHONE ENCOUNTE R NOTE: LOCAL TITLE: TELEPHONE NOTE/SPECIALTY CLINIC STANDARD TITLE: TELEPHONE ENCOUNTER NOTE DATE OF NOTE: MAY 25, 2024@08:12 ENTRY DATE: MAY 25, 2024@08:12:37 AUTHOR: TELMA CERVANTES EXP COSIGNER: URGENCY: STATUS: COMPLETED TELEPHONE NOTE/SPECIALTY CLINIC Has ADDENDA [place] called stating he had been in the hospital and wanted to talk to someone before he reschedules any appts. Veterans phone number on file has been confirmed. He would like to be called on his cell phone. /reba CERVANTES SLOT SHIFT SUPERVISOR Signed: 05/25/2024 08:14 Receipt Acknowledged By: 05/26/2024 14:15 /reba Willson RN Med Rehab * AWAITING SIGNATURE * EMILY COHEN 05/26/2024 ADDENDUM STATUS: COMPLETED Left message to return call. /reba Willson RN Med Rehab Signed: 05/26/2024 10:53 05/26/2024 ADDENDUM STATUS: COMPLETED Spoke to , he is having a lot of left hip pain, wants to see Emily, asked if he wanted to be schedule for SI injection but he states he wants to see Emily first. Appt made for 07/03@830am, will call if earlier appt available. /reba Willson RN Med Rehab Signed: 05/26/2024 14:15 TELMA CERVANTES [facility]
--- OUTSIDE RECORDS SUMMARY | 2024-05-28 13:57 | XMS_ITS | Encounter Summary ---
Author Name [facility] [place] [facility] [place] Address [address] [place] [address] Care Team Providers Care Diet Aid Name Role Phone NEHEMIAH CUEVAS Primary Care [...] Name Patient's Relationship to Policy Orellana ANA [facility] Aug 11, 2014 [id number] DHAVAL SHAQ Wagner PATIENT ANA BCBS [facility] MEDICARE SUPPLEMEN ARTEMIO [facility] Aug 11, 2014 [id number] DHAVAL SHAQ [facility] SUPP[facility] ARTEMIO MEDEX 2 Aug 11, 2014 [id number] DHAVAL SHAQ [place] ART[place]IO MEDEX 2 Aug 11, 2014 [id number] DHAVAL SHAQ Wagner [place] ARTEMIO MEDEX 2 Aug 11, 2014 [id number] [phone] [place] SHAQ Wagner PATIENT BCBS OF [facility] BLUECARD MEDICARE SUPPLEMEN ARTEMIO [facility] GF Aug 11, 2014 [id number] [phone] [place] SHAQ Wagner PATIENT [place] (BLU[place]ARD) MEDICARE SUPPLEMEN ARTEMIO [facility] GF Aug 11, 2014 [id number] [phone] ARCHAMBEA Bernard,SHAQ PATIENT HUMANA MCR (WNR) MEDICARE ADVANTAGE [facility] (WNR) Jan 11, 2022 [id number] [phone] ARCHAMBEA Bernard,SHAQ PATIENT HUMANA [facility] (WNR) MEDICARE ADVANTAGE HUMAN A INSUR ANCE [facility] Jan 11, 2022 [id number] [phone] ARCHAMBEA Bernard,SHAQ PATIENT MEDICARE (WNR) MEDICARE () PART A Dec 11, 2014 PART A [id number] ARCHAMBEA U,SHAQ PATIENT MEDICARE (WNR) MEDICARE () PART A Aug 11, 2014 PART A [id number] ARCHAMBEA U,SHAQ PATIENT MEDICARE (WNR) MEDICARE () PART B Aug 11, 2014 PART B [id number] ARCHAMBEA U,SHAQ PATIENT MEDICARE (WNR) MEDICARE () PART A Aug 11, 2014 PART A [id number] [phone] ARCHAMBEA U,SHAQ PATIENT MEDICARE (WNR) MEDICARE () PART B Aug 11, 2014 PART B [id number] ARCHAMBEA U,SHAQ PATIENT MEDICARE (WNR) MEDICARE () PART A Aug 11, 2014 PART A [id number] [phone] ARCHAMBEA U,SHAQ PATIENT MEDICARE (WNR) MEDICARE () PART B Aug 11, 2014 PART B [id number] ARCHAMBEA U,SHAQ PATIENT MEDICARE (WNR) MEDICARE () PART B Aug 11, 2014 PART B [id number] [phone] ARCHAMBEA U,SHAQ PATIENT [facility] (WNR) MEDICARE ADVANTAGE [facility] (WNR) May 13, 2020 [id number] SHAQ WONG PATIENT Selected Encounter This section includes the information on record at [place] for the Encounter. Date/Time Encounter Type Encounter Description Reason Pro vider Source May 04, 2024 07:10 PM Outpatient Encounter ADMIN PAT ACTIVTIES (MASNONCT) IHE Encounter Template Text not used by [place] Plan of Treatment: Future Appointments (+ 6 months) and Future Tests (+/- 45 days) The Plan of Treatment section includes future care activities for the patient from all [place] treatmentfacilities. This section includes future appointments and future orders which are active, pending or scheduled. Future Appointments This section includes appointments that were scheduled to occur 6 months from the date of the Encounter, up to a maximum of 20 appointments. The data comes from all [place] treatment facilities. Appointment Date/Time Appointment Type Appointme nt Facility Name Jun 22, 2024 08:30 AM [facility] Jul 03, 2024 08:30 AM [facility] Jul 10, 2024 09:00 AM [facility] Jul 22, 2024 08:00 AM AMBULATORY [...] of theEncounter. The data comes from all [place] treatment facilities. Test Date/Time Test Type Test Details Facility Name Apr 20, 2024 01:10 PM Consult Order COMMUNITY CARE-UROLOGY Cons [facility] May 12, 2024 02:53 PM Consult Order COMM[facility]DENTAL GENERAL [facility] Lab Results: +/- 30 days of the encounter This section includes the Chemistry and Hematology Lab Results on record with [place] for the patient. Radiology Reports and Pathology Reports are provided separately, in subsequent sections. Lab Results This section contains the Chemistry/Hematology Results that were resulted 30 days before or 30 daysafter the date of the Encounter. Date/Time Source Result Type Result - Unit Interpretation Reference Range Comment Apr 20, 2024 09:33 AM [facility] LIPID PANEL FASTING Specimen Type: SERUM No comment entered. Ordering Provider: NEHEMIAH BOWERS Report Released Date/Time: Apr 15, 2024 02:47 PM Reporting Lab: [facility] [address] [facility] [address] Performing Lab: [address] [address] CHOLESTEROL 118 mg/dL TRIGLYCERIDE 58 mg/dL 0-150 LDL calculated 55 mg/dL 0-129 CHOL/HDL 2.3 HDL CHOLESTEROL 51 mg/dL 40-60 Apr 20, 2024 09:33 AM [facility] HEMOGLOBIN A1C PANEL Specimen Type: BLOOD Comment: [...] Apr 15, 2024 02:47 PM Reporting Lab: [address] [address] Performing Lab: [address] [address] HEMOGLOBIN A1C 5.1 4.0-5.6 Apr 20, 2024 09:33 AM [facility] BASIC METABOLIC PANEL (fasting) Specime n Type: SERUM No comment entered. Ordering Provider: NEHEMIAH BOWERS Report Released Date/Time: Apr 15, 2024 02:47 PM Reporting Lab: [address] [address] Performing Lab: [address] [address] UREA NITROGEN 13 mg/dL 7-25 GLUCOSE 105 mg/dL H 65-100 SODIUM 136 mmol/L 135-145 POTASSIUM 4.9 mmol/L 3.5-5.0 CHLORIDE 101 mmol/L 100-110 CO2 25 meq/L 20-30 CREATININE, Serum 1.04 mg/dL 0.50-1.40 eGFR(CKD-EPI 2020) 75 mL/min >60 Apr 20, 2024 09:33 AM [facility] LIVER FUNCTION Specimen Type: SERUM No comment entered. Ordering Provider: NEHEMIAH BOWERS Report Released Date/Time: Apr 15, 2024 02:47 PM Reporting Lab: [facility] [address] [address] Performing Lab: [address] [address] PROTEIN,TOTAL 6.6 g/dL 6.0-8.3 ALBUMIN 3.8 g/dL 3.5-5.0 ALKALINE PHOSPHATASE 111 U/L 40-150 AST 18 U/L 5-34 ALT 34 U/L BILIRUBIN, TOTAL 0.3 mg/dL 0.2-1.2 Apr 20, 2024 09:33 AM [facility] TSH Specimen Type: SERUM No comment entered. Ordering Provider: NEHEMIAH BOWERS Report Released Date/Time: Apr 15, 2024 02:47 PM Reporting Lab: [facility] [address] [address] Performing Lab: [facility] [address] [address] TSH 2.13 u[IU]/mL 0.35-5.00 Apr 20, 2024 09:33 AM [facility] CBC AND DIFF (AUTO) Specimen Type: BLOOD No comment entered. Ordering Provider: NEHEMIAH BOWERS Report Released Date/Time: Apr 15, 2024 02:47 PM Reporting Lab: [facility] [address] [address] Performing Lab: [facility] [address] [address] WBC 9.20 10*3/uL 4.50-11.00 RBC 3.75 10*6/uL [...] 10*3/uL 0.00-0.00 Apr 20, 2024 09:33 AM [facility] FERRITIN Specimen Type: SERUM No comment entered. Ordering Provider: NEHEMIAH BOWERS Report Released Date/Time: Apr 20, 2024 09:28 AM Reporting Lab: [address] [address] Performing Lab: [address] [address] FERRITIN 63 ng/mL 20-300 Apr 20, 2024 09:33 AM [facility] IRON & TIBC PANEL Specimen Type: SERUM No comment entered. Ordering Provider: NEHEMIAH BOWERS Report Released Date/Time: Apr 20, 2024 09:28 AM Reporting Lab: [facility] [address] [address] Performing Lab: [facility] [place] [facility] [address] [facility] [address] TIBC 360 ug/dL 204-475 IRON 25 ug/dL L 40-160 Transferrin Saturation 6.9 L 20.0-50.0 Transferrin (TRF) 273 mg/dL 200-360 Apr 20, 2024 09:33 AM [facility] VITAMIN B12 Specimen Type: SERUM No comment entered. Ordering Provider: NEHEMIAH BOWERS Report Released Date/Time: Apr 20, 2024 09:28 AM Reporting Lab: [facility] [address] [address] Performing Lab: [facility] [address] [facility] [facility] [address] VITAMIN B12 1032 pg/mL H 200-900 Social History: Smoking Status (Most current) and Tobacco Use (All prior to encounter date) This section includes the most current, and the historical, smoking and tobacco- related health factors from the [place] facility where the Encounter took place. Current Smoking Status This section includes the most current smoking, or tobacco-related health factor, from the [place] facility where the Encounter took place. Date/Time Current Smoking Status Comment Lor gonzalez Jul 04, 2023 09:00 AM VA-TOBACCO FORMER USER [facility] Tobacco Use History This section includes a history of the smoking, or tobacco-related health factors, that were collected on or before the date of the Encounter. The data comes from the [place] facility where the Encounter took place. Date/Time Smoking Status/Tobacco Use Comment F acdaniel Jul 04, 2023 09:00 AM VA-TOBACCO QUIT 15 YRS OR MORE [place] [facility] [place] [facility] Mar 14, 2022 03:02 PM VA-TOBACCO FORMER USER [place] [facility] [place] [facility] Mar 14, 2022 03:02 PM VA-TOBACCO QUIT 15 YRS OR MORE [place] [facility] [place] [facility] Feb 08, 2021 09:00 AM VA-TOBACCO FORMER USER [place] [facility] [place] [facility] Feb 08, 2021 09:00 AM VA-TOBACCO QUIT 15 YRS OR MORE [place] [facility] [place] [facility] October 09, 2019 01:12 PM VA-TOBACCO [facility] October 09, 2019 01:12 PM VA-TOBACCO QUIT 5 TO < 15 YRS [facility] Advance Directives: All historical and current Section Date Range: From patient's date of to the date document was created. This section includes ALL of a patient's completed or amended [place] Advance and Rescinded Directives. The entries below indicate that a directive exists for the patient, but an actual copy is not included with this document. The data comes from all [place] facilities. Date Advance Directives Provider Source Feb 21, 2021 ADVANCE DIRECTIVE ESCALANTEBEL Carolyn IBRAHIM [facility] Encounter Notes: All associated encounter notes This section contains the clinical notes associated to the Encounter. Date/Time Encounter Note(s) Provider Source May 04, 2024 07:10 PM PHARMACY NOTE: LOCAL TITLE: PHARMACY CUSTOMER CARE MEDICATION RENEWAL STANDARD TITLE: PHARMACY NOTE DATE OF NOTE: MAY 04, 2024@19:10 ENTRY DATE: MAY 04, 2024@19:10:50 AUTHOR: ANDI BARCENAS EXP COSIGNER: URGENCY: STATUS: COMPLETED Date: Apr Division: [place] Pt referred by Pharmacy Call Center for medication renewal: Non-controlled/maintenan ce medication Medications requested: [id number] NUTRITION SUPL ENSURE PLUS/VANILLA LIQ Defer to primary care provider To be mailed . Please review and renew if appropriate. *This note was generated by [facility] Pharmacy Customer Care. If you have any questions or need assistance, do not contact this author. Please refer all questions to your local, on-site pharmacy departments. /robe/ ANDI BARCENAS CPhT Pharmacy Informaticist, [place]/Pharmacy Customer Care Signed: 05/04/2024 19:11 Receipt Acknowledged By: 05/09/2024 18:13 /robe/ NEHEMIAH CUEVAS MD PHYSICIAN 05/08/2024 14:49 /robe/ CECILIO AL RN REGISTERED NURSE ANDI BARCENAS [facility]
== END 2024-05-28 11:43 | disposition home or self-care (01) ==
PROVIDERS: PCP Internal Medicine; Visit Provider Internal Medicine Cardiovascular Disease
DX: I48.92 Unspecified atrial flutter (principal); I22.2 Subsequent non-ST elevation (NSTEMI) myocardial infarction
CPT/HCPCS: 93010; 99214; G2211

== ENCOUNTER → 2024-05-28 10:57 | Outpatient (BNVA) | payer OTHER, SELFPAY | PROVIDERS: PCP Internal Medicine; Visit Provider Internal Medicine Cardiovascular Disease | DX: I48.92 Unspecified atrial flutter (principal); I22.2 Subsequent non-ST elevation (NSTEMI) myocardial infarction; Z79.899 Other long term (current) drug therapy | CPT/HCPCS: 93005; 99212 ==

== ENCOUNTER 2024-07-28 06:13 | Outpatient (REF) | payer OTHER, SELFPAY ==
[2024-07-28 07:46] LABS: Anion Gap 11 (12-20); Blood Urea Nitrogen 14 mg/dL (9-16); Calcium 9.5 mg/dL (8.4-10.2); Carbon Dioxide 29 mmol/L (22-29); Chloride 105 mmol/L (96-108); Estimated Glomerular Filt Rate > 60; Glucose Random 93 mg/dL (60-115); Potassium 4.4 mmol/L (3.3-5.1); Sodium 141 mmol/L (135-145)
== END 2024-07-28 06:14 | disposition home or self-care (01) ==
LOC: HO.LAB 06:13
PROVIDERS: PCP Internal Medicine; Visit Provider Internal Medicine Cardiovascular Disease
DX: I22.2 Subsequent non-ST elevation (NSTEMI) myocardial infarction (principal)
CPT/HCPCS: 36415; 80048

== ENCOUNTER 2024-09-08 09:29 | Outpatient (AMB) | payer OTHER, SELFPAY ==
--- NOTE | 2024-09-08 09:39 | A.OFFVIS_ITS ---
Vital Signs 09/08/24 09:40 Height 5 ft 8 in Weight 138 lb 14.259 oz BMI 21.1 BP 116/58 L Blood Pressure Location Lt brachial Position Sitting Pulse 56 Intake Visit Reasons: 3m follow up/ CTA Intake Note: 3 month follow-up with ekg after CTA c/o sob Children'S Program Coordinator Required: No Spaghetti Press Helper: Spaghetti Press Helper Present Accompanied by: Spouse Allergies Codeine Sulfate Adverse Reaction (Unknown, Uncoded 04/28/24 11:23) vomiting Medication List - Last Reconciled 09/08/24 by Franky Segura MD amiodarone 200 mg PO DAILY aspirin (Adult Aspirin Regimen) 81 mg PO DAILY atorvastatin 80 mg PO DAILY food supplemt, lactose-reduced 1 ea PO DAILY latanoprost 0.005% 1 drp ophthalmic (eye) BEDTIME lidocaine 5% 1 patch topical DAILY PRN naloxone 4 mg/actuation 4 mg intranasal Q3M PRN omeprazole 40 mg PO DAILY@0630 ondansetron 4 mg PO DAILY PRN oxycodone-acetaminophen 5-325 mg (Percocet) 1 tab PO TID PRN ropinirole 0.25 mg PO BEDTIME HPI Comments Details: Clifford comes for follow-up, accompanied by his significant other. Patient says he has been very active and remains without any symptoms. He said he walks his dogs and mows his lawn and has his usual activity level without any symptoms of chest pain or shortness of breath. He underwent a recent coronary CTA which shows significant disease in the mid circumflex artery. He has been taking all his medications. Denies any prolonged palpitation irregular heartbeat. Denies any shortness of breath, orthopnea, PND, leg edema. He has not had any more urologic bleeding in the last few months. Taking all his medications. [facility] Medical History (Updated 09/08/24 @ 10:11 by Franky Segura MD) CAD (coronary artery disease) Prostate cancer Radiation cystitis COVID Bladder mass Atrial fibrillation with rapid ventricular response Paroxysmal atrial flutter Atrial flutter with rapid ventricular response Restless leg syndrome Elevated cholesterol Upper GI bleed Barretts esophagus C. difficile colitis Ileus Abdominal pain Diarrhea Nausea & vomiting Lung nodule < 6cm on CT Small bowel obstruction Diaphragm injury Pelvis fracture Liver laceration Sciatica Surgical History History of prostate biopsy History of total left knee replacement (TKR) Hx of exploratory laparotomy History of exploratory laparotomy History of esophagogastroduodenoscopy (EGD) Hx of colonoscopy H/O ankle fusion H/O knee surgery Family History Mother Colon cancer Sister Pancreatic cancer Social History Household Members: Spouse Housing: House Are you a primary respite care provider to a significant other at home: No Do you presently have visiting nurse or other home services: No Alcohol intake: current Alcohol intake frequency: a few times a month Alcohol type: beer 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 Tobacco Use Status: Former Tobacco user Tobacco use type: Cigarette Cigarette Packs Per Day: 1 Second Hand Smoke Exposure: No Substance Use Type: Marijuana Advance Directives Date on File: 11/22/20 service: Yes Current occupational status: disabled Review of Systems Const Denies chills, Denies fatigue, Denies fever(s), Denies frequent falls, Denies weakness, Denies weight gain and Denies weight loss ENT Denies dizziness Card Denies chest pain, Denies leg edema, Denies lightheadedness, Denies palpitations, Denies dyspnea, Denies dyspnea on exertion, Denies orthopnea and Denies other (loss of consciousness) Resp Denies cough, Denies dyspnea and Denies dyspnea on exertion GI Denies hematochezia and Denies change in stool character Musc Denies abnormal gait, Denies muscle weakness, Denies numbness, Denies radiating pain into limb and Denies tingling Neuro Denies abnormal gait, Denies dizziness, Denies frequent falls, Denies numbness, Denies tingling and Denies weakness Endo Denies fatigue and Denies palpitations Physical Exam Vital Signs: Last Vital Signs Pulse 56 09/08/24 09:40 BP 116/58 L 09/08/24 09:40 BMI result Body Mass Index 21.1 Const General: cooperative, comfortable, no acute distress, alert, awake and Physically active Nutritional Appearance: thin Orientation/consciousness: patient oriented x3 Limitations: no limitations Neck Neck: Yes trachea midline, Yes supple and Yes no JVD Resp Effort & Inspection: normal respiratory effort Auscultation: clear to auscultation bilaterally and diminished lung sounds Cardio Jugular venous distension: no JVD Palpation: normal PMI Rate: regular rate Rhythm: regular rhythm Heart sounds: S1 normal heart sound present, S2 normal heart sound present, no click, no gallops, no murmurs and no rubs GI Auscultation: normal bowel sounds Skin General skin exam: no rashes or lesions noted Neuro General: patient oriented x3 and no focal motor deficits Extrem General: Yes no clubbing, cyanosis or edema Psych Appearance: grossly normal Office Procedures EKG Details: EKG shows sinus bradycardia with rightward axis at 57 beats per minute [id number], Complete Assessment & Plan Assessment & Plan (1) CAD (coronary artery disease): Code(s): I25.10 - Atherosclerotic heart disease of [place] coronary artery without angina pectoris Category: Medical Plan: Coronary artery disease with significant disease noted on coronary CTA in his circumflex distribution. Currently he is completely asymptomatic from cardiac perspective. He does not have paroxysmal LAD/left main equivalent disease at this point time. Will continue with medical therapy as per ischemia trial. Advised to call me with any new symptoms. Continue low-dose aspirin therapy. Continue high-intensity statin therapy. Continue rhythm control approach. Target goal LDL less than 70 mg/dL. Continue aggressive blood pressure control. He is encouraged to continue to maintain activity level as tolerated and call me with any new symptoms that would suggest myocardial ischemia. He understands and agrees. (2) Paroxysmal atrial flutter: Code(s): I48.92 - Unspecified atrial flutter Category: Medical Plan: Paroxysmal atrial flutter which has remained suppressed on amiodarone therapy. Has done very well with rhythm control approach with no hospitalization. Continue pursue rhythm control approach. CHADSVASc score of 3-4. He was high risk of thromboembolic complication over the rodent exterminator. However he can not be on lifelong oral anticoagulation therapy due to his urologic bleeding in the past and high risk of urologic bleeding. Will discuss with Urology about possibility of Watchman device with overlapping oral anticoagulation therapy that will be required for 6 weeks. If they agree will refer him for Watchman device. This was discussed in details with patient and patient's significant other. They understand agree. Avoidance of stimulants was discussed. Follow up in 3 months to discuss reduction in amiodarone therapy. Will follow up in the clinic in 3 months time, sooner p.r.n.. Thank you for allowing me to partake in his care Coding Level of Care Code Est Pt Level 4 (19076) Complex EM visit Add On G2211 Diagnoses CAD (coronary artery disease) I25.10 Paroxysmal atrial flutter I48.92 CPT Codes EKG - CPT: 46001-[id number], Complete ([id number])
[2024-09-08 09:40] VITALS: BP 116/58; PULSE 56; BMI 21.1
--- OUTSIDE RECORDS SUMMARY | 2024-09-08 10:27 | XMS_ITS | Encounter Summary ---
Author Name [facility] [place] [facility] [place] Address [address] [place] [address] Care Team Providers Care Cupola Patcher Helper Name Role Phone NEHEMIAH CUEVAS [...] Name Patient's Relationship to Policy Orellana ANA [facility] Aug 11, 2014 [id number] [phone] DHAVAL SHAQ Wagner PATIENT ANTHEM BCBS [facility] MEDICARE SUPPLEMEN ARTEMIO [facility] Aug 11, 2014 [id number] DHAVAL SHAQ [place] SUPPLEMEN ARTEMIO MEDEX 2 Aug 11, 2014 [id number] DHAVAL SHAQ [place] SUPPLEMEN ARTEMIO MEDEX 2 Aug 11, 2014 [id number] DHAVAL BernardSHAQ PATIENT BCBS [facility] SUPPLEMEN ARTEMIO [facility] Aug 11, 2014 [id number] [phone] ARCHOCTAVIOEA SHAQ Wagner [facility] [place] MEDICARE SUPPLEMEN [facility] [place] [facility] Aug 11, 2014 [id number] ARCHOCTAVIOEA SHAQ WagnerA [facility] (WNR) MEDICARE ADVANTAGE HUMAN A INSUR [place] [facility] Jan 11, 2022 [id number] [phone] ARCHOCTAVIOEA SHAQ Wagner PATIENT USMANA [facility] (WNR) MEDICARE ADVANTAGE [facility] (WNR) Jan 11, 2022 [id number] [phone] ARCHAMBEA SHAQ Wagner PATIENT MEDICARE (WNR) MEDICARE () PART A Dec 11, 2014 PART A [id number] ARCHAMBEA SHAQ Wagner PATIENT MEDICARE (WNR) MEDICARE () PART A Aug 11, 2014 PART A [id number] AR[place] SHAQ Wagner PATIENT MEDICARE (WNR) MEDICARE () PART B Aug 11, 2014 PART B [id number] AR[place] SHAQ Wagner PATIENT MEDICARE (WNR) MEDICARE () PART A Aug 11, 2014 PART A [id number] ARCHAMBEA Bernard,SHAQ PATIENT MEDICARE (WNR) MEDICARE () PART B Aug 11, 2014 PART B [id number] [place] SHAQ Wagner PATIENT MEDICARE (WNR) MEDICARE () PART A Aug 11, 2014 PART A [id number] ARCHAMBEA U,SHAQ PATIENT MEDICARE ([place]NR) MEDICARE () PART B Aug 11, 2014 PART B [id number] ARCHAMBEA Bernard,SHAQ PATIENT MEDICARE (WNR) MEDICARE () PART B Aug 11, 2014 PART B [id number] ARCHAMBEA SHAQ Wagner [facility] (WNR) MEDICARE ADVANTAGE [facility] (WNR) May 13, 2020 [id number] ARCHAMBEA SHAQ Wagner PATIENT Selected Encounter This section includes the information on record at NH for the Encounter. Date/Time Encounter Type Encounter Description Reason Pro vider Source May 04, 2024 07:10 PM Outpatient Encounter ADMIN PAT ACTIVTIES (MASNONCT) IHE Encounter Template Text not used by NH Plan of Treatment: Future Appointments (+ 6 months) and Future Tests (+/- 45 days) The Plan of Treatment section includes future care activities for the patient from all NH treatmentfacilities. This section includes future appointments and future orders which are active, pending or scheduled. Future Appointments This section includes appointments that were scheduled to occur 6 months from the date of the Encounter, up to a maximum of 20 appointments. The data comes from all [facility]. Appointment Date/Time Appointment Type Appointme nt Facility Name Jun 22, 2024 08:30 AM AMBULATORY - NONE [place] [facility] [place] [facility] Jun 23, 2024 09:30 AM AMBULATORY - MEDICINE [place] [facility] [place] [facility] Jul 03, 2024 08:30 AM AMBULATORY - MEDICINE [place] [facility] [place] [facility] Jul 09, 2024 09:00 AM AMBULATORY - MEDICINE [place] [facility] [place] [facility] Jul 13, 2024 09:00 AM AMBULATORY - MEDICINE [facility] Jul 22, 2024 08:00 AM AMBULATORY - MEDICINE [facility] Sep 08, 2024 09:45 AM AMBULATORY - MEDICINE [place] [facility] [place] [facility] September 18, 2024 09:00 AM AMBULATORY - MEDICINE [place] [facility] [place] [facility] Oct 15, 2024 08:30 AM [facility] Active, Pending, and Scheduled Orders This section includes a listing of several types of active, pending, and scheduled orders, including clinic medications orders, diagnostic test orders, procedure orders and consult orders; where the start date of the order is 45 days before the date of the Encounter or 45 days after the date of theEncounter. The data comes from all [facility]. Test Date/Time Test Type Test Details Facility Name Apr 20, 2024 01:10 PM Consult Order COMMUNITY CARE-UROLOGY Cons [employer] [facility] Lab Results: +/- 30 days of the encounter This section includes the Chemistry and Hematology Lab Results on record with NH for the patient. Radiology Reports and Pathology Reports are provided separately, in subsequent sections. Lab Results This section contains the Chemistry/Hematology Results that were resulted 30 days before or 30 daysafter the date of the Encounter. Date/Time Source Result Type Result - Unit Interpretation Reference Range Specimen Type Comment Apr 20, 2024 09:33 AM [facility] LIPID PANEL FASTING SERUM Specimen Ty pe: SERUM No comment entered. Ordering Provider: NEHEMIAH LORD Report Released Date/Time: Apr 15, 2024 02:47 PM Reporting Lab: [address] [address] Performing Lab: [address] [address] CHOLESTEROL 118 mg/dL TRIGLYCERIDE 58 mg/dL 0-150 LDL calculated 55 mg/dL 0-129 CHOL/HDL 2.3 HDL CHOLESTEROL 51 mg/dL 40-60 Apr 20, 2024 09:33 AM [facility] BASIC METABOLIC PANEL (fasting) SERUM Specimen Type: SERUM No comment entered. Ordering Provider: NEHEMIAH CUEVAS Report Released Date/Time: Apr 15, 2024 02:47 PM Reporting Lab: [address] [address] Performing Lab: [address] [address] UREA NITROGEN 13 mg/dL 7-25 GLUCOSE 105 mg/dL H 65-100 SODIUM 136 mmol/L 135-145 POTASSIUM 4.9 mmol/L 3.5-5.0 CHLORIDE 101 mmol/L 100-110 CO2 25 meq/L 20-30 CREATININE, Serum 1.04 mg/dL 0.50-1.40 eGFR(CKD-EPI 2020) 75 mL/min >60 Apr 20, 2024 09:33 AM [facility] HEMOGLOBIN A1C PANEL BLOOD Specimen T ype: BLOOD Comment: Values obtained from A1C measurements can vary. For atypical A1C assays, a reported value of 7.0 could actually be between 6.72 and 7.28 if measured by a reference method. A reported value of 9.0 could actually be between 8.73 and 9.27. Ref: http://www.ngsp.org/CAPdata.asp Ordering Provider: NEHEMIAH CUEVAS Report Released Date/Time: Apr 15, 2024 02:47 PM Reporting [facility]: [facility] [address] [address] Performing Lab: [facility] [address] [address] HEMOGLOBIN A1C 5.1 4.0-5.6 Apr 20, 2024 09:33 AM [facility] LIVER FUNCTION SERUM Specimen Type: S SHADY No comment entered. Ordering Provider: NEHEMIAH CUEVAS Report Released Date/Time: Apr 15, 2024 02:47 PM Reporting Lab: [facility] [address] [address] Performing Lab: [facility] [address] [address] PROTEIN,TOTAL 6.6 g/dL 6.0-8.3 ALBUMIN 3.8 g/dL 3.5-5.0 ALKALINE PHOSPHATASE 111 U/L 40-150 AST 18 U/L 5-34 ALT 34 U/L BILIRUBIN, TOTAL 0.3 mg/dL 0.2-1.2 Apr 20, 2024 09:33 AM [facility] TSH SERUM Sp ecimen Type: SERUM No comment entered. Ordering Provider: NEHEMIAH CUEVAS Report Released Date/Time: Apr 15, 2024 02:47 PM Reporting Lab: [facility] [address] Performing Lab: [facility] [address] TSH 2.13 u[IU]/mL 0.35-5.00 Apr 20, 2024 09:33 AM [facility] CBC AND DIFF (AUTO) BLOOD Specimen Ty pe: BLOOD No comment entered. Ordering Provider: NEHEMIAH CUEVAS Report Released Date/Time: Apr 15, 2024 02:47 PM Reporting Lab: [facility] [address] [address] Performing Lab: [facility] [address] [address] WBC 9.20 10*3/uL 4.50-11.00 RBC 3.75 10*6/uL [...] 0.5 0.0-0.7 IMMATURE GRAN, ABS 0.05 10*3/uL 0.00-0.0 6 NRBC % 0.0 0.0-0.0 NRBC, ABS 0.00 10*3/uL 0.00-0.00 Apr 20, 2024 09:33 AM [facility] FERRITIN SERUM Specimen Type: S SHADY No comment entered. Ordering Provider: NEHEMIAH CUEVAS Report Released Date/Time: Apr 20, 2024 09:28 AM Reporting Lab: [address] [address] Performing Lab: [address] [address] FERRITIN 63 ng/mL 20-300 Apr 20, 2024 09:33 AM [facility] IRON & TIBC PANEL SERUM Specimen Type : SERUM No comment entered. Ordering Provider: NEHEMIAH CUEVAS Report Released Date/Time: Apr 20, 2024 09:28 AM Reporting Lab: [facility] [address] [facility] [address] Performing Lab: [address] [address] TIBC 360 ug/dL 204-475 IRON 25 ug/dL L 40-160 Transferrin Saturation 6.9 L 20.0-50.0 Transferrin (TRF) 273 mg/dL 200-360 Apr 20, 2024 09:33 AM [facility] VITAMIN B12 SERUM Specimen Type: S SHADY No comment entered. Ordering Provider: NEHEMIAH CUEVAS Report Released Date/Time: Apr 20, 2024 09:28 AM Reporting Lab: [address] [address] Performing Lab: [address] [address] VITAMIN B12 1032 pg/mL H 200-900 Social History: Smoking Status (Most current) and Tobacco Use (All prior to encounter date) This section includes the most current, and the historical, smoking and tobacco- related health factors from the NH facility where the Encounter took place. Current Smoking Status This section includes the most current smoking, or tobacco-related health factor, from the NH facility where the Encounter took place. Date/Time Current Smoking Status Comment Lor gonzalez Jul 04, 2023 09:00 AM NH-TOBACCO FORMER USER [facility] Tobacco Use History This section includes a history of the smoking, or tobacco-related health factors, that were collected on or before the date of the Encounter. The data comes from the NH facility where the Encounter took place. Date/Time Smoking Status/Tobacco Use Comment F [email or web address] Jul 04, 2023 09:00 AM [facility]-TOBACCO QUIT 15 YRS OR MORE [facility] Mar 14, 2022 03:02 PM VA-TOBACCO FOR[facility]ER [facility] Mar 14, 2022 03:02 PM VA-TOBACCO QUIT 15 YRS OR MORE [facility] Feb 08, 2021 09:00 AM VA-TOBACCO FORMER USER [facility] [place] [facility] Feb 08, 2021 09:00 AM VA-TOBACCO QUIT 15 YRS OR MORE [facility] [place] [facility] October 09, 2019 01:12 PM VA-TOBACCO FORMER USER [facility] [place] [facility] October 09, 2019 01:12 PM VA-TOBACCO QUIT 5 TO < 15 YRS [facility] Advance Directives: All historical and current Section Date Range: From patient's date of to the date document was created. This section includes ALL of a patient's completed or amended [place] Advance and Rescinded Directives. The entries below indicate that a directive exists for the patient, but an actual copy is not included with this document. The data comes from all NH facilities. Date Advance Directives Provider Source Feb 21, 2021 ADVANCE DIRECTIVE BEL ESCALANTE [facility] Encounter Notes: All associated encounter notes This section contains the clinical notes associated to the Encounter. Date/Time Encounter Note(s) Provider Source May 04, 2024 07:10 PM PHARMACY NOTE: LOCAL TITLE: PHARMACY CUSTOMER CARE MEDICATION RENEWAL STANDARD TITLE: PHARMACY NOTE DATE OF NOTE: MAY 04, 2024@19:10 ENTRY DATE: MAY 04, 2024@19:10:50 AUTHOR: ANDI BARCENAS COSIGNER: URGENCY: STATUS: COMPLETED Date: Apr Division: [facility] referred by Pharmacy Call Center for medication renewal: Non-controlled/maintenan ce medication Medications requested: [id number] NUTRITION SUPL ENSURE PLUS/VANILLA LIQ Defer to primary care provider To be mailed . Please review and renew if appropriate. *This note was generated by [facility] Pharmacy Customer Care. If you have any questions or need assistance, do not contact this author. Please refer all questions to your local, on-site pharmacy departments. /robe/ ANDI BARCENAS CPhT [place], [place]/Pharmacy Customer Care Signed: 05/04/2024 19:11 Receipt Acknowledged By: 05/09/2024 18:13 /es/ NEHEMIAH CUEVAS MD PHYSICIAN 05/08/2024 14:49 /es/ CECILIO AL RN REGISTERED NURSE ANDI BARCENAS [facility]
--- OUTSIDE RECORDS SUMMARY | 2024-09-08 10:27 | XMS_ITS | Encounter Summary ---
Author Name [facility] [place] [facility] [place] [facility] [place] [facility] [place] Address [address] [place] [address] Care Team Providers Care Pci Security Consultant Name Role Phone NEHEMIAH CUEVAS Primary Care [...] Patient's Relationship to Policy Orellana ANA [facility] Aug 11, 2014 [id number] [phone] DHAVAL SHAQ Wagner PATIENT ANTHMIGUEL BCBS [facility] MEDICARE SUPPLEMEN ARTEMIO [facility] Aug 11, 2014 [id number] DHAVAL SHAQ [place]IENT [place] SUPPLEMEN ARTEMIO [facility] 2 Aug 11, 2014 [id number] [phone] DHAVAL SHAQ Wagner [place]IENT [place] SUPPLEMEN ARTEMIO MEDEX 2 Aug 11, 2014 [id number] DHAVAL BernardSHAQ HAI BCBS [facility] MEDIC[facility] SUPPLEMEN ARTEMIO [facility] Aug 11, 2014 [id number] [phone] ARCHOCTAVIOEA SHAQ Wagner [facility] [place] ([place]) MEDICARE SUPPLEMEN [facility] Aug 11, 2014 [id number] ARCHOCTAVIOEA SHAQ WagnerA [facility] (WNR) MEDICARE ADVANTAGE HUMAN A INSUR [facility] Jan 11, 2022 [id number] [phone] ARCHOCTAVIOEA SHAQ Wagner PATIENT USMANA [facility] (WNR) MEDICARE ADVANTAGE [facility] (WNR) Jan 11, 2022 [id number] [phone] ARCHAMBEA SHAQ Wagner PATIENT MEDICARE (WNR) MEDICARE () PART A Dec 11, 2014 PART A [id number] ARCHAMBEA SHAQ Wagner PATIENT MEDICARE (WNR) MEDICARE () PART A Aug 11, 2014 PART A [id number] ARCHAMBEA SHAQ Wagner PATIENT MEDICARE (WNR) MEDICARE () PART B Aug 11, 2014 PART B [id number] [phone] ARCHAMBEA SHAQ Wagner PATIENT MEDICARE (WNR) MEDICARE () PART A Aug 11, 2014 PART A [id number] ARCHAMBEA SHAQ Wagner PATIENT MEDICARE (WNR) MEDICARE () PART B Aug 11, 2014 PART B [id number] [phone] ARCHAMBEA SHAQ Wagnre PATIENT MEDICARE (WNR) MEDICARE () PART A Aug 11, 2014 PART A [id number] ARCHAMBEA Bernard,SHAQ PATIENT MEDICARE (WNR) MEDICARE () PART B Aug 11, 2014 PART B [id number] [phone] ARCHAMBEA Bernard,SHAQ PATIENT MEDICARE (WNR) MEDICARE () PART B Aug 11, 2014 PART B [id number] ARCHAMBEA SHAQ Wagner [facility] (WNR) MEDICARE ADVANTAGE [facility] (WNR) May 13, 2020 [id number] [phone] ARCHAMBEA SHAQ Wagner PATIENT Selected Encounter This section includes the information on record at [place] for the Encounter. Date/Time Encounter Type Encounter Description Reason Provider Source Jan 30, 2024 07:30 AM OFFICE O/P EST MOD 30 MIN PM&RS PHYSICIAN ICD-10-CM M13.872 Other specified arthritis, left ankle and foot NOELNOEMY Barnett E Encounter Template Text not used by [place] Assessments - Encounter Diagnoses This section includes the primary and secondary diagnoses documented for the Encounter. Date/Time Primary/Secondary Diagnosis Diagnosis Name Provider Source Jan 30, 2024 08:22 AM PRIMARY Other specified arthritis, left ankle and foot ALYCE ENG [facility] [place] [facility] Jan 30, 2024 08:22 AM SECONDARY Intervertebral disc disorders w radiculopathy, lumbar region ALYCE ENG [facility] [place] [facility] Jan 30, 2024 08:22 AM SECONDARY Scoliosis, unspecified ALYCE ENG [facility] [place] [facility] Plan of Treatment: Future Appointments (+ 6 months) and Future Tests (+/- 45 days) The Plan of Treatment section includes future care activities for the patient from all [place] [facility] [place]. This section includes future appointments and future [...] - MEDICINE [place] [facility] [place] [facility] Mar 11, 2024 08:30 AM AMBULATORY - MEDICINE [facility] Mar 16, 2024 08:30 AM AMBULATORY - MEDICINE [place] [facility] [place] [facility] Apr 07, 2024 10:00 AM AMBULATORY - MEDICINE [place] [facility] [place] [facility] Apr 20, 2024 08:30 AM AMBULATORY - MEDICINE [facility] Apr 28, 2024 11:00 AM AMBULATORY - MEDICINE [place] [facility] [place] [facility] Jun 22, 2024 08:30 AM AMBULATORY - NONE [facility] [place] [facility] Jun 23, 2024 09:30 AM AMBULATORY - MEDICINE [place] [facility] [place] [facility] Jul 03, 2024 08:30 AM [facility] Jul 09, 2024 09:00 AM AMBULATORY - MEDICINE [place] [facility] [place] [facility] Jul 13, 2024 09:00 AM AMBULATORY - MEDICINE [facility] Jul 22, 2024 08:00 AM AMBULATORY - MEDICINE [facility] Lab Results: +/- 30 days [...] Unit Interpretation Reference Range Specimen Type Comment Jan 24, 2024 08:23 AM ANCHORAGE METHADONE SCREEN URINE Specimen Type: URINE Comment: THIAGO test are qualitative, any L or H flags only indicate a [place] alert was sent. Ordering Provider: NEHEMIAH LORD Report Released Date/Time: Jan 22, 2024 11:28 AM Reporting Lab: [facility] [address] [facility] [address] Performing Lab: [facility] [address] [facility] [address] METHADONE SCREEN None detected(Negative) L Negative Jan 24, 2024 08:23 AM ANCHORAGE ALCOHOL, ETHYL URINE PANEL URINE Spec imen Type: URINE Comment: Urine with Cr <5 [...] may have been adulterated. Ordering Provider: NEHEMIAH CUEVAS Report Released Date/Time: Jan 22, 2024 11:28 AM Reporting Lab: [facility] [address] [facility] [address] Performing Lab: [address] [address] ALCOHOL, ETHYL URINE NONE-DETECTED mg/dL NONE-DETECTED, cutoff = 10 mg/dL PH, THIAGO 5.8 [pH] 4-10 CREATININE, THIAGO 29.33 mg/dL >20 SP.GRAVITY, THIAGO 1.009 1.003-1.020 Jan 24, 2024 08:23 AM ANCHORAGE AMPHETAMINES SCREEN PANEL URINE Speci men Type: URINE Comment: Urine with Cr <5 [...] may have been adulterated. Ordering Provider: NEHEMIAH CUEVAS Report Released Date/Time: Jan 22, 2024 11:28 AM Reporting Lab: [address] [address] Performing Lab: [address] [address] AMPHETAMINES SCREEN NONE-DETECTED None-D etected, Cutoff = 1000 ng/mL PH, THIAGO 5.8 [pH] 4-10 CREATININE, THIAGO 29.33 mg/dL >20 SP.GRAVITY, THIAGO 1.009 1.003-1.020 Jan 24, 2024 08:23 AM ANCHORAGE FENTANYL SCREEN PANEL URINE Specimen Type: URINE Comment: Urine with Cr [...] NOT SENT BY LAB. Ordering Provider: NEHEMIAH CUEVAS Report Released Date/Time: Jan 22, 2024 11:28 AM Reporting Lab: [address] [address] Performing Lab: [address] [address] FENTANYL SCREEN NONE-DETECTED ng/mL Nega tive: Cutoff = 1.00 ng/mL PH, THIAGO 5.7 [pH] 4-10 CREATININE, THIAGO 29.05 mg/dL >20 SP.GRAVITY, THIAGO 1.010 1.003-1.020 Jan 24, 2024 08:23 AM ANCHORAGE BENZODIAZEPINES SCREEN PANEL URINE Sp ecimen Type: URINE Comment: Urine with Cr <5 [...] may have been adulterated. Ordering Provider: NEHEMIAH CUEVAS Report Released Date/Time: Jan 22, 2024 11:28 AM Reporting Lab: [address] [address] Performing Lab: [address] [address] BENZODIAZEPINES SCREEN NONE-DETECTED Non e-Detected, Cutoff = 200 ng/mL PH, THIAGO 5.8 [pH] 4-10 CREATININE, THIAGO 29.33 mg/dL >20 SP.GRAVITY, THIAGO 1.009 1.003-1.020 Jan 24, 2024 08:23 AM ANCHORAGE BUPRENORPHINE SCREEN PANEL URINE Spec imen Type: URINE Comment: Urine with Cr <5 [...] may have been adulterated. Ordering Provider: NEHEMIAH CUEVAS Report Released Date/Time: Jan 22, 2024 11:28 AM Reporting Lab: [address] [address] Performing Lab: [address] [place] [address] BUPRENORPHINE (URINE) NONE-DETECTED None Detected, Cutoff = 10.0 ng/mL PH, THIAGO 5.8 [pH] 4-10 CREATININE, THIAGO 29.33 mg/dL >20 SP.GRAVITY, THIAGO 1.009 1.003-1.020 Jan 24, 2024 08:23 AM ANCHORAGE COCAINE SCREEN PANEL URINE Specimen T ype: URINE Comment: Urine with [...] may have been adulterated. Ordering Provider: NEHEMIAH CUEVAS Report Released Date/Time: Jan 22, 2024 11:28 AM Reporting Lab: [address] [address] Performing Lab: [address] [address] COCAINE SCREEN NONE-DETECTED None-Detect ed,Cutoff = 300 ng/mL PH, THIAGO 5.8 [pH] 4-10 CREATININE, THIAGO 29.33 mg/dL >20 SP.GRAVITY, THIGAO 1.009 1.003-1.020 Jan 24, 2024 08:23 AM ANCHORAGE CANNABINOIDS SCREEN PANEL URINE Speci men Type: URINE Comment: Urine with Cr <5 [...] may have been adulterated. Ordering Provider: NEHEMIAH CUEVAS Report Released Date/Time: Jan 22, 2024 11:28 AM Reporting Lab: [address] [address] Performing Lab: [facility] [address] CANNABINOIDS SCREEN POSITIVE HH None-Detect ed,Cutoff = 50 ng/mL PH, THIAGO 5.8 [pH] 4-10 CREATININE, THIAGO 29.33 mg/dL >20 SP.GRAVITY, THIAGO 1.009 1.003-1.020 Jan 24, 2024 08:23 AM ANCHORAGE OPIATES SCREEN PANEL URINE Specimen T ype: URINE Comment: Urine with [...] may have been adulterated. Ordering Provider: NEHEMIAH CUEVAS Report Released Date/Time: Jan 22, 2024 11:28 AM Reporting Lab: [facility] Explore.To Yellow Pages [address] [address] Performing Lab: [place] [facility] [employer] [address] [address] OPIATES SCREEN NONE-DETECTED None-Detect ed, Cutoff = 300 ng/mL PH, THIAGO 5.8 [pH] 4-10 CREATININE, THIAGO 29.33 mg/dL >20 SP.GRAVITY, THIAGO 1.009 1.003-1.020 Jan 24, 2024 08:23 AM ANCHORAGE OXYCODONE SCREEN PANEL URINE Specimen Type: URINE Comment: Urine with Cr [...] may have been adulterated. Ordering Provider: NEHEMIAH CUEVAS Report Released Date/Time: Jan 22, 2024 11:28 AM Reporting Lab: [facility] Explore.To Yellow Pages [address] [address] Performing Lab: [place] [facility] [place] [facility] [address] [facility] [address] OXYCODONE SCREEN POSITIVE HH None-Detected, Cutoff = 100 ng/mL PH, THIAGO 5.8 [pH] 4-10 CREATININE, THIAGO 29.33 mg/dL >20 SP.GRAVITY, THIAGO 1.009 1.003-1.020 Vital Signs: All taken on the encounter date This section contains inpatient and outpatient Vital Signs collected on the date of the Encounter. Date/Time Temperature Pulse Blood Pressure Respiratory Rate SP02 Pain Height Weight Body Mass Index Source Jan 30, 2024 07:31 AM 120/70 7 [facility] Social History: Smoking Status (Most current) [...] AM [facility]ACCO [facility] Tobacco Use History This section includes a history of the smoking, or tobacco-related health factors, that were collected on or before the date of the Encounter. The data comes from the [place] facility where the Encounter took place. Date/Time Smoking Status/Tobacco Use Comment F roopa Jul 04, 2023 09:00 AM VA-TOBACCO QUIT 15 YRS OR MORE [facility] [place] [facility] Mar 14, 2022 03:02 PM VA-TOBACCO FORMER USER [facility] [place] [facility] Mar 14, 2022 03:02 PM VA-TOBACCO QUIT 15 YRS OR MORE [facility] [place] [facility] Feb 08, 2021 09:00 AM VA-TOBACCO FORMER USER [facility] [place] [facility] Feb 08, 2021 09:00 AM VA-TOBACCO QUIT 15 YRS OR MORE [facility] [place] [facility] October 09, 2019 01:12 PM VA-TOBACCO FORMER USER [facility] [place] [facility] October 09, 2019 01:12 PM [...] Provider Source Feb 21, 2021 ADVANCE DIRECTIVE BEVERLY ESCALANTEA Carolyn [facility] Encounter Notes: All associated encounter notes [...] triamcinolone and 1mL of 1% lidocaine. HISTORY: Erie reports that the back has been quite [...] of the shoulder. TIME OUT NOTE TIME:Jan@08:05 [place] correctly stated: [X]Full name: SHAQ GREGORIO [X]Last 4 of #: [id number] [X]: Aug PROVIDER NAME: Aki Eng PA-c STAFF NAME: Ayaka Willson RN Lot #:[id number] Exp:May 2025 Patient was seated with shoulder [...] Pre-procedure pain level: 6/10 Post-procedure pain level: /10 73-year-old with advanced scoliosis and degenerative disc [...] (local) and dispensed from another [place] or [facility]D facility (remote) as well as [...] JLV. Allergies/ADRs (Tool #5) FACILITY ALLERGY/ADR -------- [facility] NO KNOWN ALLERGIES [facility] [place] [facility] CODEINE [facility] [place] [facility] NEURONTIN Med Recon NoGlossary (Tool #1) INCLUDED IN THIS LIST: Alphabetical list of active outpatient prescriptions dispensed from this [facility] (local) and dispensed from another [place] or DoD facility (remote) as well as [...] the patient into personal health records (i.e. [employer]) are NOT included in this list. Non-VA medications documented outside this [place], remote inpatient orders (regardless of status) and [...] TABLET BY MOUTH EVERY 12 HOURS Rx# [id number] Last Released: 12/20/23 Qty/Days Supply: Rx Expiration Date: 06/20/24 Refills Remainin OUTPT DRONEDARONE 400MG TAB (Status = Active) TAKE ONE TABLET BY MOUTH TWICE DAILY Rx# [id number] Last Released: 12/20/23 Qty/Days Supply: Rx Expiration Date: 09/17/24 Refills Remainin OUTPT FLUTICASONE PROP 50MCG 120D NASAL INHL (Status = ) INSTILL 1 SPRAY INTO EACH NOSTRIL AT BEDTIME Rx# [id number] Last Released: 11/12/22 Qty/Days Supply: 06/11 Rx Expiration Date: 11/09/23 Refills Remainin Indication: FOR NASAL IRRITATION/INFLAMMATION OUTPT LATANOPROST 0.005% OPH SOLN (Status = Active) 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 Rx Expiration Date: 08/12/24 Refills Remainin Indication: FOR WIDE-ANGLE GLAUCOMA OUTPT LIDOCAINE 5% PATCH (Status = Active) APPLY 1 PATCH TOPICALLY ONCE DAILY FOR NERVE PAIN (LEAVE PATCH ON FOR 12 HOURS, THEN REMOVE PATCH) Rx# [id number] Last Released: 10/14/23 Qty/Days Supply: Rx Expiration Date: 10/11/24 Refills Remainin Indication: FOR NERVE PAIN OUTPT LOVASTATIN 20MG TAB (Status = Active) TAKE ONE TABLET BY MOUTH AT BEDTIME FOR CHOLESTEROL -- AVOID GRAPEFRUIT JUICE Rx# [id number] Last Released: 01/16/24 Qty/Days Supply: Rx Expiration Date: 10/11/24 Refills Remainin OUTPT METOPROLOL TARTRATE 25MG TAB (Status = Active) TAKE ONE-HALF TABLET BY MOUTH TWICE DAILY FOR BLOOD PRESSURE/HEART Rx# [id number] Last Released: 10/10/23 Qty/Days Supply: Rx Expiration Date: 10/08/24 Refills Remainin Indication: FOR HIGH BLOOD PRESSURE OUTPT NALOXONE HCL 4MG/SPRAY SOLN NASAL SPRAY (Status = Active) INSTILL 1 SPRAY ONE NOSTRIL ONE TIME NEEDED FOR OPIOID OVERDOSE CALL 911 WITH ADMINISTRATION. REPEAT WITH SECOND DEVICE IF SYMPTOMS RETURN Rx# [id number] Last Released: 01/25/24 Qty/Days Supply: Rx Expiration Date: 04/20/24 Refills Remainin Indication: FOR OPIOID OVERDOSE OUTPT NUTRITION SUPL ENSURE PLUS/VANILLA LIQ (Status = Active) DRINK 1 CAN BY MOUTH TWICE DAILY Rx# [id number] Last Released: 01/04/24 Qty/Days Supply: Rx Expiration Date: 04/29/24 Refills Remainin OUTPT OMEPRAZOLE 20MG EC CAP (Status = Active) TAKE TWO CAPSULES BY MOUTH EVERY MORNING 30 MINUTES BEFORE BREAKFAST Rx# [id number] Last Released: 01/16/24 Qty/Days Supply: Rx Expiration Date: 10/11/24 Refills Remainin OUTPT ONDANSETRON HCL 4MG TAB (Status = Active) TAKE ONE TABLET BY MOUTH ONCE DAILY NEEDED FOR VOMITING/NAUSEA Rx# [id number] Last Released: 04/01/23 Qty/Days Supply: Rx Expiration Date: 03/29/24 Refills Remainin OUTPT OXYCODONE HCL 5MG/APAP 325MG TAB (Status = ) TAKE 1 TABLET BY MOUTH THREE TIMES DAILY NEEDED NEXT FILL 11/25/23 Rx# [id number] Last Released: 10/28/23 Qty/Days Supply: Rx Expiration Date: 11/22/23 Refills Remainin Indication: FOR PAIN OUTPT OXYCODONE HCL 5MG/APAP 325MG TAB (Status = ) TAKE 1 TABLET BY MOUTH THREE TIMES DAILY NEEDED NEXT FILL 12/23/23 Rx# [id number] Last Released: 11/27/23 Qty/Days Supply: Rx Expiration Date: 12/22/23 Refills Remainin OUTPT OXYCODONE HCL 5MG/APAP 325MG TAB (Status = Discontinued) TAKE 1 TABLET BY MOUTH THREE TIMES DAILY NEEDED FOR PAIN NEXT FILL 01/22/24 Rx# [id number] Last Released: 12/25/23 Qty/Days Supply: Rx Expiration Date: 01/21/24 Refills Remainin Indication: FOR PAIN OUTPT OXYCODONE HCL 5MG/APAP 325MG TAB (Status = Active) TAKE 1 TABLET BY MOUTH THREE TIMES DAILY NEEDED FOR PAIN NEXT FILL 02/19/24 Rx# [id number] Last Released: 01/21/24 Qty/Days Supply: Rx Expiration Date: 02/20/24 Refills Remainin Indication: FOR PAIN OUTPT ROPINIROLE HCL 0.25MG TAB (Status = Discontinued) TAKE ONE TABLET BY MOUTH DAILY Rx# [id number] Last Released: 09/03/23 Qty/Days Supply: Rx Expiration Date: 11/09/23 Refills Remainin OUTPT ROPINIROLE HCL 0.25MG TAB (Status = Active) TAKE ONE TABLET BY MOUTH DAILY Rx# [id number] Last Released: 12/11/23 Qty/Days Supply: Rx Expiration Date: 12/08/24 Refills Remainin SUPPLIES /robe/ AKI ENG [facility] Signed: 01/30/2024 08:22 AKI ENG [facility]
--- OUTSIDE RECORDS SUMMARY | 2024-09-08 10:27 | XMS_ITS | Encounter Summary ---
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 Name Role Phone NEHEMIAH CUEVAS Primary [...] Name Patient's Relationship to Policy Orellana ANA [facility] Aug 11, 2014 [id number] [phone] DHAVAL SHAQ Wagner PATIENT ANTHEM [place] MEDICARE SUPPLEMEN ARTEMIO [facility] Aug 11, 2014 [id number] [phone] DHAVAL SHAQ Wagner PATIENT [place] SUPPLEMEN ARTEMIO [facility] 2 Aug 11, 2014 [id number] DHAVAL SHAQ Wagner [place] ARTEMIO MEDEX 2 Aug 11, 2014 [id number] [phone] DHAVAL SHAQ Wagner PATIENT BCBS OF [facility] MEDIC[facility] SUPPLEMEN ARTEMIO [facility] Aug 11, 2014 [id number] [phone] ARCHAMBEA SHAQ Wagner PATIENT [place] MEDICARE [facility] Aug 11, 2014 [id number] ARCHOCTAVIOEA SHAQ Wagner PATIENT USMANA [facility] (WNR) MEDICARE ADVANTAGE [facility] (WNR) Jan 11, 2022 [id number] [phone] ARCHAMBEA SHAQ Wagner PATIENT [facility]MANA [facility] (WNR) MEDICARE ADVANTAGE HUMAN A [facility] [place] [facility] Jan 11, 2022 [id number] [phone] ARCHAMBEA SHAQ Wagner PATIENT MEDICARE (WNR) MEDICARE (M) PART A Dec 11, 2014 PART A [id number] ARCHAMBEA Bernard,SHAQ PATIENT MEDICARE ([place]) MEDICARE () PART A Aug 11, 2014 PART A [id number] ARCHAMBEA Bernard,SHAQ PATIENT MEDICARE ([place]) MEDICARE () PART B Aug 11, 2014 PART B [id number] ARCHAMBEA SHAQ Wagner PATIENT MEDICARE ([place]) MEDICARE () PART A Aug 11, 2014 PART A [id number] ARCHAMBEA Bernard,SHAQ PATIENT MEDICARE ([place]) MEDICARE () PART B Aug 11, 2014 PART B [id number] ARCHAMBEA U,SHAQ PATIENT MEDICARE ([place]) MEDICARE () PART A Aug 11, 2014 PART A [id number] ARCHAMBEA U,SHAQ PATIENT MEDICARE ([place]) MEDICARE (M) PART B Aug 11, 2014 PART B [id number] ARCHAMBEA U,SHAQ PATIENT MEDICARE ([place]) MEDICARE () PART B Aug 11, 2014 PART B [id number] ARCHAMBEA SHAQ Wagner PATIENT [facility] (WNR) MEDICARE ADVANTAGE [facility] (WNR) May 13, 2020 [id number] ARCHAMBEA SHAQ Wagner PATIENT Selected Encounter This section includes the information on record at NH for the Encounter. Date/Time Encounter Type Encounter Description Reason Provider Source Mar 11, 2024 08:30 AM OFFICE O/P EST LOW 20 MIN PODIATRY ICD-10-CM L60.0 Ingrowing nail RINA CESAR [facility] Encounter Template Text not used by [place] Assessments - Encounter Diagnoses This section includes the primary and secondary diagnoses documented for the Encounter. Date/Time Primary/Secondary Diagnosis Diagnosis Name Provider Source Mar 11, 2024 08:56 AM PRIMARY Ingrowing nail RINA CESAR [facility] Mar 11, 2024 08:56 AM SECONDARY Pain in left toe(s) RINA CESAR [place] Mar 11, 2024 08:56 AM SECONDARY Pain in right toe(s) RINA CESAR [facility] Mar 11, 2024 08:56 AM SECONDARY Peripheral [...] 20 appointments. The data comes from all [place] treatment facilities. Appointment Date/Time Appointment Type Appointme nt Facility Name Mar 16, 2024 08:30 AM [facility] Apr 07, 2024 10:00 AM AM[facility] Apr 20, 2024 08:30 AM AM[facility]ULATORY - MEDICINE [facility] Apr 28, 2024 11:00 AM [facility]UL[facility]ORY [facility]IC[facility] Jun 22, 2024 08:30 AM AMBULATORY - NONE [facility] Jun 23, 2024 09:30 AM [facility] Jul 03, 2024 08:30 AM [facility] Jul 09, 2024 09:00 AM [facility] Jul 13, 2024 09:00 AM AM[facility]ULATORY - MEDICINE [facility] Jul 22, 2024 08:00 AM AMBULATORY - MEDICINE [facility] Sep 08, 2024 09:45 AM AMBULATORY - MEDICINE [facility] Active, Pending, and Scheduled Orders This section includes a listing of several types of active, pending, and scheduled orders, including clinic medications orders, diagnostic test orders, procedure orders and consult orders; where the start date of the order is 45 days before the date of the Encounter or 45 days after the date of theEncounter. The data comes from all [place] treatment facilities. Test Date/Time Test Type Test Details Facility Name Apr 20, 2024 01:10 PM Consult Order [facility] Cons Vice President Business & Corporate Development's Choice [facility] Social History: Smoking Status (Most current) and [...] Lor ity Oct 31, 2018 11:38 AM NH-TOBACCO QUIT 15 YRS OR MORE [facility] Tobacco Use History This section includes a history of the smoking, or tobacco-related health factors, that were collected on or before the date of the Encounter. The data comes from the [place] facility where the Encounter took place. Date/Time Smoking Status/Tobacco Use Comment F roopa Oct 31, 2018 11:38 AM NH-TOBACCO QUIT 15 YRS OR MORE [facility] Jul 12, 2017 08:51 AM QUIT TOBACCO USE > 7 YEARS AGO [facility] Mar 30, 2016 08:29 AM QUIT TOBACCO USE > 7 YEARS AGO [facility] Mar 04, 2015 10:57 AM QUIT TOBACCO USE > 7 YEARS AGO [facility] Advance Directives: All historical and current Section [...] BEL ESCALANTE [facility], [facility]–1983 Encounter Notes: All associated encounter notes This [...] BOTH COVID VACCINE DOSES + BOOSTER AT [facility] LAST SEEN FOR TREATMENT: 10/23/2023 s: Pt. is a 73 yo alert [facility] MALE who is seen for CONTINUED [...] present physical-medical status. Protective sensation utilizing a Dalton-Elaine lOg monofilament is 10/10 bilateral. BIOMECHANICAL: Exam [...] JLV. Allergies/ADRs (Tool #5) FACILITY ALLERGY/ADR -------- [facility] NO KNOWN ALLERGIES [facility] CODEINE [facility] NEURONTIN Med Recon NoGlossary (Tool #1) INCLUDED IN THIS LIST: Alphabetical list of active outpatient prescriptions dispensed from this NH (local) and dispensed from another NH or [facility] facility (remote) as well as inpatient [...] the patient into personal health records (i.e. [employer]) are NOT included in this list. 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 Rx Expiration Date: 08/12/24 Refills Remainin Indication: FOR WIDE-ANGLE GLAUCOMA OUTPT LIDOCAINE 5% PATCH (Status = Active) APPLY 1 PATCH TOPICALLY ONCE DAILY FOR NERVE PAIN (LEAVE PATCH ON FOR 12 HOURS, THEN REMOVE PATCH) Rx# [id number] Last Released: 10/14/23 Qty/Days Supply: Rx Expiration Date: 10/11/24 Refills Remainin Indication: FOR NERVE PAIN OUTPT LOVASTATIN 20MG TAB (Status = Active) TAKE ONE TABLET BY MOUTH AT BEDTIME FOR CHOLESTEROL -- AVOID GRAPEFRUIT JUICE Rx# [id number] Last Released: 01/16/24 Qty/Days Supply: Rx Expiration Date: 10/11/24 Refills Remainin OUTPT METOPROLOL TARTRATE 25MG TAB (Status = Active) TAKE ONE-HALF TABLET BY MOUTH TWICE DAILY FOR BLOOD PRESSURE/HEART Rx# [id number] Last Released: 10/10/23 Qty/Days Supply: Rx Expiration Date: 10/08/24 Refills Remainin Indication: FOR HIGH BLOOD PRESSURE OUTPT NALOXONE HCL 4MG/SPRAY SOLN NASAL SPRAY (Status = Active) INSTILL 1 SPRAY ONE NOSTRIL ONE TIME NEEDED FOR OPIOID OVERDOSE CALL 911 WITH ADMINISTRATION. REPEAT WITH SECOND DEVICE IF SYMPTOMS RETURN Rx# [id number] Last Released: 01/25/24 Qty/Days Supply: Rx Expiration Date: 04/20/24 Refills Remainin Indication: FOR OPIOID OVERDOSE OUTPT NUTRITION SUPL ENSURE PLUS/VANILLA LIQ (Status = Active) DRINK 1 CAN BY MOUTH TWICE DAILY Rx# [id number] Last Released: 01/04/24 Qty/Days Supply: Rx Expiration Date: 04/29/24 Refills Remainin OUTPT OMEPRAZOLE 20MG EC CAP (Status = Active) TAKE TWO CAPSULES BY MOUTH EVERY MORNING 30 MINUTES BEFORE BREAKFAST Rx# [id number] Last Released: 01/16/24 Qty/Days Supply: Rx Expiration Date: 10/11/24 Refills Remainin OUTPT ONDANSETRON HCL 4MG TAB (Status = Active) TAKE ONE TABLET BY MOUTH ONCE DAILY NEEDED FOR VOMITING/NAUSEA Rx# [id number] Last Released: 03/09/24 Qty/Days Supply: Rx Expiration Date: 03/29/24 Refills Remainin OUTPT OXYCODONE HCL 5MG/APAP 325MG TAB (Status = ) TAKE 1 TABLET BY MOUTH THREE TIMES DAILY NEEDED NEXT FILL 12/23/23 Rx# [id number] Last Released: 11/27/23 Qty/Days Supply: Rx Expiration Date: 12/22/23 Refills Remainin OUTPT OXYCODONE HCL 5MG/APAP 325MG TAB (Status = Discontinued) TAKE 1 TABLET BY MOUTH THREE TIMES DAILY NEEDED FOR PAIN NEXT FILL 01/22/24 Rx# [id number] Last Released: 12/25/23 Qty/Days Supply: Rx Expiration Date: 01/21/24 Refills Remainin Indication: FOR PAIN OUTPT OXYCODONE HCL 5MG/APAP 325MG TAB (Status = Discontinued) TAKE 1 TABLET BY MOUTH THREE TIMES DAILY NEEDED FOR PAIN NEXT FILL 02/19/24 Rx# [id number] Last Released: 01/21/24 Qty/Days Supply: Rx Expiration Date: 02/20/24 Refills Remainin Indication: FOR PAIN OUTPT OXYCODONE HCL 5MG/APAP 325MG TAB (Status = Active) TAKE 1 TABLET BY MOUTH THREE TIMES DAILY NEEDED FOR PAIN NEXT FILL 03/18/24 Rx# [id number] Last Released: 02/19/24 Qty/Days Supply: Rx Expiration Date: 03/19/24 Refills Remainin Indication: FOR PAIN OUTPT ROPINIROLE HCL 0.25MG TAB (Status = Active) TAKE ONE TABLET BY MOUTH DAILY Rx# [id number] Last Released: 12/11/23 Qty/Days Supply: 90 Rx Expiration Date: 12/08/24 Refills Remainin SUPPLIES Suicide Screen: C-SSRS Screening [place]-Suicide Severity Rating Scale (C-SSRS Screener) 1. Over [...] to other questions. 

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
--- OUTSIDE RECORDS SUMMARY | 2024-09-08 10:27 | XMS_ITS | Encounter Summary ---
Author Name [facility] [place] Organization [place] Address [address] [place] [address] Care Team Providers Care Printer Slotter Feeder Name Role Phone NEHEMIAH CUEVAS Primary Care [...] Patient's Relationship to Policy [facility] Aug 11, 2014 [id number] [phone] DHAVAL SHAQ Wagner PATIENT ANTHEM [place]BS OF [place] MEDICARE SUPPLEMEN ARTEMIO [facility] Aug 11, 2014 [id number] DHAVAL SHAQ Wagner PATIENT [place] MED[place] SUPPLEMEN ARTEMIO MEDEX 2 Aug 11, 2014 [id number] [phone] DHAVAL SHAQ Wagner PAT[place] SUPPLEMEN ARTEMIO MEDEX 2 Aug 11, 2014 [id number] DHAVAL SHAQ Wagner PATIENT BCBS OF [facility] MEDICARE SUPPLEMEN ARTEMIO [facility] Aug 11, 2014 [id number] ARCHAMBEA SHAQ Wagner PATIENT [facility] [place] (BLUECARD) MEDICARE [facility] Aug 11, 2014 [id number] ARCHAMBEA SHAQ Wagner PATIENT HUMANA [facility] (WNR) MEDICARE ADVANTAGE HUMAN A INSUR [facility] Jan 11, 2022 [id number] ARCHOCTAVIOEA SAHQ Wagner PATIENT USMANA [facility] (WNR) MEDICARE ADVANTAGE [facility] (WNR) Jan 11, 2022 [id number] [phone] ARCHAMBEA SHAQ Wagner PATIENT MEDICARE (WNR) MEDICARE (M) PART A Dec 11, 2014 PART A [id number] ARCHAMBEA Bernard,SHAQ PATIENT MEDICARE (WNR) MEDICARE () PART A Aug 11, 2014 PART A [id number] ARCHAMBEA SHAQ Wagner PATIENT MEDICARE (WNR) MEDICARE () PART B Aug 11, 2014 PART B [id number] ARCHAMBEA Bernard,SHAQ PATIENT MEDICARE (WNR) MEDICARE () PART A Aug 11, 2014 PART A [id number] ARCHAMBEA Bernard,SHAQ PATIENT MEDICARE (WNR) MEDICARE () PART B Aug 11, 2014 PART B [id number] ARCHAMBEA Bernard,SHAQ PATIENT MEDICARE (WNR) MEDICARE () PART A Aug 11, 2014 PART A [id number] ARCHAMBEA U,SHAQ PATIENT MEDICARE (WNR) MEDICARE (M) PART B Aug 11, 2014 PART B [id number] ARCHAMBEA U,SHAQ PATIENT MEDICARE (WNR) MEDICARE (M) PART B Aug 11, 2014 PART B [id number] ARCHAMBEA SHAQ Wagner PATIENT [facility] (WNR) MEDICARE ADVANTAGE [facility] (WNR) May 13, 2020 [id number] ARCHAMBEA SHAQ Wagner PATIENT Selected Encounter This section includes the information on record at [place] for the Encounter. Date/Time Encounter Type Encounter Description Reason Provider Source October 08, 2023 11:00 AM OFFICE O/P EST SF 10 MIN PRIMARY CARE/MEDICINE ICD-10-CM I48.91 Unspecified atrial fibrillation NEHEMIAH DAVIES Lillian Encounter Template Text not used by [place] Assessments - Encounter Diagnoses This section includes the primary and secondary diagnoses documented for the Encounter. Date/Time Primary/Secondary Diagnosis Diagnosis Name Provider Source October 08, 2023 12:31 PM PRIMARY Unspecified atrial fibrillation NEHEMIAH BOWERS EDIN October 08, 2023 12:31 PM SECONDARY Carcinoma in situ of prostate NEHEMIAH BOWERS [place] October 08, 2023 12:31 PM SECONDARY longterm (current) use of anticoagulants NEHEMIAH BOWERS [place] Plan of Treatment: Future Appointments (+ 6 months) and Future Tests (+/- 45 days) The Plan of Treatment section includes future care activities for the patient [facility] all [place] [facility] This section includes future appointments [...] - MEDICINE [place] [facility] Oct 23, 2023 08:30 AM AMBULATORY - MEDICINE [facility] Nov 19, 2023 08:30 AM AMBULATORY - MEDICINE [place] [facility] [place] [facility] Nov 28, 2023 07:30 AM AMBULATORY - REHAB MEDICIN E [facility] [place] [facility] Dec 23, 2023 07:30 AM AMBULATORY - MEDICINE [place] [facility] [place] [facility] Dec 23, 2023 03:15 PM AMBULATORY - MEDICINE [facility] Jan 28, 2024 08:00 AM AMBULATORY - MEDICINE [place] [facility] [place] [facility] Jan 30, 2024 07:30 AM AMBULATORY - MEDICINE [place] [facility] [place] [facility] Mar 06, 2024 08:45 AM AMBULATORY - MEDICINE [place] [facility] [place] [place] [facility] Mar 11, 2024 08:30 AM AMBULATORY - MEDICINE [facility] Mar 16, 2024 08:30 AM AMBULATORY - MEDICINE [place] [facility] [place] [facility] Apr 07, 2024 10:00 AM AMBULATORY - MEDICINE [facility] N[facility] Vital Signs: All taken on the encounter date This section contains inpatient and outpatient Vital Signs collected on the date of the Encounter. Date/Time Temperature Pulse Blood Pressure Respiratory Rate SP02 Pain Height Weight Body Mass Index Source October 08, 2023 11:04 AM 97.8 56 135/69 99 [facility] Social History: Smoking Status (Most current) [...] Lor gonzalez Oct 31, 2018 11:38 AM SD-TOBACCO QUIT 15 YRS OR MORE [place] Tobacco Use History This section includes a history of the smoking, or tobacco-related health factors, that were collected on or before the date of the Encounter. The data comes from the SD facility where the Encounter took place. Date/Time Smoking Status/Tobacco Use Comment F roopa Oct 31, 2018 11:38 AM SD-TOBACCO QUIT 15 YRS OR MORE [place] Jul 12, 2017 08:51 AM QUIT TOBACCO USE > 7 YEARS AGO [place] Mar 30, 2016 08:29 AM QUIT TOBACCO USE > 7 YEARS AGO [place] Mar 04, 2015 10:57 AM QUIT TOBACCO USE > 7 YEARS AGO [place] Advance Directives: All historical and current Section [...] DIRECTIVE BEL ESCALANTE [facility] Radiology Reports: +/- 30 days of [...] the Encounter. The data comes from all [place] treatment facilities. Date/Time Radiology Report Provider Source October 02, 2023 08:18 AM FLUOROSCOPIC NITIN NCE FOR NEEDLE PLACEMENT: SHAQ GREGORIO [id number] -[id number] M Exm Date: OCTOBER 02, 2023@08:18 Req Phys: BERNABE PRIETO THI Pat Loc: CWM/NO/MED REHAB/SPINE INJ (Re Img Loc: [facility]/BUILDING 1 Service: Unknown [facility] , (Case [id number] COMPLETE) FLUOROSCOPIC GUIDANCE FOR NEEDLE (RAD Detailed) CPT:90597 Proc Modifiers : LEFT Reason for Study: SI joint injection Clinical History: Report Status: Verified Date Reported: OCTOBER 02, 2023 Date Verified: OCTOBER 02, 2023 Computational Theory Scientist E-Sig:/ES/LOU VICTORIA JR Report: Study: Pain injection [...] Primary Interpreting Staff: LOU VICTORIA JR, Radiologist (Computational Theory Scientist) /LOU WASHINGTON JR [facility] Encounter Notes: All associated [...] standard clinical care and in accordance with [facility] policy. 12/07/22 14:07 Ramsey Patel PDMP Appriss [place] 01/07/23 08:26 Nadazausten-Lisy,Ognvetok PDMP [place] 01/07/23 08:27 Nadazdin-Lisy,Ognjenk PDMP [place] [place] 02/05/23 13:11 Ramsey Patel PDMP [place] 03/06/23 13:07 Didier Downs PDMP [place] [place] 03/08/23 09:53 Nadazdin-Boskovic,Ognjenk PDMP [place] [place] 04/01/23 08:33 Amy Pittman PDMP [place] 04/01/23 08:35 Amy Pittman PDMP [place] 05/09/23 12:16 Zheng Bardales PDMP [place] [place] 05/24/23 10:07 Ravinder Bunn LPN PDMP [facility] [place] 05/29/23 15:39 Nadazdin-Bosjinnyic,Ognjenk PDMP [facility] [place] 06/30/23 09:50 Nadazdin-Bosjinnyic,Ognjenk PDMP [place] [place] 07/29/23 09:13 Shadazdin-iLsy,Ognjenk PDMP [facility] [place] 08/26/23 15:57 Ramsey Patel PDMP [facility] [place] 09/24/23 15:22 Ramsey Patel PDMP [place] [place] 10/22/23 13:59 Ramsey Patel PDM [facility] [place] 11/22/23 15:46 John Al [facility] Appriss [place] Urine Drug Screen: A urine drug screen [...] Last release date: 08/16/2021@16:29 Days supply: 1 /reba AL RN REGISTERED NURSE Signed: 11/22/2023 15:49 Receipt Acknowledged By: 11/22/2023 16:18 /robe/ NEHEMIAH CUEVAS MD PHYSICIAN JOHN AL Nov 22, 2023 03:47 PM ACCOUNTING OF DISC LOSURES NOTE: LOCAL TITLE: STATE PRESCRIPTION DRUG MONITORING PROGRAM STANDARD TITLE: ACCOUNTING OF DISCLOSURES NOTE DATE OF NOTE: NOV 22, 2023@15:47:22 ENTRY DATE: NOV 22, 2023@15:47:22 AUTHOR: JOHN AL EXP COSIGNER: NEHEMIAH CUVEAS URGENCY: STATUS: COMPLETED This PDMP query was submitted by John Al on behalf of Nehemiah Cuevas The clinical justification for this PDMP query is to review controlled substances prescribed outside of the [facility], and any additional information that may become available, as an important component of standard clinical care, and in accordance with [facility] policy. Patient information was shared with the PDMP Appriss [place]. The VA prescriber, for which I am a delegate, will be alerted of these PDMP findings through co-signature of this progress note. No prescription(s) for controlled substances outside the [facility] were found in the last 90 days. /reba AL RN REGISTERED NURSE Signed: 11/22/2023 15:47 /robe/ NEHEMIAH CUEVAS MD PHYSICIAN Cosigned: 11/22/2023 16:17 JOHN [...] standard clinical care, and in accordance with [facility] policy. Patient information was shared with the PDMP Appriss [place]. The VA prescriber, for which I am [...] DATE: OCTOBER 08, 2023@12:22:54 AUTHOR: Anali CUEVAS COSIGNER: URGENCY: STATUS: COMPLETED NOTE Has ADDENDA 73 y/o M with PMH of HL, paroxismal A. fib , prostate cancer, lung nodule, Estes's esophagus, LBP, RLS Last visit 06/2023 PCP is [place] Other providers: -- Cardiology [place]- Dr. Segura [phone] -- [facility] DR Kevin Bunch 2022 -->s/p foot surgery -- Rehab [facility]: Dr. Prieto s/p Left L5-S1 and S1 transforaminal epidural steroid injection q4m -- urologist: Dr. Jorge So following annually [phone] (h/o needle loom tender)-last 10/2022 -- oncologist: Dr Corina Phoenix, Left lung nodule: [facility]- reports CT yearly- annually last 10/2021 -- GI: Dr. Barraza/Dr. Lawson- [facility] [phone] -- optometry: [facility] -- derm 10/02/18 w DX: [place], [place], Garcias angiomas RTC PRN Recent falls (x)none pt accompanied by his reports feeling well visit today scheduled for L foot pain consult for [facility] has already yogesh placed by [place] [facility] pt has regular visit with [place] scheduled for 12/2023 will complete blood work [...] B12 (WROX): 591 VITAMIN D TOTAL: 48 - U/A negative ASSESSMENT/PLAN: 73 y/o M with PMH of HL, paroxismal A. fib , prostate cancer, lung nodule, Estes's esophagus, LBP, RLS #Paroxysmal atrial fibrillation -Dx 2023-patient asymptomatic, ventricular rate controlled on metoprolol, dronedarone Tolerating apixaban well, denies any signs of bleeding -c/w APIXABAN 5MG TAB BID -c/w METOPROLOL TARTRATE 12.5MG BID -c/w DRONEDARONE 400MG BID -f/w non-VA cardiology #Adenocarcinoma of prostate:completed radiation/ADT ([id number]) 01/2016 CT a/p, bone scan - no mets, thickened right bladder base (Negative cystoscopy) 2018 TRUS-benign Bx (PSA 0.69) -f/w non [place] urology annually PSA indefinitely, last PSA 0.34 [...] oncologist: Dr Corina Phoenix, Left lung nodule: [facility]- seen- annually please obtain last note prior [...] this VA (local) and dispensed from another [place] or [facility] facility (remote) as well as inpatient [...] 66 CHOL/HDL RATIO: 2.0 HDL: 78 H /robe/ NEHEMIAH CUEVAS MD PHYSICIAN Signed: 01/06/2024 01:56 01/29/2024 ADDENDUM STATUS: COMPLETED Cardiovascular Notes receieved from [facility] for visit date of 12/29/23. Per Notes: R06.02 -Shortness of breath Plan: Shortness of breath exertion, underlying pulmonary parenchymal disease can not be ruled out. Suggest PFTs, Further follow-up based on the PFT findings. Also could be related to chronotropic incompetence. Will discontinue metoprolol therapy as above. Will follow up [facility] [place] every 3 months for EKG In 1 year with me. Medications: Discontinued metoprolol tartrate 12.5 mg See Protocol PO BID 90 days 90 tabs 3RF Discontinued Reason: Doctor's Order Notes sent to [facility] to be scanned into pt chart. /reba AL RN REGISTERED NURSE Signed: 01/29/2024 11:28 01/29/2024 ADDENDUM STATUS: COMPLETED Correction: Service date for cardiovascular office note was 10/29/23 and NOT 12/29/23. /robe/ JOHN AL RN REGISTERED NURSE Signed: 01/29/2024 11:35 JOSE CUEVAS [place] September 24, 2023 03:22 PM ACCOUNTING OF [...] standard clinical care, and in accordance with [facility] policy. Patient information was shared with the PDMP Appriss [place]. The VA prescriber, for which I am [...]
--- OUTSIDE RECORDS SUMMARY | 2024-09-08 10:27 | XMS_ITS | Encounter Summary ---
Author Name [place] Address [address] [place] [address] Care Team Providers Care Cattle Shipper Name Role Phone NEHEMIAH CUEVAS Primary Care [...] Patient's Relationship to Policy Orellana ANA [facility] Aug 11, 2014 [id number] [phone] DHAVAL SHAQ Wagner PATIENT ANTHEM BCBS [facility] MEDICARE SUPPLEMEN ARTEMIO [facility] Aug 11, 2014 [id number] DHAVAL SHAQ Wagner [place] SUPPLEMEN ARTEMIO MEDEX 2 Aug 11, 2014 [id number] [phone] DHAVAL SHAQ Wagner [place] SUPPLEMEN ARTEMIO MEDEX 2 Aug 11, 2014 [id number] DHAVAL BernardSHAQ PATIENT BCBS [facility] MEDIC[facility] SUPPLEMEN ARTEMIO [facility] Aug 11, 2014 [id number] ARCHOCTAVIOEA SHAQ Wagner [facility] [place] (BLUECARD) MEDICARE SUPPLEMEN [facility] Aug 11, 2014 [id number] [phone] ARCHOCTAVIOEA SHAQ WagnerA [facility] (WNR) MEDICARE ADVANTAGE HUMAN A INSUR [facility] Jan 11, 2022 [id number] ARCHOCTAVIOEA SHAQ Wagner PATIENT USMANA [facility] (WNR) MEDICARE ADVANTAGE [facility] (WNR) Jan 11, 2022 [id number] [phone] ARCHAMBEA SHAQ Wagner PATIENT MEDICARE (WNR) MEDICARE () PART A Dec 11, 2014 PART A [id number] ARCHAMBEA SHAQ Wagner PATIENT MEDICARE (WNR) MEDICARE () PART A Aug 11, 2014 PART A [id number] ARCHAMBEA SHAQ Wagner PATIENT MEDICARE (WNR) MEDICARE () PART B Aug 11, 2014 PART B [id number] ARCHAMBEA SHAQ Wagner PATIENT MEDICARE (WNR) MEDICARE () PART A Aug 11, 2014 PART A [id number] ARCHAMBEA Benrard,SHAQ PATIENT MEDICARE (WNR) MEDICARE () PART B Aug 11, 2014 PART B [id number] ARCHAMBEA SHAQ Wagner PATIENT MEDICARE (WNR) MEDICARE () PART A Aug 11, 2014 PART A [id number] [id number] ARCHAMBEA U,SHAQ PATIENT MEDICARE (WNR) MEDICARE () PART B Aug 11, 2014 PART B [id number] ARCHAMBEA Benrard,SHAQ PATIENT MEDICARE (WNR) MEDICARE () PART B Aug 11, 2014 PART B [id number] [phone] ARCHAMBEA SHAQ Wagner [facility] (WNR) MEDICARE ADVANTAGE [facility] (WNR) May 13, 2020 [id number] ARCHAMBEA SHAQ Wagner PATIENT Selected Encounter This section includes the information on record at PA for the Encounter. Date/Time Encounter Type Encounter Description Reason Pro vider Source Jun 30, 2024 06:53 PM Outpatient Encounter ADMIN PAT ACTIVTIES (MASNONCT) IHE Encounter Template Text not used by PA Plan of Treatment: Future Appointments (+ 6 months) and Future Tests (+/- 45 days) The Plan of Treatment section includes future care activities for the patient from all PA treatmentfacilities. This section includes future appointments and future orders which are active, pending or scheduled. Future Appointments This section includes appointments that were scheduled to occur 6 months from the date of the Encounter, up to a maximum of 20 appointments. The data comes from all PA treatment [facility]. Appointment Date/Time Appointment Type Appointme nt Facility Name Jul 03, 2024 08:30 AM AMBULATORY - MEDICINE [place] [facility] Jul 09, 2024 09:00 AM AMBULATORY - MEDICINE [place] [facility] Jul 13, 2024 09:00 AM AMBULATORY - MEDICINE [facility] Jul 22, 2024 08:00 AM AMBULATORY - MEDICINE [facility] Sep 08, 2024 09:45 AM AMBULATORY - MEDICINE [place] [facility] September 18, 2024 09:00 AM AMBULATORY - MEDICINE [place] [facility] Oct 15, 2024 08:30 AM [facility] Dec 08, 2024 08:00 AM AMBULATORY - MEDICINE [place] [facility] Dec 16, 2024 10:00 AM [facility] Active, Pending, and Scheduled Orders This [...] PM Consult Order COMMUNITY CARE-DENTAL GENERAL Cons Veneer Supervisor's Choice [facility] Jul 13, 2024 09:45 AM Consult Order PAIN CLINI C/NHM OUTPT Cons Veneer Supervisor's Choice [facility] Lab Results: +/- 30 days of the encounter This section includes the Chemistry and Hematology Lab Results on record with PA for the patient. Radiology Reports and Pathology Reports are provided separately, in subsequent sections. Lab Results This section contains the Chemistry/Hematology Results that were resulted 30 days before or 30 daysafter the date of the Encounter. Date/Time Source Result Type Result - Unit Interpretation Reference Range Specimen Type Comment Jun 22, 2024 07:51 AM [facility] FERRITIN SERUM Specimen Type: SERUM No comment entered. Ordering Provider: NEHEMIAH LORD Report Released Date/Time: Apr 26, 2024 02:32 AM Reporting Lab: [address] [address] Performing Lab: [address] [address] FERRITIN 30 ng/mL 20-300 Jun 22, 2024 07:51 AM [facility] RETICULOCYTES BLOOD Specimen Type: B LOOD No comment entered. Ordering Provider: NEHEMIAH CUEVAS Report Released Date/Time: Apr 26, 2024 02:32 AM Reporting Lab: [address] [address] Performing Lab: [address] [address] RETIC % 0.7 0.6-2.0 RETIC, ABS 31.3 10*3/uL 30.0-90.0 RET-HE 32.3 pg 27.9-42.0 Jun 22, 2024 07:51 AM [facility] IRON & TIBC PANEL SERUM Specimen Type : SERUM No comment entered. Ordering Provider: NEHEMIAH CUEVAS Report Released Date/Time: Apr 26, 2024 02:32 AM Reporting Lab: [address] [address] Performing Lab: [address] [address] TIBC 355 ug/dL 204-475 IRON 63 ug/dL 40-160 Transferrin Saturation 17.7 L 20.0-50.0 Transferrin (TRF) 269 mg/dL 200-360 Jun 22, 2024 07:51 AM [facility] CBC AND DIFF (AUTO) BLOOD Specimen Ty pe: BLOOD No comment entered. Ordering Provider: NEHEMIAH CUEVAS Report Released Date/Time: Apr 26, 2024 02:32 AM Reporting Lab: [facility] [address] [facility] [address] Performing Lab: [facility] [address] [facility] [address] WBC 8.68 10*3/uL 4.50-11.00 RBC 4.60 10*6/uL [...] and tobacco- related health factors from the PA facility where the Encounter took place. Current Smoking Status This section includes the most current smoking, or tobacco-related health factor, from the PA facility where the Encounter took place. Date/Time Current Smoking Status Comment Lor gonzalez Jul 04, 2023 09:00 AM VA-TOBACCO FOR[facility]ER [facility] Tobacco Use History This section includes a history of the smoking, or tobacco-related health factors, that were collected on or before the date of the Encounter. The data comes from the PA facility where the Encounter took place. Date/Time Smoking Status/Tobacco Use Comment Joselyn blas Jul 04, 2023 09:00 AM VA-TOBACCO QUIT 15 YRS OR MORE [place] [place] [facility] Mar 14, 2022 03:02 PM VA-TOBACCO FORMER USER [place] [facility] [place] [facility] Mar 14, 2022 03:02 PM VA-TOBACCO QUIT 15 YRS OR MORE [place] [facility] [place] [facility] Feb 08, 2021 09:00 AM VA-TOBACCO FORMER USER [place] [facility] [place] [facility] Feb 08, 2021 09:00 AM VA-TOBACCO QUIT 15 YRS OR MORE [place] [facility] [place] [facility] October 09, 2019 01:12 PM VA-TOBACCO FORMER USER [place] [facility] [place] [facility] October 09, 2019 01:12 PM VA-TOBACCO QUIT 5 TO < 15 YRS [facility] Advance Directives: All historical and current Section Date Range: From patient's date of to the date document was created. This section includes ALL of a patient's completed or amended PA Advance and Rescinded Directives. The entries below indicate that a directive exists for the patient, but an actual copy is not included with this document. The data comes from all PA facilities. Date Advance Directives Provider Source Feb 21, 2021 ADVANCE DIRECTIVE BEL ESCALANTE [facility] Encounter Notes: All associated encounter notes This section contains the clinical notes associated to the Encounter. Date/Time Encounter Note(s) Provider Source Jun 30, 2024 06:53 PM PHARMACY NOTE: LOCAL TITLE: PHARMACY CUSTOMER CARE MEDICATION RENEWAL STANDARD TITLE: PHARMACY NOTE DATE OF NOTE: JUN 30, 2024@18:53 ENTRY DATE: JUN 30, 2024@18:53:46 AUTHOR: LAURYN DORMAN V EXP COSIGNER: URGENCY: STATUS: COMPLETED Date: Jun Division[facility] referred by [facility]acy Call Center for medication renewal: Controlled substance Medications requested: [id number] OXYCODONE HCL 5MG/APAP 325MG TAB Defer to primary care provider To be mailed . Please review and renew if appropriate. *This note was generated by [facility] Pharmacy Customer Care. If you have any questions or need assistance, do not contact this author. Please refer all questions to your local, on-site pharmacy departments. /robe/ LAURYN DORMAN CPhT [employer]rain Broker And Market Operator, [place]/Pharmacy Customer Care Signed: 06/30/2024 18:54 Receipt Acknowledged By: 07/05/2024 13:43 /es/ WENDY CARDONA NP NURSE PRACTITIONER for NEHEMIAH CUEVAS 07/02/2024 10:58 /es/ CECILIO AL RN REGISTERED NURSE LAURYN DORMAN [facility]
--- OUTSIDE RECORDS SUMMARY | 2024-09-08 10:28 | XMS_ITS | Encounter Summary ---
Author Name [facility] [place] Organization [place] Address [address] [place] [id number] Care Team Providers Care Insole Channeler Name Role Phone NEHEMIAH CUEVAS Primary Care [...] [facility] Aug 11, 2014 [id number] [phone] DHAVAL SHAQ Wagner PATIENT ANTHEM [place] OF [place] MEDICARE SUPPLEMEN [facility] Aug 11, 2014 [id number] [phone] DHAVAL SHAQ Wagner PATIENT [place] MED[place] SUPPLEMEN [facility] 2 Aug 11, 2014 [id number] [phone] DHAVAL SHAQ [place] SUPPLEMEN [facility]EX 2 Aug 11, 2014 [id number] DHAVAL SHAQ Wagner PATIENT BCBS [facility] BLUECAR MEDICARE SUPPLEMEN [facility] Aug 11, 2014 [id number] [phone] ARCHOCTAVIOEA SHAQ Wagner [place] MEDICARE [facility] Aug 11, 2014 [id number] ARCHOCTAVIOEA SHAQ WagnerA [facility] (WNR) MEDICARE ADVANTAGE HUMAN A INSUR [place] Jan 11, 2022 [id number] [phone] ARCHOCTAVIOEA SHAQ WagnerA MCR (WNR) MEDICARE ADVANTAGE [facility] (WNR) Jan 11, 2022 [id number] [phone] [place] SHAQ Wagner PATIENT MEDICARE (WNR) MEDICARE (M) PART A Dec 11, 2014 PART A [id number] [place] SHAQ Wagner PATIENT MEDICARE (WNR) MEDICARE (M) PART A Aug 11, 2014 PART A [id number] [place] SHAQ Wagner PATIENT MEDICARE ([place]) MEDICARE (M) PART B Aug 11, 2014 PART B [id number] [phone] AR[place] SHAQ Wagner PATIENT MEDICARE (WNR) MEDICARE () PART A Aug 11, 2014 PART A [id number] ARCHAMBEA Bernard,SHAQ PATIENT MEDICARE (WNR) MEDICARE (M) PART B Aug 11, 2014 PART B [id number] AR[place] SHAQ Wagner PATIENT MEDICARE (WNR) MEDICARE () PART A Aug 11, 2014 PART A [id number] [phone] [id number] ARCHAMBEA U,SHAQ PATIENT MEDICARE (WNR) MEDICARE (M) PART B Aug 11, 2014 PART B [id number] [id number] ARCHAMBEA U,SHAQ PATIENT MEDICARE ([place]NR) MEDICARE (M) PART B Aug 11, 2014 PART B [id number] ARCHAMBEA SHAQ Wagner [facility] (WNR) MEDICARE ADVANTAGE [facility] (WNR) May 13, 2020 [id number] ARCHAMBEA SHAQ Wagner PATIENT Selected Encounter This section includes the information on record at [place] for the Encounter. Date/Time Encounter Type Encounter Description Reason Provider Source Dec 23, 2023 07:30 AM Outpatient Encounter PULMONARY FUNCTION SIMON MOSQUEDA MD E Encounter Template Text not used by [place] [...] 28, 2024 08:00 AM AM[place]ULATORY [place]IC[place] [facility] Jan 30, 2024 07:30 AM AM[place]UL[place]IC[place] [facility] Mar 06, 2024 08:45 AM AM[place]UL[place]ORY [place] [facility] Mar 11, 2024 08:30 AM AMBULATORY - MEDICINE [facility] Mar 16, 2024 08:30 AM [place] [facility] Apr 07, 2024 10:00 AM AM[place] [facility] Apr 20, 2024 08:30 AM AMBULATORY - MEDICINE [facility] Apr 28, 2024 11:00 AM AM[place] [facility] Jun 22, 2024 08:30 AM AM[facility]ULATORY - [facility] [place] [facility] Jun 23, 2024 09:30 AM AM[place]UL[place]ORY [place] [facility] Lab Results: +/- 30 days of the [...] Unit Interpretation Reference Range Specimen Type Comment Dec 30, 2023 08:44 AM [facility] MAGNESIUM SERUM Specimen Type: SERUM No comment entered. Ordering Provider: NEHEMIAH LORD Report Released Date/Time: Jul 04, 2023 09:50 AM Reporting Lab: [facility] [address] [address] Performing Lab: [facility] [address] [address] MAGNESIUM 1.9 mg/dL 1.6-2.6 Dec 30, 2023 08:44 AM [facility] PSA SERUM Sp ecimen Type: SERUM No comment entered. Ordering Provider: NEHEMIAH CUEVAS Report Released Date/Time: Jul 04, 2023 09:50 AM Reporting Lab: [facility] [address] [address] Performing Lab: [facility] [address] [address] PSA 0.26 ng/mL 0.00-4.00 Dec 30, 2023 08:44 AM [facility] TSH SERUM Sp ecimen Type: SERUM No comment entered. Ordering Provider: NEHEMIAH CUEVAS Report Released Date/Time: Jul 04, 2023 09:50 AM Reporting Lab: [facility] [address] [address] Performing Lab: [facility] [address] [address] TSH 0.57 u[IU]/mL 0.35-5.00 Dec 30, 2023 08:44 AM [facility] HEMOGLOBIN A1C PANEL BLOOD Specimen T ype: BLOOD Comment: Values obtained from A1C measurements can vary. For atypical A1C assays, a reported value of 7.0 could actually be between 6.72 and 7.28 if measured by a reference method. A reported value of 9.0 could actually be between 8.73 and 9.27. Ref: http://www.ngsp.org/CAPdata.asp Ordering Provider: NEHEMIAH CUEVAS Report Released Date/Time: Jul 04, 2023 09:50 AM Reporting Lab: [facility] [address] [address] Performing Lab: [facility] [address] [facility] [address] HEMOGLOBIN A1C 4.9 4.0-5.6 Dec 30, 2023 08:44 AM [facility] LIPID PANEL FASTING SERUM Specimen Ty pe: SERUM No comment entered. Ordering Provider: NEHEMIAH CUEVAS Report Released Date/Time: Jul 04, 2023 09:50 AM Reporting Lab: [address] [address] Performing Lab: [address] [address] CHOLESTEROL 159 mg/dL TRIGLYCERIDE 76 mg/dL 0-150 LDL calculated 66 mg/dL 0-129 CHOL/HDL 2.0 HDL CHOLESTEROL 78 mg/dL H 40-60 Dec 30, 2023 08:44 AM [facility] LIVER FUNCTION SERUM Specimen Type: S SHADY No comment entered. Ordering Provider: NEHEMIAH CUEVAS Report Released Date/Time: Jul 04, 2023 09:50 AM Reporting Lab: [address] [address] Performing Lab: [address] [address] PROTEIN,TOTAL 6.4 g/dL 6.0-8.3 ALBUMIN 4.0 g/dL 3.5-5.0 ALKALINE PHOSPHATASE 64 U/L 40-150 AST 17 U/L 5-34 ALT 19 U/L BILIRUBIN, TOTAL 0.5 mg/dL 0.2-1.2 Dec 30, 2023 08:44 AM [facility] BASIC METABOLIC PANEL (fasting) SERUM Specimen Type: SERUM No comment entered. Ordering Provider: NEHEMIAH CUEVAS Report Released Date/Time: Jul 04, 2023 09:50 AM Reporting Lab: [address] [address] Performing Lab: [address] [address] UREA NITROGEN 13 mg/dL 7-25 GLUCOSE 100 mg/dL 65-100 SODIUM 136 mmol/L 135-145 POTASSIUM 4.5 mmol/L 3.5-5.0 CHLORIDE 102 mmol/L 100-110 CO2 26 meq/L 20-30 CREATININE, Serum 0.96 mg/dL 0.50-1.40 eGFR(CKD-EPI 2020) 83 mL/min >60 Dec 30, 2023 08:44 AM [facility] CBC AND DIFF (AUTO) BLOOD Specimen Ty pe: BLOOD No comment entered. Ordering Provider: NEHEMIAH CUEVAS Report Released Date/Time: Jul 04, 2023 09:50 AM Reporting Lab: [facility] [address] [facility] [address] Performing Lab: [place] [facility] [address] [facility] [address] [address] WBC 6.84 10*3/uL 4.50-11.00 RBC 4.52 10*6/uL [...] 0.6 0.0-0.7 IMMATURE GRAN, ABS 0.04 10*3/uL 0.00-0.0 [...] 04, 2023 09:00 AM VA-TOBACCO FORMER USER [place] [facility] Tobacco Use History This section includes a history of the smoking, or tobacco-related health factors, that were collected on or before the date of the Encounter. The data comes from the [place] facility where the Encounter took place. Date/Time Smoking Status/Tobacco Use Comment F acdaniel Jul 04, 2023 09:00 AM VA-TOBACCO QUIT 15 YRS OR MORE [place] [facility] Mar 14, 2022 03:02 PM VA-TOBACCO FORMER USER [place] [facility] Mar 14, 2022 03:02 PM VA-TOBACCO QUIT 15 YRS OR MORE [place] [facility] Feb 08, 2021 09:00 AM VA-TOBACCO FORMER USER [place] [facility] Feb 08, 2021 09:00 AM VA-TOBACCO QUIT 15 YRS OR MORE [place] [facility] October 09, 2019 01:12 PM VA-TOBACCO FORMER USER [place] [facility] October 09, 2019 01:12 PM VA-TOBACCO QUIT 5 TO < 15 YRS [place] [facility] Advance Directives: All historical and current Section [...] 2023@09:02 For complete results please go to [facility]. SPIROMETRY: Normal FVC 3.35 L (102%) [...] to bronchodilator. /robe/ Simon Mosqueda MD Director, [facility] Pulmonary Lab Signed: 12/25/2023 10:32 SIMON MOSQUEDA MD [place] [facility]
--- OUTSIDE RECORDS SUMMARY | 2024-09-08 10:28 | XMS_ITS | Encounter Summary ---
Author Name [facility] [place] Address [address] [place] [address] Care Team Providers Care Dramatic Arts Historian Name Role Phone NEHEMIAH CUEVAS Primary Care [...] [facility] Aug 11, 2014 [id number] [phone] DHAVAL SHAQ Wagner PATIENT ANTHEM BCBS [facility] MEDICARE SUPPLEMEN [facility] Aug 11, 2014 [id number] DHAVAL SHAQ Wagner [place] SUPPLEMEN [facility] 2 Aug 11, 2014 [id number] [phone] DHAVAL SHAQ Wagner [place] SUPPLEMEN [facility] MEDEX 2 Aug 11, 2014 [id number] DHAVAL BernardSHAQ HAI BCBS [facility] MEDICARE SUPPLEMEN ARTEMIO [facility] Aug 11, 2014 [id number] [phone] [place] SHAQ Wagner [facility] [place] ([place] MEDICARE SUPPLEMEN [facility] Aug 11, 2014 [id number] [place] SHAQ Wagner HUMANA [facility] (WNR) MEDICARE ADVANTAGE HUMAN A INSUR [facility] Jan 11, 2022 [id number] [phone] AR[place] SHAQ Wagner PATIENT USMANA [facility] (WNR) MEDICARE ADVANTAGE [facility] (WNR) Jan 11, 2022 [id number] [phone] [place] SHAQ Wagner PATIENT MEDICARE (WNR) MEDICARE () PART A Dec 11, 2014 PART A [id number] ARCHAMBEA Bernard,SHAQ PATIENT MEDICARE (WN) MEDICARE () PART A Aug 11, 2014 PART A [id number] ARCHAMBEA Bernard,SHAQ PATIENT MEDICARE (WNR) MEDICARE () PART B Aug 11, 2014 PART B [id number] ARCHAMBEA Bernard,SHAQ PATIENT MEDICARE (WNR) MEDICARE () PART A Aug 11, 2014 PART A [id number] [phone] ARCHAMBEA Bernard,SHAQ PATIENT MEDICARE (WNR) MEDICARE () PART B Aug 11, 2014 PART B [id number] [phone] [id number] ARCHAMBEA Bernard,SHAQ PATIENT MEDICARE (WNR) MEDICARE () PART A Aug 11, 2014 PART A [id number] ARCHAMBEA U,SHAQ PATIENT MEDICARE (WNR) MEDICARE () PART B Aug 11, 2014 PART B [id number] ARCHAMBEA Bernard,SHAQ PATIENT MEDICARE (WNR) MEDICARE () PART B Aug 11, 2014 PART B [id number] [place] SHAQ Wagner [facility] (WNR) MEDICARE ADVANTAGE [facility] (WNR) May 13, 2020 [id number] SHAQ WONG PATIENT Selected Encounter This [...] - MEDICINE [place] [facility] Mar 11, 2024 08:30 AM AMBULATORY - MEDICINE [facility] Mar 16, 2024 08:30 AM AMBULATORY - MEDICINE [place] [facility] Apr 07, 2024 10:00 AM AMBULATORY - MEDICINE [place] [facility] Apr 20, 2024 08:30 AM AMBULATORY - MEDICINE [place] Apr 28, 2024 11:00 AM AMBULATORY - MEDICINE [place] [facility] Jun 22, 2024 08:30 AM AMBULATORY - NONE [place] [facility] Jun 23, 2024 09:30 AM AMBULATORY - MEDICINE [place] [facility] Jul 03, 2024 08:30 AM AMBULATORY - MEDICINE [place] [facility] Jul 09, 2024 09:00 AM AMBULATORY - [place]ICINE [place] [facility] Jul 13, 2024 09:00 [facility] Jul 22, 2024 08:00 AM [facility] Lab Results: +/- 30 days of [...] Type Comment Jan 24, 2024 08:23 AM [place] [facility] METHADONE SCREEN URINE Specimen Type: URINE Comment: THIAGO test are qualitative, any L or H flags only indicate a [place] alert was sent. Ordering Provider: NEHEMIAH LORD Report Released Date/Time: Jan 22, 2024 11:28 AM Reporting Lab: [facility] [address] [facility] [address] [facility] [address] Performing Lab: [facility] [address] [facility] [address] METHADONE SCREEN None detected(Negative) L Negative Jan 24, 2024 08:23 AM [facility] ALCOHOL, ETHYL URINE PANEL URINE Spec imen [...] Jan 22, 2024 11:28 AM Reporting Lab: [facility] [address] [facility] [address] Performing Lab: [address] [address] ALCOHOL, ETHYL URINE NONE-DETECTED mg/dL NONE-DETECTED, cutoff = 10 mg/dL PH, THIAGO 5.8 [pH] 4-10 CREATININE, THIAGO 29.33 mg/dL >20 SP.GRAVITY, THIAGO 1.009 1.003-1.020 Jan 24, 2024 08:23 AM [facility] AMPHETAMINES SCREEN PANEL URINE Speci men Type: [...] Jan 22, 2024 11:28 AM Reporting Lab: [address] [address] Performing Lab: [address] [address] AMPHETAMINES SCREEN NONE-DETECTED None-D etected, Cutoff = 1000 ng/mL PH, THIAGO 5.8 [pH] 4-10 CREATININE, THIAGO 29.33 mg/dL >20 SP.GRAVITY, THIAGO 1.009 1.003-1.020 Jan 24, 2024 08:23 AM [place] FENTANYL SCREEN PANEL URINE Specimen Type: URINE [...] Jan 22, 2024 11:28 AM Reporting Lab: [address] [address] Performing Lab: [address] [address] FENTANYL SCREEN NONE-DETECTED ng/mL Nega tive: Cutoff = 1.00 ng/mL PH, THIAGO 5.7 [pH] 4-10 CREATININE, THIAGO 29.05 mg/dL >20 SP.GRAVITY, THIAGO 1.010 1.003-1.020 Jan 24, 2024 08:23 AM [facility] BENZODIAZEPINES SCREEN PANEL URINE Sp ecimen Type: [...] Jan 22, 2024 11:28 AM Reporting Lab: [address] [address] Performing Lab: [address] [address] BENZODIAZEPINES SCREEN NONE-DETECTED Non e-Detected, Cutoff = 200 ng/mL PH, THIAGO 5.8 [pH] 4-10 CREATININE, THIAGO 29.33 mg/dL >20 SP.GRAVITY, THIAGO 1.009 1.003-1.020 Jan 24, 2024 08:23 AM [place] [facility] BUPRENORPHINE SCREEN PANEL URINE Spec imen Type: [...] Jan 22, 2024 11:28 AM Reporting Lab: [address] [address] Performing Lab: [address] [address] BUPRENORPHINE (URINE) NONE-DETECTED None Detected, Cutoff = 10.0 ng/mL PH, THIAGO 5.8 [pH] 4-10 CREATININE, THIAGO 29.33 mg/dL >20 SP.GRAVITY, THIAGO 1.009 1.003-1.020 Jan 24, 2024 08:23 AM [place] [facility] COCAINE SCREEN PANEL URINE Specimen T ype: [...] Jan 22, 2024 11:28 AM Reporting Lab: [address] [address] Performing Lab: [address] [address] COCAINE SCREEN NONE-DETECTED None-Detect ed,Cutoff = 300 ng/mL PH, THIAGO 5.8 [pH] 4-10 CREATININE, THIAGO 29.33 mg/dL >20 SP.GRAVITY, THIAGO 1.009 1.003-1.020 Jan 24, 2024 08:23 AM [facility] CANNABINOIDS SCREEN PANEL URINE Speci men Type: [...] Jan 22, 2024 11:28 AM Reporting Lab: [address] [address] Performing Lab: [address] [address] CANNABINOIDS SCREEN POSITIVE HH None-Detect ed,Cutoff = 50 ng/mL PH, THIAGO 5.8 [pH] 4-10 CREATININE, THIAGO 29.33 mg/dL >20 SP.GRAVITY, THIAGO 1.009 1.003-1.020 Jan 24, 2024 08:23 AM [place] [facility] OPIATES SCREEN PANEL URINE Specimen T ype: [...] Jan 22, 2024 11:28 AM Reporting Lab: [address] [address] Performing Lab: [address] [address] OPIATES SCREEN NONE-DETECTED None-Detect ed, Cutoff = 300 ng/mL PH, THIAGO 5.8 [pH] 4-10 CREATININE, THIAGO 29.33 mg/dL >20 SP.GRAVITY, THIAGO 1.009 1.003-1.020 Jan 24, 2024 08:23 AM [place] [facility] OXYCODONE SCREEN PANEL URINE Specimen Type: URINE [...] Jan 22, 2024 11:28 AM Reporting Lab: [address] [address] Performing Lab: [address] [address] OXYCODONE SCREEN POSITIVE HH None-Detected, Cutoff = 100 ng/mL PH, THIAGO 5.8 [pH] 4-10 CREATININE, THIAGO 29.33 mg/dL >20 SP.GRAVITY, THIAGO 1.009 1.003-1.020 Social History: Smoking Status (Most current) and [...] 04, 2023 09:00 AM VA-TOBACCO FORMER USER [facility] Tobacco Use History This section includes a history of the smoking, or tobacco-related health factors, that were collected on or before the date of the Encounter. The data comes from the [place] facility where the Encounter took place. Date/Time Smoking Status/Tobacco Use Comment Joselyn blas Jul 04, 2023 09:00 AM VA-TOBACCO QUIT 15 YRS OR MORE [place] [facility] Mar 14, 2022 03:02 PM VA-TOBACCO FORMER USER IN [place] [facility] Mar 14, 2022 03:02 PM VA-TOBACCO QUIT 15 YRS OR MORE IN [place] [facility] Feb 08, 2021 09:00 AM VA-TOBACCO FORMER USER IN [place] [facility] Feb 08, 2021 09:00 AM VA-TOBACCO QUIT 15 YRS OR MORE IN [place] [facility] October 09, 2019 01:12 PM VA-TOBACCO FORMER USER IN [place] [facility] October 09, 2019 01:12 PM VA-TOBACCO QUIT 5 TO < 15 YRS [facility] Advance Directives: All historical and current [...] 2021 ADVANCE DIRECTIVE BEL ESCALANTE [facility] Encounter Notes: All associated encounter notes This section contains the clinical notes associated to the Encounter. Date/Time Encounter Note(s) Provider Source Feb 17, 2024 09:46 AM PHARMACY NOTE: LOCAL TITLE: V1 PHARMACY CUSTOMER CARE MEDICATION RENEWAL STANDARD TITLE: PHARMACY NOTE DATE OF NOTE: FEB 17, 2024@09:46 ENTRY DATE: FEB 17, 2024@09:47:05 AUTHOR: LAURYN DORMAN COSIGNER: URGENCY: STATUS: COMPLETED Date: Feb Division: [place] Pt referred by Pharmacy Call Center for medication renewal: Controlled substance Medications requested: [id number] OXYCODONE HCL 5MG/APAP 325MG TAB Defer to specialty clinic To be mailed . Please review and renew if appropriate. *This note was generated by [facility]/[place] Pharmacy Customer Care. If you have any questions or need assistance, do not contact this author. Please refer all questions to your local, on-site pharmacy departments. /robe/ LAURYN DORMAN CPhT Char Filter Tank Tender, [place]/Pharmacy Customer Care Signed: 02/17/2024 09:47 Receipt Acknowledged By: 02/18/2024 18:58 /robe/ WENDY CARDONA NP NURSE PRACTITIONER LAURYN DORMAN V IN [facility]
--- OUTSIDE RECORDS SUMMARY | 2024-09-08 10:28 | XMS_ITS | Encounter Summary ---
Author Name [facility] [place] [facility] [place] Address [address] [place] [address] Care Team Providers Care Analysis Consultant Name Role Phone NEHEMIAH CUEVAS Primary [...] Name Patient's Relationship to Policy Orellana [facility] Aug 11, 2014 [id number] [phone] DHAVAL SHAQ Wagner PATIENT ANTHEM BCBS [facility] MEDICARE SUPPLEMEN [facility] Aug 11, 2014 [id number] DHAVAL SHAQ Wagner PATIENT BCBS [place] MEDICARE SUPPLEMEN [facility] 2 Aug 11, 2014 [id number] DHAVAL SHAQ Wagner PATIENT [place] SUPPLEMEN [facility] Aug 11, 2014 [id number] DHAVAL BernardSHAQ HAI BCBS [facility] MEDIC[facility] SUPPLEMEN [facility] Aug 11, 2014 [id number] [phone] [place] SHAQ Wagner [facility] [place] SUPPLEMEN [facility] [place] [place] [facility] Aug 11, 2014 [id number] [place] SHAQ Wagner [employer]MANA [facility] (WNR) MEDICARE ADVANTAGE HUMAN A INSUR [facility] Jan 11, 2022 [id number] [phone] [place] SHAQ Wagner PATIENT USMANA [facility] (WNR) MEDICARE ADVANTAGE [facility] (WNR) Jan 11, 2022 [id number] [phone] [place] SHAQ Wagner PATIENT MEDICARE (WNR) MEDICARE () PART A Dec 11, 2014 PART A [id number] ARCHAMBEA Bernard,SHAQ PATIENT MEDICARE (WN) MEDICARE () PART A Aug 11, 2014 PART A [id number] [place] Bernard,SHAQ PATIENT MEDICARE ([place]) MEDICARE () PART B Aug 11, 2014 PART B [id number] [place] Bernard,SHAQ PATIENT MEDICARE ([place]) MEDICARE () PART A Aug 11, 2014 PART A [id number] [phone] [place] Bernard,SHAQ PATIENT MEDICARE ([place]) MEDICARE () PART B Aug 11, 2014 PART B [id number] [place] Bernard,SHAQ PATIENT MEDICARE ([place]NR) MEDICARE () PART A Aug 11, 2014 PART A [id number] ARCHAMBEA U,SHAQ PATIENT MEDICARE ([place]) MEDICARE () PART B Aug 11, 2014 PART B [id number] [phone] ARCH[place]BEA Bernard,SHAQ PATIENT MEDICARE ([place]NR) MEDICARE () PART B Aug 11, 2014 PART B [id number] [phone] [place] SHAQ Wagner [facility] (WNR) MEDICARE ADVANTAGE [facility] (WNR) May 13, 2020 [id number] SHAQ WONG PATIENT Selected Encounter This section includes the information on record at [place] for the Encounter. Date/Time Encounter Type Encounter Description Reason Pro vider Source Nov 22, 2023 03:20 PM Outpatient Encounter ADMIN PAT ACTIVTIES (MASNONCT) [...] [facility] [place] [facility] Dec 23, 2023 07:30 AM [place] [facility] [place] [facility] Dec 23, 2023 03:15 PM AMBULATORY - MEDICINE [facility] Jan 28, 2024 08:00 AM [place] [facility] [place] [facility] Jan 30, 2024 07:30 AM [place] [facility] [place] [facility] Mar 06, 2024 08:45 AM [place] [facility] [place] [facility] Mar 11, 2024 08:30 AM [facility] Mar 16, 2024 08:30 AM [place] [facility] [place] [facility] Apr 07, 2024 10:00 AM [place] [facility] [place] [facility] Apr 20, 2024 08:30 AM [facility] - MEDICINE [facility] Apr 28, 2024 11:00 AM [facility] Social History: Smoking Status (Most current) [...] 09:00 AM VA-TOBACCO [facility] Tobacco Use History This section includes a history of the smoking, or tobacco-related health factors, that were collected on or before the date of the Encounter. The data comes from the [place] facility where the Encounter took place. Date/Time Smoking Status/Tobacco Use Comment F acility Jul 04, 2023 09:00 AM VA-TOBACCO QUIT 15 YRS OR MORE [place] [facility] [place] [facility] Mar 14, 2022 03:02 PM VA-TOBACCO FORMER USER [place] [facility] [place] [facility] Mar 14, 2022 03:02 PM VA-TOBACCO QUIT 15 YRS OR MORE [place] [facility] [place] [facility] Feb 08, 2021 09:00 AM VA-TOBACCO FOR[place] [facility] [place] [facility] Feb 08, 2021 09:00 AM [facility] [place] [facility] October 09, 2019 01:12 PM VA-TOBACCO FORMER US[place] [facility] [place] [facility] October 09, 2019 01:12 PM VA-TOBACCO QUIT 5 TO < [address] [facility] Advance Directives: All historical and [...] 2023 03:20 PM PHARMACY NOTE: LOCAL TITLE: V1 PHARMACY CUSTOMER CARE MEDICATION RENEWAL STANDARD TITLE: PHARMACY NOTE DATE OF NOTE: NOV 22, 2023@15:20 ENTRY DATE: NOV 22, 2023@15:20:52 AUTHOR: DONALD DE OLIVEIRA COSIGNER: URGENCY: STATUS: COMPLETED Date: Nov Division: [facility] referred by Pharmacy Call Center for medication renewal: Controlled substance Medications requested: [id number] OXYCODONE HCL 5MG/APAP 325MG TAB Defer to primary care provider To be mailed . Please review and renew if appropriate. *This note was generated by [facility] Pharmacy Customer Care. If you have any questions or need assistance, do not contact this author. Please refer all questions to your local, on-site pharmacy departments. /robe/ DONALD DE OLIVEIRA CPhT [place] [place]/Pharmacy Customer Care Signed: 11/22/2023 15:21 Receipt Acknowledged By: 11/22/2023 16:18 /es/ NEHEMIAH CUEVAS MD PHYSICIAN 11/22/2023 15:51 /es/ CECILIO AL RN REGISTERED NURSE DONALD DE OLIVEIRA [place] [facility]
--- OUTSIDE RECORDS SUMMARY | 2024-09-08 10:28 | XMS_ITS | Encounter Summary ---
Author Name [facility] [facility] [place] Address [address] [place] [id number] Care Team Providers Care Rotary Helper Name Role Phone NEHEMIAH CUEVAS Primary [...] Patient's Relationship to Policy Orellana ANA RETIREE [facility] Aug 11, 2014 [id number] [phone] DHAVAL SHAQ Del Valle PATIENT [place] MEDICARE SUPPLEMEN ARTEMIO [facility] Aug 11, 2014 [id number] [phone] DHAVAL SHAQ Del Valle PATIENT BCBS OR MEDICARE SUPPLEMEN ARTEMIO MEDEX 2 Aug 11, 2014 [id number] DHAVAL SHAQ Del Valle PATIENT BCBS OR MEDICARE SUPPLEMEN ARTEMIO MEDEX 2 Aug 11, 2014 [id number] DHAVAL SHAQ Del Valle PATIENT BCBS [facility] SUPPLEMEN [facility] Aug 11, 2014 [id number] [phone] ARCHAMBEA SHAQ Del Valle PATIENT [place]BS [place] ([place] MEDICARE [facility] Aug 11, 2014 [id number] ARCHAMBEA SHAQ Del Valle PATIENT HUMANA [facility] (WNR) MEDICARE ADVANTAGE HUMAN A INSUR [facility] Jan 11, 2022 [id number] [phone] ARCHAMBEA SHAQ Del Valle PATIENT USMANA MCR (WNR) MEDICARE ADVANTAGE [facility] (WNR) Jan 11, 2022 [id number] [phone] ARCHAMBEA U,SHAQ PATIENT MEDICARE (WNR) MEDICARE (M) PART A Dec 11, 2014 PART A [id number] ARCHAMBEA U,SHAQ PATIENT MEDICARE (WNR) MEDICARE () PART B Aug 11, 2014 PART B [id number] ARCHAMBEA U,SHAQ PATIENT MEDICARE (WNR) MEDICARE () PART A Aug 11, 2014 PART A [id number] [phone] ARCHAMBEA U,SHAQ PATIENT MEDICARE (WNR) MEDICARE () PART B Aug 11, 2014 PART B [id number] ARCHAMBEA U,SHAQ PATIENT MEDICARE (WNR) MEDICARE () PART A Aug 11, 2014 PART A [id number] ARCHAMBEA U,SHAQ PATIENT MEDICARE (WNR) MEDICARE () PART B Aug 11, 2014 PART B [id number] ARCHAMBEA U,SHAQ PATIENT MEDICARE (WNR) MEDICARE (M) PART A Aug 11, 2014 PART A [id number] ARCHAMBEA U,SHAQ PATIENT MEDICARE (WNR) MEDICARE (M) PART B Aug 11, 2014 PART B [id number] [phone] ARCHAMBEA SHAQ Del Valle PATIENT [facility] (WNR) MEDICARE ADVANTAGE [facility] (WNR) May 13, 2020 [id number] [phone] ARCHAMBEA U,SHAQ PATIENT Selected Encounter This section includes the information on record at [place] for the Encounter. Date/Time Encounter Type Encounter Description Reason Provider Source Apr 20, 2024 08:30 AM OFFICE O/P EST HI 40 MIN PRIMARY CARE/MEDICINE ICD-10-CM I21.4 Non-ST elevation (NSTEMI) myocardial infarction NEHEMIAH BOWERS Lillian Encounter Template Text not used by [place] Assessments - Encounter Diagnoses This section includes the primary and secondary diagnoses documented for the Encounter. Date/Time Primary/Secondary Diagnosis Diagnosis Name Provider Source Apr 26, 2024 02:31 AM PRIMARY Non-ST elevation (NSTEMI) myocardial infarction NEHEMIAH BOWERS [facility] Apr 26, 2024 02:31 AM SECONDARY Abnormal weight loss NEHEMIAH BOWERS [facility] Apr 26, 2024 02:31 AM SECONDARY Estes's esophagus without dysplasia NEHEMIAH BOWERS [facility] Apr 26, 2024 02:31 AM SECONDARY Carcinoma in situ of prostate NEHEMIAH BOWERS [facility] Apr 26, 2024 02:31 AM SECONDARY Hyperlipidemia, unspecified NEHEMIAH BOWERS [facility] Apr 26, 2024 02:31 AM SECONDARY Iron deficiency anemia secondary to blood loss (chronic) NEHEMIAH BOWERS [facility] Apr 26, 2024 02:31 AM SECONDARY Restless legs syndrome NEHEMIAH BOWERS [facility] Apr 26, 2024 02:31 AM SECONDARY Solitary pulmonary nodule NEHEMIAH BOWERS [facility] Apr 26, 2024 02:31 AM SECONDARY Unspecified atrial fibrillation NEHEMIAH BOWERS [facility] Apr 26, 2024 02:31 AM SECONDARY Vertebrogenic low back pain NEHEMIAH BOWERS [facility] Plan of Treatment: Future Appointments (+ 6 [...] - MEDICINE [facility] [place] [facility] Jun 22, 2024 08:30 AM AMBULATORY - NONE [facility] [place] [facility] Jun 23, 2024 09:30 AM AMBULATORY - MEDICINE [facility] [place] [facility] Jul 03, 2024 08:30 AM AMBULATORY - MEDICINE [facility] [place] [facility] Jul 09, 2024 09:00 AM AMBULATORY - MEDICINE [facility] [place] [facility] Jul 13, 2024 09:00 AM [facility] Jul 22, 2024 08:00 AM AMBULATORY - MEDICINE [facility] Sep 08, 2024 09:45 AM AMBULATORY - MEDICINE [facility] [place] [facility] September 18, 2024 09:00 AM AMBULATORY - MEDICINE [facility] [place] [facility] Oct 15, 2024 08:30 AM AMBULATORY - MEDICINE [facility] [place] [...] of theEncounter. The data comes from all [facility]. 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 Ordering Provider: NEHEMIAH LORD Report Released Date/Time: Apr 15, 2024 02:47 PM Reporting Lab: [address] [address] Performing Lab: [address] [address] UREA NITROGEN 13 mg/dL 7-25 GLUCOSE 105 mg/dL H 65-100 SODIUM 136 mmol/L 135-145 POTASSIUM 4.9 mmol/L 3.5-5.0 CHLORIDE 101 mmol/L 100-110 CO2 25 meq/L 20-30 CREATININE, Serum 1.04 mg/dL 0.50-1.40 eGFR(CKD-EPI 2020) 75 mL/min >60 Apr 20, 2024 09:33 AM [facility] LIPID PANEL FASTING SERUM Specimen Ty pe: SERUM No comment entered. Ordering Provider: NEHEMIAH CUEVAS Report Released Date/Time: Apr 15, 2024 02:47 PM Reporting Lab: [address] [address] Performing Lab: [address] [address] CHOLESTEROL 118 mg/dL TRIGLYCERIDE 58 mg/dL 0-150 LDL calculated 55 mg/dL 0-129 CHOL/HDL 2.3 HDL CHOLESTEROL 51 mg/dL 40-60 Apr 20, 2024 09:33 AM [facility] HEMOGLOBIN A1C PANEL BLOOD Specimen T ype: [...] 15, 2024 02:47 PM Reporting Lab: [address] [address] Performing Lab: [address] [address] HEMOGLOBIN A1C 5.1 4.0-5.6 Apr 20, 2024 09:33 AM [facility] LIVER FUNCTION SERUM Specimen Type: S SHADY No comment entered. Ordering Provider: NEHEMIAH CUEVAS Report Released Date/Time: Apr 15, 2024 02:47 PM Reporting Lab: [facility] [address] [address] Performing Lab: [facility] [address] [address] PROTEIN,TOTAL 6.6 g/dL 6.0-8.3 ALBUMIN 3.8 g/dL 3.5-5.0 ALKALINE PHOSPHATASE 111 U/L 40-150 AST 18 U/L 5-34 ALT 34 U/L BILIRUBIN, TOTAL 0.3 mg/dL 0.2-1.2 Apr 20, 2024 09:33 AM [facility] TSH SERUM Sp ecimen Type: SERUM No comment entered. Ordering Provider: NEHEMIAH CUEVAS Report Released Date/Time: Apr 15, 2024 02:47 PM Reporting Lab: [facility] [address] Performing Lab: [facility] [address] TSH 2.13 u[IU]/mL 0.35-5.00 Apr 20, 2024 09:33 AM [facility] CBC AND DIFF (AUTO) BLOOD Specimen Ty pe: BLOOD No comment entered. Ordering Provider: NEHEMIAH CUEVAS Report Released Date/Time: Apr 15, 2024 02:47 PM Reporting Lab: [facility]N [facility] [address] [address] Performing Lab: [place] [facility] [address] [address] WBC 9.20 10*3/uL 4.50-11.00 RBC 3.75 10*6/uL [...] 10*3/uL 0.00-0.00 Apr 20, 2024 09:33 AM [facility] VITAMIN B12 SERUM Specimen Type: S SHADY No comment entered. Ordering Provider: NEHEMIAH CUEVAS Report Released Date/Time: Apr 20, 2024 09:28 AM Reporting Lab: [address] [address] Performing Lab: [address] [address] VITAMIN B12 1032 pg/mL H 200-900 Apr 20, 2024 09:33 AM [facility] FERRITIN SERUM Specimen Type: S SHADY No comment entered. Ordering Provider: NEHEMIAH CUEVAS Report Released Date/Time: Apr 20, 2024 09:28 AM Reporting Lab: [address] [address] Performing Lab: [address] [address] FERRITIN 63 ng/mL 20-300 Apr 20, 2024 09:33 AM [facility] IRON & TIBC PANEL SERUM Specimen Type : SERUM No comment entered. Ordering Provider: NEHEMIAH CUEVAS Report Released Date/Time: Apr 20, 2024 09:28 AM Reporting Lab: [facility] [address] [facility] [address] Performing Lab: [facility] [address] [facility] [address] TIBC 360 ug/dL 204-475 IRON 25 ug/dL [...] AM 97.3 48 149/56 99 132.2 20 [place] Social History: Smoking Status (Most current) [...] Lor gonzalez Oct 31, 2018 11:38 AM [place]-TOBACCO QUIT 15 YRS OR MORE [facility] Tobacco Use History This section includes a history of the smoking, or tobacco-related health factors, that were collected on or before the date of the Encounter. The data comes from the [place] facility where the Encounter took place. Date/Time Smoking Status/Tobacco Use Comment Joselyn blas Oct 31, 2018 11:38 AM [place]-TOBACCO QUIT 15 YRS OR MORE [facility] Jul 12, 2017 08:51 AM QUIT TOBACCO USE > 7 YEARS AGO [facility] Mar 30, 2016 08:29 AM QUIT TOBACCO USE > 7 YEARS AGO [facility] Mar 04, 2015 10:57 AM QUIT TOBACCO USE > 7 YEARS AGO [facility] Advance Directives: All historical and current Section [...] 21, 2021 ADVANCE DIRECTIVE BEL ESCALANTE MLKAVIN [facility] Encounter Notes: All associated encounter notes This section contains the clinical notes associated to the Encounter. Date/Time Encounter Note(s) Provider Source Jul 02, 2024 10:56 AM ACCOUNTING OF DISC LOSURES NOTE: LOCAL TITLE: STATE PRESCRIPTION DRUG MONITORING PROGRAM STANDARD TITLE: ACCOUNTING OF DISCLOSURES NOTE DATE OF NOTE: JUL 02, 2024@10:56:18 ENTRY DATE: JUL 02, 2024@10:56:18 AUTHOR: JOHN AL EXP COSIGNER: NEHEMIAH CUEVAS URGENCY: STATUS: COMPLETED This PDMP query was submitted by John Al on behalf of Nehemiah Cuevas. The clinical justification for this PDMP query is to review controlled substances prescribed outside of the [facility], and any additional information that may become available, as an important component of standard clinical care, and in accordance with [facility] policy. Patient information was shared with the PDMP [place]. The VA prescriber, for which I am a delegate, will be alerted of these PDMP findings through co-signature of this progress note. Prescription(s) which have been filled outside the [facility] in the last 90 days are noted. Hydromorphone 2 mg (qty - 10) filled on 04/10/2024 at [facility] written by Christine SNIDER with [employer] Coverage. /robe/ JOHN AL RN REGISTERED NURSE Signed: 07/02/2024 10:56 /robe/ WENDY CARDONA NP NURSE PRACTITIONER Cosigned: 07/05/2024 13:43 for NEHEMIAH CUEVAS MD PHYSICIAN JOHN AL Jul 02, 2024 10:56 AM PAIN MEDICATION MG T NOTE: LOCAL TITLE: OPIOID/CONTROLLED SUBSTANCE NOTE STANDARD TITLE: PAIN MEDICATION MGT NOTE DATE OF NOTE: JUL 02, 2024@10:56 ENTRY DATE: JUL 02, 2024@10:56:47 AUTHOR: JOHN AL EXP COSIGNER: URGENCY: STATUS: [...] standard clinical care and in accordance with [facility] policy. 07/29/23 09:13 Liliya Cuevas PDMP [facility] [place] 08/26/23 15:57 Ramsey Patel PDMP [facility] [place] 09/24/23 15:22 Ramsey Patel PDMP [facility] [place] 10/22/23 13:59 Ramsey Patel PDMP [facility] [place] 11/22/23 15:46 John Al PDMP [facility] [place] 12/23/23 13:28 Jimena Cox PDMP [facility] [place] 03/18/24 16:28 Jimena Cox PDMP [facility] [place] 03/26/24 11:35 John Al PDMP [facility] [place] 04/13/24 08:33 Liliya Cuevas PDMP [facility] [place] 05/12/24 15:39 John Al PDMP [facility] [place] 06/05/24 15:45 Liliya Cuevas PDMP [facility] [place] 07/02/24 10:48 Omar-MirekJohn del valle PDMP [facility] [place] Urine Drug Screen: A urine drug screen [...] /es/ JOHN AL RN REGISTERED NURSE Signed: 07/02/2024 10:57 JOHN AL Jun 05, 2024 03:45 PM ACCOUNTING OF DISC LOSURES NOTE: LOCAL TITLE: STATE PRESCRIPTION DRUG MONITORING PROGRAM STANDARD TITLE: ACCOUNTING OF DISCLOSURES NOTE DATE OF NOTE: JUN 05, 2024@15:45:51 ENTRY DATE: JUN 05, 2024@15:45:51 AUTHOR: Anali CUEVAS COSIGNER: URGENCY: STATUS: COMPLETED This PDMP query was submitted by Nehemiah Cuevas The clinical justification for this PDMP query is to review controlled substances prescribed outside of the [facility], and any additional information that may become available, as an important component of standard clinical care, and in accordance with [facility] policy. Patient information was shared with the PDMP [place]. No prescription(s) for controlled substances outside the VA were found in the last 90 days. /reba CUEVAS MD PHYSICIAN Signed: 06/05/2024 15:46 JOSE CUEVAS EDIN May 12, 2024 03:44 PM ACCOUNTING OF DISC LOSURES NOTE: LOCAL TITLE: STATE PRESCRIPTION DRUG MONITORING PROGRAM STANDARD TITLE: ACCOUNTING OF DISCLOSURES NOTE DATE OF NOTE: MAY 12, 2024@15:44:22 ENTRY DATE: MAY 12, 2024@15:44:22 AUTHOR: JOHN AL EXP COSIGNER: NEHEMIAH CUEVAS URGENCY: STATUS: COMPLETED This PDMP query was submitted by John Al on behalf of Nehemiah Cuevas. The clinical justification for this PDMP query is to review controlled substances prescribed outside of the [facility], and any additional information that may become available, as an important component of standard clinical care, and in accordance with [facility] policy. Patient information was shared with the PDMP [place]. The VA prescriber, for which I am a delegate, will be alerted of these PDMP findings through co-signature of this progress note. Prescription(s) which have been filled outside the VA in the last 90 days are noted. Hydromorphone 2 mg was filled on 04/10/24 with Commercial Insurance at [facility]. /reba AL RN REGISTERED NURSE Signed: 05/12/2024 15:44 /reba CUEVAS MD PHYSICIAN Cosigned: 05/20/2024 14:20 JOHN [...] standard clinical care and in accordance with [facility] policy. 05/24/23 10:07 Ravinder Bunn LPN PDMP [facility] [place] 05/29/23 15:39 Nadlucrecia-Liliya Wasserman PDMP [facility] [place] 06/30/23 09:50 Shadazausten-LisyOgalvino PDMP [facility] [place] 07/29/23 09:13 Jeff-Lisy,Ognjulián PDMP [facility] [place] 08/26/23 15:57 Ramsey Patel PDMP [facility] [place] 09/24/23 15:22 Ramsey Patel PDMP [facility] [place] 10/22/23 13:59 Ramsey Patel PDMP [facility] [place] 11/22/23 15:46 John lA PDMP [facility] [place] 12/23/23 13:28 Jimena Cox PDMP [facility] [place] 03/18/24 16:28 Jimena Cox PDMP [facility] [place] 03/26/24 11:35 John Al PDMP [facility] [place] 04/13/24 08:33 Jeff-Liliya Wasserman PDMP [facility] [place] 05/12/24 15:39 John Al PDMP [facility] [place] Urine Drug Screen: A urine drug screen [...] REGISTERED NURSE Signed: 05/12/2024 15:45 JOHN AL [facility] Apr 20, 2024 08:30 AM PHYSICIAN NOTE: [...] discharge follow-up Last visit 09/2023 PCP is [place] Other providers: -- Cardiology [place]- Dr. Segura [phone]- -- NE[facility] DR Kevin Bunch 2022 -->s/p foot surgery -- [facility]hab [facility]: Dr. Headley s/p Left L5-S1 and S1 transforaminal epidural steroid injection q4m -- urologist: Dr. Jorge So following annually [phone] (h/o channel opener) urology Dr Gaspar - [facility] f/u after hospital admission -- oncologist: Dr Corina Phoenix, Left lung nodule: [facility]- reports CT annually last 10/2021 -- GI: Dr. Barraza/Dr. Lawson- [facility] -- optometry: [facility] -- derm 10/02/18 w DX: SK, [place], Garcias angiomas RTC PRN Recent falls (x)none pt accompanied by his today [facility] Admitted 03/31/2024 Discharged on 04/10/2024 Discharge diagnoses: [...] apixaban discontinued March 2024 for hematuria -c/w [facility] ASA 81 mg -c/w amiodarone 200 mg daily -c/w metoprolol tartrate 25 mg BID -f/w non-[place] cardiology to address Watchman procedure #KADEN due to blood loss -Start iron supplementation 325 mg daily, instructed to take iron 4h apart from PPI -check CBC, iron panel prior to next visit # Hematuria -03/2024 CT A/P suspected enhancing mass at the left ureteral orifice measuring 6 mm--> scheduled with Dr. Cox on 04/28/2024 for cystoscopy Discontinued apixaban #Adenocarcinoma of prostate:completed radiation/ADT ([id number]) 01/2016 CT a/p, bone scan - no mets, thickened right bladder base (Negative cystoscopy) 2017 TRUS-benign Bx (PSA 0.69) [address] [facility] CT a/p showed Sclerotic posterior right iliac 1cm lesion suspicion for metastatic prostate cancer, -f/w [facility] urology annually PSA indefinitely, last PSA 0.26 (12/2023) urology f/u #Lumbosacral spondylosis with radiculopathy -Degeneration of intervertebral disc cervical spondylosis, -f/w rehab at [facility] -s/p injections --cancelled last injection due to acute issues with afib, hematurria -oxycodone TID prn #RLS: sx well controlled on Ropinirole #ex smoker: quit #lung nodule - f/w nonVA oncology annually stable nodule since 2014 - -Repeat CT chest with contrast In 2020 showed stable subcentimeter pulmonary nodules. CXR 06/2023 ([facility])-Stable hyperinflation b/l, CT chest with contrast 03/2024 showed stable 1.2cm pulmonary nodules, unchanged since 2020 #Estes's esophagus: asymptomatic on PPI UGIB early : NSAID-Induced : avoid NSAIDS- EGD: 01/2021 Estes's, IM, no dysplasia - repeat in 5 y -c/w omeprazole 40mg daily --> B12, Mg wnl f/w GI Dr. Barraza #Unintentional weight loss (since cdi) -stabilized on nutritional supplements now with 10 [...] this [facility] (local) and dispensed from another [place] or [place] facility (remote) as well as [...] JOHN AL RN REGISTERED NURSE 04/27/2024 10:21 /robe/ CHERELLE LINDQUIST 05/05/2024 ADDENDUM STATUS: COMPLETED March 2024 hospitalization notes received, [facility] to [facility]. /robe/ Joi Hill RN Registered Nurse Signed: 05/05/2024 08:04 05/14/2024 ADDENDUM STATUS: COMPLETED Spoke with 's , BEL. Advised as requested by PCP. She verbalized understanding. All questions answered. /robe/ JOHN AL RN REGISTERED NURSE Signed: 05/14/2024 13:11 JOSE CUEVAS [facility] Apr 10, 2024 12:18 PM ADMINISTRATIVE NOT E: LOCAL TITLE: ADMINISTRATIVE NOTE STANDARD TITLE: ADMINISTRATIVE NOTE DATE OF NOTE: APR 10, 2024@12:18 ENTRY DATE: APR 10, 2024@12:18:28 AUTHOR: CHERELLE KERR EXP COSIGNER: URGENCY: STATUS: COMPLETED [facility] [address] [place] [id number] [phone] * SHAQ Bhakta [address] [address] Date: APR 10, 2024 re: This is a reminder of your upcoming PCP appt with NEHEMIAH CUEVAS. Appointment Date: Apr@08:30 Appointment Type: In-person visit Fasting blood work NON fasting blood work LEFT MESSAGE ON VOICEMAIL ON HOME PHONE TO CONFIRM APPT Sincerely, Office Staff for: NEHEMIAH CUEVAS Primary Care Provider [facility] [address] [address] T [phone] F [phone] Upcoming Appointments: 04/20/2024 08:30 CWM/SO/PACT 5 04/29/2024 08:30 CWM/NO/MED REHAB/SPINE IN 06/22/2024 08:30 CWM/SO/NUTRITION1 07/22/2024 08:00 CWM/SO/PODIATRY/ROSS APPOINTMENT [facility]BB[facility]VIATION [facility]ENDRIC[facility] (SPOPC OR SO = [address]) (GOPC OR GO = [address]) (MAM or NO = [facility] [address]) (VVC - Video Call) (Tel-X Telephone Visit) (TH - Telehealth) /robe/ CHERELLE LINDQUIST Signed: 04/10/2024 12:19 CHERELLE KERR [facility]
--- OUTSIDE RECORDS SUMMARY | 2024-09-08 10:28 | XMS_ITS ---
Author Name [facility] [place] Address [address] [place] [id number] Care Team Providers Care Clergy Member Name Role Phone NEHEMIAH CUEVAS Primary [...] Name Patient's Relationship to Policy Orellana ANA [facility] Aug 11, 2014 [id number] [phone] DHAVAL SHAQ Wagner PATIENT [place] SUPPLEMEN ARTEMIO [facility] Aug 11, 2014 [id number] [phone] DHAVAL SHAQ Wagner PATIENT BCBS CT MEDICARE SUPPLEMEN ARTEMIO [facility]EX 2 Aug 11, 2014 [id number] [phone] DHAVAL SHAQ Wagner PATIENT BCBS CT MEDICARE SUPPLEMEN ARTEMIO MEDEX 2 Aug 11, 2014 [id number] DHAVAL BernardSHAQ PATIENT BCBS [facility] MEDICARE SUPPLEMEN [facility] Aug 11, 2014 [id number] [phone] ARCHOCTAVIOEA SHAQ Wagner [facility] [place] ([place] MEDICARE SUPPLEMEN [facility] [place] [facility] [place] [facility] Aug 11, 2014 [id number] [phone] ARCHOCTAVIOEA SHAQ WagnerA [facility] (WNR) MEDICARE ADVANTAGE HUMAN A INSUR [facility] Jan 11, 2022 [id number] [phone] ARCHOCTAVIOEA SHAQ Wagner PATIENT USMANA [facility] (WNR) MEDICARE ADVANTAGE [facility] (WNR) Jan 11, 2022 [id number] [phone] ARCHAMBEA Bernard,SHAQ PATIENT MEDICARE (WNR) MEDICARE () PART A Dec 11, 2014 PART A [id number] [phone] ARCHAMBEA Bernard,SHAQ PATIENT MEDICARE (WNR) MEDICARE () PART A Aug 11, 2014 PART A [id number] ARCHAMBEA Bernard,SHAQ PATIENT MEDICARE (WNR) MEDICARE () PART B Aug 11, 2014 PART B [id number] [phone] ARCHAMBEA Bernard,SHAQ PATIENT MEDICARE (WNR) MEDICARE () PART A Aug 11, 2014 PART A [id number] [phone] ARCHAMBEA U,SHAQ PATIENT MEDICARE (WNR) MEDICARE () PART B Aug 11, 2014 PART B [id number] ARCHAMBEA Bernard,SHAQ PATIENT MEDICARE (WNR) MEDICARE () PART A Aug 11, 2014 PART A [id number] ARCHAMBEA U,SHAQ PATIENT MEDICARE (WNR) MEDICARE () PART B Aug 11, 2014 PART B [id number] [phone] ARCHAMBEA U,SHAQ PATIENT MEDICARE ([place]NR) MEDICARE () PART B Aug 11, 2014 PART B [id number] ARCHAMBEA SHAQ Wagner [facility] (WNR) MEDICARE ADVANTAGE [facility] (WNR) May 13, 2020 [id number] SHAQ WONG PATIENT Selected Encounter This section includes the information on record at [place] for the Encounter. Date/Time Encounter Type Encounter Description Reason Provider Source October 02, 2023 08:00 AM OFFICE O/P EST HI 40 MIN PM&RS PHYSICIAN ICD-10-CM M46.1 Sacroiliitis, not elsewhere classified BERNABE PRIETO E Encounter Template Text not used by [place] Assessments - Encounter Diagnoses This section includes the primary and secondary diagnoses documented for the Encounter. Date/Time Primary/Secondary Diagnosis Diagnosis Name Provider Source October 02, 2023 08:47 AM PRIMARY Sacroiliitis, not elsewhere classified BERNABE PRIETO [place] [facility] [place] [facility] October 02, 2023 08:47 AM SECONDARY Low back pain, unspecified BERNABE PRIETO [place] [facility] [place] [facility] Plan of Treatment: Future Appointments (+ 6 months) and Future Tests (+/- 45 days) The Plan of Treatment section includes future care activities for the patient from all [place] [facility] This section includes future appointments and [...] - MEDICINE [place] [facility] [place] [facility] Oct 23, 2023 08:30 AM AMBULATORY - MEDICINE [facility] Nov 19, 2023 08:30 AM AMBULATORY - MEDICINE [facility] [place] [facility] Nov 28, 2023 07:30 AM AMBULATORY - REHAB MEDICIN E [facility] [place] [facility] Dec 23, 2023 07:30 AM AMBULATORY - MEDICINE [place] [facility] [place] [facility] Dec 23, 2023 03:15 PM AMBULATORY - MEDICINE [facility] Jan 28, 2024 08:00 AM AMBULATORY - MEDICINE [place] [facility] [place] [facility] Jan 30, 2024 07:30 AM AMBULATORY - MEDICINE [place] [facility] [place] [facility] Mar 06, 2024 08:45 AM AMBULATORY - MEDICINE [place] [facility] [place] [facility] Mar 11, 2024 08:30 AM [facility] Mar 16, 2024 08:30 AM AMBULATORY - MEDICINE [place] [facility] [place] [facility] Vital Signs: All taken on the encounter date This section contains inpatient and outpatient Vital Signs collected on the date of the Encounter. Date/Time Temperature Pulse Blood Pressure Respiratory Rate SP02 Pain Height Weight Body Mass Index Source October 02, 2023 08:37 AM 50 150/70 97 6 [place] [facility] [place] [facility] October 02, 2023 08:17 AM 146/80 [place] [facility] [place] [facility] October 02, 2023 08:01 AM 44 18 98 6 141 21 [place] [facility] [place] [facility] Social History: Smoking Status (Most current) [...] 04, 2023 09:00 AM VA-TOBACCO FORMER USER [place] [facility] [place] [facility] Tobacco Use History This section includes a history of the smoking, or tobacco-related health factors, that were collected on or before the date of the Encounter. The data comes from the [place] facility where the Encounter took place. Date/Time Smoking Status/Tobacco Use Comment F acility Jul 04, 2023 09:00 AM VA-TOBACCO QUIT 15 YRS OR MORE [facility] [place] [facility] Mar 14, 2022 03:02 PM VA-TOBACCO FORMER USER [place] [facility] [place] [facility] Mar 14, 2022 03:02 PM VA-TOBACCO QUIT 15 YRS OR MORE [facility] [place] [facility] Feb 08, 2021 09:00 AM VA-TOBACCO FORMER USER [place] [facility] [place] [facility] Feb 08, 2021 09:00 AM VA-TOBACCO QUIT 15 YRS OR MORE [facility] [place] [facility] October 09, 2019 01:12 PM VA-TOBACCO FORMER USER [place] [facility] [place] [facility] October 09, 2019 01:12 PM VA-TOBACCO QUIT 5 TO < 15 YRS [facility] Advance Directives: All historical and [...] Feb 21, 2021 ADVANCE DIRECTIVE BEL ESCALANTE [facility] Radiology Reports: +/- 30 days [...] the Encounter. The data comes from all [place] treatment facilities. Date/Time Radiology Report Provider Source October 02, 2023 08:18 AM FLUOROSCOPIC NITIN NCE FOR NEEDLE PLACEMENT: SHAQ GREGORIO [id number] -[id number] M Exm Date: OCTOBER 02, 2023@08:18 Req Phys: BERNABE PRIETO Pat Loc: CWM/NO/MED REHAB/SPINE INJ (Re Img Loc: [facility]/BUILDING 1 Service: Unknown [facility] , (Case [id number] COMPLETE) FLUOROSCOPIC GUIDANCE FOR NEEDLE (RAD Detailed) CPT:85601 Proc Modifiers : LEFT Reason for Study: SI joint injection Clinical History: Report Status: Verified Date Reported: OCTOBER 02, 2023 Date Verified: OCTOBER 02, 2023 Grocery Store Courtesy Clerk E-Sig:/ES/LOU VICTORIA JR Report: Study: Pain injection [...] immediate attention required Primary Interpreting Staff: LOU VITCORIA JR, Radiologist (Grocery Store Courtesy Clerk) /LOU WASHINGTON JR [facility] Encounter Notes: All associated encounter [...] and 1 mL of 1%lidocaine. Lot #: [id number] Exp: 03/2025 LOCAL ANESTHETIC INJECTED: 1 mL [...] in Imed. TIME OUT NOTE TIME: September@08:19 [place] correctly stated: [X]Full name: SHAQ GREGORIO [X]Last #: [id number] [X]: Aug STAFF NAME: Alivia [...] after the procedure. The patient (or responsible democrat) was given post-procedure and discharge instructions to follow at home. The patient was discharged in stable condition. Pre-procedure pain level: 10 Post-procedure pain level: 10 ASSESSMENT: Left sacroiliac joint dysfunction and left [...] patient wishes to continue injections at the [place], he will contact me or PCP for [...] of active outpatient prescriptions dispensed from this [place] (local) and dispensed from another [place] or [facility] facility (remote) as well [...] or non-VA provider. /robe/ BERNABE PRIETO DO PROPERTY MAINTENANCE TECHNICIAN Signed: 10/02/2023 08:47 BERNABE PRIETO [facility] [place] [facility] October 02, 2023 08:20 AM DISCHARGE NOTE: LOCAL TITLE: DISCHARGE INSTRUCTIONS/OUTPATIENT STANDARD TITLE: DISCHARGE NOTE DATE OF NOTE: OCTOBER 02, 2023@08:20 ENTRY DATE: OCTOBER 02, 2023@08:20:19 AUTHOR: BERNABE PRIETO EXP COSIGNER: URGENCY: STATUS: COMPLETED Your ATTENDING [...] are experiencing problems contact: TELEPHONE ASSISTANCE at [phone] or extension [phone] Or [phone] extension [phone] (MARAH Bunch) or extension [phone] (LUZMARIA Jett) If you are in an emotional crisis, feeling suicidal or having any troubling or self-destructive or violent impulses - please call [phone] (or [phone]); press 1 for Veterans to ask for [...] time of discharge. /robe/ BERNABE PRIETO DO PROPERTY MAINTENANCE TECHNICIAN Signed: 10/02/2023 09:39 BERNABE PRIETO [facility]L [facility]
--- OUTSIDE RECORDS SUMMARY | 2024-09-08 10:28 | XMS_ITS | Encounter Summary ---
Author Name [place] Address [address] [place] [address] Care Team Providers Care Cloth Cutting Inspector Name Role Phone NEHEMIAH CUEVAS Primary [...] Patient's Relationship to Policy Orellana ANA [facility] Aug 11, 2014 [id number] [phone] DHAVAL SHAQ Wagner PATIENT ANTHEM BCBS [facility] MEDICARE SUPPLEMEN ARTEMIO [facility] Aug 11, 2014 [id number] DHAVAL SHAQ Wagner PATIENT [place]BS [place] MEDICARE SUPPLEMEN ARTEMIO MEDEX 2 Aug 11, 2014 [id number] DHAVAL SHAQ Wagner PATIENT [place]BS [place] MEDICARE SUPPLEMEN ARTEMIO MEDEX 2 Aug 11, 2014 [id number] [phone] DHAVAL BernardSHAQ HAI BCBS [facility] MED[facility] SUPPLEMEN ARTEMIO [facility] Aug 11, 2014 [id number] [phone] ARCHAMBEA SHAQ Wagner [facility] [place] ([place] MEDICARE SUPPLEMEN [facility] [place] [place] [facility] Aug 11, 2014 [id number] ARCHAMBEA SHAQ Wagner HUMANA [facility] (WNR) MEDICARE ADVANTAGE HUMAN A INSUR [place] [facility] Jan 11, 2022 [id number] [phone] ARCHAMBEA SHAQ Wagner PATIENT USMANA [facility] (WNR) MEDICARE ADVANTAGE [facility] (WNR) Jan 11, 2022 [id number] [phone] ARCHAMBEA SHAQ Wagner PATIENT MEDICARE (WNR) MEDICARE () PART A Dec 11, 2014 PART A [id number] [phone] ARCHAMBEA Bernard,SHAQ PATIENT MEDICARE (WN) MEDICARE () PART A Aug 11, 2014 PART A [id number] ARCHAMBEA Bernard,SHAQ PATIENT MEDICARE (WNR) MEDICARE () PART B Aug 11, 2014 PART B [id number] [phone] ARCHAMBEA Bernard,SHAQ PATIENT MEDICARE (WNR) MEDICARE () PART A Aug 11, 2014 PART A [id number] ARCHAMBEA Bernard,SHAQ PATIENT MEDICARE (WNR) MEDICARE () PART B Aug 11, 2014 PART B [id number] ARCHAMBEA Bernard,SHAQ PATIENT MEDICARE (WNR) MEDICARE () PART A Aug 11, 2014 PART A [id number] ARCHAMBEA U,SHAQ PATIENT MEDICARE (WNR) MEDICARE () PART B Aug 11, 2014 PART B [id number] ARCHAMBEA Bernard,SHAQ PATIENT MEDICARE (WNR) MEDICARE () PART B Aug 11, 2014 PART B [id number] ARCHAMBEA SHAQ Wagner [facility] (WNR) MEDICARE ADVANTAGE [facility] (WNR) May 13, 2020 [id number] [phone] SHAQ WONG PATIENT Selected Encounter This section includes the information on record at [place] for the Encounter. Date/Time Encounter Type Encounter Description Reason Pro vider Source Mar 20, 2024 04:45 PM Outpatient Encounter ADMIN PAT ACTIVTIES (MASNONCT) [...] [facility] [place] [facility] Apr 20, 2024 08:30 AM AMBULATORY - MEDICINE [facility] Apr 28, 2024 11:00 AM AMBULATORY - MEDICINE [place] [facility] [place] [facility] Jun 22, 2024 08:30 AM AMBULATORY - NONE [place] [facility] [place] [facility] Jun 23, 2024 09:30 AM AMBULATORY - MEDICINE [place] [facility] [place] [facility] Jul 03, 2024 08:30 AM AMBULATORY - MEDICINE [place] [facility] [place] [facility] Jul 09, 2024 09:00 AM AMBULATORY - MEDICINE [place] [facility] [place] [facility] Jul 13, 2024 09:00 AM AMBULATORY - MEDICINE [facility] Jul 22, 2024 08:00 AM AMBULATORY - MEDICINE [facility] Sep 08, 2024 09:45 AM AMBULATORY - MEDICINE [place] [facility] [place] [facility] Active, Pending, and Scheduled Orders This section includes a listing of several types of active, pending, and scheduled orders, including clinic medications orders, diagnostic test orders, procedure orders and consult orders; where the start date of the order is 45 days before the date of the Encounter or 45 days after the date of theEncounter. The data comes from all [facility]. Test Date/Time Test Type Test Details Facility Name Apr 20, 2024 01:10 PM Consult Order COMMUNITY CARE-UROLOGY Cons Medical Records Secretary's [facility] Social History: Smoking Status (Most current) [...] 04, 2023 09:00 AM [facility] Tobacco Use History This section includes a history of the smoking, or tobacco-related health factors, that were collected on or before the date of the Encounter. The data comes from the [place] facility where the Encounter took place. Date/Time Smoking Status/Tobacco Use Comment Joselyn acdaniel Jul 04, 2023 09:00 AM VA-TOBACCO QUIT 15 YRS OR MORE [place] [facility] [place] [facility] Mar 14, 2022 03:02 PM VA-TOBACCO FORMER USER [place] [facility] [place] [facility] Mar 14, 2022 03:02 PM VA-TOBACCO QUIT 15 YRS OR MORE [place] [facility] [place] [facility] Feb 08, 2021 09:00 AM VA-TOBACCO FORMER USER [place] [facility] [place] [facility] Feb 08, 2021 09:00 AM VA-TOBACCO QUIT 15 YRS OR MORE [place] [facility] [place] [facility] October 09, 2019 01:12 PM VA-TOBACCO FORMER USER [place] [facility] [place] [facility] October 09, 2019 01:12 PM VA-TOBACCO QUIT 5 TO < 15 YRS [place] [facility] Advance Directives: All historical and current [...] 21, 2021 ADVANCE DIRECTIVE BEL ESCALANTE [facility] Encounter Notes: All associated encounter notes This section contains the clinical notes associated to the Encounter. Date/Time Encounter Note(s) Provider Source Mar 20, 2024 04:45 PM PHARMACY NOTE: LOCAL TITLE: V1 PHARMACY CUSTOMER CARE MEDICATION RENEWAL STANDARD TITLE: PHARMACY NOTE DATE OF NOTE: MAR 20, 2024@16:45 ENTRY DATE: MAR 20, 2024@16:45:10 AUTHOR: RIA WEBBER COSIGNER: URGENCY: STATUS: COMPLETED Date: Mar Division: [facility] referred by Pharmacy Call Center for medication renewal: Controlled substance Medications requested: [id number] OXYCODONE HCL 5MG/APAP 325MG TAB Defer to primary care provider To be mailed . Please review and renew if appropriate. *This note was generated by [facility] Pharmacy Customer Care. If you have any questions or need assistance, do not contact this author. Please refer all questions to your local, on-site pharmacy departments. /robe/ RIA WEBBER [employer] [place], [place]/Pharmacy Customer Care Signed: 03/20/2024 16:45 Receipt Acknowledged By: 03/23/2024 23:55 /es/ NEHEMIAH CUEVAS MD PHYSICIAN 03/26/2024 11:39 /es/ CECILIO AL RN REGISTERED NURSE [facility]IA WEBBER [place] [facility]
--- OUTSIDE RECORDS SUMMARY | 2024-09-08 10:28 | XMS_ITS | Encounter Summary ---
Author Name [facility] [place] [facility] [place] Address [address] [place] [id number] Care Team Providers Care Manufacturing Process Technician Name Role Phone NEHEMIAH CUEVAS Primary [...] Relationship to Policy [facility] Aug 11, 2014 [id number] [phone] DHAVAL SHAQ Wagner PATIENT ANTHEM [place] MEDICARE SUPPLEMEN ARTEMIO [facility] Aug 11, 2014 [id number] [phone] DHAVAL SHAQ Wagner PATIENT [place] SUPPLEMEN ARTEMIO [facility]EX 2 Aug 11, 2014 [id number] DHAVAL SHAQ [place] ARTEMIO MEDEX 2 Aug 11, 2014 [id number] DHAVAL SHAQ Wagner PATIENT BCBS [facility] SUPPLEMEN [facility] Aug 11, 2014 [id number] [phone] ARCHAMBEA SHAQ Wagner PATIENT [facility] (BLUECARD) MEDICARE [facility] Aug 11, 2014 [id number] [phone] ARCHAMBEA SHAQ Wagner PATIENT HUMANA [facility] (WNR) MEDICARE ADVANTAGE HUMAN A INSUR [facility] Jan 11, 2022 [id number] [phone] ARCHOCTAVIOEA SHAQ Wagner PATIENT [employer] [facility] (WNR) MEDICARE ADVANTAGE [facility] (WNR) Jan 11, 2022 [id number] [phone] ARCHAMBEA SHAQ Wagner PATIENT MEDICARE (WNR) MEDICARE (M) PART A Dec 11, 2014 PART A [id number] [phone] ARCHAMBEA Bernard,SHAQ PATIENT MEDICARE (WNR) MEDICARE (M) PART A Aug 11, 2014 PART A [id number] [phone] ARCHAMBEA SHAQ Wagner PATIENT MEDICARE (WNR) MEDICARE (M) PART B Aug 11, 2014 PART B [id number] ARCHAMBEA SHAQ Wagner PATIENT MEDICARE (WNR) MEDICARE () PART A Aug 11, 2014 PART A [id number] [phone] ARCHAMBEA U,SHAQ PATIENT MEDICARE (WNR) MEDICARE (M) PART B Aug 11, 2014 PART B [id number] ARCHAMBEA Bernard,SHAQ PATIENT MEDICARE (WNR) MEDICARE (M) PART A Aug 11, 2014 PART A [id number] [phone] ARCHAMBEA U,SHAQ PATIENT MEDICARE (WNR) MEDICARE (M) PART B Aug 11, 2014 PART B [id number] ARCHAMBEA U,SHAQ PATIENT MEDICARE (WNR) MEDICARE (M) PART B Aug 11, 2014 PART B [id number] [phone] ARCHAMBEA SHAQ Wagner PATIENT [facility] (WNR) MEDICARE ADVANTAGE [facility] (WNR) May 13, 2020 [id number] ARCHAMBEA SHAQ Wagner PATIENT Selected Encounter This section includes the information on record at [place] for the Encounter. Date/Time Encounter Type Encounter Description Reason Provider Source Oct 23, 2023 08:30 AM OFFICE O/P EST MOD 30 MIN PODIATRY ICD-10-CM L60.0 Ingrowing nail RINA CESAR [facility] Encounter Template Text [...] - MEDICINE [place] [facility] [place] [facility] Nov 28, 2023 07:30 AM AMBULATORY - REHAB MEDICIN [place] [facility] [place] [facility] Dec 23, 2023 07:30 AM AMBULATORY - [place]ICINE [place] [facility] [place] [facility] Dec 23, 2023 03:15 PM AMBULATORY - MEDICINE [facility] Jan 28, 2024 08:00 AM AMBULATORY - [place]ICINE [place] [facility] [place] [facility] Jan 30, 2024 07:30 AM AMBULATORY - [place]ICINE [place] [facility] [place] [facility] Mar 06, 2024 08:45 AM AMBULATORY - MEDICINE [place] [facility] [place] [facility] Mar 11, 2024 08:30 AM AMBULATORY - MEDICINE [facility] Mar 16, 2024 08:30 AM AMBULATORY - MEDICINE [place] [facility] [place] [facility] Apr 07, 2024 10:00 AM AMBULATORY - MEDICINE [place] [facility] [place] [facility] Apr 20, 2024 08:30 AM AM[facility]ULATORY - [facility]IC[facility] Social History: Smoking Status (Most [...] AM VA-TOBACCO QUIT 15 YRS OR MORE [place] Tobacco Use History This section includes a history of the smoking, or tobacco-related health factors, that were collected on or before the date of the Encounter. The data comes from the [place] facility where the Encounter took place. Date/Time Smoking Status/Tobacco Use Comment F acility Oct 31, 2018 11:38 AM VA-TOBACCO QUIT 15 YRS OR MORE [place] Jul 12, 2017 08:51 AM QUIT TOBACCO USE > 7 YEARS AGO [place] Mar 30, 2016 08:29 AM QUIT TOBACCO USE > 7 YEARS AGO [place] Mar 04, 2015 10:57 AM QUIT TOBACCO USE > 7 YEARS AGO [place] Advance Directives: All historical and current Section Date Range: From patient's date of to the date document was created. This section includes ALL of a patient's completed or amended [place] Advance and Rescinded Directives. The entries below indicate that a directive exists for the patient, but an actual copy is not included with this document. The data comes from all [facility]. Date Advance Directives Provider Source Feb 21, 2021 ADVANCE DIRECTIVE BEL ESCALANTE [facility] Radiology Reports: +/- 30 days of the [...] NITIN NCE FOR NEEDLE PLACEMENT: SHAQ GREGORIO [id number] M Exm Date: OCTOBER 02, 2023@08:18 Req Phys: BERNABE PRIETO THI Pat Loc: [facility]/NO/MED REHAB/SPINE INJ (Re Img Loc: [facility] 1 Service: Unknown [facility] , (Case [id number] COMPLETE) FLUOROSCOPIC GUIDANCE FOR NEEDLE (RAD Detailed) CPT:56626 Proc Modifiers : LEFT Reason for Study: SI joint injection Clinical History: Report Status: Verified Date Reported: OCTOBER 02, 2023 Date Verified: OCTOBER 02, 2023 [place]acer E-Sig:/ES/LOU VICTORIA JR Report: Study: Pain injection [...] Primary Interpreting Staff: LOU VICTORIA JR, Radiologist (Bisque Placer) /LOU W[place] JR [facility] Encounter Notes: All associated encounter [...] Yes Patient/caregiver has difficulty examining feet: No /es/ RINA CESAR DPM GLASS BULB SILVERER Signed: 10/23/2023 08:52 RINA CESAR Oct 23, 2023 07:23 AM PODIATRY NOTE: LOCAL TITLE: PODIATRY NOTE STANDARD TITLE: PODIATRY NOTE DATE OF NOTE: OCT 23, 2023@07:23 ENTRY DATE: OCT 23, 2023@07:23:31 AUTHOR: RINA CESAR EXP COSIGNER: URGENCY: STATUS: COMPLETED NOTE: HAS RECEIVED BOTH COVID VACCINE DOSES + BOOSTER AT [facility] LAST SEEN FOR TREATMENT: 05/22/2023 s: Pt. is a 73 yo alert [facility] MALE who is seen for CONTINUED [...] present physical-medical status. Protective sensation utilizing a Winona-Elaine lOg monofilament is 10/10 bilateral. *NOTE: *YEARLY [...] JLV. Allergies/ADRs (Tool #5) FACILITY ALLERGY/ADR -------- [facility] NO KNOWN ALLERGIES [place] [facility] [place] [facility] CODEINE [place] [facility] [place] [facility] NEURONTIN Med Recon NoGlossary (Tool #1) INCLUDED IN THIS LIST: Alphabetical list of active outpatient prescriptions dispensed from this [facility] (local) and dispensed from another [place] or DoD facility (remote) as well as [...] the patient into personal health records (i.e. [facility]) are NOT included in this list. Non-VA [...] TABLET BY MOUTH EVERY 12 HOURS Rx# [id number] Last Released: 09/16/23 Qty/Days Supply: Rx Expiration Date: 06/20/24 Refills Remainin OUTPT DRONEDARONE 400MG TAB (Status = ) TAKE ONE TABLET BY MOUTH TWICE DAILY FOR PAROXYSMAL ATRIAL FIBRILLATION Rx# [id number] Last Released: 06/20/23 Qty/Days Supply: Rx Expiration Date: 09/16/23 Refills Remainin Indication: FOR PAROXYSMAL ATRIAL FIBRILLATION OUTPT DRONEDARONE 400MG TAB (Status = Active) TAKE ONE TABLET BY MOUTH TWICE DAILY Rx# [id number] Last Released: 09/19/23 Qty/Days Supply: Rx Expiration Date: 09/17/24 Refills Remainin OUTPT FLUTICASONE PROP 50MCG 120D NASAL INHL (Status = Active) INSTILL 1 SPRAY INTO EACH NOSTRIL AT BEDTIME Rx# [id number] Last Released: 11/12/22 Qty/Days Supply: 06/11 Rx Expiration Date: 11/09/23 Refills Remainin Indication: FOR NASAL IRRITATION/INFLAMMATION OUTPT LATANOPROST 0.005% OPH SOLN (Status = Discontinued) 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 Rx Expiration Date: 08/12/24 Refills Remainin Indication: FOR WIDE-ANGLE GLAUCOMA OUTPT LIDOCAINE 5% PATCH (Status = Discontinued) APPLY 1 PATCH TOPICALLY ONCE DAILY FOR NERVE PAIN (LEAVE PATCH ON FOR 12 HOURS, THEN REMOVE PATCH) Rx# [id number] Last Released: 06/08/23 Qty/Days Supply: Rx Expiration Date: 09/04/23 Refills Remainin Indication: FOR NERVE PAIN OUTPT LIDOCAINE 5% PATCH (Status = Active) APPLY 1 PATCH TOPICALLY ONCE DAILY FOR NERVE PAIN (LEAVE PATCH ON FOR 12 HOURS, THEN REMOVE PATCH) Rx# [id number] Last Released: 10/14/23 Qty/Days Supply: Rx Expiration Date: 10/11/24 Refills Remainin Indication: FOR NERVE PAIN OUTPT LOVASTATIN 20MG TAB (Status = Discontinued) TAKE ONE TABLET BY MOUTH AT BEDTIME FOR CHOLESTEROL -- AVOID GRAPEFRUIT JUICE Rx# [id number] Last Released: 07/13/23 Qty/Days Supply: Rx Expiration Date: 10/10/23 Refills Remainin OUTPT LOVASTATIN 20MG TAB (Status = Active) TAKE ONE TABLET BY MOUTH AT BEDTIME FOR CHOLESTEROL -- AVOID GRAPEFRUIT JUICE Rx# [id number] Last Released: 10/14/23 Qty/Days Supply: Rx Expiration Date: 10/11/24 Refills Remainin OUTPT METOPROLOL TARTRATE 25MG TAB (Status = ) TAKE ONE TABLET BY MOUTH TWICE DAILY FOR BLOOD PRESSURE/HEART Rx# [id number] Last Released: 06/22/23 Qty/Days Supply: 180/ Rx Expiration Date: 09/16/23 Refills Remainin OUTPT METOPROLOL TARTRATE 25MG TAB (Status = Active) TAKE ONE-HALF TABLET BY MOUTH TWICE DAILY FOR BLOOD PRESSURE/HEART Rx# [id number] Last Released: 10/10/23 Qty/Days Supply: 90/ Rx Expiration Date: 10/08/24 Refills Remainin Indication: FOR HIGH BLOOD PRESSURE OUTPT NUTRITION SUPL ENSURE PLUS/VANILLA LIQ (Status = Active) DRINK 1 CAN BY MOUTH TWICE DAILY Rx# [id number] Last Released: 10/12/23 Qty/Days Supply: Rx Expiration Date: 04/29/24 Refills Remainin OUTPT OMEPRAZOLE 20MG EC CAP (Status = Discontinued) TAKE TWO CAPSULES BY MOUTH EVERY MORNING 30 MINUTES BEFORE BREAKFAST Rx# [id number] Last Released: 07/13/23 Qty/Days Supply: Rx Expiration Date: 09/22/23 Refills Remainin OUTPT OMEPRAZOLE 20MG EC CAP (Status = Active) TAKE TWO CAPSULES BY MOUTH EVERY MORNING 30 MINUTES BEFORE BREAKFAST Rx# [id number] Last Released: 10/14/23 Qty/Days Supply: Rx Expiration Date: 10/11/24 Refills Remainin OUTPT ONDANSETRON HCL 4MG TAB (Status = Active) TAKE ONE TABLET BY MOUTH ONCE DAILY NEEDED FOR VOMITING/NAUSEA Rx# [id number] Last Released: 04/01/23 Qty/Days Supply: Rx Expiration Date: 03/29/24 Refills Remainin OUTPT OXYCODONE HCL 5MG/APAP 325MG TAB (Status = ) TAKE 1 TABLET BY MOUTH THREE TIMES DAILY NEEDED FOR PAIN NEXT FILL 08/02/23 Rx# [id number] Last Released: 07/02/23 Qty/Days Supply: Rx Expiration Date: 07/30/23 Refills Remainin Indication: FOR PAIN OUTPT OXYCODONE HCL 5MG/APAP 325MG TAB (Status = Discontinued) TAKE 1 TABLET BY MOUTH THREE TIMES DAILY NEEDED FOR PAIN NEXT FILL 08/30/23 Rx# [id number] Last Released: 07/31/23 Qty/Days Supply: Rx Expiration Date: 08/28/23 Refills Remainin Indication: FOR PAIN OUTPT OXYCODONE HCL 5MG/APAP 325MG TAB (Status = Discontinued) TAKE 1 TABLET BY MOUTH THREE TIMES DAILY NEEDED FOR PAIN NEXT FILL 09/27/23 Rx# [id number] Last Released: 08/28/23 Qty/Days Supply: Rx Expiration Date: 09/26/23 Refills Remainin Indication: FOR PAIN OUTPT OXYCODONE HCL 5MG/APAP 325MG TAB (Status = Active) TAKE 1 TABLET BY MOUTH THREE TIMES DAILY NEEDED FOR PAIN NEXT FILL 10/25/23 Rx# [id number] Last Released: 09/25/23 Qty/Days Supply: Rx Expiration Date: 10/25/23 Refills Remainin Indication: FOR PAIN OUTPT ROPINIROLE HCL 0.25MG TAB (Status = Active) TAKE ONE TABLET BY MOUTH DAILY Rx# [id number] Last Released: 09/03/23 Qty/Days Supply: Rx Expiration [...] BILAT SENSORY CHECK: Includes 10 gram Monofilament (Winona-Elaine) test of sensation. Intact (Greater than or [...] Vascular: Last scheduled appointment: MAY 22, 2023@08:00 CWDami/SOLANGE/PODIATRY/ARSENIO Comment: 05/22/2023 /robe/ RINA CESAR DPM GLASS BULB SILVERER Signed: 10/23/2023 08:52 RINA CESAR
--- OUTSIDE RECORDS SUMMARY | 2024-09-08 10:28 | XMS_ITS | Encounter Summary ---
Author Name [facility] [facility] [place] [facility] [place] [facility] [place] Address [address] [place] [id number] Care Team Providers Care Business Intern Name Role Phone NEHEMIAH CUEVAS Primary Care [...] Patient's Relationship to Policy Orellana [facility]NA [facility] Aug 11, 2014 [id number] [phone] DHAVAL SHAQ Wagner PATIENT ANTHEM [place] MED[place]ARE SUPPLEMEN [facility] Aug 11, 2014 [id number] [phone] DHAVAL SHAQ Wagner [place]IENT [place] SUPPLEMEN ARTEMIO MEDEX 2 Aug 11, 2014 [id number] DHAVAL SHAQ Wagner PATIENT [place] SUPPLEMEN [facility] MEDEX 2 Aug 11, 2014 [id number] DHAVAL SHAQ Wagner PATIENT BCBS [facility] MEDICARE SUPPLEMEN [facility] Aug 11, 2014 [id number] [phone] ARCHAMBEA SHAQ Wagner PATIENT [place] MEDICARE [facility] Aug 11, 2014 [id number] ARCHAMBEA SHAQ Wagner PATIENT HUMANA [facility] (WNR) MEDICARE ADVANTAGE HUMAN A INSUR [facility] Jan 11, 2022 [id number] [phone] ARCHAMBEA SHAQ Wagner PATIENT USMANA MCR (WNR) MEDICARE ADVANTAGE [facility] (WNR) Jan 11, 2022 [id number] [phone] ARCHAMBEA U,SHAQ PATIENT MEDICARE (WNR) MEDICARE (M) PART A Dec 11, 2014 PART A [id number] ARCHAMBEA U,SHAQ PATIENT MEDICARE ([place]) MEDICARE () PART B Aug 11, 2014 PART B [id number] ARCHAMBEA U,SHAQ PATIENT MEDICARE ([place]) MEDICARE () PART A Aug 11, 2014 PART A [id number] ARCHAMBEA U,SHAQ PATIENT MEDICARE ([place]) MEDICARE () PART B Aug 11, 2014 PART B [id number] ARCHAMBEA U,SHAQ PATIENT MEDICARE ([place]) MEDICARE () PART A Aug 11, 2014 PART A [id number] ARCHAMBEA U,SHAQ PATIENT MEDICARE ([place]) MEDICARE () PART B Aug 11, 2014 PART B [id number] ARCHAMBEA U,SHAQ PATIENT MEDICARE ([place]) MEDICARE (M) PART A Aug 11, 2014 PART A [id number] ARCHAMBEA U,SHAQ PATIENT MEDICARE ([place]) MEDICARE (M) PART B Aug 11, 2014 PART B [id number] ARCHAMBEA SHAQ Wagner PATIENT [facility] (WNR) MEDICARE ADVANTAGE [facility] (WNR) May 13, 2020 [id number] ARCHAMBEA U,SHAQ PATIENT Selected Encounter This section includes the information on record at [place] for the Encounter. Date/Time Encounter Type Encounter Description Reason Provider Source Jul 22, 2024 08:00 AM OFFICE O/P EST LOW 20 MIN PODIATRY ICD-10-CM L60.0 Ingrowing nail RINA CESAR Lillian Encounter Template Text not used by [place] Assessments - Encounter Diagnoses This section includes the primary and secondary diagnoses documented for the Encounter. Date/Time Primary/Secondary Diagnosis Diagnosis Name Provider Source Jul 22, 2024 07:57 AM PRIMARY Ingrowing nail RINA CESAR [place] Jul 22, 2024 07:57 AM SECONDARY Pain in left toe(s) RINA CESAR [place] Jul 22, 2024 07:57 AM SECONDARY Pain in right toe(s) RINA CESAR [place] Jul 22, 2024 07:57 AM SECONDARY Peripheral vascular disease, unspecified RINA CESAR Plan of Treatment: Future Appointments (+ 6 months) and Future Tests (+/- 45 days) The Plan of Treatment section includes future care activities for the patient from [facility] This section includes future appointments and future orders which are active, pending or scheduled. Future Appointments This section includes appointments that were scheduled to occur 6 months from the date of the Encounter, up to a maximum of 20 appointments. The data comes from all [place] treatment [facility]. Appointment Date/Time Appointment Type Appointme nt Facility Name Sep 08, 2024 09:45 AM AMBULATORY - MEDICINE [facility] September 18, 2024 09:00 AM [facility] Oct 15, 2024 08:30 AM AMBULATORY - MEDICINE [facility] Dec 08, 2024 08:00 AM AMBULATORY - MEDICINE [facility] Dec 16, 2024 10:00 AM AMBULATORY - REHAB MEDICIN [facility] Active, Pending, and Scheduled Orders This section includes a listing of several types of active, pending, and scheduled orders, including clinic medications orders, diagnostic test orders, procedure orders and consult orders; where the start date of the order is 45 days before the date of the Encounter or 45 days after the date of theEncounter. The data comes from all [facility]. Test Date/Time Test Type Test Details Facility Name Jun 23, 2024 04:05 PM Consult Order COMMUNITY CARE-DENTAL GENERAL [facility] Bus Driver/Monitor's [facility] Jul 13, 2024 09:45 AM Consult Order PAIN CLINI C/[facility] OUTPT [facility] Bus Driver/Monitor'[facility] Sep 04, 2024 05:01 PM Consult Order COMMUNITY CARE-CARDIOLOGY [facility] Bus Driver/Monitor's [facility] Social History: Smoking Status (Most current) and [...] 2024 09:00 AM VA-TOBACCO USE FORMER CIGARETTES [place] Tobacco Use History This section includes a history of the smoking, or tobacco-related health factors, that were collected on or before the date of the Encounter. The data comes from the [place] facility where the Encounter took place. Date/Time Smoking Status/Tobacco Use Comment F acility Jul 13, 2024 09:00 AM VA-TOBACCO USE FORMER CIGARETTES [place] Oct 31, 2018 11:38 AM VA-TOBACCO FORMER USER [place] Oct 31, 2018 11:38 AM AR-TOBACCO QUIT 15 YRS OR MORE [place] Jul 12, 2017 08:51 AM QUIT TOBACCO USE > 7 YEARS AGO [place] Mar 30, 2016 08:29 AM QUIT TOBACCO USE > 7 YEARS AGO [place] Mar 04, 2015 10:57 AM QUIT TOBACCO USE > 7 YEARS AGO [place] Advance Directives: All historical and current Section [...] 2021 ADVANCE DIRECTIVE BEL ESCALANTE [facility] Encounter Notes: All associated encounter notes This section contains the clinical notes associated to the Encounter. Date/Time Encounter Note(s) Provider Source Jul 22, 2024 07:27 AM PODIATRY NOTE: LOCAL TITLE: PODIATRY NOTE STANDARD TITLE: PODIATRY NOTE DATE OF NOTE: JUL 22, 2024@07:27 ENTRY DATE: JUL 22, 2024@07:27:41 AUTHOR: RINA CESAR COSIGNER: URGENCY: STATUS: COMPLETED NOTE: HAS RECEIVED BOTH COVID VACCINE DOSES + BOOSTER AT [facility] LAST SEEN FOR TREATMENT: 03/11/2024 s: Pt. is a 73 yo alert [facility] MALE who is seen for [...] present physical-medical status. Protective sensation utilizing a Thomson-Elaine lOg monofilament is 10/10 bilateral. BIOMECHANICAL: Exam is deferred at this time due as BEING non-contributory to the cc . 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 All care rendered without complications & the patient is progressing well after podiatric care this date and will be scheduled for periodic podiatric care in an attempt to prevent future complications. Treatment by a non-professional could be extremely hazardous to the patient's wellbeing due to the underlying medical conditions. REturn to Clinic: 24WEEKS(11/25 @ 8AM?) *DISCUSSED NEW PROTOCOLS AND CALLED MYA TODAY FOR RESCHEDULING I DISCUSSED THE FINDINGS & PLAN WITH PATIENT (UNCHANGED SINCE PREVIOUS VISIT) & PATIENT AGREES AND UNDERSTANDS PLAN *DISCUSSED THE CURRENT LAYOFF SITUATION AND IF IT WILL AFFECT THE [facility] MEDICAL [facility] Medication Reconciliation: PERFORMED TODAY - SEE BELOW. [...] JLV. Allergies/ADRs (Tool #5) FACILITY ALLERGY/ADR -------- [facility] NO KNOWN ALLERGIES [facility] CODE[facility] NEURONTIN Med Recon NoGlossary (Tool #1) INCLUDED IN THIS LIST: Alphabetical list of active outpatient prescriptions dispensed from this [place] (local) and dispensed from another [place] or [facility] facility (remote) as well as inpatient orders (local pending and active), local clinic medications, locally documented non-VA medications, and local prescriptions that have or been discontinued in the past 90 days. Non-VA Meds Last Documented On: Apr 26, 2024 NOTE The display of VA prescriptions dispensed from another VA or [facility]D facility (remote) is limited to active outpatient prescription entries matched to National Drug File at the originating site and may not include some items such as investigational drugs, compounds, etc. NOT INCLUDED IN THIS LIST: Medications self-entered by the patient into personal health records (i.e. [employer]) are NOT included in this list. Non-VA [...] DAILY NEEDED Medication prescribed by Non-VA provider. Non-VA AMIODARONE HCL 200MG TAB TAKE ONE TABLET BY MOUTH ONCE DAILY Apr 26, 2024 Medication prescribed by Non-VA provider. Indication: arrhythmia OUTPT AMIODARONE HCL 200MG TAB (Status = Active) TAKE ONE TABLET BY MOUTH ONCE DAILY Rx# [id number] Last Released: 07/21/24 Qty/Days Supply: 90 Rx Expiration Date: 04/29/25 Refills Remainin OUTPT AMMONIUM LACTATE 12% LOTION (Status = Active) APPLY SMALL AMOUNT TOPICALLY ONCE DAILY NEEDED FOR DRY IRRITATED SKIN Rx# [id number] Last Released: 07/16/24 Qty/Days Supply: 480/90 Rx Expiration Date: 10/11/24 Refills Remainin Indication: FOR DRY SKIN OUTPT APIXABAN 5MG TAB (Status = Discontinued) TAKE ONE TABLET BY MOUTH EVERY 12 HOURS Rx# [id number] Last Released: 03/17/24 Qty/Days Supply: 180 Rx Expiration Date: 06/20/24 Refills Remainin OUTPT ASCORBIC ACID 500MG TAB (Status = Active) TAKE ONE TABLET BY MOUTH ONCE DAILY FOR VITAMIN/NUTRITION SUPPLEMENT WITH IRON PILLS Rx# [id number] Last Released: 07/18/24 Qty/Days Supply: 10090 Rx Expiration Date: 07/14/25 Refills Remainin Indication: FOR INADEQUATE VITAMIN C Non-VA ASPIRIN 81MG EC TAB TAKE ONE TABLET BY MOUTH ONCE DAILY Patient wants to buy from Non-VA pharmacy. Indication: FOR BLOOD CLOT PREVENTION FOLLOWING PCI OUTPT ATORVASTATIN CALCIUM 80MG TAB (Status = Active) TAKE ONE TABLET BY MOUTH ONCE DAILY FOR HIGH CHOLESTEROL Rx# [id number] Last Released: 04/24/24 Qty/Days Supply: 9090 Rx Expiration Date: 04/21/25 Refills Remainin Indication: FOR HIGH CHOLESTEROL OUTPT BETAMETHASONE DIPRO AUGMENT 0.05% CREAM (Status = Active) APPLY A SMALL AMOUNT TOPICALLY ONCE DAILY FOR ITCHING/RASH Rx# [id number] Last Released: 07/15/24 Qty/Days Supply: 100/90 Rx Expiration Date: 07/14/25 Refills Remainin Indication: FOR ITCHING OUTPT DRONEDARONE 400MG TAB (Status = Discontinued) TAKE ONE TABLET BY MOUTH TWICE DAILY Rx# [id number] Last Released: 03/17/24 Qty/Days Supply: 180/ Rx Expiration Date: 09/17/24 Refills Remainin OUTPT FERROUS SULFATE 325MG TAB (Status = Active) TAKE ONE TABLET BY MOUTH ONCE DAILY TO SUPPLEMENT IRON TO SUPPLEMENT IRON Rx# [id number] Last Released: 04/30/24 Qty/Days Supply: 100/ Rx Expiration Date: 04/27/25 Refills Remainin Indication: TO SUPPLEMENT IRON OUTPT LATANOPROST 0.005% OPH SOLN (Status = Active) 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 Indication: FOR HEART ATTACK OUTPT METOPROLOL TARTRATE 25MG TAB (Status = Active) TAKE ONE TABLET BY MOUTH TWICE DAILY FOR BLOOD PRESSURE/HEART Rx# [id number] Last Released: 04/29/24 Qty/Days Supply: 180/ Rx Expiration Date: 04/29/25 Refills Remainin OUTPT NUTRITION SUPL ENSURE PLUS/VANILLA LIQ (Status = Discontinued) DRINK 1 CAN BY MOUTH TWICE DAILY Rx# [id number] Last Released: 03/14/24 Qty/Days Supply: Rx Expiration Date: 04/29/24 Refills Remainin OUTPT NUTRITION SUPL ENSURE PLUS/VANILLA LIQ (Status = Active) DRINK 1 CAN BY MOUTH TWICE DAILY FOR NUTRITIONAL SUPPLEMENTATION Rx# [id number] Last Released: 07/21/24 Qty/Days Supply: Rx Expiration Date: 05/10/25 Refills Remainin Indication: FOR NUTRITIONAL SUPPLEMENTATION OUTPT OMEPRAZOLE 20MG EC CAP (Status = Active) TAKE TWO CAPSULES BY MOUTH EVERY MORNING 30 MINUTES BEFORE BREAKFAST Rx# [id number] Last Released: 04/20/24 Qty/Days Supply: Rx Expiration Date: 10/11/24 Refills Remainin OUTPT OXYCODONE HCL 5MG/APAP 325MG TAB (Status = Discontinued) TAKE 1 TABLET BY MOUTH THREE TIMES DAILY NEEDED FOR PAIN [NEXT FILL DATE 05/15/24] Rx# [id number] Last Released: 04/14/24 Qty/Days Supply: Rx Expiration Date: 05/13/24 Refills Remainin Indication: FOR PAIN OUTPT OXYCODONE HCL 5MG/APAP 325MG TAB (Status = Discontinued) TAKE 1 TABLET BY MOUTH THREE TIMES DAILY NEEDED FOR PAIN [NEXT FILL DATE ] Rx# [id number] Last Released: 05/12/24 Qty/Days Supply: Rx Expiration Date: 06/08/24 Refills Remainin Indication: FOR PAIN OUTPT OXYCODONE HCL 5MG/APAP 325MG TAB (Status = ) TAKE 1 TABLET BY MOUTH THREE TIMES DAILY NEEDED FOR PAIN NEXT FILL 07/10/24 Rx# [id number] Last Released: 06/09/24 Qty/Days Supply: Rx Expiration Date: 07/05/24 Refills Remainin Indication: FOR PAIN OUTPT OXYCODONE HCL 5MG/APAP 325MG TAB (Status = Discontinued) TAKE 1 TABLET BY MOUTH THREE TIMES DAILY NEEDED FOR PAIN NEXT FILL 08/07/24 Rx# [id number] Last Released: 07/07/24 Qty/Days Supply: Rx Expiration Date: 08/04/24 Refills Remainin Indication: FOR PAIN OUTPT OXYCODONE HCL 5MG/APAP 325MG TAB (Status = On Hold) TAKE 1 TABLET BY MOUTH EVERY 6 HOURS NEEDED FOR PAIN NEXT FILL 08/30/24 Rx# [id number] Last Released: Qty/Days Supply: Rx Expiration Date: 08/12/24 Refills Remainin Indication: FOR PAIN OUTPT ROPINIROLE HCL 0.25MG TAB (Status = Active) TAKE ONE TABLET BY MOUTH DAILY Rx# [id number] Last Released: 05/22/24 Qty/Days Supply: 90/90 Rx Expiration Date: 12/08/24 Refills Remainin OUTPT ZINC OXIDE 16% TOP PASTE (Status = Active) APPLY SUFFICIENT AMOUNT TOPICALLY ONCE DAILY FOR SKIN IRRITATION Rx# [id number] Last Released: 04/24/24 Qty/Days Supply: 60/30 Rx Expiration Date: 04/21/25 Refills Remainin Indication: FOR SKIN IRRITATION SUPPLIES /robe/ RINA CESAR DPM PHOTOGRAPHIC INTELLIGENCE OFFICER Signed: 07/22/2024 07:58 RINA CESAR [place]
--- OUTSIDE RECORDS SUMMARY | 2024-09-08 10:28 | XMS_ITS | Continuity of Care Document ---
Author Name [facility] Organization [facility] Care Team Providers Care Medical Illustrator Name Role Phone [facility] Unavailable Unavailable Problems Combined list of problems from Department of Defense and Veterans Affairs facilities. It does not include entries that were removed or entered in error. Problem Status Onset Date Problem Type Date of Resolution Comments Source AF - Atrial fibrillation Active Condition Jul 04, 2023 Entered By: NEHEMIAH LORD Comment: Dx 06/2023 Afib w/RVR [facility] Estes's esophagus Active Condition Mar 04, 2015 [...] no dysplasia - repeat in 5 y [facility] Care by local physician Active Condition Mar 04, 2015 Entered By: VENKATA GONZALEZ Comment: Dr Lewis at [facility]; Dr. Maher @ [facility] Chronic pain syndrome Active Condition [facility] ([facility]) Degeneration of intervertebral disc Active Condition Mar 04, 2015 Entered By: VENKATA GONZALEZ Comment: TKR, L Knee early ; Candidate for TK, R Side in FutureMar 04, 2015 Entered By: VENKATA GONZALEZ Comment: MMT of R Knee as wellMay 26, 2018 Entered By: OMER REYES Comment: cervical spondylosis, DDD imaging 03/29 C3-C7Jan 2018 Entered By: OMER REYES Comment: diffuse DDD throughout L/S 03/29 [facility] History of tobacco use Active Condition Mar 04, 2015 Entered By: VENKATA GONZALEZ Comment: Quit 2007;Mar 04, 2015 Entered By: VENKATA GONZALEZ Comment: H/O Pneumothorax, L Lung ; Had Thoracostomy, etc.Mar 04, 2015 Entered By: VENKATA GONZALEZ Comment: Nodule, LLL, in FEB 24?? pending PET; METS vs. ScarSep 2017 Entered By: OMER REYES Comment: neg AAA screening 2017 [facility] Hyperlipidemia Active Condition [facility] LBP - Low back pain Active Condition Mar 04, 2015 Entered By: VENKATA GONZALEZ Comment: LBP; Never Surg; Focal; no Dist Radiation [facility] Localized, secondary osteoarthritis of the ankle and/or [...] SA due to Prolonged post Pseudoarthosis Pain [facility] Long-term current use of anticoagulant Active Condition [facility] (6[facility]) Lumbosacral spondylosis with radiculopathy Active Condition [facility] [place] [facility] Prostate cancer Active Condition Mar 04, 2015 Entered By: VENKATA GONZALEZ Comment: Dx via Bx JUL 25 (); 9 Sections Malig; 3 BenignMar 04, 2015 Entered By: VENKATA GONZALEZ Comment: Finished RT early FEB 24; [place] Entered By: OMER REYES Comment: see note 07/25/16- all notes sent to scan [facility] Restless legs Active Condition Feb Entered By: VENKATA GONZALEZ Comment: on Ropinirole in FEB 24 [facility] Screening for malignant neoplasm colon Active Condition [...] Colon/EGD Apr 2021 - Q 5 Years [facility] Shared care - hospice and GP Active Condition Mar 08, 2015 Entered By: OMER REYES Comment: PCP: [facility]. Maher [facility] [place] [facility] Shoulder joint pain Active Condition Mar 04, 2015 Entered By: VENKATA GONZALEZ Comment: Candidate for Replacement, R Side; Deferred; just do Inj'sOct 2014 Entered By: VENKATA GONZALEZ Comment: OA, L Shldr also (less pain than R side) [facility] Solitary nodule of lung Active Condition Dec 17, 2016 Entered By: OMER REYES Comment: Ct scan 2022 Entered By: NEHEMIAH LORD [facility] Entered By: NEHEMIAH LORD Comment: last CT chest 10/2021 stable subcentimeter nodules [facility] [place] [facility] Unintentional weight loss Active Condition Nov 09, 2022 Entered By: NEHEMIAH LORD Comment: after [facility] Diagnosis: ICD-10-CM L60.0 Ingrowing nail Active Diagnosis [facility] Diagnosis: ICD-10-CM I48.91 Unspecified atrial fibrillation Active Diagnosis [facility] Diagnosis: ICD-10-CM M70.62 Trochanteric bursitis, left hip Active Diagnosis [facility] [place] [facility] Diagnosis: ICD-10-CM R63.4 Abnormal weight loss Active Diagnosis [facility] Diagnosis: ICD-10-CM I21.4 Non-ST elevation (NSTEMI) myocardial infarction Active Diagnosis [facility] Diagnosis: ICD-10-CM M13.872 Other specified arthritis, left ankle and foot Active Diagnosis [facility] [place] [facility] Diagnosis: ICD-10-CM R06.09 Other forms of dyspnea Active Diagnosis [facility] Diagnosis: ICD-10-CM R06.00 Dyspnea, unspecified Active Diagnosis [facility] [place] [facility] Diagnosis: ICD-10-CM Z46.0 Encounter for fit/adjst of spectacles and contact lenses [facility] Diagnosis: ICD-10-CM H40.1111 Primary open-angle glaucoma, right eye, mild stage Active Diagnosis [facility] [place] [facility] Diagnosis: ICD-10-CM M46.1 Sacroiliitis, not elsewhere classified [facility] [facility] Diagnosis: ICD-10-CM M54.17 Radiculopathy, lumbosacral region [facility] Diagnosis: ICD-10-CM 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 Medication Details Route Status Patient Instructions Prescription Expires Prescription Number Last Dispense Date Ordering Provider Order Date Order Qty Source ACETAMINOPH EN 500MG TAB TAKE TWO TABLETS BY MOUTH THREE TIMES DAILY NEEDED ORAL ACTIVE JOSHUA KOO 2018 [facility] AMIODARONE HCL 200MG TAB TAKE ONE TABLET BY MOUTH ONCE DAILY ORAL ACTIVE 04/29/2025 [id number] RUBY INMAN 2023 90 [facility] AMIODARONE HCL 200MG TAB TAKE ONE TABLET BY MOUTH ONCE DAILY ORAL ACTIVE NEHEMIAH CISSE 2023 [place] AMMONIUM LACTATE 12% LOTION APPLY SMALL AMOUNT TOPICALL Y ONCE DAILY NEEDED FOR DRY IRRITATE D SKIN TOPICA L ACTIVE 10/11/2024 [id number] CALISTA EVANS 2024 480 [place] APIXABAN 5MG TAB TAKE ONE TABLET BY MOUTH EVERY 12 HOURS ORAL DISCONT INUED BY PROVIDE R 06/20/2024 [id number] 4 [place] RADER 2023 180 [facility] ASCORBIC ACID 500MG TAB TAKE ONE TABLET BY MOUTH ONCE DAILY FOR VITAMIN/ NUTRITIO N SUPPLEME NT WITH IRON PILLS ORAL ACTIVE 07/14/2025 [id number] 5 CALISTA EVANS 2024 100 [place] ASPIRIN 81MG TAB,EC TAKE ONE TABLET BY MOUTH ONCE DAILY ORAL ACTIVE NEHEMIAH CISSE M 2023 [place] ATORVASTATI N CA 80MG TAB TAKE ONE TABLET BY MOUTH ONCE DAILY FOR HIGH CHOLESTE ROL ORAL ACTIVE 04/21/2025 [id number] 5 NEHEMIAH CISSE 2023 90 [place] BETAMETHASO NE DIPROPIONAT E 0.05% AUGMENTED CREAM APPLY A SMALL AMOUNT TOPICALL Y ONCE DAILY FOR ITCHING/ RASH TOPICA L ACTIVE 07/14/2025 [id number] CALISTA EVANS M 2024 100 [place] DRONEDARONE 400MG TAB TAKE ONE TABLET BY MOUTH TWICE DAILY ORAL DISCONT INUED BY PROVIDE R 09/17/2024 [id number] 4 [place] RADER 2023 180 [facility] DRONEDARONE 400MG TAB TAKE ONE TABLET BY MOUTH TWICE DAILY FOR PAROXYSM AL ATRIAL FIBRILLA TION ORAL 09/16/2023 [id number] 4 ORV[place]LE RADRE 2023 180 [place] PTON ENSURE PLUS LIQUID VANILLA DRINK 1 CAN BY MOUTH TWICE DAILY FOR NUTRITIO NAL SUPPLEME NTATION ORAL ACTIVE 05/10/2025 [id number] 5 NEHEMIAH CISSE 2023 48 [place] ENSURE PLUS LIQUID VANILLA DRINK 1 CAN BY MOUTH TWICE DAILY ORAL DISCONT INUED 04/29/2024 [id number] 4 NEHEMIAH CISSE M 2022 48 [place] FERROUS SO4 325MG TAB TAKE ONE TABLET BY MOUTH ONCE DAILY TO SUPPLEME NT IRON TO SUPPLEME NT IRON ORAL ACTIVE 04/27/2025 [id number] 5 NEHEMIAH CISSE 2023 100 [place] LATANOPROST 0.005% SOLN,OPH INSTILL 1 DROP INTO EACH EYE AT BEDTIME FOR WIDE-ANG LE GLAUCOMA OPHTHA LMIC ACTIVE 08/04/2025 [id number] 5 ,LAC EY J 2024 7.5 [facility] LATANOPROST 0.005% SOLN,OPH INSTILL 1 DROP INTO EACH EYE AT BEDTIME FOR WIDE-ANG LE GLAUCOMA OPHTHA LMIC DISCONT INUED 08/12/2024 [id number] 5 ,LAC EY J 2023 7.5 [facility] [place] LIDOCAINE 5% PATCH APPLY 1 PATCH TOPICALL Y ONCE DAILY FOR NERVE PAIN (LEAVE PATCH ON FOR 12 HOURS, THEN REMOVE PATCH) TOPICA L ACTIVE 04/21/2025 [id number] 5 NEHEMIAH CISSE 2023 30 [place] LIDOCAINE 5% PATCH APPLY 1 PATCH TOPICALL Y ONCE DAILY FOR NERVE PAIN (LEAVE PATCH ON FOR 12 HOURS, THEN REMOVE PATCH) TOPICA L DISCONT INUED 10/11/2024 [id number] 4 NEHEMIAH CISSE 2023 30 [place] LIDOCAINE 5% PATCH APPLY 1 PATCH TOPICALL Y ONCE DAILY FOR NERVE PAIN (LEAVE PATCH ON FOR 12 HOURS, THEN REMOVE PATCH) TOPICA L DISCONT INUED 09/04/2023 [id number] NEHEMIAH CISSE 2022 30 [place] LOVASTATIN 20MG TAB TAKE ONE TABLET BY MOUTH AT BEDTIME FOR CHOLESTE ROL -- AVOID GRAPEFRU IT JUICE ORAL DISCONT INUED BY CORY R 10/11/2024 [id number] 4 NEHEMIAH CISSE 2023 90 [place] LOVASTATIN 20MG TAB TAKE ONE TABLET BY MOUTH AT BEDTIME FOR CHOLESTE ROL -- AVOID GRAPEFRU IT JUICE ORAL DISCONT INUED 10/10/2023 [id number] 4 NEHEMIAH CISSE 2022 90 [place] METOPROLOL TARTRATE 25MG TAB TAKE ONE TABLET BY MOUTH TWICE DAILY FOR BLOOD PRESSURE /HEART ORAL ACTIVE 04/29/2025 [id number] HENNY,RUBY AV 2023 180 [facility] METOPROLOL TARTRATE 25MG TAB TAKE ONE-HALF TABLET BY MOUTH TWICE DAILY FOR BLOOD PRESSURE /HEART ORAL DISCONT INUED BY PROVIDE R 10/08/2024 [id number] 4 NEHEMIAH CISSE 2023 90 [place] METOPROLOL TARTRATE 25MG TAB TAKE ONE TABLET BY MOUTH TWICE DAILY FOR BLOOD PRESSURE /HEART ORAL 09/16/2023 [id number] 4 ORVILLE RADER 2023 180 [facility] PTON METOPROLOL TARTRATE 25MG TAB TAKE ONE TABLET BY MOUTH TWICE DAILY ORAL ACTIVE NEHEMIAH CISSE 2023 [place] NALOXONE HCL 4MG/SPRAY SOLN,SPRAY, NASAL INSTILL 1 SPRAY ONE NOSTRIL ONE TIME NEEDED FOR OPIOID OVERDOSE CALL 911 WITH ADMINIST RATION. REPEAT WITH SECOND DEVICE IF SYMPTOMS RETURN NASAL 04/20/2024 [id number] 4 Alphonso CARDONA 2023 2 [place] OMEPRAZOLE 20MG CAP,EC TAKE TWO CAPSULES BY MOUTH EVERY MORNING 30 MINUTES BEFORE BREAKFAS T ORAL ACTIVE 10/11/2024 [id number] 5 NEHEMIAH CISSE M 2023 180 [place] OMEPRAZOLE 20MG CAP,EC TAKE TWO CAPSULES BY MOUTH EVERY MORNING 30 MINUTES BEFORE BREAKFAS T ORAL DISCONT INUED 09/22/2023 [id number] 4 Alphonso CARDONA A 2022 180 [place] ONDANSETRON HCL 4MG TAB TAKE ONE TABLET BY MOUTH ONCE DAILY NEEDED FOR VOMITING /NAUSEA ORAL ACTIVE 07/25/2025 [id number] 5 NEHEMIAH CISSE M 2024 90 [place] ONDANSETRON HCL 4MG TAB TAKE ONE TABLET BY MOUTH ONCE DAILY NEEDED FOR VOMITING /NAUSEA ORAL DISCONT INUED 03/29/2024 [id number] 4 NEHEMIAH CISSE M 2022 90 [place] OXYCODONE HCL 5MG/ACETAMI NOPHEN 325MG TAB TAKE 1 TABLET BY MOUTH THREE TIMES DAILY NEEDED FOR PAIN NEXT FILL 09/27/24* * ORAL ACTIVE 09/21/2024 [id number] 5 NEHEMIAH CISSE M 2024 84 [place] OXYCODONE HCL 5MG/ACETAMI NOPHEN 325MG TAB TAKE 1 TABLET BY MOUTH THREE TIMES DAILY NEEDED FOR PAIN NEXT FILL 08/07/24* * ORAL DISCONT INUED (EDIT) 08/04/2024 [id number] 5 Alphonso CARDONA A 2024 84 [place] OXYCODONE HCL 5MG/ACETAMI NOPHEN 325MG TAB TAKE 1 TABLET BY MOUTH THREE TIMES DAILY NEEDED FOR PAIN [NEXT FILL DATE ] ORAL DISCONT INUED 06/08/2024 [id number] 4 NEHEMIAH CISSE M 2023 84 [place] OXYCODONE HCL 5MG/ACETAMI NOPHEN 325MG TAB TAKE 1 TABLET BY MOUTH THREE TIMES DAILY NEEDED FOR PAIN [NEXT FILL DATE 05/15/24] ORAL DISCONT INUED 05/13/2024 [id number] 4 NEHEMIAH CISSE M 2023 84 [place] OXYCODONE HCL 5MG/ACETAMI NOPHEN 325MG TAB TAKE 1 TABLET BY MOUTH THREE TIMES DAILY NEEDED FOR PAIN [NEXT FILL DATE 04/17/24] ORAL DISCONT INUED 04/19/2024 [id number] 4 NEHEMIAH CISSE 2023 84 [place] OXYCODONE HCL 5MG/ACETAMI NOPHEN 325MG TAB TAKE 1 TABLET BY MOUTH THREE TIMES DAILY NEEDED FOR PAIN NEXT FILL 02/19/24* * ORAL DISCONT INUED 02/20/2024 [id number] Alphonso CARDONA AVIAlphonso A 2023 84 [place] OXYCODONE HCL 5MG/ACETAMI NOPHEN 325MG TAB TAKE 1 TABLET BY MOUTH THREE TIMES DAILY NEEDED FOR PAIN NEXT FILL 01/22/24* * ORAL DISCONT INUED 01/21/2024 [id number] Alphonso CARDONA AVID A 2023 84 [place] OXYCODONE HCL 5MG/ACETAMI NOPHEN 325MG TAB TAKE 1 TABLET BY MOUTH THREE TIMES DAILY NEEDED FOR PAIN NEXT FILL 09/27/23* * ORAL DISCONT INUED 09/26/2023 [id number] NEHEMIAH CISSE 2023 84 [place] OXYCODONE HCL 5MG/ACETAMI NOPHEN 325MG TAB TAKE 1 TABLET BY MOUTH THREE TIMES DAILY NEEDED FOR PAIN NEXT FILL 08/30/23* * ORAL DISCONT INUED 08/28/2023 [id number] 4 NEHEMIAH CISSE 2023 84 [place] OXYCODONE HCL 5MG/ACETAMI NOPHEN 325MG TAB TAKE 1 TABLET BY MOUTH EVERY 6 HOURS NEEDED FOR PAIN NEXT FILL 08/30/24* * ORAL 08/12/2024 [id number] 5 CALISTA EVANS 2024 120 [place] OXYCODONE HCL 5MG/ACETAMI NOPHEN 325MG TAB TAKE 1 TABLET BY MOUTH THREE TIMES DAILY NEEDED FOR PAIN NEXT FILL 07/10/24* * ORAL 07/05/2024 [id number] 5 NEHEMIAH CISSE 2024 84 [facility] OXYCODONE HCL 5MG/ACETAMI NOPHEN 325MG TAB TAKE 1 TABLET BY MOUTH THREE TIMES DAILY NEEDED FOR PAIN NEXT FILL 03/18/24* * ORAL 03/19/2024 [id number] Alphonso CARDONA 2023 84 [facility] OXYCODONE HCL 5MG/ACETAMI NOPHEN 325MG TAB TAKE 1 TABLET BY MOUTH THREE TIMES DAILY NEEDED NEXT FILL 12/23/23* * ORAL 12/22/2023 [id number] 4 NEHEMIAH CISSE 2023 84 [facility] OXYCODONE HCL 5MG/ACETAMI NOPHEN 325MG TAB TAKE 1 TABLET BY MOUTH THREE TIMES DAILY NEEDED NEXT FILL 11/25/23* * ORAL 11/22/2023 [id number] 4 NEHEMIAH CISSE 2023 84 [facility] OXYCODONE HCL 5MG/ACETAMI NOPHEN 325MG TAB TAKE 1 TABLET BY MOUTH THREE TIMES DAILY NEEDED FOR PAIN NEXT FILL 10/25/23* * ORAL 10/25/2023 [id number] 4 NEHEMIAH CISSE 2023 84 [facility] OXYCODONE HCL 5MG/ACETAMI NOPHEN 325MG TAB TAKE 1 TABLET BY MOUTH THREE TIMES DAILY NEEDED FOR PAIN NEXT FILL 08/02/23* * ORAL 07/30/2023 [id number] 4 NEHEMIAH CISSE 2023 84 [facility] RIVAROXABAN 20MG TAB TAKE ONE TABLET BY MOUTH ONCE DAILY - TAKE WITH FOOD ORAL DISCONT INUED 09/16/2023 [id number] 4 ORVILLE RADER 2023 90 [place] PT[place] ROPINIROLE HCL 0.25MG TAB TAKE ONE TABLET BY MOUTH DAILY ORAL ACTIVE 12/08/2024 [id number] 5 NEHEMIAH CISSE 2023 90 [place] ROPINIROLE HCL 0.25MG TAB TAKE ONE TABLET BY MOUTH DAILY ORAL DISCONT INUED 11/09/2023 [id number] NEHEMIAH CISSE 2022 90 [place] ZINC OXIDE 16% PASTE,TOP APPLY SUFFICIE NT AMOUNT TOPICALL Y ONCE DAILY FOR SKIN IRRITATI ON TOPICA L ACTIVE 04/21/2025 [id number] 4 NEHEMIAH CISSE 2023 60 [place] Allergies, Adverse Reactions, Alerts Combined list of allergies from Department of Defense and Veterans Affairs facilities. It does not include entries that were removed or entered in error. Substance Category Reaction Severity Reaction type Status Date Reported Comments Source CODEINE Propensity to adverse reactions to drug (finding) Low blood pressure active 5 [facility] NEURONTIN Propensity to adverse reactions to drug (finding) Depressive disorder active 8 [facility] [facility] Immunizations Combined list of available immunizations from the Department of Defense and Veterans Affairs facilities. Immunization Series Date Given Administered By Site Reaction Lot Number CVX Code Drug Hand Hardener Status Comments Source INFLUENZA, UNSPECIFIED FORMULATION 2023 88 complet ed HISTORICA L INFORMATI ON - SOURCE UNSPECIFI ED, [facility] INFLUENZA, UNSPECIFIED FORMULATION 2022 88 complet ed HISTORICA L INFORMATI ON - SOURCE UNSPECIFI ED, [facility] INFLUENZA VACCINE, [...] SEASONAL, INJECTABLE 2018 141 complet ed [facility] [place] Fluzone high dose , [employer] Lot [id number], , Left Deltoid [facility] PNEUMOCOCCAL CONJUGATE PCV 13 2018 133 complet ed Pfizer lot [id number] exp Right Deltoid [facility] INFLUENZA, SEASONAL, INJECTABLE 2017 141 complet ed [facility] Rebecca blount [place] [facility] INFLUENZA, SEASONAL, INJECTABLE 2017 141 complet ed [facility] INFLUENZA, SEASONAL, INJECTABLE 2016 141 complet ed [facility] INFLUENZA, SEASONAL, INJECTABLE 2016 141 complet ed Site: Left Deltoid [facility] PNEUMOCOCCAL POLYSACCHARID E PPV23 2016 33 complet ed [place] FLU,3 YRS (HISTORICAL) 2015 88 complet ed [facility] [place] [facility] PNEUMOCOCCAL CONJUGATE PCV 13 2014 133 complet ed [place] ZOSTER (HISTORICAL) 2014 121 complet ed [place] DTAP, UNSPECIFIED FORMULATION 2014 107 complet ed [facility] KEVON Cook [facility] FLU,3 YRS (HISTORICAL) 2014 88 complet ed outside pcp [facility] FLU,3 YRS (HISTORICAL) 2014 88 complet ed [facility] [place] Results Combined list of recent chemistry, hematology and other laboratory results from Department of Defense and Veterans Affairs, ranging from 15 months to all on record, depending upon the facility. Order Name Results Value Reference Range Date Interpretation Specimen Comments Source FERRITIN FERRITIN [MASS/VOLUM E] IN SERUM OR PLASMA 30 ng/mL 20 - 300 06/22 Specimen Type: SERUM No comment entered. Ordering Provider: JOSE REIS Report Released Date/Time: Apr 26, 2024 02:32 AM Reporting Lab: [facility] [address] [facility] [address] Performing Lab: [address] [address] [place] RETICULOC YTES RETICULOCYT ES [#/VOLUME] IN BLOOD 0.7 0.6 - 2.0 06/22 Specimen Type: BLOOD No comment entered. Ordering Provider: JOSE REIS Report Released Date/Time: Apr 26, 2024 02:32 AM Reporting Lab: [facility] [address] [facility] [address] Performing Lab: [facility] [address] [facility] [address] [place] RETICULOC YTES RETICULOCYT ES/100 ERYTHROCYTE S IN BLOOD BY AUTOMATED COUNT 31.3 10*3/u L 30.0 - 90.0 06/22 Specimen Type: BLOOD No comment entered. Ordering Provider: JOSE REIS Report Released Date/Time: Apr 26, 2024 02:32 AM Reporting Lab: [facility] [address] [facility] [address] Performing Lab: [address] [address] [place] RETICULOC YTES HEMOGLOBIN [ENTITIC MASS] IN RETICULOCYT ES BY AUTOMATED COUNT 32.3 pg 27.9 - 42.0 06/22 Specimen Type: BLOOD No comment entered. Ordering Provider: JOSE REIS Report Released Date/Time: Apr 26, 2024 02:32 AM Reporting Lab: [facility] [address] [facility] [address] Performing Lab: [facility]ITALTRN [facility] [address] [facility] [address] [place] IRON & TIBC PANEL IRON BINDING CAPACITY [MASS/VOLUM E] IN SERUM OR PLASMA 355 ug/dL 204 - 475 06/22 Specimen Type: SERUM No comment entered. Ordering Provider: JOSE REIS Report Released Date/Time: Apr 26, 2024 02:32 AM Reporting Lab: [facility] [address] [facility] [address] Performing Lab: [facility]ITALRNOL[facility] BIRMINGHAMN [facility]PITALUSE[address] [address] [place] IRON & TIBC PANEL IRON [MASS/VOLUM E] IN SERUM OR PLASMA 63 ug/dL 40 - 160 06/22 Specimen Type: SERUM No comment entered. Ordering Provider: JOSE REIS Report Released Date/Time: Apr 26, 2024 02:32 AM Reporting Lab: [facility]TRN [facility] [address] [facility] [address] Performing Lab: [facility]ITALTRN [facility]ITAL[facility] [address] [facility] [address] [place] IRON & TIBC PANEL IRON/IRON BINDING CAPACITY.TO ARTEMIO [MASS RATIO] IN SERUM OR PLASMA 17.7 20.0 - 50.0 06/22 L Specimen Type: SERUM No comment entered. Ordering Provider: JOSE REIS Report Released Date/Time: Apr 26, 2024 02:32 AM Reporting Lab: [facility]ITALTRN [facility] [address] [facility] [address] Performing Lab: [facility]ITALRNOLAND [facility]OSP[facility] BIRMINGHAMN [facility]ITALUSEJ[facility] [address] [facility] [address] [place] IRON & TIBC PANEL TRANSFERRIN [MASS/VOLUM E] IN SERUM OR PLASMA 269 mg/dL 200 - 360 06/22 Specimen Type: SERUM No comment entered. Ordering Provider: JOSE REIS Report Released Date/Time: Apr 26, 2024 02:32 AM Reporting Lab: [facility] [place] [facility] [address] [facility] [address] Performing Lab: [facility] [place] [address] [address] [place] CBC AND DIFF (AUTO) LEUKOCYTES [#/VOLUME] IN BLOOD BY AUTOMATED COUNT 8.68 10*3/u L 4.50 - 11.00 06/22 Specimen Type: BLOOD No comment entered. Ordering Provider: JOSE REIS Report Released Date/Time: Apr 26, 2024 02:32 AM Reporting Lab: [facility] [place] [address] [address] Performing Lab: [facility] [place] [address] [address] [place] CBC AND DIFF (AUTO) ERYTHROCYTE S [#/VOLUME] IN BLOOD BY AUTOMATED COUNT 4.60 10*6/u L 4.23 - 5.66 06/22 Specimen Type: BLOOD No comment entered. Ordering Provider: JOSE REIS Report Released Date/Time: Apr 26, 2024 02:32 AM Reporting Lab: [facility] [place] [address] [address] Performing Lab: [facility] [place] [address] [address] [place] CBC AND DIFF (AUTO) HEMOGLOBIN [MASS/VOLUM E] IN BLOOD 13.2 g/dL 12.8 - 17 06/22 Specimen Type: BLOOD No comment entered. Ordering Provider: JOSE REIS Report Released Date/Time: Apr 26, 2024 02:32 AM Reporting Lab: [facility] [place] [address] [address] Performing Lab: [facility] [place] [address] [address] [place] CBC AND DIFF (AUTO) HEMATOCRIT [VOLUME FRACTION] OF BLOOD BY AUTOMATED COUNT 40.9 39.2 - 50.4 06/22 Specimen Type: BLOOD No comment entered. Ordering Provider: JOSE REIS Report Released Date/Time: Apr 26, 2024 02:32 AM Reporting Lab: [facility] [place] [address] [address] Performing Lab: [facility] [address] [address] [place] CBC AND DIFF (AUTO) MCV [ENTITIC VOLUME] BY AUTOMATED COUNT 88.9 fL 82 - 99 06/22 Specimen Type: BLOOD No comment entered. Ordering Provider: JOSE REIS Report Released Date/Time: Apr 26, 2024 02:32 AM Reporting Lab: [facility] [address] [address] Performing Lab: [facility] [place] [address] [address] [place] CBC AND DIFF (AUTO) MCHC [MASS/VOLUM E] BY AUTOMATED COUNT 32.3 g/dL 30.8 - 35.1 06/22 Specimen Type: BLOOD No comment entered. Ordering Provider: JOSE REIS Report Released Date/Time: Apr 26, 2024 02:32 AM Reporting Lab: [facility] [place] [address] [address] Performing Lab: [facility] [place] [address] [address] [place] CBC AND DIFF (AUTO) PLATELETS [#/VOLUME] IN BLOOD BY AUTOMATED COUNT 303 10*3/u L 140 - 360 06/22 Specimen Type: BLOOD No comment entered. Ordering Provider: JOSE REIS Report Released Date/Time: Apr 26, 2024 02:32 AM Reporting Lab: [facility] [place] [address] [address] Performing Lab: [facility] [place] [facility] [address] [facility] [address] [place] CBC AND DIFF (AUTO) ERYTHROCYTE DISTRIBUTIO N WIDTH [RATIO] BY AUTOMATED COUNT 14.1 12.0 - 16.0 06/22 Specimen Type: BLOOD No comment entered. Ordering Provider: JOSE REIS Report Released Date/Time: Apr 26, 2024 02:32 AM Reporting Lab: [facility] [place] [address] [address] Performing Lab: [facility] [place] [address] [address] [place] CBC AND DIFF (AUTO) MONOCYTES [#/VOLUME] IN BLOOD BY AUTOMATED COUNT 0.63 10*3/u L 0.30 - 1.10 06/22 Specimen Type: BLOOD No comment entered. Ordering Provider: JOSE REIS Report Released Date/Time: Apr 26, 2024 02:32 AM Reporting Lab: [facility] [place] [address] [address] Performing Lab: [facility] [place] [address] [address] [place] CBC AND DIFF (AUTO) MCH [ENTITIC MASS] BY AUTOMATED COUNT 28.7 pg 26.2 - 32.6 06/22 Specimen Type: BLOOD No comment entered. Ordering Provider: JOSE REIS Report Released Date/Time: Apr 26, 2024 02:32 AM Reporting Lab: [facility] [place] [address] [address] Performing Lab: [facility] [place] [address] [address] [place] CBC AND DIFF (AUTO) NEUTROPHILS /100 LEUKOCYTES IN BLOOD BY AUTOMATED COUNT 80.8 43.7 - 75.8 06/22 H Specimen Type: BLOOD No comment entered. Ordering Provider: JOSE REIS Report Released Date/Time: Apr 26, 2024 02:32 AM Reporting Lab: [facility] [place] [facility] [address] [facility] [address] Performing Lab: [facility] [place] [address] [address] [place] CBC AND DIFF (AUTO) LYMPHOCYTES /100 LEUKOCYTES IN BLOOD BY AUTOMATED COUNT 9.7 14.0 - 42.3 06/22 L Specimen Type: BLOOD No comment entered. Ordering Provider: JOSE REIS Report Released Date/Time: Apr 26, 2024 02:32 AM Reporting Lab: [facility] [place] [address] [address] Performing Lab: [facility] [place] [address] [address] [place] CBC AND DIFF (AUTO) MONOCYTES/1 00 LEUKOCYTES IN BLOOD BY AUTOMATED COUNT 7.3 5.1 - 13.7 06/22 Specimen Type: BLOOD No comment entered. Ordering Provider: JOSE REIS Report Released Date/Time: Apr 26, 2024 02:32 AM Reporting Lab: [facility] [place] [address] [address] Performing Lab: [facility] [place] [address] [address] [place] CBC AND DIFF (AUTO) EOSINOPHILS /100 LEUKOCYTES IN BLOOD BY AUTOMATED COUNT 1.4 0.4 - 6.8 06/22 Specimen Type: BLOOD No comment entered. Ordering Provider: JOSE REIS Report Released Date/Time: Apr 26, 2024 02:32 AM Reporting Lab: [facility] [place] [address] [address] Performing Lab: [facility] [place] [address] [address] [place] CBC AND DIFF (AUTO) BASOPHILS/1 00 LEUKOCYTES IN BLOOD BY AUTOMATED COUNT 0.3 0.1 - 2.0 06/22 Specimen Type: BLOOD No comment entered. Ordering Provider: JOSE REIS Report Released Date/Time: Apr 26, 2024 02:32 AM Reporting Lab: [facility] [address] [address] Performing Lab: [facility] [address] [address] [place] CBC AND DIFF (AUTO) NEUTROPHILS [#/VOLUME] IN BLOOD BY AUTOMATED COUNT 7.02 10*3/u L 2.20 - 7.60 06/22 Specimen Type: BLOOD No comment entered. Ordering Provider: JOSE REIS Report Released Date/Time: Apr 26, 2024 02:32 AM Reporting Lab: [facility] [address] [address] Performing Lab: [facility] [address] [address] [place] CBC AND DIFF (AUTO) LYMPHOCYTES [#/VOLUME] IN BLOOD BY AUTOMATED COUNT 0.84 10*3/u L 1.00 - 3.20 06/22 L Specimen Type: BLOOD No comment entered. Ordering Provider: JOSE REIS Report Released Date/Time: Apr 26, 2024 02:32 AM Reporting Lab: [facility] [address] [address] Performing Lab: [facility] [address] [address] [place] CBC AND DIFF (AUTO) EOSINOPHILS [#/VOLUME] IN BLOOD BY AUTOMATED COUNT 0.12 10*3/u L 0.03 - 0.44 06/22 Specimen Type: BLOOD No comment entered. Ordering Provider: JOSE REIS Report Released Date/Time: Apr 26, 2024 02:32 AM Reporting Lab: [facility] [address] [address] Performing Lab: [facility] [address] [address] [place] CBC AND DIFF (AUTO) BASOPHILS [#/VOLUME] IN BLOOD BY AUTOMATED COUNT 0.03 10*3/u L 0.01 - 0.13 06/22 Specimen Type: BLOOD No comment entered. Ordering Provider: JOSE REIS Report Released Date/Time: Apr 26, 2024 02:32 AM Reporting Lab: [facility] [address] [address] Performing Lab: [facility] [place] [address] [address] [place] CBC AND DIFF (AUTO) IMMATURE GRANULOCYTE S/100 LEUKOCYTES IN BLOOD BY AUTOMATED COUNT 0.5 0.0 - 0.7 06/22 Specimen Type: BLOOD No comment entered. Ordering Provider: JOSE REIS Report Released Date/Time: Apr 26, 2024 02:32 AM Reporting Lab: [facility] [address] [address] Performing Lab: [facility] [address] [address] [place] CBC AND DIFF (AUTO) IMMATURE GRANULOCYTE S [#/VOLUME] IN BLOOD 0.04 10*3/u L 0.00 - 0.06 06/22 Specimen Type: BLOOD No comment entered. Ordering Provider: JOSE REIS Report Released Date/Time: Apr 26, 2024 02:32 AM Reporting Lab: [facility] [address] [address] Performing Lab: [facility] [place] [address] [address] [place] CBC AND DIFF (AUTO) NRBC % 0.0 0.0 - 0.0 06/22 Specimen Type: BLOOD No comment entered. Ordering Provider: JOSE REIS Report Released Date/Time: Apr 26, 2024 02:32 AM Reporting Lab: [facility] [address] [address] Performing Lab: [facility] [address] [place] CBC AND DIFF (AUTO) NRBC, ABS 0.00 10*3/u L 0.00 - 0.00 06/22 Specimen Type: BLOOD No comment entered. Ordering Provider: JOSE REIS Report Released Date/Time: Apr 26, 2024 02:32 AM Reporting [facility] [address] [address] Performing Lab: [facility] [address] [address] [place] LIPID PANEL FASTING CHOLESTEROL [MASS/VOLUM E] IN SERUM OR PLASMA 118 mg/dL 04/20 Specimen Type: SERUM No comment entered. Ordering Provider: JOSE REIS Report Released Date/Time: Apr 15, 2024 02:47 PM Reporting Lab: [address] [address] Performing Lab: [facility] [address] [address] [place] LIPID PANEL FASTING TRIGLYCERID E [MASS/VOLUM E] IN SERUM OR PLASMA 58 mg/dL 0 - 150 04/20 Specimen Type: SERUM No comment entered. Ordering Provider: JOSE REIS Report Released Date/Time: Apr 15, 2024 02:47 PM Reporting Lab: [facility] [address] [address] Performing Lab: [facility] [address] [address] [place] LIPID PANEL FASTING CHOLESTEROL IN LDL [MASS/VOLUM E] IN SERUM OR PLASMA BY CALCULATION 55 mg/dL 0 - 129 04/20 Specimen Type: SERUM No comment entered. Ordering Provider: JOSE REIS Report Released Date/Time: Apr 15, 2024 02:47 PM Reporting Lab: [address] [address] Performing Lab: [facility] [address] [address] [place] LIPID PANEL FASTING CHOLESTEROL .TOTAL/CHOL ESTEROL IN HDL [MASS RATIO] IN SERUM OR PLASMA 2.3 04/20 Specimen Type: SERUM No comment entered. Ordering Provider: JOSE REIS Report Released Date/Time: Apr 15, 2024 02:47 PM Reporting Lab: [address] [address] Performing Lab: [address] [address] [place] LIPID PANEL FASTING CHOLESTEROL IN HDL [MASS/VOLUM E] IN SERUM OR PLASMA 51 mg/dL 40 - 60 04/20 Specimen Type: SERUM No comment entered. Ordering Provider: JOSE REIS Report Released Date/Time: Apr 15, 2024 02:47 PM Reporting Lab: [address] [address] Performing Lab: [address] [address] [place] BASIC METABOLIC PANEL (fasting) UREA NITROGEN [MASS/VOLUM E] IN SERUM OR PLASMA 13 mg/dL 7 - 25 04/20 Specimen Type: SERUM No comment entered. Ordering Provider: JOSE REIS Report Released Date/Time: Apr 15, 2024 02:47 PM Reporting Lab: [address] [address] Performing Lab: [address] [address] [place] BASIC METABOLIC PANEL (fasting) GLUCOSE [MASS/VOLUM E] IN SERUM OR PLASMA 105 mg/dL 65 - 100 04/20 H Specimen Type: SERUM No comment entered. Ordering Provider: JOSE REIS Report Released Date/Time: Apr 15, 2024 02:47 PM Reporting Lab: [address] [address] Performing Lab: [facility] [address] [facility] [address] [place] BASIC METABOLIC PANEL (fasting) SODIUM [MOLES/VOLU ME] IN SERUM OR PLASMA 136 mmol/L 135 - 145 04/20 Specimen Type: SERUM No comment entered. Ordering Provider: JOSE REIS Report Released Date/Time: Apr 15, 2024 02:47 PM Reporting Lab: [facility] [address] [address] Performing Lab: [address] [address] [place] BASIC METABOLIC PANEL (fasting) POTASSIUM [MOLES/VOLU ME] IN SERUM OR PLASMA 4.9 mmol/L 3.5 - 5.0 04/20 Specimen Type: SERUM No comment entered. Ordering Provider: JOSE REIS Report Released Date/Time: Apr 15, 2024 02:47 PM Reporting Lab: [facility] [address] [address] Performing Lab: [address] [address] [place] BASIC METABOLIC PANEL (fasting) CHLORIDE [MOLES/VOLU ME] IN SERUM OR PLASMA 101 mmol/L 100 - 110 04/20 Specimen Type: SERUM No comment entered. Ordering Provider: JOSE REIS Report Released Date/Time: Apr 15, 2024 02:47 PM Reporting Lab: [facility] [address] [address] Performing Lab: [address] [address] [place] BASIC METABOLIC PANEL (fasting) CARBON DIOXIDE, TOTAL [MOLES/VOLU ME] IN SERUM OR PLASMA 25 meq/L 20 - 30 04/20 Specimen Type: SERUM No comment entered. Ordering Provider: JOSE REIS Report Released Date/Time: Apr 15, 2024 02:47 PM Reporting Lab: [address] [address] Performing Lab: [address] [address] BASIC METABOLIC PANEL (fasting) CREATININE [MASS/VOLUM E] IN SERUM OR PLASMA 1.04 mg/dL 0.50 - 1.40 04/20 Specimen Type: SERUM No comment entered. Ordering Provider: JOSE REIS Report Released Date/Time: Apr 15, 2024 02:47 PM Reporting Lab: [address] [address] Performing Lab: [address] [address] [place] [address] [place] [address] BASIC METABOLIC PANEL (fasting) GLOMERULAR FILTRATION RATE/1.73 SQ M.PREDICTED [VOLUME RATE/AREA] IN SERUM, PLASMA OR BLOOD BY CREATININE- BASED FORMULA (CKD-EPI 2020) 75 mL/min 60 04/20 Specimen Type: SERUM No comment entered. Ordering Provider: JOSE REIS Report Released Date/Time: Apr 15, 2024 02:47 PM Reporting Lab: [address] [address] Performing Lab: [address] [address] [place] HEMOGLOBI N A1C PANEL HEMOGLOBIN A1C/HEMOGLO BIN.TOTAL [...] Apr 15, 2024 02:47 PM Reporting Lab: [facility] [address] [facility] [address] Performing Lab: [facility]ITALRN[facility]N [facility] [address] [facility] [address] [place] TSH THYROTROPIN [UNITS/VOLU ME] IN SERUM OR PLASMA 2.13 u[IU]/ mL 0.35 - 5.00 04/20 Specimen Type: SERUM No comment entered. Ordering Provider: OJSE REIS Report Released Date/Time: Apr 15, 2024 02:47 PM Reporting Lab: [facility] [address] [address] Performing Lab: [address] [address] [place] LIVER FUNCTION PROTEIN [MASS/VOLUM E] IN SERUM OR PLASMA 6.6 g/dL 6.0 - 8.3 04/20 Specimen Type: SERUM No comment entered. Ordering Provider: JOSE REIS Report Released Date/Time: Apr 15, 2024 02:47 PM Reporting Lab: [facility] [address] Performing Lab: [facility] [address] [place] LIVER FUNCTION ALBUMIN [MASS/VOLUM E] IN SERUM OR PLASMA 3.8 g/dL 3.5 - 5.0 04/20 Specimen Type: SERUM No comment entered. Ordering Provider: JOSE REIS Report Released Date/Time: Apr 15, 2024 02:47 PM Reporting Lab: [facility] [address] [address] Performing [facility]: [facility] [address] [address] [place] LIVER FUNCTION ALKALINE PHOSPHATASE [ENZYMATIC ACTIVITY/VO LUME] IN SERUM OR PLASMA 111 U/L 40 - 150 04/20 Specimen Type: SERUM No comment entered. Ordering Provider: JOSE REIS Report Released Date/Time: Apr 15, 2024 02:47 PM Reporting Lab: [facility] [address] [address] Performing Lab: [facility] [address] [place] LIVER FUNCTION ASPARTATE AMINOTRANSF ERASE [ENZYMATIC ACTIVITY/VO LUME] IN SERUM OR PLASMA 18 U/L 5 - 34 04/20 Specimen Type: SERUM No comment entered. Ordering Provider: JOSE REIS Report Released Date/Time: Apr 15, 2024 02:47 PM Reporting Lab: [facility] [address] [address] Performing Lab: [facility] [address] [address] [place] LIVER FUNCTION ALANINE AMINOTRANSF ERASE [ENZYMATIC ACTIVITY/VO LUME] IN SERUM OR PLASMA 34 U/L 04/20 Specimen Type: SERUM No comment entered. Ordering Provider: JOSE REIS Report Released Date/Time: Apr 15, 2024 02:47 PM Reporting Lab: [facility] [address] [address] Performing Lab: [facility]ITALRL TRN [facility] [address] [place] LIVER FUNCTION BILIRUBIN.T OTAL [MASS/VOLUM E] IN SERUM OR PLASMA 0.3 mg/dL 0.2 - 1.2 04/20 Specimen Type: SERUM No comment entered. Ordering Provider: JOSE REIS Report Released Date/Time: Apr 15, 2024 02:47 PM Reporting Lab: [facility] TRN [address] [address] Performing Lab: [facility] [address] [place] CBC AND DIFF (AUTO) LEUKOCYTES [#/VOLUME] IN BLOOD BY AUTOMATED COUNT 9.20 10*3/u L 4.50 - 11.00 04/20 Specimen Type: BLOOD No comment entered. Ordering Provider: JOSE REIS Report Released Date/Time: Apr 15, 2024 02:47 PM Reporting Lab: [facility] [place] [address] [address] Performing Lab: [facility] [address] [address] [place] CBC AND DIFF (AUTO) ERYTHROCYTE S [#/VOLUME] IN BLOOD BY AUTOMATED COUNT 3.75 10*6/u L 4.23 - 5.66 04/20 L Specimen Type: BLOOD No comment entered. Ordering Provider: JOSE REIS Report Released Date/Time: Apr 15, 2024 02:47 PM Reporting Lab: [facility] [address] Performing Lab: [facility] [place] [address] [address] [place] CBC AND DIFF (AUTO) HEMOGLOBIN [MASS/VOLUM E] IN BLOOD 10.7 g/dL 12.8 - 17 04/20 L Specimen Type: BLOOD No comment entered. Ordering Provider: JOSE REIS Report Released Date/Time: Apr 15, 2024 02:47 PM Reporting Lab: [facility]N [facility]ITAL[facility] [address] [address] Performing Lab: [facility] [place] [address] [address] [place] CBC AND DIFF (AUTO) HEMATOCRIT [VOLUME FRACTION] OF BLOOD BY AUTOMATED COUNT 32.5 39.2 - 50.4 04/20 L Specimen Type: BLOOD No comment entered. Ordering Provider: JOSE REIS Report Released Date/Time: Apr 15, 2024 02:47 PM Reporting Lab: [facility] [address] [address] Performing Lab: [facility]ITAL[facility] [address] [address] [place] CBC AND DIFF (AUTO) MCV [ENTITIC VOLUME] BY AUTOMATED COUNT 86.7 fL 82 - 99 04/20 Specimen Type: BLOOD No comment entered. Ordering Provider: JOSE REIS Report Released Date/Time: Apr 15, 2024 02:47 PM Reporting Lab: [facility] [address] [address] Performing Lab: [facility]PITALRNOL[facility] BIRMINGHAMN [facility]ITALUSE[address] [address] [place] CBC AND DIFF (AUTO) MCHC [MASS/VOLUM E] BY AUTOMATED COUNT 32.9 g/dL 30.8 - 35.1 04/20 Specimen Type: BLOOD No comment entered. Ordering Provider: JOSE REIS Report Released Date/Time: Apr 15, 2024 02:47 PM Reporting Lab: [facility]ITALUSE[address] [address] Performing Lab: [facility] [place] [address] [address] [place] CBC AND DIFF (AUTO) PLATELETS [#/VOLUME] IN BLOOD BY AUTOMATED COUNT 622 10*3/u L 140 - 360 04/20 H Specimen Type: BLOOD No comment entered. Ordering Provider: JOSE REIS Report Released Date/Time: Apr 15, 2024 02:47 PM Reporting Lab: [facility]PITALRBRYCE HOSPITALTRN [facility]ITALUSETS [address] [address] Performing Lab: [facility]ITALRBRYCE HOSPITALTRN [facility]ITALUSETS [address] [address] [place] CBC AND DIFF (AUTO) ERYTHROCYTE DISTRIBUTIO N WIDTH [RATIO] BY AUTOMATED COUNT 12.3 12.0 - 16.0 04/20 Specimen Type: BLOOD No comment entered. Ordering Provider: JOSE REIS Report Released Date/Time: Apr 15, 2024 02:47 PM Reporting Lab: [facility]PITALRBRYCE HOSPITALTRN [facility]USE[address] [address] Performing Lab: [facility] [place] [address] [address] [place] CBC AND DIFF (AUTO) MONOCYTES [#/VOLUME] IN BLOOD BY AUTOMATED COUNT 0.71 10*3/u L 0.30 - 1.10 04/20 Specimen Type: BLOOD No comment entered. Ordering Provider: JOSE REIS Report Released Date/Time: Apr 15, 2024 02:47 PM Reporting Lab: [facility] [place] [address] [address] Performing Lab: [facility]PITALRBRYCE HOSPITALTRN [facility]USE[address] [address] [place] CBC AND DIFF (AUTO) MCH [ENTITIC MASS] BY AUTOMATED COUNT 28.5 pg 26.2 - 32.6 04/20 Specimen Type: BLOOD No comment entered. Ordering Provider: JOSE REIS Report Released Date/Time: Apr 15, 2024 02:47 PM Reporting Lab: [facility]ITALRBRYCE HOSPITALTRN [place] [address] [address] Performing Lab: [facility]ITALRBRYCE HOSPITALTRN [facility]ITALUSETS [address] [address] [place] CBC AND DIFF (AUTO) NEUTROPHILS /100 LEUKOCYTES IN BLOOD BY AUTOMATED COUNT 72.7 43.7 - 75.8 04/20 Specimen Type: BLOOD No comment entered. Ordering Provider: JOSE REIS Report Released Date/Time: Apr 15, 2024 02:47 PM Reporting Lab: [facility]ITALRL [facility]N [place] [address] [address] Performing Lab: [facility]PITALRNOLAND [facility] BIRMINGHAMN [place] [address] [address] [place] CBC AND DIFF (AUTO) LYMPHOCYTES /100 LEUKOCYTES IN BLOOD BY AUTOMATED COUNT 9.6 14.0 - 42.3 04/20 L Specimen Type: BLOOD No comment entered. Ordering Provider: JOSE REIS Report Released Date/Time: Apr 15, 2024 02:47 PM Reporting Lab: [facility] [place] [address] [address] Performing Lab: [facility]ITALUSETS [address] [address] [place] CBC AND DIFF (AUTO) MONOCYTES/1 00 LEUKOCYTES IN BLOOD BY AUTOMATED COUNT 7.7 5.1 - 13.7 04/20 Specimen Type: BLOOD No comment entered. Ordering Provider: JOSE REIS Report Released Date/Time: Apr 15, 2024 02:47 PM Reporting Lab: [facility]ITALRL TRN [facility]ITALUSETS [address] [address] Performing Lab: [facility]ITALRL TRN [facility]ITALUSE[address] [address] [place] CBC AND DIFF (AUTO) EOSINOPHILS /100 LEUKOCYTES IN BLOOD BY AUTOMATED COUNT 9.1 0.4 - 6.8 04/20 H Specimen Type: BLOOD No comment entered. Ordering Provider: JOSE REIS Report Released Date/Time: Apr 15, 2024 02:47 PM Reporting Lab: [facility]RL [facility]N [facility]ITALUS[facility] [address] [address] Performing Lab: [facility]RL TRN [facility]ITALUSETS [address] [address] [place] CBC AND DIFF (AUTO) BASOPHILS/1 00 LEUKOCYTES IN BLOOD BY AUTOMATED COUNT 0.4 0.1 - 2.0 04/20 Specimen Type: BLOOD No comment entered. Ordering Provider: JOSE REIS Report Released Date/Time: Apr 15, 2024 02:47 PM Reporting Lab: [facility]RL TRN [facility]ITALUS[facility] [address] [address] Performing Lab: [facility]PITALRBRYCE HOSPITALTRN [facility]ITALUSE[address] [address] [place] CBC AND DIFF (AUTO) NEUTROPHILS [#/VOLUME] IN BLOOD BY AUTOMATED COUNT 6.68 10*3/u L 2.20 - 7.60 04/20 Specimen Type: BLOOD No comment entered. Ordering Provider: JOSE REIS Report Released Date/Time: Apr 15, 2024 02:47 PM Reporting Lab: [facility]ITALUSETS [address] [address] Performing Lab: [facility] [address] [address] [place] CBC AND DIFF (AUTO) LYMPHOCYTES [#/VOLUME] IN BLOOD BY AUTOMATED COUNT 0.88 10*3/u L 1.00 - 3.20 04/20 L Specimen Type: BLOOD No comment entered. Ordering Provider: JOSE REIS Report Released Date/Time: Apr 15, 2024 02:47 PM Reporting Lab: [facility] [address] Performing Lab: [facility]ITALRL TRN [facility]USE[address] [address] [place] CBC AND DIFF (AUTO) EOSINOPHILS [#/VOLUME] IN BLOOD BY AUTOMATED COUNT 0.84 10*3/u L 0.03 - 0.44 04/20 H Specimen Type: BLOOD No comment entered. Ordering Provider: JOSE REIS Report Released Date/Time: Apr 15, 2024 02:47 PM Reporting Lab: [facility]ITALUS[facility] [address] [address] Performing Lab: [facility]ITALRL TRN [facility]ITALUSETS [address] [address] [place] CBC AND DIFF (AUTO) BASOPHILS [#/VOLUME] IN BLOOD BY AUTOMATED COUNT 0.04 10*3/u L 0.01 - 0.13 04/20 Specimen Type: BLOOD No comment entered. Ordering Provider: JOSE REIS Report Released Date/Time: Apr 15, 2024 02:47 PM Reporting Lab: [facility] [address] [address] Performing Lab: [facility] TRN [facility] [address] [address] [place] CBC AND DIFF (AUTO) IMMATURE GRANULOCYTE S/100 LEUKOCYTES IN BLOOD BY AUTOMATED COUNT 0.5 0.0 - 0.7 04/20 Specimen Type: BLOOD No comment entered. Ordering Provider: JOSE REIS Report Released Date/Time: Apr 15, 2024 02:47 PM [facility] [address] [address] [facility]: [facility] [address] [address] [place] CBC AND DIFF (AUTO) IMMATURE GRANULOCYTE S [#/VOLUME] IN BLOOD 0.05 10*3/u L 0.00 - 0.06 04/20 Specimen Type: BLOOD No comment entered. Ordering Provider: JOSE REIS Report Released Date/Time: Apr 15, 2024 02:47 PM Reporting Lab: [address] [address] [facility] [address] [address] [place] CBC AND DIFF (AUTO) NRBC % 0.0 0.0 - 0.0 04/20 Specimen Type: BLOOD No comment entered. Ordering Provider: JOSE REIS Report Released Date/Time: Apr 15, 2024 02:47 PM Reporting Lab: [address] [address] [facility] [address] [address] [place] CBC AND DIFF (AUTO) NRBC, ABS 0.00 10*3/u L 0.00 - 0.00 04/20 Specimen Type: BLOOD No comment entered. Ordering Provider: JOSE REIS Report Released Date/Time: Apr 15, 2024 02:47 PM Reporting Lab: [address] [address] [facility] [address] [place] [address] [facility] Vital Signs Combined list of inpatient and outpatient Vital Signs from Department of [employer] and [employer] Affairs, ranging from 12 months to all on record, depending upon the facility. Vital Sign Value Date Comments Source SYSTOLIC BLOOD PRESSURE 151 07/14/19 08:52:26 [facility] DIASTOLIC BLOOD PRESSURE 80 025 08:52:26 [facility] PULSE OXIMETRY 97 07/13/2024 08:52:26 [facility] WEIGHT 135 07/13/2024 08:52:26 [facility] BMI 21 kg/m2 07/13/2024 08:52:26 [facility] PULSE 54 07/13/2024 08:52:26 [facility] SYSTOLIC BLOOD PRESSURE 155 07/03/19 08:45:16 [facility] [place] [facility] DIASTOLIC BLOOD PRESSURE 66 025 08:45:16 [facility] [place] [facility] PULSE OXIMETRY 97 07/03/2024 08:45:16 [facility] [place] [facility] WEIGHT 140 07/03/2024 08:45:16 [facility] BMI 21 kg/m2 07/03/2024 08:45:16 [facility] PAIN 9 07/03/2024 08:45:16 [facility] TEMPERATURE 98.1 07/03/2024 08:45:16 [facility] [place] [facility] PULSE 58 07/03/2024 08:45:16 [facility] RESPIRATION 16 07/03/2024 08:45:16 [facility] WEIGHT 138.5 06/22/2024 09:00:02 [facility] BMI 21 kg/m2 06/22/2024 09:00:02 [facility] SYSTOLIC BLOOD PRESSURE 149 04/20/20 24 08:53:25 [facility] DIASTOLIC BLOOD PRESSURE 56 024 08:53:25 [facility] PULSE OXIMETRY 99 04/20/2024 08:53:25 [facility] WEIGHT 132.2 04/20/2024 08:53:25 [facility] BMI 20 kg/m2 04/20/2024 08:53:25 [facility] TEMPERATURE 97.3 04/20/2024 08:53:25 [facility] PULSE 48 04/20/2024 08:53:25 [facility] SYSTOLIC BLOOD PRESSURE 120 01/30/20 24 07:31:46 [facility] DIASTOLIC BLOOD PRESSURE 70 024 07:31:46 [facility] PAIN 7 01/30/2024 07:31:46 [facility] Encounters Combined list of: 1) Encounters from [facility] facilities going backup to the last 18 months, not all [place] inpatient encounters are included; 2) Encounters from the Department of [facility] facilities going backup to 280 months. Location Location Details Encounter Type Encounter Number Reason For Visit Attending Provider ADM Date DC Date Status Disposition Source [facility] Outpatient Encounter [id number] 03/11 [facility] Outpatient [facility]counter [id number] 03/15 [facility] Outpatient [facility]counter [id number] 03/15 [facility] GAIT TRAINING THERAPY [id number] Diagnos is: ICD-10- CM M20.41 Other hammer toe(s) (acquir ed), right foot MANDO BULLOCK 03/18 [facility] [id number] Diagnos is: ICD-10- CM M20.41 Other hammer toe(s) (acquir ed), right foot CLEOPATRA GAGE 03/19 [place] [facility] Outpatient Encounter [id number] 03/25 [facility] Out[facility] Encounter [id number] 03/27 [facility] Out[facility]counter [id number] 04/01 [facility] Out[facility]counter [id number] 04/08 [facility] Out[facility] Encounter [id number] 04/10 [facility] Outpatient [facility]counter [id number] 04[facility]10 [facility] Out[facility]counter [id number] 04/29 [facility] Outpatient [facility]counter [id number] 04/29 [facility] Outpatient [facility]counter [id number] 05/07 [facility] Out[facility] Encounter [id number] 05/10 [facility] [place] OFF[facility] O/P EST LOW 20 MIN [id number] Diagnos is: ICD-10- CM L60.0 Ingrowi ng WES Waters ES F 05/22 [place] [facility] Outpatient Encounter [id number] 05/22 [facility] Out[facility] Encounter [id number] 05/24 [facility] Out[facility] Encounter [id number] 05/24 [facility] Out[facility] Encounter [id number] 05/28 [facility] Out[facility] Encounter [id number] 06/05 [facility] Out[facility] Encounter [id number] 06/15 [facility] Out[facility] Encounter [id number] 06/15 [facility] Out[facility] Encounter [id number] 06/17 [facility] Out[facility] Encounter [id number] 06/18 [facility] Out[facility] Encounter [id number] 06/18 [facility] (631GE) MTMS BY PHARM LEAD ELECTRICAL CONTROLS ENGINEER 15 MIN [id number] Diagnos is: ICD-10- CM I48.20 Chronic atrial fibrill ation, unspeci fied YUVAL DURAN 06/19 [facility]89[facility]) [facility] Outpatient Encounter [id number] 06/19 [facility] (631GE) MTMS BY PHARM LEAD ELECTRICAL CONTROLS ENGINEER 15 MIN [id number] Diagnos is: ICD-10- CM Z79.01 USP (curren t) use of anticoa gulants YUVAL DURAN 06/21 [facility] (631GE) [facility] MED NUTRITION INDIV SUBSEQ [id number] Diagnos is: ICD-10- CM R63.4 Abnorma l weight loss DANIELLE PARR 06/24 [facility] Out[facility] Encounter [id number] 06/29 [facility] Out[facility] Encounter [id number] 06/30 [facility] Outpatient Encounter [id number] 07/03 [facility] Outpatient Encounter [id number] 07/04 [facility] OFFICE O/P EST HI 40 MIN [id number] Diagnos is: ICD-10- CM I48.91 Unspeci fied atrial fibrill ation JUAN QUINONEZ 07/04 [place] [facility] Outpatient Encounter [id number] 07/05 [facility] Outpatient Encounter [id number] 07/16 [facility] OFFICE O/P EST HI 40 MIN [id number] Diagnos is: ICD-10- CM M54.17 Radicul opathy, lumbosa cral region PRIETO,QUE MAGALI THI 07/16 [facility] Outpatient Encounter [id number] 07/16 [facility] (631GE) MTMS BY PHARM EST 15 MIN [id number] Diagnos is: ICD-10- CM I48.91 Unspeci fied atrial fibrill ation CHUY ELKINS 07/22 [facility] (631GE) [facility] Outpatient Encounter [id number] 07/28 [facility] Outpatient [facility]counter [id number] 07/31 [facility] Outpatient [facility]counter [id number] 08/06 [facility] OFFICE O/P EST MOD 30 MIN [id number] Diagnos is: ICD-10- CM M46.1 Sacroil iitis, not elsewhe re classif ied Alphonso COHEN 08/11 [facility] Outpatient Encounter [id number] 08/12 [facility] Out[facility] Encounter [id number] 08/25 [facility] Outpatient Encounter [id number] 08/29 [facility] Out[facility] Encounter [id number] 09/10 [facility] Outpatient Encounter [id number] 09/12 [facility] Out[facility] Encounter [id number] 09/16 [facility] Out[facility] Encounter [id number] 09/23 [facility] OFFICE O/P EST HI 40 MIN [id number] Diagnos is: ICD-10- CM M46.1 Sacroil iitis, not elsewhe re classif ied BERNABE PRIETOONG THI 10/01 [facility] Out[facility] Encounter [id number] 10/01 [facility] [place] [facility] O/P EST SF 10 MIN [id number] Diagnos is: ICD-10- CM I48.91 Unspeci fied atrial fibrill ation JUAN QUINONEZ 10/07 [place] [facility] Outpatient Encounter [id number] 10/10 [facility] Outpatient Encounter [id number] 10/20 [facility] OFFICE O/P EST MOD 30 MIN [id number] Diagnos is: ICD-10- CM L60.0 Ingrowi ng nail ROSS,CHARL ES F 10/22 [facility] Out[facility] Encounter [id number] 10/28 [facility] Out[facility] Encounter [id number] 10/28 [facility] COMPRE OPH EXAM EST PT 1/> [id number] Diagnos is: ICD-10- CM H40.111 1 Primary open-an gle glaucom a, right eye, mild stage ,LACE Y J 11/18 [facility] FIT SPECTACLES MULTIFOCAL [id number] Diagnos is: ICD-10- CM Z46.0 Encount er for fit/adj st of spectac les and contact lenses ,CINTHYA Y J 11/18 [facility] Out[facility] Encounter [id number] 11/21 [facility] Out[facility] Encounter [id number] 12/04 [facility] Outpatient Encounter [id number] 12/05 [facility] Outpatient Encounter [id number] 12/07 [facility] Outpatient Encounter [id number] 12/19 [facility] EVALUATION OF WHEEZING [id number] Diagnos is: ICD-10- CM R06.00 Dyspnea , unspeci fied JARMOLOWIC CASANDRA Mcneill 12/22 [facility] Out[facility] Encounter [id number] Lillian MOSQUEDA MD 12/22 [facility] Outpatient Encounter [id number] 12/22 [facility] PULM FUNCTION TEST [place] GAS [id number] Diagnos is: ICD-10- CM R06.09 Other forms of dyspnea Lillian MOSQUEDA MD 12/22 [facility] Out[facility] Encounter [id number] 12/29 [facility] Out[facility] Encounter [id number] 01/05 [facility] Out[facility] Encounter [id number] 01/13 [facility] Out[facility] Encounter [id number] 01/19 [facility] Outpatient [facility]counter [id number] 01/21 [facility] Outpatient [facility]counter [id number] 01/22 [facility] Out[facility] Encounter [id number] 01/27 [facility] OFFICE O/P EST MOD 30 MIN [id number] Diagnos is: ICD-10- CM M13.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 Alphonso COHEN 01/29 [facility] Out[facility] Encounter [id number] 01/29 [facility] Out[facility] Encounter [id number]/16 [facility] Outpatient Encounter [id number] 03/06 [facility] OFFICE O/P EST LOW 20 MIN [id number] Diagnos is: ICD-10- CM L60.0 Ingrowi ng nail WES CESAR ES F 03/11 [place] [facility] Outpatient Encounter [id number] 03/13 [facility] Out[facility]counter [id number] 03/16 [facility] Out[facility] Encounter [id number] 03/16 [facility] Out[facility] Encounter [id number] 03/18 [facility] Out[facility] Encounter [id number] 03/20 [facility] Out[facility]counter [id number] 03/20 [facility] Out[facility] Encounter [id number] 03/31 [facility] Outpatient Encounter [id number] 04/02 [facility] Out[facility] Encounter [id number] 1.04/07 [facility] Outpatient [facility]counter [id number] 04/13 [facility] Out[facility]counter [id number] 04/13 [facility] Out[facility]counter [id number] 04/13 [facility] Out[facility]counter [id number]/13 [facility] Outpatient [facility]counter [id number] 04/16 [facility] Out[facility] Encounter [id number] 1.04/16 [facility] Out[facility] Encounter [id number] 1.04/16 [facility] OFFICE O/P EST HI 40 MIN [id number] Diagnos is: ICD-10- CM I21.4 Non-ST elevati on (NSTEMI ) myocard ial infarct ion JUAN QUINONEZ 04/20 [place] [facility] Out[facility] Encounter [id number] 04/20 [facility] Out[facility]counter [id number] 1.04/26 [facility] Out[facility]counter [id number] 05/04 [facility] Out[facility] Encounter [id number] 05/08 [facility] Out[facility] Encounter [id number] 05/25 [facility] Out[facility] Encounter [id number] 06/03 [facility] Outpatient Encounter [id number] 06/04 [facility] MED NUTRITION INDIV SUBSEQ [id number] Diagnos is: ICD-10- CM R63.4 Abnorma l weight loss DANIELLE PARR CHANJ P 06/22 [place] [facility] Outpatient Encounter [id number]/23 [facility] Outpatient Encounter [id number] 06/30 [facility] OFFICE O/P EST MOD 30 MIN [id number] Diagnos is: ICD-10- CM M70.62 Trochan teric bursiti s, left hip Alphonso COHEN L 07/03 [facility] Outpatient Encounter [id number]/03 [facility] OFFICE O/P EST MOD 30 MIN [id number] Diagnos is: ICD-10- CM I48.91 Unspeci fied atrial fibrill ation Jamia EVANS 07/13 [place] [facility] Outpatient Encounter [id number] 07/13 [facility] OFFICE O/P EST LOW 20 MIN [id number] Diagnos is: ICD-10- CM L60.0 Ingrowi ng WES Waters F 07/22 [place] [facility] Outpatient Encounter [id number] 07/24 [facility] Outpatient Encounter [id number] 07/24 [facility] Out[facility] Encounter [id number] 07/31 [facility] Out[facility] Encounter [id number] 08/17 [facility] Out[facility] Encounter [id number] 08/21 [facility] Out[facility] Encounter [id number] 08/22 [facility] Out[facility]counter [id number] 08/26 [facility] Out[facility] Encounter [id number] 09/02 [facility] Social History Combined list of available smoking, tobacco, and other social history from Department of Defense and Veterans Affairs facilities. Social History Type Response Date Comment [facility] Tobacco smoking status [facility] VA-TOBACCO USE FORMER CIGARETTES 07/13/2024 [facility] History of tobacco use VA-TOBACCO NEVER USED OTHER TYPE 07/13/2024 [facility] History of tobacco use VA-TOBACCO FORMER USER 07/04/2023 [facility] History of tobacco use VA-TOBACCO FORMER USER 03/14/2022 [facility] History of tobacco use VA-TOBACCO FORMER USER 02/08/2021 [facility] History of tobacco use VA-TOBACCO FORMER USER 10/09/2019 [facility] History of tobacco use VA-TOBACCO QUIT 15 YRS OR MORE 10/31/2018 [facility] History of tobacco use QUIT TOBACCO USE > 7 YEARS AGO 07/12/2017 [facility] History of tobacco use QUIT TOBACCO USE > 7 YEARS AGO 03/30/2016 [facility] History of tobacco use QUIT TOBACCO USE > 7 YEARS AGO 03/04/2015 [facility] Plan of Care List of future care activities from [facility] facilities. Additional future care activities may be listed in the Assessment and Plan section. Date/Time Care Activity Care Activity Detail Facili ty 09/08/2024 AMBULATORY - MEDICINE AMBULATORY - MEDICI [facility] Advance Directives List of completed, amended, or rescinded Advance Directives on record at [facility] facilities. An actual copy of the Directive is not included. Date Advance Directive Provider Source 02/21/2021 ADVANCE DIRECTIVE BEL ESCALANTE
--- OUTSIDE RECORDS SUMMARY | 2024-09-08 10:29 | XMS_ITS | Data Portability ---
Author Organization [facility], [facility] Address [address] [place] [address] Assessment No assessment recorded. Plan of Treatment Reminders Order Date Submit Date Provider Last Modified By Organization Details Last Modified Time Details Appointments None record ed. Lab None record ed. Referral None record ed. Procedures None record ed. Surgeries None record ed. Imaging XR, foot, 3 or more view 024 08/02/19 24 [facility], [address] [facility], [facility] [address], [place], [address], 4 11:05:10 Medication Orders None record ed. Patient TargetsNo targets recorded. Patient InstructionsNo instructions recorded. Reason for Referral None Reported. Medical Equipment None Reported. Allergies No known drug allergies Medications Name Sig Start Date Stop Date Status Note LastModified by Organization Details LastModified Time ondansetron HCl 4 mg tablet TAKE 1 TABLET BY MOUTH EVERY 8 HOURS NEEDED FOR NAUSEA AND VOMITING active Not Available Not Available No t Available sulfamethoxaz ole 800 mg-trimethopr im 160 mg tablet TAKE ONE TABLET BY MOUTH TWICE A DAY WITH FOOD active Not Available Not Available No t Available acetaminophen 500 mg tablet TAKE 2 TABLETS BY MOUTH EVERY 8 HOURS active Not Available Not Available No t Available oxycodone 5 mg tablet TAKE 1 TO 2 TABLETS BY MOUTH EVERY 4 TO 6 HOURS NEEDED FOR PAIN active Not Available Not Available No t Available metoprolol tartrate 25 mg tablet TAKE ONE TABLET BY MOUTH TWICE A DAY active Not Available Not Available No t Available oxycodone HCl-oxycodone -ASA oxyCODONE HCl 5MG Tablet 2022 active Statu s: 'Curr ent'; Not Available Not Available Not Available Multaq 400 mg tablet TAKE ONE TABLET BY MOUTH TWICE A DAY active Not Available Not Available No t Available Xarelto 20 mg tablet TAKE ONE TABLET BY MOUTH EVERY DAY AT 17:30 active Not Available Not Available No t Available Vitals Date Recorded Body height Body mass index (BMI) Body weight Provider Name and Address Organization Details Last Updated DateTime 08/02/2023 172.72 cm 21.3 kg/m2 42272.93 g Shaneka Ling [place] - [facility] 08/02/2023 07:27:42 Social History None recorded. Functional Status None recorded. Mental Status None recorded. Family History Nothing Reported. Medical History No medical history recorded. Past Encounters Encounter ID Performer Location Encounter Start Date Encounter Closed Date Diagnosis/Indication Diagnosis SNOMED-CT Code Diagnosis ICD10 Code Diagnosis Note [id number] [facility] [address] [place] [address] 08/02/2023 07:19:34 08/27/2023 11:05:10 Pain in right foot 4260062540 03130 M79.671 Foot pain 84120805 M79.6 71 already done . 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 6422127406 316109 M20.41 Health Concerns Section Related Observation LastModified by Organization Detai ls LastModified Time None Recorded Concern Status LastModified by Organization Details LastModified Time None Recorded Advance Directives Directive None Recorded Payers Encounter Date Sequence Insurance Name Policy Number Policy Orellana Covered Member ID Orellana Member ID Guarantor Name 08/02/2023 [facility] Clifford Khan [id number] Clifford Khan Notes Date Note Type Note Provider Name and Address Organization Details Recorded Time 08/02/2023 text/html CHIEF COMPLAINT: Status post right second through fifth hammertoe corrections, 2nd metatarsal osteotomy and plantar plate repair; date of surgery 03/26/23 HISTORY OF PRESENT ILLNESS: Clifford presents today for postoperative evaluation He is now about 4.5 months out from surgery. He presents today ambulating in a normal shoe. He is thrilled with his surgical results. He states his preoperative pain is completely resolved. He does have occasional discomfort when he walks barefoot and he localizes this discomfort to the lesser metatarsal heads plantarly. However he has no pain when he ambulates in a shoe and no difficulty finding shoes to fit him. Past family, medical, social history and review of systems has been reviewed, updated and is located in the patient's chart. PHYSICAL EXAM:Patient in no acute distress, alert and oriented. Mood and affect appropriateFocused examination right lower extremity there is minimal swelling which is within normal limits for this stage post opSurgical incisions are fully healedOverall forefoot deformity correction is well maintained although the second toe does sit in a slightly elevated position compared to the remaining lesser toesthis is very minimalNontender at all PIP sitesNo tenderness at 2nd metatarsal osteotomy siteSecond MTP joint is stable to anterior drawer testingHe is grossly neurovascularly intact with motor and sensation intact in all distributionsToes are warm and well-perfused with palpable DP and PT pulses X-rays ordered, obtained and reviewed at [facility], lateral, oblique weightbearing imaging of the right foot was obtained today in office. This demonstrates retained screw in place in the second metatarsal head. The second MTP joint is in near anatomic alignment. All lesser toe PIP joints appear successfully fused. There is no significant coronal or sagittal plane malalignment at any of the lesser MTP joints. IMPRESSION:- status post right second through fifth hammertoe corrections, 2nd metatarsal osteotomy and plantar plate repair; date of surgery 03/26/23 PLAN:-Overall the patient is progressing extremely well postoperatively. 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 I have suggested that the patient avoid barefoot walking and use a slipper or sandal around his house. I am not concerned that this pain represents a recurrence of deformity- the patient may continue to increase his activity as tolerated. He has no restrictions from an orthopedic standpoint. We will follow him in office on an as needed basis moving forward Alivia Brown MD [address] [place] [address] [address], [place], [address], [facility] - [facility] 08/04/2023 18:59:37
--- OUTSIDE RECORDS SUMMARY | 2024-09-08 10:29 | XMS_ITS ---
Author Name [facility] [place] [facility] [place] Address [address] [place] [address] Care Team Providers Care Product Examiner Name Role Phone NEHEMIAH CUEVAS Primary Care [...] Name Patient's Relationship to Policy Orellana [facility]NA [facility] Aug 11, 2014 [id number] [phone] DHAVAL SHAQ Wagner PATIENT ANTHMIGUEL BCBS [facility] MEDICARE SUPPLEMEN ARTEMIO [facility] Aug 11, 2014 [id number] DHAVAL SHAQ Wagner [place]IENT [place] SUPPLEMEN ARTEMIO [facility]EX 2 Aug 11, 2014 [id number] [phone] DHAVAL SHAQ [place] SUPPLEMEN ARTEMIO MEDEX 2 Aug 11, 2014 [id number] DHAVAL BernardSHAQ HAI BCBS [facility] MEDICARE SUPPLEMEN ARTEMIO [facility] Aug 11, 2014 [id number] [phone] ARCHOCTAVIOEA SHAQ Wagner [facility] [place] ([place]) MEDICARE SUPPLEMEN [facility] Aug 11, 2014 [id number] ARCHOCTAVIOEA SHAQ WagnerA [facility] (WNR) MEDICARE ADVANTAGE HUMAN A INSUR [facility] Jan 11, 2022 [id number] [phone] ARCHOCTAVIOEA SHAQ Wagner PATIENT USMANA [facility] (WNR) MEDICARE ADVANTAGE [facility] (WNR) Jan 11, 2022 [id number] [phone] ARCHAMBEA SHAQ Wagner PATIENT MEDICARE (WNR) MEDICARE () PART A Dec 11, 2014 PART A [id number] ARCHAMBEA Bernard,SHAQ PATIENT MEDICARE (WN) MEDICARE () PART B Aug 11, 2014 PART B [id number] [phone] ARCHAMBEA SHAQ Wagner PATIENT MEDICARE (WN) MEDICARE () PART A Aug 11, 2014 PART A [id number] ARCHAMBEA Bernard,SHAQ PATIENT MEDICARE (WNR) MEDICARE () PART B Aug 11, 2014 PART B [id number] [phone] ARCHAMBEA U,SHAQ PATIENT MEDICARE (WNR) MEDICARE () PART A Aug 11, 2014 PART A [id number] ARCHAMBEA SHAQ Wagner PATIENT MEDICARE (WNR) MEDICARE () PART B Aug 11, 2014 PART B [id number] ARCHAMBEA U,SHAQ PATIENT MEDICARE (WNR) MEDICARE () PART A Aug 11, 2014 PART A [id number] ARCHAMBEA Bernard,SHAQ PATIENT MEDICARE (WNR) MEDICARE () PART B Aug 11, 2014 PART B [id number] ARCHAMBEA SHAQ Wagner [facility] (WNR) MEDICARE ADVANTAGE [facility] (WNR) May 13, 2020 [id number] [phone] ARCHAMBEA SHAQ Wagner PATIENT Selected Encounter This section includes the information on record at [place] for the Encounter. Date/Time Encounter Type Encounter Description Reason Provider Source Jul 03, 2024 08:30 AM OFFICE O/P EST MOD 30 MIN PM&RS PHYSICIAN ICD-10-CM M70.62 Trochanteric bursitis, left hip ALYCE ENG IHE Encounter Template Text not used by [place] Assessments - Encounter Diagnoses This section includes the primary and secondary diagnoses documented for the Encounter. Date/Time Primary/Secondary Diagnosis Diagnosis Name Provider Source Jul 15, 2024 08:38 AM PRIMARY Trochanteric bursitis, left hip ALYCE ENG [place] [facility] [place] [facility] Jul 15, 2024 08:38 AM SECONDARY Radiculopathy, lumbar region ALYCE ENG [place] [facility] [place] [facility] Jul 15, 2024 08:38 AM SECONDARY Sacroiliitis, not elsewhere classified ALYCE ENG [place] [facility] [place] [facility] Plan of Treatment: Future Appointments (+ 6 months) and Future Tests (+/- 45 days) The Plan of Treatment section includes future care activities for the patient from [facility] [place] [facility] This section includes future appointments and future orders which are active, pending or scheduled. Future Appointments This section includes appointments that were scheduled to occur 6 months from the date of the Encounter, up to a maximum of 20 appointments. The data comes from all [place] treatment facilities. Appointment Date/Time Appointment Type Appointme nt Facility Name Jul 09, 2024 09:00 AM AMBULATORY [place]ICINE [place] [facility] [place] [facility] Jul 13, 2024 09:00 AM [facility]ORY [facility]ICINE [facility] Jul 22, 2024 08:00 AM [facility]ATORY - MEDICINE [facility] Sep 08, 2024 09:45 AM AMBULATORY - MEDICINE [place] [facility] [place] [facility] September 18, 2024 09:00 AM AMBULATORY - MEDICINE [place] [facility] [place] [facility] Oct 15, 2024 08:30 AM [facility]ATORY - MEDICINE [facility] Dec 08, 2024 08:00 AM AMBULATORY - [place]ICINE [place] [facility] [place] [facility] Dec 16, 2024 10:00 AM AMBULATORY - REHAB MEDICIN [place] [facility] [place] [facility] Active, Pending, and Scheduled Orders This section includes a listing of several types of active, pending, and scheduled orders, including clinic medications orders, diagnostic test orders, procedure orders and consult orders; where the start date of the order is 45 days before the date of the Encounter or 45 days after the date of theEncounter. The data comes from all [place] treatment facilities. Test Date/Time Test Type Test Details Facility Name Jun 23, 2024 04:05 PM Consult Order COMMUNITY CARE-DENTAL GENERAL [facility] [employer] [facility] [place] [facility] Jul 13, 2024 09:45 AM Consult Order PAIN CLINI C/[facility] OUTPT [facility] Lab Results: +/- 30 days of the [...] Type Comment Jun 22, 2024 07:51 AM [facility] FERRITIN SERUM Specimen Type: SERUM No comment entered. Ordering Provider: NEHEMIAH LORD Report Released Date/Time: Apr 26, 2024 02:32 AM Reporting Lab: [address] [address] Performing Lab: [address] [address] FERRITIN 30 ng/mL 20-300 Jun 22, 2024 07:51 AM [facility] RETICULOCYTES BLOOD Specimen Type: B LOOD No comment entered. Ordering Provider: NEHEMIAH CUEVAS Report Released Date/Time: Apr 26, 2024 02:32 AM Reporting Lab: [address] [address] Performing Lab: [address] [address] RETIC % 0.7 0.6-2.0 RETIC, ABS 31.3 10*3/uL 30.0-90.0 RET-HE 32.3 pg 27.9-42.0 Jun 22, 2024 07:51 AM [facility] IRON & TIBC PANEL SERUM Specimen Type : SERUM No comment entered. Ordering Provider: NEHEMIAH CUEVAS Report Released Date/Time: Apr 26, 2024 02:32 AM Reporting Lab: [address] [address] Performing Lab: [address] [address] TIBC 355 ug/dL 204-475 IRON 63 ug/dL 40-160 Transferrin Saturation 17.7 L 20.0-50.0 Transferrin (TRF) 269 mg/dL 200-360 Jun 22, 2024 07:51 AM [facility] CBC AND DIFF (AUTO) BLOOD Specimen Ty pe: BLOOD No comment entered. Ordering Provider: NEHEMIAH CUEVAS Report Released Date/Time: Apr 26, 2024 02:32 AM Reporting Lab: [address] [address] Performing Lab: [address] [address] WBC 8.68 10*3/uL 4.50-11.00 RBC 4.60 10*6/uL [...] Height Weight Body Mass Index Source Jul 03, 2024 08:45 AM 98.1 58 155/66 16 97 9 140 21 [place] [facility] Social History: Smoking Status (Most current) [...] 04, 2023 09:00 AM VA-[place]BACCO FORMER USER [place] [facility] Tobacco Use History This section [...] VA-TOBACCO FORMER USER [place] [facility] [place] [facility] Mar 14, 2022 03:02 PM VA-TOBACCO QUIT 15 YRS OR MORE [facility] [place] [facility] Feb 08, 2021 09:00 AM VA-TOBACCO FORMER USER [place] [facility] [place] [facility] Feb 08, 2021 09:00 AM VA-TOBACCO QUIT 15 YRS OR MORE [place] [facility] [place] [facility] October 09, 2019 01:12 PM VA-TOBACCO FOR[facility] October 09, 2019 01:12 PM VA-TOBACCO QUIT 5 TO < 15 YRS [facility] Advance Directives: All historical and current [...] 21, 2021 ADVANCE DIRECTIVE BEL ESCALANTE FORMERLY [facility], [facility] Encounter Notes: All associated encounter notes This section contains the clinical notes associated to the Encounter. Date/Time Encounter Note(s) Provider Source Jul 03, 2024 09:07 AM PHYSICAL MEDICINE REHAB NOTE: LOCAL TITLE: PM&R BACK/JOINT PROCEDURE NOTE STANDARD TITLE: PHYSICAL MEDICINE REHAB NOTE DATE OF NOTE: JUL 03, 2024@09:07 ENTRY DATE: JUL 03, 2024@09:07:53 AUTHOR: AKI ENG COSIGNER: URGENCY: STATUS: COMPLETED PROCEDURE: Troch bursa Left injection with cortisone. INDICATION: Left hip pain. MEDICATIONS: 20mg triamcinolone and 1mL of 1% lidocaine. HISTORY: [place] presents today with significant left hip pain has been bothering him now for the last several months. He was hospitalized in March and had a bleed from the bladder. He had been on anticoagulants. He was hospitalized for approximately 2 weeks. He states that during that time he developed significant pain in the left hip. Pain does a send towards the lumbar region. Has had previous SI joint injections with considerable improvement upwards of 60%. He additionally began to experience pain radiating down the right leg in the L5 distribution. This pain has been relentless. He has had difficulty sleeping in the bed. He has difficulties walking. There is an aching sensation that he quantifies it 8 out of 10 on an analog scale. He denies numbness and tingling. He does feel a sensation of weakness on the right side. EXAM: Frail gentleman with previous history of bladder cancer. He did have previous radiation. He has tenderness over the left hip with irritability and both internal and external rotation as well as in flexion. He has a positive Tana's and positive Gaenslen's. Negative Lasegue's maneuver. Negative Stinchfield. The majority of the tenderness is over the trochanteric bursa on the left side. On the right side he has radiating to the L5 distribution. Lasegue's maneuver is weakly positive. He has 1+ reflex at the knee and ankle. He is ambulating with left antalgia. INFORMED CONSENT: Obtained verbally, and through IMED. [...] swelling of the shoulder. TIME OUT NOTE TIME:Jun@08:40 correctly stated: [X]Full name: SHAQ GREGORIO [X]Last of #: [id number] [X]: Aug PROVIDER NAME: Aki Eng PA-c STAFF NAME: Elayne Dunn Lot #: [id number] Exp: July 2025 Patient was seated with shoulder relaxed. The joint was palpated and marked. Cleansed with povidone x3. Direct caudad no touch approach was utilized. 25- gauge 1-1/2 inch needle was advanced in contact/slight medial direction until loss of resistance. After negative aspiration for heme, injectate was [...] me with any issues. Pre-procedure pain level: 8 out of 10 Post-procedure pain level:3 out of 10 in the left trochanteric bursa region. 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 He had hospitalization at which time he was in the bed for quite some time. This is led to some deconditioning. He has proved in the past with injection. The left hip received trochanteric bursa injection today and we were unable to do sacroiliac joint injection as it requires fluoroscopic guidance. He will be scheduled for a right L5 transforaminal epidural injection. If at that time his symptoms are not as dramatic on the right or left sacroiliac joint injection would be provided. Continue to use oxycodone 5 mg 3 times daily. He will be seeing his primary care physician and at that point he may wish to consider a Butrans patch given the degree of discomfort that he is currently experiencing. Medication Reconciliation: Outpatient: Has the patient been taking medications as documented in the EMLR? YES: The patient has been taking medications as documented in the EMLR. Essential Medication List for Review used to complete this medication reconciliation. INCLUDED IN THIS LIST: Alphabetical list of active outpatient prescriptions [facility]ensed from this [facility] (local) and dispensed from another [place] or [facility] facility (remote) as well as inpatient orders [...] JLV. Allergies/ADRs (Tool #5) FACILITY ALLERGY/ADR -------- [facility] NO KNOWN ALLERGIES [place] [facility] [place] [facility] CODEINE [facility] [place] [facility] NEURONTIN Med Recon NoGlossary (Tool #1) INCLUDED IN THIS LIST: Alphabetical list of active outpatient prescriptions dispensed from this [facility] (local) and dispensed from another [place] or [facility] facility (remote) as well as inpatient orders (local pending and active), local clinic medications, locally documented non-VA medications, and local prescriptions that have or been discontinued in the past 90 days. Non-VA Meds Last Documented On: Apr 26, 2024 NOTE The display of VA prescriptions dispensed from another [place] or [facility] facility (remote) is limited to active outpatient prescription entries matched to National Drug File at the originating site and may not include some items such as investigational drugs, compounds, etc. NOT INCLUDED IN THIS LIST: Medications self-entered by the patient into personal health records (i.e. [employer]) are NOT included in this list. Non-VA medications documented outside this [place], remote inpatient orders (regardless of status) and [...] ONE TABLET BY MOUTH ONCE DAILY Rx# [id number] Last Released: 04/28/24 Qty/Days Supply: Rx Expiration Date: 04/29/25 Refills Remainin OUTPT APIXABAN 5MG TAB (Status = Discontinued) TAKE ONE TABLET BY MOUTH EVERY 12 HOURS Rx# [id number] Last Released: 03/17/24 Qty/Days Supply: 180/ Rx Expiration Date: 06/20/24 Refills Remainin Non-VA ASPIRIN 81MG EC TAB TAKE ONE TABLET BY MOUTH ONCE DAILY Patient wants to buy from Non-VA pharmacy. Indication: FOR BLOOD CLOT PREVENTION FOLLOWING PCI OUTPT ATORVASTATIN CALCIUM 80MG TAB (Status = Active) TAKE ONE TABLET BY MOUTH ONCE DAILY FOR HIGH CHOLESTEROL Rx# [id number] Last Released: 04/24/24 Qty/Days Supply: Rx Expiration Date: 04/21/25 Refills Remainin Indication: FOR HIGH CHOLESTEROL OUTPT DRONEDARONE 400MG TAB (Status = Discontinued) TAKE ONE TABLET BY MOUTH TWICE DAILY Rx# [id number] Last Released: 03/17/24 Qty/Days Supply: 180 Rx Expiration Date: 09/17/24 Refills Remainin OUTPT FERROUS SULFATE 325MG TAB (Status = Active) TAKE ONE TABLET BY MOUTH ONCE DAILY TO SUPPLEMENT IRON TO SUPPLEMENT IRON Rx# [id number] Last Released: 04/30/24 Qty/Days Supply: 100 Rx Expiration Date: 04/27/25 Refills Remainin Indication: TO SUPPLEMENT IRON OUTPT LATANOPROST 0.005% OPH SOLN (Status = Active) 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 Rx Expiration Date: 08/12/24 Refills Remainin Indication: FOR WIDE-ANGLE GLAUCOMA OUTPT LIDOCAINE 5% PATCH (Status = Discontinued) APPLY 1 PATCH TOPICALLY ONCE DAILY FOR NERVE PAIN (LEAVE PATCH ON FOR 12 HOURS, THEN REMOVE PATCH) Rx# [id number] Last Released: 10/14/23 Qty/Days Supply: Rx Expiration Date: 10/11/24 Refills Remainin Indication: FOR NERVE PAIN OUTPT LIDOCAINE 5% PATCH (Status = Active) APPLY 1 PATCH TOPICALLY ONCE DAILY FOR NERVE PAIN (LEAVE PATCH ON FOR 12 HOURS, THEN REMOVE PATCH) Rx# [id number] Last Released: 06/18/24 Qty/Days Supply: Rx Expiration Date: 04/21/25 Refills Remainin Indication: FOR NERVE PAIN OUTPT LOVASTATIN 20MG TAB (Status = Discontinued) TAKE ONE TABLET BY MOUTH AT BEDTIME FOR CHOLESTEROL -- AVOID GRAPEFRUIT JUICE Rx# [id number] Last Released: 01/16/24 Qty/Days Supply: Rx Expiration Date: 10/11/24 Refills Remainin OUTPT METOPROLOL TARTRATE 25MG TAB (Status = Discontinued) TAKE ONE-HALF TABLET BY MOUTH TWICE DAILY FOR BLOOD PRESSURE/HEART Rx# [id number] Last Released: 10/10/23 Qty/Days Supply: Rx Expiration Date: 10/08/24 Refills Remainin Indication: FOR HIGH BLOOD PRESSURE Non-VA METOPROLOL TARTRATE 25MG TAB TAKE ONE TABLET BY MOUTH TWICE DAILY Patient wants to buy from Non-VA pharmacy. Indication: FOR HEART ATTACK OUTPT METOPROLOL TARTRATE 25MG TAB (Status = Active) TAKE ONE TABLET BY MOUTH TWICE DAILY FOR BLOOD PRESSURE/HEART Rx# [id number] Last Released: 04/29/24 Qty/Days Supply: Rx Expiration Date: 04/29/25 Refills Remainin OUTPT NALOXONE HCL 4MG/SPRAY SOLN NASAL SPRAY (Status = ) INSTILL 1 SPRAY ONE NOSTRIL ONE TIME NEEDED FOR OPIOID OVERDOSE CALL 911 WITH ADMINISTRATION. REPEAT WITH SECOND DEVICE IF SYMPTOMS RETURN Rx# [id number] Last Released: 01/25/24 Qty/Days Supply: Rx Expiration Date: 04/20/24 Refills Remainin Indication: FOR OPIOID OVERDOSE OUTPT NUTRITION SUPL ENSURE PLUS/VANILLA LIQ (Status = Discontinued) DRINK 1 CAN BY MOUTH TWICE DAILY Rx# [id number] Last Released: 03/14/24 Qty/Days Supply: Rx Expiration Date: 04/29/24 Refills Remainin OUTPT NUTRITION SUPL ENSURE PLUS/VANILLA LIQ (Status = Active) DRINK 1 CAN BY MOUTH TWICE DAILY FOR NUTRITIONAL SUPPLEMENTATION Rx# [id number] Last Released: 06/12/24 Qty/Days Supply: Rx Expiration Date: 05/10/25 Refills Remainin Indication: FOR NUTRITIONAL SUPPLEMENTATION OUTPT OMEPRAZOLE 20MG EC CAP (Status = Active) TAKE TWO CAPSULES BY MOUTH EVERY MORNING 30 MINUTES BEFORE BREAKFAST Rx# [id number] Last Released: 04/20/24 Qty/Days Supply: Rx Expiration Date: 10/11/24 Refills Remainin OUTPT OXYCODONE HCL 5MG/APAP 325MG TAB (Status = Discontinued) TAKE 1 TABLET BY MOUTH THREE TIMES DAILY NEEDED FOR PAIN [NEXT FILL DATE 04/17/24] Rx# [id number] Last Released: 03/20/24 Qty/Days Supply: Rx Expiration Date: 04/19/24 Refills Remainin Indication: FOR PAIN OUTPT OXYCODONE HCL 5MG/APAP 325MG TAB (Status = Discontinued) TAKE 1 TABLET BY MOUTH THREE TIMES DAILY NEEDED FOR PAIN [NEXT FILL DATE 05/15/24] Rx# [id number] Last Released: 04/14/24 Qty/Days Supply: Rx Expiration Date: 05/13/24 Refills Remainin Indication: FOR PAIN OUTPT OXYCODONE HCL 5MG/APAP 325MG TAB (Status = Discontinued) TAKE 1 TABLET BY MOUTH THREE TIMES DAILY NEEDED FOR PAIN [NEXT FILL DATE ] Rx# [id number] Last Released: 05/12/24 Qty/Days Supply: Rx Expiration Date: 06/08/24 Refills Remainin Indication: FOR PAIN OUTPT OXYCODONE HCL 5MG/APAP 325MG TAB (Status = Active) TAKE 1 TABLET BY MOUTH THREE TIMES DAILY NEEDED FOR PAIN NEXT FILL 07/10/24 Rx# [id number] Last Released: 06/09/24 Qty/Days Supply: Rx Expiration Date: 07/05/24 Refills Remainin Indication: FOR PAIN OUTPT ROPINIROLE HCL 0.25MG TAB (Status = Active) TAKE ONE TABLET BY MOUTH DAILY Rx# [id number] Last Released: 05/22/24 Qty/Days Supply: Rx Expiration Date: 12/08/24 Refills Remainin OUTPT ZINC OXIDE 16% TOP PASTE (Status = Active) APPLY SUFFICIENT AMOUNT TOPICALLY ONCE DAILY FOR SKIN IRRITATION Rx# [id number] Last Released: 04/24/24 Qty/Days Supply: Rx Expiration Date: 04/21/25 Refills Remainin Indication: FOR SKIN IRRITATION SUPPLIES /robe/ AKI ENG [facility] Signed: 07/03/2024 09:16 AKI ENG [facility] [place] [facility]
--- OUTSIDE RECORDS SUMMARY | 2024-09-08 10:29 | XMS_ITS ---
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 Name Role Phone NEHEMIAH CUEVAS [...] to Policy Orellana [facility]NA [facility] Aug 11, 2014 [id number] [phone] DHAVAL SHAQ Wagner PATIENT ANTHEM [place] MED[place] SUPPLEMEN ARTEMIO [facility] Aug 11, 2014 [id number] [phone] DHAVAL SHAQ Wagner PATIENT BCBS [place] MEDICARE SUPPLEMEN ARTEMIO MEDEX 2 Aug 11, 2014 [id number] DHAVAL SHAQ Wagner PATIENT [place] MEDICARE SUPPLEMEN ARTEMIO MEDEX 2 Aug 11, 2014 [id number] DHAVAL SHAQ Wagner PATIENT BCBS OF [facility] MEDICARE SUPPLEMEN ARTEMIO [facility] Aug 11, 2014 [id number] ARCHAMBEA U,SHAQ PATIENT [facility] [place] ([place] MEDICARE [facility] Aug 11, 2014 [id number] ARCHOCTAVIOEA SHAQ Wagner PATIENT HUMANA [facility] (WNR) MEDICARE ADVANTAGE HUMAN A INSUR [facility] Jan 11, 2022 [id number] [phone] ARCHOCTAVIOEA SHAQ Wagner PATIENT USMANA MCR (WNR) MEDICARE ADVANTAGE [facility] (WNR) Jan 11, 2022 [id number] [phone] ARCHAMBEA SHAQ Wagner PATIENT MEDICARE (WNR) MEDICARE () PART A Dec 11, 2014 PART A [id number] ARCHAMBEA Bernard,SHAQ PATIENT MEDICARE ([place]) MEDICARE () PART B Aug 11, 2014 PART B [id number] ARCHAMBEA SHAQ Wagner PATIENT MEDICARE (WNR) MEDICARE () PART B Aug 11, 2014 PART B [id number] [phone] ARCHAMBEA SHAQ Wagner PATIENT MEDICARE ([place]) MEDICARE () PART A Aug 11, 2014 PART A [id number] ARCHAMBEA SHAQ Wagner PATIENT MEDICARE ([place]) MEDICARE () PART B Aug 11, 2014 PART B [id number] [phone] ARCHAMBEA SHAQ Wagner PATIENT MEDICARE (WNR) MEDICARE () PART A Aug 11, 2014 PART A [id number] ARCHAMBEA SHAQ Wagner PATIENT MEDICARE ([place]NR) MEDICARE () PART B Aug 11, 2014 PART B [id number] ARCHAMBEA Bernard,SHAQ PATIENT MEDICARE (WNR) MEDICARE () PART A Aug 11, 2014 PART A [id number] ARCHAMBEA SHAQ Wagner [facility] (WNR) MEDICARE ADVANTAGE [facility] (WNR) May 13, 2020 [id number] [phone] ARCHAMBEA SHAQ Wagner PATIENT Selected Encounter This section includes the information on record at [place] for the Encounter. Date/Time Encounter Type Encounter Description Reason Provider Source Jun 22, 2024 08:30 AM MED NUTRITION INDIV SUBSEQ NUTRITION/DIETETIC S-INDIVIDUAL ICD-10-CM R63.4 Abnormal weight loss VICTORIA PARR Lillian Encounter Template Text not used by [place] Assessments - Encounter Diagnoses This section includes the primary and secondary diagnoses documented for the Encounter. Date/Time Primary/Secondary Diagnosis Diagnosis Name Provider Source Jun 22, 2024 12:08 PM PRIMARY Abnormal weight loss VICTORIA PARR EDIN Jun 22, 2024 12:08 PM SECONDARY Body mass index [BMI] 22.0-22.9, adult VICTORIA PARR EDIN Jun 22, 2024 12:08 PM SECONDARY Dietary counseling and surveillance VICTORIA PARR Plan of Treatment: Future Appointments (+ 6 [...] Appointment Type Appointme nt Facility Name Jun 23, 2024 09:30 AM [facility]ORY [facility] [place] [facility] Jul 03, 2024 08:30 AM AMBUL[facility]ORY [facility] [place] [facility] Jul 09, 2024 09:00 AM AMBULATORY [facility]ICINE [facility] [place] [facility] Jul 13, 2024 09:00 AM AM[facility]ULATORY - [facility]INE [facility] Jul 22, 2024 08:00 AM AMBULATORY - MEDICINE [facility] Sep 08, 2024 09:45 AM AMBULATORY - MEDICINE [facility] [place] [facility] September 18, 2024 09:00 AM AMBULATORY - MEDICINE [facility] [place] [facility] Oct 15, 2024 08:30 AM [facility]ATORY - [facility]ICINE [facility] Dec 08, 2024 08:00 AM AMBULATORY [facility] MEDICINE [facility] [place] [facility] Dec 16, 2024 10:00 AM AMBULATORY - REHAB [facility]ICIN [facility] [place] [facility] Active, Pending, and Scheduled [...] PM Consult Order COMMUNITY CARE-DENTAL GENERAL Cons Net Lead Developer's Choice [facility] Jul 13, 2024 09:45 AM Consult Order PAIN CLINI C/NHM OUTPT Cons Net Lead Developer's Choice [facility] Lab Results: +/- 30 days of the [...] Type Comment Jun 22, 2024 07:51 AM [facility] FERRITIN SERUM Specimen Type: SERUM No comment entered. Ordering Provider: NEHEMIAH LORD Report Released Date/Time: Apr 26, 2024 02:32 AM Reporting Lab: [facility] [address] [facility] [address] Performing Lab: [address] [address] FERRITIN 30 ng/mL 20-300 Jun 22, 2024 07:51 AM [facility] RETICULOCYTES BLOOD Specimen Type: B LOOD No comment entered. Ordering Provider: NEHEMIAH CUEVAS Report Released Date/Time: Apr 26, 2024 02:32 AM Reporting Lab: [facility] [address] [facility] [address] Performing Lab: [address] [address] RETIC % 0.7 0.6-2.0 RETIC, ABS 31.3 10*3/uL 30.0-90.0 RET-HE 32.3 pg 27.9-42.0 Jun 22, 2024 07:51 AM [facility] IRON & TIBC PANEL SERUM Specimen Type : SERUM No comment entered. Ordering Provider: NEHEMIAH CUEVAS Report Released Date/Time: Apr 26, 2024 02:32 AM Reporting Lab: [address] [address] Performing Lab: [address] [address] TIBC 355 ug/dL 204-475 IRON 63 ug/dL 40-160 Transferrin Saturation 17.7 L 20.0-50.0 Transferrin (TRF) 269 mg/dL 200-360 Jun 22, 2024 07:51 AM [facility] CBC AND DIFF (AUTO) BLOOD Specimen Ty pe: BLOOD No comment entered. Ordering Provider: NEHEMIAH CUEVAS Report Released Date/Time: Apr 26, 2024 02:32 AM Reporting Lab: [address] [address] Performing Lab: [address] [address] WBC 8.68 10*3/uL 4.50-11.00 RBC 4.60 10*6/uL [...] Facil ity Oct 31, 2018 11:38 AM NM-TOBACCO QUIT 15 YRS OR MORE [facility] Tobacco Use History This section includes a history of the smoking, or tobacco-related health factors, that were collected on or before the date of the Encounter. The data comes from the [place] facility where the Encounter took place. Date/Time Smoking Status/Tobacco Use Comment F acdaniel Oct 31, 2018 11:38 AM NM-TOBACCO QUIT 15 YRS OR MORE [facility] Jul 12, 2017 08:51 AM QUIT TOBACCO USE > 7 YEARS AGO [facility] Mar 30, 2016 08:29 AM QUIT TOBACCO USE > 7 YEARS AGO [facility] Mar 04, 2015 10:57 AM QUIT TOBACCO USE > 7 YEARS AGO [facility] Advance Directives: All historical and current Section [...] Encounter. Date/Time Encounter Note(s) Provider Source Jun 22, 2024 08:30 AM NUTRITION DIETETIC S NOTE: LOCAL TITLE: NUTRITION PROGRESS NOTE STANDARD TITLE: NUTRITION DIETETICS NOTE DATE OF NOTE: JUN 22, 2024@08:30 ENTRY DATE: JUN 22, 2024@09:01:33 AUTHOR: BRENDA PARR COSIGNER: URGENCY: STATUS: COMPLETED FOLLOW-UP NUTRITION ASSESSMENT Reason for Nutrition referral: Primary Diagnosis: Abnormal Weight Loss (R63.4) Secondary Diagnosis: Dietary Surveillance and Counseling (Z71.3) Date of Nutrition Visit: Jun Visit #: 5 Time Spent with Patient: 30 minutes Patient identified using the following two forms of ID: Date of , Patient Full Name NUTRITION ASSESSMENT: Client History Food/Drug Interactions: Atorvastatin/Grapefruit, Food drug interaction education provided Anthropometric Measurements: ==== Ht:68 in [172.7 cm] (02/21/2021 09:21) Wt:138.5 lb [62.82 kg] (06/22/2024 09:00) Weight History: Measurement DT WEIGHT LB(KG)[BMI] 06/22/2024 09:00 138.5(62.82)[21] 04/20/2024 08:53 132.2(59.96)[20] BMI: 21.1 IBW: 154 lb Biochemical Data/Medical Tests: ======= Labs: LIPID PANEL TREND Collection DT Spec CHOL HDL CHO/HDL LDL-c TRIG 04/20/2024 09:33 SERUM 118 51 2.3 55 58 12/30/2023 08:44 SERUM 159 78 H 2.0 66 76 HEMOGLOBIN A1C; BLOOD Kel[place]. Date: 04/20/24 09:33 12/30/23 08:44 Test Name Result Units Range HEMOGLOBIN A1C 5.1 4.9 % 4.0 - 5.6 BP: 149/56 (04/20/2024 08:53) Nutrition Focused Physical Findings: Appetite: Fair Other issues/concerns: None Nutrition-Focused Physical Exam ======= A selection MUST be made in The Nutrition-Focused Physical Exam Summary section No significant physical signs of nutrient excesses or deficits Nutrition-Focused Physical Exam Summary: Based on the ASPEN/AND Malnutrition Diagnosis Guide, it was determined that the [place] DOES NOT have malnutrition. Nutrition History: Food/Nutrition Related History: Met with who is concerned about his recent weight loss. He was admitted for 10 days in [facility] for hematuria. He notes he lost ~15 lbs to a low of 130 lb when he was sent home. He has gained some of the weight back. He has resumed drinking 2 bottles of ensure plus and is eating 2-3 meals per day. usual intake: B: toast/muffin coffee L: PB sandwich D: meat, veggies snacks: ensure plus x 2, PB crackers x 2 In the past 3 months, did you ever run out of food and you were not able to access more food or have the money to buy more food? No Physical Activity: walks often NUTRITION DIAGNOSIS = Nutrition Problem: ACTIVE Involuntary weight loss related to physiological causes increasing nutrient needs,(e.g., due to prolonged catabolic illness, trauma, malabsorption, infection) as evidenced by reported weight loss. INTERVENTION Update on Interventions Discussed at Previous Visit: has resumed drinking 2 bottles of ensure supplement. NUTRITION SUPPLEMENT THERAPY Commercial beverage medical food supplement therapy Food and/or Nutrient Delivery: Recommend to continue Oral Nutritional Supplement as follows: Product: Ensure Plus Dosage: 2 bottles per day Provides: 700 kcal / 26 gm of protein NUTRITION COUNSELING Nutrition counseling based on motivational interviewing strategy , Nutrition counseling based on goal setting strategy , Nutrition counseling based on self monitoring strategy NUTRITION EDUCATION Content related to nutrition education, Education on nutrition's influence on health Nutrition Education provided on the following topics: Healthy Meal Planning, Oral medical nutritional supplement Sources of Calories and Protein Printed Nutrition educational materials provided during this encounter: None Barriers to Education: None Comprehension: Good Motivation: Good COORDINATION OF NUTRITION CARE Follow-up with: PCP MONITORING Patient SMART goals from previous visit: 1. Consume 1 bottles of ensure plus per day. 2. Consume small frequent meals/snacks every 2-3 hours Some digression away from goals New Patient SMART Goals: 1. Consume 2 bottles of ensure plus per day. 2. Consume small frequent meals/snacks every 2-3 hours FOLLOW-UP PLAN 1. Follow-up visit: Apr 2. Monitor progress towards achievement of patient's SMART goals 3. Assess comprehension and motivation based on dietary changes made 4. Monitor progress toward achievement of Clinical Outcome Goals: Weight, Labs, Oral Intake CLINICAL OUTCOME GOALS: Indicator: Weight Criteria: Unintentional weight loss Goal: Stable weight by follow-up Progress: TBD at follow-up WHOLE HEALTH WHOLE HEALTH EDUCATION Whole Health Education was provided. /robe/ BRENDA PARR STAFF DIETITIAN Signed: 06/22/2024 12:09 BRENDA PARR [place] [facility]
--- OUTSIDE RECORDS SUMMARY | 2024-09-08 10:29 | XMS_ITS | Encounter Summary ---
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 Name Role Phone NEHEMIAH CUEVAS Primary [...] Policy Orellana ANA [facility] Aug 11, 2014 [id number] [phone] DHAVAL SHAQ Wagner PATIENT ANTHEM BCBS [facility] MEDICARE SUPPLEMEN ARTEMIO [facility] Aug 11, 2014 [id number] [phone] DHAVAL SHAQ Wagner PATIENT [place] MEDICARE SUPPLEMEN ARTEMIO MEDEX 2 Aug 11, 2014 [id number] [phone] DHAVAL SHAQ Wagner PATIENT [place] SUPPLEMEN ARTEMIO MEDEX 2 Aug 11, 2014 [id number] DHAVAL BernardSHAQ HAI BCBS [facility] SUPPLEMEN ARTEMIO [facility] Aug 11, 2014 [id number] [phone] ARCHAMBEA SHAQ Wagner PATIENT [facility] [place] ([place] MEDICARE SUPPLEMEN [facility] Aug 11, 2014 [id number] ARCHAMBEA SHAQ Wagner HUMANA [facility] (WNR) MEDICARE ADVANTAGE HUMAN A INSUR [facility] Jan 11, 2022 [id number] [phone] ARCHAMBEA SHAQ Wagner PATIENT USMANA [facility] (WNR) MEDICARE ADVANTAGE [facility] (WNR) Jan 11, 2022 [id number] [phone] ARCHAMBEA Bernard,SHAQ PATIENT MEDICARE (WN) MEDICARE () PART A Dec 11, 2014 PART A [id number] ARCHAMBEA Bernard,SHAQ PATIENT MEDICARE (WN) MEDICARE () PART B Aug 11, 2014 PART B [id number] [phone] ARCHAMBEA Bernard,SHAQ PATIENT MEDICARE (WN) MEDICARE () PART A Aug 11, 2014 PART A [id number] ARCHAMBEA U,SHAQ PATIENT MEDICARE (WNR) MEDICARE () PART B Aug 11, 2014 PART B [id number] ARCHAMBEA U,SHAQ PATIENT MEDICARE (WNR) MEDICARE () PART A Aug 11, 2014 PART A [id number] [phone] ARCHAMBEA Bernard,SHAQ PATIENT MEDICARE (WNR) MEDICARE () PART B Aug 11, 2014 PART B [id number] ARCHAMBEA U,SHAQ PATIENT MEDICARE (WNR) MEDICARE () PART A Aug 11, 2014 PART A [id number] ARCHAMBEA Bernard,SHAQ PATIENT MEDICARE (WNR) MEDICARE () PART B Aug 11, 2014 PART B [id number] ARCHAMBEA SHAQ Wagner [facility] (WNR) MEDICARE ADVANTAGE [facility] (WNR) May 13, 2020 [id number] SHAQ WONG PATIENT Selected Encounter This section includes the information on record at OR for the Encounter. Date/Time Encounter Type Encounter Description Reason Pro vider Source Aug 21, 2024 06:35 PM Outpatient Encounter ADMIN PAT ACTIVTIES (MASNONCT) IHE Encounter Template Text not used by OR Plan of Treatment: Future Appointments (+ 6 months) and Future Tests (+/- 45 days) The Plan of Treatment section includes future care activities for the patient from all OR treatmentfacilities. This section includes future appointments and future orders which are active, pending or scheduled. Future Appointments This section includes appointments that were scheduled to occur 6 months from the date of the Encounter, up to a maximum of 20 appointments. The data comes from all [facility] facilities. Appointment Date/Time Appointment Type Appointme nt Facility Name Sep 08, 2024 09:45 AM AMBULATORY - MEDICINE [place] [facility] [place] [facility] September 18, 2024 09:00 AM AMBULATORY - MEDICINE [facility] [place] [facility] Oct 15, 2024 08:30 AM AMBULATORY - MEDICINE [facility] Dec 08, 2024 08:00 AM AMBULATORY - MEDICINE [facility] [place] [facility] Dec 16, 2024 10:00 AM AMBULATORY - REHAB [facility]ICIN [facility] Active, Pending, and Scheduled Orders This section includes a listing of several types of active, pending, and scheduled orders, including clinic medications orders, diagnostic test orders, procedure orders and consult orders; where the start date of the order is 45 days before the date of the Encounter or 45 days after the date of theEncounter. The data comes from all [facility]. Test Date/Time Test Type Test Details Facility Name Jul 13, 2024 09:45 AM Consult Order PAIN CLINI C/NHM OUTPT Cons Slip Cover Estimator's [facility] Sep 04, 2024 05:01 PM Consult Order COMMUNITY CARE-CARDIOLOGY Cons Slip Cover Estimator's [facility] Social History: Smoking Status (Most current) [...] 04, 2023 09:00 AM [facility] Tobacco Use History This section includes a history of the smoking, or tobacco-related health factors, that were collected on or before the date of the Encounter. The data comes from the [place] facility where the Encounter took place. Date/Time Smoking Status/Tobacco Use Comment Joselyn blas Jul 04, 2023 09:00 AM VA-TOBACCO QUIT 15 YRS OR MORE [place] [facility] [place] [facility] Mar 14, 2022 03:02 PM VA-TOBACCO FORMER USER [place] [facility] [place] [facility] Mar 14, 2022 03:02 PM VA-TOBACCO QUIT 15 YRS OR MORE [place] [facility] [place] [facility] Feb 08, 2021 09:00 AM VA-TOBACCO FORMER USER [place] [facility] [place] [facility] Feb 08, 2021 09:00 AM VA-TOBACCO QUIT 15 YRS OR MORE [place] [facility] [place] [facility] October 09, 2019 01:12 PM VA-TOBACCO FORMER USER [place] [facility] [place] [facility] October 09, 2019 01:12 PM VA-TOBACCO QUIT 5 TO < 15 YRS [facility] Advance Directives: All historical and current [...] 2021 ADVANCE DIRECTIVE BEL ESCALANTE [facility] Encounter Notes: All associated encounter notes This section contains the clinical notes associated to the Encounter. Date/Time Encounter Note(s) Provider Source Aug 21, 2024 06:35 PM PHARMACY NOTE: LOCAL TITLE: V1 PHARMACY CUSTOMER CARE MEDICATION RENEWAL STANDARD TITLE: PHARMACY NOTE DATE OF NOTE: AUG 21, 2024@18:35 ENTRY DATE: AUG 21, 2024@18:35:25 AUTHOR: ROSALINDA KEN COSIGNER: URGENCY: STATUS: COMPLETED Date: Aug Division: [facility] referred by Pharmacy Call Center for medication renewal: Controlled substance Medications requested: [id number] OXYCODONE HCL 5MG/APAP 325MG TAB Defer to primary care provider To be mailed . Please review and renew if appropriate. *This note was generated by [facility]/[place] [facility] Customer Care. If you have any questions or need assistance, do not contact this author. Please refer all questions to your local, on-site pharmacy departments. /robe/ Rosalinda Ken CPhT [place], [place]/Pharmacy Customer Care Signed: 08/21/2024 18:35 Receipt Acknowledged By: 08/22/2024 09:21 /es/ NEHEMIAH CUEVAS MD PHYSICIAN 08/24/2024 08:22 /es/ JEREMY WICK RN REGISTERED NURSE for ROSALINDA LAMB I [facility]
--- OUTSIDE RECORDS SUMMARY | 2024-09-08 10:29 | XMS_ITS ---
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 Name Role Phone NEHEMIAH CUEVAS Primary [...] [facility] Aug 11, 2014 [id number] [phone] DHAVAL SHAQ Wagner PATIENT ANTHMIGUEL BCBS [facility] MEDICARE SUPPLEMEN ARTEMIO [facility] Aug 11, 2014 [id number] [phone] DHAVAL SHAQ Wagner [facility] SUPPLEMEN ARTEMIO MEDEX 2 Aug 11, 2014 [id number] DHAVAL SHAQ Wagner PATIENT [place] SUPPLEMEN ARTEMIO MEDEX 2 Aug 11, 2014 [id number] [phone] DHAVAL WagnerSHAQ HAI BCBS [facility] MEDICARE SUPPLEMEN ARTEMIO [facility] Aug 11, 2014 [id number] [phone] ARCHAMBEA SHAQ Wagner PATIENT [facility] [place] ([place]) MEDICARE SUPPLEMEN [facility] [place] [facility] Aug 11, 2014 [id number] ARCHAMBEA SHAQ Wagner [employer] [facility] (WNR) MEDICARE ADVANTAGE HUMAN A INSUR [facility] Jan 11, 2022 [id number] [phone] ARCHAMBEA SHAQ Wagner PATIENT [employer] [facility] (WNR) MEDICARE ADVANTAGE [facility] (WNR) Jan 11, 2022 [id number] [phone] ARCHAMBEA Bernard,SHAQ PATIENT MEDICARE (WN) MEDICARE () PART A Dec 11, 2014 PART A [id number] ARCHAMBEA Bernard,SHAQ PATIENT MEDICARE (WN) MEDICARE () PART B Aug 11, 2014 PART B [id number] [phone] ARCHAMBEA Bernard,SHAQ PATIENT MEDICARE (WN) MEDICARE () PART A Aug 11, 2014 PART A [id number] ARCHAMBEA U,SHAQ PATIENT MEDICARE (WNR) MEDICARE () PART B Aug 11, 2014 PART B [id number] ARCHAMBEA U,SHAQ PATIENT MEDICARE (WNR) MEDICARE () PART A Aug 11, 2014 PART A [id number] ARCHAMBEA Bernard,SHAQ PATIENT MEDICARE (WNR) MEDICARE () PART B Aug 11, 2014 PART B [id number] ARCHAMBEA U,SHAQ PATIENT MEDICARE (WNR) MEDICARE () PART A Aug 11, 2014 PART A [id number] ARCHAMBEA Bernard,SHAQ PATIENT MEDICARE (WNR) MEDICARE () PART B Aug 11, 2014 PART B [id number] ARCHAMBEA SHAQ Wagner [facility] (WNR) MEDICARE ADVANTAGE [facility] (WNR) May 13, 2020 [id number] ARCHAMBEA BernardSHAQ PATIENT Selected Encounter This section includes the information on record at ID for the Encounter. Date/Time Encounter Type Encounter Description Reason Provider Source Nov 19, 2023 08:30 AM COMPRE OPH EXAM EST PT 1/> OPTOMETRY ICD-10-CM H40.1111 Primary open-angle glaucoma, right eye, mild stage ,CRYSTAL Leon Lillian Encounter Template Text not used by VA Assessments - Encounter Diagnoses This section includes the primary and secondary diagnoses documented for the Encounter. Date/Time Primary/Secondary Diagnosis Diagnosis Name Provider Source Nov 19, 2023 08:46 AM PRIMARY Primary open-angle glaucoma, right eye, mild stage ,CRYSTAL Leon [facility] [place] [facility] Nov 19, 2023 08:46 AM SECONDARY Presbyopia CRYSTAL MARKS [facility] [place] [facility] Nov 19, 2023 08:46 AM SECONDARY Presence of intraocular lens [facility] MARKS [facility] Nov 19, 2023 08:46 AM SECONDARY Primary open-angle glaucoma, left eye, moderate stage ,[facility]STAL Leon [facility] Plan of Treatment: Future Appointments (+ 6 months) and Future Tests (+/- 45 days) The Plan of Treatment section includes future care activities for the patient from all ID treatmentfaunc health chathamities. This section includes future appointments and future [...] [facility] [place] [facility] Dec 23, 2023 07:30 AM AMBULATORY - MEDICINE ID [facility] [place] [facility] Dec 23, 2023 03:15 PM AMBULATORY - MEDICINE [facility] Jan 28, 2024 08:00 AM AMBULATORY - MEDICINE [facility] [place] [facility] Jan 30, 2024 07:30 AM AMBULATORY - MEDICINE ID [facility] [place] [facility] Mar 06, 2024 08:45 AM AMBULATORY - MEDICINE ID [facility] [place] [facility] Mar 11, 2024 08:30 AM AMBULATORY - MEDICINE [facility] [place] Mar 16, 2024 08:30 AM AMBULATORY - MEDICINE [facility] [place] [facility] Apr 07, 2024 10:00 AM AMBULATORY - MEDICINE [facility] [place] [facility] Apr 20, 2024 08:30 AM AMBULATORY - MEDICINE [facility] [place] Apr 28, 2024 11:00 AM AMBULATORY - MEDICINE ID [facility] [place] [facility] Social History: Smoking Status (Most [...] VA-TOBACCO FORMER USER ID [facility] [place] [facility] Tobacco Use History This section includes a history of the smoking, or tobacco-related health factors, that were collected on or before the date of the Encounter. The data comes from the ID facility where the Encounter took place. Date/Time Smoking Status/Tobacco Use Comment F [email or web address] Jul 04, 2023 09:00 AM VA-TOBACCO QUIT 15 YRS OR MORE [facility] [place] [facility] Mar 14, 2022 03:02 PM VA-TOBACCO FORMER USER [facility] [place] [facility] Mar 14, 2022 03:02 PM VA-TOBACCO QUIT 15 YRS OR MORE [facility] [place] [facility] Feb 08, 2021 09:00 AM VA-TOBACCO FORMER USER [facility] [place] [facility] Feb 08, 2021 09:00 AM VA-TOBACCO QUIT 15 YRS OR MORE [facility] [place] [facility] October 09, 2019 01:12 PM VA-TOBACCO FORMER USER [facility] [place] [facility] October 09, 2019 01:12 PM VA-TOBACCO QUIT 5 TO < 15 YRS [facility] [place] [facility] Advance Directives: All historical [...] DATE: NOV 19, 2023@07:44:35 AUTHOR: CRYSTAL MARKS COSIGNER: URGENCY: STATUS: COMPLETED Eye Examination for: [...] Code Description I48.91 AF - Atrial fibrillation ([facility] [id number]) Z79.01 Long-term current use of anticoagulant (SCT 911869387) R63.4 Unintentional weight loss (SCT 800810316) M47.27 Lumbosacral spondylosis with radiculopathy (SCT 333630688) R69. Solitary nodule of lung (SCT 597858780) R69. Shared care - hospice and GP ([facility] [id number]) R69. 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 Degeneration of intervertebral disc ([facility] 76982163) M54.51 LBP - Low back pain ([facility] 019465943) M25.511 Shoulder joint pain ([facility] 072845918) G25.81 Restless legs ([facility] 50068894) R69. Care by local physician ([facility] 622206136) E78.5 Hyperlipidemia ([facility] 75605569) R69. History of tobacco use ([facility] [id number]) SYSTEMIC MEDICATIONS/OCULAR MEDICATIONS: Active Outpatient Medications (including [...] with last BCVA: OD: plano 20/20 OS: +0.75-1.04i929 20/20 Add: +2.50 DVA ( )sc ( x )cc - [x]phoropter []specs []CL OD: 20/15-1 OS: 20/30-2 Entrance Testing: Pupil: PERRL (-)APD EOM: SAFE OU, (-)Pain/Diplopia CVF: FTFC OU Subjective Refraction: OD: plano 20/15-1 OS: +1.50-2.46h618 20/20 Add: +2.50 SLE: Lids/Lashes: dermatochalasis OU, [...] continued follow-up appointments -Continue Latanoprost QHS OU -Howard repeated back the plan and education. -RTC 4 months for visual imaging and IOP check 2. Pseudophakia OU -Pt ed re today's findings and the importance of UV protection -Howard repeated back the plan and education. -Monitor 3. Refractive Error and Presbyopia OU -Rx updated and ordered per pt request PALx1 -Monitor RTC 4 mos or earlier PRN (x)Appointment with coordinated visual imaging (x) [facility] 24-2 (x) RNFL OCT Glasses adjusted/repaired in [...] this VA (local) and dispensed from another ID or [facility] facility (remote) as well as inpatient [...] JLV. Allergies/ADRs (Tool #5) FACILITY ALLERGY/ADR -------- [facility] NO KNOWN ALLERGIES [facility] [place] [facility] CODEINE [facility] [place] [facility] NEURONTIN Med. Reconciliation (Tool #1) INCLUDED IN THIS LIST: Alphabetical list of active outpatient prescriptions dispensed from this ID (local) and dispensed from another ID or [facility] facility (remote) as well as inpatient orders (local pending and active), local clinic medications, locally documented non-VA medications, and local prescriptions that have or been discontinued in the past 90 days. Non-VA Meds Last Documented On: Nov 20, 2018 NOTE The display of VA prescriptions dispensed from another ID or [facility] facility (remote) is limited to active outpatient prescription entries matched to National Drug File at the originating site and may not include some items such as investigational drugs, compounds, etc. NOT INCLUDED IN THIS LIST: Medications self-entered by the patient into personal health records (i.e. HistoryFile) are NOT included in this list. Non-VA medications documented outside this ID, remote inpatient orders (regardless of status) and [...] TABLET BY MOUTH EVERY 12 HOURS Rx# [id number] Last Released: 09/16/23 Qty/Days Supply: 180/90 Rx Expiration Date: 06/20/24 Refills Remainin OUTPT DRONEDARONE 400MG TAB (Status = ) TAKE ONE TABLET BY MOUTH TWICE DAILY FOR PAROXYSMAL ATRIAL FIBRILLATION Rx# [id number] Last Released: 06/20/23 Qty/Days Supply: 180 Rx Expiration Date: 09/16/23 Refills Remainin Indication: FOR PAROXYSMAL ATRIAL FIBRILLATION OUTPT DRONEDARONE 400MG TAB (Status = Active) TAKE ONE TABLET BY MOUTH TWICE DAILY Rx# [id number] Last Released: 09/19/23 Qty/Days Supply: 180/ Rx Expiration Date: 09/17/24 Refills Remainin OUTPT FLUTICASONE PROP 50MCG 120D NASAL INHL (Status = ) INSTILL 1 SPRAY INTO EACH NOSTRIL AT BEDTIME Rx# [id number] Last Released: 11/12/22 Qty/Days Supply: 06/11 Rx Expiration Date: 11/09/23 Refills Remainin Indication: FOR NASAL IRRITATION/INFLAMMATION OUTPT LATANOPROST 0.005% OPH SOLN (Status = Active) INSTILL 1 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 Rx Expiration Date: 08/12/24 Refills Remainin Indication: FOR WIDE-ANGLE GLAUCOMA OUTPT LIDOCAINE 5% PATCH (Status = Discontinued) APPLY 1 PATCH TOPICALLY ONCE DAILY FOR NERVE PAIN (LEAVE PATCH ON FOR 12 HOURS, THEN REMOVE PATCH) Rx# [id number] Last Released: 06/08/23 Qty/Days Supply: Rx Expiration Date: 09/04/23 Refills Remainin Indication: FOR NERVE PAIN OUTPT LIDOCAINE 5% PATCH (Status = Active) APPLY 1 PATCH TOPICALLY ONCE DAILY FOR NERVE PAIN (LEAVE PATCH ON FOR 12 HOURS, THEN REMOVE PATCH) Rx# [id number] Last Released: 10/14/23 Qty/Days Supply: Rx Expiration Date: 10/11/24 Refills Remainin Indication: FOR NERVE PAIN OUTPT LOVASTATIN 20MG TAB (Status = Discontinued) TAKE ONE TABLET BY MOUTH AT BEDTIME FOR CHOLESTEROL -- AVOID GRAPEFRUIT JUICE Rx# [id number] Last Released: 07/13/23 Qty/Days Supply: 90 Rx Expiration Date: 10/10/23 Refills Remainin OUTPT LOVASTATIN 20MG TAB (Status = Active) TAKE ONE TABLET BY MOUTH AT BEDTIME FOR CHOLESTEROL -- AVOID GRAPEFRUIT JUICE Rx# [id number] Last Released: 10/14/23 Qty/Days Supply: 90 Rx Expiration Date: 10/11/24 Refills Remainin OUTPT METOPROLOL TARTRATE 25MG TAB (Status = ) TAKE ONE TABLET BY MOUTH TWICE DAILY FOR BLOOD PRESSURE/HEART Rx# [id number] Last Released: 06/22/23 Qty/Days Supply: 180 Rx Expiration Date: 09/16/23 Refills Remainin OUTPT METOPROLOL TARTRATE 25MG TAB (Status = Active) TAKE ONE-HALF TABLET BY MOUTH TWICE DAILY FOR BLOOD PRESSURE/HEART Rx# [id number] Last Released: 10/10/23 Qty/Days Supply: Rx Expiration Date: 10/08/24 Refills Remainin Indication: FOR HIGH BLOOD PRESSURE OUTPT NUTRITION SUPL ENSURE PLUS/VANILLA LIQ (Status = Active) DRINK 1 CAN BY MOUTH TWICE DAILY Rx# [id number] Last Released: 10/12/23 Qty/Days Supply: Rx Expiration Date: 04/29/24 Refills Remainin OUTPT OMEPRAZOLE 20MG EC CAP (Status = Discontinued) TAKE TWO CAPSULES BY MOUTH EVERY MORNING 30 MINUTES BEFORE BREAKFAST Rx# [id number] Last Released: 07/13/23 Qty/Days Supply: 180 Rx Expiration Date: 09/22/23 Refills Remainin OUTPT OMEPRAZOLE 20MG EC CAP (Status = Active) TAKE TWO CAPSULES BY MOUTH EVERY MORNING 30 MINUTES BEFORE BREAKFAST Rx# [id number] Last Released: 10/14/23 Qty/Days Supply: 180 Rx Expiration Date: 10/11/24 Refills Remainin OUTPT ONDANSETRON HCL 4MG TAB (Status = Active) TAKE ONE TABLET BY MOUTH ONCE DAILY NEEDED FOR VOMITING/NAUSEA Rx# [id number] Last Released: 04/01/23 Qty/Days Supply: 90 Rx Expiration Date: 03/29/24 Refills Remainin OUTPT OXYCODONE HCL 5MG/APAP 325MG TAB (Status = Discontinued) TAKE 1 TABLET BY MOUTH THREE TIMES DAILY NEEDED FOR PAIN NEXT FILL 08/30/23 Rx# [id number] Last Released: 07/31/23 Qty/Days Supply: Rx Expiration Date: 08/28/23 Refills Remainin Indication: FOR PAIN OUTPT OXYCODONE HCL 5MG/APAP 325MG TAB (Status = Discontinued) TAKE 1 TABLET BY MOUTH THREE TIMES DAILY NEEDED FOR PAIN NEXT FILL 09/27/23 Rx# [id number] Last Released: 08/28/23 Qty/Days Supply: Rx Expiration Date: 09/26/23 Refills Remainin Indication: FOR PAIN OUTPT OXYCODONE HCL 5MG/APAP 325MG TAB (Status = ) TAKE 1 TABLET BY MOUTH THREE TIMES DAILY NEEDED FOR PAIN NEXT FILL 10/25/23 Rx# [id number] Last Released: 09/25/23 Qty/Days Supply: Rx Expiration Date: 10/25/23 Refills Remainin Indication: FOR PAIN OUTPT OXYCODONE HCL 5MG/APAP 325MG TAB (Status = Active) TAKE 1 TABLET BY MOUTH THREE TIMES DAILY NEEDED NEXT FILL 11/25/23 Rx# [id number] Last Released: 10/28/23 Qty/Days Supply: Rx Expiration Date: 11/22/23 Refills Remainin Indication: FOR PAIN OUTPT ROPINIROLE HCL 0.25MG TAB (Status = ) TAKE ONE TABLET BY MOUTH DAILY Rx# [id number] Last Released: 09/03/23 Qty/Days Supply: Rx Expiration Date: 11/09/23 Refills Remainin SUPPLIES PHARMACY TERMS AND POSSIBLE PATIENT ACTIONS INPT = ID inpatient order IV = VA intravenous medication OUTPT = VA outpatient prescription PHARMACY POSSIBLE PATIENT TERMS EXPLANATION [...] more of this picked up at the ID pharmacy medication. window. A prescription which is [...] the VA. Or, it may be an oxvq-rdi-kmlppym (OTC), herbal, dietary supplements or sample medication. [...] An active prescription that is Contact your ID not scheduled to be filled yet. pharmacy if you need You should receive it before this medication now. you run out. (x) Printed Medication Reconciliation List Offered and Declined by Howard () Medication Reconciliation List Printed for Howard at Exam () Optometry HT Please Print and Mail Copy of Medication Reconciliation List () AMSA Please Print and Mail Copy of Medication Reconciliation List /es/ CRYSTAL MARKS OD CLOTH FEEDER Signed: 11/19/2023 08:48 CRYSTAL MARKS ID [facility]
== END 2024-09-08 10:17 | disposition home or self-care (01) ==
LOC: HO.HCS 09:30
PROVIDERS: PCP Internal Medicine; Visit Provider Internal Medicine Cardiovascular Disease
DX: I25.10 Atherosclerotic heart disease of native coronary artery without angina pectoris (principal); I48.92 Unspecified atrial flutter
CPT/HCPCS: 93010; 99214; G2211

== ENCOUNTER → 2024-09-08 09:29 | Outpatient (BNVA) | payer OTHER, SELFPAY | PROVIDERS: PCP Internal Medicine; Visit Provider Internal Medicine Cardiovascular Disease | DX: I25.10 Atherosclerotic heart disease of native coronary artery without angina pectoris (principal); I48.92 Unspecified atrial flutter; R00.1 Bradycardia, unspecified | CPT/HCPCS: 93005; 99212 ==

== ENCOUNTER 2024-10-13 07:27 | Outpatient (REF) | payer OTHER, SELFPAY ==
--- OUTSIDE RECORDS SUMMARY | 2024-10-13 07:30 | XMS_ITS | Continuity of Care Document ---
Author Name [facility] Organization [facility] Care Team Providers Care Teen Counselor Name Role Phone [facility] Unavailable Unavailable Problems Combined list of problems from Department of Defense and Veterans Affairs facilities. It does not include entries that were removed or entered in error. Problem Status Onset Date Problem Type Date of Resolution Comments Source AF - Atrial fibrillation Active Condition Jul 04, 2023 Entered By: NEHEMIAH LORD Comment: Dx 06/2023 Afib w/RVR [place] Estes's esophagus Active Condition Mar 04, 2015 [...] no dysplasia - repeat in 5 y [place] Care by local physician Active Condition Mar 04, 2015 Entered By: VENKATA GONZALEZ Comment: Dr Lewis at [facility]; Dr. Maher @ [facility] Chronic pain syndrome Active Condition [place] ([facility]) Degeneration of intervertebral disc Active Condition [...] REYES Comment: diffuse DDD throughout L/S 03/29 [place] History of tobacco use Active Condition Mar 04, 2015 Entered By: VENKATA GONZALEZ Comment: Quit 2007;Mar 04, 2015 Entered By: VENKATA GONZALEZ Comment: H/O Pneumothorax, L Lung ; Had Thoracostomy, etc.Mar 04, 2015 Entered By: VENKATA GONZALEZ Comment: Nodule, LLL, in FEB 24?? pending PET; METS vs. 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 to Prolonged post Pseudoarthosis Pain [place] Long-term current use of anticoagulant Active Condition [facility] (6[facility]) Lumbosacral spondylosis with radiculopathy Active Condition [facility] [place] [facility] Prostate cancer Active Condition Mar 04, 2015 Entered By: VENKATA GONZALEZ Comment: Dx via Bx JUL 25 (); 9 Sections Malig; 3 BenignMar 04, 2015 Entered By: VENKATA GONZALEZ Comment: Finished RT early FEB 24; [place] Entered By: OMER REYES Comment: see note 07/25/16- all notes sent to scan [place] Restless legs Active Condition Feb Entered By: VENKATA GONZALEZ Comment: on Ropinirole in FEB 24 [place] Screening for malignant neoplasm colon Active Condition [...] Colon/EGD Apr 2021 - Q 5 Years [place] Shared care - hospice and GP Active Condition Mar 08, 2015 Entered By: OMER REYES Comment: PCP: Dr. Maher [facility] [place] [facility] Shoulder joint pain Active Condition Mar 04, 2015 Entered By: VENKATA GONZALEZ Comment: Candidate for Replacement, R Side; Deferred; just do Inj'sOct 2014 Entered By: VENKATA GONZALEZ Comment: OA, L Shldr also (less pain than R side) [place] Solitary nodule of lung Active Condition Dec 17, 2016 Entered By: OMER REYES Comment: Ct scan 2022 Entered By: NEHEMIAH LORD [facility] Entered By: NEHEMIAH LORD Comment: last CT chest 10/2021 stable subcentimeter nodules [facility] [place] [facility] Unintentional weight loss Active Condition Nov 09, 2022 Entered By: NEHEMIAH LORD Comment: after [facility] Diagnosis: ICD-10-CM L60.0 Ingrowing nail Active Diagnosis [facility] Diagnosis: ICD-10-CM I48.91 Unspecified atrial fibrillation Active Diagnosis [place] Diagnosis: ICD-10-CM M70.62 Trochanteric bursitis, left hip Active Diagnosis [facility] [place] [facility] Diagnosis: ICD-10-CM R63.4 Abnormal weight loss Active Diagnosis [place] Diagnosis: ICD-10-CM I21.4 Non-ST elevation (NSTEMI) myocardial infarction Active Diagnosis [place] Diagnosis: ICD-10-CM M13.872 Other specified arthritis, left ankle and foot Active Diagnosis [facility] [place] [facility] Diagnosis: ICD-10-CM R06.09 Other forms of dyspnea Active Diagnosis [facility] Diagnosis: ICD-10-CM R06.00 Dyspnea, unspecified Active Diagnosis [facility] [place] [facility] Diagnosis: ICD-10-CM Z46.0 Encounter for fit/adjst of spectacles and contact lenses Active [facility] Diagnosis: ICD-10-CM H40.1111 Primary open-angle glaucoma, right eye, mild stage Active Diagnosis [facility] [place] [facility] Diagnosis: ICD-10-CM M46.1 Sacroiliitis, not elsewhere classified Active [facility] Diagnosis: ICD-10-CM M54.17 Radiculopathy, lumbosacral region Active [facility] Diagnosis: ICD-10-CM 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 Medication Details Route Status Patient Instructions Prescription Expires Prescription Number Last Dispense Date Ordering Provider Order Date Order Qty Source ACETAMINOPH EN 500MG TAB TAKE TWO TABLETS BY MOUTH THREE TIMES DAILY NEEDED ORAL ACTIVE JOSHUA KOO [place] 2018 [facility] IELD AMIODARONE HCL 200MG TAB TAKE ONE TABLET BY MOUTH ONCE DAILY ORAL ACTIVE 04/29/2025 [id number] RUBY INMAN 2023 [facility] AMIODARONE HCL 200MG TAB TAKE ONE TABLET BY MOUTH ONCE DAILY ORAL ACTIVE NEHEMIAH CISSE 2023 [facility] IELD AMMONIUM LACTATE 12% LOTION APPLY SMALL AMOUNT TOPICALL Y ONCE DAILY NEEDED FOR DRY IRRITATE D SKIN TOPICA L 10/11/2024 [id number] 5 CALISTA EVANS 2024 480 [facility] IELD APIXABAN 5MG TAB TAKE ONE TABLET BY MOUTH EVERY 12 HOURS ORAL DISCONT INUED BY PROVIDE R 06/20/2024 [id number] ORVILLE RADER 2023 180 [facility] [place] ASCORBIC ACID 500MG TAB TAKE ONE TABLET BY MOUTH ONCE DAILY FOR VITAMIN/ NUTRITIO N SUPPLEME NT WITH IRON PILLS ORAL ACTIVE 07/14/2025 [id number] 5 SENGLOIRAISAMARCALISTA M 2024 100 [place] ASPIRIN 81MG TAB,EC TAKE ONE TABLET BY MOUTH ONCE DAILY ORAL ACTIVE NEHEMIAH CISSE 2023 [place] ATORVASTATI N CA 80MG TAB TAKE ONE TABLET BY MOUTH ONCE DAILY FOR HIGH CHOLESTE ROL ORAL ACTIVE 04/21/2025 [id number] 5 NEHEMIAH CISSE M 2023 90 [place] BETAMETHASO NE DIPROPIONAT E 0.05% AUGMENTED CREAM APPLY A SMALL AMOUNT TOPICALL Y ONCE DAILY FOR ITCHING/ RASH TOPICA L ACTIVE 07/14/2025 [id number] 5 CALISTA EVANS M 2024 100 [place] BUPRENORPHI NE 300MCG FILM,BUCCAL PLACE ONE FILM BETWEEN CHEEK AND GUM UNTIL DISSOLVE D EVERY 8 HOURS BUCCAL ACTIVE 03/21/2025 [id number] 5 MILKA LEMA 2024 90 [facility] DRONEDARONE 400MG TAB TAKE ONE TABLET BY MOUTH TWICE DAILY ORAL DISCONT INUED BY CORY R 09/17/2024 [id number] 4 ORVILLE RADER 2023 180 [facility] ENSURE PLUS LIQUID VANILLA DRINK 1 CAN BY MOUTH TWICE DAILY FOR NUTRITIO NAL SUPPLEME NTATION ORAL ACTIVE 05/10/2025 [id number] 5 NEHEMIAH CISSE 2023 48 [place] ENSURE PLUS LIQUID VANILLA DRINK 1 CAN BY MOUTH TWICE DAILY ORAL DISCONT INUED 04/29/2024 [id number] 4 NEHEMIAH CISSE 2022 48 [place] FERROUS SO4 325MG TAB TAKE ONE TABLET BY MOUTH ONCE DAILY TO SUPPLEME NT IRON TO SUPPLEME NT IRON ORAL ACTIVE 04/27/2025 [id number] 5 NEHEMIAH CISSE 2023 100 [place] LATANOPROST 0.005% SOLN,OPH INSTILL 1 DROP INTO EACH EYE AT BEDTIME FOR WIDE-ANG LE GLAUCOMA OPHTHA LMIC ACTIVE 08/04/2025 [id number] 5 ,LAC EY J 2024 7.5 [facility] LATANOPROST 0.005% SOLN,OPH INSTILL 1 DROP INTO EACH EYE AT BEDTIME FOR WIDE-ANG LE GLAUCOMA OPHTHA LMIC DISCONT INUED 08/12/2024 [id number] 5 ,LAC EY J 2023 7.5 [facility] LIDOCAINE 5% PATCH APPLY 1 PATCH TOPICALL Y ONCE DAILY FOR NERVE PAIN (LEAVE PATCH ON FOR 12 HOURS, THEN REMOVE PATCH) TOPICA L ACTIVE 04/21/2025 [id number] 5 NEHEMIAH CISSE 2023 30 [place] LIDOCAINE 5% PATCH APPLY 1 PATCH TOPICALL Y ONCE DAILY FOR NERVE PAIN (LEAVE PATCH ON FOR 12 HOURS, THEN REMOVE PATCH) TOPICA L DISCONT INUED 10/11/2024 [id number] 4 NEHEMIAH CISSE 2023 30 [place] LOVASTATIN 20MG TAB TAKE ONE TABLET BY MOUTH AT BEDTIME FOR CHOLESTE ROL -- AVOID GRAPEFRU IT JUICE ORAL DISCONT INUED BY PROVIDE R 10/11/2024 [id number] 4 NEHEMIAH CISSE 2023 90 [place] LOVASTATIN 20MG TAB TAKE ONE TABLET BY MOUTH AT BEDTIME FOR CHOLESTE ROL -- AVOID GRAPEFRU IT JUICE ORAL DISCONT INUED 10/10/2023 [id number] 4 NEHEMIAH CISSE 2022 90 [place] METOPROLOL TARTRATE 25MG TAB TAKE ONE TABLET BY MOUTH TWICE DAILY FOR BLOOD PRESSURE /HEART ORAL ACTIVE 04/29/2025 [id number] RUBY INMAN AV 2023 180 [facility] [place] [facility] METOPROLOL TARTRATE 25MG TAB TAKE ONE-HALF TABLET BY MOUTH TWICE DAILY FOR BLOOD PRESSURE /HEART ORAL DISCONT INUED BY PROVIDE R 10/08/2024 [id number] NEHEMIAH CISSE 2023 90 [place] METOPROLOL TARTRATE 25MG TAB TAKE ONE TABLET BY MOUTH TWICE DAILY ORAL ACTIVE NEHEMIAH CISSE 2023 [place] NALOXONE HCL 4MG/SPRAY SOLN,SPRAY, NASAL INSTILL 1 SPRAY ONE NOSTRIL ONE TIME NEEDED FOR OPIOID OVERDOSE CALL 911 WITH ADMINIST RATION. REPEAT WITH SECOND DEVICE IF SYMPTOMS RETURN NASAL 04/20/2024 [id number] 4 Alphonso CARDONA AVID A 2023 2 [place] OMEPRAZOLE 20MG CAP,EC TAKE TWO CAPSULES BY MOUTH EVERY MORNING 30 MINUTES BEFORE BREAKFAS T ORAL DISCONT INUED 09/22/2023 [id number] 4 Alphonso CARDONA AVID A 2022 180 [place] OMEPRAZOLE 20MG CAP,EC TAKE TWO CAPSULES BY MOUTH EVERY MORNING 30 MINUTES BEFORE BREAKFAS T ORAL 10/11/2024 [id number] 5 NEHEMIAH CISSE M 2023 180 [place] ONDANSETRON HCL 4MG TAB TAKE ONE TABLET BY MOUTH ONCE DAILY NEEDED FOR VOMITING /NAUSEA ORAL ACTIVE 07/25/2025 [id number] 5 NEHEMIAH CISSE 2024 90 [place] ONDANSETRON HCL 4MG TAB TAKE ONE TABLET BY MOUTH ONCE DAILY NEEDED FOR VOMITING /NAUSEA ORAL DISCONT INUED 03/29/2024 [id number] 4 NEHEMIAH CISSE M 2022 90 [place] OXYCODONE HCL 5MG TAB TAKE ONE TABLET BY MOUTH FOUR TIMES DAILY NEEDED NEXT FILL 10/16 ORAL ACTIVE 10/18/2024 [id number] 5 MILKA LEMA 2024 120 [facility] [place] [facility] OXYCODONE HCL 5MG/ACETAMI NOPHEN 325MG TAB TAKE 1 TABLET BY MOUTH THREE TIMES DAILY NEEDED FOR PAIN NEXT FILL 10/25/24* * ORAL DISCONT INUED BY PROVIDE R 10/17/2024 [id number] 5 NEHEMIAH CISSE 2024 84 [place] OXYCODONE HCL 5MG/ACETAMI NOPHEN 325MG TAB TAKE 1 TABLET BY MOUTH THREE TIMES DAILY NEEDED FOR PAIN NEXT FILL 09/27/24* * ORAL DISCONT INUED 09/21/2024 [id number] 5 NEHEMIAH CISSE 2024 84 [place] OXYCODONE HCL 5MG/ACETAMI NOPHEN 325MG TAB TAKE 1 TABLET BY MOUTH THREE TIMES DAILY NEEDED FOR PAIN NEXT FILL 08/07/24* * ORAL DISCONT INUED (EDIT) 08/04/2024 [id number] 5 Alphonso CARDONA 2024 84 [place] OXYCODONE HCL 5MG/ACETAMI NOPHEN 325MG TAB TAKE 1 TABLET BY MOUTH THREE TIMES DAILY NEEDED FOR PAIN [NEXT FILL DATE ] ORAL DISCONT INUED 06/08/2024 [id number] NEHEMIAH CISSE 2023 84 [place] OXYCODONE HCL 5MG/ACETAMI NOPHEN 325MG TAB TAKE 1 TABLET BY MOUTH THREE TIMES DAILY NEEDED FOR PAIN [NEXT FILL DATE 05/15/24] ORAL DISCONT INUED 05/13/2024 [id number] NEHEMIAH CISSE 2023 84 [place] OXYCODONE HCL 5MG/ACETAMI NOPHEN 325MG TAB TAKE 1 TABLET BY MOUTH THREE TIMES DAILY NEEDED FOR PAIN [NEXT FILL DATE 04/17/24] ORAL DISCONT INUED 04/19/2024 [id number] NEHEMIAH CISSE 2023 84 [place] OXYCODONE HCL 5MG/ACETAMI NOPHEN 325MG TAB TAKE 1 TABLET BY MOUTH THREE TIMES DAILY NEEDED FOR PAIN NEXT FILL 02/19/24* * ORAL DISCONT INUED 02/20/2024 [id number] Alphonso CARDONA A 2023 84 [place] OXYCODONE HCL 5MG/ACETAMI NOPHEN 325MG TAB TAKE 1 TABLET BY MOUTH THREE TIMES DAILY NEEDED FOR PAIN NEXT FILL 01/22/24* * ORAL DISCONT INUED 01/21/2024 [id number] Alphonso CARDONA AVIAlphonso A 2023 84 [place] OXYCODONE HCL 5MG/ACETAMI NOPHEN 325MG TAB TAKE 1 TABLET BY MOUTH THREE TIMES DAILY NEEDED FOR PAIN NEXT FILL 09/27/23* * ORAL DISCONT INUED 09/26/2023 [id number] NEHEMIAH CISSE M 2023 84 [place] OXYCODONE HCL 5MG/ACETAMI NOPHEN 325MG TAB TAKE 1 TABLET BY MOUTH THREE TIMES DAILY NEEDED FOR PAIN NEXT FILL 08/30/23* * ORAL DISCONT INUED 08/28/2023 [id number] NEHEMIAH CISSE 2023 84 [place] OXYCODONE HCL 5MG/ACETAMI NOPHEN 325MG TAB TAKE 1 TABLET BY MOUTH EVERY 6 HOURS NEEDED FOR PAIN NEXT FILL 08/30/24* * ORAL 08/12/2024 [id number] CALISTA EVANS 2024 120 [place] OXYCODONE HCL 5MG/ACETAMI NOPHEN 325MG TAB TAKE 1 TABLET BY MOUTH THREE TIMES DAILY NEEDED FOR PAIN NEXT FILL 07/10/24* * ORAL 07/05/2024 [id number] NEHEMIAH CISSE 2024 84 [facility] IELD OXYCODONE HCL 5MG/ACETAMI NOPHEN 325MG TAB TAKE 1 TABLET BY MOUTH THREE TIMES DAILY NEEDED FOR PAIN NEXT FILL 03/18/24* * ORAL 03/19/2024 [id number] Alphonso CARDONA 2023 84 [place] OXYCODONE HCL 5MG/ACETAMI NOPHEN 325MG TAB TAKE 1 TABLET BY MOUTH THREE TIMES DAILY NEEDED NEXT FILL 12/23/23* * ORAL 12/22/2023 [id number] NEHEMIAH CISSE 2023 84 [facility] [place] [facility] [facility] OXYCODONE HCL 5MG/ACETAMI NOPHEN 325MG TAB TAKE 1 TABLET BY MOUTH THREE TIMES DAILY NEEDED NEXT FILL 11/25/23* * ORAL 11/22/2023 [id number] NEHEMIAH CISSE 2023 84 [facility] IELD OXYCODONE HCL 5MG/ACETAMI NOPHEN 325MG TAB TAKE 1 TABLET BY MOUTH THREE TIMES DAILY NEEDED FOR PAIN NEXT FILL 10/25/23* * ORAL 10/25/2023 [id number] 4 NEHEMIAH CISSE 2023 84 [place] ROPINIROLE HCL 0.25MG TAB TAKE ONE TABLET BY MOUTH DAILY ORAL ACTIVE 12/08/2024 [id number] 5 NEHEMIAH CISSE 2023 90 [place] ROPINIROLE HCL 0.25MG TAB TAKE ONE TABLET BY MOUTH DAILY ORAL DISCONT INUED 11/09/2023 [id number] 4 NEHEMIAH CISSE 2022 90 [place] ZINC OXIDE 16% PASTE,TOP APPLY SUFFICIE NT AMOUNT TOPICALL Y ONCE DAILY FOR SKIN IRRITATI ON TOPICA L ACTIVE 04/21/2025 [id number] ZAID EVANSJUANLAURANEENA Lomax 2023 60 [place] Allergies, Adverse Reactions, Alerts Combined list of allergies from Department of Defense and Veterans Affairs facilities. It does not include entries that were removed or entered in error. Substance Category Reaction Severity Reaction type Status Date Reported Comments Source CODEINE Propensity to adverse reactions to drug (finding) Low blood pressure active 5 [facility] [facility] NEURONTIN Propensity to adverse reactions to drug (finding) Depressive disorder active 8 [facility] [place] [facility] Immunizations Combined list of available immunizations from the Department of Defense and Veterans Affairs facilities. Immunization Series Date Given Administered By Site Reaction Lot Number CVX Code Drug Back Up Machine Operator Status Comments Source INFLUENZA, UNSPECIFIED FORMULATION 2023 88 complet ed HISTORICA L INFORMATI ON - SOURCE UNSPECIFI ED, [place] [facility] INFLUENZA, UNSPECIFIED FORMULATION 2022 88 complet ed HISTORICA L INFORMATI ON - SOURCE UNSPECIFI ED, [facility] [place] [facility] INFLUENZA VACCINE, QUADRIVALENT, ADJUVANTED 2021 205 complet ed [facility] ZOSTER RECOMBINANT 2 2021 187 complet ed [facility] [place] [facility] INFLUENZA VACCINE, [...] SEASONAL, INJECTABLE 2018 141 complet ed [facility] [place] Fluzone high dose , [employer] Lot [id number], , Left Deltoid [facility] PNEUMOCOCCAL CONJUGATE PCV 13 2018 133 complet ed Pfizer lot [id number] exp Right Deltoid [facility] INFLUENZA, SEASONAL, INJECTABLE 2017 141 complet ed [facility]ount [place] [facility] INFLUENZA, SEASONAL, INJECTABLE 2017 141 [facility] [address] [facility] [address] [facility] [place] [facility] INFLUENZA, SEASONAL, INJECTABLE 2016 141 complet ed [facility] INFLUENZA, SEASONAL, INJECTABLE 2016 141 complet ed Site: Left Deltoid [facility] PNEUMOCOCCAL POLYSACCHARID E PPV23 2016 33 complet ed [place] FLU,3 YRS (HISTORICAL) 2015 88 complet ed [facility] [place] [facility] PNEUMOCOCCAL CONJUGATE PCV 13 2014 133 complet ed [place] ZOSTER (HISTORICAL) 2014 121 complet ed [place] DTAP, UNSPECIFIED FORMULATION 2014 107 complet ed [facility] [place] [facility] [facility] FLU,3 YRS (HISTORICAL) 2014 88 complet ed outside [facility] FLU,3 [...] Apr 26, 2024 02:32 AM Reporting Lab: [facility] [place] [address] [address] Performing Lab: [place] [facility] [place] [address] [address] [place] RETICULOC YTES RETICULOCYT ES [#/VOLUME] IN BLOOD 0.7 0.6 - 2.0 06/22 Specimen Type: BLOOD No comment entered. Ordering Provider: JOSE REIS Report Released Date/Time: Apr 26, 2024 02:32 AM Reporting Lab: [facility] [place] [address] [address] Performing Lab: [facility] [address] [place] RETICULOC YTES RETICULOCYT ES/100 ERYTHROCYTE S IN BLOOD BY AUTOMATED COUNT 31.3 10*3/u L 30.0 - 90.0 06/22 Specimen Type: BLOOD No comment entered. Ordering Provider: JOSE REIS Report Released Date/Time: Apr 26, 2024 02:32 AM Reporting Lab: [facility] [place] [address] [address] Performing Lab: [facility] [place] [address] [address] [place] RETICULOC YTES HEMOGLOBIN [ENTITIC MASS] IN RETICULOCYT ES BY AUTOMATED COUNT 32.3 pg 27.9 - 42.0 06/22 Specimen Type: BLOOD No comment entered. Ordering Provider: JOSE REIS Report Released Date/Time: Apr 26, 2024 02:32 AM Reporting Lab: [facility] [place] [address] [address] Performing Lab: [facility] [address] [address] [place] IRON & TIBC PANEL IRON BINDING CAPACITY [MASS/VOLUM E] IN SERUM OR PLASMA 355 ug/dL 204 - 475 06/22 Specimen Type: SERUM No comment entered. Ordering Provider: JOSE REIS Report Released Date/Time: Apr 26, 2024 02:32 AM Reporting Lab: [facility] [address] [facility] [address] Performing Lab: [facility] [address] [facility] [address] [place] IRON & TIBC PANEL IRON [MASS/VOLUM E] IN SERUM OR PLASMA 63 ug/dL 40 - 160 06/22 Specimen Type: SERUM No comment entered. Ordering Provider: JOSE REIS Report Released Date/Time: Apr 26, 2024 02:32 AM Reporting Lab: [facility] [address] Performing Lab: [facility] [address] [place] IRON & TIBC PANEL IRON/IRON BINDING CAPACITY.TO ARTEMIO [MASS RATIO] IN SERUM OR PLASMA 17.7 20.0 - 50.0 06/22 L Specimen Type: SERUM No comment entered. Ordering Provider: JOSE REIS Report Released Date/Time: Apr 26, 2024 02:32 AM Reporting Lab: [facility] [address] [address] Performing Lab: [facility] [address] [place] IRON & TIBC PANEL TRANSFERRIN [MASS/VOLUM E] IN SERUM OR PLASMA 269 mg/dL 200 - 360 06/22 Specimen Type: SERUM No comment entered. Ordering Provider: JOSE REIS Report Released Date/Time: Apr 26, 2024 02:32 AM Reporting Lab: [facility] [address] [facility] [address] Performing Lab: [facility] [address] [place] CBC AND DIFF (AUTO) LEUKOCYTES [#/VOLUME] IN BLOOD BY AUTOMATED COUNT 8.68 10*3/u L 4.50 - 11.00 06/22 Specimen Type: BLOOD No comment entered. Ordering Provider: JOSE REIS Report Released Date/Time: Apr 26, 2024 02:32 AM Reporting Lab: [facility] [place] [facility] [address] [facility] [address] Performing Lab: [facility] [place] [address] [address] [place] CBC AND DIFF (AUTO) ERYTHROCYTE S [#/VOLUME] IN BLOOD BY AUTOMATED COUNT 4.60 10*6/u L 4.23 - 5.66 06/22 Specimen Type: BLOOD No comment entered. Ordering Provider: JOSE REIS Report Released Date/Time: Apr 26, 2024 02:32 AM Reporting Lab: [place] [facility] [place] [address] [address] Performing Lab: [place] [facility] [place] [address] [address] [place] CBC AND DIFF (AUTO) HEMOGLOBIN [MASS/VOLUM E] IN BLOOD 13.2 g/dL 12.8 - 17 06/22 Specimen Type: BLOOD No comment entered. Ordering Provider: JOSE REIS Report Released Date/Time: Apr 26, 2024 02:32 AM Reporting Lab: [place] [facility] [place] [address] [address] Performing Lab: [place] [facility] [place] [address] [address] [place] CBC AND DIFF (AUTO) HEMATOCRIT [VOLUME FRACTION] OF BLOOD BY AUTOMATED COUNT 40.9 39.2 - 50.4 06/22 Specimen Type: BLOOD No comment entered. Ordering Provider: JOSE REIS Report Released Date/Time: Apr 26, 2024 02:32 AM Reporting Lab: [place] [facility] [place] [address] [address] Performing Lab: [place] [facility] [place] [address] [address] [place] CBC AND DIFF (AUTO) MCV [ENTITIC VOLUME] BY AUTOMATED COUNT 88.9 fL 82 - 99 06/22 Specimen Type: BLOOD No comment entered. Ordering Provider: JOSE REIS Report Released Date/Time: Apr 26, 2024 02:32 AM Reporting Lab: [facility] [place] [address] [address] Performing Lab: [place] [facility] [place] [address] [address] [place] CBC AND DIFF (AUTO) MCHC [MASS/VOLUM E] BY AUTOMATED COUNT 32.3 g/dL 30.8 - 35.1 06/22 Specimen Type: BLOOD No comment entered. Ordering Provider: JOSE REIS Report Released Date/Time: Apr 26, 2024 02:32 AM Reporting Lab: [facility] [place] [address] [address] Performing Lab: [facility] [place] [address] [address] [place] CBC AND DIFF (AUTO) PLATELETS [#/VOLUME] IN BLOOD BY AUTOMATED COUNT 303 10*3/u L 140 - 360 06/22 Specimen Type: BLOOD No comment entered. Ordering Provider: JOSE REIS Report Released Date/Time: Apr 26, 2024 02:32 AM Reporting Lab: [facility] [place] [address] [address] Performing Lab: [facility] [place] [address] [address] [place] CBC AND DIFF (AUTO) ERYTHROCYTE DISTRIBUTIO N WIDTH [RATIO] BY AUTOMATED COUNT 14.1 12.0 - 16.0 06/22 Specimen Type: BLOOD No comment entered. Ordering Provider: JOSE REIS Report Released Date/Time: Apr 26, 2024 02:32 AM Reporting Lab: [facility] [place] [address] [address] Performing Lab: [facility] [place] [facility] [address] [facility] [address] [place] CBC AND DIFF (AUTO) MONOCYTES [#/VOLUME] IN BLOOD BY AUTOMATED COUNT 0.63 10*3/u L 0.30 - 1.10 06/22 Specimen Type: BLOOD No comment entered. Ordering Provider: JOSE REIS Report Released Date/Time: Apr 26, 2024 02:32 AM Reporting Lab: [facility] [place] [facility] [address] [facility] [address] Performing Lab: [facility] [place] [address] [address] [place] CBC AND DIFF (AUTO) MCH [ENTITIC MASS] BY AUTOMATED COUNT 28.7 pg 26.2 - 32.6 06/22 Specimen Type: BLOOD No comment entered. Ordering Provider: JOSE REIS Report Released Date/Time: Apr 26, 2024 02:32 AM Reporting Lab: [facility] [place] [address] [address] Performing Lab: [facility] [place] [address] [address] [place] CBC AND DIFF (AUTO) NEUTROPHILS /100 LEUKOCYTES IN BLOOD BY AUTOMATED COUNT 80.8 43.7 - 75.8 06/22 H Specimen Type: BLOOD No comment entered. Ordering Provider: JOSE REIS Report Released Date/Time: Apr 26, 2024 02:32 AM Reporting Lab: [facility] [place] [address] [address] Performing Lab: [place] [facility] [place] [address] [address] [place] CBC AND DIFF (AUTO) LYMPHOCYTES /100 LEUKOCYTES IN BLOOD BY AUTOMATED COUNT 9.7 14.0 - 42.3 06/22 L Specimen Type: BLOOD No comment entered. Ordering Provider: JOSE REIS Report Released Date/Time: Apr 26, 2024 02:32 AM Reporting Lab: [facility] [address] [address] Performing Lab: [place] [facility] [address] [place] CBC AND DIFF (AUTO) MONOCYTES/1 00 LEUKOCYTES IN BLOOD BY AUTOMATED COUNT 7.3 5.1 - 13.7 06/22 Specimen Type: BLOOD No comment entered. Ordering Provider: JOSE REIS Report Released Date/Time: Apr 26, 2024 02:32 AM Reporting Lab: [facility] [address] [address] Performing Lab: [facility] [address] [place] CBC AND DIFF (AUTO) EOSINOPHILS /100 LEUKOCYTES IN BLOOD BY AUTOMATED COUNT 1.4 0.4 - 6.8 06/22 Specimen Type: BLOOD No comment entered. Ordering Provider: JOSE REIS Report Released Date/Time: Apr 26, 2024 02:32 AM Reporting Lab: [facility] [address] Performing Lab: [facility] [address] [address] [place] CBC AND DIFF (AUTO) BASOPHILS/1 00 LEUKOCYTES IN BLOOD BY AUTOMATED COUNT 0.3 0.1 - 2.0 06/22 Specimen Type: BLOOD No comment entered. Ordering Provider: JOSE REIS Report Released Date/Time: Apr 26, 2024 02:32 AM Reporting Lab: [facility] [address] [address] Performing Lab: [facility] [address] [place] CBC AND DIFF (AUTO) NEUTROPHILS [#/VOLUME] IN BLOOD BY AUTOMATED COUNT 7.02 10*3/u L 2.20 - 7.60 06/22 Specimen Type: BLOOD No comment entered. Ordering Provider: JOSE REIS Report Released Date/Time: Apr 26, 2024 02:32 AM Reporting Lab: [facility] [place] [facility] [address] [facility] [address] Performing Lab: [facility] [place] [facility] [address] [facility] [address] [place] CBC AND DIFF (AUTO) LYMPHOCYTES [#/VOLUME] IN BLOOD BY AUTOMATED COUNT 0.84 10*3/u L 1.00 - 3.20 06/22 L Specimen Type: BLOOD No comment entered. Ordering Provider: JOSE REIS Report Released Date/Time: Apr 26, 2024 02:32 AM Reporting Lab: [facility] [address] [address] [place] Lab: [place] [facility] [address] [address] [place] CBC AND DIFF (AUTO) EOSINOPHILS [#/VOLUME] IN BLOOD BY AUTOMATED COUNT 0.12 10*3/u L 0.03 - 0.44 06/22 Specimen Type: BLOOD No comment entered. Ordering Provider: JOSE REIS Report Released Date/Time: Apr 26, 2024 02:32 AM Reporting Lab: [facility] [place] [address] [address] Performing Lab: [facility] [place] [address] [address] [place] CBC AND DIFF (AUTO) BASOPHILS [#/VOLUME] IN BLOOD BY AUTOMATED COUNT 0.03 10*3/u L 0.01 - 0.13 06/22 Specimen Type: BLOOD No comment entered. Ordering Provider: JOSE REIS Report Released Date/Time: Apr 26, 2024 02:32 AM Reporting Lab: [facility] [place] [address] [address] Performing Lab: [facility] [address] [address] [place] CBC AND DIFF (AUTO) IMMATURE GRANULOCYTE S/100 LEUKOCYTES IN BLOOD BY AUTOMATED COUNT 0.5 0.0 - 0.7 06/22 Specimen Type: BLOOD No comment entered. Ordering Provider: JOSE REIS Report Released Date/Time: Apr 26, 2024 02:32 AM Reporting Lab: [facility] [address] Per[place] Lab: [place] [facility] [facility] [address] [address] [place] CBC AND DIFF (AUTO) IMMATURE GRANULOCYTE S [#/VOLUME] IN BLOOD 0.04 10*3/u L 0.00 - 0.06 06/22 Specimen Type: BLOOD No comment entered. Ordering Provider: JOSE REIS Report Released Date/Time: Apr 26, 2024 02:32 AM Reporting Lab: [facility] [address] Performing Lab: [facility] [address] [place] CBC AND DIFF (AUTO) NRBC % 0.0 0.0 - 0.0 06/22 Specimen Type: BLOOD No comment entered. Ordering Provider: JOSE REIS Report Released Date/Time: Apr 26, 2024 02:32 AM Reporting Lab: [facility] [address] [address] Performing Lab: [facility] [address] [address] [place] CBC AND DIFF (AUTO) NRBC, ABS 0.00 10*3/u L 0.00 - 0.00 06/22 Specimen Type: BLOOD No comment entered. Ordering Provider: JOSE REIS Report Released Date/Time: Apr 26, 2024 02:32 AM Reporting Lab: [facility] [address] Performing Lab: [place] [address] [address] [place] LIPID PANEL FASTING CHOLESTEROL [MASS/VOLUM E] IN SERUM OR PLASMA 118 mg/dL 04/20 Specimen Type: SERUM No comment entered. Ordering Provider: JOSE REIS Report Released Date/Time: Apr 15, 2024 02:47 PM Reporting Lab: [address] [address] Performing Lab: [address] [address] [place] LIPID PANEL FASTING TRIGLYCERID E [MASS/VOLUM E] IN SERUM OR PLASMA 58 mg/dL 0 - 150 04/20 Specimen Type: SERUM No comment entered. Ordering Provider: JOSE REIS Report Released Date/Time: Apr 15, 2024 02:47 PM Reporting Lab: [address] [address] Performing Lab: [address] [address] [place] LIPID PANEL FASTING CHOLESTEROL IN LDL [MASS/VOLUM E] IN SERUM OR PLASMA BY CALCULATION 55 mg/dL 0 - 129 04/20 Specimen Type: SERUM No comment entered. Ordering Provider: JOSE REIS Report Released Date/Time: Apr 15, 2024 02:47 PM Reporting Lab: [address] [address] Performing Lab: [address] [address] [place] LIPID PANEL FASTING CHOLESTEROL .TOTAL/CHOL ESTEROL IN HDL [MASS RATIO] IN SERUM OR PLASMA 2.3 04/20 Specimen Type: SERUM No comment entered. Ordering Provider: JOSE REIS Report Released Date/Time: Apr 15, 2024 02:47 PM Reporting Lab: [address] [address] Performing Lab: [facility] [address] [facility] [address] [place] LIPID PANEL FASTING CHOLESTEROL IN HDL [MASS/VOLUM E] IN SERUM OR PLASMA 51 mg/dL 40 - 60 04/20 Specimen Type: SERUM No comment entered. Ordering Provider: JOSE REIS Report Released Date/Time: Apr 15, 2024 02:47 PM Reporting Lab: [address] [address] Performing Lab: [facility] [address] [address] [place] BASIC METABOLIC PANEL (fasting) UREA NITROGEN [MASS/VOLUM E] IN SERUM OR PLASMA 13 mg/dL 7 - 25 04/20 Specimen Type: SERUM No comment entered. Ordering Provider: JOSE REIS Report Released Date/Time: Apr 15, 2024 02:47 PM Reporting Lab: [facility] [address] [address] Performing Lab: [facility] [address] [address] [place] BASIC METABOLIC PANEL (fasting) GLUCOSE [MASS/VOLUM E] IN SERUM OR PLASMA 105 mg/dL 65 - 100 04/20 H Specimen Type: SERUM No comment entered. Ordering Provider: JOSE REIS Report Released Date/Time: Apr 15, 2024 02:47 PM Reporting Lab: [facility] [address] [address] Performing Lab: [facility] [address] [address] [place] BASIC METABOLIC PANEL (fasting) SODIUM [MOLES/VOLU ME] IN SERUM OR PLASMA 136 mmol/L 135 - 145 04/20 Specimen Type: SERUM No comment entered. Ordering Provider: JOSE REIS Report Released Date/Time: Apr 15, 2024 02:47 PM Reporting Lab: [facility] [address] [place] [address] Performing Lab: [facility] [address] [facility] [address] [place] BASIC METABOLIC PANEL (fasting) POTASSIUM [MOLES/VOLU ME] IN SERUM OR PLASMA 4.9 mmol/L 3.5 - 5.0 04/20 Specimen Type: SERUM No comment entered. Ordering Provider: JOSE REIS Report Released Date/Time: Apr 15, 2024 02:47 PM Reporting Lab: [facility] [address] [address] Performing Lab: [address] [address] [place] BASIC METABOLIC PANEL (fasting) CHLORIDE [MOLES/VOLU ME] IN SERUM OR PLASMA 101 mmol/L 100 - 110 04/20 Specimen Type: SERUM No comment entered. Ordering Provider: JOSE REIS Report Released Date/Time: Apr 15, 2024 02:47 PM Reporting Lab: [facility] [address] [address] Performing Lab: [facility] [address] [address] [place] BASIC METABOLIC PANEL (fasting) CARBON DIOXIDE, TOTAL [MOLES/VOLU ME] IN SERUM OR PLASMA 25 meq/L 20 - 30 04/20 Specimen Type: SERUM No comment entered. Ordering Provider: JOSE REIS Report Released Date/Time: Apr 15, 2024 02:47 PM Reporting Lab: [facility] [address] [address] Performing Lab: [address] [address] [place] BASIC METABOLIC PANEL (fasting) CREATININE [MASS/VOLUM E] IN SERUM OR PLASMA 1.04 mg/dL 0.50 - 1.40 04/20 Specimen Type: SERUM No comment entered. Ordering Provider: JOSE REIS Report Released Date/Time: Apr 15, 2024 02:47 PM Reporting Lab: [address] [address] Performing Lab: [address] [address] [place] BASIC METABOLIC PANEL (fasting) GLOMERULAR FILTRATION RATE/1.73 SQ M.PREDICTED [VOLUME RATE/AREA] IN SERUM, PLASMA OR BLOOD BY CREATININE- BASED FORMULA (CKD-EPI 2020) 75 mL/min 60 04/20 Specimen Type: SERUM No comment entered. Ordering Provider: JOSE REIS Report Released Date/Time: Apr 15, 2024 02:47 PM Reporting Lab: [facility] [address] [address] Performing Lab: [address] [address] [place] HEMOGLOBI N A1C PANEL HEMOGLOBIN [...] Apr 15, 2024 02:47 PM Reporting Lab: [address] [address] Performing Lab: [address] [address] [place] LIVER FUNCTION PROTEIN [MASS/VOLUM E] IN SERUM OR PLASMA 6.6 g/dL 6.0 - 8.3 04/20 Specimen Type: SERUM No comment entered. Ordering Provider: JOSE REIS Report Released Date/Time: Apr 15, 2024 02:47 PM Reporting Lab: [facility] [address] [facility] [address] Performing Lab: [facility] [address] [facility] [address] [place] LIVER FUNCTION ALBUMIN [MASS/VOLUM E] IN SERUM OR PLASMA 3.8 g/dL 3.5 - 5.0 04/20 Specimen Type: SERUM No comment entered. Ordering Provider: JOSE REIS Report Released Date/Time: Apr 15, 2024 02:47 PM Reporting Lab: [facility] [address] [address] Performing Lab: [facility]CR[facility]ITALN [facility] [address] [facility] [place] LIVER FUNCTION ALKALINE PHOSPHATASE [ENZYMATIC ACTIVITY/VO LUME] IN SERUM OR PLASMA 111 U/L 40 - 150 04/20 Specimen Type: SERUM No comment entered. Ordering Provider: JOSE REIS Report Released Date/Time: Apr 15, 2024 02:47 PM Reporting Lab: [facility] [address] Performing Lab: [facility] [address] [place] LIVER FUNCTION ASPARTATE AMINOTRANSF ERASE [ENZYMATIC ACTIVITY/VO LUME] IN SERUM OR PLASMA 18 U/L 5 - 34 04/20 Specimen Type: SERUM No comment entered. Ordering Provider: JOSE REIS Report Released Date/Time: Apr 15, 2024 02:47 PM Reporting Lab: [facility]ITALUSEUN[facility] [address] [facility] [address] Performing Lab: [facility]IACR[facility]PITALN [facility] [address] [place] LIVER FUNCTION ALANINE AMINOTRANSF ERASE [ENZYMATIC ACTIVITY/VO LUME] IN SERUM OR PLASMA 34 U/L 04/20 Specimen Type: SERUM No comment entered. Ordering Provider: JOSE REIS Report Released Date/Time: Apr 15, 2024 02:47 PM Reporting Lab: [facility] [address] [address] Performing Lab: [facility] [address] [address] [place] LIVER FUNCTION BILIRUBIN.T OTAL [MASS/VOLUM E] IN SERUM OR PLASMA 0.3 mg/dL 0.2 - 1.2 04/20 Specimen Type: SERUM No comment entered. Ordering Provider: JOSE REIS Report Released Date/Time: Apr 15, 2024 02:47 PM Reporting Lab: [place] [facility] [facility] [facility] [address] [address] [place] Lab: [place] [facility] [facility] [facility] [address] [address] [place] TSH THYROTROPIN [UNITS/VOLU ME] IN SERUM OR PLASMA 2.13 u[IU]/ mL 0.35 - 5.00 04/20 Specimen Type: SERUM No comment entered. Ordering Provider: JOSE REIS Report Released Date/Time: Apr 15, 2024 02:47 PM Reporting Lab: [place] [facility] [place] [address] [address] Performing Lab: [facility] [address] [address] [place] CBC AND DIFF (AUTO) LEUKOCYTES [#/VOLUME] IN BLOOD BY AUTOMATED COUNT 9.20 10*3/u L 4.50 - 11.00 04/20 Specimen Type: BLOOD No comment entered. Ordering Provider: JOSE REIS Report Released Date/Time: Apr 15, 2024 02:47 PM Reporting Lab: [place] [facility] [place] [address] [address] Performing Lab: [facility] [address] [address] [place] CBC AND DIFF (AUTO) ERYTHROCYTE S [#/VOLUME] IN BLOOD BY AUTOMATED COUNT 3.75 10*6/u L 4.23 - 5.66 04/20 L Specimen Type: BLOOD No comment entered. Ordering Provider: JOSE REIS Report Released Date/Time: Apr 15, 2024 02:47 PM Reporting Lab: [facility] [address] [address] Performing Lab: [facility]IACR[facility]ULL[facility]OSPITALN [facility] [address] [place] CBC AND DIFF (AUTO) HEMOGLOBIN [MASS/VOLUM E] IN BLOOD 10.7 g/dL 12.8 - 17 04/20 L Specimen Type: BLOOD No comment entered. Ordering Provider: JOSE REIS Report Released Date/Time: Apr 15, 2024 02:47 PM Reporting Lab: [facility]CR[facility]ITALN [address] [address] Performing Lab: [facility]CR[facility]ITALN [facility] [address] [place] CBC AND DIFF (AUTO) HEMATOCRIT [VOLUME FRACTION] OF BLOOD BY AUTOMATED COUNT 32.5 39.2 - 50.4 04/20 L Specimen Type: BLOOD No comment entered. Ordering Provider: JOSE REIS Report Released Date/Time: Apr 15, 2024 02:47 PM Reporting Lab: [facility]CR[facility]ITALN [address] [address] Performing Lab: [facility]TR[facility] [address] [address] [place] CBC AND DIFF (AUTO) MCV [ENTITIC VOLUME] BY AUTOMATED COUNT 86.7 fL 82 - 99 04/20 Specimen Type: BLOOD No comment entered. Ordering Provider: JOSE REIS Report Released Date/Time: Apr 15, 2024 02:47 PM Reporting Lab: [facility]CR[facility]ITALN [address] [address] Performing Lab: [facility]IACR[facility]OSPITALN [facility] [address] [place] CBC AND DIFF (AUTO) MCHC [MASS/VOLUM E] BY AUTOMATED COUNT 32.9 g/dL 30.8 - 35.1 04/20 Specimen Type: BLOOD No comment entered. Ordering Provider: JOSE REIS Report Released Date/Time: Apr 15, 2024 02:47 PM Reporting Lab: [place] [facility] [place] [address] [address] Per[place] Lab: [place] [facility] [address] [address] [place] CBC AND DIFF (AUTO) PLATELETS [#/VOLUME] IN BLOOD BY AUTOMATED COUNT 622 10*3/u L 140 - 360 04/20 H Specimen Type: BLOOD No comment entered. Ordering Provider: JOSE REIS Report Released Date/Time: Apr 15, 2024 02:47 PM Reporting Lab: [facility] [place] [address] [address] Performing Lab: [facility] [address] [address] [place] CBC AND DIFF (AUTO) ERYTHROCYTE DISTRIBUTIO N WIDTH [RATIO] BY AUTOMATED COUNT 12.3 12.0 - 16.0 04/20 Specimen Type: BLOOD No comment entered. Ordering Provider: JOSE REIS Report Released Date/Time: Apr 15, 2024 02:47 PM Reporting Lab: [place] [facility] [address] [address] Performing Lab: [place] [facility] [address] [address] [place] CBC AND DIFF (AUTO) MONOCYTES [#/VOLUME] IN BLOOD BY AUTOMATED COUNT 0.71 10*3/u L 0.30 - 1.10 04/20 Specimen Type: BLOOD No comment entered. Ordering Provider: JOSE REIS Report Released Date/Time: Apr 15, 2024 02:47 PM Reporting Lab: [place] [facility] [facility] [address] [facility] [address] Per[place] Lab: [place] [facility] [facility] [address] [facility] [address] [place] CBC AND DIFF (AUTO) MCH [ENTITIC MASS] BY AUTOMATED COUNT 28.5 pg 26.2 - 32.6 04/20 Specimen Type: BLOOD No comment entered. Ordering Provider: JOSE REIS Report Released Date/Time: Apr 15, 2024 02:47 PM Reporting Lab: [facility] [address] [address] Performing Lab: [place] [facility] [address] [address] [place] CBC AND DIFF (AUTO) NEUTROPHILS /100 LEUKOCYTES IN BLOOD BY AUTOMATED COUNT 72.7 43.7 - 75.8 04/20 Specimen Type: BLOOD No comment entered. Ordering Provider: JOSE REIS Report Released Date/Time: Apr 15, 2024 02:47 PM Reporting Lab: [place] [facility] [address] [address] Performing Lab: [facility] [address] [address] [place] CBC AND DIFF (AUTO) LYMPHOCYTES /100 LEUKOCYTES IN BLOOD BY AUTOMATED COUNT 9.6 14.0 - 42.3 04/20 L Specimen Type: BLOOD No comment entered. Ordering Provider: JOSE REIS Report Released Date/Time: Apr 15, 2024 02:47 PM Reporting Lab: [place] [facility] [place] [address] [address] Performing Lab: [place] [facility] [address] [address] [place] CBC AND DIFF (AUTO) MONOCYTES/1 00 LEUKOCYTES IN BLOOD BY AUTOMATED COUNT 7.7 5.1 - 13.7 04/20 Specimen Type: BLOOD No comment entered. Ordering Provider: JOSE REIS Report Released Date/Time: Apr 15, 2024 02:47 PM Reporting Lab: [facility] [address] [address] Performing Lab: [place] [facility] [facility] [address] [place] CBC AND DIFF (AUTO) EOSINOPHILS /100 LEUKOCYTES IN BLOOD BY AUTOMATED COUNT 9.1 0.4 - 6.8 04/20 H Specimen Type: BLOOD No comment entered. Ordering Provider: JOSE REIS Report Released Date/Time: Apr 15, 2024 02:47 PM Reporting Lab: [facility]CR[facility]TRN [address] [address] Performing Lab: [facility] TRN [address] [address] [place] CBC AND DIFF (AUTO) BASOPHILS/1 00 LEUKOCYTES IN BLOOD BY AUTOMATED COUNT 0.4 0.1 - 2.0 04/20 Specimen Type: BLOOD No comment entered. Ordering Provider: JOSE REIS Report Released Date/Time: Apr 15, 2024 02:47 PM Reporting Lab: [facility] [address] [address] Performing Lab: [facility] [address] [place] CBC AND DIFF (AUTO) NEUTROPHILS [#/VOLUME] IN BLOOD BY AUTOMATED COUNT 6.68 10*3/u L 2.20 - 7.60 04/20 Specimen Type: BLOOD No comment entered. Ordering Provider: JOSE REIS Report Released Date/Time: Apr 15, 2024 02:47 PM Reporting Lab: [facility] [address] Performing Lab: [facility] [address] [place] CBC AND DIFF (AUTO) LYMPHOCYTES [#/VOLUME] IN BLOOD BY AUTOMATED COUNT 0.88 10*3/u L 1.00 - 3.20 04/20 L Specimen Type: BLOOD No comment entered. Ordering Provider: JOSE REIS Report Released Date/Time: Apr 15, 2024 02:47 PM Reporting Lab: [facility] [place] [address] [address] Performing Lab: [facility] [address] [address] [place] CBC AND DIFF (AUTO) EOSINOPHILS [#/VOLUME] IN BLOOD BY AUTOMATED COUNT 0.84 10*3/u L 0.03 - 0.44 04/20 H Specimen Type: BLOOD No comment entered. Ordering Provider: JOSE REIS Report Released Date/Time: Apr 15, 2024 02:47 PM Reporting Lab: [facility] [address] [address] Performing Lab: [place] [facility] [facility] [facility] [address] [address] [place] CBC AND DIFF (AUTO) BASOPHILS [#/VOLUME] IN BLOOD BY AUTOMATED COUNT 0.04 10*3/u L 0.01 - 0.13 04/20 Specimen Type: BLOOD No comment entered. Ordering Provider: JOSE REIS Report Released Date/Time: Apr 15, 2024 02:47 PM Reporting Lab: [facility] [address] [address] Performing Lab: [facility] [place] [address] [address] [place] CBC AND DIFF (AUTO) IMMATURE GRANULOCYTE S/100 LEUKOCYTES IN BLOOD BY AUTOMATED COUNT 0.5 0.0 - 0.7 04/20 Specimen Type: BLOOD No comment entered. Ordering Provider: JOSE REIS Report Released Date/Time: Apr 15, 2024 02:47 PM Reporting Lab: [facility] [address] [address] Performing Lab: [facility] [address] [address] [place] CBC AND DIFF (AUTO) IMMATURE GRANULOCYTE S [#/VOLUME] IN BLOOD 0.05 10*3/u L 0.00 - 0.06 04/20 Specimen Type: BLOOD No comment entered. Ordering Provider: JOSE REIS Report Released Date/Time: Apr 15, 2024 02:47 PM Reporting Lab: [address] [address] Performing Lab: [address] [address] [place] CBC AND DIFF (AUTO) NRBC % 0.0 0.0 - 0.0 04/20 Specimen Type: BLOOD No comment entered. Ordering Provider: JOSE REIS Report Released Date/Time: Apr 15, 2024 02:47 PM Reporting Lab: [address] [address] Performing Lab: [address] [address] [place] CBC AND DIFF (AUTO) NRBC, ABS 0.00 10*3/u L 0.00 - 0.00 04/20 Specimen Type: BLOOD No comment entered. Ordering Provider: JOSE REIS Report Released Date/Time: Apr 15, 2024 02:47 PM Reporting Lab: [address] [address] Performing Lab: [address] [address] [place] Vital Signs Combined list of inpatient and outpatient Vital Signs from [employer] and [employer], ranging from 12 months to all on record, depending upon the facility. Vital Sign Value Date Comments Source SYSTOLIC BLOOD PRESSURE 151 07/14/19 25 08:52:26 [facility] DIASTOLIC BLOOD PRESSURE 80 025 08:52:26 [facility] PULSE OXIMETRY 97 07/13/2024 08:52:26 [facility] WEIGHT 135 07/13/2024 08:52:26 [facility] BMI 21 kg/m2 07/13/2024 08:52:26 [facility] PULSE 54 07/13/2024 08:52:26 [facility] SYSTOLIC BLOOD PRESSURE 155 07/03/19 08:45:16 [facility] DIASTOLIC BLOOD PRESSURE 66 025 08:45:16 [facility] [place] [facility] PULSE OXIMETRY 97 07/03/2024 08:45:16 [facility] [...] kg/m2 06/22/2024 09:00:02 [facility] [place] [facility] SYSTOLIC BLOOD PRESSURE 149 04/20/20 08:53:25 [facility] DIASTOLIC BLOOD PRESSURE 56 08:53:25 [facility] PULSE OXIMETRY 99 04/20/2024 08:53:25 [facility] WEIGHT 132.2 04/20/2024 08:53:25 [facility] BMI 20 kg/m2 04/20/2024 08:53:25 [facility] TEMPERATURE 97.3 04/20/2024 08:53:25 [facility] PULSE 48 04/20/2024 08:53:25 [facility] SYSTOLIC BLOOD PRESSURE 120 01/30/20 07:31:46 [facility] DIASTOLIC BLOOD PRESSURE 70 024 07:31:46 [facility] PAIN 7 01/30/2024 07:31:46 [facility] [place] HCS Encounters Combined list of: 1) Encounters from Department of Veterans Affairs facilities going backup to the last 18 months, not all VA inpatient encounters are included; 2) Encounters from the Department of Defense facilities going backup to 280 months. Location Location Details Encounter Type Encounter Number Reason For Visit Attending Provider ADM Date DC Date Status Disposition Source [facility] Outpatient Encounter [id number] 04/29 [facility] Outpatient [facility]counter [id number] 04/29 [facility] Outpatient [facility]counter [id number] 05/07 [facility] Outpatient Encounter [id number] 05/10 [facility] OFF[facility] O/P EST LOW 20 MIN [id number] Diagnos is: ICD-10- CM L60.0 WES Solis F 05/22 [place] [facility] Outpatient Encounter [id number] 05/22 [facility] Out[facility]counter [id number] 05/24 [facility] Out[facility]counter [id number] 05/24 [facility] Out[facility]counter [id number] 05/28 [facility] Out[facility]counter [id number] 06/05 [facility] Out[facility]counter [id number] 06/15 [facility] Out[facility]counter [id number] 06/15 [facility] Out[facility]counter [id number] 06/17 [facility] Out[facility]counter [id number] 06/18 [facility] Outpatient Encounter [id number] 06/18 [facility] (631[facility]) MTMS BY PHARM INSPECTOR FINISHING 15 MIN [id number] Diagnos is: ICD-10- CM I48.20 Chronic atrial fibrill ation, unspeci fied YUVAL DURAN 06/19 [facility] (89[facility] Out[facility] Encounter [id number] 06/19 [facility] (6[facility]) MTMS BY PHARM INSPECTOR FINISHING 15 MIN [id number] [id number] Diagnos is: ICD-10- CM Z79.01 alf (curren t) use of anticoa gulants YUVAL DURAN 06/21 [facility] (631GE) [place] MED NUTRITION INDIV SUBSEQ [id number] Diagnos is: ICD-10- CM R63.4 Abnorma l weight loss DANIELLE PARR P 06/24 [place] [facility] Outpatient Encounter [id number] 06/29 [facility] Out[facility]counter [id number] 06/30 [facility] Outpatient Encounter [id number] 07/03 [facility] Outpatient Encounter [id number] 07/04 [facility] OFF[facility] O/P EST HI 40 MIN [id number] [id number] Diagnos is: ICD-10- CM I48.91 Unspeci fied atrial fibrill ation KRYSTLE VEE,OG ETIENNE M 07/04 [place] [facility] Outpatient Encounter [id number] 07/05 [facility] Outpatient Encounter [id number] 07/16 [facility] OFFICE O/P EST HI 40 MIN [id number] Diagnos is: ICD-10- CM M54.17 Radicul opathy, lumbosa cral region BERNABE PRIETO THI 07/16 [facility] Out[facility] Encounter [id number] 07/16 [facility] (89[facility] MTMS BY PHARM EST 15 MIN [id number] [id number] Diagnos is: ICD-10- CM I48.91 Unspeci fied atrial fibrill ation CHUY ELKINS 07/22 [facility] [place]6[facility] Outpatient Encounter [id number] 07/28 [facility] Outpatient Encounter [id number] 07/31 [facility] Outpatient Encounter [id number] 08/06 [facility] OFFICE O/P EST MOD 30 MIN [id number] Diagnos is: ICD-10- CM M46.1 Sacroil iitis, not elsewhe re classif ied Alphonso COHEN 08/11 [facility] Out[facility] Encounter [id number] 08/12 [facility] Out[facility] Encounter [id number] 08/25 [facility] Out[facility] Encounter [id number] 08/29 [facility] Outpatient Encounter [id number] 09/10 [facility] Out[facility] Encounter [id number] 09/12 [facility] Out[facility]counter [id number] 09/16 [facility] Out[facility] Encounter [id number] 09/23 [facility] OFFICE O/P EST HI 40 MIN [id number] Diagnos is: ICD-10- CM M46.1 Sacroil iitis, not elsewhe re classif ied BERNABE PRIETO 10/01 [facility] Outpatient Encounter [id number] 10/01 [facility] OFF[facility] O/P EST SF 10 MIN [id number] Diagnos is: ICD-10- CM I48.91 Unspeci fied atrial fibrill ation JUAN QUINONEZ 10/07 [place] [facility] Outpatient Encounter [id number] 10/10 [facility] Outpatient Encounter [id number] 10/20 [facility] O/P EST MOD 30 MIN [id number] [id number] Diagnos is: ICD-10- CM L60.0 Ingrowi WES Nichole 10/22 [place] [facility] Outpatient Encounter [id number] 10/28 [facility] Out[facility] Encounter [id number] 10/28 [facility] COMPRE OPH EXAM EST PT 1/ [id number] [id number] Diagnos is: ICD-10- CM H40.111 1 Primary open-an gle glaucom a, right eye, mild stage CINTHYA Y Carolyn 11/18 [facility] FIT SPECTACLES MULTIFOCAL [id number] [id number] Diagnos is: ICD-10- CM Z46.0 Encount er for fit/adj st of spectac les and contact lenses CINTHYA 11/18 [facility] Out[facility] Encounter [id number] 11/21 [facility] Out[facility] Encounter [id number] 12/04 [facility] Out[facility]counter [id number] 12/05 [facility] Out[facility]counter [id number] 12/07 [facility] Out[facility] Encounter [id number] 12/19 [facility] EVALUATION OF WHEEZING [id number] Diagnos is: ICD-10- CM R06.00 Dyspnea , unspeci fied JARMOLOWIC Z,CASANDRA 12/22 [facility] Out[facility] Encounter [id number] Lillian MOSQUEDA MD 12/22 [facility] Out[facility] Encounter [id number] 12/22 [facility] PULM FUNCTION TEST BY GAS [id number] [id number] Diagnos is: ICD-10- CM R06.09 Other forms of dyspnea Lillian MOSQUEDA MD 12/22 [facility] Outpatient Encounter [id number] 12/29 [facility] Out[facility] Encounter [id number] 01/05 [facility] Outpatient Encounter [id number] 01/13 [facility] Out[facility] Encounter [id number] 01/19 [facility] Out[facility] Encounter [id number] 01/21 [facility] Outpatient [facility]counter [id number] 01/22 [facility] Outpatient Encounter [id number] 01/27 [facility] OFFICE O/P EST MOD 30 MIN [id number] Diagnos is: ICD-10- CM M13.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 Alphonso COHEN 01/29 [facility] Out[facility] Encounter [id number] 01/29 [facility] Out[facility]counter [id number] 02/16 [facility] Outpatient Encounter [id number] 03/06 [facility] OFFICE O/P EST LOW 20 MIN [id number] Diagnos is: ICD-10- CM L60.0 Ingrowi ng WES Watres ES F 03/11 [facility] [facility] Out[facility] Encounter [id number] 03/13 [facility] Out[facility]counter [id number] 03/16 [facility] Out[facility] Encounter [id number] 03/16 [facility] Out[facility]counter [id number] 03/18 [facility] Out[facility] Encounter [id number] 03/20 [facility] Out[facility]counter [id number] 03/20 [facility] Outpatient Encounter [id number] 03/31 [facility] Out[facility] Encounter [id number] 04/02 [facility] Out[facility] Encounter [id number] 04/07 [facility] Outpatient [facility]counter [id number] 04/13 [facility] Outpatient [facility]counter [id number]/13 [facility] Out[facility]counter [id number] 1[facility]04/13 [facility] Out[facility] Encounter [id number] 1.04/13 [facility] Out[facility] Encounter [id number] 1.04/16 [facility] Out[facility] Encounter [id number] 1.04/16 [facility] Out[facility] Encounter [id number] 1.04/16 [facility] OFFICE O/P EST HI 40 MIN [id number] Diagnos is: ICD-10- CM I21.4 Non-ST elevati on (NSTEMI ) myocard ial infarct ion JUAN QUINONEZ 04/20 [place] [facility] Out[facility] Encounter [id number] 04/20 [facility] Out[facility]counter [id number] 04/26 [facility] Out[facility] Encounter [id number] 05/04 [facility] Out[facility]counter [id number] 05/08 [facility] Out[facility]counter [id number] 05/25 [facility] Out[facility]counter [id number] 06/03 [facility] Outpatient Encounter [id number]/04 [facility] MED NUTRITION INDIV SUBSEQ [id number] Diagnos is: ICD-10- CM R63.4 Abnorma l weight loss DANIELLE PARR 06/22 [facility] [facility] Out[facility] Encounter [id number] 06/23 [facility] Outpatient Encounter [id number] 06/30 [facility] OFFICE O/P EST MOD 30 MIN [id number] Diagnos is: ICD-10- CM M70.62 Trochan teric bursiti s, left hip COHENAlphonso L 07/03 [facility] Out[facility] Encounter [id number] 07/03 [facility] [place] OFFICE O/P EST MOD 30 MIN [id number] [id number] Diagnos is: ICD-10- CM I48.91 Unspeci fied atrial fibrill ation SENDUKEJamia CANDELARIOBERTHA M 07/13 [place] [facility] Outpatient Encounter [id number] 07/13 [facility]P EST LOW 20 MIN [id number] [id number] Diagnos is: ICD-10- CM L60.0 Ingrowi ng WES Waters F 07/22 [place] [facility] Outpatient Encounter [id number] 07/24 [facility] Out[facility] Encounter [id number] 07/24 [facility] Out[facility] Encounter [id number] 07/31 [facility] Out[facility]counter [id number] 08/17 [facility] Out[facility]counter [id number] 08/21 [facility] Out[facility]counter [id number] 08/22 [facility] Out[facility]counter [id number] 08/26 [facility] Out[facility] Encounter [id number] 09/02 [facility] Out[facility]counter [id number] 09/08 [facility] Outpatient Encounter [id number] 09/10 [facility] Outpatient Encounter [id number] 09/17 [facility] Outpatient Encounter [id number] 09/17 [facility] Outpatient Encounter [id number] 09/17 [facility] Outpatient [facility]counter [id number] 09/18 [facility] Outpatient Encounter [id number] 09/18 [facility] Out[facility]counter [id number] 10/08 [facility] Out[facility]counter [id number] 10/12 [facility] Social History Combined list of available smoking, tobacco, and other social history from Department of Defense and Veterans Affairs facilities. Social History Type Response Date Comment Sourc e Tobacco smoking status NHIS VA-TOBACCO USE FORMER CIGARETTES 07/13/2024 [facility] History of tobacco use VA-TOBACCO NEVER USED OTHER TYPE 07/13/2024 [facility] History of tobacco use VA-TOBACCO FORMER USER 07/04/2023 [facility] History of tobacco use VA-TOBACCO FORMER USER 03/14/2022 [facility] History of tobacco use VA-TOBACCO FORMER USER 02/08/2021 [facility] History of tobacco use VA-TOBACCO QUIT 5 TO < 15 YRS 10/09/2019 [facility] History of tobacco use VA-TOBACCO QUIT 15 YRS OR MORE 10/31/2018 [facility] History of tobacco use QUIT TOBACCO USE > 7 YEARS AGO 07/12/2017 [facility] History of tobacco use QUIT TOBACCO USE > 7 YEARS AGO 03/30/2016 [facility] History of tobacco use QUIT TOBACCO USE > 7 YEARS AGO 03/04/2015 [facility] Plan of Care List of future care activities from Department of Veterans Affairs facilities. Additional future care activities may be listed in the Assessment and Plan section. Date/Time Care Activity Care Activity Detail Facili ty 10/15/2024 AMBULATORY - MEDICINE AMBULATORY - MEDICI NE [facility] Advance Directives List of completed, amended, or rescinded Advance Directives on record at Department of Veterans Affairs facilities. An actual copy of the Directive is not included. Date Advance Directive Provider Source 02/21/2021 ADVANCE DIRECTIVE EBL ESCALANTE
[2024-10-13 08:34] LABS: Prostate Specific Antigen < 0.10 ng/mL (<0.05-4.0)
== END 2024-10-13 07:28 | disposition home or self-care (01) ==
LOC: HO.LAB 07:27
PROVIDERS: PCP Internal Medicine; Visit Provider Urology
DX: N30.40 Irradiation cystitis without hematuria (principal); C61 Malignant neoplasm of prostate; Z12.5 Encounter for screening for malignant neoplasm of prostate
CPT/HCPCS: 36415; 84153

== ENCOUNTER 2024-10-30 08:15 | Outpatient (AMB) | payer OTHER, SELFPAY ==
--- OUTSIDE RECORDS SUMMARY | 2024-10-30 03:19 | XMS_ITS | Continuity of Care Document ---
Author Name [facility] Organization [facility] Care Team Providers Care Oxygen Equipment Aide Name Role Phone [facility] Unavailable Unavailable Problems Combined list of problems from Department of Defense and Veterans Affairs facilities. It does not include entries that were removed or entered in error. Problem Status Onset Date Problem Type Date of Resolution Comments Source AF - Atrial fibrillation Active Condition Jul 04, 2023 Entered By: NEHEMIAH LORD Comment: Dx 06/2023 Afib w/RVR [place] Estes's esophagus Active Condition Mar 04, 2015 [...] no dysplasia - repeat in 5 y D[place] Care by local physician Active Condition Mar 04, 2015 Entered By: VENKATA GONZLAEZ Comment: Dr Lewis at [facility] [place]; Dr. Maher @ [facility] Chronic pain syndrome Active Condition [place] ([facility]) Degeneration of intervertebral disc Active Condition [...] REYES Comment: diffuse DDD throughout L/S 03/29 [place] History of tobacco use Active Condition Mar 04, 2015 Entered By: VENKATA GONZALEZ Comment: Quit 2007;Mar 04, 2015 Entered By: VENKATA GONZALEZ Comment: H/O Pneumothorax, L Lung ; Had Thoracostomy, etc.Mar 04, 2015 Entered By: VENKATA GONZALEZ Comment: Nodule, LLL, in FEB 24?? pending PET; METS vs. 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 to Prolonged post Pseudoarthosis Pain [place] Long-term current use of anticoagulant Active Condition [facility] ([facility]) Lumbosacral spondylosis with radiculopathy Active Condition [facility] Prostate cancer Active Condition Mar 04, 2015 Entered By: VENKATA GONZALEZ Comment: Dx via Bx JUL 25 (); 9 Sections Malig; 3 BenignMar 04, 2015 Entered By: VENKATA GONZALEZ Comment: Finished RT early FEB 24; [place] Entered By: OMER REYES Comment: see note 07/25/16- all notes sent to scan [place] Restless legs Active Condition Feb Entered By: VENKATA GONZALEZ Comment: on Ropinirole in FEB 24 [place] Screening for malignant neoplasm colon Active Condition [...] Colon/EGD Apr 2021 - Q 5 Years [place] Shared care - hospice and GP Active Condition Mar 08, 2015 Entered By: OMER REYES Comment: PCP: Dr. Maher [facility] Shoulder joint pain Active Condition Mar 04, 2015 Entered By: VENKATA GONZALEZ Comment: Candidate for Replacement, R Side; Deferred; just do Inj'sOct 2014 Entered By: VENKATA GONZALEZ Comment: OA, L Shldr also (less pain than R side) [place] Solitary nodule of lung Active Condition Dec 17, 2016 Entered By: OMER REYES Comment: Ct scan 2022 Entered By: NEHEMIAH LORD [facility] Entered By: NEHEMIAH LORD Comment: last CT chest 10/2021 stable subcentimeter nodules [facility] Unintentional weight loss Active Condition Nov 09, 2022 Entered By: NEHEMIAH LORD Comment: after [facility] Diagnosis: ICD-10-CM M47.27 Other spondylosis with radiculopathy, lumbosacral region Active Diagnosis [facility] Diagnosis: ICD-10-CM J06.9 Acute upper respiratory infection, unspecified Active Diagnosis [place] Diagnosis: ICD-10-CM G89.4 Chronic pain syndrome Active Diagnosis [facility] Diagnosis: ICD-10-CM L60.0 Ingrowing nail Active Diagnosis [facility] [facility] Diagnosis: ICD-10-CM I48.91 Unspecified atrial fibrillation Active Diagnosis [place] Diagnosis: ICD-10-CM M70.62 Trochanteric bursitis, left hip [facility] Diagnosis: ICD-10-CM R63.4 Abnormal weight loss Active Diagnosis [place] Diagnosis: ICD-10-CM I21.4 Non-ST elevation (NSTEMI) myocardial infarction Active Diagnosis [place] Diagnosis: ICD-10-CM M13.872 Other specified arthritis, left ankle and foot Active Diagnosis [facility] Diagnosis: ICD-10-CM R06.09 Other forms of dyspnea Active Diagnosis [facility] Diagnosis: ICD-10-CM R06.00 Dyspnea, unspecified Active Diagnosis [facility] Diagnosis: ICD-10-CM Z46.0 Encounter for fit/adjst of spectacles and contact lenses Active Diagnosis [facility] Diagnosis: ICD-10-CM H40.1111 Primary open-angle glaucoma, right eye, mild stage Active Diagnosis [facility] Diagnosis: ICD-10-CM M46.1 Sacroiliitis, not elsewhere classified Active Diagnosis [facility] Diagnosis: ICD-10-CM M54.17 Radiculopathy, lumbosacral region Active Diagnosis [facility] Diagnosis: 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 Medication Details Route Status Patient Instructions Prescription Expires Prescription Number Last Dispense Date Ordering Provider Order Date Order Qty Source AMIODARONE HCL 200MG TAB TAKE ONE TABLET BY MOUTH ONCE DAILY ORAL ACTIVE 04/29/2025 [id number] RUBY INMAN AV 2023 90 [facility] AMMONIUM LACTATE 12% LOTION APPLY SMALL AMOUNT TOPICALL Y ONCE DAILY NEEDED FOR DRY IRRITATE D SKIN TOPICA L 10/11/2024 [id number] CALISTA EVANS 2024 480 [place] APIXABAN 5MG TAB TAKE ONE TABLET BY MOUTH EVERY 12 HOURS ORAL DISCONT INUED BY PROVIDE R 06/20/2024 [id number] RUBENS RADERN M 2023 180 [facility] ASCORBIC ACID 500MG TAB TAKE ONE TABLET BY MOUTH ONCE DAILY FOR VITAMIN/ NUTRITIO N SUPPLEME NT WITH IRON PILLS ORAL ACTIVE 07/14/2025 [id number] 5 CALISTA EVANS 2024 100 [place] ASPIRIN 81MG TAB,EC TAKE ONE TABLET BY MOUTH ONCE DAILY ORAL ACTIVE NEHEMIAH CISSE 2023 [place] ATORVASTATI N CA 80MG TAB TAKE ONE TABLET BY MOUTH ONCE DAILY FOR HIGH CHOLESTE ROL ORAL ACTIVE 10/16/2025 [id number] 5 NEHEMIAH CISSE M 2024 90 [place] ATORVASTATI N CA 80MG TAB TAKE ONE TABLET BY MOUTH ONCE DAILY FOR HIGH CHOLESTE ROL ORAL DISCONT INUED 04/21/2025 [id number] 5 NEHEMIAH CISSE 2023 90 [place] BETAMETHASO NE DIPROPIONAT E 0.05% AUGMENTED CREAM APPLY A SMALL AMOUNT TOPICALL Y ONCE DAILY FOR ITCHING/ RASH TOPICA L ACTIVE 07/14/2025 [id number] 5 CALISTA EVANS 2024 100 [place] BUPRENORPHI NE 300MCG FILM,BUCCAL PLACE ONE FILM BETWEEN CHEEK AND GUM UNTIL DISSOLVE D EVERY 8 HOURS BUCCAL ACTIVE 03/21/2025 [id number] 5 [facility],[place]ILKA B 2024 90 [facility] BUPRENORPHI NE 450MCG FILM,BUCCAL PLACE ONE FILM BETWEEN CHEEK AND GUM UNTIL DISSOLVE D EVERY 8 HOURS BUCCAL ACTIVE 04/21/2025 [id number] 5 [facility] 2024 90 [facility] DICLOFENAC NA 1% GEL,TOP APPLY 4 GRAMS TOPICALL Y FOUR TIMES A DAY FOR JOINT PAIN FOR OSTEOART HRITIS - USE DOSING CARD PROVIDED IN BOX TOPICA L ACTIVE 10/16/2025 [id number] 5 NEHEMIAH CISSE M 2024 100 [place] DRONEDARONE 400MG TAB TAKE ONE TABLET BY MOUTH TWICE DAILY ORAL DISCONT INUED BY PROVIDE R 09/17/2024 [id number] 4 ORVILLE RADER M 2023 180 [facility] ENSURE PLUS LIQUID VANILLA DRINK 1 CAN BY MOUTH TWICE DAILY FOR NUTRITIO NAL SUPPLEME NTATION ORAL ACTIVE 05/10/2025 [id number] 5 NEHEMIAH CISSE M 2023 48 [place] ENSURE PLUS LIQUID VANILLA DRINK 1 CAN BY MOUTH TWICE DAILY ORAL DISCONT INUED 04/29/2024 [id number] 4 NEHEMIAH CISSE M 2022 48 [place] FERROUS SO4 325MG TAB TAKE ONE TABLET BY MOUTH ONCE DAILY TO SUPPLEME NT IRON TO SUPPLEME NT IRON ORAL ACTIVE 10/16/2025 [id number] 5 NEHEMIAH CISSE M 2024 100 [place] FERROUS SO4 325MG TAB TAKE ONE TABLET BY MOUTH ONCE DAILY TO SUPPLEME NT IRON TO SUPPLEME NT IRON ORAL DISCONT INUED 04/27/2025 [id number] 5 NEHEMIAH CISSE M 2023 100 [place] LATANOPROST 0.005% SOLN,OPH INSTILL 1 DROP INTO EACH EYE AT BEDTIME FOR WIDE-ANG LE GLAUCOMA OPHTHA LMIC ACTIVE 08/04/2025 [id number] 5 ,LAC EY J 2024 7.5 [facility] LATANOPROST 0.005% SOLN,OPH INSTILL 1 DROP INTO EACH EYE AT BEDTIME FOR WIDE-ANG LE GLAUCOMA OPHTHA LMIC DISCONT INUED 08/12/2024 [id number] 5 ,LAC EY J 2023 7.5 [facility] LIDOCAINE 5% PATCH APPLY 1 PATCH TOPICALL Y ONCE DAILY FOR NERVE PAIN (LEAVE PATCH ON FOR 12 HOURS, THEN REMOVE PATCH) TOPICA L ACTIVE 10/16/2025 [id number] 5 NEHEMIAH CISSE M 2024 90 [place] LIDOCAINE 5% PATCH APPLY 1 PATCH TOPICALL Y ONCE DAILY FOR NERVE PAIN (LEAVE PATCH ON FOR 12 HOURS, THEN REMOVE PATCH) TOPICA L DISCONT INUED 04/21/2025 [id number] 5 NEHEMIAH CISSE M 2023 30 [place] LIDOCAINE 5% PATCH APPLY 1 PATCH TOPICALL Y ONCE DAILY FOR NERVE PAIN (LEAVE PATCH ON FOR 12 HOURS, THEN REMOVE PATCH) TOPICA L DISCONT INUED 10/11/2024 [id number] 4 NEHEMIAH CISSE 2023 30 [place] LOVASTATIN 20MG TAB TAKE ONE TABLET BY MOUTH AT BEDTIME FOR CHOLESTE ROL -- AVOID GRAPEFRU IT JUICE ORAL DISCONT INUED BY PROVIDE R 10/11/2024 [id number] 4 NEHEMIAH CISSE M 2023 90 [place] METOPROLOL TARTRATE 25MG TAB TAKE ONE TABLET BY MOUTH TWICE DAILY FOR BLOOD PRESSURE /HEART ORAL DISCONT INUED BY PROVIDE R 04/29/2025 [id number] RUBY INMAN AV 2023 [facility] METOPROLOL TARTRATE 25MG TAB TAKE ONE-HALF TABLET BY MOUTH TWICE DAILY FOR BLOOD PRESSURE /HEART ORAL DISCONT INUED BY PROVIDE R 10/08/2024 [id number] 4 NEHEMIAH CISSE 2023 90 [place] NALOXONE HCL 4MG/SPRAY SOLN,SPRAY, NASAL INSTILL 1 SPRAY ONE NOSTRIL ONE TIME NEEDED FOR OPIOID OVERDOSE CALL 911 WITH ADMINIST RATION. REPEAT WITH SECOND DEVICE IF SYMPTOMS RETURN NASAL 04/20/2024 [id number] 4 Alphonso CARDONA 2023 2 [place] OMEPRAZOLE 20MG CAP,EC TAKE TWO CAPSULES BY MOUTH EVERY MORNING 30 MINUTES BEFORE BREAKFAS T ORAL ACTIVE 10/16/2025 [id number] 5 NEHEMIAH CISSE M 2024 180 [place] OMEPRAZOLE 20MG CAP,EC TAKE TWO CAPSULES BY MOUTH EVERY MORNING 30 MINUTES BEFORE BREAKFAS T ORAL DISCONT INUED 10/11/2024 [id number] 5 NEHEMIAH CISSE M 2023 180 [place] ONDANSETRON HCL 4MG TAB TAKE ONE TABLET BY MOUTH ONCE DAILY NEEDED FOR VOMITING /NAUSEA ORAL ACTIVE 07/25/2025 [id number] 5 NEHEMIAH CISSE M 2024 90 [place] ONDANSETRON HCL 4MG TAB TAKE ONE TABLET BY MOUTH ONCE DAILY NEEDED FOR VOMITING /NAUSEA ORAL DISCONT INUED 03/29/2024 [id number] 4 NEHEMIAH CISSE M 2022 90 [place] OXYCODONE HCL 5MG TAB TAKE ONE TABLET BY MOUTH FOUR TIMES DAILY NEEDED NEXT FILL 11/13 ORAL ACTIVE 11/14/2024 [id number] 5 [facility] B 2024 120 [facility] OXYCODONE HCL 5MG TAB TAKE ONE TABLET BY MOUTH FOUR TIMES DAILY NEEDED NEXT FILL 10/16 ORAL DISCONT INUED 10/18/2024 [id number] 5 [facility]IL[facility] B 2024 120 [facility] OXYCODONE HCL 5MG/ACETAMI NOPHEN 325MG TAB TAKE 1 TABLET BY MOUTH THREE TIMES DAILY NEEDED FOR PAIN NEXT FILL 10/25/24* * ORAL DISCONT INUED BY PROVIDE R 10/17/2024 [id number] 5 NEHEMIAH CISSE M 2024 84 [place] OXYCODONE HCL 5MG/ACETAMI NOPHEN 325MG TAB TAKE 1 TABLET BY MOUTH THREE TIMES DAILY NEEDED FOR PAIN NEXT FILL 09/27/24* * ORAL DISCONT INUED 09/21/2024 [id number] NEHEMIAH CISSE 2024 84 [place] OXYCODONE HCL 5MG/ACETAMI NOPHEN 325MG TAB TAKE 1 TABLET BY MOUTH THREE TIMES DAILY NEEDED FOR PAIN NEXT FILL 08/07/24* * ORAL DISCONT INUED (EDIT) 08/04/2024 [id number] 5 Alphonso CARDONA 2024 84 [place] OXYCODONE HCL 5MG/ACETAMI NOPHEN 325MG TAB TAKE 1 TABLET BY MOUTH THREE TIMES DAILY NEEDED FOR PAIN [NEXT FILL DATE ] ORAL DISCONT INUED 06/08/2024 [id number] NEHEMIAH CISSE 2023 84 [place] OXYCODONE HCL 5MG/ACETAMI NOPHEN 325MG TAB TAKE 1 TABLET BY MOUTH THREE TIMES DAILY NEEDED FOR PAIN [NEXT FILL DATE 05/15/24] ORAL DISCONT INUED 05/13/2024 [id number] 4 NEHEMIAH CISSE 2023 84 [place] OXYCODONE HCL 5MG/ACETAMI NOPHEN 325MG TAB TAKE 1 TABLET BY MOUTH THREE TIMES DAILY NEEDED FOR PAIN [NEXT FILL DATE 04/17/24] ORAL DISCONT INUED 04/19/2024 [id number] NEHEMIAH CISSE 2023 84 [place] OXYCODONE HCL 5MG/ACETAMI NOPHEN 325MG TAB TAKE 1 TABLET BY MOUTH THREE TIMES DAILY NEEDED FOR PAIN NEXT FILL 02/19/24* * ORAL DISCONT INUED 02/20/2024 [id number] Alphonso CARDONA 2023 84 [place] OXYCODONE HCL 5MG/ACETAMI NOPHEN 325MG TAB TAKE 1 TABLET BY MOUTH THREE TIMES DAILY NEEDED FOR PAIN NEXT FILL 01/22/24* * ORAL DISCONT INUED 01/21/2024 [id number] Alphonso CARDONA A 2023 84 [place] OXYCODONE HCL 5MG/ACETAMI NOPHEN 325MG TAB TAKE 1 TABLET BY MOUTH THREE TIMES DAILY NEEDED FOR PAIN NEXT FILL 09/27/23* * ORAL DISCONT INUED 09/26/2023 [id number] NEHEMIAH CISSE 2023 84 [place] OXYCODONE HCL 5MG/ACETAMI NOPHEN 325MG TAB TAKE 1 TABLET BY MOUTH THREE TIMES DAILY NEEDED FOR PAIN NEXT FILL 08/30/23* * ORAL DISCONT INUED 08/28/2023 [id number] NEHEMIAH CISSE 2023 84 [place] OXYCODONE HCL 5MG/ACETAMI NOPHEN 325MG TAB TAKE 1 TABLET BY MOUTH EVERY 6 HOURS NEEDED FOR PAIN NEXT FILL 08/30/24* * ORAL 08/12/2024 [id number] CALISTA EVANS 2024 120 [place] OXYCODONE HCL 5MG/ACETAMI NOPHEN 325MG TAB TAKE 1 TABLET BY MOUTH THREE TIMES DAILY NEEDED FOR PAIN NEXT FILL 07/10/24* * ORAL 07/05/2024 [id number] NEHEMIAH CISSE M 2024 84 [place] OXYCODONE HCL 5MG/ACETAMI NOPHEN 325MG TAB TAKE 1 TABLET BY MOUTH THREE TIMES DAILY NEEDED FOR PAIN NEXT FILL 03/18/24* * ORAL 03/19/2024 [id number] Alphonso CARDONA A 2023 84 [place] OXYCODONE HCL 5MG/ACETAMI NOPHEN 325MG TAB TAKE 1 TABLET BY MOUTH THREE TIMES DAILY NEEDED NEXT FILL 12/23/23* * ORAL 12/22/2023 [id number] INGRIDSUGARTorrie SENGLORIAISAMARNEHEMIAH 2023 84 [facility] OXYCODONE HCL 5MG/ACETAMI NOPHEN 325MG TAB TAKE 1 TABLET BY MOUTH THREE TIMES DAILY NEEDED NEXT FILL 11/25/23* * ORAL 11/22/2023 [id number] INGRIDSUGARNEHEMIAH COLON M 2023 84 [place] OXYCODONE HCL 5MG/ACETAMI NOPHEN 325MG TAB TAKE 1 TABLET BY MOUTH THREE TIMES DAILY NEEDED FOR PAIN NEXT FILL 10/25/23* * ORAL 10/25/2023 [id number] NEHEMIAH CISSE 2023 84 [place] ROPINIROLE HCL 0.25MG TAB TAKE ONE TABLET BY MOUTH DAILY ORAL ACTIVE 12/08/2024 [id number] 5 NEHEMIAH CISSE M 2023 90 [place] ROPINIROLE HCL 0.25MG TAB TAKE ONE TABLET BY MOUTH DAILY ORAL DISCONT INUED 11/09/2023 [id number] 4 NEHEMIAH CISSE M 2022 90 [place] ZINC OXIDE 16% PASTE,TOP APPLY SUFFICIE NT AMOUNT TOPICALL Y ONCE DAILY FOR SKIN IRRITATI ON TOPICA L ACTIVE 04/21/2025 [id number] NEHEMIAH CISSE M 2023 60 [place] [...] Site Reaction Lot Number CVX Code 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 Comments Source INFLUENZA, UNSPECIFIED FORMULATION 2023 88 complet ed HISTORICA L INFORMATI ON - SOURCE UNSPECIFI ED, [facility] INFLUENZA, UNSPECIFIED FORMULATION 2022 88 complet ed HISTORICA L INFORMATI ON - SOURCE UNSPECIFI ED, [facility] INFLUENZA [...] SEASONAL, INJECTABLE 2018 141 complet ed [facility] [place] Fluzone high dose , [employer] Lot [id number], , Left Deltoid [facility] PNEUMOCOCCAL CONJUGATE PCV 13 2018 133 complet ed Pfizer lot [id number] exp Right Deltoid [facility] INFLUENZA, SEASONAL, INJECTABLE [address] [place] [facility] INFLUENZA, SEASONAL, INJECTABLE 2017 [address] [facility] [address] [place] [facility] INFLUENZA, SEASONAL, INJECTABLE 2016 141 complet ed [facility] INFLUENZA, SEASONAL, INJECTABLE 2016 141 complet ed Site: Left Deltoid [facility] PNEUMOCOCCAL POLYSACCHARID E PPV23 2016 33 complet ed [place] FLU,3 YRS (HISTORICAL) 2015 88 complet ed [facility] [place] [facility] PNEUMOCOCCAL CONJUGATE PCV 13 2014 133 complet ed [place] ZOSTER (HISTORICAL) 2014 121 complet ed [place] DTAP, UNSPECIFIED FORMULATION 2014 107 complet ed [facility] FLU,3 YRS [...] FERRITIN [MASS/VOLUM E] IN SERUM OR PLASMA BY IMMUNOASSAY 112.1 ng/mL 21.8 - 274.7 10/15 Specimen Type: SERUM No comment entered. Ordering Provider: JOSE REIS Report Released Date/Time: Oct 15, 2024 09:30 AM Reporting Lab: [facility] [place] [facility] [address] [facility] [address] Performing Lab: [facility] [place] [facility] [address] [facility] [address] [place] PSA PROSTATE SPECIFIC AG [MASS/VOLUM E] IN SERUM OR PLASMA BY IMMUNOASSAY <0.1ng /mL 0 - 4 10/15 Specimen Type: SERUM No comment entered. Ordering Provider: JOSE REIS Report Released Date/Time: Oct 15, 2024 09:30 AM Reporting Lab: [facility] [address] [facility] [address] Performing Lab: [facility] [address] [facility] [address] [place] IRON & TIBC PANEL IRON BINDING CAPACITY [MASS/VOLUM E] IN SERUM OR PLASMA 261 ug/dL 204 - 475 10/15 Specimen Type: SERUM No comment entered. Ordering Provider: JOSE REIS Report Released Date/Time: Oct 15, 2024 09:30 AM Reporting Lab: [facility] [place] [facility] [address] [facility] [address] Performing Lab: [facility] [address] [address] [place] IRON & TIBC PANEL IRON [MASS/VOLUM E] IN SERUM OR PLASMA 75 ug/dL 65 - 175 10/15 Specimen Type: SERUM No comment entered. Ordering Provider: JOSE REIS Report Released Date/Time: Oct 15, 2024 09:30 AM Reporting Lab: [facility] [place] [address] [address] Performing Lab: [facility] [place] [address] [address] [place] IRON & TIBC PANEL IRON/IRON BINDING CAPACITY.TO ARTEMIO [MASS RATIO] IN SERUM OR PLASMA 28.7 15 - 45 10/15 Specimen Type: SERUM No comment entered. Ordering Provider: JOSE REIS Report Released Date/Time: Oct 15, 2024 09:30 AM Reporting Lab: [facility] [place] [facility] [address] [facility] [address] Performing Lab: [facility] CENTERUSE[address] [address] [place] IRON & TIBC PANEL TRANSFERRIN [MASS/VOLUM E] IN SERUM OR PLASMA 198 mg/dL 180 - 382 10/15 Specimen Type: SERUM No comment entered. Ordering Provider: JOSE REIS Report Released Date/Time: Oct 15, 2024 09:30 AM Reporting Lab: [facility] [address] [facility] [address] Performing Lab: [facility] [address] [facility] [address] [place] FREE T4 THYROXINE (T4) FREE [MASS/VOLUM E] IN SERUM OR PLASMA 1.31 ng/dL 0.70 - 1.48 10/15 Specimen Type: SERUM No comment entered. Ordering Provider: JOSE REIS Report Released Date/Time: Oct 15, 2024 09:35 AM Reporting Lab: [facility] [address] [facility] [address] Performing Lab: [address] [address] [place] TSH THYROTROPIN [UNITS/VOLU ME] IN SERUM OR PLASMA BY DETECTION LIMIT <= 0.005 MIU/L 0.73 u[IU]/ mL 0.35 - 4.94 10/15 Specimen Type: SERUM No comment entered. Ordering Provider: JOSE REIS Report Released Date/Time: Oct 15, 2024 09:35 AM Reporting Lab: [facility] [address] [facility] [address] Performing Lab: [address] [address] [place] BASIC METABOLIC PANEL (non-fast ing) UREA NITROGEN [MASS/VOLUM E] IN SERUM OR PLASMA 16 mg/dL 8 - 26 10/15 Specimen Type: SERUM No comment entered. Ordering Provider: JOSE REIS Report Released Date/Time: Oct 15, 2024 09:30 AM Reporting Lab: [address] [address] Performing Lab: [address] [address] [place] BASIC METABOLIC PANEL (non-fast ing) GLUCOSE [MASS/VOLUM E] IN SERUM OR PLASMA 95 mg/dL 65 - 100 10/15 Specimen Type: SERUM No comment entered. Ordering Provider: JOSE REIS Report Released Date/Time: Oct 15, 2024 09:30 AM Reporting Lab: [facility] [place] [facility] [address] [facility] [address] Performing Lab: [facility] [address] [facility] [address] [place] BASIC METABOLIC PANEL (non-fast ing) SODIUM [MOLES/VOLU ME] IN SERUM OR PLASMA 139 mmol/L 136 - 145 10/15 Specimen Type: SERUM No comment entered. Ordering Provider: JOSE REIS Report Released Date/Time: Oct 15, 2024 09:30 AM Reporting Lab: [facility] [address] [facility] [address] Performing Lab: [facility]N [facility]ENTERUSE[address] [address] [place] BASIC METABOLIC PANEL (non-fast ing) POTASSIUM [MOLES/VOLU ME] IN SERUM OR PLASMA 4.6 mmol/L 3.5 - 5.1 10/15 Specimen Type: SERUM No comment entered. Ordering Provider: JOSE REIS Report Released Date/Time: Oct 15, 2024 09:30 AM Reporting Lab: [facility] [address] [facility] [address] Performing Lab: [facility] [address] [facility] [address] [place] BASIC METABOLIC PANEL (non-fast ing) CHLORIDE [MOLES/VOLU ME] IN SERUM OR PLASMA 101 mmol/L 98 - 107 10/15 Specimen Type: SERUM No comment entered. Ordering Provider: JOSE REIS Report Released Date/Time: Oct 15, 2024 09:30 AM Reporting Lab: [facility] [place] [facility] [address] [facility] [address] Performing Lab: [facility] [address] [facility] [address] [place] BASIC METABOLIC PANEL (non-fast ing) CARBON DIOXIDE, TOTAL [MOLES/VOLU ME] IN SERUM OR PLASMA 28 meq/L 23 - 31 10/15 Specimen Type: SERUM No comment entered. Ordering Provider: JOSE REIS Report Released Date/Time: Oct 15, 2024 09:30 AM Reporting Lab: [address] [address] Performing Lab: [id number] [place], [place] [address] [employer] BASIC METABOLIC PANEL (non-fast ing) CALCIUM [MASS/VOLUM E] IN SERUM OR PLASMA 8.8 mg/dL 8.8 - 10 10/15 Specimen Type: SERUM No comment entered. Ordering Provider: JOSE REIS Report Released Date/Time: Oct 15, 2024 09:30 AM Reporting Lab: [address] [address] Performing Lab: [address] [id number] [place], [place] [address] [employer] BASIC METABOLIC PANEL (non-fast ing) CREATININE [MASS/VOLUM E] IN SERUM OR PLASMA 0.98 mg/dL 0.72 - 1.25 10/15 Specimen Type: SERUM No comment entered. Ordering Provider: JOSE REIS Report Released Date/Time: Oct 15, 2024 09:30 AM Reporting Lab: [address] [address] Performing Lab: [address] [address] [employer] BASIC METABOLIC PANEL (non-fast ing) GLOMERULAR FILTRATION RATE/1.73 SQ M.PREDICTED [VOLUME RATE/AREA] IN SERUM, PLASMA OR BLOOD BY CREATININE- BASED FORMULA (CKD-EPI 2020) 80 mL/min 60 10/15 Specimen Type: SERUM No comment entered. Ordering Provider: JOSE REIS Report Released Date/Time: Oct 15, 2024 09:30 AM Reporting Lab: [place] [facility] [place] [facility] [address] [facility] [address] Performing Lab: [place] [facility] [facility] [address] [facility] [address] [place] CBC AND DIFF (AUTO) LEUKOCYTES [#/VOLUME] IN BLOOD BY AUTOMATED COUNT 10.10 10*3/u L 4.50 - 11.00 10/15 Specimen Type: BLOOD No comment entered. Ordering Provider: JOSE REIS Report Released Date/Time: Oct 15, 2024 09:30 AM Reporting Lab: [facility] [facility] [address] [facility] [address] Performing Lab: [facility] [address] [address] [place] CBC AND DIFF (AUTO) ERYTHROCYTE S [#/VOLUME] IN BLOOD BY AUTOMATED COUNT 4.50 10*6/u L 4.23 - 5.66 10/15 Specimen Type: BLOOD No comment entered. Ordering Provider: JOSE REIS Report Released Date/Time: Oct 15, 2024 09:30 AM Reporting Lab: [facility] [place] [address] [address] Performing Lab: [facility] [place] [address] [address] [place] CBC AND DIFF (AUTO) HEMOGLOBIN [MASS/VOLUM E] IN BLOOD 13.3 g/dL 12.8 - 17 10/15 Specimen Type: BLOOD No comment entered. Ordering Provider: JOSE REIS Report Released Date/Time: Oct 15, 2024 09:30 AM Reporting Lab: [facility] [place] [address] [address] Performing Lab: [facility] [place] [address] [address] [place] CBC AND DIFF (AUTO) HEMATOCRIT [VOLUME FRACTION] OF BLOOD BY AUTOMATED COUNT 40.6 39.2 - 50.4 10/15 Specimen Type: BLOOD No comment entered. Ordering Provider: JOSE REIS Report Released Date/Time: Oct 15, 2024 09:30 AM Reporting Lab: [facility] [address] [facility] [address] Performing Lab: [facility] [address] [facility] [address] [place] CBC AND DIFF (AUTO) MCV [ENTITIC VOLUME] BY AUTOMATED COUNT 90.2 fL 82 - 99 10/15 Specimen Type: BLOOD No comment entered. Ordering Provider: JOSE REIS Report Released Date/Time: Oct 15, 2024 09:30 AM Reporting Lab: [facility] [address] [facility] [address] Performing Lab: [facility]RS[facility]ENTERN [facility]ENTERUSE[address] [address] [place] CBC AND DIFF (AUTO) MCHC [MASS/VOLUM E] BY AUTOMATED COUNT 32.8 g/dL 30.8 - 35.1 10/15 Specimen Type: BLOOD No comment entered. Ordering Provider: JOSE REIS Report Released Date/Time: Oct 15, 2024 09:30 AM Reporting Lab: [facility] [address] [facility] [address] Performing Lab: [facility]BOURTRN [facility] [address] [address] [place] CBC AND DIFF (AUTO) PLATELETS [#/VOLUME] IN BLOOD BY AUTOMATED COUNT 338 10*3/u L 140 - 360 10/15 Specimen Type: BLOOD No comment entered. Ordering Provider: JOSE REIS Report Released Date/Time: Oct 15, 2024 09:30 AM Reporting Lab: [facility] [address] [facility] [address] Performing Lab: [facility]N [facility]ENTERUSE[address] [address] [place] CBC AND DIFF (AUTO) PLATELET MEAN VOLUME [ENTITIC VOLUME] IN BLOOD BY AUTOMATED COUNT 10.6 fL 9.2 - 12.4 10/15 Specimen Type: BLOOD No comment entered. Ordering Provider: JOSE REIS Report Released Date/Time: Oct 15, 2024 09:30 AM Reporting Lab: [facility] BARBOURTRN [address] [address] Performing Lab: [facility]ITALRSOUT[facility] CENTERN [address] [address] [place] CBC AND DIFF (AUTO) ERYTHROCYTE DISTRIBUTIO N WIDTH [RATIO] BY AUTOMATED COUNT 13.0 12.0 - 16.0 10/15 Specimen Type: BLOOD No comment entered. Ordering Provider: JOSE REIS Report Released Date/Time: Oct 15, 2024 09:30 AM Reporting Lab: [facility] BARBOURTRN [address] [address] Performing Lab: [facility] BARBOURTRN [facility]ENTERUSE[address] [address] [place] CBC AND DIFF (AUTO) MONOCYTES [#/VOLUME] IN BLOOD BY AUTOMATED COUNT 0.70 10*3/u L 0.30 - 1.10 10/15 Specimen Type: BLOOD No comment entered. Ordering Provider: JOSE REIS Report Released Date/Time: Oct 15, 2024 09:30 AM Reporting Lab: [facility]OURTRN [facility]ENTERUSE[address] [address] Performing Lab: [facility]RL [facility]N [facility]ENTERUSETS [address] [address] [place] CBC AND DIFF (AUTO) MCH [ENTITIC MASS] BY AUTOMATED COUNT 29.6 pg 26.2 - 32.6 10/15 Specimen Type: BLOOD No comment entered. Ordering Provider: JOSE REIS Report Released Date/Time: Oct 15, 2024 09:30 AM Reporting Lab: [facility]OURTRN [facility]ENTERUSE[address] [address] Performing Lab: [facility]N [place] [address] [address] [place] CBC AND DIFF (AUTO) NEUTROPHILS /100 LEUKOCYTES IN BLOOD BY AUTOMATED COUNT 82.0 43.7 - 75.8 10/15 H Specimen Type: BLOOD No comment entered. Ordering Provider: JOSE REIS Report Released Date/Time: Oct 15, 2024 09:30 AM Reporting Lab: [facility] [place] [address] [address] Performing Lab: [facility] [place] [address] [address] [place] CBC AND DIFF (AUTO) LYMPHOCYTES /100 LEUKOCYTES IN BLOOD BY AUTOMATED COUNT 9.3 14.0 - 42.3 10/15 L Specimen Type: BLOOD No comment entered. Ordering Provider: JOSE REIS Report Released Date/Time: Oct 15, 2024 09:30 AM Reporting Lab: [facility] [place] [address] [address] Performing Lab: [facility] [place] [address] [address] [place] CBC AND DIFF (AUTO) MONOCYTES/1 00 LEUKOCYTES IN BLOOD BY AUTOMATED COUNT 6.9 5.1 - 13.7 10/15 Specimen Type: BLOOD No comment entered. Ordering Provider: JOSE REIS Report Released Date/Time: Oct 15, 2024 09:30 AM Reporting Lab: [facility] [place] [address] [address] Performing Lab: [facility] [place] [address] [address] [place] CBC AND DIFF (AUTO) EOSINOPHILS /100 LEUKOCYTES IN BLOOD BY AUTOMATED COUNT 1.0 0.4 - 6.8 10/15 Specimen Type: BLOOD No comment entered. Ordering Provider: JOSE REIS Report Released Date/Time: Oct 15, 2024 09:30 AM Reporting Lab: [facility] [place] [address] [address] Performing Lab: [facility]ITALRL TRN [facility]ENTER[facility]ETS [facility] [address] [facility] [address] [place] CBC AND DIFF (AUTO) BASOPHILS/1 00 LEUKOCYTES IN BLOOD BY AUTOMATED COUNT 0.2 0.1 - 2.0 10/15 Specimen Type: BLOOD No comment entered. Ordering Provider: JOSE REIS Report Released Date/Time: Oct 15, 2024 09:30 AM Reporting Lab: [facility]ITALRL TRN [facility]ENTERUSETS [address] [address] Performing Lab: [facility]ITALRSOUTHEAST [facility] MED[facility] CENTERN [address] [address] [place] CBC AND DIFF (AUTO) NEUTROPHILS [#/VOLUME] IN BLOOD BY AUTOMATED COUNT 8.28 10*3/u L 2.20 - 7.60 10/15 H Specimen Type: BLOOD No comment entered. Ordering Provider: JOSE REIS Report Released Date/Time: Oct 15, 2024 09:30 AM Reporting Lab: [facility]ITALRL TRN [address] [address] Performing Lab: [facility]ITALRSOUTHEAST [facility] MEDICAL CENTERN [facility]ENTERUSE[address] [address] [place] CBC AND DIFF (AUTO) LYMPHOCYTES [#/VOLUME] IN BLOOD BY AUTOMATED COUNT 0.94 10*3/u L 1.00 - 3.20 10/15 L Specimen Type: BLOOD No comment entered. Ordering Provider: JOSE REIS Report Released Date/Time: Oct 15, 2024 09:30 AM Reporting Lab: [facility]ITALRL TRN [facility]ENTERUSE[address] [address] Performing Lab: [facility]ITALRSOUTHEAST [facility] MEDICAL CENTERN [facility]ENTERUSE[address] [address] [place] CBC AND DIFF (AUTO) EOSINOPHILS [#/VOLUME] IN BLOOD BY AUTOMATED COUNT 0.10 10*3/u L 0.03 - 0.44 10/15 Specimen Type: BLOOD No comment entered. Ordering Provider: JOSE REISKA M Report Released Date/Time: Oct 15, 2024 09:30 AM Reporting Lab: [facility] [address] [address] Performing Lab: [facility]ENTER[facility]ETS [address] [address] [place] CBC AND DIFF (AUTO) BASOPHILS [#/VOLUME] IN BLOOD BY AUTOMATED COUNT 0.02 10*3/u L 0.01 - 0.13 10/15 Specimen Type: BLOOD No comment entered. Ordering Provider: JOSE REIS Report Released Date/Time: Oct 15, 2024 09:30 AM Reporting Lab: [facility]ENTERUSE[address] [address] Performing Lab: [facility] TR[facility]ENTERUSE[address] [address] [place] CBC AND DIFF (AUTO) IMMATURE GRANULOCYTE S/100 LEUKOCYTES IN BLOOD BY AUTOMATED COUNT 0.6 0.0 - 0.7 10/15 Specimen Type: BLOOD No comment entered. Ordering Provider: JOSE REIS Report Released Date/Time: Oct 15, 2024 09:30 AM Reporting Lab: [facility]ENTERUSETS [address] [address] Performing Lab: [facility] TR[facility]ENTERUSETS [address] [address] [place] CBC AND DIFF (AUTO) IMMATURE GRANULOCYTE S [#/VOLUME] IN BLOOD BY AUTOMATED COUNT 0.06 10*3/u L 0.00 - 0.06 10/15 Specimen Type: BLOOD No comment entered. Ordering Provider: JOSE REIS Report Released Date/Time: Oct 15, 2024 09:30 AM Reporting Lab: [facility]ENTER[facility]ETS [address] [address] Performing Lab: [facility] TR[facility]ENTERUSE[address] [address] [place] CBC AND DIFF (AUTO) NUCLEATED ERYTHROCYTE S/100 LEUKOCYTES [RATIO] IN BLOOD BY AUTOMATED COUNT 0.0 0.0 - 0.0 10/15 Specimen Type: BLOOD No comment entered. Ordering Provider: JOSE REIS Report Released Date/Time: Oct 15, 2024 09:30 AM Reporting Lab: [facility] [address] [address] Performing Lab: [facility]ENTERUSE[address] [address] [place] CBC AND DIFF (AUTO) NUCLEATED ERYTHROCYTE S [#/VOLUME] IN BLOOD BY AUTOMATED COUNT 0.00 10*3/u L 0.00 - 0.00 10/15 Specimen Type: BLOOD No comment entered. Ordering Provider: JOSE REIS Report Released Date/Time: Oct 15, 2024 09:30 AM Reporting Lab: [address] [address] Performing Lab: [facility]ENTERUSE[address] [address] [place] FERRITIN FERRITIN [MASS/VOLUM E] IN SERUM OR PLASMA 30 ng/mL 20 - 300 06/22 Specimen Type: SERUM No comment entered. Ordering Provider: JOSE REIS Report Released Date/Time: Apr 26, 2024 02:32 AM Reporting Lab: [facility]ENTERUSE[address] [address] Performing Lab: [facility]ENTERUSETS [address] [address] [place] IRON & TIBC PANEL IRON BINDING CAPACITY [MASS/VOLUM E] IN SERUM OR PLASMA 355 ug/dL 204 - 475 06/22 Specimen Type: SERUM No comment entered. Ordering Provider: JOSE REIS Report Released Date/Time: Apr 26, 2024 02:32 AM Reporting Lab: [facility] [address] [address] Performing Lab: [facility]ERN [facility]ENTERUSE[address] [address] [place] IRON & TIBC PANEL IRON [MASS/VOLUM E] IN SERUM OR PLASMA 63 ug/dL 40 - 160 06/22 Specimen Type: SERUM No comment entered. Ordering Provider: JOSE REIS Report Released Date/Time: Apr 26, 2024 02:32 AM Reporting Lab: [facility] [address] [address] Performing Lab: [facility]ENTERUSE[address] [address] [place] IRON & TIBC PANEL IRON/IRON BINDING CAPACITY.TO ARTEMIO [MASS RATIO] IN SERUM OR PLASMA 17.7 20.0 - 50.0 06/22 L Specimen Type: SERUM No comment entered. Ordering Provider: JOSE REIS Report Released Date/Time: Apr 26, 2024 02:32 AM Reporting Lab: [address] [address] Performing Lab: [address] [address] [place] IRON & TIBC PANEL TRANSFERRIN [MASS/VOLUM E] IN SERUM OR PLASMA 269 mg/dL 200 - 360 06/22 Specimen Type: SERUM No comment entered. Ordering Provider: JOSE REIS Report Released Date/Time: Apr 26, 2024 02:32 AM Reporting Lab: [facility] [address] Performing Lab: [facility] [address] [place] RETICULOC YTES RETICULOCYT ES [#/VOLUME] IN BLOOD 0.7 0.6 - 2.0 06/22 Specimen Type: BLOOD No comment entered. Ordering Provider: JOSE REIS Report Released Date/Time: Apr 26, 2024 02:32 AM Reporting Lab: [address] [address] Performing Lab: [facility] [place] [facility] [address] [facility] [address] [place] RETICULOC YTES RETICULOCYT ES/100 ERYTHROCYTE S IN BLOOD BY AUTOMATED COUNT 31.3 10*3/u L 30.0 - 90.0 06/22 Specimen Type: BLOOD No comment entered. Ordering Provider: JOSE REIS Report Released Date/Time: Apr 26, 2024 02:32 AM Reporting Lab: [facility]TRN [place] [facility] [address] [facility] [address] Performing Lab: [facility] [place] [facility] [address] [facility] [address] [place] RETICULOC YTES HEMOGLOBIN [ENTITIC MASS] IN RETICULOCYT ES BY AUTOMATED COUNT 32.3 pg 27.9 - 42.0 06/22 Specimen Type: BLOOD No comment entered. Ordering Provider: JOSE REIS Report Released Date/Time: Apr 26, 2024 02:32 AM Reporting Lab: [facility] [place] [address] [address] Performing Lab: [facility]ENTERUSE[address] [address] [place] Vital Signs Combined list of inpatient and outpatient Vital Signs from Department of Defense and Veterans Affairs, ranging from 12 months to all on record, depending upon the facility. Vital Sign Value Date Comments Source SYSTOLIC BLOOD PRESSURE 143 10/16/19 25 09:06:22 [facility] DIASTOLIC BLOOD PRESSURE 65 025 09:06:22 [facility] PULSE OXIMETRY 92 % 10/15/2024 09:06:22 [facility] WEIGHT 136 10/15/2024 09:06:22 [facility] BMI 21 kg/m2 10/15/2024 09:06:22 [facility] TEMPERATURE 96.7 10/15/2024 09:06:22 [facility] PULSE 52 10/15/2024 09:06:22 [facility] SYSTOLIC BLOOD PRESSURE 151 07/14/19 25 08:52:26 [facility] DIASTOLIC BLOOD PRESSURE 80 025 08:52:26 [facility] PULSE OXIMETRY 97 07/13/2024 08:52:26 [facility] WEIGHT 135 07/13/2024 08:52:26 [facility] BMI 21 kg/m2 07/13/2024 08:52:26 [facility] PULSE 54 07/13/2024 08:52:26 [facility] SYSTOLIC BLOOD PRESSURE 155 07/03/19 08:45:16 [facility] [place] [facility] DIASTOLIC BLOOD PRESSURE 66 025 08:45:16 [facility] [place] [facility] PULSE OXIMETRY 97 07/03/2024 08:45:16 [facility] [...] kg/m2 06/22/2024 09:00:02 [facility] [place] [facility] SYSTOLIC BLOOD PRESSURE 149 04/20/20 24 08:53:25 [facility] DIASTOLIC BLOOD PRESSURE 56 024 08:53:25 [facility] PULSE OXIMETRY 99 04/20/2024 08:53:25 [facility] WEIGHT 132.2 04/20/2024 08:53:25 [facility] BMI 20 kg/m2 04/20/2024 08:53:25 [facility] TEMPERATURE 97.3 04/20/2024 08:53:25 [facility] PULSE 48 04/20/2024 08:53:25 [facility] Encounters Combined list of: 1) Encounters from [...] [facility] [place] [facility] [id number] 05/07 [facility] [place] [facility] [place] En[facility] [id number] 05/10 [facility] [place] [facility] OFFICE O/P EST LOW 20 MIN [id number] Diagnos is: ICD-10- CM L60.0 WES Solis F 05/22 [facility] [place] [facility] En[facility] [id number] 05/22 [facility] [place] [facility] [facility] [place] En[facility] [id number] 05/24 [facility] [place] [facility] [place] En[facility] [id number] 05/24 [facility] [place] [facility] [place] Encounter [id number] 05/28 [facility] [place] [facility] [place] En[facility] [id number] 06/05 [facility] [place] [facility] [place] En[facility] [id number] 06/15 [facility] [place] [facility] [facility] [place] En[facility] [id number] 06/15 [facility] [place] [facility] [place] Encounter [id number] 06/17 [facility] [place] [facility] [facility] En[facility] [id number] 06/18 [facility] [place] [facility] [facility] [place] [facility] Outpatient Encounter [id number] 06/18 [facility] [place] [facility] (89GE) MTMS BY PHARM ASSIGNMENT AGENT 15 MIN [id number] Diagnos is: ICD-10- CM I48.20 Chronic atrial fibrill ation, unspeci fied YUVAL DURAN 06/19 [facility] (89GE) [place] [facility] [facility] Outpatient Encounter [id number] 06/19 [place] [facility] [place] [facility] (631GE) MTMS BY PHARM ASSIGNMENT AGENT 15 MIN [id number] Diagnos is: ICD-10- CM Z79.01 [facility] (curren t) use of anticoa gulants YUVAL DURAN 06/21 [facility] (89GE) [place] MED NUTRITION INDIV SUBSEQ [id number] Diagnos is: ICD-10- CM R63.4 Abnorma l weight loss DANIELLE PARR 06/24 [place] [facility] En[facility] [id number] 06/29 [facility] [place] [facility] [facility] [place] [facility] Outpatient Encounter [id number] 06/30 [facility] [place] [facility] [facility] [place] [facility] Outpatient Encounter [id number] 07/03 [facility] [place] [facility] [place] [facility] Outpatient Encounter [id number] 07/04 [facility] [place] [facility] OFFICE O/P EST HI 40 MIN [id number] Diagnos is: ICD-10- CM I48.91 Unspeci fied atrial fibrill ation JUAN QUINONEZ 07/04 [place] [facility] Encounter [id number] 07/05 [facility] [place] [facility] En[facility] [id number] 07/16 [facility] [place] [facility] [place] [facility] OFFICE O/P EST HI 40 MIN [id number] Diagnos is: ICD-10- CM M54.17 Radicul opathy, lumbosa cral region PRIETO,QUE MAGALI THI 07/16 [facility] [place] [facility] En[facility] [id number] 07/16 [facility] [place] [facility] (631GE) MTMS BY PHARM EST 15 MIN [id number] Diagnos is: ICD-10- CM I48.91 Unspeci fied atrial fibrill ation CHUY ELKINS 07/22 [facility] (89GE) [facility] En[facility] [id number] 07/28 [facility] [place] En[facility] [id number] 07/31 [facility] [place] Encounter [id number] 08/06 [facility] [place] OFF[facility] O/P EST MOD 30 MIN [id number] Diagnos is: ICD-10- CM M46.1 Sacroil iitis, not elsewhe re classif ied Alphonso COHEN 08/11 [facility] [place] En[facility] [id number] 08/12 [facility] [place] En[facility] [id number] 08/25 [facility] [place] En[facility] [id number] 08/29 [facility] [place] En[facility] [id number] 09/10 [facility] [place] En[facility] [id number] 09/12 [facility] [place] En[facility] [id number] 09/16 [facility] [place] Encounter [id number] 09/23 [facility] [place] OFFICE O/P EST HI 40 MIN [id number] Diagnos is: ICD-10- CM M46.1 Sacroil iitis, not elsewhe re classif ied BERNABE PRIETO 10/01 [facility] [place] [facility] En[facility] [id number] 10/01 [facility] [place] OFFICE O/P EST SF 10 MIN [id number] Diagnos is: ICD-10- CM I48.91 Unspeci fied atrial fibrill ation KRYSTLE VEE,OG ETIENNE M 10/07 [place] [facility] En[facility] [id number] 10/10 [facility] [place] En[facility] [id number] 10/20 [facility] [place] [facility] O/P EST MOD 30 MIN [id number] Diagnos is: ICD-10- CM L60.0 Ingrowi WES Nichole F 10/22 [place] [facility] Out[facility] Encounter [id number] 10/28 [facility] [id number] 10/28 [facility] COMPRE OPH EXAM EST PT 1/> [id number] Diagnos is: ICD-10- CM H40.111 1 Primary open-an gle glaucom a, right eye, mild stage ,LACE Y J 11/18 [facility] FIT SPECTACLES MULTIFOCAL [id number] Diagnos is: ICD-10- CM Z46.0 Encount er for fit/adj st of spectac les and contact lenses CINTHYA MARKS 11/18 [facility] Out[facility] Encounter [id number] 11/21 [facility]counter [id number] 12/04 [facility] [id number] 12/05 [facility] [id number] 12/07 [facility]counter [id number] 12/19 [facility] EVALUATION OF WHEEZING [id number] Diagnos is: ICD-10- CM R06.00 Dyspnea , unspeci fied JARMOLOWIC CASANDRA Mcneill 12/22 [facility] En[facility] [id number] Lillian MOSQUEDA MD 12/22 [facility] Encounter [id number] 12/22 [facility] PULM FUNCTION TEST BY GAS [id number] Diagnos is: ICD-10- CM R06.09 Other forms of dyspnea Lillian MOSQUEDA MD 12/22 [facility] Out[facility]counter [id number] 12/29 [facility]counter [id number] [facility] [id number] 01/13 [facility] [id number] [facility] [id number] 01/21 [facility] [id number] 01/22 [facility]counter [id number] 01/27 [facility] OFFICE O/P EST MOD 30 MIN [id number] Diagnos is: ICD-10- CM M13.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 Alphonso [facility] 01/29 [facility] Encounter [id number] 01/29 [facility] Encounter [id number] 02/16 [facility] Out[facility] Encounter [id number] 03/06 [facility] OFFICE O/P EST LOW 20 MIN [id number] Diagnos is: ICD-10- CM L60.0 Ingrowi RUBÉN NicholeAnibal CAR Alves 03/11 [facility] Encounter [id number] 03/13 [facility] Encounter [id number] 03/16 [facility] Encounter [id number] 03/16 [facility] Encounter [id number] 03/18 [facility] Encounter [id number] 03/20 [facility] Encounter [id number] 03/20 [facility] Encounter [id number] 03/31 [facility] Out[facility] Encounter [id number] 04/02 [facility] Out[facility] Encounter [id number] 04/07 [facility] Out[facility] Encounter [id number] 04/13 [facility] Encounter [id number] 04/13 [facility] Encounter [id number] 04/13 [facility] Encounter [id number] 1.04/13 [facility] Encounter [id number] 1.04/16 [facility] Encounter [id number] 1.04/16 [facility] Encounter [id number] 1.04/16 [facility] OFFICE O/P EST HI 40 MIN [id number] Diagnos is: ICD-10- CM I21.4 Non-ST elevati on (NSTEMI ) myocard ial infarct ion JUAN QUINONEZ 04/20 [place] [facility] Out[facility] Encounter [id number] 04/20 [facility] Encounter [id number] 04/26 [facility] Out[facility] Encounter [id number] 05/04 [facility] Out[facility] Encounter [id number] 05/08 [facility] Out[facility] Encounter [id number] 05/25 [facility] Out[facility] Encounter [id number] 06/03 [facility] Out[facility] Encounter [id number] [facility] [place] [facility] NUTRITION INDIV SUBSEQ [id number] Diagnos is: ICD-10- CM R63.4 Abnorma l weight loss DANIELLE PARR P 06/22 [place] [facility] Outpatient Encounter [id number] 06/23 [facility] Out[facility] Encounter [id number] [facility] OFFICE O/P EST MOD 30 MIN [id number] Diagnos is: ICD-10- CM M70.62 Trochan teric bursiti s, left hip Alphonso COHEN L 07/03 [facility] Outpatient Encounter [id number] [facility] OFFICE O/P EST MOD 30 MIN [id number] Diagnos is: ICD-10- CM I48.91 Unspeci fied atrial fibrill ation Jamia EVANS 07/13 [place] [facility] Outpatient Encounter [id number] 07/13 [facility] OFFICE O/P EST LOW 20 MIN [id number] Diagnos is: ICD-10- CM L60.0 Ingrowi ng WES Waters ES F 07/22 [place] [facility] Outpatient Encounter [id number] 07/24 [facility] Out[facility] Encounter [id number] 07/24 [facility] Out[facility] Encounter [id number] 07/31 [facility] Out[facility] Encounter [id number] 08/17 [facility] Out[facility] Encounter [id number] 08/21 [facility] Out[facility] Encounter [id number] 08/22 [facility] Out[facility] Encounter [id number] 08/26 [facility] Out[facility] Encounter [id number] 09/02 [facility] Out[facility] Encounter [id number] 09/08 [facility] Out[facility] Encounter [id number] 09/10 [facility] Out[facility] Encounter [id number] 09/17 [facility] Out[facility]counter [id number] 09/17 [facility] Outpatient Encounter [id number] [facility] OFFICE O/P NEW HI 60 MIN [id number] Diagnos is: ICD-10- CM G89.4 Chronic pain syndrom e KUPFERSCHM ID,MILKA B 09/18 [facility] Out[facility] Encounter [id number] 09/18 [facility] Outpatient Encounter [id number] 10/08 [facility] Out[facility] Encounter [id number] 10/12 [facility] Outpatient Encounter [id number] 10/15 [facility] [place] OFFICE O/P EST MOD 30 MIN [id number] Diagnos is: ICD-10- CM J06.9 Acute upper respira tory infecti on, unspeci fied JUAN QUINONEZ 10/15 [facility] [facility] Outpatient Encounter [id number] 10/16 [facility] SYNCH AUDIO-VIDE O EST MOD 30 [id number] Diagnos is: ICD-10- CM 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 Social History Type Response Date Comment Sour e Tobacco smoking status NHIS VA-TOBACCO USE FORMER CIGARETTES 07/13/2024 [facility] History of tobacco use [place]-TOBACCO NEVER USED OTHER TYPE 07/13/2024 [facility] History of tobacco use VA-TOBACCO FORMER USER 07/04/2023 [facility] [place] [facility] History of tobacco use WA-TOBACCO FORMER USER 03/14/2022 [facility] [place] [facility] History of tobacco use WA-TOBACCO QUIT 15 YRS OR MORE 02/08/2021 [facility] [place] [facility] History of tobacco use WA-TOBACCO QUIT 5 TO < 15 YRS 10/09/2019 [facility] [place] [facility] History of tobacco use WA-TOBACCO QUIT 15 YRS OR MORE 10/31/2018 [facility] History of tobacco use QUIT TOBACCO USE > 7 YEARS AGO 07/12/2017 [facility] History of tobacco use QUIT TOBACCO USE > 7 YEARS AGO 03/30/2016 [facility] History of tobacco use QUIT TOBACCO USE > 7 YEARS AGO 03/04/2015 [facility] Plan of Care List of future care activities from Department [facility] facilities. Additional future care activities may be listed in the Assessment and Plan section. Date/Time Care Activity Care Activity Detail Facili ty 10/30/2024 AMBULATORY - MEDICINE AMBULATORY - MEDICI [facility] Advance Directives List of completed, amended, or rescinded Advance Directives on record at [facility] facilities. An actual copy of the Directive is not included. Date Advance Directive Provider Source 02/21/2021 ADVANCE DIRECTIVE BEL ESCALANTE
--- NOTE | 2024-10-30 08:26 | A.OFFVIS_ITS ---
Intake Visit Reasons: 6M PSA Intake Note: Patient is present for 6M/PSA Urology Medication:NONE Antibiotic Allergy:SULFA Blood Thinner:ASPIRIN Cash Shortage Investigator Required: No Allergies Codeine Sulfate Adverse Reaction (Unknown, Uncoded 10/30/24 08:27) vomiting HPI Comments Details: Clifford is a pleasant male. He is a patient of Dr. Noel. He is seen for the following urologic conditions. - radiation cystitis Six-month follow-up Has been on aspirin Background of AFib Considering watchman procedure Will require 6 weeks of dual anticoagulation therapy postprocedure Need to discuss with cardiology plan for managing severe bladder hematuria should that occur May benefit from bladder optimization with hyperbaric oxygen therapy prior to Watchman Radiation cystitis Prior admission for hematuria Office cystoscopy with radiation cystitis and healing urethra Prostate cancer PSA 11/04 < 0.1 PFSH Medical History (Updated 09/08/24 @ 10:11 by Franky Segura MD) CAD (coronary artery disease) Prostate cancer Radiation cystitis COVID Bladder mass Atrial fibrillation with rapid ventricular response Paroxysmal atrial flutter Atrial flutter with rapid ventricular response Restless leg syndrome Elevated cholesterol Upper GI bleed Barretts esophagus C. difficile colitis Ileus Abdominal pain Diarrhea Nausea & vomiting Lung nodule < 6cm on CT Small bowel obstruction Diaphragm injury Pelvis fracture Liver laceration Sciatica Surgical History History of prostate biopsy History of total left knee replacement (TKR) Hx of exploratory laparotomy History of exploratory laparotomy History of esophagogastroduodenoscopy (EGD) Hx of colonoscopy H/O ankle fusion H/O knee surgery Family History Mother Colon cancer Sister Pancreatic cancer Social History Household Members: Spouse Housing: House Are you a primary healthcare analyst to a significant other at home: No Do you presently have visiting nurse or other home services: No Alcohol intake: current Alcohol intake frequency: a few times a month Alcohol type: beer 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 Tobacco Use Status: Former Tobacco user Tobacco use type: Cigarette Cigarette Packs Per Day: 1 Second Hand Smoke Exposure: No Substance Use Type: Marijuana Advance Directives Date on File: 11/22/20 service: Yes Current occupational status: disabled Review of Systems Const Denies chills and Denies fever(s) Card Reports no additional complaints and Denies syncope Resp Denies cough GI Denies abdominal pain and Denies heartburn Reports as per HPI and Denies change in libido Neuro Denies syncope Psych Denies change in libido Endo Denies change in libido Physical Exam Const General: cooperative, healthy appearing, comfortable and no acute distress Orientation/consciousness: patient oriented x3 HEENT Face and sinus: Yes normal facial exam Mouth: moist mucous membranes Neck Neck: Yes normal visual inspection, Yes full ROM and Yes trachea midline Chest Chest palpation & inspection: normal inspection of the chest Resp Effort & Inspection: normal respiratory effort, able to speak in complete sentences and no respiratory distress GI Inspection: Yes normal to inspection Back/Spine/Pelvis Cervical Spine: normal cervical lordosis Thoracic/Lumbar Spine: thoracic and lumbar spine normal to inspection Skin General skin exam: no rashes or lesions noted Neuro General: patient oriented x3, gait normal, tone normal and moves all extremities Extrem General: Yes normal to inspection and Yes capillary refill normal Assessment & Plan Assessment & Plan (1) Prostate cancer: Comment: s/p seeding, hormonal therapy, currently under observation Code(s): C61 - Malignant neoplasm of prostate Category: Medical (2) Radiation cystitis: Code(s): N30.40 - Irradiation cystitis without hematuria Category: Medical Plan Continue surveillance Patient Instructions: This note is constructed using voice recognition software. While every effort has been made to ensure accuracy gardener errors may have been included. Imaging studies, laboratory and physical exam results were discussed and re viewed in detail. No major barriers to patient understanding were identified. An opportunity to ask questions regarding the treatment plan was provided. All questions were answered. The patient expressed understanding and agreement with the above treatment plan. The patient is aware they should contact our office by phone for worsening of their current condition or the appearance of new urologic symptoms. Compliance is encouraged with any medications and followup testing that is ordered. It is a privilege to participate in the urologic care of your patient. If you have any questions or concerns regarding treatment for the above conditions, or other urologic issues, please do not hesitate to contact me. The office telephone contact is [phone]. Sincerely, Dr Jeronimo Gasapr MD, [facility] - Urology Compassionate Specialist Care for the Genitourinary System Coding Level of Care Code Est Pt Level 3 (62727) Complex EM visit Add On G2211 Diagnoses Prostate cancer C61 Radiation cystitis N30.40
== END 2024-10-30 08:54 | disposition home or self-care (01) ==
LOC: HO.HUSH 08:16
PROVIDERS: PCP Internal Medicine; Visit Provider Urology
DX: C61 Malignant neoplasm of prostate (principal); N30.40 Irradiation cystitis without hematuria
CPT/HCPCS: 99213; G2211

== ENCOUNTER → 2024-10-30 08:15 | Outpatient (BNVA) | payer OTHER, SELFPAY | PROVIDERS: PCP Internal Medicine; Visit Provider Urology | DX: N30.40 Irradiation cystitis without hematuria (principal); C61 Malignant neoplasm of prostate | CPT/HCPCS: 99212 ==

== ENCOUNTER 2025-01-25 09:17 | Outpatient (AMB) | payer OTHER, SELFPAY ==
[2025-01-25 09:21] VITALS: BP 110/60
--- NOTE | 2025-01-25 09:21 | A.OFFVIS_ITS ---
Vital Signs 01/25/25 09:21 Height 5 ft 8 in Weight 131 lb 6.328 oz BMI 20.0 BP 110/60 Blood Pressure Location Lt brachial Position Sitting Pulse Source Monitor Intake Visit Reasons: 3 mth w/ ekg Intake Note: 3MONTH/ EKG Meter Shop Superintendent Required: No Accompanied by: Spouse Allergies Codeine Sulfate Adverse Reaction (Unknown, Uncoded 10/30/24 08:27) vomiting Medication List - Last Reconciled 01/25/25 by Franky Segura MD amiodarone 200 mg PO DAILY aspirin (Adult Aspirin Regimen) 81 mg PO DAILY atorvastatin 80 mg PO DAILY food supplemt, lactose-reduced 1 ea PO DAILY latanoprost 0.005% 1 drp ophthalmic (eye) BEDTIME lidocaine 5% 1 patch topical DAILY PRN morphine 15 mg PO ONCE PRN naloxone 4 mg/actuation 4 mg intranasal Q3M PRN omeprazole 40 mg PO DAILY@0630 ondansetron 4 mg PO DAILY PRN oxycodone-acetaminophen 5-325 mg (Percocet) 1 tab PO TID PRN HPI Comments Details: Clifford comes for follow-up. He has not had any recurrent prolonged palpitation irregular heartbeat. No lightheadedness, syncope has not had any recurrent urologic bleeding. Denies any exertional chest pain. Exercise on a regular basis. Denies any shortness of breath, orthopnea, PND. COUNT INCLUDES THE [facility] Medical History (Updated 01/25/25 @ 09:55 by Franky Segura MD) CAD (coronary artery disease) Prostate cancer Radiation cystitis COVID Bladder mass Atrial fibrillation with rapid ventricular response Paroxysmal atrial flutter Atrial flutter with rapid ventricular response Restless leg syndrome Elevated cholesterol Upper GI bleed Barretts esophagus C. difficile colitis Ileus Abdominal pain Diarrhea Nausea & vomiting Lung nodule < 6cm on CT Small bowel obstruction Diaphragm injury Pelvis fracture Liver laceration Sciatica Surgical History History of prostate biopsy History of total left knee replacement (TKR) Hx of exploratory laparotomy History of exploratory laparotomy History of esophagogastroduodenoscopy (EGD) Hx of colonoscopy H/O ankle fusion H/O knee surgery Family History Mother Colon cancer Sister Pancreatic cancer Social History Household Members: Spouse Housing: House Are you a primary career developer to a significant other at home: No Do you presently have visiting nurse or other home services: No Alcohol intake: current Alcohol intake frequency: a few times a month Alcohol type: beer 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 Tobacco Use Status: Former Tobacco user Tobacco use type: Cigarette Cigarette Packs Per Day: 1 Second Hand Smoke Exposure: No Substance Use Type: Marijuana Advance Directives Date on File: 11/22/20 service: Yes Current occupational status: disabled Review of Systems Const Denies daytime sleepiness, Denies difficulty sleeping, Denies snoring, Denies stops breathing during sleep and Denies weakness Card Denies chest pain, Denies rapid heart rate, Denies irregular heart rhythm, Denies claudication, Denies leg edema, Denies lightheadedness, Denies palpitations, Reports dyspnea, Denies dyspnea on exertion, Denies orthopnea, Denies paroxysmal nocturnal dyspnea and Denies slow heart rate Resp Denies cough, Reports dyspnea, Denies dyspnea on exertion and Denies snoring GI Reports no additional complaints, Denies hematochezia, Denies change in stool character and Denies dyspepsia Musc Denies abnormal gait, Denies muscle weakness and Denies numbness Neuro Denies abnormal gait, Denies numbness and Denies weakness Endo Denies palpitations Physical Exam Vital Signs: Last Vital Signs BP 110/60 01/25/25 09:21 BMI result Body Mass Index 20.0 Const General: cooperative, comfortable, no acute distress, alert, awake and Physically active Nutritional Appearance: thin Orientation/consciousness: patient oriented x3 Limitations: no limitations Neck Neck: Yes trachea midline, Yes supple and Yes no JVD Resp Effort & Inspection: normal respiratory effort Auscultation: clear to auscultation bilaterally and diminished lung sounds Cardio Jugular venous distension: no JVD Palpation: normal PMI Rate: regular rate Rhythm: regular rhythm Heart sounds: S1 normal heart sound present, S2 normal heart sound present, no click, no gallops, no murmurs and no rubs GI Auscultation: normal bowel sounds Skin General skin exam: no rashes or lesions noted Neuro General: patient oriented x3 and no focal motor deficits Extrem General: Yes no clubbing, cyanosis or edema Psych Appearance: grossly normal Office Procedures EKG Details: EKG shows sinus bradycardia at 47 beats per minute otherwise normal EKG [id number], Complete Assessment & Plan Assessment & Plan (1) Paroxysmal atrial fibrillation: Code(s): I48.0 - Paroxysmal atrial fibrillation Category: Medical Plan: Paroxysmal atrial fibrillation this elderly gentleman without any recurrent events on amiodarone. His CHADSVASc score if 4, in his annual risk for thromboembolic complications about 7%. This was discussed with him. However he has significant neurologic source of bleeding with his prior history of radiation cystitis. This has made him a poor candidate for oral anticoagulation therapy. We had discussed about Watchman device although this will require temporary oral anticoagulation for at least 6 weeks and dual antiplatelet therapy for 6 months. At this point time given his unpredictable risk of bleeding, Watchman device could pose her increased risk if his oral anticoagulation therapy has to be interrupted. This was discussed with him in clear terms. Both him in his want to pursue no further interventions at this time including Watchman device. They understand the risk. Continue low- dose aspirin therapy for now. Avoidance of stimulants was discussed. Continue rhythm control approach. Will check for amiodarone toxicity (2) Sinus bradycardia: Code(s): R00.1 - Bradycardia, unspecified Category: Medical Plan: Asymptomatic sinus bradycardia most likely due to pharmacotherapy. Current point time he is currently not having any symptoms related to it. No pacing therapy indicated. Continue monitor clinically. (3) CAD (coronary artery disease): Code(s): I25.10 - Atherosclerotic heart disease of lime coronary artery without angina pectoris Category: Medical Plan: Coronary artery disease significant circumflex disease. Continue aggressive medical therapy. Currently on low-dose aspirin therapy. Continue rhythm control approach. Continue high-intensity statin therapy with target goal LDL less than 70 mg/dL. Continue aggressive blood pressure control which is currently well optimized. Will follow up in the clinic in 6 months time, sooner PRN. Thank you for allowing me to partake in his care Orders: Orders XR chest 2V Today I48.0 - Paroxysmal atrial fibrillation Complete Blood Count no Diff Today I48.0 - Paroxysmal atrial fibrillation Liver Panel Today I48.0 - Paroxysmal atrial fibrillation Basic Metabolic Panel Today I48.0 - Paroxysmal atrial fibrillation TSH reflex Free T4 Today I48.0 - Paroxysmal atrial fibrillation Coding Level of Care Code Est Pt Level 4 (32364) Complex EM visit Add On G2211 Diagnoses Paroxysmal atrial fibrillation I48.0 Sinus bradycardia R00.1 CAD (coronary artery disease) I25.10 CPT Codes EKG - CPT: 80298-[id number], Complete ([id number])
--- OUTSIDE RECORDS SUMMARY | 2025-01-25 10:56 | XMS_ITS | Patient Health Record ---
Author Organization [facility] Address [address] [place] [address] Care Team Providers Care Rehabilitation Services Coordinator Name Role Phone Ning Maher MD Primary Care Provider Unavailfalguni e Teja Barraza Jr Unavailable [phone] Juan M MEHTA, Leighton Unavailable Unavailable Allergies Allergen (clinical drug ingredient) Drug/Non Drug Allergy documented on EMR Reaction Allergy Type Onset Date Status Codeine Phosphate Unknown Drug Allergy Active Reason For Referral No Information Medications Medication SIG (Take, Route, Frequency, Duration) Notes [...] Orally t wo times a day Active Immunizations Vaccine Route Administration Date Status Comme nts Flu vaccine no Preserv 3 and > Unknown 02/23/2015 Admin istered Problems Problem Type SNOMED Code ICD Code Onset Dates Problem Status W/U Status Risk Notes Problem 186273124 Personal history of colonic polyps (Z86.010) Active confirmed Problem 651727853 Barretts esophagus without dysplasia (K22.70) Active confirmed Problem 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 Problem 26166580 Diarrhea, unspecified type (R19.7) Active confirmed Plan Of Treatment Pending Test Test Name Order Date C DIFFICILE RFLX PCR 04/04/2021 Future Test Test Name Order Date UPPER GI ENDOSCOPY 02/25/2013 UPPER GI ENDOSCOPY 01/25/2016 COLONOSCOPY 01/25/2016 Insurance Providers Payer Name Payer Address Payer Phone Subscriber Number Group Number Insured Name Patient Relationship to Insured Coverage Start Date Coverage End Date [facility] [address] [address] [place] [address] [id number] SHAQ JONES Self - patient is the insured Medical (General) History Medical History History ICD Code upper endoscopy [...]
== END 2025-01-25 09:49 | disposition home or self-care (01) ==
LOC: HO.HCS 09:17
PROVIDERS: PCP Internal Medicine; Visit Provider Internal Medicine Cardiovascular Disease
DX: I48.0 Paroxysmal atrial fibrillation (principal); R00.1 Bradycardia, unspecified; I25.10 Atherosclerotic heart disease of native coronary artery without angina pectoris
CPT/HCPCS: 93010; 99214; G2211

== ENCOUNTER → 2025-01-25 09:17 | Outpatient (BNVA) | payer OTHER, SELFPAY | PROVIDERS: PCP Internal Medicine; Visit Provider Internal Medicine Cardiovascular Disease | DX: I48.0 Paroxysmal atrial fibrillation (principal); I25.10 Atherosclerotic heart disease of native coronary artery without angina pectoris; R00.1 Bradycardia, unspecified | CPT/HCPCS: 93005; 99212 ==

== ENCOUNTER 2025-01-29 06:03 | Outpatient (REF) | payer OTHER, SELFPAY ==
--- NOTE | ~2025-01-29 | XR_ITS ---
EXAMINATION: XR CHEST 2 VIEWS HISTORY: I48.0 - Paroxysmal atrial fibrillation COMPARISON: Comparison is made with the prior examination dated 06/15/2023. FINDINGS: PA and lateral views of the chest are submitted. The lungs are expanded and clear. There is no pleural effusion, pneumothorax, or pulmonary vascular congestion. The heart is normal in size. There is degenerative disc disease of the spine. Calcification overlying the right scapula may represent a loose body in the subcoracoid recess. XR/XR chest 2V IMPRESSION: No acute cardiopulmonary abnormality. Electronically signed by: Gigi Christensen MD 01/29/2025 07:10 AM EDT
[2025-01-29 07:45] LABS: Hematocrit 40.6 % (42.0-52.0); Hemoglobin 13.2 g/dl (14.0-18.0); Mean Corpuscular HGB Conc 32.5 g/dl (31.0-36.0); Mean Corpuscular Hemoglobin 29.1 pg (27.0-33.0); Mean Corpuscular Volume 89.4 fL (80.0-98.0); NRBC Abs Auto 0.000 X10*3/uL (0.0-0.012); NRBC Pct Auto 0.0 /100WBC (0.0-0.2); Platelet Count 254 X10*3/uL (160-400); Red Blood Count 4.54 X10*6/uL (4.60-5.80); White Blood Count 9.6 X10*3/uL (4.8-10.8)
[2025-01-29 08:26] LABS: Alanine Aminotransferase 29 U/L (0-40); Albumin Level 4.1 g/dL (3.5-5.0); Alkaline Phosphatase 145 U/L (39-117); Anion Gap 10 (12-20); Aspartate Amino Transferase 35 U/L (5-37); Blood Urea Nitrogen 18 mg/dL (9-16); Calcium 8.9 mg/dL (8.4-10.2); Carbon Dioxide 31 mmol/L (22-29); Chloride 104 mmol/L (96-108); Estimated Glomerular Filt Rate > 60; Potassium 4.1 mmol/L (3.3-5.1); Sodium 141 mmol/L (135-145); Total Protein 6.3 g/dL (6.5-8.0)
== END 2025-01-29 06:04 | disposition home or self-care (01) ==
LOC: HO.XRAY 06:03
PROVIDERS: PCP Internal Medicine; Visit Provider Internal Medicine Cardiovascular Disease
DX: I48.0 Paroxysmal atrial fibrillation (principal)
CPT/HCPCS: 36415; 71046; 80048; 80076; 84443; 85027

== ENCOUNTER → 2025-01-29 06:14 | Outpatient (BNV) | payer OTHER, SELFPAY | PROVIDERS: PCP Internal Medicine; Visit Provider Radiology Diagnostic Radiology | DX: I48.0 Paroxysmal atrial fibrillation (principal) | CPT/HCPCS: 71046 ==